=== PATIENT | male | born 1940 | race Caucasian/White ===

== ENCOUNTER 2018-09-28 11:08 | Inpatient (IN) | payer MEDICARE ==
[2018-09-28 11:17] VITALS: BMI 15.3
[2018-09-28] MEDS ORDERED: Sodium Chloride 0.9% 1,000 ML IV ONE (11:22)
[2018-09-28] MEDS ORDERED: Sodium Chloride 0.9% 1,000 ML ONE (11:47)
[2018-09-28 11:55] LABS: INR 1.2; PROTHROMBIN TIME 12.9 SECONDS (9.7-12.2)
[2018-09-28] MEDS ORDERED: cefTRIAXone IV 1 gm in Dextros 50 ML IV ONE (12:06)
[2018-09-28] MEDS ORDERED: Azithromycin 500 MG in Sodium Chloride 0.9% 250 ML IVPB STA (12:06)
[2018-09-28 12:13] LABS: MEAN CELL VOLUME 86.2 fL (80.0-94.0); MEAN CORPUSCULAR HGB CONC 31.3 g/dL (33.0-37.0); MEAN PLATELET VOLUME 11.1 fL (7.2-11.7); RBC 1.69 Mil/uL (4.40-5.90); RED CELL DISTRIBUTION WIDTH 18.2 % (11.5-14.5); WHITE BLOOD COUNT 2.8 K/uL (4.8-10.8)
[2018-09-28 12:17] LABS: B-TYPE NATRIURETIC PEPTIDE 2530 pg/mL (0-900)
[2018-09-28 12:22] LABS: HEMOGLOBIN 4.6 g/dL (12.0-18.0); PLATELET COUNT 13 K/uL (130-400)
[2018-09-28 12:23] LABS: ALB/GLOB RATIO 0.9 (1.0-2.1); ALBUMIN 2.7 g/dL (3.5-5.0); ALT/SGPT 30 U/L (21-72); AST/SGOT 40 U/L (17-59); BLOOD UREA NITROGEN 26 mg/dL (9-20); GFR NON-AFRICAN AMERICAN 59
[2018-09-28] MEDS ORDERED: Azithromycin 500mg/250ML NS 500 MG/250 ML BAG IVPB ONE (12:38)
[2018-09-28] MEDS ORDERED: cefTRIAXone 1 gm 1 GM/100 ML BAG IVPB ONE (12:39)
[2018-09-28] MEDS ORDERED: Iodixanol 320 MG/ML 100 ML BOTTLE IV ONE (12:48)
[2018-09-28 12:49] LABS: NEUT # 0.6 K/uL (1.8-7.0)
[2018-09-28 12:50] LABS: LYMPH # 0.5 K/uL (1.0-4.3); MONO # 1.7 K/uL (0.0-0.8)
[2018-09-28 13:01] LABS: BANDS 2 % (0-2); NEUTROPHIL 22 % (50-75); NUCLEATED RED BLOOD CELL 19 % (0-0); REACTIVE LYMPHOCYTES 4 % (0-0); TOTAL CELLS COUNTED 50
[2018-09-28 13:02] LABS: ANISOCYTOSIS MODERATE; HYPOCHROMIC MODERATE; MICROCYTOSIS SLIGHT; PLATELET ESTIMATE MARKEDLY DECREASED (NORMAL); POIKILOCYTOSIS MODERATE
[2018-09-28 13:03] LABS: ACANTHOCYTES SLIGHT; OVALOCYTES SLIGHT; TARGET CELLS SLIGHT; TEARDROP CELLS SLIGHT
[2018-09-28 13:04] LABS: LARGE PLATELETS PRESENT; LYMPHOCYTE 30 % (20-40); MONOCYTE 42 % (0-10); POLYCHROMIC SLIGHT
--- NOTE | 2018-09-28 13:12 | C.PDOC ---
History Of Present Illness 77 y/o male presents to the ER for evaluation after he was found to have hemoglobin levels 5.5 by his PMD. His PMD, Dr. Krissy Zuniga referred him to the ER. Patient states that Denies having fever, chills, CP, SOB, and other com plaints at this time. Of note, patient has history of cigarette smoking, he quit 10 years ago. Time Seen by Provider: 09/28/18 11:19 Chief Complaint (Nursing): Syncope History Per: Patient History/Exam Limitations: no limitations Onset/Duration Of Symptoms: Days Current Symptoms Are (Timing): Still Present Past Medical History Reviewed: Historical Data, Nursing Documentation, Vital Signs Vital Signs: Last Vital Signs Temp 97.5 F L 09/28/18 11:17 Pulse 115 H 09/28/18 11:17 Resp 18 09/28/18 11:25 BP 116/45 L 09/28/18 11:17 Pulse Ox 100 09/28/18 11:25 - Medical History PMH: No Chronic Diseases Surgical History: No Surg Hx Family History: States: No Known Family Hx - Social History Hx Alcohol Use: No Hx Substance Use: No - Immunization History Hx Tetanus Toxoid Vaccination: No Hx Influenza Vaccination: No Hx Pneumococcal Vaccination: No Review Of Systems Except As Marked, All Systems Reviewed And Found Negative. Constitutional: Positive for: Weakness. Negative for: Fever, Chills Cardiovascular: Negative for: Chest Pain Respiratory: Negative for: Shortness of Breath Physical Exam - Physical Exam Appears: Chronically Ill, Other (emaciated) Skin: Normal Color, Warm, Dry Head: Other (bilateral temporal wasting) Eye(s): bilateral: Normal Inspection Nose: Normal Oral Mucosa: Moist Neck: Supple Chest: Symmetrical Cardiovascular: Rhythm Regular Respiratory: Normal Breath Sounds, No Rales, No Rhonchi, No Wheezing Gastrointestinal/Abdominal: Soft, No Tenderness, No Guarding, No Rebound, Other (thin abdomen) Extremity: Normal ROM, Other (no edema to bilateral lower extremities) Neurological/Psych: Oriented x3, Normal Speech ED Course And Treatment - Laboratory Results Result Diagrams: 09/28/18 12:10 09/28/18 11:39 Lab Interpretation: Abnormal (occult stool blood +) ECG: Interpreted By Pr ECG Rhythm: Sinus Tachycardia ECG Interpretation: Abnormal Rate From EC O2 Sat by Pulse Oximetry: 100 (RA) Pulse Ox Interpretation: Normal - Radiology CXR: Interpreted by Me CXR Interpretation: Yes: Infiltrates (? RUL PNA vs mass) Progress Note: Labs, CXR, and UA ordered. Patient treated with IV Fluids and Rocephin IV. Reevaluation Time: 14:54 Reassessment Condition: Improved - Physician Consult Information Outcome Of Conversation: 1445: d/w Dr. Montoya- Medicine Vending Machine Attendant, covering pt's for Dr. Yanez. ok to tele Obs Medical Decision Making Medical Decision Making: RUL PNA empiric abx RUL Mass noted on CT no PE heme/onc consult consider bronchoscopy Symptomatic anemia hgb 4.5 Blood tx's started in ED GIB Guaiac + Consider gastritis vs lower GIB, ie colon CA as primary Protonix IV empirically Code Status: d/w pt and roderick @ bedside FULL CODE for now Disposition Doctor Will See Patient In The: Hospital Counseled Patient/Family Regarding: Studies Performed, Diagnosis - Disposition Disposition: HOSPITALIZED Disposition Time: 14:58 Condition: FAIR Forms: [facility] ([place]) - Clinical Impression Clinical Impression: Lung mass, Pneumonia, Symptomatic anemia - Scribe Statement The provider has reviewed the documentation as recorded by the Kalee Valle Provider Attestation: All medical record entries made by the Scribe were at my direction and personally dictated by me. I have reviewed the chart and agree that the record accurately reflects my personal performance of the history, physical exam, medical decision making, and the department course for this patient. I have also personally directed, reviewed, and agree with the discharge instructions and disposition.
--- NOTE | 2018-09-28 13:25 | RAD ---
Date of service: 09/28/2018 PROCEDURE: CHEST RADIOGRAPH, 1 VIEW HISTORY: SOB COMPARISON: None available. FINDINGS: LUNGS: Right upper lobe traction bronchiectasis with coalescing patchy pleural parenchymal opacity-; infiltrate, mass, scar or combination of the above are considerations. Granulomatous changes right mid and lower lung zone. Perihilar bullous emphysematous like changes. PLEURA: No pneumothorax or pleural fluid seen. CARDIOVASCULAR: There is presence of aortic atherosclerotic calcification on x-ray. Mild cardiomegaly. No suspect pulmonary venous congestion OSSEOUS STRUCTURES: No significant abnormalities. VISUALIZED UPPER ABDOMEN: Normal. OTHER FINDINGS: None. IMPRESSION: Right upper lobe traction bronchiectasis with the probable granulomatous disease. Concomitant right pleural parenchymal pathology here suggested-infiltrate, mass, scar or combination of the above are considerations. Consider CT for further evaluation Other findings as above.
--- NOTE | 2018-09-28 14:17 | CT ---
Date of service: 09/28/2018 CTA chest PE protocol Indication: RUL PNA, ? pericardial effusion, ? CA/mets Technique: Contiguous axial images were obtained through the chest with intravenous contrast enhancement. Sagittal and coronal reconstructions were generated and reviewed. This CT exam was performed using 1 or more of the following dose reduction techniques: Automated exposure control, adjustment of the MAA and/or kV according to patient size, and/or use of iterative reconstruction technique. IV contrast: 100 mL Visipaque 320 Radiation dose (DLP): 205.13 MGy-cm. Comparison: Chest x-ray performed 09/28/18 Findings: Cardiomegaly. Small pericardial effusion. Atherosclerotic calcifications of the aorta. No large central or segmental pulmonary embolus evident. Emphysematous changes. Biapical pleural thickening. Bilateral upper lobe bulla. Abnormal right upper lobe spiculated/irregular opacities possibly malignant neoplasm or consolidation such as pneumonia. Calcifications are evident in this region, as are ground-glass opacities and bronchiectasis. Evidence of chronic interstitial fibrosis. Small bilateral pleural effusions and dependent atelectasis. No pneumothorax. Nodular opacities measuring approximately 6 mm in the left upper lobe (series 4, image 34) and 3 mm in the lingula (64). More localized ground-glass opacities noted in the left lower lobe (image 75). Limited visualized portions of the upper abdomen: Bilateral adrenal gland hypertrophy. Small hiatal hernia/distal esophageal wall thickening. 4 mm T11 vertebral body sclerotic focus, possibly bone island. Osseous demineralization. Degenerative changes. Impression: No large central or segmental pulmonary embolus identified. Abnormal appearance of the right upper lobe as described above. Recommend comparison to prior outside imaging. Malignant neoplasm or pneumonia remain considerations. Correlate with clinical status. Nodular opacities measuring approximately 6 mm in the left upper lobe and 3 mm in the lingula. More localized ground-glass rounded opacity noted in the left lower lobe. Recommend further evaluation with biopsy, PET- CT, or follow-up CT at 3 months, and 9 months, and 24 months. Evidence of prior granulomatous infection. Evidence of chronic interstitial fibrosis. Bilateral adrenal gland hypertrophy. 4 mm T11 vertebral body sclerotic focus, possibly bone island. Additional findings as above.
--- NOTE | 2018-09-28 15:58 | CP.PCM.HP ---
History of Present Illness - History of Present Illness History of Present Illness: H&P for Dr. Montoya 77y M w/ no PMHx presented to ED following referral by PMD for low Hgb. Pt states he has been feeling weak and fatigue for the past couple of weeks. It has slowly increased in intensity that prompted a visit to his PMD. Patient had blood work performed yesterday and was notified today that he should come to the ED for low Hgb. Patient states he has had normal 1 to 2 normal bowel movements per day, with no dark tarry or bloody stools present. Patient admits to a approximately 5 lb weight loss over the past week with a decreased sense of appetite. Additionally patient denies any nausea or vomiting. Patient states he has had a dry, non productive cough for the past couple of weeks associated with subjective fevers and chills. After taking OTC cold medication, patient admits to resolution of the symptoms. Patient denies chest pain, abdominal pain, nausea, vomiting, SOB, headaches, vision changes, diarrhea, constipation. PMD: Rosa Zuniga PMHx: Denies Meds: Denies PSHx: Denies Allergies: NKDA Social: smoked cigarets for 30+ years, denies ETOH, drug use FHx: Mother naturally Father: complications 2/2 to smoking Full Code Family Contact Information: : [place] [phone] Daughter: Noemy [phone] Daughter Maggi [phone] Present on Admission - Present on Admission Any Indicators Present on Admission: No Review of Systems - Constitutional Constitutional: Chills, Fever, Weight Loss, Weakness. absent: Headache - EENT Eyes: absent: Blurred Vision Ears: absent: Decreased Hearing, Ear Discharge Nose/Mouth/Throat: absent: Bleeding Gums, Mouth Pain - Cardiovascular Cardiovascular: absent: Chest Pain, Leg Edema, Lightheadedness, Pedal Edema - Respiratory Respiratory: absent: Dyspnea, Hemoptysis, Wheezing - Gastrointestinal Gastrointestinal: absent: Abdominal Pain, Constipation, Diarrhea, Loose Stools, Melena, Vomiting - Genitourinary Genitourinary: absent: Change in Urinary Stream, Hematuria, Urinary Frequency - Musculoskeletal Musculoskeletal: absent: Abnormal Gait, Arthralgias - Integumentary Integumentary: absent: Bleeding Lesions - Neurological Neurological: Weakness. absent: Burning Sensations, Numbness, Headaches, Loss of Vision - Psychiatric Psychiatric: absent: Behavioral Changes, Confusion, Depression - Endocrine Endocrine: absent: Heat Intolorance, Polydipsia, Polyuria Past Patient History - Infectious Disease Hx of Infectious Diseases: None - Past Social History Smoking Status: Former Smoker - PSYCHIATRIC Hx Substance Use: No - SURGICAL HISTORY Hx Surgeries: No - ANESTHESIA Hx Anesthesia: No Meds Allergies/Adverse Reactions: Allergies Allergy/AdvReac Type Severity Reaction Status Date / Time No Known Allergies Allergy Verified 09/28/18 11:16 Physical Exam - Constitutional Appears: Non-toxic - Head Exam Head Exam: ATRAUMATIC, NORMAL INSPECTION, NORMOCEPHALIC - Eye Exam Eye Exam: EOMI, Normal appearance Pupil Exam: NORMAL ACCOMODATION, PERRL Additional comments: pale sclera - ENT Exam ENT Exam: Mucous Membranes Moist - Neck Exam Neck exam: Negative for: Lymphadenopathy - Respiratory Exam Respiratory Exam: Clear to Auscultation Bilateral, NORMAL BREATHING PATTERN. absent: Chest Wall Tenderness, Rales, Rhonchi, Wheezes - Cardiovascular Exam Cardiovascular Exam: +S1, +S2. absent: Systolic Murmur - GI/Abdominal Exam GI & Abdominal Exam: Normal Bowel Sounds, Soft. absent: Tenderness - Rectal Exam Rectal Exam: absent: Bloody Stool, Hemorrhoids Additional comments: Skin tag/flap para anal region No mass protrubrance No palpable masses - Extremities Exam Extremities exam: Positive for: full ROM, normal inspection. Negative for: calf tenderness, pedal edema - Back Exam Back exam: absent: CVA tenderness (L), CVA tenderness (R) - Neurological Exam Neurological exam: Alert, Normal Gait, Oriented x3 - Psychiatric Exam Psychiatric exam: Normal Affect, Normal Mood - Skin Skin Exam: Dry, Normal Color, Warm Results - Vital Signs Recent Vital Signs: Last Vital Signs Temp 99.1 F 09/28/18 15:20 Pulse 91 H 09/28/18 15:20 Resp 18 09/28/18 11:25 BP 112/43 L 09/28/18 15:20 Pulse Ox 100 09/28/18 15:20 - Labs Result Diagrams: 09/28/18 12:10 09/28/18 11:39 Labs: Laboratory Results - last 24 hr 09/28/18 09/28/18 09/28/18 11:39 11:39 11:39 WBC RBC Hgb Hct MCV MCH MCHC RDW Plt Count MPV Neut % (Auto) Lymph % (Auto) [place] % (Auto) Eos % (Auto) Baso % (Auto) Neut # (Auto) Lymph # (Auto) [place] # (Auto) Eos # (Auto) Baso # (Auto) Neutrophils % (Manual) Band Neutrophils % Lymphocytes % (Manual) Reactive Lymphs % Monocytes % (Manual) Nucleated RBC % Platelet Estimate Large Platelets Polychromasia Hypochromasia (manual) Poikilocytosis (manual Anisocytosis (manual) Microcytosis (manual) Target Cells Tear Drop Cells Ovalocytes Acanthocytes (Spur) PT 12.9 H INR 1.2 APTT 25 D-Dimer, Quantitative 1375 H Sodium 133 Potassium 4.3 Chloride 101 Carbon Dioxide 22 Anion Gap 14 BUN 26 H Creatinine 1.2 Est GFR ( Amer) > 60 Est GFR (Non-Af Amer) 59 Random Glucose 134 H Calcium 8.0 L Total Bilirubin 0.7 AST 40 ALT 30 Alkaline Phosphatase 80 Troponin I 0.0150 NT-Pro-B Natriuret Pep 2530 H Total Protein 5.7 L Albumin 2.7 L Globulin 3.0 Albumin/Globulin Ratio 0.9 L Stool Occult Blood Blood Type B POSITIVE Blood Type Confirm B POSITIVE Antibody Screen Negative 09/28/18 09/28/18 12:10 14:32 WBC 2.8 L RBC 1.69 L Hgb 4.6 L* Hct 14.6 L MCV 86.2 MCH 27.0 MCHC 31.3 L RDW 18.2 H Plt Count 13 L* MPV 11.1 Neut % (Auto) 23.0 L Lymph % (Auto) 17.0 L [place] % (Auto) 60.0 H Eos % (Auto) 0.0 Baso % (Auto) 0.0 Neut # (Auto) 0.6 L Lymph # (Auto) 0.5 L [place] # (Auto) 1.7 H Eos # (Auto) 0.0 Baso # (Auto) 0.0 Neutrophils % (Manual) 22 L Band Neutrophils % 2 Lymphocytes % (Manual) 30 Reactive Lymphs % 4 H Monocytes % (Manual) 42 H Nucleated RBC % 19 H Platelet Estimate Markedly decreased L Large Platelets Present Polychromasia Slight Hypochromasia (manual) Moderate Poikilocytosis (manual Moderate Anisocytosis (manual) Moderate Microcytosis (manual) Slight Target Cells Slight Tear Drop Cells Slight Ovalocytes Slight Acanthocytes (Spur) Slight PT INR APTT D-Dimer, Quantitative Sodium Potassium Chloride Carbon Dioxide Anion Gap BUN Creatinine Est GFR ( Amer) Est GFR (Non-Af Amer) Random Glucose Calcium Total Bilirubin AST ALT Alkaline Phosphatase Troponin I NT-Pro-B Natriuret Pep Total Protein Albumin Globulin Albumin/Globulin Ratio Stool Occult Blood Positive H Blood Type Blood Type Confirm Antibody Screen Assessment & Plan - Assessment and Plan (Free Text) Assessment: 77 y M w/ no PMHx: presents to ED for weakness, in ED found to be pancytopenic: Pancytopenia - WBC 2.8, Hgb 4.6, Plt 13 - 1 X PRBC in ED - 2 X PRBC ordered & 1 plt - CT: Emphysematous changes. Biapical pleural thickening. Bilateral upper lobe bulla. Abnormal right upper lobe spiculated/irregular opacities possibly maligna nt neoplasm or consolidation such as pneumonia. Calcifications are evident in this region, as are ground-glass opacities and bronchiectasis. Evidence of chronic interstitial fibrosis. Small bilateral pleural effusions and dependent atelectasis. No pneumothorax. Nodular opacities measuring approximately 6 mm in the left upper lobe (series 4, image 34) and 3 mm in the lingula (64). More localized ground-glass opacities noted in the left lower lobe (image 75). Limited visualized portions of the upper abdomen: Bilateral adrenal gland hypertrophy. Small hiatal hernia/distal esophageal wall thickening. No large central or segmental pulmonary embolus identified. Correlate with clinical status. Nodular opacities measuring approximately 6 mm in the left upper lobe and 3 mm in the lingula. More localized ground-glass rounded opacity noted in the left lower lobe. Recommend further evaluation with biopsy, PET- CT, or follow-up CT at 3 months, and 9 months, and 24 months. - CXR: Right upper lobe traction bronchiectasis with the probable granulomatous disease. Concomitant right pleural parenchymal pathology here suggested- infiltrate, mass, scar or combination of the above are considerations. Consider CT for further evaluation - F/u Heme/Onc Dr. Bobby recs - F/u GI Dr. Cox recs - F/u critical care, Dr. Thurtson recs - F/u HIV - F/u sputum sample - F/u legionella - F/u strep pneumo - F/u mycoplasma - F/u quantiferon gold - F/u procal - F/u ESR GI Bleed - Stool occult positive - Hgb 4.6 - protonox 40mg IVP daily - NPO - F/u GI Dr. Cox recs LBBB - EKG reveals LBBB, unsure if new onset - currently asymptomatic - trops X 1 negative - will consider cardiology consult Prophylaxis - DVT contraindicated due to GI bleed - GI: protonix 40 mg IVP will d/w Dr. Lindsay Costello, PGY1
[2018-09-28 16:10] LABS: SQUAMOUS EPITHIAL < 1 /hpf (0-5); URINE BILIRUBIN NEGATIVE (NEGATIVE); URINE BLOOD NEGATIVE (NEGATIVE); URINE CLARITY Clear (Clear); URINE COLOR Yellow (YELLOW); URINE GLUCOSE (UA) NORMAL (Normal); URINE LEUKOCYTE ESTERASE NEG Leu/uL (Negative); URINE PROTEIN NEGATIVE (NEGATIVE); URINE UROBILINOGEN NORMAL mg/dL (0.2-1.0)
[2018-09-28 16:16] LABS: GRANULAR CAST 2 /lpf (0-1)
--- NOTE | 2018-09-28 18:14 | CP.PCM.CON ---
History of Present Illness - History of Present Illness History of Present Illness: reason for consultation: lung mass 77-year-old male with no significant past medical history presented to emergency room complaining of fatigue and generalized weakness for the past few weeks. In the emergency room patient found to be pancytopenic. CAT scan of the chest consistent with right upper lung spiculated mass, infiltrateand bronchiectasis. Patient denies fever or chills, denies night sweats. Complaining of dry cough that is both during the day and at night PMHx: Denies Meds: Denies PSHx: Denies Allergies: NKDA Social: smoked cigarets for 30+ years, denies ETOH, drug use FHx: Mother naturally Father: complications 2/2 to smoking Review of Systems - Review of Systems All systems: reviewed and no additional remarkable complaints except - Constitutional Constitutional: Fatigue (complaining of dry cough) Past Patient History - Infectious Disease Hx of Infectious Diseases: None - Past Medical History & Family History Past Medical History?: Yes - Past Social History Smoking Status: Former Smoker - CARDIAC Hx Cardiac Disorders: No - PULMONARY Hx Respiratory Disorders: No - NEUROLOGICAL Hx Neurological Disorder: No - HEENT Hx HEENT Problems: No - ENDOCRINE/METABOLIC Hx Endocrine Disorders: No - HEMATOLOGICAL/ONCOLOGICAL Hx Blood Disorders: Yes Other/Comment: Hgb 4.6 - INTEGUMENTARY Hx Dermatological Problems: No - MUSCULOSKELETAL/RHEUMATOLOGICAL Hx Musculoskeletal Disorders: No - GASTROINTESTINAL Hx Gastrointestinal Disorders: Yes Other/Comment: (+) stool occult blood - GENITOURINARY/GYNECOLOGICAL Hx Genitourinary Disorders: No - PSYCHIATRIC Hx Substance Use: No - SURGICAL HISTORY Hx Surgeries: No - ANESTHESIA Hx Anesthesia: No Meds Allergies/Adverse Reactions: Allergies Allergy/AdvReac Type Severity Reaction Status Date / Time No Known Allergies Allergy Verified 09/28/18 11:16 - Medications Medications: Current Medications Azithromycin 500 mg/ Sodium (Chloride) 250 mls @ 250 mls/hr IVPB DAILY ELDA; Protocol Ceftriaxone Sodium (Rocephin Iv 1 Gm Duplex) 50 mls @ 100 mls/hr IVPB Q12H ELDA; Protocol Physical Exam - Head Exam Head Exam: ATRAUMATIC, NORMOCEPHALIC - ENT Exam ENT Exam: Mucous Membranes Moist - Neck Exam Neck exam: Positive for: Normal Inspection - Respiratory Exam Respiratory Exam: Decreased Breath Sounds - Cardiovascular Exam Cardiovascular Exam: REGULAR RHYTHM - GI/Abdominal Exam GI & Abdominal Exam: Normal Bowel Sounds, Soft Results - Vital Signs Recent Vital Signs: Last Vital Signs Temp 98.6 F 09/28/18 16:45 Pulse 87 09/28/18 16:45 Resp 18 09/28/18 16:45 BP 105/57 L 09/28/18 16:45 Pulse Ox 100 09/28/18 17:04 - Labs Result Diagrams: 09/29/18 02:30 09/29/18 07:11 Labs: Laboratory Results - last 24 hr 09/28/18 09/28/18 09/28/18 11:39 11:39 11:39 WBC RBC Hgb Hct MCV MCH MCHC RDW Plt Count MPV Neut % (Auto) Lymph % (Auto) [place] % (Auto) Eos % (Auto) Baso % (Auto) Neut # (Auto) Lymph # (Auto) [place] # (Auto) Eos # (Auto) Baso # (Auto) Neutrophils % (Manual) Band Neutrophils % Lymphocytes % (Manual) Reactive Lymphs % Monocytes % (Manual) Nucleated RBC % Platelet Estimate Large Platelets Polychromasia Hypochromasia (manual) Poikilocytosis (manual Anisocytosis (manual) Microcytosis (manual) Target Cells Tear Drop Cells Ovalocytes Acanthocytes (Spur) PT 12.9 H INR 1.2 APTT 25 D-Dimer, Quantitative 1375 H Sodium 133 Potassium 4.3 Chloride 101 Carbon Dioxide 22 Anion Gap 14 BUN 26 H Creatinine 1.2 Est GFR ( Amer) > 60 Est GFR (Non-Af Amer) 59 Random Glucose 134 H Calcium 8.0 L Total Bilirubin 0.7 AST 40 ALT 30 Alkaline Phosphatase 80 Troponin I 0.0150 NT-Pro-B Natriuret Pep 2530 H Total Protein 5.7 L Albumin 2.7 L Globulin 3.0 Albumin/Globulin Ratio 0.9 L Urine Color Urine Clarity Urine pH Ur Specific [place] Urine Protein Urine Glucose (UA) Urine Ketones Urine Blood Urine Nitrate Urine Bilirubin Urine Urobilinogen Ur Leukocyte Esterase Urine WBC (Auto) Urine RBC (Auto) Ur Squamous Epith Cells Granular Casts (Auto) Stool Occult Blood Blood Type B POSITIVE Blood Type Confirm B POSITIVE Antibody Screen Negative 09/28/18 09/28/18 09/28/18 12:10 14:32 15:54 WBC 2.8 L RBC 1.69 L Hgb 4.6 L* Hct 14.6 L MCV 86.2 MCH 27.0 MCHC 31.3 L RDW 18.2 H Plt Count 13 L* MPV 11.1 Neut % (Auto) 23.0 L Lymph % (Auto) 17.0 L [place] % (Auto) 60.0 H Eos % (Auto) 0.0 Baso % (Auto) 0.0 Neut # (Auto) 0.6 L Lymph # (Auto) 0.5 L [place] # (Auto) 1.7 H Eos # (Auto) 0.0 Baso # (Auto) 0.0 Neutrophils % (Manual) 22 L Band Neutrophils % 2 Lymphocytes % (Manual) 30 Reactive Lymphs % 4 H Monocytes % (Manual) 42 H Nucleated RBC % 19 H Platelet Estimate Markedly decreased L Large Platelets Present Polychromasia Slight Hypochromasia (manual) Moderate Poikilocytosis (manual Moderate Anisocytosis (manual) Moderate Microcytosis (manual) Slight Target Cells Slight Tear Drop Cells Slight Ovalocytes Slight Acanthocytes (Spur) Slight PT INR APTT D-Dimer, Quantitative Sodium Potassium Chloride Carbon Dioxide Anion Gap BUN Creatinine Est GFR ( Amer) Est GFR (Non-Af Amer) Random Glucose Calcium Total Bilirubin AST ALT Alkaline Phosphatase Troponin I NT-Pro-B Natriuret Pep Total Protein Albumin Globulin Albumin/Globulin Ratio Urine Color Yellow Urine Clarity Clear Urine pH 5.0 Ur Specific [place] 1.033 H Urine Protein Negative Urine Glucose (UA) Normal Urine Ketones Trace Urine Blood Negative Urine Nitrate Negative Urine Bilirubin Negative Urine Urobilinogen Normal Ur Leukocyte Esterase Neg Urine WBC (Auto) 1 Urine RBC (Auto) 1 Ur Squamous Epith Cells < 1 Granular Casts (Auto) 2 Stool Occult Blood Positive H Blood Type Blood Type Confirm Antibody Screen Assessment & Plan (1) Lung mass Status: Acute Comment: biopsy once thrombocytopenia corrected. Sputum for culture and sensitivity. Transfuse packed RBCs and platelets. Sputum AFB. Bone marrow biopsy (2) Pancytopenia Status: Acute (3) Pneumonia Status: Acute
[2018-09-28] MEDS ORDERED: Albuterol-Ipratrop 3 mg / 0.5 (3 ml) UD INH PRN (19:21)
[2018-09-29] MEDS: cefTRIAXone IV 1 gm in Dextros 50 ML IVPB SCH ×2 (01:28→14:00)
[2018-09-29 02:35] LABS: HEMOGLOBIN 8.3 g/dL (12.0-18.0); LYMPH # 0.4 K/uL (1.0-4.3); LYMPH % 12.7 % (20.0-40.0); MEAN CELL VOLUME 85.7 fL (80.0-94.0); MEAN CORPUSCULAR HEMOGLOBIN 27.7 pg (27.0-31.0); MEAN CORPUSCULAR HGB CONC 32.3 g/dL (33.0-37.0); MONO # 2.4 K/uL (0.0-0.8); NEUT # 0.5 K/uL (1.8-7.0); NEUT % 16.3 % (50.0-75.0); NRBC % 17.4 % (0.0-2.0); RBC 3.01 Mil/uL (4.40-5.90); RED CELL DISTRIBUTION WIDTH 15.7 % (11.5-14.5); WHITE BLOOD COUNT 3.3 K/uL (4.8-10.8)
[2018-09-29 02:50] LABS: IRON 111 ug/dL (49-181)
[2018-09-29 02:59] LABS: % IRON SATURATION 63 (20-55); TOTAL IRON BINDING CAPACITY 177 ug/dL (250-450)
[2018-09-29 03:35] LABS: PLATELET COUNT 11 K/uL (130-400)
[2018-09-29 03:48] LABS: ANISOCYTOSIS MARKED; LYMPHOCYTE 19 % (20-40); MONOCYTE 48 % (0-10); NEUTROPHIL 18 % (50-75); NUCLEATED RED BLOOD CELL 25 % (0-0); PLATELET ESTIMATE MARKEDLY DECREASED (NORMAL); POIKILOCYTOSIS MARKED; POLYCHROMIC MODERATE; REACTIVE LYMPHOCYTES 15 % (0-0); TOTAL CELLS COUNTED 100
[2018-09-29 03:49] LABS: TEARDROP CELLS MODERATE
[2018-09-29 03:57] LABS: FOLATE 7.7 ng/mL
[2018-09-29 07:50] LABS: ALB/GLOB RATIO 0.7 (1.0-2.1); ALBUMIN 2.2 g/dL (3.5-5.0); ALT/SGPT 27 U/L (21-72); AST/SGOT 23 U/L (17-59); BLOOD UREA NITROGEN 21 mg/dL (9-20); CALCIUM 7.6 mg/dl (8.6-10.4); GFR NON-AFRICAN AMERICAN 59
--- NOTE | 2018-09-29 09:12 | CP.PCM.PN ---
<Harpreet Masterson - Last Filed: 09/29/18 13:41> Subjective - Date & Time of Evaluation Date of Evaluation: 09/29/18 Time of Evaluation: 09:12 - Subjective Subjective: Medicine Note Dr Montoya Pt seen and examined at bedside. Pt denies any acute events overnight. Pt unerstands current status and agrees with plan going forward for workup. denies cp sob fc nv signs of bleeding or bruising overnight, LOC or dizziness Objective - Vital Signs/Intake and Output Vital Signs (last 24 hours): Temp Pulse Resp BP Pulse Ox 97.5 F L 84 18 114/66 100 09/29/18 07:00 09/29/18 08:00 09/29/18 07:00 09/29/18 07:00 09/28/18 23:15 Intake and Output: 09/29/18 09/29/18 06:59 18:59 Intake Total 950 Output Total 50 Balance 900 - Medications Medications: Current Medications Albuterol/Ipratropium (Duoneb 3 Mg/0.5 Mg (3 Ml) Ud) 3 ml INH RQ6 PRN PRN Reason: Shortness of Breath Azithromycin 500 mg/ Sodium (Chloride) 250 mls @ 250 mls/hr IVPB DAILY ELDA; Protocol Ceftriaxone Sodium (Rocephin Iv 1 Gm Duplex) 50 mls @ 100 mls/hr IVPB Q12H ELDA; Protocol Last Admin: 09/29/18 01:28 Dose: 100 mls/hr Pantoprazole Sodium (Protonix Inj) 40 mg IVP DAILY ELDA - Labs Labs: 09/29/18 02:30 09/29/18 07:11 PT 12.9 SECONDS (9.7-12.2) H 09/28/18 11:39 INR 1.2 09/28/18 11:39 APTT 25 SECONDS (21-34) 09/28/18 11:39 - Additional Findings Additional findings: - Constitutional Appears: Non-toxic - Head Exam Head Exam: ATRAUMATIC, NORMAL INSPECTION, NORMOCEPHALIC - Eye Exam Eye Exam: EOMI, Normal appearance Pupil Exam: NORMAL ACCOMODATION, PERRL Additional comments: pale sclera - ENT Exam ENT Exam: Mucous Membranes Moist - Neck Exam Neck exam: Negative for: Lymphadenopathy - Respiratory Exam Respiratory Exam: Clear to Auscultation Bilateral, NORMAL BREATHING PATTERN. absent: Chest Wall Tenderness, Rales, Rhonchi, Wheezes - Cardiovascular Exam Cardiovascular Exam: +S1, +S2. absent: Systolic Murmur - GI/Abdominal Exam GI & Abdominal Exam: Normal Bowel Sounds, Soft. absent: Tenderness - Rectal Exam Rectal Exam: absent: Bloody Stool, Hemorrhoids Additional comments: Skin tag/flap para anal region No mass protrubrance No palpable masses - Extremities Exam Extremities exam: Positive for: full ROM, normal inspection. Negative for: calf tenderness, pedal edema - Back Exam Back exam: absent: CVA tenderness (L), CVA tenderness (R) - Neurological Exam Neurological exam: Alert, Normal Gait, Oriented x3 - Psychiatric Exam Psychiatric exam: Normal Affect, Normal Mood - Skin Skin Exam: Dry, Normal Color, Warm Assessment and Plan - Assessment and Plan (Free Text) Assessment: 77 y M w/ no PMHx: presents to ED for weakness, in ED found to be pancytopenic: Pancytopenia - WBC 2.8, Hgb 4.6, Plt 13 - transfused: 2 X PRBCs & 1 plt - peripheral smear shows moderate teardrop cells possible myelofibrosis - CT: Emphysematous changes. Biapical pleural thickening. Bilateral upper lobe bulla. Abnormal right upper lobe spiculated/irregular opacities possibly malig nant neoplasm or consolidation such as pneumonia. Calcifications are evident in this region, as are ground-glass opacities and bronchiectasis. Evidence of chronic interstitial fibrosis. Small bilateral pleural effusions and dependent atelectasis. No pneumothorax. Nodular opacities measuring approximately 6 mm in the left upper lobe (series 4, image 34) and 3 mm in the lingula (64). More localized ground-glass opacities noted in the left lower lobe (image 75). Limited visualized portions of the upper abdomen: Bilateral adrenal gland hypertrophy. Small hiatal hernia/distal esophageal wall thickening. No large central or segmental pulmonary embolus identified. Correlate with clinical status. Nodular opacities measuring approximately 6 mm in the left upper lobe and 3 mm in the lingula. More localized ground-glass rounded opacity noted in the left lower lobe. Recommend further evaluation with biopsy, PET- CT, or follow-up CT at 3 months, and 9 months, and 24 months. - CXR: Right upper lobe traction bronchiectasis with the probable granulomatous disease. Concomitant right pleural parenchymal pathology here suggested- infiltrate, mass, scar or combination of the above are considerations. Consider CT for further evaluation - F/u Heme/Onc Dr. Diamante castellons - GI Dr. Cox recs: likely aplastic, resolve thrombocytopenia then scope in future - F/u critical care, Dr. Bertrand jo - Neg HIV - F/u sputum sample - F/u legionella - F/u strep pneumo - F/u mycoplasma - F/u quantiferon gold - F/u procal - F/u ESR GI Bleed - Stool occult positive - Hgb 4.6->8.4-> - protonox 40mg IVP daily - NPO - GI Dr. Cox recs: likely aplastic, no scope at this time, correct th rombocytopenia LBBB - EKG reveals LBBB, unsure if new onset - currently asymptomatic - trops X 1 negative - will consider cardiology consult Prophylaxis - DVT contraindicated due to GI bleed - GI: protonix 40 mg IVP <Andrzej Montoya Jr. - Last Filed: 10/10/18 15:22> Objective - Vital Signs/Intake and Output Vital Signs (last 24 hours): Temp Pulse Resp BP Pulse Ox 99.4 F 100 H 20 117/62 99 10/10/18 08:24 10/10/18 08:24 10/10/18 08:24 10/10/18 08:24 10/10/18 08:24 Intake and Output: 10/10/18 10/10/18 06:59 18:59 Intake Total 630 Output Total 2000 Balance -1370 - Medications Medications: Current Medications Acetaminophen (Tylenol 325mg Tab) 650 mg PO ONCE ONE Stop: 10/11/18 12:01 Diphenhydramine HCl (Benadryl) 25 mg IVP ONCE ONE Stop: 10/11/18 12:01 Diphenhydramine HCl (Benadryl) 25 mg IVP ONCE ONE Stop: 10/10/18 13:16 Docusate Sodium (Colace) 100 mg PO BID [facility] Last Admin: 10/10/18 10:37 Dose: Not Given Famotidine (Pepcid) 20 mg IVP ONCE ONE Stop: 10/11/18 14:01 Hydrocortisone (Anusol-Hc) [address] BID [facility] Last Admin: 10/10/18 10:38 Dose: 2.5 % Decitabine 30 mg/ Sodium (Chloride) 256 mls @ 256 mls/hr IV .Q1H ONE Stop: 10/11/18 13:29 Ondansetron HCl (Zofran Inj) 4 mg IVP DAILY@ONCE PRN PRN Reason: Nausea/Vomiting Pantoprazole Sodium (Protonix Inj) 40 mg IVP DAILY [facility] Last Admin: 10/10/18 10:36 Dose: 40 mg Saccharomyces Boulardii (Florastor) 250 mg PO BID [facility] Last Admin: 10/10/18 10:37 Dose: 250 mg Tamsulosin HCl (Flomax) 0.4 mg PO BID [facility] - Labs Labs: 10/10/18 08:04 10/10/18 08:04 PT 12.9 SECONDS (9.7-12.2) H 09/28/18 11:39 INR 1.2 09/28/18 11:39 APTT 25 SECONDS (21-34) 09/28/18 11:39 Attending/Attestation - Attestation I have personally seen and examined this patient.: Yes I have fully participated in the care of the patient.: Yes I have reviewed all pertinent clinical information, including history, physical exam and plan: Yes Notes (Text): 10/10/18 15:22 Reviewed resident note. Agree with findings and plan of care.
[2018-09-29] MEDS: Azithromycin 500 MG in Sodium Chloride 0.9% 250 ML IVPB SCH (10:22)
[2018-09-29] MEDS: Sodium Chloride 0.9% 1,000 ML IV SCH ×2 (10:25→20:38)
[2018-09-29 10:41] LABS: HEPATITIS B SURFACE AG Negative (NEGATIVE)
[2018-09-29 10:47] LABS: HEPATITIS A IGM NEGATIVE (NEGATIVE); HEPATITIS B CORE AB NEGATIVE (NEGATIVE)
[2018-09-29 10:59] LABS: HEPATITIS C ANTIBODY NEGATIVE (NEGATIVE)
[2018-09-29] MEDS ORDERED: Iodixanol 320 MG/ML 100 ML BOTTLE IV ONE (12:14)
--- NOTE | 2018-09-29 12:57 | CP.PCM.CON ---
History of Present Illness - History of Present Illness History of Present Illness: GI Service Consult CC: anemia with OB positive stool HPI: 77 year old man, previously healthy though pt is poor historian and never h ad reliable medical care, admitted yesterday for weakness, SINGH, and abnormal labs from his PCP. Found to be markedly pancytopenic. Denies overt bleeding, though stool tested positive for occult blood. Denies viral symptoms or recent medication use. Discussed with patient's daughter, and medical house staff. Review of Systems - Constitutional Constitutional: absent: Anorexia, Fever, Night Sweats - EENT Eyes: absent: Change in Vision - Cardiovascular Cardiovascular: Dyspnea on Exertion. absent: Chest Pain - Respiratory Respiratory: Dyspnea. absent: Cough - Gastrointestinal Gastrointestinal: absent: Abdominal Pain, Change in Bowel Habits, Constipation, Hematochezia, Melena - Genitourinary Genitourinary: absent: Change in Urinary Stream - Musculoskeletal Musculoskeletal: absent: Abnormal Gait - Integumentary Integumentary: absent: Bleeding Lesions - Neurological Neurological: absent: Abnormal Gait, Syncope - Psychiatric Psychiatric: absent: Anxiety, Depression - Hematologic/Lymphatic Hematologic: Easy Bruising Past Patient History - Infectious Disease Hx of Infectious Diseases: None - Past Medical History & Family History Past Medical History?: Yes - Past Social History Smoking Status: Former Smoker - CARDIAC Hx Cardiac Disorders: No - PULMONARY Hx Respiratory Disorders: No - NEUROLOGICAL Hx Neurological Disorder: No - HEENT Hx HEENT Problems: No - ENDOCRINE/METABOLIC Hx Endocrine Disorders: No - HEMATOLOGICAL/ONCOLOGICAL Hx Blood Disorders: Yes Other/Comment: Hgb 4.6 - INTEGUMENTARY Hx Dermatological Problems: No - MUSCULOSKELETAL/RHEUMATOLOGICAL Hx Musculoskeletal Disorders: No - GASTROINTESTINAL Hx Gastrointestinal Disorders: Yes Other/Comment: (+) stool occult blood - GENITOURINARY/GYNECOLOGICAL Hx Genitourinary Disorders: No - PSYCHIATRIC Hx Substance Use: No - SURGICAL HISTORY Hx Surgeries: No - ANESTHESIA Hx Anesthesia: No Meds Allergies/Adverse Reactions: Allergies Allergy/AdvReac Type Severity Reaction Status Date / Time No Known Allergies Allergy Verified 09/28/18 11:16 - Medications Medications: Current Medications Albuterol/Ipratropium (Duoneb 3 Mg/0.5 Mg (3 Ml) Ud) 3 ml INH RQ6 PRN PRN Reason: Shortness of Breath Azithromycin 500 mg/ Sodium (Chloride) 250 mls @ 250 mls/hr IVPB DAILY ELDA; Protocol Last Admin: 09/29/18 10:22 Dose: 250 mls/hr Ceftriaxone Sodium (Rocephin Iv 1 Gm Duplex) 50 mls @ 100 mls/hr IVPB Q12H ELDA; Protocol Last Admin: 09/29/18 01:28 Dose: 100 mls/hr Sodium Chloride (Sodium Chloride 0.9%) 1,000 mls @ 100 mls/hr IV .Q10H ELDA Last Admin: 09/29/18 10:25 Dose: 100 mls/hr Pantoprazole Sodium (Protonix Inj) 40 mg IVP DAILY ELDA Last Admin: 09/29/18 10:21 Dose: 40 mg Physical Exam - Constitutional Appears: Chronically Ill - Head Exam Head Exam: NORMOCEPHALIC - Eye Exam Eye Exam: absent: Scleral icterus - Neck Exam Neck exam: Negative for: Thyromegaly - Respiratory Exam Respiratory Exam: NORMAL BREATHING PATTERN - Cardiovascular Exam Cardiovascular Exam: REGULAR RHYTHM - GI/Abdominal Exam GI & Abdominal Exam: Normal Bowel Sounds, Soft. absent: Organomegaly, Tenderness Additional comments: + ecchymoses on abdominal wall - Extremities Exam Extremities exam: Positive for: normal inspection - Neurological Exam Neurological exam: Alert, Oriented x3 - Psychiatric Exam Psychiatric exam: Normal Affect Results - Vital Signs Recent Vital Signs: Last Vital Signs Temp 97.5 F L 09/29/18 07:00 Pulse 88 09/29/18 12:00 Resp 18 09/29/18 07:00 BP 114/66 09/29/18 07:00 Pulse Ox 100 09/28/18 23:15 - Labs Result Diagrams: 09/29/18 02:30 09/29/18 07:11 Labs: Laboratory Results - last 24 hr 09/28/18 09/28/18 09/28/18 11:39 12:10 14:32 WBC RBC Hgb Hct MCV MCH MCHC RDW Plt Count Manual Plt Count MPV Neut % (Auto) Lymph % (Auto) Bent % (Auto) Eos % (Auto) Baso % (Auto) Neut # (Auto) Lymph # (Auto) Bent # (Auto) Eos # (Auto) Baso # (Auto) Neutrophils % (Manual) 22 L Band Neutrophils % 2 Lymphocytes % (Manual) 30 Reactive Lymphs % 4 H Monocytes % (Manual) 42 H Nucleated RBC % 19 H Platelet Estimate Markedly decreased L Large Platelets Present Polychromasia Slight Hypochromasia (manual) Moderate Poikilocytosis (manual Moderate Anisocytosis (manual) Moderate Microcytosis (manual) Slight Target Cells Slight Tear Drop Cells Slight Ovalocytes Slight Acanthocytes (Spur) Slight Smear Path Review ESR Retic Count Fibrinogen Sodium Potassium Chloride Carbon Dioxide Anion Gap BUN Creatinine Est GFR ( Amer) Est GFR (Non-Af Amer) Random Glucose Calcium Phosphorus Magnesium Iron TIBC % Saturation Ferritin Total Bilirubin AST ALT Alkaline Phosphatase Lactate Dehydrogenase Total Protein Albumin Globulin Albumin/Globulin Ratio Vitamin B12 Folate Urine Color Urine Clarity Urine pH Ur Specific Cropsey Urine Protein Urine Glucose (UA) Urine Ketones Urine Blood Urine Nitrate Urine Bilirubin Urine Urobilinogen Ur Leukocyte Esterase Urine WBC (Auto) Urine RBC (Auto) Ur Squamous Epith Cells Granular Casts (Auto) Stool Occult Blood Positive H Hepatitis A IgM Ab Hep Bs Antigen Hep B Core IgM Ab Hepatitis C Antibody HIV 1&2 Antibody Screen Blood Type B POSITIVE Blood Type Confirm B POSITIVE Antibody Screen Negative 09/28/18 09/29/18 09/29/18 15:54 02:30 02:30 WBC RBC Hgb Hct MCV MCH MCHC RDW Plt Count Manual Plt Count MPV Neut % (Auto) Lymph % (Auto) Bent % (Auto) Eos % (Auto) Baso % (Auto) Neut # (Auto) Lymph # (Auto) Bent # (Auto) Eos # (Auto) Baso # (Auto) Neutrophils % (Manual) Band Neutrophils % Lymphocytes % (Manual) Reactive Lymphs % Monocytes % (Manual) Nucleated RBC % Platelet Estimate Large Platelets Polychromasia Hypochromasia (manual) Poikilocytosis (manual Anisocytosis (manual) Microcytosis (manual) Target Cells Tear Drop Cells Ovalocytes Acanthocytes (Spur) Smear Path Review ESR 58 H Retic Count 2.1 H Fibrinogen 380 Sodium Potassium Chloride Carbon Dioxide Anion Gap BUN Creatinine Est GFR ( Amer) Est GFR (Non-Af Amer) Random Glucose Calcium Phosphorus Magnesium Iron TIBC % Saturation Ferritin Total Bilirubin AST ALT Alkaline Phosphatase Lactate Dehydrogenase Total Protein Albumin Globulin Albumin/Globulin Ratio Vitamin B12 Folate Urine Color Yellow Urine Clarity Clear Urine pH 5.0 Ur Specific Cropsey 1.033 H Urine Protein Negative Urine Glucose (UA) Normal Urine Ketones Trace Urine Blood Negative Urine Nitrate Negative Urine Bilirubin Negative Urine Urobilinogen Normal Ur Leukocyte Esterase Neg Urine WBC (Auto) 1 Urine RBC (Auto) 1 Ur Squamous Epith Cells < 1 Granular Casts (Auto) 2 Stool Occult Blood Hepatitis A IgM Ab Hep Bs Antigen Hep B Core IgM Ab Hepatitis C Antibody HIV 1&2 Antibody Screen Blood Type Blood Type Confirm Antibody Screen 09/29/18 09/29/18 09/29/18 02:30 02:30 02:30 WBC RBC Hgb Hct MCV MCH MCHC RDW Plt Count Manual Plt Count MPV Neut % (Auto) Lymph % (Auto) Bent % (Auto) Eos % (Auto) Baso % (Auto) Neut # (Auto) Lymph # (Auto) Bent # (Auto) Eos # (Auto) Baso # (Auto) Neutrophils % (Manual) Band Neutrophils % Lymphocytes % (Manual) Reactive Lymphs % Monocytes % (Manual) Nucleated RBC % Platelet Estimate Large Platelets Polychromasia Hypochromasia (manual) Poikilocytosis (manual Anisocytosis (manual) Microcytosis (manual) Target Cells Tear Drop Cells Ovalocytes Acanthocytes (Spur) Smear Path Review ESR Retic Count Fibrinogen Sodium Potassium Chloride Carbon Dioxide Anion Gap BUN Creatinine Est GFR ( Amer) Est GFR (Non-Af Amer) Random Glucose Calcium Phosphorus Magnesium Iron 111 TIBC 177 L % Saturation 63 H Ferritin Total Bilirubin AST ALT Alkaline Phosphatase Lactate Dehydrogenase 635 H Total Protein Albumin Globulin Albumin/Globulin Ratio Vitamin B12 Folate Urine Color Urine Clarity Urine pH Ur Specific [place]sey Urine Protein Urine Glucose (UA) Urine Ketones Urine Blood Urine Nitrate Urine Bilirubin Urine Urobilinogen Ur Leukocyte Esterase Urine WBC (Auto) Urine RBC (Auto) Ur Squamous Epith Cells Granular Casts (Auto) Stool Occult Blood Hepatitis A IgM Ab Hep Bs Antigen Hep B Core IgM Ab Hepatitis C Antibody HIV 1&2 Antibody Screen Negative Blood Type Blood Type Confirm Antibody Screen 09/29/18 09/29/18 09/29/18 02:30 02:30 07:11 WBC 3.3 L RBC 3.01 L Hgb 8.3 L D Hct 25.8 L MCV 85.7 MCH 27.7 MCHC 32.3 L RDW 15.7 H Plt Count 11 L* Manual Plt Count MPV 12.0 H Neut % (Auto) 16.3 L Lymph % (Auto) 12.7 L Bent % (Auto) 71.0 H Eos % (Auto) 0.0 Baso % (Auto) 0.0 Neut # (Auto) 0.5 L Lymph # (Auto) 0.4 L Bent # (Auto) 2.4 H Eos # (Auto) 0.0 Baso # (Auto) 0.0 Neutrophils % (Manual) 18 L Band Neutrophils % Lymphocytes % (Manual) 19 L Reactive Lymphs % 15 H Monocytes % (Manual) 48 H Nucleated RBC % 25 H Platelet Estimate Markedly decreased L Large Platelets Polychromasia Moderate Hypochromasia (manual) Poikilocytosis (manual Marked Anisocytosis (manual) Marked Microcytosis (manual) Target Cells Tear Drop Cells Moderate Ovalocytes Acanthocytes (Spur) Smear Path Review ESR Retic Count Fibrinogen Sodium 136 Potassium 4.1 Chloride 105 Carbon Dioxide 21 L Anion Gap 14 BUN 21 H Creatinine 1.2 Est GFR ( Amer) > 60 Est GFR (Non-Af Amer) 59 Random Glucose 96 Calcium 7.6 L Phosphorus 4.8 H Magnesium 2.2 Iron TIBC % Saturation Ferritin 274.0 Total Bilirubin 0.6 AST 23 ALT 27 Alkaline Phosphatase 54 Lactate Dehydrogenase Total Protein 5.0 L Albumin 2.2 L Globulin 2.9 Albumin/Globulin Ratio 0.7 L Vitamin B12 990 H Folate 7.7 Urine Color Urine Clarity Urine pH Ur Specific [place]sey Urine Protein Urine Glucose (UA) Urine Ketones Urine Blood Urine Nitrate Urine Bilirubin Urine Urobilinogen Ur Leukocyte Esterase Urine WBC (Auto) Urine RBC (Auto) Ur Squamous Epith Cells Granular Casts (Auto) Stool Occult Blood Hepatitis A IgM Ab Hep Bs Antigen Hep B Core IgM Ab Hepatitis C Antibody HIV 1&2 Antibody Screen Blood Type Blood Type Confirm Antibody Screen 09/29/18 09/29/18 07:11 10:00 WBC RBC Hgb Hct MCV MCH MCHC RDW Plt Count Manual Plt Count 9 L* MPV Neut % (Auto) Lymph % (Auto) Bent % (Auto) Eos % (Auto) Baso % (Auto) Neut # (Auto) Lymph # (Auto) Bent # (Auto) Eos # (Auto) Baso # (Auto) Neutrophils % (Manual) Band Neutrophils % Lymphocytes % (Manual) Reactive Lymphs % Monocytes % (Manual) Nucleated RBC % Platelet Estimate Large Platelets Polychromasia Hypochromasia (manual) Poikilocytosis (manual Anisocytosis (manual) Microcytosis (manual) Target Cells Tear Drop Cells Ovalocytes Acanthocytes (Spur) Smear Path Review ESR Retic Count Fibrinogen Sodium Potassium Chloride Carbon Dioxide Anion Gap BUN Creatinine Est GFR ( Amer) Est GFR (Non-Af Amer) Random Glucose Calcium Phosphorus Magnesium Iron TIBC % Saturation Ferritin Total Bilirubin AST ALT Alkaline Phosphatase Lactate Dehydrogenase Total Protein Albumin Globulin Albumin/Globulin Ratio Vitamin B12 Folate Urine Color Urine Clarity Urine pH Ur Specific [place]sey Urine Protein Urine Glucose (UA) Urine Ketones Urine Blood Urine Nitrate Urine Bilirubin Urine Urobilinogen Ur Leukocyte Esterase Urine WBC (Auto) Urine RBC (Auto) Ur Squamous Epith Cells Granular Casts (Auto) Stool Occult Blood Hepatitis A IgM Ab Negative Hep Bs Antigen Negative Hep B Core IgM Ab Negative Hepatitis C Antibody Negative HIV 1&2 Antibody Screen Blood Type Blood Type Confirm Antibody Screen Assessment & Plan (1) Pancytopenia Assessment and Plan: Undetermined cause Await Hematology consultation Status: Acute (2) Occult blood positive stool Assessment and Plan: Undetermined cause. With severe thrombocytopenia there may be mucosal spontaneou s bleeding. 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
--- NOTE | 2018-09-29 13:36 | CP.PCM.CON ---
History of Present Illness - History of Present Illness History of Present Illness: 77 year old male with no past medical history, presented to the ER with progressive fatigue and weakness for several weeks, found to be pancytopenic with neutropenia. The patient notes to progressive weightloss and fatigue. His appetite is diminished and has not been eating much. A CT of the chest revealed a RUL lung mass. He denies fevers and chills. He has no night sweats. Past medical history: None Past surgical history: Denies Family history: Denies hematolgic and oncologic problems Social history: Former tobacco abuse. Allergies: NKA Review of systems: All remaining review of systems including HEENT, card iovascular, respiratory, gastrointestinal, genitourinary, musculoskeletal, dermatologic, neurologic,and psychiatric are negative unless mentioned in the HPI. Past Patient History - Infectious Disease Hx of Infectious Diseases: None - Past Medical History & Family History Past Medical History?: Yes - Past Social History Smoking Status: Former Smoker - CARDIAC Hx Cardiac Disorders: No - PULMONARY Hx Respiratory Disorders: No - NEUROLOGICAL Hx Neurological Disorder: No - HEENT Hx HEENT Problems: No - ENDOCRINE/METABOLIC Hx Endocrine Disorders: No - HEMATOLOGICAL/ONCOLOGICAL Hx Blood Disorders: Yes Other/Comment: Hgb 4.6 - INTEGUMENTARY Hx Dermatological Problems: No - MUSCULOSKELETAL/RHEUMATOLOGICAL Hx Musculoskeletal Disorders: No - GASTROINTESTINAL Hx Gastrointestinal Disorders: Yes Other/Comment: (+) stool occult blood - GENITOURINARY/GYNECOLOGICAL Hx Genitourinary Disorders: No - PSYCHIATRIC Hx Substance Use: No - SURGICAL HISTORY Hx Surgeries: No - ANESTHESIA Hx Anesthesia: No Meds Allergies/Adverse Reactions: Allergies Allergy/AdvReac Type Severity Reaction Status Date / Time No Known Allergies Allergy Verified 09/28/18 11:16 - Medications Medications: Current Medications Albuterol/Ipratropium (Duoneb 3 Mg/0.5 Mg (3 Ml) Ud) 3 ml INH RQ6 PRN PRN Reason: Shortness of Breath Azithromycin 500 mg/ Sodium (Chloride) 250 mls @ 250 mls/hr IVPB DAILY ELDA; Protocol Last Admin: 09/29/18 10:22 Dose: 250 mls/hr Ceftriaxone Sodium (Rocephin Iv 1 Gm Duplex) 50 mls @ 100 mls/hr IVPB Q12H ELDA; Protocol Last Admin: 09/29/18 01:28 Dose: 100 mls/hr Sodium Chloride (Sodium Chloride 0.9%) 1,000 mls @ 100 mls/hr IV .Q10H ELDA Last Admin: 09/29/18 10:25 Dose: 100 mls/hr Pantoprazole Sodium (Protonix Inj) 40 mg IVP DAILY ELDA Last Admin: 09/29/18 10:21 Dose: 40 mg Physical Exam - Head Exam Head Exam: ATRAUMATIC - Eye Exam Eye Exam: Normal appearance - ENT Exam ENT Exam: Mucous Membranes Dry - Respiratory Exam Respiratory Exam: NORMAL BREATHING PATTERN - Cardiovascular Exam Cardiovascular Exam: +S1, +S2 - GI/Abdominal Exam GI & Abdominal Exam: Normal Bowel Sounds - Extremities Exam Extremities exam: Positive for: normal inspection - Neurological Exam Neurological exam: Oriented x3 - Psychiatric Exam Psychiatric exam: Normal Affect, Normal Mood - Skin Skin Exam: Warm Results - Vital Signs Recent Vital Signs: Last Vital Signs Temp 97.5 F L 09/29/18 07:00 Pulse 88 09/29/18 12:00 Resp 18 09/29/18 07:00 BP 114/66 09/29/18 07:00 Pulse Ox 100 09/28/18 23:15 - Labs Result Diagrams: 10/03/18 06:19 10/03/18 06:19 Labs: Laboratory Results - last 24 hr 09/28/18 09/28/18 09/28/18 11:39 12:10 14:32 WBC RBC Hgb Hct MCV MCH MCHC RDW Plt Count Manual Plt Count MPV Neut % (Auto) Lymph % (Auto) [place] % (Auto) Eos % (Auto) Baso % (Auto) Neut # (Auto) Lymph # (Auto) [place] # (Auto) Eos # (Auto) Baso # (Auto) Neutrophils % (Manual) Lymphocytes % (Manual) Reactive Lymphs % Monocytes % (Manual) Nucleated RBC % Platelet Estimate Polychromasia Poikilocytosis (manual Anisocytosis (manual) Tear Drop Cells Smear Path Review ESR Retic Count Fibrinogen Sodium Potassium Chloride Carbon Dioxide Anion Gap BUN Creatinine Est GFR ( Amer) Est GFR (Non-Af Amer) Random Glucose Calcium Phosphorus Magnesium Iron TIBC % Saturation Ferritin Total Bilirubin AST ALT Alkaline Phosphatase Lactate Dehydrogenase Total Protein Albumin Globulin Albumin/Globulin Ratio Vitamin B12 Folate Urine Color Urine Clarity Urine pH Ur Specific [place] Urine Protein Urine Glucose (UA) Urine Ketones Urine Blood Urine Nitrate Urine Bilirubin Urine Urobilinogen Ur Leukocyte Esterase Urine WBC (Auto) Urine RBC (Auto) Ur Squamous Epith Cells Granular Casts (Auto) Stool Occult Blood Positive H Hepatitis A IgM Ab Hep Bs Antigen Hep B Core IgM Ab Hepatitis C Antibody HIV 1&2 Antibody Screen Blood Type B POSITIVE Blood Type Confirm B POSITIVE Antibody Screen Negative 09/28/18 09/29/18 09/29/18 15:54 02:30 02:30 WBC RBC Hgb Hct MCV MCH MCHC RDW Plt Count Manual Plt Count MPV Neut % (Auto) Lymph % (Auto) [place] % (Auto) Eos % (Auto) Baso % (Auto) Neut # (Auto) Lymph # (Auto) [place] # (Auto) Eos # (Auto) Baso # (Auto) Neutrophils % (Manual) Lymphocytes % (Manual) Reactive Lymphs % Monocytes % (Manual) Nucleated RBC % Platelet Estimate Polychromasia Poikilocytosis (manual Anisocytosis (manual) Tear Drop Cells Smear Path Review ESR 58 H Retic Count 2.1 H Fibrinogen 380 Sodium Potassium Chloride Carbon Dioxide Anion Gap BUN Creatinine Est GFR ( Amer) Est GFR (Non-Af Amer) Random Glucose Calcium Phosphorus Magnesium Iron TIBC % Saturation Ferritin Total Bilirubin AST ALT Alkaline Phosphatase Lactate Dehydrogenase Total Protein Albumin Globulin Albumin/Globulin Ratio Vitamin B12 Folate Urine Color Yellow Urine Clarity Clear Urine pH 5.0 Ur Specific [place] 1.033 H Urine Protein Negative Urine Glucose (UA) Normal Urine Ketones Trace Urine Blood Negative Urine Nitrate Negative Urine Bilirubin Negative Urine Urobilinogen Normal Ur Leukocyte Esterase Neg Urine WBC (Auto) 1 Urine RBC (Auto) 1 Ur Squamous Epith Cells < 1 Granular Casts (Auto) 2 Stool Occult Blood Hepatitis A IgM Ab Hep Bs Antigen Hep B Core IgM Ab Hepatitis C Antibody HIV 1&2 Antibody Screen Blood Type Blood Type Confirm Antibody Screen 09/29/18 09/29/18 09/29/18 02:30 02:30 02:30 WBC RBC Hgb Hct MCV MCH MCHC RDW Plt Count Manual Plt Count MPV Neut % (Auto) Lymph % (Auto) [place] % (Auto) Eos % (Auto) Baso % (Auto) Neut # (Auto) Lymph # (Auto) [place] # (Auto) Eos # (Auto) Baso # (Auto) Neutrophils % (Manual) Lymphocytes % (Manual) Reactive Lymphs % Monocytes % (Manual) Nucleated RBC % Platelet Estimate Polychromasia Poikilocytosis (manual Anisocytosis (manual) Tear Drop Cells Smear Path Review ESR Retic Count Fibrinogen Sodium Potassium Chloride Carbon Dioxide Anion Gap BUN Creatinine Est GFR ( Amer) Est GFR (Non-Af Amer) Random Glucose Calcium Phosphorus Magnesium Iron 111 TIBC 177 L % Saturation 63 H Ferritin Total Bilirubin AST ALT Alkaline Phosphatase Lactate Dehydrogenase 635 H Total Protein Albumin Globulin Albumin/Globulin Ratio Vitamin B12 Folate Urine Color Urine Clarity Urine pH Ur Specific [place] Urine Protein Urine Glucose (UA) Urine Ketones Urine Blood Urine Nitrate Urine Bilirubin Urine Urobilinogen Ur Leukocyte Esterase Urine WBC (Auto) Urine RBC (Auto) Ur Squamous Epith Cells Granular Casts (Auto) Stool Occult Blood Hepatitis A IgM Ab Hep Bs Antigen Hep B Core IgM Ab Hepatitis C Antibody HIV 1&2 Antibody Screen Negative Blood Type Blood Type Confirm Antibody Screen 09/29/18 09/29/18 09/29/18 02:30 02:30 07:11 WBC 3.3 L RBC 3.01 L Hgb 8.3 L D Hct 25.8 L MCV 85.7 MCH 27.7 MCHC 32.3 L RDW 15.7 H Plt Count 11 L* Manual Plt Count MPV 12.0 H Neut % (Auto) 16.3 L Lymph % (Auto) 12.7 L [place] % (Auto) 71.0 H Eos % (Auto) 0.0 Baso % (Auto) 0.0 Neut # (Auto) 0.5 L Lymph # (Auto) 0.4 L [place] # (Auto) 2.4 H Eos # (Auto) 0.0 Baso # (Auto) 0.0 Neutrophils % (Manual) 18 L Lymphocytes % (Manual) 19 L Reactive Lymphs % 15 H Monocytes % (Manual) 48 H Nucleated RBC % 25 H Platelet Estimate Markedly decreased L Polychromasia Moderate Poikilocytosis (manual Marked Anisocytosis (manual) Marked Tear Drop Cells Moderate Smear Path Review ESR Retic Count Fibrinogen Sodium 136 Potassium 4.1 Chloride 105 Carbon Dioxide 21 L Anion Gap 14 BUN 21 H Creatinine 1.2 Est GFR ( Amer) > 60 Est GFR (Non-Af Amer) 59 Random Glucose 96 Calcium 7.6 L Phosphorus 4.8 H Magnesium 2.2 Iron TIBC % Saturation Ferritin 274.0 Total Bilirubin 0.6 AST 23 ALT 27 Alkaline Phosphatase 54 Lactate Dehydrogenase Total Protein 5.0 L Albumin 2.2 L Globulin 2.9 Albumin/Globulin Ratio 0.7 L Vitamin B12 990 H Folate 7.7 Urine Color Urine Clarity Urine pH Ur Specific [place] Urine Protein Urine Glucose (UA) Urine Ketones Urine Blood Urine Nitrate Urine Bilirubin Urine Urobilinogen Ur Leukocyte Esterase Urine WBC (Auto) Urine RBC (Auto) Ur Squamous Epith Cells Granular Casts (Auto) Stool Occult Blood Hepatitis A IgM Ab Hep Bs Antigen Hep B Core IgM Ab Hepatitis C Antibody HIV 1&2 Antibody Screen Blood Type Blood Type Confirm Antibody Screen 09/29/18 09/29/18 07:11 10:00 WBC RBC Hgb Hct MCV MCH MCHC RDW Plt Count Manual Plt Count 9 L* MPV Neut % (Auto) Lymph % (Auto) [place] % (Auto) Eos % (Auto) Baso % (Auto) Neut # (Auto) Lymph # (Auto) [place] # (Auto) Eos # (Auto) Baso # (Auto) Neutrophils % (Manual) Lymphocytes % (Manual) Reactive Lymphs % Monocytes % (Manual) Nucleated RBC % Platelet Estimate Polychromasia Poikilocytosis (manual Anisocytosis (manual) Tear Drop Cells Smear Path Review ESR Retic Count Fibrinogen Sodium Potassium Chloride Carbon Dioxide Anion Gap BUN Creatinine Est GFR ( Amer) Est GFR (Non-Af Amer) Random Glucose Calcium Phosphorus Magnesium Iron TIBC % Saturation Ferritin Total Bilirubin AST ALT Alkaline Phosphatase Lactate Dehydrogenase Total Protein Albumin Globulin Albumin/Globulin Ratio Vitamin B12 Folate Urine Color Urine Clarity Urine pH Ur Specific [place] Urine Protein Urine Glucose (UA) Urine Ketones Urine Blood Urine Nitrate Urine Bilirubin Urine Urobilinogen Ur Leukocyte Esterase Urine WBC (Auto) Urine RBC (Auto) Ur Squamous Epith Cells Granular Casts (Auto) Stool Occult Blood Hepatitis A IgM Ab Negative Hep Bs Antigen Negative Hep B Core IgM Ab Negative Hepatitis C Antibody Negative HIV 1&2 Antibody Screen Blood Type Blood Type Confirm Antibody Screen Assessment & Plan (1) Pancytopenia Assessment and Plan: with neutropenia; neutropenic precautions will need bone marrow biopsy; will plan for 10/01 transfusion support to maintain hgb > 7 and plt > 10,000 Status: Acute (2) Lung mass Assessment and Plan: pulmonary evaluation Thank you for this interesting consult. Status: Acute
--- NOTE | 2018-09-29 13:53 | CT ---
Date of service: 09/29/2018 PROCEDURE: CT Abdomen and Pelvis with contrast HISTORY: mass in lungs, pancytopenia possible sequestration COMPARISON: None. TECHNIQUE: Contrast dose: 100 mL Visipaque 320 Radiation dose: Total exam DLP = 210.37 mGy-cm. This CT exam was performed using one or more of the following dose reduction techniques: Automated exposure control, adjustment of the mA and/or kV according to patient size, and/or use of iterative reconstruction technique. FINDINGS: LOWER THORAX: Small bilateral pleural effusion. Minimal compressive/subsegmental atelectasis in both lower lobes. LIVER: Normal size, contour and attenuation. In the lateral segment of the left hepatic lobe, is an ovoid mass measuring 1.4 x 3.3 cm. Nodular peripheral enhancement is noted in a portion of this mass suggesting that this may represent a hemangioma. However, the diagnosis is not definitive on the basis of this examination and evaluation with multiphasic contrast enhanced CT or gadolinium enhanced magnetic resonance imaging, with delayed images is required. A 2nd smaller mass is seen in the more inferior right hepatic lobe with 1 area of nodular enhancement. This mass measures 12 mm in diameter. A 3rd diffusely enhancing mass is seen in the inferior right hepatic lobe, measuring 1.4 cm in diameter. There is no other mass identified. There is no biliary ductal dilatation. GALLBLADDER AND BILE DUCTS: Unremarkable. PANCREAS: No mass. No ductal dilatation. Three punctate calcifications are noted. This is nonspecific. SPLEEN: Unremarkable. ADRENALS: Unremarkable. No mass. KIDNEYS AND URETERS: Upper pole right kidney rounded low-density mass, 9 mm. Possible cysts but too small to characterize accurately by attenuation. No other mass. No renal calculus or hydronephrosis. VASCULATURE: Unremarkable. No aortic aneurysm. There is atherosclerotic calcification of the abdominal aorta and iliac arteries. BOWEL: Unremarkable. No obstruction. No gross mural thickening. APPENDIX: Normal appendix. PERITONEUM: Mild ascites. LYMPH NODES: Unremarkable. No enlarged lymph nodes. BLADDER: Unremarkable. REPRODUCTIVE: Enlarged prostate. BONES: Scattered sclerotic foci, largest 10 mm in the right iliac bone adjacent to the sacroiliac joint. Possible bone islands. Rule out blastic metastasis. Correlate with radionuclide bone scan. No acute fracture. OTHER FINDINGS: None IMPRESSION: Small bilateral pleural effusion. Bilateral lower lobe minimal compressive atelectasis. Multiple hepatic masses, possible hemangiomas. Evaluation with multiphasic contrast-enhanced CT or gadolinium enhanced magnetic resonance imaging is advised. Mild ascites common nonspecific. Small nonspecific low-density right upper pole renal mass, likely cyst. Scattered sclerotic osseous foci common nonspecific. Recommend further evaluation with radionuclide bone scan.
--- NOTE | 2018-09-29 15:55 | CP.PCM.PN ---
Subjective - Date & Time of Evaluation Date of Evaluation: 09/29/18 Time of Evaluation: 15:00 - Subjective Subjective: Patient seen and examined Status post transfusion of packed RBCs and platelets Patient had CAT scan of the abdomen done And respiratory isolation Positive cough Afebrile Objective - Vital Signs/Intake and Output Vital Signs (last 24 hours): Temp Pulse Resp BP Pulse Ox 97.5 F L 88 18 114/66 100 09/29/18 07:00 09/29/18 12:00 09/29/18 07:00 09/29/18 07:00 09/28/18 23:15 Intake and Output: 09/29/18 09/29/18 06:59 18:59 Intake Total 950 500 Output Total 50 Balance 900 500 - Medications Medications: Current Medications Albuterol/Ipratropium (Duoneb 3 Mg/0.5 Mg (3 Ml) Ud) 3 ml INH RQ6 PRN PRN Reason: Shortness of Breath Azithromycin 500 mg/ Sodium (Chloride) 250 mls @ 250 mls/hr IVPB DAILY ELDA; Protocol Last Admin: 09/29/18 10:22 Dose: 250 mls/hr Ceftriaxone Sodium (Rocephin Iv 1 Gm Duplex) 50 mls @ 100 mls/hr IVPB Q12H ELDA; Protocol Last Admin: 09/29/18 14:00 Dose: 100 mls/hr Sodium Chloride (Sodium Chloride 0.9%) 1,000 mls @ 100 mls/hr IV .Q10H ELDA Last Admin: 09/29/18 10:25 Dose: 100 mls/hr Pantoprazole Sodium (Protonix Inj) 40 mg IVP DAILY ELDA Last Admin: 09/29/18 10:21 Dose: 40 mg - Labs Labs: 09/29/18 02:30 09/29/18 07:11 PT 12.9 SECONDS (9.7-12.2) H 09/28/18 11:39 INR 1.2 09/28/18 11:39 APTT 25 SECONDS (21-34) 09/28/18 11:39 - Head Exam Head Exam: ATRAUMATIC, NORMOCEPHALIC - ENT Exam ENT Exam: Mucous Membranes Moist - Neck Exam Neck Exam: Normal Inspection - Respiratory Exam Respiratory Exam: Decreased Breath Sounds - Cardiovascular Exam Cardiovascular Exam: REGULAR RHYTHM - GI/Abdominal Exam GI & Abdominal Exam: Soft, Normal Bowel Sounds Assessment and Plan (1) Lung mass Status: Acute (2) Pancytopenia Assessment & Plan: patient seen by hematology Consider bone marrow biopsy Transfuse platelets lung Biopsy once stable and thrombocytopenia corrected Status: Acute (3) Pneumonia Status: Acute
[2018-09-30] MEDS: cefTRIAXone IV 1 gm in Dextros 50 ML IVPB SCH ×2 (01:03→14:44)
--- NOTE | 2018-09-30 07:19 | CARD ---
APPROVED REPORT Date of service: 09/29/2018 EXAM: Two-dimensional and M-mode echocardiogram with Doppler and color Doppler. Other Information Quality : GoodRhythm : INDICATION Dizziness and Vertigo Syncope Pneumonia 2D DIMENSIONS IVSd1.0 (0.7-1.1cm)LVDd4.6 (3.9-5.9cm) PWd1.0 (0.7-1.1cm)LA Yaezid80 (18-58mL) LVDs3.8 (2.5-4.0cm)FS (%) 17.7 % LVEF (%)36.9 (>50%)LVEF (Hernandes's)42.24 % M-Mode DIMENSIONS Left Atrium (MM)3.25 (2.5-4.0cm)IVSd0.97 (0.7-1.1cm) Aortic Root3.39 (2.2-3.7cm)LVDd4.99 (4.0-5.6cm) Aortic Cusp Exc.2.18 (1.5-2.0cm)PWd1.10 (0.7-1.1cm) FS (%) 15 %LVDs4.24 (2.0-3.8cm) LVEF (%)31 (>50%) Mitral Valve MV E Ajmwwsxp44.8cm/sMV A Frniuhjf00.2cm/sE/A ratio0.6 TDI Lateral E' Peak V6.16cm/sMedial E' Peak V3.32cm/sE/Lateral E'9.4 E/Medial E'17.4 Tricuspid Valve TR Peak [id number]/sTR Peak Gr.[id number] LEFT VENTRICLE The left ventricle is normal size. There is normal left ventricular wall thickness. The systolic function is mildly to moderately impaired. Transmitral Doppler flow pattern is abnormal. RIGHT VENTRICLE The right ventricle is normal size. ATRIA The left atrium size is normal. The right atrium size is normal. AORTIC VALVE The aortic valve is normal in structure. MITRAL VALVE Mitral regurgitation is trace. TRICUSPID VALVE There is mild tricuspid regurgitation. PERICARDIAL EFFUSION There is a small circumferential pericardial effusion. <Conclusion> Mild to moderate LV systolic dysfunction. Diastolic dysfunction. Normal chamber size. Trace MR. Mild TR. There is a small pericardial effusion. No tamponade physiology seen.
--- NOTE | 2018-09-30 07:37 | CARD ---
APPROVED REPORT Date of service: 09/28/2018 EKG Measurement Heart [id number] CO [id number] <Conclusion> Sinus tachycardia Left axis deviation Left bundle branch block Abnormal ECG
[2018-09-30] MEDS: Sodium Chloride 0.9% 1,000 ML IV SCH ×3 (08:11→16:18)
[2018-09-30 08:51] LABS: HEMOGLOBIN 8.5 g/dL (12.0-18.0); MEAN CELL VOLUME 87.4 fL (80.0-94.0); MEAN CORPUSCULAR HEMOGLOBIN 27.8 pg (27.0-31.0); MEAN CORPUSCULAR HGB CONC 31.8 g/dL (33.0-37.0); RBC 3.07 Mil/uL (4.40-5.90); WHITE BLOOD COUNT 3.1 K/uL (4.8-10.8)
[2018-09-30 09:09] LABS: PLATELET COUNT 23 K/uL (130-400)
[2018-09-30 09:28] LABS: ALB/GLOB RATIO 0.7 (1.0-2.1); ALBUMIN 2.3 g/dL (3.5-5.0); ALT/SGPT 27 U/L (21-72); AST/SGOT 24 U/L (17-59); BLOOD UREA NITROGEN 20 mg/dL (9-20); CALCIUM 7.9 mg/dl (8.6-10.4); GFR NON-AFRICAN AMERICAN > 60
[2018-09-30] MEDS: Azithromycin 500 MG in Sodium Chloride 0.9% 250 ML IVPB SCH (09:45)
[2018-09-30 09:50] LABS: PLATELET COUNT MANUAL 20 K/uL (130-400)
--- NOTE | 2018-09-30 09:57 | CP.PCM.PN ---
Subjective - Date & Time of Evaluation Date of Evaluation: 09/30/18 - Subjective Subjective: patient seen and examined Awake and responsive Denies cough or shortness of breath Thrombocytopenic Denies any active bleeding Isolation to rule out TB Continue present treatment Hematology workup Objective - Vital Signs/Intake and Output Vital Signs (last 24 hours): Temp Pulse Resp BP Pulse Ox 97.8 F 92 H 20 129/65 96 09/30/18 04:15 09/30/18 07:00 09/29/18 23:20 09/29/18 23:20 09/29/18 23:20 Intake and Output: 09/30/18 09/30/18 06:59 18:59 Intake Total 306 Balance 306 - Medications Medications: Current Medications Albuterol/Ipratropium (Duoneb 3 Mg/0.5 Mg (3 Ml) Ud) 3 ml INH RQ6 PRN PRN Reason: Shortness of Breath Azithromycin 500 mg/ Sodium (Chloride) 250 mls @ 250 mls/hr IVPB DAILY ELDA; Protocol Last Admin: 09/30/18 09:45 Dose: 250 mls/hr Ceftriaxone Sodium (Rocephin Iv 1 Gm Duplex) 50 mls @ 100 mls/hr IVPB Q12H ELDA; Protocol Last Admin: 09/30/18 01:03 Dose: 100 mls/hr Sodium Chloride (Sodium Chloride 0.9%) 1,000 mls @ 100 mls/hr IV .Q10H ELDA Last Admin: 09/30/18 09:44 Dose: 100 mls/hr Pantoprazole Sodium (Protonix Inj) 40 mg IVP DAILY ELDA Last Admin: 09/30/18 09:45 Dose: 40 mg - Labs Labs: 09/30/18 08:43 09/30/18 08:43 PT 12.9 SECONDS (9.7-12.2) H 09/28/18 11:39 INR 1.2 09/28/18 11:39 APTT 25 SECONDS (21-34) 09/28/18 11:39 Assessment and Plan (1) Lung mass Status: Acute (2) Pancytopenia Status: Acute (3) Pneumonia Status: Acute
[2018-09-30 12:21] LABS: LYMPH # 0.4 K/uL (1.0-4.3); MONO # 2.3 K/uL (0.0-0.8); NEUT # 0.4 K/uL (1.8-7.0)
[2018-09-30 12:25] LABS: LYMPHOCYTE 17 % (20-40); MONOCYTE 69 % (0-10); NEUTROPHIL 14 % (50-75); NUCLEATED RED BLOOD CELL 46 % (0-0); PLATELET ESTIMATE MARKEDLY DECREASED (NORMAL); TOTAL CELLS COUNTED 100
[2018-09-30 12:26] LABS: ANISOCYTOSIS MODERATE; HYPOCHROMIC SLIGHT; OVALOCYTES SLIGHT; POIKILOCYTOSIS SLIGHT; POLYCHROMIC SLIGHT; SCHISTOCYTES SLIGHT
[2018-09-30 12:27] LABS: BURR CELLS SLIGHT; TEARDROP CELLS SLIGHT
[2018-10-01] MEDS: cefTRIAXone IV 1 gm in Dextros 50 ML IVPB SCH ×2 (01:33→14:42)
[2018-10-01] MEDS: Sodium Chloride 0.9% 1,000 ML IV SCH ×2 (05:24→13:47)
[2018-10-01 06:56] LABS: WHITE BLOOD COUNT 2.8 K/uL (4.8-10.8)
[2018-10-01 07:17] LABS: MEAN CELL VOLUME 87.3 fL (80.0-94.0); MEAN CORPUSCULAR HEMOGLOBIN 27.9 pg (27.0-31.0); MEAN CORPUSCULAR HGB CONC 31.9 g/dL (33.0-37.0); MEAN PLATELET VOLUME 10.7 fL (7.2-11.7); RBC 2.87 Mil/uL (4.40-5.90); RED CELL DISTRIBUTION WIDTH 15.9 % (11.5-14.5)
[2018-10-01 07:22] LABS: PLATELET COUNT 16 K/uL (130-400)
[2018-10-01 07:42] LABS: ALB/GLOB RATIO 0.7 (1.0-2.1); ALT/SGPT 27 U/L (21-72); AST/SGOT 21 U/L (17-59); BLOOD UREA NITROGEN 13 mg/dL (9-20); CALCIUM 7.4 mg/dl (8.6-10.4); GFR NON-AFRICAN AMERICAN > 60
[2018-10-01 09:06] LABS: PLATELET COUNT MANUAL 10 K/uL (130-400)
--- NOTE | 2018-10-01 09:14 | CP.PCM.PN ---
<Néstor Soares - Last Filed: 10/01/18 19:27> Subjective - Date & Time of Evaluation Date of Evaluation: 10/01/18 Time of Evaluation: 07:40 - Subjective Subjective: PGY1 Medicine progress note for Dr. Montoya Pt seen and examined at bedside. Pt is resting comfortably, and no acute events overnight. Pt endorses a dry cough, and night sweats for multiple days. Pt is on airborne precaution for possible TB. Denies fever, chills, hematochezia, chest pain, sob, abdominal pain, n/v/d, dizziness, lightheadedness, hematuria, hemoptysis. Objective - Vital Signs/Intake and Output Vital Signs (last 24 hours): Temp Pulse Resp BP Pulse Ox 98.0 F 82 20 139/65 95 10/01/18 07:30 10/01/18 07:30 10/01/18 07:30 10/01/18 07:30 10/01/18 07:30 - Medications Medications: Current Medications Albuterol/Ipratropium (Duoneb 3 Mg/0.5 Mg (3 Ml) Ud) 3 ml INH RQ6 PRN PRN Reason: Shortness of Breath Azithromycin 500 mg/ Sodium (Chloride) 250 mls @ 250 mls/hr IVPB DAILY [facility]; Protocol Last Admin: 09/30/18 09:45 Dose: 250 mls/hr Ceftriaxone Sodium (Rocephin Iv 1 Gm Duplex) 50 mls @ 100 mls/hr IVPB Q12H [facility]; Protocol Last Admin: 10/01/18 01:33 Dose: 100 mls/hr Sodium Chloride (Sodium Chloride 0.9%) 1,000 mls @ 100 mls/hr IV .Q10H [facility] Last Admin: 10/01/18 05:24 Dose: Not Given Pantoprazole Sodium (Protonix Inj) 40 mg IVP DAILY [facility] Last Admin: 09/30/18 09:45 Dose: 40 mg - Labs Labs: 10/01/18 06:43 10/01/18 06:43 PT 12.9 SECONDS (9.7-12.2) H 09/28/18 11:39 INR 1.2 09/28/18 11:39 APTT 25 SECONDS (21-34) 09/28/18 11:39 - Additional Findings Additional findings: - Constitutional Appears: Non-toxic - Head Exam Head Exam: ATRAUMATIC, NORMAL INSPECTION, NORMOCEPHALIC - Eye Exam Eye Exam: EOMI, Normal appearance Pupil Exam: NORMAL ACCOMODATION, PERRL Additional comments: pale sclera - ENT Exam ENT Exam: Mucous Membranes Moist - Neck Exam Neck exam: Negative for: Lymphadenopathy - Respiratory Exam Respiratory Exam: Clear to Auscultation Bilateral, NORMAL BREATHING PATTERN. absent: Chest Wall Tenderness, Rales, Rhonchi, Wheezes - Cardiovascular Exam Cardiovascular Exam: +S1, +S2. absent: Systolic Murmur - GI/Abdominal Exam GI & Abdominal Exam: Normal Bowel Sounds, Soft. absent: Tenderness, Distension - Extremities Exam Extremities exam: Positive for: full ROM, normal inspection. Negative for: calf tenderness, pedal edema - Back Exam Back exam: normal inspection - Neurological Exam Neurological exam: Alert, Normal Gait, Oriented x3 - Psychiatric Exam Psychiatric exam: Normal Affect, Normal Mood - Skin Skin Exam: Dry, Normal Color, Warm Assessment and Plan - Assessment and Plan (Free Text) Assessment: 77 y M w/ no PMHx: presents to ED for weakness, in ED found to be pancytopenic: Pancytopenia - WBC 2.8, Hgb 4.6, Plt 13 on admission - peripheral smear shows moderate teardrop cells possible myelofibrosis - transfused: 2 X PRBCs & 2 PLTs on admission - H/H is stable; Thrombocytopenia is noted at a manual count of 10 - Heme/Onc, Dr. bobby, consulted Case discussed with Dr. Bobby, who requests that no platelet transfusion be done unless pt's manual count is less than 10, or patient has signs of bleeding. -10/01: pt noted to have blood streaks in sputum sample, will transfuse 1 unit of PLTs. Bone marrow biopsy will be done today as per Dr. Bobby - CT: Emphysematous changes. Biapical pleural thickening. Bilateral upper lobe bulla. Abnormal right upper lobe spiculated/irregular opacities possibly malignant neoplasm or consolidation such as pneumonia. Calcifications are evident in this region, as are ground-glass opacities and bronchiectasis. Evidence of chronic interstitial fibrosis. Small bilateral pleural effusions and dependent atelectasis. No pneumothorax. Nodular opacities measuring approximately 6 mm in the left upper lobe (series 4, image 34) and 3 mm in the lingula (64). More localized ground-glass opacities noted in the left lower lobe (image 75). Limited visualized portions of the upper abdomen: Bilateral adrenal gland hypertrophy. Small hiatal hernia/distal esophageal wall thickening. No large central or segmental pulmonary embolus identified. Correlate with clinical status. Nodular opacities measuring approximately 6 mm in the left upper lobe and 3 mm in the lingula. More localized ground-glass rounded opacity noted in the left lower lobe. Recommend further evaluation with biopsy, PET- CT, or follow-up CT at 3 months, and 9 months, and 24 months. - CXR: Right upper lobe traction bronchiectasis with the probable granulomatous disease. Concomitant right pleural parenchymal pathology here suggested- infiltrate, mass, scar or combination of the above are considerations. - HIV is negative - Hep panel is normal Lung mass, dry cough and night sweats - airborne precautions for suspected TB - CXR as above - Chest CT as above - continue Azithromycin 500 mg IVPB daily and Ceftriaxone 1gm IVPB daily for suspected community acquired pneumonia (started on 09/29) - Pulmonology, Dr. Thurston, consulted - will biopsy once thrombocytopenia corrected. Sputum for culture and sensitivity. Transfuse packed RBCs and platelets. Sputum AFB. Bone marrow biopsy - sputum culture shows no growth or stain - blood culture prelim shows no growth after 3 days - ESR is elevated 58 (09/29) - f/u sputum AFB stain/culture - F/u legionella - F/u strep pneumo - F/u mycoplasma - F/u quantiferon gold - F/u procalcitonin Emphysematous changes on Chest CT; likely COPD due to history of smoking - see CT results above - duonebs Q6H prn - Pulmonology, Dr. Thurston, on board GI Bleed - Stool occult positive - Hgb 4.6->8.3->8.5->8.0 today - protonox 40mg IVP daily - FLD, will advance as tolerated - GI Dr. Cox recs: likely aplastic, no endoscopy at this time, correct thrombocytopenia LBBB - EKG reveals LBBB, unsure if new onset - currently asymptomatic - will monitor Prophylaxis - DVT contraindicated due to GI bleed - GI: protonix 40 mg IVP Case discussed with Dr. Montoya. All medical management as per Dr. Lindsay Soares PGY-1 <Andrzej Montoya Jr. - Last Filed: 10/10/18 15:18> Objective - Vital Signs/Intake and Output Vital Signs (last 24 hours): Temp Pulse Resp BP Pulse Ox 99.4 F 100 H 20 117/62 99 10/10/18 08:24 10/10/18 08:24 10/10/18 08:24 10/10/18 08:24 10/10/18 08:24 Intake and Output: 10/10/18 10/10/18 06:59 18:59 Intake Total 630 Output Total 1999 Balance -1370 - Medications Medications: Current Medications Acetaminophen (Tylenol 325mg Tab) 650 mg PO ONCE ONE Stop: 10/11/18 12:01 Diphenhydramine HCl (Benadryl) 25 mg IVP ONCE ONE Stop: 10/11/18 12:01 Diphenhydramine HCl (Benadryl) 25 mg IVP ONCE ONE Stop: 10/10/18 13:16 Docusate Sodium (Colace) 100 mg PO BID [facility] Last Admin: 10/10/18 10:37 Dose: Not Given Famotidine (Pepcid) 20 mg IVP ONCE ONE Stop: 10/11/18 14:01 Hydrocortisone (Anusol-Hc) 0 gm [place] BID [facility] Last Admin: 10/10/18 10:38 Dose: 2.5 % Decitabine 30 mg/ Sodium (Chloride) 256 mls @ 256 mls/hr IV .Q1H ONE Stop: 10/11/18 13:29 Ondansetron HCl (Zofran Inj) 4 mg IVP DAILY@ONCE PRN PRN Reason: Nausea/Vomiting Pantoprazole Sodium (Protonix Inj) 40 mg IVP DAILY [facility] Last Admin: 10/10/18 10:36 Dose: 40 mg Saccharomyces Boulardii (Florastor) 250 mg PO BID [facility] Last Admin: 10/10/18 10:37 Dose: 250 mg Tamsulosin HCl (Flomax) 0.4 mg PO BID [facility] - Labs Labs: 10/10/18 08:04 10/10/18 08:04 PT 12.9 SECONDS (9.7-12.2) H 09/28/18 11:39 INR 1.2 09/28/18 11:39 APTT 25 SECONDS (21-34) 09/28/18 11:39 Attending/Attestation - Attestation I have personally seen and examined this patient.: Yes I have fully participated in the care of the patient.: Yes I have reviewed all pertinent clinical information, including history, physical exam and plan: Yes Notes (Text): 10/10/18 15:18 Reviewed resident note. Agree with findings and plan of care.
[2018-10-01 09:23] LABS: LYMPH # 1.1 K/uL (1.0-4.3); MONO # 1.4 K/uL (0.0-0.8); NEUT # 0.3 K/uL (1.8-7.0)
[2018-10-01 09:30] LABS: LYMPHOCYTE 38 % (20-40); MONOCYTE 50 % (0-10); NEUTROPHIL 12 % (50-75); NUCLEATED RED BLOOD CELL 10 % (0-0); TOTAL CELLS COUNTED 100
[2018-10-01 09:39] LABS: PLATELET ESTIMATE MARKEDLY DECREASED (NORMAL)
[2018-10-01 09:40] LABS: ANISOCYTOSIS SLIGHT; HYPOCHROMIC SLIGHT; POLYCHROMIC SLIGHT
[2018-10-01 09:41] LABS: TEARDROP CELLS SLIGHT
[2018-10-01 09:42] LABS: OVALOCYTES SLIGHT
[2018-10-01] MEDS: Azithromycin 500 MG in Sodium Chloride 0.9% 250 ML IVPB SCH (09:48)
[2018-10-01] MEDS ORDERED: Lidocaine 2% Inj (20ml) IV ONE (16:10)
[2018-10-01] MEDS ORDERED: Lidocaine 2% MPF (5 ml) Inj INJ ONE ×3 (16:30→17:00)
--- NOTE | 2018-10-01 19:28 | CP.PCM.PN ---
Subjective - Date & Time of Evaluation Date of Evaluation: 10/01/18 Time of Evaluation: 17:40 - Subjective Subjective: patient seen and examined Status post bone marrow biopsy Denies cough Denies fever chills No chest pain Followup bone marrow biopsy continue nebulizer treatment Advance diet Objective - Vital Signs/Intake and Output Vital Signs (last 24 hours): Temp Pulse Resp BP Pulse Ox 97.9 F 16 L 17 112/69 95 10/01/18 14:15 10/01/18 14:15 10/01/18 14:15 10/01/18 14:15 10/01/18 07:30 - Medications Medications: Current Medications Albuterol/Ipratropium (Duoneb 3 Mg/0.5 Mg (3 Ml) Ud) 3 ml INH RQ6 PRN PRN Reason: Shortness of Breath Azithromycin 500 mg/ Sodium (Chloride) 250 mls @ 250 mls/hr IVPB DAILY [facility]; P rotocol Last Admin: 10/01/18 09:48 Dose: 250 mls/hr Ceftriaxone Sodium (Rocephin Iv 1 Gm Duplex) 50 mls @ 100 mls/hr IVPB Q12H [facility]; Protocol Last Admin: 10/01/18 14:42 Dose: 100 mls/hr Sodium Chloride (Sodium Chloride 0.9%) 1,000 mls @ 100 mls/hr IV .Q10H [facility] Last Admin: 10/01/18 13:47 Dose: Not Given Pantoprazole Sodium (Protonix Inj) 40 mg IVP DAILY [facility] Last Admin: 10/01/18 09:51 Dose: 40 mg - Labs Labs: 10/01/18 06:43 10/01/18 06:43 PT 12.9 SECONDS (9.7-12.2) H 09/28/18 11:39 INR 1.2 09/28/18 11:39 APTT 25 SECONDS (21-34) 09/28/18 11:39 Assessment and Plan (1) Lung mass Status: Acute (2) Pancytopenia Status: Acute (3) Pneumonia Status: Acute
[2018-10-02] MEDS: cefTRIAXone IV 1 gm in Dextros 50 ML IVPB SCH (01:30)
[2018-10-02 07:23] LABS: EOS % 0.1 % (0.0-4.0); HEMOGLOBIN 7.6 g/dL (12.0-18.0); LYMPH # 0.5 K/uL (1.0-4.3); LYMPH % 24.8 % (20.0-40.0); MEAN CELL VOLUME 86.7 fL (80.0-94.0); MEAN CORPUSCULAR HEMOGLOBIN 28.1 pg (27.0-31.0); MEAN CORPUSCULAR HGB CONC 32.4 g/dL (33.0-37.0); MONO # 1.4 K/uL (0.0-0.8); MONO % 65.1 % (0.0-10.0); NEUT # 0.2 K/uL (1.8-7.0); NRBC % 7.8 % (0.0-2.0); WHITE BLOOD COUNT 2.1 K/uL (4.8-10.8)
[2018-10-02 07:28] LABS: PLATELET COUNT 20 K/uL (130-400)
[2018-10-02 08:28] LABS: ALB/GLOB RATIO 0.7 (1.0-2.1); ALT/SGPT 29 U/L (21-72); AST/SGOT 23 U/L (17-59); BLOOD UREA NITROGEN 12 mg/dL (9-20); CALCIUM 7.3 mg/dl (8.6-10.4); GFR NON-AFRICAN AMERICAN > 60
[2018-10-02] MEDS: Azithromycin 500 MG in Sodium Chloride 0.9% 250 ML IVPB SCH (09:00)
[2018-10-02 09:22] LABS: PLATELET COUNT MANUAL 69 K/uL (130-400)
[2018-10-02 10:41] LABS: LYMPHOCYTE 41 % (20-40); MONOCYTE 43 % (0-10); NEUTROPHIL 16 % (50-75); NUCLEATED RED BLOOD CELL 2 % (0-0); TOTAL CELLS COUNTED 100
[2018-10-02 10:43] LABS: ANISOCYTOSIS SLIGHT; HYPOCHROMIC SLIGHT; OVALOCYTES SLIGHT; PLATELET ESTIMATE DECREASED (NORMAL); POLYCHROMIC SLIGHT; TEARDROP CELLS SLIGHT
[2018-10-02 10:45] LABS: SCHISTOCYTES SLIGHT
--- NOTE | 2018-10-02 13:30 | RAD ---
Date of service: 10/02/2018 HISTORY: follow up COMPARISON: 09/28/2018 FINDINGS: LUNGS: Abnormal opacity in right apex associated with some right apical pleural thickening. Unchanged from prior. Rule out pneumonia. Calcified granuloma mid right lung laterally. Rule out old granulomatous infection. PLEURA: Possible small left pleural effusion. No right pleural effusion. CARDIOVASCULAR: No aortic atherosclerotic calcification present. Normal cardiac size. No pulmonary vascular congestion. OSSEOUS STRUCTURES: No significant abnormalities. VISUALIZED UPPER ABDOMEN: Normal. OTHER FINDINGS: None. IMPRESSION: Right apical opacity with associated pleural thickening. Nonspecific. Rule out old granulomatous infection. Possible small left pleural effusion.
--- NOTE | 2018-10-02 14:40 | CP.PCM.PN ---
<Néstor Soares - Last Filed: 10/02/18 21:51> Subjective - Date & Time of Evaluation Date of Evaluation: 10/02/18 Time of Evaluation: 21:51 - Subjective Subjective: PGY1 Medicine progress note for Dr. Montoya Pt seen and examined at bedside. Pt is resting comfortably, and no acute events overnight. Pt continues to be on airborne precaution for possible TB. Denies fever, chills, hematochezia, chest pain, sob, abdominal pain, n/v/d, dizziness, lightheadedness, hematuria, hemoptysis. Objective - Vital Signs/Intake and Output Vital Signs (last 24 hours): Temp Pulse Resp BP Pulse Ox 97.7 F 71 20 131/66 97 10/02/18 07:00 10/02/18 07:00 10/02/18 07:00 10/02/18 07:00 10/02/18 07:00 Intake and Output: 10/02/18 10/02/18 06:59 18:59 Intake Total 850 Balance 850 - Medications Medications: Current Medications Albuterol/Ipratropium (Duoneb 3 Mg/0.5 Mg (3 Ml) Ud) 3 ml INH RQ6 PRN PRN Reason: Shortness of Breath Pantoprazole Sodium (Protonix Inj) 40 mg IVP DAILY [facility] Last Admin: 10/02/18 09:00 Dose: 40 mg - Labs Labs: 10/02/18 07:09 10/02/18 07:09 PT 12.9 SECONDS (9.7-12.2) H 09/28/18 11:39 INR 1.2 09/28/18 11:39 APTT 25 SECONDS (21-34) 09/28/18 11:39 - Additional Findings Additional findings: - Constitutional Appears: Non-toxic - Head Exam Head Exam: ATRAUMATIC, NORMAL INSPECTION, NORMOCEPHALIC - Eye Exam Eye Exam: EOMI, Normal appearance Pupil Exam: NORMAL ACCOMODATION, PERRL - ENT Exam ENT Exam: Mucous Membranes Moist - Neck Exam Neck exam: Negative for: Lymphadenopathy - Respiratory Exam Respiratory Exam: NORMAL BREATHING PATTERN. Scant rales at bases. absent: Chest Wall Tenderness, Rhonchi, Wheezes - Cardiovascular Exam Cardiovascular Exam: +S1, +S2. absent: Systolic Murmur - GI/Abdominal Exam GI & Abdominal Exam: Normal Bowel Sounds, Soft. absent: Tenderness, Distension - Extremities Exam Extremities exam: Positive for: full ROM, normal inspection. Negative for: calf tenderness, pedal edema - Back Exam Back exam: normal inspection - Neurological Exam Neurological exam: Alert, Normal Gait, Oriented x3 - Psychiatric Exam Psychiatric exam: Normal Affect, Normal Mood - Skin Skin Exam: Dry, Normal Color, Warm Assessment and Plan - Assessment and Plan (Free Text) Assessment: 77 y M w/ no PMHx: presents to ED for weakness, in ED found to be pancytopenic. prelim bone biopsy shows AML (pending final report) Pancytopenia - WBC 2.8, Hgb 4.6, Plt 13 on admission - peripheral smear shows moderate teardrop cells possible myelofibrosis - transfused: 2 X PRBCs & 2 PLTs on admission - 10/01 transfused one unit of PLTs - H/H is stable; Thrombocytopenia is noted at a manual count of 69 s/p yesterdays transfusion - Heme/Onc, Dr. bobby, consulted Case discussed with Dr. Bobby, who requests that no platelet transfusion be done unless pt's manual count is less than 10, or patient has signs of bleeding. -10/01: pt noted to have blood streaks in sputum sample, will transfuse 1 unit of PLTs. Bone marrow biopsy will be done today as per Dr. Bobby -10/02: Case discussed with Dr. Bobby, who states that prelim pathology report shows AML. Pt is too frail for induction chemotherapy. Possibly hypomethylating agent in the future. - CT: Emphysematous changes. Biapical pleural thickening. Bilateral upper lobe bulla. Abnormal right upper lobe spiculated/irregular opacities possibly malignant neoplasm or consolidation such as pneumonia. Calcifications are evident in this region, as are ground-glass opacities and bronchiectasis. Evidence of chronic interstitial fibrosis. Small bilateral pleural effusions and dependent atelectasis. No pneumothorax. Nodular opacities measuring approximately 6 mm in the left upper lobe (series 4, image 34) and 3 mm in the lingula (64). More localized ground-glass opacities noted in the left lower lobe (image 75). Limited visualized portions of the upper abdomen: Bilateral adrenal gland hypertrophy. Small hiatal hernia/distal esophageal wall thickening. No large central or segmental pulmonary embolus identified. Correlate with clinical status. Nodular opacities measuring approximately 6 mm in the left upper lobe a nd 3 mm in the lingula. More localized ground-glass rounded opacity noted in the left lower lobe. Recommend further evaluation with biopsy, PET- CT, or follow-up CT at 3 months, and 9 months, and 24 months. - CXR: Right upper lobe traction bronchiectasis with the probable granulomatous disease. Concomitant right pleural parenchymal pathology here suggested- infiltrate, mass, scar or combination of the above are considerations. - HIV is negative - Hep panel is normal Lung mass, dry cough and night sweats - airborne precautions for suspected TB - CXR as above - Chest CT as above - continue Azithromycin 500 mg IVPB daily and Ceftriaxone 1gm IVPB daily for suspected community acquired pneumonia (started on 09/29) - Pulmonology, Dr. Thurston, consulted - will biopsy once thrombocytopenia corrected. Sputum for culture and sensitivity. Transfuse packed RBCs and platelets. Sputum AFB. Bone marrow biopsy - 09/29 sputum culture shows no growth or stain - blood culture prelim shows no growth after 3 days - ESR is elevated 58 (09/29) - 10/01 sputum AFB stain/culture is prelim negative - F/u legionella - strep pneumo negative - F/u quantiferon gold - procalcitonin is wnl - CXR (10/02) shows apical opacity with associated pleural thickening. Nonspecific. Possible small left pleural effusion. Rule out old granulomatous infection. Emphysematous changes on Chest CT; likely COPD due to history of smoking - see CT results above - duonebs Q6H prn - Pulmonology, Dr. Thurston, on board Positive FOBT - Hgb 4.6->8.3->8.5->8.0-> 7.6 today - protonox 40mg IVP daily - FLD, will advance as tolerated - GI Dr. Cox recs: likely aplastic, no endoscopy at this time, correct thrombocytopenia LBBB - EKG reveals LBBB, unsure if new onset - currently asymptomatic - will monitor Prophylaxis - DVT contraindicated due to thrombocytopenia and anemia - GI: protonix 40 mg IVP Case discussed with Dr. Montoya. All medical management as per Dr. Lindsay Soares PGY-1 <Andrzej Montoya Jr. - Last Filed: 10/10/18 15:12> Objective - Vital Signs/Intake and Output Vital Signs (last 24 hours): Temp Pulse Resp BP Pulse Ox 99.4 F 100 H 20 117/62 99 10/10/18 08:24 10/10/18 08:24 10/10/18 08:24 10/10/18 08:24 10/10/18 08:24 Intake and Output: 10/10/18 10/10/18 06:59 18:59 Intake Total 630 Output Total 2000 Balance -1370 - Medications Medications: Current Medications Acetaminophen (Tylenol 325mg Tab) 650 mg PO ONCE ONE Stop: 10/11/18 12:01 Diphenhydramine HCl (Benadryl) 25 mg IVP ONCE ONE Stop: 10/11/18 12:01 Diphenhydramine HCl (Benadryl) 25 mg IVP ONCE ONE Stop: 10/10/18 13:16 Docusate Sodium (Colace) 100 mg PO BID [facility] Last Admin: 10/10/18 10:37 Dose: Not Given Famotidine (Pepcid) 20 mg IVP ONCE ONE Stop: 10/11/18 14:01 Hydrocortisone (Anusol-Hc) 0 gm [place] BID [facility] Last Admin: 10/10/18 10:38 Dose: 2.5 % Decitabine 30 mg/ Sodium (Chloride) 256 mls @ 256 mls/hr IV .Q1H ONE Stop: 10/11/18 13:29 Ondansetron HCl (Zofran Inj) 4 mg IVP DAILY@ONCE PRN PRN Reason: Nausea/Vomiting Pantoprazole Sodium (Protonix Inj) 40 mg IVP DAILY [facility] Last Admin: 10/10/18 10:36 Dose: 40 mg Saccharomyces Boulardii (Florastor) 250 mg PO BID [facility] Last Admin: 10/10/18 10:37 Dose: 250 mg Tamsulosin HCl (Flomax) 0.4 mg PO BID [facility] - Labs Labs: 10/10/18 08:04 10/10/18 08:04 PT 12.9 SECONDS (9.7-12.2) H 09/28/18 11:39 INR 1.2 09/28/18 11:39 APTT 25 SECONDS (21-34) 09/28/18 11:39 Attending/Attestation - Attestation I have personally seen and examined this patient.: Yes I have fully participated in the care of the patient.: Yes I have reviewed all pertinent clinical information, including history, physical exam and plan: Yes Notes (Text): 10/10/18 15:12 Reviewed resident note. Agree with findings and plan of care.
--- NOTE | 2018-10-02 19:40 | CP.PCM.PN ---
Subjective - Date & Time of Evaluation Date of Evaluation: 10/02/18 - Subjective Subjective: ppatient seen and examined Status post bone marrow biopsy Pending results Denies any cough Afebrile No chest pain sputum AFB x 1 Negative Objective - Vital Signs/Intake and Output Vital Signs (last 24 hours): Temp Pulse Resp BP Pulse Ox 97.3 F L 95 H 20 130/69 95 10/02/18 17:00 10/02/18 17:00 10/02/18 17:00 10/02/18 17:00 10/02/18 17:00 Intake and Output: 10/02/18 10/03/18 18:59 06:59 Intake Total 480 Balance 480 - Medications Medications: Current Medications Albuterol/Ipratropium (Duoneb 3 Mg/0.5 Mg (3 Ml) Ud) 3 ml INH RQ6 PRN PRN Reason: Shortness of Breath Pantoprazole Sodium (Protonix Inj) 40 mg IVP DAILY [facility] Last Admin: 10/02/18 09:00 Dose: 40 mg - Labs Labs: 10/02/18 07:09 10/02/18 07:09 PT 12.9 SECONDS (9.7-12.2) H 09/28/18 11:39 INR 1.2 09/28/18 11:39 APTT 25 SECONDS (21-34) 09/28/18 11:39 Assessment and Plan (1) Lung mass Status: Acute (2) Pancytopenia Status: Acute (3) Pneumonia Status: Acute
[2018-10-03 06:52] LABS: ALB/GLOB RATIO 0.7 (1.0-2.1); ALBUMIN 2.3 g/dL (3.5-5.0); ALT/SGPT 26 U/L (21-72); AST/SGOT 25 U/L (17-59); BLOOD UREA NITROGEN 12 mg/dL (9-20); CALCIUM 7.8 mg/dl (8.6-10.4); GFR NON-AFRICAN AMERICAN > 60
[2018-10-03 06:55] LABS: HEMOGLOBIN 7.8 g/dL (12.0-18.0); MEAN CELL VOLUME 85.7 fL (80.0-94.0); MEAN CORPUSCULAR HEMOGLOBIN 27.4 pg (27.0-31.0); MEAN PLATELET VOLUME 10.5 fL (7.2-11.7); RBC 2.84 Mil/uL (4.40-5.90); RED CELL DISTRIBUTION WIDTH 15.8 % (11.5-14.5); WHITE BLOOD COUNT 2.1 K/uL (4.8-10.8)
[2018-10-03 06:58] LABS: PLATELET COUNT 17 K/uL (130-400)
[2018-10-03 08:05] LABS: PLATELET COUNT MANUAL 45 K/uL (130-400)
--- NOTE | 2018-10-03 09:25 | CP.PCM.PN ---
<Benjamin Soaresy - Last Filed: 10/03/18 21:40> Subjective - Date & Time of Evaluation Date of Evaluation: 10/03/18 Time of Evaluation: 10:00 - Subjective Subjective: PGY1 Medicine progress note for Dr. Montoya Pt seen and examined at bedside. Pt is resting comfortably, and no acute events overnight. Pt continues to be on airborne precaution for possible TB. Denies fever, chills, hematochezia, chest pain, sob, abdominal pain, n/v/d, dizziness, lightheadedness, hematuria, hemoptysis. 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 and pt want everything done, ad have discussed this with Dr. Bobby. Objective - Vital Signs/Intake and Output Vital Signs (last 24 hours): Temp Pulse Resp BP Pulse Ox 97.8 F 88 18 127/73 97 10/03/18 07:00 10/03/18 07:00 10/03/18 07:00 10/03/18 07:00 10/03/18 07:00 - Medications Medications: Current Medications Albuterol/Ipratropium (Duoneb 3 Mg/0.5 Mg (3 Ml) Ud) 3 ml INH RQ6 PRN PRN Reason: Shortness of Breath Pantoprazole Sodium (Protonix Inj) 40 mg IVP DAILY [facility] Last Admin: 10/03/18 09:13 Dose: 40 mg - Labs Labs: 10/03/18 06:19 10/03/18 06:19 PT 12.9 SECONDS (9.7-12.2) H 09/28/18 11:39 INR 1.2 09/28/18 11:39 APTT 25 SECONDS (21-34) 09/28/18 11:39 - Additional Findings Additional findings: - Constitutional Appears: Non-toxic - Head Exam Head Exam: ATRAUMATIC, NORMAL INSPECTION, NORMOCEPHALIC - Eye Exam Eye Exam: EOMI, Normal appearance Pupil Exam: NORMAL ACCOMODATION, PERRL - ENT Exam ENT Exam: Mucous Membranes Moist - Neck Exam Neck exam: Negative for: Lymphadenopathy - Respiratory Exam Respiratory Exam: NORMAL BREATHING PATTERN. absent: Chest Wall Tenderness, Rhonchi, Wheezes, Rales - Cardiovascular Exam Cardiovascular Exam: +S1, +S2. absent: Systolic Murmur - GI/Abdominal Exam GI & Abdominal Exam: Normal Bowel Sounds, Soft. absent: Tenderness, Distension - Extremities Exam Extremities exam: Positive for: full ROM, normal inspection. (+) trace pitting edema bilateral lower extremities to the rondon. Negative for: calf tenderness, pedal edema - Back Exam Back exam: normal inspection - Neurological Exam Neurological exam: Alert, Normal Gait, Oriented x3 - Psychiatric Exam Psychiatric exam: Normal Affect, Normal Mood - Skin Skin Exam: Dry, Normal Color, Warm Assessment and Plan - Assessment and Plan (Free Text) Assessment: 77 y M w/ no PMHx: presents to ED for weakness, in ED found to be pancytopenic. prelim bone biopsy shows AML (pending final report) Pancytopenia - WBC 2.8, Hgb 4.6, Plt 13 on admission - peripheral smear shows moderate teardrop cells possible myelofibrosis - transfused: 2 X PRBCs & 2 PLTs on admission - 10/01 transfused one unit of PLTs - H/H is stable; Thrombocytopenia is noted with a manual count of 45 s/p yesterdays transfusion - Heme/Onc, Dr. bobby, consulted Case discussed with Dr. Bobby, who requests that no platelet transfusion be done unless pt's manual count is less than 10, or patient has signs of bleeding. -10/01: pt noted to have blood streaks in sputum sample, will transfuse 1 unit of PLTs. Bone marrow biopsy will be done today as per Dr. Bobby -10/02: Case discussed with Dr. Bobby, who states that prelim pathology report shows AML. Pt is too frail for induction chemotherapy. Possibly hypomethylating agent in the future. - CT: Emphysematous changes. Biapical pleural thickening. Bilateral upper lobe bulla. Abnormal right upper lobe spiculated/irregular opacities possibly malignant neoplasm or consolidation such as pneumonia. Calcifications are evident in this region, as are ground-glass opacities and bronchiectasis. Evidence of chronic interstitial fibrosis. Small bilateral pleural effusions and dependent atelectasis. No pneumothorax. Nodular opacities measuring approximat karine 6 mm in the left upper lobe (series 4, image 34) and 3 mm in the lingula (64). More localized ground-glass opacities noted in the left lower lobe (image 75). Limited visualized portions of the upper abdomen: Bilateral adrenal gland hypertrophy. Small hiatal hernia/distal esophageal wall thickening. No large central or segmental pulmonary embolus identified. Correlate with clinical status. Nodular opacities measuring approximately 6 mm in the left upper lobe and 3 mm in the lingula. More localized ground-glass rounded opacity noted in the left lower lobe. Recommend further evaluation with biopsy, PET- CT, or follow-up CT at 3 months, and 9 months, and 24 months. - CXR: Right upper lobe traction bronchiectasis with the probable granulomatous disease. Concomitant right pleural parenchymal pathology here suggested- infiltrate, mass, scar or combination of the above are considerations. - HIV is negative - Hep panel is normal Lung mass, dry cough and night sweats - airborne precautions for suspected TB - CXR as above - Chest CT as above - continue Azithromycin 500 mg IVPB daily and Ceftriaxone 1gm IVPB daily for suspected community acquired pneumonia (started on 09/29) - Pulmonology, Dr. Thurston, consulted - will biopsy once thrombocytopenia corrected. Sputum for culture and sensitivity. Transfuse packed RBCs and platelets. Sputum AFB. Bone marrow biopsy - 09/29 sputum culture shows no growth or stain - 10/01 AFB sputum prelim is negative - blood culture prelim shows no growth after 3 days - ESR is elevated 58 (09/29) - 10/01 sputum AFB stain/culture is prelim negative - F/u legionella - strep pneumo negative - procalcitonin is wnl - CXR (10/02) shows apical opacity with associated pleural thickening. Nonspecific. Possible small left pleural effusion. Rule out old granulomatous infection. - Quantiferon gold test is negative - plan to discontinue airborne precautions in the am Emphysematous changes on Chest CT; likely COPD due to history of smoking - see CT results above - duonebs Q6H prn - Pulmonology, Dr. Thurston, on board Systolic and diastolic heart failure - Echo 09/28 shows LVEF of 36%, diastolic dysfunction. Trace MR. Mild TR. Small pericardial effusion. - CXR as above - f/u proBNP - consider lasix if edema worsens Positive FOBT - Hgb 4.6->8.3->8.5->8.0-> 7.6 today - protonox 40mg IVP daily - FLD, will advance as tolerated - GI Dr. Cox recs: likely aplastic, no endoscopy at this time, correct thrombocytopenia LBBB - EKG reveals LBBB, unsure if new onset - currently asymptomatic - will monitor Prophylaxis - DVT contraindicated due to thrombocytopenia and anemia - GI: protonix 40 mg IVP Case discussed with Dr. Montoya. All medical management as per Dr. Lindsay Soares PGY-1 <Andrzej Mnotoya Jr. - Last Filed: 10/10/18 15:11> Objective - Vital Signs/Intake and Output Vital Signs (last 24 hours): Temp Pulse Resp BP Pulse Ox 99.4 F 100 H 20 117/62 99 10/10/18 08:24 10/10/18 08:24 10/10/18 08:24 10/10/18 08:24 10/10/18 08:24 Intake and Output: 10/10/18 10/10/18 06:59 18:59 Intake Total 630 Output Total 2000 Balance -1370 - Medications Medications: Current Medications Acetaminophen (Tylenol 325mg Tab) 650 mg PO ONCE ONE Stop: 10/11/18 12:01 Diphenhydramine HCl (Benadryl) 25 mg IVP ONCE ONE Stop: 10/11/18 12:01 Diphenhydramine HCl (Benadryl) 25 mg IVP ONCE ONE Stop: 10/10/18 13:16 Docusate Sodium (Colace) 100 mg PO BID [facility] Last Admin: 10/10/18 10:37 Dose: Not Given Famotidine (Pepcid) 20 mg IVP ONCE ONE Stop: 10/11/18 14:01 Hydrocortisone (Anusol-Hc) 0 gm OK BID [facility] Last Admin: 10/10/18 10:38 Dose: 2.5 % Decitabine 30 mg/ Sodium (Chloride) 256 mls @ 256 mls/hr IV .Q1H ONE Stop: 10/11/18 13:29 Ondansetron HCl (Zofran Inj) 4 mg IVP DAILY@ONCE PRN PRN Reason: Nausea/Vomiting Pantoprazole Sodium (Protonix Inj) 40 mg IVP DAILY [facility] Last Admin: 10/10/18 10:36 Dose: 40 mg Saccharomyces Boulardii (Florastor) 250 mg PO BID [facility] Last Admin: 10/10/18 10:37 Dose: 250 mg Tamsulosin HCl (Flomax) 0.4 mg PO BID [facility] - Labs Labs: 10/10/18 08:04 10/10/18 08:04 PT 12.9 SECONDS (9.7-12.2) H 09/28/18 11:39 INR 1.2 09/28/18 11:39 APTT 25 SECONDS (21-34) 09/28/18 11:39 Attending/Attestation - Attestation I have personally seen and examined this patient.: Yes I have fully participated in the care of the patient.: Yes I have reviewed all pertinent clinical information, including history, physical exam and plan: Yes Notes (Text): 10/10/18 15:11 Reviewed resident note. Agree with findings and plan of care.
[2018-10-03 11:51] LABS: LYMPH # 0.6 K/uL (1.0-4.3); LYMPH % 27.4 % (20.0-40.0); MONO % 57.1 % (0.0-10.0); NEUT # 0.3 K/uL (1.8-7.0); NEUT % 15.5 % (50.0-75.0); NRBC % 10.2 % (0.0-2.0)
[2018-10-03 11:52] LABS: MONO # 1.2 K/uL (0.0-0.8)
[2018-10-03 11:53] LABS: LYMPHOCYTE 39 % (20-40); MONOCYTE 45 % (0-10); NEUTROPHIL 16 % (50-75); NUCLEATED RED BLOOD CELL 9 % (0-0); TOTAL CELLS COUNTED 100
[2018-10-03 11:54] LABS: ANISOCYTOSIS SLIGHT; HYPOCHROMIC SLIGHT; MICROCYTOSIS SLIGHT; OVALOCYTES SLIGHT; PLATELET ESTIMATE MARKEDLY DECREASED (NORMAL); POIKILOCYTOSIS SLIGHT; POLYCHROMIC SLIGHT; SCHISTOCYTES SLIGHT; TEARDROP CELLS SLIGHT
[2018-10-03 11:55] LABS: ACANTHOCYTES SLIGHT; BURR CELLS SLIGHT; SPHEROCYTES SLIGHT
--- NOTE | 2018-10-03 12:29 | CP.PCM.PN ---
Subjective - Date & Time of Evaluation Date of Evaluation: 10/03/18 Time of Evaluation: 12:28 - Subjective Subjective: Pulmonary Follow up, Covering Dr Thurston The patient was Seen/interviewed and examined by me at the bedside, Medical records reviewed and Management issues were discussed and formulated with the house staff. Events reviewed 77-year-old male with no significant past medical history presented to emergency room complaining of fatigue and generalized weakness for the past few weeks. In ED found to be pancytopenic and has lung mass on CXR and CT scan. Currently on airborne isolation 10/01 Underwent Bone marrow aspiration and biopsy Patient comfortable, NAD Pt AAO x3, follows commands Afebrile, NSR Saturation 96% on room air Sputum AFB x 1 negative Objective - Vital Signs/Intake and Output Vital Signs (last 24 hours): Temp Pulse Resp BP Pulse Ox 97.8 F 88 18 127/73 97 10/03/18 07:00 10/03/18 07:00 10/03/18 07:00 10/03/18 07:00 10/03/18 07:00 - Medications Medications: Current Medications Albuterol/Ipratropium (Duoneb 3 Mg/0.5 Mg (3 Ml) Ud) 3 ml INH RQ6 PRN PRN Reason: Shortness of Breath Azithromycin 500 mg/ Sodium (Chloride) 250 mls @ 250 mls/hr IVPB DAILY [facility]; Protocol Ceftriaxone Sodium 1 gm/ (Sodium Chloride) 100 mls @ 100 mls/hr IVPB Q12H [facility]; Protocol Last Admin: 10/03/18 12:10 Dose: 100 mls/hr Pantoprazole Sodium (Protonix Inj) 40 mg IVP DAILY [facility] Last Admin: 10/03/18 09:13 Dose: 40 mg - Labs Labs: 10/03/18 06:19 10/03/18 06:19 PT 12.9 SECONDS (9.7-12.2) H 09/28/18 11:39 INR 1.2 09/28/18 11:39 APTT 25 SECONDS (21-34) 09/28/18 11:39 - Constitutional Appears: Well, Non-toxic - Head Exam Head Exam: ATRAUMATIC, NORMAL INSPECTION - Eye Exam Eye Exam: EOMI, Normal appearance, PERRL - ENT Exam ENT Exam: Mucous Membranes Moist, Normal Exam - Neck Exam Neck Exam: Full ROM, Normal Inspection. absent: Lymphadenopathy - Respiratory Exam Respiratory Exam: Clear to Ausculation Bilateral, NORMAL BREATHING PATTERN - Cardiovascular Exam Cardiovascular Exam: REGULAR RHYTHM, +S1, +S2. absent: Murmur - GI/Abdominal Exam GI & Abdominal Exam: Soft, Normal Bowel Sounds. absent: Tenderness - Back Exam Back Exam: NORMAL INSPECTION. absent: CVA tenderness (L), CVA tenderness (R) - Neurological Exam Neurological Exam: Altered, Awake Assessment and Plan (1) Lung mass Status: Acute (2) Pancytopenia Status: Acute (3) Pneumonia Status: Acute (4) Symptomatic anemia Status: Acute - Assessment and Plan (Free Text) Assessment: Patient will need biopsy once thrombocytopenia corrected Respiratory isolation Sputum AFB smear and C/S x3 Albuterol/Ipratropium INH Q6H PRN Azithromycin 500 mg IVPB DAILY [facility]DA Ceftriaxone 1 Gmr IVPB Q12H [facility]DA Blood C/S negative Followup bone marrow biopsy Pt's current status is discussed with pt / pt's at bedside
[2018-10-03] MEDS: Azithromycin 500 MG in Sodium Chloride 0.9% 250 ML IVPB SCH (13:34)
--- NOTE | 2018-10-04 01:17 | CP.PCM.PN ---
Subjective - Date & Time of Evaluation Date of Evaluation: 10/01/18 Time of Evaluation: 16:00 - Subjective Subjective: Bone marrow aspiration and biopsy procedure - Time-out was called to confirm: patients name and date of , procedure, side and site of biopsy, safety procedures followed. - Performed by: self. - Informed consent: signed by patient. - Aspiration and biopsy site: [left]superior posterior iliac crest. - Patient position: [right lateral decubitus] - Preparation and technique: sterile preparation of site with [place], Chloraprep, draped to expose aspirate/biopsy area, local anesthesia with 1% lidocaine (approximately 10ml), frequent pressure application on incision to maintain hemostasis. - Tissue obtained: bone marrow aspirate and biopsy were successfully obtained in sterile manner.- Toleration of procedure and any complications: slight localized bleeding (<1ml). Patient tolerated procedure well with minimal pain. Objective - Vital Signs/Intake and Output Vital Signs (last 24 hours): Temp Pulse Resp BP Pulse Ox 97.9 F 85 20 122/71 99 10/03/18 15:00 10/03/18 22:17 10/03/18 15:00 10/03/18 15:00 10/03/18 15:00 Intake and Output: 10/03/18 10/04/18 18:59 06:59 Intake Total 480 Balance 480 - Medications Medications: Current Medications Albuterol/Ipratropium (Duoneb 3 Mg/0.5 Mg (3 Ml) Ud) 3 ml INH RQ6 PRN PRN Reason: Shortness of Breath Azithromycin 500 mg/ Sodium (Chloride) 250 mls @ 250 mls/hr IVPB DAILY [facility]; Protocol Last Admin: 10/03/18 13:34 Dose: 250 mls/hr Ceftriaxone Sodium 1 gm/ (Sodium Chloride) 100 mls @ 100 mls/hr IVPB Q12H [facility]; Protocol Last Admin: 10/04/18 00:02 Dose: 100 mls/hr Pantoprazole Sodium (Protonix Inj) 40 mg IVP DAILY [facility] Last Admin: 10/03/18 09:13 Dose: 40 mg - Labs Labs: 10/03/18 06:19 10/03/18 06:19 PT 12.9 SECONDS (9.7-12.2) H 09/28/18 11:39 INR 1.2 09/28/18 11:39 APTT 25 SECONDS (21-34) 09/28/18 11:39 - Head Exam Head Exam: ATRAUMATIC - Eye Exam Eye Exam: Normal appearance - ENT Exam ENT Exam: Mucous Membranes Dry - Respiratory Exam Respiratory Exam: NORMAL BREATHING PATTERN - Cardiovascular Exam Cardiovascular Exam: +S1, +S2 - GI/Abdominal Exam GI & Abdominal Exam: Normal Bowel Sounds - Extremities Exam Extremities Exam: Normal Inspection Assessment and Plan (1) Pancytopenia Assessment & Plan: f/u bone marrow biopsy results transfusion support PRN Status: Acute (2) Lung mass Status: Acute
--- NOTE | 2018-10-04 01:18 | CP.PCM.PN ---
Subjective - Date & Time of Evaluation Date of Evaluation: 10/02/18 Time of Evaluation: 17:00 - Subjective Subjective: No complaints. Flow cytometery shows AML Objective - Vital Signs/Intake and Output Vital Signs (last 24 hours): Temp Pulse Resp BP Pulse Ox 97.9 F 85 20 122/71 99 10/03/18 15:00 10/03/18 22:17 10/03/18 15:00 10/03/18 15:00 10/03/18 15:00 Intake and Output: 10/03/18 10/04/18 18:59 06:59 Intake Total 480 Balance 480 - Medications Medications: Current Medications Albuterol/Ipratropium (Duoneb 3 Mg/0.5 Mg (3 Ml) Ud) 3 ml INH RQ6 PRN PRN Reason: Shortness of Breath Azithromycin 500 mg/ Sodium (Chloride) 250 mls @ 250 mls/hr IVPB DAILY [facility]; Protocol Last Admin: 10/03/18 13:34 Dose: 250 mls/hr Ceftriaxone Sodium 1 gm/ (Sodium Chloride) 100 mls @ 100 mls/hr IVPB Q12H [facility]; Protocol Last Admin: 10/04/18 00:02 Dose: 100 mls/hr Pantoprazole Sodium (Protonix Inj) 40 mg IVP DAILY [facility] Last Admin: 10/03/18 09:13 Dose: 40 mg - Labs Labs: 10/03/18 06:19 10/03/18 06:19 PT 12.9 SECONDS (9.7-12.2) H 09/28/18 11:39 INR 1.2 09/28/18 11:39 APTT 25 SECONDS (21-34) 09/28/18 11:39 - Head Exam Head Exam: ATRAUMATIC - Eye Exam Eye Exam: Normal appearance - ENT Exam ENT Exam: Mucous Membranes Dry - Respiratory Exam Respiratory Exam: NORMAL BREATHING PATTERN - Cardiovascular Exam Cardiovascular Exam: +S1, +S2 - GI/Abdominal Exam GI & Abdominal Exam: Normal Bowel Sounds Assessment and Plan (1) AML (acute myeloblastic leukemia) Assessment & Plan: per flow cytometery on bone marrow; appears non M3 awaiting further testing not a candidate for induction chemotherapy given age and poor performance status will attempt treatment with decitabine as inpatient if administration consents transfusion support, neutropenic precaution discussed results with the patient and his family Status: Acute (2) Pancytopenia Status: Acute (3) Lung mass Status: Acute
[2018-10-04 06:41] LABS: HEMOGLOBIN 8.4 g/dL (12.0-18.0); MEAN CELL VOLUME 86.1 fL (80.0-94.0); MEAN CORPUSCULAR HEMOGLOBIN 27.6 pg (27.0-31.0); MEAN PLATELET VOLUME 10.9 fL (7.2-11.7); RBC 3.05 Mil/uL (4.40-5.90); RED CELL DISTRIBUTION WIDTH 16.2 % (11.5-14.5); WHITE BLOOD COUNT 2.2 K/uL (4.8-10.8)
[2018-10-04 06:53] LABS: PLATELET COUNT 15 K/uL (130-400)
[2018-10-04 07:00] LABS: ALB/GLOB RATIO 0.8 (1.0-2.1); ALBUMIN 2.6 g/dL (3.5-5.0); ALT/SGPT 22 U/L (21-72); AST/SGOT 21 U/L (17-59); BLOOD UREA NITROGEN 15 mg/dL (9-20); CALCIUM 7.9 mg/dl (8.6-10.4); GFR NON-AFRICAN AMERICAN 59
[2018-10-04 08:53] LABS: PLATELET COUNT MANUAL 11 K/uL (130-400)
[2018-10-04 09:06] LABS: LYMPH # 0.9 K/uL (1.0-4.3); MONO # 0.8 K/uL (0.0-0.8); NEUT # 0.5 K/uL (1.8-7.0)
[2018-10-04 09:08] LABS: ANISOCYTOSIS MODERATE; LYMPHOCYTE 40 % (20-40); MICROCYTOSIS SLIGHT; MONOCYTE 37 % (0-10); NEUTROPHIL 23 % (50-75); NUCLEATED RED BLOOD CELL 15 % (0-0); PLATELET ESTIMATE MARKEDLY DECREASED (NORMAL); POIKILOCYTOSIS MODERATE; TOTAL CELLS COUNTED 100
[2018-10-04 09:09] LABS: ACANTHOCYTES SLIGHT; HYPOCHROMIC MODERATE; POLYCHROMIC SLIGHT; TARGET CELLS SLIGHT; TEARDROP CELLS SLIGHT
--- NOTE | 2018-10-04 10:22 | CP.PCM.PN ---
<Néstor Soares - Last Filed: 10/04/18 16:43> Subjective - Date & Time of Evaluation Date of Evaluation: 10/04/18 Time of Evaluation: 10:14 - Subjective Subjective: PGY1 Medicine progress note for Dr. Montoya Pt seen and examined at bedside. Pt is resting comfortably, and no acute events overnight. Pt is complaining of some swelling to the bilateral lower extremities, pt has hx of CHF and hypoalbuminemia. Airborne precautions have been discontinued. Denies fever, chills, hematochezia, chest pain, sob, abdominal pain, n/v/d, dizziness, lightheadedness, hematuria, hemoptysis, leg pain. 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 Objective - Vital Signs/Intake and Output Vital Signs (last 24 hours): Temp Pulse Resp BP Pulse Ox 98.6 F 99 H 20 128/76 97 10/04/18 08:27 10/04/18 08:27 10/04/18 08:27 10/04/18 08:27 10/04/18 08:27 - Medications Medications: Current Medications Albuterol/Ipratropium (Duoneb 3 Mg/0.5 Mg (3 Ml) Ud) 3 ml INH RQ6 PRN PRN Reason: Shortness of Breath Azithromycin 500 mg/ Sodium (Chloride) 250 mls @ 250 mls/hr IVPB DAILY [facility]; Protocol Last Admin: 10/03/18 13:34 Dose: 250 mls/hr Ceftriaxone Sodium 1 gm/ (Sodium Chloride) 100 mls @ 100 mls/hr IVPB Q12H [facility]; Protocol Last Admin: 10/04/18 00:02 Dose: 100 mls/hr Pantoprazole Sodium (Protonix Inj) 40 mg IVP DAILY [facility] Last Admin: 10/03/18 09:13 Dose: 40 mg - Labs Labs: 10/04/18 06:36 10/04/18 06:36 PT 12.9 SECONDS (9.7-12.2) H 09/28/18 11:39 INR 1.2 09/28/18 11:39 APTT 25 SECONDS (21-34) 09/28/18 11:39 - Additional Findings Additional findings: - Constitutional Appears: Non-toxic - Head Exam Head Exam: ATRAUMATIC, NORMAL INSPECTION, NORMOCEPHALIC - Eye Exam Eye Exam: EOMI, Normal appearance Pupil Exam: NORMAL ACCOMODATION, PERRL - ENT Exam ENT Exam: Mucous Membranes Moist - Neck Exam Neck exam: Negative for: Lymphadenopathy - Respiratory Exam Respiratory Exam: NORMAL BREATHING PATTERN. (+) scant rales absent: Chest Wall Tenderness, Rhonchi, Wheezes. - Cardiovascular Exam Cardiovascular Exam: +S1, +S2. absent: Systolic Murmur - GI/Abdominal Exam GI & Abdominal Exam: Normal Bowel Sounds, Soft. absent: Tenderness, Distension - Extremities Exam Extremities exam: Positive for: full ROM, normal inspection. (+) 1+ pitting edema bilateral lower extremities to the rondon. Negative for: erythema, calf tenderness, pedal edema - Back Exam Back exam: normal inspection - Neurological Exam Neurological exam: Alert, Normal Gait, Oriented x3 - Psychiatric Exam Psychiatric exam: Normal Affect, Normal Mood - Skin Skin Exam: Dry, Normal Color, Warm Assessment and Plan - Assessment and Plan (Free Text) Assessment: 77 y M w/ no PMHx: presents to ED for weakness, in ED found to be pancytopenic. prelim bone biopsy shows AML (pending final report) Pancytopenia - WBC 2.8, Hgb 4.6, Plt 13 on admission - peripheral smear shows moderate teardrop cells possible myelofibrosis - transfused: 2 X PRBCs & 2 PLTs on admission - 10/01 transfused one unit of PLTs - H/H is stable; Thrombocytopenia is noted with a manual count of 11 today - Heme/Onc, Dr. bobby, consulted Case discussed with Dr. Bobby, who requests that no platelet transfusion be done unless pt's manual count is less than 10, or patient has signs of bleeding. -10/01: pt noted to have blood streaks in sputum sample, will transfuse 1 unit of PLTs. Bone marrow biopsy will be done today as per Dr. Bobby -10/02: Case discussed with Dr. Bobby, who states that prelim pathology report shows AML. Pt is too frail for induction chemotherapy. Possibly hypomethylating agent in the future. - CT: Emphysematous changes. Biapical pleural thickening. Bilateral upper lobe bulla. Abnormal right upper lobe spiculated/irregular opacities possibly malignant neoplasm or consolidation such as pneumonia. Calcifications are evident in this region, as are ground-glass opacities and bronchiectasis. Evidence of chronic interstitial fibrosis. Small bilateral pleural effusions and dependent atelectasis. No pneumothorax. Nodular opacities measuring approximatel y 6 mm in the left upper lobe (series 4, image 34) and 3 mm in the lingula (64). More localized ground-glass opacities noted in the left lower lobe (image 75). Limited visualized portions of the upper abdomen: Bilateral adrenal gland hypertrophy. Small hiatal hernia/distal esophageal wall thickening. No large central or segmental pulmonary embolus identified. Correlate with clinical status. Nodular opacities measuring approximately 6 mm in the left upper lobe and 3 mm in the lingula. More localized ground-glass rounded opacity noted in the left lower lobe. Recommend further evaluation with biopsy, PET- CT, or follow-up CT at 3 months, and 9 months, and 24 months. - CXR: Right upper lobe traction bronchiectasis with the probable granulomatous disease. Concomitant right pleural parenchymal pathology here suggested- infiltrate, mass, scar or combination of the above are considerations. - HIV is negative - Hep panel is normal Lung mass, dry cough and night sweats - airborne precautions for suspected TB - CXR as above - Chest CT as above - continue Azithromycin 500 mg IVPB daily and Ceftriaxone 1gm IVPB daily for suspected community acquired pneumonia (started on 09/29) - Pulmonology, Dr. Thurston, consulted - will biopsy once thrombocytopenia corrected. Sputum for culture and sensitivity. Transfuse packed RBCs and platelets. Sputum AFB. Bone marrow biopsy - 09/29 sputum culture shows no growth or stain - blood culture prelim shows no growth after 3 days - ESR is elevated 58 (09/29) - 10/01 sputum AFB stain/culture is prelim negative - F/u legionella - strep pneumo negative - procalcitonin is wnl - CXR (10/02) shows apical opacity with associated pleural thickening. Nonspecific. Possible small left pleural effusion. Rule out old granulomatous infection. - Quantiferon gold test is negative - As per Dr. Thurston, can discontinue airborne isolation after AFB negative x 2 - f/u repeat AFB Emphysematous changes on Chest CT; likely COPD due to history of smoking - see CT results above - duonebs Q6H prn - Pulmonology, Dr. Thurston, on board Systolic and diastolic heart failure - Echo 09/28 shows LVEF of 36%, diastolic dysfunction. Trace MR. Mild TR. Small pericardial effusion. - CXR as above - proBNP is elevated from admission, 7130 - Lasix 40 mg PO x1 - continue to monitor Positive FOBT - Hgb 4.6->8.3->8.5->8.0-> 7.6-> 8.4 today - protonox 40mg PO daily - FLD, will advance as tolerated - GI Dr. Cox recs: likely aplastic, no endoscopy at this time, correct thrombocytopenia Diarrhea, nonbloody Likely secondary to antibiotics r/o c-diff with 2 samples Start florastor BID LBBB - EKG reveals LBBB, unsure if new onset - currently asymptomatic - will monitor Prophylaxis - DVT contraindicated due to thrombocytopenia and anemia - GI: protonix 40 mg IVP Case discussed with Dr. Montoya. All medical management as per Dr. Lindsay Soares PGY-1 <Andrzej Montoya Jr. - Last Filed: 10/10/18 15:10> Objective - Vital Signs/Intake and Output Vital Signs (last 24 hours): Temp Pulse Resp BP Pulse Ox 99.4 F 100 H 20 117/62 99 10/10/18 08:24 10/10/18 08:24 10/10/18 08:24 10/10/18 08:24 10/10/18 08:24 Intake and Output: 10/10/18 10/10/18 06:59 18:59 Intake Total 630 Output Total 2000 Balance -1370 - Medications Medications: Current Medications Acetaminophen (Tylenol 325mg Tab) 650 mg PO ONCE ONE Stop: 10/11/18 12:01 Diphenhydramine HCl (Benadryl) 25 mg IVP ONCE ONE Stop: 10/11/18 12:01 Diphenhydramine HCl (Benadryl) 25 mg IVP ONCE ONE Stop: 10/10/18 13:16 Docusate Sodium (Colace) 100 mg PO BID [facility] Last Admin: 10/10/18 10:37 Dose: Not Given Famotidine (Pepcid) 20 mg IVP ONCE ONE Stop: 10/11/18 14:01 Hydrocortisone (Anusol-Hc) 0 gm OR BID [facility] Last Admin: 10/10/18 10:38 Dose: 2.5 % Decitabine 30 mg/ Sodium (Chloride) 256 mls @ 256 mls/hr IV .Q1H ONE Stop: 10/11/18 13:29 Ondansetron HCl (Zofran Inj) 4 mg IVP DAILY@ONCE PRN PRN Reason: Nausea/Vomiting Pantoprazole Sodium (Protonix Inj) 40 mg IVP DAILY [facility] Last Admin: 10/10/18 10:36 Dose: 40 mg Saccharomyces Boulardii (Florastor) 250 mg PO BID [facility] Last Admin: 10/10/18 10:37 Dose: 250 mg Tamsulosin HCl (Flomax) 0.4 mg PO BID [facility] - Labs Labs: 10/10/18 08:04 10/10/18 08:04 PT 12.9 SECONDS (9.7-12.2) H 09/28/18 11:39 INR 1.2 09/28/18 11:39 APTT 25 SECONDS (21-34) 09/28/18 11:39 Attending/Attestation - Attestation I have personally seen and examined this patient.: Yes I have fully participated in the care of the patient.: Yes I have reviewed all pertinent clinical information, including history, physical exam and plan: Yes Notes (Text): 10/10/18 15:10 Reviewed resident note. Agree with findings and plan of care.
[2018-10-04] MEDS: Azithromycin 500 MG in Sodium Chloride 0.9% 250 ML IVPB SCH (10:40)
--- NOTE | 2018-10-04 15:08 | CP.PCM.CON ---
History of Present Illness - History of Present Illness History of Present Illness: Surgery progress note for Dr. Porter consulted for: ventral hernia Pt is a 77M who was referred to the ED for anemia and diagnosed with CHF and probable AML on this admission. Patient has been having diarrhea multiple times a day yesterday but today was unable to urinate and unable to have a bowel movement. After straining to have a BM for a while patient began to experience severe lower abdominal pain and was noted to have midline low abdominal swelling by the medicine resident. Surgical team was consulted for possible hernia. Just prior to exam a wolff catheter was inserted with 800cc's immediate urine output, after which abdominal swelling and pain resolved. Patient denies any nausea, vomiting, or melena/hematochezia. Last BM was last night. Patient has had a hemoccult positive blood test upon admission. PMH: denies PSH: Denies ALL: nkda Social: smoked 1PPD for almost 40 years, quit 20 years ago. Denies ETOH. Denies drug use Review of Systems - Review of Systems All systems: reviewed and no additional remarkable complaints except (as per HPI) Past Patient History - Infectious Disease Hx of Infectious Diseases: None - Past Medical History & Family History Past Medical History?: Yes - Past Social History Smoking Status: Former Smoker Alcohol: None Drugs: Denies - CARDIAC Hx Cardiac Disorders: No - PULMONARY Hx Respiratory Disorders: No - NEUROLOGICAL Hx Neurological Disorder: No - HEENT Hx HEENT Problems: No - ENDOCRINE/METABOLIC Hx Endocrine Disorders: No - HEMATOLOGICAL/ONCOLOGICAL Hx Blood Disorders: Yes Other/Comment: Hgb 4.6 - INTEGUMENTARY Hx Dermatological Problems: No - MUSCULOSKELETAL/RHEUMATOLOGICAL Hx Musculoskeletal Disorders: No - GASTROINTESTINAL Hx Gastrointestinal Disorders: Yes Other/Comment: (+) stool occult blood - GENITOURINARY/GYNECOLOGICAL Hx Genitourinary Disorders: No - PSYCHIATRIC Hx Substance Use: No - SURGICAL HISTORY Hx Surgeries: No - ANESTHESIA Hx Anesthesia: No Meds Allergies/Adverse Reactions: Allergies Allergy/AdvReac Type Severity Reaction Status Date / Time No Known Allergies Allergy Verified 09/28/18 11:16 - Medications Medications: Current Medications Albuterol/Ipratropium (Duoneb 3 Mg/0.5 Mg (3 Ml) Ud) 3 ml INH RQ6 PRN PRN Reason: Shortness of Breath Hydrocortisone (Anusol-Hc) 0 gm [place] BID [facility] Azithromycin 500 mg/ Sodium (Chloride) 250 mls @ 250 mls/hr IVPB DAILY [facility]; Protocol Last Admin: 10/04/18 10:40 Dose: 250 mls/hr Ceftriaxone Sodium 1 gm/ (Sodium Chloride) 100 mls @ 100 mls/hr IVPB Q12H [facility]; Protocol Last Admin: 10/04/18 00:02 Dose: 100 mls/hr Ondansetron HCl (Zofran Inj) 4 mg IVP DAILY@ONCE PRN PRN Reason: Nausea/Vomiting Pantoprazole Sodium (Protonix Inj) 40 mg IVP DAILY [facility] Last Admin: 10/04/18 10:42 Dose: 40 mg Saccharomyces Boulardii (Florastor) 250 mg PO BID [facility] Physical Exam - Constitutional Appears: Non-toxic, No Acute Distress, Cachectic - Head Exam Head Exam: ATRAUMATIC, NORMOCEPHALIC - Eye Exam Eye Exam: Normal appearance. absent: Conjunctival injection, Scleral icterus - ENT Exam ENT Exam: Mucous Membranes Moist, Normal Oropharynx - Respiratory Exam Respiratory Exam: NORMAL BREATHING PATTERN. absent: Accessory Muscle Use, Respiratory Distress - Cardiovascular Exam Cardiovascular Exam: RRR - GI/Abdominal Exam GI & Abdominal Exam: Soft, Tenderness (mild tenderness in the suprapubis). abs ent: Distended, Hernia - Rectal Exam Rectal Exam: Hemorrhoids. absent: Fecal Impaction Additional comments: enlarged, boggy prostate - Exam Exam: Circumcision - Extremities Exam Extremities exam: Positive for: pedal edema. Negative for: calf tenderness - Neurological Exam Neurological exam: Alert, Oriented x3 - Psychiatric Exam Psychiatric exam: Flat Affect, Normal Mood - Skin Skin Exam: Dry, Normal Color, Warm Results - Vital Signs Recent Vital Signs: Last Vital Signs Temp 98.6 F 10/04/18 08:27 Pulse 99 H 10/04/18 08:27 Resp 20 10/04/18 08:27 BP 119/73 10/04/18 10:51 Pulse Ox 97 10/04/18 08:27 - Labs Result Diagrams: 10/04/18 06:36 10/04/18 06:36 Labs: Laboratory Results - last 24 hr 10/04/18 10/04/18 10/04/18 06:36 06:36 11:33 WBC 2.2 L RBC 3.05 L Hgb 8.4 L Hct 26.3 L MCV 86.1 MCH 27.6 MCHC 32.0 L RDW 16.2 H Plt Count 15 L* Manual Plt Count 11 L* D MPV 10.9 Neut % (Auto) 23.0 L Lymph % (Auto) 41.0 H [place] % (Auto) 36.0 H Eos % (Auto) 0.0 Baso % (Auto) 0.0 Neut # (Auto) 0.5 L Lymph # (Auto) 0.9 L [place] # (Auto) 0.8 Eos # (Auto) 0.0 Baso # (Auto) 0.0 Neutrophils % (Manual) 23 L Lymphocytes % (Manual) 40 Monocytes % (Manual) 37 H Nucleated RBC % 15 H Platelet Estimate Markedly decreased L Polychromasia Slight Hypochromasia (manual) Moderate Poikilocytosis (manual Moderate Anisocytosis (manual) Moderate Microcytosis (manual) Slight Macrocytosis (manual) Slight Target Cells Slight Tear Drop Cells Slight Acanthocytes (Spur) Slight Sodium 137 Potassium 4.0 Chloride 106 Carbon Dioxide 24 Anion Gap 11 BUN 15 Creatinine 1.2 Est GFR ( Amer) > 60 Est GFR (Non-Af Amer) 59 POC Glucose (mg/dL) 164 H Random Glucose 103 Calcium 7.9 L Phosphorus 3.5 Magnesium 2.0 Total Bilirubin 0.4 AST 21 ALT 22 Alkaline Phosphatase 68 Total Protein 5.8 L Albumin 2.6 L Globulin 3.1 Albumin/Globulin Ratio 0.8 L Assessment & Plan - Assessment and Plan (Free Text) Assessment: 77M with abdominal pain and swelling, urinary retention, likely no hernia Plan: F/U CT with PO contrast If negative, no indication for surgical intervention Recommend urology consult Stool softerners PRN pain medication Discussed with Dr. Porter, who agrees with above Noelle Chowdhury, PGY2
[2018-10-04] MEDS ORDERED: Iohexol 240 (50 ml) PO ONE (15:45)
--- NOTE | 2018-10-04 16:41 | CP.PCM.PN ---
Subjective - Date & Time of Evaluation Date of Evaluation: 10/04/18 Time of Evaluation: 11:20 - Subjective Subjective: Patient seen and examined at bedside, lying down comfortably. Denies chest pain, palpitations, SOB, cough, fevers/chills Pt complains of mild b/l lower extremity swelling 10/01 AFB is negative Repeat AFB ordered, results pending Bone marrow biopsy revealed AML Ur L.pneumophila Ag is pending Follow up on 2nd AFB results Lung biopsy follow up at outpatient Objective - Vital Signs/Intake and Output Vital Signs (last 24 hours): Temp Pulse Resp BP Pulse Ox 97.4 F L 88 20 114/67 96 10/04/18 15:00 10/04/18 15:00 10/04/18 15:00 10/04/18 15:00 10/04/18 15:00 - Medications Medications: Current Medications Albuterol/Ipratropium (Duoneb 3 Mg/0.5 Mg (3 Ml) Ud) 3 ml INH RQ6 PRN PRN Reason: Shortness of Breath Hydrocortisone (Anusol-Hc) 0 gm [place] BID [facility] Azithromycin 500 mg/ Sodium (Chloride) 250 mls @ 250 mls/hr IVPB DAILY [facility]; Protocol Last Admin: 10/04/18 10:40 Dose: 250 mls/hr Ceftriaxone Sodium 1 gm/ (Sodium Chloride) 100 mls @ 100 mls/hr IVPB Q12H [facility]; Protocol Last Admin: 10/04/18 14:00 Dose: 100 mls/hr Ondansetron HCl (Zofran Inj) 4 mg IVP DAILY@ONCE PRN PRN Reason: Nausea/Vomiting Pantoprazole Sodium (Protonix Inj) 40 mg IVP DAILY [facility] Last Admin: 10/04/18 10:42 Dose: 40 mg Saccharomyces Boulardii (Florastor) 250 mg PO BID [facility] Tamsulosin HCl (Flomax) 0.4 mg PO DAILY [facility] - Labs Labs: 10/04/18 06:36 10/04/18 06:36 PT 12.9 SECONDS (9.7-12.2) H 09/28/18 11:39 INR 1.2 09/28/18 11:39 APTT 25 SECONDS (21-34) 09/28/18 11:39 Assessment and Plan (1) Lung mass Status: Acute (2) Pancytopenia Status: Acute (3) Pneumonia Status: Acute
--- NOTE | 2018-10-04 18:52 | CT ---
Date of service: 10/04/2018 PROCEDURE: CT Abdomen and Pelvis with contrast HISTORY: possible ventral hernia s/p straining for bm COMPARISON: 09/29/2018 CT abdomen and pelvis 09/28/2018 CT thorax TECHNIQUE: Oral contrast only. Radiation dose: Total exam DLP = <inf_radiation_dlp> mGy-cm. This CT exam was performed using one or more of the following dose reduction techniques: Automated exposure control, adjustment of the mA and/or kV according to patient size, and/or use of iterative reconstruction technique. FINDINGS: LOWER THORAX: New pneumothorax, left-sided incompletely visualized. Bilateral pleural effusions identified as is compressive atelectasis, these are stable findings. Small pericardial effusion. Similar finding identified previously. LIVER: Incompletely visualized masses in the liver, findings better visualized on the contrast-enhanced CT of the abdomen and pelvis performed 09/29/2018. GALLBLADDER AND BILE DUCTS: High density sludge identified in the gallbladder. PANCREAS: Unremarkable. No gross lesion or ductal dilatation. SPLEEN: Unremarkable. ADRENALS: Unremarkable. No mass. KIDNEYS AND URETERS: Unremarkable. No hydronephrosis. No solid mass. VASCULATURE: Unremarkable. No aortic aneurysm. Atherosclerotic calcification and mural plaque present. Findings are seen throughout the aorta BOWEL: No evidence of mechanical bowel obstruction. APPENDIX: Normal appendix. PERITONEUM: Unremarkable. No free fluid. No free air. LYMPH NODES: Unremarkable. No enlarged lymph nodes. BLADDER: Traylor catheter identified in a decompressed urinary bladder. REPRODUCTIVE: Markedly enlarged prostate. BONES: No acute fracture. Stable sclerotic foci identified right iliac bone. Sclerotic focus L4 vertebral body. No additional sclerotic or lytic abnormalities. OTHER FINDINGS: Worsening edema and anasarca. IMPRESSION: New left pneumothorax which is incompletely visualized. Follow-up CT scan of the entire thorax recommended. Additional benign and/or incidental findings described above. These are unchanged. Critical results protocol: Study completed at 18:19. Verbal results and read back provided at 18:45. I discussed the findings with the nurse involved in the care and management this patient (Beck
[2018-10-04] MEDS: Saccharomyces Boulardi 250 mg Cap PO SCH (19:10)
[2018-10-04] MEDS: Hydrocortisone 2.5% Rectal Cream(30 gm) PR SCH (19:11)
--- NOTE | 2018-10-04 20:20 | CP.PCM.CON ---
<Sydni Yan - Last Filed: 10/04/18 20:26> History of Present Illness - History of Present Illness History of Present Illness: CT Surgery Consult: Dr. Nunes Pt is a 77M who presented to with complaints of generalized weakness and fatigue. 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 Bone marrow biopsy was done conforming the diagnosis. Pt was also found to have mass/nodule in the RUL as well as masses in the liver concerning for malignancy. Pt is currently being worked up to r/o TB. Earlier today, pt was found to be straining in order to urinate and "a bulge" was noticed on physical exam for which surgery was consulted to r/o hernia. A CT of the abdomen/pelvis was ordered to evaluate & did not show any hernia, however pt was found to have an incidental finding of left pneumothorax as seen on one cut of the CT abdomen. Cardiothoracic surgery has now been consulted to evaluate. Currently, pt is resting comfortably in bed and denies any respiratory problems. He states he is able to breathe without difficulty and speak in full sentences. Pt denies chest pain, SOB, fevers/chills or other complaints. PMHx: denies PSHx: denies SocialHx: smoked 1PPD x 40yrs, denies EtOH/drugs NKDA Review of Systems - Review of Systems All systems: reviewed and no additional remarkable complaints except (as per HPI) Past Patient History - Infectious Disease Hx of Infectious Diseases: None - Past Medical History & Family History Past Medical History?: Yes - Past Social History Smoking Status: Former Smoker Alcohol: None Drugs: Denies - CARDIAC Hx Cardiac Disorders: No - PULMONARY Hx Respiratory Disorders: No - NEUROLOGICAL Hx Neurological Disorder: No - HEENT Hx HEENT Problems: No - ENDOCRINE/METABOLIC Hx Endocrine Disorders: No - HEMATOLOGICAL/ONCOLOGICAL Hx Blood Disorders: Yes Other/Comment: Hgb 4.6 - INTEGUMENTARY Hx Dermatological Problems: No - MUSCULOSKELETAL/RHEUMATOLOGICAL Hx Musculoskeletal Disorders: No - GASTROINTESTINAL Hx Gastrointestinal Disorders: Yes Other/Comment: (+) stool occult blood - GENITOURINARY/GYNECOLOGICAL Hx Genitourinary Disorders: No - PSYCHIATRIC Hx Substance Use: No - SURGICAL HISTORY Hx Surgeries: No - ANESTHESIA Hx Anesthesia: No Meds Allergies/Adverse Reactions: Allergies Allergy/AdvReac Type Severity Reaction Status Date / Time No Known Allergies Allergy Verified 09/28/18 11:16 - Medications Medications: Current Medications Albuterol/Ipratropium (Duoneb 3 Mg/0.5 Mg (3 Ml) Ud) 3 ml INH RQ6 PRN PRN Reason: Shortness of Breath Docusate Sodium (Colace) 100 mg PO BID [facility] Last Admin: 10/04/18 19:11 Dose: 100 mg Hydrocortisone (Anusol-Hc) 0 gm DC BID [facility] Last Admin: 10/04/18 19:11 Dose: 2.5 % Azithromycin 500 mg/ Sodium (Chloride) 250 mls @ 250 mls/hr IVPB DAILY [facility]; Protocol Last Admin: 10/04/18 10:40 Dose: 250 mls/hr Ceftriaxone Sodium 1 gm/ (Sodium Chloride) 100 mls @ 100 mls/hr IVPB Q12H [facility]; Protocol Last Admin: 10/04/18 14:00 Dose: 100 mls/hr Ondansetron HCl (Zofran Inj) 4 mg IVP DAILY@ONCE PRN PRN Reason: Nausea/Vomiting Pantoprazole Sodium (Protonix Inj) 40 mg IVP DAILY [facility] Last Admin: 10/04/18 10:42 Dose: 40 mg Saccharomyces Boulardii (Florastor) 250 mg PO BID [facility] Last Admin: 10/04/18 19:10 Dose: 250 mg Tamsulosin HCl (Flomax) 0.4 mg PO DAILY [facility] Physical Exam - Constitutional Appears: Well, No Acute Distress - Head Exam Head Exam: ATRAUMATIC, NORMOCEPHALIC - Eye Exam Eye Exam: Normal appearance - ENT Exam ENT Exam: Mucous Membranes Moist - Respiratory Exam Respiratory Exam: Decreased Breath Sounds (on the left ), NORMAL BREATHING PATTERN - Cardiovascular Exam Cardiovascular Exam: RRR - GI/Abdominal Exam GI & Abdominal Exam: Soft. absent: Tenderness - Neurological Exam Neurological exam: Alert, Oriented x3 - Skin Skin Exam: Dry, Warm Results - Vital Signs Recent Vital Signs: Last Vital Signs Temp 97.4 F L 10/04/18 15:00 Pulse 91 H 10/04/18 16:00 Resp 20 10/04/18 15:00 BP 114/67 10/04/18 15:00 Pulse Ox 96 10/04/18 15:00 - Labs Result Diagrams: 10/04/18 06:36 10/04/18 06:36 Labs: Laboratory Results - last 24 hr 09/28/18 10/04/18 10/04/18 10:41 06:36 06:36 WBC 2.2 L RBC 3.05 L Hgb 8.4 L Hct 26.3 L MCV 86.1 MCH 27.6 MCHC 32.0 L RDW 16.2 H Plt Count 15 L* Manual Plt Count 11 L* D MPV 10.9 Neut % (Auto) 23.0 L Lymph % (Auto) 41.0 H [place] % (Auto) 36.0 H Eos % (Auto) 0.0 Baso % (Auto) 0.0 Neut # (Auto) 0.5 L Lymph # (Auto) 0.9 L [place] # (Auto) 0.8 Eos # (Auto) 0.0 Baso # (Auto) 0.0 Neutrophils % (Manual) 23 L Lymphocytes % (Manual) 40 Monocytes % (Manual) 37 H Nucleated RBC % 15 H Platelet Estimate Markedly decreased L Polychromasia Slight Hypochromasia (manual) Moderate Poikilocytosis (manual Moderate Anisocytosis (manual) Moderate Microcytosis (manual) Slight Macrocytosis (manual) Slight Target Cells Slight Tear Drop Cells Slight Acanthocytes (Spur) Slight Sodium 137 Potassium 4.0 Chloride 106 Carbon Dioxide 24 Anion Gap 11 BUN 15 Creatinine 1.2 Est GFR ( Amer) > 60 Est GFR (Non-Af Amer) 59 POC Glucose (mg/dL) Random Glucose 103 Calcium 7.9 L Phosphorus 3.5 Magnesium 2.0 Total Bilirubin 0.4 AST 21 ALT 22 Alkaline Phosphatase 68 Total Protein 5.8 L Albumin 2.6 L Globulin 3.1 Albumin/Globulin Ratio 0.8 L C. difficile Ag & Toxin Mycobacterial Culture See note 10/04/18 10/04/18 11:33 15:08 WBC RBC Hgb Hct MCV MCH MCHC RDW Plt Count Manual Plt Count MPV Neut % (Auto) Lymph % (Auto) [place] % (Auto) Eos % (Auto) Baso % (Auto) Neut # (Auto) Lymph # (Auto) [place] # (Auto) Eos # (Auto) Baso # (Auto) Neutrophils % (Manual) Lymphocytes % (Manual) Monocytes % (Manual) Nucleated RBC % Platelet Estimate Polychromasia Hypochromasia (manual) Poikilocytosis (manual Anisocytosis (manual) Microcytosis (manual) Macrocytosis (manual) Target Cells Tear Drop Cells Acanthocytes (Spur) Sodium Potassium Chloride Carbon Dioxide Anion Gap BUN Creatinine Est GFR ( Amer) Est GFR (Non-Af Amer) POC Glucose (mg/dL) 164 H Random Glucose Calcium Phosphorus Magnesium Total Bilirubin AST ALT Alkaline Phosphatase Total Protein Albumin Globulin Albumin/Globulin Ratio C. difficile Ag & Toxin Negative Mycobacterial Culture - Imaging and Cardiology CT scan - abdomen Status: Image reviewed by me, Report reviewed by me Assessment & Plan - Assessment and Plan (Free Text) Assessment: 77M with incidental pneumothorax as seen on CT abdomen/pelvis Plan: - pt completely asymptomatic, saturating 96-97% on RA and given pancytopenia with functional PLTs of 11, chest tube insertion is not appropriate at this time - pt should be monitored in the ICU overnight with supplemental oxygen as needed - recommend IR pigtail catheter in AM for pneumo as insertion of bigger chest tube will cause more damage - f/u CT chest to better evaluate pneumo - d/w Dr. Nunes who agrees with above Farrah <Michael Nunes - Last Filed: 10/08/18 13:50> Meds - Medications Medications: Current Medications Acetaminophen (Tylenol 325mg Tab) 650 mg PO ONCE ONE Stop: 10/09/18 12:01 Acetaminophen (Tylenol 325mg Tab) 650 mg PO ONCE ONE Stop: 10/10/18 12:01 Acetaminophen (Tylenol 325mg Tab) 650 mg PO ONCE ONE Stop: 10/11/18 12:01 Diphenhydramine HCl (Benadryl) 25 mg IVP ONCE ONE Stop: 10/09/18 12:01 Diphenhydramine HCl (Benadryl) 25 mg IVP ONCE ONE Stop: 10/10/18 12:01 Diphenhydramine HCl (Benadryl) 25 mg IVP ONCE ONE Stop: 10/11/18 12:01 Docusate Sodium (Colace) 100 mg PO BID [facility] Last Admin: 10/08/18 09:42 Dose: 100 mg Famotidine (Pepcid) 20 mg IVP ONCE ONE Stop: 10/09/18 12:01 Famotidine (Pepcid) 20 mg IVP ONCE ONE Stop: 10/10/18 12:01 Famotidine (Pepcid) 20 mg IVP ONCE ONE Stop: 10/11/18 14:01 Hydrocortisone (Anusol-Hc) 0 gm DC BID [facility] Last Admin: 10/08/18 09:44 Dose: 2.5 % Decitabine 30 mg/ Sodium (Chloride) 256 mls @ 256 mls/hr IV .Q1H ONE Stop: 10/09/18 13:29 Decitabine 30 mg/ Sodium (Chloride) 256 mls @ 256 mls/hr IV .Q1H ONE Stop: 10/10/18 13:29 Decitabine 30 mg/ Sodium (Chloride) 256 mls @ 256 mls/hr IV .Q1H ONE Stop: 10/11/18 13:29 Ondansetron HCl (Zofran Inj) 4 mg IVP DAILY@ONCE PRN PRN Reason: Nausea/Vomiting Pantoprazole Sodium (Protonix Inj) 40 mg IVP DAILY [facility] Last Admin: 10/08/18 09:42 Dose: 40 mg Saccharomyces Boulardii (Florastor) 250 mg PO BID [facility] Last Admin: 10/08/18 09:42 Dose: 250 mg Tamsulosin HCl (Flomax) 0.4 mg PO DAILY [facility] Last Admin: 10/08/18 09:42 Dose: 0.4 mg Results - Vital Signs Recent Vital Signs: Last Vital Signs Temp 99.1 F 10/08/18 08:34 Pulse 105 H 10/08/18 08:34 Resp 20 10/08/18 08:34 BP 153/78 H 10/08/18 08:34 Pulse Ox 98 10/08/18 08:34 - Labs Result Diagrams: 10/08/18 08:29 10/08/18 08:29 Labs: Laboratory Results - last 24 hr 10/08/18 10/08/18 08:29 08:29 WBC 2.6 L RBC 3.49 L Hgb 9.8 L Hct 30.0 L MCV 86.0 MCH 28.2 MCHC 32.8 L RDW 14.8 H Plt Count 10 L* MPV 12.0 H Neut % (Auto) 10.3 L Lymph % (Auto) 23.1 [place] % (Auto) 66.2 H Eos % (Auto) 0.4 Baso % (Auto) 0.0 Neut # (Auto) 0.3 L Lymph # (Auto) 0.6 L [place] # (Auto) 1.7 H Eos # (Auto) 0.0 Baso # (Auto) 0.0 Neutrophils % (Manual) 11 L Band Neutrophils % 1 Lymphocytes % (Manual) 31 Monocytes % (Manual) 57 H Nucleated RBC % 4 H Platelet Estimate Markedly decreased L [place] Platelets Present Hypochromasia (manual) Slight Poikilocytosis (manual Slight Anisocytosis (manual) Slight Tear Drop Cells Slight Ovalocytes Slight Sodium 136 Potassium 3.8 Chloride 102 Carbon Dioxide 29 Anion Gap 9 L BUN 16 Creatinine 1.0 Est GFR ( Amer) > 60 Est GFR (Non-Af Amer) > 60 Random Glucose 91 Calcium 8.3 L Phosphorus 3.7 Magnesium 1.9 Total Bilirubin 0.6 AST 20 ALT 19 L Alkaline Phosphatase 71 Total Protein 5.6 L Albumin 2.5 L Globulin 3.1 Albumin/Globulin Ratio 0.8 L Attending/Attestation - Attestation I have personally seen and examined this patient.: Yes I have fully participated in the care of the patient.: Yes I have reviewed all pertinent clinical information: Yes
--- NOTE | 2018-10-04 22:32 | CP.PCM.CON ---
History of Present Illness - History of Present Illness History of Present Illness: ICU evaluation requested for Pneumothorax 77M who admitted 09/28/18 complaints of generalized weakness and fatigueand severe anemia. 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 Pt was also found to have mass/nodule in the RUL as well as masses in the liver concerning for malignancy. Patient is currently in Respiratory isolation ,awaiting sputum samples to r/o TB. Earlier today, pt was found to be straining in order to urinate and "a bulge" was noticed on physical exam for which surgery was consulted to r/o hernia. A CT of the abdomen/pelvis was done. did not show any hernia, however pt was found to have an incidental finding of left pneumothorax as seen on one cut of the CT abdomen. A CtT chest done Currently, pt is resting comfortably in bed and denies any respiratory problems. He states he is able to breathe without difficulty and speak in full sentences. Pt denies chest pain, SOB, fevers/chills,abdominal pain or other complaints. Seen by Ct surgery.patient with severe thrombocytopenia and asymptomatic Review of Systems - Constitutional Constitutional: Anorexia, Weight Loss - EENT Eyes: absent: Blurred Vision Nose/Mouth/Throat: absent: Sore Throat, Neck Mass - Cardiovascular Cardiovascular: Leg Edema. absent: Chest Pain, Dyspnea - Respiratory Respiratory: absent: Cough, Dyspnea - Gastrointestinal Gastrointestinal: absent: Abdominal Pain, Nausea, Vomiting - Genitourinary Genitourinary: absent: Dysuria - Integumentary Integumentary: Dry Skin. absent: Rash Past Patient History - Infectious Disease Hx of Infectious Diseases: None - Past Medical History & Family History Past Medical History?: Yes - Past Social History Smoking Status: Former Smoker Alcohol: None Drugs: Denies - CARDIAC Hx Cardiac Disorders: No - PULMONARY Hx Respiratory Disorders: No - NEUROLOGICAL Hx Neurological Disorder: No - HEENT Hx HEENT Problems: No - ENDOCRINE/METABOLIC Hx Endocrine Disorders: No - HEMATOLOGICAL/ONCOLOGICAL Hx Blood Disorders: Yes Other/Comment: Hgb 4.6 - INTEGUMENTARY Hx Dermatological Problems: No - MUSCULOSKELETAL/RHEUMATOLOGICAL Hx Musculoskeletal Disorders: No - GASTROINTESTINAL Hx Gastrointestinal Disorders: Yes Other/Comment: (+) stool occult blood - GENITOURINARY/GYNECOLOGICAL Hx Genitourinary Disorders: No - PSYCHIATRIC Hx Substance Use: No - SURGICAL HISTORY Hx Surgeries: No - ANESTHESIA Hx Anesthesia: No Meds Allergies/Adverse Reactions: Allergies Allergy/AdvReac Type Severity Reaction Status Date / Time No Known Allergies Allergy Verified 09/28/18 11:16 - Medications Medications: Current Medications Albuterol/Ipratropium (Duoneb 3 Mg/0.5 Mg (3 Ml) Ud) 3 ml INH RQ6 PRN PRN Reason: Shortness of Breath Docusate Sodium (Colace) 100 mg PO BID [facility] Last Admin: 10/04/18 19:11 Dose: 100 mg Hydrocortisone (Anusol-Hc) 0 gm MD BID [facility] Last Admin: 10/04/18 19:11 Dose: 2.5 % Azithromycin 500 mg/ Sodium (Chloride) 250 mls @ 250 mls/hr IVPB DAILY [facility]; Protocol Last Admin: 10/04/18 10:40 Dose: 250 mls/hr Ceftriaxone Sodium 1 gm/ (Sodium Chloride) 100 mls @ 100 mls/hr IVPB Q12H [facility]; Protocol Last Admin: 10/04/18 14:00 Dose: 100 mls/hr Ondansetron HCl (Zofran Inj) 4 mg IVP DAILY@ONCE PRN PRN Reason: Nausea/Vomiting Pantoprazole Sodium (Protonix Inj) 40 mg IVP DAILY [facility] Last Admin: 10/04/18 10:42 Dose: 40 mg Saccharomyces Boulardii (Florastor) 250 mg PO BID [facility] Last Admin: 10/04/18 19:10 Dose: 250 mg Tamsulosin HCl (Flomax) 0.4 mg PO DAILY [facility] Physical Exam - Constitutional Appears: No Acute Distress - Head Exam Head Exam: ATRAUMATIC, NORMAL INSPECTION, NORMOCEPHALIC - Eye Exam Eye Exam: EOMI, PERRL - ENT Exam ENT Exam: Mucous Membranes Moist - Respiratory Exam Respiratory Exam: NORMAL BREATHING PATTERN Additional comments: decreased air entry left base - Cardiovascular Exam Cardiovascular Exam: REGULAR RHYTHM - GI/Abdominal Exam GI & Abdominal Exam: Normal Bowel Sounds, Soft. absent: Tenderness - Extremities Exam Extremities exam: Positive for: pedal edema. Negative for: calf tenderness - Back Exam Back exam: NORMAL INSPECTION - Neurological Exam Neurological exam: Alert, Oriented x3 Results - Vital Signs Recent Vital Signs: Last Vital Signs Temp 97.4 F L 10/04/18 15:00 Pulse 91 H 10/04/18 16:00 Resp 20 11/26/18 15:00 BP 114/67 10/04/18 15:00 Pulse Ox 96 10/04/18 15:00 - Labs Result Diagrams: 10/04/18 06:36 10/04/18 06:36 Labs: Laboratory Results - last 24 hr 09/28/18 10/01/18 10/04/18 10:41 17:16 06:36 WBC 2.2 L RBC 3.05 L Hgb 8.4 L Hct 26.3 L MCV 86.1 MCH 27.6 MCHC 32.0 L RDW 16.2 H Plt Count 15 L* Manual Plt Count 11 L* D MPV 10.9 Neut % (Auto) 23.0 L Lymph % (Auto) 41.0 H [place] % (Auto) 36.0 H Eos % (Auto) 0.0 Baso % (Auto) 0.0 Neut # (Auto) 0.5 L Lymph # (Auto) 0.9 L [place] # (Auto) 0.8 Eos # (Auto) 0.0 Baso # (Auto) 0.0 Neutrophils % (Manual) 23 L Lymphocytes % (Manual) 40 Monocytes % (Manual) 37 H Nucleated RBC % 15 H Platelet Estimate Markedly decreased L Polychromasia Slight Hypochromasia (manual) Moderate Poikilocytosis (manual Moderate Anisocytosis (manual) Moderate Microcytosis (manual) Slight Macrocytosis (manual) Slight Target Cells Slight Tear Drop Cells Slight Acanthocytes (Spur) Slight Sodium Potassium Chloride Carbon Dioxide Anion Gap BUN Creatinine Est GFR ( Amer) Est GFR (Non-Af Amer) POC Glucose (mg/dL) Random Glucose Calcium Phosphorus Magnesium Total Bilirubin AST ALT Alkaline Phosphatase Total Protein Albumin Globulin Albumin/Globulin Ratio Procalcitonin 0.11 L C. difficile Ag & Toxin Mycobacterial Culture See note 10/04/18 10/04/18 10/04/18 06:36 11:33 15:08 WBC RBC Hgb Hct MCV MCH MCHC RDW Plt Count Manual Plt Count MPV Neut % (Auto) Lymph % (Auto) [place] % (Auto) Eos % (Auto) Baso % (Auto) Neut # (Auto) Lymph # (Auto) [place] # (Auto) Eos # (Auto) Baso # (Auto) Neutrophils % (Manual) Lymphocytes % (Manual) Monocytes % (Manual) Nucleated RBC % Platelet Estimate Polychromasia Hypochromasia (manual) Poikilocytosis (manual Anisocytosis (manual) Microcytosis (manual) Macrocytosis (manual) Target Cells Tear Drop Cells Acanthocytes (Spur) Sodium 137 Potassium 4.0 Chloride 106 Carbon Dioxide 24 Anion Gap 11 BUN 15 Creatinine 1.2 Est GFR ( Amer) > 60 Est GFR (Non-Af Amer) 59 POC Glucose (mg/dL) 164 H Random Glucose 103 Calcium 7.9 L Phosphorus 3.5 Magnesium 2.0 Total Bilirubin 0.4 AST 21 ALT 22 Alkaline Phosphatase 68 Total Protein 5.8 L Albumin 2.6 L Globulin 3.1 Albumin/Globulin Ratio 0.8 L Procalcitonin C. difficile Ag & Toxin Negative Mycobacterial Culture - Imaging and Cardiology CT scan - abdomen Status: Image reviewed by me, Report reviewed by me CT scan - chest Status: Image reviewed by me Assessment & Plan - Assessment and Plan (Free Text) Assessment: 1.AML/pancytopenia 2.Pneumothorax-asymptomatic patient pancytopenic. O2,follow up in am and IR pigtail catheter in am 3.Lung mass-continue Isolation/sputum AFB
--- NOTE | 2018-10-04 22:42 | CP.PCM.PN ---
Subjective - Date & Time of Evaluation Date of Evaluation: 10/04/18 Time of Evaluation: 18:00 - Subjective Subjective: No complaints, events noted. Objective - Vital Signs/Intake and Output Vital Signs (last 24 hours): Temp Pulse Resp BP Pulse Ox 97.4 F L 91 H 20 114/67 96 10/04/18 15:00 10/04/18 16:00 10/04/18 15:00 10/04/18 15:00 10/04/18 15:00 - Medications Medications: Current Medications Albuterol/Ipratropium (Duoneb 3 Mg/0.5 Mg (3 Ml) Ud) 3 ml INH RQ6 PRN PRN Reason: Shortness of Breath Docusate Sodium (Colace) 100 mg PO BID [facility] Last Admin: 10/04/18 19:11 Dose: 100 mg Hydrocortisone (Anusol-Hc) 0 gm [place] BID [facility] Last Admin: 10/04/18 19:11 Dose: 2.5 % Azithromycin 500 mg/ Sodium (Chloride) 250 mls @ 250 mls/hr IVPB DAILY [facility]; Protocol Last Admin: 10/04/18 10:40 Dose: 250 mls/hr Ceftriaxone Sodium 1 gm/ (Sodium Chloride) 100 mls @ 100 mls/hr IVPB Q12H [facility]; Protocol Last Admin: 10/04/18 14:00 Dose: 100 mls/hr Ondansetron HCl (Zofran Inj) 4 mg IVP DAILY@ONCE PRN PRN Reason: Nausea/Vomiting Pantoprazole Sodium (Protonix Inj) 40 mg IVP DAILY [facility] Last Admin: 10/04/18 10:42 Dose: 40 mg Saccharomyces Boulardii (Florastor) 250 mg PO BID [facility] Last Admin: 10/04/18 19:10 Dose: 250 mg Tamsulosin HCl (Flomax) 0.4 mg PO DAILY [facility] - Labs Labs: 10/04/18 06:36 10/04/18 06:36 PT 12.9 SECONDS (9.7-12.2) H 09/28/18 11:39 INR 1.2 09/28/18 11:39 APTT 25 SECONDS (21-34) 09/28/18 11:39 - Head Exam Head Exam: ATRAUMATIC - Eye Exam Eye Exam: Normal appearance - ENT Exam ENT Exam: Mucous Membranes Dry - Respiratory Exam Respiratory Exam: NORMAL BREATHING PATTERN - Cardiovascular Exam Cardiovascular Exam: +S1, +S2 - GI/Abdominal Exam GI & Abdominal Exam: Normal Bowel Sounds Assessment and Plan (1) AML (acute myeloblastic leukemia) Assessment & Plan: pharmacy to try to obtain decitabine if approved by administration transfusion support Status: Acute (2) Pancytopenia Assessment & Plan: secondary to AML goal hgb > 7 and plt > 10,000 Status: Acute (3) Lung mass Assessment & Plan: supportive care Status: Acute
[2018-10-05 06:25] LABS: HEMOGLOBIN 7.7 g/dL (12.0-18.0); MEAN CELL VOLUME 86.5 fL (80.0-94.0); MEAN CORPUSCULAR HEMOGLOBIN 28.2 pg (27.0-31.0); MEAN CORPUSCULAR HGB CONC 32.6 g/dL (33.0-37.0); RBC 2.72 Mil/uL (4.40-5.90); RED CELL DISTRIBUTION WIDTH 15.9 % (11.5-14.5); WHITE BLOOD COUNT 2.4 K/uL (4.8-10.8)
[2018-10-05 06:31] LABS: PLATELET COUNT 10 K/uL (130-400)
[2018-10-05 07:04] LABS: ALB/GLOB RATIO 0.8 (1.0-2.1); ALBUMIN 2.3 g/dL (3.5-5.0); ALT/SGPT 25 U/L (21-72); AST/SGOT 27 U/L (17-59); BLOOD UREA NITROGEN 16 mg/dL (9-20); CALCIUM 7.9 mg/dl (8.6-10.4); GFR NON-AFRICAN AMERICAN > 60
--- NOTE | 2018-10-05 08:07 | CP.CCUPN ---
<Logan Mancilla - Last Filed: 10/05/18 12:10> CCU Subjective - Physician Review Subjective (Free Text): 10/05/18 08:27 Patient sen and examined at bedside. No acute events overnight. Patient to be transfused with 2 units of platelets today. Plan for IR to insert pigtail/chest tube in the afternoon. Patient denies chest pain or shortness of breath. Critical Care Time Spent (in minutes): 35 CCU Objective - Vital Signs / Intake & Output Vital Signs (Last 4 hours): Vital Signs Pulse Resp BP Pulse Ox 10/05/18 06:02 82 21 122/58 L 100 10/05/18 05:00 83 15 100 10/05/18 04:55 141/62 Intake and Output (Last 8hrs): Intake & Output 10/04/18 10/05/18 10/05/18 22:59 06:59 14:59 Intake Total 100 Output Total 900 Balance -800 Intake: Intake, IV Amount 100 Right Forearm 100 Output: Urine 900 Urine, Voided 900 - Physical Exam Head: Positive for: Atraumatic, Normocephalic Pupils: Positive for: PERRL Extroacular Muscles: Positive for: EOMI Conjunctiva: Positive for: Normal Mouth: Positive for: Moist Mucous Membranes Respiratory/Chest: Positive for: Clear to Auscultation. Negative for: Respiratory Distress, Accessory Muscle Use, Wheezes, Rales, Rhonchi, Tachypneic Cardiovascular: Positive for: Regular Rate and Rhythm, Normal S1, S2. Negative for: Murmurs, Rub, Gallop Abdomen: Positive for: Normal Bowel Sounds. Negative for: Tenderness, Distention, Peritoneal Signs Upper Extremity: Positive for: Normal Inspection. Negative for: Edema Lower Extremity: Positive for: Edema. Negative for: Normal Inspection, CALF TENDERNESS Neurological: Positive for: GCS=15, CN II-XII Intact, Speech Normal Skin: Positive for: Warm, Dry, Pale. Negative for: Rashes Psychiatric: Positive for: Alert, Oriented x 3, Normal Insight, Normal Concentration, Lethargic - Medications Active Medications: Active Medications Generic Name Dose Route Start Last Admin Trade Name Freq PRN Reason Stop Dose Admin Albuterol/Ipratropium 3 ml 09/28/18 19:21 Duoneb 3 Mg/0.5 Mg (3 Ml) Ud INH RQ6 PRN Shortness of Breath Docusate Sodium 100 mg 10/04/18 18:00 10/04/18 19:11 Colace PO 100 mg BID ELDA Administration Hydrocortisone 0 gm 10/04/18 18:00 10/04/18 19:11 Anusol-Hc WV 2.5 % BID ELDA Administration Azithromycin 500 mg/ Sodium 250 mls @ 250 mls/hr 10/03/18 13:00 10/04/18 10:40 Chloride IVPB 250 mls/hr DAILY ELDA Administration Protocol Ceftriaxone Sodium 1 gm/ 100 mls @ 100 mls/hr 10/03/18 12:00 10/05/18 01:15 Sodium Chloride IVPB 100 mls/hr Q12H ELDA Administration Protocol Ondansetron HCl 4 mg 10/04/18 14:15 Zofran Inj IVP DAILY@ONCE PRN Nausea/Vomiting Pantoprazole Sodium 40 mg 09/29/18 10:00 10/04/18 10:42 Protonix Inj IVP 40 mg DAILY ELDA Administration Saccharomyces Boulardii 250 mg 10/04/18 18:00 10/04/18 19:10 Florastor PO 250 mg BID ELDA Administration Tamsulosin HCl 0.4 mg 10/05/18 10:00 Flomax PO DAILY ELDA - Patient Studies Lab Studies: Lab Studies 10/05/18 10/05/18 10/04/18 Range/Units 06:05 06:03 15:08 WBC 2.4 L (4.8-10.8) K/uL RBC 2.72 L (4.40-5.90) Mil/uL Hgb 7.7 L (12.0-18.0) g/dL Hct 23.5 L (35.0-51.0) % MCV 86.5 (80.0-94.0) fL MCH 28.2 (27.0-31.0) pg MCHC 32.6 L (33.0-37.0) g/dL RDW 15.9 H (11.5-14.5) % Plt Count 10 L* D (130-400) K/uL Manual Plt Count (130-400) K/uL Neut % (Auto) (50.0-75.0) % Lymph % (Auto) (20.0-40.0) % [place] % (Auto) (0.0-10.0) % Eos % (Auto) (0.0-4.0) % Baso % (Auto) (0.0-2.0) % Neut # (Auto) (1.8-7.0) K/uL Lymph # (Auto) (1.0-4.3) K/uL [place] # (Auto) (0.0-0.8) K/uL Eos # (Auto) (0.0-0.7) K/uL Baso # (Auto) (0.0-0.2) K/uL Neutrophils % (Manual) (50-75) % Lymphocytes % (Manual) (20-40) % Monocytes % (Manual) (0-10) % Nucleated RBC % (0-0) % Platelet Estimate (NORMAL) Polychromasia Hypochromasia (manual) Poikilocytosis (manual Anisocytosis (manual) Microcytosis (manual) Macrocytosis (manual) Target Cells Tear Drop Cells Acanthocytes (Spur) Sodium 136 (132-148) mmol/L Potassium 3.6 (3.6-5.2) mmol/L Chloride 104 (98-107) mmol/L Carbon Dioxide 25 (22-30) mmol/L Anion Gap 10 (10-20) BUN 16 (9-20) mg/dL Creatinine 1.1 (0.8-1.5) mg/dL Est GFR ( Amer) > 60 Est GFR (Non-Af Amer) > 60 POC Glucose (mg/dL) (65-110) mg/dL Random Glucose 93 (75-110) mg/dL Calcium 7.9 L (8.6-10.4) mg/dl Phosphorus 4.7 H (2.5-4.5) mg/dL Magnesium 2.0 (1.6-2.3) mg/dL Total Bilirubin 0.3 (0.2-1.3) mg/dL AST 27 (17-59) U/L ALT 25 (21-72) U/L Alkaline Phosphatase 45 (38-126) U/L Total Protein 5.3 L (6.3-8.3) g/dL Albumin 2.3 L (3.5-5.0) g/dL Globulin 3.0 (2.2-3.9) gm/dL Albumin/Globulin Ratio 0.8 L (1.0-2.1) Prostate Specific Ag 3.69 (0.00-4.0) ng/mL Procalcitonin (0.19-0.49) NG/ML C. difficile Ag & Toxin Negative (NEGATIVE) Mycobacterial Culture 10/04/18 10/04/18 10/01/18 Range/Units 11:33 06:36 17:16 WBC (4.8-10.8) K/uL RBC (4.40-5.90) Mil/uL Hgb (12.0-18.0) g/dL Hct (35.0-51.0) % MCV (80.0-94.0) fL MCH (27.0-31.0) pg MCHC (33.0-37.0) g/dL RDW (11.5-14.5) % Plt Count (130-400) K/uL Manual Plt Count 11 L* D (130-400) K/uL Neut % (Auto) 23.0 L (50.0-75.0) % Lymph % (Auto) 41.0 H (20.0-40.0) % [place] % (Auto) 36.0 H (0.0-10.0) % Eos % (Auto) 0.0 (0.0-4.0) % Baso % (Auto) 0.0 (0.0-2.0) % Neut # (Auto) 0.5 L (1.8-7.0) K/uL Lymph # (Auto) 0.9 L (1.0-4.3) K/uL [place] # (Auto) 0.8 (0.0-0.8) K/uL Eos # (Auto) 0.0 (0.0-0.7) K/uL Baso # (Auto) 0.0 (0.0-0.2) K/uL Neutrophils % (Manual) 23 L (50-75) % Lymphocytes % (Manual) 40 (20-40) % Monocytes % (Manual) 37 H (0-10) % Nucleated RBC % 15 H (0-0) % Platelet Estimate Markedly decreased L (NORMAL) Polychromasia Slight Hypochromasia (manual) Moderate Poikilocytosis (manual Moderate Anisocytosis (manual) Moderate Microcytosis (manual) Slight Macrocytosis (manual) Slight Target Cells Slight Tear Drop Cells Slight Acanthocytes (Spur) Slight Sodium (132-148) mmol/L Potassium (3.6-5.2) mmol/L Chloride (98-107) mmol/L Carbon Dioxide (22-30) mmol/L Anion Gap (10-20) BUN (9-20) mg/dL Creatinine (0.8-1.5) mg/dL Est GFR ( Amer) Est GFR (Non-Af Amer) POC Glucose (mg/dL) 164 H (65-110) mg/dL Random Glucose (75-110) mg/dL Calcium (8.6-10.4) mg/dl Phosphorus (2.5-4.5) mg/dL Magnesium (1.6-2.3) mg/dL Total Bilirubin (0.2-1.3) mg/dL AST (17-59) U/L ALT (21-72) U/L Alkaline Phosphatase (38-126) U/L Total Protein (6.3-8.3) g/dL Albumin (3.5-5.0) g/dL Globulin (2.2-3.9) gm/dL Albumin/Globulin Ratio (1.0-2.1) Prostate Specific Ag (0.00-4.0) ng/mL Procalcitonin 0.11 L (0.19-0.49) NG/ML C. difficile Ag & Toxin (NEGATIVE) Mycobacterial Culture 09/28/18 Range/Units 10:41 WBC (4.8-10.8) K/uL RBC (4.40-5.90) Mil/uL Hgb (12.0-18.0) g/dL Hct (35.0-51.0) % MCV (80.0-94.0) fL MCH (27.0-31.0) pg MCHC (33.0-37.0) g/dL RDW (11.5-14.5) % Plt Count (130-400) K/uL Manual Plt Count (130-400) K/uL Neut % (Auto) (50.0-75.0) % Lymph % (Auto) (20.0-40.0) % [place] % (Auto) (0.0-10.0) % Eos % (Auto) (0.0-4.0) % Baso % (Auto) (0.0-2.0) % Neut # (Auto) (1.8-7.0) K/uL Lymph # (Auto) (1.0-4.3) K/uL [place] # (Auto) (0.0-0.8) K/uL Eos # (Auto) (0.0-0.7) K/uL Baso # (Auto) (0.0-0.2) K/uL Neutrophils % (Manual) (50-75) % Lymphocytes % (Manual) (20-40) % Monocytes % (Manual) (0-10) % Nucleated RBC % (0-0) % Platelet Estimate (NORMAL) Polychromasia Hypochromasia (manual) Poikilocytosis (manual Anisocytosis (manual) Microcytosis (manual) Macrocytosis (manual) Target Cells Tear Drop Cells Acanthocytes (Spur) Sodium (132-148) mmol/L Potassium (3.6-5.2) mmol/L Chloride (98-107) mmol/L Carbon Dioxide (22-30) mmol/L Anion Gap (10-20) BUN (9-20) mg/dL Creatinine (0.8-1.5) mg/dL Est GFR ( Amer) Est GFR (Non-Af Amer) POC Glucose (mg/dL) (65-110) mg/dL Random Glucose (75-110) mg/dL Calcium (8.6-10.4) mg/dl Phosphorus (2.5-4.5) mg/dL Magnesium (1.6-2.3) mg/dL Total Bilirubin (0.2-1.3) mg/dL AST (17-59) U/L ALT (21-72) U/L Alkaline Phosphatase (38-126) U/L Total Protein (6.3-8.3) g/dL Albumin (3.5-5.0) g/dL Globulin (2.2-3.9) gm/dL Albumin/Globulin Ratio (1.0-2.1) Prostate Specific Ag (0.00-4.0) ng/mL Procalcitonin (0.19-0.49) NG/ML C. difficile Ag & Toxin (NEGATIVE) Mycobacterial Culture See note Laboratory Results - last 24 hr 09/28/18 10/01/18 10/04/18 10:41 17:16 06:36 WBC RBC Hgb Hct MCV MCH MCHC RDW Plt Count Manual Plt Count 11 L* D Neut % (Auto) 23.0 L Lymph % (Auto) 41.0 H [place] % (Auto) 36.0 H Eos % (Auto) 0.0 Baso % (Auto) 0.0 Neut # (Auto) 0.5 L Lymph # (Auto) 0.9 L [place] # (Auto) 0.8 Eos # (Auto) 0.0 Baso # (Auto) 0.0 Neutrophils % (Manual) 23 L Lymphocytes % (Manual) 40 Monocytes % (Manual) 37 H Nucleated RBC % 15 H Platelet Estimate Markedly decreased L Polychromasia Slight Hypochromasia (manual) Moderate Poikilocytosis (manual Moderate Anisocytosis (manual) Moderate Microcytosis (manual) Slight Macrocytosis (manual) Slight Target Cells Slight Tear Drop Cells Slight Acanthocytes (Spur) Slight Sodium Potassium Chloride Carbon Dioxide Anion Gap BUN Creatinine Est GFR ( Amer) Est GFR (Non-Af Amer) POC Glucose (mg/dL) Random Glucose Calcium Phosphorus Magnesium Total Bilirubin AST ALT Alkaline Phosphatase Total Protein Albumin Globulin Albumin/Globulin Ratio Prostate Specific Ag Procalcitonin 0.11 L C. difficile Ag & Toxin Mycobacterial Culture See note 10/04/18 10/04/18 10/05/18 11:33 15:08 06:03 WBC RBC Hgb Hct MCV MCH MCHC RDW Plt Count Manual Plt Count Neut % (Auto) Lymph % (Auto) [place] % (Auto) Eos % (Auto) Baso % (Auto) Neut # (Auto) Lymph # (Auto) [place] # (Auto) Eos # (Auto) Baso # (Auto) Neutrophils % (Manual) Lymphocytes % (Manual) Monocytes % (Manual) Nucleated RBC % Platelet Estimate Polychromasia Hypochromasia (manual) Poikilocytosis (manual Anisocytosis (manual) Microcytosis (manual) Macrocytosis (manual) Target Cells Tear Drop Cells Acanthocytes (Spur) Sodium 136 Potassium 3.6 Chloride 104 Carbon Dioxide 25 Anion Gap 10 BUN 16 Creatinine 1.1 Est GFR ( Amer) > 60 Est GFR (Non-Af Amer) > 60 POC Glucose (mg/dL) 164 H Random Glucose 93 Calcium 7.9 L Phosphorus 4.7 H Magnesium 2.0 Total Bilirubin 0.3 AST 27 ALT 25 Alkaline Phosphatase 45 Total Protein 5.3 L Albumin 2.3 L Globulin 3.0 Albumin/Globulin Ratio 0.8 L Prostate Specific Ag 3.69 Procalcitonin C. difficile Ag & Toxin Negative Mycobacterial Culture 10/05/18 06:05 WBC 2.4 L RBC 2.72 L Hgb 7.7 L Hct 23.5 L MCV 86.5 MCH 28.2 MCHC 32.6 L RDW 15.9 H Plt Count 10 L* D Manual Plt Count Neut % (Auto) Lymph % (Auto) [place] % (Auto) Eos % (Auto) Baso % (Auto) Neut # (Auto) Lymph # (Auto) [place] # (Auto) Eos # (Auto) Baso # (Auto) Neutrophils % (Manual) Lymphocytes % (Manual) Monocytes % (Manual) Nucleated RBC % Platelet Estimate Polychromasia Hypochromasia (manual) Poikilocytosis (manual Anisocytosis (manual) Microcytosis (manual) Macrocytosis (manual) Target Cells Tear Drop Cells Acanthocytes (Spur) Sodium Potassium Chloride Carbon Dioxide Anion Gap BUN Creatinine Est GFR ( Amer) Est GFR (Non-Af Amer) POC Glucose (mg/dL) Random Glucose Calcium Phosphorus Magnesium Total Bilirubin AST ALT Alkaline Phosphatase Total Protein Albumin Globulin Albumin/Globulin Ratio Prostate Specific Ag Procalcitonin C. difficile Ag & Toxin Mycobacterial Culture Critical Care Progress Note - Nutrition Nutrition: Nutrition Category Date Time Status NPO Diet [DIET] Diets 10/05/18 Breakfast Active Assessment/Plan - Assessment and Plan (Free Text) Assessment: Patient is a 77 year old male with history of tobacco abuse presenting with generalized weakness. Patient found to be pancytopenic. 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 Patient admitted to the ICU for left pneumothorax. Plan: Neuro: - Patient is AAO X 3 Pulm: Left pneumothorax - CT chest (10/04): Interval appearance of approximately 35 percent left-sided pneumothorax since the previous exam. - IR consulted, Dr. Garrison - Plan for pigtail/chest tube placement today - Transfuse 2 units of platelets today - Patient is currently asymptomatic Lung Masses - CT chest (09/28): Emphysematous changes. Biapical pleural thickening. Bilateral upper lobe bulla. Abnormal right upper lobe spiculated/irregular opacities possibly malignant neoplasm or consolidation such as pneumonia. Calcifications are evident in this region, as are ground-glass opacities and bronchiectasis. Evidence of chronic interstitial fibrosis. Small bilateral pleural effusions and dependent atelectasis. No pneumothorax. Nodular opacities measuring approximately 6 mm in the left upper lobe (series 4, image 34) and 3 mm in the lingula (64). More localized ground-glass opacities noted in the left lower lobe (image 75). No large central or segmental pulmonary embolus identified. Nodular opacities measuring approximately 6 mm in the left upper lobe and 3 mm in the lingula. More localized ground-glass rounded opacity noted in the left lower lobe. Recommend further evaluation with biopsy, PET- CT, or follow-up CT at 3 months, and 9 months, and 24 months. - Pulmonology consulted, Dr. Thurston - Will biopsy once thrombocytopenia is corrected Possible pneumonia - CXR: Right upper lobe traction bronchiectasis with the probable granulomatous disease. Concomitant right pleural parenchymal pathology here suggested- infiltrate, mass, scar or combination of the above are considerations. - Azithromycin 500 mg IV daily (started on 09/29) - Ceftriaxone 1gm IVPB daily (started on 09/29) - Legionella: Negative - Strep pneumo: Negative - Procalcitonin: wnl Possible tuberculosis infection - CXR (10/02): apical opacity with associated pleural thickening. Nonspecific. Possible small left pleural effusion. Rule out old granulomatous infection. - Airborne precautions - Sputum culture: Negative X 1 - Quantiferon test: nega - Can discontinue airborne isolation after AFB negative x 2 Emphysematous changes on Chest CT; likely COPD due to history of smoking - See CT results above - Duonebs Q6H PRN - Pulmonology consulted, Dr. Thurston Cardiovascular: Systolic and diastolic heart failure - Echo (09/28): LVEF of 36%, diastolic dysfunction. Trace MR. Mild TR. Small pericardial effusion. - proBNP: 7130 LBBB - EKG reveals LBBB, unsure if new onset - Currently asymptomatic - Will continue to monitor GI: Possible GI bleed - H.4--> 7.7 - FOBT: positive - Protonox 40mg PO daily - GI consulted, Dr. 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 diff: negative - Florastor BID Ventral hernia - Surgery consulted, Dr. Porter Renal: - No acute issues : Urinary retention - Urology consulted Dr. Farshad Mallory - Flomax 0.4mg PO QD Heme: Pancytopenia - WBC 2.8, Hgb 4.6, Plt 13 on admission - Peripheral smear shows moderate teardrop cells possible myelofibrosis - Transfused: 2 units PRBC's and 2 units platelets on admission - 10/01 transfused 1 unit of platelets - 10/05 transufused 2 units of platelets - Hb/Hct: 7.7/23.5 - Platelets: 15-->10 - Heme/Onc consulted, Dr. Bobby - No platelet transfusion be done unless manual count is less than 10 or patient has signs of bleeding AML - Prelim pathology report shows AML - Patient is too frail for induction chemotherapy- possible hypomethylating agent in the future - Bone marrow FSH analysis, chromosome karyotyping: f/u ID: - HIV is negative - Hepatitis panel is normal - Blood culture: no growth to date Prophylaxis: - Anticoagulation contraindicated due to thrombocytopenia and anemia - GI: protonix 40 mg QD Case discussed with Dr. Bertrand Mancilla, PGY-1 <Narendra Thurston S - Last Filed: 10/06/18 15:57> CCU Objective - Vital Signs / Intake & Output Vital Signs (Last 4 hours): Vital Signs Temp Pulse Resp BP Pulse Ox 10/06/18 13:01 82 16 132/60 100 10/06/18 13:00 84 17 100 10/06/18 12:01 79 17 141/65 100 10/06/18 12:00 98.3 F 81 19 100 Intake and Output (Last 8hrs): Intake & Output 10/06/18 10/06/18 10/06/18 06:59 14:59 22:59 Intake Total 750 690 Output Total 460 276 Balance 290 414 Intake: Intake, IV Amount 100 300 Right Forearm 100 300 Oral 390 Blood Product 650 Red Blood Cells Cpd As1 325 Lr Unit [id number] Red Blood Cells Cpd As1 325 Lr Unit [id number] Output: Urine 460 275 Urethral (Traylor) 460 275 Stool 1 - Medications Active Medications: Active Medications Generic Name Dose Route Start Last Admin Trade Name Freq PRN Reason Stop Dose Admin Albuterol/Ipratropium 3 ml 09/28/18 19:21 Duoneb 3 Mg/0.5 Mg (3 Ml) Ud INH RQ6 PRN Shortness of Breath Docusate Sodium 100 mg 10/04/18 18:00 10/06/18 11:37 Colace PO 100 mg BID ELDA Administration Hydrocortisone 0 gm 10/04/18 18:00 10/06/18 11:37 Anusol-Hc WV 2.5 % BID ELDA Administration Azithromycin 500 mg/ Sodium 250 mls @ 250 mls/hr 10/03/18 13:00 10/06/18 11:38 Chloride IVPB 250 mls/hr DAILY ELDA Administration Protocol Ceftriaxone Sodium 1 gm/ 100 mls @ 100 mls/hr 10/03/18 12:00 10/06/18 11:35 Sodium Chloride IVPB 100 mls/hr Q12H ELDA Administration Protocol Ondansetron HCl 4 mg 10/04/18 14:15 Zofran Inj IVP DAILY@ONCE PRN Nausea/Vomiting Pantoprazole Sodium 40 mg 09/29/18 10:00 10/06/18 11:36 Protonix Inj IVP 40 mg DAILY ELDA Administration Saccharomyces Boulardii 250 mg 10/04/18 18:00 10/06/18 11:37 Florastor PO 250 mg BID ELDA Administration Tamsulosin HCl 0.4 mg 10/05/18 10:00 10/06/18 11:36 Flomax PO 0.4 mg DAILY ELDA Administration - Patient Studies Lab Studies: Microbiology Studies 10/04/18 22:43 Urine Culture - Final Urine,Catheterized No Growth (<1,000 CFU/ML) 10/03/18 14:03 Mycobacterial Culture - Preliminary Other: Please Indicate Lab Studies 10/06/18 10/06/18 10/05/18 Range/Units 05:46 05:46 18:43 WBC 2.7 L (4.8-10.8) K/uL RBC 3.41 L (4.40-5.90) Mil/uL Hgb 9.7 L D (12.0-18.0) g/dL Hct 29.5 L (35.0-51.0) % MCV 86.5 (80.0-94.0) fL MCH 28.5 (27.0-31.0) pg MCHC 32.9 L (33.0-37.0) g/dL RDW 15.4 H (11.5-14.5) % Plt Count 28 L* D (130-400) K/uL MPV 9.8 (7.2-11.7) fL Neut % (Auto) 17.0 L (50.0-75.0) % Lymph % (Auto) 16.6 L (20.0-40.0) % [place] % (Auto) 66.3 H (0.0-10.0) % Eos % (Auto) 0.1 (0.0-4.0) % Baso % (Auto) 0.0 (0.0-2.0) % Neut # (Auto) 0.5 L (1.8-7.0) K/uL Lymph # (Auto) 0.4 L (1.0-4.3) K/uL [place] # (Auto) 1.8 H (0.0-0.8) K/uL Eos # (Auto) 0.0 (0.0-0.7) K/uL Baso # (Auto) 0.0 (0.0-0.2) K/uL Neutrophils % (Manual) 23 L (50-75) % Lymphocytes % (Manual) 28 (20-40) % Monocytes % (Manual) 49 H (0-10) % Nucleated RBC % 14 H (0-0) % Platelet Estimate Markedly decreased L (NORMAL) Polychromasia Slight Hypochromasia (manual) Slight Poikilocytosis (manual Slight Anisocytosis (manual) Slight Tear Drop Cells Slight Ovalocytes Slight Helmet Cells Slight Acanthocytes (Spur) Slight Sodium 137 (132-148) mmol/L Potassium 3.7 (3.6-5.2) mmol/L Chloride 105 (98-107) mmol/L Carbon Dioxide 28 (22-30) mmol/L Anion Gap 8 L (10-20) BUN 15 (9-20) mg/dL Creatinine 0.9 (0.8-1.5) mg/dL Est GFR ( Amer) > 60 Est GFR (Non-Af Amer) > 60 Random Glucose 91 (75-110) mg/dL Calcium 8.1 L (8.6-10.4) mg/dl Phosphorus 4.7 H (2.5-4.5) mg/dL Magnesium 2.0 (1.6-2.3) mg/dL Total Bilirubin 0.6 (0.2-1.3) mg/dL AST 23 (17-59) U/L ALT 26 (21-72) U/L Alkaline Phosphatase 61 (38-126) U/L Total Protein 5.5 L (6.3-8.3) g/dL Albumin 2.4 L (3.5-5.0) g/dL Globulin 3.1 (2.2-3.9) gm/dL Albumin/Globulin Ratio 0.8 L (1.0-2.1) Blood Type B POSITIVE Antibody Screen Negative 10/05/18 Range/Units 17:41 WBC 2.5 L (4.8-10.8) K/uL RBC 2.21 L (4.40-5.90) Mil/uL Hgb 6.1 L* (12.0-18.0) g/dL Hct 19.0 L (35.0-51.0) % MCV 86.0 (80.0-94.0) fL MCH 27.5 (27.0-31.0) pg MCHC 32.0 L (33.0-37.0) g/dL RDW 15.6 H (11.5-14.5) % Plt Count 51 L D (130-400) K/uL MPV 8.4 (7.2-11.7) fL Neut % (Auto) (50.0-75.0) % Lymph % (Auto) (20.0-40.0) % [place] % (Auto) (0.0-10.0) % Eos % (Auto) (0.0-4.0) % Baso % (Auto) (0.0-2.0) % Neut # (Auto) (1.8-7.0) K/uL Lymph # (Auto) (1.0-4.3) K/uL [place] # (Auto) (0.0-0.8) K/uL Eos # (Auto) (0.0-0.7) K/uL Baso # (Auto) (0.0-0.2) K/uL Neutrophils % (Manual) (50-75) % Lymphocytes % (Manual) (20-40) % Monocytes % (Manual) (0-10) % Nucleated RBC % (0-0) % Platelet Estimate (NORMAL) Polychromasia Hypochromasia (manual) Poikilocytosis (manual Anisocytosis (manual) Tear Drop Cells Ovalocytes Helmet Cells Acanthocytes (Spur) Sodium (132-148) mmol/L Potassium (3.6-5.2) mmol/L Chloride (98-107) mmol/L Carbon Dioxide (22-30) mmol/L Anion Gap (10-20) BUN (9-20) mg/dL Creatinine (0.8-1.5) mg/dL Est GFR ( Amer) Est GFR (Non-Af Amer) Random Glucose (75-110) mg/dL Calcium (8.6-10.4) mg/dl Phosphorus (2.5-4.5) mg/dL Magnesium (1.6-2.3) mg/dL Total Bilirubin (0.2-1.3) mg/dL AST (17-59) U/L ALT (21-72) U/L Alkaline Phosphatase (38-126) U/L Total Protein (6.3-8.3) g/dL Albumin (3.5-5.0) g/dL Globulin (2.2-3.9) gm/dL Albumin/Globulin Ratio (1.0-2.1) Blood Type Antibody Screen Laboratory Results - last 24 hr 10/05/18 10/05/18 10/06/18 17:41 18:43 05:46 WBC 2.5 L 2.7 L RBC 2.21 L 3.41 L Hgb 6.1 L* 9.7 L D Hct 19.0 L 29.5 L MCV 86.0 86.5 MCH 27.5 28.5 MCHC 32.0 L 32.9 L RDW 15.6 H 15.4 H Plt Count 51 L D 28 L* D MPV 8.4 9.8 Neut % (Auto) 17.0 L Lymph % (Auto) 16.6 L [place] % (Auto) 66.3 H Eos % (Auto) 0.1 Baso % (Auto) 0.0 Neut # (Auto) 0.5 L Lymph # (Auto) 0.4 L [place] # (Auto) 1.8 H Eos # (Auto) 0.0 Baso # (Auto) 0.0 Neutrophils % (Manual) 23 L Lymphocytes % (Manual) 28 Monocytes % (Manual) 49 H Nucleated RBC % 14 H Platelet Estimate Markedly decreased L Polychromasia Slight Hypochromasia (manual) Slight Poikilocytosis (manual Slight Anisocytosis (manual) Slight Tear Drop Cells Slight Ovalocytes Slight Helmet Cells Slight Acanthocytes (Spur) Slight Sodium Potassium Chloride Carbon Dioxide Anion Gap BUN Creatinine Est GFR ( Amer) Est GFR (Non-Af Amer) Random Glucose Calcium Phosphorus Magnesium Total Bilirubin AST ALT Alkaline Phosphatase Total Protein Albumin Globulin Albumin/Globulin Ratio Blood Type B POSITIVE Antibody Screen Negative 10/06/18 05:46 WBC RBC Hgb Hct MCV MCH MCHC RDW Plt Count MPV Neut % (Auto) Lymph % (Auto) [place] % (Auto) Eos % (Auto) Baso % (Auto) Neut # (Auto) Lymph # (Auto) [place] # (Auto) Eos # (Auto) Baso # (Auto) Neutrophils % (Manual) Lymphocytes % (Manual) Monocytes % (Manual) Nucleated RBC % Platelet Estimate Polychromasia Hypochromasia (manual) Poikilocytosis (manual Anisocytosis (manual) Tear Drop Cells Ovalocytes Helmet Cells Acanthocytes (Spur) Sodium 137 Potassium 3.7 Chloride 105 Carbon Dioxide 28 Anion Gap 8 L BUN 15 Creatinine 0.9 Est GFR ( Amer) > 60 Est GFR (Non-Af Amer) > 60 Random Glucose 91 Calcium 8.1 L Phosphorus 4.7 H Magnesium 2.0 Total Bilirubin 0.6 AST 23 ALT 26 Alkaline Phosphatase 61 Total Protein 5.5 L Albumin 2.4 L Globulin 3.1 Albumin/Globulin Ratio 0.8 L Blood Type Antibody Screen Critical Care Progress Note - Nutrition Nutrition: Nutrition Category Date Time Status Regular Diet [DIET] Diets 10/05/18 Lunch Active Assessment/Plan (1) Lung mass Current Visit: Yes Status: Acute (2) Pancytopenia Current Visit: Yes Status: Acute (3) Pneumonia Current Visit: Yes Status: Acute Attending/Attestation - Attestation I have personally seen and examined this patient.: Yes I have fully participated in the care of the patient.: Yes I have reviewed all pertinent clinical information: Yes Notes (Text): patient seen and examined in the intensive care unit transfusions the patient platelets Chest tube if pneumothorax worsens continue ICU observation for now Transfuse packed RBCs Hematology workup
--- NOTE | 2018-10-05 09:35 | RAD ---
Date of service: 10/05/2018 PROCEDURE: CHEST RADIOGRAPH, 1 VIEW HISTORY: pneumothorax COMPARISON: 10/02/2018 chest x-ray and more recent 10/04/2018 CT chest FINDINGS: LUNGS: A small left apical pneumothorax-pleural reflection from parietal rib surface equals 9 mm. Known history of pneumothorax Bullous blebs emphysematous changes suggested. Hyperaeration re-noted. Abnormal interstitial lung markings left perihilar and both upper lobes right greater than left right upper lobe traction bronchiectasis inferred. Vague right apical low-density opacity here may be the coalescence of traction bronchiectasis with contiguous pleural parenchymal pathology. Mid lung zone nodular opacity similar significance unknown PLEURA: Left apical pneumothorax present; no tension pneumothorax seen. Interval increased small left pleural effusion. Right apical pleural thickening. Medial superior left pleural thickening-findings similar CARDIOVASCULAR: There is presence of aortic atherosclerotic calcification on x-ray. Mild cardiomegaly. No suspect significant appear pulmonary venous congestion OSSEOUS STRUCTURES: Bilateral shoulder arthrosis VISUALIZED UPPER ABDOMEN: Normal. OTHER FINDINGS: None. IMPRESSION: The current chest x-ray demonstrates a small left apical pneumothorax shown reported on the 10/04/2018 chest without contrast study. Known pneumothorax. Bilateral phleboliths emphysematous changes. Multifocal abnormal interstitial lung densities-mostly traction bronchiectasis and interstitial lung disease related especially right upper lung zone. Interval increased left pleural effusion. Other findings as above.
[2018-10-05 09:44] LABS: LEGIONELLA AG URINE NEGATIVE (NEGATIVE)
[2018-10-05 09:48] LABS: MEAN PLATELET VOLUME 11.8 fL (7.2-11.7)
[2018-10-05 09:49] LABS: LYMPH # 0.7 K/uL (1.0-4.3); MONO # 1.3 K/uL (0.0-0.8); NEUT # 0.4 K/uL (1.8-7.0)
[2018-10-05 09:50] LABS: LYMPHOCYTE 28 % (20-40); MONOCYTE 54 % (0-10); NEUTROPHIL 18 % (50-75); NUCLEATED RED BLOOD CELL 12 % (0-0); PLATELET ESTIMATE MARKEDLY DECREASED (NORMAL); TOTAL CELLS COUNTED 100
[2018-10-05 09:51] LABS: ANISOCYTOSIS SLIGHT; HYPOCHROMIC MODERATE; MICROCYTOSIS SLIGHT; OVALOCYTES SLIGHT; POIKILOCYTOSIS SLIGHT; TARGET CELLS SLIGHT; TEARDROP CELLS MODERATE
[2018-10-05 09:52] LABS: BURR CELLS SLIGHT
--- NOTE | 2018-10-05 09:58 | CT ---
Date of service: 10/04/2018 PROCEDURE: CT Chest without contrast HISTORY: pneumothorax COMPARISON: Comparison is made with the previous CT angiogram of the chest dated 09/28/2018 TECHNIQUE: Contiguous axial images were obtained through the chest without intravenous contrast enhancement. Sagittal and coronal reconstructions were performed. Radiation dose: Total exam DLP = 194.2 mGy-cm. This CT exam was performed using one or more of the following dose reduction techniques: Automated exposure control, adjustment of the mA and/or kV according to patient size, and/or use of iterative reconstruction technique. FINDINGS: LUNGS: Moderate emphysematous changes predominant in the upper lobes are again noted. Heterogeneous opacities noted again in the right upper lobe. Partial atelectasis of the lower lobes due to bilateral pleural effusion. Partial atelectasis of the left upper lobe due to left pneumothorax. MEDIASTINUM: The thoracic aorta is ectatic and tortuous the heart is mildly to moderately enlarged. There is mild to moderate pericardial effusion. The main pulmonary artery is upper normal limit in size. There are mildly enlarged mediastinal lymph nodes. Multiple foci of atherosclerotic calcification noted in the thoracic aorta. PLEURA: There is left-sided pneumothorax measures approximately 35 percent. There are moderate to large bilateral pleural effusions have increased in size since the previous exam. BONES: No fracture. No destructive lesion. There are questionable small sclerotic bony lesion noted at T11 and T5 vertebral bodies. UPPER ABDOMEN: There is slightly low-attenuation heterogeneous mass lesion at the anterior aspect of left liver lobe again noted may represent hemangioma. OTHER FINDINGS: None. IMPRESSION: Interval appearance of approximately 35 percent left-sided pneumothorax since the previous exam. Interval increase in the size of the bilateral pleural effusions since the previous study. Redemonstration of heterogeneous opacities at the right upper lobe associated with focal bronchiectasis. Continuous follow-up reassessment is recommended. Preliminary report was submitted by [facility] contains concordant findings on 10/04/2018 at 9:34 p.m..
--- NOTE | 2018-10-05 10:43 | CP.PCM.CON ---
Past Patient History - Infectious Disease Hx of Infectious Diseases: None - Past Medical History & Family History Past Medical History?: Yes - Past Social History Smoking Status: Former Smoker Alcohol: None Drugs: Denies - CARDIAC Hx Cardiac Disorders: No - PULMONARY Hx Respiratory Disorders: No - NEUROLOGICAL Hx Neurological Disorder: No - HEENT Hx HEENT Problems: No - ENDOCRINE/METABOLIC Hx Endocrine Disorders: No - HEMATOLOGICAL/ONCOLOGICAL Hx Blood Disorders: Yes Other/Comment: Hgb 4.6 - INTEGUMENTARY Hx Dermatological Problems: No - MUSCULOSKELETAL/RHEUMATOLOGICAL Hx Musculoskeletal Disorders: No - GASTROINTESTINAL Hx Gastrointestinal Disorders: Yes Other/Comment: (+) stool occult blood - GENITOURINARY/GYNECOLOGICAL Hx Genitourinary Disorders: No - PSYCHIATRIC Hx Substance Use: No - SURGICAL HISTORY Hx Surgeries: No - ANESTHESIA Hx Anesthesia: No Meds Allergies/Adverse Reactions: Allergies Allergy/AdvReac Type Severity Reaction Status Date / Time No Known Allergies Allergy Verified 09/28/18 11:16 - Medications Medications: Current Medications Albuterol/Ipratropium (Duoneb 3 Mg/0.5 Mg (3 Ml) Ud) 3 ml INH RQ6 PRN PRN Reason: Shortness of Breath Docusate Sodium (Colace) 100 mg PO BID [facility] Last Admin: 10/04/18 19:11 Dose: 100 mg Hydrocortisone (Anusol-Hc) 0 gm NE BID [facility] Last Admin: 10/04/18 19:11 Dose: 2.5 % Azithromycin 500 mg/ Sodium (Chloride) 250 mls @ 250 mls/hr IVPB DAILY [facility]; Protocol Last Admin: 10/04/18 10:40 Dose: 250 mls/hr Ceftriaxone Sodium 1 gm/ (Sodium Chloride) 100 mls @ 100 mls/hr IVPB Q12H [facility]; Protocol Last Admin: 10/05/18 01:15 Dose: 100 mls/hr Ondansetron HCl (Zofran Inj) 4 mg IVP DAILY@ONCE PRN PRN Reason: Nausea/Vomiting Pantoprazole Sodium (Protonix Inj) 40 mg IVP DAILY [facility] Last Admin: 10/04/18 10:42 Dose: 40 mg Saccharomyces Boulardii (Florastor) 250 mg PO BID [facility] Last Admin: 10/04/18 19:10 Dose: 250 mg Tamsulosin HCl (Flomax) 0.4 mg PO DAILY [facility] Results - Vital Signs Recent Vital Signs: Last Vital Signs Temp 98 F 10/05/18 04:00 Pulse 82 10/05/18 06:02 Resp 21 10/05/18 06:02 BP 122/58 L 10/05/18 06:02 Pulse Ox 100 10/05/18 06:02 - Labs Result Diagrams: 10/05/18 06:05 10/05/18 06:03 Labs: Laboratory Results - last 24 hr 09/28/18 10/01/18 10/04/18 10:41 17:16 11:33 WBC RBC Hgb Hct MCV MCH MCHC RDW Plt Count MPV Neut % (Auto) Lymph % (Auto) [place] % (Auto) Eos % (Auto) Baso % (Auto) Neut # (Auto) Lymph # (Auto) [place] # (Auto) Eos # (Auto) Baso # (Auto) Neutrophils % (Manual) Lymphocytes % (Manual) Monocytes % (Manual) Nucleated RBC % Platelet Estimate Hypochromasia (manual) Poikilocytosis (manual Anisocytosis (manual) Microcytosis (manual) Target Cells Tear Drop Cells Ovalocytes [place] Cells Sodium Potassium Chloride Carbon Dioxide Anion Gap BUN Creatinine Est GFR ( Amer) Est GFR (Non-Af Amer) POC Glucose (mg/dL) 164 H Random Glucose Calcium Phosphorus Magnesium Total Bilirubin AST ALT Alkaline Phosphatase Total Protein Albumin Globulin Albumin/Globulin Ratio Prostate Specific Ag Procalcitonin 0.11 L C. difficile Ag & Toxin Ur L.pneumophila Ag Negative Mycobacterial Culture See note 10/04/18 10/05/18 10/05/18 15:08 06:03 06:05 WBC 2.4 L RBC 2.72 L Hgb 7.7 L Hct 23.5 L MCV 86.5 MCH 28.2 MCHC 32.6 L RDW 15.9 H Plt Count 10 L* D MPV 11.8 H Neut % (Auto) 18.0 L Lymph % (Auto) 28.0 Bradford % (Auto) 54.0 H Eos % (Auto) 0.0 Baso % (Auto) 0.0 Neut # (Auto) 0.4 L Lymph # (Auto) 0.7 L Bradford # (Auto) 1.3 H Eos # (Auto) 0.0 Baso # (Auto) 0.0 Neutrophils % (Manual) 18 L Lymphocytes % (Manual) 28 Monocytes % (Manual) 54 H Nucleated RBC % 12 H Platelet Estimate Markedly decreased L Hypochromasia (manual) Moderate Poikilocytosis (manual Slight Anisocytosis (manual) Slight Microcytosis (manual) Slight Target Cells Slight Tear Drop Cells Moderate Ovalocytes Slight [place] Cells Slight Sodium 136 Potassium 3.6 Chloride 104 Carbon Dioxide 25 Anion Gap 10 BUN 16 Creatinine 1.1 Est GFR ( Amer) > 60 Est GFR (Non-Af Amer) > 60 POC Glucose (mg/dL) Random Glucose 93 Calcium 7.9 L Phosphorus 4.7 H Magnesium 2.0 Total Bilirubin 0.3 AST 27 ALT 25 Alkaline Phosphatase 45 Total Protein 5.3 L Albumin 2.3 L Globulin 3.0 Albumin/Globulin Ratio 0.8 L Prostate Specific Ag 3.69 Procalcitonin C. difficile Ag & Toxin Negative Ur L.pneumophila Ag Mycobacterial Culture Assessment & Plan - Assessment and Plan (Free Text) Assessment: IMP: Retention Enlarged prostate Pancytopenia Leukemia full note tbd Rec: [place] cath PSA U/A, C&S Tamsulosin 0.4 mg bid Trial of voiding t/f YS - Date & Time Date: 10/05/18 Time: 10:42
[2018-10-05] MEDS: Saccharomyces Boulardi 250 mg Cap PO SCH ×2 (10:57→18:55)
[2018-10-05] MEDS: Azithromycin 500 MG in Sodium Chloride 0.9% 250 ML IVPB SCH (10:58)
[2018-10-05] MEDS: Hydrocortisone 2.5% Rectal Cream(30 gm) PR SCH ×2 (11:24→18:57)
--- NOTE | 2018-10-05 13:12 | CP.PCM.PN ---
Subjective - Date & Time of Evaluation Date of Evaluation: 10/05/18 Time of Evaluation: 13:06 - Subjective Subjective: Reason for consultation: Left pneumothorax-incidentally discovered on abd ct. Requested by 77 yo male, with pmh of multiple comorbidies and low platelests cts([id number]) who on ct of abdomen and pelvis was found to have left pneumothorax. Subsequent dedicated chest ct showed: left upper lobe emphyesma with bullous changes and 30% pneumothorx and bilat pleural effusions. The pt is clinically assymtomatic. I am inclined to recommend IR pigtail cath to reexpand the lung due to low platelets ct. We will follow the pt with you. Objective - Vital Signs/Intake and Output Vital Signs (last 24 hours): Temp Pulse Resp BP Pulse Ox 98 F 82 21 122/58 L 100 10/05/18 04:00 10/05/18 06:02 10/05/18 06:02 10/05/18 06:02 10/05/18 06:02 Intake and Output: 10/05/18 10/05/18 06:59 18:59 Intake Total 100 Output Total 900 Balance -800 - Medications Medications: Current Medications Albuterol/Ipratropium (Duoneb 3 Mg/0.5 Mg (3 Ml) Ud) 3 ml INH RQ6 PRN PRN Reason: Shortness of Breath Docusate Sodium (Colace) 100 mg PO BID [facility] Last Admin: 10/05/18 10:56 Dose: 100 mg Hydrocortisone (Anusol-Hc) 0 gm [place] BID [facility] Last Admin: 10/05/18 11:24 Dose: 2.5 % Azithromycin 500 mg/ Sodium (Chloride) 250 mls @ 250 mls/hr IVPB DAILY [facility]; Protocol Last Admin: 10/05/18 10:58 Dose: 250 mls/hr Ceftriaxone Sodium 1 gm/ (Sodium Chloride) 100 mls @ 100 mls/hr IVPB Q12H [facility]; Protocol Last Admin: 10/05/18 11:11 Dose: 100 mls/hr Ondansetron HCl (Zofran Inj) 4 mg IVP DAILY@ONCE PRN PRN Reason: Nausea/Vomiting Pantoprazole Sodium (Protonix Inj) 40 mg IVP DAILY [facility] Last Admin: 10/05/18 10:56 Dose: 40 mg Saccharomyces Boulardii (Florastor) 250 mg PO BID [facility] Last Admin: 10/05/18 10:57 Dose: 250 mg Tamsulosin HCl (Flomax) 0.4 mg PO DAILY [facility] Last Admin: 10/05/18 11:01 Dose: 0.4 mg - Labs Labs: 10/05/18 06:05 10/05/18 06:03 PT 12.9 SECONDS (9.7-12.2) H 09/28/18 11:39 INR 1.2 09/28/18 11:39 APTT 25 SECONDS (21-34) 09/28/18 11:39 Assessment and Plan - Assessment and Plan (Free Text) Assessment: 1. Left pneumothorax-assymtomatic. 2. Bilateral pleural effusions. 3. Pancytopenia and thrombocytopenia. Plan: Pigtail cath placement by IR. Will follow with you.
[2018-10-05 17:44] LABS: MEAN CORPUSCULAR HEMOGLOBIN 27.5 pg (27.0-31.0); MEAN PLATELET VOLUME 8.4 fL (7.2-11.7); RBC 2.21 Mil/uL (4.40-5.90); RED CELL DISTRIBUTION WIDTH 15.6 % (11.5-14.5); WHITE BLOOD COUNT 2.5 K/uL (4.8-10.8)
[2018-10-05 17:56] LABS: HEMOGLOBIN 6.1 g/dL (12.0-18.0)
--- NOTE | 2018-10-05 21:27 | CP.PCM.PN ---
Subjective - Date & Time of Evaluation Date of Evaluation: 10/05/18 Time of Evaluation: 19:00 - Subjective Subjective: No complaints, transferred to ICU for monitoring of spontaneous pneumothorax Objective - Vital Signs/Intake and Output Vital Signs (last 24 hours): Temp Pulse Resp BP Pulse Ox 98.5 F 79 19 128/53 L 100 10/05/18 17:20 10/05/18 20:00 10/05/18 20:00 10/05/18 19:52 10/05/18 20:00 Intake and Output: 10/05/18 10/06/18 18:59 06:59 Intake Total 670 50 Output Total 520 40 Balance 150 10 - Medications Medications: Current Medications Albuterol/Ipratropium (Duoneb 3 Mg/0.5 Mg (3 Ml) Ud) 3 ml INH RQ6 PRN PRN Reason: Shortness of Breath Docusate Sodium (Colace) 100 mg PO BID [facility] Last Admin: 10/05/18 18:52 Dose: 100 mg Hydrocortisone (Anusol-Hc) 0 gm [place] BID [facility] Last Admin: 10/05/18 18:57 Dose: 2.5 % Azithromycin 500 mg/ Sodium (Chloride) 250 mls @ 250 mls/hr IVPB DAILY [facility]; Protocol Last Admin: 10/05/18 10:58 Dose: 250 mls/hr Ceftriaxone Sodium 1 gm/ (Sodium Chloride) 100 mls @ 100 mls/hr IVPB Q12H [facility]; Protocol Last Admin: 10/05/18 11:11 Dose: 100 mls/hr Ondansetron HCl (Zofran Inj) 4 mg IVP DAILY@ONCE PRN PRN Reason: Nausea/Vomiting Pantoprazole Sodium (Protonix Inj) 40 mg IVP DAILY [facility] Last Admin: 10/05/18 10:56 Dose: 40 mg Saccharomyces Boulardii (Florastor) 250 mg PO BID [facility] Last Admin: 10/05/18 18:55 Dose: 250 mg Tamsulosin HCl (Flomax) 0.4 mg PO DAILY [facility] Last Admin: 10/05/18 11:01 Dose: 0.4 mg - Labs Labs: 10/05/18 17:41 10/05/18 06:03 PT 12.9 SECONDS (9.7-12.2) H 09/28/18 11:39 INR 1.2 09/28/18 11:39 APTT 25 SECONDS (21-34) 09/28/18 11:39 - Head Exam Head Exam: ATRAUMATIC - Eye Exam Eye Exam: Normal appearance - ENT Exam ENT Exam: Mucous Membranes Dry - Respiratory Exam Respiratory Exam: NORMAL BREATHING PATTERN - Cardiovascular Exam Cardiovascular Exam: +S1, +S2 - GI/Abdominal Exam GI & Abdominal Exam: Normal Bowel Sounds Assessment and Plan (1) AML (acute myeloblastic leukemia) Assessment & Plan: decitabine 20mg/m2 IV daily x 5 days not a candidate for 7+3 awaiting insurance/hospital administration approval for treatment Status: Acute (2) Pancytopenia Assessment & Plan: secondary to AML transfusion support goal plt > 10,000 and hgb > 7 Status: Acute (3) Lung mass Assessment & Plan: no current intervention Status: Acute
[2018-10-06 06:01] LABS: EOS % 0.1 % (0.0-4.0); HEMOGLOBIN 9.7 g/dL (12.0-18.0); LYMPH # 0.4 K/uL (1.0-4.3); LYMPH % 16.6 % (20.0-40.0); MEAN CELL VOLUME 86.5 fL (80.0-94.0); MEAN CORPUSCULAR HEMOGLOBIN 28.5 pg (27.0-31.0); MEAN CORPUSCULAR HGB CONC 32.9 g/dL (33.0-37.0); MEAN PLATELET VOLUME 9.8 fL (7.2-11.7); MONO # 1.8 K/uL (0.0-0.8); MONO % 66.3 % (0.0-10.0); NEUT # 0.5 K/uL (1.8-7.0); NRBC % 12.6 % (0.0-2.0); RBC 3.41 Mil/uL (4.40-5.90); RED CELL DISTRIBUTION WIDTH 15.4 % (11.5-14.5); WHITE BLOOD COUNT 2.7 K/uL (4.8-10.8)
[2018-10-06 06:05] LABS: PLATELET COUNT 28 K/uL (130-400)
[2018-10-06 06:22] LABS: ALB/GLOB RATIO 0.8 (1.0-2.1); ALBUMIN 2.4 g/dL (3.5-5.0); ALT/SGPT 26 U/L (21-72); AST/SGOT 23 U/L (17-59); BLOOD UREA NITROGEN 15 mg/dL (9-20); CALCIUM 8.1 mg/dl (8.6-10.4); GFR NON-AFRICAN AMERICAN > 60
--- NOTE | 2018-10-06 07:55 | CP.CCUPN ---
<Logan Mancilla - Last Filed: 10/06/18 10:33> CCU Subjective - Physician Review Subjective (Free Text): 10/06/18 08:27 Patient seen and examined at bedside. No acute events overnight. Patient received 2 units of PRBC and 2 units of platelets yesterday. Plan to insert pigtail/chest tube in the afternoon. Patient denies chest pain or shortness of breath. Critical Care Time Spent (in minutes): 35 CCU Objective - Vital Signs / Intake & Output Vital Signs (Last 4 hours): Vital Signs Temp Pulse Resp BP Pulse Ox 10/06/18 06:01 138/62 10/06/18 06:00 66 14 100 10/06/18 05:06 126/57 L 10/06/18 05:00 78 16 100 10/06/18 04:01 130/63 10/06/18 04:00 97.8 F 77 13 100 Intake and Output (Last 8hrs): Intake & Output 10/05/18 10/06/18 10/06/18 22:59 06:59 14:59 Intake Total 420 750 Output Total 360 460 Balance 60 290 Intake: Intake, IV Amount 100 Right Forearm 100 Oral 370 Blood Product 0 650 Apheresis Plts Acda Lr 0 Irr 2nd Unit [id number] Red Blood Cells Cpd As1 0 325 Lr Unit [id number] Red Blood Cells Cpd As1 325 Lr Unit [id number] Other 50 Apheresis Plts Acda Lr 50 Irr 3rd Unit [id number] Output: Urine 360 460 Urethral (Traylor) 360 460 - Physical Exam Head: Positive for: Atraumatic, Normocephalic Pupils: Positive for: PERRL Extroacular Muscles: Positive for: EOMI Conjunctiva: Positive for: Normal Mouth: Positive for: Moist Mucous Membranes Respiratory/Chest: Positive for: Clear to Auscultation. Negative for: Respiratory Distress, Accessory Muscle Use, Wheezes, Rales, Rhonchi, Tachypneic Cardiovascular: Positive for: Regular Rate and Rhythm, Normal S1, S2. Negative for: Murmurs, Rub, Gallop Abdomen: Positive for: Normal Bowel Sounds. Negative for: Tenderness, Distention, Peritoneal Signs Upper Extremity: Positive for: Normal Inspection. Negative for: Edema Lower Extremity: Positive for: Edema. Negative for: Normal Inspection, CALF TENDERNESS Neurological: Positive for: GCS=15, CN II-XII Intact, Speech Normal Skin: Positive for: Warm, Dry, Pale. Negative for: Rashes Psychiatric: Positive for: Alert, Oriented x 3, Normal Insight, Normal Concentration, Lethargic - Medications Active Medications: Active Medications Generic Name Dose Route Start Last Admin Trade Name Freq PRN Reason Stop Dose Admin Albuterol/Ipratropium 3 ml 09/28/18 19:21 Duoneb 3 Mg/0.5 Mg (3 Ml) Ud INH RQ6 PRN Shortness of Breath Docusate Sodium 100 mg 10/04/18 18:00 10/05/18 18:52 Colace PO 100 mg BID ELDA Administration Hydrocortisone 0 gm 10/04/18 18:00 10/05/18 18:57 Anusol-Hc TN 2.5 % BID ELDA Administration Azithromycin 500 mg/ Sodium 250 mls @ 250 mls/hr 10/03/18 13:00 10/05/18 10:58 Chloride IVPB 250 mls/hr DAILY ELDA Administration Protocol Ceftriaxone Sodium 1 gm/ 100 mls @ 100 mls/hr 10/03/18 12:00 10/06/18 00:06 Sodium Chloride IVPB 100 mls/hr Q12H ELDA Administration Protocol Ondansetron HCl 4 mg 10/04/18 14:15 Zofran Inj IVP DAILY@ONCE PRN Nausea/Vomiting Pantoprazole Sodium 40 mg 09/29/18 10:00 10/05/18 10:56 Protonix Inj IVP 40 mg DAILY ELDA Administration Saccharomyces Boulardii 250 mg 10/04/18 18:00 10/05/18 18:55 Florastor PO 250 mg BID ELDA Administration Tamsulosin HCl 0.4 mg 10/05/18 10:00 10/05/18 11:01 Flomax PO 0.4 mg DAILY ELDA Administration - Patient Studies Lab Studies: Microbiology Studies 10/03/18 14:03 Mycobacterial Culture - Preliminary Other: Please Indicate Lab Studies 10/06/18 10/06/18 10/05/18 Range/Units 05:46 05:46 18:43 WBC 2.7 L (4.8-10.8) K/uL RBC 3.41 L (4.40-5.90) Mil/uL Hgb 9.7 L D (12.0-18.0) g/dL Hct 29.5 L (35.0-51.0) % MCV 86.5 (80.0-94.0) fL MCH 28.5 (27.0-31.0) pg MCHC 32.9 L (33.0-37.0) g/dL RDW 15.4 H (11.5-14.5) % Plt Count 28 L* D (130-400) K/uL MPV 9.8 (7.2-11.7) fL Neut % (Auto) 17.0 L (50.0-75.0) % Lymph % (Auto) 16.6 L (20.0-40.0) % Slope % (Auto) 66.3 H (0.0-10.0) % Eos % (Auto) 0.1 (0.0-4.0) % Baso % (Auto) 0.0 (0.0-2.0) % Neut # (Auto) 0.5 L (1.8-7.0) K/uL Lymph # (Auto) 0.4 L (1.0-4.3) K/uL Slope # (Auto) 1.8 H (0.0-0.8) K/uL Eos # (Auto) 0.0 (0.0-0.7) K/uL Baso # (Auto) 0.0 (0.0-0.2) K/uL Neutrophils % (Manual) (50-75) % Lymphocytes % (Manual) (20-40) % Monocytes % (Manual) (0-10) % Nucleated RBC % (0-0) % Platelet Estimate (NORMAL) Hypochromasia (manual) Poikilocytosis (manual Anisocytosis (manual) Microcytosis (manual) Target Cells Tear Drop Cells Ovalocytes [place] Cells Sodium 137 (132-148) mmol/L Potassium 3.7 (3.6-5.2) mmol/L Chloride 105 (98-107) mmol/L Carbon Dioxide 28 (22-30) mmol/L Anion Gap 8 L (10-20) BUN 15 (9-20) mg/dL Creatinine 0.9 (0.8-1.5) mg/dL Est GFR ( Amer) > 60 Est GFR (Non-Af Amer) > 60 Random Glucose 91 (75-110) mg/dL Calcium 8.1 L (8.6-10.4) mg/dl Phosphorus 4.7 H (2.5-4.5) mg/dL Magnesium 2.0 (1.6-2.3) mg/dL Total Bilirubin 0.6 (0.2-1.3) mg/dL AST 23 (17-59) U/L ALT 26 (21-72) U/L Alkaline Phosphatase 61 (38-126) U/L Total Protein 5.5 L (6.3-8.3) g/dL Albumin 2.4 L (3.5-5.0) g/dL Globulin 3.1 (2.2-3.9) gm/dL Albumin/Globulin Ratio 0.8 L (1.0-2.1) Ur L.pneumophila Ag (NEGATIVE) Blood Type B POSITIVE Antibody Screen Negative 10/05/18 10/05/18 10/01/18 Range/Units 17:41 06:05 17:16 WBC 2.5 L (4.8-10.8) K/uL RBC 2.21 L (4.40-5.90) Mil/uL Hgb 6.1 L* (12.0-18.0) g/dL Hct 19.0 L (35.0-51.0) % MCV 86.0 (80.0-94.0) fL MCH 27.5 (27.0-31.0) pg MCHC 32.0 L (33.0-37.0) g/dL RDW 15.6 H (11.5-14.5) % Plt Count 51 L D (130-400) K/uL MPV 8.4 11.8 H (7.2-11.7) fL Neut % (Auto) 18.0 L (50.0-75.0) % Lymph % (Auto) 28.0 (20.0-40.0) % Slope % (Auto) 54.0 H (0.0-10.0) % Eos % (Auto) 0.0 (0.0-4.0) % Baso % (Auto) 0.0 (0.0-2.0) % Neut # (Auto) 0.4 L (1.8-7.0) K/uL Lymph # (Auto) 0.7 L (1.0-4.3) K/uL [place] # (Auto) 1.3 H (0.0-0.8) K/uL Eos # (Auto) 0.0 (0.0-0.7) K/uL Baso # (Auto) 0.0 (0.0-0.2) K/uL Neutrophils % (Manual) 18 L (50-75) % Lymphocytes % (Manual) 28 (20-40) % Monocytes % (Manual) 54 H (0-10) % Nucleated RBC % 12 H (0-0) % Platelet Estimate Markedly decreased L (NORMAL) Hypochromasia (manual) Moderate Poikilocytosis (manual Slight Anisocytosis (manual) Slight Microcytosis (manual) Slight Target Cells Slight Tear Drop Cells Moderate Ovalocytes Slight [place] Cells Slight Sodium (132-148) mmol/L Potassium (3.6-5.2) mmol/L Chloride (98-107) mmol/L Carbon Dioxide (22-30) mmol/L Anion Gap (10-20) BUN (9-20) mg/dL Creatinine (0.8-1.5) mg/dL Est GFR ( Amer) Est GFR (Non-Af Amer) Random Glucose (75-110) mg/dL Calcium (8.6-10.4) mg/dl Phosphorus (2.5-4.5) mg/dL Magnesium (1.6-2.3) mg/dL Total Bilirubin (0.2-1.3) mg/dL AST (17-59) U/L ALT (21-72) U/L Alkaline Phosphatase (38-126) U/L Total Protein (6.3-8.3) g/dL Albumin (3.5-5.0) g/dL Globulin (2.2-3.9) gm/dL Albumin/Globulin Ratio (1.0-2.1) Ur L.pneumophila Ag Negative (NEGATIVE) Blood Type Antibody Screen Laboratory Results - last 24 hr 10/01/18 10/05/18 10/05/18 17:16 06:05 17:41 WBC 2.5 L RBC 2.21 L Hgb 6.1 L* Hct 19.0 L MCV 86.0 MCH 27.5 MCHC 32.0 L RDW 15.6 H Plt Count 51 L D MPV 11.8 H 8.4 Neut % (Auto) 18.0 L Lymph % (Auto) 28.0 Slope % (Auto) 54.0 H Eos % (Auto) 0.0 Baso % (Auto) 0.0 Neut # (Auto) 0.4 L Lymph # (Auto) 0.7 L [place] # (Auto) 1.3 H Eos # (Auto) 0.0 Baso # (Auto) 0.0 Neutrophils % (Manual) 18 L Lymphocytes % (Manual) 28 Monocytes % (Manual) 54 H Nucleated RBC % 12 H Platelet Estimate Markedly decreased L Hypochromasia (manual) Moderate Poikilocytosis (manual Slight Anisocytosis (manual) Slight Microcytosis (manual) Slight Target Cells Slight Tear Drop Cells Moderate Ovalocytes Slight [place] Cells Slight Sodium Potassium Chloride Carbon Dioxide Anion Gap BUN Creatinine Est GFR ( Amer) Est GFR (Non-Af Amer) Random Glucose Calcium Phosphorus Magnesium Total Bilirubin AST ALT Alkaline Phosphatase Total Protein Albumin Globulin Albumin/Globulin Ratio Ur L.pneumophila Ag Negative Blood Type Antibody Screen 10/05/18 10/06/18 10/06/18 18:43 05:46 05:46 WBC 2.7 L RBC 3.41 L Hgb 9.7 L D Hct 29.5 L MCV 86.5 MCH 28.5 MCHC 32.9 L RDW 15.4 H Plt Count 28 L* D MPV 9.8 Neut % (Auto) 17.0 L Lymph % (Auto) 16.6 L [place] % (Auto) 66.3 H Eos % (Auto) 0.1 Baso % (Auto) 0.0 Neut # (Auto) 0.5 L Lymph # (Auto) 0.4 L [place] # (Auto) 1.8 H Eos # (Auto) 0.0 Baso # (Auto) 0.0 Neutrophils % (Manual) Lymphocytes % (Manual) Monocytes % (Manual) Nucleated RBC % Platelet Estimate Hypochromasia (manual) Poikilocytosis (manual Anisocytosis (manual) Microcytosis (manual) Target Cells Tear Drop Cells Ovalocytes [place] Cells Sodium 137 Potassium 3.7 Chloride 105 Carbon Dioxide 28 Anion Gap 8 L BUN 15 Creatinine 0.9 Est GFR ( Amer) > 60 Est GFR (Non-Af Amer) > 60 Random Glucose 91 Calcium 8.1 L Phosphorus 4.7 H Magnesium 2.0 Total Bilirubin 0.6 AST 23 ALT 26 Alkaline Phosphatase 61 Total Protein 5.5 L Albumin 2.4 L Globulin 3.1 Albumin/Globulin Ratio 0.8 L Ur L.pneumophila Ag Blood Type B POSITIVE Antibody Screen Negative Critical Care Progress Note - Nutrition Nutrition: Nutrition Category Date Time Status Regular Diet [DIET] Diets 10/05/18 Lunch Active Assessment/Plan - Assessment and Plan (Free Text) Assessment: Patient is a 77 year old male with history of tobacco abuse presenting with generalized weakness. Patient found to be pancytopenic. 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 Patient admitted to the ICU for left pneumothorax. Plan: Neuro: - Patient is AAO X 3 Pulm: Left pneumothorax - Repeat chest CT (10/06): f/u - CT chest (10/04): Interval appearance of approximately 35 percent left-sided pneumothorax since the previous exam. - IR consulted, Dr. Garrison - Plan for pigtail/chest tube placement today - Transfused 2 units of platelets yesterday - Patient is currently asymptomatic Lung Masses - CT chest (09/28): Emphysematous changes. Biapical pleural thickening. Bilatera l upper lobe bulla. Abnormal right upper lobe spiculated/irregular opacities possibly malignant neoplasm or consolidation such as pneumonia. Calcifications are evident in this region, as are ground-glass opacities and bronchiectasis. Evidence of chronic interstitial fibrosis. Small bilateral pleural effusions and dependent atelectasis. No pneumothorax. Nodular opacities measuring approximately 6 mm in the left upper lobe (series 4, image 34) and 3 mm in the lingula (64). More localized ground-glass opacities noted in the left lower lobe (image 75). No large central or segmental pulmonary embolus identified. Nodular opacities measuring approximately 6 mm in the left upper lobe and 3 mm in the lingula. More localized ground-glass rounded opacity noted in the left lower lobe. Recommend further evaluation with biopsy, PET- CT, or follow-up CT at 3 months, and 9 months, and 24 months. - Pulmonology consulted, Dr. Thurston - Will biopsy once thrombocytopenia is corrected Possible pneumonia - CXR: Right upper lobe traction bronchiectasis with the probable granulomatous disease. Concomitant right pleural parenchymal pathology here suggested- infiltrate, mass, scar or combination of the above are considerations. - Azithromycin 500 mg IV daily (started on 09/29) - Ceftriaxone 1gm IVPB daily (started on 09/29) - Legionella: Negative - Strep pneumo: Negative - Procalcitonin: wnl Possible tuberculosis infection - CXR (10/02): apical opacity with associated pleural thickening. Nonspecific. Possible small left pleural effusion. Rule out old granulomatous infection. - Sputum culture: Negative X 2 - Quantiferon test: negative - [place] precautions discontinued Emphysematous changes on Chest CT; likely COPD due to history of smoking - See CT results above - Duonebs Q6H PRN - Pulmonology consulted, Dr. Thurston Cardiovascular: Systolic and diastolic heart failure - Echo (09/28): LVEF of 36%, diastolic dysfunction. Trace MR. Mild TR. Small pericardial effusion. - proBNP: 7130 LBBB - EKG reveals LBBB, unsure if new onset - Currently asymptomatic - Will continue to monitor GI: Possible GI bleed - H.4--> 7.7 - FOBT: positive - Protonox 40mg PO daily - GI consulted, Dr. 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 diff: negative - Florastor BID Ventral hernia - Surgery consulted, Dr. Porter Renal: - No acute issues : Urinary retention - Urology consulted Dr. Farshad Mallory - Flomax 0.4mg PO QD Heme: Pancytopenia - Peripheral smear shows moderate teardrop cells possible myelofibrosis - Transfused: 2 units PRBC's and 2 units platelets on admission - 10/01- transfused 1 unit of platelets - 10/05- transufused 2 units of platelets - 10/06- transufused 2 units of platelets and 2 units of PRBC - Hb/Hct: 9.7/29.5 - WBC: 2.7 - Neutropenic precautions - Platelets: 51-->28 - Heme/Onc consulted, Dr. Bobby - No platelet transfusion be done unless manual count is less than 10 or patient has signs of bleeding AML - Prelim pathology report shows AML - Patient is too frail for induction chemotherapy- possible hypomethylating agent in the future - Bone marrow FSH analysis, chromosome karyotyping: f/u ID: - HIV is negative - Hepatitis panel is normal - Blood culture: no growth to date Prophylaxis: - Anticoagulation contraindicated due to thrombocytopenia and anemia - GI: protonix 40 mg QD Case discussed with Dr. Bertrand Mancilla, PGY-1 <Narendra Thurston S - Last Filed: 10/06/18 15:59> CCU Objective - Vital Signs / Intake & Output Vital Signs (Last 4 hours): Vital Signs Temp Pulse Resp BP Pulse Ox 10/06/18 13:01 82 16 132/60 100 10/06/18 13:00 84 17 100 10/06/18 12:01 79 17 141/65 100 10/06/18 12:00 98.3 F 81 19 100 Intake and Output (Last 8hrs): Intake & Output 10/06/18 10/06/18 10/06/18 06:59 14:59 22:59 Intake Total 750 690 Output Total 460 276 Balance 290 414 Intake: Intake, IV Amount 100 300 Right Forearm 100 300 Oral 390 Blood Product 650 Red Blood Cells Cpd As1 325 Lr Unit [id number] Red Blood Cells Cpd As1 325 Lr Unit [id number] Output: Urine 460 275 Urethral (Traylor) 460 275 Stool 1 - Medications Active Medications: Active Medications Generic Name Dose Route Start Last Admin Trade Name Freq PRN Reason Stop Dose Admin Albuterol/Ipratropium 3 ml 09/28/18 19:21 Duoneb 3 Mg/0.5 Mg (3 Ml) Ud INH RQ6 PRN Shortness of Breath Docusate Sodium 100 mg 10/04/18 18:00 10/06/18 11:37 Colace PO 100 mg BID ELDA Administration Hydrocortisone 0 gm 10/04/18 18:00 10/06/18 11:37 Anusol-Hc TN 2.5 % BID ELDA Administration Azithromycin 500 mg/ Sodium 250 mls @ 250 mls/hr 10/03/18 13:00 10/06/18 11:38 Chloride IVPB 250 mls/hr DAILY ELDA Administration Protocol Ceftriaxone Sodium 1 gm/ 100 mls @ 100 mls/hr 10/03/18 12:00 10/06/18 11:35 Sodium Chloride IVPB 100 mls/hr Q12H ELDA Administration Protocol Ondansetron HCl 4 mg 10/04/18 14:15 Zofran Inj IVP DAILY@ONCE PRN Nausea/Vomiting Pantoprazole Sodium 40 mg 09/29/18 10:00 10/06/18 11:36 Protonix Inj IVP 40 mg DAILY ELDA Administration Saccharomyces Boulardii 250 mg 10/04/18 18:00 10/06/18 11:37 Florastor PO 250 mg BID ELDA Administration Tamsulosin HCl 0.4 mg 10/05/18 10:00 10/06/18 11:36 Flomax PO 0.4 mg DAILY ELDA Administration - Patient Studies Lab Studies: Microbiology Studies 10/04/18 22:43 Urine Culture - Final Urine,Catheterized No Growth (<1,000 CFU/ML) 10/03/18 14:03 Mycobacterial Culture - Preliminary Other: Please Indicate Lab Studies 10/06/18 10/06/18 10/05/18 Range/Units 05:46 05:46 18:43 WBC 2.7 L (4.8-10.8) K/uL RBC 3.41 L (4.40-5.90) Mil/uL Hgb 9.7 L D (12.0-18.0) g/dL Hct 29.5 L (35.0-51.0) % MCV 86.5 (80.0-94.0) fL MCH 28.5 (27.0-31.0) pg MCHC 32.9 L (33.0-37.0) g/dL RDW 15.4 H (11.5-14.5) % Plt Count 28 L* D (130-400) K/uL MPV 9.8 (7.2-11.7) fL Neut % (Auto) 17.0 L (50.0-75.0) % Lymph % (Auto) 16.6 L (20.0-40.0) % [place] % (Auto) 66.3 H (0.0-10.0) % Eos % (Auto) 0.1 (0.0-4.0) % Baso % (Auto) 0.0 (0.0-2.0) % Neut # (Auto) 0.5 L (1.8-7.0) K/uL Lymph # (Auto) 0.4 L (1.0-4.3) K/uL [place] # (Auto) 1.8 H (0.0-0.8) K/uL Eos # (Auto) 0.0 (0.0-0.7) K/uL Baso # (Auto) 0.0 (0.0-0.2) K/uL Neutrophils % (Manual) 23 L (50-75) % Lymphocytes % (Manual) 28 (20-40) % Monocytes % (Manual) 49 H (0-10) % Nucleated RBC % 14 H (0-0) % Platelet Estimate Markedly decreased L (NORMAL) Polychromasia Slight Hypochromasia (manual) Slight Poikilocytosis (manual Slight Anisocytosis (manual) Slight Tear Drop Cells Slight Ovalocytes Slight [place] Cells Slight Acanthocytes ([place]) Slight Sodium 137 (132-148) mmol/L Potassium 3.7 (3.6-5.2) mmol/L Chloride 105 (98-107) mmol/L Carbon Dioxide 28 (22-30) mmol/L Anion Gap 8 L (10-20) BUN 15 (9-20) mg/dL Creatinine 0.9 (0.8-1.5) mg/dL Est GFR ( Amer) > 60 Est GFR (Non-Af Amer) > 60 Random Glucose 91 (75-110) mg/dL Calcium 8.1 L (8.6-10.4) mg/dl Phosphorus 4.7 H (2.5-4.5) mg/dL Magnesium 2.0 (1.6-2.3) mg/dL Total Bilirubin 0.6 (0.2-1.3) mg/dL AST 23 (17-59) U/L ALT 26 (21-72) U/L Alkaline Phosphatase 61 (38-126) U/L Total Protein 5.5 L (6.3-8.3) g/dL Albumin 2.4 L (3.5-5.0) g/dL Globulin 3.1 (2.2-3.9) gm/dL Albumin/Globulin Ratio 0.8 L (1.0-2.1) Blood Type B POSITIVE Antibody Screen Negative 10/05/18 Range/Units 17:41 WBC 2.5 L (4.8-10.8) K/uL RBC 2.21 L (4.40-5.90) Mil/uL Hgb 6.1 L* (12.0-18.0) g/dL Hct 19.0 L (35.0-51.0) % MCV 86.0 (80.0-94.0) fL MCH 27.5 (27.0-31.0) pg MCHC 32.0 L (33.0-37.0) g/dL RDW 15.6 H (11.5-14.5) % Plt Count 51 L D (130-400) K/uL MPV 8.4 (7.2-11.7) fL Neut % (Auto) (50.0-75.0) % Lymph % (Auto) (20.0-40.0) % [place] % (Auto) (0.0-10.0) % Eos % (Auto) (0.0-4.0) % Baso % (Auto) (0.0-2.0) % Neut # (Auto) (1.8-7.0) K/uL Lymph # (Auto) (1.0-4.3) K/uL [place] # (Auto) (0.0-0.8) K/uL Eos # (Auto) (0.0-0.7) K/uL Baso # (Auto) (0.0-0.2) K/uL Neutrophils % (Manual) (50-75) % Lymphocytes % (Manual) (20-40) % Monocytes % (Manual) (0-10) % Nucleated RBC % (0-0) % Platelet Estimate (NORMAL) Polychromasia Hypochromasia (manual) Poikilocytosis (manual Anisocytosis (manual) Tear Drop Cells Ovalocytes Helmet Cells Acanthocytes ([place]) Sodium (132-148) mmol/L Potassium (3.6-5.2) mmol/L Chloride (98-107) mmol/L Carbon Dioxide (22-30) mmol/L Anion Gap (10-20) BUN (9-20) mg/dL Creatinine (0.8-1.5) mg/dL Est GFR ( Amer) Est GFR (Non-Af Amer) Random Glucose (75-110) mg/dL Calcium (8.6-10.4) mg/dl Phosphorus (2.5-4.5) mg/dL Magnesium (1.6-2.3) mg/dL Total Bilirubin (0.2-1.3) mg/dL AST (17-59) U/L ALT (21-72) U/L Alkaline Phosphatase (38-126) U/L Total Protein (6.3-8.3) g/dL Albumin (3.5-5.0) g/dL Globulin (2.2-3.9) gm/dL Albumin/Globulin Ratio (1.0-2.1) Blood Type Antibody Screen Laboratory Results - last 24 hr 10/05/18 10/05/18 10/06/18 17:41 18:43 05:46 WBC 2.5 L 2.7 L RBC 2.21 L 3.41 L Hgb 6.1 L* 9.7 L D Hct 19.0 L 29.5 L MCV 86.0 86.5 MCH 27.5 28.5 MCHC 32.0 L 32.9 L RDW 15.6 H 15.4 H Plt Count 51 L D 28 L* D MPV 8.4 9.8 Neut % (Auto) 17.0 L Lymph % (Auto) 16.6 L [place] % (Auto) 66.3 H Eos % (Auto) 0.1 Baso % (Auto) 0.0 Neut # (Auto) 0.5 L Lymph # (Auto) 0.4 L [place] # (Auto) 1.8 H Eos # (Auto) 0.0 Baso # (Auto) 0.0 Neutrophils % (Manual) 23 L Lymphocytes % (Manual) 28 Monocytes % (Manual) 49 H Nucleated RBC % 14 H Platelet Estimate Markedly decreased L Polychromasia Slight Hypochromasia (manual) Slight Poikilocytosis (manual Slight Anisocytosis (manual) Slight Tear Drop Cells Slight Ovalocytes Slight Helmet Cells Slight Acanthocytes ([place]) Slight Sodium Potassium Chloride Carbon Dioxide Anion Gap BUN Creatinine Est GFR ( Amer) Est GFR (Non-Af Amer) Random Glucose Calcium Phosphorus Magnesium Total Bilirubin AST ALT Alkaline Phosphatase Total Protein Albumin Globulin Albumin/Globulin Ratio Blood Type B POSITIVE Antibody Screen Negative 10/06/18 05:46 WBC RBC Hgb Hct MCV MCH MCHC RDW Plt Count MPV Neut % (Auto) Lymph % (Auto) [place] % (Auto) Eos % (Auto) Baso % (Auto) Neut # (Auto) Lymph # (Auto) [place] # (Auto) Eos # (Auto) Baso # (Auto) Neutrophils % (Manual) Lymphocytes % (Manual) Monocytes % (Manual) Nucleated RBC % Platelet Estimate Polychromasia Hypochromasia (manual) Poikilocytosis (manual Anisocytosis (manual) Tear Drop Cells Ovalocytes Helmet Cells Acanthocytes ([place]) Sodium 137 Potassium 3.7 Chloride 105 Carbon Dioxide 28 Anion Gap 8 L BUN 15 Creatinine 0.9 Est GFR ( Amer) > 60 Est GFR (Non-Af Amer) > 60 Random Glucose 91 Calcium 8.1 L Phosphorus 4.7 H Magnesium 2.0 Total Bilirubin 0.6 AST 23 ALT 26 Alkaline Phosphatase 61 Total Protein 5.5 L Albumin 2.4 L Globulin 3.1 Albumin/Globulin Ratio 0.8 L Blood Type Antibody Screen Critical Care Progress Note - Nutrition Nutrition: Nutrition Category Date Time Status Regular Diet [DIET] Diets 10/05/18 Lunch Active Assessment/Plan (1) Lung mass Current Visit: Yes Status: Acute (2) Pancytopenia Current Visit: Yes Status: Acute (3) Pneumonia Current Visit: Yes Status: Acute Attending/Attestation - Attestation I have personally seen and examined this patient.: Yes I have fully participated in the care of the patient.: Yes I have reviewed all pertinent clinical information: Yes Notes (Text): 10/06/18 15:57 patient seen and examined in the intensive Unit. CAT scan of the chest showed decreasing pneumothorax and moderate pleural effusion Patient in no respiratory distress Transfer patient to floor Continue nebulizer treatment Discontinue respiratory isolation
[2018-10-06 08:58] LABS: ANISOCYTOSIS SLIGHT; HYPOCHROMIC SLIGHT; LYMPHOCYTE 28 % (20-40); MONOCYTE 49 % (0-10); NEUTROPHIL 23 % (50-75); NUCLEATED RED BLOOD CELL 14 % (0-0); PLATELET ESTIMATE MARKEDLY DECREASED (NORMAL); POIKILOCYTOSIS SLIGHT; TOTAL CELLS COUNTED 100
[2018-10-06 09:00] LABS: TEARDROP CELLS SLIGHT
[2018-10-06 09:01] LABS: ACANTHOCYTES SLIGHT; HELMET CELLS SLIGHT
[2018-10-06 09:02] LABS: OVALOCYTES SLIGHT; POLYCHROMIC SLIGHT
[2018-10-06] MEDS: Saccharomyces Boulardi 250 mg Cap PO SCH ×2 (11:37→17:52)
[2018-10-06] MEDS: Hydrocortisone 2.5% Rectal Cream(30 gm) PR SCH ×2 (11:37→17:53)
[2018-10-06] MEDS: Azithromycin 500 MG in Sodium Chloride 0.9% 250 ML IVPB SCH (11:38)
--- NOTE | 2018-10-06 11:43 | CP.PCM.PN ---
<Noelle Chowdhury - Last Filed: 10/06/18 22:43> Subjective - Date & Time of Evaluation Date of Evaluation: 10/06/18 Time of Evaluation: 10:00 - Subjective Subjective: Cardiothoracic progress note for Dr. Shantal Hameed seen and examined in the ICU today. Patient denies any chest pain, SOB, fevers or chills. Patient received 2 units of platelets overnight. Objective - Vital Signs/Intake and Output Vital Signs (last 24 hours): Temp Pulse Resp BP Pulse Ox 97.8 F 81 15 129/61 100 10/06/18 04:00 10/06/18 11:01 10/06/18 11:01 10/06/18 11:01 10/06/18 11:01 Intake and Output: 10/06/18 10/06/18 06:59 18:59 Intake Total 800 210 Output Total 650 1 Balance 150 209 - Medications Medications: Current Medications Albuterol/Ipratropium (Duoneb 3 Mg/0.5 Mg (3 Ml) Ud) 3 ml INH RQ6 PRN PRN Reason: Shortness of Breath Docusate Sodium (Colace) 100 mg PO BID [facility] Last Admin: 10/06/18 11:37 Dose: 100 mg Hydrocortisone (Anusol-Hc) 0 gm DE BID [facility] Last Admin: 10/06/18 11:37 Dose: 2.5 % Azithromycin 500 mg/ Sodium (Chloride) 250 mls @ 250 mls/hr IVPB DAILY [facility]; Protocol Last Admin: 10/05/18 10:58 Dose: 250 mls/hr Ceftriaxone Sodium 1 gm/ (Sodium Chloride) 100 mls @ 100 mls/hr IVPB Q12H [facility]; Protocol Last Admin: 10/06/18 11:35 Dose: 100 mls/hr Ondansetron HCl (Zofran Inj) 4 mg IVP DAILY@ONCE PRN PRN Reason: Nausea/Vomiting Pantoprazole Sodium (Protonix Inj) 40 mg IVP DAILY [facility] Last Admin: 10/06/18 11:36 Dose: 40 mg Saccharomyces Boulardii (Florastor) 250 mg PO BID [facility] Last Admin: 10/06/18 11:37 Dose: 250 mg Tamsulosin HCl (Flomax) 0.4 mg PO DAILY [facility] Last Admin: 10/06/18 11:36 Dose: 0.4 mg - Labs Labs: 10/06/18 05:46 10/06/18 05:46 PT 12.9 SECONDS (9.7-12.2) H 09/28/18 11:39 INR 1.2 09/28/18 11:39 APTT 25 SECONDS (21-34) 09/28/18 11:39 - Constitutional Appears: Non-toxic, No Acute Distress, Chronically Ill - Head Exam Head Exam: ATRAUMATIC, NORMOCEPHALIC - Eye Exam Eye Exam: Normal appearance. absent: Conjunctival injection, Scleral icterus - ENT Exam ENT Exam: Mucous Membranes Moist, Normal Oropharynx - Respiratory Exam Respiratory Exam: NORMAL BREATHING PATTERN. absent: Accessory Muscle Use, Respiratory Distress Additional comments: on non-rebreather mask - Cardiovascular Exam Cardiovascular Exam: RRR - GI/Abdominal Exam GI & Abdominal Exam: Soft. absent: Distended, Tenderness - Extremities Exam Extremities Exam: absent: Calf Tenderness, Pedal Edema, Tenderness - Neurological Exam Neurological Exam: Alert, Awake, Oriented x3 - Psychiatric Exam Psychiatric exam: Normal Affect, Normal Mood - Skin Skin Exam: Dry, Intact, Normal Color, Warm Assessment and Plan - Assessment and Plan (Free Text) Assessment: 77M with spontaneous left pneumothorax Plan: Repeat CT chest this AM showed significant improvement of the pneumothorax compared to prior CT Patient is stable and has severe thrombocytopenia--No indication for car diothoracic surgery intervention at this time F/U IR recs--no intervention planned at this time D/T improvement and patient stability Medical management per primary Repeat CXR tomorrow AM Discussed with Dr. Shantal Chowdhury, PGY2 <Michael Nunes - Last Filed: 10/08/18 13:40> Objective - Vital Signs/Intake and Output Vital Signs (last 24 hours): Temp Pulse Resp BP Pulse Ox 99.1 F 105 H 20 153/78 H 98 10/08/18 08:34 10/08/18 08:34 10/08/18 08:34 10/08/18 08:34 10/08/18 08:34 Intake and Output: 10/08/18 10/08/18 06:59 18:59 Intake Total 1256 Output Total 2200 Balance -944 - Medications Medications: Current Medications Acetaminophen (Tylenol 325mg Tab) 650 mg PO ONCE ONE Stop: 10/09/18 12:01 Acetaminophen (Tylenol 325mg Tab) 650 mg PO ONCE ONE Stop: 10/10/18 12:01 Acetaminophen (Tylenol 325mg Tab) 650 mg PO ONCE ONE Stop: 10/11/18 12:01 Diphenhydramine HCl (Benadryl) 25 mg IVP ONCE ONE Stop: 10/09/18 12:01 Diphenhydramine HCl (Benadryl) 25 mg IVP ONCE ONE Stop: 10/10/18 12:01 Diphenhydramine HCl (Benadryl) 25 mg IVP ONCE ONE Stop: 10/11/18 12:01 Docusate Sodium (Colace) 100 mg PO BID [facility] Last Admin: 10/08/18 09:42 Dose: 100 mg Famotidine (Pepcid) 20 mg IVP ONCE ONE Stop: 10/09/18 12:01 Famotidine (Pepcid) 20 mg IVP ONCE ONE Stop: 10/10/18 12:01 Famotidine (Pepcid) 20 mg IVP ONCE ONE Stop: 10/11/18 14:01 Hydrocortisone (Anusol-Hc) 0 gm DE BID [facility] Last Admin: 10/08/18 09:44 Dose: 2.5 % Decitabine 30 mg/ Sodium (Chloride) 256 mls @ 256 mls/hr IV .Q1H ONE Stop: 10/09/18 13:29 Decitabine 30 mg/ Sodium (Chloride) 256 mls @ 256 mls/hr IV .Q1H ONE Stop: 10/10/18 13:29 Decitabine 30 mg/ Sodium (Chloride) 256 mls @ 256 mls/hr IV .Q1H ONE Stop: 10/11/18 13:29 Ondansetron HCl (Zofran Inj) 4 mg IVP DAILY@ONCE PRN PRN Reason: Nausea/Vomiting Pantoprazole Sodium (Protonix Inj) 40 mg IVP DAILY [facility] Last Admin: 10/08/18 09:42 Dose: 40 mg Saccharomyces Boulardii (Florastor) 250 mg PO BID [facility] Last Admin: 10/08/18 09:42 Dose: 250 mg Tamsulosin HCl (Flomax) 0.4 mg PO DAILY [facility] Last Admin: 10/08/18 09:42 Dose: 0.4 mg - Labs Labs: 10/08/18 08:29 10/08/18 08:29 PT 12.9 SECONDS (9.7-12.2) H 09/28/18 11:39 INR 1.2 09/28/18 11:39 APTT 25 SECONDS (21-34) 09/28/18 11:39 Attending/Attestation - Attestation I have personally seen and examined this patient.: Yes I have fully participated in the care of the patient.: Yes I have reviewed all pertinent clinical information, including history, physical exam and plan: Yes
--- NOTE | 2018-10-06 15:48 | CT ---
Date of service: 10/06/2018 PROCEDURE: CT Chest without contrast HISTORY: L pneumothorax COMPARISON: Noncontrast chest CT 10/04/2018. TECHNIQUE: Contiguous axial images were obtained through the chest without intravenous contrast enhancement. Sagittal and coronal reconstructions were performed. Radiation dose: Total exam DLP = 206.85 mGy-cm. This CT exam was performed using one or more of the following dose reduction techniques: Automated exposure control, adjustment of the mA and/or kV according to patient size, and/or use of iterative reconstruction technique. FINDINGS: LUNGS: Mild COPD changes reiterated, apical predominant. A calcified fibrotic changes are reiterated at the right apex. Limited bilateral compression atelectasis of the lower lobes, right greater than left. MEDIASTINUM: Normal sized heart. Main pulmonary artery unremarkable. No vascular congestion. No lymphadenopathy. Calcific atherosclerotic changes are seen related to the thoracic aorta. PLEURA: Diminishing left pneumothorax with mid very mild residual. Right pneumothorax. Moderate left mild right pleural effusion effusions identified indicating increased volume at the left and stable volume at the right. BONES: Sub cm sclerotic foci again seen related to C5 and T11 vertebral bodies. No interval fracture appreciable. UPPER ABDOMEN: Retained oral contrast identified within large-bowel with retained food identified distending the stomach. Small lucency left lobe liver again evident. Anasarca type changes are seen affecting intra peritoneal and abdominal wall fat. OTHER FINDINGS: None. IMPRESSION: 1. Diminished left pneumothorax with very mild residual noted. None identified at the right. Stable mild right pleural effusion. Slightly increased moderate left pleural effusion evident. Compression atelectasis affects the bilateral lower lobes. 2. Mild COPD pattern reiterated with stable right apical partially calcified fibrotic changes evident once again. 3. Additional lesser findings reiterated as discussed above.
[2018-10-07 05:53] LABS: LYMPH # 0.6 K/uL (1.0-4.3); LYMPH % 22.9 % (20.0-40.0); MEAN CELL VOLUME 86.2 fL (80.0-94.0); MEAN CORPUSCULAR HEMOGLOBIN 28.2 pg (27.0-31.0); MEAN CORPUSCULAR HGB CONC 32.7 g/dL (33.0-37.0); MEAN PLATELET VOLUME 11.2 fL (7.2-11.7); MONO # 1.9 K/uL (0.0-0.8); MONO % 67.6 % (0.0-10.0); NEUT # 0.3 K/uL (1.8-7.0); NEUT % 9.5 % (50.0-75.0); NRBC % 6.4 % (0.0-2.0); RBC 3.55 Mil/uL (4.40-5.90); RED CELL DISTRIBUTION WIDTH 15.1 % (11.5-14.5); WHITE BLOOD COUNT 2.8 K/uL (4.8-10.8)
[2018-10-07 05:57] LABS: PLATELET COUNT 12 K/uL (130-400)
[2018-10-07 06:16] LABS: ALB/GLOB RATIO 0.8 (1.0-2.1); ALBUMIN 2.4 g/dL (3.5-5.0); ALT/SGPT 21 U/L (21-72); AST/SGOT 23 U/L (17-59); BLOOD UREA NITROGEN 16 mg/dL (9-20); CALCIUM 8.2 mg/dl (8.6-10.4); GFR NON-AFRICAN AMERICAN > 60
[2018-10-07 08:55] LABS: LYMPHOCYTE 29 % (20-40); MONOCYTE 54 % (0-10); NEUTROPHIL 16 % (50-75); NUCLEATED RED BLOOD CELL 7 % (0-0); PLATELET ESTIMATE MARKEDLY DECREASED (NORMAL); REACTIVE LYMPHOCYTES 1 % (0-0); TOTAL CELLS COUNTED 100
[2018-10-07 08:56] LABS: ANISOCYTOSIS SLIGHT; HYPOCHROMIC SLIGHT; POIKILOCYTOSIS SLIGHT
--- NOTE | 2018-10-07 09:09 | CP.PCM.PN ---
<Jasen Ramirez - Last Filed: 10/07/18 09:06> Subjective - Date & Time of Evaluation Date of Evaluation: 10/07/18 Time of Evaluation: 09:06 - Subjective Subjective: Cardiothoracic progress note for Dr. Nunes Patient seen and examined in the ICU today. Patient denies any chest pain, SOB, fevers or chills. Objective - Vital Signs/Intake and Output Vital Signs (last 24 hours): Temp Pulse Resp BP Pulse Ox 98.7 F 82 16 134/61 100 10/07/18 07:58 10/07/18 08:01 10/07/18 08:01 10/07/18 08:01 10/07/18 08:01 Intake and Output: 10/07/18 10/07/18 06:59 18:59 Intake Total 240 Balance 240 - Medications Medications: Current Medications Albuterol/Ipratropium (Duoneb 3 Mg/0.5 Mg (3 Ml) Ud) 3 ml INH RQ6 PRN PRN Reason: Shortness of Breath Docusate Sodium (Colace) 100 mg PO BID [facility] Last Admin: 10/06/18 17:52 Dose: 100 mg Hydrocortisone (Anusol-Hc) 0 gm SC BID [facility] Last Admin: 10/06/18 17:53 Dose: 2.5 % Azithromycin 500 mg/ Sodium (Chloride) 250 mls @ 250 mls/hr IVPB DAILY [facility]; Protocol Last Admin: 10/06/18 11:38 Dose: 250 mls/hr Ceftriaxone Sodium 1 gm/ (Sodium Chloride) 100 mls @ 100 mls/hr IVPB Q12H [facility]; Protocol Last Admin: 10/07/18 00:11 Dose: 100 mls/hr Ondansetron HCl (Zofran Inj) 4 mg IVP DAILY@ONCE PRN PRN Reason: Nausea/Vomiting Pantoprazole Sodium (Protonix Inj) 40 mg IVP DAILY [facility] Last Admin: 10/06/18 11:36 Dose: 40 mg Saccharomyces Boulardii (Florastor) 250 mg PO BID [facility] Last Admin: 10/06/18 17:52 Dose: 250 mg Tamsulosin HCl (Flomax) 0.4 mg PO DAILY [facility] Last Admin: 10/06/18 11:36 Dose: 0.4 mg - Labs Labs: 10/07/18 05:45 10/07/18 05:45 PT 12.9 SECONDS (9.7-12.2) H 09/28/18 11:39 INR 1.2 09/28/18 11:39 APTT 25 SECONDS (21-34) 09/28/18 11:39 - Constitutional Appears: Non-toxic, No Acute Distress, Chronically Ill - Head Exam Head Exam: ATRAUMATIC, NORMOCEPHALIC - Eye Exam Eye Exam: Normal appearance. absent: Conjunctival injection, Scleral icterus - ENT Exam ENT Exam: Mucous Membranes Moist, Normal Oropharynx - Respiratory Exam Respiratory Exam: NORMAL BREATHING PATTERN. absent: Accessory Muscle Use, Respiratory Distress - Cardiovascular Exam Cardiovascular Exam: RRR - GI/Abdominal Exam GI & Abdominal Exam: Soft. absent: Distended, Tenderness - Extremities Exam Extremities Exam: absent: Calf Tenderness, Pedal Edema, Tenderness - Neurological Exam Neurological Exam: Alert, Awake, Oriented x3 - Psychiatric Exam Psychiatric exam: Normal Affect, Normal Mood - Skin Skin Exam: Dry, Intact, Normal Color, Warm Assessment and Plan - Assessment and Plan (Free Text) Assessment: 77M with spontaneous left pneumothorax Plan: Pneumothorax appears to be resolving, patient is thrombocytopenic with platelet count of 12 this AM. Currently rsisks exceed benefits of chest tube placement. No surgical intervention at this time. Please call surgical pathologist or attending if patient requires additional surgical evaluation. Thank you for the interesting consult. Discussed with Dr. Manju Ramirez PGY3 <Michael Nunes - Last Filed: 10/08/18 13:38> Objective - Vital Signs/Intake and Output Vital Signs (last 24 hours): Temp Pulse Resp BP Pulse Ox 99.1 F 105 H 20 153/78 H 98 10/08/18 08:34 10/08/18 08:34 10/08/18 08:34 10/08/18 08:34 10/08/18 08:34 Intake and Output: 10/08/18 10/08/18 06:59 18:59 Intake Total 1256 Output Total 2200 Balance -944 - Medications Medications: Current Medications Acetaminophen (Tylenol 325mg Tab) 650 mg PO ONCE ONE Stop: 10/09/18 12:01 Acetaminophen (Tylenol 325mg Tab) 650 mg PO ONCE ONE Stop: 10/10/18 12:01 Acetaminophen (Tylenol 325mg Tab) 650 mg PO ONCE ONE Stop: 10/11/18 12:01 Albuterol/Ipratropium (Duoneb 3 Mg/0.5 Mg (3 Ml) Ud) 3 ml INH RQ6 PRN PRN Reason: Shortness of Breath Diphenhydramine HCl (Benadryl) 25 mg IVP ONCE ONE Stop: 10/09/18 12:01 Diphenhydramine HCl (Benadryl) 25 mg IVP ONCE ONE Stop: 10/10/18 12:01 Diphenhydramine HCl (Benadryl) 25 mg IVP ONCE ONE Stop: 10/11/18 12:01 Docusate Sodium (Colace) 100 mg PO BID [facility] Last Admin: 10/08/18 09:42 Dose: 100 mg Famotidine (Pepcid) 20 mg IVP ONCE ONE Stop: 10/09/18 12:01 Famotidine (Pepcid) 20 mg IVP ONCE ONE Stop: 10/10/18 12:01 Famotidine (Pepcid) 20 mg IVP ONCE ONE Stop: 10/11/18 14:01 Hydrocortisone (Anusol-Hc) 0 gm SC BID [facility] Last Admin: 10/08/18 09:44 Dose: 2.5 % Decitabine 30 mg/ Sodium (Chloride) 256 mls @ 256 mls/hr IV .Q1H ONE Stop: 10/09/18 13:29 Decitabine 30 mg/ Sodium (Chloride) 256 mls @ 256 mls/hr IV .Q1H ONE Stop: 10/10/18 13:29 Decitabine 30 mg/ Sodium (Chloride) 256 mls @ 256 mls/hr IV .Q1H ONE Stop: 10/11/18 13:29 Ondansetron HCl (Zofran Inj) 4 mg IVP DAILY@ONCE PRN PRN Reason: Nausea/Vomiting Pantoprazole Sodium (Protonix Inj) 40 mg IVP DAILY [facility] Last Admin: 10/08/18 09:42 Dose: 40 mg Saccharomyces Boulardii (Florastor) 250 mg PO BID [facility] Last Admin: 10/08/18 09:42 Dose: 250 mg Tamsulosin HCl (Flomax) 0.4 mg PO DAILY [facility] Last Admin: 10/08/18 09:42 Dose: 0.4 mg - Labs Labs: 10/08/18 08:29 10/08/18 08:29 PT 12.9 SECONDS (9.7-12.2) H 09/28/18 11:39 INR 1.2 09/28/18 11:39 APTT 25 SECONDS (21-34) 09/28/18 11:39 Attending/Attestation - Attestation I have personally seen and examined this patient.: Yes I have fully participated in the care of the patient.: Yes I have reviewed all pertinent clinical information, including history, physical exam and plan: Yes
[2018-10-07] MEDS: Saccharomyces Boulardi 250 mg Cap PO SCH ×2 (09:31→17:27)
[2018-10-07] MEDS: Hydrocortisone 2.5% Rectal Cream(30 gm) PR SCH ×2 (09:33→21:49)
[2018-10-07] MEDS: Azithromycin 500 MG in Sodium Chloride 0.9% 250 ML IVPB SCH (10:35)
--- NOTE | 2018-10-07 12:37 | US ---
Limited left coral thorax ultrasound History: Pleural effusion. Comparison: None available. Technique: Real-time sonography was performed through the left hemithorax. Findings: Left pleural effusion was marked. Impression: Left pleural effusion was marked.
--- NOTE | 2018-10-07 13:01 | CP.PCM.CON ---
History of Present Illness - History of Present Illness History of Present Illness: Palliative consult requested by Doctor Soares for goals of care discussion Patient is a 77 yo male sent in from his PCP office with Hb of 5.5. Patient also admitted feeling weak and tired for few weeks. This was fallowed by weight loss of 5 lb over one week. Patient denied bloody stools or any other abnormal bleeding. he admitted to dry cough with chills. After talkig OTC meds chilss and fever disappeared. CT chest significant for bulla to B/L upper lungs , nodular opacities and interstitial fibrosis. Chest tube was considered for pneumothorax, but fallow up CT showed resolution. 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 Doctor Diamante on case. IV chemotherapy ordered. HB post transfusions 10.0 today. Thrombocytopenia and neutropenia remain significant. PMH: Denies Fam. Hx: father from complications from smoking cigarets Soc. Hx: , lives with , children grown and out of house, was going to Gym daily Review of Systems - Constitutional Constitutional: Weight Loss, Weakness - EENT Eyes: absent: As Per HPI, Blind Spots, Blurred Vision, Change in Vision, Decreased Night Vision, Diplopia, Discharge, Dry Eye, Exophthalmos, Floaters, Irritation, Itchy Eyes, Loss of Peripheral Vision, Pain, Photophobia, Requires Corrective Lenses, Sees Flashes, Spots in Vision, Tunnel Vision, Other Visual Disturbances, Loss of Vision, Other Ears: absent: As Per HPI, Decreased Hearing, Ear Discharge, Ear Pain, Tinnitus, Abnormal Hearing, Disequilibrium, Dizziness, Other Nose/Mouth/Throat: absent: As Per HPI, Epistaxis, Nasal Congestion, Nasal Discharge, Nasal Obstruction, Nasal Trauma, Nose Pain, Post Nasal Drip, Sinus Pain, Sinus Pressure, Bleeding Gums, Change in Voice, Dental Pain, Dry Mouth, Dysphagia, Halitosis, Hoarsness, Lip Swelling, Mouth Lesions, Mouth Pain, Odynophagia, Sore Throat, Throat Swelling, Tongue Swelling, Facial Pain, Neck Pain, Neck Mass, Other - Cardiovascular Cardiovascular: absent: As Per HPI, Acrocyanosis, Chest Pain, Chest Pain at Rest, Chest Pain with Activity, Claudication, Diaphoresis, Dyspnea, Dyspnea on Exertion, Edema, Irregular Heart Rhythm, Pain Radiating to Arm/Neck/Jaw, Leg Edema, Leg Ulcers, Lightheadedness, Orthopnea, Palpitations, Paroxysmal Noc turnal Dyspnea, Pedal Edema, Radiating Pain, Rapid Heart Rate, Slow Heart Rate, Syncope, Other - Respiratory Respiratory: Dyspnea on Exertion - Gastrointestinal Gastrointestinal: absent: As Per HPI, Abdominal Pain, Belching, Bloating, Change in Bowel Habits, Change in Stool Character, Coffee Ground Emesis, Constipation, Cramping, Diarrhea, Dyspepsia, Dysphagia, Early Satiety, Excessive Flatus, Fecal Incontinence, Heartburn, Hematemesis, Hematochezia, Loose Stools, Melena, Nausea, Odynophagia, Temesmus, Vomiting, Other - Genitourinary Genitourinary: absent: As Per HPI, Change in Urinary Stream, Difficulty Urinating, Dysuria, Flank Pain, Hematuria, Pyuria, Nocturia, Urinary In continence, Urinary Frequency, Urinary Hesitance, Urinary Urgency, Voiding Freq/Small Amts, Freq UTI, Hx Renal/Bladder Calculi, Hx /Renal Surgery, Bladder Distension, Other - Musculoskeletal Musculoskeletal: Muscle Weakness - Integumentary Integumentary: Dry Skin - Neurological Neurological: Abnormal Gait, Weakness - Psychiatric Psychiatric: absent: As Per HPI, Abnormal Sleep Pattern, Anhedonia, Anxiety, Auditory Hallucinations, Behavioral Changes, Change in Appetite, Change in Libido, Confusion, Depression, Difficulty Concentrating, Hallucinations, Homicidal Ideation, Hopelessness, Irritability, Memory Loss, Mood Swings, Panic Attacks, Paranoia, Suicidal Ideation, Visual Hallucinations, Tactile Hallucinations, Other - Endocrine Endocrine: absent: As Per HPI, Change in Body Appearance, Change in Libido, Cold Intolorance, Deepening of Voice, Excessive Sweating, Fatigue, Flushing, Heat Intolorance, Increase in Ring/Shoe/Hat Size, Palpitations, Polydipsia, Polyphagia, Polyuria, Other - Hematologic/Lymphatic Hematologic: Easy Bleeding, Easy Bruising Past Patient History - Infectious Disease Hx of Infectious Diseases: None - Past Medical History & Family History Past Medical History?: Yes - Past Social History Smoking Status: Former Smoker Alcohol: None Drugs: Denies - CARDIAC Hx Cardiac Disorders: No - PULMONARY Hx Respiratory Disorders: No - NEUROLOGICAL Hx Neurological Disorder: No - HEENT Hx HEENT Problems: No - ENDOCRINE/METABOLIC Hx Endocrine Disorders: No - HEMATOLOGICAL/ONCOLOGICAL Hx Blood Disorders: Yes Other/Comment: Hgb 4.6 - INTEGUMENTARY Hx Dermatological Problems: No - MUSCULOSKELETAL/RHEUMATOLOGICAL Hx Musculoskeletal Disorders: No - GASTROINTESTINAL Hx Gastrointestinal Disorders: Yes Other/Comment: (+) stool occult blood - GENITOURINARY/GYNECOLOGICAL Hx Genitourinary Disorders: No - PSYCHIATRIC Hx Substance Use: No - SURGICAL HISTORY Hx Surgeries: No - ANESTHESIA Hx Anesthesia: No Meds Allergies/Adverse Reactions: Allergies Allergy/AdvReac Type Severity Reaction Status Date / Time No Known Allergies Allergy Verified 09/28/18 11:16 - Medications Medications: Current Medications Albuterol/Ipratropium (Duoneb 3 Mg/0.5 Mg (3 Ml) Ud) 3 ml INH RQ6 PRN PRN Reason: Shortness of Breath Docusate Sodium (Colace) 100 mg PO BID [facility] Last Admin: 10/07/18 09:31 Dose: 100 mg Hydrocortisone (Anusol-Hc) 0 gm NC BID [facility] Last Admin: 10/07/18 09:33 Dose: 2.5 % Azithromycin 500 mg/ Sodium (Chloride) 250 mls @ 250 mls/hr IVPB DAILY [facility]; Protocol Last Admin: 10/07/18 10:35 Dose: 250 mls/hr Ceftriaxone Sodium 1 gm/ (Sodium Chloride) 100 mls @ 100 mls/hr IVPB Q12H [facility]; Protocol Last Admin: 10/07/18 00:11 Dose: 100 mls/hr Ondansetron HCl (Zofran Inj) 4 mg IVP DAILY@ONCE PRN PRN Reason: Nausea/Vomiting Pantoprazole Sodium (Protonix Inj) 40 mg IVP DAILY [facility] Last Admin: 10/07/18 09:31 Dose: 40 mg Saccharomyces Boulardii (Florastor) 250 mg PO BID [facility] Last Admin: 10/07/18 09:31 Dose: 250 mg Tamsulosin HCl (Flomax) 0.4 mg PO DAILY [facility] Last Admin: 10/07/18 09:31 Dose: 0.4 mg Physical Exam - Constitutional Appears: In Acute Distress, Chronically Ill - Head Exam Head Exam: ATRAUMATIC, NORMAL INSPECTION, NORMOCEPHALIC - Eye Exam Eye Exam: EOMI, Normal appearance, PERRL Pupil Exam: NORMAL ACCOMODATION, PERRL - ENT Exam ENT Exam: Mucous Membranes Moist, Normal Exam - Neck Exam Neck exam: Positive for: Normal Inspection - Respiratory Exam Respiratory Exam: Decreased Breath Sounds, Prolonged Expiratory Phase, Respiratory Distress - Cardiovascular Exam Cardiovascular Exam: Tachycardia, +S1, +S2 - GI/Abdominal Exam GI & Abdominal Exam: Hypoactive Bowel Sounds, Soft - Rectal Exam Rectal Exam: Deferred - Exam Additional comments: Traylor cath - Extremities Exam Extremities exam: Positive for: normal inspection - Back Exam Back exam: NORMAL INSPECTION - Neurological Exam Neurological exam: Alert, Oriented x3 - Psychiatric Exam Psychiatric exam: Normal Affect, Normal Mood - Skin Skin Exam: Dry, Intact, Pallor Results - Vital Signs Recent Vital Signs: Last Vital Signs Temp 98.7 F 10/07/18 12:50 Pulse 94 H 10/07/18 12:50 Resp 20 10/07/18 12:50 BP 142/70 10/07/18 12:50 Pulse Ox 98 10/07/18 12:50 - Labs Result Diagrams: 10/07/18 05:45 10/07/18 05:45 Labs: Laboratory Results - last 24 hr 10/07/18 10/07/18 05:45 05:45 WBC 2.8 L RBC 3.55 L Hgb 10.0 L Hct 30.6 L MCV 86.2 MCH 28.2 MCHC 32.7 L RDW 15.1 H Plt Count 12 L* D MPV 11.2 Neut % (Auto) 9.5 L Lymph % (Auto) 22.9 [place] % (Auto) 67.6 H Eos % (Auto) 0.0 Baso % (Auto) 0.0 Neut # (Auto) 0.3 L Lymph # (Auto) 0.6 L [place] # (Auto) 1.9 H Eos # (Auto) 0.0 Baso # (Auto) 0.0 Neutrophils % (Manual) 16 L Lymphocytes % (Manual) 29 Reactive Lymphs % 1 H Monocytes % (Manual) 54 H Nucleated RBC % 7 H Platelet Estimate Markedly decreased L Hypochromasia (manual) Slight Poikilocytosis (manual Slight Anisocytosis (manual) Slight Sodium 135 Potassium 3.9 Chloride 102 Carbon Dioxide 29 Anion Gap 7 L BUN 16 Creatinine 0.9 Est GFR ( Amer) > 60 Est GFR (Non-Af Amer) > 60 Random Glucose 97 Calcium 8.2 L Phosphorus 3.7 Magnesium 2.0 Total Bilirubin 0.5 AST 23 ALT 21 Alkaline Phosphatase 64 Total Protein 5.5 L Albumin 2.4 L Globulin 3.1 Albumin/Globulin Ratio 0.8 L Assessment & Plan - Assessment and Plan (Free Text) Assessment: Palliative consult Full Code, there is no Advance directive on chart, PPS 30% I reviewed Medical records, all diagnostic studies, examined and interviewed patient in the bed Patient is alert, oriented X3, with affect that is appropriate and speech clear. Patient was working with PT. Weak, unsteady gait, needed assistance with ambulation. Very skinny looking. The said he was always skinny but very strong, attending gym daily. Since few weeks ago she noticed him losing weight and looking weak. Breathing is diminished, uses Bipap at night. Abdomen flat, active bowel sounds. Ambulates with assistance. Post blood transfusion. Hb 10.0. Platelets 12.0 and WBC 2.8. Patient is about to starthis first dose of IV Chemo Tx. With patient and his at bed side I reviewed his clinical presentation and elicited his understanding. Patient is aware that he had some " blood and lungs" issues. I used word Cancer, describing his diagnosis and patient confirmed his understanding. He admits being in shock as everything happened so fast .Patent is happy he avoided chest tube and believes his regular gym work before, now helps him fight of disease. ROSA M discussed. Patient agreed. We discussed his expectations of care. Patient is willing to undergo any suggested Medical or surgical interventions to support his life. Patient understands he was about to start IV chemo. I offered more possible side effect of chemo Tx, such as nausea and advised him to report it to a nurse if occurs. Impression * Newly diagnosed AML * Weakness and weight loss * Patient adapts well to this serious diagnosis * Wishes Full Code and all necessary measures to support life Suggestion * AML management per Doctor Stout * Monitor for side effects of Chemo Tx * Assist OOB * ROSA M planing * FULL Code Palliative care will ontinue to fallow this patient and offer support Advance care planing 35 min
[2018-10-07] MEDS ORDERED: DiphenhydrAMINE 50 mg/ml Inj IVP ONE (14:30)
[2018-10-07] MEDS ORDERED: SODIUM CHLORIDE 0.9% IV ONE (15:00)
[2018-10-07] MEDS ORDERED: DECITABINE IV ONE (15:00)
--- NOTE | 2018-10-07 16:56 | RAD ---
Date of service: 10/07/2018 HISTORY: left pneumothorax COMPARISON: 10/05/2018 FINDINGS: LUNGS: Interval increased opacity low-density left mid to lower lung zone an interval layering left pleural effusion with or without concomitant minimal ectatic changes here can simulate this. A concomitant low-density coalescent patchy infiltrate is not excluded. Layering fluid is favored although this study is labeled semi-erect. Follow-up recommended. The right upper lobe traction bronchiectatic changes and fewer similar changes in the left are unchanged. The mid right lung zone sub cm nodular opacity is less pronounced. PLEURA: Left pleural effusion believes increased. The small prior left apical pneumothorax appears smaller in size currently. CARDIOVASCULAR: There is presence of aortic atherosclerotic calcification on x-ray. Normal cardiac size. Probable mild interval increased interstitial pulmonary edema OSSEOUS STRUCTURES: No interval change. VISUALIZED UPPER ABDOMEN: Normal. OTHER FINDINGS: None. IMPRESSION: Interval increasing left pleural effusion with inferred coalescent the areas of low-density atelectasis. Concomitant underlying low-density coalescent patchy infiltrates not excluded. Coalescent areas of low-density pulmonary edema also a consideration. Follow-up recommended. Left apical pneumothorax currently smaller. Other findings similar.
--- NOTE | 2018-10-07 17:54 | CP.PCM.PN ---
Subjective - Date & Time of Evaluation Date of Evaluation: 10/07/18 Time of Evaluation: 11:40 - Subjective Subjective: Patient seen and examined at bedside, lying down comfortably. Afebrile and in no acute distress. Denies SOB, chest pain, fever/chills, headaches Repeat CT Chest Pneumothorax improving Patient will have chemotherapy started per Heme-Onc Objective - Vital Signs/Intake and Output Vital Signs (last 24 hours): Temp Pulse Resp BP Pulse Ox 99.5 F 95 H 20 136/74 98 10/07/18 16:00 10/07/18 16:00 10/07/18 16:00 10/07/18 16:00 10/07/18 16:00 Intake and Output: 10/07/18 10/07/18 06:59 18:59 Intake Total 240 400 Output Total 1600 Balance 240 -1200 - Medications Medications: Current Medications Acetaminophen (Tylenol 325mg Tab) 650 mg PO ONCE ONE Stop: 10/08/18 12:01 Acetaminophen (Tylenol 325mg Tab) 650 mg PO ONCE ONE Stop: 10/09/18 12:01 Acetaminophen (Tylenol 325mg Tab) 650 mg PO ONCE ONE Stop: 10/10/18 12:01 Acetaminophen (Tylenol 325mg Tab) 650 mg PO ONCE ONE Stop: 10/11/18 12:01 Albuterol/Ipratropium (Duoneb 3 Mg/0.5 Mg (3 Ml) Ud) 3 ml INH RQ6 PRN PRN Reason: Shortness of Breath Diphenhydramine HCl (Benadryl) 25 mg IVP ONCE ONE Stop: 10/08/18 12:01 Diphenhydramine HCl (Benadryl) 25 mg IVP ONCE ONE Stop: 10/09/18 12:01 Diphenhydramine HCl (Benadryl) 25 mg IVP ONCE ONE Stop: 10/10/18 12:01 Diphenhydramine HCl (Benadryl) 25 mg IVP ONCE ONE Stop: 10/11/18 12:01 Docusate Sodium (Colace) 100 mg PO BID [facility] Last Admin: 10/07/18 17:27 Dose: 100 mg Famotidine (Pepcid) 20 mg IVP ONCE ONE Stop: 10/08/18 12:01 Famotidine (Pepcid) 20 mg IVP ONCE ONE Stop: 10/09/18 12:01 Famotidine (Pepcid) 20 mg IVP ONCE ONE Stop: 10/10/18 12:01 Famotidine (Pepcid) 20 mg IVP ONCE ONE Stop: 10/11/18 14:01 Hydrocortisone (Anusol-Hc) 0 gm [place] BID [facility] Last Admin: 10/07/18 09:33 Dose: 2.5 % Azithromycin 500 mg/ Sodium (Chloride) 250 mls @ 250 mls/hr IVPB DAILY [facility]; Protocol Last Admin: 10/07/18 10:35 Dose: 250 mls/hr Ceftriaxone Sodium 1 gm/ (Sodium Chloride) 100 mls @ 100 mls/hr IVPB Q12H [facility]; Protocol Last Admin: 10/07/18 13:00 Dose: 100 mls/hr Decitabine 30 mg/ Sodium (Chloride) 256 mls @ 256 mls/hr IV .Q1H ONE Stop: 10/08/18 13:29 Decitabine 30 mg/ Sodium (Chloride) 256 mls @ 256 mls/hr IV .Q1H ONE Stop: 10/09/18 13:29 Decitabine 30 mg/ Sodium (Chloride) 256 mls @ 256 mls/hr IV .Q1H ONE Stop: 10/10/18 13:29 Decitabine 30 mg/ Sodium (Chloride) 256 mls @ 256 mls/hr IV .Q1H ONE Stop: 10/11/18 13:29 Ondansetron HCl (Zofran Inj) 4 mg IVP DAILY@ONCE PRN PRN Reason: Nausea/Vomiting Pantoprazole Sodium (Protonix Inj) 40 mg IVP DAILY [facility] Last Admin: 10/07/18 09:31 Dose: 40 mg Saccharomyces Boulardii (Florastor) 250 mg PO BID [facility] Last Admin: 10/07/18 17:27 Dose: 250 mg Tamsulosin HCl (Flomax) 0.4 mg PO DAILY [facility] Last Admin: 10/07/18 09:31 Dose: 0.4 mg - Labs Labs: 10/07/18 05:45 10/07/18 05:45 PT 12.9 SECONDS (9.7-12.2) H 09/28/18 11:39 INR 1.2 09/28/18 11:39 APTT 25 SECONDS (21-34) 09/28/18 11:39 Assessment and Plan (1) Lung mass Status: Acute (2) Pancytopenia Status: Acute (3) Pneumonia Status: Acute
--- NOTE | 2018-10-07 21:18 | CP.PCM.PN ---
Subjective - Date & Time of Evaluation Date of Evaluation: 10/06/18 Time of Evaluation: 13:00 - Subjective Subjective: No complaints. Objective - Vital Signs/Intake and Output Vital Signs (last 24 hours): Temp Pulse Resp BP Pulse Ox 99.5 F 95 H 20 136/74 98 10/07/18 16:00 10/07/18 16:00 10/07/18 16:00 10/07/18 16:00 10/07/18 16:00 Intake and Output: 10/07/18 10/08/18 18:59 06:59 Intake Total 400 Output Total 1600 Balance -1200 - Medications Medications: Current Medications Acetaminophen (Tylenol 325mg Tab) 650 mg PO ONCE ONE Stop: 10/08/18 12:01 Acetaminophen (Tylenol 325mg Tab) 650 mg PO ONCE ONE Stop: 10/09/18 12:01 Acetaminophen (Tylenol 325mg Tab) 650 mg PO ONCE ONE Stop: 10/10/18 12:01 Acetaminophen (Tylenol 325mg Tab) 650 mg PO ONCE ONE Stop: 10/11/18 12:01 Albuterol/Ipratropium (Duoneb 3 Mg/0.5 Mg (3 Ml) Ud) 3 ml INH RQ6 PRN PRN Reason: Shortness of Breath Diphenhydramine HCl (Benadryl) 25 mg IVP ONCE ONE Stop: 10/08/18 12:01 Diphenhydramine HCl (Benadryl) 25 mg IVP ONCE ONE Stop: 10/09/18 12:01 Diphenhydramine HCl (Benadryl) 25 mg IVP ONCE ONE Stop: 10/10/18 12:01 Diphenhydramine HCl (Benadryl) 25 mg IVP ONCE ONE Stop: 10/11/18 12:01 Docusate Sodium (Colace) 100 mg PO BID [facility] Last Admin: 10/07/18 17:27 Dose: 100 mg Famotidine (Pepcid) 20 mg IVP ONCE ONE Stop: 10/08/18 12:01 Famotidine (Pepcid) 20 mg IVP ONCE ONE Stop: 10/09/18 12:01 Famotidine (Pepcid) 20 mg IVP ONCE ONE Stop: 10/10/18 12:01 Famotidine (Pepcid) 20 mg IVP ONCE ONE Stop: 10/11/18 14:01 Hydrocortisone (Anusol-Hc) 0 gm [place] BID [facility] Last Admin: 10/07/18 09:33 Dose: 2.5 % Azithromycin 500 mg/ Sodium (Chloride) 250 mls @ 250 mls/hr IVPB DAILY [facility]; P rotocol Last Admin: 10/07/18 10:35 Dose: 250 mls/hr Ceftriaxone Sodium 1 gm/ (Sodium Chloride) 100 mls @ 100 mls/hr IVPB Q12H [facility]; Protocol Last Admin: 10/07/18 13:00 Dose: 100 mls/hr Decitabine 30 mg/ Sodium (Chloride) 256 mls @ 256 mls/hr IV .Q1H ONE Stop: 10/08/18 13:29 Decitabine 30 mg/ Sodium (Chloride) 256 mls @ 256 mls/hr IV .Q1H ONE Stop: 10/09/18 13:29 Decitabine 30 mg/ Sodium (Chloride) 256 mls @ 256 mls/hr IV .Q1H ONE Stop: 10/10/18 13:29 Decitabine 30 mg/ Sodium (Chloride) 256 mls @ 256 mls/hr IV .Q1H ONE Stop: 10/11/18 13:29 Ondansetron HCl (Zofran Inj) 4 mg IVP DAILY@ONCE PRN PRN Reason: Nausea/Vomiting Pantoprazole Sodium (Protonix Inj) 40 mg IVP DAILY [facility] Last Admin: 10/07/18 09:31 Dose: 40 mg Saccharomyces Boulardii (Florastor) 250 mg PO BID [facility] Last Admin: 10/07/18 17:27 Dose: 250 mg Tamsulosin HCl (Flomax) 0.4 mg PO DAILY [facility] Last Admin: 10/07/18 09:31 Dose: 0.4 mg - Labs Labs: 10/07/18 05:45 10/07/18 05:45 PT 12.9 SECONDS (9.7-12.2) H 09/28/18 11:39 INR 1.2 09/28/18 11:39 APTT 25 SECONDS (21-34) 09/28/18 11:39 - Head Exam Head Exam: ATRAUMATIC - Eye Exam Eye Exam: Normal appearance - ENT Exam ENT Exam: Mucous Membranes Dry - Respiratory Exam Respiratory Exam: NORMAL BREATHING PATTERN - Cardiovascular Exam Cardiovascular Exam: +S1, +S2 - GI/Abdominal Exam GI & Abdominal Exam: Normal Bowel Sounds Assessment and Plan (1) AML (acute myeloblastic leukemia) Assessment & Plan: decitabine 20mg/m2 IV daily x 5 days not a candidate for 7+3 awaiting insurance/hospital administration approval for treatment Status: Acute (2) Pancytopenia Assessment & Plan: secondary to AML transfusion support goal plt > 10,000 and hgb > 7 Status: Acute (3) Lung mass Assessment & Plan: no current intervention Status: Acute
--- NOTE | 2018-10-07 21:20 | CP.PCM.PN ---
Subjective - Date & Time of Evaluation Date of Evaluation: 10/07/18 Time of Evaluation: 17:00 - Subjective Subjective: Tolerated hypomethylating agent infusion well. Objective - Vital Signs/Intake and Output Vital Signs (last 24 hours): Temp Pulse Resp BP Pulse Ox 99.5 F 95 H 20 136/74 98 10/07/18 16:00 10/07/18 16:00 10/07/18 16:00 10/07/18 16:00 10/07/18 16:00 Intake and Output: 10/07/18 10/08/18 18:59 06:59 Intake Total 400 Output Total 1600 Balance -1200 - Medications Medications: Current Medications Acetaminophen (Tylenol 325mg Tab) 650 mg PO ONCE ONE Stop: 10/08/18 12:01 Acetaminophen (Tylenol 325mg Tab) 650 mg PO ONCE ONE Stop: 10/09/18 12:01 Acetaminophen (Tylenol 325mg Tab) 650 mg PO ONCE ONE Stop: 10/10/18 12:01 Acetaminophen (Tylenol 325mg Tab) 650 mg PO ONCE ONE Stop: 10/11/18 12:01 Albuterol/Ipratropium (Duoneb 3 Mg/0.5 Mg (3 Ml) Ud) 3 ml INH RQ6 PRN PRN Reason: Shortness of Breath Diphenhydramine HCl (Benadryl) 25 mg IVP ONCE ONE Stop: 10/08/18 12:01 Diphenhydramine HCl (Benadryl) 25 mg IVP ONCE ONE Stop: 10/09/18 12:01 Diphenhydramine HCl (Benadryl) 25 mg IVP ONCE ONE Stop: 10/10/18 12:01 Diphenhydramine HCl (Benadryl) 25 mg IVP ONCE ONE Stop: 10/11/18 12:01 Docusate Sodium (Colace) 100 mg PO BID [facility] Last Admin: 10/07/18 17:27 Dose: 100 mg Famotidine (Pepcid) 20 mg IVP ONCE ONE Stop: 10/08/18 12:01 Famotidine (Pepcid) 20 mg IVP ONCE ONE Stop: 10/09/18 12:01 Famotidine (Pepcid) 20 mg IVP ONCE ONE Stop: 10/10/18 12:01 Famotidine (Pepcid) 20 mg IVP ONCE ONE Stop: 10/11/18 14:01 Hydrocortisone (Anusol-Hc) 0 gm [place] BID [facility] Last Admin: 10/07/18 09:33 Dose: 2.5 % Azithromycin 500 mg/ Sodium (Chloride) 250 mls @ 250 mls/hr IVPB DAILY [facility]; Protocol Last Admin: 10/07/18 10:35 Dose: 250 mls/hr Ceftriaxone Sodium 1 gm/ (Sodium Chloride) 100 mls @ 100 mls/hr IVPB Q12H [facility]; Protocol Last Admin: 10/07/18 13:00 Dose: 100 mls/hr Decitabine 30 mg/ Sodium (Chloride) 256 mls @ 256 mls/hr IV .Q1H ONE Stop: 10/08/18 13:29 Decitabine 30 mg/ Sodium (Chloride) 256 mls @ 256 mls/hr IV .Q1H ONE Stop: 10/09/18 13:29 Decitabine 30 mg/ Sodium (Chloride) 256 mls @ 256 mls/hr IV .Q1H ONE Stop: 10/10/18 13:29 Decitabine 30 mg/ Sodium (Chloride) 256 mls @ 256 mls/hr IV .Q1H ONE Stop: 10/11/18 13:29 Ondansetron HCl (Zofran Inj) 4 mg IVP DAILY@ONCE PRN PRN Reason: Nausea/Vomiting Pantoprazole Sodium (Protonix Inj) 40 mg IVP DAILY [facility] Last Admin: 10/07/18 09:31 Dose: 40 mg Saccharomyces Boulardii (Florastor) 250 mg PO BID [facility] Last Admin: 10/07/18 17:27 Dose: 250 mg Tamsulosin HCl (Flomax) 0.4 mg PO DAILY [facility] Last Admin: 10/07/18 09:31 Dose: 0.4 mg - Labs Labs: 10/07/18 05:45 10/07/18 05:45 PT 12.9 SECONDS (9.7-12.2) H 09/28/18 11:39 INR 1.2 09/28/18 11:39 APTT 25 SECONDS (21-34) 09/28/18 11:39 - Head Exam Head Exam: ATRAUMATIC - Eye Exam Eye Exam: Normal appearance - ENT Exam ENT Exam: Mucous Membranes Dry - Respiratory Exam Respiratory Exam: NORMAL BREATHING PATTERN - Cardiovascular Exam Cardiovascular Exam: +S1, +S2 - GI/Abdominal Exam GI & Abdominal Exam: Normal Bowel Sounds Assessment and Plan (1) AML (acute myeloblastic leukemia) Assessment & Plan: cycle 1 day 1 decitabine daily CBC transfusion support PRN Status: Acute (2) Pancytopenia Assessment & Plan: secondary to AML transfusion support PRN Status: Acute (3) Lung mass Assessment & Plan: no current intervention Status: Acute
[2018-10-08 08:51] LABS: EOS % 0.4 % (0.0-4.0); HEMOGLOBIN 9.8 g/dL (12.0-18.0); LYMPH # 0.6 K/uL (1.0-4.3); LYMPH % 23.1 % (20.0-40.0); MEAN CORPUSCULAR HEMOGLOBIN 28.2 pg (27.0-31.0); MEAN CORPUSCULAR HGB CONC 32.8 g/dL (33.0-37.0); MONO # 1.7 K/uL (0.0-0.8); MONO % 66.2 % (0.0-10.0); NEUT # 0.3 K/uL (1.8-7.0); NEUT % 10.3 % (50.0-75.0); NRBC % 3.7 % (0.0-2.0); RBC 3.49 Mil/uL (4.40-5.90); RED CELL DISTRIBUTION WIDTH 14.8 % (11.5-14.5); WHITE BLOOD COUNT 2.6 K/uL (4.8-10.8)
[2018-10-08 08:52] LABS: ALB/GLOB RATIO 0.8 (1.0-2.1); ALBUMIN 2.5 g/dL (3.5-5.0); ALT/SGPT 19 U/L (21-72); AST/SGOT 20 U/L (17-59); BLOOD UREA NITROGEN 16 mg/dL (9-20); CALCIUM 8.3 mg/dl (8.6-10.4); GFR NON-AFRICAN AMERICAN > 60
[2018-10-08 09:02] LABS: PLATELET COUNT 10 K/uL (130-400)
[2018-10-08 09:36] LABS: BANDS 1 % (0-2); NEUTROPHIL 11 % (50-75); NUCLEATED RED BLOOD CELL 4 % (0-0); TOTAL CELLS COUNTED 100
[2018-10-08 09:38] LABS: LYMPHOCYTE 31 % (20-40); MONOCYTE 57 % (0-10); PLATELET ESTIMATE MARKEDLY DECREASED (NORMAL)
[2018-10-08 09:39] LABS: ANISOCYTOSIS SLIGHT; HYPOCHROMIC SLIGHT; OVALOCYTES SLIGHT; POIKILOCYTOSIS SLIGHT; TEARDROP CELLS SLIGHT
[2018-10-08 09:40] LABS: GIANT PLATELETS PRESENT
[2018-10-08] MEDS: Saccharomyces Boulardi 250 mg Cap PO SCH ×2 (09:42→18:24)
[2018-10-08] MEDS: Azithromycin 500 MG in Sodium Chloride 0.9% 250 ML IVPB SCH (09:43)
[2018-10-08] MEDS: Hydrocortisone 2.5% Rectal Cream(30 gm) PR SCH ×2 (09:44→21:58)
--- NOTE | 2018-10-08 12:24 | CP.PCM.PN ---
Subjective - Date & Time of Evaluation Date of Evaluation: 10/08/18 Time of Evaluation: 08:00 - Subjective Subjective: Patient seen and examined at bedside, lying down comfortably. Afebrile and in no acute distress. Denies SOB, chest pain, fever/chills, headaches Repeat CT Chest Patient had chemotherapy started yesterday 10/07/18 and tolerated well as per Heme-Onc Dr. Bobby CXR (10/07/18): Left apical pneumothorax currently smaller Palliative care saw patient yesterday (10/07/18) and will help with ROSA M planning and continue to follow the patient and offer support Objective - Vital Signs/Intake and Output Vital Signs (last 24 hours): Temp Pulse Resp BP Pulse Ox 99.1 F 105 H 20 153/78 H 98 10/08/18 08:34 10/08/18 08:34 10/08/18 08:34 10/08/18 08:34 10/08/18 08:34 Intake and Output: 10/08/18 10/08/18 06:59 18:59 Intake Total 1256 Output Total 2200 Balance -944 - Medications Medications: Current Medications Acetaminophen (Tylenol 325mg Tab) 650 mg PO ONCE ONE Stop: 10/09/18 12:01 Acetaminophen (Tylenol 325mg Tab) 650 mg PO ONCE ONE Stop: 10/10/18 12:01 Acetaminophen (Tylenol 325mg Tab) 650 mg PO ONCE ONE Stop: 10/11/18 12:01 Albuterol/Ipratropium (Duoneb 3 Mg/0.5 Mg (3 Ml) Ud) 3 ml INH RQ6 PRN PRN Reason: Shortness of Breath Diphenhydramine HCl (Benadryl) 25 mg IVP ONCE ONE Stop: 10/08/18 12:31 Diphenhydramine HCl (Benadryl) 25 mg IVP ONCE ONE Stop: 10/09/18 12:01 Diphenhydramine HCl (Benadryl) 25 mg IVP ONCE ONE Stop: 10/10/18 12:01 Diphenhydramine HCl (Benadryl) 25 mg IVP ONCE ONE Stop: 10/11/18 12:01 Docusate Sodium (Colace) 100 mg PO BID [facility] Last Admin: 10/08/18 09:42 Dose: 100 mg Famotidine (Pepcid) 20 mg IVP ONCE ONE Stop: 10/08/18 12:01 Famotidine (Pepcid) 20 mg IVP ONCE ONE Stop: 10/09/18 12:01 Famotidine (Pepcid) 20 mg IVP ONCE ONE Stop: 10/10/18 12:01 Famotidine (Pepcid) 20 mg IVP ONCE ONE Stop: 10/11/18 14:01 Hydrocortisone (Anusol-Hc) 0 gm [place] BID [facility] Last Admin: 10/08/18 09:44 Dose: 2.5 % Azithromycin 500 mg/ Sodium (Chloride) 250 mls @ 250 mls/hr IVPB DAILY [facility]; Protocol Last Admin: 10/08/18 09:43 Dose: 250 mls/hr Ceftriaxone Sodium 1 gm/ (Sodium Chloride) 100 mls @ 100 mls/hr IVPB Q12H [facility]; Protocol Last Admin: 10/08/18 11:39 Dose: 100 mls/hr Decitabine 30 mg/ Sodium (Chloride) 256 mls @ 256 mls/hr IV .Q1H ONE Stop: 10/08/18 13:29 Decitabine 30 mg/ Sodium (Chloride) 256 mls @ 256 mls/hr IV .Q1H ONE Stop: 10/09/18 13:29 Decitabine 30 mg/ Sodium (Chloride) 256 mls @ 256 mls/hr IV .Q1H ONE Stop: 10/10/18 13:29 Decitabine 30 mg/ Sodium (Chloride) 256 mls @ 256 mls/hr IV .Q1H ONE Stop: 10/11/18 13:29 Ondansetron HCl (Zofran Inj) 4 mg IVP DAILY@ONCE PRN PRN Reason: Nausea/Vomiting Pantoprazole Sodium (Protonix Inj) 40 mg IVP DAILY [facility] Last Admin: 10/08/18 09:42 Dose: 40 mg Saccharomyces Boulardii (Florastor) 250 mg PO BID [facility] Last Admin: 10/08/18 09:42 Dose: 250 mg Tamsulosin HCl (Flomax) 0.4 mg PO DAILY [facility] Last Admin: 10/08/18 09:42 Dose: 0.4 mg - Labs Labs: 10/08/18 08:29 10/08/18 08:29 PT 12.9 SECONDS (9.7-12.2) H 09/28/18 11:39 INR 1.2 09/28/18 11:39 APTT 25 SECONDS (21-34) 09/28/18 11:39 Assessment and Plan (1) Lung mass Status: Acute (2) Pancytopenia Status: Acute (3) Pneumonia Status: Acute
[2018-10-08] MEDS ORDERED: SODIUM CHLORIDE 0.9% IV ONE (12:30)
[2018-10-08] MEDS ORDERED: DECITABINE IV ONE (12:30)
[2018-10-08] MEDS ORDERED: DiphenhydrAMINE 50 mg/ml Inj IVP ONE (12:30)
--- NOTE | 2018-10-08 21:15 | CP.PCM.PN ---
<Néstor Soares - Last Filed: 10/08/18 22:01> Subjective - Date & Time of Evaluation Date of Evaluation: 10/08/18 Time of Evaluation: 11:50 - Subjective Subjective: PGY1 Medicine progress note for Dr. Montoya Pt seen and examined at bedside. Pt is resting comfortably, he is in good spirit. Pt has no complaints at this time. and two daughters are at bedside. Denies fever, chills, hematochezia, chest pain, sob, abdominal pain, n/v/d, dizziness, lightheadedness, hematuria, hemoptysis, leg pain or swelling, or any complaints of bleeding. 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 Objective - Vital Signs/Intake and Output Vital Signs (last 24 hours): Temp Pulse Resp BP Pulse Ox 98.5 F 87 20 135/70 99 10/08/18 19:06 10/08/18 19:06 10/08/18 19:06 10/08/18 19:06 10/08/18 15:00 Intake and Output: 10/08/18 10/09/18 18:59 06:59 Intake Total 1086 350 Output Total 700 Balance 386 350 - Medications Medications: Current Medications Acetaminophen (Tylenol 325mg Tab) 650 mg PO ONCE ONE Stop: 10/09/18 12:01 Acetaminophen (Tylenol 325mg Tab) 650 mg PO ONCE ONE Stop: 10/10/18 12:01 Acetaminophen (Tylenol 325mg Tab) 650 mg PO ONCE ONE Stop: 10/11/18 12:01 Diphenhydramine HCl (Benadryl) 25 mg IVP ONCE ONE Stop: 10/09/18 12:01 Diphenhydramine HCl (Benadryl) 25 mg IVP ONCE ONE Stop: 10/10/18 12:01 Diphenhydramine HCl (Benadryl) 25 mg IVP ONCE ONE Stop: 10/11/18 12:01 Docusate Sodium (Colace) 100 mg PO BID [facility] Last Admin: 10/08/18 18:24 Dose: Not Given Famotidine (Pepcid) 20 mg IVP ONCE ONE Stop: 10/09/18 12:01 Famotidine (Pepcid) 20 mg IVP ONCE ONE Stop: 10/10/18 12:01 Famotidine (Pepcid) 20 mg IVP ONCE ONE Stop: 10/11/18 14:01 Hydrocortisone (Anusol-Hc) 0 gm [place] BID [facility] Last Admin: 10/08/18 09:44 Dose: 2.5 % Decitabine 30 mg/ Sodium (Chloride) 256 mls @ 256 mls/hr IV .Q1H ONE Stop: 10/09/18 13:29 Decitabine 30 mg/ Sodium (Chloride) 256 mls @ 256 mls/hr IV .Q1H ONE Stop: 10/10/18 13:29 Decitabine 30 mg/ Sodium (Chloride) 256 mls @ 256 mls/hr IV .Q1H ONE Stop: 10/11/18 13:29 Ondansetron HCl (Zofran Inj) 4 mg IVP DAILY@ONCE PRN PRN Reason: Nausea/Vomiting Pantoprazole Sodium (Protonix Inj) 40 mg IVP DAILY [facility] Last Admin: 10/08/18 09:42 Dose: 40 mg Saccharomyces Boulardii (Florastor) 250 mg PO BID [facility] Last Admin: 10/08/18 18:24 Dose: 250 mg Tamsulosin HCl (Flomax) 0.4 mg PO DAILY [facility] Last Admin: 10/08/18 09:42 Dose: 0.4 mg - Labs Labs: 10/08/18 08:29 10/08/18 08:29 PT 12.9 SECONDS (9.7-12.2) H 09/28/18 11:39 INR 1.2 09/28/18 11:39 APTT 25 SECONDS (21-34) 09/28/18 11:39 - Constitutional Appears: Non-toxic, No Acute Distress, Cachectic, Chronically Ill - Head Exam Head Exam: ATRAUMATIC, NORMAL INSPECTION - Eye Exam Eye Exam: EOMI - ENT Exam ENT Exam: Mucous Membranes Moist - Respiratory Exam Respiratory Exam: NORMAL BREATHING PATTERN. absent: Accessory Muscle Use, Rales, Rhonchi, Wheezes, Respiratory Distress, Stridor - Cardiovascular Exam Cardiovascular Exam: REGULAR RHYTHM, +S1, +S2 - GI/Abdominal Exam GI & Abdominal Exam: Soft, Normal Bowel Sounds. absent: Distended, Firm, Guarding, Rigid, Tenderness - Extremities Exam Extremities Exam: Normal Capillary Refill. absent: Calf Tenderness, Pedal Edema - Back Exam Back Exam: NORMAL INSPECTION - Neurological Exam Neurological Exam: Alert, Awake - Psychiatric Exam Psychiatric exam: Normal Affect, Normal Mood - Skin Skin Exam: Dry, Intact, Normal Color, Warm Additional comments: (+) increased scattered ecchymosis on upper extremities, nontender Assessment and Plan - Assessment and Plan (Free Text) Assessment: 77 y M w/ no PMHx: presents to ED for weakness, in ED found to be pancytopenic. 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 Bobby - Heme/Onc, Dr. bobby, consulted Per flow cytometery on bone marrow biopsy specimen (10/04); appears non M3 Awaiting further testing Not a candidate for induction chemotherapy given age and poor performance status Will attempt treatment with decitabine as inpatient if administration consents Transfusion support, neutropenic precaution Discussed results with the patient and his family - WBC 2.8, Hgb 4.6, Plt 13 on admission Peripheral smear shows moderate teardrop cells possible myelofibrosis - 10/01 transfused one unit of PLTs - 10/05 transfused two units of PLTs - 10/08 transfused one unit of PLTs - H/H is stable, but with pancytopenia Goal plt > 10,000 and hgb > [address] Bobby (10/06) - HIV is negative - Hep panel is normal - Palliative care nurseCailin, consulted for discussions of goals of care Left pneumothorax, resolving - Repeat chest CT (10/06): Diminished left pneumothorax with very mild residual noted. No right PTX. Stable mild right pleural effusion. Slightly increased mod. left pleural effusion evident. Compression atelactasis bilateral lobes. Mild COPD, with stable right apical partially calcified fibrotic changes evident once again. (see full report) - CT chest (10/04): Interval appearance of approximately 35 percent left-sided pneumothorax since the previous exam. - IR consulted, Dr. Garrison No intervention planned at this time D/T improvement and patient stability Medical management per primary - CT surgery, Dr. Murguia, has been consulted Pneumothorax resolving. Currently, risks exceed benefits of chest tube placement. No surgical intervention at this time. - currently hemodynamically stable, keep SpO2>92%. Lung mass, dry cough and night sweats, r/o active TB - airborne precautions discontinued - Sputum culture: Negative X 2 - Quantiferon test: negative - CXR as above - Chest CT as below - discontinue Rocephin and Azithromycin - Pulmonology, Dr. Thurston, consulted, recs appreciated - Blood cultures x2 negative for 5 days COPD, secondary to long history of smoking - CT: Emphysematous changes. Biapical pleural thickening. Bilateral upper lobe bulla. Abnormal right upper lobe spiculated/irregular opacities possibly malignant neoplasm or consolidation such as pneumonia. Calcifications are evident in this region, as are ground-glass opacities and bronchiectasis. Evidence of chronic interstitial fibrosis. Small bilateral pleural effusions and dependent atelectasis. No pneumothorax. Nodular opacities measuring approximately 6 mm in the left upper lobe (series 4, image 34) and 3 mm in the lingula (64). More localized ground-glass opacities noted in the left lower lobe (image 75). Limited visualized portions of the upper abdomen: Bilateral adrenal gland hypertrophy. Small hiatal hernia/distal esophageal wall thickening. No large central or segmental pulmonary embolus identified. Correlate with clinical status. Nodular opacities measuring approximately 6 mm in the left upper lobe and 3 mm in the lingula. More localized ground-glass rounded opacity noted in the left lower lobe. Recommend further evaluation with biopsy, PET- CT, or follow-up CT at 3 months, and 9 months, and 24 months. - CXR: Right upper lobe traction bronchiectasis with the probable granulomatous disease. Concomitant right pleural parenchymal pathology here suggested- infiltrate, mass, scar or combination of the above are considerations. - duonebs Q6H prn - Pulmonology, Dr. Thurston, on board Systolic and diastolic heart failure - Echo (09/28) shows LVEF of 36%, diastolic dysfunction. Trace MR. Mild TR. Small pericardial effusion. - continue to monitor Positive FOBT - Hgb is stable - protonox 40mg PO daily - GI Dr. Cox recs: likely aplastic, no endoscopy at this time, correct thrombocytopenia Ventral hernia - Surgery consulted, Dr. Porter Diarrhea, nonbloody - Likely secondary to antibiotics - C. diff: negative - Florastor BID BPH - hx of urinary retention during hospital stay, requiring wolff catheter inserti on - Tamsulosin 0.4 mg PO daily - Urology, Dr. Norma Mallory is following - PSA is wnl, urine cx is negative for growth LBBB - AEKG reveals LBBB, unsure if new onset - remains asymptomatic - will monitor Prophylaxis - VTE ppx CI due to thrombocytopenia and anemia - GI: protonix 40 mg IVP - Regular diet Dispo: Newly diagnosed AML. Pt wishes Full Code and all necessary measures to support life. AML management per Doctor Bobby. Monitor for side effects of AML treatment, manage chronic medical conditions. Encourage OOB. ROSA M planning as per SW/CM. Patient is full code. Case discussed with Dr. Montoya. All medical management as per Dr. Lindsay Soares PGY-1 <Andrzej Montoya Jr. - Last Filed: 10/10/18 15:07> Objective - Vital Signs/Intake and Output Vital Signs (last 24 hours): Temp Pulse Resp BP Pulse Ox 99.4 F 100 H 20 117/62 99 10/10/18 08:24 10/10/18 08:24 10/10/18 08:24 10/10/18 08:24 10/10/18 08:24 Intake and Output: 10/10/18 10/10/18 06:59 18:59 Intake Total 630 Output Total 2000 Balance -1370 - Medications Medications: Current Medications Acetaminophen (Tylenol 325mg Tab) 650 mg PO ONCE ONE Stop: 10/11/18 12:01 Diphenhydramine HCl (Benadryl) 25 mg IVP ONCE ONE Stop: 10/11/18 12:01 Diphenhydramine HCl (Benadryl) 25 mg IVP ONCE ONE Stop: 10/10/18 13:16 Docusate Sodium (Colace) 100 mg PO BID [facility] Last Admin: 10/10/18 10:37 Dose: Not Given Famotidine (Pepcid) 20 mg IVP ONCE ONE Stop: 10/11/18 14:01 Hydrocortisone (Anusol-Hc) 0 gm [place] BID [facility] Last Admin: 10/10/18 10:38 Dose: 2.5 % Decitabine 30 mg/ Sodium (Chloride) 256 mls @ 256 mls/hr IV .Q1H ONE Stop: 10/11/18 13:29 Ondansetron HCl (Zofran Inj) 4 mg IVP DAILY@ONCE PRN PRN Reason: Nausea/Vomiting Pantoprazole Sodium (Protonix Inj) 40 mg IVP DAILY [facility] Last Admin: 10/10/18 10:36 Dose: 40 mg Saccharomyces Boulardii (Florastor) 250 mg PO BID [facility] Last Admin: 10/10/18 10:37 Dose: 250 mg Tamsulosin HCl (Flomax) 0.4 mg PO BID [facility] - Labs Labs: 10/10/18 08:04 10/10/18 08:04 PT 12.9 SECONDS (9.7-12.2) H 09/28/18 11:39 INR 1.2 09/28/18 11:39 APTT 25 SECONDS (21-34) 09/28/18 11:39 Attending/Attestation - Attestation I have personally seen and examined this patient.: Yes I have fully participated in the care of the patient.: Yes I have reviewed all pertinent clinical information, including history, physical exam and plan: Yes Notes (Text): 10/10/18 15:07 Reviewed resident note. Agree with findings and plan of care.
--- NOTE | 2018-10-09 00:58 | CON ---
DATE: 10/08/2018 UROLOGY CONSULTATION REQUESTED BY: Andrzej Montoya MD UROLOGY CONSULTATION IS FILLED BY: Kristin Mallory MD REASON FOR CONSULTATION: Urinary retention. HISTORY OF PRESENT ILLNESS: Mr. Zhang is a 77-year-old male, admitted with weakness. The patient was found to have severe anemia. He was admitted for evaluation and therapy. The patient reports no previous history of difficulty voiding. No hematuria, no dysuria. The patient had nocturia x2. He previously had [id number] urinary stream. During this admission, the patient was found to have pancytopenia. He was found to have leukemia. The patient also has history of cigarette smoking, which he stopped 10 years ago. The patient lives with his . The patient was found to have white blood count of 2,800, hematocrit of 14, and a platelet count of 13,000. On admission, BUN 26 and creatinine 1.2. The patient was also found to have a lung mass on CT scan. The patient received blood transfusion. The patient reports that he received the diuretic. Presumably this was for fluid overload. He reports, thereafter, he was unable to urinate. Traylor catheter was inserted. There was no history of previous urolithiasis. The patient previously had urinary frequency, although not retention. Traylor catheter was inserted earlier, and the patient had residual 500 mL. Mr. Zhang is now comfortable. He is in the ICU . PHYSICAL EXAMINATION: ABDOMEN: Soft, nontender, and nondistended. No mass or organomegaly. BACK: No CVA tenderness. GENITOURINARY: Genitalia without inflammation. The urine is clear via the Traylor catheter. RECTAL: Normal sphincter tone. Prostate is enlarged. Prostate is approximately 40 g in size, without fixation, induration, or nodularity. MEDICATIONS: The patient's medications have included albuterol/ipratropium inhaler. The patient has been treated with azithromycin and ceftriaxone. The patient also has been treated with tamsulosin. IMPRESSION: Urinary retention. Benign prostatic hypertrophy. The etiology of urinary retention maybe due to bladder outlet obstruction and/or detrusor muscle hypofunction. Contributing factors include hospitalization and patient's bedrest. Certainly, other significant medical problems include the diagnoses on this admission including lung mass and leukemia. RECOMMENDATIONS AND PLAN: Traylor catheter in place. I recommend tamsulosin 0.4 mg, was increased to twice a day. Serum PSA, urine culture, urinalysis. When the patient is further improved, and when he is out of the ICU and when he is out of bed, I would also recommend trial of voiding. If patient is able to void, we will simply continue with his medication. If the patient is unable to void, he would require further workup including possible cystogram, cystometrogram, and cystoscopy. Further therapy to follow according to the patient's clinical course as well as results of above. Chemotherapy to follow as per histologic technician/oncologist. Thank you for recommending the patient for urology consultation. Ashton MD [place] cc: Andrzej Montoya MD
[2018-10-09 07:38] LABS: EOS % 0.1 % (0.0-4.0); HEMOGLOBIN 10.7 g/dL (12.0-18.0); LYMPH # 0.7 K/uL (1.0-4.3); LYMPH % 28.4 % (20.0-40.0); MEAN CELL VOLUME 87.2 fL (80.0-94.0); MEAN CORPUSCULAR HEMOGLOBIN 28.1 pg (27.0-31.0); MEAN CORPUSCULAR HGB CONC 32.2 g/dL (33.0-37.0); MEAN PLATELET VOLUME 10.1 fL (7.2-11.7); MONO # 1.5 K/uL (0.0-0.8); MONO % 60.9 % (0.0-10.0); NEUT # 0.3 K/uL (1.8-7.0); NEUT % 10.6 % (50.0-75.0); NRBC % 4.5 % (0.0-2.0); RBC 3.83 Mil/uL (4.40-5.90); WHITE BLOOD COUNT 2.4 K/uL (4.8-10.8)
[2018-10-09 07:42] LABS: PLATELET COUNT 25 K/uL (130-400)
[2018-10-09 08:10] LABS: ALB/GLOB RATIO 0.8 (1.0-2.1); ALBUMIN 2.9 g/dL (3.5-5.0); ALT/SGPT 24 U/L (21-72); AST/SGOT 25 U/L (17-59); BLOOD UREA NITROGEN 19 mg/dL (9-20); CALCIUM 8.6 mg/dl (8.6-10.4); GFR NON-AFRICAN AMERICAN > 60
--- NOTE | 2018-10-09 08:40 | CP.PCM.PN ---
<Bebe Lubin - Last Filed: 10/09/18 15:06> Subjective - Date & Time of Evaluation Date of Evaluation: 10/09/18 Time of Evaluation: 08:00 - Subjective Subjective: Medicine Progress Note: Patient was seen and examined at bedside in the AM. Patient is resting comfortably in bed with at bedside. Patient to have chemotherapy in the afternoon. Patient denies fever, chills, chest pain, shortness of breath, abdominal pain, n/v/d, dizziness, lightheadedness, dysuria or hematuria. Objective - Vital Signs/Intake and Output Vital Signs (last 24 hours): Temp Pulse Resp BP Pulse Ox 98.1 F 86 20 131/74 98 10/09/18 00:00 10/09/18 00:00 10/09/18 00:00 10/09/18 00:00 10/09/18 00:00 Intake and Output: 10/09/18 10/09/18 06:59 18:59 Intake Total 1050 Output Total 1200 Balance -150 - Medications Medications: Current Medications Acetaminophen (Tylenol 325mg Tab) 650 mg PO ONCE ONE Stop: 10/09/18 12:01 Acetaminophen (Tylenol 325mg Tab) 650 mg PO ONCE ONE Stop: 10/10/18 12:01 Acetaminophen (Tylenol 325mg Tab) 650 mg PO ONCE ONE Stop: 10/11/18 12:01 Diphenhydramine HCl (Benadryl) 25 mg IVP ONCE ONE Stop: 10/09/18 12:01 Diphenhydramine HCl (Benadryl) 25 mg IVP ONCE ONE Stop: 10/10/18 12:01 Diphenhydramine HCl (Benadryl) 25 mg IVP ONCE ONE Stop: 10/11/18 12:01 Docusate Sodium (Colace) 100 mg PO BID [facility] Last Admin: 10/08/18 18:24 Dose: Not Given Famotidine (Pepcid) 20 mg IVP ONCE ONE Stop: 10/09/18 12:01 Famotidine (Pepcid) 20 mg IVP ONCE ONE Stop: 10/10/18 12:01 Famotidine (Pepcid) 20 mg IVP ONCE ONE Stop: 10/11/18 14:01 Hydrocortisone (Anusol-Hc) 0 gm [place] BID [facility] Last Admin: 10/08/18 21:58 Dose: 1 % Decitabine 30 mg/ Sodium (Chloride) 256 mls @ 256 mls/hr IV .Q1H ONE Stop: 10/09/18 13:29 Decitabine 30 mg/ Sodium (Chloride) 256 mls @ 256 mls/hr IV .Q1H ONE Stop: 10/10/18 13:29 Decitabine 30 mg/ Sodium (Chloride) 256 mls @ 256 mls/hr IV .Q1H ONE Stop: 10/11/18 13:29 Ondansetron HCl (Zofran Inj) 4 mg IVP DAILY@ONCE PRN PRN Reason: Nausea/Vomiting Pantoprazole Sodium (Protonix Inj) 40 mg IVP DAILY [facility] Last Admin: 10/08/18 09:42 Dose: 40 mg Saccharomyces Boulardii (Florastor) 250 mg PO BID [facility] Last Admin: 10/08/18 18:24 Dose: 250 mg Tamsulosin HCl (Flomax) 0.4 mg PO DAILY [facility] Last Admin: 10/08/18 09:42 Dose: 0.4 mg - Labs Labs: 10/09/18 07:20 10/09/18 07:24 PT 12.9 SECONDS (9.7-12.2) H 09/28/18 11:39 INR 1.2 09/28/18 11:39 APTT 25 SECONDS (21-34) 09/28/18 11:39 - Constitutional Appears: No Acute Distress, Cachectic, Chronically Ill - Head Exam Head Exam: ATRAUMATIC, NORMAL INSPECTION - Eye Exam Eye Exam: EOMI, Normal appearance - ENT Exam ENT Exam: Mucous Membranes Moist - Respiratory Exam Respiratory Exam: NORMAL BREATHING PATTERN - Cardiovascular Exam Cardiovascular Exam: REGULAR RHYTHM, +S1, +S2 - GI/Abdominal Exam GI & Abdominal Exam: Soft, Normal Bowel Sounds. absent: Tenderness - Extremities Exam Extremities Exam: Normal Inspection - Neurological Exam Neurological Exam: Alert, Awake, Oriented x3 - Psychiatric Exam Psychiatric exam: Normal Affect - Skin Skin Exam: Normal Color Assessment and Plan - Assessment and Plan (Free Text) Assessment: 77 y M w/ no PMHx: presents to ED for weakness, in ED found to be pancytopenic. 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 Bobby - Heme/Onc, Dr. bobby, consulted Per flow cytometery on bone marrow biopsy specimen (10/04); appears non M3 Awaiting further testing Not a candidate for induction chemotherapy given age and poor performance status Will attempt treatment with decitabine as inpatient if administration consents Transfusion support, neutropenic precaution Discussed results with the patient and his family - WBC 2.8, Hgb 4.6, Plt 13 on admission Peripheral smear shows moderate teardrop cells possible myelofibrosis - 10/01 transfused one unit of PLTs - 10/05 transfused two units of PLTs - 10/08 transfused one unit of PLTs - H/H is stable, but with pancytopenia Goal plt > 10,000 and hgb > [address] Bobby (10/06) - HIV is negative - Hep panel is normal - Palliative care nurseCailni, consulted for discussions of goals of care Left pneumothorax, resolving - Repeat chest CT (10/06): Diminished left pneumothorax with very mild residual noted. No right PTX. Stable mild right pleural effusion. Slightly increased mod. left pleural effusion evident. Compression atelactasis bilateral lobes. Mild COPD, with stable right apical partially calcified fibrotic changes evident once again. (see full report) - CT chest (10/04): Interval appearance of approximately 35 percent left-sided pneumothorax since the previous exam. - IR consulted, Dr. Garrison No intervention planned at this time D/T improvement and patient stability Medical management per primary - CT surgery, Dr. Murguia, has been consulted Pneumothorax resolving. Currently, risks exceed benefits of chest tube placement. No surgical intervention at this time. - currently hemodynamically stable, keep SpO2>92%. Lung mass, dry cough and night sweats, r/o active TB - airborne precautions discontinued - Sputum culture: Negative X 2 - Quantiferon test: negative - CXR as above - Chest CT as below - discontinue Rocephin and Azithromycin - Pulmonology, Dr. Thurston, consulted, recs appreciated - Blood cultures x2 negative for 5 days COPD, secondary to long history of smoking - CT: Emphysematous changes. Biapical pleural thickening. Bilateral upper lobe bulla. Abnormal right upper lobe spiculated/irregular opacities possibly malignant neoplasm or consolidation such as pneumonia. Calcifications are evident in this region, as are ground-glass opacities and bronchiectasis. Evidence of chronic interstitial fibrosis. Small bilateral pleural effusions and dependent atelectasis. No pneumothorax. Nodular opacities measuring approximately 6 mm in the left upper lobe (series 4, image 34) and 3 mm in the lingula (64). More localized ground-glass opacities noted in the left lower lobe (image 75). Limited visualized portions of the upper abdomen: Bilateral adrenal gland hypertrophy. Small hiatal hernia/distal esophageal wall thickening. No large central or segmental pulmonary embolus identified. Correlate with clinical status. Nodular opacities measuring approximately 6 mm in the left upper lobe and 3 mm in the lingula. More localized ground-glass rounded opacity noted in the left lower lobe. Recommend further evaluation with biopsy, PET- CT, or follow-up CT at 3 months, and 9 months, and 24 months. - CXR: Right upper lobe traction bronchiectasis with the probable granulomatous disease. Concomitant right pleural parenchymal pathology here suggested- infiltrate, mass, scar or combination of the above are considerations. - duonebs Q6H prn - Pulmonology, Dr. Thurston, on board Systolic and diastolic heart failure - Echo (09/28) shows LVEF of 36%, diastolic dysfunction. Trace MR. Mild TR. Small pericardial effusion. - continue to monitor Positive FOBT - Hgb is stable - protonox 40mg PO daily - GI Dr. Cox recs: likely aplastic, no endoscopy at this time, correct thrombocytopenia Ventral hernia - Surgery consulted, Dr. Porter Diarrhea, nonbloody - Likely secondary to antibiotics - C. diff: negative - Florastor BID BPH - hx of urinary retention during hospital stay, requiring wolff catheter inse rtion - Tamsulosin 0.4 mg PO daily - Urology, Dr. Norma Mallory is following - PSA is wnl, urine cx is negative for growth LBBB - AEKG reveals LBBB, unsure if new onset - remains asymptomatic - will monitor Prophylaxis - VTE ppx CI due to thrombocytopenia and anemia - GI: protonix 40 mg IVP - Regular diet Dispo: Newly diagnosed AML. Pt wishes Full Code and all necessary measures to support life. AML management per Doctor Diamante. Monitor for side effects of AML treatment, manage chronic medical conditions. Encourage OOB. ROSA M planning as per SW/CM. Patient is full code. <Andrzej Montoya Jr. - Last Filed: 10/10/18 15:06> Objective - Vital Signs/Intake and Output Vital Signs (last 24 hours): Temp Pulse Resp BP Pulse Ox 99.4 F 100 H 20 117/62 99 10/10/18 08:24 10/10/18 08:24 10/10/18 08:24 10/10/18 08:24 10/10/18 08:24 Intake and Output: 10/10/18 10/10/18 06:59 18:59 Intake Total 630 Output Total 2000 Balance -1370 - Medications Medications: Current Medications Acetaminophen (Tylenol 325mg Tab) 650 mg PO ONCE ONE Stop: 10/11/18 12:01 Diphenhydramine HCl (Benadryl) 25 mg IVP ONCE ONE Stop: 10/11/18 12:01 Diphenhydramine HCl (Benadryl) 25 mg IVP ONCE ONE Stop: 10/10/18 13:16 Docusate Sodium (Colace) 100 mg PO BID [facility] Last Admin: 10/10/18 10:37 Dose: Not Given Famotidine (Pepcid) 20 mg IVP ONCE ONE Stop: 10/11/18 14:01 Hydrocortisone (Anusol-Hc) 0 gm [place] BID [facility] Last Admin: 10/10/18 10:38 Dose: 2.5 % Decitabine 30 mg/ Sodium (Chloride) 256 mls @ 256 mls/hr IV .Q1H ONE Stop: 10/11/18 13:29 Ondansetron HCl (Zofran Inj) 4 mg IVP DAILY@ONCE PRN PRN Reason: Nausea/Vomiting Pantoprazole Sodium (Protonix Inj) 40 mg IVP DAILY [facility] Last Admin: 10/10/18 10:36 Dose: 40 mg Saccharomyces Boulardii (Florastor) 250 mg PO BID [facility] Last Admin: 10/10/18 10:37 Dose: 250 mg Tamsulosin HCl (Flomax) 0.4 mg PO BID [facility] - Labs Labs: 10/10/18 08:04 10/10/18 08:04 PT 12.9 SECONDS (9.7-12.2) H 09/28/18 11:39 INR 1.2 09/28/18 11:39 APTT 25 SECONDS (21-34) 09/28/18 11:39 Attending/Attestation - Attestation I have personally seen and examined this patient.: Yes I have fully participated in the care of the patient.: Yes I have reviewed all pertinent clinical information, including history, physical exam and plan: Yes Notes (Text): 10/10/18 15:06 Reviewed resident note. Agree with findings and plan of care.
[2018-10-09 09:38] LABS: LYMPHOCYTE 25 % (20-40); MONOCYTE 58 % (0-10); NEUTROPHIL 17 % (50-75); NUCLEATED RED BLOOD CELL 3 % (0-0); TOTAL CELLS COUNTED 100
[2018-10-09 09:39] LABS: ANISOCYTOSIS SLIGHT; HYPOCHROMIC SLIGHT; PLATELET ESTIMATE MARKEDLY DECREASED (NORMAL); POIKILOCYTOSIS SLIGHT
[2018-10-09 09:40] LABS: LARGE PLATELETS PRESENT; OVALOCYTES SLIGHT; POLYCHROMIC SLIGHT; TEARDROP CELLS SLIGHT
[2018-10-09 09:41] LABS: SCHISTOCYTES SLIGHT
[2018-10-09] MEDS: Saccharomyces Boulardi 250 mg Cap PO SCH ×2 (10:17→17:54)
[2018-10-09] MEDS: Hydrocortisone 2.5% Rectal Cream(30 gm) PR SCH ×2 (10:19→21:47)
[2018-10-09] MEDS ORDERED: DECITABINE IV ONE (12:30)
[2018-10-09] MEDS ORDERED: DiphenhydrAMINE 50 mg/ml Inj IVP ONE (12:30)
[2018-10-09] MEDS ORDERED: SODIUM CHLORIDE 0.9% IV ONE (12:30)
--- NOTE | 2018-10-09 15:30 | CP.PCM.PN ---
Subjective - Date & Time of Evaluation Date of Evaluation: 10/09/18 Time of Evaluation: 15:45 - Subjective Subjective: patient seen and examined Denies shortness of breath No cough No chest pain On chemotherapy Good appetite Followup chest x-ray Continue present treatment Objective - Vital Signs/Intake and Output Vital Signs (last 24 hours): Temp Pulse Resp BP Pulse Ox 99.2 F 94 H 20 139/71 99 10/09/18 08:00 10/09/18 08:00 10/09/18 08:00 10/09/18 08:00 10/09/18 08:00 Intake and Output: 10/09/18 10/09/18 06:59 18:59 Intake Total 1050 Output Total 1200 Balance -150 - Medications Medications: Current Medications Acetaminophen (Tylenol 325mg Tab) 650 mg PO ONCE ONE Stop: 10/10/18 12:01 Acetaminophen (Tylenol 325mg Tab) 650 mg PO ONCE ONE Stop: 10/11/18 12:01 Diphenhydramine HCl (Benadryl) 25 mg IVP ONCE ONE Stop: 10/10/18 12:01 Diphenhydramine HCl (Benadryl) 25 mg IVP ONCE ONE Stop: 10/11/18 12:01 Docusate Sodium (Colace) 100 mg PO BID [facility] Last Admin: 10/09/18 10:17 Dose: 100 mg Famotidine (Pepcid) 20 mg IVP ONCE ONE Stop: 10/10/18 12:01 Famotidine (Pepcid) 20 mg IVP ONCE ONE Stop: 10/11/18 14:01 Hydrocortisone (Anusol-Hc) 0 gm [place] BID [facility] Last Admin: 10/09/18 10:19 Dose: 2.5 % Decitabine 30 mg/ Sodium (Chloride) 256 mls @ 256 mls/hr IV .Q1H ONE Stop: 10/10/18 13:29 Decitabine 30 mg/ Sodium (Chloride) 256 mls @ 256 mls/hr IV .Q1H ONE Stop: 10/11/18 13:29 Ondansetron HCl (Zofran Inj) 4 mg IVP DAILY@ONCE PRN PRN Reason: Nausea/Vomiting Pantoprazole Sodium (Protonix Inj) 40 mg IVP DAILY [facility] Last Admin: 10/09/18 10:17 Dose: 40 mg Saccharomyces Boulardii (Florastor) 250 mg PO BID [facility] Last Admin: 10/09/18 10:17 Dose: 250 mg Tamsulosin HCl (Flomax) 0.4 mg PO DAILY [facility] Last Admin: 10/09/18 10:17 Dose: 0.4 mg - Labs Labs: 10/09/18 07:20 10/09/18 07:24 PT 12.9 SECONDS (9.7-12.2) H 09/28/18 11:39 INR 1.2 09/28/18 11:39 APTT 25 SECONDS (21-34) 09/28/18 11:39 Assessment and Plan (1) Lung mass Status: Acute (2) Pancytopenia Status: Acute (3) Pneumonia Status: Acute
--- NOTE | 2018-10-09 19:41 | CP.PCM.PN ---
Subjective - Date & Time of Evaluation Date of Evaluation: 10/08/18 Time of Evaluation: 12:00 - Subjective Subjective: Doing well Objective - Vital Signs/Intake and Output Vital Signs (last 24 hours): Temp Pulse Resp BP Pulse Ox 98.2 F 90 20 131/65 100 10/09/18 16:00 10/09/18 16:00 10/09/18 16:00 10/09/18 16:00 10/09/18 16:00 Intake and Output: 10/09/18 10/10/18 18:59 06:59 Intake Total 900 Output Total 1125 Balance -225 - Medications Medications: Current Medications Acetaminophen (Tylenol 325mg Tab) 650 mg PO ONCE ONE Stop: 10/10/18 12:01 Acetaminophen (Tylenol 325mg Tab) 650 mg PO ONCE ONE Stop: 10/11/18 12:01 Diphenhydramine HCl (Benadryl) 25 mg IVP ONCE ONE Stop: 10/10/18 12:01 Diphenhydramine HCl (Benadryl) 25 mg IVP ONCE ONE Stop: 10/11/18 12:01 Docusate Sodium (Colace) 100 mg PO BID [facility] Last Admin: 10/09/18 17:54 Dose: 100 mg Famotidine (Pepcid) 20 mg IVP ONCE ONE Stop: 10/10/18 12:01 Famotidine (Pepcid) 20 mg IVP ONCE ONE Stop: 10/11/18 14:01 Hydrocortisone (Anusol-Hc) 0 gm [place] BID [facility] Last Admin: 10/09/18 10:19 Dose: 2.5 % Decitabine 30 mg/ Sodium (Chloride) 256 mls @ 256 mls/hr IV .Q1H ONE Stop: 10/10/18 13:29 Decitabine 30 mg/ Sodium (Chloride) 256 mls @ 256 mls/hr IV .Q1H ONE Stop: 10/11/18 13:29 Ondansetron HCl (Zofran Inj) 4 mg IVP DAILY@ONCE PRN PRN Reason: Nausea/Vomiting Pantoprazole Sodium (Protonix Inj) 40 mg IVP DAILY [facility] Last Admin: 10/09/18 10:17 Dose: 40 mg Saccharomyces Boulardii (Florastor) 250 mg PO BID [facility] Last Admin: 10/09/18 17:54 Dose: 250 mg Tamsulosin HCl (Flomax) 0.4 mg PO DAILY [facility] Last Admin: 10/09/18 10:17 Dose: 0.4 mg - Labs Labs: 10/09/18 07:20 10/09/18 07:24 PT 12.9 SECONDS (9.7-12.2) H 09/28/18 11:39 INR 1.2 09/28/18 11:39 APTT 25 SECONDS (21-34) 09/28/18 11:39 - Head Exam Head Exam: ATRAUMATIC - Eye Exam Eye Exam: Normal appearance - ENT Exam ENT Exam: Mucous Membranes Dry - Respiratory Exam Respiratory Exam: NORMAL BREATHING PATTERN - Cardiovascular Exam Cardiovascular Exam: +S1, +S2 - GI/Abdominal Exam GI & Abdominal Exam: Normal Bowel Sounds Assessment and Plan (1) AML (acute myeloblastic leukemia) Assessment & Plan: on decitabine; day 2 transfusion support PRN goal plt > 10,000 hgb > 7 Status: Acute (2) Pancytopenia Assessment & Plan: secondary to AML Status: Acute (3) Lung mass Assessment & Plan: no current intervention Status: Acute
--- NOTE | 2018-10-09 19:42 | CP.PCM.PN ---
Subjective - Date & Time of Evaluation Date of Evaluation: 10/09/18 Time of Evaluation: 17:00 - Subjective Subjective: Appetite improved, family at bedside. Objective - Vital Signs/Intake and Output Vital Signs (last 24 hours): Temp Pulse Resp BP Pulse Ox 98.2 F 90 20 131/65 100 10/09/18 16:00 10/09/18 16:00 10/09/18 16:00 10/09/18 16:00 10/09/18 16:00 Intake and Output: 10/09/18 10/10/18 18:59 06:59 Intake Total 900 Output Total 1125 Balance -225 - Medications Medications: Current Medications Acetaminophen (Tylenol 325mg Tab) 650 mg PO ONCE ONE Stop: 10/10/18 12:01 Acetaminophen (Tylenol 325mg Tab) 650 mg PO ONCE ONE Stop: 10/11/18 12:01 Diphenhydramine HCl (Benadryl) 25 mg IVP ONCE ONE Stop: 10/10/18 12:01 Diphenhydramine HCl (Benadryl) 25 mg IVP ONCE ONE Stop: 10/11/18 12:01 Docusate Sodium (Colace) 100 mg PO BID [facility] Last Admin: 10/09/18 17:54 Dose: 100 mg Famotidine (Pepcid) 20 mg IVP ONCE ONE Stop: 10/10/18 12:01 Famotidine (Pepcid) 20 mg IVP ONCE ONE Stop: 10/11/18 14:01 Hydrocortisone (Anusol-Hc) 0 gm [place] BID [facility] Last Admin: 10/09/18 10:19 Dose: 2.5 % Decitabine 30 mg/ Sodium (Chloride) 256 mls @ 256 mls/hr IV .Q1H ONE Stop: 10/10/18 13:29 Decitabine 30 mg/ Sodium (Chloride) 256 mls @ 256 mls/hr IV .Q1H ONE Stop: 10/11/18 13:29 Ondansetron HCl (Zofran Inj) 4 mg IVP DAILY@ONCE PRN PRN Reason: Nausea/Vomiting Pantoprazole Sodium (Protonix Inj) 40 mg IVP DAILY [facility] Last Admin: 10/09/18 10:17 Dose: 40 mg Saccharomyces Boulardii (Florastor) 250 mg PO BID [facility] Last Admin: 10/09/18 17:54 Dose: 250 mg Tamsulosin HCl (Flomax) 0.4 mg PO DAILY [facility] Last Admin: 10/09/18 10:17 Dose: 0.4 mg - Labs Labs: 10/09/18 07:20 10/09/18 07:24 PT 12.9 SECONDS (9.7-12.2) H 09/28/18 11:39 INR 1.2 09/28/18 11:39 APTT 25 SECONDS (21-34) 09/28/18 11:39 - Head Exam Head Exam: ATRAUMATIC - Eye Exam Eye Exam: Normal appearance - ENT Exam ENT Exam: Mucous Membranes Dry - Respiratory Exam Respiratory Exam: NORMAL BREATHING PATTERN - Cardiovascular Exam Cardiovascular Exam: +S1, +S2 - GI/Abdominal Exam GI & Abdominal Exam: Normal Bowel Sounds Assessment and Plan (1) AML (acute myeloblastic leukemia) Assessment & Plan: on decitabine; day 3 tolerating well Status: Acute (2) Pancytopenia Assessment & Plan: secondary to AML Status: Acute (3) Lung mass Assessment & Plan: no current intervention Status: Acute
[2018-10-10 08:10] LABS: HEMOGLOBIN 9.3 g/dL (12.0-18.0); MEAN CELL VOLUME 86.6 fL (80.0-94.0); MEAN CORPUSCULAR HEMOGLOBIN 28.4 pg (27.0-31.0); MEAN CORPUSCULAR HGB CONC 32.8 g/dL (33.0-37.0); MEAN PLATELET VOLUME 11.1 fL (7.2-11.7); RBC 3.27 Mil/uL (4.40-5.90); RED CELL DISTRIBUTION WIDTH 15.2 % (11.5-14.5)
--- NOTE | 2018-10-10 08:14 | CP.PCM.PN ---
<Bebe Lubin - Last Filed: 10/10/18 13:57> Subjective - Date & Time of Evaluation Date of Evaluation: 10/10/18 Time of Evaluation: 08:00 - Subjective Subjective: Medicine Progress Note: Patient was seen and examined at bedside in the AM. Patient is resting comfortably in bed with and daughter at bedside. Patient to have chemotherapy in the afternoon. Patient was evaluated again the later morning and patient had increased hematuria noted in wolff and some pelvic discomfort. Patient denies fever, chills, chest pain, shortness of breath, n/v/d, dizziness, lightheadedness. Objective - Vital Signs/Intake and Output Vital Signs (last 24 hours): Temp Pulse Resp BP Pulse Ox 98.1 F 99 H 20 129/73 98 10/10/18 00:00 10/10/18 00:00 10/10/18 00:00 10/10/18 00:00 10/10/18 00:00 Intake and Output: 10/10/18 10/10/18 06:59 18:59 Intake Total 630 Output Total 2000 Balance -1370 - Medications Medications: Current Medications Acetaminophen (Tylenol 325mg Tab) 650 mg PO ONCE ONE Stop: 10/10/18 12:01 Acetaminophen (Tylenol 325mg Tab) 650 mg PO ONCE ONE Stop: 10/11/18 12:01 Diphenhydramine HCl (Benadryl) 25 mg IVP ONCE ONE Stop: 10/10/18 12:01 Diphenhydramine HCl (Benadryl) 25 mg IVP ONCE ONE Stop: 10/11/18 12:01 Docusate Sodium (Colace) 100 mg PO BID [facility] Last Admin: 10/09/18 17:54 Dose: 100 mg Famotidine (Pepcid) 20 mg IVP ONCE ONE Stop: 10/10/18 12:01 Famotidine (Pepcid) 20 mg IVP ONCE ONE Stop: 10/11/18 14:01 Hydrocortisone (Anusol-Hc) 0 gm [place] BID [facility] Last Admin: 10/09/18 21:47 Dose: 1 % Decitabine 30 mg/ Sodium (Chloride) 256 mls @ 256 mls/hr IV .Q1H ONE Stop: 10/10/18 13:29 Decitabine 30 mg/ Sodium (Chloride) 256 mls @ 256 mls/hr IV .Q1H ONE Stop: 10/11/18 13:29 Ondansetron HCl (Zofran Inj) 4 mg IVP DAILY@ONCE PRN PRN Reason: Nausea/Vomiting Pantoprazole Sodium (Protonix Inj) 40 mg IVP DAILY [facility] Last Admin: 10/09/18 10:17 Dose: 40 mg Saccharomyces Boulardii (Florastor) 250 mg PO BID [facility] Last Admin: 10/09/18 17:54 Dose: 250 mg Tamsulosin HCl (Flomax) 0.4 mg PO DAILY [facility] Last Admin: 10/09/18 10:17 Dose: 0.4 mg - Labs Labs: 10/09/18 07:20 10/09/18 07:24 PT 12.9 SECONDS (9.7-12.2) H 09/28/18 11:39 INR 1.2 09/28/18 11:39 APTT 25 SECONDS (21-34) 09/28/18 11:39 - Constitutional Appears: No Acute Distress, Cachectic, Chronically Ill - Head Exam Head Exam: ATRAUMATIC, NORMAL INSPECTION - Eye Exam Eye Exam: EOMI, Normal appearance - ENT Exam ENT Exam: Mucous Membranes Moist - Respiratory Exam Respiratory Exam: Clear to Ausculation Bilateral, NORMAL BREATHING PATTERN - Cardiovascular Exam Cardiovascular Exam: REGULAR RHYTHM, +S1, +S2 - GI/Abdominal Exam GI & Abdominal Exam: Soft, Normal Bowel Sounds. absent: Tenderness - Extremities Exam Extremities Exam: Normal Inspection - Neurological Exam Neurological Exam: Alert, Awake, Oriented x3 - Psychiatric Exam Psychiatric exam: Normal Affect - Skin Skin Exam: Normal Color Assessment and Plan - Assessment and Plan (Free Text) Assessment: 77 y M w/ no PMHx: presents to ED for weakness, in ED found to be pancytopenic. prelim bone biopsy shows AML (pending final report) Plan: Hematuria/Retained Urine - Wolff was clogged due to blood clots - Discussed with covering urologist, Dr. Alyson Mallory. - Wolff was changed 10/10/18 - Patient also being transfused 1 unit of platelets 10/10/18 (Platelets 11) - f/u CBC Newly diagnosed AML, with pancytopenia on presentation - s/p second hypomethylating infusion; well tolerated Management as per Dr. Bobby - Heme/Onc, Dr. bobby, consulted Per flow cytometery on bone marrow biopsy specimen (10/04); appears non M3 Awaiting further testing Not a candidate for induction chemotherapy given age and poor performance status Will attempt treatment with decitabine as inpatient if administration consents Transfusion support, neutropenic precaution Discussed results with the patient and his family - WBC 2.8, Hgb 4.6, Plt 13 on admission Peripheral smear shows moderate teardrop cells possible myelofibrosis - 10/01 transfused one unit of PLTs - 10/05 transfused two units of PLTs - 10/08 transfused one unit of PLTs - H/H is stable, but with pancytopenia Goal plt > 10,000 and hgb > [address] Bobby (10/06) - HIV is negative - Hep panel is normal - Palliative care nurse, Cailin, consulted for discussions of goals of care Left pneumothorax, resolving - Repeat chest CT (10/06): Diminished left pneumothorax with very mild residual noted. No right PTX. Stable mild right pleural effusion. Slightly increased mod. left pleural effusion evident. Compression atelactasis bilateral lobes. Mild COPD, with stable right apical partially calcified fibrotic changes evident once again. (see full report) - CT chest (10/04): Interval appearance of approximately 35 percent left-sided pneumothorax since the previous exam. - IR consulted, Dr. Garrison No intervention planned at this time D/T improvement and patient stability Medical management per primary - CT surgery, Dr. Murguia, has been consulted Pneumothorax resolving. Currently, risks exceed benefits of chest tube placement. No surgical intervention at this time. - currently hemodynamically stable, keep SpO2>92%. Lung mass, dry cough and night sweats, r/o active TB - airborne precautions discontinued - Sputum culture: Negative X 2 - Quantiferon test: negative - CXR as above - Chest CT as below - discontinue Rocephin and Azithromycin - Pulmonology, Dr. Thurston, consulted, recs appreciated - Blood cultures x2 negative for 5 days COPD, secondary to long history of smoking - CT: Emphysematous changes. Biapical pleural thickening. Bilateral upper lobe bulla. Abnormal right upper lobe spiculated/irregular opacities possibly malignant neoplasm or consolidation such as pneumonia. Calcifications are evident in this region, as are ground-glass opacities and bronchiectasis. Evidence of chronic interstitial fibrosis. Small bilateral pleural effusions and dependent atelectasis. No pneumothorax. Nodular opacities measuring approximately 6 mm in the left upper lobe (series 4, image 34) and 3 mm in the lingula (64). More localized ground-glass opacities noted in the left lower lobe (image 75). Limited visualized portions of the upper abdomen: Bilateral adrenal gland hypertrophy. Small hiatal hernia/distal esophageal wall thickening. No large central or segmental pulmonary embolus identified. Correlate with clinical status. Nodular opacities measuring approximately 6 mm in the left upper lobe and 3 mm in the lingula. More localized ground-glass rounded opacity noted in the left lower lobe. Recommend further evaluation with biopsy, PET- CT, or follow-up CT at 3 months, and 9 months, and 24 months. - CXR: Right upper lobe traction bronchiectasis with the probable granulomatous disease. Concomitant right pleural parenchymal pathology here suggested- infiltrate, mass, scar or combination of the above are considerations. - duonebs Q6H prn - Pulmonology, Dr. Thurston, on board Systolic and diastolic heart failure - Echo (09/28) shows LVEF of 36%, diastolic dysfunction. Trace MR. Mild TR. Small pericardial effusion. - continue to monitor Positive FOBT - Hgb is stable - protonox 40mg PO daily - GI Dr. Cox recs: likely aplastic, no endoscopy at this time, correct thrombocytopenia Ventral hernia - Surgery consulted, Dr. Porter Diarrhea, nonbloody - Likely secondary to antibiotics - C. diff: negative - Florastor BID BPH - hx of urinary retention during hospital stay, requiring wolff catheter insertion - Tamsulosin 0.4 mg PO daily - Urology, Dr. Noram Mallory is following - PSA is wnl, urine cx is negative for growth LBBB - AEKG reveals LBBB, unsure if new onset - remains asymptomatic - will monitor Prophylaxis - VTE ppx CI due to thrombocytopenia and anemia - GI: protonix 40 mg IVP - Regular diet Dispo: Newly diagnosed AML. Pt wishes Full Code and all necessary measures to support life. AML management per Doctor Diamante. Monitor for side effects of AML treatment, manage chronic medical conditions. Encourage OOB. ROSA M planning as per SW/CM. Patient is full code. <Andrzej Montoya Jr. - Last Filed: 10/10/18 15:05> Objective - Vital Signs/Intake and Output Vital Signs (last 24 hours): Temp Pulse Resp BP Pulse Ox 99.4 F 100 H 20 117/62 99 10/10/18 08:24 10/10/18 08:24 10/10/18 08:24 10/10/18 08:24 10/10/18 08:24 Intake and Output: 10/10/18 10/10/18 06:59 18:59 Intake Total 630 Output Total 1999 Balance -1370 - Medications Medications: Current Medications Acetaminophen (Tylenol 325mg Tab) 650 mg PO ONCE ONE Stop: 10/11/18 12:01 Diphenhydramine HCl (Benadryl) 25 mg IVP ONCE ONE Stop: 10/11/18 12:01 Diphenhydramine HCl (Benadryl) 25 mg IVP ONCE ONE Stop: 10/10/18 13:16 Docusate Sodium (Colace) 100 mg PO BID [facility] Last Admin: 10/10/18 10:37 Dose: Not Given Famotidine (Pepcid) 20 mg IVP ONCE ONE Stop: 10/11/18 14:01 Hydrocortisone (Anusol-Hc) 0 gm [place] BID [facility] Last Admin: 10/10/18 10:38 Dose: 2.5 % Decitabine 30 mg/ Sodium (Chloride) 256 mls @ 256 mls/hr IV .Q1H ONE Stop: 10/11/18 13:29 Ondansetron HCl (Zofran Inj) 4 mg IVP DAILY@ONCE PRN PRN Reason: Nausea/Vomiting Pantoprazole Sodium (Protonix Inj) 40 mg IVP DAILY [facility] Last Admin: 10/10/18 10:36 Dose: 40 mg Saccharomyces Boulardii (Florastor) 250 mg PO BID [facility] Last Admin: 10/10/18 10:37 Dose: 250 mg Tamsulosin HCl (Flomax) 0.4 mg PO BID [facility] - Labs Labs: 10/10/18 08:04 10/10/18 08:04 PT 12.9 SECONDS (9.7-12.2) H 09/28/18 11:39 INR 1.2 09/28/18 11:39 APTT 25 SECONDS (21-34) 09/28/18 11:39 Attending/Attestation - Attestation I have personally seen and examined this patient.: Yes I have fully participated in the care of the patient.: Yes I have reviewed all pertinent clinical information, including history, physical exam and plan: Yes Notes (Text): 10/10/18 15:04 Reviewed resident note. Agree with findings and plan of care.
[2018-10-10 08:22] LABS: PLATELET COUNT 11 K/uL (130-400)
[2018-10-10 08:32] LABS: ALB/GLOB RATIO 0.8 (1.0-2.1); ALBUMIN 2.5 g/dL (3.5-5.0); ALT/SGPT 21 U/L (21-72); AST/SGOT 23 U/L (17-59); BLOOD UREA NITROGEN 18 mg/dL (9-20); CALCIUM 8.3 mg/dl (8.6-10.4); GFR NON-AFRICAN AMERICAN > 60
[2018-10-10 08:59] LABS: EOS % 0.3 % (0.0-4.0); LYMPH % 33.7 % (20.0-40.0); MONO % 56.9 % (0.0-10.0); NEUT % 9.1 % (50.0-75.0); NRBC % 2.7 % (0.0-2.0)
[2018-10-10 09:00] LABS: LYMPH # 0.7 K/uL (1.0-4.3); MONO # 1.1 K/uL (0.0-0.8); NEUT # 0.2 K/uL (1.8-7.0)
[2018-10-10 09:01] LABS: LYMPHOCYTE 30 % (20-40); MONOCYTE 59 % (0-10); NEUTROPHIL 11 % (50-75); PLATELET ESTIMATE MARKEDLY DECREASED (NORMAL); TOTAL CELLS COUNTED 100
[2018-10-10 09:02] LABS: ANISOCYTOSIS SLIGHT; HYPOCHROMIC SLIGHT; POIKILOCYTOSIS SLIGHT; POLYCHROMIC SLIGHT; TEARDROP CELLS SLIGHT
[2018-10-10] MEDS: Saccharomyces Boulardi 250 mg Cap PO SCH ×2 (10:37→18:29)
[2018-10-10] MEDS: Hydrocortisone 2.5% Rectal Cream(30 gm) PR SCH ×2 (10:38→18:30)
[2018-10-10] MEDS ORDERED: DiphenhydrAMINE 50 mg/ml Inj IVP ONE ×3 (12:00→13:15)
[2018-10-10] MEDS ORDERED: SODIUM CHLORIDE 0.9% IV ONE (12:30)
[2018-10-10] MEDS ORDERED: DECITABINE IV ONE (12:30)
--- NOTE | 2018-10-10 19:13 | CP.PCM.PN ---
Subjective - Date & Time of Evaluation Date of Evaluation: 10/10/18 Time of Evaluation: 18:00 - Subjective Subjective: Has hematuria with clots in wolff For wolff exchange 1 bag platelets transfusion today. Objective - Vital Signs/Intake and Output Vital Signs (last 24 hours): Temp Pulse Resp BP Pulse Ox 98.6 F 89 20 120/67 97 10/10/18 18:27 10/10/18 18:27 10/10/18 18:27 10/10/18 18:27 10/10/18 16:00 Intake and Output: 10/10/18 10/11/18 18:59 06:59 Intake Total 1000 Output Total 700 Balance 300 - Medications Medications: Current Medications Acetaminophen (Tylenol 325mg Tab) 650 mg PO ONCE ONE Stop: 10/11/18 12:01 Diphenhydramine HCl (Benadryl) 25 mg IVP ONCE ONE Stop: 10/11/18 12:01 Diphenhydramine HCl (Benadryl) 25 mg IVP ONCE ONE Stop: 10/10/18 13:16 Docusate Sodium (Colace) 100 mg PO BID [facility] Last Admin: 10/10/18 18:29 Dose: 100 mg Famotidine (Pepcid) 20 mg IVP ONCE ONE Stop: 10/11/18 14:01 Hydrocortisone (Anusol-Hc) 0 gm [place] BID [facility] Last Admin: 10/10/18 18:30 Dose: 1 % Decitabine 30 mg/ Sodium (Chloride) 256 mls @ 256 mls/hr IV .Q1H ONE Stop: 10/11/18 13:29 Ondansetron HCl (Zofran Inj) 4 mg IVP DAILY@ONCE PRN PRN Reason: Nausea/Vomiting Pantoprazole Sodium (Protonix Inj) 40 mg IVP DAILY [facility] Last Admin: 10/10/18 10:36 Dose: 40 mg Saccharomyces Boulardii (Florastor) 250 mg PO BID [facility] Last Admin: 10/10/18 18:29 Dose: 250 mg Tamsulosin HCl (Flomax) 0.4 mg PO BID [facility] Last Admin: 10/10/18 18:29 Dose: 0.4 mg - Labs Labs: 10/10/18 08:04 10/10/18 08:04 PT 12.9 SECONDS (9.7-12.2) H 09/28/18 11:39 INR 1.2 09/28/18 11:39 APTT 25 SECONDS (21-34) 09/28/18 11:39 - Head Exam Head Exam: ATRAUMATIC - Eye Exam Eye Exam: Normal appearance - ENT Exam ENT Exam: Mucous Membranes Dry - Respiratory Exam Respiratory Exam: NORMAL BREATHING PATTERN - Cardiovascular Exam Cardiovascular Exam: +S1, +S2 - GI/Abdominal Exam GI & Abdominal Exam: Normal Bowel Sounds Assessment and Plan (1) AML (acute myeloblastic leukemia) Assessment & Plan: on decitabine 1 bag platelets today given hematuria Status: Acute (2) Pancytopenia Assessment & Plan: secondary to AML Status: Acute (3) Lung mass Assessment & Plan: no current intervention Status: Acute
[2018-10-10 22:05] LABS: EOS % 0.1 % (0.0-4.0); HEMOGLOBIN 7.9 g/dL (12.0-18.0); LYMPH # 0.6 K/uL (1.0-4.3); LYMPH % 31.8 % (20.0-40.0); MEAN CELL VOLUME 86.8 fL (80.0-94.0); MEAN CORPUSCULAR HEMOGLOBIN 28.4 pg (27.0-31.0); MEAN CORPUSCULAR HGB CONC 32.7 g/dL (33.0-37.0); MONO # 1.2 K/uL (0.0-0.8); MONO % 60.5 % (0.0-10.0); NEUT # 0.2 K/uL (1.8-7.0); NEUT % 7.6 % (50.0-75.0); NRBC % 3.6 % (0.0-2.0); RBC 2.78 Mil/uL (4.40-5.90); RED CELL DISTRIBUTION WIDTH 15.3 % (11.5-14.5)
[2018-10-10 22:12] LABS: PLATELET COUNT 26 K/uL (130-400)
[2018-10-10 22:52] LABS: LYMPHOCYTE 34 % (20-40); MONOCYTE 59 % (0-10); NEUTROPHIL 7 % (50-75); NUCLEATED RED BLOOD CELL 1 % (0-0); PLATELET ESTIMATE MARKEDLY DECREASED (NORMAL); TOTAL CELLS COUNTED 100
[2018-10-10 22:53] LABS: ANISOCYTOSIS SLIGHT; HYPOCHROMIC SLIGHT; OVALOCYTES SLIGHT; POIKILOCYTOSIS SLIGHT; POLYCHROMIC SLIGHT; TEARDROP CELLS SLIGHT
[2018-10-10 22:54] LABS: BURR CELLS SLIGHT
--- NOTE | 2018-10-11 08:14 | CP.PCM.PN ---
Subjective - Date & Time of Evaluation Date of Evaluation: 10/11/18 Time of Evaluation: 07:45 - Subjective Subjective: PGY-1 Medicine progress note for Dr. Montoya's service Patient was seen and examined at bedside. Patient is resting comfortably in bed, eating breakfast. Patient to have chemotherapy in the afternoon. 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 Wolff catheter was removed yesterday (10/10). Patient denies fever, chills, chest pain, shortness of breath, abdominal pain, n/v/d, dizziness, lightheadedness, penile discharge, dysuria, hemoptysis, or any other acute bleeding. Objective - Vital Signs/Intake and Output Vital Signs (last 24 hours): Temp Pulse Resp BP Pulse Ox 99.1 F 88 20 127/70 100 10/11/18 00:00 10/11/18 00:00 10/11/18 00:00 10/11/18 00:00 10/11/18 00:00 Intake and Output: 10/11/18 10/11/18 06:59 18:59 Intake Total 1300 Output Total 700 Balance 600 - Medications Medications: Current Medications Acetaminophen (Tylenol 325mg Tab) 650 mg PO ONCE ONE Stop: 10/11/18 12:01 Diphenhydramine HCl (Benadryl) 25 mg IVP ONCE ONE Stop: 10/11/18 12:01 Diphenhydramine HCl (Benadryl) 25 mg IVP ONCE ONE Stop: 10/10/18 13:16 Docusate Sodium (Colace) 100 mg PO BID [facility] Last Admin: 10/10/18 18:29 Dose: 100 mg Famotidine (Pepcid) 20 mg IVP ONCE ONE Stop: 10/11/18 14:01 Hydrocortisone (Anusol-Hc) 0 gm [place] BID [facility] Last Admin: 10/10/18 18:30 Dose: 1 % Decitabine 30 mg/ Sodium (Chloride) 256 mls @ 256 mls/hr IV .Q1H ONE Stop: 10/11/18 13:29 Ondansetron HCl (Zofran Inj) 4 mg IVP DAILY@ONCE PRN PRN Reason: Nausea/Vomiting Pantoprazole Sodium (Protonix Inj) 40 mg IVP DAILY [facility] Last Admin: 10/10/18 10:36 Dose: 40 mg Saccharomyces Boulardii (Florastor) 250 mg PO BID [facility] Last Admin: 10/10/18 18:29 Dose: 250 mg Tamsulosin HCl (Flomax) 0.4 mg PO BID [facility] Last Admin: 10/10/18 18:29 Dose: 0.4 mg - Labs Labs: 10/10/18 22:02 10/10/18 08:04 PT 12.9 SECONDS (9.7-12.2) H 09/28/18 11:39 INR 1.2 09/28/18 11:39 APTT 25 SECONDS (21-34) 09/28/18 11:39 - Additional Findings Additional findings: - Constitutional Appears: No Acute Distress, Cachectic, Chronically Ill - Head Exam Head Exam: ATRAUMATIC, NORMAL INSPECTION - Eye Exam Eye Exam: EOMI, Normal appearance - ENT Exam ENT Exam: Mucous Membranes Moist - Respiratory Exam Respiratory Exam: Clear to Ausculation Bilateral, NORMAL BREATHING PATTERN - Cardiovascular Exam Cardiovascular Exam: REGULAR RHYTHM, +S1, +S2 - GI/Abdominal Exam GI & Abdominal Exam: Soft, Normal Bowel Sounds. absent: Tenderness, distension, rigidity, guarding - Extremities Exam Extremities Exam: Normal Inspection - Neurological Exam Neurological Exam: Alert, Awake, Oriented x3 - Psychiatric Exam Psychiatric exam: Normal Affect - Skin Skin Exam: Normal Color, multiple old healing scattered ecchymoses Assessment and Plan - Assessment and Plan (Free Text) Assessment: Assessment: 77 y M w/ no PMHx: presents to ED for weakness, in ED found to be pancytopenic. 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 Plan: Hematuria/Retained Urine; likely secondary to wolff placement - Wolff was clogged due to blood clots - Discussed with covering urologist, Dr. Alyson Mallory. 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 - s/p fourth hypomethylating infusion; well tolerated Management as per Dr. Bobby - Heme/Onc, Dr. bobby, consulted Per flow cytometery on bone marrow biopsy specimen (10/04); appears non M3 Awaiting further testing Not a candidate for induction chemotherapy given age and poor performance status Will attempt treatment with decitabine as inpatient if administration consents Transfusion support, neutropenic precaution Discussed results with the patient and his family - WBC 2.8, Hgb 4.6, Plt 13 on admission Peripheral smear shows moderate teardrop cells possible myelofibrosis - 10/01 transfused one unit of PLTs - 10/05 transfused two units of PLTs - 10/08 transfused one unit of PLTs - 10/10 transfused one unit of PLTs - H/H is stable, but with pancytopenia Goal plt > 10,000 and hgb > [address] Bobby (10/06) - HIV is negative - Hep panel is normal - Palliative care nurse, Cailin, consulted for discussions of goals of care - pt to undergo last round of Decitabine today. - Case discussed with Dr. Bobby who would like 2 units of pRBCs to be transfused today Left pneumothorax, resolving - Repeat chest CT (10/06): Diminished left pneumothorax with very mild residual noted. No right PTX. Stable mild right pleural effusion. Slightly increased mod. left pleural effusion evident. Compression atelactasis bilateral lobes. Mild COPD, with stable right apical partially calcified fibrotic changes evident once again. (see full report) - CT chest (10/04): Interval appearance of approximately 35 percent left-sided pneumothorax since the previous exam. - IR consulted, Dr. Garrison No intervention planned at this time D/T improvement and patient stability Medical management per primary - CT surgery, Dr. Murguia, has been consulted Pneumothorax resolving. Currently, risks exceed benefits of chest tube placement. No surgical intervention at this time. - currently hemodynamically stable, keep SpO2>92%. Lung mass, dry cough and night sweats, active TB has been ruled out - airborne precautions discontinued - Sputum culture: Negative X 2 - Quantiferon test: negative - CXR as above - Chest CT as below - discontinue Rocephin and Azithromycin - Pulmonology, Dr. Thurston, consulted, recs appreciated - Blood cultures x2 negative for 5 days COPD, secondary to long history of smoking - CT: Emphysematous changes. Biapical pleural thickening. Bilateral upper lobe bulla. Abnormal right upper lobe spiculated/irregular opacities possibly malignant neoplasm or consolidation such as pneumonia. Calcifications are evident in this region, as are ground-glass opacities and bronchiectasis. Eviden ce of chronic interstitial fibrosis. Small bilateral pleural effusions and dependent atelectasis. No pneumothorax. Nodular opacities measuring approximately 6 mm in the left upper lobe (series 4, image 34) and 3 mm in the lingula (64). More localized ground-glass opacities noted in the left lower lobe (image 75). Limited visualized portions of the upper abdomen: Bilateral adrenal gland hypertrophy. Small hiatal hernia/distal esophageal wall thickening. No large central or segmental pulmonary embolus identified. Correlate with clinical status. Nodular opacities measuring approximately 6 mm in the left upper lobe and 3 mm in the lingula. More localized ground-glass rounded opacity noted in t he left lower lobe. Recommend further evaluation with biopsy, PET- CT, or follow-up CT at 3 months, and 9 months, and 24 months. - CXR: Right upper lobe traction bronchiectasis with the probable granulomatous disease. Concomitant right pleural parenchymal pathology here suggested- infiltrate, mass, scar or combination of the above are considerations. - duonebs Q6H prn - Pulmonology, Dr. Thurston, on board Systolic and diastolic heart failure - Echo (09/28) shows LVEF of 36%, diastolic dysfunction. Trace MR. Mild TR. Small pericardial effusion. - continue to monitor Positive FOBT - Hgb is stable - protonox 40mg PO daily - GI Dr. Cox recs: likely aplastic, no endoscopy at this time, correct thrombocytopenia Ventral hernia - Surgery consulted, Dr. Porter Diarrhea, nonbloody - Likely secondary to antibiotics - C. diff: negative - Florastor BID BPH - hx of urinary retention during hospital stay, requiring wolff catheter insertion Wolff DC'd 10/10 - Tamsulosin 0.4 mg PO daily - Urology, Dr. Norma Mallory - PSA is wnl, urine cx is negative for growth - F/u urine culture with cytology LBBB - AEKG reveals LBBB, unsure if new onset - remains asymptomatic - will monitor Prophylaxis - VTE ppx CI due to thrombocytopenia and anemia - GI: protonix 40 mg IVP - Regular diet Dispo: Newly diagnosed AML. Pt wishes Full Code and all necessary measures to support life. AML management per Doctor Diamante. Monitor for side effects of AML treatment, manage chronic medical conditions. Encourage OOB. ROSA M planning as per SW/CM. To receive last round of chemotherapy today. Will transfuse 2 units of pRBCs today. F/u CBC in am. Potential discharge to [facility] tomorrow. Patient is full code. Case discussed with Dr. Montoya, all medical management as per Dr. Lindsay Soares PGY1
[2018-10-11 09:30] LABS: EOS % 0.1 % (0.0-4.0); HEMOGLOBIN 8.2 g/dL (12.0-18.0); LYMPH # 0.5 K/uL (1.0-4.3); LYMPH % 33.5 % (20.0-40.0); MEAN CELL VOLUME 86.9 fL (80.0-94.0); MEAN CORPUSCULAR HEMOGLOBIN 28.2 pg (27.0-31.0); MEAN CORPUSCULAR HGB CONC 32.5 g/dL (33.0-37.0); MEAN PLATELET VOLUME 9.6 fL (7.2-11.7); MONO % 60.6 % (0.0-10.0); NEUT # 0.1 K/uL (1.8-7.0); NEUT % 5.8 % (50.0-75.0); NRBC % 2.6 % (0.0-2.0); RBC 2.93 Mil/uL (4.40-5.90); RED CELL DISTRIBUTION WIDTH 15.1 % (11.5-14.5)
[2018-10-11 09:36] LABS: PLATELET COUNT 16 K/uL (130-400); WHITE BLOOD COUNT 1.6 K/uL (4.8-10.8)
[2018-10-11 09:56] LABS: ALB/GLOB RATIO 0.8 (1.0-2.1); ALBUMIN 2.6 g/dL (3.5-5.0); ALT/SGPT 19 U/L (21-72); AST/SGOT 28 U/L (17-59); BLOOD UREA NITROGEN 21 mg/dL (9-20); CALCIUM 8.4 mg/dl (8.6-10.4); GFR NON-AFRICAN AMERICAN > 60
[2018-10-11 10:55] LABS: ANISOCYTOSIS SLIGHT; LYMPHOCYTE 26 % (20-40); MONOCYTE 61 % (0-10); NEUTROPHIL 13 % (50-75); PLATELET ESTIMATE MARKEDLY DECREASED (NORMAL); TOTAL CELLS COUNTED 100
[2018-10-11 10:56] LABS: HYPOCHROMIC SLIGHT; OVALOCYTES SLIGHT; POLYCHROMIC SLIGHT
[2018-10-11 10:57] LABS: MICROCYTOSIS SLIGHT
[2018-10-11] MEDS: Saccharomyces Boulardi 250 mg Cap PO SCH ×2 (11:01→17:59)
[2018-10-11] MEDS: Hydrocortisone 2.5% Rectal Cream(30 gm) PR SCH ×2 (11:03→21:28)
[2018-10-11] MEDS ORDERED: DiphenhydrAMINE 50 mg/ml Inj IVP ONE (12:00)
[2018-10-11] MEDS ORDERED: DECITABINE IV ONE (12:30)
[2018-10-11] MEDS ORDERED: SODIUM CHLORIDE 0.9% IV ONE (12:30)
--- NOTE | 2018-10-11 16:06 | PCM.URO ---
Urology Progress Note - Objective Lab Studies: Reviewed (no wolff for now no cystoscopy for now will follow along) Lab Results Last 24 Hours: Laboratory Results - last 24 hr 10/10/18 10/11/18 10/11/18 22:02 09:26 09:26 WBC 2.0 L* 1.6 L* RBC 2.78 L 2.93 L Hgb 7.9 L 8.2 L Hct 24.2 L 25.4 L MCV 86.8 86.9 MCH 28.4 28.2 MCHC 32.7 L 32.5 L RDW 15.3 H 15.1 H Plt Count 26 L* D 16 L* D MPV 8.0 9.6 Neut % (Auto) 7.6 L 5.8 L Lymph % (Auto) 31.8 33.5 [place] % (Auto) 60.5 H 60.6 H Eos % (Auto) 0.1 0.1 Baso % (Auto) 0.0 0.0 Neut # (Auto) 0.2 L 0.1 L Lymph # (Auto) 0.6 L 0.5 L [place] # (Auto) 1.2 H 1.0 H Eos # (Auto) 0.0 0.0 Baso # (Auto) 0.0 0.0 Neutrophils % (Manual) 7 L 13 L Lymphocytes % (Manual) 34 26 Monocytes % (Manual) 59 H 61 H Nucleated RBC % 1 H Platelet Estimate Markedly decreased L Markedly decreased L Polychromasia Slight Slight Hypochromasia (manual) Slight Slight Poikilocytosis (manual Slight Anisocytosis (manual) Slight Slight Microcytosis (manual) Slight Tear Drop Cells Slight Ovalocytes Slight Slight Britton Cells Slight Sodium 136 Potassium 3.6 Chloride 100 Carbon Dioxide 28 Anion Gap 12 BUN 21 H Creatinine 1.0 Est GFR ( Amer) > 60 Est GFR (Non-Af Amer) > 60 Random Glucose 194 H Calcium 8.4 L Phosphorus 3.5 Magnesium 1.8 Total Bilirubin 0.4 AST 28 ALT 19 L Alkaline Phosphatase 79 Total Protein 5.9 L Albumin 2.6 L Globulin 3.3 Albumin/Globulin Ratio 0.8 L Blood Type Antibody Screen 10/11/18 15:04 WBC RBC Hgb Hct MCV MCH MCHC RDW Plt Count MPV Neut % (Auto) Lymph % (Auto) [place] % (Auto) Eos % (Auto) Baso % (Auto) Neut # (Auto) Lymph # (Auto) [place] # (Auto) Eos # (Auto) Baso # (Auto) Neutrophils % (Manual) Lymphocytes % (Manual) Monocytes % (Manual) Nucleated RBC % Platelet Estimate Polychromasia Hypochromasia (manual) Poikilocytosis (manual Anisocytosis (manual) Microcytosis (manual) Tear Drop Cells Ovalocytes Britton Cells Sodium Potassium Chloride Carbon Dioxide Anion Gap BUN Creatinine Est GFR ( Amer) Est GFR (Non-Af Amer) Random Glucose Calcium Phosphorus Magnesium Total Bilirubin AST ALT Alkaline Phosphatase Total Protein Albumin Globulin Albumin/Globulin Ratio Blood Type B POSITIVE Antibody Screen Negative Intake & Output: Intake & Output 10/10/18 10/11/18 10/11/18 18:59 06:59 18:59 Intake Total 1000 1300 Output Total 700 700 Balance 300 600 Intake: Intake, IV Amount 500 50 Right Forearm 500 50 Oral 500 600 Blood Product 0 600 Apheresis Plts Acda Lr 0 300 Irr 2nd Unit [id number] Other 50 Apheresis Plts Acda Lr 50 Irr 2nd Unit [id number] Output: Urine 700 700 Urethral (Wolff) 700 300 Urine, Voided 400 Other: # Voids Urine, Voided 2 # Bowel Movements 3 0 Vital Signs: Vital Signs - 24 hr 10/10/18 10/10/18 10/10/18 18:27 18:42 18:57 Temperature 98.6 F 98.5 F 98.6 F Pulse Rate 89 88 87 Respiratory 20 20 20 Rate Blood Pressure 120/67 111/62 121/71 O2 Sat by Pulse Oximetry 10/10/18 10/10/18 10/11/18 19:27 20:22 00:00 Temperature 98.7 F 98.6 F 99.1 F Pulse Rate 89 88 88 Respiratory 20 20 20 Rate Blood Pressure 119/67 116/65 127/70 O2 Sat by Pulse 100 Oximetry 10/11/18 08:00 Temperature 99.3 F Pulse Rate 98 H Respiratory 20 Rate Blood Pressure 132/74 O2 Sat by Pulse 100 Oximetry
--- NOTE | 2018-10-11 17:43 | CP.PCM.PN ---
Subjective - Date & Time of Evaluation Date of Evaluation: 10/11/18 Time of Evaluation: 09:20 - Subjective Subjective: Patient seen and examined at bedside, lying down comfortably. Afebrile and in no acute distress. Denies SOB, chest pain, fever/chills, headaches Patient had chemotherapy started 10/07/18 and tolerated well as per Heme-Onc Dr. Bobby. Today is last round of chemotherapy. 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 Traylor catheter was removed yesterday (10/10/18). Objective - Vital Signs/Intake and Output Vital Signs (last 24 hours): Temp Pulse Resp BP Pulse Ox 98 F 88 20 115/70 100 10/11/18 16:00 10/11/18 16:00 10/11/18 16:00 10/11/18 16:00 10/11/18 16:00 Intake and Output: 10/11/18 10/11/18 06:59 18:59 Intake Total 1300 Output Total 700 Balance 600 - Medications Medications: Current Medications Docusate Sodium (Colace) 100 mg PO BID [facility] Last Admin: 10/11/18 11:00 Dose: 100 mg Hydrocortisone (Anusol-Hc) 0 gm [place] BID [facility] Last Admin: 10/11/18 11:03 Dose: 1 % Ondansetron HCl (Zofran Inj) 4 mg IVP DAILY@ONCE PRN PRN Reason: Nausea/Vomiting Pantoprazole Sodium (Protonix Inj) 40 mg IVP DAILY [facility] Last Admin: 10/11/18 11:02 Dose: 40 mg Saccharomyces Boulardii (Florastor) 250 mg PO BID [facility] Last Admin: 10/11/18 11:01 Dose: 250 mg Tamsulosin HCl (Flomax) 0.4 mg PO BID [facility] Last Admin: 10/11/18 11:00 Dose: 0.4 mg - Labs Labs: 10/11/18 09:26 10/11/18 09:26 PT 12.9 SECONDS (9.7-12.2) H 09/28/18 11:39 INR 1.2 09/28/18 11:39 APTT 25 SECONDS (21-34) 09/28/18 11:39 Assessment and Plan (1) Lung mass Status: Acute (2) Pancytopenia Status: Acute (3) Pneumonia Status: Acute
--- NOTE | 2018-10-11 20:45 | PN ---
DATE: 10/11/2018 SUBJECTIVE: This is a 77-year-old gentleman, who has significant voiding dysfunction of only recent onset and gross hematuria. The issue is the patient has new onset malignancy, being followed by Dr. Bobby. His platelet count is less than 10,000. He is currently receiving bright red blood cells for transfusion and from Urology standpoint, he has no baseline urologic issues known. Urology has been consulted and following the patient. Over the weekend, the patient had some trouble with the catheter. Actually, at this point, they removed the catheter. They had spoken to me over the weekend and I recommended to try to change the catheter, but they were unable to ____ a trial void. The patient is currently voiding. We saw some blood-tinged urine, but he is doing much better. Currently, the past medical and surgical history are listed on the chart. MEDICATIONS: Everything is as listed on the chart. The patient is followed by Dr. Bobby from Oncology. PHYSICAL EXAMINATION: GENERAL: A well-developed, well-nourished male, who is currently resting comfortably, actually at his bedside are his two daughters. VITAL SIGNS: Are noted. ABDOMEN: Obviously, no gross obvious distention. The remainder of physical exam is otherwise unremarkable. UROLOGY DIAGNOSIS: Gross hematuria. In this setting, we were trying not to instrument the patient. We are going to try to follow him along, and then make recommendations and plans depending on how he does clinically. From Urology point of view, now just observation, no cystoscopy, no reinsertion of Traylor catheter, and then further plans will follow. Thank you for the Urology consultation and followup. Blayne Mallory MD
--- NOTE | 2018-10-11 22:47 | CP.PCM.PN ---
Subjective - Date & Time of Evaluation Date of Evaluation: 10/11/18 Time of Evaluation: 20:00 - Subjective Subjective: No complaints. Objective - Vital Signs/Intake and Output Vital Signs (last 24 hours): Temp Pulse Resp BP Pulse Ox 98.6 F 88 20 121/61 100 10/11/18 22:05 10/11/18 22:05 10/11/18 22:05 10/11/18 22:05 10/11/18 16:00 Intake and Output: 10/11/18 10/12/18 18:59 06:59 Intake Total 0 Balance 0 - Medications Medications: Current Medications Docusate Sodium (Colace) 100 mg PO BID [facility] Last Admin: 10/11/18 18:00 Dose: 100 mg Hydrocortisone (Anusol-Hc) 0 gm [place] BID [facility] Last Admin: 10/11/18 21:28 Dose: 1 % Ondansetron HCl (Zofran Inj) 4 mg IVP DAILY@ONCE PRN PRN Reason: Nausea/Vomiting Pantoprazole Sodium (Protonix Inj) 40 mg IVP DAILY [facility] Last Admin: 10/11/18 11:02 Dose: 40 mg Saccharomyces Boulardii (Florastor) 250 mg PO BID [facility] Last Admin: 10/11/18 17:59 Dose: 250 mg Tamsulosin HCl (Flomax) 0.4 mg PO BID [facility] Last Admin: 10/11/18 18:00 Dose: 0.4 mg - Labs Labs: 10/11/18 09:26 10/11/18 09:26 PT 12.9 SECONDS (9.7-12.2) H 09/28/18 11:39 INR 1.2 09/28/18 11:39 APTT 25 SECONDS (21-34) 09/28/18 11:39 - Head Exam Head Exam: ATRAUMATIC - Eye Exam Eye Exam: Normal appearance - ENT Exam ENT Exam: Mucous Membranes Dry - Respiratory Exam Respiratory Exam: NORMAL BREATHING PATTERN - Cardiovascular Exam Cardiovascular Exam: +S1, +S2 - GI/Abdominal Exam GI & Abdominal Exam: Normal Bowel Sounds Assessment and Plan (1) AML (acute myeloblastic leukemia) Assessment & Plan: s/p hypomethylating agent treatment for 2U PRBC today in anticipation for D/C repeat decitabine in about 3 weeks Status: Acute (2) Pancytopenia Assessment & Plan: secondary to AML Status: Acute (3) Lung mass Assessment & Plan: no acute intervention Status: Acute
--- NOTE | 2018-10-12 09:39 | CP.PCM.DIS ---
Provider - Provider Date of Admission: 09/28/18 14:59 Attending physician: Andrzej Montoya Jr, MD Consults: 09/28/18 16:45 Critical Care Consult Routine Comment: Consulting Provider: Narendra Thurston Consulting Physician: Narendra Thurston Reason for Consult: low platlet, positve GI bleed 09/28/18 17:03 Hematology Oncology Consult Routine Comment: Consulting Provider: Kartik Bobby Consulting Physician: Kartik Bobby Reason for Consult: pancytopenia 09/28/18 17:53 Gastroenterology Consult Routine Comment: Consulting Provider: Jm Cox Consulting Physician: Jm Cox Reason for Consult: acute anema, hgb 4, fobt positive 10/04/18 13:57 General Surgery Consult Routine Comment: Consulting Provider: Gigi Porter Jr. Consulting Physician: Gigi Porter Jr. Reason for Consult: new onset ventral abd hernia s/p straining 10/04/18 14:50 Urology Consult Routine Comment: Consulting Provider: Kristin Mallory Consulting Physician: Kristin Mallory Reason for Consult: acute urinary retention, pt endorses hx consistent with BPH 10/04/18 19:28 Critical Care Consult Routine Comment: Consulting Provider: Dayton Paulino Consulting Physician: Dayton Paulino Reason for Consult: pneumothorax 10/04/18 19:30 Physician Consult Routine Comment: Consulting Provider: Michael Nunes Consulting Physician: Michael Nunes Reason for Consult: pneumothorax 10/04/18 20:39 Radiology Consult Routine Comment: Consulting Provider: Mark Garrison Consulting Physician: Mark Garrison Reason for Consult: pneumothorax, thrombopenic 10/07/18 07:40 Palliative Care Consult Routine Comment: pancytopenia, 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, decompensating Consulting Provider: Cailin Rockwell Physician Instructions: Reason For Exam: goals of care, code status Time Spent in preparation of Discharge (in minutes): 35 Hospital Course - Lab Results Lab Results: Micro Results 10/01/18 09:00 Other: Please Indicate Mycobacterial Culture - Preliminary 10/05/18 22:29 Other: Please Indicate Mycobacterial Culture - Preliminary 10/05/18 06:06 Nose MRSA Culture (Admit) - Final MRSA NOT DETECTED 10/04/18 22:43 Urine,Catheterized Urine Culture - Final No Growth (<1,000 CFU/ML) 10/03/18 14:03 Other: Please Indicate Mycobacterial Culture - Preliminary 09/28/18 12:54 Blood-Venous Blood Culture - Final NO GROWTH AFTER 5 DAYS 09/28/18 12:54 Blood-Venous Gram Stain - Final TEST NOT PERFORMED 09/28/18 12:33 Blood-Venous Blood Culture - Final NO GROWTH AFTER 5 DAYS 09/28/18 12:33 Blood-Venous Gram Stain - Final TEST NOT PERFORMED 09/29/18 02:35 Sputum Gram Stain - Final 09/29/18 02:35 Sputum Sputum Culture - Final NORMAL ORAL BENIGNO Most Recent Lab Values WBC 1.6 K/uL (4.8-10.8) L* 10/11/18 09:26 RBC 2.93 Mil/uL (4.40-5.90) L 10/11/18 09:26 Hgb 8.2 g/dL (12.0-18.0) L 10/11/18 09:26 Hct 25.4 % (35.0-51.0) L 10/11/18 09:26 MCV 86.9 fL (80.0-94.0) 10/11/18 09:26 MCH 28.2 pg (27.0-31.0) 10/11/18 09:26 MCHC 32.5 g/dL (33.0-37.0) L 10/11/18 09:26 RDW 15.1 % (11.5-14.5) H 10/11/18 09:26 Plt Count 16 K/uL (130-400) L* D 10/11/18 09:26 Manual Plt Count 11 K/uL (130-400) L* D 10/04/18 06:36 MPV 9.6 fL (7.2-11.7) 10/11/18 09:26 Neut % (Auto) 5.8 % (50.0-75.0) L 10/11/18 09:26 Lymph % (Auto) 33.5 % (20.0-40.0) 10/11/18 09:26 [place] % (Auto) 60.6 % (0.0-10.0) H 10/11/18 09:26 Eos % (Auto) 0.1 % (0.0-4.0) 10/11/18 09:26 Baso % (Auto) 0.0 % (0.0-2.0) 10/11/18 09:26 Neut # (Auto) 0.1 K/uL (1.8-7.0) L 10/11/18 09:26 Lymph # (Auto) 0.5 K/uL (1.0-4.3) L 10/11/18 09:26 [place] # (Auto) 1.0 K/uL (0.0-0.8) H 10/11/18 09:26 Eos # (Auto) 0.0 K/uL (0.0-0.7) 10/11/18 09:26 Baso # (Auto) 0.0 K/uL (0.0-0.2) 10/11/18 09:26 Neutrophils % (Manual) 13 % (50-75) L 10/11/18 09:26 Band Neutrophils % 1 % (0-2) 10/08/18 08:29 Lymphocytes % (Manual) 26 % (20-40) 10/11/18 09:26 Reactive Lymphs % 1 % (0-0) H 10/07/18 05:45 Monocytes % (Manual) 61 % (0-10) H 10/11/18 09:26 Nucleated RBC % 1 % (0-0) H 10/10/18 22:02 Platelet Estimate Markedly decreased (NORMAL) L 10/11/18 09:26 Large Platelets Present 10/09/18 07:20 Giant Platelets Present 10/08/18 08:29 Polychromasia Slight 10/11/18 09:26 Hypochromasia (manual) Slight 10/11/18 09:26 Poikilocytosis (manual Slight 10/10/18 22:02 Anisocytosis (manual) Slight 10/11/18 09:26 Microcytosis (manual) Slight 10/11/18 09:26 Macrocytosis (manual) Slight 10/04/18 06:36 Spherocytes Slight 10/03/18 06:19 Target Cells Slight 10/05/18 06:05 Tear Drop Cells Slight 10/10/18 22:02 Ovalocytes Slight 10/11/18 09:26 Helmet Cells Slight 10/06/18 05:46 Terry Cells Slight 10/10/18 22:02 Acanthocytes (Spur) Slight 10/06/18 05:46 Schistocytes Slight 10/09/18 07:20 Smear Path Review 09/28/18 12:10 ESR 58 mm/hr (0-15) H 09/29/18 02:30 Retic Count 2.1 % (0.5-1.5) H 09/29/18 02:30 PT 12.9 SECONDS (9.7-12.2) H 09/28/18 11:39 INR 1.2 09/28/18 11:39 APTT 25 SECONDS (21-34) 09/28/18 11:39 Fibrinogen 380 mg/dL (200-400) 09/29/18 02:30 D-Dimer, Quantitative 1375 ng/mlDDU (0-243) H 09/28/18 11:39 Sodium 136 mmol/L (132-148) 10/11/18 09:26 Potassium 3.6 mmol/L (3.6-5.2) 10/11/18 09:26 Chloride 100 mmol/L (98-107) 10/11/18 09:26 Carbon Dioxide 28 mmol/L (22-30) 10/11/18 09:26 Anion Gap 12 (10-20) 10/11/18 09:26 BUN 21 mg/dL (9-20) H 10/11/18 09:26 Creatinine 1.0 mg/dL (0.8-1.5) 10/11/18 09:26 Est GFR ( Amer) > 60 10/11/18 09:26 Est GFR (Non-Af Amer) > 60 10/11/18 09:26 POC Glucose (mg/dL) 164 mg/dL (65-110) H 10/04/18 11:33 Random Glucose 194 mg/dL (75-110) H 10/11/18 09:26 Calcium 8.4 mg/dl (8.6-10.4) L 10/11/18 09:26 Phosphorus 3.5 mg/dL (2.5-4.5) 10/11/18 09:26 Magnesium 1.8 mg/dL (1.6-2.3) 10/11/18 09:26 Iron 111 ug/dL (49-181) 09/29/18 02:30 TIBC 177 ug/dL (250-450) L 09/29/18 02:30 % Saturation 63 (20-55) H 09/29/18 02:30 Ferritin 274.0 ng/mL 09/29/18 02:30 Total Bilirubin 0.4 mg/dL (0.2-1.3) 10/11/18 09:26 AST 28 U/L (17-59) 10/11/18 09:26 ALT 19 U/L (21-72) L 10/11/18 09:26 Alkaline Phosphatase 79 U/L (38-126) 10/11/18 09:26 Lactate Dehydrogenase 635 U/L (313-618) H 09/29/18 02:30 Troponin I 0.0150 ng/mL (0.00-0.120) 09/28/18 11:39 NT-Pro-B Natriuret Pep 7130 pg/mL (0-900) H 10/03/18 13:37 Total Protein 5.9 g/dL (6.3-8.3) L 10/11/18 09:26 Albumin 2.6 g/dL (3.5-5.0) L 10/11/18 09:26 Globulin 3.3 gm/dL (2.2-3.9) 10/11/18 09:26 Albumin/Globulin Ratio 0.8 (1.0-2.1) L 10/11/18 09:26 Prostate Specific Ag 3.69 ng/mL (0.00-4.0) 10/05/18 06:03 Vitamin B12 > 1000 pg/mL (239-931) H 09/30/18 08:43 Folate 7.7 ng/mL 09/29/18 02:30 Procalcitonin 0.11 NG/ML (0.19-0.49) L 10/01/18 17:16 TSH 3rd Generation 0.76 mIU/L (0.46-4.68) 09/30/18 08:43 Urine Color Yellow (YELLOW) 09/28/18 15:54 Urine Clarity Clear (Clear) 09/28/18 15:54 Urine pH 5.0 (5.0-8.0) 09/28/18 15:54 Ur Specific [place] 1.033 (1.003-1.030) H 09/28/18 15:54 Urine Protein Negative mg/dL (NEGATIVE) 09/28/18 15:54 Urine Glucose (UA) Normal mg/dL (Normal) 09/28/18 15:54 Urine Ketones Trace mg/dL (NEGATIVE) 09/28/18 15:54 Urine Blood Negative (NEGATIVE) 09/28/18 15:54 Urine Nitrate Negative (NEGATIVE) 09/28/18 15:54 Urine Bilirubin Negative (NEGATIVE) 09/28/18 15:54 Urine Urobilinogen Normal mg/dL (0.2-1.0) 09/28/18 15:54 Ur Leukocyte Esterase Neg Michael/uL (Negative) 09/28/18 15:54 Urine WBC (Auto) 1 /hpf (0-5) 09/28/18 15:54 Urine RBC (Auto) 1 /hpf (0-3) 09/28/18 15:54 Ur Squamous Epith Cells < 1 /hpf (0-5) 09/28/18 15:54 Granular Casts (Auto) 2 /lpf (0-1) 09/28/18 15:54 Stool Occult Blood Positive (NEGATIVE) H 09/28/18 14:32 C. difficile Ag & Toxin Negative (NEGATIVE) 10/04/18 15:08 Hepatitis A IgM Ab Negative (NEGATIVE) 09/29/18 10:00 Hep Bs Antigen Negative (NEGATIVE) 09/29/18 10:00 Hep B Core IgM Ab Negative (NEGATIVE) 09/29/18 10:00 Hepatitis C Antibody Negative (NEGATIVE) 09/29/18 10:00 HIV 1&2 Antibody Screen Negative (NEGATIVE) 09/29/18 02:30 Ur L.pneumophila Ag Negative (NEGATIVE) 10/01/18 17:16 Mycobacterial Culture See note 09/28/18 10:41 Ur Strep pneumoniae Ag Not detected (Not Detected) 09/28/18 08:22 TB Test (QFT) Nil 0.06 IU/mL 09/29/18 08:03 TB Test Mitogen - Nil 8.82 IU/mL 09/29/18 08:03 TB Test TB - Nil 0.12 IU/mL 09/29/18 08:03 TB Test (QFT) Negative (Negative) 09/29/18 08:03 Blood Type B POSITIVE 10/11/18 15:04 Blood Type Confirm B POSITIVE 09/28/18 11:39 Antibody Screen Negative 10/11/18 15:04 - Hospital Course Hospital Course: On admission: 77y M w/ no PMHx presented to ED following referral by PMD for low Hgb. Pt states he has been feeling weak and fatigue for the past couple of weeks. It has slowly increased in intensity that prompted a visit to his PMD. Patient had blood work performed yesterday and was notified today that he should come to the ED for low Hgb. Patient states he has had normal 1 to 2 normal bowel movements per day, with no dark tarry or bloody stools present. Patient admits to a approximately 5 lb weight loss over the past week with a decreased sense of appetite. Additionally patient denies any nausea or vomiting. Patient states he has had a dry, non productive cough for the past couple of weeks associated with subjective fevers and chills. After taking OTC cold medication, patient admits to resolution of the symptoms. Patient denies chest pain, abdominal pain, nausea, vomiting, SOB, headaches, vision changes, diarrhea, constipation. Hospital course: Pt was admitted to the ICU. He was noted to be severely pancytopenic with anemia requiring PLT and pRBC transfusions. Dr. Thurston, Pulmonology, was consulted due to findings on Chest CT concerning for malignancy, and possible TB. Airborne precautions were taken, but discontinued when quantiferon was negative and AFB stains x2 were negative. Dr. Bobby, hematology/oncology, was consulted for pancytopenia and possibility of malignancy. Dr. Cox, gastroenterology, was consulted due to positive FOBT and anemia but determined that pt did not need an endoscopy due to pancytopenia being cause of positive FOBT and anemia. 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 10/04, pt noted to be in acute abdominal pain caused by prolonged straining. Dr. Porter, general surgery, was consulted due to possible hernia. Pt found to be in urinary retention and pain was relieved by wolff catheter insertion. Dr. Norma Mallory, urology, was consulted for urinary retention and pt was started on flomax. However, on abd/pelv ct, and further redemonstrated on chest CT, pt was noted to have 35% pneumothorax and was transferred back to ICU. Dr. Murguia, cardiothoracic surgery, was consulted for possible chest tube but it was decided that no intervention was needed as pt's pneumothorax spontaneously resolved. He was transferred back to the regular floor. Pt underwent 5 rounds of Decitabine, which was well tolerated. During his hospitalization, pt was transfused a total of 7 units of PLTs and 4 units of pRBCs. Pt will be transferred to [facility]. On discharge, pt has no complaints. He was started on low dose lisinopril, lasix, and flomax during his hospitalization which will be continued upon discharge. Pt will require future treatment with Decitabine as per Dr. Bobby. Images: Chest CT: Emphysematous changes. Biapical pleural thickening. Bilateral upper lobe bulla. Abnormal right upper lobe spiculated/irregular opacities possibly malignant neoplasm or consolidation such as pneumonia. Calcifications are evident in this region, as are ground-glass opacities and bronchiectasis. Yvonne dence of chronic interstitial fibrosis. Small bilateral pleural effusions and dependent atelectasis. No pneumothorax. Nodular opacities measuring approximately 6 mm in the left upper lobe (series 4, image 34) and 3 mm in the lingula (64). More localized ground-glass opacities noted in the left lower lobe (image 75). Limited visualized portions of the upper abdomen: Bilateral adrenal gland hypertrophy. Small hiatal hernia/distal esophageal wall thickening. No large central or segmental pulmonary embolus identified. Correlate with clinical status. Nodular opacities measuring approximately 6 mm in the left upper lobe and 3 mm in the lingula. More localized ground-glass rounded opacity noted in the left lower lobe. Recommend further evaluation with biopsy, PET- CT, or follow-up CT at 3 months, and 9 months, and [address] (10/06): Diminished left pneumothorax with very mild residual noted. None identified at the right. Stable mild right pleural effusion. Slightly increased moderate left pleural effusion evident. Compression atelectasis affects the bilateral lower lobes. Mild COPD pattern reiterated with stable right apical partially calcified fibrotic changes evident once again. Chest CT (10/04): Interval appearance of approximately 35 percent left-sided pneumothorax since the previous exam. Repeat chest CT (10/06): Diminished left pneumothorax with very mild residual noted. No right PTX. Stable mild right pleural effusion. Slightly increased mod. left pleural effusion evident. Compression atelactasis bilateral lobes. Mild COPD, with stable right apical partially calcified fibrotic changes evident once again. (see full report) Abd/Pelv CT (10/04): New left pneumothorax which is incompletely visualized. Abd/Pelv CT (09/29): Small bilateral pleural effusion. Bilateral lower lobe minimal compressive atelectasis. Multiple hepatic masses, possible hemangiomas. Evaluation with multiphasic contrast-enhanced CT or gadolinium enhanced magnetic resonance imaging is advised. Mild ascites common nonspecific. Small nonspecific low-density right upper pole renal mass, likely cyst. Scattered sclerotic osseous foci common nonspecific. Echo (09/28) shows LVEF of 36%, diastolic dysfunction. Trace MR. Mild TR. Small pericardial effusion. Chest CT (09/28): No large central or segmental pulmonary embolus identified. Abnormal appearance of the right upper lobe as described above. Recommend comparison to prior outside imaging. Malignant neoplasm or pneumonia remain considerations. Correlate with clinical status. Nodular opacities measuring approximately 6 mm in the left upper lobe and 3 mm in the lingula. More localized ground-glass rounded opacity noted in the left lower lobe. Recommend further evaluation with biopsy, PET- CT, or follow-up CT at 3 months, and 9 months, and 24 months. Evidence of prior granulomatous infection. Evidence of chronic interstitial fibrosis. Bilateral adrenal gland hypertrophy. 4 mm T11 vertebral body sclerotic focus, possibly bone island. CXR (09/28): Right upper lobe traction bronchiectasis with the probable granulomatous disease. Concomitant right pleural parenchymal pathology here suggested-infiltrate, mass, scar or combination of the above are considerations. Consider CT for further evaluation This is a summary of the hospital course, please see EMR for full details. Discharge Exam - Additional Findings Additional findings: - Constitutional Appears: No Acute Distress, Cachectic, Chronically Ill - Head Exam Head Exam: ATRAUMATIC, NORMAL INSPECTION - Eye Exam Eye Exam: EOMI, Normal appearance - ENT Exam ENT Exam: Mucous Membranes Moist. (+) dried blood in left nostril; no active bleeding - Respiratory Exam Respiratory Exam: Clear to Ausculation Bilateral, NORMAL BREATHING PATTERN, no respiratory distress - Cardiovascular Exam Cardiovascular Exam: REGULAR RHYTHM, +S1, +S2 - GI/Abdominal Exam GI & Abdominal Exam: Soft, Normal Bowel Sounds. absent: Tenderness, distension, rigidity, guarding - Extremities Exam Extremities Exam: Normal Inspection - Neurological Exam Neurological Exam: Alert, Awake, Oriented x3 - Psychiatric Exam Psychiatric exam: Normal Affect - Skin Skin Exam: (+) multiple old healing scattered ecchymoses Discharge Plan - Follow Up Plan Condition: FAIR Disposition: TRANSF TO SNF Instructions: Acute Myeloid Leukemia (AML), Decitabine, Pneumonia, Adult (DC), Lung Abscess, Anemia of Chronic Disease (DC), Bleeding Precautions Additional Instructions: Follow up with Dr Bobby in one week Follow up with primary Physician in 1 week
[2018-10-12] MEDS: Hydrocortisone 2.5% Rectal Cream(30 gm) PR SCH ×2 (10:50→18:20)
[2018-10-12] MEDS: Saccharomyces Boulardi 250 mg Cap PO SCH ×2 (10:52→18:20)
[2018-10-12] MEDS: Pantoprazole 40 mg EC Tab PO SCH (10:53)
[2018-10-12 11:25] LABS: LYMPH # 0.6 K/uL (1.0-4.3); LYMPH % 36.4 % (20.0-40.0); MEAN CORPUSCULAR HEMOGLOBIN 27.8 pg (27.0-31.0); MEAN CORPUSCULAR HGB CONC 32.3 g/dL (33.0-37.0); MEAN PLATELET VOLUME 11.1 fL (7.2-11.7); MONO % 61.5 % (0.0-10.0); NEUT % 2.1 % (50.0-75.0); NRBC % 1.8 % (0.0-2.0); RBC 3.76 Mil/uL (4.40-5.90); RED CELL DISTRIBUTION WIDTH 15.4 % (11.5-14.5)
[2018-10-12 11:31] LABS: PLATELET COUNT 9 K/uL (130-400); WHITE BLOOD COUNT 1.6 K/uL (4.8-10.8)
[2018-10-12 11:32] LABS: HEMOGLOBIN 10.4 g/dL (12.0-18.0)
[2018-10-12 11:35] LABS: ALB/GLOB RATIO 0.8 (1.0-2.1); ALBUMIN 2.7 g/dL (3.5-5.0); ALT/SGPT 28 U/L (21-72); AST/SGOT 31 U/L (17-59); BLOOD UREA NITROGEN 21 mg/dL (9-20); CALCIUM 8.3 mg/dl (8.6-10.4); GFR NON-AFRICAN AMERICAN > 60
[2018-10-12 12:19] LABS: LYMPHOCYTE 35 % (20-40); MONOCYTE 56 % (0-10); NEUTROPHIL 9 % (50-75); TOTAL CELLS COUNTED 100
[2018-10-12 12:20] LABS: PLATELET ESTIMATE MARKEDLY DECREASED (NORMAL)
[2018-10-12 12:23] LABS: ANISOCYTOSIS SLIGHT
[2018-10-12 12:24] LABS: HYPOCHROMIC SLIGHT; OVALOCYTES SLIGHT; POLYCHROMIC SLIGHT
--- NOTE | 2018-10-12 15:30 | CP.PCM.PN ---
Subjective - Date & Time of Evaluation Date of Evaluation: 10/12/18 Time of Evaluation: 15:29 - Subjective Subjective: PGY-1 Medicine progress note for Dr. Montoya's service Patient was seen and examined at bedside. Patient is resting comfortably in bed. Pt reports continuing improvement of hematuria. Patient denies fever, chills, chest pain, shortness of breath, abdominal pain, n/v/d, hematochezia, melena, dizziness, lightheadedness, penile discharge, dysuria, hemoptysis, or any other acute bleeding. Objective - Vital Signs/Intake and Output Vital Signs (last 24 hours): Temp Pulse Resp BP Pulse Ox 98.4 F 86 20 131/70 98 10/12/18 04:42 10/12/18 04:42 10/12/18 04:42 10/12/18 10:52 10/12/18 00:00 Intake and Output: 10/12/18 10/12/18 06:59 18:59 Intake Total 1850 Output Total 650 Balance 1200 - Medications Medications: Current Medications Docusate Sodium (Colace) 100 mg PO BID [facility] Last Admin: 10/12/18 10:52 Dose: 100 mg Furosemide (Lasix) 20 mg PO DAILY [facility] Last Admin: 10/12/18 10:52 Dose: 20 mg Hydrocortisone (Anusol-Hc) 0 gm NM BID [facility] Last Admin: 10/12/18 10:50 Dose: 1 % Lisinopril (Zestril) 5 mg PO DAILY [facility] Last Admin: 10/12/18 10:52 Dose: 5 mg Ondansetron HCl (Zofran Inj) 4 mg IVP DAILY@ONCE PRN PRN Reason: Nausea/Vomiting Pantoprazole Sodium (Protonix Ec Tab) 40 mg PO DAILY [facility] Last Admin: 10/12/18 10:53 Dose: 40 mg Saccharomyces Boulardii (Florastor) 250 mg PO BID [facility] Last Admin: 10/12/18 10:52 Dose: 250 mg Tamsulosin HCl (Flomax) 0.4 mg PO BID [facility] Last Admin: 10/12/18 10:52 Dose: 0.4 mg - Labs Labs: 10/12/18 11:05 10/12/18 11:05 PT 12.9 SECONDS (9.7-12.2) H 09/28/18 11:39 INR 1.2 09/28/18 11:39 APTT 25 SECONDS (21-34) 09/28/18 11:39 - Additional Findings Additional findings: - Constitutional Appears: No Acute Distress, Cachectic, Chronically Ill - Head Exam Head Exam: ATRAUMATIC, NORMAL INSPECTION - Eye Exam Eye Exam: EOMI, Normal appearance - ENT Exam ENT Exam: Mucous Membranes Moist - Respiratory Exam Respiratory Exam: Clear to Ausculation Bilateral, NORMAL BREATHING PATTERN - Cardiovascular Exam Cardiovascular Exam: REGULAR RHYTHM, +S1, +S2 - GI/Abdominal Exam GI & Abdominal Exam: Soft, Normal Bowel Sounds. absent: Tenderness, distension, rigidity, guarding - Extremities Exam Extremities Exam: Normal Inspection - Neurological Exam Neurological Exam: Alert, Awake, Oriented x3 - Psychiatric Exam Psychiatric exam: Normal Affect - Skin Skin Exam: Normal Color, multiple old healing scattered ecchymoses Assessment and Plan - Assessment and Plan (Free Text) Assessment: 77 y M w/ no PMHx: presents to ED for weakness, in ED found to be pancytopenic. 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 Plan: Hematuria/Retained Urine; likely secondary to wolff placement - Wolff was clogged due to blood clots - Discussed with covering urologist, Dr. Alyson Mallory. 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 - s/p fourth hypomethylating infusion; well tolerated Management as per Dr. Bobby - Heme/Onc, Dr. bobby, consulted Per flow cytometery on bone marrow biopsy specimen (10/04); appears non M3 Awaiting further testing Not a candidate for induction chemotherapy given age and poor performance status Will attempt treatment with decitabine as inpatient if administration consents Transfusion support, neutropenic precaution Discussed results with the patient and his family - WBC 2.8, Hgb 4.6, Plt 13 on admission Peripheral smear shows moderate teardrop cells possible myelofibrosis - 10/01 transfused one unit of PLTs - 10/05 transfused two units of PLTs - 10/08 transfused one unit of PLTs - 10/10 transfused one unit of PLTs - 10/11 transfused 2 units of pRBCs - H/H is stable, but with pancytopenia Goal plt > 10,000 and hgb > [address] Bobby (10/06) - HIV is negative - Hep panel is normal - Palliative care nurse, Cailin, consulted for discussions of goals of care - PLT count is 9 today, will transfuse 2 units of PLTs Left pneumothorax, resolving - Repeat chest CT (10/06): Diminished left pneumothorax with very mild residual noted. No right PTX. Stable mild right pleural effusion. Slightly increased mod. left pleural effusion evident. Compression atelactasis bilateral lobes. Mild COPD, with stable right apical partially calcified fibrotic changes evident once again. (see full report) - CT chest (10/04): Interval appearance of approximately 35 percent left-sided pneumothorax since the previous exam. - IR consulted, Dr. Garrison No intervention planned at this time D/T improvement and patient stability Medical management per primary - CT surgery, Dr. Murguia, has been consulted Pneumothorax resolving. Currently, risks exceed benefits of chest tube placement. No surgical intervention at this time. - currently hemodynamically stable, keep SpO2>92%. Lung mass, dry cough and night sweats, active TB has been ruled out - airborne precautions discontinued - Sputum culture: Negative X 2 - Quantiferon test: negative - CXR as above - Chest CT as below - discontinue Rocephin and Azithromycin - Pulmonology, Dr. Thurston, consulted, recs appreciated - Blood cultures x2 negative for 5 days COPD, secondary to long history of smoking - CT: Emphysematous changes. Biapical pleural thickening. Bilateral upper lobe bulla. Abnormal right upper lobe spiculated/irregular opacities possibly malignant neoplasm or consolidation such as pneumonia. Calcifications are evident in this region, as are ground-glass opacities and bronchiectasis. Evidence of chronic interstitial fibrosis. Small bilateral pleural effusions and dependent atelectasis. No pneumothorax. Nodular opacities measuring approximately 6 mm in the left upper lobe (series 4, image 34) and 3 mm in the lingula (64). More localized ground-glass opacities noted in the left lower lobe (image 75). Limited visualized portions of the upper abdomen: Bilateral adrenal gland hypertrophy. Small hiatal hernia/distal esophageal wall thickening. No large central or segmental pulmonary embolus identified. Correlate with clinical status. Nodular opacities measuring approximately 6 mm in the left upper lobe and 3 mm in the lingula. More localized ground-glass rounded opacity noted in the left lower lobe. Recommend further evaluation with biopsy, PET- CT, or follow-up CT at 3 months, and 9 months, and 24 months. - CXR: Right upper lobe traction bronchiectasis with the probable granulomatous disease. Concomitant right pleural parenchymal pathology here suggested- infiltrate, mass, scar or combination of the above are considerations. - duonebs Q6H prn - Pulmonology, Dr. Thurston, on board Systolic and diastolic heart failure - Echo (09/28) shows LVEF of 36%, diastolic dysfunction. Trace MR. Mild TR. Small pericardial effusion. - continue to monitor Positive FOBT - Hgb is stable - protonox 40mg PO daily - GI Dr. Cox recs: likely aplastic, no endoscopy at this time, correct thrombocytopenia BPH - hx of urinary retention during hospital stay, requiring wolff catheter insertion Wolff DC'd 10/10 - Tamsulosin 0.4 mg PO daily - Urology, Dr. Norma Mallory - PSA is wnl, urine cx is negative for growth LBBB - AEKG reveals LBBB, unsure if new onset - remains asymptomatic - will monitor Prophylaxis - VTE ppx CI due to thrombocytopenia and anemia - GI: protonix 40 mg IVP - Regular diet Dispo: Newly diagnosed AML. Pt wishes Full Code and all necessary measures to support life. AML management per Doctor Diamante. Monitor for side effects of AML treatment, manage chronic medical conditions. Encourage OOB. Pt accepted to [facility], potential discharge to [facility] tomorrow. Will receive 2 units of PLTs today. Patient is full code. Case discussed with Dr. Montoya, all medical management as per Dr. Lindsay Soares PGY1
[2018-10-12 16:11] LABS: TOTAL PSA 2.2 ng/mL (< or = 4.0)
[2018-10-12] MEDS ORDERED: Sodium Chloride Nasal 0.65% Soln (30ml) NAS PRN (18:58)
--- NOTE | 2018-10-12 21:39 | CP.PCM.PN ---
Subjective - Date & Time of Evaluation Date of Evaluation: 10/12/18 Time of Evaluation: 19:00 - Subjective Subjective: Feeling better Objective - Vital Signs/Intake and Output Vital Signs (last 24 hours): Temp Pulse Resp BP Pulse Ox 97.9 F 89 18 115/64 98 10/12/18 18:51 10/12/18 18:51 10/12/18 18:51 10/12/18 18:51 10/12/18 15:00 Intake and Output: 10/12/18 10/13/18 18:59 06:59 Intake Total 400 Balance 400 - Medications Medications: Current Medications Docusate Sodium (Colace) 100 mg PO BID [facility] Last Admin: 10/12/18 18:19 Dose: 100 mg Furosemide (Lasix) 20 mg PO DAILY [facility] Last Admin: 10/12/18 10:52 Dose: 20 mg Hydrocortisone (Anusol-Hc) 0 gm PA BID [facility] Last Admin: 10/12/18 18:20 Dose: 1 applic Lisinopril (Zestril) 5 mg PO DAILY [facility] Last Admin: 10/12/18 10:52 Dose: 5 mg Ondansetron HCl (Zofran Inj) 4 mg IVP DAILY@ONCE PRN PRN Reason: Nausea/Vomiting Pantoprazole Sodium (Protonix Ec Tab) 40 mg PO DAILY [facility] Last Admin: 10/12/18 10:53 Dose: 40 mg Saccharomyces Boulardii (Florastor) 250 mg PO BID [facility] Last Admin: 10/12/18 18:20 Dose: 250 mg Sodium Chloride (Alba Baby Saline 30 Ml) 1 ml YEFRI Q4H PRN PRN Reason: Nasal congestion Last Admin: 10/12/18 19:48 Dose: 1 spr Tamsulosin HCl (Flomax) 0.4 mg PO BID [facility] Last Admin: 10/12/18 18:20 Dose: 0.4 mg - Labs Labs: 10/12/18 11:05 10/12/18 11:05 PT 12.9 SECONDS (9.7-12.2) H 09/28/18 11:39 INR 1.2 09/28/18 11:39 APTT 25 SECONDS (21-34) 09/28/18 11:39 - Head Exam Head Exam: ATRAUMATIC - Eye Exam Eye Exam: Normal appearance - ENT Exam ENT Exam: Mucous Membranes Dry - Respiratory Exam Respiratory Exam: NORMAL BREATHING PATTERN - Cardiovascular Exam Cardiovascular Exam: +S1, +S2 - GI/Abdominal Exam GI & Abdominal Exam: Normal Bowel Sounds Assessment and Plan (1) AML (acute myeloblastic leukemia) Assessment & Plan: s/p decitabine x 5 days tolerated well s/p 2U PRBC and 2 bag platelets outpatient f/u 1-2 weeks Status: Acute (2) Pancytopenia Assessment & Plan: secondary to AML Status: Acute (3) Lung mass Assessment & Plan: supportive care Status: Acute
[2018-10-13 01:44] VITALS: RESP 20
[2018-10-13 04:16] VITALS: PULSE 88
[2018-10-13 08:11] VITALS: BP 135/80; TEMP 98.1; O2SAT 97
[2018-10-13 08:20] LABS: HEMOGLOBIN 10.8 g/dL (12.0-18.0); LYMPH # 0.6 K/uL (1.0-4.3); LYMPH % 44.2 % (20.0-40.0); MEAN CELL VOLUME 85.6 fL (80.0-94.0); MEAN CORPUSCULAR HEMOGLOBIN 28.5 pg (27.0-31.0); MEAN CORPUSCULAR HGB CONC 33.3 g/dL (33.0-37.0); MEAN PLATELET VOLUME 8.7 fL (7.2-11.7); MONO # 0.6 K/uL (0.0-0.8); MONO % 43.5 % (0.0-10.0); NEUT # 0.2 K/uL (1.8-7.0); NEUT % 12.3 % (50.0-75.0); PLATELET COUNT 38 K/uL (130-400); RBC 3.78 Mil/uL (4.40-5.90)
[2018-10-13 08:28] LABS: WHITE BLOOD COUNT 1.4 K/uL (4.8-10.8)
[2018-10-13 08:45] LABS: ALB/GLOB RATIO 0.9 (1.0-2.1); ALBUMIN 3.1 g/dL (3.5-5.0); ALT/SGPT 26 U/L (21-72); AST/SGOT 29 U/L (17-59); BLOOD UREA NITROGEN 22 mg/dL (9-20); CALCIUM 8.9 mg/dl (8.6-10.4); GFR NON-AFRICAN AMERICAN > 60
[2018-10-13 08:54] LABS: LYMPHOCYTE 31 % (20-40); MONOCYTE 43 % (0-10); NEUTROPHIL 26 % (50-75); TOTAL CELLS COUNTED 100
[2018-10-13 08:55] LABS: ANISOCYTOSIS SLIGHT; HYPOCHROMIC SLIGHT; PLATELET ESTIMATE DECREASED (NORMAL); POLYCHROMIC SLIGHT
[2018-10-13] MEDS: Pantoprazole 40 mg EC Tab PO SCH (10:10)
[2018-10-13] MEDS: Saccharomyces Boulardi 250 mg Cap PO SCH (10:11)
[2018-10-13] MEDS: Hydrocortisone 2.5% Rectal Cream(30 gm) PR SCH (10:12)
== END 2018-10-13 14:57 | DRG 834 ==
LOC: C.ER 11:08 → C.9E 14:59 → C.6T 15:38 → C.9I 10-04 22:57 → C.3T 10-07 12:15
PROVIDERS: ADMIT Internal Medicine; ATTEND Internal Medicine
PROC: 30233N1 Transfusion of Nonautologous Red Blood Cells into Peripheral Vein, Percutaneous Approach (ICD-10-PCS; 2018-09-28)
PROC: 6A551Z2 Pheresis of Platelets, Multiple (ICD-10-PCS; 2018-09-29)
PROC: 07DR3ZX Extraction of Iliac Bone Marrow, Percutaneous Approach, Diagnostic (ICD-10-PCS; principal; 2018-10-01)
DX: C92.00 Acute myeloblastic leukemia, not having achieved remission (principal); D61.818 Other pancytopenia; J18.9 Pneumonia, unspecified organism; J93.83 Other pneumothorax; J98.11 Atelectasis; J44.0 Chronic obstructive pulmonary disease with (acute) lower respiratory infection; J47.0 Bronchiectasis with acute lower respiratory infection; D68.9 Coagulation defect, unspecified; R18.8 Other ascites; I50.40 Unspecified combined systolic (congestive) and diastolic (congestive) heart failure; J84.10 Pulmonary fibrosis, unspecified; I44.7 Left bundle-branch block, unspecified; R31.0 Gross hematuria; N40.1 Benign prostatic hyperplasia with lower urinary tract symptoms; N28.89 Other specified disorders of kidney and ureter; K22.9 Disease of esophagus, unspecified; K44.9 Diaphragmatic hernia without obstruction or gangrene; D71 Functional disorders of polymorphonuclear neutrophils; R33.8 Other retention of urine; Z51.5 Encounter for palliative care; Z78.9 Other specified health status; Z87.891 Personal history of nicotine dependence

== ENCOUNTER 2018-10-22 06:35 | Inpatient (IN) | payer MEDICARE ==
[2018-10-22 06:35] VITALS: BMI 15.3
[2018-10-22] MEDS ORDERED: Sodium Chloride 0.9% 1,000 ML IV ONE (06:46)
--- NOTE | 2018-10-22 06:46 | C.PDOC ---
History Of Present Illness 77 year old male presents to the ED for evaluation. Patient was going for outpatient blood transfusion. Patient was recently admitted to the Hospital for lung mass ad low blood count. While having near syncopal episodes and feeling weak. While waiting for transfusion patient had near syncopal episode while in the hair and was brought to the ED for evaluation. Patient denies fever, chills, nausea, vomit, CP, SOB. Time Seen by Provider: 10/22/18 06:46 Chief Complaint (Nursing): Syncope History Per: Patient History/Exam Limitations: no limitations Onset/Duration Of Symptoms: Hrs Current Symptoms Are (Timing): Still Present Number Of Syncopal Episodes: 1 Associated Symptoms Preceding Syncopal Episode: No Predromal Symptoms (Sudden Onset) Seizure Or Post-ictal Symptoms: None Possible Causative Factor(s): Vertigo Fall Associated With With Symptoms: No Recent travel outside of the [place]: No Additional History Per: Patient, Family - Symptoms Of CVA Recent Aspirin Use: No Current Coumadin Use?: No Recent Head Trauma: No Past Medical History Reviewed: Historical Data, Nursing Documentation, Vital Signs Vital Signs: Last Vital Signs Temp 97.7 F 10/22/18 06:37 Pulse 88 10/22/18 06:37 Resp 18 10/22/18 06:37 BP 106/21 L 10/22/18 06:37 Pulse Ox 99 10/22/18 06:37 - Medical History PMH: No Chronic Diseases Surgical History: No Surg Hx - [facility] Procedures EXTRACTION OF ILIAC BONE MARROW, PERC APPROACH, DIAGN (09/28/18) PHERESIS OF PLATELETS, MULTIPLE (09/28/18) TRANSFUSE NONAUT RED BLOOD CELLS IN PERIPH VEIN, PERC (09/28/18) Family History: States: Unknown Family Hx - Social History Hx Alcohol Use: No Hx Substance Use: No - Immunization History Hx Tetanus Toxoid Vaccination: No Hx Influenza Vaccination: No Hx Pneumococcal Vaccination: No Review Of Systems Constitutional: Negative for: Fever, Chills Cardiovascular: Negative for: Chest Pain Respiratory: Negative for: Shortness of Breath Gastrointestinal: Negative for: Nausea, Vomiting, Abdominal Pain Skin: Negative for: Rash Neurological: Positive for: Weakness. Negative for: Headache Physical Exam - Physical Exam Appears: Non-toxic, In Acute Distress Skin: Warm, Dry, Pale Head: Normacephalic Eye(s): bilateral: Normal Inspection, Conjunctiva Pale Oral Mucosa: Moist Neck: Supple Chest: Symmetrical Cardiovascular: Rhythm Regular Respiratory: No Rales, No Rhonchi, No Wheezing Gastrointestinal/Abdominal: Soft, No Tenderness, No Guarding, No Rebound Rectal: Other (near empty vault, questionable bright red blood) Back: Normal Inspection Extremity: Normal ROM Extremity: Bilateral: Atraumatic, Normal ROM, Other (ecchymosis in arms) Neurological/Psych: Oriented x3, Normal Speech, Normal Cognition Gait: Unable To Assess ED Course And Treatment ECG: Interpreted By Me, Viewed By Me ECG Rhythm: Sinus Rhythm (86), Nonspecific Changes (ivcd) O2 Sat by Pulse Oximetry: 99 (ON RA) Pulse Ox Interpretation: Normal Progress Note: Plan: - Labs. - EKG. - CXR. - Protonix 40 mg IVP. - IV fluids Disposition Counseled Patient/Family Regarding: Studies Performed, Diagnosis - Disposition Disposition Time: 06:46 Condition: FAIR Forms: [employer] (Icelandic) - Clinical Impression Clinical Impression: Syncope, GI bleed - Scribe Statement The provider has reviewed the documentation as recorded by the Scribe Chuy Hester All medical record entries made by the Scribe were at my direction and personally dictated by me. I have reviewed the chart and agree that the record accurately reflects my personal performance of the history, physical exam, medical decision making, and the department course for this patient. I have also personally directed, reviewed, and agree with the discharge instructions and disposition. Physician Patient Turnover Patient Signed Over To: Leah Ulloa Handoff Comments: pending labs, re-eval and dispo Decision To Admit - . Patient Diagnosis: GI bleed, Syncope
--- NOTE | 2018-10-22 07:13 | PCM.RRT ---
<Luisana Espinoza - Last Filed: 10/22/18 07:33> SHOE REPAIR SUPERVISOR Nurses Assessment - Situation Date: 10/22/18 Time SHOE REPAIR SUPERVISOR was called: 06:17 SHOE REPAIR SUPERVISOR Responder Arrival Time:: 06:20 SHOE REPAIR SUPERVISOR Location:: [address] [place] [address] SHOE REPAIR SUPERVISOR Called By: BRETT Chapman.Reason for SHOE REPAIR SUPERVISOR - A) Acute Change in Patient: (Select all that apply): Staff member or family is worried about patient Subjective: Rapid response was called to [address] [employer] hallway for a 77 year old male for pre- syncopal episode. Patient was going for outpatient blood transfusion. While en route to transfusion center, he start experiencing a near syncopal episodes. Patient did not lose consciousness and did not injury his head or any other part of his body. The whole event was witnessed by his family member. Patient BP was 80/47, 79bpm, and pulse ox 98% on room air. Patient's symptoms improved immediately during my assessment. Patient denies fever, chills, shortness of breath, chest pain, nausea, vomit, urinary or fecal incontinence. Patient was then transferred to the ED. Case endorsed to ED staff. - Neurological Status (Select all that apply): Alert, Responsive, Oriented, Verbal, Follows Commands - Constitutional Appears: No Acute Distress, Older Than Stated Age, Cachectic, Chronically Ill Additional Comments: pale skin - Head Head Exam: ATRAUMATIC, NORMAL INSPECTION, NORMOCEPHALIC - Eyes Eye Exam: EOMI, Normal appearance - Respiratory Exam Respiratory Exam: Clear to Ausculation Bilateral, NORMAL BREATHING PATTERN. absent: Respiratory Distress - Cardiovascular Exam Cardiovascular Exam: REGULAR RHYTHM, +S1, +S2. absent: Diastolic murmur - Neurological Exam Neurological Exam: Alert, Awake, Oriented x3 - Extremities Exam Extremities Exam: absent: Tenderness Additional comments: multiple bruising from venipuncture/blood draws in the upper extremity <Cristiano Mckee - Last Filed: 10/23/18 07:07> Attending/Attestation - Attestation I have personally seen and examined this patient.: Yes I have fully participated in the care of the patient.: Yes I have reviewed all pertinent clinical information, including history, physical exam and plan: Yes Notes (Text): 10/23/18 07:07 Assessed patient along with resident, agree with above.
[2018-10-22 07:14] LABS: INR 1.2; PROTHROMBIN TIME 13.3 SECONDS (9.7-12.2)
[2018-10-22 07:15] LABS: EOS % 0.1 % (0.0-4.0); LYMPH # 1.3 K/uL (1.0-4.3); LYMPH % 55.4 % (20.0-40.0); MEAN CELL VOLUME 87.3 fL (80.0-94.0); MEAN CORPUSCULAR HGB CONC 33.2 g/dL (33.0-37.0); MEAN PLATELET VOLUME 10.6 fL (7.2-11.7); MONO % 41.5 % (0.0-10.0); NEUT # 0.1 K/uL (1.8-7.0); RBC 2.58 Mil/uL (4.40-5.90); RED CELL DISTRIBUTION WIDTH 14.5 % (11.5-14.5)
[2018-10-22 07:16] LABS: HEMOGLOBIN 7.5 g/dL (12.0-18.0); PLATELET COUNT 5 K/uL (130-400); WHITE BLOOD COUNT 2.4 K/uL (4.8-10.8)
--- NOTE | 2018-10-22 07:20 | C.PDOC ---
Time Seen by Provider: 10/22/18 06:46 Chief Complaint (Nursing): Syncope Past Medical History Vital Signs: Last Vital Signs Temp 97.7 F 10/22/18 06:37 Pulse 88 10/22/18 06:37 Resp 18 10/22/18 06:37 BP 106/21 L 10/22/18 06:37 Pulse Ox 99 10/22/18 07:06 - Medical History PMH: No Chronic Diseases Surgical History: No Surg Hx - [facility] Procedures EXTRACTION OF ILIAC BONE MARROW, PERC APPROACH, DIAGN (09/28/18) PHERESIS OF PLATELETS, MULTIPLE (09/28/18) TRANSFUSE NONAUT RED BLOOD CELLS IN PERIPH VEIN, PERC (09/28/18) Family History: States: Unknown Family Hx - Social History Hx Alcohol Use: No Hx Substance Use: No - Immunization History Hx Tetanus Toxoid Vaccination: No Hx Influenza Vaccination: No Hx Pneumococcal Vaccination: No ED Course And Treatment - Laboratory Results Result Diagrams: 10/22/18 06:59 O2 Sat by Pulse Oximetry: 99 (ON RA) Progress - Data Reviewed Data Reviewed: Lab, Diagnostic imaging, EKG, Old records Disposition - Disposition Condition: FAIR Forms: [employer] [facility] (Israeli) - Clinical Impression Clinical Impression: Syncope, GI bleed
[2018-10-22 07:59] LABS: ALBUMIN 3.7 g/dL (3.5-5.0); CALCIUM 9.2 mg/dl (8.6-10.4)
[2018-10-22 08:18] LABS: LYMPHOCYTE 65 % (20-40); MONOCYTE 31 % (0-10); NEUTROPHIL 4 % (50-75); TOTAL CELLS COUNTED 100
[2018-10-22 08:19] LABS: HYPOCHROMIC SLIGHT; PLATELET ESTIMATE MARKEDLY DECREASED (NORMAL); POLYCHROMIC SLIGHT
--- NOTE | 2018-10-22 08:47 | CP.PCM.HP ---
History of Present Illness - History of Present Illness History of Present Illness: 77 M w/ PMHx: of recently diagnosed AML, CHF, BPD, ? COPD/ emphysema presented to ED following 1 episode of dizziness at [facility]. Patient states he was sitting in a chair when he got dizzy. He felt like he was about to pass out and a FINANCIAL OPERATIONS ANALYST was called. Patient vitals were stable at time of FINANCIAL OPERATIONS ANALYST w/ no LOC/ head trauma reported. Patient was transferred to ED. In ED, patient states he is currently asymptomatic. patient states he was just discharge from rehab today. Patient denies chest pain, SOB, N/V, F/C, dysuria. Patient states he still has hematuria that he has been having for the past week or so. Patient has no other complaints. Patient was recently D/C'ed from [facility] on 10/13/18 to rehab. Patient during stay was found to be pancytopenic and found to have AML. Additonally patient had self-resolved pneuomothorax during stay. PMD: None PMHx: AML, CHF, BPD, ? COPD/ emphysema Meds: Flomax 0.4 PO BID, Protonic 40 PO daily, Lisinopril 5 mg PO daily, Lasix 20 mg PO daily, Colace 100 PO BID. Allergies: NKDA Surgeries: None Social: smoked cigarets for 30+ years, denies ETOH, drug use FHx: Mother naturally Father: complications 2/2 to smoking Full Code Family Contact Information: : Irais [phone] Daughter: Noemy [phone] Daughter Maggi [phone] Present on Admission - Present on Admission Any Indicators Present on Admission: No Review of Systems - Constitutional Constitutional: absent: Frequent Falls, Headache, Night Sweats - EENT Eyes: absent: Diplopia, Discharge Nose/Mouth/Throat: absent: Nasal Congestion, Nose Pain, Bleeding Gums - Cardiovascular Cardiovascular: absent: Chest Pain, Chest Pain at Rest, Claudication, Diaphor esis - Respiratory Respiratory: absent: Dyspnea, Hemoptysis, Stridor - Gastrointestinal Gastrointestinal: absent: Belching, Bloating, Cramping, Diarrhea - Genitourinary Genitourinary: Hematuria. absent: Difficulty Urinating, Pyuria, Nocturia - Musculoskeletal Musculoskeletal: absent: Muscle Weakness, Myalgias, Stiffness - Neurological Neurological: absent: Headaches, Paresthesias, Syncope, Tingling - Psychiatric Psychiatric: absent: Behavioral Changes, Confusion, Homicidal Ideation Past Patient History - Infectious Disease Hx of Infectious Diseases: None - Past Medical History & Family History Past Medical History?: Yes - Past Social History Smoking Status: Former Smoker - CARDIAC Hx Cardiac Disorders: No - PULMONARY Hx Respiratory Disorders: No - NEUROLOGICAL Hx Neurological Disorder: No - HEENT Hx HEENT Problems: No - ENDOCRINE/METABOLIC Hx Endocrine Disorders: No - HEMATOLOGICAL/ONCOLOGICAL Hx Blood Disorders: Yes Hx Leukemia: Yes Other/Comment: Hgb 4.6 - INTEGUMENTARY Hx Dermatological Problems: No - MUSCULOSKELETAL/RHEUMATOLOGICAL Hx Musculoskeletal Disorders: No - GASTROINTESTINAL Hx Gastrointestinal Disorders: Yes Other/Comment: (+) stool occult blood - GENITOURINARY/GYNECOLOGICAL Hx Genitourinary Disorders: No - PSYCHIATRIC Hx Substance Use: No - SURGICAL HISTORY Hx Surgeries: No - ANESTHESIA Hx Anesthesia: No Meds Allergies/Adverse Reactions: Allergies Allergy/AdvReac Type Severity Reaction Status Date / Time No Known Allergies Allergy Verified 10/22/18 06:45 Physical Exam - Constitutional Appears: Non-toxic, No Acute Distress, Cachectic, Chronically Ill - Head Exam Head Exam: ATRAUMATIC, NORMAL INSPECTION, NORMOCEPHALIC - Eye Exam Eye Exam: EOMI, Normal appearance, PERRL Pupil Exam: NORMAL ACCOMODATION - ENT Exam ENT Exam: Mucous Membranes Moist Additional comments: poor dentition, missing several teeth - Respiratory Exam Respiratory Exam: Clear to Auscultation Bilateral, NORMAL BREATHING PATTERN. absent: Rales, Rhonchi, Wheezes Additional comments: Absent breath sound LLL - Cardiovascular Exam Cardiovascular Exam: +S1, +S2 - GI/Abdominal Exam GI & Abdominal Exam: Normal Bowel Sounds, Soft. absent: Firm, Guarding, Hernia - Extremities Exam Extremities exam: Positive for: full ROM. Negative for: calf tenderness, pedal edema Additional comments: echymosis through out body - Back Exam Back exam: absent: CVA tenderness (L), CVA tenderness (R) - Neurological Exam Neurological exam: Alert, CN II-XII Intact, Oriented x3 - Psychiatric Exam Psychiatric exam: Normal Affect, Normal Mood - Skin Skin Exam: Dry, Intact, Normal Color, Warm Results - Vital Signs Recent Vital Signs: Last Vital Signs Temp 98.3 F 10/22/18 08:25 Pulse 94 H 10/22/18 08:25 Resp 18 10/22/18 08:25 BP 109/39 L 10/22/18 08:25 Pulse Ox 100 10/22/18 08:25 - Labs Result Diagrams: 10/22/18 06:59 10/22/18 06:59 Labs: Laboratory Results - last 24 hr 10/22/18 10/22/18 10/22/18 06:53 06:59 06:59 WBC 2.4 L D RBC 2.58 L Hgb 7.5 L D Hct 22.5 L MCV 87.3 MCH 29.0 MCHC 33.2 RDW 14.5 Plt Count 5 L* D MPV 10.6 Neut % (Auto) 3.0 L Lymph % (Auto) 55.4 H Lewis % (Auto) 41.5 H Eos % (Auto) 0.1 Baso % (Auto) 0.0 Neut # (Auto) 0.1 L Lymph # (Auto) 1.3 Lewis # (Auto) 1.0 H Eos # (Auto) 0.0 Baso # (Auto) 0.0 Neutrophils % (Manual) 4 L Lymphocytes % (Manual) 65 H Monocytes % (Manual) 31 H Platelet Estimate Markedly decreased L Polychromasia Slight Hypochromasia (manual) Slight PT 13.3 H INR 1.2 APTT 30 Sodium Potassium Chloride Carbon Dioxide Anion Gap BUN Creatinine Est GFR ( Amer) Est GFR (Non-Af Amer) Random Glucose Calcium Total Bilirubin AST ALT Alkaline Phosphatase Total Protein Albumin Globulin Albumin/Globulin Ratio Stool Occult Blood Negative Blood Type Antibody Screen 10/22/18 10/22/18 06:59 06:59 WBC RBC Hgb Hct MCV MCH MCHC RDW Plt Count MPV Neut % (Auto) Lymph % (Auto) Lewis % (Auto) Eos % (Auto) Baso % (Auto) Neut # (Auto) Lymph # (Auto) Lewis # (Auto) Eos # (Auto) Baso # (Auto) Neutrophils % (Manual) Lymphocytes % (Manual) Monocytes % (Manual) Platelet Estimate Polychromasia Hypochromasia (manual) PT INR APTT Sodium 136 Potassium 3.9 Chloride 101 Carbon Dioxide 23 Anion Gap 15 BUN 42 H Creatinine 1.6 H Est GFR ( Amer) 51 Est GFR (Non-Af Amer) 42 Random Glucose 129 H Calcium 9.2 Total Bilirubin 0.9 AST 23 ALT 25 Alkaline Phosphatase 83 Total Protein 7.2 Albumin 3.7 Globulin 3.5 Albumin/Globulin Ratio 1.0 Stool Occult Blood Blood Type B POSITIVE Antibody Screen Negative Assessment & Plan - Assessment and Plan (Free Text) Assessment: 77 M w/ PMHx: of recently diagnosed AML, CHF, BPD, ? COPD/ emphysema presented to ED following 1 episode of dizziness at transfusion center; in ED found to have Hgb 7.5 & platelets 5: Dizziness Pancytopenia AML - WBC 2.4, Hgb 7.5, platlets 5 - CT head: No bleed - Transfuse 2 units platlets - Transfuse 1 unit PRBcs - Lasix 20 mg IVP once to prevent fluid overload - F/u w/ Dr. Diamante jo - F/u stool occult Pneumothorax - Cxary: Left-sided pneumothorax measuring approximately 1.6 cm from pleural edge. Small left pleural effusion. Cardiomegaly. Ectatic aorta. Atheroscleroti c calcifications. - ICU consult: no ICU warranted at this time - Continue to monitor - F/u AM cxray Hematuria - thrombocytopenia vs UTI vs bladder Ca vs ? - likely 2/2 to low platlets - F/u UA/ UC - consider renal ultrasound JARRED - BUN/Cr 42/1.6 - previously 22/1.0 - likely 2/2 to anemia - transfuse 1 PRBC - f/u AM labs BPH - continue w/ home medications flomax 0.4 PO BID Systolic and diastolic heart failure Chronic - Echo (09/28): LVEF of 36%, diastolic dysfunction. Trace MR. Mild TR. Small pericardial effusion - lasix 20 IVP daily COPD/Emphysema Chronic - asytomnatic - continue to monitor - if Oxygen needed, please use humidified O2 Left bundle branch block - unchanged from previous visit - consider cardiology follow up Prophylaxis - DVT: SCDs, avoid chemical w/ platlets of 5 - GI: continue w/ home medication protonix 40 PO daily
--- NOTE | 2018-10-22 09:58 | CT ---
Date of service: 10/22/2018 PROCEDURE: CT HEAD WITHOUT CONTRAST. HISTORY: near syncope, thrombopenic of 5 COMPARISON: None available. TECHNIQUE: Axial computed tomography images were obtained through the head/brain without intravenous contrast. Radiation dose: Total exam DLP = 850.61 mGy-cm. This CT exam was performed using one or more of the following dose reduction techniques: Automated exposure control, adjustment of the mA and/or kV according to patient size, and/or use of iterative reconstruction technique. FINDINGS: HEMORRHAGE: No intracranial hemorrhage. BRAIN: No mass effect or edema. No atrophy or chronic microvascular ischemic changes. VENTRICLES: Unremarkable. No hydrocephalus. CALVARIUM: Unremarkable. PARANASAL SINUSES: Unremarkable as visualized. No significant inflammatory changes. MASTOID AIR CELLS: Unremarkable as visualized. No inflammatory changes. OTHER FINDINGS: None. IMPRESSION: Normal CT of the Head.
[2018-10-22] MEDS ORDERED: Pantoprazole 40 mg EC Tab PO SCH (10:00)
--- NOTE | 2018-10-22 10:57 | RAD ---
HISTORY: SOB COMPARISON: Chest x-ray performed 10/07/18 TECHNIQUE: Chest, one view. FINDINGS: LUNGS: Biapical pleural thickening/scarring/granulomatous changes. PLEURA: Left-sided pneumothorax measuring approximately 1.6 cm from pleural edge. Small left pleural effusion. CARDIOVASCULAR: Cardiomegaly. Ectatic aorta. Atherosclerotic calcifications. OSSEOUS STRUCTURES: Degenerative changes. VISUALIZED UPPER ABDOMEN: Unremarkable. OTHER FINDINGS: None. IMPRESSION: Left-sided pneumothorax measuring approximately 1.6 cm from pleural edge. Small left pleural effusion. Cardiomegaly. Ectatic aorta. Atherosclerotic calcifications. Findings discussed with Charge Nurse Lucero on 10/22/18 at 10:52 a.m.
--- NOTE | 2018-10-22 15:10 | CP.PCM.CON ---
<Logan Mancilla - Last Filed: 10/22/18 15:37> History of Present Illness - History of Present Illness History of Present Illness: PGY-1 ICU Consult note for Dr. Smith CC: Pneumothorax and thrombocytopenia Patient is a 77-year-old male with past medical history of recently diagnosed AML, CHF, and COPD presenting with a pre-syncopal episode. Patient was going for outpatient blood transfusion. While en route to the transfusion center, he experienced near syncopal episodes. Patient did not lose consciousness and denies hitting his head or any other parts of his body. ICU was consulted for patient's pneumothorax and thrombocytopenia. Patient was recently admitted to [facility] for a lung mass, left pneumothorax, and thrombocytopenia. Patient was discharged on 10/13/2018. Patient is asymptomatic and denies chest pain, SOB, fevers, chills, abdominal pain, or any other complaints. ROS reviewed and are negative unless stated in the HPI. PMHx: AML, CHF, and COPD PSHx: Denies Allergies: NKDA Social: smoked cigarets for 30+ years, denies ETOH, drug use FHx: Mother naturally, Father: complications 2/2 to smoking Review of Systems - Review of Systems All systems: reviewed and no additional remarkable complaints except Past Patient History - Infectious Disease Hx of Infectious Diseases: None - Past Medical History & Family History Past Medical History?: Yes - Past Social History Smoking Status: Former Smoker - CARDIAC Hx Cardiac Disorders: No - PULMONARY Hx Respiratory Disorders: No - NEUROLOGICAL Hx Neurological Disorder: No - HEENT Hx HEENT Problems: No - ENDOCRINE/METABOLIC Hx Endocrine Disorders: No - HEMATOLOGICAL/ONCOLOGICAL Hx Blood Disorders: Yes Hx Leukemia: Yes Other/Comment: Hgb 4.6 - INTEGUMENTARY Hx Dermatological Problems: No - MUSCULOSKELETAL/RHEUMATOLOGICAL Hx Musculoskeletal Disorders: No - GASTROINTESTINAL Hx Gastrointestinal Disorders: Yes Other/Comment: (+) stool occult blood - GENITOURINARY/GYNECOLOGICAL Hx Genitourinary Disorders: No - PSYCHIATRIC Hx Substance Use: No - SURGICAL HISTORY Hx Surgeries: No - ANESTHESIA Hx Anesthesia: No Meds Allergies/Adverse Reactions: Allergies Allergy/AdvReac Type Severity Reaction Status Date / Time No Known Allergies Allergy Verified 10/22/18 06:45 - Medications Medications: Current Medications Docusate Sodium (Colace) 100 mg PO BID ELDA Last Admin: 10/22/18 10:52 Dose: 100 mg Furosemide (Lasix) 20 mg PO DAILY [facility] Furosemide (Lasix) 20 mg IVP DAILY [facility] Last Admin: 10/22/18 10:53 Dose: Not Given Lisinopril (Zestril) 5 mg PO DAILY [facility] Ondansetron HCl (Zofran Inj) 4 mg IVP DAILY@ONCE PRN PRN Reason: Nausea/Vomiting Pantoprazole Sodium (Protonix Ec Tab) 40 mg PO DAILY [facility] Pantoprazole Sodium (Protonix Inj) 40 mg IVP Q12H [facility] Last Admin: 10/22/18 10:52 Dose: 40 mg Tamsulosin HCl (Flomax) 0.4 mg PO BID [facility] Last Admin: 10/22/18 10:54 Dose: 0.4 mg Physical Exam - Constitutional Appears: No Acute Distress, Cachectic, Chronically Ill - Head Exam Head Exam: ATRAUMATIC, NORMAL INSPECTION - Eye Exam Eye Exam: EOMI, Normal appearance - ENT Exam ENT Exam: Mucous Membranes Dry - Respiratory Exam Respiratory Exam: Clear to Auscultation Bilateral, NORMAL BREATHING PATTERN. absent: Chest Wall Tenderness, Decreased Breath Sounds, Rales, Rhonchi, Wheezes, Respiratory Distress - Cardiovascular Exam Cardiovascular Exam: REGULAR RHYTHM, +S1, +S2. absent: Bradycardia, Tachycardia, Gallop, Rubs, Systolic Murmur - GI/Abdominal Exam GI & Abdominal Exam: Normal Bowel Sounds, Soft. absent: Tenderness - Extremities Exam Extremities exam: Positive for: normal inspection. Negative for: calf tenderness - Neurological Exam Neurological exam: Alert, CN II-XII Intact, Oriented x3 - Psychiatric Exam Psychiatric exam: Normal Affect, Normal Mood - Skin Skin Exam: Dry, Intact, Pallor, Warm Results - Vital Signs Recent Vital Signs: Last Vital Signs Temp 98.7 F 10/22/18 14:44 Pulse 98 H 10/22/18 14:44 Resp 20 10/22/18 14:44 BP 117/58 L 10/22/18 14:44 Pulse Ox 95 10/22/18 12:40 - Labs Result Diagrams: 10/22/18 06:59 10/22/18 06:59 Labs: Laboratory Results - last 24 hr 10/22/18 10/22/18 10/22/18 06:53 06:59 06:59 WBC 2.4 L D RBC 2.58 L Hgb 7.5 L D Hct 22.5 L MCV 87.3 MCH 29.0 MCHC 33.2 RDW 14.5 Plt Count 5 L* D Manual Plt Count MPV 10.6 Neut % (Auto) 3.0 L Lymph % (Auto) 55.4 H Dup[place] % (Auto) 41.5 H Eos % (Auto) 0.1 Baso % (Auto) 0.0 Neut # (Auto) 0.1 L Lymph # (Auto) 1.3 [place] # (Auto) 1.0 H Eos # (Auto) 0.0 Baso # (Auto) 0.0 Neutrophils % (Manual) 4 L Lymphocytes % (Manual) 65 H Monocytes % (Manual) 31 H Platelet Estimate Markedly decreased L Polychromasia Slight Hypochromasia (manual) Slight Retic Count Haptoglobin PT 13.3 H INR 1.2 APTT 30 Sodium Potassium Chloride Carbon Dioxide Anion Gap BUN Creatinine Est GFR ( Amer) Est GFR (Non-Af Amer) Random Glucose Calcium Total Bilirubin AST ALT Alkaline Phosphatase Lactate Dehydrogenase Total Protein Albumin Globulin Albumin/Globulin Ratio Stool Occult Blood Negative Blood Type Antibody Screen 10/22/18 10/22/18 10/22/18 06:59 06:59 09:41 WBC RBC Hgb Hct MCV MCH MCHC RDW Plt Count Manual Plt Count 4 L* D MPV Neut % (Auto) Lymph % (Auto) [place] % (Auto) Eos % (Auto) Baso % (Auto) Neut # (Auto) Lymph # (Auto) [place] # (Auto) Eos # (Auto) Baso # (Auto) Neutrophils % (Manual) Lymphocytes % (Manual) Monocytes % (Manual) Platelet Estimate Polychromasia Hypochromasia (manual) Retic Count 1.0 D Haptoglobin PT INR APTT Sodium 136 Potassium 3.9 Chloride 101 Carbon Dioxide 23 Anion Gap 15 BUN 42 H Creatinine 1.6 H Est GFR ( Amer) 51 Est GFR (Non-Af Amer) 42 Random Glucose 129 H Calcium 9.2 Total Bilirubin 0.9 AST 23 ALT 25 Alkaline Phosphatase 83 Lactate Dehydrogenase 523 Total Protein 7.2 Albumin 3.7 Globulin 3.5 Albumin/Globulin Ratio 1.0 Stool Occult Blood Blood Type B POSITIVE Antibody Screen Negative 10/22/18 10/22/18 09:44 11:59 WBC RBC Hgb Hct MCV MCH MCHC RDW Plt Count Manual Plt Count MPV Neut % (Auto) Lymph % (Auto) [place] % (Auto) Eos % (Auto) Baso % (Auto) Neut # (Auto) Lymph # (Auto) [place] # (Auto) Eos # (Auto) Baso # (Auto) Neutrophils % (Manual) Lymphocytes % (Manual) Monocytes % (Manual) Platelet Estimate Polychromasia Hypochromasia (manual) Retic Count Haptoglobin 145.7 PT INR APTT Sodium Potassium Chloride Carbon Dioxide Anion Gap BUN Creatinine Est GFR ( Amer) Est GFR (Non-Af Amer) Random Glucose Calcium Total Bilirubin AST ALT Alkaline Phosphatase Lactate Dehydrogenase Total Protein Albumin Globulin Albumin/Globulin Ratio Stool Occult Blood Blood Type B POSITIVE Antibody Screen Negative Assessment & Plan - Assessment and Plan (Free Text) Assessment: Patient is a 77-year-old male with past medical history of recently diagnosed AML, CHF, and COPD presenting with a pre-syncopal episode. ICU was consulted for left pneumothorax and thrombocytopenia. Plan: Neuro: Pre-syncopal episode - Patient is AAO X 3 - Head CT (10/22): Normal head CT Pulm: Left pneumothorax - CXR (10/22): Left-sided pneumothorax measuring approximately 1.6 cm from pleural edge. Small left pleural effusion. Cardiomegaly. Ectatic aorta. Atherosclerotic calcifications. - Patient is asymptomatic - Continue to monitor for respiratory distress Cardiovascular: Systolic and diastolic heart failure - Echo (09/28): LVEF of 36%, diastolic dysfunction. Trace MR. Mild TR. Small pericardial effusion. GI: - Colace 100mg PO BID - Zofran 4mg IV Q24 PRN - Stool occult blood: negative - Protonix 40 mg IV Renal: JARRED - BUN/Cr: 42/16 - Avoid nephrotoxic agents - Continue to monitor : BPH - Flomax 0.4mg PO BID Heme: Pancytopenia - Hb/Hct: 7.5/22.5 - Platelets: 5 - WBC: 2.4 - Type and screen - 2 units of platelets ordered - 1 unit of PRBC ordered AML - Heme-onc consulted, Dr. Bobby ID: - No acute issues Prophylaxis: - Anticoagulation contraindicated due to thrombocytopenia and anemia - GI: protonix 40 mg IV Case discussed with Dr. Sarah Mancilla, PGY-1 <Billy Smith - Last Filed: 10/22/18 15:51> Meds - Medications Medications: Current Medications Docusate Sodium (Colace) 100 mg PO BID [facility] Last Admin: 10/22/18 10:52 Dose: 100 mg Furosemide (Lasix) 20 mg PO DAILY [facility] Furosemide (Lasix) 20 mg IVP DAILY [facility] Last Admin: 10/22/18 10:53 Dose: Not Given Lisinopril (Zestril) 5 mg PO DAILY [facility] Ondansetron HCl (Zofran Inj) 4 mg IVP DAILY@ONCE PRN PRN Reason: Nausea/Vomiting Pantoprazole Sodium (Protonix Ec Tab) 40 mg PO DAILY [facility] Pantoprazole Sodium (Protonix Inj) 40 mg IVP Q12H [facility] Last Admin: 10/22/18 10:52 Dose: 40 mg Tamsulosin HCl (Flomax) 0.4 mg PO BID [facility] Last Admin: 10/22/18 10:54 Dose: 0.4 mg Results - Vital Signs Recent Vital Signs: Last Vital Signs Temp 99.8 F H 10/22/18 15:44 Pulse 91 H 10/22/18 15:44 Resp 20 10/22/18 15:44 BP 104/63 10/22/18 15:44 Pulse Ox 95 10/22/18 12:40 - Labs Result Diagrams: 10/22/18 06:59 10/22/18 06:59 Labs: Laboratory Results - last 24 hr 10/22/18 10/22/18 10/22/18 06:53 06:59 06:59 WBC 2.4 L D RBC 2.58 L Hgb 7.5 L D Hct 22.5 L MCV 87.3 MCH 29.0 MCHC 33.2 RDW 14.5 Plt Count 5 L* D Manual Plt Count MPV 10.6 Neut % (Auto) 3.0 L Lymph % (Auto) 55.4 H Dup[place] % (Auto) 41.5 H Eos % (Auto) 0.1 Baso % (Auto) 0.0 Neut # (Auto) 0.1 L Lymph # (Auto) 1.3 [place] # (Auto) 1.0 H Eos # (Auto) 0.0 Baso # (Auto) 0.0 Neutrophils % (Manual) 4 L Lymphocytes % (Manual) 65 H Monocytes % (Manual) 31 H Platelet Estimate Markedly decreased L Polychromasia Slight Hypochromasia (manual) Slight Retic Count Haptoglobin PT 13.3 H INR 1.2 APTT 30 Sodium Potassium Chloride Carbon Dioxide Anion Gap BUN Creatinine Est GFR ( Amer) Est GFR (Non-Af Amer) Random Glucose Calcium Total Bilirubin AST ALT Alkaline Phosphatase Lactate Dehydrogenase Total Protein Albumin Globulin Albumin/Globulin Ratio Stool Occult Blood Negative Blood Type Antibody Screen 10/22/18 10/22/18 10/22/18 06:59 06:59 09:41 WBC RBC Hgb Hct MCV MCH MCHC RDW Plt Count Manual Plt Count 4 L* D MPV Neut % (Auto) Lymph % (Auto) [place] % (Auto) Eos % (Auto) Baso % (Auto) Neut # (Auto) Lymph # (Auto) [place] # (Auto) Eos # (Auto) Baso # (Auto) Neutrophils % (Manual) Lymphocytes % (Manual) Monocytes % (Manual) Platelet Estimate Polychromasia Hypochromasia (manual) Retic Count 1.0 D Haptoglobin PT INR APTT Sodium 136 Potassium 3.9 Chloride 101 Carbon Dioxide 23 Anion Gap 15 BUN 42 H Creatinine 1.6 H Est GFR ( Amer) 51 Est GFR (Non-Af Amer) 42 Random Glucose 129 H Calcium 9.2 Total Bilirubin 0.9 AST 23 ALT 25 Alkaline Phosphatase 83 Lactate Dehydrogenase 523 Total Protein 7.2 Albumin 3.7 Globulin 3.5 Albumin/Globulin Ratio 1.0 Stool Occult Blood Blood Type B POSITIVE Antibody Screen Negative 10/22/18 10/22/18 09:44 11:59 WBC RBC Hgb Hct MCV MCH MCHC RDW Plt Count Manual Plt Count MPV Neut % (Auto) Lymph % (Auto) [place] % (Auto) Eos % (Auto) Baso % (Auto) Neut # (Auto) Lymph # (Auto) [place] # (Auto) Eos # (Auto) Baso # (Auto) Neutrophils % (Manual) Lymphocytes % (Manual) Monocytes % (Manual) Platelet Estimate Polychromasia Hypochromasia (manual) Retic Count Haptoglobin 145.7 PT INR APTT Sodium Potassium Chloride Carbon Dioxide Anion Gap BUN Creatinine Est GFR ( Amer) Est GFR (Non-Af Amer) Random Glucose Calcium Total Bilirubin AST ALT Alkaline Phosphatase Lactate Dehydrogenase Total Protein Albumin Globulin Albumin/Globulin Ratio Stool Occult Blood Blood Type B POSITIVE Antibody Screen Negative Attending/Attestation - Attestation I have personally seen and examined this patient.: Yes I have fully participated in the care of the patient.: Yes I have reviewed all pertinent clinical information: Yes Notes (Text): 10/22/18 15:46 I have seen and examined the patient. Medical records, lab studies, and imaging were reviewed by me and a management plan was formulated on multidisciplinary rounds with resident Dr. Mancilla. I agree with their documented assessment and plan. Patient is clinically stable. He has a spontaneous pneumothorax from a ruptured bulla, secondary to underlying emphysema. He has had this before with spontaneous resolution. He is breathing at a normal rate and has good oxygen saturation on room air, therefore there is no need for oxygen therapy, the benefit of nitrogen washout is debatable. Placement of a chest tube is relatively risky given patient's low platelet count, and he is getting transfused now with platelets to reduce his risk of spontaneous bleeding. There is no current need for chest tube placement anyway. Continue to monitor the patient on telemetry, with intermittent pulse ox checks. Will repeat a chest x- ray later today. Please reconsult ICU if the patient's clinical status changes. Critical Care Time 35 minutes. Multi-disciplinary rounds were performed with house staff, nursing, speech therapy, respiratory therapy, pharmacy and nutrition with integrated input from the primary team/attending and other consulting services. The documented time is cumulative and includes review of patient data/exams/labs/chart review and examination of the patient on rounds and throughout the day; time is exclusive of any procedures or teaching time.
--- NOTE | 2018-10-22 17:09 | CARD ---
APPROVED REPORT Date of service: 10/22/2018 EKG Measurement Heart [id number] <Conclusion> Normal sinus rhythm Nonspecific intraventricular block T wave abnormality, consider lateral ischemia Abnormal ECG
[2018-10-22 18:25] LABS: URINE BACTERIA OCC (<OCC); URINE BILIRUBIN NEGATIVE (NEGATIVE); URINE BLOOD 2+ (NEGATIVE); URINE CLARITY Hazy (Clear); URINE COLOR Red (YELLOW); URINE GLUCOSE (UA) NORMAL (Normal); URINE LEUKOCYTE ESTERASE NEG Leu/uL (Negative); URINE PROTEIN 2+ mg/dL (NEGATIVE); URINE UROBILINOGEN NORMAL mg/dL (0.2-1.0)
[2018-10-23 08:11] LABS: HEMOGLOBIN 7.3 g/dL (12.0-18.0); MEAN CELL VOLUME 86.2 fL (80.0-94.0); MEAN CORPUSCULAR HEMOGLOBIN 28.7 pg (27.0-31.0); MEAN CORPUSCULAR HGB CONC 33.2 g/dL (33.0-37.0); MEAN PLATELET VOLUME 8.7 fL (7.2-11.7); RBC 2.54 Mil/uL (4.40-5.90); RED CELL DISTRIBUTION WIDTH 14.4 % (11.5-14.5)
[2018-10-23 08:22] LABS: ALB/GLOB RATIO 0.9 (1.0-2.1); ALT/SGPT 19 U/L (21-72); AST/SGOT 18 U/L (17-59); BLOOD UREA NITROGEN 35 mg/dL (9-20); CALCIUM 8.8 mg/dl (8.6-10.4); GFR NON-AFRICAN AMERICAN 54
[2018-10-23 08:28] LABS: WHITE BLOOD COUNT 1.5 K/uL (4.8-10.8)
[2018-10-23 09:17] LABS: EOS % 0.4 % (0.0-4.0); LYMPH # 0.7 K/uL (1.0-4.3); LYMPH % 50.5 % (20.0-40.0); MONO # 0.7 K/uL (0.0-0.8); MONO % 48.7 % (0.0-10.0); NEUT % 0.4 % (50.0-75.0); NRBC % 3.1 % (0.0-2.0)
--- NOTE | 2018-10-23 11:17 | CP.PCM.PN ---
Subjective - Date & Time of Evaluation Date of Evaluation: 10/23/18 Time of Evaluation: 11:14 - Subjective Subjective: Medicine Note for Dr. Montoya's Service Patient was seen and examined at bedside. Patient reports his urine faintly has a pink hue to it, no more blood in the stool. He reports his breathing is at baseline and that he ambulates with a walker. Denied any fever, chills, chest pain, shortness of breath, abdominal pain, n/v/d/c, or urinary symptoms. Objective - Vital Signs/Intake and Output Vital Signs (last 24 hours): Temp Pulse Resp BP Pulse Ox 98.5 F 106 H 20 97/54 L 96 10/23/18 07:00 10/23/18 09:20 10/23/18 07:00 10/23/18 09:22 10/23/18 07:10 Intake and Output: 10/23/18 10/23/18 06:59 18:59 Intake Total 325 Balance 325 - Medications Medications: Current Medications Docusate Sodium (Colace) 100 mg PO BID [facility] Last Admin: 10/23/18 09:22 Dose: 100 mg Furosemide (Lasix) 20 mg PO DAILY [facility] Furosemide (Lasix) 20 mg IVP DAILY [facility] Last Admin: 10/23/18 09:22 Dose: Not Given Lisinopril (Zestril) 5 mg PO DAILY [facility] Ondansetron HCl (Zofran Inj) 4 mg IVP DAILY@ONCE PRN PRN Reason: Nausea/Vomiting Pantoprazole Sodium (Protonix Ec Tab) 40 mg PO DAILY [facility] Pantoprazole Sodium (Protonix Inj) 40 mg IVP Q12H [facility] Last Admin: 10/23/18 09:22 Dose: 40 mg Potassium Chloride (K-Dur 20 Meq Er Tab) 40 meq PO ONCE ONE Stop: 10/23/18 12:01 Tamsulosin HCl (Flomax) 0.4 mg PO BID [facility] Last Admin: 10/23/18 09:22 Dose: 0.4 mg - Labs Labs: 10/23/18 07:57 10/23/18 07:57 PT 13.3 SECONDS (9.7-12.2) H 10/22/18 06:59 INR 1.2 10/22/18 06:59 APTT 30 SECONDS (21-34) 10/22/18 06:59 - Additional Findings Additional findings: - Constitutional Appears: Non-toxic, No Acute Distress, Cachectic, Chronically Ill - Head Exam Head Exam: ATRAUMATIC, NORMAL INSPECTION, NORMOCEPHALIC - Eye Exam Eye Exam: EOMI, Normal appearance, PERRL Pupil Exam: NORMAL ACCOMODATION - ENT Exam ENT Exam: Mucous Membranes Moist Additional comments: poor dentition, missing several teeth - Respiratory Exam Respiratory Exam: Clear to Auscultation Bilateral, NORMAL BREATHING PATTERN. absent: Rales, Rhonchi, Wheezes Additional comments: Absent breath sound ORALIA - Cardiovascular Exam Cardiovascular Exam: +S1, +S2 - GI/Abdominal Exam GI & Abdominal Exam: Normal Bowel Sounds, Soft. absent: Firm, Guarding, Hernia - Extremities Exam Extremities exam: Positive for: full ROM. Negative for: calf tenderness, pedal edema Additional comments: echymosis through out body - Back Exam Back exam: absent: CVA tenderness (L), CVA tenderness (R) - Neurological Exam Neurological exam: Alert, CN II-XII Intact, Oriented x3 - Psychiatric Exam Psychiatric exam: Normal Affect, Normal Mood - Skin Skin Exam: Dry, Intact, Normal Color, Warm Assessment and Plan - Assessment and Plan (Free Text) Plan: 77 M w/ PMHx: of recently diagnosed AML, CHF, BPD, ? COPD/ emphysema presented to ED following 1 episode of dizziness at transfusion center; in ED found to have Hgb 7.5 & platelets 5: AML Pancytopenia Dizziness - F/u w/ Dr. Diamante jo - as per nurse, 1 more unit PRBC and 1 more units of platelets to be administered today 10/23/18, follow up am labs - CT head: No bleed - Stool occult - negative x2 - Transfused 2 units platlets, Transfuse 1 unit PRBcs, Lasix 20 mg IVP once to prevent fluid overload Hematuria - resolving - thrombocytopenia vs UTI vs bladder Ca vs ? - likely 2/2 to low platelets - consider renal ultrasound - UC - negative to date - Transfused 2 units platelets, Transfuse 1 unit PRBCs - Platelets improving, f/u repeat UA Pneumothorax - ICU consult: no ICU warranted at this time - Patient had this on prior admission, which was self-limiting - Cxray: Left-sided pneumothorax measuring approximately 1.6 cm from pleural edge. Small left pleural effusion. Cardiomegaly. Ectatic aorta. Atherosclerotic calcifications. - Patient's vitals are stable, saturating well with NC - Serial CXRs - appears unchanged, pending official reads JARRED _ RESOLVED - BUN/Cr 42/1.6 - previously 22/1.0 - likely 2/2 to anemia - transfuse 1 PRBC - f/u AM labs BPH - continue w/ home medications flomax 0.4 PO BID Systolic and diastolic heart failure Chronic - Echo (09/28): LVEF of 36%, diastolic dysfunction. Trace MR. Mild TR. Small pericardial effusion - lasix 20 IVP daily - held due to hypotension COPD/Emphysema Chronic - asytomnatic - continue to monitor - if Oxygen needed, please use humidified O2 Left bundle branch block - unchanged from previous visit - consider cardiology follow up Prophylaxis - DVT: SCDs, avoid chemical w/ platlets of 5 - GI: continue w/ home medication protonix 40 PO daily Case discussed with Dr. Montoya, Vonda Thomas DO, PGY2
[2018-10-23] MEDS ORDERED: Albuterol-Ipratrop 3 mg / 0.5 (3 ml) UD INH PRN (11:51)
[2018-10-23] MEDS ORDERED: Potassium Chloride 20 mEq ER Tab PO ONE (12:00)
[2018-10-23 12:36] LABS: SQUAMOUS EPITHIAL < 1 /hpf (0-5); URINE BACTERIA RARE (<OCC); URINE BILIRUBIN NEGATIVE (NEGATIVE); URINE BLOOD 3+ (NEGATIVE); URINE CLARITY Hazy (Clear); URINE COLOR Yellow (YELLOW); URINE GLUCOSE (UA) NORMAL (Normal); URINE LEUKOCYTE ESTERASE NEG Leu/uL (Negative); URINE PROTEIN NEGATIVE (NEGATIVE); URINE UROBILINOGEN NORMAL mg/dL (0.2-1.0)
--- NOTE | 2018-10-23 17:25 | RAD ---
Date of service: 10/23/2018 HISTORY: left pnx monitor progression COMPARISON: Portable chest 10/22/2018. FINDINGS: LUNGS: Left basilar airspace disease not excluded. None is seen at the right acutely. Right apical pulmonary fibrosis reiterated. PLEURA: Left pleural effusion diminished. Left pneumothorax not significantly changed. CARDIOVASCULAR: Calcific atherosclerotic changes are seen related to the thoracic aorta. Normal cardiac size. No pulmonary vascular congestion. OSSEOUS STRUCTURES: No significant abnormalities. VISUALIZED UPPER ABDOMEN: Normal. OTHER FINDINGS: None. IMPRESSION: Stable left pneumothorax at least 50 percent of left thoracic cavity. Underlying left pleural effusion possibly diminished with left basilar airspace disease not excluded. No acute right yes trace disease. Right apical fibrosis reiterated. Findings discussed with Nurse Romero with written down and read back verification 10/23/2018 5:15 p.m..
--- NOTE | 2018-10-23 17:27 | RAD ---
Date of service: 10/22/2018 HISTORY: pneumothorax, progression COMPARISON: Portable chest 10/22/2018 7:21 a.m.. FINDINGS: LUNGS: Left basilar airspace disease noted with none on the right. Right apical fibrosis reiterated. PLEURA: Left pneumothorax is likely increased somewhat though slightly less than 50 percent of the left thoracic cavity. No right pneumothorax. Left pleural effusion is increasing. Overall volume remains mild. No right pleural effusion. CARDIOVASCULAR: Calcific atherosclerotic changes are seen related to the thoracic aorta. Normal cardiac size. No pulmonary vascular congestion. OSSEOUS STRUCTURES: No significant abnormalities. VISUALIZED UPPER ABDOMEN: Normal. OTHER FINDINGS: None. IMPRESSION: Mild increase in left pneumothorax identified. Left pleural effusion increasing. Left basilar airspace disease unchanged. Findings discussed with Nurse Romero with written down and read back verification 10/23/2018 5:15 p.m..
--- NOTE | 2018-10-23 20:54 | CP.PCM.CON ---
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 The patient was to receive PRBC transfusion in outpatient infusion but on route became dizzy and almost passed out. He notes to blood tinged urine but denies dysuria. He denies fevers and chills. Past medical history: COPD, AML, lung mass, pneumothorax Past surgical history: Denies Family history: Denies hematologic and oncologic problems Social history: Former tobacco abuse Allergies: NKA Review of systems: All remaining review of systems including HEENT, cardiovascular, respiratory, gastrointestinal, genitourinary, musculoskeletal, dermatologic, neurologic, and psychiatric are negative unless mentioned in the HPI. Past Patient History - Infectious Disease Hx of Infectious Diseases: None - Past Medical History & Family History Past Medical History?: Yes - Past Social History Smoking Status: Former Smoker - CARDIAC Hx Cardiac Disorders: No - PULMONARY Hx Respiratory Disorders: No - NEUROLOGICAL Hx Neurological Disorder: No - HEENT Hx HEENT Problems: No - ENDOCRINE/METABOLIC Hx Endocrine Disorders: No - HEMATOLOGICAL/ONCOLOGICAL Hx Blood Disorders: Yes Hx Leukemia: Yes Other/Comment: Hgb 4.6 - INTEGUMENTARY Hx Dermatological Problems: No - MUSCULOSKELETAL/RHEUMATOLOGICAL Hx Musculoskeletal Disorders: No - GASTROINTESTINAL Hx Gastrointestinal Disorders: Yes Other/Comment: (+) stool occult blood - GENITOURINARY/GYNECOLOGICAL Hx Genitourinary Disorders: No - PSYCHIATRIC Hx Substance Use: No - SURGICAL HISTORY Hx Surgeries: No - ANESTHESIA Hx Anesthesia: No Meds Allergies/Adverse Reactions: Allergies Allergy/AdvReac Type Severity Reaction Status Date / Time No Known Allergies Allergy Verified 10/22/18 06:45 - Medications Medications: Current Medications Albuterol/Ipratropium (Duoneb 3 Mg/0.5 Mg (3 Ml) Ud) 3 ml INH RQ6 PRN PRN Reason: Shortness of Breath Docusate Sodium (Colace) 100 mg PO BID [facility] Last Admin: 10/23/18 17:17 Dose: 100 mg Furosemide (Lasix) 20 mg PO DAILY [facility] Furosemide (Lasix) 20 mg IVP DAILY [facility] Last Admin: 10/23/18 09:22 Dose: Not Given Lisinopril (Zestril) 5 mg PO DAILY [facility] Ondansetron HCl (Zofran Inj) 4 mg IVP DAILY@ONCE PRN PRN Reason: Nausea/Vomiting Pantoprazole Sodium (Protonix Ec Tab) 40 mg PO DAILY [facility] Pantoprazole Sodium (Protonix Inj) 40 mg IVP Q12H [facility] Last Admin: 10/23/18 09:22 Dose: 40 mg Tamsulosin HCl (Flomax) 0.4 mg PO BID [facility] Last Admin: 10/23/18 17:16 Dose: 0.4 mg Physical Exam - Constitutional Appears: Cachectic - Head Exam Head Exam: ATRAUMATIC - Eye Exam Eye Exam: Normal appearance - ENT Exam ENT Exam: Mucous Membranes Dry - Respiratory Exam Respiratory Exam: NORMAL BREATHING PATTERN - Cardiovascular Exam Cardiovascular Exam: +S1, +S2 - GI/Abdominal Exam GI & Abdominal Exam: Normal Bowel Sounds - Extremities Exam Extremities exam: Positive for: normal inspection - Neurological Exam Neurological exam: Oriented x3 - Psychiatric Exam Psychiatric exam: Normal Affect, Normal Mood - Skin Skin Exam: Warm Results - Vital Signs Recent Vital Signs: Last Vital Signs Temp 98.0 F 10/23/18 15:00 Pulse 81 10/23/18 18:00 Resp 20 10/23/18 15:00 BP 111/65 10/23/18 15:00 Pulse Ox 95 10/23/18 15:00 - Labs Result Diagrams: 10/23/18 07:57 10/23/18 07:57 Labs: Laboratory Results - last 24 hr 10/22/18 10/23/18 10/23/18 11:59 00:39 00:39 WBC RBC Hgb Hct MCV MCH MCHC RDW Plt Count MPV Neut % (Auto) Lymph % (Auto) [place] % (Auto) Eos % (Auto) Baso % (Auto) Neut # (Auto) Lymph # (Auto) [place] # (Auto) Eos # (Auto) Baso # (Auto) Total Counted Neutrophils % (Manual) Band Neutrophils % Lymphocytes % (Manual) Reactive Lymphs % Monocytes % (Manual) Eosinophils % (Manual) Basophils % (Manual) Metamyelocytes % Myelocytes % Promyelocytes % Blast Cells % Plasma Cell % (Manual) Nucleated RBC % Hypersegmented Polys Smudge Cells Toxic Granulation Dohle Bodies Nazanin Rods Platelet Estimate Plt Clumps, EDTA Large Platelets Giant Platelets RBC Morphology Polychromasia Hypochromasia (manual) Poikilocytosis (manual Basophilic Stippling Anisocytosis (manual) Microcytosis (manual) Macrocytosis (manual) Spherocytes Sickle Cells Target Cells Tear Drop Cells Ovalocytes Stomatocytes Helmet Cells Gunderson-Anton Bodies [place] Cells Acanthocytes (Spur) Rouleaux Schistocytes Sodium Potassium Chloride Carbon Dioxide Anion Gap BUN Creatinine Est GFR ( Amer) Est GFR (Non-Af Amer) Random Glucose Calcium Total Bilirubin AST ALT Alkaline Phosphatase Total Protein Albumin Globulin Albumin/Globulin Ratio Urine Color Urine Clarity Urine pH Ur Specific [place] Urine Protein Urine Glucose (UA) Urine Ketones Urine Blood Urine Nitrate Urine Bilirubin Urine Urobilinogen Ur Leukocyte Esterase Urine WBC (Auto) Urine RBC (Auto) Ur Squamous Epith Cells Urine Bacteria Stool Occult Blood Cancelled Negative Stool Occult Blood #2 Cancelled Blood Type B POSITIVE Antibody Screen Negative 10/23/18 10/23/18 10/23/18 07:57 07:57 12:23 WBC 1.5 L* RBC 2.54 L Hgb 7.3 L Hct 21.9 L MCV 86.2 MCH 28.7 MCHC 33.2 RDW 14.4 Plt Count 38 L D MPV 8.7 Neut % (Auto) 0.4 L Lymph % (Auto) 50.5 H [place] % (Auto) 48.7 H Eos % (Auto) 0.4 Baso % (Auto) 0.0 Neut # (Auto) 0.0 L Lymph # (Auto) 0.7 L [place] # (Auto) 0.7 Eos # (Auto) 0.0 Baso # (Auto) 0.0 Total Counted Cancelled Neutrophils % (Manual) Cancelled Band Neutrophils % Cancelled Lymphocytes % (Manual) Cancelled Reactive Lymphs % Cancelled Monocytes % (Manual) Cancelled Eosinophils % (Manual) Cancelled Basophils % (Manual) Cancelled Metamyelocytes % Cancelled Myelocytes % Cancelled Promyelocytes % Cancelled Blast Cells % Cancelled Plasma Cell % (Manual) Cancelled Nucleated RBC % Cancelled Hypersegmented Polys Cancelled Smudge Cells Cancelled Toxic Granulation Cancelled Dohle Bodies Cancelled Nazanin Rods Cancelled Platelet Estimate Cancelled Plt Clumps, EDTA Cancelled Large Platelets Cancelled Giant Platelets Cancelled RBC Morphology Cancelled Polychromasia Cancelled Hypochromasia (manual) Cancelled Poikilocytosis (manual Cancelled Basophilic Stippling Cancelled Anisocytosis (manual) Cancelled Microcytosis (manual) Cancelled Macrocytosis (manual) Cancelled Spherocytes Cancelled Sickle Cells Cancelled Target Cells Cancelled Tear Drop Cells Cancelled Ovalocytes Cancelled Stomatocytes Cancelled Helmet Cells Cancelled Gunderson-Anton Bodies Cancelled [place] Cells Cancelled Acanthocytes (Spur) Cancelled Rouleaux Cancelled Schistocytes Cancelled Sodium 139 Potassium 3.5 L Chloride 104 Carbon Dioxide 25 Anion Gap 13 BUN 35 H Creatinine 1.3 Est GFR ( Amer) > 60 Est GFR (Non-Af Amer) 54 Random Glucose 96 Calcium 8.8 Total Bilirubin 0.9 AST 18 ALT 19 L D Alkaline Phosphatase 73 Total Protein 6.3 Albumin 3.0 L Globulin 3.3 Albumin/Globulin Ratio 0.9 L Urine Color Yellow Urine Clarity Hazy Urine pH 5.0 Ur Specific [place] 1.011 Urine Protein Negative Urine Glucose (UA) Normal Urine Ketones Negative Urine Blood 3+ H Urine Nitrate Negative Urine Bilirubin Negative Urine Urobilinogen Normal Ur Leukocyte Esterase Neg Urine WBC (Auto) 2 Urine RBC (Auto) 33 H Ur Squamous Epith Cells < 1 Urine Bacteria Rare Stool Occult Blood Stool Occult Blood #2 Blood Type Antibody Screen Assessment & Plan (1) Pancytopenia Assessment and Plan: secondary to AML neutropenic precautions transfusion support goal hgb > 8, plt > 20,000 given hematuria outpatient decitabine on 11/15/18 Status: Acute (2) AML (acute myeloblastic leukemia) Assessment and Plan: not an induction chemotherapy candidate on hypomethylating agent treatment as outpatient Thank you for this interesting consult. Status: Acute
--- NOTE | 2018-10-23 21:00 | CP.PCM.PN ---
Subjective - Date & Time of Evaluation Date of Evaluation: 10/23/18 Time of Evaluation: 18:00 - Subjective Subjective: Feeling better, hematuria resolved. Objective - Vital Signs/Intake and Output Vital Signs (last 24 hours): Temp Pulse Resp BP Pulse Ox 98.0 F 81 20 111/65 95 10/23/18 15:00 10/23/18 18:00 10/23/18 15:00 10/23/18 15:00 10/23/18 15:00 Intake and Output: 10/23/18 10/24/18 18:59 06:59 Intake Total 325 Balance 325 - Medications Medications: Current Medications Albuterol/Ipratropium (Duoneb 3 Mg/0.5 Mg (3 Ml) Ud) 3 ml INH RQ6 PRN PRN Reason: Shortness of Breath Docusate Sodium (Colace) 100 mg PO BID [facility] Last Admin: 10/23/18 17:17 Dose: 100 mg Furosemide (Lasix) 20 mg PO DAILY [facility] Furosemide (Lasix) 20 mg IVP DAILY [facility] Last Admin: 10/23/18 09:22 Dose: Not Given Lisinopril (Zestril) 5 mg PO DAILY [facility] Ondansetron HCl (Zofran Inj) 4 mg IVP DAILY@ONCE PRN PRN Reason: Nausea/Vomiting Pantoprazole Sodium (Protonix Ec Tab) 40 mg PO DAILY [facility] Pantoprazole Sodium (Protonix Inj) 40 mg IVP Q12H [facility] Last Admin: 10/23/18 20:51 Dose: 40 mg Tamsulosin HCl (Flomax) 0.4 mg PO BID [facility] Last Admin: 10/23/18 17:16 Dose: 0.4 mg - Labs Labs: 10/23/18 07:57 10/23/18 07:57 PT 13.3 SECONDS (9.7-12.2) H 10/22/18 06:59 INR 1.2 10/22/18 06:59 APTT 30 SECONDS (21-34) 10/22/18 06:59 - Head Exam Head Exam: ATRAUMATIC - Eye Exam Eye Exam: Normal appearance - ENT Exam ENT Exam: Mucous Membranes Dry - Respiratory Exam Respiratory Exam: NORMAL BREATHING PATTERN - Cardiovascular Exam Cardiovascular Exam: +S1, +S2 - GI/Abdominal Exam GI & Abdominal Exam: Normal Bowel Sounds Assessment and Plan (1) Pancytopenia Assessment & Plan: secondary to AML transfusion support goal hgb > 8 and plt > 20,000 Status: Acute (2) AML (acute myeloblastic leukemia) Assessment & Plan: outpatient decitabine cycle 2 on 11/15/18 Status: Acute
[2018-10-24 08:53] LABS: LYMPH # 1.2 K/uL (1.0-4.3); LYMPH % 68.4 % (20.0-40.0); MEAN CELL VOLUME 86.8 fL (80.0-94.0); MEAN CORPUSCULAR HEMOGLOBIN 29.1 pg (27.0-31.0); MEAN CORPUSCULAR HGB CONC 33.5 g/dL (33.0-37.0); MEAN PLATELET VOLUME 9.7 fL (7.2-11.7); MONO # 0.5 K/uL (0.0-0.8); MONO % 30.4 % (0.0-10.0); NEUT % 1.2 % (50.0-75.0); NRBC % 1.9 % (0.0-2.0); RBC 3.41 Mil/uL (4.40-5.90); RED CELL DISTRIBUTION WIDTH 14.4 % (11.5-14.5)
[2018-10-24 09:01] LABS: ALB/GLOB RATIO 0.9 (1.0-2.1); ALBUMIN 3.3 g/dL (3.5-5.0); ALT/SGPT 24 U/L (21-72); AST/SGOT 17 U/L (17-59); BLOOD UREA NITROGEN 35 mg/dL (9-20); CALCIUM 9.2 mg/dl (8.6-10.4); GFR NON-AFRICAN AMERICAN 54
[2018-10-24 09:18] LABS: HEMOGLOBIN 9.9 g/dL (12.0-18.0); WHITE BLOOD COUNT 1.8 K/uL (4.8-10.8)
--- NOTE | 2018-10-24 10:37 | CP.PCM.PN ---
Subjective - Date & Time of Evaluation Date of Evaluation: 10/24/18 Time of Evaluation: 10:34 - Subjective Subjective: Medicine Note for Dr. Montoya's Service Patient was seen and examined at bedside. Patient denies any more hematuria or bloody stool. Denied any fever, chills, chest pain, shortness of breath, abdominal pain, n/v/d/c, or urinary symptoms. Objective - Vital Signs/Intake and Output Vital Signs (last 24 hours): Temp Pulse Resp BP Pulse Ox 97.9 F 87 20 121/59 L 96 10/24/18 07:00 10/24/18 07:15 10/24/18 07:00 10/24/18 07:00 10/24/18 07:05 - Medications Medications: Current Medications Albuterol/Ipratropium (Duoneb 3 Mg/0.5 Mg (3 Ml) Ud) 3 ml INH RQ6 PRN PRN Reason: Shortness of Breath Docusate Sodium (Colace) 100 mg PO BID [facility] Last Admin: 10/24/18 09:30 Dose: 100 mg Furosemide (Lasix) 20 mg PO DAILY [facility] Furosemide (Lasix) 20 mg IVP DAILY [facility] Last Admin: 10/23/18 09:22 Dose: Not Given Lisinopril (Zestril) 5 mg PO DAILY [facility] Ondansetron HCl (Zofran Inj) 4 mg IVP DAILY@ONCE PRN PRN Reason: Nausea/Vomiting Pantoprazole Sodium (Protonix Ec Tab) 40 mg PO DAILY [facility] Pantoprazole Sodium (Protonix Inj) 40 mg IVP Q12H [facility] Last Admin: 10/24/18 09:30 Dose: 40 mg Tamsulosin HCl (Flomax) 0.4 mg PO BID [facility] Last Admin: 10/24/18 09:30 Dose: 0.4 mg - Labs Labs: 10/24/18 08:33 10/24/18 08:33 PT 13.3 SECONDS (9.7-12.2) H 10/22/18 06:59 INR 1.2 10/22/18 06:59 APTT 30 SECONDS (21-34) 10/22/18 06:59 - Additional Findings Additional findings: - Constitutional Appears: Non-toxic, No Acute Distress, Cachectic, Chronically Ill - Head Exam Head Exam: ATRAUMATIC, NORMAL INSPECTION, NORMOCEPHALIC - Eye Exam Eye Exam: EOMI, Normal appearance, PERRL Pupil Exam: NORMAL ACCOMODATION - ENT Exam ENT Exam: Mucous Membranes Moist Additional comments: poor dentition, missing several teeth - Respiratory Exam Respiratory Exam: Clear to Auscultation Bilateral, NORMAL BREATHING PATTERN. absent: Rales, Rhonchi, Wheezes Additional comments: Absent breath sound ORALIA - Cardiovascular Exam Cardiovascular Exam: +S1, +S2 - GI/Abdominal Exam GI & Abdominal Exam: Normal Bowel Sounds, Soft. absent: Firm, Guarding, Hernia - Extremities Exam Extremities exam: Positive for: full ROM. Negative for: calf tenderness, pedal edema Additional comments: echymosis through out body - Back Exam Back exam: absent: CVA tenderness (L), CVA tenderness (R) - Neurological Exam Neurological exam: Alert, CN II-XII Intact, Oriented x3 - Psychiatric Exam Psychiatric exam: Normal Affect, Normal Mood - Skin Skin Exam: Dry, Intact, Normal Color, Warm Assessment and Plan - Assessment and Plan (Free Text) Assessment: 77 M w/ PMHx: of recently diagnosed AML, CHF, BPD, ? COPD/ emphysema presented to ED following 1 episode of dizziness at transfusion center; in ED found to have Hgb 7.5 & platelets 5: Plan: AML Pancytopenia Dizziness - F/u w/ Dr. Bobby recs - CT head: No bleed - Stool occult - negative x2 - Transfused 2 units platlets, Transfuse 2 unit PRBcs - to maintain goal hgb > 8 and plt > 20,000 - Patient is to continue with outpatient tx with Dr. Bobby Pneumothorax - ICU consult: no ICU warranted at this time - Patient had this on prior admission, which was self-limiting - Cxray: Left-sided pneumothorax measuring approximately 1.6 cm from pleural edge. Small left pleural effusion. Cardiomegaly. Ectatic aorta. Atherosclerotic calcifications. - Patient's vitals are stable, saturating well with NC - Serial CXRs - appears unchanged, pending official reads JARRED _ RESOLVED Hematuria - resolving - thrombocytopenia vs UTI vs bladder Ca vs ? - likely 2/2 to low platelets - consider renal ultrasound - UC - negative to date - Transfused 2 units platelets, Transfuse 1 unit PRBCs - Platelets improving BPH - continue w/ home medications flomax 0.4 PO BID Systolic and diastolic heart failure Chronic - Echo (09/28): LVEF of 36%, diastolic dysfunction. Trace MR. Mild TR. Small pericardial effusion - lasix 20 IVP daily - held due to hypotension COPD/Emphysema Chronic - asytomnatic - continue to monitor - if Oxygen needed, please use humidified O2 Left bundle branch block - unchanged from previous visit - consider cardiology follow up Prophylaxis - DVT: SCDs, avoid chemical w/ platlets of 5 - GI: continue w/ home medication protonix 40 PO daily Disposition: Will continue to monitor to maintain goal hgb > 8 and plt > 20,000. Possible discharge tomorrow 10/25/18. Case discussed with Dr. Montoya, Vonda Thomas DO, PGY2
[2018-10-25 08:43] LABS: EOS % 0.2 % (0.0-4.0); HEMOGLOBIN 9.2 g/dL (12.0-18.0); LYMPH % 64.1 % (20.0-40.0); MEAN CELL VOLUME 86.5 fL (80.0-94.0); MEAN CORPUSCULAR HEMOGLOBIN 29.1 pg (27.0-31.0); MEAN CORPUSCULAR HGB CONC 33.6 g/dL (33.0-37.0); MEAN PLATELET VOLUME 9.2 fL (7.2-11.7); MONO # 0.5 K/uL (0.0-0.8); MONO % 34.6 % (0.0-10.0); NEUT % 1.1 % (50.0-75.0); RBC 3.18 Mil/uL (4.40-5.90); RED CELL DISTRIBUTION WIDTH 14.3 % (11.5-14.5)
[2018-10-25 08:49] LABS: ALBUMIN 3.3 g/dL (3.5-5.0); ALT/SGPT 22 U/L (21-72); AST/SGOT 14 U/L (17-59); BLOOD UREA NITROGEN 31 mg/dL (9-20); GFR NON-AFRICAN AMERICAN 59
[2018-10-25 08:51] LABS: WHITE BLOOD COUNT 1.5 K/uL (4.8-10.8)
--- NOTE | 2018-10-25 16:10 | CP.PCM.PN ---
Subjective - Date & Time of Evaluation Date of Evaluation: 10/25/18 Time of Evaluation: 09:00 - Subjective Subjective: Radha Masterson PGY1 Progress Note for Dr. Montoya Pt was examined at bedside this morning. He has no complaints today. He denies any dizziness, shortness of breath, chest pain, abdominal pain, diarrhea, dysuria, nausea, vomiting. Objective - Vital Signs/Intake and Output Vital Signs (last 24 hours): Temp Pulse Resp BP Pulse Ox 98.0 F 85 20 116/71 96 10/25/18 15:00 10/25/18 15:00 10/25/18 15:00 10/25/18 15:00 10/25/18 15:00 Intake and Output: 10/25/18 10/25/18 06:59 18:59 Output Total 200 Balance -200 - Medications Medications: Current Medications Albuterol/Ipratropium (Duoneb 3 Mg/0.5 Mg (3 Ml) Ud) 3 ml INH RQ6 PRN PRN Reason: Shortness of Breath Docusate Sodium (Colace) 100 mg PO BID [facility] Last Admin: 10/25/18 09:12 Dose: 100 mg Furosemide (Lasix) 20 mg PO DAILY [facility] Furosemide (Lasix) 20 mg IVP DAILY [facility] Last Admin: 10/23/18 09:22 Dose: Not Given Lisinopril (Zestril) 5 mg PO DAILY [facility] Ondansetron HCl (Zofran Inj) 4 mg IVP DAILY@ONCE PRN PRN Reason: Nausea/Vomiting Pantoprazole Sodium (Protonix Ec Tab) 40 mg PO DAILY [facility] Pantoprazole Sodium (Protonix Inj) 40 mg IVP Q12H [facility] Last Admin: 10/25/18 09:12 Dose: 40 mg Tamsulosin HCl (Flomax) 0.4 mg PO BID [facility] Last Admin: 10/25/18 09:12 Dose: 0.4 mg - Labs Labs: 10/25/18 08:28 10/25/18 08:28 PT 13.3 SECONDS (9.7-12.2) H 10/22/18 06:59 INR 1.2 10/22/18 06:59 APTT 30 SECONDS (21-34) 10/22/18 06:59 - Constitutional Appears: Well, No Acute Distress - Head Exam Head Exam: ATRAUMATIC, NORMOCEPHALIC - Eye Exam Eye Exam: EOMI, Normal appearance, PERRL Pupil Exam: NORMAL ACCOMODATION - ENT Exam ENT Exam: Mucous Membranes Moist - Respiratory Exam Respiratory Exam: Clear to Ausculation Bilateral, NORMAL BREATHING PATTERN. absent: Rales, Rhonchi, Wheezes - Cardiovascular Exam Cardiovascular Exam: REGULAR RHYTHM, +S1, +S2. absent: Gallop, Rubs, Murmur - GI/Abdominal Exam GI & Abdominal Exam: Soft, Normal Bowel Sounds. absent: Distended, Firm, Tenderness - Extremities Exam Extremities Exam: Normal Inspection. absent: Pedal Edema - Back Exam Back Exam: NORMAL INSPECTION - Neurological Exam Neurological Exam: Alert, Awake, Oriented x3 - Psychiatric Exam Psychiatric exam: Normal Affect, Normal Mood - Skin Skin Exam: Normal Color Assessment and Plan - Assessment and Plan (Free Text) Assessment: 77 M w/ PMHx: of recently diagnosed AML, CHF, BPD, ? COPD/ emphysema presented to ED following 1 episode of dizziness at transfusion center; in ED found to have Hgb 7.5 & platelets 5. S/p 4u platelets and 2u PRBCs Plan: AML Pancytopenia - Dizziness improved - CT head: No bleed - Stool occult - negative x2 - S/p 4 units platelets, 2 unit PRBcs - to maintain goal hgb > 8 and plt > 20,000 - Patient is to continue with outpatient tx with Dr. Bobby - Heme/Onc consulted, Dr. Bobby - recjuancarlos appreciated Pneumothorax - ICU consult: no ICU warranted at this time - Patient had this on prior admission, which was self-limiting - CXR: Left-sided pneumothorax measuring approximately 1.6 cm from pleural edge. Small left pleural effusion. Cardiomegaly. Ectatic aorta. therosclerotic calcifications. - saturating well with NC - Serial CXRs - appears unchanged Hematuria - resolved - thrombocytopenia vs UTI vs bladder Ca vs ? - likely 2/2 to low platelets - UCx - negative to date - Transfused 4 units platelets, Transfuse 2 units PRBCs BPH - continue w/ home medications flomax 0.4 PO BID Systolic and diastolic heart failure Chronic - Echo (09/28): LVEF of 36%, diastolic dysfunction. Trace MR. Mild TR. Small pericardial effusion - lasix 20 IVP daily - held due to hypotension COPD/Emphysema Chronic - asytomnatic - continue to monitor - if Oxygen needed, please use humidified O2 Left bundle branch block - unchanged from previous visit - consider cardiology follow up Prophylaxis - DVT: SCDs, avoid chemical w/ platlets of 5 - GI: continue w/ home medication protonix 40 PO daily Disposition: Will continue to monitor to maintain goal hgb > 8 and plt > 20,000. Possible discharge tomorrow Case discussed with Dr. Montoya
--- NOTE | 2018-10-25 21:37 | CP.PCM.PN ---
Subjective - Date & Time of Evaluation Date of Evaluation: 10/25/18 Time of Evaluation: 20:00 - Subjective Subjective: No complaints, more comfortable Objective - Vital Signs/Intake and Output Vital Signs (last 24 hours): Temp Pulse Resp BP Pulse Ox 98.3 F 85 18 117/62 96 10/25/18 19:48 10/25/18 19:48 10/25/18 19:48 10/25/18 19:48 10/25/18 15:00 Intake and Output: 10/25/18 10/26/18 18:59 06:59 Intake Total 206 297 Balance 206 297 - Medications Medications: Current Medications Albuterol/Ipratropium (Duoneb 3 Mg/0.5 Mg (3 Ml) Ud) 3 ml INH RQ6 PRN PRN Reason: Shortness of Breath Docusate Sodium (Colace) 100 mg PO BID [facility] Last Admin: 10/25/18 18:50 Dose: 100 mg Furosemide (Lasix) 20 mg PO DAILY [facility] Furosemide (Lasix) 20 mg IVP DAILY [facility] Last Admin: 10/23/18 09:22 Dose: Not Given Lisinopril (Zestril) 5 mg PO DAILY [facility] Ondansetron HCl (Zofran Inj) 4 mg IVP DAILY@ONCE PRN PRN Reason: Nausea/Vomiting Pantoprazole Sodium (Protonix Ec Tab) 40 mg PO DAILY [facility] Pantoprazole Sodium (Protonix Inj) 40 mg IVP Q12H [facility] Last Admin: 10/25/18 21:30 Dose: 40 mg Tamsulosin HCl (Flomax) 0.4 mg PO BID [facility] Last Admin: 10/25/18 18:50 Dose: 0.4 mg - Labs Labs: 10/25/18 08:28 10/25/18 08:28 PT 13.3 SECONDS (9.7-12.2) H 10/22/18 06:59 INR 1.2 10/22/18 06:59 APTT 30 SECONDS (21-34) 10/22/18 06:59 - Head Exam Head Exam: ATRAUMATIC - Eye Exam Eye Exam: Normal appearance - ENT Exam ENT Exam: Mucous Membranes Dry - Respiratory Exam Respiratory Exam: NORMAL BREATHING PATTERN - Cardiovascular Exam Cardiovascular Exam: +S1, +S2 - GI/Abdominal Exam GI & Abdominal Exam: Normal Bowel Sounds Assessment and Plan (1) Pancytopenia Assessment & Plan: secondary to AML s/p decitabine goal hgb > 8 and plt > 20,000 Status: Acute (2) AML (acute myeloblastic leukemia) Assessment & Plan: outpatient decitabine Status: Acute
--- NOTE | 2018-10-25 21:39 | CP.PCM.PN ---
Subjective - Date & Time of Evaluation Date of Evaluation: 10/24/18 Time of Evaluation: 17:00 - Subjective Subjective: Feeling better Objective - Vital Signs/Intake and Output Vital Signs (last 24 hours): Temp Pulse Resp BP Pulse Ox 98.3 F 85 18 117/62 96 10/25/18 19:48 10/25/18 19:48 10/25/18 19:48 10/25/18 19:48 10/25/18 15:00 Intake and Output: 10/25/18 10/26/18 18:59 06:59 Intake Total 206 297 Balance 206 297 - Medications Medications: Current Medications Albuterol/Ipratropium (Duoneb 3 Mg/0.5 Mg (3 Ml) Ud) 3 ml INH RQ6 PRN PRN Reason: Shortness of Breath Docusate Sodium (Colace) 100 mg PO BID [facility] Last Admin: 10/25/18 18:50 Dose: 100 mg Furosemide (Lasix) 20 mg PO DAILY [facility] Furosemide (Lasix) 20 mg IVP DAILY [facility] Last Admin: 10/23/18 09:22 Dose: Not Given Lisinopril (Zestril) 5 mg PO DAILY [facility] Ondansetron HCl (Zofran Inj) 4 mg IVP DAILY@ONCE PRN PRN Reason: Nausea/Vomiting Pantoprazole Sodium (Protonix Ec Tab) 40 mg PO DAILY [facility] Pantoprazole Sodium (Protonix Inj) 40 mg IVP Q12H [facility] Last Admin: 10/25/18 21:30 Dose: 40 mg Tamsulosin HCl (Flomax) 0.4 mg PO BID [facility] Last Admin: 10/25/18 18:50 Dose: 0.4 mg - Labs Labs: 10/25/18 08:28 10/25/18 08:28 PT 13.3 SECONDS (9.7-12.2) H 10/22/18 06:59 INR 1.2 10/22/18 06:59 APTT 30 SECONDS (21-34) 10/22/18 06:59 - Head Exam Head Exam: ATRAUMATIC - Eye Exam Eye Exam: Normal appearance - ENT Exam ENT Exam: Mucous Membranes Dry - Respiratory Exam Respiratory Exam: NORMAL BREATHING PATTERN - Cardiovascular Exam Cardiovascular Exam: +S1, +S2 - GI/Abdominal Exam GI & Abdominal Exam: Normal Bowel Sounds Assessment and Plan (1) Pancytopenia Assessment & Plan: secondary to AML transfusion support goal hgb > 8 and plt > 20,000 Status: Acute (2) AML (acute myeloblastic leukemia) Assessment & Plan: outpatient decitabine cycle 2 on 11/15/18 Status: Acute
[2018-10-26 00:11] VITALS: RESP 20; TEMP 97.9; O2SAT 95
[2018-10-26 06:58] LABS: EOS % 0.1 % (0.0-4.0); HEMOGLOBIN 8.4 g/dL (12.0-18.0); LYMPH % 62.7 % (20.0-40.0); MEAN CELL VOLUME 85.4 fL (80.0-94.0); MEAN CORPUSCULAR HEMOGLOBIN 28.7 pg (27.0-31.0); MEAN CORPUSCULAR HGB CONC 33.6 g/dL (33.0-37.0); MEAN PLATELET VOLUME 9.2 fL (7.2-11.7); MONO # 0.6 K/uL (0.0-0.8); MONO % 36.2 % (0.0-10.0); NRBC % 1.6 % (0.0-2.0); PLATELET COUNT 42 K/uL (130-400); RBC 2.94 Mil/uL (4.40-5.90); RED CELL DISTRIBUTION WIDTH 14.2 % (11.5-14.5)
[2018-10-26 07:16] LABS: WHITE BLOOD COUNT 1.6 K/uL (4.8-10.8)
[2018-10-26 07:27] LABS: ALBUMIN 3.1 g/dL (3.5-5.0); ALT/SGPT 21 U/L (21-72); AST/SGOT 18 U/L (17-59); BLOOD UREA NITROGEN 30 mg/dL (9-20); CALCIUM 8.8 mg/dl (8.6-10.4); GFR NON-AFRICAN AMERICAN 59
[2018-10-26 08:22] VITALS: BP 122/66; PULSE 89
[2018-10-26 08:35] LABS: LYMPHOCYTE 60 % (20-40); MONOCYTE 36 % (0-10); NEUTROPHIL 4 % (50-75); NUCLEATED RED BLOOD CELL 1 % (0-0); TOTAL CELLS COUNTED 100
[2018-10-26 08:36] LABS: ANISOCYTOSIS SLIGHT; HYPOCHROMIC SLIGHT; OVALOCYTES SLIGHT; POIKILOCYTOSIS SLIGHT
[2018-10-26 08:37] LABS: BURR CELLS SLIGHT; PLATELET ESTIMATE DECREASED (NORMAL); TEARDROP CELLS SLIGHT
--- NOTE | 2018-10-26 11:02 | CP.PCM.DIS ---
Provider - Provider Date of Admission: 10/24/18 10:42 Attending physician: Andrzej Montoya Jr, MD Consults: 10/22/18 08:40 Hematology Oncology Consult Routine Comment: Consulting Provider: Kartik Bobby Consulting Physician: Kartik Bobby Reason for Consult: pancytopenia, AML 10/22/18 13:12 Critical Care Consult Routine Comment: Consulting Provider: Billy Smith Consulting Physician: Billy Smith Reason for Consult: pneumothorax, platlets 5, hx of AML Time Spent in preparation of Discharge (in minutes): 70 Hospital Course - Lab Results Lab Results: Micro Results 10/22/18 17:59 Urine,Clean Catch Urine Culture - Final No Growth (<1,000 CFU/ML) Most Recent Lab Values WBC 1.6 K/uL (4.8-10.8) L* 10/26/18 06:43 RBC 2.94 Mil/uL (4.40-5.90) L 10/26/18 06:43 Hgb 8.4 g/dL (12.0-18.0) L 10/26/18 06:43 Hct 25.1 % (35.0-51.0) L 10/26/18 06:43 MCV 85.4 fL (80.0-94.0) 10/26/18 06:43 MCH 28.7 pg (27.0-31.0) 10/26/18 06:43 MCHC 33.6 g/dL (33.0-37.0) 10/26/18 06:43 RDW 14.2 % (11.5-14.5) 10/26/18 06:43 Plt Count 42 K/uL (130-400) L D 10/26/18 06:43 Manual Plt Count 10 K/uL (130-400) L* D 10/25/18 08:28 MPV 9.2 fL (7.2-11.7) 10/26/18 06:43 Neut % (Auto) 1.0 % (50.0-75.0) L 10/26/18 06:43 Lymph % (Auto) 62.7 % (20.0-40.0) H 10/26/18 06:43 [place] % (Auto) 36.2 % (0.0-10.0) H 10/26/18 06:43 Eos % (Auto) 0.1 % (0.0-4.0) 10/26/18 06:43 Baso % (Auto) 0.0 % (0.0-2.0) 10/26/18 06:43 Neut # (Auto) 0.0 K/uL (1.8-7.0) L 10/26/18 06:43 Lymph # (Auto) 1.0 K/uL (1.0-4.3) 10/26/18 06:43 [place] # (Auto) 0.6 K/uL (0.0-0.8) 10/26/18 06:43 Eos # (Auto) 0.0 K/uL (0.0-0.7) 10/26/18 06:43 Baso # (Auto) 0.0 K/uL (0.0-0.2) 10/26/18 06:43 Total Counted Cancelled 10/23/18 07:57 Neutrophils % (Manual) 4 % (50-75) L 10/26/18 06:43 Band Neutrophils % Cancelled 10/23/18 07:57 Lymphocytes % (Manual) 60 % (20-40) H 10/26/18 06:43 Reactive Lymphs % Cancelled 10/23/18 07:57 Monocytes % (Manual) 36 % (0-10) H 10/26/18 06:43 Eosinophils % (Manual) Cancelled 10/23/18 07:57 Basophils % (Manual) Cancelled 10/23/18 07:57 Metamyelocytes % Cancelled 10/23/18 07:57 Myelocytes % Cancelled 10/23/18 07:57 Promyelocytes % Cancelled 10/23/18 07:57 Blast Cells % Cancelled 10/23/18 07:57 Plasma Cell % (Manual) Cancelled 10/23/18 07:57 Nucleated RBC % 1 % (0-0) H 10/26/18 06:43 Hypersegmented Polys Cancelled 10/23/18 07:57 Smudge Cells Cancelled 10/23/18 07:57 Toxic Granulation Cancelled 10/23/18 07:57 Dohle Bodies Cancelled 10/23/18 07:57 Nazanin Rods Cancelled 10/23/18 07:57 Platelet Estimate Decreased (NORMAL) L 10/26/18 06:43 Plt Clumps, EDTA Cancelled 10/23/18 07:57 Large Platelets Cancelled 10/23/18 07:57 Giant Platelets Cancelled 10/23/18 07:57 RBC Morphology Cancelled 10/23/18 07:57 Polychromasia Slight 10/22/18 06:59 Hypochromasia (manual) Slight 10/26/18 06:43 Poikilocytosis (manual Slight 10/26/18 06:43 Basophilic Stippling Cancelled 10/23/18 07:57 Anisocytosis (manual) Slight 10/26/18 06:43 Microcytosis (manual) Cancelled 10/23/18 07:57 Macrocytosis (manual) Cancelled 10/23/18 07:57 Spherocytes Cancelled 10/23/18 07:57 Sickle Cells Cancelled 10/23/18 07:57 Target Cells Cancelled 10/23/18 07:57 Tear Drop Cells Slight 10/26/18 06:43 Ovalocytes Slight 10/26/18 06:43 Stomatocytes Cancelled 10/23/18 07:57 Helmet Cells Cancelled 10/23/18 07:57 Gunderson-Kellogg Bodies Cancelled 10/23/18 07:57 [place] Cells Slight 10/26/18 06:43 Acanthocytes (Spur) Cancelled 10/23/18 07:57 Rouleaux Cancelled 10/23/18 07:57 Schistocytes Cancelled 10/23/18 07:57 Retic Count 1.0 % (0.5-1.5) D 10/22/18 09:41 Haptoglobin 145.7 mg/dL (30.0-200.0) 10/22/18 09:44 PT 13.3 SECONDS (9.7-12.2) H 10/22/18 06:59 INR 1.2 10/22/18 06:59 APTT 30 SECONDS (21-34) 10/22/18 06:59 Sodium 139 mmol/L (132-148) 10/26/18 06:43 Potassium 3.9 mmol/L (3.6-5.2) 10/26/18 06:43 Chloride 105 mmol/L (98-107) 10/26/18 06:43 Carbon Dioxide 26 mmol/L (22-30) 10/26/18 06:43 Anion Gap 12 (10-20) 10/26/18 06:43 BUN 30 mg/dL (9-20) H 10/26/18 06:43 Creatinine 1.2 mg/dL (0.8-1.5) 10/26/18 06:43 Est GFR ( Amer) > 60 12 06:43 Est GFR (Non-Af Amer) 59 10/26/18 06:43 Random Glucose 96 mg/dL (75-110) 10/26/18 06:43 Calcium 8.8 mg/dl (8.6-10.4) 10/26/18 06:43 Total Bilirubin 0.6 mg/dL (0.2-1.3) 10/26/18 06:43 AST 18 U/L (17-59) 10/26/18 06:43 ALT 21 U/L (21-72) 10/26/18 06:43 Alkaline Phosphatase 63 U/L (38-126) 10/26/18 06:43 Lactate Dehydrogenase 523 U/L (313-618) 10/22/18 06:59 Total Protein 6.3 g/dL (6.3-8.3) 10/26/18 06:43 Albumin 3.1 g/dL (3.5-5.0) L 10/26/18 06:43 Globulin 3.2 gm/dL (2.2-3.9) 10/26/18 06:43 Albumin/Globulin Ratio 1.0 (1.0-2.1) 10/26/18 06:43 Urine Color Yellow (YELLOW) 10/23/18 12:23 Urine Clarity Hazy (Clear) 10/23/18 12:23 Urine pH 5.0 (5.0-8.0) 10/23/18 12:23 Ur Specific [place] 1.011 (1.003-1.030) 10/23/18 12:23 Urine Protein Negative mg/dL (NEGATIVE) 10/23/18 12:23 Urine Glucose (UA) Normal mg/dL (Normal) 10/23/18 12:23 Urine Ketones Negative mg/dL (NEGATIVE) 10/23/18 12:23 Urine Blood 3+ (NEGATIVE) H 10/23/18 12:23 Urine Nitrate Negative (NEGATIVE) 10/23/18 12:23 Urine Bilirubin Negative (NEGATIVE) 10/23/18 12:23 Urine Urobilinogen Normal mg/dL (0.2-1.0) 10/23/18 12:23 Ur Leukocyte Esterase Neg Michael/uL (Negative) 10/23/18 12:23 Urine WBC (Auto) 2 /hpf (0-5) 10/23/18 12:23 Urine RBC (Auto) 33 /hpf (0-3) H 10/23/18 12:23 Ur Squamous Epith Cells < 1 /hpf (0-5) 10/23/18 12:23 Urine Bacteria Rare (<OCC) 10/23/18 12:23 Stool Occult Blood Negative (NEGATIVE) 10/23/18 00:39 Stool Occult Blood #2 Cancelled 10/23/18 00:39 Blood Type B POSITIVE 10/22/18 11:59 Antibody Screen Negative 10/22/18 11:59 - Hospital Course Hospital Course: Upon Admission: 77 M w/ PMHx of recently diagnosed AML, CHF, BPD, ? COPD/ emphysema presented to ED following 1 episode of dizziness at transfusion center. Patient states he was sitting in a chair when he got dizzy. He felt like he was about to pass out and a INTEGRITY ENGINEER was called. Patient vitals were stable at time of INTEGRITY ENGINEER w/ no LOC/ head trauma reported. Patient was transferred to ED. In ED, patient states he is currently asymptomatic. patient states he was just discharge from rehab today. Patient denies chest pain, SOB, N/V, F/C, dysuria. Patient states he still has hematuria that he has been having for the past week or so. Patient has no other complaints. Patient was recently D/C'ed from [facility] [place] on 10/13/18 to rehab. Patient during stay was found to be pancytopenic and found to have AML. Additonally patient had self -resolved pneuomothorax during stay. Pt was found to have a pneumothorax on CXR, stable from prior. CBC showed platelet count of 4. ICU was consulted and pt was deemed stable for admission to [facility]. Pt was admitted for thrombocytopenia. Hospital Course: Heme/Onc was consulted and recommended transufsion with a goal of platelets >20,000 and Hb>8. Pt was transfused 4u platelets and 2u PRBCs. Serial CXRs showed stable pneumothorax. CT head was negative for any acute pathology. Pt platelet count increased to 42, Hb 8.4, and was deemed stable for discharge. Upon Discharge: Pt was deemed stable for discharge to home. He was instructed to take his home medications as prescribed and to follow up with Dr. Bobby within 5 days. Pt and pt's understood instructions and agreed. Discharge Exam - Head Exam Head Exam: ATRAUMATIC, NORMAL INSPECTION - Eye Exam Eye Exam: EOMI, Normal appearance Pupil Exam: NORMAL ACCOMODATION - Respiratory Exam Respiratory Exam: Decreased Breath Sounds, Clear to PA & Lateral, NORMAL B REATHING PATTERN. absent: Rales, Rhonchi, Wheezes, Respiratory Distress - Cardiovascular Exam Cardiovascular Exam: REGULAR RHYTHM, +S1, +S2. absent: Gallop, Rubs, Systolic Murmur - GI/Abdominal Exam GI & Abdominal Exam: Normal Bowel Sounds, Soft. absent: Distended, Firm, Tenderness - Extremities Exam Extremities exam: normal inspection - Neurological Exam Neurological exam: Alert, CN II-XII Intact, Oriented x3 - Psychiatric Exam Psychiatric exam: Normal Affect, Normal Mood - Skin Skin Exam: Normal Color Discharge Plan - Discharge Medications Prescriptions: Docusate [Colace] 100 mg PO BID #60 cap Furosemide [Lasix] 20 mg PO DAILY #30 tab Lisinopril [Zestril] 5 mg PO DAILY #30 tab Pantoprazole [Protonix EC Tab] 40 mg PO DAILY #30 ect Tamsulosin [Flomax] 0.4 mg PO BID #60 cap - Follow Up Plan Condition: STABLE Disposition: HOME/ ROUTINE Instructions: Gastrointestinal Bleeding (DC), Acute Myeloid Leukemia (AML), Adult (DC) Additional Instructions: Please follow up with your [employer] Anchor/Oncologist, Dr. Bobby within 5 days. Please call to make an appointment. Please continue to take your medications as prescribed. Please return to the emergency department if symptoms return. Take care and be well. Referrals: Kartik Bobby MD [Staff Provider] - Andrzej Montoya Jr., MD [Medical Doctor] -
--- NOTE | 2018-10-26 20:02 | CP.PCM.PN ---
Subjective - Date & Time of Evaluation Date of Evaluation: 10/26/18 Time of Evaluation: 10:00 - Subjective Subjective: No complaints. Objective - Vital Signs/Intake and Output Vital Signs (last 24 hours): Temp Pulse Resp BP Pulse Ox 97.9 F 89 20 122/66 95 10/26/18 08:21 10/26/18 08:21 10/26/18 08:21 10/26/18 08:21 10/26/18 08:21 - Labs Labs: 10/26/18 06:43 10/26/18 06:43 PT 13.3 SECONDS (9.7-12.2) H 10/22/18 06:59 INR 1.2 10/22/18 06:59 APTT 30 SECONDS (21-34) 10/22/18 06:59 - Head Exam Head Exam: ATRAUMATIC - Eye Exam Eye Exam: Normal appearance - ENT Exam ENT Exam: Mucous Membranes Dry - Respiratory Exam Respiratory Exam: NORMAL BREATHING PATTERN - Cardiovascular Exam Cardiovascular Exam: +S1, +S2 - GI/Abdominal Exam GI & Abdominal Exam: Normal Bowel Sounds Assessment and Plan (1) Pancytopenia Assessment & Plan: secondary to AML s/p decitabine goal hgb > 8 and plt > 20,000 Status: Acute (2) AML (acute myeloblastic leukemia) Assessment & Plan: outpatient decitabine Status: Acute
== END 2018-10-26 13:06 | disposition home or self-care (01) | DRG 835 ==
LOC: C.ER 06:35 → C.5S 08:02 → OBSVTOIN 10-24 10:42
PROVIDERS: ADMIT Internal Medicine; ATTEND Internal Medicine
DX: C92.00 Acute myeloblastic leukemia, not having achieved remission (principal); D61.818 Other pancytopenia; I50.42 Chronic combined systolic (congestive) and diastolic (congestive) heart failure; J93.83 Other pneumothorax; N17.9 Acute kidney failure, unspecified; K92.2 Gastrointestinal hemorrhage, unspecified; I44.7 Left bundle-branch block, unspecified; J44.9 Chronic obstructive pulmonary disease, unspecified; N40.0 Benign prostatic hyperplasia without lower urinary tract symptoms; R31.0 Gross hematuria; Z87.891 Personal history of nicotine dependence; I77.819 Aortic ectasia, unspecified site

== ENCOUNTER 2018-11-13 18:17 | Inpatient (IN) | payer MEDICARE ==
[2018-11-13 18:17] VITALS: BMI 15.3
--- NOTE | 2018-11-13 19:42 | C.PDOC ---
History Of Present Illness 78 y/o male presents to the ED complaining of dizziness, worsening since this morning. Denies any fevers, chills, nausea, vomiting, visual changes, SOB, or chest pain. Of note, patient was recent diagnosed with acute myeloid leukemia and was transfused a few times. He denies any black tarry stools. Patient is speaking in full sentences. Time Seen by Provider: 11/13/18 19:35 Chief Complaint (Nursing): Dizziness/Lightheaded History Per: Patient History/Exam Limitations: no limitations Onset/Duration Of Symptoms: Hrs Current Symptoms Are (Timing): Still Present Activity At Onset Of Symptoms: Standing Seizure Or Post-ictal Symptoms: None Fall Associated With With Symptoms: No Severity: None Pain Scale Rating Of: 0 Additional History Per: Family - Symptoms Of CVA Recent Aspirin Use: No Current Coumadin Use?: No Recent Head Trauma: No Past Medical History Reviewed: Historical Data, Nursing Documentation, Vital Signs Vital Signs: Last Vital Signs Temp Pulse 93 H 11/13/18 18:50 Resp 21 11/13/18 18:50 BP 168/107 H 11/13/18 19:11 Pulse Ox 99 11/13/18 18:50 - Medical History PMH: HTN, Peripheral Edema Other PMH: acute myeloid leukemia (AML) - [facility] Procedures EXTRACTION OF ILIAC BONE MARROW, PERC APPROACH, DIAGN (09/28/18) PHERESIS OF PLATELETS, MULTIPLE (09/28/18) TRANSFUSE NONAUT RED BLOOD CELLS IN PERIPH VEIN, PERC (09/28/18) Family History: States: Unknown Family Hx - Social History Hx Alcohol Use: No Hx Substance Use: No - Immunization History Hx Tetanus Toxoid Vaccination: No Hx Influenza Vaccination: No Hx Pneumococcal Vaccination: No Review Of Systems Constitutional: Negative for: Fever, Chills Eyes: Negative for: Vision Change, Redness Cardiovascular: Negative for: Chest Pain Respiratory: Negative for: Shortness of Breath Gastrointestinal: Negative for: Nausea, Vomiting Genitourinary: Negative for: Dysuria Musculoskeletal: Negative for: Back Pain Skin: Negative for: Rash Neurological: Positive for: Dizziness. Negative for: Weakness, Numbness, Incoordination Psych: Negative for: Anxiety Physical Exam - Physical Exam Appears: Non-toxic, No Acute Distress, Other (Cachectic appearing) Skin: Warm, Dry, Pale, Other (Poor skin turgor) Head: Normacephalic Eye(s): bilateral: Normal Inspection Oral Mucosa: Dry Teeth: Other (Poor dentition) Neck: Trachea Midline, Supple Chest: Symmetrical Cardiovascular: Rhythm Regular Respiratory: No Rales, No Rhonchi, No Wheezing Gastrointestinal/Abdominal: Soft, No Tenderness, No Distention Back: Normal Inspection Extremity: Normal ROM Extremity: Bilateral: Atraumatic, Normal Color And Temperature, Normal ROM Pulses: Left Dorsalis Pedis: Normal, Right Dorsalis Pedis: Normal Neurological/Psych: Oriented x3, Normal Speech Gait: With Assistance ED Course And Treatment - Laboratory Results Result Diagrams: 11/13/18 20:12 11/13/18 20:12 ECG: Interpreted By Me, Viewed By Me ECG Rhythm: Sinus Rhythm (86), L BBB, Nonspecific Changes (unchanged from 10/23/18) O2 Sat by Pulse Oximetry: 99 (RA) Pulse Ox Interpretation: Normal - Radiology CXR: Interpreted by Me, Viewed By Me CXR Interpretation: Yes: Other (small left effusion). No: Infiltrates, Fracture, Cardiomegaly, Pnemothorax Progress Note: Blood work and urine sent to the lab. EKG and CXR obtained. Disposition Discussed With DrJack: Andrzej Montoya Jr. Comment: accepted the pt on his service and took over the care at 8:56 PM Doctor Will See Patient In The: ED Counseled Patient/Family Regarding: Studies Performed, Diagnosis - Disposition Disposition: HOSPITALIZED Disposition Time: 19:42 Condition: FAIR Forms: [facility] (Jordanian) - POA Present On Arrival: None - Clinical Impression Clinical Impression: Dizziness, Near syncope, Pancytopenia, AML (acute myeloblastic leukemia) - Scribe Statement The provider has reviewed the documentation as recorded by the Kalee Braun Provider Attestation: All medical record entries made by the Kalee were at my direction and personally dictated by me. I have reviewed the chart and agree that the record accurately reflects my personal performance of the history, physical exam, medical decision making, and the department course for this patient. I have also personally directed, reviewed, and agree with the discharge instructions and disposition. Decision To Admit - Pt Status Changed To: Hospital Disposition Of: Inpatient - Admit Certification Admit to Inpatient:: After my assessment, the patient will require hospitalization for at least two midnights. This is because of the severity of symptoms shown, intensity of services needed, and/or the medical risk in this patient being treated as an outpatient. - InPatient: Physician Admission Certification: I certify that this patient requires 2 or more midnights of care for the following reason:: After my assessment, the patient will require hospitalization for at least two midnights. This is becaus e of the severity of symptoms shown, intensity of services needed, and/or the medical risk in this patient being treated as an outpatient. - . Bed Request Type: Telemetry Admitting Physician: Andrzej Montoya Jr. Patient Diagnosis: Dizziness, Near syncope, Pancytopenia, AML (acute myeloblastic leukemia)
[2018-11-13 20:24] LABS: LYMPH # 0.4 K/uL (1.0-4.3); LYMPH % 55.4 % (20.0-40.0); MEAN CELL VOLUME 86.5 fL (80.0-94.0); MEAN CORPUSCULAR HEMOGLOBIN 28.5 pg (27.0-31.0); MEAN PLATELET VOLUME 10.6 fL (7.2-11.7); MONO # 0.3 K/uL (0.0-0.8); MONO % 41.2 % (0.0-10.0); NEUT % 3.4 % (50.0-75.0); NRBC % 9.9 % (0.0-2.0); RBC 2.45 Mil/uL (4.40-5.90); RED CELL DISTRIBUTION WIDTH 16.1 % (11.5-14.5)
[2018-11-13 20:27] LABS: WHITE BLOOD COUNT 0.8 K/uL (4.8-10.8)
[2018-11-13 20:28] LABS: ALB/GLOB RATIO 1.2 (1.0-2.1); ALBUMIN 3.3 g/dL (3.5-5.0); ALT/SGPT 13 U/L (21-72); AST/SGOT 14 U/L (17-59); BLOOD UREA NITROGEN 22 mg/dL (9-20); CALCIUM 8.2 mg/dl (8.6-10.4); GFR NON-AFRICAN AMERICAN > 60; INR 1.2; PLATELET COUNT 11 K/uL (130-400); PROTHROMBIN TIME 12.8 SECONDS (9.7-12.2)
--- NOTE | 2018-11-13 20:41 | RAD ---
HISTORY: SOB COMPARISON: Chest x-ray performed 10/23/18 TECHNIQUE: Chest, one view. FINDINGS: LUNGS: Biapical pleural parenchymal scarring/fibrosis. Hyperinflation may be seen in setting of COPD. Increased lucencies especially within the bilateral upper lung martines compatible with underlying emphysema. PLEURA: Blunting of the left costophrenic angle consistent with small pleural effusion. No definite pneumothorax . CARDIOVASCULAR: Cardiomegaly. Atherosclerotic calcification present. OSSEOUS STRUCTURES: Osseous demineralization. Degenerative changes. VISUALIZED UPPER ABDOMEN: Unremarkable. OTHER FINDINGS: None. IMPRESSION: Biapical pleural parenchymal scarring/fibrosis. COPD/emphysema. Small left pleural effusion.
[2018-11-13 20:58] LABS: ANISOCYTOSIS MODERATE; BLASTS 1 % (0-0); LYMPHOCYTE 59 % (20-40); MICROCYTOSIS MODERATE; MONOCYTE 27 % (0-10); NEUTROPHIL 13 % (50-75); NUCLEATED RED BLOOD CELL 20 % (0-0); PLATELET ESTIMATE MARKEDLY DECREASED (NORMAL); TOTAL CELLS COUNTED 100
[2018-11-13 20:59] LABS: OVALOCYTES MODERATE; SCHISTOCYTES SLIGHT; TEARDROP CELLS SLIGHT
--- NOTE | 2018-11-13 22:38 | CP.PCM.HP ---
History of Present Illness - History of Present Illness History of Present Illness: PGY-[address] Montoya Patient is a 78 year old male with recently diagnosed AML, patient of Dr. Montoya and Dr. Bobby who presents with chief complaint of dizziness. Patient reports that he felt earlier this morning like the room was spinning. He is aware that due to his diagnosis he needs to pay careful attention to symptoms so when he felt like the room was spinning, patient notified and daughter who brought patient to the ED. Patient did not fall or lose conciousness and complained of no other symptoms. On exam in the ED, patient was already receiving fluids and one unit PRBCs and stated dizziness had resolved. He denies fever, chills, or fatigue. Denies nausea, vomiting, diarrhea, chest pain. PMHx: AML, HTN, BPH Surgeries: Denies Allergis: NKA Social: Denies tobacco, alcohol, or drug use. Lives with . Famil hx: Denies pertinent family hx incluiding any cancer or blood disorder Meds: Colace 100 mg po bid, lasiz 20 mg po daily, lisinopril 5 mg po daily, protonix 40 mg po daily, flomax 0.4 mg po bid PMD: Dr. Montoya Heme Onc: Dr. Bobby Present on Admission - Present on Admission Any Indicators Present on Admission: No Review of Systems - Constitutional Constitutional: absent: Chills, Fatigue, Fever - EENT Eyes: absent: Diplopia, Pain Nose/Mouth/Throat: absent: Nasal Congestion, Nasal Discharge - Cardiovascular Cardiovascular: Leg Edema (Leg edema which has been worse in past - unsure diagnosis. Denies CHF or CKD). absent: Chest Pain, Dyspnea, Lightheadedness, Palpitations, Rapid Heart Rate, Syncope - Respiratory Respiratory: absent: Cough, Dyspnea - Gastrointestinal Gastrointestinal: absent: Abdominal Pain, Belching, Bloating - Genitourinary Genitourinary: absent: Difficulty Urinating, Hematuria - Musculoskeletal Musculoskeletal: absent: Neck Pain, Stiffness - Neurological Neurological: Dizziness (Dizzines - "spinning" - resolved once blood products and fluids started in ED). absent: Confusion - Psychiatric Psychiatric: absent: Anxiety, Depression - Endocrine Endocrine: absent: Fatigue, Flushing - Hematologic/Lymphatic Hematologic: absent: Easy Bleeding, Easy Bruising Past Patient History - Infectious Disease Hx of Infectious Diseases: None - Past Medical History & Family History Past Medical History?: Yes - Past Social History Smoking Status: Former Smoker - CARDIAC Hx Hypertension: Yes Hx Peripheral Edema: Yes - PULMONARY Hx Respiratory Disorders: No - NEUROLOGICAL Hx Neurological Disorder: No - HEENT Hx HEENT Problems: No - ENDOCRINE/METABOLIC Hx Endocrine Disorders: No - HEMATOLOGICAL/ONCOLOGICAL Hx Blood Disorders: Yes Hx Leukemia: Yes (Recieves Chemo last chemo tx was Thursday) - INTEGUMENTARY Hx Dermatological Problems: No - MUSCULOSKELETAL/RHEUMATOLOGICAL Hx Musculoskeletal Disorders: No Hx Falls: No - GASTROINTESTINAL Hx Gastrointestinal Disorders: Yes - GENITOURINARY/GYNECOLOGICAL Hx Genitourinary Disorders: No - PSYCHIATRIC Hx Substance Use: No - SURGICAL HISTORY Hx Surgeries: No - ANESTHESIA Hx Anesthesia: No Meds Allergies/Adverse Reactions: Allergies Allergy/AdvReac Type Severity Reaction Status Date / Time No Known Allergies Allergy Verified 11/13/18 18:58 Physical Exam - Head Exam Head Exam: ATRAUMATIC, NORMOCEPHALIC - Eye Exam Eye Exam: EOMI, Normal appearance - ENT Exam ENT Exam: Mucous Membranes Moist - Respiratory Exam Respiratory Exam: Clear to Auscultation Bilateral, NORMAL BREATHING PATTERN. absent: Rales, Rhonchi, Wheezes - Cardiovascular Exam Cardiovascular Exam: REGULAR RHYTHM, +S1, +S2 - GI/Abdominal Exam GI & Abdominal Exam: Normal Bowel Sounds, Soft. absent: Tenderness - Extremities Exam Extremities exam: Positive for: pedal edema (1+ pitting edema b/l), pedal pulses present. Negative for: joint swelling, tenderness - Neurological Exam Neurological exam: Alert, CN II-XII Intact, Oriented x3 - Psychiatric Exam Psychiatric exam: Normal Affect, Normal Mood - Skin Skin Exam: Dry, Intact, Normal Color, Warm Results - Vital Signs Recent Vital Signs: Last Vital Signs Temp 98.1 F 11/13/18 22:05 Pulse 85 11/13/18 22:05 Resp 16 11/13/18 22:05 BP 116/49 L 11/13/18 22:05 Pulse Ox 99 11/13/18 22:05 - Labs Result Diagrams: 11/13/18 20:12 11/13/18 20:12 Labs: Laboratory Results - last 24 hr 11/13/18 11/13/18 11/13/18 19:22 20:12 20:12 WBC 0.8 L* RBC 2.45 L Hgb 7.0 L Hct 21.2 L MCV 86.5 MCH 28.5 MCHC 33.0 RDW 16.1 H Plt Count 11 L* D MPV 10.6 Neut % (Auto) 3.4 L Lymph % (Auto) 55.4 H Price % (Auto) 41.2 H Eos % (Auto) 0.0 Baso % (Auto) 0.0 Neut # (Auto) 0.0 L Lymph # (Auto) 0.4 L Price # (Auto) 0.3 Eos # (Auto) 0.0 Baso # (Auto) 0.0 Neutrophils % (Manual) 13 L Lymphocytes % (Manual) 59 H Monocytes % (Manual) 27 H Blast Cells % 1 H Nucleated RBC % 20 H Platelet Estimate Markedly decreased L Anisocytosis (manual) Moderate Microcytosis (manual) Moderate Tear Drop Cells Slight Ovalocytes Moderate Schistocytes Slight PT 12.8 H INR 1.2 APTT 32 Sodium Potassium Chloride Carbon Dioxide Anion Gap BUN Creatinine Est GFR ( Amer) Est GFR (Non-Af Amer) POC Glucose (mg/dL) 111 H Random Glucose Calcium Total Bilirubin AST ALT Alkaline Phosphatase Total Protein Albumin Globulin Albumin/Globulin Ratio Blood Type Antibody Screen 11/13/18 11/13/18 20:12 20:12 WBC RBC Hgb Hct MCV MCH MCHC RDW Plt Count MPV Neut % (Auto) Lymph % (Auto) Price % (Auto) Eos % (Auto) Baso % (Auto) Neut # (Auto) Lymph # (Auto) Price # (Auto) Eos # (Auto) Baso # (Auto) Neutrophils % (Manual) Lymphocytes % (Manual) Monocytes % (Manual) Blast Cells % Nucleated RBC % Platelet Estimate Anisocytosis (manual) Microcytosis (manual) Tear Drop Cells Ovalocytes Schistocytes PT INR APTT Sodium 138 Potassium 3.9 Chloride 104 Carbon Dioxide 27 Anion Gap 10 BUN 22 H Creatinine 0.9 Est GFR ( Amer) > 60 Est GFR (Non-Af Amer) > 60 POC Glucose (mg/dL) Random Glucose 100 Calcium 8.2 L Total Bilirubin 0.8 AST 14 L D ALT 13 L D Alkaline Phosphatase 60 Total Protein 6.2 L Albumin 3.3 L Globulin 2.8 Albumin/Globulin Ratio 1.2 Blood Type B POSITIVE Antibody Screen Negative Assessment & Plan - Assessment and Plan (Free Text) Assessment: Symptomatic Anemia with Leukopenia and Thrombocytopenia 2/2 AML - Patient d/w Dr. Montoya and Dr. Bobby - Receiving one unit PRBCs and fluid bolus in ED - reports asymptomatic following fluids and blood products - Heme onc consult, Dr. Bobby - f/u additional recs - --1 additonal unit PRBCs + 1 Unit platelets - --F/u CBC am - --Goal Hgb 9.0 - Per nurse casework manager - neutropenic precautions no longer exists as an order. Pt placed on special contact precautions overnight. Day team please evaluate isolation precautions. HTN - Home meds restarted --Lisinopril 5 mg PO daily BPH - Home meds restarted --Flomax 0.4 mg po BID PPx - VTE ppx contraindicated 2/2 thrombocytopenia d/w Dr. Lindsay Beck, PGY-1
[2018-11-13 23:10] LABS: URINE BILIRUBIN NEGATIVE (NEGATIVE); URINE BLOOD 1+ (NEGATIVE); URINE CLARITY Clear (Clear); URINE COLOR Straw (YELLOW); URINE GLUCOSE (UA) NORMAL (Normal); URINE LEUKOCYTE ESTERASE NEG Leu/uL (Negative); URINE PROTEIN NEGATIVE (NEGATIVE); URINE UROBILINOGEN NORMAL mg/dL (0.2-1.0)
--- NOTE | 2018-11-14 08:29 | CP.PCM.PN ---
Subjective - Date & Time of Evaluation Date of Evaluation: 11/14/18 Time of Evaluation: 04:00 - Subjective Subjective: Patient seen and exmanied at bedside. Denies any fever, chills, Chest pain, palpitations, SOB, headache, abdominal pain, changes in bowel habits or urinary symptoms. He does complain of mild dizziness but still improved from yesterday. Objective - Vital Signs/Intake and Output Vital Signs (last 24 hours): Temp Pulse Resp BP Pulse Ox 97.5 F L 80 18 122/62 97 11/14/18 08:12 11/14/18 08:12 11/14/18 08:12 11/14/18 08:12 11/14/18 08:12 Intake and Output: 11/14/18 11/14/18 06:59 18:59 Intake Total 561 Output Total 0 Balance 561 - Labs Labs: 11/13/18 20:12 11/13/18 20:12 PT 12.8 SECONDS (9.7-12.2) H 11/13/18 20:12 INR 1.2 11/13/18 20:12 APTT 32 SECONDS (21-34) 11/13/18 20:12 - Constitutional Appears: Non-toxic, No Acute Distress, Cachectic, Chronically Ill - Head Exam Head Exam: ATRAUMATIC, NORMAL INSPECTION, NORMOCEPHALIC - Eye Exam Eye Exam: EOMI, Normal appearance - ENT Exam ENT Exam: Mucous Membranes Moist - Neck Exam Neck Exam: Normal Inspection - Respiratory Exam Respiratory Exam: Clear to Ausculation Bilateral, NORMAL BREATHING PATTERN. absent: Rhonchi, Wheezes - Cardiovascular Exam Cardiovascular Exam: RRR, +S1, +S2 - GI/Abdominal Exam GI & Abdominal Exam: Soft. absent: Tenderness - Extremities Exam Extremities Exam: Normal Capillary Refill - Neurological Exam Neurological Exam: Alert, Awake, Oriented x3 - Psychiatric Exam Psychiatric exam: Normal Affect, Normal Mood - Skin Additional comments: Numerous areas of petechia and echhymosis. Assessment and Plan - Assessment and Plan (Free Text) Assessment: 78 year old male with PMHx of recently diagnosed AML presented with dizziness and admitted for evaluation and treatment of pancytopenia. Plan: Pancytopenia 2/2 AML - Patient d/w Dr. Montoya and Dr. Bobby - Receiving one unit PRBCs and fluid bolus in ED - reports asymptomatic following fluids and blood products - Heme onc consult, Dr. Bobby - f/u additional recs - --1 additonal unit PRBCs + 1 Unit platelets - --F/u CBC am - --Goal Hgb 9.0 - Per nurse manager internal - neutropenic precautions no longer exists as an order. Pt placed on special contact precautions overnight. Day team please evaluate isolation precautions. HTN - Home meds restarted --Lisinopril 5 mg PO daily BPH - Home meds restarted --Flomax 0.4 mg po BID PPx - VTE ppx contraindicated 2/2 thrombocytopenia Patient seen and discussed with Attending (Dr. Montoya) Deniz Greenberg, PGY-2
[2018-11-14 10:04] LABS: MEAN CORPUSCULAR HEMOGLOBIN 30.2 pg (27.0-31.0); MEAN CORPUSCULAR HGB CONC 33.7 g/dL (33.0-37.0); MEAN PLATELET VOLUME 7.7 fL (7.2-11.7); RBC 3.31 Mil/uL (4.40-5.90); RED CELL DISTRIBUTION WIDTH 15.7 % (11.5-14.5)
[2018-11-14 10:15] LABS: MEAN CELL VOLUME 89.7 fL (80.0-94.0); PLATELET COUNT 32 K/uL (130-400); WHITE BLOOD COUNT 1.1 K/uL (4.8-10.8)
[2018-11-14 10:39] LABS: ALB/GLOB RATIO 1.1 (1.0-2.1); ALBUMIN 3.2 g/dL (3.5-5.0); ALT/SGPT 13 U/L (21-72); AST/SGOT 17 U/L (17-59); BLOOD UREA NITROGEN 21 mg/dL (9-20); CALCIUM 8.5 mg/dl (8.6-10.4); GFR NON-AFRICAN AMERICAN > 60
[2018-11-14 11:19] LABS: LYMPH # 0.5 K/uL (1.0-4.3); MONO # 0.2 K/uL (0.0-0.8); NEUT # 0.4 K/uL (1.8-7.0)
[2018-11-14 11:21] LABS: ANISOCYTOSIS SLIGHT; BANDS 3 % (0-2); LYMPHOCYTE 48 % (20-40); MONOCYTE 22 % (0-10); NEUTROPHIL 27 % (50-75); NUCLEATED RED BLOOD CELL 8 % (0-0); PLATELET ESTIMATE MARKEDLY DECREASED (NORMAL); POLYCHROMIC SLIGHT; TOTAL CELLS COUNTED 100
[2018-11-14 11:22] LABS: BURR CELLS SLIGHT; POIKILOCYTOSIS SLIGHT; SCHISTOCYTES SLIGHT
[2018-11-14 11:23] LABS: HYPOCHROMIC SLIGHT
[2018-11-14 11:24] LABS: OVALOCYTES SLIGHT; TEARDROP CELLS SLIGHT
--- NOTE | 2018-11-15 01:49 | CP.PCM.CON ---
History of Present Illness - History of Present Illness History of Present Illness: 78 year old male with a history of AML diagnosed 09/2018 on decitabine (given 10/07/18), lung mass, pneumothorax, admitted with vertigo and pancytopenia. The patient notes to feeling dizzy today and was brought to the hospital by his family. He was found to be pancytopenic and is currently s/p 2U PRBC and 1 bag platelets. He notes to feeling better but still has some dizziness. He was scheduled to receive chemotherapy this upcoming week. He denies fevers and chills. Past medical history: COPD, AML, lung mass, pneumothorax Past surgical history: Denies Family history: Denies hematologic and oncologic problems Social history: Former tobacco abuse Allergies: NKA Review of systems: All remaining review of systems including HEENT, cardiovascular, respiratory, gastrointestinal, genitourinary, musculoskeletal, dermatologic, neurologic, and psychiatric are negative unless mentioned in the HPI. Past Patient History - Infectious Disease Hx of Infectious Diseases: None - Past Medical History & Family History Past Medical History?: Yes - Past Social History Smoking Status: Former Smoker - CARDIAC Hx Hypertension: Yes Hx Peripheral Edema: Yes - PULMONARY Hx Respiratory Disorders: No Hx Chronic Obstructive Pulmonary Disease (COPD): Yes - NEUROLOGICAL Hx Neurological Disorder: No - HEENT Hx HEENT Problems: No - RENAL Hx Chronic Kidney Disease: No - ENDOCRINE/METABOLIC Hx Endocrine Disorders: No - HEMATOLOGICAL/ONCOLOGICAL Hx Blood Disorders: Yes Hx Leukemia: Yes (Recieves Chemo last chemo tx was Thursday) - INTEGUMENTARY Hx Dermatological Problems: No - MUSCULOSKELETAL/RHEUMATOLOGICAL Hx Falls: No - GASTROINTESTINAL Hx Gastrointestinal Disorders: Yes Hx Constipation: Yes - GENITOURINARY/GYNECOLOGICAL Hx Genitourinary Disorders: No - PSYCHIATRIC Hx Substance Use: Yes - SURGICAL HISTORY Hx Surgeries: No - ANESTHESIA Hx Anesthesia: No Has any member of the family had a problem w/ anesthesia?: No Meds Allergies/Adverse Reactions: Allergies Allergy/AdvReac Type Severity Reaction Status Date / Time No Known Allergies Allergy Verified 11/13/18 18:58 Physical Exam - Head Exam Head Exam: ATRAUMATIC - Eye Exam Eye Exam: Normal appearance - ENT Exam ENT Exam: Mucous Membranes Dry - Respiratory Exam Respiratory Exam: NORMAL BREATHING PATTERN - Cardiovascular Exam Cardiovascular Exam: +S1, +S2 - GI/Abdominal Exam GI & Abdominal Exam: Normal Bowel Sounds - Extremities Exam Extremities exam: Positive for: pedal edema - Neurological Exam Neurological exam: Oriented x3 - Psychiatric Exam Psychiatric exam: Normal Affect, Normal Mood - Skin Skin Exam: Warm Results - Vital Signs Recent Vital Signs: Last Vital Signs Temp 98.3 F 11/15/18 00:00 Pulse 71 11/15/18 00:00 Resp 19 11/15/18 00:00 BP 112/42 L 11/15/18 00:00 Pulse Ox 96 11/15/18 00:00 - Labs Result Diagrams: 11/14/18 10:00 11/14/18 10:00 Labs: Laboratory Results - last 24 hr 11/13/18 11/14/18 11/14/18 20:12 10:00 10:00 WBC 1.1 L* RBC 3.31 L Hgb 10.0 L D Hct 29.7 L MCV 89.7 D MCH 30.2 MCHC 33.7 RDW 15.7 H Plt Count 32 L D MPV 7.7 Neut % (Auto) 30.0 L Lymph % (Auto) 48.0 H [place] % (Auto) 22.0 H Eos % (Auto) 0.0 Baso % (Auto) 0.0 Neut # (Auto) 0.4 L Lymph # (Auto) 0.5 L [place] # (Auto) 0.2 Eos # (Auto) 0.0 Baso # (Auto) 0.0 Neutrophils % (Manual) 27 L Band Neutrophils % 3 H Lymphocytes % (Manual) 48 H Monocytes % (Manual) 22 H Nucleated RBC % 8 H Platelet Estimate Markedly decreased L Polychromasia Slight Hypochromasia (manual) Slight Poikilocytosis (manual Slight Anisocytosis (manual) Slight Tear Drop Cells Slight Ovalocytes Slight [place] Cells Slight Schistocytes Slight Sodium 139 Potassium 4.1 Chloride 106 Carbon Dioxide 27 Anion Gap 9 L BUN 21 H Creatinine 0.9 Est GFR ( Amer) > 60 Est GFR (Non-Af Amer) > 60 Random Glucose 138 H D Calcium 8.5 L Phosphorus 3.3 Magnesium 1.9 Total Bilirubin 1.6 H AST 17 D ALT 13 L Alkaline Phosphatase 60 Total Protein 6.1 L Albumin 3.2 L Globulin 2.8 Albumin/Globulin Ratio 1.1 Blood Type B POSITIVE Antibody Screen Negative Assessment & Plan (1) Pancytopenia Assessment and Plan: secondary to AML s/p 2U PRBC and 1 bag platelets neutropenic precautions Status: Acute (2) AML (acute myeloblastic leukemia) Assessment and Plan: on hypomethylating agent therapy was due this upcoming week for treatment outpatient treatment Thank you for this interesting consult. Status: Acute
[2018-11-15 04:21] VITALS: BP 105/56; RESP 18; TEMP 97.8; O2SAT 97
[2018-11-15 05:59] LABS: HEMOGLOBIN 9.2 g/dL (12.0-18.0); MEAN CELL VOLUME 89.1 fL (80.0-94.0); MEAN CORPUSCULAR HGB CONC 33.6 g/dL (33.0-37.0); MEAN PLATELET VOLUME 10.1 fL (7.2-11.7); RBC 3.07 Mil/uL (4.40-5.90); RED CELL DISTRIBUTION WIDTH 15.9 % (11.5-14.5)
[2018-11-15 06:19] LABS: PLATELET COUNT 28 K/uL (130-400)
[2018-11-15 08:33] VITALS: PULSE 72
[2018-11-15 09:33] LABS: LYMPH # 0.7 K/uL (1.0-4.3); MONO # 0.2 K/uL (0.0-0.8); NEUT # 0.1 K/uL (1.8-7.0)
[2018-11-15 09:35] LABS: LYMPHOCYTE 72 % (20-40); MONOCYTE 20 % (0-10); NEUTROPHIL 8 % (50-75); NUCLEATED RED BLOOD CELL 4 % (0-0); PLATELET ESTIMATE MARKEDLY DECREASED (NORMAL); TOTAL CELLS COUNTED 100
[2018-11-15 09:36] LABS: ANISOCYTOSIS SLIGHT; HYPOCHROMIC SLIGHT; POIKILOCYTOSIS SLIGHT
[2018-11-15 09:37] LABS: ACANTHOCYTES SLIGHT; BURR CELLS SLIGHT; MICROCYTOSIS SLIGHT; OVALOCYTES SLIGHT
[2018-11-15 09:41] LABS: TEARDROP CELLS SLIGHT
[2018-11-15 09:42] LABS: GIANT PLATELETS PRESENT
[2018-11-15] MEDS ORDERED: Pantoprazole 40 mg EC Tab PO SCH (11:15)
--- NOTE | 2018-11-15 12:43 | CP.PCM.DIS ---
Provider - Provider Date of Admission: 11/13/18 20:55 Attending physician: Andrzej Montoya Jr, MD Consults: 11/13/18 22:59 Hematology Oncology Consult Routine Comment: Consulting Provider: Kartik Bobby Consulting Physician: Kartik Bobby Reason for Consult: AML Time Spent in preparation of Discharge (in minutes): 70 Hospital Course - Lab Results Lab Results: Micro Results 11/13/18 20:10 Blood Blood Culture - Preliminary NO GROWTH AFTER 24 HOURS 11/13/18 19:50 Blood Blood Culture - Preliminary NO GROWTH AFTER 24 HOURS Most Recent Lab Values WBC 1.0 K/uL (4.8-10.8) L* 11/15/18 05:52 RBC 3.07 Mil/uL (4.40-5.90) L 11/15/18 05:52 Hgb 9.2 g/dL (12.0-18.0) L 11/15/18 05:52 Hct 27.3 % (35.0-51.0) L 11/15/18 05:52 MCV 89.1 fL (80.0-94.0) 11/15/18 05:52 MCH 30.0 pg (27.0-31.0) 11/15/18 05:52 MCHC 33.6 g/dL (33.0-37.0) 11/15/18 05:52 RDW 15.9 % (11.5-14.5) H 11/15/18 05:52 Plt Count 28 K/uL (130-400) L* 11/15/18 05:52 MPV 10.1 fL (7.2-11.7) 11/15/18 05:52 Neut % (Auto) 8.0 % (50.0-75.0) L 11/15/18 05:52 Lymph % (Auto) 72.0 % (20.0-40.0) H 11/15/18 05:52 [place] % (Auto) 20.0 % (0.0-10.0) H 11/15/18 05:52 Eos % (Auto) 0.0 % (0.0-4.0) 11/15/18 05:52 Baso % (Auto) 0.0 % (0.0-2.0) 11/15/18 05:52 Neut # (Auto) 0.1 K/uL (1.8-7.0) L 11/15/18 05:52 Lymph # (Auto) 0.7 K/uL (1.0-4.3) L 11/15/18 05:52 [place] # (Auto) 0.2 K/uL (0.0-0.8) 11/15/18 05:52 Eos # (Auto) 0.0 K/uL (0.0-0.7) 11/15/18 05:52 Baso # (Auto) 0.0 K/uL (0.0-0.2) 11/15/18 05:52 Neutrophils % (Manual) 8 % (50-75) L 11/15/18 05:52 Band Neutrophils % 3 % (0-2) H 11/14/18 10:00 Lymphocytes % (Manual) 72 % (20-40) H 11/15/18 05:52 Monocytes % (Manual) 20 % (0-10) H 11/15/18 05:52 Blast Cells % 1 % (0-0) H 11/13/18 20:12 Nucleated RBC % 4 % (0-0) H 11/15/18 05:52 Platelet Estimate Markedly decreased (NORMAL) L 11/15/18 05:52 Giant Platelets Present 11/15/18 05:52 Polychromasia Slight 11/14/18 10:00 Hypochromasia (manual) Slight 11/15/18 05:52 Poikilocytosis (manual Slight 11/15/18 05:52 Anisocytosis (manual) Slight 11/15/18 05:52 Microcytosis (manual) Slight 11/15/18 05:52 Macrocytosis (manual) Slight 11/15/18 05:52 Tear Drop Cells Slight 11/15/18 05:52 Ovalocytes Slight 11/15/18 05:52 [place] Cells Slight 11/15/18 05:52 Acanthocytes (Spur) Slight 11/15/18 05:52 Schistocytes Slight 11/14/18 10:00 PT 12.8 SECONDS (9.7-12.2) H 11/13/18 20:12 INR 1.2 11/13/18 20:12 APTT 32 SECONDS (21-34) 11/13/18 20:12 Sodium 139 mmol/L (132-148) 11/14/18 10:00 Potassium 4.1 mmol/L (3.6-5.2) 11/14/18 10:00 Chloride 106 mmol/L (98-107) 11/14/18 10:00 Carbon Dioxide 27 mmol/L (22-30) 11/14/18 10:00 Anion Gap 9 (10-20) L 11/14/18 10:00 BUN 21 mg/dL (9-20) H 11/14/18 10:00 Creatinine 0.9 mg/dL (0.8-1.5) 11/14/18 10:00 Est GFR ( Amer) > 60 11/14/18 10:00 Est GFR (Non-Af Amer) > 60 11/14/18 10:00 POC Glucose (mg/dL) 111 mg/dL (65-110) H 11/13/18 19:22 Random Glucose 138 mg/dL (75-110) H D 11/14/18 10:00 Calcium 8.5 mg/dl (8.6-10.4) L 11/14/18 10:00 Phosphorus 3.3 mg/dL (2.5-4.5) 11/14/18 10:00 Magnesium 1.9 mg/dL (1.6-2.3) 11/14/18 10:00 Total Bilirubin 1.6 mg/dL (0.2-1.3) H 11/14/18 10:00 AST 17 U/L (17-59) D 11/14/18 10:00 ALT 13 U/L (21-72) L 11/14/18 10:00 Alkaline Phosphatase 60 U/L (38-126) 11/14/18 10:00 Total Protein 6.1 g/dL (6.3-8.3) L 11/14/18 10:00 Albumin 3.2 g/dL (3.5-5.0) L 11/14/18 10:00 Globulin 2.8 gm/dL (2.2-3.9) 11/14/18 10:00 Albumin/Globulin Ratio 1.1 (1.0-2.1) 11/14/18 10:00 Urine Color Straw (YELLOW) 11/13/18 22:50 Urine Clarity Clear (Clear) 11/13/18 22:50 Urine pH 5.0 (5.0-8.0) 11/13/18 22:50 Ur Specific [place] 1.005 (1.003-1.030) 11/13/18 22:50 Urine Protein Negative mg/dL (NEGATIVE) 11/13/18 22:50 Urine Glucose (UA) Normal mg/dL (Normal) 11/13/18 22:50 Urine Ketones Negative mg/dL (NEGATIVE) 11/13/18 22:50 Urine Blood 1+ (NEGATIVE) H 11/13/18 22:50 Urine Nitrate Negative (NEGATIVE) 11/13/18 22:50 Urine Bilirubin Negative (NEGATIVE) 11/13/18 22:50 Urine Urobilinogen Normal mg/dL (0.2-1.0) 11/13/18 22:50 Ur Leukocyte Esterase Neg Michael/uL (Negative) 11/13/18 22:50 Blood Type B POSITIVE 11/13/18 20:12 Antibody Screen Negative 11/13/18 20:12 - Hospital Course Hospital Course: Upon Admission: Patient is a 78 year old male with recently diagnosed AML, patient of Dr. Montoya and Dr. Bobby who presents with chief complaint of dizziness. Patient reports that he felt earlier this morning like the room was spinning. He is aware that due to his diagnosis he needs to pay careful attention to symptoms so when he felt like the room was spinning, patient notified and daughter who brought patient to the ED. Patient did not fall or lose conciousness and complained of no other symptoms. On exam in the ED, patient was already receiving fluids and one unit PRBCs and stated dizziness had resolved. He denies fever, chills, or fatigue. Denies nausea, vomiting, diarrhea, chest pain. CBC showed anemia and thrombocytopenia. CXR showed biapical pleural parenchymal fibrosis and a small L pleural effusion. Pt was admitted for pancytopenia secondary to AML. Hospital Course: Pt received 2u PRBC and 1 bag platelets. Heme Onc was consulted and recommended monitoring of CBC, with a goal Hb of 9 The following day, Pt Hb increased to 9.2 Pt was deemed stable for discharge. Upon Discharge: Pt was deemed stable for discharge to home. He was instructed to follow up with Dr. Bobby that day and to take medications as prescribed. Pt understood instructions and agreed. Discharge Exam - Head Exam Head Exam: ATRAUMATIC, NORMOCEPHALIC - Eye Exam Eye Exam: EOMI, PERRL Pupil Exam: NORMAL ACCOMODATION - Respiratory Exam Respiratory Exam: Clear to PA & Lateral, NORMAL BREATHING PATTERN. absent: Rhonchi, Wheezes, Respiratory Distress - Cardiovascular Exam Cardiovascular Exam: REGULAR RHYTHM, +S1, +S2. absent: Gallop, Rubs - GI/Abdominal Exam GI & Abdominal Exam: Normal Bowel Sounds, Soft. absent: Distended, Tenderness - Extremities Exam Extremities exam: normal inspection - Neurological Exam Neurological exam: Alert, Oriented x3 - Psychiatric Exam Psychiatric exam: Normal Affect, Normal Mood - Skin Skin Exam: Normal Color Discharge Plan - Discharge Medications Prescriptions: Docusate [Colace] 100 mg PO BID #60 cap Furosemide [Lasix] 20 mg PO DAILY #30 tab Lisinopril [Zestril] 5 mg PO DAILY #30 tab Pantoprazole [Protonix EC Tab] 40 mg PO DAILY #30 ect Tamsulosin [Flomax] 0.4 mg PO BID #60 cap - Follow Up Plan Condition: FAIR Disposition: HOME/ ROUTINE Instructions: Leukemia, Adult (DC), Aplastic Anemia (DC) Additional Instructions: Please follow up with Dr. Bobby in the office TODAY. Please take your medications as prescribed. Please return to the ED if symptoms return. Take care and be well.
--- NOTE | 2018-11-15 21:35 | CARD ---
APPROVED REPORT Date of service: 11/13/2018 EKG Measurement Heart [id number] <Conclusion> Normal sinus rhythm Possible Left atrial enlargement Left axis deviation Left bundle branch block Abnormal ECG
== END 2018-11-15 12:45 | disposition home or self-care (01) | DRG 835 ==
LOC: C.ER 18:17 → C.9E 20:55 → C.9I 11-14 03:28
PROVIDERS: ADMIT Internal Medicine; ATTEND Internal Medicine
DX: C92.00 Acute myeloblastic leukemia, not having achieved remission (principal); D61.818 Other pancytopenia; J90 Pleural effusion, not elsewhere classified; Z68.1 Body mass index [BMI] 19.9 or less, adult; I10 Essential (primary) hypertension; J44.9 Chronic obstructive pulmonary disease, unspecified; N40.0 Benign prostatic hyperplasia without lower urinary tract symptoms; Z87.891 Personal history of nicotine dependence; D69.59 Other secondary thrombocytopenia

== ENCOUNTER 2018-11-29 16:59 | Inpatient (IN) | payer MEDICARE ==
[2018-11-29 16:59] VITALS: BMI 15.3
[2018-11-29] MEDS ORDERED: Piperacillin/Tazobact 3.375 gm 100 ML IVPB STA (17:25)
[2018-11-29] MEDS ORDERED: Sodium Chloride 0.9% 1,000 ML IV ONE ×2 (17:28→19:00)
--- NOTE | 2018-11-29 17:40 | RAD ---
Date of service: 11/29/2018 PROCEDURE: CHEST RADIOGRAPH, 1 VIEW HISTORY: chest pain COMPARISON: Chest radiograph dated 11/13/2018. FINDINGS: LUNGS: Hyperinflated lungs. Left midlung infiltrate. Patchy left lower lung infiltrate. PLEURA: Diaphragms. Biapical bullous change with pleural-parenchymal scarring. No pneumothorax or pleural fluid seen. CARDIOVASCULAR: Aortic atherosclerotic calcifications. Cardiomediastinal silhouette stably enlarged. OSSEOUS STRUCTURES: Unchanged. VISUALIZED UPPER ABDOMEN: Normal. OTHER FINDINGS: None. IMPRESSION: Left mid and lower lung infiltrates.
--- NOTE | 2018-11-29 17:52 | C.PDOC ---
History Of Present Illness Patient is a 78 year old male, with a PMHx of leukemia, who presents to the ED for evaluation of fever and generalized weakness. Patient was febrile upon arrival in ED. Patient states that he is on an immunotherapy regimen and came in last week for this. He also notes left sided rib pain. Patient denies any trauma, sore throat, abdominal pain, SOB, CP, or other medical complaints at the moment. Time Seen by Provider: 11/29/18 17:08 Chief Complaint (Nursing): Weakness/Neurological Deficit History Per: Patient History/Exam Limitations: no limitations Onset/Duration Of Symptoms: Days Current Symptoms Are (Timing): Still Present Fall Associated With With Symptoms: No Recent travel outside of the [place]: No Additional History Per: Patient Past Medical History Reviewed: Historical Data, Nursing Documentation, Vital Signs Vital Signs: Last Vital Signs Temp 103.5 F H 11/29/18 17:26 Pulse 125 H 11/29/18 17:15 Resp 24 11/29/18 17:15 BP 124/39 L 11/29/18 17:15 Pulse Ox 99 11/29/18 17:15 - Medical History PMH: COPD, HTN, Peripheral Edema Denies: Chronic Kidney Disease Surgical History: No Surg Hx - [facility] Procedures EXTRACTION OF ILIAC BONE MARROW, PERC APPROACH, DIAGN (09/28/18) PHERESIS OF PLATELETS, MULTIPLE (09/28/18) TRANSFUSE NONAUT RED BLOOD CELLS IN PERIPH VEIN, PERC (09/28/18) Family History: States: Unknown Family Hx - Social History Hx Alcohol Use: No Hx Substance Use: No (pt denies) - Immunization History Hx Tetanus Toxoid Vaccination: No Hx Influenza Vaccination: No Hx Pneumococcal Vaccination: No Review Of Systems Constitutional: Positive for: Fever, Weakness ENT: Negative for: Throat Pain Cardiovascular: Negative for: Chest Pain Respiratory: Negative for: Shortness of Breath Gastrointestinal: Negative for: Abdominal Pain Physical Exam - Physical Exam Appears: Chronically Ill Skin: Warm, Dry Head: Atraumatic, Normacephalic Oral Mucosa: Moist Neck: Normal ROM, Supple Chest: Symmetrical, No Deformity Cardiovascular: No Murmur Respiratory: Normal Breath Sounds, No Rales, No Rhonchi, No Wheezing Gastrointestinal/Abdominal: Soft, No Tenderness, No Guarding, No Rebound Extremity: Normal ROM Neurological/Psych: Oriented x3 ED Course And Treatment - Laboratory Results Result Diagrams: 11/30/18 03:50 11/29/18 18:00 ECG Rhythm: Sinus Tachycardia, L BBB (old ) Rate From EC O2 Sat by Pulse Oximetry: 99 (on RA) Pulse Ox Interpretation: Normal - Other Rad CXR X-Ray: Viewed By Me, Read By Radiologist Interpretation: IMPRESSION: Left mid and lower lung infiltrates. Medical Decision Making Medical Decision Making: Plan: Bloodwork, VBG, CXR, EKG, Blood culture, Urine Culture, Serology, Urinalysis ordered. Tylenol 975 mg PO, Piperacillin IVPB, IV Fluids, Vancocin IVPB administered. Code sepsis Does not require 30ml per kilo fluid bolus as patient is hemodynamically stable. b/p 120 systolci, hr <100. noted h/h and plts, and leukopenia. blood and plts given. accepted by dr saleh. Disposition - Disposition Disposition: HOSPITALIZED Disposition Time: 07:00 Condition: FAIR - Clinical Impression Clinical Impression: Pneumonia, Pancytopenia - Scribe Statement The provider has reviewed the documentation as recorded by the Kalee Doe All medical record entries made by the Sanjayibmerrill were at my direction and personally dictated by me. I have reviewed the chart and agree that the record accurately reflects my personal performance of the history, physical exam, medical decision making, and the department course for this patient. I have also personally directed, reviewed, and agree with the discharge instructions and disposition. Decision To Admit - Pt Status Changed To: Hospital Disposition Of: Inpatient - Admit Certification Admit to Inpatient:: After my assessment, the patient will require hospitalization for at least two midnights. This is because of the severity of symptoms shown, intensity of services needed, and/or the medical risk in this patient being treated as an outpatient. - InPatient: Physician Admission Certification: I certify that this patient requires 2 or more midnights of care for the following reason:: sesis - . Bed Request Type: Telemetry Admitting Physician: Andrzej Saleh Jr. Patient Diagnosis: Pneumonia, Pancytopenia
[2018-11-29 18:11] LABS: INR 1.3; PROTHROMBIN TIME 14.3 SECONDS (9.7-12.2)
[2018-11-29 18:12] LABS: VENOUS BLOOD GAS BASE EXCESS 0.6 mmol/L (0.0-2.0); VENOUS BLOOD GAS PCO2 36 mmHg (40-60); VENOUS BLOOD GAS PO2 39 mm/Hg (30-55); VENOUS BLOOD PH 7.44 (7.32-7.43)
[2018-11-29] MEDS ORDERED: Piperacillin/Tazobact 3.375 gm 100 ML IVPB ONE (18:12)
[2018-11-29 18:29] LABS: URINE BILIRUBIN NEGATIVE (NEGATIVE); URINE BLOOD 2+ (NEGATIVE); URINE CLARITY Clear (Clear); URINE COLOR Yellow (YELLOW); URINE GLUCOSE (UA) NORMAL (Normal); URINE LEUKOCYTE ESTERASE NEG Leu/uL (Negative); URINE PROTEIN NEGATIVE (NEGATIVE); URINE UROBILINOGEN NORMAL mg/dL (0.2-1.0)
[2018-11-29] MEDS ORDERED: Vancomycin 1 GM 1 GM/250 ML BAG IVPB ONE (18:33)
[2018-11-29 18:35] LABS: ALB/GLOB RATIO 1.4 (1.0-2.1); ALBUMIN 3.6 g/dL (3.5-5.0); ALT/SGPT 12 U/L (21-72); AST/SGOT 16 U/L (17-59); BLOOD UREA NITROGEN 33 mg/dL (9-20); CALCIUM 8.4 mg/dl (8.6-10.4); GFR NON-AFRICAN AMERICAN > 60
[2018-11-29 18:52] LABS: LYMPH # 0.2 K/uL (1.0-4.3); LYMPH % 40.4 % (20.0-40.0); MEAN CELL VOLUME 88.8 fL (80.0-94.0); MEAN CORPUSCULAR HEMOGLOBIN 29.5 pg (27.0-31.0); MEAN CORPUSCULAR HGB CONC 33.3 g/dL (33.0-37.0); MEAN PLATELET VOLUME 9.6 fL (7.2-11.7); MONO # 0.2 K/uL (0.0-0.8); MONO % 57.4 % (0.0-10.0); NEUT % 2.2 % (50.0-75.0); NRBC % 1.6 % (0.0-2.0); RBC 1.76 Mil/uL (4.40-5.90); RED CELL DISTRIBUTION WIDTH 15.4 % (11.5-14.5)
[2018-11-29 18:59] LABS: HEMOGLOBIN 5.2 g/dL (12.0-18.0); WHITE BLOOD COUNT 0.4 K/uL (4.8-10.8)
--- NOTE | 2018-11-29 19:14 | CP.PCM.HP ---
History of Present Illness - History of Present Illness History of Present Illness: PGY-1 History and Physical [address] Dr. Montoya Patient is a 78 year old male with past medical history of recently diagnosed AML, HTN, BPH presenting to ED for subjective fever and generalized weakness since yesterday. Per family, patient had decreased appetite, generally did not feel. He also complains of associated L sided rib pain that began this morning, tried putting an ice pack over area. Patient was noted to be febrile upon arriva l in ED, T max 103.5. Of note, patient states he began immunotherapy last week. His last chemo session was Thursday and he was seen in the hospital for this. No chills, headaches, dizziness, chest pain palpitations, sob, cough, abdominal pain, n/v/d/c, dysuria, or changes in stool. PMHx: AML, HTN, BPH PSHx: denies Allergies: NKDA Home Medications: Colace 100 mg po bid, lasiz 20 mg po daily, lisinopril 5 mg po daily, protonix 40 mg po daily, flomax 0.4 mg po bid Social Hx: Former smoker, 1 ppd 20 years ago. No alcohol or illicit drug use. Lives with . Family Hx: noncontributory PMD: Dr. Montoya Heme/Onc: Dr. Bobby Present on Admission - Present on Admission Any Indicators Present on Admission: No Review of Systems - Review of Systems All systems: reviewed and no additional remarkable complaints except Review of Systems: as per HPI Past Patient History - Infectious Disease Hx of Infectious Diseases: None - Past Medical History & Family History Past Medical History?: Yes - Past Social History Smoking Status: Former Smoker - CARDIAC Hx Hypertension: Yes Hx Peripheral Edema: Yes - PULMONARY Hx Chronic Obstructive Pulmonary Disease (COPD): Yes - NEUROLOGICAL Hx Neurological Disorder: No - HEENT Hx HEENT Problems: No - RENAL Hx Chronic Kidney Disease: No - ENDOCRINE/METABOLIC Hx Endocrine Disorders: No - HEMATOLOGICAL/ONCOLOGICAL Hx Blood Disorders: Yes Hx Leukemia: Yes (Recieves Chemo last chemo tx was Thursday) - INTEGUMENTARY Hx Dermatological Problems: No - MUSCULOSKELETAL/RHEUMATOLOGICAL Hx Falls: No - GASTROINTESTINAL Hx Gastrointestinal Disorders: Yes Hx Constipation: Yes - GENITOURINARY/GYNECOLOGICAL Hx Genitourinary Disorders: No - PSYCHIATRIC Hx Substance Use: No (pt denies) - SURGICAL HISTORY Hx Surgeries: No - ANESTHESIA Hx Anesthesia: No Meds Allergies/Adverse Reactions: Allergies Allergy/AdvReac Type Severity Reaction Status Date / Time No Known Allergies Allergy Verified 11/29/18 17:20 Physical Exam - Constitutional Appears: Non-toxic, Cachectic, Chronically Ill - Head Exam Head Exam: ATRAUMATIC, NORMAL INSPECTION, NORMOCEPHALIC - Eye Exam Eye Exam: EOMI, Normal appearance, PERRL Pupil Exam: NORMAL ACCOMODATION - ENT Exam ENT Exam: Mucous Membranes Moist, Normal Exam - Neck Exam Neck exam: Positive for: Full Rom, Normal Inspection. Negative for: Tenderness - Respiratory Exam Respiratory Exam: Chest Wall Tenderness, Clear to Auscultation Bilateral, NORMAL BREATHING PATTERN. absent: Accessory Muscle Use, Rales, Rhonchi, Wheezes, Respiratory Distress, Stridor - Cardiovascular Exam Cardiovascular Exam: Tachycardia, +S1, +S2 - GI/Abdominal Exam GI & Abdominal Exam: Normal Bowel Sounds, Soft. absent: Distended, Firm, Guarding, Rebound, Rigid, Tenderness - Extremities Exam Extremities exam: Positive for: normal capillary refill, normal inspection, pedal pulses present. Negative for: calf tenderness, pedal edema - Back Exam Back exam: NORMAL INSPECTION. absent: CVA tenderness (L), CVA tenderness (R) - Neurological Exam Neurological exam: Alert, CN II-XII Intact, Oriented x3 - Psychiatric Exam Psychiatric exam: Normal Affect, Normal Mood - Skin Skin Exam: Dry, Intact, Normal Color, Warm Results - Vital Signs Recent Vital Signs: Last Vital Signs Temp 99.7 F H 11/29/18 19:01 Pulse 96 H 11/29/18 19:01 Resp 20 11/29/18 19:01 BP 89/33 L 11/29/18 19:01 Pulse Ox 100 11/29/18 19:01 - Labs Result Diagrams: 11/29/18 18:00 11/29/18 18:00 Labs: Laboratory Results - last 24 hr 11/29/18 11/29/18 11/29/18 17:32 18:00 18:00 WBC 0.4 L* D RBC 1.76 L Hgb 5.2 L* D Hct 15.7 L MCV 88.8 MCH 29.5 MCHC 33.3 RDW 15.4 H Plt Count 7 L* D MPV 9.6 Neut % (Auto) 2.2 L Lymph % (Auto) 40.4 H [place] % (Auto) 57.4 H Eos % (Auto) 0.0 Baso % (Auto) 0.0 Neut # (Auto) 0.0 L Lymph # (Auto) 0.2 L [place] # (Auto) 0.2 Eos # (Auto) 0.0 Baso # (Auto) 0.0 Total Counted Cancelled Neutrophils % (Manual) Cancelled Band Neutrophils % Cancelled Lymphocytes % (Manual) Cancelled Reactive Lymphs % Cancelled Monocytes % (Manual) Cancelled Eosinophils % (Manual) Cancelled Basophils % (Manual) Cancelled Metamyelocytes % Cancelled Myelocytes % Cancelled Promyelocytes % Cancelled Blast Cells % Cancelled Plasma Cell % (Manual) Cancelled Nucleated RBC % Cancelled Hypersegmented Polys Cancelled Smudge Cells Cancelled Toxic Granulation Cancelled Dohle Bodies Cancelled Nazanin Rods Cancelled Platelet Estimate Cancelled Plt Clumps, EDTA Cancelled Large Platelets Cancelled Giant Platelets Cancelled RBC Morphology Cancelled Polychromasia Cancelled Hypochromasia (manual) Cancelled Poikilocytosis (manual Cancelled Basophilic Stippling Cancelled Anisocytosis (manual) Cancelled Microcytosis (manual) Cancelled Macrocytosis (manual) Cancelled Spherocytes Cancelled Sickle Cells Cancelled Target Cells Cancelled Tear Drop Cells Cancelled Ovalocytes Cancelled Stomatocytes Cancelled Helmet Cells Cancelled [place] Bodies Cancelled [place] Cells Cancelled Acanthocytes (Spur) Cancelled Rouleaux Cancelled Schistocytes Cancelled PT 14.3 H INR 1.3 APTT 34 pO2 VBG pH VBG pCO2 VBG HCO3 VBG Total CO2 VBG O2 Sat (Calc) VBG Base Excess VBG Potassium Glucose Lactate Sodium Potassium Chloride Carbon Dioxide Anion Gap BUN Creatinine Est GFR ( Amer) Est GFR (Non-Af Amer) Random Glucose Calcium Total Bilirubin AST ALT Alkaline Phosphatase Troponin I Total Protein Albumin Globulin Albumin/Globulin Ratio Venous Blood Potassium Urine Color Urine Clarity Urine pH Ur Specific [place] Urine Protein Urine Glucose (UA) Urine Ketones Urine Blood Urine Nitrate Urine Bilirubin Urine Urobilinogen Ur Leukocyte Esterase Urine WBC (Auto) Urine RBC (Auto) Influenza Typ A,B (EIA) Negative for flu a/b 11/29/18 11/29/18 11/29/18 18:00 18:06 18:20 WBC RBC Hgb Hct MCV MCH MCHC RDW Plt Count MPV Neut % (Auto) Lymph % (Auto) [place] % (Auto) Eos % (Auto) Baso % (Auto) Neut # (Auto) Lymph # (Auto) [place] # (Auto) Eos # (Auto) Baso # (Auto) Total Counted Neutrophils % (Manual) Band Neutrophils % Lymphocytes % (Manual) Reactive Lymphs % Monocytes % (Manual) Eosinophils % (Manual) Basophils % (Manual) Metamyelocytes % Myelocytes % Promyelocytes % Blast Cells % Plasma Cell % (Manual) Nucleated RBC % Hypersegmented Polys Smudge Cells Toxic Granulation Dohle Bodies Naz[place] Rods Platelet Estimate Plt Clumps, EDTA Large Platelets Giant Platelets RBC Morphology Polychromasia Hypochromasia (manual) Poikilocytosis (manual Basophilic Stippling Anisocytosis (manual) Microcytosis (manual) Macrocytosis (manual) Spherocytes Sickle Cells Target Cells Tear Drop Cells Ovalocytes Stomatocytes Helmet Cells [place] Bodies [place] Cells Acanthocytes (Spur) Rouleaux Schistocytes PT INR APTT pO2 39 VBG pH 7.44 H VBG pCO2 36 L VBG HCO3 24.8 VBG Total CO2 25.6 VBG O2 Sat (Calc) 84.4 H VBG Base Excess 0.6 VBG Potassium 3.7 Glucose 107 Lactate 2.6 H Sodium 134 142.0 Potassium 4.2 Chloride 103 113.0 H Carbon Dioxide 23 Anion Gap 12 BUN 33 H Creatinine 1.1 Est GFR ( Amer) > 60 Est GFR (Non-Af Amer) > 60 Random Glucose 121 H Calcium 8.4 L Total Bilirubin 1.0 AST 16 L ALT 12 L Alkaline Phosphatase 58 Troponin I 0.0530 Total Protein 6.2 L Albumin 3.6 Globulin 2.6 Albumin/Globulin Ratio 1.4 Venous Blood Potassium 3.7 Urine Color Yellow Urine Clarity Clear Urine pH 5.0 Ur Specific [place] 1.013 Urine Protein Negative Urine Glucose (UA) Normal Urine Ketones Negative Urine Blood 2+ H Urine Nitrate Negative Urine Bilirubin Negative Urine Urobilinogen Normal Ur Leukocyte Esterase Neg Urine WBC (Auto) < 1 Urine RBC (Auto) 1 Influenza Typ A,B (EIA) Assessment & Plan - Assessment and Plan (Free Text) Assessment: 78 year old male with pmhx of AML, HTN, BPH presenting to ED with generalized weakness, fever x 1 day. Code Sepsis called in ED: Temp 103, HR 125, bands, Lactate 2.6. H/H 5.2/15.7, PLT 7, WBC 0.4. Pt to receive 2 units pRBC, 1 unit PLT, evaluate CBC in AM. Dr. Bobby (Heme/Onc) aware of case. Plan: Sepsis -Fever 103, HR 125, Bandemia -VBG lactate 2.6 -CXR: L mid and lower infiltrates -EKG: sinus tachy @124 bpm, LBBB (old) -serology: flu negative -s/p tylenol 975, NS bolus x 2, vanc/zosyn x 1 in ED -f/u ABG in AM, repeat labs -UCx, BCx -NS @100cc/hr -vanc/zosyn Symptomatic Anemia with Leukopenia and Thrombocytopenia 2/2 AML -WBC 0.4, PLT 7 -H/H: 5.2/15.7 -Heme/Onc (Dr. Bobby) consulted -pt to receive 2 units pRBCs, 1 unit PLTs tonight -f/u CBC, manual PLT AM -Goal Hb as close to 10 as possible, manual PLT count above 20 -isolation precautions HTN -patient currently hypotensive -home Lisinopril 5 mg PO daily held, evaluate in AM BPH -restart home Flomax 0.4 mg PO BID PPx, Diet, Disposition -DVT ppx: scds, chemical anticoagulation CI due to thrombocytopenia -GI ppx: protonix 40 mg PO daily -Diet: HHD Case discussed with Dr. Lindsay Venegas DO, PGY-1
[2018-11-29] MEDS: Sodium Chloride 0.9% 1,000 ML IV SCH (19:37)
[2018-11-29] MEDS ORDERED: Sodium Chloride 0.9% 1,000 ML IV SCH (19:45)
[2018-11-30] MEDS: Piperacill/Tazo 3.375gm in Dex 3.375 GM/50 ML BAG IVPB SCH ×5 (00:42→23:39)
--- NOTE | 2018-11-30 00:44 | PCM.SEPTIC ---
Sepsis Progress Note - Reassessment Type Date of Evaluation: 11/30/18 Time of Evaluation: 00:43 Reassessment Type: Non-invasive reassessment - Non Invasive Reassessment Were the most recent vital sign reviewed: Yes Vital Sign (Latest): Temp Pulse Resp BP Pulse Ox 102.4 F H 99 H 20 105/61 100 11/30/18 00:31 11/29/18 22:09 11/29/18 22:09 11/29/18 22:09 11/29/18 20:00 Cardiovascular: Yes: Tachycardia Respiratory: Yes: Normal Breath Sounds. No: Accessory Muscle Use, Rhonchi, Stridor, Wheezing, Respiratory Distress Capillary Refill: Normal (Less than 2 sec) Pulses: Normal Radial, Normal Dorsalis Pedis, Normal Posterior Tibialis Skin: Normal Color, Warm, Dry
[2018-11-30 03:53] LABS: EOS % 0.8 % (0.0-4.0); LYMPH # 0.2 K/uL (1.0-4.3); LYMPH % 51.5 % (20.0-40.0); MEAN CELL VOLUME 87.7 fL (80.0-94.0); MEAN CORPUSCULAR HEMOGLOBIN 29.4 pg (27.0-31.0); MEAN CORPUSCULAR HGB CONC 33.5 g/dL (33.0-37.0); MEAN PLATELET VOLUME 5.7 fL (7.2-11.7); MONO # 0.1 K/uL (0.0-0.8); MONO % 45.8 % (0.0-10.0); NEUT % 1.9 % (50.0-75.0); RBC 1.88 Mil/uL (4.40-5.90); RED CELL DISTRIBUTION WIDTH 14.8 % (11.5-14.5)
[2018-11-30 04:02] LABS: WHITE BLOOD COUNT 0.3 K/uL (4.8-10.8)
[2018-11-30 04:03] LABS: HEMOGLOBIN 5.5 g/dL (12.0-18.0); PLATELET COUNT 24 K/uL (130-400)
[2018-11-30] MEDS: Sodium Chloride 0.9% 1,000 ML IV SCH ×3 (05:48→22:00)
[2018-11-30 06:23] LABS: LYMPHOCYTE 55 % (20-40); MONOCYTE 44 % (0-10); NEUTROPHIL 1 % (50-75); TOTAL CELLS COUNTED 100
[2018-11-30 06:24] LABS: ANISOCYTOSIS SLIGHT; OVALOCYTES SLIGHT; PLATELET ESTIMATE MARKEDLY DECREASED (NORMAL); TEARDROP CELLS SLIGHT
[2018-11-30 06:25] LABS: MICROCYTOSIS SLIGHT; POLYCHROMIC SLIGHT; SCHISTOCYTES SLIGHT
[2018-11-30 07:05] LABS: ARTERIAL BLOOD GAS HEMOGLOBIN 10.4 g/dL (11.7-17.4); ARTERIAL BLOOD GAS O2 SAT 100.6 % (95-98); ARTERIAL BLOOD GAS PCO2 31 mm/Hg (35-45); ARTERIAL BLOOD GAS PH 7.44 (7.35-7.45); ARTERIAL BLOOD GAS PO2 286 mm/Hg (80-100); ARTERIAL BLOOD GAS TCO2 22.1 mmol/L (22-28)
--- NOTE | 2018-11-30 08:20 | RAD ---
Date of service: 11/30/2018 HISTORY: shortness of breath COMPARISON: 11/29/2018 FINDINGS: LUNGS: Interval left pneumothorax as below The prior mid lung zone irregular vague airspace opacity is obscured likely due to surrounding atelectasis. Areas of interstitial lung disease suspect in the mid to upper lung zones as well PLEURA: There is an interval left pneumothorax-the pleural reflection retracted approximately 1.6 cm inward along its entire left lateral margin from the left rib cage. Pneumo mediastinum also noted. A minimal left pleural effusion is probable The right apical pleural parenchymal opacity likely in part is bronchiectasis and scarring contiguous pleural thickening. CARDIOVASCULAR: No aortic atherosclerotic calcification present. Mild cardiomegaly suspect possible minimal pulmonary venous congestion. OSSEOUS STRUCTURES: Bilateral shoulder arthrosis. VISUALIZED UPPER ABDOMEN: Normal. OTHER FINDINGS: Leads and electro devices project over the thorax-correlate clinically IMPRESSION: Interval demonstration of a left pneumothorax and left pneumomediastinum. No tension pneumothorax believed present allowing for the differences in rotation and technique. Prior mid lung zone airspace opacity now obscured by blooming atelectasis. Follow-up recommended. Other findings as above. Comments: Prior to this dictation, the left pneumothorax finding was called up to the ICU nurse Sirisha at 8:13 a.m. on 11/30/2018 (who informed me that the physician is already aware of it)
[2018-11-30] MEDS ORDERED: Vancomycin 1 gm/NS 200 ml 1 GM/200 ML BAG IVPB SCH (10:00)
[2018-11-30 10:06] LABS: URINE BACTERIA RARE (<OCC); URINE BILIRUBIN NEGATIVE (NEGATIVE); URINE BLOOD 1+ (NEGATIVE); URINE CLARITY Clear (Clear); URINE COLOR Yellow (YELLOW); URINE GLUCOSE (UA) NORMAL (Normal); URINE LEUKOCYTE ESTERASE NEG Leu/uL (Negative); URINE PROTEIN NEGATIVE (NEGATIVE); URINE UROBILINOGEN NORMAL mg/dL (0.2-1.0)
[2018-11-30 10:07] LABS: BILIRUBIN,DIRECT 0.9 mg/dL (0.0-0.4)
--- NOTE | 2018-11-30 11:40 | CARD ---
APPROVED REPORT Date of service: 11/30/2018 EKG Measurement Heart [id number] <Conclusion> Sinus tachycardia Left atrial enlargement Left bundle branch block Abnormal ECG
--- NOTE | 2018-11-30 11:41 | CARD ---
APPROVED REPORT Date of service: 11/29/2018 EKG Measurement Heart [id number] <Conclusion> Sinus tachycardia Left bundle branch block Abnormal ECG
--- NOTE | 2018-11-30 12:02 | CP.PCM.CON ---
<Darell Lauren - Last Filed: 11/30/18 11:31> History of Present Illness - History of Present Illness History of Present Illness: PGY-1 ICU consult note for Dr Thurston service cc: SOB Patient is a 78 year old make with pmhx of newly diagnosed AML, HTN, BPH that came to ED yesterday for fever, weakness and decreased apetite and malaise that began yesterday. Patient has started immunotherapy last week, last chemo session on thursday. Pt also complain of left side chest pain since this morning. Upon arrival to ED, patient had fever of 103.5 F, blood work showing Hb 5.5/Hct 16.5, and platelets to be 24. Called code sepsis on patient, patient received 2 units of PRBC and one unit of platelets, patient continued having fever, and later developed shortness of breath and coughing, nonrebreather ordered and Rapid response was activated, and patient transferred to ICU for evaluation of respiratory distress in need of chest tube insertion due to left side pneumothorax. Patient seen in ICU, placed on bipap, complaining of chills and sob. no other complaints reported by patient. PMD: Dr. Montoya, Heme/Onc: Dr. Bobby PMHx: as stated in HPI PSHx: denies Allergies: NKDA Social Hx: Former smoker, 1 ppd 20 years ago. No alcohol or illicit drug use. Lives with . Family Hx: noncontributory Meds: please see record Review of Systems - Review of Systems All systems: reviewed and no additional remarkable complaints except Review of Systems: as per HPI Past Patient History - Infectious Disease Hx of Infectious Diseases: None - Past Medical History & Family History Past Medical History?: Yes - Past Social History Smoking Status: Former Smoker - CARDIAC Hx Hypertension: Yes Hx Peripheral Edema: Yes - PULMONARY Hx Chronic Obstructive Pulmonary Disease (COPD): Yes - NEUROLOGICAL Hx Neurological Disorder: No - HEENT Hx HEENT Problems: No - RENAL Hx Chronic Kidney Disease: No - ENDOCRINE/METABOLIC Hx Endocrine Disorders: No - HEMATOLOGICAL/ONCOLOGICAL Hx Blood Disorders: Yes Hx Leukemia: Yes (Recieves Chemo last chemo tx was Thursday) - INTEGUMENTARY Hx Dermatological Problems: No - MUSCULOSKELETAL/RHEUMATOLOGICAL Hx Falls: No - GASTROINTESTINAL Hx Gastrointestinal Disorders: Yes Hx Constipation: Yes - GENITOURINARY/GYNECOLOGICAL Hx Genitourinary Disorders: No - PSYCHIATRIC Hx Substance Use: No (pt denies) - SURGICAL HISTORY Hx Surgeries: No - ANESTHESIA Hx Anesthesia: No Meds Allergies/Adverse Reactions: Allergies Allergy/AdvReac Type Severity Reaction Status Date / Time No Known Allergies Allergy Verified 11/29/18 17:20 - Medications Medications: Current Medications Acetaminophen (Tylenol 325mg Tab) 650 mg PO Q6 PRN PRN Reason: Fever >100.4 F Last Admin: 11/30/18 00:31 Dose: 650 mg Sodium Chloride (Sodium Chloride 0.9%) 1,000 mls @ 100 mls/hr IV .Q10H ELDA Last Admin: 11/30/18 05:48 Dose: Not Given Piperacillin Sod/Tazobactam Sod (Zosyn 3.375 Gm Iv Premix) 3.375 gm in 50 mls @ 100 mls/hr IVPB Q6 ELDA; Protocol Last Admin: 11/30/18 09:06 Dose: Not Given Vancomycin/Sodium Chloride (Vancomycin 1 Gm/Ns 200 Ml) 1 gm in 200 mls @ 133 mls/hr IVPB DAILY ELDA; Protocol Stop: 12/05/18 10:01 Pantoprazole Sodium (Protonix Ec Tab) 40 mg PO DAILY ELDA Tamsulosin HCl (Flomax) 0.4 mg PO BID ELDA Physical Exam - Constitutional Appears: In Acute Distress, Chronically Ill - Head Exam Head Exam: ATRAUMATIC, NORMOCEPHALIC - Eye Exam Eye Exam: EOMI - ENT Exam ENT Exam: Mucous Membranes Moist - Neck Exam Neck exam: Positive for: Full Rom - Respiratory Exam Respiratory Exam: Chest Wall Tenderness, Decreased Breath Sounds (left upper ant erior lobe ), NORMAL BREATHING PATTERN - Cardiovascular Exam Cardiovascular Exam: Tachycardia, +S1, +S2 - GI/Abdominal Exam GI & Abdominal Exam: Normal Bowel Sounds, Soft - Back Exam Back exam: NORMAL INSPECTION - Neurological Exam Neurological exam: Alert, Oriented x3 - Psychiatric Exam Psychiatric exam: Normal Affect, Normal Mood - Skin Skin Exam: Dry, Intact, Normal Color, Warm Results - Vital Signs Recent Vital Signs: Last Vital Signs Temp 99.7 F H 11/30/18 10:45 Pulse 100 H 11/30/18 10:45 Resp 26 H 11/30/18 10:45 BP 123/50 L 11/30/18 10:45 Pulse Ox 100 01/22/19 10:02 - Labs Result Diagrams: 11/30/18 03:50 11/29/18 18:00 Labs: Laboratory Results - last 24 hr 11/29/18 11/29/18 11/29/18 17:32 18:00 18:00 WBC 0.4 L* D RBC 1.76 L Hgb 5.2 L* D Hct 15.7 L MCV 88.8 MCH 29.5 MCHC 33.3 RDW 15.4 H Plt Count 7 L* D MPV 9.6 Neut % (Auto) 2.2 L Lymph % (Auto) 40.4 H [place] % (Auto) 57.4 H Eos % (Auto) 0.0 Baso % (Auto) 0.0 Neut # (Auto) 0.0 L Lymph # (Auto) 0.2 L [place] # (Auto) 0.2 Eos # (Auto) 0.0 Baso # (Auto) 0.0 Total Counted Cancelled Neutrophils % (Manual) Cancelled Band Neutrophils % Cancelled Lymphocytes % (Manual) Cancelled Reactive Lymphs % Cancelled Monocytes % (Manual) Cancelled Eosinophils % (Manual) Cancelled Basophils % (Manual) Cancelled Metamyelocytes % Cancelled Myelocytes % Cancelled Promyelocytes % Cancelled Blast Cells % Cancelled Plasma Cell % (Manual) Cancelled Nucleated RBC % Cancelled Hypersegmented Polys Cancelled Smudge Cells Cancelled Toxic Granulation Cancelled Dohle Bodies Cancelled Nazanin Rods Cancelled Platelet Estimate Cancelled Plt Clumps, EDTA Cancelled Large Platelets Cancelled Giant Platelets Cancelled RBC Morphology Cancelled Polychromasia Cancelled Hypochromasia (manual) Cancelled Poikilocytosis (manual Cancelled Basophilic Stippling Cancelled Anisocytosis (manual) Cancelled Microcytosis (manual) Cancelled Macrocytosis (manual) Cancelled Spherocytes Cancelled Sickle Cells Cancelled Target Cells Cancelled Tear Drop Cells Cancelled Ovalocytes Cancelled Stomatocytes Cancelled Helmet Cells Cancelled Gunderson-Adelanto Bodies Cancelled [place] Cells Cancelled Acanthocytes (Spur) Cancelled Rouleaux Cancelled Schistocytes Cancelled PT 14.3 H INR 1.3 APTT 34 Puncture Site pCO2 pO2 HCO3 ABG pH ABG Total CO2 ABG O2 Saturation ABG Base Excess ABG Hemoglobin ABG Carboxyhemoglobin POC ABG HHb (Measured) ABG Methemoglobin Eyal Test VBG pH VBG pCO2 VBG HCO3 VBG Total CO2 VBG O2 Sat (Calc) VBG Base Excess VBG Potassium A-a O2 Difference Respiratory Index Hgb O2 Saturation Glucose Lactate Vent Mode FiO2 Inspiratory BiPAP Expiratory BiPAP Sodium Potassium Chloride Carbon Dioxide Anion Gap BUN Creatinine Est GFR ( Amer) Est GFR (Non-Af Amer) POC Glucose (mg/dL) Random Glucose Calcium Total Bilirubin Direct Bilirubin AST ALT Alkaline Phosphatase Troponin I Total Protein Albumin Globulin Albumin/Globulin Ratio Venous Blood Potassium Urine Color Urine Clarity Urine pH Ur Specific [place] Urine Protein Urine Glucose (UA) Urine Ketones Urine Blood Urine Nitrate Urine Bilirubin Urine Urobilinogen Ur Leukocyte Esterase Urine WBC (Auto) Urine RBC (Auto) Urine Bacteria Influenza Typ A,B (EIA) Negative for flu a/b Blood Type Antibody Screen Tx React Basic Work-up Clerical Work Check Pre-Trans Blood Type Pre-Trans Vis Hemolysis Pre-Tx Ab Screen (Gel) Post-Trans Blood Type Post-Tx Visible Hemolys Post-Tx Ab Screen (Gel) Post-Trans GARRY Poly Pathologist Comment BBK 11/29/18 11/29/18 11/29/18 18:00 18:06 18:20 WBC RBC Hgb Hct MCV MCH MCHC RDW Plt Count MPV Neut % (Auto) Lymph % (Auto) [place] % (Auto) Eos % (Auto) Baso % (Auto) Neut # (Auto) Lymph # (Auto) [place] # (Auto) Eos # (Auto) Baso # (Auto) Total Counted Neutrophils % (Manual) Band Neutrophils % Lymphocytes % (Manual) Reactive Lymphs % Monocytes % (Manual) Eosinophils % (Manual) Basophils % (Manual) Metamyelocytes % Myelocytes % Promyelocytes % Blast Cells % Plasma Cell % (Manual) Nucleated RBC % Hypersegmented Polys Smudge Cells Toxic Granulation Dohle Bodies Nazanin Rods Platelet Estimate Plt Clumps, EDTA Large Platelets Giant Platelets RBC Morphology Polychromasia Hypochromasia (manual) Poikilocytosis (manual Basophilic Stippling Anisocytosis (manual) Microcytosis (manual) Macrocytosis (manual) Spherocytes Sickle Cells Target Cells Tear Drop Cells Ovalocytes Stomatocytes Helmet Cells Gunderson-Adelanto Bodies [place] Cells Acanthocytes (Spur) Rouleaux Schistocytes PT INR APTT Puncture Site pCO2 pO2 39 HCO3 ABG pH ABG Total CO2 ABG O2 Saturation ABG Base Excess ABG Hemoglobin ABG Carboxyhemoglobin POC ABG HHb (Measured) ABG Methemoglobin Eyal Test VBG pH 7.44 H VBG pCO2 36 L VBG HCO3 24.8 VBG Total CO2 25.6 VBG O2 Sat (Calc) 84.4 H VBG Base Excess 0.6 VBG Potassium 3.7 A-a O2 Difference Respiratory Index Hgb O2 Saturation Glucose 107 Lactate 2.6 H Vent Mode FiO2 Inspiratory BiPAP Expiratory BiPAP Sodium 134 142.0 Potassium 4.2 Chloride 103 113.0 H Carbon Dioxide 23 Anion Gap 12 BUN 33 H Creatinine 1.1 Est GFR ( Amer) > 60 Est GFR (Non-Af Amer) > 60 POC Glucose (mg/dL) Random Glucose 121 H Calcium 8.4 L Total Bilirubin 1.0 Direct Bilirubin AST 16 L ALT 12 L Alkaline Phosphatase 58 Troponin I 0.0530 Total Protein 6.2 L Albumin 3.6 Globulin 2.6 Albumin/Globulin Ratio 1.4 Venous Blood Potassium 3.7 Urine Color Yellow Urine Clarity Clear Urine pH 5.0 Ur Specific [place] 1.013 Urine Protein Negative Urine Glucose (UA) Normal Urine Ketones Negative Urine Blood 2+ H Urine Nitrate Negative Urine Bilirubin Negative Urine Urobilinogen Normal Ur Leukocyte Esterase Neg Urine WBC (Auto) < 1 Urine RBC (Auto) 1 Urine Bacteria Influenza Typ A,B (EIA) Blood Type Antibody Screen Tx React Basic Work-up Clerical Work Check Pre-Trans Blood Type Pre-Trans Vis Hemolysis Pre-Tx Ab Screen (Gel) Post-Trans Blood Type Post-Tx Visible Hemolys Post-Tx Ab Screen (Gel) Post-Trans GARRY Poly Pathologist Comment BBK 11/29/18 11/30/18 11/30/18 19:18 03:50 06:39 WBC 0.3 L* RBC 1.88 L Hgb 5.5 L* Hct 16.5 L MCV 87.7 MCH 29.4 MCHC 33.5 RDW 14.8 H Plt Count 24 L* D MPV 5.7 L Neut % (Auto) 1.9 L Lymph % (Auto) 51.5 H [place] % (Auto) 45.8 H Eos % (Auto) 0.8 Baso % (Auto) 0.0 Neut # (Auto) 0.0 L Lymph # (Auto) 0.2 L [place] # (Auto) 0.1 Eos # (Auto) 0.0 Baso # (Auto) 0.0 Total Counted Neutrophils % (Manual) 1 L Band Neutrophils % Lymphocytes % (Manual) 55 H Reactive Lymphs % Monocytes % (Manual) 44 H Eosinophils % (Manual) Basophils % (Manual) Metamyelocytes % Myelocytes % Promyelocytes % Blast Cells % Plasma Cell % (Manual) Nucleated RBC % Hypersegmented Polys Smudge Cells Toxic Granulation Dohle Bodies Nazanin Rods Platelet Estimate Markedly decreased L Plt Clumps, EDTA Large Platelets Giant Platelets RBC Morphology Polychromasia Slight Hypochromasia (manual) Poikilocytosis (manual Basophilic Stippling Anisocytosis (manual) Slight Microcytosis (manual) Slight Macrocytosis (manual) Spherocytes Sickle Cells Target Cells Tear Drop Cells Slight Ovalocytes Slight Stomatocytes Helmet Cells Gunderson-Adelanto Bodies [place] Cells Acanthocytes (Spur) Rouleaux Schistocytes Slight PT INR APTT Puncture Site pCO2 pO2 HCO3 ABG pH ABG Total CO2 ABG O2 Saturation ABG Base Excess ABG Hemoglobin ABG Carboxyhemoglobin POC ABG HHb (Measured) ABG Methemoglobin Eyal Test VBG pH VBG pCO2 VBG HCO3 VBG Total CO2 VBG O2 Sat (Calc) VBG Base Excess VBG Potassium A-a O2 Difference Respiratory Index Hgb O2 Saturation Glucose Lactate Vent Mode FiO2 Inspiratory BiPAP Expiratory BiPAP Sodium Potassium Chloride Carbon Dioxide Anion Gap BUN Creatinine Est GFR ( Amer) Est GFR (Non-Af Amer) POC Glucose (mg/dL) 121 H Random Glucose Calcium Total Bilirubin Direct Bilirubin AST ALT Alkaline Phosphatase Troponin I Total Protein Albumin Globulin Albumin/Globulin Ratio Venous Blood Potassium Urine Color Urine Clarity Urine pH Ur Specific [place] Urine Protein Urine Glucose (UA) Urine Ketones Urine Blood Urine Nitrate Urine Bilirubin Urine Urobilinogen Ur Leukocyte Esterase Urine WBC (Auto) Urine RBC (Auto) Urine Bacteria Influenza Typ A,B (EIA) Blood Type B POSITIVE Antibody Screen Negative Tx React Basic Work-up Clerical Work Check Pre-Trans Blood Type Pre-Trans Vis Hemolysis Pre-Tx Ab Screen (Gel) Post-Trans Blood Type Post-Tx Visible Hemolys Post-Tx Ab Screen (Gel) Post-Trans GARRY Poly Pathologist Comment BBK 11/30/18 11/30/18 11/30/18 07:00 07:50 09:43 WBC RBC Hgb Hct MCV MCH MCHC RDW Plt Count MPV Neut % (Auto) Lymph % (Auto) [place] % (Auto) Eos % (Auto) Baso % (Auto) Neut # (Auto) Lymph # (Auto) [place] # (Auto) Eos # (Auto) Baso # (Auto) Total Counted Neutrophils % (Manual) Band Neutrophils % Lymphocytes % (Manual) Reactive Lymphs % Monocytes % (Manual) Eosinophils % (Manual) Basophils % (Manual) Metamyelocytes % Myelocytes % Promyelocytes % Blast Cells % Plasma Cell % (Manual) Nucleated RBC % Hypersegmented Polys Smudge Cells Toxic Granulation Dohle Bodies Nazanin Rods Platelet Estimate Plt Clumps, EDTA Large Platelets Giant Platelets RBC Morphology Polychromasia Hypochromasia (manual) Poikilocytosis (manual Basophilic Stippling Anisocytosis (manual) Microcytosis (manual) Macrocytosis (manual) Spherocytes Sickle Cells Target Cells Tear Drop Cells Ovalocytes Stomatocytes Helmet Cells Gunderson-Adelanto Bodies Terry Cells Acanthocytes (Spur) Rouleaux Schistocytes PT INR APTT Puncture Site Rb pCO2 31 L pO2 286 H HCO3 23.0 ABG pH 7.44 ABG Total CO2 22.1 ABG O2 Saturation 100.6 H ABG Base Excess -2.4 L ABG Hemoglobin 10.4 L ABG Carboxyhemoglobin 3.3 H POC ABG HHb (Measured) -0.6 L ABG Methemoglobin 1.3 Eyal Test Na VBG pH VBG pCO2 VBG HCO3 VBG Total CO2 VBG O2 Sat (Calc) VBG Base Excess VBG Potassium A-a O2 Difference 388.0 Respiratory Index 1.4 Hgb O2 Saturation 96.0 Glucose Lactate Vent Mode Bipap FiO2 100.0 Inspiratory BiPAP 12 Expiratory BiPAP 6 Sodium Potassium Chloride Carbon Dioxide Anion Gap BUN Creatinine Est GFR ( Amer) Est GFR (Non-Af Amer) POC Glucose (mg/dL) Random Glucose Calcium Total Bilirubin 2.6 H Direct Bilirubin 0.9 H AST ALT Alkaline Phosphatase Troponin I Total Protein Albumin Globulin Albumin/Globulin Ratio Venous Blood Potassium Urine Color Urine Clarity Urine pH Ur Specific [place] Urine Protein Urine Glucose (UA) Urine Ketones Urine Blood Urine Nitrate Urine Bilirubin Urine Urobilinogen Ur Leukocyte Esterase Urine WBC (Auto) Urine RBC (Auto) Urine Bacteria Influenza Typ A,B (EIA) Blood Type Antibody Screen Tx React Basic Work-up Compatible Clerical Work Check No discrepancy Pre-Trans Blood Type B POSITIVE Pre-Trans Vis Hemolysis No hemolysis Pre-Tx Ab Screen (Gel) Negative Post-Trans Blood Type B POSITIVE Post-Tx Visible Hemolys No hemolysis Post-Tx Ab Screen (Gel) Negative Post-Trans GARRY Poly Negative Pathologist Comment BBK See note 11/30/18 09:43 WBC RBC Hgb Hct MCV MCH MCHC RDW Plt Count MPV Neut % (Auto) Lymph % (Auto) [place] % (Auto) Eos % (Auto) Baso % (Auto) Neut # (Auto) Lymph # (Auto) [place] # (Auto) Eos # (Auto) Baso # (Auto) Total Counted Neutrophils % (Manual) Band Neutrophils % Lymphocytes % (Manual) Reactive Lymphs % Monocytes % (Manual) Eosinophils % (Manual) Basophils % (Manual) Metamyelocytes % Myelocytes % Promyelocytes % Blast Cells % Plasma Cell % (Manual) Nucleated RBC % Hypersegmented Polys Smudge Cells Toxic Granulation Dohle Bodies Nazanin Rods Platelet Estimate Plt Clumps, EDTA Large Platelets Giant Platelets RBC Morphology Polychromasia Hypochromasia (manual) Poikilocytosis (manual Basophilic Stippling Anisocytosis (manual) Microcytosis (manual) Macrocytosis (manual) Spherocytes Sickle Cells Target Cells Tear Drop Cells Ovalocytes Stomatocytes Helmet Cells Gunderson-Adelanto Bodies [place] Cells Acanthocytes (Spur) Rouleaux Schistocytes PT INR APTT Puncture Site pCO2 pO2 HCO3 ABG pH ABG Total CO2 ABG O2 Saturation ABG Base Excess ABG Hemoglobin ABG Carboxyhemoglobin POC ABG HHb (Measured) ABG Methemoglobin Eyal Test VBG pH VBG pCO2 VBG HCO3 VBG Total CO2 VBG O2 Sat (Calc) VBG Base Excess VBG Potassium A-a O2 Difference Respiratory Index Hgb O2 Saturation Glucose Lactate Vent Mode FiO2 Inspiratory BiPAP Expiratory BiPAP Sodium Potassium Chloride Carbon Dioxide Anion Gap BUN Creatinine Est GFR ( Amer) Est GFR (Non-Af Amer) POC Glucose (mg/dL) Random Glucose Calcium Total Bilirubin Direct Bilirubin AST ALT Alkaline Phosphatase Troponin I Total Protein Albumin Globulin Albumin/Globulin Ratio Venous Blood Potassium Urine Color Yellow Urine Clarity Clear Urine pH 5.0 Ur Specific [place] 1.012 Urine Protein Negative Urine Glucose (UA) Normal Urine Ketones Negative Urine Blood 1+ H Urine Nitrate Negative Urine Bilirubin Negative Urine Urobilinogen Normal Ur Leukocyte Esterase Neg Urine WBC (Auto) < 1 Urine RBC (Auto) 3 Urine Bacteria Rare Influenza Typ A,B (EIA) Blood Type Antibody Screen Tx React Basic Work-up Clerical Work Check Pre-Trans Blood Type Pre-Trans Vis Hemolysis Pre-Tx Ab Screen (Gel) Post-Trans Blood Type Post-Tx Visible Hemolys Post-Tx Ab Screen (Gel) Post-Trans GARRY Poly Pathologist Comment BBK Assessment & Plan - Assessment and Plan (Free Text) Assessment: Patient is a 78 year old male with pmhx of newly diagnosed AML on immunotherapy, HTN, BPH, came to ED today for general weakness, left side chest pain and fevers, Tmax at ED 103F, tachycardia, leukopenia, thrombocytopenia at 7, with hb 5.5, lac 2.6, CXR showing Left pneumothorax, [employer] called for SOB, transferred to ICU for Pig tail tube insertion Plan: Neuro AAOx3 Cardio EKG: sinus tachy @124 bpm, LBBB (old) Hypotensive - blood pressure came up after chest tube placement HTN meds held for now continue to monitor BP Pulm SOB, desaturating in floor - [employer]ER called CXray on admission - Left mid and lower lung infiltrates repeat Cxray - left Pneumothorax and left pneumomediastinum on left upper lobe. no tension Pneumothorax On bipap placed when transferred to ICU Pig tail insertion, placed left side of chest - 300 cc of air/fluid removed f/u Chest Xray GI HHD Protonix Renal BUN/Cr 33/1.1 continue to monitor hx of BPH - cont home flomax Heme/Onc On admission H/H 5.2, 15.7, PLT 7 2 PRBCs, 1 Plt post transfusion repeat H/H 5.5, 16.5, PLT [address] Bobby - Heme/Onc - Goal of Hb of 10, Plts of 20 - f/u recs Recheck CBC after transfusion ID Tmax 103F, bands, HR elevated, lactate 2.6 - CODE SEPSIS called Tylenol 975 x 1, tylenol 650 x1 in ED/floors WBC 0.4 2/2 hx of AML Blood, Urine cx - pending Vanc and Zosyn tylenol PRN continue monitoring Vitals repeat lactate levels cont NS @100 cc f/u am labs PPX DVT: SCDS, no chemical anticoagulation indicated due to thrombocytopeia GI - Protonix Plan discussed with Dr Bertrand Lauren, PGY-1 - Date & Time Date: 11/30/18 Time: 07:45 <Narendra Thurston - Last Filed: 11/30/18 18:32> Meds - Medications Medications: Current Medications Acetaminophen (Tylenol 325mg Tab) 650 mg PO Q6 PRN PRN Reason: Fever >100.4 F Last Admin: 11/30/18 15:34 Dose: 650 mg Sodium Chloride (Sodium Chloride 0.9%) 1,000 mls @ 100 mls/hr IV .Q10H ELDA Last Admin: 11/30/18 17:54 Dose: Not Given Piperacillin Sod/Tazobactam Sod (Zosyn 3.375 Gm Iv Premix) 3.375 gm in 50 mls @ 100 mls/hr IVPB Q6 ELDA; Protocol Last Admin: 11/30/18 17:50 Dose: 100 mls/hr Vancomycin/Sodium Chloride (Vancomycin 1 Gm/Ns 200 Ml) 1 gm in 200 mls @ 133 mls/hr IVPB DAILY@1700 ELDA; Protocol Stop: 12/05/18 17:01 Last Admin: 11/30/18 17:50 Dose: 133 mls/hr Pantoprazole Sodium (Protonix Ec Tab) 40 mg PO DAILY ELDA Last Admin: 11/30/18 13:57 Dose: Not Given Tamsulosin HCl (Flomax) 0.4 mg PO BID [facility] Last Admin: 11/30/18 17:50 Dose: 0.4 mg Results - Vital Signs Recent Vital Signs: Last Vital Signs Temp 98.9 F 11/30/18 16:59 Pulse 108 H 11/30/18 16:59 Resp 29 H 11/30/18 16:59 BP 98/40 L 11/30/18 16:59 Pulse Ox 100 11/30/18 16:42 - Labs Result Diagrams: 11/30/18 03:50 11/29/18 18:00 Labs: Laboratory Results - last 24 hr 11/29/18 11/29/18 11/29/18 18:00 18:00 18:20 WBC 0.4 L* D RBC 1.76 L Hgb 5.2 L* D Hct 15.7 L MCV 88.8 MCH 29.5 MCHC 33.3 RDW 15.4 H Plt Count 7 L* D MPV 9.6 Neut % (Auto) 2.2 L Lymph % (Auto) 40.4 H [place] % (Auto) 57.4 H Eos % (Auto) 0.0 Baso % (Auto) 0.0 Neut # (Auto) 0.0 L Lymph # (Auto) 0.2 L [place] # (Auto) 0.2 Eos # (Auto) 0.0 Baso # (Auto) 0.0 Total Counted Cancelled Neutrophils % (Manual) Cancelled Band Neutrophils % Cancelled Lymphocytes % (Manual) Cancelled Reactive Lymphs % Cancelled Monocytes % (Manual) Cancelled Eosinophils % (Manual) Cancelled Basophils % (Manual) Cancelled Metamyelocytes % Cancelled Myelocytes % Cancelled Promyelocytes % Cancelled Blast Cells % Cancelled Plasma Cell % (Manual) Cancelled Nucleated RBC % Cancelled Hypersegmented Polys Cancelled Smudge Cells Cancelled Toxic Granulation Cancelled Dohle Bodies Cancelled Nazanin Rods Cancelled Platelet Estimate Cancelled Plt Clumps, EDTA Cancelled Large Platelets Cancelled Giant Platelets Cancelled RBC Morphology Cancelled Polychromasia Cancelled Hypochromasia (manual) Cancelled Poikilocytosis (manual Cancelled Basophilic Stippling Cancelled Anisocytosis (manual) Cancelled Microcytosis (manual) Cancelled Macrocytosis (manual) Cancelled Spherocytes Cancelled Sickle Cells Cancelled Target Cells Cancelled Tear Drop Cells Cancelled Ovalocytes Cancelled Stomatocytes Cancelled Helmet Cells Cancelled Gunderson-Adelanto Bodies Cancelled [place] Cells Cancelled Acanthocytes (Spur) Cancelled Rouleaux Cancelled Schistocytes Cancelled Puncture Site pCO2 pO2 HCO3 ABG pH ABG Total CO2 ABG O2 Saturation ABG Base Excess ABG Hemoglobin ABG Carboxyhemoglobin POC ABG HHb (Measured) ABG Methemoglobin Eyal Test A-a O2 Difference Respiratory Index Hgb O2 Saturation Vent Mode FiO2 Inspiratory BiPAP Expiratory BiPAP Sodium 134 Potassium 4.2 Chloride 103 Carbon Dioxide 23 Anion Gap 12 BUN 33 H Creatinine 1.1 Est GFR ( Amer) > 60 Est GFR (Non-Af Amer) > 60 POC Glucose (mg/dL) Random Glucose 121 H Lactic Acid Calcium 8.4 L Total Bilirubin 1.0 Direct Bilirubin AST 16 L ALT 12 L Alkaline Phosphatase 58 Total Protein 6.2 L Albumin 3.6 Globulin 2.6 Albumin/Globulin Ratio 1.4 Urine Color Yellow Urine Clarity Clear Urine pH 5.0 Ur Specific [place] 1.013 Urine Protein Negative Urine Glucose (UA) Normal Urine Ketones Negative Urine Blood 2+ H Urine Nitrate Negative Urine Bilirubin Negative Urine Urobilinogen Normal Ur Leukocyte Esterase Neg Urine WBC (Auto) < 1 Urine RBC (Auto) 1 Urine Bacteria Blood Type Antibody Screen Tx React Basic Work-up Clerical Work Check Pre-Trans Blood Type Pre-Trans Vis Hemolysis Pre-Tx Ab Screen (Gel) Post-Trans Blood Type Post-Tx Visible Hemolys Post-Tx Ab Screen (Gel) Post-Trans GARRY Poly Pathologist Comment BBK 11/29/18 11/30/18 11/30/18 19:18 03:50 06:39 WBC 0.3 L* RBC 1.88 L Hgb 5.5 L* Hct 16.5 L MCV 87.7 MCH 29.4 MCHC 33.5 RDW 14.8 H Plt Count 24 L* D MPV 5.7 L Neut % (Auto) 1.9 L Lymph % (Auto) 51.5 H [place] % (Auto) 45.8 H Eos % (Auto) 0.8 Baso % (Auto) 0.0 Neut # (Auto) 0.0 L Lymph # (Auto) 0.2 L [place] # (Auto) 0.1 Eos # (Auto) 0.0 Baso # (Auto) 0.0 Total Counted Neutrophils % (Manual) 1 L Band Neutrophils % Lymphocytes % (Manual) 55 H Reactive Lymphs % Monocytes % (Manual) 44 H Eosinophils % (Manual) Basophils % (Manual) Metamyelocytes % Myelocytes % Promyelocytes % Blast Cells % Plasma Cell % (Manual) Nucleated RBC % Hypersegmented Polys Smudge Cells Toxic Granulation Dohle Bodies Nazanin Rods Platelet Estimate Markedly decreased L Plt Clumps, EDTA Large Platelets Giant Platelets RBC Morphology Polychromasia Slight Hypochromasia (manual) Poikilocytosis (manual Basophilic Stippling Anisocytosis (manual) Slight Microcytosis (manual) Slight Macrocytosis (manual) Spherocytes Sickle Cells Target Cells Tear Drop Cells Slight Ovalocytes Slight Stomatocytes Helmet Cells Gunderson-[place] Bodies [place] Cells Acanthocytes (Spur) Rouleaux Schistocytes Slight Puncture Site pCO2 pO2 HCO3 ABG pH ABG Total CO2 ABG O2 Saturation ABG Base Excess ABG Hemoglobin ABG Carboxyhemoglobin POC ABG HHb (Measured) ABG Methemoglobin Eyal Test A-a O2 Difference Respiratory Index Hgb O2 Saturation Vent Mode FiO2 Inspiratory BiPAP Expiratory BiPAP Sodium Potassium Chloride Carbon Dioxide Anion Gap BUN Creatinine Est GFR ( Amer) Est GFR (Non-Af Amer) POC Glucose (mg/dL) 121 H Random Glucose Lactic Acid Calcium Total Bilirubin Direct Bilirubin AST ALT Alkaline Phosphatase Total Protein Albumin Globulin Albumin/Globulin Ratio Urine Color Urine Clarity Urine pH Ur Specific [place] Urine Protein Urine Glucose (UA) Urine Ketones Urine Blood Urine Nitrate Urine Bilirubin Urine Urobilinogen Ur Leukocyte Esterase Urine WBC (Auto) Urine RBC (Auto) Urine Bacteria Blood Type B POSITIVE Antibody Screen Negative Tx React Basic Work-up Clerical Work Check Pre-Trans Blood Type Pre-Trans Vis Hemolysis Pre-Tx Ab Screen (Gel) Post-Trans Blood Type Post-Tx Visible Hemolys Post-Tx Ab Screen (Gel) Post-Trans GARRY Poly Pathologist Comment BBK 11/30/18 11/30/18 11/30/18 07:00 07:50 09:43 WBC RBC Hgb Hct MCV MCH MCHC RDW Plt Count MPV Neut % (Auto) Lymph % (Auto) [place] % (Auto) Eos % (Auto) Baso % (Auto) Neut # (Auto) Lymph # (Auto) [place] # (Auto) Eos # (Auto) Baso # (Auto) Total Counted Neutrophils % (Manual) Band Neutrophils % Lymphocytes % (Manual) Reactive Lymphs % Monocytes % (Manual) Eosinophils % (Manual) Basophils % (Manual) Metamyelocytes % Myelocytes % Promyelocytes % Blast Cells % Plasma Cell % (Manual) Nucleated RBC % Hypersegmented Polys Smudge Cells Toxic Granulation Dohle Bodies Nazanin Rods Platelet Estimate Plt Clumps, EDTA Large Platelets Giant Platelets RBC Morphology Polychromasia Hypochromasia (manual) Poikilocytosis (manual Basophilic Stippling Anisocytosis (manual) Microcytosis (manual) Macrocytosis (manual) Spherocytes Sickle Cells Target Cells Tear Drop Cells Ovalocytes Stomatocytes Helmet Cells Gunderson-Adelanto Bodies Terry Cells Acanthocytes (Spur) Rouleaux Schistocytes Puncture Site Rb pCO2 31 L pO2 286 H HCO3 23.0 ABG pH 7.44 ABG Total CO2 22.1 ABG O2 Saturation 100.6 H ABG Base Excess -2.4 L ABG Hemoglobin 10.4 L ABG Carboxyhemoglobin 3.3 H POC ABG HHb (Measured) -0.6 L ABG Methemoglobin 1.3 Eyal Test Na A-a O2 Difference 388.0 Respiratory Index 1.4 Hgb O2 Saturation 96.0 Vent Mode Bipap FiO2 100.0 Inspiratory BiPAP 12 Expiratory BiPAP 6 Sodium Potassium Chloride Carbon Dioxide Anion Gap BUN Creatinine Est GFR ( Amer) Est GFR (Non-Af Amer) POC Glucose (mg/dL) Random Glucose Lactic Acid Calcium Total Bilirubin 2.6 H Direct Bilirubin 0.9 H AST ALT Alkaline Phosphatase Total Protein Albumin Globulin Albumin/Globulin Ratio Urine Color Urine Clarity Urine pH Ur Specific [place] Urine Protein Urine Glucose (UA) Urine Ketones Urine Blood Urine Nitrate Urine Bilirubin Urine Urobilinogen Ur Leukocyte Esterase Urine WBC (Auto) Urine RBC (Auto) Urine Bacteria Blood Type Antibody Screen Tx React Basic Work-up Compatible Clerical Work Check No discrepancy Pre-Trans Blood Type B POSITIVE Pre-Trans Vis Hemolysis No hemolysis Pre-Tx Ab Screen (Gel) Negative Post-Trans Blood Type B POSITIVE Post-Tx Visible Hemolys No hemolysis Post-Tx Ab Screen (Gel) Negative Post-Trans GARRY Poly Negative Pathologist Comment BBK See note 11/30/18 11/30/18 09:43 11:27 WBC RBC Hgb Hct MCV MCH MCHC RDW Plt Count MPV Neut % (Auto) Lymph % (Auto) [place] % (Auto) Eos % (Auto) Baso % (Auto) Neut # (Auto) Lymph # (Auto) [place] # (Auto) Eos # (Auto) Baso # (Auto) Total Counted Neutrophils % (Manual) Band Neutrophils % Lymphocytes % (Manual) Reactive Lymphs % Monocytes % (Manual) Eosinophils % (Manual) Basophils % (Manual) Metamyelocytes % Myelocytes % Promyelocytes % Blast Cells % Plasma Cell % (Manual) Nucleated RBC % Hypersegmented Polys Smudge Cells Toxic Granulation Dohle Bodies Nazanin Rods Platelet Estimate Plt Clumps, EDTA Large Platelets Giant Platelets RBC Morphology Polychromasia Hypochromasia (manual) Poikilocytosis (manual Basophilic Stippling Anisocytosis (manual) Microcytosis (manual) Macrocytosis (manual) Spherocytes Sickle Cells Target Cells Tear Drop Cells Ovalocytes Stomatocytes Helmet Cells Gunderson-Adelanto Bodies Terry Cells Acanthocytes (Spur) Rouleaux Schistocytes Puncture Site pCO2 pO2 HCO3 ABG pH ABG Total CO2 ABG O2 Saturation ABG Base Excess ABG Hemoglobin ABG Carboxyhemoglobin POC ABG HHb (Measured) ABG Methemoglobin Eyal Test A-a O2 Difference Respiratory Index Hgb O2 Saturation Vent Mode FiO2 Inspiratory BiPAP Expiratory BiPAP Sodium Potassium Chloride Carbon Dioxide Anion Gap BUN Creatinine Est GFR ( Amer) Est GFR (Non-Af Amer) POC Glucose (mg/dL) Random Glucose Lactic Acid 2.0 Calcium Total Bilirubin Direct Bilirubin AST ALT Alkaline Phosphatase Total Protein Albumin Globulin Albumin/Globulin Ratio Urine Color Yellow Urine Clarity Clear Urine pH 5.0 Ur Specific [place] 1.012 Urine Protein Negative Urine Glucose (UA) Normal Urine Ketones Negative Urine Blood 1+ H Urine Nitrate Negative Urine Bilirubin Negative Urine Urobilinogen Normal Ur Leukocyte Esterase Neg Urine WBC (Auto) < 1 Urine RBC (Auto) 3 Urine Bacteria Rare Blood Type Antibody Screen Tx React Basic Work-up Clerical Work Check Pre-Trans Blood Type Pre-Trans Vis Hemolysis Pre-Tx Ab Screen (Gel) Post-Trans Blood Type Post-Tx Visible Hemolys Post-Tx Ab Screen (Gel) Post-Trans GARRY Poly Pathologist Comment BBK Attending/Attestation - Attestation I have personally seen and examined this patient.: Yes I have fully participated in the care of the patient.: Yes I have reviewed all pertinent clinical information: Yes Notes (Text): 11/30/18 18:30 Patient seen and examined. 78-year-old male was admitted on the floor with fever, pancytopenia and possible pneumonia. Patient was transferred to intensive care unit for respiratory distress and left pneumothorax status post Heimlich valve placement. Patient was also placed on BiPAP for respiratory distress IV antibiotics Follow-up culture and sensitivity Transfuse packed RBCs and platelets if needed Oncology follow-up
--- NOTE | 2018-11-30 12:43 | RAD ---
Date of service: 11/30/2018 HISTORY: sob, concern for pneumothorax, pleural effusion COMPARISON: 11/30/2018 at 0645 hr FINDINGS: LUNGS: The ill-defined left mid and lower lung zone coalescent airspace opacity with coalescing atelectasis/infiltrate shows some patchy partial improved aeration. The size of the left pleural effusion appears slightly less. The size of the left pneumothorax appears increased. The carinal level airways appears maintained in position no significant appearing tension pneumothorax appreciated. Background interstitial lung disease and biapical pleural parenchymal scarring and traction bronchiectasis changes are noted those on the left side are more conspicuous now than before. PLEURA: Left pleural effusion slightly smaller. Size of left pneumothorax increased as referenced above. CARDIOVASCULAR: No aortic atherosclerotic calcification present. Heart size within normal limits. Mild pulmonary venous congestion not excluded. OSSEOUS STRUCTURES: Bilateral shoulder arthrosis. VISUALIZED UPPER ABDOMEN: Normal. OTHER FINDINGS: Extensive overlying leads monitoring electrodes noted. IMPRESSION: Interval increasing left pneumothorax as detailed above. No gross tension pneumothorax appreciated. Please note the subsequent chest x-ray report. The prior chest x-ray demonstration of pneumothorax had been called in to the ICU nurse taking care of the patient
--- NOTE | 2018-11-30 12:47 | RAD ---
Date of service: 11/30/2018 PROCEDURE: CHEST RADIOGRAPH, 1 VIEW HISTORY: Pig tail insertion COMPARISON: 11/30/2018 at 0729 hr FINDINGS: LUNGS: The size of the left pneumothorax is smaller now than before measurements of approximately 5 mm the left apical pleural reflection with the left rib cage are now present contrast to a prior 1.8 cm spacing here. Interval insertion of a left inferolateral small caliber chest tube tip estimated to be left inferolateral pleural space per this single frontal view The coalescent airspace opacity pathology in the left mid and lower lung zone shows interval improved aeration-in large part improved aeration from prior atelectatic changes is inferred. An element of concomitant coalescent patchy infiltrate with or bronchiectasis changes and residual atelectasis here are compatible with this appearance. A small left pneumo mediastinum is re-noted. Study is rotated towards the right no true tension pneumothorax is believed present. The scarring at each lung apex right greater than left is similar in appearance apical and right apical blebs are also noted. PLEURA: Size of left pleural effusion is much less. Size of the left pneumothorax much less. CARDIOVASCULAR: No aortic atherosclerotic calcification present. Heart size probably top-normal. OSSEOUS STRUCTURES: Lateral shoulder arthrosis. VISUALIZED UPPER ABDOMEN: Normal. OTHER FINDINGS: None. IMPRESSION: Interval expansion of left lung interval diminution of prior left pneumothorax small residual pneumothorax persists. Interval insertion of left chest tube. Minimal left pneumomediastinum-appearance hree noted. Interval improvement improved aeration in the blending coalescent airspace process in the left mid to lower lung zone. Other findings as above.
[2018-11-30] MEDS: Pantoprazole 40 mg EC Tab PO SCH (13:57)
--- NOTE | 2018-11-30 14:33 | CP.PCM.PN ---
Subjective - Date & Time of Evaluation Date of Evaluation: 11/30/18 Time of Evaluation: 14:30 - Subjective Subjective: PGY-1 Medicine Progress Note for Dr. Montoya's service Patient s/e at bedside during TRANSITIONS RN CARE COORDINATOR. Patient was acutely sob and placed on bipap. Limited ROS 2/2 bipap. Refer to rapid note. Objective - Vital Signs/Intake and Output Vital Signs (last 24 hours): Temp Pulse Resp BP Pulse Ox 98.2 F 111 H 23 118/52 L 100 11/30/18 13:45 11/30/18 14:25 11/30/18 13:45 11/30/18 13:45 11/30/18 11:33 Intake and Output: 11/30/18 11/30/18 06:59 18:59 Intake Total 1803 650 Output Total 500 800 Balance 1303 -150 - Medications Medications: Current Medications Acetaminophen (Tylenol 325mg Tab) 650 mg PO Q6 PRN PRN Reason: Fever >100.4 F Last Admin: 11/30/18 00:31 Dose: 650 mg Sodium Chloride (Sodium Chloride 0.9%) 1,000 mls @ 100 mls/hr IV .Q10H ELDA Last Admin: 11/30/18 05:48 Dose: Not Given Piperacillin Sod/Tazobactam Sod (Zosyn 3.375 Gm Iv Premix) 3.375 gm in 50 mls @ 100 mls/hr IVPB Q6 ELDA; Protocol Last Admin: 11/30/18 13:58 Dose: 100 mls/hr Vancomycin/Sodium Chloride (Vancomycin 1 Gm/Ns 200 Ml) 1 gm in 200 mls @ 133 mls/hr IVPB DAILY ELDA; Protocol Stop: 12/05/18 10:01 Pantoprazole Sodium (Protonix Ec Tab) 40 mg PO DAILY ELDA Last Admin: 11/30/18 13:57 Dose: Not Given Tamsulosin HCl (Flomax) 0.4 mg PO BID ELDA Last Admin: 11/30/18 13:57 Dose: Not Given - Labs Labs: 11/30/18 03:50 11/29/18 18:00 PT 14.3 SECONDS (9.7-12.2) H 11/29/18 18:00 INR 1.3 11/29/18 18:00 APTT 34 SECONDS (21-34) 01/21/19 18:00 - Constitutional Appears: In Acute Distress - Head Exam Head Exam: NORMAL INSPECTION, NORMOCEPHALIC - Eye Exam Eye Exam: EOMI, Normal appearance. absent: Nystagmus, Scleral icterus - ENT Exam ENT Exam: Mucous Membranes Dry - Respiratory Exam Respiratory Exam: Rhonchi, Respiratory Distress. absent: Rales, Wheezes Additional comments: on bipap chest tube placed in left upper posterior axillary line - Cardiovascular Exam Cardiovascular Exam: REGULAR RHYTHM, +S1, +S2 - GI/Abdominal Exam GI & Abdominal Exam: Soft, Normal Bowel Sounds. absent: Distended, Firm, Guarding, Rigid, Tenderness - Extremities Exam Extremities Exam: Normal Inspection. absent: Calf Tenderness, Pedal Edema - Back Exam Additional comments: chest tube in place - Neurological Exam Neurological Exam: Alert, Awake, Oriented x3 - Psychiatric Exam Psychiatric exam: Normal Affect, Normal Mood - Skin Skin Exam: Dry, Intact, Pallor Assessment and Plan - Assessment and Plan (Free Text) Assessment: Patient is a 78 yo male w/ PMH of AML, HTN, BPH admitted to hospital for fevers and weakness. Found on CXR to have pnuemonia. TRANSITIONS RN CARE COORDINATOR was called on 11/30. Patient was found to have developing pneumothroax. Admitted to ICU and chest tube placed. Sepsis On admission: tachycardic, elevated lactate, fever CXR 11-29: left lower and middle infiltrate noted EKG: sinus tachy @124 bpm, LBBB (old) Tylenol PRN for fevers serology: flu negative Vanc 1gm IVPB daily Zosyn 3.375gm IVPB q6 ABG not concernign U cx and bcx pending NS @100cc/hr Pneumothorax ICU consulted: Dr. 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 Bobby pt to receive 2 units pRBCs, 1 unit PLTs tonight (further management as per ICU) Goal Hb as close to 10 as possible, manual PLT count above 20 neutropenic precautions HTN held in setting of hypotension BPH Flomax 0.4 mg PO BID PPx, Diet, Disposition DVT ppx: scds, chemical anticoagulation CI due to thrombocytopenia GI ppx: protonix 40 mg PO daily Diet: HHD Case discussed with Dr. Lindsay Garcia, PGY-1
[2018-11-30] MEDS: Vancomycin 1 gm/NS 200 ml 1 GM/200 ML BAG IVPB SCH (17:50)
--- NOTE | 2018-11-30 20:12 | PCM.RRT ---
<Rachid Venegas - Last Filed: 12/01/18 06:41> KNOT TIER Nurses Assessment - Situation Date: 11/30/18 Time KNOT TIER was called: 06:33 KNOT TIER Responder Arrival Time:: 06:36 KNOT TIER Location:: Med/Surg Room Number: 663A KNOT TIER Reason for Call: Respiratory Distress KNOT TIER Called By: RN - IV IV Inserted during KNOT TIER?: Yes - Respiratory KNOT TIER Delivery Method: BiPAP @%, Non Rebreather @% Received Nebulizer Treatments: No Was the Patient Ventilated with Bag/Mask 100% O2?: Yes Secretions Suctioned?: No Was the Patient Intubated?: No Was the Patient Placed on a Ventilator?: No - Ventilator Settings FIO2 (% Oxygen): 50 - Medication Medications Administered During KNOT TIER: Lasix 40mg - Diagnostic Test Ordered EKG: Yes Chest X-Ray: Yes CT Scan: No - Stat Labs Ordered KNOT TIER Stat Labs Ordered: ABG CPR started during KNOT TIER?: No - Vital Signs Vital Signs: Rapid Response Vital Sign Blood Pressure 152/78 Pulse Rate 143 Respiratory Rate 24 Temperature 102.8 F Oxygen Saturation 88 - Sepsis Screen Part 1 Sepsis Screen Part 1: Temperature over 100.6F - Time KNOT TIER Ended Time KNOT TIER Ended: 07:10 - Vital Signs at end of KNOT TIER Vital Signs at end of KNOT TIER: Rapid Response End Vital Sign Blood Pressure 106/64 Pulse Rate 134 Respiratory Rate 22 Temperature 99.8 F O2 Sat by Pulse Oximetry 100 - Recommendations Notifications: Family or Designated Caregiver - Respiratory Oxygen Delivery Method: BiPAP @%, Non Rebreather @% - Constitutional Appears: In Acute Distress - Head Head Exam: ATRAUMATIC, NORMAL INSPECTION, NORMOCEPHALIC - Eyes Eye Exam: EOMI, Normal appearance, PERRL - Respiratory Exam Respiratory Exam: Respiratory Distress - Cardiovascular Exam Cardiovascular Exam: Tachycardia, +S1, +S2 - GI/Abdominal Exam GI & Abdominal Exam: Soft, Normal Bowel Sounds. absent: Distended, Firm, Gua rding, Rigid, Tenderness, Rebound - Neurological Exam Neurological Exam: Alert, Awake, Oriented x3 - Extremities Exam Extremities Exam: Full ROM, Normal Capillary Refill, Normal Inspection Plan - Assessment of Findings&Treatment Plan House Doctor Note KNOT TIER called for respiratory distress, desaturation while receiving 2nd pRBC transfusion -Patient was placed on Bipap. Lasix 40 IVP administered -EKG -CXR -ABG x2 -CXR revealed pneumothorax, increased in size on repeat imaging -Pt transferred to ICU for chest tube <RafiCristiano P - Last Filed: 12/01/18 08:10> KNOT TIER Nurses Assessment - Vital Signs Vital Signs: Rapid Response Vital Sign Blood Pressure 152/78 Pulse Rate 143 Respiratory Rate 24 Temperature 102.8 F Oxygen Saturation 88 - Vital Signs at end of KNOT TIER Vital Signs at end of KNOT TIER: Rapid Response End Vital Sign Blood Pressure 106/64 Pulse Rate 134 Respiratory Rate 22 Temperature 99.8 F O2 Sat by Pulse Oximetry 100 Attending/Attestation - Attestation I have personally seen and examined this patient.: Yes I have fully participated in the care of the patient.: Yes I have reviewed all pertinent clinical information, including history, physical exam and plan: Yes Notes (Text): 12/01/18 08:08 SOB with fever, tachycardia, new developed pneumothorax, pna, pancytopenia, clinically not tension pneumothorax transferred to ICU clinically needing 100% fio2 for possible chest tube/vent support, continue abx. D/w Dr. Thurston ICU attending at bedside.
[2018-11-30 20:27] LABS: HEMOGLOBIN 8.9 g/dL (12.0-18.0); MEAN CELL VOLUME 89.2 fL (80.0-94.0); MEAN CORPUSCULAR HEMOGLOBIN 29.2 pg (27.0-31.0); MEAN CORPUSCULAR HGB CONC 32.7 g/dL (33.0-37.0); MEAN PLATELET VOLUME 8.3 fL (7.2-11.7); RBC 3.05 Mil/uL (4.40-5.90); RED CELL DISTRIBUTION WIDTH 15.4 % (11.5-14.5)
[2018-11-30 20:30] LABS: PLATELET COUNT 14 K/uL (130-400); WHITE BLOOD COUNT 0.6 K/uL (4.8-10.8)
[2018-11-30 21:44] LABS: LYMPH # 0.2 K/uL (1.0-4.3); LYMPH % 47.9 % (20.0-40.0); MONO # 0.2 K/uL (0.0-0.8); MONO % 49.9 % (0.0-10.0); NEUT % 2.2 % (50.0-75.0)
[2018-11-30 21:45] LABS: LYMPHOCYTE 54 % (20-40); MONOCYTE 44 % (0-10); NEUTROPHIL 2 % (50-75); PLATELET ESTIMATE MARKEDLY DECREASED (NORMAL); TOTAL CELLS COUNTED 100
[2018-11-30 21:46] LABS: HYPOCHROMIC SLIGHT; MICROCYTOSIS SLIGHT; OVALOCYTES SLIGHT; TEARDROP CELLS SLIGHT
[2018-12-01] MEDS: Sodium Chloride 0.9% 1,000 ML IV SCH ×3 (02:30→12:38)
[2018-12-01] MEDS: Piperacill/Tazo 3.375gm in Dex 3.375 GM/50 ML BAG IVPB SCH ×4 (05:40→23:55)
[2018-12-01 05:58] LABS: HEMOGLOBIN 8.2 g/dL (12.0-18.0); LYMPH # 0.2 K/uL (1.0-4.3); MEAN CELL VOLUME 89.3 fL (80.0-94.0); MEAN CORPUSCULAR HEMOGLOBIN 30.1 pg (27.0-31.0); MEAN CORPUSCULAR HGB CONC 33.7 g/dL (33.0-37.0); MEAN PLATELET VOLUME 9.5 fL (7.2-11.7); MONO # 0.2 K/uL (0.0-0.8); NRBC % 1.5 % (0.0-2.0); RBC 2.72 Mil/uL (4.40-5.90); RED CELL DISTRIBUTION WIDTH 14.7 % (11.5-14.5)
[2018-12-01 06:18] LABS: ALB/GLOB RATIO 1.1 (1.0-2.1); ALBUMIN 2.7 g/dL (3.5-5.0); ALT/SGPT 16 U/L (21-72); AST/SGOT 12 U/L (17-59); BLOOD UREA NITROGEN 31 mg/dL (9-20); CALCIUM 7.5 mg/dl (8.6-10.4); GFR NON-AFRICAN AMERICAN 59
[2018-12-01 06:22] LABS: PLATELET COUNT 10 K/uL (130-400); WHITE BLOOD COUNT 0.5 K/uL (4.8-10.8)
[2018-12-01 08:15] LABS: PLATELET COUNT MANUAL 8 K/uL (130-400)
[2018-12-01 08:40] LABS: NEUTROPHIL 1 % (50-75); NUCLEATED RED BLOOD CELL 1 % (0-0); TOTAL CELLS COUNTED 100
[2018-12-01 08:41] LABS: LYMPHOCYTE 59 % (20-40); MONOCYTE 40 % (0-10); PLATELET ESTIMATE MARKEDLY DECREASED (NORMAL)
[2018-12-01 08:42] LABS: OVALOCYTES SLIGHT
--- NOTE | 2018-12-01 09:49 | RAD ---
Date of service: 12/01/2018 HISTORY: Left chest tube, pneumothorax COMPARISON: Portable chest 11/30/2018. FINDINGS: LUNGS: Left pleural catheter is reiterated with approximate 2.9 cm a catheter within the left pleural space. The pneumothorax has increased mildly at both the left apex and base as well as medially suggesting, suggesting moderate pneumothorax. At the left apex, the diameter pneumothorax measures 1.9 cm, as an example. Trace left pleural effusion evident. No right pneumothorax or effusion with stable atelectasis at the mid to inferior left lung zone with biapical fibrosis reiterated. PLEURA: As above. CARDIOVASCULAR: Calcific atherosclerotic changes are seen related to the thoracic aorta. Stable cardiac appearance. No pulmonary vascular congestion appreciated. No pulmonary vascular congestion. OSSEOUS STRUCTURES: No significant abnormalities. VISUALIZED UPPER ABDOMEN: Normal. OTHER FINDINGS: None. IMPRESSION: Right pneumothorax now [id number] overall volume, increased in the interval with left pleural catheter again noted in position, 2.9 cm within the left pleural space.. Trace left pleural effusion evident. Further clinical correlation recommended. A potential obstruction at the catheter or catheter adjustment/replacement. Atelectasis favored over infiltrate unchanged at the mid to inferior left lung zone.
[2018-12-01] MEDS ORDERED: Vancomycin 1 gm/NS 200 ml 1 GM/200 ML BAG IVPB SCH (10:00)
[2018-12-01] MEDS: Pantoprazole 40 mg EC Tab PO SCH (10:17)
--- NOTE | 2018-12-01 10:43 | CP.CCUPN ---
<Darell Lauren - Last Filed: 12/01/18 13:34> CCU Subjective - Physician Review Subjective (Free Text): PGY-[address] Thurston Service Patient is seen and examined at bedside. Patient states feeling better, at bedside with him. Patient denies chest pain, shortness of breath, fever, chills, or abdominal pain. Patient has not been able to move out of bed yet. Patient had breakfast in am, but as per nurse, continues to have poor appetite. Chest tube let side in place, draining about 450 cc of serosanguinous fluids. No other complaints at this time Critical Care Time Spent (in minutes): 35 CCU Objective - Vital Signs / Intake & Output Intake and Output (Last 8hrs): Intake & Output 11/30/18 12/01/18 12/01/18 22:59 06:59 14:59 Intake Total 1000 900 Output Total 730 490 Balance 270 410 Weight 102 lb 3 oz Intake: Intake, IV Amount 150 750 Left Upper arm 150 750 Oral 200 150 Blood Product 650 Red Blood Cells Cpd As1 325 Lr Unit [id number] Output: Chest Tube Drainage 80 40 Left Lateral Chest 80 40 Urine 650 450 Urine, Voided 650 450 Other: # Bowel Movements 1 0 - Physical Exam Head: Positive for: Atraumatic, Normocephalic Pupils: Positive for: PERRL Extroacular Muscles: Positive for: EOMI Conjunctiva: Positive for: Normal Mouth: Positive for: Dry, Other (on Bipap ) Respiratory/Chest: Positive for: Clear to Auscultation, Other (left chest tube, clean, collecting about 450 cc fluid ). Negative for: Respiratory Distress, Accessory Muscle Use Cardiovascular: Positive for: Regular Rate and Rhythm, Normal S1, S2 Abdomen: Positive for: Normal Bowel Sounds. Negative for: Tenderness, Distention Upper Extremity: Positive for: Normal Inspection. Negative for: Edema Lower Extremity: Positive for: Normal Inspection. Negative for: Edema Neurological: Positive for: CN II-XII Intact, Speech Normal Skin: Positive for: Warm, Dry, Normal Color Psychiatric: Positive for: Alert, Oriented x 3, Normal Insight, Normal C oncentration, Normal Affect, Normal Mood - Medications Active Medications: Active Medications Generic Name Dose Route Start Last Admin Trade Name Freq PRN Reason Stop Dose Admin Acetaminophen 650 mg 11/29/18 19:43 11/30/18 15:34 Tylenol 325mg Tab PO 650 mg Q6 PRN Administration Fever >100.4 F Sodium Chloride 1,000 mls @ 100 mls/hr 11/29/18 19:45 12/01/18 10:18 Sodium Chloride 0.9% IV 100 mls/hr .Q10H ELDA Administration Piperacillin Sod/Tazobactam Sod 3.375 gm in 50 mls @ 100 mls/hr 11/30/18 00:00 12/01/18 05:40 Zosyn 3.375 Gm Iv Premix IVPB 100 mls/hr Q6 ELDA Administration Protocol Vancomycin/Sodium Chloride 1 gm in 200 mls @ 133 mls/hr 11/30/18 17:00 11/30/18 17:50 Vancomycin 1 Gm/Ns 200 Ml IVPB 12/05/18 17:01 133 mls/hr DAILY@1700 ELDA Administration Protocol Pantoprazole Sodium 40 mg 11/30/18 10:00 12/01/18 10:17 Protonix Ec Tab PO 40 mg DAILY ELDA Administration Tamsulosin HCl 0.4 mg 11/30/18 10:00 12/01/18 10:17 Flomax PO 0.4 mg BID ELDA Administration - Patient Studies Lab Studies: Microbiology Studies 11/30/18 10:00 Blood Culture - Preliminary Blood NO GROWTH AFTER 24 HOURS Gram Stain - Final 11/29/18 18:00 Blood Culture - Preliminary Blood NO GROWTH AFTER 24 HOURS 11/29/18 17:30 Blood Culture - Preliminary Blood NO GROWTH AFTER 24 HOURS Lab Studies 12/01/18 12/01/18 11/30/18 Range/Units 05:49 05:49 20:09 WBC 0.5 L* 0.6 L* D (4.8-10.8) K/uL RBC 2.72 L 3.05 L (4.40-5.90) Mil/uL Hgb 8.2 L 8.9 L D (12.0-18.0) g/dL Hct 24.3 L 27.2 L (35.0-51.0) % MCV 89.3 89.2 (80.0-94.0) fL MCH 30.1 29.2 (27.0-31.0) pg MCHC 33.7 32.7 L (33.0-37.0) g/dL RDW 14.7 H 15.4 H (11.5-14.5) % Plt Count 10 L* 14 L* D (130-400) K/uL Manual Plt Count 8 L* (130-400) K/uL MPV 9.5 8.3 (7.2-11.7) fL Neut % (Auto) 2.0 L 2.2 L (50.0-75.0) % Lymph % (Auto) 51.0 H 47.9 H (20.0-40.0) % [place] % (Auto) 47.0 H 49.9 H (0.0-10.0) % Eos % (Auto) 0.0 0.0 (0.0-4.0) % Baso % (Auto) 0.0 0.0 (0.0-2.0) % Neut # (Auto) 0.0 L 0.0 L (1.8-7.0) K/uL Lymph # (Auto) 0.2 L 0.2 L (1.0-4.3) K/uL [place] # (Auto) 0.2 0.2 (0.0-0.8) K/uL Eos # (Auto) 0.0 0.0 (0.0-0.7) K/uL Baso # (Auto) 0.0 0.0 (0.0-0.2) K/uL Neutrophils % (Manual) 1 L 2 L (50-75) % Lymphocytes % (Manual) 59 H 54 H (20-40) % Monocytes % (Manual) 40 H 44 H (0-10) % Nucleated RBC % 1 H (0-0) % Platelet Estimate Markedly decreased L Markedly decreased L (NORMAL) Hypochromasia (manual) Slight Microcytosis (manual) Slight Tear Drop Cells Slight Ovalocytes Slight Slight Smear Path Review Sodium 138 (132-148) mmol/L Potassium 3.7 (3.6-5.2) mmol/L Chloride 109 H (98-107) mmol/L Carbon Dioxide 22 (22-30) mmol/L Anion Gap 10 (10-20) BUN 31 H (9-20) mg/dL Creatinine 1.2 (0.8-1.5) mg/dL Est GFR ( Amer) > 60 Est GFR (Non-Af Amer) 59 Random Glucose 103 (75-110) mg/dL Lactic Acid (0.7-2.1) mmol/L Calcium 7.5 L (8.6-10.4) mg/dl Phosphorus 2.6 (2.5-4.5) mg/dL Magnesium 1.7 (1.6-2.3) mg/dL Total Bilirubin 2.7 H (0.2-1.3) mg/dL Direct Bilirubin (0.0-0.4) mg/dL AST 12 L D (17-59) U/L ALT 16 L D (21-72) U/L Alkaline Phosphatase 55 (38-126) U/L Total Protein 5.2 L (6.3-8.3) g/dL Albumin 2.7 L D (3.5-5.0) g/dL Globulin 2.5 (2.2-3.9) gm/dL Albumin/Globulin Ratio 1.1 (1.0-2.1) Blood Type Antibody Screen Pathologist Comment K 11/30/18 11/30/18 11/30/18 Range/Units 11:27 09:43 07:50 WBC (4.8-10.8) K/uL RBC (4.40-5.90) Mil/uL Hgb (12.0-18.0) g/dL Hct (35.0-51.0) % MCV (80.0-94.0) fL MCH (27.0-31.0) pg MCHC (33.0-37.0) g/dL RDW (11.5-14.5) % Plt Count (130-400) K/uL Manual Plt Count (130-400) K/uL MPV (7.2-11.7) fL Neut % (Auto) (50.0-75.0) % Lymph % (Auto) (20.0-40.0) % [place] % (Auto) (0.0-10.0) % Eos % (Auto) (0.0-4.0) % Baso % (Auto) (0.0-2.0) % Neut # (Auto) (1.8-7.0) K/uL Lymph # (Auto) (1.0-4.3) K/uL [place] # (Auto) (0.0-0.8) K/uL Eos # (Auto) (0.0-0.7) K/uL Baso # (Auto) (0.0-0.2) K/uL Neutrophils % (Manual) (50-75) % Lymphocytes % (Manual) (20-40) % Monocytes % (Manual) (0-10) % Nucleated RBC % (0-0) % Platelet Estimate (NORMAL) Hypochromasia (manual) Microcytosis (manual) Tear Drop Cells Ovalocytes Smear Path Review Sodium (132-148) mmol/L Potassium (3.6-5.2) mmol/L Chloride (98-107) mmol/L Carbon Dioxide (22-30) mmol/L Anion Gap (10-20) BUN (9-20) mg/dL Creatinine (0.8-1.5) mg/dL Est GFR ( Amer) Est GFR (Non-Af Amer) Random Glucose (75-110) mg/dL Lactic Acid 2.0 (0.7-2.1) mmol/L Calcium (8.6-10.4) mg/dl Phosphorus (2.5-4.5) mg/dL Magnesium (1.6-2.3) mg/dL Total Bilirubin 2.6 H (0.2-1.3) mg/dL Direct Bilirubin 0.9 H (0.0-0.4) mg/dL AST (17-59) U/L ALT (21-72) U/L Alkaline Phosphatase (38-126) U/L Total Protein (6.3-8.3) g/dL Albumin (3.5-5.0) g/dL Globulin (2.2-3.9) gm/dL Albumin/Globulin Ratio (1.0-2.1) Blood Type Antibody Screen Pathologist Comment [facility] See note 11/29/18 Range/Units 19:18 WBC (4.8-10.8) K/uL RBC (4.40-5.90) Mil/uL Hgb (12.0-18.0) g/dL Hct (35.0-51.0) % MCV (80.0-94.0) fL MCH (27.0-31.0) pg MCHC (33.0-37.0) g/dL RDW (11.5-14.5) % Plt Count (130-400) K/uL Manual Plt Count (130-400) K/uL MPV (7.2-11.7) fL Neut % (Auto) (50.0-75.0) % Lymph % (Auto) (20.0-40.0) % [place] % (Auto) (0.0-10.0) % Eos % (Auto) (0.0-4.0) % Baso % (Auto) (0.0-2.0) % Neut # (Auto) (1.8-7.0) K/uL Lymph # (Auto) (1.0-4.3) K/uL [place] # (Auto) (0.0-0.8) K/uL Eos # (Auto) (0.0-0.7) K/uL Baso # (Auto) (0.0-0.2) K/uL Neutrophils % (Manual) (50-75) % Lymphocytes % (Manual) (20-40) % Monocytes % (Manual) (0-10) % Nucleated RBC % (0-0) % Platelet Estimate (NORMAL) Hypochromasia (manual) Microcytosis (manual) Tear Drop Cells Ovalocytes Smear Path Review Sodium (132-148) mmol/L Potassium (3.6-5.2) mmol/L Chloride (98-107) mmol/L Carbon Dioxide (22-30) mmol/L Anion Gap (10-20) BUN (9-20) mg/dL Creatinine (0.8-1.5) mg/dL Est GFR ( Amer) Est GFR (Non-Af Amer) Random Glucose (75-110) mg/dL Lactic Acid (0.7-2.1) mmol/L Calcium (8.6-10.4) mg/dl Phosphorus (2.5-4.5) mg/dL Magnesium (1.6-2.3) mg/dL Total Bilirubin (0.2-1.3) mg/dL Direct Bilirubin (0.0-0.4) mg/dL AST (17-59) U/L ALT (21-72) U/L Alkaline Phosphatase (38-126) U/L Total Protein (6.3-8.3) g/dL Albumin (3.5-5.0) g/dL Globulin (2.2-3.9) gm/dL Albumin/Globulin Ratio (1.0-2.1) Blood Type B POSITIVE Antibody Screen Negative Pathologist Comment [facility] Laboratory Results - last 24 hr 11/29/18 11/30/18 11/30/18 19:18 07:50 09:43 WBC RBC Hgb Hct MCV MCH MCHC RDW Plt Count Manual Plt Count MPV Neut % (Auto) Lymph % (Auto) [place] % (Auto) Eos % (Auto) Baso % (Auto) Neut # (Auto) Lymph # (Auto) [place] # (Auto) Eos # (Auto) Baso # (Auto) Neutrophils % (Manual) Lymphocytes % (Manual) Monocytes % (Manual) Nucleated RBC % Platelet Estimate Hypochromasia (manual) Microcytosis (manual) Tear Drop Cells Ovalocytes Smear Path Review Sodium Potassium Chloride Carbon Dioxide Anion Gap BUN Creatinine Est GFR ( Amer) Est GFR (Non-Af Amer) Random Glucose Lactic Acid Calcium Phosphorus Magnesium Total Bilirubin 2.6 H Direct Bilirubin 0.9 H AST ALT Alkaline Phosphatase Total Protein Albumin Globulin Albumin/Globulin Ratio Blood Type B POSITIVE Antibody Screen Negative Pathologist Comment [facility] See note 11/30/18 11/30/18 12/01/18 11:27 20:09 05:49 WBC 0.6 L* D 0.5 L* RBC 3.05 L 2.72 L Hgb 8.9 L D 8.2 L Hct 27.2 L 24.3 L MCV 89.2 89.3 MCH 29.2 30.1 MCHC 32.7 L 33.7 RDW 15.4 H 14.7 H Plt Count 14 L* D 10 L* Manual Plt Count 8 L* MPV 8.3 9.5 Neut % (Auto) 2.2 L 2.0 L Lymph % (Auto) 47.9 H 51.0 H [place] % (Auto) 49.9 H 47.0 H Eos % (Auto) 0.0 0.0 Baso % (Auto) 0.0 0.0 Neut # (Auto) 0.0 L 0.0 L Lymph # (Auto) 0.2 L 0.2 L [place] # (Auto) 0.2 0.2 Eos # (Auto) 0.0 0.0 Baso # (Auto) 0.0 0.0 Neutrophils % (Manual) 2 L 1 L Lymphocytes % (Manual) 54 H 59 H Monocytes % (Manual) 44 H 40 H Nucleated RBC % 1 H Platelet Estimate Markedly decreased L Markedly decreased L Hypochromasia (manual) Slight Microcytosis (manual) Slight Tear Drop Cells Slight Ovalocytes Slight Slight Smear Path Review Sodium Potassium Chloride Carbon Dioxide Anion Gap BUN Creatinine Est GFR ( Amer) Est GFR (Non-Af Amer) Random Glucose Lactic Acid 2.0 Calcium Phosphorus Magnesium Total Bilirubin Direct Bilirubin AST ALT Alkaline Phosphatase Total Protein Albumin Globulin Albumin/Globulin Ratio Blood Type Antibody Screen Pathologist Comment K 12/01/18 05:49 WBC RBC Hgb Hct MCV MCH MCHC RDW Plt Count Manual Plt Count MPV Neut % (Auto) Lymph % (Auto) [place] % (Auto) Eos % (Auto) Baso % (Auto) Neut # (Auto) Lymph # (Auto) [place] # (Auto) Eos # (Auto) Baso # (Auto) Neutrophils % (Manual) Lymphocytes % (Manual) Monocytes % (Manual) Nucleated RBC % Platelet Estimate Hypochromasia (manual) Microcytosis (manual) Tear Drop Cells Ovalocytes Smear Path Review Sodium 138 Potassium 3.7 Chloride 109 H Carbon Dioxide 22 Anion Gap 10 BUN 31 H Creatinine 1.2 Est GFR ( Amer) > 60 Est GFR (Non-Af Amer) 59 Random Glucose 103 Lactic Acid Calcium 7.5 L Phosphorus 2.6 Magnesium 1.7 Total Bilirubin 2.7 H Direct Bilirubin AST 12 L D ALT 16 L D Alkaline Phosphatase 55 Total Protein 5.2 L Albumin 2.7 L D Globulin 2.5 Albumin/Globulin Ratio 1.1 Blood Type Antibody Screen Pathologist Comment [facility] Radiology Impressions: Radiology Impressions Chest X-Ray 11/30/18 06:51 IMPRESSION: Interval increasing left pneumothorax as detailed above. No gross tension pneumothorax appreciated. Please note the subsequent chest x-ray report. The prior chest x-ray demonstration of pneumothorax had been called in to the ICU nurse taking care of the patient Chest X-Ray 11/30/18 09:22 IMPRESSION: Interval expansion of left lung interval diminution of prior left pneumothorax small residual pneumothorax persists. Interval insertion of left chest tube. Minimal left pneumomediastinum-appearance hree noted. Interval improvement improved aeration in the blending coalescent airspace process in the left mid to lower lung zone. Other findings as above. Chest X-Ray 12/01/18 09:07 IMPRESSION: Right pneumothorax now [id number] overall volume, increased in the interval with left pleural catheter again noted in position, 2.9 cm within the left pleural space.. Trace left pleural effusion evident. Further clinical correlation recommended. A potential obstruction at the catheter or catheter adjustment/replacement. Atelectasis favored over infiltrate unchanged at the mid to inferior left lung zone. 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 Neuro AAOx3 Cardio EKG: sinus tachy @124 bpm, LBBB (old) Hypotensive - continue to monitor continue to hold HTN meds for now Pulm SOB, desaturating in floor - LACTATION NURSE called CXray on admission - Left mid and lower lung infiltrates repeat Cxray - left Pneumothorax and left pneumomediastinum on left upper lobe. no tension Pneumothorax 12/01 am chest Xray - Rt Pneumothorax mild to mod overall volume, Trace left pleural effusion evident Pig tail insertion, placed left side of chest d/c bipap - will place 100% O2 nonrebreather mask continue to monitor vitals GI HHD supplement - ensure dietitian consult Protonix Renal BUN/Cr stable hx of BPH - cont home flomax Heme/Onc Platelets today dropped to 10 (manual count 8) from 24 - 2 units of platelets ordered Hb/Hct8.2/24.3 - transfuse as needed Dr Bobby - Heme/Onc - Goal of Hb of 10, Plts of 20 - f/u recs Recheck CBC after platelets ID Afebrile, HR low 100s WBC 0.4 2/2 hx of AML Blood, Urine cx - no growth 24 hours Vanc and Zosyn tylenol PRN continue monitoring Vitals repeat lactate levels cont NS @100 cc f/u am labs PPX DVT: SCDS, no chemical anticoagulation indicated due to thrombocytopeia GI - Protonix palliative care consult - goals of care Plan discussed with Dr Bertrand Lauren, PGY-1 - Date & Time Date: 12/01/18 Time: 09:00 <Narendra Thurston - Last Filed: 12/01/18 16:57> CCU Subjective - Physician Review Critical Care Time Spent (in minutes): 50 CCU Objective - Vital Signs / Intake & Output Vital Signs (Last 4 hours): Vital Signs Temp Pulse Resp BP Pulse Ox 12/01/18 16:00 98.6 F 110 H 30 H 91 L 12/01/18 15:49 105 H 20 94/38 L 99 12/01/18 15:15 102 F H 12/01/18 15:00 107 H 28 H 100 12/01/18 14:49 108 H 30 H 111/49 L 100 12/01/18 14:15 101.4 F H 12/01/18 14:00 98.7 F 109 H 25 H 100 12/01/18 13:49 107 H 26 H 104/47 L 100 12/01/18 13:00 111 H 31 H 100 Intake and Output (Last 8hrs): Intake & Output 12/01/18 12/01/18 12/01/18 06:59 14:59 22:59 Intake Total 900 1050 250 Output Total 490 200 100 Balance 410 850 150 Weight 102 lb 3 oz Intake: Intake, IV Amount 750 800 200 Left Upper arm 750 800 200 Oral 150 250 50 Output: Chest Tube Drainage 40 Left Lateral Chest 40 Urine 450 200 100 Urine, Voided 450 200 100 Other: # Bowel Movements 0 - Medications Active Medications: Active Medications Generic Name Dose Route Start Last Admin Trade Name Freq PRN Reason Stop Dose Admin Acetaminophen 650 mg 11/29/18 19:43 12/01/18 14:30 Tylenol 325mg Tab PO 650 mg Q6 PRN Administration Fever >100.4 F Sodium Chloride 1,000 mls @ 100 mls/hr 11/29/18 19:45 12/01/18 12:38 Sodium Chloride 0.9% IV Not Given .Q10H ELDA Piperacillin Sod/Tazobactam Sod 3.375 gm in 50 mls @ 100 mls/hr 11/30/18 00:00 12/01/18 12:38 Zosyn 3.375 Gm Iv Premix IVPB 100 mls/hr Q6 ELDA Administration Protocol Vancomycin/Sodium Chloride 1 gm in 200 mls @ 133 mls/hr 11/30/18 17:00 11/30/18 17:50 Vancomycin 1 Gm/Ns 200 Ml IVPB 12/05/18 17:01 133 mls/hr DAILY@1700 ELDA Administration Protocol Pantoprazole Sodium 40 mg 11/30/18 10:00 12/01/18 10:17 Protonix Ec Tab PO 40 mg DAILY ELDA Administration Tamsulosin HCl 0.4 mg 11/30/18 10:00 12/01/18 10:17 Flomax PO 0.4 mg BID ELDA Administration - Patient Studies Lab Studies: Microbiology Studies 11/30/18 09:31 MRSA Culture (Admit) - Final Naris MRSA NOT DETECTED 11/30/18 10:00 Blood Culture - Preliminary Blood NO GROWTH AFTER 24 HOURS Gram Stain - Final 11/29/18 18:00 Blood Culture - Preliminary Blood NO GROWTH AFTER 24 HOURS 11/29/18 17:30 Blood Culture - Preliminary Blood NO GROWTH AFTER 24 HOURS Lab Studies 12/01/18 12/01/18 11/30/18 Range/Units 05:49 05:49 20:09 WBC 0.5 L* 0.6 L* D (4.8-10.8) K/uL RBC 2.72 L 3.05 L (4.40-5.90) Mil/uL Hgb 8.2 L 8.9 L D (12.0-18.0) g/dL Hct 24.3 L 27.2 L (35.0-51.0) % MCV 89.3 89.2 (80.0-94.0) fL MCH 30.1 29.2 (27.0-31.0) pg MCHC 33.7 32.7 L (33.0-37.0) g/dL RDW 14.7 H 15.4 H (11.5-14.5) % Plt Count 10 L* 14 L* D (130-400) K/uL Manual Plt Count 8 L* (130-400) K/uL MPV 9.5 8.3 (7.2-11.7) fL Neut % (Auto) 2.0 L 2.2 L (50.0-75.0) % Lymph % (Auto) 51.0 H 47.9 H (20.0-40.0) % [place] % (Auto) 47.0 H 49.9 H (0.0-10.0) % Eos % (Auto) 0.0 0.0 (0.0-4.0) % Baso % (Auto) 0.0 0.0 (0.0-2.0) % Neut # (Auto) 0.0 L 0.0 L (1.8-7.0) K/uL Lymph # (Auto) 0.2 L 0.2 L (1.0-4.3) K/uL [place] # (Auto) 0.2 0.2 (0.0-0.8) K/uL Eos # (Auto) 0.0 0.0 (0.0-0.7) K/uL Baso # (Auto) 0.0 0.0 (0.0-0.2) K/uL Neutrophils % (Manual) 1 L 2 L (50-75) % Lymphocytes % (Manual) 59 H 54 H (20-40) % Monocytes % (Manual) 40 H 44 H (0-10) % Nucleated RBC % 1 H (0-0) % Platelet Estimate Markedly decreased L Markedly decreased L (NORMAL) Hypochromasia (manual) Slight Microcytosis (manual) Slight Tear Drop Cells Slight Ovalocytes Slight Slight Smear Path Review Sodium 138 (132-148) mmol/L Potassium 3.7 (3.6-5.2) mmol/L Chloride 109 H (98-107) mmol/L Carbon Dioxide 22 (22-30) mmol/L Anion Gap 10 (10-20) BUN 31 H (9-20) mg/dL Creatinine 1.2 (0.8-1.5) mg/dL Est GFR ( Amer) > 60 Est GFR (Non-Af Amer) 59 Random Glucose 103 (75-110) mg/dL Calcium 7.5 L (8.6-10.4) mg/dl Phosphorus 2.6 (2.5-4.5) mg/dL Magnesium 1.7 (1.6-2.3) mg/dL Total Bilirubin 2.7 H (0.2-1.3) mg/dL AST 12 L D (17-59) U/L ALT 16 L D (21-72) U/L Alkaline Phosphatase 55 (38-126) U/L Total Protein 5.2 L (6.3-8.3) g/dL Albumin 2.7 L D (3.5-5.0) g/dL Globulin 2.5 (2.2-3.9) gm/dL Albumin/Globulin Ratio 1.1 (1.0-2.1) Laboratory Results - last 24 hr 11/30/18 12/01/18 12/01/18 20:09 05:49 05:49 WBC 0.6 L* D 0.5 L* RBC 3.05 L 2.72 L Hgb 8.9 L D 8.2 L Hct 27.2 L 24.3 L MCV 89.2 89.3 MCH 29.2 30.1 MCHC 32.7 L 33.7 RDW 15.4 H 14.7 H Plt Count 14 L* D 10 L* Manual Plt Count 8 L* MPV 8.3 9.5 Neut % (Auto) 2.2 L 2.0 L Lymph % (Auto) 47.9 H 51.0 H [place] % (Auto) 49.9 H 47.0 H Eos % (Auto) 0.0 0.0 Baso % (Auto) 0.0 0.0 Neut # (Auto) 0.0 L 0.0 L Lymph # (Auto) 0.2 L 0.2 L [place] # (Auto) 0.2 0.2 Eos # (Auto) 0.0 0.0 Baso # (Auto) 0.0 0.0 Neutrophils % (Manual) 2 L 1 L Lymphocytes % (Manual) 54 H 59 H Monocytes % (Manual) 44 H 40 H Nucleated RBC % 1 H Platelet Estimate Markedly decreased L Markedly decreased L Hypochromasia (manual) Slight Microcytosis (manual) Slight Tear Drop Cells Slight Ovalocytes Slight Slight Smear Path Review Sodium 138 Potassium 3.7 Chloride 109 H Carbon Dioxide 22 Anion Gap 10 BUN 31 H Creatinine 1.2 Est GFR ( Amer) > 60 Est GFR (Non-Af Amer) 59 Random Glucose 103 Calcium 7.5 L Phosphorus 2.6 Magnesium 1.7 Total Bilirubin 2.7 H AST 12 L D ALT 16 L D Alkaline Phosphatase 55 Total Protein 5.2 L Albumin 2.7 L D Globulin 2.5 Albumin/Globulin Ratio 1.1 Radiology Impressions: Radiology Impressions Chest X-Ray 12/01/18 09:07 IMPRESSION: Right pneumothorax now [id number] overall volume, increased in the interval with left pleural catheter again noted in position, 2.9 cm within the left pleural space.. Trace left pleural effusion evident. Further clinical correlation recommended. A potential obstruction at the catheter or catheter adjustment/replacement. Atelectasis favored over infiltrate unchanged at the mid to inferior left lung zone. Critical Care Progress Note - Nutrition Nutrition: Nutrition Category Date Time Status Regular Diet [DIET] Diets 12/01/18 Dinner Active Attending/Attestation - Attestation I have personally seen and examined this patient.: Yes I have fully participated in the care of the patient.: Yes I have reviewed all pertinent clinical information: Yes Notes (Text): 12/01/18 16:56 Patient seen and examined in the intensive care unit. Case discussed with housestaff in the morning rounds. And case discussed with family at length Left catheter in place and draining fluid Persistent small pneumothorax in the left side Patient comfortable in no distress During platelet transfusion developed fever and transfusion reaction workup in progress continue antibiotics Follow-up culture and sensitivity Follow-up CBC and platelet count
[2018-12-01] MEDS: Vancomycin 1 gm/NS 200 ml 1 GM/200 ML BAG IVPB SCH (17:15)
[2018-12-01 18:42] LABS: URINE BILIRUBIN NEGATIVE (NEGATIVE); URINE BLOOD 2+ (NEGATIVE); URINE CLARITY Clear (Clear); URINE COLOR Yellow (YELLOW); URINE GLUCOSE (UA) NORMAL (Normal); URINE LEUKOCYTE ESTERASE NEG Leu/uL (Negative); URINE PROTEIN 1+ mg/dL (NEGATIVE); URINE UROBILINOGEN NORMAL mg/dL (0.2-1.0)
[2018-12-01 20:18] LABS: BILIRUBIN,DIRECT 0.9 mg/dL (0.0-0.4)
[2018-12-01] MEDS ORDERED: DiphenhydrAMINE 50 mg/ml Inj IVP STA (20:52)
[2018-12-02] MEDS: Sodium Chloride 0.9% 1,000 ML IV SCH ×3 (03:07→19:33)
[2018-12-02] MEDS: Piperacill/Tazo 3.375gm in Dex 3.375 GM/50 ML BAG IVPB SCH ×3 (05:08→19:33)
[2018-12-02 06:06] LABS: MONO # 0.1 K/uL (0.0-0.8)
[2018-12-02 06:24] LABS: ALBUMIN 2.6 g/dL (3.5-5.0); ALT/SGPT 18 U/L (21-72); AST/SGOT 10 U/L (17-59); BLOOD UREA NITROGEN 27 mg/dL (9-20); CALCIUM 7.7 mg/dl (8.6-10.4); GFR NON-AFRICAN AMERICAN > 60; HEMOGLOBIN 7.7 g/dL (12.0-18.0); LYMPH % 30.3 % (20.0-40.0); MEAN CELL VOLUME 90.6 fL (80.0-94.0); MEAN CORPUSCULAR HEMOGLOBIN 29.3 pg (27.0-31.0); MEAN CORPUSCULAR HGB CONC 32.3 g/dL (33.0-37.0); MEAN PLATELET VOLUME 8.9 fL (7.2-11.7); MONO % 63.7 % (0.0-10.0); NRBC % 3.9 % (0.0-2.0); RBC 2.63 Mil/uL (4.40-5.90); RED CELL DISTRIBUTION WIDTH 15.7 % (11.5-14.5)
[2018-12-02 06:28] LABS: WHITE BLOOD COUNT 0.1 K/uL (4.8-10.8)
--- NOTE | 2018-12-02 09:58 | CP.PCM.CON ---
History of Present Illness - History of Present Illness History of Present Illness: Palliative consult requested by Doctor Sulaiman for goals of care discussion Oswald is a 78 yo male known to me from previous admissions, admitted from home with generalized weakness, poor appetite and left ribs pain. Denied trauma. Upon arrival to ED patient had a fever of 102.4. CXR was significant for Left sided infiltrate. patient received Left chest tube, drains in average of 450 cc. Hb 5.5 on admission, Hct 16.5 and Platelets 24. Patient is post PRBCs and Platelets transfusion.Doctor Diamante is fallowing. Last immunotherapy was last week. Patient supposed to have a chemo Tx. next Thursday. Patient diagnosed with sepsis and Zosyn and Vanco IV initiated. 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 Hx: , lives at home with , ex. smoker, smoked 1 ppd X 20 years Fam. Hx; Noncontributory Review of Systems - Constitutional Constitutional: Fatigue, Weight Loss, Weakness - EENT Eyes: absent: As Per HPI, Blind Spots, Blurred Vision, Change in Vision, Decreased Night Vision, Diplopia, Discharge, Dry Eye, Exophthalmos, Floaters, Irritation, Itchy Eyes, Loss of Peripheral Vision, Pain, Photophobia, Requires Corrective Lenses, Sees Flashes, Spots in Vision, Tunnel Vision, Other Visual Disturbances, Loss of Vision, Other Nose/Mouth/Throat: absent: As Per HPI, Epistaxis, Nasal Congestion, Nasal Discharge, Nasal Obstruction, Nasal Trauma, Nose Pain, Post Nasal Drip, Sinus Pain, Sinus Pressure, Bleeding Gums, Change in Voice, Dental Pain, Dry Mouth, Dysphagia, Halitosis, Hoarsness, Lip Swelling, Mouth Lesions, Mouth Pain, Odynophagia, Sore Throat, Throat Swelling, Tongue Swelling, Facial Pain, Neck Pain, Neck Mass, Other - Cardiovascular Cardiovascular: Pedal Edema - Respiratory Respiratory: Dyspnea on Exertion - Gastrointestinal Gastrointestinal: absent: As Per HPI, Abdominal Pain, Belching, Bloating, Change in Bowel Habits, Change in Stool Character, Coffee Ground Emesis, Constipation, Cramping, Diarrhea, Dyspepsia, Dysphagia, Early Satiety, Excessive Flatus, Fecal Incontinence, Heartburn, Hematemesis, Hematochezia, Loose Stools, Melena, Nausea, Odynophagia, Temesmus, Vomiting, Other - Genitourinary Genitourinary: absent: As Per HPI, Change in Urinary Stream, Difficulty Urinating, Dysuria, Flank Pain, Hematuria, Pyuria, Nocturia, Urinary Incontinence, Urinary Frequency, Urinary Hesitance, Urinary Urgency, Voiding Freq/Small Amts, Freq UTI, Hx Renal/Bladder Calculi, Hx /Renal Surgery, B ladder Distension, Other - Musculoskeletal Musculoskeletal: Abnormal Gait, Arthralgias, Muscle Weakness - Integumentary Integumentary: Dry Skin - Neurological Neurological: absent: As Per HPI, Abnormal Gait, Abnormal Hearing, Abnormal Movements, Abnormal Speech, Behavioral Changes, Burning Sensations, Confusion, Convulsions, Disequilibrium, Dizziness, Numbness, Focal Weakness, Frequent Falls, Headaches, Lack of Coordination, Loss of Vision, Memory Loss, Paresthesias, Radicular Pain, Restless Legs, Sensory Deficit, Syncope, Tingling, Tremor, Vertigo, Weakness, Other Visual Disturbances, Other - Psychiatric Psychiatric: absent: As Per HPI, Abnormal Sleep Pattern, Anhedonia, Anxiety, Auditory Hallucinations, Behavioral Changes, Change in Appetite, Change in Libido, Confusion, Depression, Difficulty Concentrating, Hallucinations, Homici mandy Ideation, Hopelessness, Irritability, Memory Loss, Mood Swings, Panic Attacks, Paranoia, Suicidal Ideation, Visual Hallucinations, Tactile Hallucinations, Other - Endocrine Endocrine: absent: As Per HPI, Change in Body Appearance, Change in Libido, Cold Intolorance, Deepening of Voice, Excessive Sweating, Fatigue, Flushing, Heat Intolorance, Increase in Ring/Shoe/Hat Size, Palpitations, Polydipsia, Polyphagia, Polyuria, Other - Hematologic/Lymphatic Hematologic: Easy Bleeding Past Patient History - Infectious Disease Hx of Infectious Diseases: None - Past Medical History & Family History Past Medical History?: Yes - Past Social History Smoking Status: Former Smoker - CARDIAC Hx Hypertension: Yes Hx Peripheral Edema: Yes - PULMONARY Hx Chronic Obstructive Pulmonary Disease (COPD): Yes - NEUROLOGICAL Hx Neurological Disorder: No - HEENT Hx HEENT Problems: No - RENAL Hx Chronic Kidney Disease: No - ENDOCRINE/METABOLIC Hx Endocrine Disorders: No - HEMATOLOGICAL/ONCOLOGICAL Hx Blood Disorders: Yes Hx Leukemia: Yes (Recieves Chemo last chemo tx was Thursday) - INTEGUMENTARY Hx Dermatological Problems: No - MUSCULOSKELETAL/RHEUMATOLOGICAL Hx Falls: No - GASTROINTESTINAL Hx Gastrointestinal Disorders: Yes Hx Constipation: Yes - GENITOURINARY/GYNECOLOGICAL Hx Genitourinary Disorders: No - PSYCHIATRIC Hx Substance Use: No (pt denies) - SURGICAL HISTORY Hx Surgeries: No - ANESTHESIA Hx Anesthesia: No Meds Allergies/Adverse Reactions: Allergies Allergy/AdvReac Type Severity Reaction Status Date / Time No Known Allergies Allergy Verified 11/29/18 17:20 - Medications Medications: Current Medications Acetaminophen (Tylenol 325mg Tab) 650 mg PO Q6 PRN PRN Reason: Fever >100.4 F Last Admin: 12/01/18 14:30 Dose: 650 mg Sodium Chloride (Sodium Chloride 0.9%) 1,000 mls @ 100 mls/hr IV .Q10H [facility] Last Admin: 12/02/18 03:07 Dose: 100 mls/hr Piperacillin Sod/Tazobactam Sod (Zosyn 3.375 Gm Iv Premix) 3.375 gm in 50 mls @ 100 mls/hr IVPB Q6 ELDA; Protocol Last Admin: 12/02/18 05:08 Dose: 100 mls/hr Vancomycin/Sodium Chloride (Vancomycin 1 Gm/Ns 200 Ml) 1 gm in 200 mls @ 133 mls/hr IVPB DAILY@1700 ELDA; Protocol Stop: 12/05/18 17:01 Last Admin: 12/01/18 17:15 Dose: 133 mls/hr Pantoprazole Sodium (Protonix Ec Tab) 40 mg PO DAILY [facility] Last Admin: 12/01/18 10:17 Dose: 40 mg Tamsulosin HCl (Flomax) 0.4 mg PO BID [facility] Last Admin: 12/01/18 19:56 Dose: 0.4 mg Physical Exam - Constitutional Appears: Chronically Ill - Head Exam Head Exam: ATRAUMATIC, NORMAL INSPECTION, NORMOCEPHALIC - Eye Exam Eye Exam: EOMI, Normal appearance, PERRL Pupil Exam: NORMAL ACCOMODATION, PERRL - ENT Exam ENT Exam: Mucous Membranes Moist, Normal Exam - Neck Exam Neck exam: Positive for: Normal Inspection - Respiratory Exam Respiratory Exam: Decreased Breath Sounds Additional comments: left chest tube - Cardiovascular Exam Cardiovascular Exam: Tachycardia - GI/Abdominal Exam GI & Abdominal Exam: Normal Bowel Sounds, Soft - Rectal Exam Rectal Exam: Deferred - Exam Exam: NORMAL INSPECTION - Extremities Exam Extremities exam: Positive for: pedal edema - Back Exam Back exam: NORMAL INSPECTION - Neurological Exam Neurological exam: Alert, Oriented x3 - Psychiatric Exam Psychiatric exam: Flat Affect - Skin Skin Exam: Abrasion, Dry, Pallor Results - Vital Signs Recent Vital Signs: Last Vital Signs Temp 98.9 F 12/02/18 04:00 Pulse 76 12/02/18 06:00 Resp 16 12/02/18 06:00 BP 94/45 L 12/02/18 05:49 Pulse Ox 100 12/02/18 06:00 - Labs Result Diagrams: 12/02/18 05:42 12/02/18 05:42 Labs: Laboratory Results - last 24 hr 12/01/18 12/01/18 12/01/18 15:10 17:21 20:02 WBC RBC Hgb Hct MCV MCH MCHC RDW Plt Count Manual Plt Count MPV Neut % (Auto) Lymph % (Auto) [place] % (Auto) Eos % (Auto) Baso % (Auto) Neut # (Auto) Lymph # (Auto) [place] # (Auto) Eos # (Auto) Baso # (Auto) Total Counted Neutrophils % (Manual) Band Neutrophils % Lymphocytes % (Manual) Reactive Lymphs % Monocytes % (Manual) Eosinophils % (Manual) Basophils % (Manual) Metamyelocytes % Myelocytes % Promyelocytes % Blast Cells % Plasma Cell % (Manual) Nucleated RBC % Hypersegmented Polys Smudge Cells Toxic Granulation Dohle Bodies Naz[place]in Rods Platelet Estimate Plt Clumps, EDTA Large Platelets Giant Platelets RBC Morphology Polychromasia Hypochromasia (manual) Poikilocytosis (manual Basophilic Stippling Anisocytosis (manual) Microcytosis (manual) Macrocytosis (manual) Spherocytes Sickle Cells Target Cells Tear Drop Cells Ovalocytes Stomatocytes Helmet Cells [place] Bodies [place] Cells Acanthocytes (Spur) Rouleaux Schistocytes Sodium Potassium Chloride Carbon Dioxide Anion Gap BUN Creatinine Est GFR ( Amer) Est GFR (Non-Af Amer) Random Glucose Calcium Phosphorus Magnesium Total Bilirubin 2.1 H Direct Bilirubin 0.9 H AST ALT Alkaline Phosphatase Total Protein Albumin Globulin Albumin/Globulin Ratio Urine Color Yellow Urine Clarity Clear Urine pH 5.0 Ur Specific [place] 1.019 Urine Protein 1+ H Urine Glucose (UA) Normal Urine Ketones Negative Urine Blood 2+ H Urine Nitrate Negative Urine Bilirubin Negative Urine Urobilinogen Normal Ur Leukocyte Esterase Neg Urine WBC (Auto) 1 Urine RBC (Auto) 17 H Clerical Work Check No discrepancy Pre-Trans Blood Type B POSITIVE Pre-Trans Vis Hemolysis No hemolysis Post-Trans Blood Type B POSITIVE Post-Tx Visible Hemolys No hemolysis Post-Tx Ab Screen (Gel) Negative Post-Trans GARRY Poly Negative 12/02/18 12/02/18 05:42 05:42 WBC 0.1 L* D RBC 2.63 L Hgb 7.7 L Hct 23.8 L MCV 90.6 MCH 29.3 MCHC 32.3 L RDW 15.7 H Plt Count 26 L* D Manual Plt Count 21 L* D MPV 8.9 Neut % (Auto) 3.0 L Lymph % (Auto) 30.3 [place] % (Auto) 63.7 H Eos % (Auto) 3.0 Baso % (Auto) 0.0 Neut # (Auto) 0.0 L Lymph # (Auto) 0.0 L [place] # (Auto) 0.1 Eos # (Auto) 0.0 Baso # (Auto) 0.0 Total Counted Cancelled Neutrophils % (Manual) Cancelled Band Neutrophils % Cancelled Lymphocytes % (Manual) Cancelled Reactive Lymphs % Cancelled Monocytes % (Manual) Cancelled Eosinophils % (Manual) Cancelled Basophils % (Manual) Cancelled Metamyelocytes % Cancelled Myelocytes % Cancelled Promyelocytes % Cancelled Blast Cells % Cancelled Plasma Cell % (Manual) Cancelled Nucleated RBC % Cancelled Hypersegmented Polys Cancelled Smudge Cells Cancelled Toxic Granulation Cancelled Dohle Bodies Cancelled [place] Rods Cancelled Platelet Estimate Cancelled Plt Clumps, EDTA Cancelled Large Platelets Cancelled Giant Platelets Cancelled RBC Morphology Cancelled Polychromasia Cancelled Hypochromasia (manual) Cancelled Poikilocytosis (manual Cancelled Basophilic Stippling Cancelled Anisocytosis (manual) Cancelled Microcytosis (manual) Cancelled Macrocytosis (manual) Cancelled Spherocytes Cancelled Sickle Cells Cancelled Target Cells Cancelled Tear Drop Cells Cancelled Ovalocytes Cancelled Stomatocytes Cancelled Helmet Cells Cancelled [place] Bodies Cancelled Terry Cells Cancelled Acanthocytes (Spur) Cancelled Rouleaux Cancelled Schistocytes Cancelled Sodium 135 Potassium 3.7 Chloride 108 H Carbon Dioxide 21 L Anion Gap 9 L BUN 27 H Creatinine 0.9 Est GFR ( Amer) > 60 Est GFR (Non-Af Amer) > 60 Random Glucose 145 H D Calcium 7.7 L Phosphorus 3.1 Magnesium 1.9 Total Bilirubin 1.5 H Direct Bilirubin AST 10 L ALT 18 L Alkaline Phosphatase 59 Total Protein 5.1 L Albumin 2.6 L Globulin 2.5 Albumin/Globulin Ratio 1.0 Urine Color Urine Clarity Urine pH Ur Specific [place] Urine Protein Urine Glucose (UA) Urine Ketones Urine Blood Urine Nitrate Urine Bilirubin Urine Urobilinogen Ur Leukocyte Esterase Urine WBC (Auto) Urine RBC (Auto) Clerical Work Check Pre-Trans Blood Type Pre-Trans Vis Hemolysis Post-Trans Blood Type Post-Tx Visible Hemolys Post-Tx Ab Screen (Gel) Post-Trans GARRY Poly Assessment & Plan - Assessment and Plan (Free Text) Assessment: Palliative consult Full Code, there is no Advance directive on chart, PPS 20% I reviewed medical records and diagnostic studies, examined and interviewed patient in the bed Patient is alert, oriented X 3 with speech that is clear. Patient looks cachectic, dry skin and pale. Hb this am 7.7. WBC dropped to 0.1. Patient is kept on contact isolation. Breathing is regular with diminished breath sounds. Left sided Chest Tube in place, drainage yellowish. There is no cough, no SOB at rest. HR 88, ST. Abdomen soft. at bed side states that patient takes a lot of fluids PO and is forcing him self to eat despite poor appetite. There is mild pedal edema, skin to both legs is shiny with scattered discoloration. BP 111/47, HR 88, afebrile, on Non rebrither mask I firs discussed patient's condition with patient's , away from the bedside. is fully aware of patient's condition as Doctor Lindsay had discussed it with her in the past. The calls the time since diagnosing " an agony". She reports that between [facility] and hospital patient barely makes it at home. She stays with him most of the days and nights as she is worried about him. The is also very sick herself; S/P open heart surgery and thyroidectomy. I elicited her feelings about end of life care for her . She said, that if it was up to her, she would never go for further aggressive measures such as CPR and intubation, if comes to it. However, she said that the final decision will be up to their children. Goals of care discussed with patient as well. Patient is aware of his diagnosis and is thankful for care given. When it came to end of life care discussion patient avoided eye contacts and thierry that the final decision would be up to his children. Plan was made with to bring in her oldest daughter tomorrow around 1 pm for family meeting. Impression * Severely ill male, aware of his AML diagnosis but in denial , passes end of life decisions making to his children * is supportive of Natural * Thrombocytopenia * Severe neutropenia, WBC 0.1 * Generalized weakness * Anemia due to diagnosis * Unwanted weight loss * Pneumothorax with chest tube Suggestions * Patient may need PRBCs and FFPs transfusion, Doctor Swanton on board * Continue reverse isolation * Food as tolerated * Full Code Pending family meeting tomorrow 1pm, if daughter able to come in Advance care planing 55 min
[2018-12-02] MEDS: Pantoprazole 40 mg EC Tab PO SCH (10:32)
--- NOTE | 2018-12-02 14:03 | CP.CCUPN ---
<Darell Lauren - Last Filed: 12/02/18 20:36> CCU Subjective - Physician Review Subjective (Free Text): PGY-[address] Hinojosa service Patient is seen and examined at bedside. Patient has no complaints at this time. Patient's at bedside, states patient was sweating yesterday and had a fever. no fever, chills, chest pain or shortness of breath reported. Patient is eating well and sitting in bed comfortably. Critical Care Time Spent (in minutes): 35 CCU Objective - Vital Signs / Intake & Output Vital Signs (Last 4 hours): Vital Signs Temp Pulse Resp BP Pulse Ox 12/02/18 13:00 93 H 21 100 12/02/18 12:49 98 H 19 106/53 L 93 L 12/02/18 12:00 98.1 F 86 22 100 12/02/18 11:49 87 25 H 101/56 L 100 12/02/18 11:00 78 21 12/02/18 10:49 86 24 102/53 L 100 Intake and Output (Last 8hrs): Intake & Output 12/01/18 12/02/18 12/02/18 22:59 06:59 14:59 Intake Total 1253 1390 700 Output Total 490 950 401 Balance 763 440 299 Weight 100 lb 5 oz Intake: Intake, IV Amount 850 750 700 Left Upper arm 850 750 700 Oral 200 640 Blood Product 203 Apheresis Plts Acda Lr 203 Irr Unit [id number] Output: Chest Tube Drainage 150 Left Lateral Chest 150 Drainage 140 Left Lateral Chest 140 Urine 350 800 400 Urine, Voided 350 800 400 Stool 1 Other: # Bowel Movements 1 0 - Physical Exam Head: Positive for: Atraumatic, Normocephalic Pupils: Positive for: PERRL Extroacular Muscles: Positive for: EOMI Conjunctiva: Positive for: Normal Mouth: Positive for: Dry, Other (On nonrebreather mask ) Respiratory/Chest: Positive for: Clear to Auscultation, Other (left chest tube, clean, collecting about 450 cc fluid ). Negative for: Respiratory Distress, Accessory Muscle Use Cardiovascular: Positive for: Regular Rate and Rhythm, Normal S1, S2 Abdomen: Positive for: Normal Bowel Sounds. Negative for: Tenderness, Distention Upper Extremity: Positive for: Normal Inspection. Negative for: Edema Lower Extremity: Positive for: Normal Inspection. Negative for: Edema Neurological: Positive for: CN II-XII Intact, Speech Normal Skin: Positive for: Warm, Dry, Normal Color Psychiatric: Positive for: Alert, Oriented x 3, Normal Insight, Normal Concentration, Normal Affect, Normal Mood - Medications Active Medications: Active Medications Generic Name Dose Route Start Last Admin Trade Name Freq PRN Reason Stop Dose Admin Acetaminophen 650 mg 11/29/18 19:43 12/01/18 14:30 Tylenol 325mg Tab PO 650 mg Q6 PRN Administration Fever >100.4 F Sodium Chloride 1,000 mls @ 100 mls/hr 11/29/18 19:45 12/02/18 10:32 Sodium Chloride 0.9% IV Not Given .Q10H ELDA Piperacillin Sod/Tazobactam Sod 3.375 gm in 50 mls @ 100 mls/hr 11/30/18 00:00 12/02/18 05:08 Zosyn 3.375 Gm Iv Premix IVPB 100 mls/hr Q6 ELDA Administration Protocol Vancomycin/Sodium Chloride 1 gm in 200 mls @ 133 mls/hr 11/30/18 17:00 12/01/18 17:15 Vancomycin 1 Gm/Ns 200 Ml IVPB 12/05/18 17:01 133 mls/hr DAILY@1700 ELDA Administration Protocol Pantoprazole Sodium 40 mg 11/30/18 10:00 12/02/18 10:32 Protonix Ec Tab PO 40 mg DAILY ELDA Administration Tamsulosin HCl 0.4 mg 11/30/18 10:00 12/02/18 10:32 Flomax PO 0.4 mg BID ELDA Administration - Patient Studies Lab Studies: Microbiology Studies 12/01/18 18:46 Gram Stain - Final Blood 11/30/18 10:00 Blood Culture - Preliminary Blood NO GROWTH AFTER 48 HOURS Gram Stain - Final 11/29/18 18:00 Blood Culture - Preliminary Blood NO GROWTH AFTER 48 HOURS 11/29/18 17:30 Blood Culture - Preliminary Blood NO GROWTH AFTER 48 HOURS 11/30/18 09:31 MRSA Culture (Admit) - Final Naris MRSA NOT DETECTED Lab Studies 12/02/18 12/02/18 12/02/18 Range/Units 11:48 05:42 05:42 WBC 0.1 L* D (4.8-10.8) K/uL RBC 2.63 L (4.40-5.90) Mil/uL Hgb 7.7 L (12.0-18.0) g/dL Hct 23.8 L (35.0-51.0) % MCV 90.6 (80.0-94.0) fL MCH 29.3 (27.0-31.0) pg MCHC 32.3 L (33.0-37.0) g/dL RDW 15.7 H (11.5-14.5) % Plt Count 26 L* D (130-400) K/uL Manual Plt Count 21 L* D (130-400) K/uL MPV 8.9 (7.2-11.7) fL Neut % (Auto) 3.0 L (50.0-75.0) % Lymph % (Auto) 30.3 (20.0-40.0) % [place] % (Auto) 63.7 H (0.0-10.0) % Eos % (Auto) 3.0 (0.0-4.0) % Baso % (Auto) 0.0 (0.0-2.0) % Neut # (Auto) 0.0 L (1.8-7.0) K/uL Lymph # (Auto) 0.0 L (1.0-4.3) K/uL [place] # (Auto) 0.1 (0.0-0.8) K/uL Eos # (Auto) 0.0 (0.0-0.7) K/uL Baso # (Auto) 0.0 (0.0-0.2) K/uL Total Counted Cancelled Neutrophils % (Manual) Cancelled Band Neutrophils % Cancelled Lymphocytes % (Manual) Cancelled Reactive Lymphs % Cancelled Monocytes % (Manual) Cancelled Eosinophils % (Manual) Cancelled Basophils % (Manual) Cancelled Metamyelocytes % Cancelled Myelocytes % Cancelled Promyelocytes % Cancelled Blast Cells % Cancelled Plasma Cell % (Manual) Cancelled Nucleated RBC % Cancelled Hypersegmented Polys Cancelled Smudge Cells Cancelled Toxic Granulation Cancelled Dohle Bodies Cancelled Nazanin Rods Cancelled Platelet Estimate Cancelled Plt Clumps, EDTA Cancelled Large Platelets Cancelled Giant Platelets Cancelled RBC Morphology Cancelled Polychromasia Cancelled Hypochromasia (manual) Cancelled Poikilocytosis (manual Cancelled Basophilic Stippling Cancelled Anisocytosis (manual) Cancelled Microcytosis (manual) Cancelled Macrocytosis (manual) Cancelled Spherocytes Cancelled Sickle Cells Cancelled Target Cells Cancelled Tear Drop Cells Cancelled Ovalocytes Cancelled Stomatocytes Cancelled Helmet Cells Cancelled Gunderson-Fabens Bodies Cancelled Terry Cells Cancelled Acanthocytes (Spur) Cancelled Rouleaux Cancelled Schistocytes Cancelled Sodium 135 (132-148) mmol/L Potassium 3.7 (3.6-5.2) mmol/L Chloride 108 H (98-107) mmol/L Carbon Dioxide 21 L (22-30) mmol/L Anion Gap 9 L (10-20) BUN 27 H (9-20) mg/dL Creatinine 0.9 (0.8-1.5) mg/dL Est GFR ( Amer) > 60 Est GFR (Non-Af Amer) > 60 POC Glucose (mg/dL) 130 H (65-110) mg/dL Random Glucose 145 H D (75-110) mg/dL Calcium 7.7 L (8.6-10.4) mg/dl Phosphorus 3.1 (2.5-4.5) mg/dL Magnesium 1.9 (1.6-2.3) mg/dL Total Bilirubin 1.5 H (0.2-1.3) mg/dL Direct Bilirubin (0.0-0.4) mg/dL AST 10 L (17-59) U/L ALT 18 L (21-72) U/L Alkaline Phosphatase 59 (38-126) U/L Total Protein 5.1 L (6.3-8.3) g/dL Albumin 2.6 L (3.5-5.0) g/dL Globulin 2.5 (2.2-3.9) gm/dL Albumin/Globulin Ratio 1.0 (1.0-2.1) Urine Color (YELLOW) Urine Clarity (Clear) Urine pH (5.0-8.0) Ur Specific [place] (1.003-1.030) Urine Protein (NEGATIVE) mg/dL Urine Glucose (UA) (Normal) mg/dL Urine Ketones (NEGATIVE) mg/dL Urine Blood (NEGATIVE) Urine Nitrate (NEGATIVE) Urine Bilirubin (NEGATIVE) Urine Urobilinogen (0.2-1.0) mg/dL Ur Leukocyte Esterase (Negative) Michael/uL Urine WBC (Auto) (0-5) /hpf Urine RBC (Auto) (0-3) /hpf Clerical Work Check Pre-Trans Blood Type Pre-Trans Vis Hemolysis Post-Trans Blood Type Post-Tx Visible Hemolys Post-Tx Ab Screen (Gel) Post-Trans GARRY Poly (NEGATIVE) 12/01/18 12/01/18 12/01/18 Range/Units 20:02 17:21 15:10 WBC (4.8-10.8) K/uL RBC (4.40-5.90) Mil/uL Hgb (12.0-18.0) g/dL Hct (35.0-51.0) % MCV (80.0-94.0) fL MCH (27.0-31.0) pg MCHC (33.0-37.0) g/dL RDW (11.5-14.5) % Plt Count (130-400) K/uL Manual Plt Count (130-400) K/uL MPV (7.2-11.7) fL Neut % (Auto) (50.0-75.0) % Lymph % (Auto) (20.0-40.0) % [place] % (Auto) (0.0-10.0) % Eos % (Auto) (0.0-4.0) % Baso % (Auto) (0.0-2.0) % Neut # (Auto) (1.8-7.0) K/uL Lymph # (Auto) (1.0-4.3) K/uL [place] # (Auto) (0.0-0.8) K/uL Eos # (Auto) (0.0-0.7) K/uL Baso # (Auto) (0.0-0.2) K/uL Total Counted Neutrophils % (Manual) Band Neutrophils % Lymphocytes % (Manual) Reactive Lymphs % Monocytes % (Manual) Eosinophils % (Manual) Basophils % (Manual) Metamyelocytes % Myelocytes % Promyelocytes % Blast Cells % Plasma Cell % (Manual) Nucleated RBC % Hypersegmented Polys Smudge Cells Toxic Granulation Dohle Bodies Nazanin Rods Platelet Estimate Plt Clumps, EDTA Large Platelets Giant Platelets RBC Morphology Polychromasia Hypochromasia (manual) Poikilocytosis (manual Basophilic Stippling Anisocytosis (manual) Microcytosis (manual) Macrocytosis (manual) Spherocytes Sickle Cells Target Cells Tear Drop Cells Ovalocytes Stomatocytes Helmet Cells Gunderson-Fabens Bodies [place] Cells Acanthocytes (Spur) Rouleaux Schistocytes Sodium (132-148) mmol/L Potassium (3.6-5.2) mmol/L Chloride (98-107) mmol/L Carbon Dioxide (22-30) mmol/L Anion Gap (10-20) BUN (9-20) mg/dL Creatinine (0.8-1.5) mg/dL Est GFR ( Amer) Est GFR (Non-Af Amer) POC Glucose (mg/dL) (65-110) mg/dL Random Glucose (75-110) mg/dL Calcium (8.6-10.4) mg/dl Phosphorus (2.5-4.5) mg/dL Magnesium (1.6-2.3) mg/dL Total Bilirubin 2.1 H (0.2-1.3) mg/dL Direct Bilirubin 0.9 H (0.0-0.4) mg/dL AST (17-59) U/L ALT (21-72) U/L Alkaline Phosphatase (38-126) U/L Total Protein (6.3-8.3) g/dL Albumin (3.5-5.0) g/dL Globulin (2.2-3.9) gm/dL Albumin/Globulin Ratio (1.0-2.1) Urine Color Yellow (YELLOW) Urine Clarity Clear (Clear) Urine pH 5.0 (5.0-8.0) Ur Specific [place] 1.019 (1.003-1.030) Urine Protein 1+ H (NEGATIVE) mg/dL Urine Glucose (UA) Normal (Normal) mg/dL Urine Ketones Negative (NEGATIVE) mg/dL Urine Blood 2+ H (NEGATIVE) Urine Nitrate Negative (NEGATIVE) Urine Bilirubin Negative (NEGATIVE) Urine Urobilinogen Normal (0.2-1.0) mg/dL Ur Leukocyte Esterase Neg (Negative) Michael/uL Urine WBC (Auto) 1 (0-5) /hpf Urine RBC (Auto) 17 H (0-3) /hpf Clerical Work Check No discrepancy Pre-Trans Blood Type B POSITIVE Pre-Trans Vis Hemolysis No hemolysis Post-Trans Blood Type B POSITIVE Post-Tx Visible Hemolys No hemolysis Post-Tx Ab Screen (Gel) Negative Post-Trans GARRY Poly Negative (NEGATIVE) Laboratory Results - last 24 hr 12/01/18 12/01/18 12/01/18 15:10 17:21 20:02 WBC RBC Hgb Hct MCV MCH MCHC RDW Plt Count Manual Plt Count MPV Neut % (Auto) Lymph % (Auto) [place] % (Auto) Eos % (Auto) Baso % (Auto) Neut # (Auto) Lymph # (Auto) [place] # (Auto) Eos # (Auto) Baso # (Auto) Total Counted Neutrophils % (Manual) Band Neutrophils % Lymphocytes % (Manual) Reactive Lymphs % Monocytes % (Manual) Eosinophils % (Manual) Basophils % (Manual) Metamyelocytes % Myelocytes % Promyelocytes % Blast Cells % Plasma Cell % (Manual) Nucleated RBC % Hypersegmented Polys Smudge Cells Toxic Granulation Dohle Bodies Nazanin Rods Platelet Estimate Plt Clumps, EDTA Large Platelets Giant Platelets RBC Morphology Polychromasia Hypochromasia (manual) Poikilocytosis (manual Basophilic Stippling Anisocytosis (manual) Microcytosis (manual) Macrocytosis (manual) Spherocytes Sickle Cells Target Cells Tear Drop Cells Ovalocytes Stomatocytes Helmet Cells Gunderson-Fabens Bodies [place] Cells Acanthocytes (Spur) Rouleaux Schistocytes Sodium Potassium Chloride Carbon Dioxide Anion Gap BUN Creatinine Est GFR ( Amer) Est GFR (Non-Af Amer) POC Glucose (mg/dL) Random Glucose Calcium Phosphorus Magnesium Total Bilirubin 2.1 H Direct Bilirubin 0.9 H AST ALT Alkaline Phosphatase Total Protein Albumin Globulin Albumin/Globulin Ratio Urine Color Yellow Urine Clarity Clear Urine pH 5.0 Ur Specific [place] 1.019 Urine Protein 1+ H Urine Glucose (UA) Normal Urine Ketones Negative Urine Blood 2+ H Urine Nitrate Negative Urine Bilirubin Negative Urine Urobilinogen Normal Ur Leukocyte Esterase Neg Urine WBC (Auto) 1 Urine RBC (Auto) 17 H Clerical Work Check No discrepancy Pre-Trans Blood Type B POSITIVE Pre-Trans Vis Hemolysis No hemolysis Post-Trans Blood Type B POSITIVE Post-Tx Visible Hemolys No hemolysis Post-Tx Ab Screen (Gel) Negative Post-Trans GARRY Poly Negative 12/02/18 12/02/18 12/02/18 05:42 05:42 11:48 WBC 0.1 L* D RBC 2.63 L Hgb 7.7 L Hct 23.8 L MCV 90.6 MCH 29.3 MCHC 32.3 L RDW 15.7 H Plt Count 26 L* D Manual Plt Count 21 L* D MPV 8.9 Neut % (Auto) 3.0 L Lymph % (Auto) 30.3 [place] % (Auto) 63.7 H Eos % (Auto) 3.0 Baso % (Auto) 0.0 Neut # (Auto) 0.0 L Lymph # (Auto) 0.0 L [place] # (Auto) 0.1 Eos # (Auto) 0.0 Baso # (Auto) 0.0 Total Counted Cancelled Neutrophils % (Manual) Cancelled Band Neutrophils % Cancelled Lymphocytes % (Manual) Cancelled Reactive Lymphs % Cancelled Monocytes % (Manual) Cancelled Eosinophils % (Manual) Cancelled Basophils % (Manual) Cancelled Metamyelocytes % Cancelled Myelocytes % Cancelled Promyelocytes % Cancelled Blast Cells % Cancelled Plasma Cell % (Manual) Cancelled Nucleated RBC % Cancelled Hypersegmented Polys Cancelled Smudge Cells Cancelled Toxic Granulation Cancelled Dohle Bodies Cancelled Nazanin Rods Cancelled Platelet Estimate Cancelled Plt Clumps, EDTA Cancelled Large Platelets Cancelled Giant Platelets Cancelled RBC Morphology Cancelled Polychromasia Cancelled Hypochromasia (manual) Cancelled Poikilocytosis (manual Cancelled Basophilic Stippling Cancelled Anisocytosis (manual) Cancelled Microcytosis (manual) Cancelled Macrocytosis (manual) Cancelled Spherocytes Cancelled Sickle Cells Cancelled Target Cells Cancelled Tear Drop Cells Cancelled Ovalocytes Cancelled Stomatocytes Cancelled Helmet Cells Cancelled Gunderson-Fabens Bodies Cancelled [place] Cells Cancelled Acanthocytes (Spur) Cancelled Rouleaux Cancelled Schistocytes Cancelled Sodium 135 Potassium 3.7 Chloride 108 H Carbon Dioxide 21 L Anion Gap 9 L BUN 27 H Creatinine 0.9 Est GFR ( Amer) > 60 Est GFR (Non-Af Amer) > 60 POC Glucose (mg/dL) 130 H Random Glucose 145 H D Calcium 7.7 L Phosphorus 3.1 Magnesium 1.9 Total Bilirubin 1.5 H Direct Bilirubin AST 10 L ALT 18 L Alkaline Phosphatase 59 Total Protein 5.1 L Albumin 2.6 L Globulin 2.5 Albumin/Globulin Ratio 1.0 Urine Color Urine Clarity Urine pH Ur Specific [place] Urine Protein Urine Glucose (UA) Urine Ketones Urine Blood Urine Nitrate Urine Bilirubin Urine Urobilinogen Ur Leukocyte Esterase Urine WBC (Auto) Urine RBC (Auto) Clerical Work Check Pre-Trans Blood Type Pre-Trans Vis Hemolysis Post-Trans Blood Type Post-Tx Visible Hemolys Post-Tx Ab Screen (Gel) Post-Trans GARRY Poly Radiology Impressions: Radiology Impressions Chest X-Ray 12/01/18 09:07 IMPRESSION: Right pneumothorax now [id number] overall volume, increased in the interval with left pleural catheter again noted in position, 2.9 cm within the left pleural space.. Trace left pleural effusion evident. Further clinical correlation recommended. A potential obstruction at the catheter or catheter adjustment/replacement. Atelectasis favored over infiltrate unchanged at the mid to inferior left lung zone. 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 Neuro AAOx3 no acute issues Cardio Hypotensive, asymptomatic- continue to monitor continue to hold HTN meds for now Pulm left Pneumothorax and left pneumomediastinum on left upper lobe Pigtail tube place on left side of thorax 12/01 am chest Xray - Rt Pneumothorax mild to mod overall volume, Trace left pleural effusion evident 12/02 chest xray - left pleural catherer is uncoiked and slightly retracted, interval decrease in size of persistent moderate hydropneumothorax Consult - Cardiothoracic surgery to evmanuel - Dr Nunes CT chest w/o contrast ordered - f/u result 100% O2 nonrebreather mask continue to monitor vitals GI HHD supplement - ensure dietitian consult Protonix Renal BUN/Cr stable hx of BPH - cont home flomax Heme/Onc WBC 0.1 - reverse isolation precautions Platelets 26, manual count 21 - continue to monitor Hemoglobin drop to 7.7 from 8 - will monitor Dr Bobby - Heme/Onc - Goal of Hb of 10, Plts of 20 - f/u recs am labs ID Afebrile, HR low 100s WBC 0.4 2/2 hx of AML Blood, Urine cx - no growth 24 hours Vanc and Zosyn cont NS @100 cc f/u am labs PPX DVT: SCDS, no chemical anticoagulation indicated due to thrombocytopeia GI - Protonix palliative care consult - goals of care - meeting with family tomorrow 1pm reverse islation for neutropenia Plan discussed with Dr Ashish Lauren, PGY-1 - Date & Time Date: 12/02/18 Time: 10:00 <Temo Hinojosa M - Last Filed: 12/07/18 07:44> CCU Objective - Vital Signs / Intake & Output Vital Signs (Last 4 hours): Vital Signs Temp Pulse Resp BP Pulse Ox 12/07/18 07:00 97 H 20 98 12/07/18 06:53 103 H 18 141/61 93 L 12/07/18 06:00 101 H 19 95 12/07/18 05:54 104 H 21 118/51 L 93 L 12/07/18 05:00 112 H 22 98 12/07/18 04:53 101 H 22 146/61 98 12/07/18 04:00 98.3 F 102 H 24 95 12/07/18 03:53 108 H 27 H 141/60 96 Intake and Output (Last 8hrs): Intake & Output 12/06/18 12/07/18 12/07/18 22:59 06:59 14:59 Intake Total 30 100 0 Output Total 560 450 Balance -530 -350 0 Intake: Intake, IV Amount 50 Left Hand 50 Oral 30 50 0 Output: Chest Tube Drainage 60 50 Left Lateral Chest 60 50 Urine 500 400 Urine, Voided 500 400 Other: # Voids Urine, Voided 1 1 # Bowel Movements 1 - Medications Active Medications: Active Medications Generic Name Dose Route Start Last Admin Trade Name Freq PRN Reason Stop Dose Admin Acetaminophen 650 mg 11/29/18 19:43 12/04/18 11:44 Tylenol 325mg Tab PO 650 mg Q6 PRN Administration Fever >100.4 F Albuterol/Ipratropium 3 ml 12/04/18 13:54 12/05/18 13:06 Duoneb 3 Mg/0.5 Mg (3 Ml) Ud INH 3 ml RQ6 PRN Administration Shortness of Breath Benzocaine/Menthol 1 miguel 12/05/18 10:14 12/05/18 18:24 Cepacol Sore Throat MT 1 miguel Q4H PRN Administration Sore Throat Diphenhydramine HCl 25 mg 12/04/18 09:09 12/04/18 11:44 Benadryl PO 25 mg DAILY PRN Administration pre-transfusion Guaifenesin 100 mg 12/05/18 10:14 12/06/18 15:17 Robitussin PO 100 mg Q4H PRN Administration Cough Hydrocortisone Sodium Succinate 50 mg 12/04/18 10:00 12/04/18 11:43 Solu-Cortef IV 50 mg DAILY PRN Administration pre-transfusion Piperacillin Sod/Tazobactam Sod 3.375 gm in 50 mls @ 100 mls/hr 11/30/18 00:00 12/07/18 05:15 Zosyn 3.375 Gm Iv Premix IVPB 100 mls/hr Q6 ELDA Administration Protocol Pantoprazole Sodium 20 mg 12/05/18 10:00 12/06/18 10:05 Protonix Ec Tab PO 20 mg DAILY ELDA Administration Tamsulosin HCl 0.4 mg 11/30/18 10:00 12/06/18 19:16 Flomax PO 0.4 mg BID ELDA Administration - Patient Studies Lab Studies: Microbiology Studies 12/01/18 17:21 Blood Culture - Final Blood NO GROWTH AFTER 5 DAYS Gram Stain - Final TEST NOT PERFORMED 12/01/18 18:46 Blood Culture - Final Blood No growth. Gram Stain - Final Lab Studies 12/07/18 12/07/18 12/06/18 Range/Units 05:53 05:51 06:07 WBC 0.4 L* (4.8-10.8) K/uL RBC 2.62 L (4.40-5.90) Mil/uL Hgb 7.9 L (12.0-18.0) g/dL Hct 23.2 L (35.0-51.0) % MCV 88.7 (80.0-94.0) fL MCH 30.1 (27.0-31.0) pg MCHC 33.9 (33.0-37.0) g/dL RDW 14.1 (11.5-14.5) % Plt Count 21 L* D (130-400) K/uL Manual Plt Count 44 L (130-400) K/uL MPV 9.4 (7.2-11.7) fL Neut % (Auto) 3.9 L 1.9 L (50.0-75.0) % Lymph % (Auto) 61.2 H 59.8 H (20.0-40.0) % [place] % (Auto) 33.6 H 37.2 H (0.0-10.0) % Eos % (Auto) 1.3 1.1 (0.0-4.0) % Baso % (Auto) 0.0 0.0 (0.0-2.0) % Neut # (Auto) 0.0 L 0.0 L (1.8-7.0) K/uL Lymph # (Auto) 0.2 L 0.2 L (1.0-4.3) K/uL [place] # (Auto) 0.1 0.1 (0.0-0.8) K/uL Eos # (Auto) 0.0 0.0 (0.0-0.7) K/uL Baso # (Auto) 0.0 0.0 (0.0-0.2) K/uL Total Counted Cancelled Neutrophils % (Manual) Cancelled Band Neutrophils % Cancelled Lymphocytes % (Manual) Cancelled Reactive Lymphs % Cancelled Monocytes % (Manual) Cancelled Eosinophils % (Manual) Cancelled Basophils % (Manual) Cancelled Metamyelocytes % Cancelled Myelocytes % Cancelled Promyelocytes % Cancelled Blast Cells % Cancelled Plasma Cell % (Manual) Cancelled Nucleated RBC % Cancelled Hypersegmented Polys Cancelled Smudge Cells Cancelled Toxic Granulation Cancelled Dohle Bodies Cancelled Nazanin Rods Cancelled Platelet Estimate Cancelled Plt Clumps, EDTA Cancelled Large Platelets Cancelled Giant Platelets Cancelled RBC Morphology Cancelled Polychromasia Cancelled Hypochromasia (manual) Cancelled Poikilocytosis (manual Cancelled Basophilic Stippling Cancelled Anisocytosis (manual) Cancelled Microcytosis (manual) Cancelled Macrocytosis (manual) Cancelled Spherocytes Cancelled Sickle Cells Cancelled Target Cells Cancelled Tear Drop Cells Cancelled Ovalocytes Cancelled Stomatocytes Cancelled Helmet Cells Cancelled Gunderson-Fabens Bodies Cancelled Terry Cells Cancelled Acanthocytes (Spur) Cancelled Rouleaux Cancelled Schistocytes Cancelled Sodium 135 (132-148) mmol/L Potassium 3.5 L (3.6-5.2) mmol/L Chloride 104 (98-107) mmol/L Carbon Dioxide 28 (22-30) mmol/L Anion Gap 6 L (10-20) BUN 19 (9-20) mg/dL Creatinine 0.6 L (0.8-1.5) mg/dL Est GFR ( Amer) > 60 Est GFR (Non-Af Amer) > 60 Random Glucose 100 (75-110) mg/dL Calcium 7.6 L (8.6-10.4) mg/dl Total Bilirubin 1.8 H (0.2-1.3) mg/dL AST 31 (17-59) U/L ALT 48 (21-72) U/L Alkaline Phosphatase 137 H D (38-126) U/L Total Protein 4.4 L (6.3-8.3) g/dL Albumin 2.1 L (3.5-5.0) g/dL Globulin 2.3 (2.2-3.9) gm/dL Albumin/Globulin Ratio 0.9 L (1.0-2.1) Laboratory Results - last 24 hr 12/06/18 12/07/18 12/07/18 06:07 05:51 05:53 WBC 0.4 L* RBC 2.62 L Hgb 7.9 L Hct 23.2 L MCV 88.7 MCH 30.1 MCHC 33.9 RDW 14.1 Plt Count 21 L* D Manual Plt Count 44 L MPV 9.4 Neut % (Auto) 1.9 L 3.9 L Lymph % (Auto) 59.8 H 61.2 H [place] % (Auto) 37.2 H 33.6 H Eos % (Auto) 1.1 1.3 Baso % (Auto) 0.0 0.0 Neut # (Auto) 0.0 L 0.0 L Lymph # (Auto) 0.2 L 0.2 L [place] # (Auto) 0.1 0.1 Eos # (Auto) 0.0 0.0 Baso # (Auto) 0.0 0.0 Total Counted Cancelled Neutrophils % (Manual) Cancelled Band Neutrophils % Cancelled Lymphocytes % (Manual) Cancelled Reactive Lymphs % Cancelled Monocytes % (Manual) Cancelled Eosinophils % (Manual) Cancelled Basophils % (Manual) Cancelled Metamyelocytes % Cancelled Myelocytes % Cancelled Promyelocytes % Cancelled Blast Cells % Cancelled Plasma Cell % (Manual) Cancelled Nucleated RBC % Cancelled Hypersegmented Polys Cancelled Smudge Cells Cancelled Toxic Granulation Cancelled Dohle Bodies Cancelled Nazanin Rods Cancelled Platelet Estimate Cancelled Plt Clumps, EDTA Cancelled Large Platelets Cancelled Giant Platelets Cancelled RBC Morphology Cancelled Polychromasia Cancelled Hypochromasia (manual) Cancelled Poikilocytosis (manual Cancelled Basophilic Stippling Cancelled Anisocytosis (manual) Cancelled Microcytosis (manual) Cancelled Macrocytosis (manual) Cancelled Spherocytes Cancelled Sickle Cells Cancelled Target Cells Cancelled Tear Drop Cells Cancelled Ovalocytes Cancelled Stomatocytes Cancelled Helmet Cells Cancelled Gunderson-Fabens Bodies Cancelled [place] Cells Cancelled Acanthocytes (Spur) Cancelled Rouleaux Cancelled Schistocytes Cancelled Sodium 135 Potassium 3.5 L Chloride 104 Carbon Dioxide 28 Anion Gap 6 L BUN 19 Creatinine 0.6 L Est GFR ( Amer) > 60 Est GFR (Non-Af Amer) > 60 Random Glucose 100 Calcium 7.6 L Total Bilirubin 1.8 H AST 31 ALT 48 Alkaline Phosphatase 137 H D Total Protein 4.4 L Albumin 2.1 L Globulin 2.3 Albumin/Globulin Ratio 0.9 L Radiology Impressions: Radiology Impressions Chest X-Ray 12/06/18 11:07 IMPRESSION: Stable multifocal and bilateral infiltrates. Stable pleural effusions. Stable position of chest tube in the left pleural space No visible pneumothorax. Critical Care Progress Note - Nutrition Nutrition: Nutrition Category Date Time Status Regular Diet [DIET] Diets 12/06/18 Dinner Active Attending/Attestation - Attestation I have personally seen and examined this patient.: Yes I have fully participated in the care of the patient.: Yes I have reviewed all pertinent clinical information: Yes Notes (Text): Today: , December 02, 2018 The patient was Seen/interviewed and examined by me at the bedside during ICU round, Medical records reviewed and Management issues were discussed and formulated with the house staff. Events reviewed I have reviewed all the relevant clinical, laboratory, hemodynamic, radiographic data and medications Pain issues, skin care, head of the bed elevation, glycemic control were addressed. I concur with resident's assessment and plan of care as transcribed in Dr. Lauren note.
--- NOTE | 2018-12-02 15:08 | CT ---
Date of service: 12/02/2018 CT chest without IV contrast Indication: Pneumothorax Technique: Contiguous axial images were obtained through the chest without intravenous contrast enhancement. Sagittal and coronal reconstructions were generated and reviewed. This CT exam was performed using 1 or more of the following dose reduction techniques: Automated exposure control, adjustment of the MAA and/or kV according to patient size, and/or use of iterative reconstruction technique. Radiation dose (DLP): 167.16 MGy-cm. Comparison: CT chest without IV contrast performed 10/06/18, chest x-ray performed 12/02/18 Findings: Visualized portions of the inferior thyroid gland appear unremarkable. The unenhanced mediastinal and hilar vascular structures appear grossly unremarkable. Cardiomegaly. Small pericardial effusion. Atherosclerotic calcifications of the aorta. Mediastinal adenopathy measuring up to 1 cm (precarinal). Please note lack of IV contrast limits evaluation for adenopathy, in particular hilar adenopathy. Hyperinflation consistent with COPD. Right apical calcified scarring/fibrotic changes re-identified. Small bilateral pleural effusions (right greater than left) and associated compressive consolidations. Consolidation evident within the lingula. Moderate-sized left-sided pneumothorax. Right upper lobe bulla. Limited visualization of the noncontrast upper abdomen appears grossly unremarkable. Degenerative changes. Osseous demineralization. Impression: Cardiomegaly. Small pericardial effusion. Mediastinal adenopathy measuring up to 1 cm. COPD. Right apical calcified scarring/fibrotic changes re-identified. Small bilateral pleural effusions (right greater than left) and associated compressive consolidations. Consolidation evident within the lingula. Right upper lobe bulla. Moderate-sized left-sided pneumothorax.
--- NOTE | 2018-12-02 16:49 | CP.PCM.CON ---
History of Present Illness - History of Present Illness History of Present Illness: Surgery Consult Note for Dr. Nunes 78 y M w/ PMHx of AML, HTN, BPH presented to ED for 11/29 for subjective fevers and generalized weakness X 1 days. On admission patient was found to be septic with bandemia, elevated lactic, tachycardia, pancytopenia & fever. Patient additionally had pleural effusion on L > R. Patient had chest tube placed for pleural effusion. Patient also has pneuomothorax that is increasing in size. Following pig tail chest tube, patient showed signs of improvement; however, pneumothorax began increasing in size. Surgery consulted for pneumothorax. Presently patient is lying in bed comfortably on NRB with no complaints. PAtient states he is able to walk around and have no SOB. Patient denies headaches, vi belgica changes, chest pain, SOB, abdominal pain, fevers, chills, dysuria, hematuria. PMHx: AML, HTN, BPH PSHx: denies Allergies: NKDA Social Hx: Former smoker, 1 ppd 20 years ago. No alcohol or illicit drug use. Lives with . Review of Systems - Review of Systems All systems: reviewed and no additional remarkable complaints except - Constitutional Constitutional: As Per HPI Past Patient History - Infectious Disease Hx of Infectious Diseases: None - Past Medical History & Family History Past Medical History?: Yes - Past Social History Smoking Status: Former Smoker - CARDIAC Hx Hypertension: Yes Hx Peripheral Edema: Yes - PULMONARY Hx Chronic Obstructive Pulmonary Disease (COPD): Yes - NEUROLOGICAL Hx Neurological Disorder: No - HEENT Hx HEENT Problems: No - RENAL Hx Chronic Kidney Disease: No - ENDOCRINE/METABOLIC Hx Endocrine Disorders: No - HEMATOLOGICAL/ONCOLOGICAL Hx Blood Disorders: Yes Hx Leukemia: Yes (Recieves Chemo last chemo tx was Thursday) - INTEGUMENTARY Hx Dermatological Problems: No - MUSCULOSKELETAL/RHEUMATOLOGICAL Hx Falls: No - GASTROINTESTINAL Hx Gastrointestinal Disorders: Yes Hx Constipation: Yes - GENITOURINARY/GYNECOLOGICAL Hx Genitourinary Disorders: No - PSYCHIATRIC Hx Substance Use: No (pt denies) - SURGICAL HISTORY Hx Surgeries: No - ANESTHESIA Hx Anesthesia: No Meds Allergies/Adverse Reactions: Allergies Allergy/AdvReac Type Severity Reaction Status Date / Time No Known Allergies Allergy Verified 11/29/18 17:20 - Medications Medications: Current Medications Acetaminophen (Tylenol 325mg Tab) 650 mg PO Q6 PRN PRN Reason: Fever >100.4 F Last Admin: 12/01/18 14:30 Dose: 650 mg Sodium Chloride (Sodium Chloride 0.9%) 1,000 mls @ 100 mls/hr IV .Q10H PENDING SALE TO [facility] Last Admin: 12/02/18 10:32 Dose: Not Given Piperacillin Sod/Tazobactam Sod (Zosyn 3.375 Gm Iv Premix) 3.375 gm in 50 mls @ 100 mls/hr IVPB Q6 ELDA; Protocol Last Admin: 12/02/18 12:25 Dose: 100 mls/hr Vancomycin/Sodium Chloride (Vancomycin 1 Gm/Ns 200 Ml) 1 gm in 200 mls @ 133 mls/hr IVPB DAILY@1700 ELDA; Protocol Stop: 12/05/18 17:01 Last Admin: 12/01/18 17:15 Dose: 133 mls/hr Pantoprazole Sodium (Protonix Ec Tab) 40 mg PO DAILY [facility] Last Admin: 12/02/18 10:32 Dose: 40 mg Tamsulosin HCl (Flomax) 0.4 mg PO BID [facility] Last Admin: 12/02/18 10:32 Dose: 0.4 mg Physical Exam - Head Exam Head Exam: NORMAL INSPECTION - Respiratory Exam Respiratory Exam: Decreased Breath Sounds, Rales Additional comments: Rales B/L lungs Pig tale Chest tube on Left side dressing clean, dry, intact - Cardiovascular Exam Cardiovascular Exam: +S1, +S2 - GI/Abdominal Exam GI & Abdominal Exam: Normal Bowel Sounds, Soft - Extremities Exam Extremities exam: Positive for: normal inspection. Negative for: calf tenderness, pedal edema - Back Exam Back exam: NORMAL INSPECTION. absent: CVA tenderness (L), CVA tenderness (R) - Neurological Exam Neurological exam: Alert, Oriented x3 - Psychiatric Exam Psychiatric exam: Normal Affect, Normal Mood - Skin Skin Exam: Dry, Intact, Normal Color, Warm Additional comments: Ecchymosis throughout body Results - Vital Signs Recent Vital Signs: Last Vital Signs Temp 98.1 F 12/02/18 12:00 Pulse 93 H 12/02/18 13:00 Resp 21 12/02/18 13:00 BP 106/53 L 12/02/18 12:49 Pulse Ox 100 12/02/18 13:00 - Labs Result Diagrams: 12/03/18 05:55 12/03/18 05:55 Labs: Laboratory Results - last 24 hr 12/01/18 12/01/18 12/01/18 15:10 17:21 20:02 WBC RBC Hgb Hct MCV MCH MCHC RDW Plt Count Manual Plt Count MPV Neut % (Auto) Lymph % (Auto) [place] % (Auto) Eos % (Auto) Baso % (Auto) Neut # (Auto) Lymph # (Auto) [place] # (Auto) Eos # (Auto) Baso # (Auto) Total Counted Neutrophils % (Manual) Band Neutrophils % Lymphocytes % (Manual) Reactive Lymphs % Monocytes % (Manual) Eosinophils % (Manual) Basophils % (Manual) Metamyelocytes % Myelocytes % Promyelocytes % Blast Cells % Plasma Cell % (Manual) Nucleated RBC % Hypersegmented Polys Smudge Cells Toxic Granulation Dohle Bodies Nazanin Rods Platelet Estimate Plt Clumps, EDTA Large Platelets Giant Platelets RBC Morphology Polychromasia Hypochromasia (manual) Poikilocytosis (manual Basophilic Stippling Anisocytosis (manual) Microcytosis (manual) Macrocytosis (manual) Spherocytes Sickle Cells Target Cells Tear Drop Cells Ovalocytes Stomatocytes Helmet Cells [place] Bodies [place] Cells Acanthocytes (Spur) Rouleaux Schistocytes Sodium Potassium Chloride Carbon Dioxide Anion Gap BUN Creatinine Est GFR ( Amer) Est GFR (Non-Af Amer) POC Glucose (mg/dL) Random Glucose Calcium Phosphorus Magnesium Total Bilirubin 2.1 H Direct Bilirubin 0.9 H AST ALT Alkaline Phosphatase Total Protein Albumin Globulin Albumin/Globulin Ratio Urine Color Yellow Urine Clarity Clear Urine pH 5.0 Ur Specific [place] 1.019 Urine Protein 1+ H Urine Glucose (UA) Normal Urine Ketones Negative Urine Blood 2+ H Urine Nitrate Negative Urine Bilirubin Negative Urine Urobilinogen Normal Ur Leukocyte Esterase Neg Urine WBC (Auto) 1 Urine RBC (Auto) 17 H Clerical Work Check No discrepancy Pre-Trans Blood Type B POSITIVE Pre-Trans Vis Hemolysis No hemolysis Post-Trans Blood Type B POSITIVE Post-Tx Visible Hemolys No hemolysis Post-Tx Ab Screen (Gel) Negative Post-Trans GARRY Poly Negative 12/02/18 12/02/18 12/02/18 05:42 05:42 11:48 WBC 0.1 L* D RBC 2.63 L Hgb 7.7 L Hct 23.8 L MCV 90.6 MCH 29.3 MCHC 32.3 L RDW 15.7 H Plt Count 26 L* D Manual Plt Count 21 L* D MPV 8.9 Neut % (Auto) 3.0 L Lymph % (Auto) 30.3 [place] % (Auto) 63.7 H Eos % (Auto) 3.0 Baso % (Auto) 0.0 Neut # (Auto) 0.0 L Lymph # (Auto) 0.0 L [place] # (Auto) 0.1 Eos # (Auto) 0.0 Baso # (Auto) 0.0 Total Counted Cancelled Neutrophils % (Manual) Cancelled Band Neutrophils % Cancelled Lymphocytes % (Manual) Cancelled Reactive Lymphs % Cancelled Monocytes % (Manual) Cancelled Eosinophils % (Manual) Cancelled Basophils % (Manual) Cancelled Metamyelocytes % Cancelled Myelocytes % Cancelled Promyelocytes % Cancelled Blast Cells % Cancelled Plasma Cell % (Manual) Cancelled Nucleated RBC % Cancelled Hypersegmented Polys Cancelled Smudge Cells Cancelled Toxic Granulation Cancelled Dohle Bodies Cancelled Nazanin Rods Cancelled Platelet Estimate Cancelled Plt Clumps, EDTA Cancelled Large Platelets Cancelled Giant Platelets Cancelled RBC Morphology Cancelled Polychromasia Cancelled Hypochromasia (manual) Cancelled Poikilocytosis (manual Cancelled Basophilic Stippling Cancelled Anisocytosis (manual) Cancelled Microcytosis (manual) Cancelled Macrocytosis (manual) Cancelled Spherocytes Cancelled Sickle Cells Cancelled Target Cells Cancelled Tear Drop Cells Cancelled Ovalocytes Cancelled Stomatocytes Cancelled Helmet Cells Cancelled [place] Bodies Cancelled [place] Cells Cancelled Acanthocytes (Spur) Cancelled Rouleaux Cancelled Schistocytes Cancelled Sodium 135 Potassium 3.7 Chloride 108 H Carbon Dioxide 21 L Anion Gap 9 L BUN 27 H Creatinine 0.9 Est GFR ( Amer) > 60 Est GFR (Non-Af Amer) > 60 POC Glucose (mg/dL) 130 H Random Glucose 145 H D Calcium 7.7 L Phosphorus 3.1 Magnesium 1.9 Total Bilirubin 1.5 H Direct Bilirubin AST 10 L ALT 18 L Alkaline Phosphatase 59 Total Protein 5.1 L Albumin 2.6 L Globulin 2.5 Albumin/Globulin Ratio 1.0 Urine Color Urine Clarity Urine pH Ur Specific [place] Urine Protein Urine Glucose (UA) Urine Ketones Urine Blood Urine Nitrate Urine Bilirubin Urine Urobilinogen Ur Leukocyte Esterase Urine WBC (Auto) Urine RBC (Auto) Clerical Work Check Pre-Trans Blood Type Pre-Trans Vis Hemolysis Post-Trans Blood Type Post-Tx Visible Hemolys Post-Tx Ab Screen (Gel) Post-Trans GARRY Poly Assessment & Plan - Assessment and Plan (Free Text) Assessment: 78 M w/ hx of pneumothorax & AML, consulted for pneuomothorax Plan: - Consider chest tube - Will discuss w/ Dr. Manju Costello, PGY1
--- NOTE | 2018-12-02 17:18 | RAD ---
Date of service: 12/02/2018 HISTORY: Pneumothorax COMPARISON: Chest radiograph dated 12/01/2018. FINDINGS: LUNGS: Lingular consolidation unchanged. PLEURA: Decreased size of persistent left pneumothorax with decreased amount of left pleural fluid. Right apical bulla unchanged. CARDIOVASCULAR: Aortic atherosclerotic calcifications. Cardiomediastinal silhouette stably enlarged. OSSEOUS STRUCTURES: Unchanged. VISUALIZED UPPER ABDOMEN: Normal. OTHER FINDINGS: Left pleural catheter has uncoiled and has slightly retracted. IMPRESSION: Left pleural catheter is uncoiled and has slightly retracted. Interval decrease in size of persistent moderate hydropneumothorax.
[2018-12-02] MEDS: Vancomycin 1 gm/NS 200 ml 1 GM/200 ML BAG IVPB SCH (17:55)
--- NOTE | 2018-12-02 23:04 | CP.PCM.CON ---
History of Present Illness - History of Present Illness History of Present Illness: 78 year old male with a history of AML diagnosed 09/2018 on decitabine (last dosed 2 weeks ago), lung mass, pneumothorax, admitted with fever and pneumonia. The patient notes to having fevers and chills after taking a shower. He came to the ER and was found to have left sided lung infiltrates on CXR and severe pancytopenia. Past medical history: COPD, AML, lung mass, pneumothorax Past surgical history: Denies Family history: Denies hematologic and oncologic problems Social history: Former tobacco abuse Allergies: NKA Review of systems: All remaining review of systems including HEENT, cardiovascular, respiratory, gastrointestinal, genitourinary, musculoskeletal, dermatologic, neurologic, and psychiatric are negative unless mentioned in the HPI. Past Patient History - Infectious Disease Hx of Infectious Diseases: None - Past Medical History & Family History Past Medical History?: Yes - Past Social History Smoking Status: Former Smoker - CARDIAC Hx Hypertension: Yes Hx Peripheral Edema: Yes - PULMONARY Hx Chronic Obstructive Pulmonary Disease (COPD): Yes - NEUROLOGICAL Hx Neurological Disorder: No - HEENT Hx HEENT Problems: No - RENAL Hx Chronic Kidney Disease: No - ENDOCRINE/METABOLIC Hx Endocrine Disorders: No - HEMATOLOGICAL/ONCOLOGICAL Hx Blood Disorders: Yes Hx Leukemia: Yes (Recieves Chemo last chemo tx was Thursday) - INTEGUMENTARY Hx Dermatological Problems: No - MUSCULOSKELETAL/RHEUMATOLOGICAL Hx Falls: No - GASTROINTESTINAL Hx Gastrointestinal Disorders: Yes Hx Constipation: Yes - GENITOURINARY/GYNECOLOGICAL Hx Genitourinary Disorders: No - PSYCHIATRIC Hx Substance Use: No (pt denies) - SURGICAL HISTORY Hx Surgeries: No - ANESTHESIA Hx Anesthesia: No Meds Allergies/Adverse Reactions: Allergies Allergy/AdvReac Type Severity Reaction Status Date / Time No Known Allergies Allergy Verified 11/29/18 17:20 - Medications Medications: Current Medications Acetaminophen (Tylenol 325mg Tab) 650 mg PO Q6 PRN PRN Reason: Fever >100.4 F Last Admin: 12/01/18 14:30 Dose: 650 mg Sodium Chloride (Sodium Chloride 0.9%) 1,000 mls @ 100 mls/hr IV .Q10H [facility]DA Last Admin: 12/02/18 19:33 Dose: Not Given Piperacillin Sod/Tazobactam Sod (Zosyn 3.375 Gm Iv Premix) 3.375 gm in 50 mls @ 100 mls/hr IVPB Q6 ELDA; Protocol Last Admin: 12/02/18 19:33 Dose: 100 mls/hr Vancomycin/Sodium Chloride (Vancomycin 1 Gm/Ns 200 Ml) 1 gm in 200 mls @ 133 mls/hr IVPB DAILY@1700 ELDA; Protocol Stop: 12/05/18 17:01 Last Admin: 12/02/18 17:55 Dose: 133 mls/hr Pantoprazole Sodium (Protonix Ec Tab) 40 mg PO DAILY [facility] Last Admin: 12/02/18 10:32 Dose: 40 mg Tamsulosin HCl (Flomax) 0.4 mg PO BID [facility] Last Admin: 12/02/18 19:33 Dose: 0.4 mg Physical Exam - Head Exam Head Exam: ATRAUMATIC - Eye Exam Eye Exam: Normal appearance - ENT Exam ENT Exam: Mucous Membranes Dry - Respiratory Exam Respiratory Exam: NORMAL BREATHING PATTERN - Cardiovascular Exam Cardiovascular Exam: +S1, +S2 - GI/Abdominal Exam GI & Abdominal Exam: Normal Bowel Sounds - Extremities Exam Extremities exam: Positive for: normal inspection - Neurological Exam Neurological exam: Oriented x3 - Psychiatric Exam Psychiatric exam: Normal Affect, Normal Mood - Skin Skin Exam: Warm Results - Vital Signs Recent Vital Signs: Last Vital Signs Temp 97.9 F 12/02/18 20:00 Pulse 100 H 12/02/18 20:00 Resp 17 12/02/18 20:00 BP 113/52 L 12/02/18 20:00 Pulse Ox 100 12/02/18 20:00 - Labs Result Diagrams: 12/02/18 05:42 12/02/18 05:42 Labs: Laboratory Results - last 24 hr 12/02/18 12/02/18 12/02/18 05:42 05:42 11:48 WBC 0.1 L* D RBC 2.63 L Hgb 7.7 L Hct 23.8 L MCV 90.6 MCH 29.3 MCHC 32.3 L RDW 15.7 H Plt Count 26 L* D Manual Plt Count 21 L* D MPV 8.9 Neut % (Auto) 3.0 L Lymph % (Auto) 30.3 [place] % (Auto) 63.7 H Eos % (Auto) 3.0 Baso % (Auto) 0.0 Neut # (Auto) 0.0 L Lymph # (Auto) 0.0 L [place] # (Auto) 0.1 Eos # (Auto) 0.0 Baso # (Auto) 0.0 Total Counted Cancelled Neutrophils % (Manual) Cancelled Band Neutrophils % Cancelled Lymphocytes % (Manual) Cancelled Reactive Lymphs % Cancelled Monocytes % (Manual) Cancelled Eosinophils % (Manual) Cancelled Basophils % (Manual) Cancelled Metamyelocytes % Cancelled Myelocytes % Cancelled Promyelocytes % Cancelled Blast Cells % Cancelled Plasma Cell % (Manual) Cancelled Nucleated RBC % Cancelled Hypersegmented Polys Cancelled Smudge Cells Cancelled Toxic Granulation Cancelled Dohle Bodies Cancelled Nazanin Rods Cancelled Platelet Estimate Cancelled Plt Clumps, EDTA Cancelled Large Platelets Cancelled Giant Platelets Cancelled RBC Morphology Cancelled Polychromasia Cancelled Hypochromasia (manual) Cancelled Poikilocytosis (manual Cancelled Basophilic Stippling Cancelled Anisocytosis (manual) Cancelled Microcytosis (manual) Cancelled Macrocytosis (manual) Cancelled Spherocytes Cancelled Sickle Cells Cancelled Target Cells Cancelled Tear Drop Cells Cancelled Ovalocytes Cancelled Stomatocytes Cancelled Helmet Cells Cancelled Gunderson-[place] Bodies Cancelled [place] Cells Cancelled Acanthocytes (Spur) Cancelled Rouleaux Cancelled Schistocytes Cancelled Sodium 135 Potassium 3.7 Chloride 108 H Carbon Dioxide 21 L Anion Gap 9 L BUN 27 H Creatinine 0.9 Est GFR ( Amer) > 60 Est GFR (Non-Af Amer) > 60 POC Glucose (mg/dL) 130 H Random Glucose 145 H D Calcium 7.7 L Phosphorus 3.1 Magnesium 1.9 Total Bilirubin 1.5 H AST 10 L ALT 18 L Alkaline Phosphatase 59 Total Protein 5.1 L Albumin 2.6 L Globulin 2.5 Albumin/Globulin Ratio 1.0 Assessment & Plan (1) Pancytopenia Assessment and Plan: secondary to AML transfusion support; goal hgb > 9 and plt > 20,000 no growth factor support neutropenic precautions Status: Acute (2) AML (acute myeloblastic leukemia) Assessment and Plan: on hypomethylating agent decitabine as an outpatient Thank you for this interesting consult. Status: Acute
--- NOTE | 2018-12-02 23:06 | CP.PCM.PN ---
Subjective - Date & Time of Evaluation Date of Evaluation: 12/01/18 Time of Evaluation: 17:00 - Subjective Subjective: Breathing better Objective - Vital Signs/Intake and Output Vital Signs (last 24 hours): Temp Pulse Resp BP Pulse Ox 97.9 F 100 H 17 113/52 L 100 12/02/18 20:00 12/02/18 20:00 12/02/18 20:00 12/02/18 20:00 12/02/18 20:00 Intake and Output: 12/02/18 12/03/18 18:59 06:59 Intake Total 1540 200 Output Total 671 300 Balance 869 -100 - Medications Medications: Current Medications Acetaminophen (Tylenol 325mg Tab) 650 mg PO Q6 PRN PRN Reason: Fever >100.4 F Last Admin: 12/01/18 14:30 Dose: 650 mg Sodium Chloride (Sodium Chloride 0.9%) 1,000 mls @ 100 mls/hr IV .Q10H ELDA Last Admin: 12/02/18 19:33 Dose: Not Given Piperacillin Sod/Tazobactam Sod (Zosyn 3.375 Gm Iv Premix) 3.375 gm in 50 mls @ 100 mls/hr IVPB Q6 ELDA; Protocol Last Admin: 12/02/18 19:33 Dose: 100 mls/hr Vancomycin/Sodium Chloride (Vancomycin 1 Gm/Ns 200 Ml) 1 gm in 200 mls @ 133 mls/hr IVPB DAILY@1700 ELDA; Protocol Stop: 12/05/18 17:01 Last Admin: 12/02/18 17:55 Dose: 133 mls/hr Pantoprazole Sodium (Protonix Ec Tab) 40 mg PO DAILY ELDA Last Admin: 12/02/18 10:32 Dose: 40 mg Tamsulosin HCl (Flomax) 0.4 mg PO BID ELDA Last Admin: 12/02/18 19:33 Dose: 0.4 mg - Labs Labs: 12/02/18 05:42 12/02/18 05:42 PT 14.3 SECONDS (9.7-12.2) H 11/29/18 18:00 INR 1.3 11/29/18 18:00 APTT 34 SECONDS (21-34) 11/29/18 18:00 - Head Exam Head Exam: ATRAUMATIC - Eye Exam Eye Exam: Normal appearance - ENT Exam ENT Exam: Mucous Membranes Dry - Respiratory Exam Respiratory Exam: Decreased Breath Sounds - Cardiovascular Exam Cardiovascular Exam: +S1, +S2 - GI/Abdominal Exam GI & Abdominal Exam: Normal Bowel Sounds Assessment and Plan (1) Pancytopenia Assessment & Plan: secondary to AML transfusion support goal hgb > 9 and plt > 20,000 neutropenic precautions Status: Acute (2) AML (acute myeloblastic leukemia) Assessment & Plan: outpatient treatment Status: Acute
[2018-12-03] MEDS: Sodium Chloride 0.9% 1,000 ML IV SCH ×2 (04:14→14:09)
[2018-12-03] MEDS: Piperacill/Tazo 3.375gm in Dex 3.375 GM/50 ML BAG IVPB SCH ×5 (05:13→23:43)
[2018-12-03 06:09] LABS: EOS % 1.5 % (0.0-4.0); LYMPH # 0.1 K/uL (1.0-4.3); LYMPH % 66.6 % (20.0-40.0); MEAN CELL VOLUME 88.7 fL (80.0-94.0); MEAN CORPUSCULAR HEMOGLOBIN 29.9 pg (27.0-31.0); MEAN CORPUSCULAR HGB CONC 33.7 g/dL (33.0-37.0); MONO # 0.1 K/uL (0.0-0.8); MONO % 30.4 % (0.0-10.0); NEUT % 1.5 % (50.0-75.0); NRBC % 0.3 % (0.0-2.0); RBC 2.33 Mil/uL (4.40-5.90); RED CELL DISTRIBUTION WIDTH 14.9 % (11.5-14.5)
[2018-12-03 06:14] LABS: WHITE BLOOD COUNT 0.2 K/uL (4.8-10.8)
[2018-12-03 06:20] LABS: ALB/GLOB RATIO 0.9 (1.0-2.1); ALBUMIN 2.1 g/dL (3.5-5.0); ALT/SGPT 24 U/L (21-72); AST/SGOT 15 U/L (17-59); BLOOD UREA NITROGEN 30 mg/dL (9-20); CALCIUM 7.5 mg/dl (8.6-10.4); GFR NON-AFRICAN AMERICAN > 60
--- NOTE | 2018-12-03 08:03 | CP.PCM.PN ---
Subjective - Date & Time of Evaluation Date of Evaluation: 12/03/18 Time of Evaluation: 07:00 - Subjective Subjective: Surgery Progress Note for Dr. Nunes. Patient seen and examined at bedside. No acute events reported overnight. Patient stated he is breathing ok, denies SOB breath. patient denies chest pain, n/v, f/c, abdominal pain, dysuria, hematuria. Objective - Vital Signs/Intake and Output Vital Signs (last 24 hours): Temp Pulse Resp BP Pulse Ox 97.8 F 91 H 19 112/48 L 96 12/03/18 04:00 12/03/18 06:00 12/03/18 06:00 12/03/18 05:49 12/03/18 06:00 Intake and Output: 12/03/18 12/03/18 06:59 18:59 Intake Total 1550 Output Total 750 Balance 800 - Medications Medications: Current Medications Acetaminophen (Tylenol 325mg Tab) 650 mg PO Q6 PRN PRN Reason: Fever >100.4 F Last Admin: 12/01/18 14:30 Dose: 650 mg Sodium Chloride (Sodium Chloride 0.9%) 1,000 mls @ 100 mls/hr IV .Q10H ELDA Last Admin: 12/03/18 04:14 Dose: 100 mls/hr Piperacillin Sod/Tazobactam Sod (Zosyn 3.375 Gm Iv Premix) 3.375 gm in 50 mls @ 100 mls/hr IVPB Q6 ELDA; Protocol Last Admin: 12/03/18 05:13 Dose: 100 mls/hr Vancomycin/Sodium Chloride (Vancomycin 1 Gm/Ns 200 Ml) 1 gm in 200 mls @ 133 mls/hr IVPB DAILY@1700 [facility]; Protocol Stop: 12/05/18 17:01 Last Admin: 12/02/18 17:55 Dose: 133 mls/hr Pantoprazole Sodium (Protonix Ec Tab) 40 mg PO DAILY [facility] Last Admin: 12/02/18 10:32 Dose: 40 mg Tamsulosin HCl (Flomax) 0.4 mg PO BID ELDA Last Admin: 12/02/18 19:33 Dose: 0.4 mg - Labs Labs: 12/03/18 05:55 12/03/18 05:55 PT 14.3 SECONDS (9.7-12.2) H 11/29/18 18:00 INR 1.3 11/29/18 18:00 APTT 34 SECONDS (21-34) 11/29/18 18:00 - Constitutional Appears: Non-toxic, No Acute Distress - Head Exam Head Exam: NORMAL INSPECTION - Eye Exam Eye Exam: Normal appearance - Cardiovascular Exam Additional comments: RR - GI/Abdominal Exam GI & Abdominal Exam: Soft - Extremities Exam Extremities Exam: absent: Calf Tenderness - Neurological Exam Neurological Exam: Alert, Awake, Oriented x3 - Psychiatric Exam Psychiatric exam: Normal Mood - Skin Skin Exam: Dry, Intact, Normal Color, Warm Assessment and Plan - Assessment and Plan (Free Text) Assessment: 78M currently w/ pig tail tube on L side, consulted for chest tube Plan: - Consider OR on Thursday if platelets > 50 for chest tube - Further recs per Dr. Manju Costello, PGY 1
[2018-12-03] MEDS: Pantoprazole 40 mg EC Tab PO SCH (09:56)
[2018-12-03] MEDS ORDERED: guaiFENesin 600 mg ER Tab PO ONE ×2 (12:59→14:15)
--- NOTE | 2018-12-03 13:01 | CP.CCUPN ---
<Darell Lauren - Last Filed: 12/03/18 15:06> CCU Subjective - Physician Review Subjective (Free Text): PGY-[address] Eugenia Smith service Patient is seen and examined at bedside. Patient complaining of feeling weak, and not able to get up from bed. Patient admits to abdominal pain on left side. Patient is on NC at this time. Denies fever, chills, chest pain, sob, n/v/d/c or other complaints.Patient's is at bedside. Patient continues to eat well. Critical Care Time Spent (in minutes): 35 CCU Objective - Vital Signs / Intake & Output Vital Signs (Last 4 hours): Vital Signs Pulse Resp BP Pulse Ox 12/03/18 11:00 96 H 26 H 100 12/03/18 10:49 92 H 24 113/40 L 100 12/03/18 10:00 101 H 25 H 100 12/03/18 09:49 97 H 26 H 114/46 L 100 Intake and Output (Last 8hrs): Intake & Output 12/02/18 12/03/18 12/03/18 22:59 06:59 14:59 Intake Total 1250 1000 950 Output Total 570 450 200 Balance 680 550 750 Intake: Intake, IV Amount 900 850 610 Left Forearm 100 10 Left Upper arm 900 750 600 Oral 350 150 340 Output: Chest Tube Drainage 70 0 Left Lateral Chest 70 0 Urine 500 450 200 Urine, Voided 500 450 200 Other: # Bowel Movements 0 0 1 - Physical Exam Head: Positive for: Atraumatic, Normocephalic Pupils: Positive for: PERRL Extroacular Muscles: Positive for: EOMI Conjunctiva: Positive for: Normal Mouth: Positive for: Dry, Other (O2 via NC ) Respiratory/Chest: Positive for: Clear to Auscultation, Other (left chest tube, clean, collecting about 450 cc fluid ). Negative for: Respiratory Distress, Accessory Muscle Use Cardiovascular: Positive for: Regular Rate and Rhythm, Normal S1, S2 Abdomen: Positive for: Normal Bowel Sounds. Negative for: Tenderness, Distention Upper Extremity: Positive for: Normal Inspection. Negative for: Edema Lower Extremity: Positive for: Normal Inspection. Negative for: Edema Neurological: Positive for: CN II-XII Intact, Speech Normal Skin: Positive for: Warm, Dry, Normal Color Psychiatric: Positive for: Alert, Oriented x 3, Normal Insight, Normal Concentration, Normal Affect, Normal Mood - Medications Active Medications: Active Medications Generic Name Dose Route Start Last Admin Trade Name Carly PRN Reason Stop Dose Admin Acetaminophen 650 mg 11/29/18 19:43 12/01/18 14:30 Tylenol 325mg Tab PO 650 mg Q6 PRN Administration Fever >100.4 F Guaifenesin 600 mg 12/03/18 12:59 Mucinex La PO 12/03/18 13:00 ONCE ONE Sodium Chloride 1,000 mls @ 100 mls/hr 11/29/18 19:45 12/03/18 04:14 Sodium Chloride 0.9% IV 100 mls/hr .Q10H ELDA Administration Piperacillin Sod/Tazobactam Sod 3.375 gm in 50 mls @ 100 mls/hr 11/30/18 00:00 12/03/18 12:13 Zosyn 3.375 Gm Iv Premix IVPB 100 mls/hr Q6 ELDA Administration Protocol Vancomycin/Sodium Chloride 1 gm in 200 mls @ 133 mls/hr 11/30/18 17:00 12/02/18 17:55 Vancomycin 1 Gm/Ns 200 Ml IVPB 12/05/18 17:01 133 mls/hr DAILY@1700 ELDA Administration Protocol Pantoprazole Sodium 40 mg 11/30/18 10:00 12/03/18 09:56 Protonix Ec Tab PO 40 mg DAILY ELDA Administration Tamsulosin HCl 0.4 mg 11/30/18 10:00 12/03/18 09:56 Flomax PO 0.4 mg BID ELDA Administration - Patient Studies Lab Studies: Microbiology Studies 11/30/18 10:00 Blood Culture - Preliminary Blood NO GROWTH AFTER 3 DAYS Gram Stain - Final 11/29/18 18:00 Blood Culture - Preliminary Blood NO GROWTH AFTER 3 DAYS 11/29/18 17:30 Blood Culture - Preliminary Blood NO GROWTH AFTER 3 DAYS 12/01/18 18:46 Blood Culture - Preliminary Blood NO GROWTH AFTER 24 HOURS Gram Stain - Final 12/01/18 17:21 Blood Culture - Preliminary Blood NO GROWTH AFTER 24 HOURS Lab Studies 12/03/18 12/03/18 12/01/18 Range/Units 05:55 05:55 15:10 WBC 0.2 L* D (4.8-10.8) K/uL RBC 2.33 L (4.40-5.90) Mil/uL Hgb 7.0 L (12.0-18.0) g/dL Hct 20.7 L (35.0-51.0) % MCV 88.7 (80.0-94.0) fL MCH 29.9 (27.0-31.0) pg MCHC 33.7 (33.0-37.0) g/dL RDW 14.9 H (11.5-14.5) % Plt Count 15 L* D (130-400) K/uL Manual Plt Count 16 L* D (130-400) K/uL MPV 9.0 (7.2-11.7) fL Neut % (Auto) 1.5 L (50.0-75.0) % Lymph % (Auto) 66.6 H (20.0-40.0) % Dawson % (Auto) 30.4 H (0.0-10.0) % Eos % (Auto) 1.5 (0.0-4.0) % Baso % (Auto) 0.0 (0.0-2.0) % Neut # (Auto) 0.0 L (1.8-7.0) K/uL Lymph # (Auto) 0.1 L (1.0-4.3) K/uL Dawson # (Auto) 0.1 (0.0-0.8) K/uL Eos # (Auto) 0.0 (0.0-0.7) K/uL Baso # (Auto) 0.0 (0.0-0.2) K/uL Total Counted Cancelled Neutrophils % (Manual) Cancelled Band Neutrophils % Cancelled Lymphocytes % (Manual) Cancelled Reactive Lymphs % Cancelled Monocytes % (Manual) Cancelled Eosinophils % (Manual) Cancelled Basophils % (Manual) Cancelled Metamyelocytes % Cancelled Myelocytes % Cancelled Promyelocytes % Cancelled Blast Cells % Cancelled Plasma Cell % (Manual) Cancelled Nucleated RBC % Cancelled Hypersegmented Polys Cancelled Smudge Cells Cancelled Toxic Granulation Cancelled Dohle Bodies Cancelled Nazanin Rods Cancelled Platelet Estimate Cancelled Plt Clumps, EDTA Cancelled Large Platelets Cancelled Giant Platelets Cancelled RBC Morphology Cancelled Polychromasia Cancelled Hypochromasia (manual) Cancelled Poikilocytosis (manual Cancelled Basophilic Stippling Cancelled Anisocytosis (manual) Cancelled Microcytosis (manual) Cancelled Macrocytosis (manual) Cancelled Spherocytes Cancelled Sickle Cells Cancelled Target Cells Cancelled Tear Drop Cells Cancelled Ovalocytes Cancelled Stomatocytes Cancelled Helmet Cells Cancelled [place] Bodies Cancelled [place] Cells Cancelled Acanthocytes (Spur) Cancelled Rouleaux Cancelled Schistocytes Cancelled Sodium 136 (132-148) mmol/L Potassium 3.8 (3.6-5.2) mmol/L Chloride 112 H (98-107) mmol/L Carbon Dioxide 20 L (22-30) mmol/L Anion Gap 8 L (10-20) BUN 30 H (9-20) mg/dL Creatinine 0.9 (0.8-1.5) mg/dL Est GFR ( Amer) > 60 Est GFR (Non-Af Amer) > 60 Random Glucose 98 D (75-110) mg/dL Calcium 7.5 L (8.6-10.4) mg/dl Phosphorus 2.0 L (2.5-4.5) mg/dL Magnesium 1.9 (1.6-2.3) mg/dL Total Bilirubin 0.8 (0.2-1.3) mg/dL AST 15 L D (17-59) U/L ALT 24 (21-72) U/L Alkaline Phosphatase 57 (38-126) U/L Total Protein 4.4 L (6.3-8.3) g/dL Albumin 2.1 L (3.5-5.0) g/dL Globulin 2.3 (2.2-3.9) gm/dL Albumin/Globulin Ratio 0.9 L (1.0-2.1) Pathologist Comment [facility] Laboratory Results - last 24 hr 12/01/18 12/03/18 12/03/18 15:10 05:55 05:55 WBC 0.2 L* D RBC 2.33 L Hgb 7.0 L Hct 20.7 L MCV 88.7 MCH 29.9 MCHC 33.7 RDW 14.9 H Plt Count 15 L* D Manual Plt Count 16 L* D MPV 9.0 Neut % (Auto) 1.5 L Lymph % (Auto) 66.6 H Dawson % (Auto) 30.4 H Eos % (Auto) 1.5 Baso % (Auto) 0.0 Neut # (Auto) 0.0 L Lymph # (Auto) 0.1 L Dawson # (Auto) 0.1 Eos # (Auto) 0.0 Baso # (Auto) 0.0 Total Counted Cancelled Neutrophils % (Manual) Cancelled Band Neutrophils % Cancelled Lymphocytes % (Manual) Cancelled Reactive Lymphs % Cancelled Monocytes % (Manual) Cancelled Eosinophils % (Manual) Cancelled Basophils % (Manual) Cancelled Metamyelocytes % Cancelled Myelocytes % Cancelled Promyelocytes % Cancelled Blast Cells % Cancelled Plasma Cell % (Manual) Cancelled Nucleated RBC % Cancelled Hypersegmented Polys Cancelled Smudge Cells Cancelled Toxic Granulation Cancelled Dohle Bodies Cancelled Nazanin Rods Cancelled Platelet Estimate Cancelled Plt Clumps, EDTA Cancelled Large Platelets Cancelled Giant Platelets Cancelled RBC Morphology Cancelled Polychromasia Cancelled Hypochromasia (manual) Cancelled Poikilocytosis (manual Cancelled Basophilic Stippling Cancelled Anisocytosis (manual) Cancelled Microcytosis (manual) Cancelled Macrocytosis (manual) Cancelled Spherocytes Cancelled Sickle Cells Cancelled Target Cells Cancelled Tear Drop Cells Cancelled Ovalocytes Cancelled Stomatocytes Cancelled Helmet Cells Cancelled [place] Bodies Cancelled Terry Cells Cancelled Acanthocytes (Spur) Cancelled Rouleaux Cancelled Schistocytes Cancelled Sodium 136 Potassium 3.8 Chloride 112 H Carbon Dioxide 20 L Anion Gap 8 L BUN 30 H Creatinine 0.9 Est GFR ( Amer) > 60 Est GFR (Non-Af Amer) > 60 Random Glucose 98 D Calcium 7.5 L Phosphorus 2.0 L Magnesium 1.9 Total Bilirubin 0.8 AST 15 L D ALT 24 Alkaline Phosphatase 57 Total Protein 4.4 L Albumin 2.1 L Globulin 2.3 Albumin/Globulin Ratio 0.9 L Pathologist Comment [facility] Radiology Impressions: Radiology Impressions Chest X-Ray 12/02/18 12:54 IMPRESSION: Left pleural catheter is uncoiled and has slightly retracted. Interval decrease in size of persistent moderate hydropneumothorax. Chest CT 12/02/18 13:41 Impression: Cardiomegaly. Small pericardial effusion. Mediastinal adenopathy measuring up to 1 cm. COPD. Right apical calcified scarring/fibrotic changes re-identified. Small bilateral pleural effusions (right greater than left) and associated compressive consolidations. Consolidation evident within the lingula. Right upper lobe bulla. Moderate-sized left-sided pneumothorax. 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 Pneumothorax still observed on chest xray and CT scan on 12/03, Dr Nunes Cardiothorac sx consulted for possible chest tube placement, decreasing platelet count and hemoglobin 12/03, to transfuse 2 platelets units today. Family meeting planned for today with family and Palliative care to discuss plans of care. Neuro AAOx3 no acute issues Cardio Hypotensive, asymptomatic- continue to monitor hold HTN meds for now Pulm left Pneumothorax and left pneumomediastinum on left upper lobe Pigtail tube place on left side of thorax 12/01 am chest Xray - Rt Pneumothorax mild to mod overall volume, Trace left pleural effusion evident 12/02 chest xray - left pleural catherer is uncoiked and slightly retracted, interval decrease in size of persistent moderate hydropneumothorax chest CT 12/02 - small bilateral pleural effusions and associated compressive consolidation, consolidation evident within the lingula and right upper lobe bulla. Moderate sized left sided pneumothorax. Consult - Cardiothoracic surgery to [place] - Dr Nunes - will await for his recs in terms of chest tube placement 100% O2 nonrebreather mask continue to monitor vitals GI HHD supplement - ensure Protonix Renal BUN/Cr stable hx of BPH - cont home flomax Heme/Onc Pancytopenia, hx of newly diagnosed leukemia Hemoglobin downtrending to 7.0 to 7.7 - continue to monitor Platelets down from 24 to 15 this am - will transfuse 2 platelet units today will recheck blood work after transfusion ID Afebrile, HR low 100s WBC 0.2 2/2 hx of AML repeat Blood cx - no growth 24 hours Vanc and Zosyn cont NS @100 cc PPX DVT: SCDS, no chemical anticoagulation indicated due to thrombocytopeia GI - Protonix palliative care consult - goals of care - meeting with family tomorrow 1pm reverse isolation for neutropenia Dispo: Discussion with Palliatiave Care Allyssa and Dr Smith with [facility], explained patient's status and hospital events as well as patient's options considering his prognosis , opportunity to ask questions, [facility] to discuss with brother who is coming from [place], and to let us know about the family decision in terms of goals of care. will follow up with family, palliative care and patient regarding decision. Plan discussed with Dr Sarah aLuren, PGY-1 - Date & Time Date: 12/03/18 Time: 09:00 <Billy Smith - Last Filed: 12/03/18 15:53> CCU Objective - Vital Signs / Intake & Output Vital Signs (Last 4 hours): Vital Signs Temp Pulse Resp BP Pulse Ox 12/03/18 14:00 104 H 27 H 100 12/03/18 13:49 100 H 22 96/45 L 100 12/03/18 13:00 96 H 25 H 100 12/03/18 12:49 95 H 26 H 102/38 L 12/03/18 12:00 99.3 F 98 H 27 H 100 12/03/18 11:49 99 H 27 H 109/40 L 100 Intake and Output (Last 8hrs): Intake & Output 12/03/18 12/03/18 12/03/18 06:59 14:59 22:59 Intake Total 1000 1390 Output Total 450 300 Balance 550 1090 Intake: Intake, IV Amount 850 810 Left Forearm 100 10 Left Upper arm 750 800 Oral 150 580 Output: Chest Tube Drainage 0 Left Lateral Chest 0 Urine 450 300 Urine, Voided 450 300 Other: # Voids Urine, Voided 1 # Bowel Movements 0 1 - Medications Active Medications: Active Medications Generic Name Dose Route Start Last Admin Trade Name Freq PRN Reason Stop Dose Admin Acetaminophen 650 mg 11/29/18 19:43 12/01/18 14:30 Tylenol 325mg Tab PO 650 mg Q6 PRN Administration Fever >100.4 F Sodium Chloride 1,000 mls @ 100 mls/hr 11/29/18 19:45 12/03/18 14:09 Sodium Chloride 0.9% IV 100 mls/hr .Q10H ELDA Administration Piperacillin Sod/Tazobactam Sod 3.375 gm in 50 mls @ 100 mls/hr 11/30/18 00:00 12/03/18 12:13 Zosyn 3.375 Gm Iv Premix IVPB 100 mls/hr Q6 ELDA Administration Protocol Vancomycin/Sodium Chloride 1 gm in 200 mls @ 133 mls/hr 11/30/18 17:00 12/02/18 17:55 Vancomycin 1 Gm/Ns 200 Ml IVPB 12/05/18 17:01 133 mls/hr DAILY@1700 ELDA Administration Protocol Pantoprazole Sodium 40 mg 11/30/18 10:00 12/03/18 09:56 Protonix Ec Tab PO 40 mg DAILY ELDA Administration Tamsulosin HCl 0.4 mg 11/30/18 10:00 12/03/18 09:56 Flomax PO 0.4 mg BID ELDA Administration - Patient Studies Lab Studies: Microbiology Studies 11/30/18 10:00 Blood Culture - Preliminary Blood NO GROWTH AFTER 3 DAYS Gram Stain - Final 11/29/18 18:00 Blood Culture - Preliminary Blood NO GROWTH AFTER 3 DAYS 11/29/18 17:30 Blood Culture - Preliminary Blood NO GROWTH AFTER 3 DAYS 12/01/18 18:46 Blood Culture - Preliminary Blood NO GROWTH AFTER 24 HOURS Gram Stain - Final 12/01/18 17:21 Blood Culture - Preliminary Blood NO GROWTH AFTER 24 HOURS Lab Studies 12/03/18 12/03/18 12/01/18 Range/Units 05:55 05:55 15:10 WBC 0.2 L* D (4.8-10.8) K/uL RBC 2.33 L (4.40-5.90) Mil/uL Hgb 7.0 L (12.0-18.0) g/dL Hct 20.7 L (35.0-51.0) % MCV 88.7 (80.0-94.0) fL MCH 29.9 (27.0-31.0) pg MCHC 33.7 (33.0-37.0) g/dL RDW 14.9 H (11.5-14.5) % Plt Count 15 L* D (130-400) K/uL Manual Plt Count 16 L* D (130-400) K/uL MPV 9.0 (7.2-11.7) fL Neut % (Auto) 1.5 L (50.0-75.0) % Lymph % (Auto) 66.6 H (20.0-40.0) % Dawson % (Auto) 30.4 H (0.0-10.0) % Eos % (Auto) 1.5 (0.0-4.0) % Baso % (Auto) 0.0 (0.0-2.0) % Neut # (Auto) 0.0 L (1.8-7.0) K/uL Lymph # (Auto) 0.1 L (1.0-4.3) K/uL Dawson # (Auto) 0.1 (0.0-0.8) K/uL Eos # (Auto) 0.0 (0.0-0.7) K/uL Baso # (Auto) 0.0 (0.0-0.2) K/uL Total Counted Cancelled Neutrophils % (Manual) Cancelled Band Neutrophils % Cancelled Lymphocytes % (Manual) Cancelled Reactive Lymphs % Cancelled Monocytes % (Manual) Cancelled Eosinophils % (Manual) Cancelled Basophils % (Manual) Cancelled Metamyelocytes % Cancelled Myelocytes % Cancelled Promyelocytes % Cancelled Blast Cells % Cancelled Plasma Cell % (Manual) Cancelled Nucleated RBC % Cancelled Hypersegmented Polys Cancelled Smudge Cells Cancelled Toxic Granulation Cancelled Dohle Bodies Cancelled Nazanin Rods Cancelled Platelet Estimate Cancelled Plt Clumps, EDTA Cancelled Large Platelets Cancelled Giant Platelets Cancelled RBC Morphology Cancelled Polychromasia Cancelled Hypochromasia (manual) Cancelled Poikilocytosis (manual Cancelled Basophilic Stippling Cancelled Anisocytosis (manual) Cancelled Microcytosis (manual) Cancelled Macrocytosis (manual) Cancelled Spherocytes Cancelled Sickle Cells Cancelled Target Cells Cancelled Tear Drop Cells Cancelled Ovalocytes Cancelled Stomatocytes Cancelled Helmet Cells Cancelled [place] Bodies Cancelled Terry Cells Cancelled Acanthocytes (Spur) Cancelled Rouleaux Cancelled Schistocytes Cancelled Sodium 136 (132-148) mmol/L Potassium 3.8 (3.6-5.2) mmol/L Chloride 112 H (98-107) mmol/L Carbon Dioxide 20 L (22-30) mmol/L Anion Gap 8 L (10-20) BUN 30 H (9-20) mg/dL Creatinine 0.9 (0.8-1.5) mg/dL Est GFR ( Amer) > 60 Est GFR (Non-Af Amer) > 60 Random Glucose 98 D (75-110) mg/dL Calcium 7.5 L (8.6-10.4) mg/dl Phosphorus 2.0 L (2.5-4.5) mg/dL Magnesium 1.9 (1.6-2.3) mg/dL Total Bilirubin 0.8 (0.2-1.3) mg/dL AST 15 L D (17-59) U/L ALT 24 (21-72) U/L Alkaline Phosphatase 57 (38-126) U/L Total Protein 4.4 L (6.3-8.3) g/dL Albumin 2.1 L (3.5-5.0) g/dL Globulin 2.3 (2.2-3.9) gm/dL Albumin/Globulin Ratio 0.9 L (1.0-2.1) Pathologist Comment [facility] Laboratory Results - last 24 hr 12/01/18 12/03/18 12/03/18 15:10 05:55 05:55 WBC 0.2 L* D RBC 2.33 L Hgb 7.0 L Hct 20.7 L MCV 88.7 MCH 29.9 MCHC 33.7 RDW 14.9 H Plt Count 15 L* D Manual Plt Count 16 L* D MPV 9.0 Neut % (Auto) 1.5 L Lymph % (Auto) 66.6 H Dawson % (Auto) 30.4 H Eos % (Auto) 1.5 Baso % (Auto) 0.0 Neut # (Auto) 0.0 L Lymph # (Auto) 0.1 L Dawson # (Auto) 0.1 Eos # (Auto) 0.0 Baso # (Auto) 0.0 Total Counted Cancelled Neutrophils % (Manual) Cancelled Band Neutrophils % Cancelled Lymphocytes % (Manual) Cancelled Reactive Lymphs % Cancelled Monocytes % (Manual) Cancelled Eosinophils % (Manual) Cancelled Basophils % (Manual) Cancelled Metamyelocytes % Cancelled Myelocytes % Cancelled Promyelocytes % Cancelled Blast Cells % Cancelled Plasma Cell % (Manual) Cancelled Nucleated RBC % Cancelled Hypersegmented Polys Cancelled Smudge Cells Cancelled Toxic Granulation Cancelled Dohle Bodies Cancelled Nazanin Rods Cancelled Platelet Estimate Cancelled Plt Clumps, EDTA Cancelled Large Platelets Cancelled Giant Platelets Cancelled RBC Morphology Cancelled Polychromasia Cancelled Hypochromasia (manual) Cancelled Poikilocytosis (manual Cancelled Basophilic Stippling Cancelled Anisocytosis (manual) Cancelled Microcytosis (manual) Cancelled Macrocytosis (manual) Cancelled Spherocytes Cancelled Sickle Cells Cancelled Target Cells Cancelled Tear Drop Cells Cancelled Ovalocytes Cancelled Stomatocytes Cancelled Helmet Cells Cancelled [place] Bodies Cancelled [place] Cells Cancelled Acanthocytes (Spur) Cancelled Rouleaux Cancelled Schistocytes Cancelled Sodium 136 Potassium 3.8 Chloride 112 H Carbon Dioxide 20 L Anion Gap 8 L BUN 30 H Creatinine 0.9 Est GFR ( Amer) > 60 Est GFR (Non-Af Amer) > 60 Random Glucose 98 D Calcium 7.5 L Phosphorus 2.0 L Magnesium 1.9 Total Bilirubin 0.8 AST 15 L D ALT 24 Alkaline Phosphatase 57 Total Protein 4.4 L Albumin 2.1 L Globulin 2.3 Albumin/Globulin Ratio 0.9 L Pathologist Comment [facility] Radiology Impressions: Radiology Impressions Chest X-Ray 12/02/18 12:54 IMPRESSION: Left pleural catheter is uncoiled and has slightly retracted. Interval decrease in size of persistent moderate hydropneumothorax. Chest CT 12/02/18 13:41 Impression: Cardiomegaly. Small pericardial effusion. Mediastinal adenopathy measuring up to 1 cm. COPD. Right apical calcified scarring/fibrotic changes re-identified. Small bilateral pleural effusions (right greater than left) and associated compressive consolidations. Consolidation evident within the lingula. Right upper lobe bulla. Moderate-sized left-sided pneumothorax. Critical Care Progress Note - Nutrition Nutrition: Nutrition Category Date Time Status Regular Diet [DIET] Diets 12/01/18 Dinner Active Attending/Attestation - Attestation I have personally seen and examined this patient.: Yes I have fully participated in the care of the patient.: Yes I have reviewed all pertinent clinical information: Yes Notes (Text): 12/03/18 15:46 I have seen and examined the patient. Medical records, lab studies, and imaging were reviewed by me and a management plan was formulated on multidisciplinary rounds with resident Dr. Lauren. I agree with their documented assessment and plan. Patient is in respiratory distress. His lung is not re-expanding with the current pigtail catheter. He will need a large bore chest tube, but platelets are too low, so we are transfusing platelets to get them above 50. Thoracic has scheduled for placement and pleurodesis on Thursday. This will be a palliative measure. The patient is slowly deteriorating, we had a conversation with the daughter today, who wants to further discuss with her brother. Considering DNR/DNI and hospice care. Critical Care Time 35 minutes. Multi-disciplinary rounds were performed with house staff, nursing, speech therapy, respiratory therapy, pharmacy and nutrition with integrated input from the primary team/attending and other consulting services. The documented time is cumulative and includes review of patient data/exams/labs/chart review and examination of the patient on rounds and throughout the day; time is exclusive of any procedures or teaching time.
--- NOTE | 2018-12-03 13:38 | CP.PCM.PN ---
Subjective - Date & Time of Evaluation Date of Evaluation: 12/03/18 Time of Evaluation: 13:33 - Subjective Subjective: Patient seen in bed, admits to be feeling tired and wanted to sleep. Patient is receiving Plasma transfusion for Platelets of 15 this morning. WBC 0.2 and Hb dropped to 7.0 today. BP 113/40, HR 96, RR 26, afebrile. Patient seen by Doctor Diamante last night. Chemo Tx still on hold due to low WBC. Left chest tube in place. Left lung still not re expended well and placement of 2 ndary larger tube is being considered. Patient was not willing for this interventions and wanted to discuss ikt with hs family as well as a Code status. Family meting held today attended by daughter Sameera . Objective - Vital Signs/Intake and Output Vital Signs (last 24 hours): Temp Pulse Resp BP Pulse Ox 99.3 F 96 H 25 H 102/38 L 100 12/03/18 12:00 12/03/18 13:00 12/03/18 13:00 12/03/18 12:49 12/03/18 13:00 Intake and Output: 12/03/18 12/03/18 06:59 18:59 Intake Total 1550 1390 Output Total 750 300 Balance 800 1090 - Medications Medications: Current Medications Acetaminophen (Tylenol 325mg Tab) 650 mg PO Q6 PRN PRN Reason: Fever >100.4 F Last Admin: 12/01/18 14:30 Dose: 650 mg Sodium Chloride (Sodium Chloride 0.9%) 1,000 mls @ 100 mls/hr IV .Q10H ELDA Last Admin: 12/03/18 04:14 Dose: 100 mls/hr Piperacillin Sod/Tazobactam Sod (Zosyn 3.375 Gm Iv Premix) 3.375 gm in 50 mls @ 100 mls/hr IVPB Q6 ELDA; Protocol Last Admin: 12/03/18 12:13 Dose: 100 mls/hr Vancomycin/Sodium Chloride (Vancomycin 1 Gm/Ns 200 Ml) 1 gm in 200 mls @ 133 mls/hr IVPB DAILY@1700 ELDA; Protocol Stop: 12/05/18 17:01 Last Admin: 12/02/18 17:55 Dose: 133 mls/hr Pantoprazole Sodium (Protonix Ec Tab) 40 mg PO DAILY ELDA Last Admin: 12/03/18 09:56 Dose: 40 mg Tamsulosin HCl (Flomax) 0.4 mg PO BID ELDA Last Admin: 12/03/18 09:56 Dose: 0.4 mg - Labs Labs: 12/03/18 05:55 12/03/18 05:55 PT 14.3 SECONDS (9.7-12.2) H 11/29/18 18:00 INR 1.3 11/29/18 18:00 APTT 34 SECONDS (21-34) 11/29/18 18:00 - Constitutional Appears: In Acute Distress, Chronically Ill - Head Exam Head Exam: ATRAUMATIC, NORMAL INSPECTION, NORMOCEPHALIC - Eye Exam Eye Exam: EOMI, Normal appearance, PERRL Pupil Exam: NORMAL ACCOMODATION, PERRL - ENT Exam ENT Exam: Mucous Membranes Dry - Neck Exam Neck Exam: Normal Inspection - Respiratory Exam Respiratory Exam: Decreased Breath Sounds Additional comments: tachypnea - Cardiovascular Exam Cardiovascular Exam: Tachycardia - GI/Abdominal Exam GI & Abdominal Exam: Soft, Diminished Bowel Sounds - Rectal Exam Rectal Exam: Deferred - Exam Exam: NORMAL INSPECTION - Extremities Exam Extremities Exam: Normal Inspection - Back Exam Back Exam: NORMAL INSPECTION - Neurological Exam Neurological Exam: Alert, Oriented x3 Neuro motor strength exam: Left Upper Extremity: 2/1, Right Upper Extremity: 2/1, Left Lower Extremity: 2/1, Right Lower Extremity: 2/1 - Psychiatric Exam Psychiatric exam: Flat Affect - Skin Skin Exam: Dry, Intact, Pallor Assessment and Plan - Assessment and Plan (Free Text) Assessment: Patient's daughter Sameera present for family meeting. Meeting joined by Do beth Juan and Doctor Lauren. Before the Doctors arrived I reviewed patient's condition and elicited daughter's understanding. The daughter asked to move away from the bed and continue discussion there. She felt that her father is overwhelmed by Physical symptoms and not ready to discuss goals of care. I updated daughter on most recent blood result and Platelets transfusion. I reviewed my discussion with her father and mother yesterday ,involving a Code status discussion. I explained that due to very serious diagnosis patient's wishes for end of life care should be known ahead of time. Sameera stated understanding and admitted that her father as well as a family were still in shock since diagnosis in September and they all felt more time was needed before the decision was made. The daughter stated being well aware of patient's main diagnosis, his pnumothorax and the need for chest tube.Doctor Cervantes discussed patient's intention no to have a further aggressive procedure which involves larger chest tube placement. The daughter Sameera is awaiting for her brother who was coming from [place] to be present when goals of care were discussed. Doctor Cervantes stressed out that prognosis was guarded and it was important to understand how patient felt about more aggressive interventions or he was simply tired and wanted comfort care only. The decision about secondary , larger chest tube was to be made by Thursday for surgery on Thursday. Impression * Newly diagnosed AML * Anemia due to primary diagnosis * Severe neutropenia * Thrombocytopenia * Generalized weakness * Patient is with significant anxiety and is requesting family assistance in deciding on goals of care Suggestion * Symptoms control * Reverse isolation * Reassure patient of care provided * Family to assist patient in deciding on goals of care * I feel that comfort care would be best level of care for this very sick patent, family is still to decide on this * DNR/DNI would be appropriate Code status for this patient. I could not imagine this patient being intubated and on MV support in this poor condition. Advance care planing 35 min. Palliative care will remain in stand by to assist as needed.
[2018-12-03 16:03] LABS: ABG ALLEN TEST POS; ARTERIAL BLOOD GAS HCO3 21.9 mmol/L (21-28); ARTERIAL BLOOD GAS HEMOGLOBIN 7.5 g/dL (11.7-17.4); ARTERIAL BLOOD GAS O2 SAT 100.2 % (95-98); ARTERIAL BLOOD GAS PCO2 31 mm/Hg (35-45); ARTERIAL BLOOD GAS PH 7.42 (7.35-7.45); ARTERIAL BLOOD GAS PO2 179 mm/Hg (80-100); ARTERIAL BLOOD GAS TCO2 21.1 mmol/L (22-28)
[2018-12-03] MEDS: Vancomycin 1 gm/NS 200 ml 1 GM/200 ML BAG IVPB SCH (16:58)
[2018-12-03] MEDS ORDERED: DiphenhydrAMINE 50 mg/ml Inj IVP STA (20:24)
[2018-12-04] MEDS: Sodium Chloride 0.9% 1,000 ML IV SCH ×2 (03:31→09:00)
[2018-12-04] MEDS: Piperacill/Tazo 3.375gm in Dex 3.375 GM/50 ML BAG IVPB SCH ×3 (05:12→17:11)
[2018-12-04 06:21] LABS: MEAN CELL VOLUME 89.4 fL (80.0-94.0); MEAN CORPUSCULAR HEMOGLOBIN 29.4 pg (27.0-31.0); MEAN CORPUSCULAR HGB CONC 32.9 g/dL (33.0-37.0); RBC 2.08 Mil/uL (4.40-5.90); RED CELL DISTRIBUTION WIDTH 14.6 % (11.5-14.5)
[2018-12-04 06:34] LABS: WHITE BLOOD COUNT 0.2 K/uL (4.8-10.8)
[2018-12-04 06:35] LABS: HEMOGLOBIN 6.1 g/dL (12.0-18.0)
[2018-12-04 06:36] LABS: ALB/GLOB RATIO 0.9 (1.0-2.1); ALBUMIN 2.1 g/dL (3.5-5.0); ALT/SGPT 27 U/L (21-72); AST/SGOT 19 U/L (17-59); BLOOD UREA NITROGEN 24 mg/dL (9-20); CALCIUM 7.6 mg/dl (8.6-10.4); GFR NON-AFRICAN AMERICAN > 60
[2018-12-04] MEDS ORDERED: DiphenhydrAMINE 50 mg/ml Inj IVP PRN (08:16)
[2018-12-04] MEDS: Pantoprazole 40 mg EC Tab PO SCH (10:09)
[2018-12-04 10:11] LABS: EOS % 7.4 % (0.0-4.0); LYMPH # 0.1 K/uL (1.0-4.3); LYMPH % 39.8 % (20.0-40.0); MONO # 0.1 K/uL (0.0-0.8); MONO % 47.2 % (0.0-10.0); NEUT % 5.6 % (50.0-75.0); NRBC % 1.3 % (0.0-2.0)
--- NOTE | 2018-12-04 12:16 | RAD ---
Chest x-ray single frontal view HISTORY: Pneumothorax. Comparison: 12/02/2018 Findings: Left-sided pigtail catheter at the left costophrenic angle. Persistent small left sided pneumothorax. Rounded lucency again noted at the right lung apex. Diffuse increased interstitial lung markings. Confluent masslike consolidation in the lateral aspect of the left mid to lower lung zone. Increased consolidative changes within the right mid to lower lung zone. Cardiomegaly. Degenerative changes in the spine and shoulders. Impression: Left-sided pigtail catheter at the left costophrenic angle. Persistent small left sided pneumothorax. Rounded lucency again noted at the right lung apex. Diffuse increased interstitial lung markings. Confluent masslike consolidation in the lateral aspect of the left mid to lower lung zone. Increased consolidative changes within the right mid to lower lung zone. Cardiomegaly.
[2018-12-04] MEDS: Vancomycin 1 gm/NS 200 ml 1 GM/200 ML BAG IVPB SCH (16:00)
--- NOTE | 2018-12-04 17:48 | CP.CCUPN ---
CCU Subjective - Physician Review Events Since Last Encounter (Free Text): 12/04/18 17:47 breathing better today. CCU Objective - Vital Signs / Intake & Output Vital Signs (Last 4 hours): Vital Signs Temp Pulse Resp BP Pulse Ox 12/04/18 17:15 97.5 F L 79 23 123/52 L 12/04/18 16:45 97.6 F 80 26 H 119/51 L 12/04/18 16:30 97.6 F 84 24 119/49 L 12/04/18 16:15 97.6 F 84 24 119/49 L 12/04/18 16:13 84 22 128/55 L 100 12/04/18 16:00 97.4 F L 86 27 H 100 12/04/18 15:58 76 25 H 114/50 L 100 12/04/18 15:28 78 26 H 117/50 L 99 12/04/18 15:15 97.2 F L 82 17 118/49 L 12/04/18 15:13 83 17 118/49 L 100 12/04/18 15:00 81 21 107/45 L 98 12/04/18 14:44 81 17 114/50 L 99 12/04/18 14:28 87 25 H 115/50 L 100 12/04/18 14:15 97.4 F L 87 22 102/54 L 12/04/18 14:13 87 24 102/54 L 99 12/04/18 14:00 85 25 H 99 12/04/18 13:58 88 24 110/46 L 100 Intake and Output (Last 8hrs): Intake & Output 12/04/18 12/04/18 12/04/18 06:59 14:59 22:59 Intake Total 1247 1100 625 Output Total 750 Balance 497 1100 625 Intake: Intake, IV Amount 800 850 200 Left Upper arm 800 850 200 Oral 240 Blood Product 207 250 425 Apheresis Plts Acda Lr 207 2nd Con Unit [id number] Red Blood Cells Cpd As1 0 325 Lr Unit [id number] Red Blood Cells Cpd As1 0 Lr Unit [id number] Output: Chest Tube Drainage 100 Left Lateral Chest 100 Urine 650 Urine, Voided 650 Other: # Bowel Movements 0 - Physical Exam Head: Positive for: Atraumatic, Normocephalic Pupils: Positive for: PERRL Extroacular Muscles: Positive for: EOMI Conjunctiva: Positive for: Normal Mouth: Positive for: Dry, Other (O2 via NC ) Respiratory/Chest: Positive for: Clear to Auscultation, Other (left chest tube, clean, collecting about 450 cc fluid ). Negative for: Respiratory Distress, Accessory Muscle Use Cardiovascular: Positive for: Regular Rate and Rhythm, Normal S1, S2 Abdomen: Positive for: Normal Bowel Sounds. Negative for: Tenderness, Distention Upper Extremity: Positive for: Normal Inspection. Negative for: Edema Lower Extremity: Positive for: Normal Inspection. Negative for: Edema Neurological: Positive for: CN II-XII Intact, Speech Normal Skin: Positive for: Warm, Dry, Normal Color Psychiatric: Positive for: Alert, Oriented x 3, Normal Insight, Normal Concentration, Normal Affect, Normal Mood - Medications Active Medications: Active Medications Generic Name Dose Route Start Last Admin Trade Name Freq PRN Reason Stop Dose Admin Acetaminophen 650 mg 11/29/18 19:43 12/04/18 11:44 Tylenol 325mg Tab PO 650 mg Q6 PRN Administration Fever >100.4 F Albuterol/Ipratropium 3 ml 12/04/18 13:54 Duoneb 3 Mg/0.5 Mg (3 Ml) Ud INH RQ6 PRN Shortness of Breath Diphenhydramine HCl 25 mg 12/04/18 09:09 12/04/18 11:44 Benadryl PO 25 mg DAILY PRN Administration pre-transfusion Hydrocortisone Sodium Succinate 50 mg 12/04/18 10:00 12/04/18 11:43 Solu-Cortef IV 50 mg DAILY PRN Administration pre-transfusion Sodium Chloride 1,000 mls @ 100 mls/hr 11/29/18 19:45 12/04/18 09:00 Sodium Chloride 0.9% IV Not Given .Q10H ELDA Piperacillin Sod/Tazobactam Sod 3.375 gm in 50 mls @ 100 mls/hr 11/30/18 00:00 12/04/18 17:11 Zosyn 3.375 Gm Iv Premix IVPB 100 mls/hr Q6 ELDA Administration Protocol Vancomycin/Sodium Chloride 1 gm in 200 mls @ 133 mls/hr 11/30/18 17:00 12/04/18 16:00 Vancomycin 1 Gm/Ns 200 Ml IVPB 12/05/18 17:01 133 mls/hr DAILY@1700 ELDA Administration Protocol Pantoprazole Sodium 40 mg 11/30/18 10:00 12/04/18 10:09 Protonix Ec Tab PO 40 mg DAILY ELDA Administration Tamsulosin HCl 0.4 mg 11/30/18 10:00 12/04/18 17:10 Flomax PO 0.4 mg BID ELDA Administration - Patient Studies Lab Studies: Microbiology Studies 12/01/18 17:21 Blood Culture - Preliminary Blood NO GROWTH AFTER 3 DAYS 11/30/18 10:00 Blood Culture - Preliminary Blood NO GROWTH AFTER 4 DAYS Gram Stain - Final 11/29/18 18:00 Blood Culture - Preliminary Blood NO GROWTH AFTER 4 DAYS 11/29/18 17:30 Blood Culture - Preliminary Blood NO GROWTH AFTER 4 DAYS 12/01/18 18:46 Blood Culture - Preliminary Blood NO GROWTH AFTER 48 HOURS Gram Stain - Final Lab Studies 12/04/18 12/04/18 12/04/18 Range/Units 09:21 06:07 06:07 WBC 0.2 L* (4.8-10.8) K/uL RBC 2.08 L (4.40-5.90) Mil/uL Hgb 6.1 L* (12.0-18.0) g/dL Hct 18.6 L (35.0-51.0) % MCV 89.4 (80.0-94.0) fL MCH 29.4 (27.0-31.0) pg MCHC 32.9 L (33.0-37.0) g/dL RDW 14.6 H (11.5-14.5) % Plt Count 29 L* D (130-400) K/uL Manual Plt Count 20 L* (130-400) K/uL MPV 9.0 (7.2-11.7) fL Neut % (Auto) 5.6 L (50.0-75.0) % Lymph % (Auto) 39.8 (20.0-40.0) % Park % (Auto) 47.2 H (0.0-10.0) % Eos % (Auto) 7.4 H (0.0-4.0) % Baso % (Auto) 0.0 (0.0-2.0) % Neut # (Auto) 0.0 L (1.8-7.0) K/uL Lymph # (Auto) 0.1 L (1.0-4.3) K/uL Park # (Auto) 0.1 (0.0-0.8) K/uL Eos # (Auto) 0.0 (0.0-0.7) K/uL Baso # (Auto) 0.0 (0.0-0.2) K/uL Total Counted Cancelled Neutrophils % (Manual) Cancelled Band Neutrophils % Cancelled Lymphocytes % (Manual) Cancelled Reactive Lymphs % Cancelled Monocytes % (Manual) Cancelled Eosinophils % (Manual) Cancelled Basophils % (Manual) Cancelled Metamyelocytes % Cancelled Myelocytes % Cancelled Promyelocytes % Cancelled Blast Cells % Cancelled Plasma Cell % (Manual) Cancelled Nucleated RBC % Cancelled Hypersegmented Polys Cancelled Smudge Cells Cancelled Toxic Granulation Cancelled Dohle Bodies Cancelled Nazanin Rods Cancelled Platelet Estimate Cancelled Plt Clumps, EDTA Cancelled Large Platelets Cancelled Giant Platelets Cancelled RBC Morphology Cancelled Polychromasia Cancelled Hypochromasia (manual) Cancelled Poikilocytosis (manual Cancelled Basophilic Stippling Cancelled Anisocytosis (manual) Cancelled Microcytosis (manual) Cancelled Macrocytosis (manual) Cancelled Spherocytes Cancelled Sickle Cells Cancelled Target Cells Cancelled Tear Drop Cells Cancelled Ovalocytes Cancelled Stomatocytes Cancelled Helmet Cells Cancelled Gunderson-[place] Seminary Bodies Cancelled Terry Cells Cancelled Acanthocytes (Spur) Cancelled Rouleaux Cancelled Schistocytes Cancelled Sodium 137 (132-148) mmol/L Potassium 3.8 (3.6-5.2) mmol/L Chloride 111 H (98-107) mmol/L Carbon Dioxide 23 (22-30) mmol/L Anion Gap 7 L (10-20) BUN 24 H (9-20) mg/dL Creatinine 0.7 L (0.8-1.5) mg/dL Est GFR ( Amer) > 60 Est GFR (Non-Af Amer) > 60 Random Glucose 127 H D (75-110) mg/dL Calcium 7.6 L (8.6-10.4) mg/dl Total Bilirubin 2.0 H (0.2-1.3) mg/dL AST 19 (17-59) U/L ALT 27 (21-72) U/L Alkaline Phosphatase 125 (38-126) U/L Total Protein 4.4 L (6.3-8.3) g/dL Albumin 2.1 L (3.5-5.0) g/dL Globulin 2.3 (2.2-3.9) gm/dL Albumin/Globulin Ratio 0.9 L (1.0-2.1) Blood Type B POSITIVE Antibody Screen Negative Laboratory Results - last 24 hr 12/04/18 12/04/18 12/04/18 06:07 06:07 09:21 WBC 0.2 L* RBC 2.08 L Hgb 6.1 L* Hct 18.6 L MCV 89.4 MCH 29.4 MCHC 32.9 L RDW 14.6 H Plt Count 29 L* D Manual Plt Count 20 L* MPV 9.0 Neut % (Auto) 5.6 L Lymph % (Auto) 39.8 Park % (Auto) 47.2 H Eos % (Auto) 7.4 H Baso % (Auto) 0.0 Neut # (Auto) 0.0 L Lymph # (Auto) 0.1 L Park # (Auto) 0.1 Eos # (Auto) 0.0 Baso # (Auto) 0.0 Total Counted Cancelled Neutrophils % (Manual) Cancelled Band Neutrophils % Cancelled Lymphocytes % (Manual) Cancelled Reactive Lymphs % Cancelled Monocytes % (Manual) Cancelled Eosinophils % (Manual) Cancelled Basophils % (Manual) Cancelled Metamyelocytes % Cancelled Myelocytes % Cancelled Promyelocytes % Cancelled Blast Cells % Cancelled Plasma Cell % (Manual) Cancelled Nucleated RBC % Cancelled Hypersegmented Polys Cancelled Smudge Cells Cancelled Toxic Granulation Cancelled Dohle Bodies Cancelled Nazanin Rods Cancelled Platelet Estimate Cancelled Plt Clumps, EDTA Cancelled Large Platelets Cancelled Giant Platelets Cancelled RBC Morphology Cancelled Polychromasia Cancelled Hypochromasia (manual) Cancelled Poikilocytosis (manual Cancelled Basophilic Stippling Cancelled Anisocytosis (manual) Cancelled Microcytosis (manual) Cancelled Macrocytosis (manual) Cancelled Spherocytes Cancelled Sickle Cells Cancelled Target Cells Cancelled Tear Drop Cells Cancelled Ovalocytes Cancelled Stomatocytes Cancelled Helmet Cells Cancelled Gunderson-[place] Seminary Bodies Cancelled [place] Cells Cancelled Acanthocytes (Spur) Cancelled Rouleaux Cancelled Schistocytes Cancelled Sodium 137 Potassium 3.8 Chloride 111 H Carbon Dioxide 23 Anion Gap 7 L BUN 24 H Creatinine 0.7 L Est GFR ( Amer) > 60 Est GFR (Non-Af Amer) > 60 Random Glucose 127 H D Calcium 7.6 L Total Bilirubin 2.0 H AST 19 ALT 27 Alkaline Phosphatase 125 Total Protein 4.4 L Albumin 2.1 L Globulin 2.3 Albumin/Globulin Ratio 0.9 L Blood Type B POSITIVE Antibody Screen Negative Radiology Impressions: Radiology Impressions Chest X-Ray 12/04/18 10:55 Impression: Left-sided pigtail catheter at the left costophrenic angle. Persistent small left sided pneumothorax. Rounded lucency again noted at the right lung apex. Diffuse increased interstitial lung markings. Confluent masslike consolidation in the lateral aspect of the left mid to lower lung zone. Increased consolidative changes within the right mid to lower lung zone. Cardiomegaly. Review of Systems - Review of Systems All systems: reviewed and no additional remarkable complaints except - Respiratory Respiratory: Dyspnea Critical Care Progress Note - Nutrition Nutrition: Nutrition Category Date Time Status NPO Diet [DIET] Diets 12/06/18 Breakfast Active Regular Diet [DIET] Diets 12/01/18 Dinner Active Assessment/Plan (1) Pneumothorax Assessment and plan: 78 year old make with pmhx of newly diagnosed AML, HTN, BPH that came to ED yesterday for fever, weakness and decreased apetite and malaise. Hospital course c/b recurrent spontaneous pneumothorax. Neuro: alert and oriented x 3 Pulm: pigtail catheter in place, lung is slowly re-expanding. Oxygen requirements decreasing. Patient planned to receive chest tube with pleurodesis on Thursday, for palliative intervention. CV: hemodynamically stable Hem: severe anemia and thrombocytopenia secondary to AML, received 2 units PRBC and 2 Platelets today. Patient has to be pre-medicated before transfusion, has transfusion reaction. Renal: no acute issues Endo: no acute issues GI: regular diet ID: pneumonia with neutropenia, continue zosyn and vanco. DVT proph - SCD's, a/c held with increased risk of bleeding with severe thromboc ytopenia GI proph - protonix Code status - Full code Critical Care Time spent 35 minutes Multi-disciplinary rounds were performed with house staff, nursing, speech therapy, respiratory therapy, pharmacy and nutrition with integrated input from the primary team/attending and other consulting services. The documented time is cumulative and includes review of patient data/exams/labs/chart review and examination of the patient on rounds and throughout the day; time is exclusive of any procedures or teaching time. Current Visit: Yes Status: Acute
--- NOTE | 2018-12-04 19:30 | CP.PCM.PN ---
Subjective - Date & Time of Evaluation Date of Evaluation: 12/04/18 Time of Evaluation: 08:45 - Subjective Subjective: Medicine progress note ( Dr. Montoya's service) Patient was seen and examined at bedside. Patient was in good spirit and states that he is doing well. Patient denies any acute issues or complaints. Objective - Vital Signs/Intake and Output Vital Signs (last 24 hours): Temp Pulse Resp BP Pulse Ox 97.3 F L 88 25 H 135/56 L 99 12/04/18 18:45 12/04/18 18:45 12/04/18 18:45 12/04/18 18:45 12/04/18 18:00 Intake and Output: 12/04/18 12/05/18 18:59 06:59 Intake Total 2575 Balance 2575 - Medications Medications: Current Medications Acetaminophen (Tylenol 325mg Tab) 650 mg PO Q6 PRN PRN Reason: Fever >100.4 F Last Admin: 12/04/18 11:44 Dose: 650 mg Albuterol/Ipratropium (Duoneb 3 Mg/0.5 Mg (3 Ml) Ud) 3 ml INH RQ6 PRN PRN Reason: Shortness of Breath Diphenhydramine HCl (Benadryl) 25 mg PO DAILY PRN PRN Reason: pre-transfusion Last Admin: 12/04/18 11:44 Dose: 25 mg Hydrocortisone Sodium Succinate (Solu-Cortef) 50 mg IV DAILY PRN PRN Reason: pre-transfusion Last Admin: 12/04/18 11:43 Dose: 50 mg Piperacillin Sod/Tazobactam Sod (Zosyn 3.375 Gm Iv Premix) 3.375 gm in 50 mls @ 100 mls/hr IVPB Q6 ELDA; Protocol Last Admin: 12/04/18 17:11 Dose: 100 mls/hr Vancomycin/Sodium Chloride (Vancomycin 1 Gm/Ns 200 Ml) 1 gm in 200 mls @ 133 mls/hr IVPB DAILY@1700 ELDA; Protocol Stop: 12/05/18 17:01 Last Admin: 12/04/18 16:00 Dose: 133 mls/hr Pantoprazole Sodium (Protonix Ec Tab) 20 mg PO DAILY ELDA Tamsulosin HCl (Flomax) 0.4 mg PO BID ELDA Last Admin: 12/04/18 17:10 Dose: 0.4 mg - Labs Labs: 12/04/18 06:07 12/04/18 06:07 PT 14.3 SECONDS (9.7-12.2) H 11/29/18 18:00 INR 1.3 11/29/18 18:00 APTT 34 SECONDS (21-34) 11/29/18 18:00 - Constitutional Appears: No Acute Distress - Head Exam Head Exam: ATRAUMATIC - Eye Exam Eye Exam: EOMI - Respiratory Exam Respiratory Exam: NORMAL BREATHING PATTERN Additional comments: Left chest tube in place with drainage - Cardiovascular Exam Cardiovascular Exam: REGULAR RHYTHM, +S1, +S2 - GI/Abdominal Exam GI & Abdominal Exam: Soft, Normal Bowel Sounds. absent: Distended, Firm, Guarding, Rigid, Tenderness - Extremities Exam Extremities Exam: absent: Pedal Edema - Neurological Exam Neurological Exam: Alert, Awake, Oriented x3 - Psychiatric Exam Psychiatric exam: Normal Affect - Skin Skin Exam: Normal Color Assessment and Plan (1) Pneumothorax Assessment & Plan: Consultation: * Dr Nunes Cardiothoracic--> Help appreciated Left chest tube in place 12/01 am chest Xray - Rt Pneumothorax mild to mod overall volume, Trace left pleural effusion evident 12/02 chest xray - left pleural catherer is uncoiked and slightly retracted, interval decrease in size of persistent moderate hydropneumothorax chest CT 12/02 - small bilateral pleural effusions and associated compressive consolidation, consolidation evident within the lingula and right upper lobe bulla. Moderate sized left sided pneumothorax. Consult - Cardiothoracic surgery to jose - Dr Nunes - will await for his recs in terms of chest tube placement 100% O2 nonrebreather mask continue to monitor vitals Status: Acute (2) Pancytopenia Assessment & Plan: Secondary to AML Hematology/Oncology, Dr. Bobby---> On board * F/u recommendation * Transfusion as needed * goal hgb > 9 and plt > 20,000 * neutropenic precautions * Continue to monitor with labs Status: Acute (3) BPH (benign prostatic hyperplasia) Assessment & Plan: Flomax 0.4mg PO daily Status: Acute (4) Fever Assessment & Plan: BC negative Vancomycin 1gm iv daily Zosyn 3.375gm Q8H Status: Acute (5) Prophylactic measure Assessment & Plan: GI: Protonix 20mg PO daily DVT: Chemical agent contraindicated in light of pancytopenia All plans and management discussed with Dr. Montoya Status: Acute
--- NOTE | 2018-12-04 19:40 | CP.PCM.PN ---
Subjective - Date & Time of Evaluation Date of Evaluation: 12/03/18 Time of Evaluation: 12:00 - Subjective Subjective: Breathing better. Objective - Vital Signs/Intake and Output Vital Signs (last 24 hours): Temp Pulse Resp BP Pulse Ox 97.3 F L 88 25 H 135/56 L 99 12/04/18 18:45 12/04/18 18:45 12/04/18 18:45 12/04/18 18:45 12/04/18 18:00 Intake and Output: 12/04/18 12/05/18 18:59 06:59 Intake Total 2575 Output Total 750 Balance 1825 - Medications Medications: Current Medications Acetaminophen (Tylenol 325mg Tab) 650 mg PO Q6 PRN PRN Reason: Fever >100.4 F Last Admin: 12/04/18 11:44 Dose: 650 mg Albuterol/Ipratropium (Duoneb 3 Mg/0.5 Mg (3 Ml) Ud) 3 ml INH RQ6 PRN PRN Reason: Shortness of Breath Diphenhydramine HCl (Benadryl) 25 mg PO DAILY PRN PRN Reason: pre-transfusion Last Admin: 12/04/18 11:44 Dose: 25 mg Hydrocortisone Sodium Succinate (Solu-Cortef) 50 mg IV DAILY PRN PRN Reason: pre-transfusion Last Admin: 12/04/18 11:43 Dose: 50 mg Piperacillin Sod/Tazobactam Sod (Zosyn 3.375 Gm Iv Premix) 3.375 gm in 50 mls @ 100 mls/hr IVPB Q6 ELDA; Protocol Last Admin: 12/04/18 17:11 Dose: 100 mls/hr Vancomycin/Sodium Chloride (Vancomycin 1 Gm/Ns 200 Ml) 1 gm in 200 mls @ 133 mls/hr IVPB DAILY@1700 ELDA; Protocol Stop: 12/05/18 17:01 Last Admin: 12/04/18 16:00 Dose: 133 mls/hr Pantoprazole Sodium (Protonix Ec Tab) 20 mg PO DAILY ELDA Tamsulosin HCl (Flomax) 0.4 mg PO BID ELDA Last Admin: 12/04/18 17:10 Dose: 0.4 mg - Labs Labs: 12/04/18 06:07 12/04/18 06:07 PT 14.3 SECONDS (9.7-12.2) H 11/29/18 18:00 INR 1.3 11/29/18 18:00 APTT 34 SECONDS (21-34) 11/29/18 18:00 - Head Exam Head Exam: ATRAUMATIC - Eye Exam Eye Exam: Normal appearance - ENT Exam ENT Exam: Mucous Membranes Dry - Respiratory Exam Respiratory Exam: Decreased Breath Sounds - Cardiovascular Exam Cardiovascular Exam: +S1, +S2 - GI/Abdominal Exam GI & Abdominal Exam: Normal Bowel Sounds Assessment and Plan (1) Pancytopenia Assessment & Plan: secondary to AML transfusion support goal hgb > 9 and plt > 20,000 neutropenic precautions Status: Acute (2) AML (acute myeloblastic leukemia) Assessment & Plan: outpatient treatment Status: Acute
--- NOTE | 2018-12-04 19:41 | CP.PCM.PN ---
Subjective - Date & Time of Evaluation Date of Evaluation: 12/04/18 Time of Evaluation: 18:00 - Subjective Subjective: Breathing better Objective - Vital Signs/Intake and Output Vital Signs (last 24 hours): Temp Pulse Resp BP Pulse Ox 97.3 F L 88 25 H 135/56 L 99 12/04/18 18:45 12/04/18 18:45 12/04/18 18:45 12/04/18 18:45 12/04/18 18:00 Intake and Output: 12/04/18 12/05/18 18:59 06:59 Intake Total 2575 Output Total 750 Balance 1825 - Medications Medications: Current Medications Acetaminophen (Tylenol 325mg Tab) 650 mg PO Q6 PRN PRN Reason: Fever >100.4 F Last Admin: 12/04/18 11:44 Dose: 650 mg Albuterol/Ipratropium (Duoneb 3 Mg/0.5 Mg (3 Ml) Ud) 3 ml INH RQ6 PRN PRN Reason: Shortness of Breath Diphenhydramine HCl (Benadryl) 25 mg PO DAILY PRN PRN Reason: pre-transfusion Last Admin: 12/04/18 11:44 Dose: 25 mg Hydrocortisone Sodium Succinate (Solu-Cortef) 50 mg IV DAILY PRN PRN Reason: pre-transfusion Last Admin: 12/04/18 11:43 Dose: 50 mg Piperacillin Sod/Tazobactam Sod (Zosyn 3.375 Gm Iv Premix) 3.375 gm in 50 mls @ 100 mls/hr IVPB Q6 [facility]; Protocol Last Admin: 12/04/18 17:11 Dose: 100 mls/hr Vancomycin/Sodium Chloride (Vancomycin 1 Gm/Ns 200 Ml) 1 gm in 200 mls @ 133 mls/hr IVPB DAILY@1700 [facility]; Protocol Stop: 12/05/18 17:01 Last Admin: 12/04/18 16:00 Dose: 133 mls/hr Pantoprazole Sodium (Protonix Ec Tab) 20 mg PO DAILY [facility] Tamsulosin HCl (Flomax) 0.4 mg PO BID [facility] Last Admin: 12/04/18 17:10 Dose: 0.4 mg - Labs Labs: 12/04/18 06:07 12/04/18 06:07 PT 14.3 SECONDS (9.7-12.2) H 11/29/18 18:00 INR 1.3 11/29/18 18:00 APTT 34 SECONDS (21-34) 11/29/18 18:00 - Head Exam Head Exam: ATRAUMATIC - Eye Exam Eye Exam: Normal appearance - ENT Exam ENT Exam: Mucous Membranes Dry - Respiratory Exam Respiratory Exam: NORMAL BREATHING PATTERN - Cardiovascular Exam Cardiovascular Exam: +S1, +S2 - GI/Abdominal Exam GI & Abdominal Exam: Normal Bowel Sounds Assessment and Plan (1) Pancytopenia Assessment & Plan: secondary to AML transfusion support goal hgb > 9 and plt > 20,000 neutropenic precautions Status: Acute (2) AML (acute myeloblastic leukemia) Assessment & Plan: outpatient treatment Status: Acute
[2018-12-05] MEDS: Piperacill/Tazo 3.375gm in Dex 3.375 GM/50 ML BAG IVPB SCH ×4 (00:15→18:23)
[2018-12-05 05:47] LABS: HEMOGLOBIN 7.9 g/dL (12.0-18.0); MEAN CORPUSCULAR HEMOGLOBIN 29.4 pg (27.0-31.0); MEAN PLATELET VOLUME 8.6 fL (7.2-11.7); RBC 2.7 Mil/uL (4.40-5.90); RED CELL DISTRIBUTION WIDTH 14.8 % (11.5-14.5)
[2018-12-05 05:57] LABS: WHITE BLOOD COUNT 0.2 K/uL (4.8-10.8)
[2018-12-05 06:20] LABS: ALB/GLOB RATIO 0.9 (1.0-2.1); ALBUMIN 2.1 g/dL (3.5-5.0); ALT/SGPT 30 U/L (21-72); AST/SGOT 17 U/L (17-59); BLOOD UREA NITROGEN 27 mg/dL (9-20); CALCIUM 7.8 mg/dl (8.6-10.4); GFR NON-AFRICAN AMERICAN > 60
[2018-12-05 07:21] LABS: EOS % 0.6 % (0.0-4.0); LYMPH # 0.1 K/uL (1.0-4.3); LYMPH % 69.3 % (20.0-40.0); MONO # 0.1 K/uL (0.0-0.8); MONO % 27.6 % (0.0-10.0); NEUT % 2.5 % (50.0-75.0); NRBC % 1.6 % (0.0-2.0)
[2018-12-05] MEDS: Albuterol-Ipratrop 3 mg / 0.5 (3 ml) UD INH PRN ×2 (07:30→13:06)
[2018-12-05] MEDS: Pantoprazole 20 mg EC Tab PO SCH (09:26)
[2018-12-05] MEDS: Benzocaine/Menthol (Cepacol) Lozenge MT PRN ×2 (11:17→18:24)
[2018-12-05] MEDS: guaiFENesin 100 mg/5 ml Syrup UD PO PRN ×2 (11:17→18:24)
--- NOTE | 2018-12-05 14:52 | CP.CCUPN ---
CCU Subjective - Physician Review Events Since Last Encounter (Free Text): 12/05/18 14:53 alert and oriented, had a long discussion about goals of care. Patient wants to be DNR/DNI. He is not sure what he wants to do about treatment of his pneumothorax. CCU Objective - Vital Signs / Intake & Output Vital Signs (Last 4 hours): Vital Signs Pulse Resp BP Pulse Ox 12/05/18 12:00 81 19 100 12/05/18 11:53 97 H 28 H 123/38 L 12/05/18 11:00 108 H 23 62 L 12/05/18 10:53 89 27 H 122/43 L 97 Intake and Output (Last 8hrs): Intake & Output 12/04/18 12/05/18 12/05/18 22:59 06:59 14:59 Intake Total 2025 100 480 Output Total 750 420 250 Balance 1275 -320 230 Intake: Intake, IV Amount 450 100 50 Left Hand 50 Left Upper arm 450 100 Oral 330 Tube Feeding 100 Blood Product 1575 Red Blood Cells Cpd As1 325 Lr Unit [id number] Red Blood Cells Cpd As1 325 Lr Unit [id number] Output: Chest Tube Drainage 50 20 Left Lateral Chest 50 20 Urine 700 400 250 Urine, Voided 700 400 250 Other: # Voids Urine, Voided 1 1 # Bowel Movements 0 - Physical Exam Head: Positive for: Atraumatic, Normocephalic Pupils: Positive for: PERRL Extroacular Muscles: Positive for: EOMI Conjunctiva: Positive for: Normal Mouth: Positive for: Dry, Other (O2 via NC ) Respiratory/Chest: Positive for: Clear to Auscultation, Other (left chest tube, clean, collecting about 450 cc fluid ). Negative for: Respiratory Distress, Accessory Muscle Use Cardiovascular: Positive for: Regular Rate and Rhythm, Normal S1, S2 Abdomen: Positive for: Normal Bowel Sounds. Negative for: Tenderness, Distention Upper Extremity: Positive for: Normal Inspection. Negative for: Edema Lower Extremity: Positive for: Normal Inspection. Negative for: Edema Neurological: Positive for: CN II-XII Intact, Speech Normal Skin: Positive for: Warm, Dry, Normal Color Psychiatric: Positive for: Alert, Oriented x 3, Normal Insight, Normal Concentration, Normal Affect, Normal Mood - Medications Active Medications: Active Medications Generic Name Dose Route Start Last Admin Trade Name Freq PRN Reason Stop Dose Admin Acetaminophen 650 mg 11/29/18 19:43 12/04/18 11:44 Tylenol 325mg Tab PO 650 mg Q6 PRN Administration Fever >100.4 F Albuterol/Ipratropium 3 ml 12/04/18 13:54 12/05/18 13:06 Duoneb 3 Mg/0.5 Mg (3 Ml) Ud INH 3 ml RQ6 PRN Administration Shortness of Breath Benzocaine/Menthol 1 miguel 12/05/18 10:14 12/05/18 11:17 Cepacol Sore Throat MT 1 miguel Q4H PRN Administration Sore Throat Diphenhydramine HCl 25 mg 12/04/18 09:09 12/04/18 11:44 Benadryl PO 25 mg DAILY PRN Administration pre-transfusion Guaifenesin 100 mg 12/05/18 10:14 12/05/18 11:17 Robitussin PO 100 mg Q4H PRN Administration Cough Hydrocortisone Sodium Succinate 50 mg 12/04/18 10:00 12/04/18 11:43 Solu-Cortef IV 50 mg DAILY PRN Administration pre-transfusion Piperacillin Sod/Tazobactam Sod 3.375 gm in 50 mls @ 100 mls/hr 11/30/18 00:00 12/05/18 11:17 Zosyn 3.375 Gm Iv Premix IVPB 100 mls/hr Q6 [facility] Administration Protocol Vancomycin/Sodium Chloride 1 gm in 200 mls @ 133 mls/hr 11/30/18 17:00 12/04/18 16:00 Vancomycin 1 Gm/Ns 200 Ml IVPB 12/05/18 17:01 133 mls/hr DAILY@1700 [facility] Administration Protocol Pantoprazole Sodium 20 mg 12/05/18 10:00 12/05/18 09:26 Protonix Ec Tab PO 20 mg DAILY [facility] Administration Tamsulosin HCl 0.4 mg 11/30/18 10:00 12/05/18 09:26 Flomax PO 0.4 mg BID [facility]DA Administration - Patient Studies Lab Studies: Microbiology Studies 11/30/18 10:00 Blood Culture - Final Blood NO GROWTH AFTER 5 DAYS Gram Stain - Final 11/29/18 18:00 Blood Culture - Final Blood NO GROWTH AFTER 5 DAYS Gram Stain - Final TEST NOT PERFORMED 11/29/18 17:30 Blood Culture - Final Blood NO GROWTH AFTER 5 DAYS Gram Stain - Final TEST NOT PERFORMED 12/01/18 18:46 Blood Culture - Preliminary Blood NO GROWTH AFTER 3 DAYS Gram Stain - Final 12/01/18 17:21 Blood Culture - Preliminary Blood NO GROWTH AFTER 3 DAYS Lab Studies 12/05/18 12/05/18 12/05/18 Range/Units 08:00 05:42 05:42 WBC 0.2 L* (4.8-10.8) K/uL RBC 2.70 L (4.40-5.90) Mil/uL Hgb 7.9 L (12.0-18.0) g/dL Hct 24.0 L (35.0-51.0) % MCV 89.0 (80.0-94.0) fL MCH 29.4 (27.0-31.0) pg MCHC 33.0 (33.0-37.0) g/dL RDW 14.8 H (11.5-14.5) % Plt Count 42 L (130-400) K/uL Manual Plt Count 30 L* D (130-400) K/uL MPV 8.6 (7.2-11.7) fL Neut % (Auto) 2.5 L (50.0-75.0) % Lymph % (Auto) 69.3 H (20.0-40.0) % Power % (Auto) 27.6 H (0.0-10.0) % Eos % (Auto) 0.6 (0.0-4.0) % Baso % (Auto) 0.0 (0.0-2.0) % Neut # (Auto) 0.0 L (1.8-7.0) K/uL Lymph # (Auto) 0.1 L (1.0-4.3) K/uL Power # (Auto) 0.1 (0.0-0.8) K/uL Eos # (Auto) 0.0 (0.0-0.7) K/uL Baso # (Auto) 0.0 (0.0-0.2) K/uL Total Counted Cancelled Neutrophils % (Manual) Cancelled Band Neutrophils % Cancelled Lymphocytes % (Manual) Cancelled Reactive Lymphs % Cancelled Monocytes % (Manual) Cancelled Eosinophils % (Manual) Cancelled Basophils % (Manual) Cancelled Metamyelocytes % Cancelled Myelocytes % Cancelled Promyelocytes % Cancelled Blast Cells % Cancelled Plasma Cell % (Manual) Cancelled Nucleated RBC % Cancelled Hypersegmented Polys Cancelled Smudge Cells Cancelled Toxic Granulation Cancelled Dohle Bodies Cancelled Nazanin Rods Cancelled Platelet Estimate Cancelled Plt Clumps, EDTA Cancelled Large Platelets Cancelled Giant Platelets Cancelled RBC Morphology Cancelled Polychromasia Cancelled Hypochromasia (manual) Cancelled Poikilocytosis (manual Cancelled Basophilic Stippling Cancelled Anisocytosis (manual) Cancelled Microcytosis (manual) Cancelled Macrocytosis (manual) Cancelled Spherocytes Cancelled Sickle Cells Cancelled Target Cells Cancelled Tear Drop Cells Cancelled Ovalocytes Cancelled Stomatocytes Cancelled Helmet Cells Cancelled [place] Bodies Cancelled [place] Cells Cancelled Acanthocytes (Spur) Cancelled Rouleaux Cancelled Schistocytes Cancelled Sodium 138 (132-148) mmol/L Potassium 3.7 (3.6-5.2) mmol/L Chloride 110 H (98-107) mmol/L Carbon Dioxide 24 (22-30) mmol/L Anion Gap 7 L (10-20) BUN 27 H (9-20) mg/dL Creatinine 0.8 (0.8-1.5) mg/dL Est GFR ( Amer) > 60 Est GFR (Non-Af Amer) > 60 Random Glucose 105 (75-110) mg/dL Calcium 7.8 L (8.6-10.4) mg/dl Phosphorus 2.2 L (2.5-4.5) mg/dL Magnesium 2.0 (1.6-2.3) mg/dL Total Bilirubin 1.6 H (0.2-1.3) mg/dL AST 17 (17-59) U/L ALT 30 (21-72) U/L Alkaline Phosphatase 83 (38-126) U/L Total Protein 4.2 L (6.3-8.3) g/dL Albumin 2.1 L (3.5-5.0) g/dL Globulin 2.2 (2.2-3.9) gm/dL Albumin/Globulin Ratio 0.9 L (1.0-2.1) Blood Type Antibody Screen 12/04/18 Range/Units 09:21 WBC (4.8-10.8) K/uL RBC (4.40-5.90) Mil/uL Hgb (12.0-18.0) g/dL Hct (35.0-51.0) % MCV (80.0-94.0) fL MCH (27.0-31.0) pg MCHC (33.0-37.0) g/dL RDW (11.5-14.5) % Plt Count (130-400) K/uL Manual Plt Count (130-400) K/uL MPV (7.2-11.7) fL Neut % (Auto) (50.0-75.0) % Lymph % (Auto) (20.0-40.0) % Power % (Auto) (0.0-10.0) % Eos % (Auto) (0.0-4.0) % Baso % (Auto) (0.0-2.0) % Neut # (Auto) (1.8-7.0) K/uL Lymph # (Auto) (1.0-4.3) K/uL Power # (Auto) (0.0-0.8) K/uL Eos # (Auto) (0.0-0.7) K/uL Baso # (Auto) (0.0-0.2) K/uL Total Counted Neutrophils % (Manual) Band Neutrophils % Lymphocytes % (Manual) Reactive Lymphs % Monocytes % (Manual) Eosinophils % (Manual) Basophils % (Manual) Metamyelocytes % Myelocytes % Promyelocytes % Blast Cells % Plasma Cell % (Manual) Nucleated RBC % Hypersegmented Polys Smudge Cells Toxic Granulation Dohle Bodies Nazanin Rods Platelet Estimate Plt Clumps, EDTA Large Platelets Giant Platelets RBC Morphology Polychromasia Hypochromasia (manual) Poikilocytosis (manual Basophilic Stippling Anisocytosis (manual) Microcytosis (manual) Macrocytosis (manual) Spherocytes Sickle Cells Target Cells Tear Drop Cells Ovalocytes Stomatocytes Helmet Cells [place] Bodies Terry Cells Acanthocytes (Spur) Rouleaux Schistocytes Sodium (132-148) mmol/L Potassium (3.6-5.2) mmol/L Chloride (98-107) mmol/L Carbon Dioxide (22-30) mmol/L Anion Gap (10-20) BUN (9-20) mg/dL Creatinine (0.8-1.5) mg/dL Est GFR ( Amer) Est GFR (Non-Af Amer) Random Glucose (75-110) mg/dL Calcium (8.6-10.4) mg/dl Phosphorus (2.5-4.5) mg/dL Magnesium (1.6-2.3) mg/dL Total Bilirubin (0.2-1.3) mg/dL AST (17-59) U/L ALT (21-72) U/L Alkaline Phosphatase (38-126) U/L Total Protein (6.3-8.3) g/dL Albumin (3.5-5.0) g/dL Globulin (2.2-3.9) gm/dL Albumin/Globulin Ratio (1.0-2.1) Blood Type B POSITIVE Antibody Screen Negative Laboratory Results - last 24 hr 12/04/18 12/05/18 12/05/18 09:21 05:42 05:42 WBC 0.2 L* RBC 2.70 L Hgb 7.9 L Hct 24.0 L MCV 89.0 MCH 29.4 MCHC 33.0 RDW 14.8 H Plt Count 42 L Manual Plt Count 30 L* D MPV 8.6 Neut % (Auto) 2.5 L Lymph % (Auto) 69.3 H Power % (Auto) 27.6 H Eos % (Auto) 0.6 Baso % (Auto) 0.0 Neut # (Auto) 0.0 L Lymph # (Auto) 0.1 L Power # (Auto) 0.1 Eos # (Auto) 0.0 Baso # (Auto) 0.0 Total Counted Cancelled Neutrophils % (Manual) Cancelled Band Neutrophils % Cancelled Lymphocytes % (Manual) Cancelled Reactive Lymphs % Cancelled Monocytes % (Manual) Cancelled Eosinophils % (Manual) Cancelled Basophils % (Manual) Cancelled Metamyelocytes % Cancelled Myelocytes % Cancelled Promyelocytes % Cancelled Blast Cells % Cancelled Plasma Cell % (Manual) Cancelled Nucleated RBC % Cancelled Hypersegmented Polys Cancelled Smudge Cells Cancelled Toxic Granulation Cancelled Dohle Bodies Cancelled Nazanin Rods Cancelled Platelet Estimate Cancelled Plt Clumps, EDTA Cancelled Large Platelets Cancelled Giant Platelets Cancelled RBC Morphology Cancelled Polychromasia Cancelled Hypochromasia (manual) Cancelled Poikilocytosis (manual Cancelled Basophilic Stippling Cancelled Anisocytosis (manual) Cancelled Microcytosis (manual) Cancelled Macrocytosis (manual) Cancelled Spherocytes Cancelled Sickle Cells Cancelled Target Cells Cancelled Tear Drop Cells Cancelled Ovalocytes Cancelled Stomatocytes Cancelled Helmet Cells Cancelled [place] Bodies Cancelled Terry Cells Cancelled Acanthocytes (Spur) Cancelled Rouleaux Cancelled Schistocytes Cancelled Sodium 138 Potassium 3.7 Chloride 110 H Carbon Dioxide 24 Anion Gap 7 L BUN 27 H Creatinine 0.8 Est GFR ( Amer) > 60 Est GFR (Non-Af Amer) > 60 Random Glucose 105 Calcium 7.8 L Phosphorus Magnesium Total Bilirubin 1.6 H AST 17 ALT 30 Alkaline Phosphatase 83 Total Protein 4.2 L Albumin 2.1 L Globulin 2.2 Albumin/Globulin Ratio 0.9 L Blood Type B POSITIVE Antibody Screen Negative 12/05/18 08:00 WBC RBC Hgb Hct MCV MCH MCHC RDW Plt Count Manual Plt Count MPV Neut % (Auto) Lymph % (Auto) Power % (Auto) Eos % (Auto) Baso % (Auto) Neut # (Auto) Lymph # (Auto) Power # (Auto) Eos # (Auto) Baso # (Auto) Total Counted Neutrophils % (Manual) Band Neutrophils % Lymphocytes % (Manual) Reactive Lymphs % Monocytes % (Manual) Eosinophils % (Manual) Basophils % (Manual) Metamyelocytes % Myelocytes % Promyelocytes % Blast Cells % Plasma Cell % (Manual) Nucleated RBC % Hypersegmented Polys Smudge Cells Toxic Granulation Dohle Bodies Nazanin Rods Platelet Estimate Plt Clumps, EDTA Large Platelets Giant Platelets RBC Morphology Polychromasia Hypochromasia (manual) Poikilocytosis (manual Basophilic Stippling Anisocytosis (manual) Microcytosis (manual) Macrocytosis (manual) Spherocytes Sickle Cells Target Cells Tear Drop Cells Ovalocytes Stomatocytes Helmet Cells [place] Bodies Terry Cells Acanthocytes (Spur) Rouleaux Schistocytes Sodium Potassium Chloride Carbon Dioxide Anion Gap BUN Creatinine Est GFR ( Amer) Est GFR (Non-Af Amer) Random Glucose Calcium Phosphorus 2.2 L Magnesium 2.0 Total Bilirubin AST ALT Alkaline Phosphatase Total Protein Albumin Globulin Albumin/Globulin Ratio Blood Type Antibody Screen Review of Systems - Review of Systems All systems: reviewed and no additional remarkable complaints except - Respiratory Respiratory: absent: Dyspnea Critical Care Progress Note - Nutrition Nutrition: Nutrition Category Date Time Status NPO Diet [DIET] Diets 12/06/18 Breakfast Active Regular Diet [DIET] Diets 12/01/18 Dinner Active Assessment/Plan (1) Pneumothorax Assessment and plan: 78 year old make with pmhx of newly diagnosed AML, HTN, BPH that came to ED ye sterday for fever, weakness and decreased apetite and malaise. Hospital course c/b recurrent spontaneous pneumothorax. Neuro: alert and oriented x 3 Pulm: pigtail catheter in place, lung is slowly re-expanding. Oxygen requirements decreasing. Patient planned to receive chest tube with pleurodesis on Thursday, for palliative intervention. CV: hemodynamically stable Hem: severe anemia and thrombocytopenia secondary to AML, received 2 units PRBC and 2 Platelets (12/04), 2 more Platelets (12/05) to get platelets above 50 to have larger chest tube placed. Patient has to be pre-medicated before transfusion, has transfusion reaction. Renal: no acute issues Endo: no acute issues GI: regular diet ID: pneumonia with neutropenia, continue zosyn and vanco. DVT proph - SCD's, a/c held with increased risk of bleeding with severe thrombocytopenia GI proph - protonix Code status - DNR/DNI Patient still doesn't know what he wants to do with having a pleurodesis performed. Critical Care Time spent 35 minutes Multi-disciplinary rounds were performed with house staff, nursing, speech therapy, respiratory therapy, pharmacy and nutrition with integrated input from the primary team/attending and other consulting services. The documented time is cumulative and includes review of patient data/exams/labs/chart review and examination of the patient on rounds and throughout the day; time is exclusive of any procedures or teaching time. Current Visit: Yes Status: Acute
[2018-12-05] MEDS: Vancomycin 1 gm/NS 200 ml 1 GM/200 ML BAG IVPB SCH (18:24)
--- NOTE | 2018-12-05 21:14 | CP.PCM.PN ---
Subjective - Date & Time of Evaluation Date of Evaluation: 12/05/18 Time of Evaluation: 09:45 - Subjective Subjective: Medicine progress note ( Dr. Montoya's service) Patient was seen and examined at bedside. Patient remains in good spirit and states that he is doing well. Patient denies any acute issues or complaints. Objective - Vital Signs/Intake and Output Vital Signs (last 24 hours): Temp Pulse Resp BP Pulse Ox 98.1 F 90 25 H 134/63 99 12/05/18 20:00 12/05/18 20:18 12/05/18 20:18 12/05/18 20:18 12/05/18 20:18 Intake and Output: 12/05/18 12/06/18 18:59 06:59 Intake Total 805 100 Output Total 530 0 Balance 275 100 - Medications Medications: Current Medications Acetaminophen (Tylenol 325mg Tab) 650 mg PO Q6 PRN PRN Reason: Fever >100.4 F Last Admin: 12/04/18 11:44 Dose: 650 mg Albuterol/Ipratropium (Duoneb 3 Mg/0.5 Mg (3 Ml) Ud) 3 ml INH RQ6 PRN PRN Reason: Shortness of Breath Last Admin: 12/05/18 13:06 Dose: 3 ml Benzocaine/Menthol (Cepacol Sore Throat) 1 miguel MT Q4H PRN PRN Reason: Sore Throat Last Admin: 12/05/18 18:24 Dose: 1 miguel Diphenhydramine HCl (Benadryl) 25 mg PO DAILY PRN PRN Reason: pre-transfusion Last Admin: 12/04/18 11:44 Dose: 25 mg Guaifenesin (Robitussin) 100 mg PO Q4H PRN PRN Reason: Cough Last Admin: 12/05/18 18:24 Dose: 100 mg Hydrocortisone Sodium Succinate (Solu-Cortef) 50 mg IV DAILY PRN PRN Reason: pre-transfusion Last Admin: 12/04/18 11:43 Dose: 50 mg Piperacillin Sod/Tazobactam Sod (Zosyn 3.375 Gm Iv Premix) 3.375 gm in 50 mls @ 100 mls/hr IVPB Q6 [facility]; Protocol Last Admin: 12/05/18 18:23 Dose: 100 mls/hr Pantoprazole Sodium (Protonix Ec Tab) 20 mg PO DAILY [facility] Last Admin: 12/05/18 09:26 Dose: 20 mg Tamsulosin HCl (Flomax) 0.4 mg PO BID [facility] Last Admin: 12/05/18 18:24 Dose: 0.4 mg - Labs Labs: 12/05/18 05:42 12/05/18 05:42 PT 14.3 SECONDS (9.7-12.2) H 11/29/18 18:00 INR 1.3 11/29/18 18:00 APTT 34 SECONDS (21-34) 11/29/18 18:00 - Constitutional Appears: No Acute Distress - Head Exam Head Exam: ATRAUMATIC - Eye Exam Eye Exam: EOMI - ENT Exam ENT Exam: Mucous Membranes Moist - Respiratory Exam Additional comments: Non-rebreather Left chest tube in place with drainage - Cardiovascular Exam Cardiovascular Exam: REGULAR RHYTHM, +S1, +S2 - GI/Abdominal Exam GI & Abdominal Exam: Soft, Normal Bowel Sounds. absent: Distended, Firm, Guarding, Rigid, Tenderness - Extremities Exam Extremities Exam: Normal Inspection. absent: Calf Tenderness, Pedal Edema - Neurological Exam Neurological Exam: Alert, Awake, Oriented x3 - Psychiatric Exam Psychiatric exam: Normal Affect - Skin Skin Exam: Normal Color Assessment and Plan (1) Pneumothorax Assessment & Plan: Consultation: * Dr Nunes Cardiothoracic--> Help appreciated Left chest tube in place 12/01 am chest Xray - Rt Pneumothorax mild to mod overall volume, Trace left pleural effusion evident 12/02 chest xray - left pleural catherer is uncoiked and slightly retracted, interval decrease in size of persistent moderate hydropneumothorax chest CT 12/02 - small bilateral pleural effusions and associated compressive consolidation, consolidation evident within the lingula and right upper lobe bulla. Moderate sized left sided pneumothorax. Consult - Cardiothoracic surgery to jose - Dr Nunes - will await for his recs in terms of chest tube placement 100% O2 nonrebreather mask continue to monitor vitals Status: Acute (2) Pancytopenia Assessment & Plan: Secondary to AML Hematology/Oncology, Dr. Bobby---> On board * F/u recommendation * Transfusion as needed * goal hgb > 9 and plt > 20,000 * neutropenic precautions * Continue to monitor with labs Status: Acute (3) BPH (benign prostatic hyperplasia) Assessment & Plan: Flomax 0.4mg PO daily Status: Acute (4) Fever Assessment & Plan: BC negative Vancomycin 1gm iv daily (D/C) Zosyn 3.375gm Q8H Status: Acute (5) Prophylactic measure Assessment & Plan: GI: Protonix 20mg PO daily DVT: Chemical agent contraindicated in light of pancytopenia All plans and management discussed with Dr. Montoya Status: Acute
[2018-12-06] MEDS: Piperacill/Tazo 3.375gm in Dex 3.375 GM/50 ML BAG IVPB SCH ×4 (00:25→19:06)
[2018-12-06 06:11] LABS: HEMOGLOBIN 8.6 g/dL (12.0-18.0); MEAN CELL VOLUME 88.8 fL (80.0-94.0); MEAN CORPUSCULAR HEMOGLOBIN 29.6 pg (27.0-31.0); MEAN CORPUSCULAR HGB CONC 33.3 g/dL (33.0-37.0); MEAN PLATELET VOLUME 8.9 fL (7.2-11.7); RBC 2.92 Mil/uL (4.40-5.90); RED CELL DISTRIBUTION WIDTH 14.4 % (11.5-14.5)
[2018-12-06 06:18] LABS: INR 1.2; PROTHROMBIN TIME 13.5 SECONDS (9.7-12.2)
[2018-12-06 06:32] LABS: ALBUMIN 2.4 g/dL (3.5-5.0); ALT/SGPT 32 U/L (21-72); AST/SGOT 21 U/L (17-59); BLOOD UREA NITROGEN 23 mg/dL (9-20); CALCIUM 7.8 mg/dl (8.6-10.4); GFR NON-AFRICAN AMERICAN > 60
[2018-12-06 06:41] LABS: WHITE BLOOD COUNT 0.3 K/uL (4.8-10.8)
--- NOTE | 2018-12-06 07:25 | CP.PCM.PN ---
Subjective - Date & Time of Evaluation Date of Evaluation: 12/05/18 Time of Evaluation: 22:00 - Subjective Subjective: CT Surgery: Dr. Nunes Was called to speak to family regarding possible chest tube procedure. Had an extensive conversation with pt and his two daughters along with other family members at bedside. They expressed concern that, pt does not want a bigger chest tube at this time and they feel that their regards have been disregarded because multiple doctors have spoken to them about the procedure and why it should be done. I answered all their questions and explained in detail the benefits of the procedure vs the risks of not going through with it. They fully understand and at this time do not want any other invasive procedures.They would like to revisit the possibility if his condition worsens. At this time, no further surgical intervention is planned. Please re-consult if needed. Thank You Plan discussed with Dr. Nunes Objective - Vital Signs/Intake and Output Vital Signs (last 24 hours): Temp Pulse Resp BP Pulse Ox 98.1 F 105 H 24 133/57 L 97 12/06/18 04:00 12/06/18 06:00 12/06/18 06:00 12/06/18 05:53 12/06/18 06:00 Intake and Output: 12/06/18 12/06/18 06:59 18:59 Intake Total 1150 Output Total 700 Balance 450 - Medications Medications: Current Medications Acetaminophen (Tylenol 325mg Tab) 650 mg PO Q6 PRN PRN Reason: Fever >100.4 F Last Admin: 12/04/18 11:44 Dose: 650 mg Albuterol/Ipratropium (Duoneb 3 Mg/0.5 Mg (3 Ml) Ud) 3 ml INH RQ6 PRN PRN Reason: Shortness of Breath Last Admin: 12/05/18 13:06 Dose: 3 ml Benzocaine/Menthol (Cepacol Sore Throat) 1 miguel MT Q4H PRN PRN Reason: Sore Throat Last Admin: 12/05/18 18:24 Dose: 1 miguel Diphenhydramine HCl (Benadryl) 25 mg PO DAILY PRN PRN Reason: pre-transfusion Last Admin: 12/04/18 11:44 Dose: 25 mg Guaifenesin (Robitussin) 100 mg PO Q4H PRN PRN Reason: Cough Last Admin: 12/05/18 18:24 Dose: 100 mg Hydrocortisone Sodium Succinate (Solu-Cortef) 50 mg IV DAILY PRN PRN Reason: pre-transfusion Last Admin: 12/04/18 11:43 Dose: 50 mg Piperacillin Sod/Tazobactam Sod (Zosyn 3.375 Gm Iv Premix) 3.375 gm in 50 mls @ 100 mls/hr IVPB Q6 [facility]; Protocol Last Admin: 12/06/18 05:35 Dose: 100 mls/hr Pantoprazole Sodium (Protonix Ec Tab) 20 mg PO DAILY [facility] Last Admin: 12/05/18 09:26 Dose: 20 mg Tamsulosin HCl (Flomax) 0.4 mg PO BID [facility] Last Admin: 12/05/18 18:24 Dose: 0.4 mg - Labs Labs: 12/06/18 06:07 12/06/18 06:05 PT 13.5 SECONDS (9.7-12.2) H 12/06/18 06:07 INR 1.2 12/06/18 06:07 APTT 31 SECONDS (21-34) 12/06/18 06:07
--- NOTE | 2018-12-06 07:46 | CP.PCM.PCO ---
Physician Communication Note - Physician Communication Note Physician Communication Note: At this time, patient and family are refusing any surgical intervention
[2018-12-06 08:51] LABS: EOS % 1.1 % (0.0-4.0); LYMPH # 0.2 K/uL (1.0-4.3); LYMPH % 59.8 % (20.0-40.0); MONO # 0.1 K/uL (0.0-0.8); MONO % 37.2 % (0.0-10.0); NEUT % 1.9 % (50.0-75.0); NRBC % 0.2 % (0.0-2.0)
[2018-12-06] MEDS: Pantoprazole 20 mg EC Tab PO SCH (10:05)
[2018-12-06] MEDS: guaiFENesin 100 mg/5 ml Syrup UD PO PRN ×2 (10:10→15:17)
--- NOTE | 2018-12-06 11:52 | RAD ---
Date of service: 12/06/2018 HISTORY: pneumothorax COMPARISON: 12/04/2018. single-view chest. 12/02/2018 CT thorax. FINDINGS: LUNGS: Stable pulmonary infiltrates PLEURA: Stable pleural effusions. Chest tube identified in the left pleural space, position unchanged compared to the prior study. CARDIOVASCULAR: No atherosclerotic calcification present Normal. OSSEOUS STRUCTURES: No significant abnormalities. VISUALIZED UPPER ABDOMEN: Normal. OTHER FINDINGS: None. IMPRESSION: Stable multifocal and bilateral infiltrates. Stable pleural effusions. Stable position of chest tube in the left pleural space No visible pneumothorax.
--- NOTE | 2018-12-06 12:54 | CP.CCUPN ---
CCU Subjective - Physician Review Subjective (Free Text): PGY-[address] Camacho Armstrong service Patient is seen and examined at bedside. Patient complains of slight shortness of breath. Patient states he has a cough but not producing any sputum. Patient stated he did not sleep last night and is tired. Patient was able to tolerate breakfast this am. Patient denies chest pain, fever, chills, abdominal pain, or headache. Critical Care Time Spent (in minutes): 35 CCU Objective - Vital Signs / Intake & Output Vital Signs (Last 4 hours): Vital Signs Pulse Resp BP Pulse Ox 12/06/18 12:00 88 23 98 12/06/18 11:54 91 H 25 H 134/52 L 94 L 12/06/18 11:00 90 22 97 12/06/18 10:53 95 H 22 131/52 L 96 12/06/18 10:00 99 H 22 97 12/06/18 09:53 97 H 19 144/61 99 12/06/18 09:00 109 H 23 96 Intake and Output (Last 8hrs): Intake & Output 12/05/18 12/06/18 12/06/18 22:59 06:59 14:59 Intake Total 935 540 370 Output Total 480 400 600 Balance 455 140 -230 Intake: Intake, IV Amount 210 300 50 Left Hand 100 50 Left Upper arm 210 200 Oral 725 240 320 Output: Chest Tube Drainage 30 0 Left Lateral Chest 30 0 Urine 450 400 600 Urine, Voided 450 400 600 Other: # Voids Urine, Voided 1 1 - Physical Exam Head: Positive for: Atraumatic, Normocephalic Pupils: Positive for: PERRL Extroacular Muscles: Positive for: EOMI Conjunctiva: Positive for: Normal Mouth: Positive for: Dry, Other (O2 via NC ) Respiratory/Chest: Positive for: Clear to Auscultation, Other (left chest tube, clean, collecting about 450 cc fluid ). Negative for: Respiratory Distress, Accessory Muscle Use Cardiovascular: Positive for: Regular Rate and Rhythm, Normal S1, S2 Abdomen: Positive for: Normal Bowel Sounds. Negative for: Tenderness, Distention Upper Extremity: Positive for: Normal Inspection. Negative for: Edema Lower Extremity: Positive for: Normal Inspection. Negative for: Edema Neurological: Positive for: CN II-XII Intact, Speech Normal Skin: Positive for: Warm, Dry, Normal Color Psychiatric: Positive for: Alert, Oriented x 3, Normal Insight, Normal Concentration, Normal Affect, Normal Mood - Medications Active Medications: Active Medications Generic Name Dose Route Start Last Admin Trade Name Freq PRN Reason Stop Dose Admin Acetaminophen 650 mg 11/29/18 19:43 12/04/18 11:44 Tylenol 325mg Tab PO 650 mg Q6 PRN Administration Fever >100.4 F Albuterol/Ipratropium 3 ml 12/04/18 13:54 12/05/18 13:06 Duoneb 3 Mg/0.5 Mg (3 Ml) Ud INH 3 ml RQ6 PRN Administration Shortness of Breath Benzocaine/Menthol 1 miguel 12/05/18 10:14 12/05/18 18:24 Cepacol Sore Throat MT 1 miguel Q4H PRN Administration Sore Throat Diphenhydramine HCl 25 mg 12/04/18 09:09 12/04/18 11:44 Benadryl PO 25 mg DAILY PRN Administration pre-transfusion Guaifenesin 100 mg 12/05/18 10:14 12/06/18 10:10 Robitussin PO 100 mg Q4H PRN Administration Cough Hydrocortisone Sodium Succinate 50 mg 12/04/18 10:00 12/04/18 11:43 Solu-Cortef IV 50 mg DAILY PRN Administration pre-transfusion Piperacillin Sod/Tazobactam Sod 3.375 gm in 50 mls @ 100 mls/hr 11/30/18 00:00 12/06/18 11:37 Zosyn 3.375 Gm Iv Premix IVPB 100 mls/hr Q6 ELDA Administration Protocol Pantoprazole Sodium 20 mg 12/05/18 10:00 12/06/18 10:05 Protonix Ec Tab PO 20 mg DAILY ELDA Administration Tamsulosin HCl 0.4 mg 11/30/18 10:00 12/06/18 10:05 Flomax PO 0.4 mg BID ELDA Administration - Patient Studies Lab Studies: Microbiology Studies 12/01/18 18:46 Blood Culture - Final Blood No growth. Gram Stain - Final 12/01/18 17:21 Blood Culture - Preliminary Blood NO GROWTH AFTER 4 DAYS 11/30/18 10:00 Blood Culture - Final Blood NO GROWTH AFTER 5 DAYS Gram Stain - Final Lab Studies 12/06/18 12/06/1819 Range/Units 06:07 06:07 06:05 WBC 0.3 L* (4.8-10.8) K/uL RBC 2.92 L (4.40-5.90) Mil/uL Hgb 8.6 L (12.0-18.0) g/dL Hct 25.9 L (35.0-51.0) % MCV 88.8 (80.0-94.0) fL MCH 29.6 (27.0-31.0) pg MCHC 33.3 (33.0-37.0) g/dL RDW 14.4 (11.5-14.5) % Plt Count 46 L (130-400) K/uL Manual Plt Count 44 L (130-400) K/uL MPV 8.9 (7.2-11.7) fL Neut % (Auto) 1.9 L (50.0-75.0) % Lymph % (Auto) 59.8 H (20.0-40.0) % [place] % (Auto) 37.2 H (0.0-10.0) % Eos % (Auto) 1.1 (0.0-4.0) % Baso % (Auto) 0.0 (0.0-2.0) % Neut # (Auto) 0.0 L (1.8-7.0) K/uL Lymph # (Auto) 0.2 L (1.0-4.3) K/uL [place] # (Auto) 0.1 (0.0-0.8) K/uL Eos # (Auto) 0.0 (0.0-0.7) K/uL Baso # (Auto) 0.0 (0.0-0.2) K/uL Total Counted Cancelled Neutrophils % (Manual) Cancelled Band Neutrophils % Cancelled Lymphocytes % (Manual) Cancelled Reactive Lymphs % Cancelled Monocytes % (Manual) Cancelled Eosinophils % (Manual) Cancelled Basophils % (Manual) Cancelled Metamyelocytes % Cancelled Myelocytes % Cancelled Promyelocytes % Cancelled Blast Cells % Cancelled Plasma Cell % (Manual) Cancelled Nucleated RBC % Cancelled Hypersegmented Polys Cancelled Smudge Cells Cancelled Toxic Granulation Cancelled Dohle Bodies Cancelled Nazanin Rods Cancelled Platelet Estimate Cancelled Plt Clumps, EDTA Cancelled Large Platelets Cancelled Giant Platelets Cancelled RBC Morphology Cancelled Polychromasia Cancelled Hypochromasia (manual) Cancelled Poikilocytosis (manual Cancelled Basophilic Stippling Cancelled Anisocytosis (manual) Cancelled Microcytosis (manual) Cancelled Macrocytosis (manual) Cancelled Spherocytes Cancelled Sickle Cells Cancelled Target Cells Cancelled Tear Drop Cells Cancelled Ovalocytes Cancelled Stomatocytes Cancelled Helmet Cells Cancelled [place] Bodies Cancelled Vermillion Cells Cancelled Acanthocytes (Spur) Cancelled Rouleaux Cancelled Schistocytes Cancelled PT 13.5 H (9.7-12.2) SECONDS INR 1.2 APTT 31 (21-34) SECONDS Sodium 138 (132-148) mmol/L Potassium 3.6 (3.6-5.2) mmol/L Chloride 107 (98-107) mmol/L Carbon Dioxide 26 (22-30) mmol/L Anion Gap 8 L (10-20) BUN 23 H (9-20) mg/dL Creatinine 0.7 L (0.8-1.5) mg/dL Est GFR ( Amer) > 60 Est GFR (Non-Af Amer) > 60 Random Glucose 94 (75-110) mg/dL Calcium 7.8 L (8.6-10.4) mg/dl Total Bilirubin 2.3 H (0.2-1.3) mg/dL AST 21 (17-59) U/L ALT 32 (21-72) U/L Alkaline Phosphatase 100 (38-126) U/L Total Protein 4.8 L (6.3-8.3) g/dL Albumin 2.4 L (3.5-5.0) g/dL Globulin 2.4 (2.2-3.9) gm/dL Albumin/Globulin Ratio 1.0 (1.0-2.1) Laboratory Results - last 24 hr 12/06/18 12/06/18 12/06/18 06:05 06:07 06:07 WBC 0.3 L* RBC 2.92 L Hgb 8.6 L Hct 25.9 L MCV 88.8 MCH 29.6 MCHC 33.3 RDW 14.4 Plt Count 46 L Manual Plt Count 44 L MPV 8.9 Neut % (Auto) 1.9 L Lymph % (Auto) 59.8 H [place] % (Auto) 37.2 H Eos % (Auto) 1.1 Baso % (Auto) 0.0 Neut # (Auto) 0.0 L Lymph # (Auto) 0.2 L [place] # (Auto) 0.1 Eos # (Auto) 0.0 Baso # (Auto) 0.0 Total Counted Cancelled Neutrophils % (Manual) Cancelled Band Neutrophils % Cancelled Lymphocytes % (Manual) Cancelled Reactive Lymphs % Cancelled Monocytes % (Manual) Cancelled Eosinophils % (Manual) Cancelled Basophils % (Manual) Cancelled Metamyelocytes % Cancelled Myelocytes % Cancelled Promyelocytes % Cancelled Blast Cells % Cancelled Plasma Cell % (Manual) Cancelled Nucleated RBC % Cancelled Hypersegmented Polys Cancelled Smudge Cells Cancelled Toxic Granulation Cancelled Dohle Bodies Cancelled Nazanin Rods Cancelled Platelet Estimate Cancelled Plt Clumps, EDTA Cancelled Large Platelets Cancelled Giant Platelets Cancelled RBC Morphology Cancelled Polychromasia Cancelled Hypochromasia (manual) Cancelled Poikilocytosis (manual Cancelled Basophilic Stippling Cancelled Anisocytosis (manual) Cancelled Microcytosis (manual) Cancelled Macrocytosis (manual) Cancelled Spherocytes Cancelled Sickle Cells Cancelled Target Cells Cancelled Tear Drop Cells Cancelled Ovalocytes Cancelled Stomatocytes Cancelled Helmet Cells Cancelled [place] Bodies Cancelled Vermillion Cells Cancelled Acanthocytes (Spur) Cancelled Rouleaux Cancelled Schistocytes Cancelled PT 13.5 H INR 1.2 APTT 31 Sodium 138 Potassium 3.6 Chloride 107 Carbon Dioxide 26 Anion Gap 8 L BUN 23 H Creatinine 0.7 L Est GFR ( Amer) > 60 Est GFR (Non-Af Amer) > 60 Random Glucose 94 Calcium 7.8 L Total Bilirubin 2.3 H AST 21 ALT 32 Alkaline Phosphatase 100 Total Protein 4.8 L Albumin 2.4 L Globulin 2.4 Albumin/Globulin Ratio 1.0 Radiology Impressions: Radiology Impressions Chest X-Ray 12/06/18 11:07 IMPRESSION: Stable multifocal and bilateral infiltrates. Stable pleural effusions. Stable position of chest tube in the left pleural space No visible pneumothorax. 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 Neuro - AAOx3 - No acute issues Cardio - Vitals stable, continue to hold HTN medications Pulm - chest xray 12/06: Stable pleural effusions; no pneumothorax, stable multifocal and bilateral infiltrates - Left pigtail in place, output 30mL/24 hours - SpO2 98% on nasal cannula - Duoneb PRN - Robitussin PRN for cough - Patient refusing surgery recommended by Dr. Nunes GI - Regular diet - Dietary Supplements- ensure - Protonix daily for GI ppx Renal - continue monitor BUN/Cr - Flomax for BPH Hem/Onc - WBC 0.2-- Reverse isolation precautions in place - Platelets 46, 2 units plt given 12/04; continue to monitor - Hb 8.6, 2 units PRBC given 12/04; continue to monitor - f/u Dr. Diamante jo ID - Remains Afebrile, Tmax 99.1F - Reverse Isolation Precautions - 12/01 Blood cx-- no growth after 5 days - Continue Zosyn - Tylenol PRN for fever PPX - DVT ppx: Scds, VTE contraindicated for low platelet count - Protonix for GI ppx - Benadryl PRN for pre-transfusion ppx - Patient is now DNR/DNI - follow up palliative care Plan discussed with Dr. Patti Lauren, PGY-1 - Date & Time Date: 12/06/18 Time: 10:00
--- NOTE | 2018-12-06 20:52 | CP.PCM.PN ---
Subjective - Date & Time of Evaluation Date of Evaluation: 12/06/18 Time of Evaluation: 19:00 - Subjective Subjective: No complaints. Objective - Vital Signs/Intake and Output Vital Signs (last 24 hours): Temp Pulse Resp BP Pulse Ox 98.6 F 111 H 22 133/62 91 L 12/06/18 16:00 12/06/18 19:00 12/06/18 19:00 12/06/18 18:54 12/06/18 19:00 Intake and Output: 12/06/18 12/07/18 18:59 06:59 Intake Total 370 Output Total 860 Balance -490 - Medications Medications: Current Medications Acetaminophen (Tylenol 325mg Tab) 650 mg PO Q6 PRN PRN Reason: Fever >100.4 F Last Admin: 12/04/18 11:44 Dose: 650 mg Albuterol/Ipratropium (Duoneb 3 Mg/0.5 Mg (3 Ml) Ud) 3 ml INH RQ6 PRN PRN Reason: Shortness of Breath Last Admin: 12/05/18 13:06 Dose: 3 ml Benzocaine/Menthol (Cepacol Sore Throat) 1 miguel MT Q4H PRN PRN Reason: Sore Throat Last Admin: 12/05/18 18:24 Dose: 1 miguel Diphenhydramine HCl (Benadryl) 25 mg PO DAILY PRN PRN Reason: pre-transfusion Last Admin: 12/04/18 11:44 Dose: 25 mg Guaifenesin (Robitussin) 100 mg PO Q4H PRN PRN Reason: Cough Last Admin: 12/06/18 15:17 Dose: 100 mg Hydrocortisone Sodium Succinate (Solu-Cortef) 50 mg IV DAILY PRN PRN Reason: pre-transfusion Last Admin: 12/04/18 11:43 Dose: 50 mg Piperacillin Sod/Tazobactam Sod (Zosyn 3.375 Gm Iv Premix) 3.375 gm in 50 mls @ 100 mls/hr IVPB Q6 ELDA; Protocol Last Admin: 12/06/18 19:06 Dose: 100 mls/hr Pantoprazole Sodium (Protonix Ec Tab) 20 mg PO DAILY ELDA Last Admin: 12/06/18 10:05 Dose: 20 mg Tamsulosin HCl (Flomax) 0.4 mg PO BID ELDA Last Admin: 12/06/18 19:16 Dose: 0.4 mg - Labs Labs: 12/06/18 06:07 12/06/18 06:05 PT 13.5 SECONDS (9.7-12.2) H 12/06/18 06:07 INR 1.2 12/06/18 06:07 APTT 31 SECONDS (21-34) 12/06/18 06:07 - Head Exam Head Exam: ATRAUMATIC - Eye Exam Eye Exam: Normal appearance - ENT Exam ENT Exam: Mucous Membranes Dry - Respiratory Exam Respiratory Exam: NORMAL BREATHING PATTERN - Cardiovascular Exam Cardiovascular Exam: +S1, +S2 - GI/Abdominal Exam GI & Abdominal Exam: Normal Bowel Sounds Assessment and Plan (1) Pancytopenia Assessment & Plan: secondary to AML transfusion support goal hgb > 9 and plt > 20,000 neutropenic precautions Status: Acute (2) AML (acute myeloblastic leukemia) Assessment & Plan: outpatient treatment Status: Acute
[2018-12-07] MEDS: Piperacill/Tazo 3.375gm in Dex 3.375 GM/50 ML BAG IVPB SCH ×4 (00:15→19:04)
[2018-12-07 06:05] LABS: EOS % 1.3 % (0.0-4.0); HEMOGLOBIN 7.9 g/dL (12.0-18.0); LYMPH # 0.2 K/uL (1.0-4.3); LYMPH % 61.2 % (20.0-40.0); MEAN CELL VOLUME 88.7 fL (80.0-94.0); MEAN CORPUSCULAR HEMOGLOBIN 30.1 pg (27.0-31.0); MEAN CORPUSCULAR HGB CONC 33.9 g/dL (33.0-37.0); MEAN PLATELET VOLUME 9.4 fL (7.2-11.7); MONO # 0.1 K/uL (0.0-0.8); MONO % 33.6 % (0.0-10.0); NEUT % 3.9 % (50.0-75.0); NRBC % 0.2 % (0.0-2.0); RBC 2.62 Mil/uL (4.40-5.90); RED CELL DISTRIBUTION WIDTH 14.1 % (11.5-14.5)
[2018-12-07 06:13] LABS: WHITE BLOOD COUNT 0.4 K/uL (4.8-10.8)
[2018-12-07 06:20] LABS: ALB/GLOB RATIO 0.9 (1.0-2.1); ALBUMIN 2.1 g/dL (3.5-5.0); ALT/SGPT 48 U/L (21-72); AST/SGOT 31 U/L (17-59); BLOOD UREA NITROGEN 19 mg/dL (9-20); CALCIUM 7.6 mg/dl (8.6-10.4); GFR NON-AFRICAN AMERICAN > 60
[2018-12-07] MEDS: Pantoprazole 20 mg EC Tab PO SCH (09:41)
[2018-12-07] MEDS: guaiFENesin 100 mg/5 ml Syrup UD PO PRN ×2 (09:41→21:20)
[2018-12-07] MEDS: Benzocaine/Menthol (Cepacol) Lozenge MT PRN (09:42)
[2018-12-07] MEDS ORDERED: Potassium Chloride 20 mEq ER Tab PO ONE (12:30)
--- NOTE | 2018-12-07 13:59 | CP.CCUPN ---
<Narendra Thurston S - Last Filed: 12/07/18 18:30> CCU Subjective - Physician Review Critical Care Time Spent (in minutes): 40 CCU Objective - Vital Signs / Intake & Output Vital Signs (Last 4 hours): Vital Signs Pulse Resp BP Pulse Ox 12/07/18 16:53 107 H 29 H 126/59 L 96 12/07/18 16:00 109 H 29 H 98 12/07/18 15:53 107 H 28 H 136/52 L 99 12/07/18 15:00 109 H 33 H 98 12/07/18 14:53 106 H 34 H 142/53 L 91 L Intake and Output (Last 8hrs): Intake & Output 12/07/18 12/07/18 12/07/18 06:59 14:59 22:59 Intake Total 100 550 0 Output Total 450 350 Balance -350 200 0 Intake: Intake, IV Amount 50 50 Left Hand 50 Left Upper arm 50 Oral 50 500 0 Output: Chest Tube Drainage 50 Left Lateral Chest 50 Urine 400 350 Urine, Voided 400 350 Other: # Voids Urine, Voided 1 1 - Medications Active Medications: Active Medications Generic Name Dose Route Start Last Admin Trade Name Freq PRN Reason Stop Dose Admin Acetaminophen 650 mg 11/29/18 19:43 12/04/18 11:44 Tylenol 325mg Tab PO 650 mg Q6 PRN Administration Fever >100.4 F Albuterol/Ipratropium 3 ml 12/04/18 13:54 12/05/18 13:06 Duoneb 3 Mg/0.5 Mg (3 Ml) Ud INH 3 ml RQ6 PRN Administration Shortness of Breath Benzocaine/Menthol 1 miguel 12/05/18 10:14 12/07/18 09:42 Cepacol Sore Throat MT 1 miguel Q4H PRN Administration Sore Throat Diphenhydramine HCl 25 mg 12/04/18 09:09 12/04/18 11:44 Benadryl PO 25 mg DAILY PRN Administration pre-transfusion Guaifenesin 100 mg 12/05/18 10:14 12/07/18 09:41 Robitussin PO 100 mg Q4H PRN Administration Cough Hydrocortisone Sodium Succinate 50 mg 12/04/18 10:00 12/04/18 11:43 Solu-Cortef IV 50 mg DAILY PRN Administration pre-transfusion Piperacillin Sod/Tazobactam Sod 3.375 gm in 50 mls @ 100 mls/hr 11/30/18 00:00 12/07/18 12:27 Zosyn 3.375 Gm Iv Premix IVPB 100 mls/hr Q6 ELDA Administration Protocol Pantoprazole Sodium 20 mg 12/05/18 10:00 12/07/18 09:41 Protonix Ec Tab PO 20 mg DAILY ELDA Administration Tamsulosin HCl 0.4 mg 11/30/18 10:00 12/07/18 09:41 Flomax PO 0.4 mg BID ELDA Administration - Patient Studies Lab Studies: Microbiology Studies 12/01/18 17:21 Blood Culture - Final Blood NO GROWTH AFTER 5 DAYS Gram Stain - Final TEST NOT PERFORMED Lab Studies 12/07/18 12/07/18 Range/Units 05:53 05:51 WBC 0.4 L* (4.8-10.8) K/uL RBC 2.62 L (4.40-5.90) Mil/uL Hgb 7.9 L (12.0-18.0) g/dL Hct 23.2 L (35.0-51.0) % MCV 88.7 (80.0-94.0) fL MCH 30.1 (27.0-31.0) pg MCHC 33.9 (33.0-37.0) g/dL RDW 14.1 (11.5-14.5) % Plt Count 21 L* D (130-400) K/uL Manual Plt Count 25 L* D (130-400) K/uL MPV 9.4 (7.2-11.7) fL Neut % (Auto) 3.9 L (50.0-75.0) % Lymph % (Auto) 61.2 H (20.0-40.0) % [place] % (Auto) 33.6 H (0.0-10.0) % Eos % (Auto) 1.3 (0.0-4.0) % Baso % (Auto) 0.0 (0.0-2.0) % Neut # (Auto) 0.0 L (1.8-7.0) K/uL Lymph # (Auto) 0.2 L (1.0-4.3) K/uL [place] # (Auto) 0.1 (0.0-0.8) K/uL Eos # (Auto) 0.0 (0.0-0.7) K/uL Baso # (Auto) 0.0 (0.0-0.2) K/uL Total Counted Cancelled Neutrophils % (Manual) Cancelled Band Neutrophils % Cancelled Lymphocytes % (Manual) Cancelled Reactive Lymphs % Cancelled Monocytes % (Manual) Cancelled Eosinophils % (Manual) Cancelled Basophils % (Manual) Cancelled Metamyelocytes % Cancelled Myelocytes % Cancelled Promyelocytes % Cancelled Blast Cells % Cancelled Plasma Cell % (Manual) Cancelled Nucleated RBC % Cancelled Hypersegmented Polys Cancelled Smudge Cells Cancelled Toxic Granulation Cancelled Dohle Bodies Cancelled Nazanin Rods Cancelled Platelet Estimate Cancelled Plt Clumps, EDTA Cancelled Large Platelets Cancelled Giant Platelets Cancelled RBC Morphology Cancelled Polychromasia Cancelled Hypochromasia (manual) Cancelled Poikilocytosis (manual Cancelled Basophilic Stippling Cancelled Anisocytosis (manual) Cancelled Microcytosis (manual) Cancelled Macrocytosis (manual) Cancelled Spherocytes Cancelled Sickle Cells Cancelled Target Cells Cancelled Tear Drop Cells Cancelled Ovalocytes Cancelled Stomatocytes Cancelled Helmet Cells Cancelled [place] Bodies Cancelled Terry Cells Cancelled Acanthocytes (Spur) Cancelled Rouleaux Cancelled Schistocytes Cancelled Sodium 135 (132-148) mmol/L Potassium 3.5 L (3.6-5.2) mmol/L Chloride 104 (98-107) mmol/L Carbon Dioxide 28 (22-30) mmol/L Anion Gap 6 L (10-20) BUN 19 (9-20) mg/dL Creatinine 0.6 L (0.8-1.5) mg/dL Est GFR ( Amer) > 60 Est GFR (Non-Af Amer) > 60 Random Glucose 100 (75-110) mg/dL Calcium 7.6 L (8.6-10.4) mg/dl Total Bilirubin 1.8 H (0.2-1.3) mg/dL AST 31 (17-59) U/L ALT 48 (21-72) U/L Alkaline Phosphatase 137 H D (38-126) U/L Total Protein 4.4 L (6.3-8.3) g/dL Albumin 2.1 L (3.5-5.0) g/dL Globulin 2.3 (2.2-3.9) gm/dL Albumin/Globulin Ratio 0.9 L (1.0-2.1) Laboratory Results - last 24 hr 12/07/18 12/07/18 05:51 05:53 WBC 0.4 L* RBC 2.62 L Hgb 7.9 L Hct 23.2 L MCV 88.7 MCH 30.1 MCHC 33.9 RDW 14.1 Plt Count 21 L* D Manual Plt Count 25 L* D MPV 9.4 Neut % (Auto) 3.9 L Lymph % (Auto) 61.2 H [place] % (Auto) 33.6 H Eos % (Auto) 1.3 Baso % (Auto) 0.0 Neut # (Auto) 0.0 L Lymph # (Auto) 0.2 L [place] # (Auto) 0.1 Eos # (Auto) 0.0 Baso # (Auto) 0.0 Total Counted Cancelled Neutrophils % (Manual) Cancelled Band Neutrophils % Cancelled Lymphocytes % (Manual) Cancelled Reactive Lymphs % Cancelled Monocytes % (Manual) Cancelled Eosinophils % (Manual) Cancelled Basophils % (Manual) Cancelled Metamyelocytes % Cancelled Myelocytes % Cancelled Promyelocytes % Cancelled Blast Cells % Cancelled Plasma Cell % (Manual) Cancelled Nucleated RBC % Cancelled Hypersegmented Polys Cancelled Smudge Cells Cancelled Toxic Granulation Cancelled Dohle Bodies Cancelled Nazanin Rods Cancelled Platelet Estimate Cancelled Plt Clumps, EDTA Cancelled Large Platelets Cancelled Giant Platelets Cancelled RBC Morphology Cancelled Polychromasia Cancelled Hypochromasia (manual) Cancelled Poikilocytosis (manual Cancelled Basophilic Stippling Cancelled Anisocytosis (manual) Cancelled Microcytosis (manual) Cancelled Macrocytosis (manual) Cancelled Spherocytes Cancelled Sickle Cells Cancelled Target Cells Cancelled Tear Drop Cells Cancelled Ovalocytes Cancelled Stomatocytes Cancelled Helmet Cells Cancelled [place] Bodies Cancelled [place] Cells Cancelled Acanthocytes (Spur) Cancelled Rouleaux Cancelled Schistocytes Cancelled Sodium 135 Potassium 3.5 L Chloride 104 Carbon Dioxide 28 Anion Gap 6 L BUN 19 Creatinine 0.6 L Est GFR ( Amer) > 60 Est GFR (Non-Af Amer) > 60 Random Glucose 100 Calcium 7.6 L Total Bilirubin 1.8 H AST 31 ALT 48 Alkaline Phosphatase 137 H D Total Protein 4.4 L Albumin 2.1 L Globulin 2.3 Albumin/Globulin Ratio 0.9 L Critical Care Progress Note - Nutrition Nutrition: Nutrition Category Date Time Status Regular Diet [DIET] Diets 12/06/18 Dinner Active Attending/Attestation - Attestation I have personally seen and examined this patient.: Yes I have fully participated in the care of the patient.: Yes I have reviewed all pertinent clinical information: Yes Notes (Text): 12/07/18 18:30 Patient seen and examined in the intensive care unit. Hemodynamically stable and for transfer to floor Left pigtail catheter in place <Darell Lauren - Last Filed: 12/07/18 19:20> CCU Subjective - Physician Review Subjective (Free Text): PGY-[address] Thurston Patient is seen and examined at bedside. Patient is able to tolerate his diet. Patient denies chest pain, fever, chills, abdominal pain, or headache. CCU Objective - Vital Signs / Intake & Output Vital Signs (Last 4 hours): Vital Signs Pulse Resp BP Pulse Ox 12/07/18 13:00 100 H 25 H 98 12/07/18 12:53 104 H 25 H 126/39 L 98 12/07/18 12:01 108 H 97 12/07/18 11:54 107 H 29 H 129/40 L 99 12/07/18 11:00 109 H 35 H 97 12/07/18 10:54 106 H 29 H 141/50 L 100 12/07/18 10:09 110 H 34 H 138/47 L 96 12/07/18 10:05 117 H 17 Intake and Output (Last 8hrs): Intake & Output 12/06/18 12/07/18 12/07/18 22:59 06:59 14:59 Intake Total 30 100 450 Output Total 560 450 350 Balance -530 -350 100 Intake: Intake, IV Amount 50 50 Left Hand 50 Left Upper arm 50 Oral 30 50 400 Output: Chest Tube Drainage 60 50 Left Lateral Chest 60 50 Urine 500 400 350 Urine, Voided 500 400 350 Other: # Voids Urine, Voided 1 1 1 # Bowel Movements 1 - Physical Exam Head: Positive for: Atraumatic, Normocephalic Pupils: Positive for: PERRL Extroacular Muscles: Positive for: EOMI Conjunctiva: Positive for: Normal Mouth: Positive for: Dry, Other (O2 via NC ) Respiratory/Chest: Positive for: Clear to Auscultation, Other (left chest tube, clean, collecting about 450 cc fluid ). Negative for: Respiratory Distress, Accessory Muscle Use Cardiovascular: Positive for: Regular Rate and Rhythm, Normal S1, S2 Abdomen: Positive for: Normal Bowel Sounds. Negative for: Tenderness, Distention Upper Extremity: Positive for: Normal Inspection. Negative for: Edema Lower Extremity: Positive for: Normal Inspection. Negative for: Edema Neurological: Positive for: CN II-XII Intact, Speech Normal Skin: Positive for: Warm, Dry, Normal Color Psychiatric: Positive for: Alert, Oriented x 3, Normal Insight, Normal Concentration, Normal Affect, Normal Mood - Medications Active Medications: Active Medications Generic Name Dose Route Start Last Admin Trade Name Freq PRN Reason Stop Dose Admin Acetaminophen 650 mg 11/29/18 19:43 12/04/18 11:44 Tylenol 325mg Tab PO 650 mg Q6 PRN Administration Fever >100.4 F Albuterol/Ipratropium 3 ml 12/04/18 13:54 12/05/18 13:06 Duoneb 3 Mg/0.5 Mg (3 Ml) Ud INH 3 ml RQ6 PRN Administration Shortness of Breath Benzocaine/Menthol 1 miguel 12/05/18 10:14 12/07/18 09:42 Cepacol Sore Throat MT 1 miguel Q4H PRN Administration Sore Throat Diphenhydramine HCl 25 mg 12/04/18 09:09 12/04/18 11:44 Benadryl PO 25 mg DAILY PRN Administration pre-transfusion Guaifenesin 100 mg 12/05/18 10:14 12/07/18 09:41 Robitussin PO 100 mg Q4H PRN Administration Cough Hydrocortisone Sodium Succinate 50 mg 12/04/18 10:00 12/04/18 11:43 Solu-Cortef IV 50 mg DAILY PRN Administration pre-transfusion Piperacillin Sod/Tazobactam Sod 3.375 gm in 50 mls @ 100 mls/hr 11/30/18 00:00 12/07/18 12:27 Zosyn 3.375 Gm Iv Premix IVPB 100 mls/hr Q6 ELDA Administration Protocol Pantoprazole Sodium 20 mg 12/05/18 10:00 12/07/18 09:41 Protonix Ec Tab PO 20 mg DAILY ELDA Administration Tamsulosin HCl 0.4 mg 11/30/18 10:00 12/07/18 09:41 Flomax PO 0.4 mg BID ELDA Administration - Patient Studies Lab Studies: Microbiology Studies 12/01/18 17:21 Blood Culture - Final Blood NO GROWTH AFTER 5 DAYS Gram Stain - Final TEST NOT PERFORMED 12/01/18 18:46 Blood Culture - Final Blood No growth. Gram Stain - Final Lab Studies 12/07/18 12/07/18 Range/Units 05:53 05:51 WBC 0.4 L* (4.8-10.8) K/uL RBC 2.62 L (4.40-5.90) Mil/uL Hgb 7.9 L (12.0-18.0) g/dL Hct 23.2 L (35.0-51.0) % MCV 88.7 (80.0-94.0) fL MCH 30.1 (27.0-31.0) pg MCHC 33.9 (33.0-37.0) g/dL RDW 14.1 (11.5-14.5) % Plt Count 21 L* D (130-400) K/uL Manual Plt Count 25 L* D (130-400) K/uL MPV 9.4 (7.2-11.7) fL Neut % (Auto) 3.9 L (50.0-75.0) % Lymph % (Auto) 61.2 H (20.0-40.0) % [place] % (Auto) 33.6 H (0.0-10.0) % Eos % (Auto) 1.3 (0.0-4.0) % Baso % (Auto) 0.0 (0.0-2.0) % Neut # (Auto) 0.0 L (1.8-7.0) K/uL Lymph # (Auto) 0.2 L (1.0-4.3) K/uL [place] # (Auto) 0.1 (0.0-0.8) K/uL Eos # (Auto) 0.0 (0.0-0.7) K/uL Baso # (Auto) 0.0 (0.0-0.2) K/uL Total Counted Cancelled Neutrophils % (Manual) Cancelled Band Neutrophils % Cancelled Lymphocytes % (Manual) Cancelled Reactive Lymphs % Cancelled Monocytes % (Manual) Cancelled Eosinophils % (Manual) Cancelled Basophils % (Manual) Cancelled Metamyelocytes % Cancelled Myelocytes % Cancelled Promyelocytes % Cancelled Blast Cells % Cancelled Plasma Cell % (Manual) Cancelled Nucleated RBC % Cancelled Hypersegmented Polys Cancelled Smudge Cells Cancelled Toxic Granulation Cancelled Dohle Bodies Cancelled Nazanin Rods Cancelled Platelet Estimate Cancelled Plt Clumps, EDTA Cancelled Large Platelets Cancelled Giant Platelets Cancelled RBC Morphology Cancelled Polychromasia Cancelled Hypochromasia (manual) Cancelled Poikilocytosis (manual Cancelled Basophilic Stippling Cancelled Anisocytosis (manual) Cancelled Microcytosis (manual) Cancelled Macrocytosis (manual) Cancelled Spherocytes Cancelled Sickle Cells Cancelled Target Cells Cancelled Tear Drop Cells Cancelled Ovalocytes Cancelled Stomatocytes Cancelled Helmet Cells Cancelled [place] Bodies Cancelled Terry Cells Cancelled Acanthocytes (Spur) Cancelled Rouleaux Cancelled Schistocytes Cancelled Sodium 135 (132-148) mmol/L Potassium 3.5 L (3.6-5.2) mmol/L Chloride 104 (98-107) mmol/L Carbon Dioxide 28 (22-30) mmol/L Anion Gap 6 L (10-20) BUN 19 (9-20) mg/dL Creatinine 0.6 L (0.8-1.5) mg/dL Est GFR ( Amer) > 60 Est GFR (Non-Af Amer) > 60 Random Glucose 100 (75-110) mg/dL Calcium 7.6 L (8.6-10.4) mg/dl Total Bilirubin 1.8 H (0.2-1.3) mg/dL AST 31 (17-59) U/L ALT 48 (21-72) U/L Alkaline Phosphatase 137 H D (38-126) U/L Total Protein 4.4 L (6.3-8.3) g/dL Albumin 2.1 L (3.5-5.0) g/dL Globulin 2.3 (2.2-3.9) gm/dL Albumin/Globulin Ratio 0.9 L (1.0-2.1) Laboratory Results - last 24 hr 12/07/18 12/07/18 05:51 05:53 WBC 0.4 L* RBC 2.62 L Hgb 7.9 L Hct 23.2 L MCV 88.7 MCH 30.1 MCHC 33.9 RDW 14.1 Plt Count 21 L* D Manual Plt Count 25 L* D MPV 9.4 Neut % (Auto) 3.9 L Lymph % (Auto) 61.2 H [place] % (Auto) 33.6 H Eos % (Auto) 1.3 Baso % (Auto) 0.0 Neut # (Auto) 0.0 L Lymph # (Auto) 0.2 L [place] # (Auto) 0.1 Eos # (Auto) 0.0 Baso # (Auto) 0.0 Total Counted Cancelled Neutrophils % (Manual) Cancelled Band Neutrophils % Cancelled Lymphocytes % (Manual) Cancelled Reactive Lymphs % Cancelled Monocytes % (Manual) Cancelled Eosinophils % (Manual) Cancelled Basophils % (Manual) Cancelled Metamyelocytes % Cancelled Myelocytes % Cancelled Promyelocytes % Cancelled Blast Cells % Cancelled Plasma Cell % (Manual) Cancelled Nucleated RBC % Cancelled Hypersegmented Polys Cancelled Smudge Cells Cancelled Toxic Granulation Cancelled Dohle Bodies Cancelled Nazanin Rods Cancelled Platelet Estimate Cancelled Plt Clumps, EDTA Cancelled Large Platelets Cancelled Giant Platelets Cancelled RBC Morphology Cancelled Polychromasia Cancelled Hypochromasia (manual) Cancelled Poikilocytosis (manual Cancelled Basophilic Stippling Cancelled Anisocytosis (manual) Cancelled Microcytosis (manual) Cancelled Macrocytosis (manual) Cancelled Spherocytes Cancelled Sickle Cells Cancelled Target Cells Cancelled Tear Drop Cells Cancelled Ovalocytes Cancelled Stomatocytes Cancelled Helmet Cells Cancelled [place] Bodies Cancelled [place] Cells Cancelled Acanthocytes (Spur) Cancelled Rouleaux Cancelled Schistocytes Cancelled Sodium 135 Potassium 3.5 L Chloride 104 Carbon Dioxide 28 Anion Gap 6 L BUN 19 Creatinine 0.6 L Est GFR ( Amer) > 60 Est GFR (Non-Af Amer) > 60 Random Glucose 100 Calcium 7.6 L Total Bilirubin 1.8 H AST 31 ALT 48 Alkaline Phosphatase 137 H D Total Protein 4.4 L Albumin 2.1 L Globulin 2.3 Albumin/Globulin Ratio 0.9 L Critical Care Progress Note - Nutrition Nutrition: Nutrition Category Date Time Status Regular Diet [DIET] Diets 12/06/18 Dinner Active Assessment/Plan - Assessment and Plan (Free Text) Plan: Patient is a 78 year old male with 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 Left sided pigtail insertion for left pneumothorax remains in place. No sign of current infection, patient safe to transfer to telemetry. Neuro - AAOx3 - No acute issues Cardio - Vitals stable, continue to hold HTN medications Pulm - 12/06: Stable pleural effusions; no pneumothorax - Left pigtail in place, output 110mL/24 hours - SpO2 98% on nasal cannula - Duoneb PRN - Robitussin PRN for cough - Patient refusing surgery recommended by Dr. Nunes GI - HHD - Dietary Supplements- ensure - Protonix for GI ppx Renal - continue monitor BUN/Cr - Flomax for BPH Hem/Onc - WBC 0.4-- Reverse isolation precautions in place - Platelets 21 today - continue to monitor platelets - Hb 7.9 today, down from 8.6 yesterday; continue to monitor - f/u Dr. Diamante jo ID - Remains Afebrile, Tmax 99.1F - No signs of active infection - Reverse Isolation Precautions - 12/01 Blood cx-- no growth after 5 days - Continue Zosyn - Tylenol PRN for fever PPX - SCDs for DVT ppx - Protonix for GI ppx - Benadryl PRN for pre-transfusion ppx Plan discussed with Dr. Bertrand Landis: patient hemodynamically stable and for transfer to medical surgical floor Darell Lauren, PGY-1 - Date & Time Date: 12/07/18 Time: 09:00
[2018-12-07] MEDS: Albuterol-Ipratrop 3 mg / 0.5 (3 ml) UD INH PRN (21:18)
--- NOTE | 2018-12-07 21:36 | CP.PCM.PN ---
Subjective - Date & Time of Evaluation Date of Evaluation: 12/07/18 Time of Evaluation: 14:00 - Subjective Subjective: No complaints, family at bedside. Objective - Vital Signs/Intake and Output Vital Signs (last 24 hours): Temp Pulse Resp BP Pulse Ox 97.2 F L 103 H 32 H 124/54 L 98 12/07/18 16:00 12/07/18 19:00 12/07/18 19:00 12/07/18 18:53 12/07/18 19:00 Intake and Output: 12/07/18 12/08/18 18:59 06:59 Intake Total 650 Output Total 750 Balance -100 - Medications Medications: Current Medications Acetaminophen (Tylenol 325mg Tab) 650 mg PO Q6 PRN PRN Reason: Fever >100.4 F Last Admin: 12/04/18 11:44 Dose: 650 mg Albuterol/Ipratropium (Duoneb 3 Mg/0.5 Mg (3 Ml) Ud) 3 ml INH RQ6 PRN PRN Reason: Shortness of Breath Last Admin: 12/07/18 21:18 Dose: 3 ml Benzocaine/Menthol (Cepacol Sore Throat) 1 miguel MT Q4H PRN PRN Reason: Sore Throat Last Admin: 12/07/18 09:42 Dose: 1 miguel Diphenhydramine HCl (Benadryl) 25 mg PO DAILY PRN PRN Reason: pre-transfusion Last Admin: 12/04/18 11:44 Dose: 25 mg Guaifenesin (Robitussin) 100 mg PO Q4H PRN PRN Reason: Cough Last Admin: 12/07/18 09:41 Dose: 100 mg Hydrocortisone Sodium Succinate (Solu-Cortef) 50 mg IV DAILY PRN PRN Reason: pre-transfusion Last Admin: 12/04/18 11:43 Dose: 50 mg Piperacillin Sod/Tazobactam Sod (Zosyn 3.375 Gm Iv Premix) 3.375 gm in 50 mls @ 100 mls/hr IVPB Q6 ELDA; Protocol Last Admin: 12/07/18 19:04 Dose: 100 mls/hr Pantoprazole Sodium (Protonix Ec Tab) 20 mg PO DAILY ELDA Last Admin: 12/07/18 09:41 Dose: 20 mg Tamsulosin HCl (Flomax) 0.4 mg PO BID ELDA Last Admin: 12/07/18 19:04 Dose: 0.4 mg - Labs Labs: 12/07/18 05:53 12/07/18 05:51 PT 13.5 SECONDS (9.7-12.2) H 12/06/18 06:07 INR 1.2 12/06/18 06:07 APTT 31 SECONDS (21-34) 12/06/18 06:07 - Head Exam Head Exam: ATRAUMATIC - Eye Exam Eye Exam: Normal appearance - ENT Exam ENT Exam: Mucous Membranes Dry - Respiratory Exam Respiratory Exam: NORMAL BREATHING PATTERN Assessment and Plan (1) Pancytopenia Assessment & Plan: secondary to AML transfusion support goal hgb > 9 and plt > 20,000 neutropenic precautions Status: Acute (2) AML (acute myeloblastic leukemia) Assessment & Plan: outpatient treatment Status: Acute
[2018-12-08] MEDS: Piperacill/Tazo 3.375gm in Dex 3.375 GM/50 ML BAG IVPB SCH ×4 (00:17→18:46)
[2018-12-08 06:42] LABS: HEMOGLOBIN 6.9 g/dL (12.0-18.0); LYMPH # 0.2 K/uL (1.0-4.3); LYMPH % 70.2 % (20.0-40.0); MEAN CELL VOLUME 89.9 fL (80.0-94.0); MEAN CORPUSCULAR HEMOGLOBIN 29.6 pg (27.0-31.0); MEAN CORPUSCULAR HGB CONC 32.9 g/dL (33.0-37.0); MEAN PLATELET VOLUME 10.9 fL (7.2-11.7); MONO # 0.1 K/uL (0.0-0.8); MONO % 27.8 % (0.0-10.0); NRBC % 0.7 % (0.0-2.0); RBC 2.32 Mil/uL (4.40-5.90)
[2018-12-08 06:44] LABS: WHITE BLOOD COUNT 0.3 K/uL (4.8-10.8)
--- NOTE | 2018-12-08 07:14 | CP.PCM.PN ---
Subjective - Date & Time of Evaluation Date of Evaluation: 12/08/18 Time of Evaluation: 07:10 - Subjective Subjective: Patient examined at bedside with family in room. No acute events overnight. Patient transferred out of ICU status and awaiting bed on med-surg. Patient comfortable on BiPAP, he reports he was too SOB on NC and requires BiPAP to feel less SOB. Discussion held with patient and family regarding current lab results today and pancytopenia. Patient agrees to be transfused platelets and PRBC. Planning for family meeting later today with Allyssa, Palliative, to discuss poor prognosis and goals of care. Patient reports some diffuse abdominal pain; denies chest pain, nausea, diarrhea, urinary retention. Objective - Vital Signs/Intake and Output Vital Signs (last 24 hours): Temp Pulse Resp BP Pulse Ox 98.2 F 97 H 20 130/46 L 100 12/08/18 04:00 12/08/18 05:51 12/08/18 04:00 12/08/18 04:00 12/08/18 00:00 - Medications Medications: Current Medications Acetaminophen (Tylenol 325mg Tab) 650 mg PO Q6 PRN PRN Reason: Fever >100.4 F Last Admin: 12/04/18 11:44 Dose: 650 mg Albuterol/Ipratropium (Duoneb 3 Mg/0.5 Mg (3 Ml) Ud) 3 ml INH RQ6 PRN PRN Reason: Shortness of Breath Last Admin: 12/07/18 21:18 Dose: 3 ml Benzocaine/Menthol (Cepacol Sore Throat) 1 miguel MT Q4H PRN PRN Reason: Sore Throat Last Admin: 12/07/18 09:42 Dose: 1 miguel Diphenhydramine HCl (Benadryl) 25 mg PO DAILY PRN PRN Reason: pre-transfusion Last Admin: 12/04/18 11:44 Dose: 25 mg Guaifenesin (Robitussin) 100 mg PO Q4H PRN PRN Reason: Cough Last Admin: 12/07/18 21:20 Dose: 100 mg Hydrocortisone Sodium Succinate (Solu-Cortef) 50 mg IV DAILY PRN PRN Reason: pre-transfusion Last Admin: 12/04/18 11:43 Dose: 50 mg Piperacillin Sod/Tazobactam Sod (Zosyn 3.375 Gm Iv Premix) 3.375 gm in 50 mls @ 100 mls/hr IVPB Q6 [facility]; Protocol Last Admin: 12/08/18 05:05 Dose: 100 mls/hr Pantoprazole Sodium (Protonix Ec Tab) 20 mg PO DAILY [facility] Last Admin: 12/07/18 09:41 Dose: 20 mg Tamsulosin HCl (Flomax) 0.4 mg PO BID [facility] Last Admin: 12/07/18 19:04 Dose: 0.4 mg - Labs Labs: 12/08/18 06:35 12/07/18 05:51 PT 13.5 SECONDS (9.7-12.2) H 12/06/18 06:07 INR 1.2 12/06/18 06:07 APTT 31 SECONDS (21-34) 12/06/18 06:07 - Constitutional Appears: Non-toxic, No Acute Distress, Chronically Ill - Head Exam Head Exam: ATRAUMATIC, NORMAL INSPECTION, NORMOCEPHALIC - Eye Exam Eye Exam: EOMI, Normal appearance - ENT Exam ENT Exam: Mucous Membranes Moist, Normal Exam Additional comments: on BiPAP - Neck Exam Neck Exam: Normal Inspection. absent: Lymphadenopathy - Respiratory Exam Respiratory Exam: Decreased Breath Sounds (diffusely), Rales (left). absent: NORMAL BREATHING PATTERN Additional comments: on BiPAP left pigtail placed, serosanguineous output~10cc - Cardiovascular Exam Cardiovascular Exam: Tachycardia, REGULAR RHYTHM Additional comments: decreased heart sounds - GI/Abdominal Exam GI & Abdominal Exam: Guarding, Tenderness, Normal Bowel Sounds. absent: Distended - Extremities Exam Extremities Exam: Normal Inspection (muscle wasting). absent: Calf Tenderness, Pedal Edema - Neurological Exam Neurological Exam: Alert, Awake - Psychiatric Exam Psychiatric exam: Normal Affect, Normal Mood - Skin Skin Exam: Dry, Intact, Pallor, Warm Assessment and Plan - Assessment and Plan (Free Text) Assessment: 78 year old male w/ pmhx of AML, HTN, COPD, BPH admitted for evaluation of fevers, and treatment of pancytopenia Plan: Pancytopenia, 2/2 AML(dx 09/2018) -hgb 6.9, platelts 8 -transfuse PRBCs and platelets today -goal hgb>9, plts>20K -neutropenic precautions -monitor labs and transfuse PRN -Dr. Bobby, Heme/Onc Left Pneumothorax -f/u repeat chest xray to evaluate -left pigtail in place -pt refusing larger chest tube, note in chart with explicit wishes regarding refusal -oxygenating via BiPAP, not tolerating NC -f/u d-dimer to r/o PE -CT sx, Dr. Nunes Fevers -99.8 today -continue IV Abx: zosyn; vanco completed 12/06 BPH -flomax -I/O Ppx VTE ppx: AC contraindicated in pancytopenia, SCDs GI ppx: protonix 20mg po qd consider PICC s/p thrombocytopenia correction w/ platelets. Pt has inadequate vascular access Dispo: Family meeting planned for today; will discuss goals of care Discussed w/ / Lindsay Amato, PGY-1
[2018-12-08 07:41] LABS: ALBUMIN 2.1 g/dL (3.5-5.0); ALT/SGPT 30 U/L (21-72); AST/SGOT 10 U/L (17-59); BLOOD UREA NITROGEN 18 mg/dL (9-20); CALCIUM 7.3 mg/dl (8.6-10.4); GFR NON-AFRICAN AMERICAN > 60
[2018-12-08] MEDS: Pantoprazole 20 mg EC Tab PO SCH (09:34)
--- NOTE | 2018-12-08 12:29 | RAD ---
Chest x-ray single frontal view HISTORY: Evaluate pneumothorax. Comparison: 12/06/2018 Findings: Left chest tube in stable position. Stable small lucency at the left lung apex which may represent a tiny pneumothorax. Biapical pleural thickening with upper lobe granulomatous changes. Diffuse increased interstitial lung markings. Scattered patchy consolidative opacities throughout the left lung as well as within the right mid to lower lung zone with associated nodularity. Atherosclerotic calcification at the aortic knob. Heart size within normal limits. Degenerative changes in the spine and shoulders. Impression: Left chest tube in stable position. Stable small lucency at the left lung apex which may represent a tiny pneumothorax. Biapical pleural thickening with upper lobe granulomatous changes. Diffuse increased interstitial lung markings. Scattered patchy consolidative opacities throughout the left lung as well as within the right mid to lower lung zone with associated nodularity. Atherosclerotic calcification at the aortic knob. Heart size within normal limits. Degenerative changes in the spine and shoulders.
--- NOTE | 2018-12-08 15:48 | CP.PCM.PCO ---
Physician Communication Note - Physician Communication Note Physician Communication Note: Family meting tomorrow at 2 pm.
[2018-12-08] MEDS: Albuterol-Ipratrop 3 mg / 0.5 (3 ml) UD INH PRN (19:34)
[2018-12-09] MEDS: Piperacill/Tazo 3.375gm in Dex 3.375 GM/50 ML BAG IVPB SCH ×5 (00:22→23:40)
--- NOTE | 2018-12-09 07:05 | CP.PCM.PN ---
Subjective - Date & Time of Evaluation Date of Evaluation: 12/09/18 Time of Evaluation: 08:00 - Subjective Subjective: Patient examined at bedside with family in room. No acute events overnight. Per notes, pt only received 1U PRBC and 1 of platelets, rather than the 2 that were ordered. Pt informed of the error, and notified he would receive the jim tional unit of platelets today. Confirmed with pt the plan for family meeting at 2pm. Patient denies complaints including chest pain, SOB, abdominal pain, nausea, dysuria. Objective - Vital Signs/Intake and Output Vital Signs (last 24 hours): Temp Pulse Resp BP Pulse Ox 97.5 F L 76 18 123/47 L 100 12/09/18 04:00 12/09/18 05:52 12/09/18 04:00 12/09/18 04:00 12/09/18 04:00 - Medications Medications: Current Medications Acetaminophen (Tylenol 325mg Tab) 650 mg PO Q6 PRN PRN Reason: Fever >100.4 F Last Admin: 12/04/18 11:44 Dose: 650 mg Acetaminophen (Tylenol 325mg Tab) 650 mg PO ONCE PRN PRN Reason: Other Last Admin: 12/08/18 10:54 Dose: 650 mg Albuterol/Ipratropium (Duoneb 3 Mg/0.5 Mg (3 Ml) Ud) 3 ml INH RQ6 PRN PRN Reason: Shortness of Breath Last Admin: 12/08/18 19:34 Dose: 3 ml Benzocaine/Menthol (Cepacol Sore Throat) 1 miguel MT Q4H PRN PRN Reason: Sore Throat Last Admin: 12/07/18 09:42 Dose: 1 miguel Diphenhydramine HCl (Benadryl) 25 mg PO DAILY PRN PRN Reason: pre-transfusion Last Admin: 12/08/18 10:53 Dose: 25 mg Guaifenesin (Robitussin) 100 mg PO Q4H PRN PRN Reason: Cough Last Admin: 12/07/18 21:20 Dose: 100 mg Hydrocortisone Sodium Succinate (Solu-Cortef) 50 mg IV DAILY PRN PRN Reason: pre-transfusion Last Admin: 12/08/18 10:53 Dose: 50 mg Piperacillin Sod/Tazobactam Sod (Zosyn 3.375 Gm Iv Premix) 3.375 gm in 50 mls @ 100 mls/hr IVPB Q6 [facility]; Protocol Last Admin: 12/09/18 05:10 Dose: 100 mls/hr Pantoprazole Sodium (Protonix Ec Tab) 20 mg PO DAILY [facility] Last Admin: 12/08/18 09:34 Dose: 20 mg Tamsulosin HCl (Flomax) 0.4 mg PO BID [facility] Last Admin: 12/08/18 18:46 Dose: 0.4 mg - Labs Labs: 12/08/18 06:35 12/08/18 06:35 PT 13.5 SECONDS (9.7-12.2) H 12/06/18 06:07 INR 1.2 12/06/18 06:07 APTT 31 SECONDS (21-34) 12/06/18 06:07 - Additional Findings Additional findings: - Constitutional Appears: Non-toxic, No Acute Distress, Chronically Ill - Head Exam Head Exam: ATRAUMATIC, NORMAL INSPECTION, NORMOCEPHALIC - Eye Exam Eye Exam: EOMI, Normal appearance - ENT Exam ENT Exam: Mucous Membranes Moist, Normal Exam Additional comments: on BiPAP - Neck Exam Neck Exam: Normal Inspection. absent: Lymphadenopathy - Respiratory Exam Respiratory Exam: Decreased Breath Sounds (diffusely), Rales (left). absent: NORMAL BREATHING PATTERN Additional comments: on BiPAP left pigtail placed, serosanguineous output - Cardiovascular Exam Cardiovascular Exam: Tachycardia, REGULAR RHYTHM Additional comments: decreased heart sounds - GI/Abdominal Exam GI & Abdominal Exam: Guarding, Tenderness, Normal Bowel Sounds. absent: Distended - Extremities Exam Extremities Exam: Normal Inspection (muscle wasting). absent: Calf Tenderness, Pedal Edema - Neurological Exam Neurological Exam: Alert, Awake - Psychiatric Exam Psychiatric exam: Normal Affect, Normal Mood - Skin Skin Exam: Dry, Intact, Pallor, Warm Assessment and Plan - Assessment and Plan (Free Text) Assessment: 78 year old male w/ pmhx of AML, HTN, COPD, BPH admitted for evaluation of fevers, and treatment of pancytopenia Plan: Pancytopenia, 2/2 AML(dx 09/2018) -hgb 7.3, platelets 16; s/p 1U PRBC and 1U platelets -transfuse PRBCs and platelets today -goal hgb>9, plts>20K -neutropenic precautions -monitor labs and transfuse PRN -Dr. Bobby, Heme/Onc Left Pneumothorax/r/o PE -f/u repeat chest xray to evaluate -left pigtail in place -pt refusing larger chest tube, note in chart with explicit wishes regarding refusal -transitioned to NC from BiPAP -d-dimer elevated 929, CTA oredered -CTA(12/09): Pneumonthorax decreasing. No finding of PE. Consolidation and pleural effusions. -CT sx, Dr. Nunes Fevers -afebrile, no leukocytosis -continue IV Abx: zosyn BPH -flomax -I/O Ppx VTE ppx: AC contraindicated in pancytopenia, SCDs GI ppx: protonix 20mg po qd consider PICC s/p thrombocytopenia correction w/ platelets. Pt has inadequate vascular access Dispo: Family meeting held. Plan to optimize pt enough for discharge to be set up with follow up with Dr. Bobby who has agreed to manage labwork and blood transfusions with hopes of resuming chemo once pt can tolerate it. Discussed w/ / Lindsay Amato, PGY-1
[2018-12-09] MEDS: Albuterol-Ipratrop 3 mg / 0.5 (3 ml) UD INH PRN ×3 (07:20→19:44)
[2018-12-09 07:50] LABS: HEMOGLOBIN 7.3 g/dL (12.0-18.0); LYMPH # 0.2 K/uL (1.0-4.3); LYMPH % 69.8 % (20.0-40.0); MEAN CELL VOLUME 89.6 fL (80.0-94.0); MEAN CORPUSCULAR HGB CONC 33.5 g/dL (33.0-37.0); MEAN PLATELET VOLUME 8.7 fL (7.2-11.7); MONO # 0.1 K/uL (0.0-0.8); MONO % 27.9 % (0.0-10.0); NEUT % 1.3 % (50.0-75.0); RBC 2.44 Mil/uL (4.40-5.90); RED CELL DISTRIBUTION WIDTH 14.1 % (11.5-14.5)
[2018-12-09 07:57] LABS: WHITE BLOOD COUNT 0.4 K/uL (4.8-10.8)
[2018-12-09 08:04] LABS: ALB/GLOB RATIO 0.9 (1.0-2.1); ALBUMIN 2.3 g/dL (3.5-5.0); ALT/SGPT 29 U/L (21-72); AST/SGOT 11 U/L (17-59); BLOOD UREA NITROGEN 21 mg/dL (9-20); CALCIUM 7.9 mg/dl (8.6-10.4); GFR NON-AFRICAN AMERICAN > 60
[2018-12-09] MEDS ORDERED: Iohexol 350mg/ml 100 ML ONE (09:45)
[2018-12-09] MEDS: Pantoprazole 20 mg EC Tab PO SCH (10:55)
--- NOTE | 2018-12-09 11:39 | CT ---
Date of service: 12/09/2018 CTA chest PE protocol Indication: elevated d-dimer Technique: Contiguous axial images were obtained through the chest with intravenous contrast enhancement. Sagittal and coronal reconstructions were generated and reviewed. This CT exam was performed using 1 or more of the following dose reduction techniques: Automated exposure control, adjustment of the MAA and/or kV according to patient size, and/or use of iterative reconstruction technique. IV contrast: 100 mL Omnipaque 350 IV Radiation dose (DLP): 336.17 MGy-cm. Comparison: Chest x-ray performed 12/08/18 Findings: Visualized portions of the inferior thyroid gland appear heterogeneous. 6 mm hypodense right thyroid nodule. The mediastinal and hilar vascular structures appear within normal limits. Cardiomegaly. Small pericardial effusion. Atherosclerotic calcifications of the aorta. Coronary artery calcifications. Cm mediastinal lymph nodes, nonspecific. No large central or segmental pulmonary embolus evident. Interval addition of left-sided chest tube noted at the left pleural base. Interval re-expansion of the left lung without pneumothorax evident. Hyperinflation consistent with COPD. Right apical calcified scarring/fibrotic changes re-identified. Small bilateral pleural effusions (right greater than left) and associated compressive consolidations. Scattered consolidations throughout all lobes Limited visualized portions of the upper abdomen: Partially imaged focal hypoattenuation of the left hepatic lobe, indeterminate. Degenerative changes. Osseous demineralization. Impression: Interval addition of left-sided chest tube noted at the left pleural base. Interval re-expansion of the left lung without pneumothorax evident. Hyperinflation consistent with COPD. Right apical calcified scarring/fibrotic changes re-identified. Small bilateral pleural effusions (right greater than left) and associated compressive consolidations. Consolidation noted throughout all lobes may reflect combination of atelectasis and pneumonia; recommend follow-up to resolution. Right upper lobe bulla. Cardiomegaly. Small pericardial effusion. Visualized portions of the inferior thyroid gland appear heterogeneous. 6 mm hypodense right thyroid nodule. Limited visualized portions of the upper abdomen: Partially imaged focal hypoattenuation of the left hepatic lobe, indeterminate. Additional findings as above.
--- NOTE | 2018-12-09 14:58 | CP.PCM.PN ---
Subjective - Date & Time of Evaluation Date of Evaluation: 12/09/18 Time of Evaluation: 14:56 - Subjective Subjective: Patient examined in bed with daughter and at bed side. Patient is alert, talkative, seems in good mood, breaths well with NC only. CT scan showed re expansion of the lungs and chest tube is planned to be pulled out. Family meeting held to discuss further care. Objective - Vital Signs/Intake and Output Vital Signs (last 24 hours): Temp Pulse Resp BP Pulse Ox 97.4 F L 77 18 127/50 L 100 12/09/18 11:33 12/09/18 13:00 12/09/18 11:33 12/09/18 11:33 12/09/18 11:33 Intake and Output: 12/09/18 12/09/18 06:59 18:59 Intake Total 220 290 Output Total 550 Balance -330 290 - Medications Medications: Current Medications Acetaminophen (Tylenol 325mg Tab) 650 mg PO Q6 PRN PRN Reason: Fever >100.4 F Last Admin: 12/04/18 11:44 Dose: 650 mg Acetaminophen (Tylenol 325mg Tab) 650 mg PO ONCE PRN PRN Reason: Other Last Admin: 12/08/18 10:54 Dose: 650 mg Albuterol/Ipratropium (Duoneb 3 Mg/0.5 Mg (3 Ml) Ud) 3 ml INH RQ6 PRN PRN Reason: Shortness of Breath Last Admin: 12/09/18 12:59 Dose: 3 ml Benzocaine/Menthol (Cepacol Sore Throat) 1 miguel MT Q4H PRN PRN Reason: Sore Throat Last Admin: 12/07/18 09:42 Dose: 1 miguel Diphenhydramine HCl (Benadryl) 25 mg PO DAILY PRN PRN Reason: pre-transfusion Last Admin: 12/08/18 10:53 Dose: 25 mg Guaifenesin (Robitussin) 100 mg PO Q4H PRN PRN Reason: Cough Last Admin: 12/07/18 21:20 Dose: 100 mg Hydrocortisone Sodium Succinate (Solu-Cortef) 50 mg IV DAILY PRN PRN Reason: pre-transfusion Last Admin: 12/08/18 10:53 Dose: 50 mg Piperacillin Sod/Tazobactam Sod (Zosyn 3.375 Gm Iv Premix) 3.375 gm in 50 mls @ 100 mls/hr IVPB Q6 [facility]; Protocol Last Admin: 12/09/18 11:52 Dose: 100 mls/hr Pantoprazole Sodium (Protonix Ec Tab) 20 mg PO DAILY [facility] Last Admin: 12/09/18 10:55 Dose: 20 mg Tamsulosin HCl (Flomax) 0.4 mg PO BID [facility] Last Admin: 12/09/18 10:56 Dose: 0.4 mg - Labs Labs: 12/09/18 07:44 12/09/18 07:44 PT 13.5 SECONDS (9.7-12.2) H 12/06/18 06:07 INR 1.2 12/06/18 06:07 APTT 31 SECONDS (21-34) 12/06/18 06:07 - Constitutional Appears: No Acute Distress, Chronically Ill - Head Exam Head Exam: ATRAUMATIC, NORMAL INSPECTION, NORMOCEPHALIC - Eye Exam Eye Exam: EOMI, Normal appearance, PERRL Pupil Exam: NORMAL ACCOMODATION, PERRL - ENT Exam ENT Exam: Mucous Membranes Moist, Normal Exam - Neck Exam Neck Exam: Full ROM, Normal Inspection - Respiratory Exam Respiratory Exam: Clear to Ausculation Bilateral, NORMAL BREATHING PATTERN - Cardiovascular Exam Cardiovascular Exam: REGULAR RHYTHM - GI/Abdominal Exam GI & Abdominal Exam: Soft, Normal Bowel Sounds - Rectal Exam Rectal Exam: Deferred - Exam Exam: NORMAL INSPECTION - Extremities Exam Extremities Exam: Full ROM, Normal Capillary Refill, Normal Inspection - Back Exam Back Exam: NORMAL INSPECTION - Neurological Exam Neurological Exam: Alert, Awake, Oriented x3 Neuro motor strength exam: Left Upper Extremity: 2/1, Right Upper Extremity: 2/1, Left Lower Extremity: 2/1, Right Lower Extremity: 2/1 - Psychiatric Exam Psychiatric exam: Normal Affect, Normal Mood - Skin Skin Exam: Dry, Intact, Normal Color, Pallor Assessment and Plan - Assessment and Plan (Free Text) Assessment: With family at bed side, residential nurse Doctor Lm and Doctor Randle, patient's clinical presentation reviewed. Patient reports feeling much better, his appetite has improved and patient is aware of need for good nutrition. Patient is frequently repositioning himself in the bed. Patient has not been OOB due to Chest Tube presence, but would like to. Chest tube is not draining any more and is planed to be removed. WBC 0.4, Plat 16.0. Patient is to receive a Unit of Platelets today. Family and patient stated concerns about further transfusions and chemo Tx. once patient is stable enough to be discharged. Patient shows strong desire to continue with Chemo Tx when stable for it. Doctor Bobby joined the meeting and suggested that patient should fallow up with him right after discharge, but if symptoms of weakness/dizziness occur to come straight to ED. Family was concerned about services at home and would they be covered by the Insurance. The SW was present and instructed family on steps to speed up the Medicaid application. Patient stated desire to return home as opposed to [facility] when discharged. SW was to arrange for VNS and PT at home. 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 * Neutropenia * Weakness * Chest tube has almost zero output * Family has concerns about care at home * Patient prefers discharge home vs [facility] * Patient has a good network of help at home * Family and patient have concerns about care post discharge Suggestion * Continue transfusions as needed to bring the levels up * Continue reverse contact isolation * Remove chest tube * PT for out of bed to chair * Assist with ADLs * Discharge planing home with VNS and PT when stable * SS to continue to fallow up and support patient and family ; help today appreciated * Continue to fallow up with Doctor Bobby's office post discharge Advance care planing 46 min palliative care will remain on board to offer support as needed.
--- NOTE | 2018-12-09 21:49 | CP.PCM.PN ---
Subjective - Date & Time of Evaluation Date of Evaluation: 12/08/18 Time of Evaluation: 12:00 - Subjective Subjective: No complaints. Objective - Vital Signs/Intake and Output Vital Signs (last 24 hours): Temp Pulse Resp BP Pulse Ox 98.2 F 85 19 134/50 L 97 12/09/18 17:23 12/09/18 19:45 12/09/18 17:23 12/09/18 17:23 12/09/18 16:00 Intake and Output: 12/09/18 12/10/18 18:59 06:59 Intake Total 1010 Output Total 400 Balance 610 - Medications Medications: Current Medications Acetaminophen (Tylenol 325mg Tab) 650 mg PO Q6 PRN PRN Reason: Fever >100.4 F Last Admin: 12/04/18 11:44 Dose: 650 mg Acetaminophen (Tylenol 325mg Tab) 650 mg PO ONCE PRN PRN Reason: Other Last Admin: 12/08/18 10:54 Dose: 650 mg Albuterol/Ipratropium (Duoneb 3 Mg/0.5 Mg (3 Ml) Ud) 3 ml INH RQ6 PRN PRN Reason: Shortness of Breath Last Admin: 12/09/18 19:44 Dose: 3 ml Benzocaine/Menthol (Cepacol Sore Throat) 1 miguel MT Q4H PRN PRN Reason: Sore Throat Last Admin: 12/07/18 09:42 Dose: 1 miguel Diphenhydramine HCl (Benadryl) 25 mg PO DAILY PRN PRN Reason: pre-transfusion Last Admin: 12/08/18 10:53 Dose: 25 mg Guaifenesin (Robitussin) 100 mg PO Q4H PRN PRN Reason: Cough Last Admin: 12/07/18 21:20 Dose: 100 mg Hydrocortisone Sodium Succinate (Solu-Cortef) 50 mg IV DAILY PRN PRN Reason: pre-transfusion Last Admin: 12/08/18 10:53 Dose: 50 mg Piperacillin Sod/Tazobactam Sod (Zosyn 3.375 Gm Iv Premix) 3.375 gm in 50 mls @ 100 mls/hr IVPB Q6 [facility]; Protocol Last Admin: 12/09/18 17:46 Dose: 100 mls/hr Pantoprazole Sodium (Protonix Ec Tab) 20 mg PO DAILY [facility] Last Admin: 12/09/18 10:55 Dose: 20 mg Tamsulosin HCl (Flomax) 0.4 mg PO BID [facility] Last Admin: 12/09/18 17:46 Dose: 0.4 mg - Labs Labs: 12/09/18 07:44 12/09/18 07:44 PT 13.5 SECONDS (9.7-12.2) H 12/06/18 06:07 INR 1.2 12/06/18 06:07 APTT 31 SECONDS (21-34) 12/06/18 06:07 - Head Exam Head Exam: ATRAUMATIC - Eye Exam Eye Exam: Normal appearance - ENT Exam ENT Exam: Mucous Membranes Dry - Respiratory Exam Respiratory Exam: NORMAL BREATHING PATTERN - Cardiovascular Exam Cardiovascular Exam: +S1, +S2 - GI/Abdominal Exam GI & Abdominal Exam: Normal Bowel Sounds Assessment and Plan (1) Pancytopenia Assessment & Plan: secondary to AML transfusion support goal hgb > 9 and plt > 20,000 neutropenic precautions Status: Acute (2) AML (acute myeloblastic leukemia) Assessment & Plan: outpatient treatment Status: Acute
--- NOTE | 2018-12-09 21:50 | CP.PCM.PN ---
Subjective - Date & Time of Evaluation Date of Evaluation: 12/09/18 Time of Evaluation: 13:00 - Subjective Subjective: No complaints, family at bedside. Objective - Vital Signs/Intake and Output Vital Signs (last 24 hours): Temp Pulse Resp BP Pulse Ox 98.2 F 85 19 134/50 L 97 12/09/18 17:23 12/09/18 19:45 12/09/18 17:23 12/09/18 17:23 12/09/18 16:00 Intake and Output: 12/09/18 12/10/18 18:59 06:59 Intake Total 1010 Output Total 400 Balance 610 - Medications Medications: Current Medications Acetaminophen (Tylenol 325mg Tab) 650 mg PO Q6 PRN PRN Reason: Fever >100.4 F Last Admin: 12/04/18 11:44 Dose: 650 mg Acetaminophen (Tylenol 325mg Tab) 650 mg PO ONCE PRN PRN Reason: Other Last Admin: 12/08/18 10:54 Dose: 650 mg Albuterol/Ipratropium (Duoneb 3 Mg/0.5 Mg (3 Ml) Ud) 3 ml INH RQ6 PRN PRN Reason: Shortness of Breath Last Admin: 12/09/18 19:44 Dose: 3 ml Benzocaine/Menthol (Cepacol Sore Throat) 1 miguel MT Q4H PRN PRN Reason: Sore Throat Last Admin: 12/07/18 09:42 Dose: 1 miguel Diphenhydramine HCl (Benadryl) 25 mg PO DAILY PRN PRN Reason: pre-transfusion Last Admin: 12/08/18 10:53 Dose: 25 mg Guaifenesin (Robitussin) 100 mg PO Q4H PRN PRN Reason: Cough Last Admin: 12/07/18 21:20 Dose: 100 mg Hydrocortisone Sodium Succinate (Solu-Cortef) 50 mg IV DAILY PRN PRN Reason: pre-transfusion Last Admin: 12/08/18 10:53 Dose: 50 mg Piperacillin Sod/Tazobactam Sod (Zosyn 3.375 Gm Iv Premix) 3.375 gm in 50 mls @ 100 mls/hr IVPB Q6 [facility]; Protocol Last Admin: 12/09/18 17:46 Dose: 100 mls/hr Pantoprazole Sodium (Protonix Ec Tab) 20 mg PO DAILY [facility] Last Admin: 12/09/18 10:55 Dose: 20 mg Tamsulosin HCl (Flomax) 0.4 mg PO BID [facility] Last Admin: 12/09/18 17:46 Dose: 0.4 mg - Labs Labs: 12/09/18 07:44 12/09/18 07:44 PT 13.5 SECONDS (9.7-12.2) H 12/06/18 06:07 INR 1.2 12/06/18 06:07 APTT 31 SECONDS (21-34) 12/06/18 06:07 - Head Exam Head Exam: ATRAUMATIC - Eye Exam Eye Exam: Normal appearance - ENT Exam ENT Exam: Mucous Membranes Dry - Respiratory Exam Respiratory Exam: NORMAL BREATHING PATTERN - Cardiovascular Exam Cardiovascular Exam: +S1, +S2 - GI/Abdominal Exam GI & Abdominal Exam: Normal Bowel Sounds Assessment and Plan (1) Pancytopenia Assessment & Plan: secondary to AML transfusion support goal hgb > 9 and plt > 20,000 neutropenic precautions Status: Acute (2) AML (acute myeloblastic leukemia) Assessment & Plan: outpatient treatment Status: Acute
[2018-12-10] MEDS: Piperacill/Tazo 3.375gm in Dex 3.375 GM/50 ML BAG IVPB SCH ×3 (05:00→18:05)
[2018-12-10 06:31] LABS: EOS % 0.1 % (0.0-4.0); HEMOGLOBIN 7.8 g/dL (12.0-18.0); LYMPH # 0.3 K/uL (1.0-4.3); LYMPH % 84.3 % (20.0-40.0); MEAN CELL VOLUME 89.7 fL (80.0-94.0); MEAN CORPUSCULAR HEMOGLOBIN 29.7 pg (27.0-31.0); MEAN CORPUSCULAR HGB CONC 33.1 g/dL (33.0-37.0); MEAN PLATELET VOLUME 9.5 fL (7.2-11.7); MONO # 0.1 K/uL (0.0-0.8); MONO % 14.2 % (0.0-10.0); NEUT % 1.4 % (50.0-75.0); NRBC % 0.4 % (0.0-2.0); RBC 2.62 Mil/uL (4.40-5.90); RED CELL DISTRIBUTION WIDTH 13.8 % (11.5-14.5)
[2018-12-10 06:39] LABS: WHITE BLOOD COUNT 0.4 K/uL (4.8-10.8)
--- NOTE | 2018-12-10 06:46 | CP.PCM.PN ---
Subjective - Date & Time of Evaluation Date of Evaluation: 12/10/18 Time of Evaluation: 08:00 - Subjective Subjective: Patient examined at bedside with family in room. Transferred out of ICU this morning to 3rd floor. Patient on neutropenic precautions. Discussion held with patient and family regarding discharge plan. Pt understands he will be transf used this weekend to be optimally discharged. Patient reports he is happy to go home and follow up with Dr. Bobby and Dr. Montoya outpatient for continued care. Denies chest pain, SOB, nausea, diarrhea. Objective - Vital Signs/Intake and Output Vital Signs (last 24 hours): Temp Pulse Resp BP Pulse Ox 98.8 F 85 20 151/64 H 98 12/10/18 06:00 12/10/18 06:00 12/10/18 06:00 12/10/18 06:00 12/10/18 06:00 Intake and Output: 12/09/18 12/10/18 18:59 06:59 Intake Total 1010 150 Output Total 400 710 Balance 610 -560 - Medications Medications: Current Medications Acetaminophen (Tylenol 325mg Tab) 650 mg PO Q6 PRN PRN Reason: Fever >100.4 F Last Admin: 12/04/18 11:44 Dose: 650 mg Acetaminophen (Tylenol 325mg Tab) 650 mg PO ONCE PRN PRN Reason: Other Last Admin: 12/08/18 10:54 Dose: 650 mg Albuterol/Ipratropium (Duoneb 3 Mg/0.5 Mg (3 Ml) Ud) 3 ml INH RQ6 PRN PRN Reason: Shortness of Breath Last Admin: 12/09/18 19:44 Dose: 3 ml Benzocaine/Menthol (Cepacol Sore Throat) 1 miguel MT Q4H PRN PRN Reason: Sore Throat Last Admin: 12/07/18 09:42 Dose: 1 miguel Diphenhydramine HCl (Benadryl) 25 mg PO DAILY PRN PRN Reason: pre-transfusion Last Admin: 12/08/18 10:53 Dose: 25 mg Guaifenesin (Robitussin) 100 mg PO Q4H PRN PRN Reason: Cough Last Admin: 12/07/18 21:20 Dose: 100 mg Hydrocortisone Sodium Succinate (Solu-Cortef) 50 mg IV DAILY PRN PRN Reason: pre-transfusion Last Admin: 12/08/18 10:53 Dose: 50 mg Piperacillin Sod/Tazobactam Sod (Zosyn 3.375 Gm Iv Premix) 3.375 gm in 50 mls @ 100 mls/hr IVPB Q6 [facility]; Protocol Last Admin: 12/10/18 05:00 Dose: 100 mls/hr Pantoprazole Sodium (Protonix Ec Tab) 20 mg PO DAILY [facility] Last Admin: 12/09/18 10:55 Dose: 20 mg Tamsulosin HCl (Flomax) 0.4 mg PO BID [facility] Last Admin: 12/09/18 17:46 Dose: 0.4 mg - Labs Labs: 12/10/18 06:26 12/09/18 07:44 PT 13.5 SECONDS (9.7-12.2) H 12/06/18 06:07 INR 1.2 12/06/18 06:07 APTT 31 SECONDS (21-34) 12/06/18 06:07 - Additional Findings Additional findings: - Constitutional Appears: Non-toxic, No Acute Distress, Chronically Ill - Head Exam Head Exam: ATRAUMATIC, NORMAL INSPECTION, NORMOCEPHALIC - Eye Exam Eye Exam: EOMI, Normal appearance - ENT Exam ENT Exam: Mucous Membranes Moist, Normal Exam Additional comments: on BiPAP - Neck Exam Neck Exam: Normal Inspection. absent: Lymphadenopathy - Respiratory Exam Respiratory Exam: Decreased Breath Sounds (diffusely), Rales (left). absent: NORMAL BREATHING PATTERN Additional comments: on NC left pigtail pulled, serous fluid draining. - Cardiovascular Exam Cardiovascular Exam: Tachycardia, REGULAR RHYTHM Additional comments: decreased heart sounds - GI/Abdominal Exam GI & Abdominal Exam: Guarding, Tenderness, Normal Bowel Sounds. absent: Distended - Extremities Exam Extremities Exam: Normal Inspection (muscle wasting). absent: Calf Tenderness, Pedal Edema - Neurological Exam Neurological Exam: Alert, Awake - Psychiatric Exam Psychiatric exam: Normal Affect, Normal Mood - Skin Skin Exam: Dry, Intact, Pallor, Warm Assessment and Plan - Assessment and Plan (Free Text) Assessment: 78 year old male w/ pmhx of AML, HTN, COPD, BPH admitted for evaluation of fevers, and treatment of pancytopenia and pneumothorax Plan: Pancytopenia, 2/2 AML(dx 09/2018) -hgb 7.8, platelets 19; s/p 1U PRBC and 2U platelets -transfuse platelets -goal hgb>9, plts>20K -neutropenic precautions -monitor labs and transfuse PRN -Dr. Bobby, Heme/Onc Left Pneumothorax/r/o PE -left pigtail pulled(12/10) -f/u repeat chest xray to evaluate s/p pigtail removal -pt refusing larger chest tube, note in chart with explicit wishes regarding refusal -tolerating NC -f/u with discharging with home oxygen -CTA(12/09): Pneumothorax decreasing. No finding of PE. Consolidation and pleural effusions. -CT sx, Dr. Nunes Fevers -afebrile, no leukocytosis -continue IV Abx: zosyn BPH -flomax -I/O Ppx VTE ppx: AC contraindicated in pancytopenia, SCDs GI ppx: protonix 20mg po qd Dispo: Patient to be transfused 2U platelets over tonight/tomorrow. Monitor hgb and plt levels and plan for d/c Thursday. Pt has an appt to f/u w/ Dr. Bobby on Thursday. Discussed w/ / Lindsay -Rhonda Amato, PGY-1
[2018-12-10 06:50] LABS: ALB/GLOB RATIO 0.9 (1.0-2.1); ALBUMIN 2.4 g/dL (3.5-5.0); ALT/SGPT 26 U/L (21-72); AST/SGOT 16 U/L (17-59); BLOOD UREA NITROGEN 18 mg/dL (9-20); GFR NON-AFRICAN AMERICAN > 60
[2018-12-10] MEDS: Pantoprazole 20 mg EC Tab PO SCH (09:15)
[2018-12-10] MEDS: Benzocaine/Menthol (Cepacol) Lozenge MT PRN (09:21)
[2018-12-10] MEDS: Albuterol-Ipratrop 3 mg / 0.5 (3 ml) UD INH PRN (10:48)
--- NOTE | 2018-12-10 18:15 | RAD ---
Date of service: 12/10/2018 HISTORY: s/p pigtail removal from left thorax COMPARISON: 12/08/2018. Single-view chest FINDINGS: LUNGS: Dense consolidative changes left upper and left lower lobe. Stable right lower lobe infiltrate. PLEURA: Persistent left pleural effusion. The pigtail catheter identified on the prior study in the left pleural space no longer seen. CARDIOVASCULAR: No atherosclerotic calcification present Normal. OSSEOUS STRUCTURES: No significant abnormalities. VISUALIZED UPPER ABDOMEN: Normal. OTHER FINDINGS: None. IMPRESSION: Status post pigtail catheter removal left pleural space. No pneumothorax. Stable infiltrates.
--- NOTE | 2018-12-10 20:59 | CP.PCM.PN ---
Subjective - Date & Time of Evaluation Date of Evaluation: 12/10/18 Time of Evaluation: 12:00 - Subjective Subjective: No complaints. Objective - Vital Signs/Intake and Output Vital Signs (last 24 hours): Temp Pulse Resp BP Pulse Ox 98.5 F 114 H 20 135/63 98 12/10/18 16:00 12/10/18 16:00 12/10/18 16:00 12/10/18 16:00 12/10/18 16:00 Intake and Output: 12/10/18 12/11/18 18:59 06:59 Intake Total 450 Output Total 730 Balance -280 - Medications Medications: Current Medications Acetaminophen (Tylenol 325mg Tab) 650 mg PO Q6 PRN PRN Reason: Fever >100.4 F Last Admin: 12/04/18 11:44 Dose: 650 mg Acetaminophen (Tylenol 325mg Tab) 650 mg PO ONCE PRN PRN Reason: Other Last Admin: 12/08/18 10:54 Dose: 650 mg Albuterol/Ipratropium (Duoneb 3 Mg/0.5 Mg (3 Ml) Ud) 3 ml INH RQ6 PRN PRN Reason: Shortness of Breath Last Admin: 12/10/18 10:48 Dose: 3 ml Benzocaine/Menthol (Cepacol Sore Throat) 1 miguel MT Q4H PRN PRN Reason: Sore Throat Last Admin: 12/10/18 09:21 Dose: 1 miguel Diphenhydramine HCl (Benadryl) 25 mg PO DAILY PRN PRN Reason: pre-transfusion Last Admin: 12/08/18 10:53 Dose: 25 mg Guaifenesin (Robitussin) 100 mg PO Q4H PRN PRN Reason: Cough Last Admin: 12/07/18 21:20 Dose: 100 mg Hydrocortisone Sodium Succinate (Solu-Cortef) 50 mg IV DAILY PRN PRN Reason: pre-transfusion Last Admin: 12/08/18 10:53 Dose: 50 mg Piperacillin Sod/Tazobactam Sod (Zosyn 3.375 Gm Iv Premix) 3.375 gm in 50 mls @ 100 mls/hr IVPB Q6 [facility]; Protocol Last Admin: 12/10/18 18:05 Dose: 100 mls/hr Pantoprazole Sodium (Protonix Ec Tab) 20 mg PO DAILY [facility] Last Admin: 12/10/18 09:15 Dose: 20 mg Tamsulosin HCl (Flomax) 0.[address] [facility] Last Admin: 12/10/18 18:04 Dose: 0.4 mg - Labs Labs: 12/10/18 06:26 12/10/18 06:24 PT 13.5 SECONDS (9.7-12.2) H 12/06/18 06:07 INR 1.2 12/06/18 06:07 APTT 31 SECONDS (21-34) 12/06/18 06:07 - Head Exam Head Exam: ATRAUMATIC - Eye Exam Eye Exam: Normal appearance - ENT Exam ENT Exam: Mucous Membranes Dry - Respiratory Exam Respiratory Exam: NORMAL BREATHING PATTERN - Cardiovascular Exam Cardiovascular Exam: +S1, +S2 - GI/Abdominal Exam GI & Abdominal Exam: Normal Bowel Sounds Assessment and Plan (1) Pancytopenia Assessment & Plan: secondary to AML transfusion support goal hgb > 9 and plt > 20,000 neutropenic precautions Status: Acute (2) AML (acute myeloblastic leukemia) Assessment & Plan: outpatient treatment Status: Acute
[2018-12-11] MEDS: guaiFENesin 100 mg/5 ml Syrup UD PO PRN (00:53)
[2018-12-11] MEDS: Piperacill/Tazo 3.375gm in Dex 3.375 GM/50 ML BAG IVPB SCH ×4 (00:53→18:12)
[2018-12-11 07:36] LABS: BASO % 0.1 % (0.0-2.0); EOS % 0.2 % (0.0-4.0); HEMOGLOBIN 7.2 g/dL (12.0-18.0); LYMPH # 0.1 K/uL (1.0-4.3); LYMPH % 34.6 % (20.0-40.0); MEAN CELL VOLUME 88.6 fL (80.0-94.0); MEAN CORPUSCULAR HEMOGLOBIN 29.8 pg (27.0-31.0); MEAN CORPUSCULAR HGB CONC 33.6 g/dL (33.0-37.0); MEAN PLATELET VOLUME 9.5 fL (7.2-11.7); MONO # 0.2 K/uL (0.0-0.8); MONO % 62.5 % (0.0-10.0); NEUT % 2.6 % (50.0-75.0); NRBC % 0.4 % (0.0-2.0); RBC 2.42 Mil/uL (4.40-5.90); RED CELL DISTRIBUTION WIDTH 13.7 % (11.5-14.5)
[2018-12-11 07:38] LABS: ALB/GLOB RATIO 0.9 (1.0-2.1); ALBUMIN 2.4 g/dL (3.5-5.0); ALT/SGPT 26 U/L (21-72); AST/SGOT 15 U/L (17-59); BLOOD UREA NITROGEN 18 mg/dL (9-20); CALCIUM 8.2 mg/dl (8.6-10.4); GFR NON-AFRICAN AMERICAN > 60
[2018-12-11 07:42] LABS: WHITE BLOOD COUNT 0.4 K/uL (4.8-10.8)
--- NOTE | 2018-12-11 08:52 | CP.PCM.PN ---
Subjective - Date & Time of Evaluation Date of Evaluation: 12/11/18 Time of Evaluation: 08:51 - Subjective Subjective: PGY2 Medicine Note for Dr. Montoya Patient seen and examined at bedside. Patient was transfused one unit of platelets last night and is currently pending a second unit. He is currently feeling well and has no complaints. Objective - Vital Signs/Intake and Output Vital Signs (last 24 hours): Temp Pulse Resp BP Pulse Ox 97.7 F 74 20 125/68 100 12/11/18 08:02 12/11/18 08:02 12/11/18 08:02 12/11/18 08:02 12/11/18 08:02 Intake and Output: 12/11/18 12/11/18 06:59 18:59 Intake Total 658 558 Output Total 300 500 Balance 358 58 - Medications Medications: Current Medications Acetaminophen (Tylenol 325mg Tab) 650 mg PO Q6 PRN PRN Reason: Fever >100.4 F Last Admin: 12/04/18 11:44 Dose: 650 mg Acetaminophen (Tylenol 325mg Tab) 650 mg PO ONCE PRN PRN Reason: Other Last Admin: 12/11/18 01:45 Dose: 650 mg Albuterol/Ipratropium (Duoneb 3 Mg/0.5 Mg (3 Ml) Ud) 3 ml INH RQ6 PRN PRN Reason: Shortness of Breath Last Admin: 12/10/18 10:48 Dose: 3 ml Benzocaine/Menthol (Cepacol Sore Throat) 1 miguel MT Q4H PRN PRN Reason: Sore Throat Last Admin: 12/10/18 09:21 Dose: 1 miguel Diphenhydramine HCl (Benadryl) 25 mg PO DAILY PRN PRN Reason: pre-transfusion Last Admin: 12/11/18 01:45 Dose: 25 mg Guaifenesin (Robitussin) 100 mg PO Q4H PRN PRN Reason: Cough Last Admin: 12/11/18 00:53 Dose: 100 mg Hydrocortisone Sodium Succinate (Solu-Cortef) 50 mg IV DAILY PRN PRN Reason: pre-transfusion Last Admin: 12/11/18 01:50 Dose: 50 mg Piperacillin Sod/Tazobactam Sod (Zosyn 3.375 Gm Iv Premix) 3.375 gm in 50 mls @ 100 mls/hr IVPB Q6 [facility]; Protocol Last Admin: 12/11/18 05:29 Dose: 100 mls/hr Pantoprazole Sodium (Protonix Ec Tab) 20 mg PO DAILY [facility] Last Admin: 12/10/18 09:15 Dose: 20 mg Tamsulosin HCl (Flomax) 0.4 mg PO BID [facility] Last Admin: 12/10/18 18:04 Dose: 0.4 mg - Labs Labs: 12/11/18 07:16 12/11/18 07:16 PT 13.5 SECONDS (9.7-12.2) H 12/06/18 06:07 INR 1.2 12/06/18 06:07 APTT 31 SECONDS (21-34) 12/06/18 06:07 - Additional Findings Additional findings: - Constitutional Appears: Non-toxic, No Acute Distress, Cachectic, Chronically Ill - Head Exam Head Exam: ATRAUMATIC, NORMAL INSPECTION, NORMOCEPHALIC - Eye Exam Eye Exam: EOMI, Normal appearance - ENT Exam ENT Exam: Mucous Membranes Moist, Normal Exam Additional comments: on BiPAP - Neck Exam Neck Exam: Normal Inspection. absent: Lymphadenopathy - Respiratory Exam Respiratory Exam: Decreased Breath Sounds (diffusely), Rales (left). absent: NORMAL BREATHING PATTERN Additional comments: on NC dressing from previous pig tail c/d/i on left side - Cardiovascular Exam Cardiovascular Exam: Tachycardia, REGULAR RHYTHM - GI/Abdominal Exam GI & Abdominal Exam: Guarding, Tenderness, Normal Bowel Sounds. absent: Distended - Extremities Exam Extremities Exam: Normal Inspection (muscle wasting). absent: Calf Tenderness, Pedal Edema - Neurological Exam Neurological Exam: Alert, Awake - Psychiatric Exam Psychiatric exam: Normal Affect, Normal Mood - Skin Skin Exam: Dry, Intact, Pallor, Warm Assessment and Plan - Assessment and Plan (Free Text) Plan: 78 year old male w/ pmhx of AML, HTN, COPD, BPH admitted for evaluation of fevers, and treatment of pancytopenia and pneumothorax Pancytopenia, 2/ AML(dx 09/2018) -hgb 7.2, platelets 24; * transfused 1U PRBC and 2U platelets on 12/10/18 * goal hgb>9, plts>20K -neutropenic precautions -monitor labs and transfuse PRN -Dr. Bobby, Heme/Onc Left Pneumothorax/r/o PE -left pigtail pulled(12/10) -f/u repeat chest xray to evaluate s/p pigtail removal -pt refusing larger chest tube, note in chart with explicit wishes regarding refusal -tolerating NC -f/u with discharging with home oxygen -CTA(12/09): Pneumothorax decreasing. No finding of PE. Consolidation and pleural effusions. -CT sx, Dr. Nunes Fevers -afebrile, no leukocytosis -continue IV Abx: zosyn BPH -flomax -I/O Prophylactic Care VTE ppx: AC contraindicated in pancytopenia, SCDs GI ppx: protonix 20mg po qd Dispo: Monitor hgb and plt levels and plan for d/c Thursday. Pt has an appt to f/u w/ Dr. Bobby on Thursday. Will discuss with Dr. Lindsay Pastor Lise PGY2
[2018-12-11] MEDS ORDERED: DiphenhydrAMINE 50 mg/ml Inj IVP PRN (09:00)
[2018-12-11] MEDS: Pantoprazole 20 mg EC Tab PO SCH (10:01)
[2018-12-12] MEDS: Piperacill/Tazo 3.375gm in Dex 3.375 GM/50 ML BAG IVPB SCH ×2 (05:23)
[2018-12-12 07:42] LABS: HEMOGLOBIN 6.9 g/dL (12.0-18.0); LYMPH # 0.3 K/uL (1.0-4.3); LYMPH % 84.1 % (20.0-40.0); MEAN CELL VOLUME 89.2 fL (80.0-94.0); MEAN CORPUSCULAR HEMOGLOBIN 30.2 pg (27.0-31.0); MEAN CORPUSCULAR HGB CONC 33.8 g/dL (33.0-37.0); MEAN PLATELET VOLUME 9.2 fL (7.2-11.7); MONO # 0.1 K/uL (0.0-0.8); MONO % 14.9 % (0.0-10.0); NRBC % 0.9 % (0.0-2.0); RBC 2.29 Mil/uL (4.40-5.90); RED CELL DISTRIBUTION WIDTH 13.7 % (11.5-14.5)
[2018-12-12 07:51] LABS: WHITE BLOOD COUNT 0.4 K/uL (4.8-10.8)
[2018-12-12 08:04] LABS: ALB/GLOB RATIO 0.9 (1.0-2.1); ALBUMIN 2.5 g/dL (3.5-5.0); ALT/SGPT 22 U/L (21-72); AST/SGOT 13 U/L (17-59); BLOOD UREA NITROGEN 24 mg/dL (9-20); CALCIUM 8.3 mg/dl (8.6-10.4); GFR NON-AFRICAN AMERICAN > 60
[2018-12-12] MEDS: Pantoprazole 20 mg EC Tab PO SCH (09:08)
[2018-12-12] MEDS ORDERED: Potassium Chloride 20 mEq ER Tab PO STA (13:07)
--- NOTE | 2018-12-12 14:09 | CP.PCM.PN ---
Subjective - Date & Time of Evaluation Date of Evaluation: 12/12/18 Time of Evaluation: 14:09 - Subjective Subjective: PGY2 Medicine Note for Dr. Montoya Patient seen and examined this morning at bedside. No acute events overnight. Patient feels comfortable with BiPAP in place. He is feeling well and has no complaints at this time. Denies any pain. Objective - Vital Signs/Intake and Output Vital Signs (last 24 hours): Temp Pulse Resp BP Pulse Ox 97.7 F 74 20 111/55 L 100 12/12/18 00:00 12/12/18 04:30 12/12/18 00:00 12/12/18 00:00 12/12/18 00:00 Intake and Output: 12/12/18 12/12/18 06:59 18:59 Intake Total 500 Balance 500 - Medications Medications: Current Medications Acetaminophen (Tylenol 325mg Tab) 650 mg PO Q6 PRN PRN Reason: Fever >100.4 F Last Admin: 12/04/18 11:44 Dose: 650 mg Acetaminophen (Tylenol 325mg Tab) 650 mg PO ONCE PRN PRN Reason: Other Last Admin: 12/11/18 01:45 Dose: 650 mg Acetaminophen (Tylenol 325mg Tab) 650 mg PO ONCE PRN PRN Reason: pretransfusion Last Admin: 12/11/18 10:46 Dose: 650 mg Albuterol/Ipratropium (Duoneb 3 Mg/0.5 Mg (3 Ml) Ud) 3 ml INH RQ6 PRN PRN Reason: Shortness of Breath Last Admin: 12/10/18 10:48 Dose: 3 ml Benzocaine/Menthol (Cepacol Sore Throat) 1 miguel MT Q4H PRN PRN Reason: Sore Throat Last Admin: 12/10/18 09:21 Dose: 1 miguel Diphenhydramine HCl (Benadryl) 25 mg PO DAILY PRN PRN Reason: pre-transfusion Last Admin: 12/11/18 10:46 Dose: 25 mg Guaifenesin (Robitussin) 100 mg PO Q4H PRN PRN Reason: Cough Last Admin: 12/11/18 00:53 Dose: 100 mg Hydrocortisone Sodium Succinate (Solu-Cortef) 50 mg IV DAILY PRN PRN Reason: pre-transfusion Last Admin: 12/11/18 10:47 Dose: 50 mg Pantoprazole Sodium (Protonix Ec Tab) 20 mg PO DAILY [facility] Last Admin: 12/12/18 09:08 Dose: 20 mg Tamsulosin HCl (Flomax) 0.4 mg PO BID [facility] Last Admin: 12/12/18 09:08 Dose: 0.4 mg - Labs Labs: 12/12/18 07:32 12/12/18 07:32 PT 13.5 SECONDS (9.7-12.2) H 12/06/18 06:07 INR 1.2 12/06/18 06:07 APTT 31 SECONDS (21-34) 12/06/18 06:07 - Additional Findings Additional findings: - Constitutional Appears: Non-toxic, No Acute Distress, Cachectic, Chronically Ill - Head Exam Head Exam: ATRAUMATIC, NORMAL INSPECTION, NORMOCEPHALIC - Eye Exam Eye Exam: EOMI, Normal appearance - ENT Exam ENT Exam: Mucous Membranes Moist, Normal Exam Additional comments: on BiPAP - Neck Exam Neck Exam: Normal Inspection. absent: Lymphadenopathy - Respiratory Exam Respiratory Exam: Decreased Breath Sounds (diffusely), Rales (left). absent: NORMAL BREATHING PATTERN Additional comments: on NC dressing from previous pig tail c/d/i on left side - Cardiovascular Exam Cardiovascular Exam: Tachycardia, REGULAR RHYTHM - GI/Abdominal Exam GI & Abdominal Exam: Guarding, Tenderness, Normal Bowel Sounds. absent: Distended - Extremities Exam Extremities Exam: Normal Inspection (muscle wasting). absent: Calf Tenderness, Pedal Edema - Neurological Exam Neurological Exam: Alert, Awake - Psychiatric Exam Psychiatric exam: Normal Affect, Normal Mood - Skin Skin Exam: Dry, Intact, Pallor, Warm Assessment and Plan - Assessment and Plan (Free Text) Plan: 78 year old male w/ pmhx of AML, HTN, COPD, BPH admitted for evaluation of fevers, and treatment of pancytopenia and pneumothorax Pancytopenia, / AML(dx 09/2018) -hgb 6.9, platelets 24; * transfused 1U pRBCs on 12/12/18 * transfused 1U PRBC and 2U platelets on 12/10/18 * goal hgb>9, plts>20K -neutropenic precautions -monitor labs and transfuse PRN -Dr. Bobby, Heme/Onc Left Pneumothorax/r/o PE -left pigtail pulled(12/10) -f/u repeat chest xray to evaluate s/p pigtail removal -pt refusing larger chest tube, note in chart with explicit wishes regarding refusal -tolerating NC -f/u with discharging with home oxygen -CTA(12/09): Pneumothorax decreasing. No finding of PE. Consolidation and pleural effusions. -CT sx, Dr. Nunes Fevers -afebrile, no leukocytosis -continue IV Abx: zosyn BPH -flomax -I/O Prophylactic Care VTE ppx: AC contraindicated in pancytopenia, SCDs GI ppx: protonix 20mg po qd Dispo: Patient was not discharged home on Thursday due to being uncomfortable on oxygen alone. Patient will hopefully be discharged home on Thursday but will need to help set up BiPAP at home for patient. Family is also concerned about taking patient home prior to having hospital bed in place. They are requesting patient remain in the hospital until all supplies have arrived at their house. Case discussed with Dr. Lindsay Pastor Lise PGY2
[2018-12-13 06:24] LABS: ALB/GLOB RATIO 0.8 (1.0-2.1); ALBUMIN 2.2 g/dL (3.5-5.0); ALT/SGPT 19 U/L (21-72); AST/SGOT 10 U/L (17-59); BLOOD UREA NITROGEN 25 mg/dL (9-20); CALCIUM 8.1 mg/dl (8.6-10.4); GFR NON-AFRICAN AMERICAN > 60
[2018-12-13 06:25] LABS: EOS % 0.2 % (0.0-4.0); HEMOGLOBIN 7.4 g/dL (12.0-18.0); LYMPH # 0.2 K/uL (1.0-4.3); LYMPH % 72.4 % (20.0-40.0); MEAN CELL VOLUME 89.1 fL (80.0-94.0); MEAN CORPUSCULAR HEMOGLOBIN 29.8 pg (27.0-31.0); MEAN CORPUSCULAR HGB CONC 33.4 g/dL (33.0-37.0); MEAN PLATELET VOLUME 9.3 fL (7.2-11.7); MONO # 0.1 K/uL (0.0-0.8); NEUT % 5.4 % (50.0-75.0); NRBC % 2.4 % (0.0-2.0); RBC 2.49 Mil/uL (4.40-5.90); RED CELL DISTRIBUTION WIDTH 13.3 % (11.5-14.5)
[2018-12-13 06:34] LABS: WHITE BLOOD COUNT 0.3 K/uL (4.8-10.8)
--- NOTE | 2018-12-13 08:05 | CP.PCM.PN ---
Subjective - Date & Time of Evaluation Date of Evaluation: 12/13/18 Time of Evaluation: 09:00 - Subjective Subjective: Patient examined at bedside. No acute overnight events. Patient is upset assistance has not come after pushing the button for help, and he needs to use the restroom. Patient reports he feels otherwise unchanged. He has been requiring more frequent use of O2 via BiPAP, and breathing treatments. He wants to ensure his home supplies are appropriately set up and in place for his discharge home. Patient's daughter arrived and discussion was held regarding home needs. Social work was included in the discussion to facilitate and coordinate process. Family understands they will have to follow up with Dr. Bobby immediately upon d ischarge to monitor lab values, and transfuse accordingly Objective - Vital Signs/Intake and Output Vital Signs (last 24 hours): Temp Pulse Resp BP Pulse Ox 98 F 74 20 136/75 99 12/13/18 00:00 12/13/18 01:00 12/13/18 00:00 12/13/18 00:00 12/13/18 00:00 Intake and Output: 12/13/18 12/13/18 06:59 18:59 Intake Total 899 Balance 899 - Medications Medications: Current Medications Acetaminophen (Tylenol 325mg Tab) 650 mg PO Q6 PRN PRN Reason: Fever >100.4 F Last Admin: 12/04/18 11:44 Dose: 650 mg Acetaminophen (Tylenol 325mg Tab) 650 mg PO ONCE PRN PRN Reason: Other Last Admin: 12/11/18 01:45 Dose: 650 mg Acetaminophen (Tylenol 325mg Tab) 650 mg PO ONCE PRN PRN Reason: pretransfusion Last Admin: 12/11/18 10:46 Dose: 650 mg Acetaminophen (Tylenol 325mg Tab) 650 mg PO DAILY PRN PRN Reason: pre-transfusion Last Admin: 12/12/18 19:52 Dose: 650 mg Albuterol/Ipratropium (Duoneb 3 Mg/0.5 Mg (3 Ml) Ud) 3 ml INH RQ6 PRN PRN Reason: Shortness of Breath Last Admin: 12/10/18 10:48 Dose: 3 ml Benzocaine/Menthol (Cepacol Sore Throat) 1 miguel MT Q4H PRN PRN Reason: Sore Throat Last Admin: 12/10/18 09:21 Dose: 1 miguel Diphenhydramine HCl (Benadryl) 25 mg PO DAILY PRN PRN Reason: pre-transfusion Last Admin: 12/12/18 19:52 Dose: 25 mg Guaifenesin (Robitussin) 100 mg PO Q4H PRN PRN Reason: Cough Last Admin: 12/11/18 00:53 Dose: 100 mg Hydrocortisone Sodium Succinate (Solu-Cortef) 50 mg IV DAILY PRN PRN Reason: pre-transfusion Last Admin: 12/12/18 19:55 Dose: 50 mg Pantoprazole Sodium (Protonix Ec Tab) 20 mg PO DAILY [facility] Last Admin: 12/12/18 09:08 Dose: 20 mg Tamsulosin HCl (Flomax) 0.4 mg PO BID [facility] Last Admin: 12/12/18 17:20 Dose: 0.4 mg - Labs Labs: 12/13/18 06:05 12/13/18 06:05 PT 13.5 SECONDS (9.7-12.2) H 12/06/18 06:07 INR 1.2 12/06/18 06:07 APTT 31 SECONDS (21-34) 12/06/18 06:07 - Additional Findings Additional findings: - Constitutional Appears: Non-toxic, No Acute Distress, Cachectic, Chronically Ill - Head Exam Head Exam: ATRAUMATIC, NORMAL INSPECTION, NORMOCEPHALIC - Eye Exam Eye Exam: EOMI, Normal appearance - ENT Exam ENT Exam: Mucous Membranes Moist, Normal Exam Additional comments: on BiPAP - Neck Exam Neck Exam: Normal Inspection. absent: Lymphadenopathy - Respiratory Exam Respiratory Exam: Decreased Breath Sounds (diffusely), Rales (left). absent: NORMAL BREATHING PATTERN Additional comments: on NC dressing from previous pig tail c/d/i on left side, no drainage visualized - Cardiovascular Exam Cardiovascular Exam: Tachycardia, REGULAR RHYTHM - GI/Abdominal Exam GI & Abdominal Exam: Guarding, Tenderness, Normal Bowel Sounds. absent: Distended - Extremities Exam Extremities Exam: Normal Inspection (muscle wasting). absent: Calf Tenderness, Pedal Edema - Neurological Exam Neurological Exam: Alert, Awake - Psychiatric Exam Psychiatric exam: Normal Affect, Normal Mood - Skin Skin Exam: Dry, Intact, Pallor, Warm Assessment and Plan - Assessment and Plan (Free Text) Assessment: 78 year old male w/ pmhx of AML, HTN, COPD, BPH admitted for evaluation of fevers, and treatment of pancytopenia and pneumothorax Plan: Pancytopenia, 2/ AML(dx 09/2018) to be transfused 2U platelets today * transfused 1U pRBCs on 12/12/18 * transfused 1U PRBC and 2U platelets on 12/10/18 * goal hgb>9, plts>20K -neutropenic precautions -monitor labs and transfuse PRN -Dr. Bobby, Heme/Onc Left Pneumothorax/r/o PE -left pigtail pulled(12/10) -pt refusing larger chest tube, note in chart with explicit wishes regarding ref usal -tolerating NC and BiPAP, will require home O2 -CTA(12/09): Pneumothorax decreasing. No finding of PE. Consolidation and pleural effusions. -CT sx, Dr. Nunes Fevers -afebrile, no leukocytosis BPH -flomax -I/O Prophylactic Care VTE ppx: AC contraindicated in pancytopenia, SCDs GI ppx: protonix 20mg po qd DISPO: Respiratory Distress Patient requires Trilogy non-invasive ventilation, indicated for patient's chronic respiratory failure due to patient's condition of symptomatic anemia secondary to AML and chronic COPD. Patient requires Trilogy non-invasive ventilation in AVAPS mode at home, and battery back ups as there can be no interruption to therapy. Pt requires both day/night time use to maintain CO2 levels within normal limits. Discussed w/ pt. BiPAP not advised. Patient also requires oxygen therapy at home, both full tank and portable. Patient cannot maintain saturation without O2 therapy, and desaturates <88% on room air. Patient also requires the use of home hospital bed, wheelchair, commode, and shower chair as pt prolonged immobility, needs assistance with ADL, and must travel to and from appointments on a frequent basis. Discussed with Dr. Lindsay Amato, PGY-1
[2018-12-13] MEDS: Pantoprazole 20 mg EC Tab PO SCH (09:51)
[2018-12-13] MEDS: Albuterol-Ipratrop 3 mg / 0.5 (3 ml) UD INH PRN (10:10)
--- NOTE | 2018-12-13 22:50 | CP.PCM.PN ---
Subjective - Date & Time of Evaluation Date of Evaluation: 12/13/18 Time of Evaluation: 16:00 - Subjective Subjective: Has some shortness of breath. Objective - Vital Signs/Intake and Output Vital Signs (last 24 hours): Temp Pulse Resp BP Pulse Ox 97.7 F 70 20 122/58 L 98 12/13/18 22:21 12/13/18 22:21 12/13/18 22:21 12/13/18 22:21 12/13/18 16:00 Intake and Output: 12/13/18 12/14/18 18:59 06:59 Intake Total 1088 900 Balance 1088 900 - Medications Medications: Current Medications Acetaminophen (Tylenol 325mg Tab) 650 mg PO Q6 PRN PRN Reason: Fever >100.4 F Last Admin: 12/04/18 11:44 Dose: 650 mg Acetaminophen (Tylenol 325mg Tab) 650 mg PO ONCE PRN PRN Reason: Other Last Admin: 12/13/18 14:17 Dose: 650 mg Acetaminophen (Tylenol 325mg Tab) 650 mg PO ONCE PRN PRN Reason: pretransfusion Last Admin: 12/11/18 10:46 Dose: 650 mg Acetaminophen (Tylenol 325mg Tab) 650 mg PO DAILY PRN PRN Reason: pre-transfusion Last Admin: 12/13/18 20:46 Dose: 650 mg Albuterol/Ipratropium (Duoneb 3 Mg/0.5 Mg (3 Ml) Ud) 3 ml INH RQ6 PRN PRN Reason: Shortness of Breath Last Admin: 12/13/18 10:10 Dose: 3 ml Benzocaine/Menthol (Cepacol Sore Throat) 1 miguel MT Q4H PRN PRN Reason: Sore Throat Last Admin: 12/10/18 09:21 Dose: 1 miguel Diphenhydramine HCl (Benadryl) 25 mg PO DAILY PRN PRN Reason: pre-transfusion Last Admin: 12/13/18 20:45 Dose: 25 mg Guaifenesin (Robitussin) 100 mg PO Q4H PRN PRN Reason: Cough Last Admin: 12/11/18 00:53 Dose: 100 mg Hydrocortisone Sodium Succinate (Solu-Cortef) 50 mg IV DAILY PRN PRN Reason: pre-transfusion Last Admin: 12/12/18 19:55 Dose: 50 mg Pantoprazole Sodium (Protonix Ec Tab) 20 mg PO DAILY [facility] Last Admin: 12/13/18 09:51 Dose: 20 mg Tamsulosin HCl (Flomax) 0.4 mg PO BID [facility] Last Admin: 12/13/18 18:31 Dose: 0.4 mg - Labs Labs: 12/13/18 06:05 12/13/18 06:05 PT 13.5 SECONDS (9.7-12.2) H 12/06/18 06:07 INR 1.2 12/06/18 06:07 APTT 31 SECONDS (21-34) 12/06/18 06:07 - Head Exam Head Exam: ATRAUMATIC - Eye Exam Eye Exam: Normal appearance - ENT Exam ENT Exam: Mucous Membranes Dry - Respiratory Exam Respiratory Exam: NORMAL BREATHING PATTERN - Cardiovascular Exam Cardiovascular Exam: +S1, +S2 - GI/Abdominal Exam GI & Abdominal Exam: Normal Bowel Sounds Assessment and Plan (1) Pancytopenia Assessment & Plan: secondary to AML transfusion support goal hgb > 9 and plt > 20,000 neutropenic precautions Status: Acute (2) AML (acute myeloblastic leukemia) Assessment & Plan: outpatient treatment Status: Acute
[2018-12-14 07:24] LABS: HEMOGLOBIN 7.8 g/dL (12.0-18.0); LYMPH # 0.3 K/uL (1.0-4.3); LYMPH % 69.2 % (20.0-40.0); MEAN CELL VOLUME 88.8 fL (80.0-94.0); MEAN CORPUSCULAR HEMOGLOBIN 30.2 pg (27.0-31.0); MEAN PLATELET VOLUME 8.7 fL (7.2-11.7); MONO # 0.1 K/uL (0.0-0.8); NEUT % 1.8 % (50.0-75.0); NRBC % 1.1 % (0.0-2.0); RBC 2.57 Mil/uL (4.40-5.90); RED CELL DISTRIBUTION WIDTH 13.4 % (11.5-14.5)
[2018-12-14 07:26] LABS: WHITE BLOOD COUNT 0.4 K/uL (4.8-10.8)
--- NOTE | 2018-12-14 07:51 | CP.PCM.DIS ---
Provider - Provider Date of Admission: 11/29/18 18:55 Attending physician: Andrzej Montoya Jr, MD Primary care physician: Dr. Montoya Consults: 11/29/18 19:31 Hematology Oncology Consult Routine Comment: Consulting Provider: Kartik Bobby Consulting Physician: Kartik Bobby Reason for Consult: AML, code sepsis 12/01/18 09:53 Palliative Care Consult Routine Comment: Consulting Provider: Cailin Rockwell Physician Instructions: Reason For Exam: Hx of new dx AML, discuss goals of care 12/02/18 13:38 General Surgery Consult Routine Comment: Consulting Provider: Michael Nunes Consulting Physician: Michael Nunes Reason for Consult: Pneumothorax, chest tube placement Time Spent in preparation of Discharge (in minutes): 60 Diagnosis - Discharge Diagnosis (1) AML (acute myeloblastic leukemia) Status: Chronic Priority: High (2) Pancytopenia Status: Chronic Priority: High (3) Pneumothorax Status: Acute Priority: High (4) Fever Status: Acute Priority: Medium (5) BPH (benign prostatic hyperplasia) Status: Chronic Priority: Low Hospital Course - Lab Results Lab Results: Micro Results 12/01/18 17:21 Blood Blood Culture - Final NO GROWTH AFTER 5 DAYS 12/01/18 17:21 Blood Gram Stain - Final TEST NOT PERFORMED 12/01/18 18:46 Blood Blood Culture - Final No growth. 12/01/18 18:46 Blood Gram Stain - Final 11/30/18 10:00 Blood Blood Culture - Final NO GROWTH AFTER 5 DAYS 11/30/18 10:00 Blood Gram Stain - Final 11/29/18 18:00 Blood Blood Culture - Final NO GROWTH AFTER 5 DAYS 11/29/18 18:00 Blood Gram Stain - Final TEST NOT PERFORMED 11/29/18 17:30 Blood Blood Culture - Final NO GROWTH AFTER 5 DAYS 11/29/18 17:30 Blood Gram Stain - Final TEST NOT PERFORMED 11/30/18 09:31 Naris MRSA Culture (Admit) - Final MRSA NOT DETECTED Most Recent Lab Values WBC 0.4 K/uL (4.8-10.8) L* 12/14/18 07:03 RBC 2.57 Mil/uL (4.40-5.90) L 12/14/18 07:03 Hgb 7.8 g/dL (12.0-18.0) L 12/14/18 07:03 Hct 22.8 % (35.0-51.0) L 12/14/18 07:03 MCV 88.8 fL (80.0-94.0) 12/14/18 07:03 MCH 30.2 pg (27.0-31.0) 12/14/18 07:03 MCHC 34.0 g/dL (33.0-37.0) 12/14/18 07:03 RDW 13.4 % (11.5-14.5) 12/14/18 07:03 Plt Count 44 K/uL (130-400) L D 12/14/18 07:03 Manual Plt Count 7 K/uL (130-400) L* D 12/08/18 06:35 MPV 8.7 fL (7.2-11.7) 12/14/18 07:03 Neut % (Auto) 1.8 % (50.0-75.0) L 12/14/18 07:03 Lymph % (Auto) 69.2 % (20.0-40.0) H 12/14/18 07:03 Burnett % (Auto) 29.0 % (0.0-10.0) H 12/14/18 07:03 Eos % (Auto) 0.0 % (0.0-4.0) 12/14/18 07:03 Baso % (Auto) 0.0 % (0.0-2.0) 12/14/18 07:03 Neut # (Auto) 0.0 K/uL (1.8-7.0) L 12/14/18 07:03 Lymph # (Auto) 0.3 K/uL (1.0-4.3) L 12/14/18 07:03 [place]ett # (Auto) 0.1 K/uL (0.0-0.8) 12/14/18 07:03 Eos # (Auto) 0.0 K/uL (0.0-0.7) 12/14/18 07:03 Baso # (Auto) 0.0 K/uL (0.0-0.2) 12/14/18 07:03 Total Counted Cancelled 11/29/18 18:00 Neutrophils % (Manual) 1 % (50-75) L 12/01/18 05:49 Band Neutrophils % Cancelled 11/29/18 18:00 Lymphocytes % (Manual) 59 % (20-40) H 12/01/18 05:49 Reactive Lymphs % Cancelled 11/29/18 18:00 Monocytes % (Manual) 40 % (0-10) H 12/01/18 05:49 Eosinophils % (Manual) Cancelled 11/29/18 18:00 Basophils % (Manual) Cancelled 11/29/18 18:00 Metamyelocytes % Cancelled 11/29/18 18:00 Myelocytes % Cancelled 11/29/18 18:00 Promyelocytes % Cancelled 11/29/18 18:00 Blast Cells % Cancelled 11/29/18 18:00 Plasma Cell % (Manual) Cancelled 11/29/18 18:00 Nucleated RBC % 1 % (0-0) H 12/01/18 05:49 Differential Comment 12/11/18 07:16 Hypersegmented Polys Cancelled 11/29/18 18:00 Smudge Cells Cancelled 11/29/18 18:00 Toxic Granulation Cancelled 11/29/18 18:00 Dohle Bodies Cancelled 11/29/18 18:00 Nazanin Rods Cancelled 11/29/18 18:00 Platelet Estimate Markedly decreased (NORMAL) L 12/01/18 05:49 Plt Clumps, EDTA Cancelled 11/29/18 18:00 Large Platelets Cancelled 11/29/18 18:00 Giant Platelets Cancelled 11/29/18 18:00 RBC Morphology Cancelled 11/29/18 18:00 Polychromasia Slight 11/30/18 03:50 Hypochromasia (manual) Slight 11/30/18 20:09 Poikilocytosis (manual Cancelled 11/29/18 18:00 Basophilic Stippling Cancelled 11/29/18 18:00 Anisocytosis (manual) Slight 11/30/18 03:50 Microcytosis (manual) Slight 11/30/18 20:09 Macrocytosis (manual) Cancelled 11/29/18 18:00 Spherocytes Cancelled 11/29/18 18:00 Sickle Cells Cancelled 11/29/18 18:00 Target Cells Cancelled 11/29/18 18:00 Tear Drop Cells Slight 11/30/18 20:09 Ovalocytes Slight 12/01/18 05:49 Stomatocytes Cancelled 11/29/18 18:00 Helmet Cells Cancelled 11/29/18 18:00 [place] Bodies Cancelled 11/29/18 18:00 [place] Cells Cancelled 11/29/18 18:00 Acanthocytes (Spur) Cancelled 11/29/18 18:00 Rouleaux Cancelled 11/29/18 18:00 Schistocytes Slight 11/30/18 03:50 Smear Path Review 11/30/18 20:09 PT 13.5 SECONDS (9.7-12.2) H 12/06/18 06:07 INR 1.2 12/06/18 06:07 APTT 31 SECONDS (21-34) 12/06/18 06:07 D-Dimer, Quantitative 929 ng/mlDDU (0-243) H 12/08/18 16:53 Puncture Site Rra 12/03/18 15:57 pCO2 31 mm/Hg (35-45) L 12/03/18 15:57 pO2 179 mm/Hg (80-100) H 12/03/18 15:57 HCO3 21.9 mmol/L (21-28) 12/03/18 15:57 ABG pH 7.42 (7.35-7.45) 12/03/18 15:57 ABG Total CO2 21.1 mmol/L (22-28) L 12/03/18 15:57 ABG O2 Saturation 100.2 % (95-98) H 12/03/18 15:57 ABG Base Excess -3.9 mmol/L (-2.0-3.0) L 12/03/18 15:57 ABG Hemoglobin 7.5 g/dL (11.7-17.4) L 12/03/18 15:57 ABG Carboxyhemoglobin 2.0 % (0.5-1.5) H 12/03/18 15:57 POC ABG HHb (Measured) -0.2 % (0.0-5.0) L 12/03/18 15:57 ABG Methemoglobin 1.3 % (0.0-3.0) 12/03/18 15:57 Eyal Test Pos 12/03/18 15:57 VBG pH 7.44 (7.32-7.43) H 11/29/18 18:06 VBG pCO2 36 mmHg (40-60) L 11/29/18 18:06 VBG HCO3 24.8 mmol/L 11/29/18 18:06 VBG Total CO2 25.6 mmol/L (22-28) 11/29/18 18:06 VBG O2 Sat (Calc) 84.4 % (40-65) H 11/29/18 18:06 VBG Base Excess 0.6 mmol/L (0.0-2.0) 11/29/18 18:06 VBG Potassium 3.7 mmol/L (3.6-5.2) 11/29/18 18:06 A-a O2 Difference 495.0 mm/Hg 12/03/18 15:57 Respiratory Index 2.8 12/03/18 15:57 Hgb O2 Saturation 96.9 % (95.0-98.0) 12/03/18 15:57 Sodium 142.0 mmol/l (132-148) 11/29/18 18:06 Chloride 113.0 mmol/L (98-107) H 11/29/18 18:06 Glucose 107 mg/dl (75-110) 11/29/18 18:06 Lactate 2.6 mmol/L (0.7-2.1) H 11/29/18 18:06 Vent Mode Bipap 11/30/18 07:00 FiO2 100.0 % 12/03/18 15:57 Inspiratory BiPAP 12 11/30/18 07:00 Expiratory BiPAP 6 11/30/18 07:00 Sodium 136 mmol/L (132-148) 12/13/18 06:05 Potassium 4.2 mmol/L (3.6-5.2) 12/13/18 06:05 Chloride 103 mmol/L (98-107) 12/13/18 06:05 Carbon Dioxide 32 mmol/L (22-30) H 12/13/18 06:05 Anion Gap 5 (10-20) L 12/13/18 06:05 BUN 25 mg/dL (9-20) H 12/13/18 06:05 Creatinine 0.6 mg/dL (0.8-1.5) L 12/13/18 06:05 Est GFR ( Amer) > 60 12/13/18 06:05 Est GFR (Non-Af Amer) > 60 12/13/18 06:05 POC Glucose (mg/dL) 130 mg/dL (65-110) H 12/02/18 11:48 Random Glucose 114 mg/dL (75-110) H 12/13/18 06:05 Lactic Acid 2.0 mmol/L (0.7-2.1) 11/30/18 11:27 Calcium 8.1 mg/dl (8.6-10.4) L 12/13/18 06:05 Phosphorus 2.2 mg/dL (2.5-4.5) L 12/05/18 08:00 Magnesium 2.0 mg/dL (1.6-2.3) 12/05/18 08:00 Total Bilirubin 1.1 mg/dL (0.2-1.3) 12/13/18 06:05 Direct Bilirubin 0.9 mg/dL (0.0-0.4) H 12/01/18 20:02 AST 10 U/L (17-59) L D 12/13/18 06:05 ALT 19 U/L (21-72) L 12/13/18 06:05 Alkaline Phosphatase 83 U/L (38-126) 12/13/18 06:05 Troponin I 0.0530 ng/mL (0.00-0.120) 11/29/18 18:00 Total Protein 4.9 g/dL (6.3-8.3) L 12/13/18 06:05 Albumin 2.2 g/dL (3.5-5.0) L 12/13/18 06:05 Globulin 2.7 gm/dL (2.2-3.9) 12/13/18 06:05 Albumin/Globulin Ratio 0.8 (1.0-2.1) L 12/13/18 06:05 Venous Blood Potassium 3.7 mmol/L (3.6-5.2) 11/29/18 18:06 Urine Color Yellow (YELLOW) 12/01/18 17:21 Urine Clarity Clear (Clear) 12/01/18 17:21 Urine pH 5.0 (5.0-8.0) 12/01/18 17:21 Ur Specific [place] 1.019 (1.003-1.030) 12/01/18 17:21 Urine Protein 1+ mg/dL (NEGATIVE) H 12/01/18 17:21 Urine Glucose (UA) Normal mg/dL (Normal) 12/01/18 17:21 Urine Ketones Negative mg/dL (NEGATIVE) 12/01/18 17:21 Urine Blood 2+ (NEGATIVE) H 12/01/18 17:21 Urine Nitrate Negative (NEGATIVE) 12/01/18 17:21 Urine Bilirubin Negative (NEGATIVE) 12/01/18 17:21 Urine Urobilinogen Normal mg/dL (0.2-1.0) 12/01/18 17:21 Ur Leukocyte Esterase Neg Michael/uL (Negative) 12/01/18 17:21 Urine WBC (Auto) 1 /hpf (0-5) 12/01/18 17:21 Urine RBC (Auto) 17 /hpf (0-3) H 12/01/18 17:21 Urine Bacteria Rare (<OCC) 11/30/18 09:43 Influenza Typ A,B (EIA) Negative for flu a/b (NEGATIVE) 11/29/18 17:32 Blood Type B POSITIVE 12/12/18 14:38 Antibody Screen Negative 12/12/18 14:38 Crossmatch See Detail 12/08/18 08:33 Tx React Basic Work-up Compatible (COMPATIBLE) 11/30/18 07:50 Clerical Work Check No discrepancy 12/01/18 15:10 Pre-Trans Blood Type B POSITIVE 12/01/18 15:10 Pre-Trans Vis Hemolysis No hemolysis 12/01/18 15:10 Pre-Tx Ab Screen (Gel) Negative 11/30/18 07:50 Post-Trans Blood Type B POSITIVE 12/01/18 15:10 Post-Tx Visible Hemolys No hemolysis 12/01/18 15:10 Post-Tx Ab Screen (Gel) Negative 12/01/18 15:10 Post-Trans GARRY Poly Negative (NEGATIVE) 12/01/18 15:10 Pathologist Comment BBK 12/01/18 15:10 - Hospital Course Hospital Course: Patient is a 78 year old male with past medical history of recently diagnosed AML, HTN, and BPH presenting to ED for subjective fever and generalized weakness since yesterday. Per family, patient had decreased appetite, generally did not feel. He also complains of associated L sided rib pain that began this morning, tried putting an ice pack over area. Patient was noted to be febrile upon arrival in ED, T max 103.5. Of note, patient states he began immunotherapy last week. His last chemo session was Thursday and he was seen in the hospital for this. No chills, headaches, dizziness, chest pain palpitations, sob, cough, abdominal pain, n/v/d/c, dysuria, or changes in stool. Code sepsis was called on admission, as patient had fever, tachycardia, and bandemia. CXR shower infiltrates. Patient was started on broad spectrum antibiotics. Patient has known AML (dx Sep 2018) and was pancytopenic on admission. His oncologist, Dr. Bobby, was consulted. Patient received pRBC (2u) and Platelet (4u) transfusions throughout his hospitalization. Additionally, neutropenic precautions were put in place. RELAY TELEGRAPHER called on 11/30 for respiratory distress. Patient found to have L-sided pneumothorax. CT surgery was consulted and L pigtail was inserted. Patient refused larger chest tube or furtehr surgical intervention. He was monitored in the ICU for approximately 1 week. Eventually, patient was transferred back to [place] d/surg floor and pigtail was pulled out on 12/10. CT chest demonstrated re- expansion of lung. Palliative care was consulted following ICU transfer. Patient deferred all end of life care decisions to his children. Ultimately remained full code. Patient and family wish to continue with potential chemotherapy and further transfusions. Upon discharge, patient's Hgb and Plt were above goals, >7 and >20 respectively. WBC were stable. Vitals were improved- patient was afebrile > 1 week. Blood cultures remained negative. Home services, including O2, were set-up. Patient and family were instructed to continue outpatient follow-up as further transfusions will be needed. Discharge Exam - Head Exam Head Exam: ATRAUMATIC, NORMAL INSPECTION - Eye Exam Eye Exam: EOMI, Normal appearance - ENT Exam ENT Exam: Mucous Membranes Moist - Neck Exam Neck exam: Normal Inspection - Respiratory Exam Respiratory Exam: Decreased Breath Sounds, NORMAL BREATHING PATTERN. absent: Respiratory Distress Additional comments: NC - Cardiovascular Exam Cardiovascular Exam: RRR, +S1, +S2 - GI/Abdominal Exam GI & Abdominal Exam: Soft. absent: Distended, Tenderness - Extremities Exam Extremities exam: normal inspection Additional comments: cachetic - Neurological Exam Neurological exam: Alert - Skin Skin Exam: Dry, Normal Color Discharge Plan - Follow Up Plan Condition: STABLE Disposition: HOME/ ROUTINE Patient education suggested?: Yes Instructions: Pneumonia, Adult (DC), Aplastic Anemia (DC) Additional Instructions: Patient is stable for discharge home. Patient is instructed to follow up with PMD, Dr. Montoya and Heme/Onc, Dr. Bobby immediately upon discharge. Patient and family have been instructed they need to follow up for labs and transfusions every few days, please call Dr. Bobby to arrange. Patient will resume home meds as directed by PMD. Patient will be discharged home with [facility], standard O2, and portable O2. Patient and family have been instructed hot to use O2, and has discussed continuing management with [facility] bank representative. Patient has requested a hospital bed for home, a wheelchair, a commode, and a shower chair. Patient is advised to call PMD or return to ED with any worsening of symptoms, including difficulty breathing. Referrals: Kartik Bobby MD [Staff Provider] - Andrzej Montoya Jr., MD [Medical Doctor] -
[2018-12-14 07:57] LABS: ALBUMIN 2.6 g/dL (3.5-5.0); ALT/SGPT 25 U/L (21-72); AST/SGOT 21 U/L (17-59); BLOOD UREA NITROGEN 25 mg/dL (9-20); CALCIUM 8.3 mg/dl (8.6-10.4); GFR NON-AFRICAN AMERICAN > 60
[2018-12-14 08:39] VITALS: BP 152/64; PULSE 88; RESP 20; TEMP 98.4; O2SAT 97
[2018-12-14] MEDS: Pantoprazole 20 mg EC Tab PO SCH (10:14)
== END 2018-12-14 15:51 | disposition home or self-care (01) | DRG 871 ==
LOC: C.ER 16:59 → C.6T 18:55 → C.9I 11-30 07:26 → C.3T 12-10 00:42
PROVIDERS: ADMIT Internal Medicine; ATTEND Internal Medicine
PROC: 30233R1 Transfusion of Nonautologous Platelets into Peripheral Vein, Percutaneous Approach (ICD-10-PCS; principal; 2018-11-30)
PROC: 30233N1 Transfusion of Nonautologous Red Blood Cells into Peripheral Vein, Percutaneous Approach (ICD-10-PCS; 2018-11-30)
PROC: 5A09557 Assistance with Respiratory Ventilation, Greater than 96 Consecutive Hours, Continuous Positive Airway Pressure (ICD-10-PCS; 2018-11-30)
PROC: 0W9B30Z Drainage of Left Pleural Cavity with Drainage Device, Percutaneous Approach (ICD-10-PCS; 2018-11-30)
PROC: 6A551Z2 Pheresis of Platelets, Multiple (ICD-10-PCS; 2018-11-30)
DX: A41.9 Sepsis, unspecified organism (principal); J18.9 Pneumonia, unspecified organism; D61.818 Other pancytopenia; C92.00 Acute myeloblastic leukemia, not having achieved remission; J93.83 Other pneumothorax; J44.0 Chronic obstructive pulmonary disease with (acute) lower respiratory infection; I31.3 Pericardial effusion (noninflammatory); J94.8 Other specified pleural conditions; J98.11 Atelectasis; R64 Cachexia; I11.9 Hypertensive heart disease without heart failure; J90 Pleural effusion, not elsewhere classified; R50.84 Febrile nonhemolytic transfusion reaction; T80.89XA Other complications following infusion, transfusion and therapeutic injection, initial encounter; E89.0 Postprocedural hypothyroidism; N40.0 Benign prostatic hyperplasia without lower urinary tract symptoms; I44.7 Left bundle-branch block, unspecified; I51.7 Cardiomegaly; J43.0 Unilateral pulmonary emphysema [MacLeod's syndrome]; Z51.5 Encounter for palliative care; Z66 Do not resuscitate; Z87.891 Personal history of nicotine dependence; Z79.899 Other long term (current) drug therapy

== ENCOUNTER 2018-12-17 11:51 | Inpatient (IN) | payer MEDICARE ==
[2018-12-17 12:11] VITALS: BMI 15.4
--- NOTE | 2018-12-17 12:48 | C.PDOC ---
History Of Present Illness 78 y/o male pt with hx of leukemia, COPD, HTN and pneumonia presents to the ER with his two daughters for a blood transfusion. As per daughters, Pt was sent by Dr. Bobby for workup. Pt was seen by ER x2 dys ago for collapse lung and pneumonia and was discharged. Pt does not have any complaints at this time. Time Seen by Provider: 12/17/18 12:35 Chief Complaint (Nursing): Abnormal Labs History Per: Family History/Exam Limitations: no limitations Onset/Duration Of Symptoms: Days Past Medical History Reviewed: Historical Data, Nursing Documentation, Vital Signs Vital Signs: Last Vital Signs Temp 98.6 F 12/17/18 12:11 Pulse 105 H 12/17/18 12:11 Resp 26 H 12/17/18 12:11 BP 105/43 L 12/17/18 12:11 Pulse Ox 99 12/17/18 12:11 - Medical History PMH: COPD, HTN, Peripheral Edema, Pneumonia, Pneumothorax - [facility] Procedures ASSISTANCE WITH RESPIRATORY VENTILATION, >96 HRS, CPAP (11/29/18) DRAINAGE OF L PLEURAL CAV WITH DRAIN DEV, PERC APPROACH (11/29/18) EXTRACTION OF ILIAC BONE MARROW, PERC APPROACH, DIAGN (09/28/18) PHERESIS OF PLATELETS, MULTIPLE (11/29/18) TRANSFUSE NONAUT PLATELETS IN PERIPH VEIN, PERC (11/29/18) TRANSFUSE NONAUT RED BLOOD CELLS IN PERIPH VEIN, PERC (11/29/18) Family History: States: Unknown Family Hx - Social History Hx Alcohol Use: No Hx Substance Use: No (pt denies) - Immunization History Hx Tetanus Toxoid Vaccination: No Hx Influenza Vaccination: No Hx Pneumococcal Vaccination: No Review Of Systems Except As Marked, All Systems Reviewed And Found Negative. Constitutional: Positive for: Other (blood transfusion request ) Cardiovascular: Negative for: Chest Pain Gastrointestinal: Negative for: Nausea, Vomiting, Abdominal Pain Musculoskeletal: Negative for: Neck Pain, Shoulder Pain, Leg Pain Physical Exam - Physical Exam Appears: Non-toxic, No Acute Distress Skin: Warm, Dry Head: Normacephalic Eye(s): bilateral: Normal Inspection Chest: Symmetrical Cardiovascular: Rhythm Regular Respiratory: Decreased Breath Sounds (left side), No Rales, No Rhonchi, No Wheezing Gastrointestinal/Abdominal: Soft, No Tenderness Extremity: Normal ROM (x4), No Tenderness, No Pedal Edema, No Calf Tenderness, No Deformity, No Swelling Pulses: Left Dorsalis Pedis: Normal, Right Dorsalis Pedis: Normal Neurological/Psych: Oriented x3, Normal Speech ED Course And Treatment - Laboratory Results Result Diagrams: 12/18/18 14:13 12/18/18 14:13 O2 Sat by Pulse Oximetry: 99 (RA) Pulse Ox Interpretation: Normal Medical Decision Making Medical Decision Making: Impression: acute anemia Plans: -- chem labs -- blood work 1:[address] Bobby to discuss case. Dr. Bobby wants a PRBC, two plateletes and also wants patient to be admitted. Disposition - Disposition Disposition: HOSPITALIZED Disposition Time: 15:07 Condition: FAIR - Clinical Impression Clinical Impression: Acute anemia - Scribe Statement The provider has reviewed the documentation as recorded by the Scribmerrill Carreon Do Provider Attestation: All medical record entries made by the Scribe were at my direction and personally dictated by me. I have reviewed the chart and agree that the record accurately reflects my personal performance of the history, physical exam, medical decision making, and the department course for this patient. I have also personally directed, reviewed, and agree with the discharge instructions and disposition.
[2018-12-17 13:28] LABS: LYMPH # 0.2 K/uL (1.0-4.3); MEAN PLATELET VOLUME 9.1 fL (7.2-11.7); MONO # 0.2 K/uL (0.0-0.8); RBC 1.96 Mil/uL (4.40-5.90)
[2018-12-17 13:34] LABS: INR 1.4; PROTHROMBIN TIME 15.7 SECONDS (9.7-12.2)
[2018-12-17 13:36] LABS: BASO % 0.6 % (0.0-2.0); EOS % 0.2 % (0.0-4.0); MEAN CORPUSCULAR HEMOGLOBIN 29.9 pg (27.0-31.0); MEAN CORPUSCULAR HGB CONC 33.7 g/dL (33.0-37.0); NEUT % 5.2 % (50.0-75.0); NRBC % 4.8 % (0.0-2.0); RED CELL DISTRIBUTION WIDTH 13.3 % (11.5-14.5)
[2018-12-17 13:43] LABS: HEMOGLOBIN 5.9 g/dL (12.0-18.0); WHITE BLOOD COUNT 0.4 K/uL (4.8-10.8)
[2018-12-17 13:46] LABS: ALB/GLOB RATIO 0.9 (1.0-2.1); ALBUMIN 2.4 g/dL (3.5-5.0); ALT/SGPT 29 U/L (21-72); AST/SGOT 24 U/L (17-59); BLOOD UREA NITROGEN 27 mg/dL (9-20); GFR NON-AFRICAN AMERICAN > 60
--- NOTE | 2018-12-17 15:14 | CP.PCM.HP ---
History of Present Illness - History of Present Illness History of Present Illness: PGY-1 Armida Ram D.O. H&P for Dr. Montoya's service: Patient is a 78 year old male with history of AML, HTN, BPH who presents to the ED as instructed by his oncologist for blood transfusions. Patient was discharged 3 days after after being hospitalized for pancytopenia 2/2 AML and the development of a pneumothorax requiring a short stay in the ICU. Patient followed up with Dr. Bobby yesterday and had blood work. Patient was called by Dr. Bobby today who advised him to come to the ED to get transfused. Patient states that since he has left the hospital, he has felt about the same. He continues to have cough and gets intermittently SOB. He always uses supplemental O2. He is mostly in bed, but his family helps him get to the bathroom and OOB to chair at home. He has received a total of 2 rounds of chemotherapy. He was pl anned for a third before being hospitalized last time. Patient denies fevers/chills, dizziness/lightheadness, N/V, abdominal pain, D/C. Discussion with patient and daughter regarding code status in ED: Palliative care was involved last admission. Patient expressed that he wants to be DNR/DNI. Daughter reports this was discussed as a family as well, and they respect his decision at this time. PMH: AML, HTN, BPH PSH: chest tube 11/2017 for pneumothorax Meds: Colace 100 mg po bid, Lasix 20 mg po daily, Lisinopril 5 mg po daily, Protonix 40 mg po daily, Flomax 0.4 mg po bid All: NKDA SH: Former smoker- 1 ppd 20 years ago. No alcohol or illicit drug use. Lives with and daughters are here helping take care of patient. FH: denies PMD: Dr. Montoya Heme/Onc: Dr. Bobby Pulm: Dr. Thurston Present on Admission - Present on Admission Any Indicators Present on Admission: No History of DVT/PE: No History of Uncontrolled Diabetes: No Urinary Catheter: No Decubitus Ulcer Present: No History Surgical Site Infection Following: None Review of Systems - Constitutional Constitutional: Fatigue, Weakness. absent: Chills, Fever - EENT Eyes: absent: Blurred Vision Ears: absent: Decreased Hearing Nose/Mouth/Throat: absent: Nasal Congestion - Cardiovascular Cardiovascular: Dyspnea. absent: Chest Pain, Lightheadedness, Palpitations, Syncope - Respiratory Respiratory: Cough, Dyspnea. absent: Hemoptysis - Gastrointestinal Gastrointestinal: absent: Abdominal Pain, Constipation, Diarrhea, Nausea, Vomiting - Genitourinary Genitourinary: absent: Dysuria, Hematuria - Musculoskeletal Musculoskeletal: absent: Numbness, Tingling - Integumentary Integumentary: absent: Lesions, Rash - Neurological Neurological: Weakness. absent: Dizziness, Focal Weakness, Headaches, Paresthesias, Syncope, Tremor - Psychiatric Psychiatric: absent: Anxiety - Endocrine Endocrine: Fatigue. absent: Palpitations - Hematologic/Lymphatic Hematologic: Easy Bruising. absent: Lymphadenopathy Past Patient History - Infectious Disease Hx of Infectious Diseases: None - Tetanus Immunizations Tetanus Immunization: Unknown - Past Medical History & Family History Past Medical History?: Yes Past Family History: Reviewed and not pertinent - Past Social History Smoking Status: Former Smoker Chewing Tobacco Use: No Cigar Use: No Alcohol: None Drugs: Denies Home Situation {Lives}: With Family - CARDIAC Hx Hypertension: Yes Hx Peripheral Edema: Yes - PULMONARY Hx Chronic Obstructive Pulmonary Disease (COPD): Yes Hx Pneumonia: Yes - NEUROLOGICAL Hx Neurological Disorder: No - HEENT Hx HEENT Problems: No - RENAL Hx Chronic Kidney Disease: No - ENDOCRINE/METABOLIC Hx Endocrine Disorders: No - HEMATOLOGICAL/ONCOLOGICAL Hx Blood Disorders: Yes Hx Leukemia: Yes (Recieves Chemo last chemo tx was Thursday) - INTEGUMENTARY Hx Dermatological Problems: No - MUSCULOSKELETAL/RHEUMATOLOGICAL Hx Falls: No - GASTROINTESTINAL Hx Gastrointestinal Disorders: Yes Hx Constipation: Yes - GENITOURINARY/GYNECOLOGICAL Hx Genitourinary Disorders: No - PSYCHIATRIC Hx Substance Use: No (pt denies) - SURGICAL HISTORY Hx Surgeries: Yes Other/Comment: chest tube. - ANESTHESIA Hx Anesthesia: No Meds Allergies/Adverse Reactions: Allergies Allergy/AdvReac Type Severity Reaction Status Date / Time No Known Allergies Allergy Verified 12/17/18 12:10 Physical Exam - Constitutional Appears: No Acute Distress, Cachectic - Head Exam Head Exam: ATRAUMATIC, NORMAL INSPECTION - Eye Exam Eye Exam: EOMI, Normal appearance, PERRL - ENT Exam ENT Exam: Mucous Membranes Moist - Neck Exam Neck exam: Positive for: Normal Inspection - Respiratory Exam Respiratory Exam: Decreased Breath Sounds (L lung), Rales (L lung), NORMAL BREATHING PATTERN. absent: Respiratory Distress Additional comments: 3L NC - Cardiovascular Exam Cardiovascular Exam: Tachycardia, REGULAR RHYTHM, +S1, +S2 - GI/Abdominal Exam GI & Abdominal Exam: Soft. absent: Distended, Tenderness - Extremities Exam Extremities exam: Positive for: normal inspection, pedal pulses present. Negative for: pedal edema, tenderness - Back Exam Back exam: NORMAL INSPECTION - Neurological Exam Neurological exam: Alert, CN II-XII Intact, Oriented x3 - Psychiatric Exam Psychiatric exam: Flat Affect, Normal Mood - Skin Skin Exam: Dry, Normal Color, Warm Results - Vital Signs Recent Vital Signs: Last Vital Signs Temp 98.6 F 12/17/18 12:11 Pulse 105 H 12/17/18 12:11 Resp 26 H 12/17/18 12:11 BP 105/43 L 12/17/18 12:11 Pulse Ox 99 12/17/18 13:36 - Labs Result Diagrams: 12/17/18 13:14 12/17/18 13:14 Labs: Laboratory Results - last 24 hr 12/17/18 12/17/18 12/17/18 13:14 13:14 13:14 WBC 0.4 L* RBC 1.96 L Hgb 5.9 L* Hct 17.4 L MCV 89.0 MCH 29.9 MCHC 33.7 RDW 13.3 Plt Count 14 L* D MPV 9.1 Neut % (Auto) 5.2 L Lymph % (Auto) 46.0 H [place] % (Auto) 48.0 H Eos % (Auto) 0.2 Baso % (Auto) 0.6 Neut # (Auto) 0.0 L Lymph # (Auto) 0.2 L [place] # (Auto) 0.2 Eos # (Auto) 0.0 Baso # (Auto) 0.0 Total Counted Cancelled Neutrophils % (Manual) Cancelled Band Neutrophils % Cancelled Lymphocytes % (Manual) Cancelled Reactive Lymphs % Cancelled Monocytes % (Manual) Cancelled Eosinophils % (Manual) Cancelled Basophils % (Manual) Cancelled Metamyelocytes % Cancelled Myelocytes % Cancelled Promyelocytes % Cancelled Blast Cells % Cancelled Plasma Cell % (Manual) Cancelled Nucleated RBC % Cancelled Hypersegmented Polys Cancelled Smudge Cells Cancelled Toxic Granulation Cancelled Dohle Bodies Cancelled Nazanin Rods Cancelled Platelet Estimate Cancelled Plt Clumps, EDTA Cancelled Large Platelets Cancelled Giant Platelets Cancelled RBC Morphology Cancelled Polychromasia Cancelled Hypochromasia (manual) Cancelled Poikilocytosis (manual Cancelled Basophilic Stippling Cancelled Anisocytosis (manual) Cancelled Microcytosis (manual) Cancelled Macrocytosis (manual) Cancelled Spherocytes Cancelled Sickle Cells Cancelled Target Cells Cancelled Tear Drop Cells Cancelled Ovalocytes Cancelled Stomatocytes Cancelled Helmet Cells Cancelled Gunderson-[place] Bodies Cancelled Terry Cells Cancelled Acanthocytes (Spur) Cancelled Rouleaux Cancelled Schistocytes Cancelled PT 15.7 H INR 1.4 APTT 28 Sodium 136 Potassium 3.8 Chloride 101 Carbon Dioxide 29 Anion Gap 10 BUN 27 H Creatinine 0.8 Est GFR ( Amer) > 60 Est GFR (Non-Af Amer) > 60 Random Glucose 110 D Calcium 8.0 L Total Bilirubin 0.8 AST 24 ALT 29 Alkaline Phosphatase 114 Total Protein 5.2 L Albumin 2.4 L Globulin 2.8 Albumin/Globulin Ratio 0.9 L Blood Type Antibody Screen 12/17/18 13:14 WBC RBC Hgb Hct MCV MCH MCHC RDW Plt Count MPV Neut % (Auto) Lymph % (Auto) [place] % (Auto) Eos % (Auto) Baso % (Auto) Neut # (Auto) Lymph # (Auto) [place] # (Auto) Eos # (Auto) Baso # (Auto) Total Counted Neutrophils % (Manual) Band Neutrophils % Lymphocytes % (Manual) Reactive Lymphs % Monocytes % (Manual) Eosinophils % (Manual) Basophils % (Manual) Metamyelocytes % Myelocytes % Promyelocytes % Blast Cells % Plasma Cell % (Manual) Nucleated RBC % Hypersegmented Polys Smudge Cells Toxic Granulation Dohle Bodies Nazanin Rods Platelet Estimate Plt Clumps, EDTA Large Platelets Giant Platelets RBC Morphology Polychromasia Hypochromasia (manual) Poikilocytosis (manual Basophilic Stippling Anisocytosis (manual) Microcytosis (manual) Macrocytosis (manual) Spherocytes Sickle Cells Target Cells Tear Drop Cells Ovalocytes Stomatocytes Helmet Cells Gunderson-[place] Bodies [place]ridge Cells Acanthocytes (Spur) Rouleaux Schistocytes PT INR APTT Sodium Potassium Chloride Carbon Dioxide Anion Gap BUN Creatinine Est GFR ( Amer) Est GFR (Non-Af Amer) Random Glucose Calcium Total Bilirubin AST ALT Alkaline Phosphatase Total Protein Albumin Globulin Albumin/Globulin Ratio Blood Type B POSITIVE Antibody Screen Negative Assessment & Plan - Assessment and Plan (Free Text) Assessment: Patient is a 78 year old male with history of AML, HTN, BPH who presents to the ED as instructed by his oncologist for blood transfusions. Patient will receive 2 u pRBC and 2 u of Plts. Plan: Pancytopenia 2/2 AML- dx Sep 2018 - Hgb goal >9, Plt goal >20 - Pre-treat transfusions with Tylenol and Benadryl - 2u pRBC - 2u Plt - Monitor CBC - Tylenol 650 mg PO Q6H PRN - Hem/onc consulted (Diamante) Left pleural effusion - CXR: Worsening near complete opacification of the left lung which may be related to worsening effusions/multifocal pneumonia. - f/u repeat CXR - Lasix 20 mg PO daily - Lasix PRN after transfusions - Pulmonology consulted (Bertrand) Hypertension - Vitals Q6H - Lisinopril 5 mg PO daily - Lasix 20 mg PO daily Benign prostatic hyperplasia - Flomax 0.4 mg PO daily Ppx: VTE: AC contraindicated due to pancytopenia, SCDs GI: Protonix 40 mg PO daily, Colace 100 mg PO BID Code status: DNR/DNI Case discussed with attending, Dr. Montoya.
--- NOTE | 2018-12-17 15:51 | RAD ---
Date of service: 12/17/2018 HISTORY: recent pneumothorax COMPARISON: 12/10/2018 FINDINGS: LUNGS: The right lung is well inflated. There is severe venous congestion in the right lung. There is worsening near complete opacification of the left lung. PLEURA: No pleural effusions or pneumothorax. CARDIOVASCULAR: The heart is normal in size. There are aortic atherosclerotic calcifications present. OSSEOUS STRUCTURES: Within normal limits for the patient's age. VISUALIZED UPPER ABDOMEN: Normal. OTHER FINDINGS: None. IMPRESSION: Worsening near complete opacification of the left lung which may be related to worsening effusions/multifocal pneumonia. Follow-up is recommended.
[2018-12-18] MEDS: Pantoprazole 40 mg EC Tab PO SCH (09:26)
--- NOTE | 2018-12-18 09:47 | RAD ---
Date of service: 12/18/2018 HISTORY: pleural effusion COMPARISON: Frontal chest radiograph 12/17/2018 3:34 p.m.. FINDINGS: LUNGS: Worsening opacification left hemithorax is appreciated at the mid and superior left lung zones suggestive of worsening pleural effusion and infiltrate. Limited aeration is seen the left apex and mid lung zone. Linear atelectasis or fibrosis seen at the mid to superior right lung zone. No right pleural effusion. No pneumothorax bilaterally. PLEURA: As above. CARDIOVASCULAR: Calcific atherosclerotic changes are seen related to the thoracic aorta. Obscured by extensive left hemithorax opacity. No pulmonary vascular congestion. OSSEOUS STRUCTURES: No significant abnormalities. VISUALIZED UPPER ABDOMEN: Normal. OTHER FINDINGS: None. IMPRESSION: Interval increase in left pleural effusion infiltrate/atelectasis with no right-sided pleural effusion evident or alveolitis.
--- NOTE | 2018-12-18 10:09 | CP.PCM.PN ---
Subjective - Date & Time of Evaluation Date of Evaluation: 12/18/18 Time of Evaluation: 09:40 - Subjective Subjective: Patient examined at bedside. Pt transfused 2U PRBC and 2U platelets overnight. Family in room. Discussion had regarding current status of pancytopenia and left lung as visualized on imaging. Pt reports NC is insufficient, and pt gets short of breath with any movement. Discussed adding vapotherm and provided pt incentive spirometer with instructions of use. Objective - Vital Signs/Intake and Output Vital Signs (last 24 hours): Temp Pulse Resp BP Pulse Ox 97.9 F 94 H 18 126/63 93 L 12/18/18 06:50 12/18/18 06:50 12/18/18 06:50 12/18/18 09:26 12/18/18 00:16 Intake and Output: 12/18/18 12/18/18 06:59 18:59 Intake Total 532 Balance 532 - Medications Medications: Current Medications Acetaminophen (Tylenol 325mg Tab) 650 mg PO Q6 PRN PRN Reason: Fever >100.4 F Docusate Sodium (Colace) 100 mg PO BID [facility] Last Admin: 12/18/18 09:26 Dose: Not Given Furosemide (Lasix) 20 mg PO DAILY [facility] Last Admin: 12/18/18 09:26 Dose: 20 mg Lisinopril (Zestril) 5 mg PO DAILY [facility] Last Admin: 12/18/18 09:26 Dose: 5 mg Pantoprazole Sodium (Protonix Ec Tab) 40 mg PO DAILY [facility] Last Admin: 12/18/18 09:26 Dose: 40 mg Tamsulosin HCl (Flomax) 0.4 mg PO BID [facility] Last Admin: 12/18/18 09:26 Dose: 0.4 mg - Labs Labs: 12/17/18 13:14 12/17/18 13:14 PT 15.7 SECONDS (9.7-12.2) H 12/17/18 13:14 INR 1.4 12/17/18 13:14 APTT 28 SECONDS (21-34) 12/17/18 13:14 - Constitutional Appears: Non-toxic, No Acute Distress - Head Exam Head Exam: ATRAUMATIC, NORMAL INSPECTION, NORMOCEPHALIC - Eye Exam Eye Exam: EOMI, Normal appearance Pupil Exam: NORMAL ACCOMODATION - ENT Exam ENT Exam: Mucous Membranes Moist, Normal Exam - Neck Exam Neck Exam: Normal Inspection - Respiratory Exam Respiratory Exam: Accessory Muscle Use, Decreased Breath Sounds, Rales (left diffuse). absent: Clear to Ausculation Bilateral, Respiratory Distress - Cardiovascular Exam Cardiovascular Exam: Tachycardia, REGULAR RHYTHM - GI/Abdominal Exam GI & Abdominal Exam: Soft, Normal Bowel Sounds. absent: Tenderness - Extremities Exam Extremities Exam: Normal Inspection. absent: Calf Tenderness, Pedal Edema - Neurological Exam Neurological Exam: Alert, Awake, Oriented x3 - Psychiatric Exam Psychiatric exam: Normal Affect, Normal Mood - Skin Skin Exam: Dry, Intact, Normal Color, Warm Assessment and Plan - Assessment and Plan (Free Text) Assessment: Patient is a 78 year old male with history of AML w/ associated pancytopenia, HTN, BPH admitted for treatment of pancytopenia and worsening left sided pleural effusion Plan: Pancytopenia 12/11 AML- dx Sep 2018 - Hgb 7.7, Plt 29 - Hgb goal >9, Plt goal >20 - Pre-treat transfusions with Tylenol and Benadryl - 2u pRBC(12/17) - 2u Plt(12/17) - Monitor CBC - Tylenol 650 mg PO Q6H PRN - Hem/onc consulted (Diamante) Left pleural effusion - CXR: increase interval in left pleural effusion - continue home Lasix 20 mg PO daily - Lasix PRN after transfusions - started vapotherm - s/p thoracentesis with Dr. Thurston, 1L removed(12/18) - f/u pleural fluid studies - Pulmonology consulted (Bertrand) Hypertension - Vitals Q6H - continue home Lisinopril 5 mg PO daily - continue home Lasix 20 mg PO daily Benign prostatic hyperplasia - continue home Flomax 0.4 mg PO daily Ppx: VTE: AC contraindicated due to pancytopenia, SCDs GI: Protonix 40 mg PO daily, Colace 100 mg PO BID Neutropenic Precautions Code status: DNR/DNI Discussed with Dr. Lindsay Amato, PGY-1
--- NOTE | 2018-12-18 10:57 | CP.PCM.CON ---
History of Present Illness - History of Present Illness History of Present Illness: Reason for consultation: Large pleural effusion and shortness of breath 78-year-old male with history of AML, left pneumothorax and pleural effusion status post pigtail catheter insertion during last admission, hypertension, pancytopenia who was seen by his oncologist yesterday and advised him to come to the emergency room for blood transfusion. Patient also complaining of shortness of breath and chest x-ray consistent with left pleural effusion and infiltrate. PMH: AML, HTN, BPH PSH: chest tube 11/2017 for pneumothorax Meds: Colace 100 mg po bid, Lasix 20 mg po daily, Lisinopril 5 mg po daily, Protonix 40 mg po daily, Flomax 0.4 mg po bid All: NKDA SH: Former smoker- 1 ppd 20 years ago. No alcohol or illicit drug use. Lives with and daughters are here helping take care of patient. FH: denies Review of Systems - Review of Systems All systems: reviewed and no additional remarkable complaints except (Shortness of breath) Past Patient History - Infectious Disease Hx of Infectious Diseases: None - Tetanus Immunizations Tetanus Immunization: Unknown - Past Medical History & Family History Past Medical History?: Yes - Past Social History Smoking Status: Former Smoker - CARDIAC Hx Hypertension: Yes Hx Peripheral Edema: Yes - PULMONARY Hx Chronic Obstructive Pulmonary Disease (COPD): Yes Hx Pneumonia: Yes - NEUROLOGICAL Hx Neurological Disorder: No - HEENT Hx HEENT Problems: No - RENAL Hx Chronic Kidney Disease: No - ENDOCRINE/METABOLIC Hx Endocrine Disorders: No - HEMATOLOGICAL/ONCOLOGICAL Hx Blood Disorders: Yes Hx Leukemia: Yes (Recieves Chemo last chemo tx was Thursday) - INTEGUMENTARY Hx Dermatological Problems: No - MUSCULOSKELETAL/RHEUMATOLOGICAL Hx Falls: No - GASTROINTESTINAL Hx Gastrointestinal Disorders: Yes Hx Constipation: Yes - GENITOURINARY/GYNECOLOGICAL Hx Genitourinary Disorders: No - PSYCHIATRIC Hx Substance Use: No (pt denies) - SURGICAL HISTORY Hx Surgeries: Yes Other/Comment: chest tube. - ANESTHESIA Hx Anesthesia: No Meds Allergies/Adverse Reactions: Allergies Allergy/AdvReac Type Severity Reaction Status Date / Time No Known Allergies Allergy Verified 12/17/18 12:10 - Medications Medications: Current Medications Acetaminophen (Tylenol 325mg Tab) 650 mg PO Q6 PRN PRN Reason: Fever >100.4 F Benzonatate (Tessalon Perles) 100 mg PO TID ELDA Docusate Sodium (Colace) 100 mg PO BID [facility] Last Admin: 12/18/18 09:26 Dose: Not Given Furosemide (Lasix) 20 mg PO DAILY [facility] Last Admin: 12/18/18 09:26 Dose: 20 mg Lisinopril (Zestril) 5 mg PO DAILY [facility] Last Admin: 12/18/18 09:26 Dose: 5 mg Pantoprazole Sodium (Protonix Ec Tab) 40 mg PO DAILY [facility] Last Admin: 12/18/18 09:26 Dose: 40 mg Tamsulosin HCl (Flomax) 0.4 mg PO BID [facility] Last Admin: 12/18/18 09:26 Dose: 0.4 mg Physical Exam - Head Exam Head Exam: ATRAUMATIC, NORMOCEPHALIC - ENT Exam ENT Exam: Mucous Membranes Moist - Neck Exam Neck exam: Positive for: Normal Inspection Results - Vital Signs Recent Vital Signs: Last Vital Signs Temp 97.9 F 12/18/18 06:50 Pulse 94 H 12/18/18 06:50 Resp 18 12/18/18 06:50 BP 126/63 12/18/18 09:26 Pulse Ox 93 L 12/18/18 00:16 - Labs Result Diagrams: 12/18/18 11:12 12/17/18 13:14 Labs: Laboratory Results - last 24 hr 12/17/18 12/17/18 12/17/18 13:14 13:14 13:14 WBC 0.4 L* RBC 1.96 L Hgb 5.9 L* Hct 17.4 L MCV 89.0 MCH 29.9 MCHC 33.7 RDW 13.3 Plt Count 14 L* D MPV 9.1 Neut % (Auto) 5.2 L Lymph % (Auto) 46.0 H [place] % (Auto) 48.0 H Eos % (Auto) 0.2 Baso % (Auto) 0.6 Neut # (Auto) 0.0 L Lymph # (Auto) 0.2 L [place] # (Auto) 0.2 Eos # (Auto) 0.0 Baso # (Auto) 0.0 Total Counted Cancelled Neutrophils % (Manual) Cancelled Band Neutrophils % Cancelled Lymphocytes % (Manual) Cancelled Reactive Lymphs % Cancelled Monocytes % (Manual) Cancelled Eosinophils % (Manual) Cancelled Basophils % (Manual) Cancelled Metamyelocytes % Cancelled Myelocytes % Cancelled Promyelocytes % Cancelled Blast Cells % Cancelled Plasma Cell % (Manual) Cancelled Nucleated RBC % Cancelled Hypersegmented Polys Cancelled Smudge Cells Cancelled Toxic Granulation Cancelled Dohle Bodies Cancelled Nazanin Rods Cancelled Platelet Estimate Cancelled Plt Clumps, EDTA Cancelled Large Platelets Cancelled Giant Platelets Cancelled RBC Morphology Cancelled Polychromasia Cancelled Hypochromasia (manual) Cancelled Poikilocytosis (manual Cancelled Basophilic Stippling Cancelled Anisocytosis (manual) Cancelled Microcytosis (manual) Cancelled Macrocytosis (manual) Cancelled Spherocytes Cancelled Sickle Cells Cancelled Target Cells Cancelled Tear Drop Cells Cancelled Ovalocytes Cancelled Stomatocytes Cancelled Helmet Cells Cancelled Gunderson-[place] Bodies Cancelled Terry Cells Cancelled Acanthocytes (Spur) Cancelled Rouleaux Cancelled Schistocytes Cancelled PT 15.7 H INR 1.4 APTT 28 Sodium 136 Potassium 3.8 Chloride 101 Carbon Dioxide 29 Anion Gap 10 BUN 27 H Creatinine 0.8 Est GFR ( Amer) > 60 Est GFR (Non-Af Amer) > 60 Random Glucose 110 D Calcium 8.0 L Total Bilirubin 0.8 AST 24 ALT 29 Alkaline Phosphatase 114 Total Protein 5.2 L Albumin 2.4 L Globulin 2.8 Albumin/Globulin Ratio 0.9 L Blood Type Antibody Screen 12/17/18 13:14 WBC RBC Hgb Hct MCV MCH MCHC RDW Plt Count MPV Neut % (Auto) Lymph % (Auto) [place] % (Auto) Eos % (Auto) Baso % (Auto) Neut # (Auto) Lymph # (Auto) [place] # (Auto) Eos # (Auto) Baso # (Auto) Total Counted Neutrophils % (Manual) Band Neutrophils % Lymphocytes % (Manual) Reactive Lymphs % Monocytes % (Manual) Eosinophils % (Manual) Basophils % (Manual) Metamyelocytes % Myelocytes % Promyelocytes % Blast Cells % Plasma Cell % (Manual) Nucleated RBC % Hypersegmented Polys Smudge Cells Toxic Granulation Dohle Bodies Nazanin Rods Platelet Estimate Plt Clumps, EDTA Large Platelets Giant Platelets RBC Morphology Polychromasia Hypochromasia (manual) Poikilocytosis (manual Basophilic Stippling Anisocytosis (manual) Microcytosis (manual) Macrocytosis (manual) Spherocytes Sickle Cells Target Cells Tear Drop Cells Ovalocytes Stomatocytes Helmet Cells Gunderson-[place] Bodies Mobile Cells Acanthocytes (Spur) Rouleaux Schistocytes PT INR APTT Sodium Potassium Chloride Carbon Dioxide Anion Gap BUN Creatinine Est GFR ( Amer) Est GFR (Non-Af Amer) Random Glucose Calcium Total Bilirubin AST ALT Alkaline Phosphatase Total Protein Albumin Globulin Albumin/Globulin Ratio Blood Type B POSITIVE Antibody Screen Negative Assessment & Plan - Assessment and Plan (Free Text) Assessment: 78-year-old male admitted with pancytopenia, status post transfusion of packed RBCs and platelets overnight. Chest x-ray consistent with left pleural effusion and infiltrate Thoracentesis procedure done under aseptic conditions and local anesthesia 1 L of straw-colored fluid removed Patient tolerated the procedure well Antibiotics Follow-up hemoglobin and platelets Follow-up culture and sensitivity
[2018-12-18 11:22] LABS: HEMOGLOBIN 7.7 g/dL (12.0-18.0); MEAN CELL VOLUME 89.1 fL (80.0-94.0); MEAN CORPUSCULAR HEMOGLOBIN 30.6 pg (27.0-31.0); MEAN CORPUSCULAR HGB CONC 34.3 g/dL (33.0-37.0); MEAN PLATELET VOLUME 7.8 fL (7.2-11.7); RBC 2.51 Mil/uL (4.40-5.90); RED CELL DISTRIBUTION WIDTH 13.5 % (11.5-14.5)
[2018-12-18 11:35] LABS: WHITE BLOOD COUNT 0.4 K/uL (4.8-10.8)
[2018-12-18 12:39] LABS: BODY FLUID TYPE PLEURAL/THORACENTESI
[2018-12-18 13:14] LABS: BF GROSS APPEARANCE SL CLOUDY (CLEAR)
[2018-12-18 13:16] LABS: BODY FLUID MONO/MACROPHAGE 6 % (0-0); BODY FLUID TOTAL COUNT 100 (0-0)
[2018-12-18 14:23] LABS: BASO % 0.6 % (0.0-2.0); HEMOGLOBIN 7.5 g/dL (12.0-18.0); LYMPH % 59.9 % (20.0-40.0); MEAN CELL VOLUME 89.3 fL (80.0-94.0); MEAN CORPUSCULAR HEMOGLOBIN 30.4 pg (27.0-31.0); MEAN CORPUSCULAR HGB CONC 34.1 g/dL (33.0-37.0); MEAN PLATELET VOLUME 8.7 fL (7.2-11.7); MONO % 34.9 % (0.0-10.0); NEUT % 4.6 % (50.0-75.0); NRBC % 1.2 % (0.0-2.0); RBC 2.47 Mil/uL (4.40-5.90); RED CELL DISTRIBUTION WIDTH 13.4 % (11.5-14.5)
[2018-12-18 14:24] LABS: LYMPH # 0.2 K/uL (1.0-4.3); MONO # 0.1 K/uL (0.0-0.8)
[2018-12-18 14:26] LABS: WHITE BLOOD COUNT 0.3 K/uL (4.8-10.8)
[2018-12-18 14:46] LABS: ALB/GLOB RATIO 0.8 (1.0-2.1); ALBUMIN 2.4 g/dL (3.5-5.0); ALT/SGPT 19 U/L (21-72); AST/SGOT 19 U/L (17-59); BLOOD UREA NITROGEN 24 mg/dL (9-20); CALCIUM 7.8 mg/dl (8.6-10.4); GFR NON-AFRICAN AMERICAN > 60
--- NOTE | 2018-12-18 18:14 | RAD ---
Date of service: 12/18/2018 HISTORY: Post Thorecentesis COMPARISON: Portable chest 219 7:43 a.m.. FINDINGS: LUNGS: Marked improvement in aeration of the left hemithorax is appreciated status post thoracentesis. Left upper lobe infiltrate is reiterated with likely underlying skin diffuse chronic interstitial pulmonary changes noted bilaterally. No right-sided infiltrate. PLEURA: Trace residual pleural effusion left base and possibly left apex with none on the right. No pneumothorax bilaterally. CARDIOVASCULAR: Calcific atherosclerotic changes are seen related to the thoracic aorta. Normal cardiac size. No pulmonary vascular congestion. OSSEOUS STRUCTURES: No significant abnormalities. VISUALIZED UPPER ABDOMEN: Normal. OTHER FINDINGS: None. IMPRESSION: Markedly improved aeration left hemithorax status post thoracentesis. No pneumothorax. With upper lobe infiltrate suggested with underlying interstitial pulmonary changes noted bilaterally.
[2018-12-19 08:12] LABS: BASO % 0.9 % (0.0-2.0); EOS % 0.8 % (0.0-4.0); HEMOGLOBIN 7.3 g/dL (12.0-18.0); LYMPH # 0.2 K/uL (1.0-4.3); LYMPH % 65.1 % (20.0-40.0); MEAN CORPUSCULAR HEMOGLOBIN 30.5 pg (27.0-31.0); MEAN CORPUSCULAR HGB CONC 34.3 g/dL (33.0-37.0); MEAN PLATELET VOLUME 9.5 fL (7.2-11.7); MONO # 0.1 K/uL (0.0-0.8); MONO % 30.4 % (0.0-10.0); NEUT % 2.8 % (50.0-75.0); NRBC % 0.7 % (0.0-2.0); RBC 2.41 Mil/uL (4.40-5.90); RED CELL DISTRIBUTION WIDTH 13.5 % (11.5-14.5)
[2018-12-19 08:22] LABS: WHITE BLOOD COUNT 0.4 K/uL (4.8-10.8)
[2018-12-19 08:28] LABS: ALB/GLOB RATIO 0.8 (1.0-2.1); ALBUMIN 2.2 g/dL (3.5-5.0); ALT/SGPT 26 U/L (21-72); AST/SGOT 13 U/L (17-59); BLOOD UREA NITROGEN 20 mg/dL (9-20); CALCIUM 7.9 mg/dl (8.6-10.4); GFR NON-AFRICAN AMERICAN > 60
--- NOTE | 2018-12-19 08:34 | CP.PCM.PN ---
Subjective - Date & Time of Evaluation Date of Evaluation: 12/19/18 Time of Evaluation: 10:40 - Subjective Subjective: Patient examined at bedside with family in room. Patient reports he wants to leave this evening in order to be home for an upcoming home nursing appointment scheduled tomorrow morning at their home. I spoke to Dr. Bobby who wants the patient optimized before leaving AMA. Pt reports persistent cough despite tessalon perles. Pt subsequently decided against leaving AMA, and wants to stay to undergo treatment. Objective - Vital Signs/Intake and Output Vital Signs (last 24 hours): Temp Pulse Resp BP Pulse Ox 98.5 F 100 H 18 124/58 L 96 12/19/18 07:00 12/19/18 07:00 12/19/18 07:00 12/19/18 07:00 12/19/18 07:00 Intake and Output: 12/19/18 12/19/18 06:59 18:59 Intake Total 300 150 Balance 300 150 - Medications Medications: Current Medications Acetaminophen (Tylenol 325mg Tab) 650 mg PO Q6 PRN PRN Reason: Fever >100.4 F Benzonatate (Tessalon Perles) 100 mg PO TID [facility] Last Admin: 12/18/18 17:04 Dose: 100 mg Docusate Sodium (Colace) 100 mg PO BID [facility] Last Admin: 12/18/18 17:04 Dose: Not Given Furosemide (Lasix) 20 mg PO DAILY [facility] Last Admin: 12/18/18 09:26 Dose: 20 mg Lisinopril (Zestril) 5 mg PO DAILY [facility] Last Admin: 12/18/18 09:26 Dose: 5 mg Pantoprazole Sodium (Protonix Ec Tab) 40 mg PO DAILY [facility] Last Admin: 12/18/18 09:26 Dose: 40 mg Tamsulosin HCl (Flomax) 0.4 mg PO BID [facility] Last Admin: 12/18/18 17:03 Dose: 0.4 mg - Labs Labs: 12/19/18 08:03 12/19/18 08:03 PT 15.7 SECONDS (9.7-12.2) H 12/17/18 13:14 INR 1.4 12/17/18 13:14 APTT 28 SECONDS (21-34) 12/17/18 13:14 - Additional Findings Additional findings: - Constitutional Appears: Non-toxic, No Acute Distress - Head Exam Head Exam: ATRAUMATIC, NORMAL INSPECTION, NORMOCEPHALIC - Eye Exam Eye Exam: EOMI, Normal appearance Pupil Exam: NORMAL ACCOMODATION - ENT Exam ENT Exam: Mucous Membranes Moist, Normal Exam - Neck Exam Neck Exam: Normal Inspection - Respiratory Exam Respiratory Exam: Accessory Muscle Use, Decreased Breath Sounds, Rales (left diffuse). absent: Clear to Ausculation Bilateral, Respiratory Distress - Cardiovascular Exam Cardiovascular Exam: Tachycardia, REGULAR RHYTHM - GI/Abdominal Exam GI & Abdominal Exam: Soft, Normal Bowel Sounds. absent: Tenderness - Extremities Exam Extremities Exam: Normal Inspection. absent: Calf Tenderness, Pedal Edema - Neurological Exam Neurological Exam: Alert, Awake, Oriented x3 - Psychiatric Exam Psychiatric exam: Normal Affect, Normal Mood - Skin Skin Exam: Dry, Intact, Normal Color, Warm Assessment and Plan - Assessment and Plan (Free Text) Assessment: Patient is a 78 year old male with history of AML w/ associated pancytopenia, HTN, BPH admitted for treatment of pancytopenia and worsening left sided pleural effusion Plan: Pancytopenia / AML- dx Sep 2018 - Hgb 7.3, Plt 22 - Hgb goal >9, Plt goal >20 - Pre-treat transfusions with Tylenol and Benadryl - 2u pRBC, 2u Plt(12/17) - 2U PRBC, 1U plt(12/19) - Tylenol 650 mg PO Q6H PRN fevers - Hem/onc consulted (Diamante) Left pleural effusion - CXR(12/18) s/p thoracentesis: marked improvement in aeration left hemithorax. No pneumothorax. Upper lobe infiltrate suggested w/ underlying interstitial pulmonary changes B/L - continue home Lasix 20 mg PO daily - Lasix PRN after transfusions - started vapotherm - Tessalon Perles and Robitussin for cough PRN - s/p thoracentesis with Dr. Thurston, 1L removed(12/18) - pleural studies +++RBC, f/u cx - Pulmonology consulted (Bertrand) Hypertension - Vitals Q6H - continue home Lisinopril 5 mg PO daily - continue home Lasix 20 mg PO daily Interstitial Pulmonary Disease, chronic -Duonebs Q4h prn Benign prostatic hyperplasia - continue home Flomax 0.4 mg PO daily Ppx: VTE: AC contraindicated due to pancytopenia, SCDs GI: Protonix 40 mg PO daily, Colace 100 mg PO BID Neutropenic Precautions Dispo: Initially patient wanted to leave [facility] to make it home for a morning appointment, but pt has decided to stay and undergo further tyreatment. Code status: DNR/DNI Discussed with Dr. Lindsay Amato, PGY-1
[2018-12-19] MEDS: Pantoprazole 40 mg EC Tab PO SCH (09:08)
--- NOTE | 2018-12-19 09:51 | CP.PCM.PN ---
Subjective - Date & Time of Evaluation Date of Evaluation: 12/19/18 Time of Evaluation: 09:51 - Subjective Subjective: Reason for consultation: Large pleural effusion and shortness of breath Pulmonary follow up, Covering Dr Thurston The Patient was seen and examined at the bedside, Medical records reviewed, and management issues were discussed and formulated with the house staff. Events reviewed Mr Zhang is a 78-year-old male with PMHx of Hypertension, pancytopenia, AML, left pneumothorax S/P chest tube 11/2017 and pleural effusion status post pigtail catheter insertion during last admission who was seen by his oncologist and advised him to come to the emergency room for blood transfusion. Patient also complaining of shortness of breath and chest x-ray consistent with left pleural effusion and infiltrate. He received 2 units packed RBCs and 2 units platelets Also underwent Thoracentesis procedure with 1 L of straw-colored fluid removed Patient comfortable, NAD Pt AAO x3, follows commands Afebrile, NSR Saturation 96% on Nasal cannula SH: Former smoker- 1 ppd 20 years ago. No alcohol or illicit drug use. Lives with and daughters are here helping take care of patient. Objective - Vital Signs/Intake and Output Vital Signs (last 24 hours): Temp Pulse Resp BP Pulse Ox 98.5 F 100 H 18 119/61 96 12/19/18 07:00 12/19/18 09:07 12/19/18 07:00 12/19/18 09:09 12/19/18 07:00 Intake and Output: 12/19/18 12/19/18 06:59 18:59 Intake Total 300 150 Balance 300 150 - Medications Medications: Current Medications Acetaminophen (Tylenol 325mg Tab) 650 mg PO Q6 PRN PRN Reason: Fever >100.4 F Benzonatate (Tessalon Perles) 100 mg PO TID [facility] Last Admin: 12/19/18 09:09 Dose: 100 mg Docusate Sodium (Colace) 100 mg PO BID [facility] Last Admin: 12/19/18 09:09 Dose: 100 mg Furosemide (Lasix) 20 mg PO DAILY [facility] Last Admin: 12/19/18 09:09 Dose: 20 mg Lisinopril (Zestril) 5 mg PO DAILY [facility] Last Admin: 12/19/18 09:09 Dose: 5 mg Pantoprazole Sodium (Protonix Ec Tab) 40 mg PO DAILY [facility] Last Admin: 12/19/18 09:08 Dose: 40 mg Tamsulosin HCl (Flomax) 0.4 mg PO BID [facility] Last Admin: 12/19/18 09:08 Dose: 0.4 mg - Labs Labs: 12/19/18 08:03 12/19/18 08:03 PT 15.7 SECONDS (9.7-12.2) H 12/17/18 13:14 INR 1.4 12/17/18 13:14 APTT 28 SECONDS (21-34) 12/17/18 13:14 Assessment and Plan (1) Pleural effusion Status: Acute (2) Pneumonia Status: Acute (3) Acute anemia Status: Acute (4) Lung mass Status: Acute - Assessment and Plan (Free Text) Assessment: CXR revealed interval increase in left pleural effusion S/P Thoracentesis procedure 12/18 with 1 L of straw-colored fluid removed Continue current managements No Antibiotics for now Albuterol/Ipratropium INH Q6H PRN Gentle Diuresis, Lasix 20 mg PO daily Follow-up hemoglobin and platelets Follow-up culture and sensitivity Suplemental Oxygen to keep saturation >94% Pt's current status is discussed with pt at bedside
[2018-12-19] MEDS: guaiFENesin 100 mg/5 ml Syrup UD PO PRN (17:27)
[2018-12-19] MEDS ORDERED: Albuterol-Ipratrop 3 mg / 0.5 (3 ml) UD INH PRN (18:58)
--- NOTE | 2018-12-19 20:24 | CP.PCM.PCO ---
Addendum Addendum: 12/19/18 20:21 Discussion with patient and 2 daughters at bedside: Patient states he is feeling better over the past 2 days. He is awake, alert, and oriented. Approached patient and family with POLST. Patient now expresses that he would like to be full code. Explained to patient that is important to discuss his wishes with his family, and he has been hesitant to discuss the topic each encounter and has previously stated he wanted to be DNR/DNI (this admission and prior admission in ICU). Conveyed change of code status to nurseGladis. Order changed in EMR to Full code and DNR/DNI bracelet removed.
--- NOTE | 2018-12-19 22:00 | CP.PCM.CON ---
History of Present Illness - History of Present Illness History of Present Illness: 78 year old male with a history of AML diagnosed 09/2018 on decitabine (last dosed 4 weeks ago), lung mass, pneumothorax, admitted with pancytopenia. The patient had blood work done in my office and was noted to be severely pancytopen ic and instructed to come to the hospital for PRBC and platelet transfusions. He is s/p 2U PRBC and 2bags of platelets and notes to feeling better. He is hopeful to start decitabine treatment on Thursday. Past medical history: COPD, AML, lung mass, pneumothorax Past surgical history: Denies Family history: Denies hematologic and oncologic problems Social history: Former tobacco abuse Allergies: NKA Review of systems: All remaining review of systems including HEENT, cardiovascular, respiratory, gastrointestinal, genitourinary, musculoskeletal, dermatologic, neurologic, and psychiatric are negative unless mentioned in the HPI. Past Patient History - Infectious Disease Hx of Infectious Diseases: None - Tetanus Immunizations Tetanus Immunization: Unknown - Past Medical History & Family History Past Medical History?: Yes - Past Social History Smoking Status: Former Smoker - CARDIAC Hx Hypertension: Yes Hx Peripheral Edema: Yes - PULMONARY Hx Chronic Obstructive Pulmonary Disease (COPD): Yes Hx Pneumonia: Yes - NEUROLOGICAL Hx Neurological Disorder: No - HEENT Hx HEENT Problems: No - RENAL Hx Chronic Kidney Disease: No - ENDOCRINE/METABOLIC Hx Endocrine Disorders: No - HEMATOLOGICAL/ONCOLOGICAL Hx Blood Disorders: Yes Hx Leukemia: Yes (Recieves Chemo last chemo tx was Thursday) - INTEGUMENTARY Hx Dermatological Problems: No - MUSCULOSKELETAL/RHEUMATOLOGICAL Hx Falls: No - GASTROINTESTINAL Hx Gastrointestinal Disorders: Yes Hx Constipation: Yes - GENITOURINARY/GYNECOLOGICAL Hx Genitourinary Disorders: No - PSYCHIATRIC Hx Substance Use: No (pt denies) - SURGICAL HISTORY Hx Surgeries: Yes Other/Comment: chest tube. - ANESTHESIA Hx Anesthesia: No Meds Allergies/Adverse Reactions: Allergies Allergy/AdvReac Type Severity Reaction Status Date / Time No Known Allergies Allergy Verified 12/17/18 12:10 - Medications Medications: Current Medications Acetaminophen (Tylenol 325mg Tab) 650 mg PO Q6 PRN PRN Reason: Fever >100.4 F Albuterol/Ipratropium (Duoneb 3 Mg/0.5 Mg (3 Ml) Ud) 3 ml INH RQ6 PRN PRN Reason: Shortness of Breath Last Admin: 12/19/18 19:14 Dose: 3 ml Benzonatate (Tessalon Perles) 100 mg PO TID [facility] Last Admin: 12/19/18 17:27 Dose: 100 mg Docusate Sodium (Colace) 100 mg PO BID [facility] Last Admin: 12/19/18 18:11 Dose: Not Given Furosemide (Lasix) 20 mg PO DAILY [facility] Last Admin: 12/19/18 09:09 Dose: 20 mg Guaifenesin (Robitussin) 100 mg PO Q4H PRN PRN Reason: Cough Last Admin: 12/19/18 17:27 Dose: 100 mg Lisinopril (Zestril) 5 mg PO DAILY [facility] Last Admin: 12/19/18 09:09 Dose: 5 mg Pantoprazole Sodium (Protonix Ec Tab) 40 mg PO DAILY [facility] Last Admin: 12/19/18 09:08 Dose: 40 mg Tamsulosin HCl (Flomax) 0.4 mg PO BID [facility] Last Admin: 12/19/18 17:27 Dose: 0.4 mg Physical Exam - Constitutional Appears: Cachectic - Head Exam Head Exam: ATRAUMATIC - Eye Exam Eye Exam: Normal appearance - ENT Exam ENT Exam: Mucous Membranes Dry - Respiratory Exam Respiratory Exam: Decreased Breath Sounds - Cardiovascular Exam Cardiovascular Exam: +S1, +S2 - GI/Abdominal Exam GI & Abdominal Exam: Normal Bowel Sounds - Extremities Exam Extremities exam: Positive for: normal inspection - Neurological Exam Neurological exam: Oriented x3 - Psychiatric Exam Psychiatric exam: Normal Affect, Normal Mood - Skin Skin Exam: Warm Results - Vital Signs Recent Vital Signs: Last Vital Signs Temp 100 F H 12/19/18 21:23 Pulse 94 H 12/19/18 21:23 Resp 22 12/19/18 21:23 BP 114/60 12/19/18 21:23 Pulse Ox 100 12/19/18 15:10 - Labs Result Diagrams: 12/19/18 08:03 12/19/18 08:03 Labs: Laboratory Results - last 24 hr 12/17/18 12/19/18 12/19/18 13:14 08:03 08:03 WBC 0.4 L* RBC 2.41 L Hgb 7.3 L Hct 21.4 L MCV 89.0 MCH 30.5 MCHC 34.3 RDW 13.5 Plt Count 22 L* MPV 9.5 Neut % (Auto) 2.8 L Lymph % (Auto) 65.1 H [place] % (Auto) 30.4 H Eos % (Auto) 0.8 Baso % (Auto) 0.9 Neut # (Auto) 0.0 L Lymph # (Auto) 0.2 L [place] # (Auto) 0.1 Eos # (Auto) 0.0 Baso # (Auto) 0.0 Total Counted Cancelled Neutrophils % (Manual) Cancelled Band Neutrophils % Cancelled Lymphocytes % (Manual) Cancelled Reactive Lymphs % Cancelled Monocytes % (Manual) Cancelled Eosinophils % (Manual) Cancelled Basophils % (Manual) Cancelled Metamyelocytes % Cancelled Myelocytes % Cancelled Promyelocytes % Cancelled Blast Cells % Cancelled Plasma Cell % (Manual) Cancelled Nucleated RBC % Cancelled Hypersegmented Polys Cancelled Smudge Cells Cancelled Toxic Granulation Cancelled Dohle Bodies Cancelled Nazanin Rods Cancelled Platelet Estimate Cancelled Plt Clumps, EDTA Cancelled Large Platelets Cancelled Giant Platelets Cancelled RBC Morphology Cancelled Polychromasia Cancelled Hypochromasia (manual) Cancelled Poikilocytosis (manual Cancelled Basophilic Stippling Cancelled Anisocytosis (manual) Cancelled Microcytosis (manual) Cancelled Macrocytosis (manual) Cancelled Spherocytes Cancelled Sickle Cells Cancelled Target Cells Cancelled Tear Drop Cells Cancelled Ovalocytes Cancelled Stomatocytes Cancelled Helmet Cells Cancelled Gunderson-Marbury Bodies Cancelled Terry Cells Cancelled Acanthocytes (Spur) Cancelled Rouleaux Cancelled Schistocytes Cancelled Sodium 133 Potassium 3.9 Chloride 100 Carbon Dioxide 29 Anion Gap 8 L BUN 20 Creatinine 0.7 L Est GFR ( Amer) > 60 Est GFR (Non-Af Amer) > 60 Random Glucose 99 Calcium 7.9 L Phosphorus 2.8 Magnesium 1.8 Total Bilirubin 1.5 H AST 13 L D ALT 26 Alkaline Phosphatase 97 Total Protein 5.1 L Albumin 2.2 L Globulin 2.9 Albumin/Globulin Ratio 0.8 L Blood Type B POSITIVE Antibody Screen Negative Assessment & Plan (1) Pancytopenia Assessment and Plan: secondary to AML transfusion support goal Hgb >9 goal plt > 20,000 Status: Chronic Priority: High (2) AML (acute myeloblastic leukemia) Assessment and Plan: transfusion support PRN outpatient decitabine Thank you for this interesting consult. Status: Chronic Priority: High
[2018-12-20 00:31] VITALS: RESP 20; TEMP 98.4; O2SAT 97
[2018-12-20 07:47] VITALS: PULSE 91
[2018-12-20 08:37] LABS: ALB/GLOB RATIO 0.8 (1.0-2.1); ALBUMIN 2.3 g/dL (3.5-5.0); ALT/SGPT 14 U/L (21-72); AST/SGOT 33 U/L (17-59); BLOOD UREA NITROGEN 21 mg/dL (9-20); CALCIUM 7.9 mg/dl (8.6-10.4); GFR NON-AFRICAN AMERICAN > 60
[2018-12-20 09:00] LABS: BASO % 1.4 % (0.0-2.0); EOS % 0.1 % (0.0-4.0); LYMPH # 0.2 K/uL (1.0-4.3); LYMPH % 65.8 % (20.0-40.0); MEAN CELL VOLUME 89.4 fL (80.0-94.0); MEAN CORPUSCULAR HEMOGLOBIN 30.7 pg (27.0-31.0); MEAN CORPUSCULAR HGB CONC 34.3 g/dL (33.0-37.0); MEAN PLATELET VOLUME 7.6 fL (7.2-11.7); MONO # 0.1 K/uL (0.0-0.8); MONO % 29.4 % (0.0-10.0); NEUT % 3.3 % (50.0-75.0); NRBC % 1.2 % (0.0-2.0); RBC 3.08 Mil/uL (4.40-5.90); RED CELL DISTRIBUTION WIDTH 13.5 % (11.5-14.5)
[2018-12-20 09:08] LABS: HEMOGLOBIN 9.4 g/dL (12.0-18.0); WHITE BLOOD COUNT 0.3 K/uL (4.8-10.8)
--- NOTE | 2018-12-20 10:07 | US ---
Limited left coral thorax ultrasound HISTORY: Pleural effusion. COMPARISON: X-ray dated 12/18/2018 TECHNIQUE: Real-time sonography was performed through the left hemithorax. Findings: Left pleural effusion. Impression: Left pleural effusion.
[2018-12-20] MEDS: Pantoprazole 40 mg EC Tab PO SCH (10:32)
[2018-12-20 10:33] VITALS: BP 131/91
--- NOTE | 2018-12-20 11:12 | CP.PCM.CON ---
History of Present Illness - History of Present Illness History of Present Illness: Palliative consult requested by Doctor Mojica for fallow up on goals of care discussion Patient is a 78 yo male who was admitted for blood transfusion as per Doctor Bobby suggestions 2nd to Hb 5.9. Patient was discharged just 3 days ago after being treated here for the symptoms of acute anemia, pneumonia and is post Left chest tube removal for pleural effusion. Patient fsallowd up as an outpatient with Doctor Diamante, when his low Hb was detected. On this readmission, patient reported feeling equaly week at home after discharg e, same as he was feeling while at the hospital. After receiving 2 units of PRBCs on this admission Hb agnes to 9.4. However, patient continues to be feeling weak and needs assistance with ambulation. He easily gets SOB with little exertion. Patient is planned for discharge home today with idea to continue Chemo Tx with Doctor Bobby if he is seen stable enough. In ED on this admission patiet suggested he would not want to be intubated if his condition gets worse and Palliative Care was asked to discuss it with patient. PMH: AML, diagnosed 2017, Chemo Tx X 2. Soc. 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 Hx: non significant Review of Systems - Constitutional Constitutional: Weight Loss, Weakness - EENT Eyes: absent: As Per HPI, Blind Spots, Blurred Vision, Change in Vision, Decreased Night Vision, Diplopia, Discharge, Dry Eye, Exophthalmos, Floaters, Irritation, Itchy Eyes, Loss of Peripheral Vision, Pain, Photophobia, Requires Corrective Lenses, Sees Flashes, Spots in Vision, Tunnel Vision, Other Visual Disturbances, Loss of Vision, Other Ears: absent: As Per HPI, Decreased Hearing, Ear Discharge, Ear Pain, Tinnitus, Abnormal Hearing, Disequilibrium, Dizziness, Other Nose/Mouth/Throat: absent: As Per HPI, Epistaxis, Nasal Congestion, Nasal Discharge, Nasal Obstruction, Nasal Trauma, Nose Pain, Post Nasal Drip, Sinus Pain, Sinus Pressure, Bleeding Gums, Change in Voice, Dental Pain, Dry Mouth, Dysphagia, Halitosis, Hoarsness, Lip Swelling, Mouth Lesions, Mouth Pain, Odynophagia, Sore Throat, Throat Swelling, Tongue Swelling, Facial Pain, Neck Pain, Neck Mass, Other - Cardiovascular Cardiovascular: Dyspnea, Dyspnea on Exertion - Respiratory Respiratory: Dyspnea, Dyspnea on Exertion - Gastrointestinal Gastrointestinal: Nausea - Genitourinary Genitourinary: absent: As Per HPI, Change in Urinary Stream, Difficulty Urinating, Dysuria, Flank Pain, Hematuria, Pyuria, Nocturia, Urinary Incontine nce, Urinary Frequency, Urinary Hesitance, Urinary Urgency, Voiding Freq/Small Amts, Freq UTI, Hx Renal/Bladder Calculi, Hx /Renal Surgery, Bladder Distension, Other - Musculoskeletal Musculoskeletal: Muscle Weakness - Integumentary Integumentary: Dry Skin - Neurological Neurological: Weakness - Psychiatric Psychiatric: absent: As Per HPI, Abnormal Sleep Pattern, Anhedonia, Anxiety, Auditory Hallucinations, Behavioral Changes, Change in Appetite, Change in Libido, Confusion, Depression, Difficulty Concentrating, Hallucinations, Homicidal Ideation, Hopelessness, Irritability, Memory Loss, Mood Swings, Panic Attacks, Paranoia, Suicidal Ideation, Visual Hallucinations, Tactile Hallucinations, Other - Endocrine Endocrine: absent: As Per HPI, Change in Body Appearance, Change in Libido, Cold Intolorance, Deepening of Voice, Excessive Sweating, Fatigue, Flushing, Heat Intolorance, Increase in Ring/Shoe/Hat Size, Palpitations, Polydipsia, Polyphagia, Polyuria, Other - Hematologic/Lymphatic Hematologic: Easy Bleeding Past Patient History - Infectious Disease Hx of Infectious Diseases: None - Tetanus Immunizations Tetanus Immunization: Unknown - Past Medical History & Family History Past Medical History?: Yes - Past Social History Smoking Status: Former Smoker - CARDIAC Hx Hypertension: Yes Hx Peripheral Edema: Yes - PULMONARY Hx Chronic Obstructive Pulmonary Disease (COPD): Yes Hx Pneumonia: Yes - NEUROLOGICAL Hx Neurological Disorder: No - HEENT Hx HEENT Problems: No - RENAL Hx Chronic Kidney Disease: No - ENDOCRINE/METABOLIC Hx Endocrine Disorders: No - HEMATOLOGICAL/ONCOLOGICAL Hx Blood Disorders: Yes Hx Leukemia: Yes (Recieves Chemo last chemo tx was Thursday) - INTEGUMENTARY Hx Dermatological Problems: No - MUSCULOSKELETAL/RHEUMATOLOGICAL Hx Falls: No - GASTROINTESTINAL Hx Gastrointestinal Disorders: Yes Hx Constipation: Yes - GENITOURINARY/GYNECOLOGICAL Hx Genitourinary Disorders: No - PSYCHIATRIC Hx Substance Use: No (pt denies) - SURGICAL HISTORY Hx Surgeries: Yes Other/Comment: chest tube. - ANESTHESIA Hx Anesthesia: No Meds Allergies/Adverse Reactions: Allergies Allergy/AdvReac Type Severity Reaction Status Date / Time No Known Allergies Allergy Verified 12/17/18 12:10 - Medications Medications: Current Medications Acetaminophen (Tylenol 325mg Tab) 650 mg PO Q6 PRN PRN Reason: Fever >100.4 F Albuterol/Ipratropium (Duoneb 3 Mg/0.5 Mg (3 Ml) Ud) 3 ml INH RQ6 PRN PRN Reason: Shortness of Breath Last Admin: 12/19/18 19:14 Dose: 3 ml Benzonatate (Tessalon Perles) 100 mg PO TID [facility] Last Admin: 12/20/18 10:31 Dose: 100 mg Docusate Sodium (Colace) 100 mg PO BID [facility] Last Admin: 12/20/18 10:35 Dose: Not Given Furosemide (Lasix) 20 mg PO DAILY [facility] Last Admin: 12/20/18 10:31 Dose: 20 mg Guaifenesin (Robitussin) 100 mg PO Q4H PRN PRN Reason: Cough Last Admin: 12/19/18 17:27 Dose: 100 mg Lisinopril (Zestril) 5 mg PO DAILY [facility] Last Admin: 12/20/18 10:32 Dose: 5 mg Pantoprazole Sodium (Protonix Ec Tab) 40 mg PO DAILY [facility] Last Admin: 12/20/18 10:32 Dose: 40 mg Tamsulosin HCl (Flomax) 0.4 mg PO BID [facility] Last Admin: 12/20/18 10:31 Dose: 0.4 mg Physical Exam - Constitutional Appears: Chronically Ill - Head Exam Head Exam: ATRAUMATIC, NORMAL INSPECTION, NORMOCEPHALIC - Eye Exam Eye Exam: EOMI, Normal appearance, PERRL Pupil Exam: NORMAL ACCOMODATION ( ) - ENT Exam ENT Exam: Mucous Membranes Dry, Normal Exam - Neck Exam Neck exam: Positive for: Normal Inspection - Respiratory Exam Respiratory Exam: Decreased Breath Sounds, NORMAL BREATHING PATTERN - Cardiovascular Exam Cardiovascular Exam: Tachycardia, Irregular Rhythm - GI/Abdominal Exam GI & Abdominal Exam: Normal Bowel Sounds, Soft - Rectal Exam Rectal Exam: Deferred - Exam Exam: NORMAL INSPECTION - Extremities Exam Extremities exam: Positive for: normal inspection - Back Exam Back exam: NORMAL INSPECTION - Neurological Exam Neurological exam: Abnormal Gait, Alert, Oriented x3 - Psychiatric Exam Psychiatric exam: Normal Affect, Normal Mood - Skin Skin Exam: Dry, Pallor Results - Vital Signs Recent Vital Signs: Last Vital Signs Temp 98.4 F 12/20/18 07:10 Pulse 91 H 12/20/18 07:10 Resp 20 12/20/18 07:10 BP 131/91 H 12/20/18 10:31 Pulse Ox 97 12/20/18 07:10 - Labs Result Diagrams: 12/20/18 08:53 12/20/18 08:08 Labs: Laboratory Results - last 24 hr 12/17/18 12/20/18 12/20/18 13:14 08:08 08:53 WBC 0.3 L* RBC 3.08 L Hgb 9.4 L D Hct 27.5 L MCV 89.4 MCH 30.7 MCHC 34.3 RDW 13.5 Plt Count 30 L* MPV 7.6 Neut % (Auto) 3.3 L Lymph % (Auto) 65.8 H Sanders % (Auto) 29.4 H Eos % (Auto) 0.1 Baso % (Auto) 1.4 Neut # (Auto) 0.0 L Lymph # (Auto) 0.2 L Sanders # (Auto) 0.1 Eos # (Auto) 0.0 Baso # (Auto) 0.0 Total Counted Cancelled Neutrophils % (Manual) Cancelled Band Neutrophils % Cancelled Lymphocytes % (Manual) Cancelled Reactive Lymphs % Cancelled Monocytes % (Manual) Cancelled Eosinophils % (Manual) Cancelled Basophils % (Manual) Cancelled Metamyelocytes % Cancelled Myelocytes % Cancelled Promyelocytes % Cancelled Blast Cells % Cancelled Plasma Cell % (Manual) Cancelled Nucleated RBC % Cancelled Hypersegmented Polys Cancelled Smudge Cells Cancelled Toxic Granulation Cancelled Dohle Bodies Cancelled Nazanin Rods Cancelled Platelet Estimate Cancelled Plt Clumps, EDTA Cancelled Large Platelets Cancelled Giant Platelets Cancelled RBC Morphology Cancelled Polychromasia Cancelled Hypochromasia (manual) Cancelled Poikilocytosis (manual Cancelled Basophilic Stippling Cancelled Anisocytosis (manual) Cancelled Microcytosis (manual) Cancelled Macrocytosis (manual) Cancelled Spherocytes Cancelled Sickle Cells Cancelled Target Cells Cancelled Tear Drop Cells Cancelled Ovalocytes Cancelled Stomatocytes Cancelled Helmet Cells Cancelled [place] Bodies Cancelled [place] Cells Cancelled Acanthocytes (Spur) Cancelled Rouleaux Cancelled Schistocytes Cancelled Sodium 131 L Potassium 5.1 Chloride 100 Carbon Dioxide 28 Anion Gap 8 L BUN 21 H Creatinine 0.5 L Est GFR ( Amer) > 60 Est GFR (Non-Af Amer) > 60 Random Glucose 102 Calcium 7.9 L Phosphorus 2.9 Magnesium 1.9 Total Bilirubin 1.8 H AST 33 ALT 14 L D Alkaline Phosphatase 73 Total Protein 5.3 L Albumin 2.3 L Globulin 3.0 Albumin/Globulin Ratio 0.8 L Blood Type B POSITIVE Antibody Screen Negative Assessment & Plan - Assessment and Plan (Free Text) Assessment: Palliative consult Full Code, there is no advance directive on chart, PPS 30% I reviewed all Medical records, diagnostic studies, examined and interviewed patient in the bed Patient is alert, oriented X 3 with [id number] that is clear. Patient looks more sick to me than the last time I saw him, about 7 days ago. Skin and sclera are pale despite Hb 9.4. Platelets agnes up to 30 from 12. Breathing is shallow , O2 via NC, O2Sat 99%.Patient is S/P thoracentesis on this admission with Doctor Bertrand. Abdomen soft, states poor appetite, forces himself to eat. Patient is able to use bathroom with extensive assistance due to SOB. Daughter at bed side assisting. WBC 0.3. Patient is on reverse isolation. Medications are mostly for symptoms management.BP 131/91, HR 91, O2Sat 97 % on NC I reviewed patient's clinical condition and elicited his expectations. The daughter spoke for the patient and he confirmed all her statements. They are planing on continuing with Chemo Tx if suggested by Doctor Bobby. Even though diagnosis is severe , patient is determined to fight it as long as possible.. It was documented that in ED patient and family stated wish for DNR/DNI. I asked them to elaborate on this . The daughter said that at that time patient was feeling very weak and had a fear of ET and that is why he asked to be DNI. But now, when he feels better he is uncertain about it and wants to further talk to the family about it. I reassured the patient that he was given all possible and reasonable care needed for his condition and the Code status discussion is offered as an opportunity for patient to express his wishes. Patient and daughter stated understanding and asked for FULL CODE at this time until the further decisions were made. Impression * Chronically ill male with acute anemia 2nd to AML * SOB, pleural effusion, S/P thoracentesis * Pancitopenia * Weakness * Prognosis is poor, but patient and the family are fostering the hope that with Chemo Tx condition could be reversed * Patient and Family wish for FULL CODE Suggestion * Would continue fallow up as an outpatient with Doctor Diamante and transfuse as needed * Agree with DC home today * Full Code Advance care planing 55 min Palliative care will sign off at this time.
[2018-12-20] MEDS: guaiFENesin 100 mg/5 ml Syrup UD PO PRN (11:48)
--- NOTE | 2018-12-20 12:58 | CP.PCM.DIS ---
Provider - Provider Date of Admission: 12/17/18 15:07 Attending physician: Andrzej Montoya Jr, MD Consults: 12/17/18 15:13 Hematology Oncology Consult Stat Comment: Consulting Provider: Kartik Bobby Consulting Physician: Kartik Bobby Reason for Consult: pancytopenia, known patient 12/17/18 15:56 Pulmonology Consult Stat Comment: Consulting Provider: Narendra Thruston Consulting Physician: Narendra Thurston Reason for Consult: worsening cxr, recent pneumothorax, known pt 12/17/18 21:22 Nursing Referral for Palliative Care Routine Comment: Physician Instructions: Reason For Exam: screening score Nursing Referral for Wound Care Routine Comment: Physician Instructions: Reason For Exam: left buttocks 2 dry circular wounds dry and i 12/18/18 05:01 Palliative Care [Nursing Referral for Palliative Care] Routine Comment: Physician Instructions: Reason For Exam: code status;patient wishes to be DNR/DNI, no polst Time Spent in preparation of Discharge (in minutes): 70 Hospital Course - Lab Results Lab Results: Most Recent Lab Values WBC 0.3 K/uL (4.8-10.8) L* 12/20/18 08:53 RBC 3.08 Mil/uL (4.40-5.90) L 12/20/18 08:53 Hgb 9.4 g/dL (12.0-18.0) L D 12/20/18 08:53 Hct 27.5 % (35.0-51.0) L 12/20/18 08:53 MCV 89.4 fL (80.0-94.0) 12/20/18 08:53 MCH 30.7 pg (27.0-31.0) 12/20/18 08:53 MCHC 34.3 g/dL (33.0-37.0) 12/20/18 08:53 RDW 13.5 % (11.5-14.5) 12/20/18 08:53 Plt Count 30 K/uL (130-400) L* 12/20/18 08:53 MPV 7.6 fL (7.2-11.7) 12/20/18 08:53 Neut % (Auto) 3.3 % (50.0-75.0) L 12/20/18 08:53 Lymph % (Auto) 65.8 % (20.0-40.0) H 12/20/18 08:53 Hand % (Auto) 29.4 % (0.0-10.0) H 12/20/18 08:53 Eos % (Auto) 0.1 % (0.0-4.0) 12/20/18 08:53 Baso % (Auto) 1.4 % (0.0-2.0) 12/20/18 08:53 Neut # (Auto) 0.0 K/uL (1.8-7.0) L 12/20/18 08:53 Lymph # (Auto) 0.2 K/uL (1.0-4.3) L 12/20/18 08:53 Hand # (Auto) 0.1 K/uL (0.0-0.8) 12/20/18 08:53 Eos # (Auto) 0.0 K/uL (0.0-0.7) 12/20/18 08:53 Baso # (Auto) 0.0 K/uL (0.0-0.2) 12/20/18 08:53 Total Counted Cancelled 12/17/18 13:14 Neutrophils % (Manual) Cancelled 12/17/18 13:14 Band Neutrophils % Cancelled 12/17/18 13:14 Lymphocytes % (Manual) Cancelled 12/17/18 13:14 Reactive Lymphs % Cancelled 12/17/18 13:14 Monocytes % (Manual) Cancelled 12/17/18 13:14 Eosinophils % (Manual) Cancelled 12/17/18 13:14 Basophils % (Manual) Cancelled 12/17/18 13:14 Metamyelocytes % Cancelled 12/17/18 13:14 Myelocytes % Cancelled 12/17/18 13:14 Promyelocytes % Cancelled 12/17/18 13:14 Blast Cells % Cancelled 12/17/18 13:14 Plasma Cell % (Manual) Cancelled 12/17/18 13:14 Nucleated RBC % Cancelled 12/17/18 13:14 Hypersegmented Polys Cancelled 12/17/18 13:14 Smudge Cells Cancelled 12/17/18 13:14 Toxic Granulation Cancelled 12/17/18 13:14 Dohle Bodies Cancelled 12/17/18 13:14 Nazanin Rods Cancelled 12/17/18 13:14 Platelet Estimate Cancelled 12/17/18 13:14 Plt Clumps, EDTA Cancelled 12/17/18 13:14 Large Platelets Cancelled 12/17/18 13:14 Giant Platelets Cancelled 12/17/18 13:14 RBC Morphology Cancelled 12/17/18 13:14 Polychromasia Cancelled 12/17/18 13:14 Hypochromasia (manual) Cancelled 12/17/18 13:14 Poikilocytosis (manual Cancelled 12/17/18 13:14 Basophilic Stippling Cancelled 12/17/18 13:14 Anisocytosis (manual) Cancelled 12/17/18 13:14 Microcytosis (manual) Cancelled 12/17/18 13:14 Macrocytosis (manual) Cancelled 12/17/18 13:14 Spherocytes Cancelled 12/17/18 13:14 Sickle Cells Cancelled 12/17/18 13:14 Target Cells Cancelled 12/17/18 13:14 Tear Drop Cells Cancelled 12/17/18 13:14 Ovalocytes Cancelled 12/17/18 13:14 Stomatocytes Cancelled 12/17/18 13:14 Helmet Cells Cancelled 12/17/18 13:14 [place]und[place] Bodies Cancelled 12/17/18 13:14 [place] Cells Cancelled 12/17/18 13:14 Acanthocytes (Spur) Cancelled 12/17/18 13:14 Rouleaux Cancelled 12/17/18 13:14 Schistocytes Cancelled 12/17/18 13:14 PT 15.7 SECONDS (9.7-12.2) H 12/17/18 13:14 INR 1.4 12/17/18 13:14 APTT 28 SECONDS (21-34) 12/17/18 13:14 Sodium 131 mmol/L (132-148) L 12/20/18 08:08 Potassium 5.1 mmol/L (3.6-5.2) 12/20/18 08:08 Chloride 100 mmol/L (98-107) 12/20/18 08:08 Carbon Dioxide 28 mmol/L (22-30) 12/20/18 08:08 Anion Gap 8 (10-20) L 12/20/18 08:08 BUN 21 mg/dL (9-20) H 12/20/18 08:08 Creatinine 0.5 mg/dL (0.8-1.5) L 12/20/18 08:08 Est GFR ( Amer) > 60 12/20/18 08:08 Est GFR (Non-Af Amer) > 60 12/20/18 08:08 Random Glucose 102 mg/dL (75-110) 12/20/18 08:08 Calcium 7.9 mg/dl (8.6-10.4) L 12/20/18 08:08 Phosphorus 2.9 mg/dL (2.5-4.5) 12/20/18 08:08 Magnesium 1.9 mg/dL (1.6-2.3) 12/20/18 08:08 Total Bilirubin 1.8 mg/dL (0.2-1.3) H 12/20/18 08:08 AST 33 U/L (17-59) 12/20/18 08:08 ALT 14 U/L (21-72) L D 12/20/18 08:08 Alkaline Phosphatase 73 U/L (38-126) 12/20/18 08:08 Total Protein 5.3 g/dL (6.3-8.3) L 12/20/18 08:08 Albumin 2.3 g/dL (3.5-5.0) L 12/20/18 08:08 Globulin 3.0 gm/dL (2.2-3.9) 12/20/18 08:08 Albumin/Globulin Ratio 0.8 (1.0-2.1) L 12/20/18 08:08 Fluid Source Pleural/thoracentesi 12/18/18 12:37 Fluid Appearance Sl cloudy (CLEAR) 12/18/18 12:37 Fluid WBC 257.0 /mm3 (0.0-300.0) 12/18/18 12:37 Fluid RBC 18284.0 /mm3 (0.0-0.0) H 12/18/18 12:37 Fluid Tot Cell Count 100 (0-0) H 12/18/18 12:37 Fluid Lymphocytes 94.0 % (0-0) H 12/18/18 12:37 Fld Monocyte/Macrophag 6 % (0-0) H 12/18/18 12:37 Fluid Comment 12/18/18 12:37 Blood Type B POSITIVE 12/17/18 13:14 Antibody Screen Negative 12/17/18 13:14 - Hospital Course Hospital Course: Upon Admission: Patient is a 78 year old male with history of AML, HTN, BPH who presents to the ED as instructed by his oncologist for blood transfusions. Patient was discharged 3 days after being hospitalized for pancytopenia 2/2 AML and the development of a pneumothorax requiring a short stay in the ICU. Patient followed up with Dr. Bobby yesterday and had blood work. Patient was called by Dr. Bobby today who advised him to come to the ED to get transfused. Patient states that since he has left the hospital, he has felt about the same. He continues to have cough and gets intermittently SOB. He always uses supplemental O2. He is mostly in bed, but his family helps him get to the bathroom and OOB to chair at home. He has received a total of 2 rounds of chemotherapy. He was planned for a third before being hospitalized last time. Patient denies fevers/chills, dizziness/lightheadness, N/V, abdominal pain, D/C. Patient was found to have Hb 5.9 of and Platelet of 14. CXR showed L sided pleural effusion. Patient was admitted for Pancytopenia and pleural effusion. Hospital Course: Patient was transfused 2u PRBCs and 2u Platelets on 12/17. Heme/Onc was consulted and recommended further transfusions, with goal Hb of 9 and goal platelet count of 20. Pulmonology was consulted and recommended thoracentesis. Patient underwent thoracentesis on 12/18. 1L of straw colored fluid was removed and fluid studies showed high lymphocyte, monocyte, and RBC counts in the fluid. Subsequent CXR showed improvement of L sided pleural effusion. Patient was transfused 2u PRBCs and 1u Platelets on 12/19. Pancytopenia improved to Hb of 9.4 and Platelet of 30. Patient was deemed stable for discharge. Upon Discharge: Patient was deemed stable for discharge with instructions to follow up the same day at the office of Dr. Bobby, Danica/Onc for AML treatment. Patient and daughter were explained worrisome signs and symptoms that should prompt ED visit. Patient understood instructions and agreed. Discharge Exam - Head Exam Head Exam: ATRAUMATIC, NORMAL INSPECTION, NORMOCEPHALIC - Eye Exam Eye Exam: EOMI, Normal appearance, PERRL Pupil Exam: NORMAL ACCOMODATION - ENT Exam ENT Exam: Mucous Membranes Dry - Respiratory Exam Respiratory Exam: Clear to PA & Lateral, NORMAL BREATHING PATTERN. absent: Rales, Rhonchi, Wheezes - Cardiovascular Exam Cardiovascular Exam: REGULAR RHYTHM, +S1. absent: Gallop, Rubs, Systolic Murmur - GI/Abdominal Exam GI & Abdominal Exam: Normal Bowel Sounds, Soft. absent: Distended, Tenderness - Extremities Exam Extremities exam: normal inspection - Neurological Exam Neurological exam: Alert, Oriented x3 - Psychiatric Exam Psychiatric exam: Normal Affect, Normal Mood - Skin Skin Exam: Dry Discharge Plan - Follow Up Plan Condition: FAIR Disposition: HOME/ ROUTINE Instructions: Anemia Caused by Low Iron, Adult (DC), Pleural Effusion (DC), Bone Marrow Failure in Children (DC), Bone Marrow Failure in Children (GEN) Additional Instructions: Please visit Dr. Bobby's office today. Please take your medications as prescribed. If symptoms return please visit the emergency department. Take care and be well. Referrals: Kartik Bobby MD [Staff Provider] -
--- NOTE | 2018-12-21 16:25 | CP.PCM.PCO ---
Physician Communication Note - Physician Communication Note Physician Communication Note: please evaluate for home care
== END 2018-12-20 12:40 | disposition home or self-care (01) | DRG 834 ==
LOC: C.ER 11:51 → C.9E 15:07 → C.5S 17:15
PROVIDERS: ADMIT Internal Medicine; ATTEND Internal Medicine
PROC: 30233R1 Transfusion of Nonautologous Platelets into Peripheral Vein, Percutaneous Approach (ICD-10-PCS; principal; 2018-12-17)
PROC: 30233N1 Transfusion of Nonautologous Red Blood Cells into Peripheral Vein, Percutaneous Approach (ICD-10-PCS; 2018-12-17)
PROC: 0W9B3ZZ Drainage of Left Pleural Cavity, Percutaneous Approach (ICD-10-PCS; 2018-12-18)
PROC: 6A550Z2 Pheresis of Platelets, Single (ICD-10-PCS; 2018-12-19)
DX: C92.00 Acute myeloblastic leukemia, not having achieved remission (principal); D61.818 Other pancytopenia; J90 Pleural effusion, not elsewhere classified; J18.9 Pneumonia, unspecified organism; J44.0 Chronic obstructive pulmonary disease with (acute) lower respiratory infection; R91.8 Other nonspecific abnormal finding of lung field; I10 Essential (primary) hypertension; N40.0 Benign prostatic hyperplasia without lower urinary tract symptoms; Z87.01 Personal history of pneumonia (recurrent); Z79.899 Other long term (current) drug therapy; Z87.891 Personal history of nicotine dependence; Z99.81 Dependence on supplemental oxygen

== ENCOUNTER 2018-12-29 05:48 | Inpatient (IN) | payer MEDICARE, MEDICAID ==
[2018-12-29 05:49] VITALS: BMI 15.4
--- NOTE | 2018-12-29 06:03 | C.PDOC ---
History Of Present Illness 78 year old male with PMHx of COPD, leukemia on chemotherapy with transfusions presents to the ED c/o SOB. Patient denies fever, chills, headache, CP, palpitations, dizziness, weakness, numbness. Chief Complaint (Nursing): Shortness Of Breath History Per: Patient History/Exam Limitations: no limitations Onset/Duration Of Symptoms: Hrs Current Symptoms Are (Timing): Still Present Initiating Event: Upper Respiratory Illness Quality: Tightness Current Respiratory Medications: See Home Med List Recent travel outside of the [place]: No Additional History Per: Patient Past Medical History Reviewed: Historical Data, Nursing Documentation, Vital Signs - Medical History PMH: Anemia, COPD, HTN, Peripheral Edema, Pneumonia, Pneumothorax Denies: Chronic Kidney Disease Surgical History: No Surg Hx - [facility] Procedures ASSISTANCE WITH RESPIRATORY VENTILATION, >96 HRS, CPAP (11/29/18) DRAINAGE OF L PLEURAL CAV WITH DRAIN DEV, PERC APPROACH (11/29/18) DRAINAGE OF LEFT PLEURAL CAVITY, PERCUTANEOUS APPROACH (12/17/18) EXTRACTION OF ILIAC BONE MARROW, PERC APPROACH, DIAGN (09/28/18) PHERESIS OF PLATELETS, MULTIPLE (11/29/18) PHERESIS OF PLATELETS, SINGLE (12/17/18) TRANSFUSE NONAUT PLATELETS IN PERIPH VEIN, PERC (12/17/18) TRANSFUSE NONAUT RED BLOOD CELLS IN PERIPH VEIN, PERC (12/17/18) Family History: States: Unknown Family Hx - Social History Hx Alcohol Use: No Hx Substance Use: No - Immunization History Hx Tetanus Toxoid Vaccination: No Hx Influenza Vaccination: No Hx Pneumococcal Vaccination: No Review Of Systems Constitutional: Negative for: Fever, Chills Cardiovascular: Negative for: Chest Pain, Palpitations Respiratory: Positive for: Cough, Shortness of Breath. Negative for: Sputum, Wheezing Gastrointestinal: Negative for: Nausea, Vomiting, Abdominal Pain Skin: Negative for: Rash Neurological: Negative for: Weakness, Numbness, Headache, Dizziness Physical Exam - Physical Exam Appears: Non-toxic, In Acute Distress, Other (dyspnic) Skin: Normal Color, Warm, Dry Head: Atraumatic, Normacephalic Eye(s): bilateral: Normal Inspection Neck: Normal ROM, Supple, Other (enlarged neck veins) Chest: Symmetrical Cardiovascular: Rhythm Regular (tachycardic) Respiratory: Rales (mostly left side), No Rhonchi, No Wheezing Gastrointestinal/Abdominal: Soft, No Tenderness, No Guarding, No Rebound Extremity: Normal ROM Neurological/Psych: Oriented x3, Normal Speech, Normal Cognition Gait: Steady ED Course And Treatment - Laboratory Results Result Diagrams: 12/29/18 06:30 ECG: Interpreted By Me, Viewed By Me ECG Rhythm: Sinus Tachycardia, L BBB ECG Interpretation: No Acute Changes, Abnormal Interpretation Of ECG: Sinus tachycardia with CLBBB. abnormal tracings Rate From EC O2 Sat by Pulse Oximetry: 93 Pulse Ox Interpretation: Abnormal (low Pulse ox.) - Radiology CXR: Interpreted by Me, Viewed By Me CXR Interpretation: Yes: Other (left lung density, infiltratra-Right lower lung field) Medical Decision Making Medical Decision Making: Plan: * Labs * EKG * CXR * Lasix 20 mg IVP * Blood culture * BIPAP Disposition - Disposition Disposition Time: 07:00 Condition: STABLE Forms: [facility] ([place]) - Clinical Impression Clinical Impression: Pleural effusion, left, Pneumonia - Scribe Statement The provider has reviewed the documentation as recorded by the Scribe Chuy Hester All medical record entries made by the Scribe were at my direction and personally dictated by me. I have reviewed the chart and agree that the record accurately reflects my personal performance of the history, physical exam, medical decision making, and the department course for this patient. I have also personally directed, reviewed, and agree with the discharge instructions and disposition. Physician Patient Turnover Patient Signed Over To: Darius Gray DO Handoff Comments: pending blood work for admission.
--- NOTE | 2018-12-29 06:06 | C.PDOC ---
Chief Complaint (Nursing): Shortness Of Breath Past Medical History - Medical History PMH: Anemia, COPD, HTN, Peripheral Edema, Pneumonia, Pneumothorax Denies: Chronic Kidney Disease - [facility] Procedures ASSISTANCE WITH RESPIRATORY VENTILATION, >96 HRS, CPAP (11/29/18) DRAINAGE OF L PLEURAL CAV WITH DRAIN DEV, PERC APPROACH (11/29/18) DRAINAGE OF LEFT PLEURAL CAVITY, PERCUTANEOUS APPROACH (12/17/18) EXTRACTION OF ILIAC BONE MARROW, PERC APPROACH, DIAGN (09/28/18) PHERESIS OF PLATELETS, MULTIPLE (11/29/18) PHERESIS OF PLATELETS, SINGLE (12/17/18) TRANSFUSE NONAUT PLATELETS IN PERIPH VEIN, PERC (12/17/18) TRANSFUSE NONAUT RED BLOOD CELLS IN PERIPH VEIN, PERC (12/17/18) Family History: States: Unknown Family Hx - Social History Hx Alcohol Use: No Hx Substance Use: No - Immunization History Hx Tetanus Toxoid Vaccination: No Hx Influenza Vaccination: No Hx Pneumococcal Vaccination: No Disposition - Disposition
[2018-12-29] MEDS ORDERED: Azithromycin 500 MG in Sodium Chloride 0.9% 250 ML IVPB STA (06:21)
[2018-12-29] MEDS ORDERED: cefTRIAXone IV 1 gm in Dextros 50 ML IVPB ONE (06:23)
[2018-12-29] MEDS ORDERED: Azithromycin 500mg/250ML NS 500 MG/250 ML BAG IVPB ONE (06:31)
[2018-12-29 06:34] LABS: HEMOGLOBIN 8.8 g/dL (12.0-18.0); LYMPH # 0.1 K/uL (1.0-4.3)
[2018-12-29 06:50] LABS: ALB/GLOB RATIO 0.8 (1.0-2.1); ALBUMIN 2.5 g/dL (3.5-5.0); ALT/SGPT 15 U/L (21-72); AST/SGOT 26 U/L (17-59); BLOOD UREA NITROGEN 22 mg/dL (9-20); CALCIUM 8.3 mg/dl (8.6-10.4); GFR NON-AFRICAN AMERICAN > 60
[2018-12-29 06:57] LABS: EOS % 2.9 % (0.0-4.0); LYMPH % 53.3 % (20.0-40.0); MEAN CORPUSCULAR HEMOGLOBIN 30.4 pg (27.0-31.0); MEAN CORPUSCULAR HGB CONC 33.7 g/dL (33.0-37.0); MEAN PLATELET VOLUME 8.6 fL (7.2-11.7); MONO # 0.1 K/uL (0.0-0.8); MONO % 40.9 % (0.0-10.0); NRBC % 0.8 % (0.0-2.0); RBC 2.9 Mil/uL (4.40-5.90); RED CELL DISTRIBUTION WIDTH 13.5 % (11.5-14.5)
[2018-12-29 07:02] LABS: B-TYPE NATRIURETIC PEPTIDE 8170 pg/mL (0-900)
[2018-12-29 07:05] LABS: WHITE BLOOD COUNT 0.2 K/uL (4.8-10.8)
[2018-12-29 07:07] LABS: NEUT % 2.9 % (50.0-75.0)
[2018-12-29 07:52] LABS: INR 1.4; PROTHROMBIN TIME 15.8 SECONDS (9.7-12.2)
--- NOTE | 2018-12-29 08:40 | RAD ---
Chest x-ray single frontal view HISTORY: Shortness of breath. COMPARISON: 12/17/2018 Findings: Persistent near complete opacification of the left hemithorax with dense masslike consolidative change within left upper to mid lung zone. Moderate loculated left pleural effusion. Focal consolidative opacifications seen within the right lung apex. Scattered nodular densities in the lung martines bilaterally. Heart size within normal limits. Degenerative changes in the spine and shoulders. Impression: Persistent near complete opacification of the left hemithorax with dense masslike consolidative change within left upper to mid lung zone. Moderate loculated left pleural effusion. Focal consolidative opacifications seen within the right lung apex. Scattered nodular densities in the lung martines bilaterally.
--- NOTE | 2018-12-29 10:15 | CT ---
Date of service: 12/29/2018 PROCEDURE: CT Chest with contrast (Pulmonary Angiogram) HISTORY: SOB r/o PE - h/o AML with pleural effusion COMPARISON: 12/09/2018. TECHNIQUE: Axial computed tomography images were obtained of the chest in the pulmonary arterial phase of enhancement. Coronal and sagittal reformatted images were created and reviewed. Intravenous contrast dose: Radiation dose: Total exam DLP = 276.1 mGy-cm. This CT exam was performed using one or more of the following dose reduction techniques: Automated exposure control, adjustment of the mA and/or kV according to patient size, and/or use of iterative reconstruction technique. FINDINGS: PULMONARY ARTERIES: There are no filling defects in the pulmonary arteries to suggest acute pulmonary embolism. AORTA: No acute findings. No thoracic aortic aneurysm. There are aortic atherosclerotic calcifications those are pretracheal lymph nodes present. LUNGS: There are large emphysematous bulla in both lung apices. There is severe centrilobular emphysema in the right upper lobe. There is dense consolidation with air bronchogram in the left upper and lower lobes. There are multiple scattered variable sized parenchymal and subpleural nodular lesions, the largest in the right middle lobe measures 1.7 x 1.3 cm. PLEURAL SPACES: Moderate right and small left pleural effusion. No pneumothorax. HEART: Mild cardiomegaly and small pericardial effusion. LYMPH NODES: There are stable mildly enlarged pretracheal lymph nodes measuring 1.3 cm in transverse diameter. BONES, CHEST WALL: There is diffuse bone demineralization and multilevel degenerative changes in the spine. No fracture or destructive lesion. A subcentimeter sclerotic lesion in the right inferior T11 vertebral body is statistically most compatible with a bone island. OTHER FINDINGS: None. IMPRESSION: No CTA evidence for acute pulmonary embolism. Dense consolidation with air bronchogram in the left upper and lower lobes. Moderate right and small left pleural effusions. Multiple variable-sized parenchymal and subpleural nodules in the right lung, the largest in the right middle lobe measures 1.7 x 1.3 cm. These are nonspecific and could be infectious, inflammatory or neoplastic in etiology. Short-term interval follow-up is advised. Enlarged precarinal mediastinal lymph nodes, the largest measures 1.3 cm in transverse diameter. Mild cardiomegaly and small pericardial effusion.
--- NOTE | 2018-12-29 11:56 | CP.PCM.HP ---
History of Present Illness - History of Present Illness History of Present Illness: History and physical for Dr. 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 Patient's daughter reportedly states she checked his O2 sat and found that it was in the low 80s. Patient received chemo last Thursday, and received 2 units PRBCs and 2 units platelets earlier this week prior to admission here. Daughter states patient has had decreased appetite since starting chemo. He is able to get to the bathroom with assistance. Patient denies headache, dizzines, chest pain, palpitations, shortnes of breath, nausea, vomiting, diarrhea, constipation, urinary symptoms, leg pain. PMD: Dr. Montoya Onc: Dr. Bobby Pulm: Dr. 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 absent: Chills, Fever - EENT Eyes: absent: Change in Vision, Loss of Vision Nose/Mouth/Throat: absent: Sore Throat - Cardiovascular Cardiovascular: Dyspnea. absent: Chest Pain, Leg Edema, Palpitations - Respiratory Respiratory: Cough - Gastrointestinal Gastrointestinal: absent: Abdominal Pain, Diarrhea, Nausea, Vomiting - Genitourinary Genitourinary: absent: Change in Urinary Stream, Dysuria - Musculoskeletal Musculoskeletal: absent: Back Pain, Stiffness, Tingling - Neurological Neurological: absent: Confusion, Dizziness, Numbness, Headaches, Paresthesias - Psychiatric Psychiatric: absent: Anxiety, Depression Past Patient History - Infectious Disease Hx of Infectious Diseases: None - Tetanus Immunizations Tetanus Immunization: Unknown - Past Medical History & Family History Past Medical History?: Yes - Past Social History Smoking Status: Former Smoker - CARDIAC Hx Hypertension: Yes Hx Peripheral Edema: Yes - PULMONARY Hx Chronic Obstructive Pulmonary Disease (COPD): Yes Hx Pneumonia: Yes - NEUROLOGICAL Hx Neurological Disorder: No - HEENT Hx HEENT Problems: Yes Hx Cataracts: Yes - RENAL Hx Chronic Kidney Disease: No - ENDOCRINE/METABOLIC Hx Endocrine Disorders: No - HEMATOLOGICAL/ONCOLOGICAL Hx Anemia: Yes - INTEGUMENTARY Hx Dermatological Problems: No - MUSCULOSKELETAL/RHEUMATOLOGICAL Hx Musculoskeletal Disorders: No Hx Falls: No - GASTROINTESTINAL Hx Gastrointestinal Disorders: Yes Hx Constipation: Yes - GENITOURINARY/GYNECOLOGICAL Hx Genitourinary Disorders: Yes Hx Prostate Problems: Yes (enlarge prostate) - PSYCHIATRIC Hx Substance Use: No - SURGICAL HISTORY Hx Surgeries: Yes Other/Comment: chest tube. - ANESTHESIA Hx Anesthesia: No Meds Allergies/Adverse Reactions: Allergies Allergy/AdvReac Type Severity Reaction Status Date / Time No Known Allergies Allergy Verified 12/29/18 06:08 Physical Exam - Constitutional Appears: Older Than Stated Age, Cachectic - Head Exam Head Exam: ATRAUMATIC, NORMOCEPHALIC - Eye Exam Eye Exam: EOMI, PERRL - ENT Exam ENT Exam: Mucous Membranes Dry Additional comments: Dried brown material on tongue - Neck Exam Neck exam: Positive for: Full Rom. Negative for: Tenderness - Respiratory Exam Respiratory Exam: Rales (at bases ), Rhonchi - Cardiovascular Exam Cardiovascular Exam: REGULAR RHYTHM, +S1, +S2 - GI/Abdominal Exam GI & Abdominal Exam: Normal Bowel Sounds, Soft. absent: Tenderness - Extremities Exam Extremities exam: Positive for: pedal pulses present. Negative for: calf tenderness - Back Exam Back exam: absent: CVA tenderness (L), CVA tenderness (R) - Neurological Exam Neurological exam: Alert, CN II-XII Intact, Oriented x3 - Psychiatric Exam Psychiatric exam: Normal Affect, Normal Mood - Skin Skin Exam: Dry, Intact, Warm Results - Vital Signs Recent Vital Signs: Last Vital Signs Temp 100.1 F H 12/29/18 06:01 Pulse 100 H 12/29/18 10:44 Resp 18 12/29/18 10:44 BP 115/43 L 12/29/18 10:44 Pulse Ox 96 12/29/18 10:44 - Labs Result Diagrams: 12/29/18 06:30 12/29/18 06:30 Labs: Laboratory Results - last 24 hr 12/29/18 12/29/18 12/29/18 06:30 06:30 06:30 WBC 0.2 L* RBC 2.90 L Hgb 8.8 L Hct 26.1 L MCV 90.0 MCH 30.4 MCHC 33.7 RDW 13.5 Plt Count 26 L* MPV 8.6 Neut % (Auto) 2.9 L Lymph % (Auto) 53.3 H [place] % (Auto) 40.9 H Eos % (Auto) 2.9 Baso % (Auto) 0.0 Neut # (Auto) 0.0 L Lymph # (Auto) 0.1 L [place] # (Auto) 0.1 Eos # (Auto) 0.0 Baso # (Auto) 0.0 Total Counted Cancelled Neutrophils % (Manual) Cancelled Band Neutrophils % Cancelled Lymphocytes % (Manual) Cancelled Reactive Lymphs % Cancelled Monocytes % (Manual) Cancelled Eosinophils % (Manual) Cancelled Basophils % (Manual) Cancelled Metamyelocytes % Cancelled Myelocytes % Cancelled Promyelocytes % Cancelled Blast Cells % Cancelled Plasma Cell % (Manual) Cancelled Nucleated RBC % Cancelled Differential Comment Hypersegmented Polys Cancelled Smudge Cells Cancelled Toxic Granulation Cancelled Dohle Bodies Cancelled [place] Rods Cancelled Platelet Estimate Cancelled Plt Clumps, EDTA Cancelled Large Platelets Cancelled Giant Platelets Cancelled RBC Morphology Cancelled Polychromasia Cancelled Hypochromasia (manual) Cancelled Poikilocytosis (manual Cancelled Basophilic Stippling Cancelled Anisocytosis (manual) Cancelled Microcytosis (manual) Cancelled Macrocytosis (manual) Cancelled Spherocytes Cancelled Sickle Cells Cancelled Target Cells Cancelled Tear Drop Cells Cancelled Ovalocytes Cancelled Stomatocytes Cancelled Helmet Cells Cancelled [place] Bodies Cancelled Terry Cells Cancelled Acanthocytes (Spur) Cancelled Rouleaux Cancelled Schistocytes Cancelled PT 15.8 H INR 1.4 APTT 23 D-Dimer, Quantitative 2156 H Sodium 132 Potassium 4.5 Chloride 99 Carbon Dioxide 31 H Anion Gap 8 L BUN 22 H Creatinine 0.6 L Est GFR ( Amer) > 60 Est GFR (Non-Af Amer) > 60 Random Glucose 98 Calcium 8.3 L Total Bilirubin 3.9 H AST 26 ALT 15 L Alkaline Phosphatase 72 Troponin I 0.0550 NT-Pro-B Natriuret Pep 8170 H Total Protein 5.6 L Albumin 2.5 L Globulin 3.1 Albumin/Globulin Ratio 0.8 L Influenza Typ A,B (EIA) Blood Type Antibody Screen 12/29/18 12/29/18 06:30 07:35 WBC RBC Hgb Hct MCV MCH MCHC RDW Plt Count MPV Neut % (Auto) Lymph % (Auto) [place] % (Auto) Eos % (Auto) Baso % (Auto) Neut # (Auto) Lymph # (Auto) [place] # (Auto) Eos # (Auto) Baso # (Auto) Total Counted Neutrophils % (Manual) Band Neutrophils % Lymphocytes % (Manual) Reactive Lymphs % Monocytes % (Manual) Eosinophils % (Manual) Basophils % (Manual) Metamyelocytes % Myelocytes % Promyelocytes % Blast Cells % Plasma Cell % (Manual) Nucleated RBC % Differential Comment Hypersegmented Polys Smudge Cells Toxic Granulation Dohle Bodies Naz[place]in Rods Platelet Estimate Plt Clumps, EDTA Large Platelets Giant Platelets RBC Morphology Polychromasia Hypochromasia (manual) Poikilocytosis (manual Basophilic Stippling Anisocytosis (manual) Microcytosis (manual) Macrocytosis (manual) Spherocytes Sickle Cells Target Cells Tear Drop Cells Ovalocytes Stomatocytes Helmet Cells [place] Bodies Terry Cells Acanthocytes (Spur) Rouleaux Schistocytes PT INR APTT D-Dimer, Quantitative Sodium Potassium Chloride Carbon Dioxide Anion Gap BUN Creatinine Est GFR ( Amer) Est GFR (Non-Af Amer) Random Glucose Calcium Total Bilirubin AST ALT Alkaline Phosphatase Troponin I NT-Pro-B Natriuret Pep Total Protein Albumin Globulin Albumin/Globulin Ratio Influenza Typ A,B (EIA) Negative for flu a/b Blood Type B POSITIVE Antibody Screen Negative Assessment & Plan - Assessment and Plan (Free Text) Assessment: 78 year old male with history of COPD, AML on chemo, BPH, HTN who presents for shortness of breath. Plan: AML, currently on chemo Oncologist Dr. Bobby consulted, help appreciated Received 3rd dose of chemo 12/24/18 White count 0.2 Hb/Hct 8.8/26.[address] Bobby, not necessary to transfuse at this time Neutropenic precautions. Left sided Infiltrates Right sided Pleural effusion Assistant [employer] Dr. Thurston consulted, help appreciated CXR: Persistent near complete opacification of the left hemithorax with dense masslike consolidative change within left upper to mid lung zone. Moderate loculated left pleural effusion. Focal consolidative opacifications seen within the right lung apex. Scattered nodular densities in the lung martines bilaterally. CT chest: No CTA evidence for acute pulmonary embolism.Dense consolidation with air bronchogram in the left upper and lower lobes. Moderate right and small left pleural effusions. Multiple variable-sized parenchymal and subpleural nodules in the right lung, the largest in the right middle lobe measures 1.7 x 1.3 cm. These are nonspecific and could be infectious, inflammatory or neoplastic in etiology. Short-term interval follow-up is advised. Enlarged precarinal mediastinal lymph nodes, the largest measures 1.3 cm in transverse diameter. Mild cardiomegaly and small pericardial effusion. Saturating at 96% on 3L NC. Follow up blood cultures and sputum culture. Received Ceftriaxone, Azithromycin in ED. Vancomycin 1g IV Q12 started 12/29/18 Merrem 1g IV started 12/29/18 Follow up legionella, mycoplasma, strep pneumonia D-dimer 2156 Negative for flu Lasix 20mg PO daily History of BPH Flomax 0.4mg PO BID History of HTN Lisinopril 5mg PO daily Hold for low blood pressure Prophylaxis: Protonix SCDs PT/OT Case discussed with Dr. Lindsay Rodriguez, PGY1
[2018-12-29] MEDS ORDERED: Meropenem 1 GM in Sodium Chloride 0.9% 100 ML IVPB ONE (14:30)
[2018-12-29] MEDS: Vancomycin 1 gm/NS 200 ml 1 GM/200 ML BAG IVPB SCH (14:31)
--- NOTE | 2018-12-29 16:17 | CP.PCM.CON ---
History of Present Illness - History of Present Illness History of Present Illness: Reason for consultation: Shortness of breath 78-year-old male with history of recurrent pleural effusion and pneumothorax, AML on chemotherapy, hypertension who presented with shortness of breath, cough and hypoxemia. CAT scan of the chest consistent with diffuse left lung infiltrate and small pleural effusion. Patient received chemo last Thursday and received 2 unit packed RBCs and 2 units platelets. 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 Family hx: no history of cancer Review of Systems - Review of Systems All systems: reviewed and no additional remarkable complaints except (Shortness of breath) Past Patient History - Infectious Disease Hx of Infectious Diseases: None - Tetanus Immunizations Tetanus Immunization: Unknown - Past Medical History & Family History Past Medical History?: Yes - Past Social History Smoking Status: Former Smoker - CARDIAC Hx Hypertension: Yes Hx Peripheral Edema: Yes - PULMONARY Hx Chronic Obstructive Pulmonary Disease (COPD): Yes Hx Pneumonia: Yes - NEUROLOGICAL Hx Neurological Disorder: No - HEENT Hx HEENT Problems: Yes Hx Cataracts: Yes - RENAL Hx Chronic Kidney Disease: No - ENDOCRINE/METABOLIC Hx Endocrine Disorders: No - HEMATOLOGICAL/ONCOLOGICAL Hx Anemia: Yes - INTEGUMENTARY Hx Dermatological Problems: No - MUSCULOSKELETAL/RHEUMATOLOGICAL Hx Musculoskeletal Disorders: No Hx Falls: No - GASTROINTESTINAL Hx Gastrointestinal Disorders: Yes Hx Constipation: Yes - GENITOURINARY/GYNECOLOGICAL Hx Genitourinary Disorders: Yes Hx Prostate Problems: Yes (enlarge prostate) - PSYCHIATRIC Hx Substance Use: No - SURGICAL HISTORY Hx Surgeries: Yes Other/Comment: chest tube. - ANESTHESIA Hx Anesthesia: No Meds Allergies/Adverse Reactions: Allergies Allergy/AdvReac Type Severity Reaction Status Date / Time No Known Allergies Allergy Verified 12/29/18 06:08 - Medications Medications: Current Medications Docusate Sodium (Colace) 100 mg PO BID ELDA Furosemide (Lasix) 20 mg PO DAILY ELDA Vancomycin/Sodium Chloride (Vancomycin 1 Gm/Ns 200 Ml) 1 gm in 200 mls @ 133 mls/hr IVPB Q12H ELDA; Protocol Stop: 01/03/19 15:31 Last Admin: 12/29/18 14:31 Dose: 133 mls/hr Influenza Virus Vaccine (Flucelvax Quad [id number] Syr) 60 mcg IM .ONCE ONE Stop: 01/01/19 10:01 Lisinopril (Zestril) 5 mg PO DAILY [facility] Pantoprazole Sodium (Protonix Ec Tab) 40 mg PO DAILY [facility] Pneumococcal Polyvalent Vaccine (Pneumovax 23 Vaccine) 0.5 ml IM .ONCE ONE Stop: 01/01/19 10:01 Tamsulosin HCl (Flomax) 0.4 mg PO BID [facility] Physical Exam - Head Exam Head Exam: ATRAUMATIC, NORMOCEPHALIC - ENT Exam ENT Exam: Mucous Membranes Moist - Respiratory Exam Respiratory Exam: Decreased Breath Sounds - Cardiovascular Exam Cardiovascular Exam: REGULAR RHYTHM - GI/Abdominal Exam GI & Abdominal Exam: Normal Bowel Sounds - Extremities Exam Extremities exam: Positive for: normal inspection - Neurological Exam Neurological exam: Alert Results - Vital Signs Recent Vital Signs: Last Vital Signs Temp 100.1 F H 12/29/18 06:01 Pulse 100 H 12/29/18 10:44 Resp 18 12/29/18 10:44 BP 115/43 L 12/29/18 10:44 Pulse Ox 96 12/29/18 10:44 - Labs Result Diagrams: 12/29/18 06:30 12/29/18 06:30 Labs: Laboratory Results - last 24 hr 12/29/18 12/29/18 12/29/18 06:30 06:30 06:30 WBC 0.2 L* RBC 2.90 L Hgb 8.8 L Hct 26.1 L MCV 90.0 MCH 30.4 MCHC 33.7 RDW 13.5 Plt Count 26 L* MPV 8.6 Neut % (Auto) 2.9 L Lymph % (Auto) 53.3 H [place] % (Auto) 40.9 H Eos % (Auto) 2.9 Baso % (Auto) 0.0 Neut # (Auto) 0.0 L Lymph # (Auto) 0.1 L [place] # (Auto) 0.1 Eos # (Auto) 0.0 Baso # (Auto) 0.0 Total Counted Cancelled Neutrophils % (Manual) Cancelled Band Neutrophils % Cancelled Lymphocytes % (Manual) Cancelled Reactive Lymphs % Cancelled Monocytes % (Manual) Cancelled Eosinophils % (Manual) Cancelled Basophils % (Manual) Cancelled Metamyelocytes % Cancelled Myelocytes % Cancelled Promyelocytes % Cancelled Blast Cells % Cancelled Plasma Cell % (Manual) Cancelled Nucleated RBC % Cancelled Differential Comment Hypersegmented Polys Cancelled Smudge Cells Cancelled Toxic Granulation Cancelled Dohle Bodies Cancelled Nazanin Rods Cancelled Platelet Estimate Cancelled Plt Clumps, EDTA Cancelled Large Platelets Cancelled Giant Platelets Cancelled RBC Morphology Cancelled Polychromasia Cancelled Hypochromasia (manual) Cancelled Poikilocytosis (manual Cancelled Basophilic Stippling Cancelled Anisocytosis (manual) Cancelled Microcytosis (manual) Cancelled Macrocytosis (manual) Cancelled Spherocytes Cancelled Sickle Cells Cancelled Target Cells Cancelled Tear Drop Cells Cancelled Ovalocytes Cancelled Stomatocytes Cancelled Helmet Cells Cancelled [place] Bodies Cancelled [place] Cells Cancelled Acanthocytes (Spur) Cancelled Rouleaux Cancelled Schistocytes Cancelled PT 15.8 H INR 1.4 APTT 23 D-Dimer, Quantitative 2156 H Sodium 132 Potassium 4.5 Chloride 99 Carbon Dioxide 31 H Anion Gap 8 L BUN 22 H Creatinine 0.6 L Est GFR ( Amer) > 60 Est GFR (Non-Af Amer) > 60 Random Glucose 98 Calcium 8.3 L Total Bilirubin 3.9 H AST 26 ALT 15 L Alkaline Phosphatase 72 Troponin I 0.0550 NT-Pro-B Natriuret Pep 8170 H Total Protein 5.6 L Albumin 2.5 L Globulin 3.1 Albumin/Globulin Ratio 0.8 L Influenza Typ A,B (EIA) Blood Type Antibody Screen 12/29/18 12/29/18 06:30 07:35 WBC RBC Hgb Hct MCV MCH MCHC RDW Plt Count MPV Neut % (Auto) Lymph % (Auto) [place] % (Auto) Eos % (Auto) Baso % (Auto) Neut # (Auto) Lymph # (Auto) [place] # (Auto) Eos # (Auto) Baso # (Auto) Total Counted Neutrophils % (Manual) Band Neutrophils % Lymphocytes % (Manual) Reactive Lymphs % Monocytes % (Manual) Eosinophils % (Manual) Basophils % (Manual) Metamyelocytes % Myelocytes % Promyelocytes % Blast Cells % Plasma Cell % (Manual) Nucleated RBC % Differential Comment Hypersegmented Polys Smudge Cells Toxic Granulation Dohle Bodies Nazanin Rods Platelet Estimate Plt Clumps, EDTA Large Platelets Giant Platelets RBC Morphology Polychromasia Hypochromasia (manual) Poikilocytosis (manual Basophilic Stippling Anisocytosis (manual) Microcytosis (manual) Macrocytosis (manual) Spherocytes Sickle Cells Target Cells Tear Drop Cells Ovalocytes Stomatocytes Helmet Cells [place] Bodies Terry Cells Acanthocytes (Spur) Rouleaux Schistocytes PT INR APTT D-Dimer, Quantitative Sodium Potassium Chloride Carbon Dioxide Anion Gap BUN Creatinine Est GFR ( Amer) Est GFR (Non-Af Amer) Random Glucose Calcium Total Bilirubin AST ALT Alkaline Phosphatase Troponin I NT-Pro-B Natriuret Pep Total Protein Albumin Globulin Albumin/Globulin Ratio Influenza Typ A,B (EIA) Negative for flu a/b Blood Type B POSITIVE Antibody Screen Negative
[2018-12-30] MEDS: Vancomycin 1 gm/NS 200 ml 1 GM/200 ML BAG IVPB SCH ×2 (03:28→15:35)
[2018-12-30 06:34] LABS: EOS % 1.5 % (0.0-4.0); LYMPH # 0.1 K/uL (1.0-4.3); LYMPH % 66.8 % (20.0-40.0); MEAN CELL VOLUME 90.1 fL (80.0-94.0); MEAN CORPUSCULAR HEMOGLOBIN 29.9 pg (27.0-31.0); MEAN CORPUSCULAR HGB CONC 33.2 g/dL (33.0-37.0); MEAN PLATELET VOLUME 8.2 fL (7.2-11.7); MONO % 29.1 % (0.0-10.0); NEUT % 2.6 % (50.0-75.0); NRBC % 0.9 % (0.0-2.0); RBC 2.27 Mil/uL (4.40-5.90); RED CELL DISTRIBUTION WIDTH 13.3 % (11.5-14.5)
[2018-12-30 06:43] LABS: WHITE BLOOD COUNT 0.1 K/uL (4.8-10.8)
[2018-12-30 06:44] LABS: HEMOGLOBIN 6.8 g/dL (12.0-18.0)
[2018-12-30 06:51] LABS: ALB/GLOB RATIO 0.8 (1.0-2.1); ALBUMIN 1.9 g/dL (3.5-5.0); ALT/SGPT 20 U/L (21-72); AST/SGOT 13 U/L (17-59); BLOOD UREA NITROGEN 25 mg/dL (9-20); GFR NON-AFRICAN AMERICAN > 60
--- NOTE | 2018-12-30 06:58 | CP.PCM.PN ---
<Keysha Rodriguez - Last Filed: 12/30/18 15:59> Subjective - Date & Time of Evaluation Date of Evaluation: 12/30/18 Time of Evaluation: 06:58 - Subjective Subjective: Progress note for Dr. Montoya's service Patient seen and examined at bedside. He states that he is feeling less short of breath, and is comfortable on O2 via nasal cannula. Daughter present at bedside. He denies any pain currently, including headache, chest pain, abdominal pain, leg pain. He denies any bleeding in urine or stool. Objective - Vital Signs/Intake and Output Vital Signs (last 24 hours): Temp Pulse Resp BP Pulse Ox 100.2 F H 103 H 20 110/55 L 95 12/30/18 03:20 12/30/18 00:12 12/30/18 00:12 12/30/18 00:12 12/30/18 00:12 Intake and Output: 12/29/18 12/30/18 18:59 06:59 Intake Total 500 Balance 500 - Medications Medications: Current Medications Acetaminophen (Tylenol 325mg Tab) 650 mg PO Q6 PRN PRN Reason: Pain, moderate (4-7) Docusate Sodium (Colace) 100 mg PO BID [facility] Last Admin: 12/29/18 17:26 Dose: 100 mg Furosemide (Lasix) 20 mg PO DAILY [facility] Vancomycin/Sodium Chloride (Vancomycin 1 Gm/Ns 200 Ml) 1 gm in 200 mls @ 133 mls/hr IVPB Q12H [facility]; Protocol Stop: 01/03/19 15:31 Last Admin: 12/30/18 03:28 Dose: 133 mls/hr Influenza Virus Vaccine (Flucelvax Quad 9404-6422 Syr) 60 mcg IM .ONCE ONE Stop: 01/01/19 10:01 Lisinopril (Zestril) 5 mg PO DAILY [facility] Pantoprazole Sodium (Protonix Ec Tab) 40 mg PO DAILY [facility] Pneumococcal Polyvalent Vaccine (Pneumovax 23 Vaccine) 0.5 ml IM .ONCE ONE Stop: 01/01/19 10:01 Tamsulosin HCl (Flomax) 0.4 mg PO BID [facility] Last Admin: 12/29/18 17:25 Dose: 0.4 mg - Labs Labs: 12/30/18 06:22 12/30/18 06:22 PT 15.8 SECONDS (9.7-12.2) H 12/29/18 06:30 INR 1.4 12/29/18 06:30 APTT 23 SECONDS (21-34) 12/29/18 06:30 - Constitutional Appears: Cachectic, Chronically Ill - Head Exam Head Exam: ATRAUMATIC, NORMOCEPHALIC - Eye Exam Eye Exam: EOMI, PERRL - ENT Exam ENT Exam: Mucous Membranes Dry Additional comments: Dried brown food residue on tongue - Neck Exam Neck Exam: Full ROM. absent: Tenderness - Respiratory Exam Respiratory Exam: Rales (at bases ). absent: Respiratory Distress - Cardiovascular Exam Cardiovascular Exam: REGULAR RHYTHM, +S1, +S2 - GI/Abdominal Exam GI & Abdominal Exam: Soft, Normal Bowel Sounds. absent: Distended, Firm, Guarding, Rigid, Tenderness - Extremities Exam Extremities Exam: Normal Capillary Refill. 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 Plan: AML, currently on chemo Oncologist Dr. Bobby consulted, help appreciated Received 3rd dose of chemo 12/24/18 White count 0.1 Hb/Hct 6.8/20.5 Platelets 9, down from 26 2 units PRBCs and 2 units platelets transfusion ordered - 12/30/18 Neutropenic precautions. Zofran 4mg Q6 PRN Left sided Infiltrates Right sided Pleural effusion Cough Back Closer Dr. Thurston consulted, help appreciated CXR: Persistent near complete opacification of the left hemithorax with dense masslike consolidative change within left upper to mid lung zone. Moderate loculated left pleural effusion. Focal consolidative opacifications seen within the right lung apex. Scattered nodular densities in the lung martines bilaterally. CT chest: No CTA evidence for acute pulmonary embolism.Dense consolidation with air bronchogram in the left upper and lower lobes. Moderate right and small left pleural effusions. Multiple variable-sized parenchymal and subpleural nodules in the right lung, the largest in the right middle lobe measures 1.7 x 1.3 cm. These are nonspecific and could be infectious, inflammatory or neoplastic in etiology. Short-term interval follow-up is advised. Enlarged precarinal mediastinal lymph nodes, the largest measures 1.3 cm in transverse diameter. Mild cardiomegaly and small pericardial effusion. Saturating at 96% on 3L NC. Follow up blood cultures and sputum culture. Received Ceftriaxone, Azithromycin in ED. ID Dr. Ferrari consulted, help appreciated Vancomycin 1g IV Q12 started 12/29/18 Merrem 1g IV started 12/29/18, continue with Merrem 500mg Q8 Follow up legionella, mycoplasma, strep pneumonia D-dimer 2156 Negative for flu Lasix 20mg PO daily Robitussin Scopolamine patch History of BPH Flomax 0.4mg PO BID History of HTN Lisinopril 5mg PO daily Hold for low blood pressure Prophylaxis: Protonix SCDs PT/OT Case discussed with Dr. Lindsay Rodriguez, PGY1 <Andrzej Montoya Jr. - Last Filed: 01/08/19 13:58> Objective - Vital Signs/Intake and Output Vital Signs (last 24 hours): Temp Pulse Resp BP Pulse Ox 98.6 F 99 H 20 107/68 95 01/08/19 08:28 01/08/19 08:28 01/08/19 08:28 01/08/19 09:24 01/08/19 08:28 Intake and Output: 01/08/19 01/08/19 06:59 18:59 Intake Total 1970 Output Total 241 Balance 1729 - Medications Medications: Current Medications Acetaminophen (Tylenol 325mg Tab) 650 mg PO Q6 PRN PRN Reason: Pain, moderate (4-7) Last Admin: 01/04/19 21:04 Dose: 650 mg Acetaminophen (Tylenol 325mg Tab) 650 mg PO ONCE PRN PRN Reason: pre med Last Admin: 01/03/19 14:39 Dose: 650 mg Diphenhydramine HCl (Benadryl) 25 mg IVP ONCE PRN PRN Reason: PRIOR TO TRANSFUSION Last Admin: 01/02/19 13:02 Dose: 25 mg Diphenhydramine HCl (Benadryl) 25 mg PO ONCE PRN PRN Reason: pre med Last Admin: 01/03/19 14:39 Dose: 25 mg Docusate Sodium (Colace) 100 mg PO BID [facility] Last Admin: 01/08/19 09:30 Dose: Not Given Furosemide (Lasix) 20 mg PO DAILY [facility] Last Admin: 01/08/19 09:24 Dose: 20 mg Furosemide (Lasix) 20 mg IVP ONCE PRN PRN Reason: post transfusion Last Admin: 01/03/19 19:15 Dose: 20 mg Guaifenesin (Mucinex La) 600 mg PO BID [facility] Last Admin: 01/08/19 09:24 Dose: 600 mg Guaifenesin (Robitussin) 200 mg PO Q4H PRN PRN Reason: Cough and congestion Meropenem 1 gm/ Sodium (Chloride) 100 mls @ 100 mls/hr IVPB Q8H [facility]; Protocol Last Admin: 01/08/19 08:24 Dose: 100 mls/hr Micafungin Sodium 100 mg/ (Sodium Chloride) 100 mls @ 100 mls/hr IV Q24H [facility]; Protocol Last Admin: 01/08/19 00:05 Dose: 100 mls/hr Vancomycin HCl 1 gm/ Sodium (Chloride) 250 mls @ 166.7 mls/hr IVPB Q24H [facility]; Protocol Last Admin: 01/08/19 09:23 Dose: 166.7 mls/hr Dextrose/Sodium Chloride (Dextrose 5%/0.45% Ns 1000 Ml) 1,000 mls @ 100 mls/hr IV .Q10H [facility] Last Admin: 01/08/19 13:08 Dose: Not Given Lisinopril (Zestril) 5 mg PO DAILY [facility] Last Admin: 01/08/19 09:25 Dose: 5 mg Morphine Sulfate (Morphine) 1 mg IV Q4H PRN PRN Reason: Pain, severe (8-10) Ondansetron HCl (Zofran Inj) 4 mg IVP Q6H PRN PRN Reason: Nausea/Vomiting Pantoprazole Sodium (Protonix Ec Tab) 40 mg PO DAILY [facility] Last Admin: 01/08/19 09:25 Dose: 40 mg Saliva Substitute (First Magic Mouthwash) 5 ml PO Q6 [facility] Last Admin: 01/08/19 12:30 Dose: 5 ml Scopolamine (Transderm-Scop) 1 patch TD Q3D [facility] Last Admin: 01/08/19 10:23 Dose: 1 patch Tamsulosin HCl (Flomax) 0.4 mg PO BID [facility] Last Admin: 01/08/19 09:24 Dose: 0.4 mg - Labs Labs: 01/08/19 07:20 01/08/19 07:20 PT 15.8 SECONDS (9.7-12.2) H 12/29/18 06:30 INR 1.4 12/29/18 06:30 APTT 23 SECONDS (21-34) 12/29/18 06:30 Attending/Attestation - Attestation I have personally seen and examined this patient.: Yes I have fully participated in the care of the patient.: Yes I have reviewed all pertinent clinical information, including history, physical exam and plan: Yes Notes (Text): 01/08/19 13:58 Reviewed resident note findings and plan of care. Agree with plan of care and findings.
[2018-12-30] MEDS ORDERED: DiphenhydrAMINE 50 mg/ml Inj IVP ONE (08:30)
[2018-12-30] MEDS: Pantoprazole 40 mg EC Tab PO SCH (09:27)
[2018-12-30] MEDS ORDERED: Azithromycin 500 MG in Sodium Chloride 0.9% 250 ML IVPB SCH (10:00)
[2018-12-30] MEDS: Meropenem 500 MG in Sodium Chloride 0.9% 100 ML IVPB SCH ×2 (11:27→17:42)
[2018-12-30] MEDS ORDERED: guaiFENesin 100 mg/5 ml Syrup UD PO PRN (12:01)
[2018-12-30] MEDS: Mag&Al/Simet/Diphen/Lido 237 ML KIT PO SCH ×2 (12:20→17:43)
--- NOTE | 2018-12-30 17:29 | CP.PCM.PN ---
Subjective - Date & Time of Evaluation Date of Evaluation: 12/30/18 Time of Evaluation: 12:00 - Subjective Subjective: Patient seen and examined Still complaining of cough and shortness of breath Very weak and frail Afebrile Awake and responsive Objective - Vital Signs/Intake and Output Vital Signs (last 24 hours): Temp Pulse Resp BP Pulse Ox 97.8 F 90 20 108/59 L 100 12/30/18 17:04 12/30/18 16:59 12/30/18 16:59 12/30/18 16:59 12/30/18 16:02 Intake and Output: 12/30/18 12/30/18 06:59 18:59 Intake Total 900 937 Output Total 400 Balance 500 937 - Medications Medications: Current Medications Acetaminophen (Tylenol 325mg Tab) 650 mg PO Q6 PRN PRN Reason: Pain, moderate (4-7) Last Admin: 12/30/18 17:04 Dose: 650 mg Diphenhydramine HCl (Benadryl) 25 mg IVP ONCE PRN PRN Reason: PRIOR TO TRANSFUSION Docusate Sodium (Colace) 100 mg PO BID [facility] Last Admin: 12/30/18 09:27 Dose: 100 mg Furosemide (Lasix) 20 mg PO DAILY [facility] Last Admin: 12/30/18 09:25 Dose: 20 mg Guaifenesin (Robitussin) 100 mg PO Q4H PRN PRN Reason: Cough Vancomycin/Sodium Chloride (Vancomycin 1 Gm/Ns 200 Ml) 1 gm in 200 mls @ 133 mls/hr IVPB Q12H [facility]; Protocol Stop: 01/03/19 15:31 Last Admin: 12/30/18 03:28 Dose: 133 mls/hr Meropenem 500 mg/ Sodium (Chloride) 100 mls @ 100 mls/hr IVPB Q8H [facility]; Protocol Last Admin: 12/30/18 11:27 Dose: Not Given Influenza Virus Vaccine (Flucelvax Quad [id number] Syr) 60 mcg IM .ONCE ONE Stop: 01/01/19 10:01 Lisinopril (Zestril) 5 mg PO DAILY [facility] Last Admin: 12/30/18 09:26 Dose: Not Given Ondansetron HCl (Zofran Inj) 4 mg IVP Q6H PRN PRN Reason: Nausea/Vomiting Pantoprazole Sodium (Protonix Ec Tab) 40 mg PO DAILY [facility] Last Admin: 12/30/18 09:27 Dose: 40 mg Pneumococcal Polyvalent Vaccine (Pneumovax 23 Vaccine) 0.5 ml IM .ONCE ONE Stop: 01/01/19 10:01 Saliva Substitute (First Magic Mouthwash) 5 ml PO Q6 [facility] Last Admin: 12/30/18 12:20 Dose: Not Given Scopolamine (Transderm-Scop) 1 patch TD Q3D [facility] Last Admin: 12/30/18 15:09 Dose: 1 patch Tamsulosin HCl (Flomax) 0.4 mg PO BID [facility] Last Admin: 12/30/18 09:28 Dose: 0.4 mg - Labs Labs: 12/30/18 06:22 12/30/18 06:22 PT 15.8 SECONDS (9.7-12.2) H 12/29/18 06:30 INR 1.4 12/29/18 06:30 APTT 23 SECONDS (21-34) 12/29/18 06:30 - Head Exam Head Exam: ATRAUMATIC, NORMOCEPHALIC - ENT Exam ENT Exam: Mucous Membranes Moist - Neck Exam Neck Exam: Normal Inspection - Respiratory Exam Respiratory Exam: Decreased Breath Sounds - Cardiovascular Exam Cardiovascular Exam: REGULAR RHYTHM Assessment and Plan (1) Pneumonia Assessment & Plan: Left lung pneumonia being treated as hospital-acquired IV antibiotics including Merrem and vancomycin Legionella and mycoplasma titers Transfuse packed RBCs Status: Acute (2) Pleural effusion, left Status: Acute
--- NOTE | 2018-12-30 18:11 | CARD ---
APPROVED REPORT Date of service: 12/29/2018 EKG Measurement Heart [id number] VT [id number] [id number] <Conclusion> Sinus tachycardia with premature supraventricular complexes Left axis deviation Left bundle branch block Abnormal ECG
--- NOTE | 2018-12-30 19:21 | CP.PCM.CON ---
History of Present Illness - History of Present Illness History of Present Illness: 78 year old male presents for shortness of breath and cough productive of yellow nonbloody sputum. Patient received chemo last Thursday, and received 2 units PRBCs and 2 units platelets earlier this week prior to admission here. 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 Family hx: no history of cancer Present on Admission - Present on Admission Any Indicators Present on Admission: No Review of Systems - Constitutional Constitutional: Fatigue. absent: Chills, Fever - EENT Eyes: absent: Change in Vision, Loss of Vision Nose/Mouth/Throat: absent: Sore Throat - Cardiovascular Cardiovascular: Dyspnea. absent: Chest Pain, Leg Edema, Palpitations - Respiratory Respiratory: Cough - Gastrointestinal Gastrointestinal: absent: Abdominal Pain, Diarrhea, Nausea, Vomiting - Genitourinary Genitourinary: absent: Change in Urinary Stream, Dysuria - Musculoskeletal Musculoskeletal: absent: Back Pain, Stiffness, Tingling - Neurological Neurological: absent: Confusion, Dizziness, Numbness, Headaches, Paresthesias - Psychiatric Psychiatric: absent: Anxiety, Depression Past Patient History - Infectious Disease Hx of Infectious Diseases: None - Tetanus Immunizations Tetanus Immunization: Unknown - Past Medical History & Family History Past Medical History?: Yes - Past Social History Smoking Status: Former Smoker - CARDIAC Hx Hypertension: Yes Hx Peripheral Edema: Yes - PULMONARY Hx Chronic Obstructive Pulmonary Disease (COPD): Yes Hx Pneumonia: Yes - NEUROLOGICAL Hx Neurological Disorder: No - HEENT Hx HEENT Problems: Yes Hx Cataracts: Yes - RENAL Hx Chronic Kidney Disease: No - ENDOCRINE/METABOLIC Hx Endocrine Disorders: No - HEMATOLOGICAL/ONCOLOGICAL Hx Anemia: Yes - INTEGUMENTARY Hx Dermatological Problems: No - MUSCULOSKELETAL/RHEUMATOLOGICAL Hx Musculoskeletal Disorders: No Hx Falls: No - GASTROINTESTINAL Hx Gastrointestinal Disorders: Yes Hx Constipation: Yes - GENITOURINARY/GYNECOLOGICAL Hx Genitourinary Disorders: Yes Hx Prostate Problems: Yes (enlarge prostate) - PSYCHIATRIC Hx Substance Use: No - SURGICAL HISTORY Hx Surgeries: Yes Other/Comment: chest tube. - ANESTHESIA Hx Anesthesia: No Meds Allergies/Adverse Reactions: Allergies Allergy/AdvReac Type Severity Reaction Status Date / Time No Known Allergies Allergy Verified 02/20/19 06:08 - Medications Medications: Current Medications Acetaminophen (Tylenol 325mg Tab) 650 mg PO Q6 PRN PRN Reason: Pain, moderate (4-7) Last Admin: 12/30/18 17:04 Dose: 650 mg Diphenhydramine HCl (Benadryl) 25 mg IVP ONCE PRN PRN Reason: PRIOR TO TRANSFUSION Docusate Sodium (Colace) 100 mg PO BID [facility] Last Admin: 12/30/18 17:40 Dose: 100 mg Furosemide (Lasix) 20 mg PO DAILY [facility] Last Admin: 12/30/18 09:25 Dose: 20 mg Guaifenesin (Robitussin) 100 mg PO Q4H PRN PRN Reason: Cough Vancomycin/Sodium Chloride (Vancomycin 1 Gm/Ns 200 Ml) 1 gm in 200 mls @ 133 mls/hr IVPB Q12H [facility]; Protocol Stop: 01/03/19 15:31 Last Admin: 12/30/18 03:28 Dose: 133 mls/hr Meropenem 500 mg/ Sodium (Chloride) 100 mls @ 100 mls/hr IVPB Q8H [facility]; Protocol Last Admin: 12/30/18 17:42 Dose: 100 mls/hr Influenza Virus Vaccine (Flucelvax Quad [id number] Syr) 60 mcg IM .ONCE ONE Stop: 01/01/19 10:01 Lisinopril (Zestril) 5 mg PO DAILY [facility] Last Admin: 12/30/18 09:26 Dose: Not Given Ondansetron HCl (Zofran Inj) 4 mg IVP Q6H PRN PRN Reason: Nausea/Vomiting Pantoprazole Sodium (Protonix Ec Tab) 40 mg PO DAILY [facility] Last Admin: 12/30/18 09:27 Dose: 40 mg Pneumococcal Polyvalent Vaccine (Pneumovax 23 Vaccine) 0.5 ml IM .ONCE ONE Stop: 01/01/19 10:01 Saliva Substitute (First Magic Mouthwash) 5 ml PO Q6 [facility] Last Admin: 12/30/18 17:43 Dose: 5 ml Scopolamine (Transderm-Scop) 1 patch TD Q3D [facility] Last Admin: 12/30/18 15:09 Dose: 1 patch Tamsulosin HCl (Flomax) 0.4 mg PO BID [facility] Last Admin: 12/30/18 17:40 Dose: 0.4 mg Physical Exam - Constitutional Appears: No Acute Distress, Cachectic, Chronically Ill - Head Exam Head Exam: ATRAUMATIC, NORMOCEPHALIC - Eye Exam Eye Exam: PERRL. absent: Scleral icterus - ENT Exam ENT Exam: Mucous Membranes Dry, Normal External Ear Exam - Neck Exam Neck exam: Negative for: Lymphadenopathy - Respiratory Exam Respiratory Exam: Decreased Breath Sounds, Prolonged Expiratory Phase, Rhonchi - Cardiovascular Exam Cardiovascular Exam: Tachycardia, REGULAR RHYTHM, +S1, +S2 - GI/Abdominal Exam GI & Abdominal Exam: Diminished Bowel Sounds, Soft. absent: Tenderness - Rectal Exam Rectal Exam: Deferred - Exam Exam: NORMAL INSPECTION - Extremities Exam Extremities exam: Negative for: pedal edema - Back Exam Back exam: absent: CVA tenderness (L), CVA tenderness (R) - Neurological Exam Neurological exam: Alert, CN II-XII Intact, Oriented x3, Reflexes Normal - Psychiatric Exam Psychiatric exam: Depressed - Skin Skin Exam: Dry, Intact Results - Vital Signs Recent Vital Signs: Last Vital Signs Temp 98.6 F 12/30/18 18:28 Pulse 92 H 12/30/18 18:28 Resp 18 12/30/18 18:28 BP 109/61 12/30/18 18:28 Pulse Ox 100 12/30/18 16:02 - Labs Result Diagrams: 12/30/18 06:22 12/30/18 06:22 Labs: Laboratory Results - last 24 hr 12/29/18 12/30/18 12/30/18 06:30 06:22 06:22 WBC 0.1 L* RBC 2.27 L Hgb 6.8 L D Hct 20.5 L MCV 90.1 MCH 29.9 MCHC 33.2 RDW 13.3 Plt Count 9 L* D MPV 8.2 Neut % (Auto) 2.6 L Lymph % (Auto) 66.8 H Dawson % (Auto) 29.1 H Eos % (Auto) 1.5 Baso % (Auto) 0.0 Neut # (Auto) 0.0 L Lymph # (Auto) 0.1 L Dawson # (Auto) 0.0 Eos # (Auto) 0.0 Baso # (Auto) 0.0 Total Counted Cancelled Neutrophils % (Manual) Cancelled Band Neutrophils % Cancelled Lymphocytes % (Manual) Cancelled Reactive Lymphs % Cancelled Monocytes % (Manual) Cancelled Eosinophils % (Manual) Cancelled Basophils % (Manual) Cancelled Metamyelocytes % Cancelled Myelocytes % Cancelled Promyelocytes % Cancelled Blast Cells % Cancelled Plasma Cell % (Manual) Cancelled Nucleated RBC % Cancelled Hypersegmented Polys Cancelled Smudge Cells Cancelled Toxic Granulation Cancelled Dohle Bodies Cancelled Nazanin Rods Cancelled Platelet Estimate Cancelled Plt Clumps, EDTA Cancelled Large Platelets Cancelled Giant Platelets Cancelled RBC Morphology Cancelled Polychromasia Cancelled Hypochromasia (manual) Cancelled Poikilocytosis (manual Cancelled Basophilic Stippling Cancelled Anisocytosis (manual) Cancelled Microcytosis (manual) Cancelled Macrocytosis (manual) Cancelled Spherocytes Cancelled Sickle Cells Cancelled Target Cells Cancelled Tear Drop Cells Cancelled Ovalocytes Cancelled Stomatocytes Cancelled Helmet Cells Cancelled [place]und[place] Bodies Cancelled [place] Cells Cancelled Acanthocytes (Spur) Cancelled Rouleaux Cancelled Schistocytes Cancelled Sodium 133 Potassium 3.7 Chloride 101 Carbon Dioxide 29 Anion Gap 8 L BUN 25 H Creatinine 0.6 L Est GFR ( Amer) > 60 Est GFR (Non-Af Amer) > 60 Random Glucose 94 Calcium 8.0 L Phosphorus 2.9 Magnesium 1.7 Total Bilirubin 2.2 H AST 13 L D ALT 20 L D Alkaline Phosphatase 66 Total Protein 4.4 L Albumin 1.9 L D Globulin 2.5 Albumin/Globulin Ratio 0.8 L Blood Type B POSITIVE Antibody Screen Negative Assessment & Plan (1) Pleural effusion, left Status: Acute (2) Pneumonia Status: Acute (3) Pleural effusion Status: Acute (4) AML (acute myeloblastic leukemia) Status: Chronic Priority: High (5) Pancytopenia Status: Chronic Priority: High - Assessment and Plan (Free Text) Assessment: neutropenic fever s/p chemo for AML empoiric rx for pneumonia in progress if fever persists would add antifungal rx empirically prognosis poor from outset
--- NOTE | 2018-12-30 21:13 | CP.PCM.CON ---
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 The patient had outpatient PRBC and platelet transfusions in outpatient chemotherapy in an attempt to decrease his inpatient admissions. He notes to progressive weakness and productive cough which prompted him to the hospital. He does admit to sore throat and burning with swallowing. Past medical history: COPD, AML, lung mass, pneumothorax Past surgical history: Denies Family history: Denies hematologic and oncologic problems Social history: Former tobacco abuse Allergies: NKA Review of systems: All remaining review of systems including HEENT, cardio vascular, respiratory, gastrointestinal, genitourinary, musculoskeletal, dermatologic, neurologic, and psychiatric are negative unless mentioned in the HPI. Past Patient History - Infectious Disease Hx of Infectious Diseases: None - Tetanus Immunizations Tetanus Immunization: Unknown - Past Medical History & Family History Past Medical History?: Yes - Past Social History Smoking Status: Former Smoker - CARDIAC Hx Hypertension: Yes Hx Peripheral Edema: Yes - PULMONARY Hx Chronic Obstructive Pulmonary Disease (COPD): Yes Hx Pneumonia: Yes - NEUROLOGICAL Hx Neurological Disorder: No - HEENT Hx HEENT Problems: Yes Hx Cataracts: Yes - RENAL Hx Chronic Kidney Disease: No - ENDOCRINE/METABOLIC Hx Endocrine Disorders: No - HEMATOLOGICAL/ONCOLOGICAL Hx Anemia: Yes - INTEGUMENTARY Hx Dermatological Problems: No - MUSCULOSKELETAL/RHEUMATOLOGICAL Hx Musculoskeletal Disorders: No Hx Falls: No - GASTROINTESTINAL Hx Gastrointestinal Disorders: Yes Hx Constipation: Yes - GENITOURINARY/GYNECOLOGICAL Hx Genitourinary Disorders: Yes Hx Prostate Problems: Yes (enlarge prostate) - PSYCHIATRIC Hx Substance Use: No - SURGICAL HISTORY Hx Surgeries: Yes Other/Comment: chest tube. - ANESTHESIA Hx Anesthesia: No Meds Allergies/Adverse Reactions: Allergies Allergy/AdvReac Type Severity Reaction Status Date / Time No Known Allergies Allergy Verified 12/29/18 06:08 - Medications Medications: Current Medications Acetaminophen (Tylenol 325mg Tab) 650 mg PO Q6 PRN PRN Reason: Pain, moderate (4-7) Last Admin: 12/30/18 17:04 Dose: 650 mg Diphenhydramine HCl (Benadryl) 25 mg IVP ONCE PRN PRN Reason: PRIOR TO TRANSFUSION Docusate Sodium (Colace) 100 mg PO BID [facility] Last Admin: 12/30/18 17:40 Dose: 100 mg Furosemide (Lasix) 20 mg PO DAILY [facility] Last Admin: 12/30/18 09:25 Dose: 20 mg Guaifenesin (Robitussin) 100 mg PO Q4H PRN PRN Reason: Cough Vancomycin/Sodium Chloride (Vancomycin 1 Gm/Ns 200 Ml) 1 gm in 200 mls @ 133 mls/hr IVPB Q12H [facility]; Protocol Stop: 01/03/19 15:31 Last Admin: 12/30/18 03:28 Dose: 133 mls/hr Meropenem 500 mg/ Sodium (Chloride) 100 mls @ 100 mls/hr IVPB Q8H [facility]; Protocol Last Admin: 12/30/18 17:42 Dose: 100 mls/hr Influenza Virus Vaccine (Flucelvax Quad 5102-2919 Syr) 60 mcg IM .ONCE ONE Stop: 01/01/19 10:01 Lisinopril (Zestril) 5 mg PO DAILY [facility] Last Admin: 12/30/18 09:26 Dose: Not Given Ondansetron HCl (Zofran Inj) 4 mg IVP Q6H PRN PRN Reason: Nausea/Vomiting Pantoprazole Sodium (Protonix Ec Tab) 40 mg PO DAILY [facility] Last Admin: 12/30/18 09:27 Dose: 40 mg Pneumococcal Polyvalent Vaccine (Pneumovax 23 Vaccine) 0.5 ml IM .ONCE ONE Stop: 01/01/19 10:01 Saliva Substitute (First Magic Mouthwash) 5 ml PO Q6 [facility] Last Admin: 12/30/18 17:43 Dose: 5 ml Scopolamine (Transderm-Scop) 1 patch TD Q3D [facility] Last Admin: 12/30/18 15:09 Dose: 1 patch Tamsulosin HCl (Flomax) 0.4 mg PO BID [facility] Last Admin: 12/30/18 17:40 Dose: 0.4 mg Physical Exam - Constitutional Appears: Cachectic - Eye Exam Eye Exam: Normal appearance - Respiratory Exam Respiratory Exam: Decreased Breath Sounds - Cardiovascular Exam Cardiovascular Exam: +S1, +S2 - GI/Abdominal Exam GI & Abdominal Exam: Normal Bowel Sounds - Extremities Exam Extremities exam: Positive for: pedal edema - Neurological Exam Neurological exam: Oriented x3 - Psychiatric Exam Psychiatric exam: Normal Affect, Normal Mood - Skin Skin Exam: Warm Results - Vital Signs Recent Vital Signs: Last Vital Signs Temp 97.8 F 12/30/18 20:55 Pulse 91 H 12/30/18 20:55 Resp 18 12/30/18 20:55 BP 105/60 12/30/18 20:55 Pulse Ox 100 12/30/18 16:02 - Labs Result Diagrams: 12/30/18 06:22 12/30/18 06:22 Labs: Laboratory Results - last 24 hr 12/29/18 12/30/18 12/30/18 06:30 06:22 06:22 WBC 0.1 L* RBC 2.27 L Hgb 6.8 L D Hct 20.5 L MCV 90.1 MCH 29.9 MCHC 33.2 RDW 13.3 Plt Count 9 L* D MPV 8.2 Neut % (Auto) 2.6 L Lymph % (Auto) 66.8 H Vernon % (Auto) 29.1 H Eos % (Auto) 1.5 Baso % (Auto) 0.0 Neut # (Auto) 0.0 L Lymph # (Auto) 0.1 L Vernon # (Auto) 0.0 Eos # (Auto) 0.0 Baso # (Auto) 0.0 Total Counted Cancelled Neutrophils % (Manual) Cancelled Band Neutrophils % Cancelled Lymphocytes % (Manual) Cancelled Reactive Lymphs % Cancelled Monocytes % (Manual) Cancelled Eosinophils % (Manual) Cancelled Basophils % (Manual) Cancelled Metamyelocytes % Cancelled Myelocytes % Cancelled Promyelocytes % Cancelled Blast Cells % Cancelled Plasma Cell % (Manual) Cancelled Nucleated RBC % Cancelled Hypersegmented Polys Cancelled Smudge Cells Cancelled Toxic Granulation Cancelled Dohle Bodies Cancelled Nazanin Rods Cancelled Platelet Estimate Cancelled Plt Clumps, EDTA Cancelled Large Platelets Cancelled Giant Platelets Cancelled RBC Morphology Cancelled Polychromasia Cancelled Hypochromasia (manual) Cancelled Poikilocytosis (manual Cancelled Basophilic Stippling Cancelled Anisocytosis (manual) Cancelled Microcytosis (manual) Cancelled Macrocytosis (manual) Cancelled Spherocytes Cancelled Sickle Cells Cancelled Target Cells Cancelled Tear Drop Cells Cancelled Ovalocytes Cancelled Stomatocytes Cancelled Helmet Cells Cancelled [place] Green Bodies Cancelled Terry Cells Cancelled Acanthocytes (Spur) Cancelled Rouleaux Cancelled Schistocytes Cancelled Sodium 133 Potassium 3.7 Chloride 101 Carbon Dioxide 29 Anion Gap 8 L BUN 25 H Creatinine 0.6 L Est GFR ( Amer) > 60 Est GFR (Non-Af Amer) > 60 Random Glucose 94 Calcium 8.0 L Phosphorus 2.9 Magnesium 1.7 Total Bilirubin 2.2 H AST 13 L D ALT 20 L D Alkaline Phosphatase 66 Total Protein 4.4 L Albumin 1.9 L D Globulin 2.5 Albumin/Globulin Ratio 0.8 L Blood Type B POSITIVE Antibody Screen Negative Assessment & Plan (1) Pancytopenia Assessment and Plan: secondary to AML and recent chemotherapy not a growth factor candidate due to AML (will worsen AML if given) transfusion support PRN Status: Chronic Priority: High (2) AML (acute myeloblastic leukemia) Assessment and Plan: on decitabine therapy; treated last week outpatient treatment Thank you for this interesting consult. Status: Chronic Priority: High
[2018-12-31] MEDS: Mag&Al/Simet/Diphen/Lido 237 ML KIT PO SCH ×4 (00:03→17:15)
[2018-12-31] MEDS: Meropenem 500 MG in Sodium Chloride 0.9% 100 ML IVPB SCH ×2 (02:04→09:33)
[2018-12-31] MEDS: Vancomycin 1 gm/NS 200 ml 1 GM/200 ML BAG IVPB SCH ×2 (03:29→15:30)
--- NOTE | 2018-12-31 07:00 | CP.PCM.PN ---
Subjective - Date & Time of Evaluation Date of Evaluation: 12/31/18 Time of Evaluation: 07:00 - Subjective Subjective: Progress Note for Dr. Montoya's service Patient seen and examined at bedside. Daughter present at bedside. Patient complains of cough productive of yellow sputum. Remains on nasal cannula. He denies any pain, including headache, fevers, chills, dizziness, chest pain, abdominal pain, nausea, vomiting, leg pain. He denies any bleeding in blood or stool. Objective - Vital Signs/Intake and Output Vital Signs (last 24 hours): Temp Pulse Resp BP Pulse Ox 98.3 F 95 H 20 119/64 98 12/31/18 00:00 12/31/18 00:00 12/31/18 00:00 12/31/18 00:00 12/31/18 00:00 Intake and Output: 12/31/18 12/31/18 06:59 18:59 Intake Total 1982 Output Total 250 Balance 1732 - Medications Medications: Current Medications Acetaminophen (Tylenol 325mg Tab) 650 mg PO Q6 PRN PRN Reason: Pain, moderate (4-7) Last Admin: 12/30/18 17:04 Dose: 650 mg Diphenhydramine HCl (Benadryl) 25 mg IVP ONCE PRN PRN Reason: PRIOR TO TRANSFUSION Docusate Sodium (Colace) 100 mg PO BID [facility] Last Admin: 12/30/18 17:40 Dose: 100 mg Furosemide (Lasix) 20 mg PO DAILY [facility] Last Admin: 12/30/18 09:25 Dose: 20 mg Guaifenesin (Robitussin) 100 mg PO Q4H PRN PRN Reason: Cough Vancomycin/Sodium Chloride (Vancomycin 1 Gm/Ns 200 Ml) 1 gm in 200 mls @ 133 mls/hr IVPB Q12H [facility]; Protocol Stop: 01/03/19 15:31 Last Admin: 12/31/18 03:29 Dose: 133 mls/hr Meropenem 500 mg/ Sodium (Chloride) 100 mls @ 100 mls/hr IVPB Q8H [facility]; Protocol Last Admin: 12/31/18 02:04 Dose: 100 mls/hr Influenza Virus Vaccine (Flucelvax Quad 7760-9117 Syr) 60 mcg IM .ONCE ONE Stop: 01/01/19 10:01 Lisinopril (Zestril) 5 mg PO DAILY [facility] Last Admin: 12/30/18 09:26 Dose: Not Given Ondansetron HCl (Zofran Inj) 4 mg IVP Q6H PRN PRN Reason: Nausea/Vomiting Pantoprazole Sodium (Protonix Ec Tab) 40 mg PO DAILY [facility] Last Admin: 12/30/18 09:27 Dose: 40 mg Pneumococcal Polyvalent Vaccine (Pneumovax 23 Vaccine) 0.5 ml IM .ONCE ONE Stop: 01/01/19 10:01 Saliva Substitute (First Magic Mouthwash) 5 ml PO Q6 [facility] Last Admin: 12/31/18 06:02 Dose: 5 ml Scopolamine (Transderm-Scop) 1 patch TD Q3D [facility] Last Admin: 12/30/18 15:09 Dose: 1 patch Tamsulosin HCl (Flomax) 0.4 mg PO BID [facility] Last Admin: 12/30/18 17:40 Dose: 0.4 mg - Labs Labs: 12/30/18 06:22 12/30/18 06:22 PT 15.8 SECONDS (9.7-12.2) H 12/29/18 06:30 INR 1.4 12/29/18 06:30 APTT 23 SECONDS (21-34) 12/29/18 06:30 - Constitutional Appears: Cachectic, Chronically Ill - Head Exam Head Exam: ATRAUMATIC, NORMOCEPHALIC - Eye Exam Eye Exam: EOMI, PERRL - ENT Exam ENT Exam: Mucous Membranes Dry Additional comments: Tongue has small amount of brown material, improved from admission - Neck Exam Neck Exam: Full ROM - Respiratory Exam Respiratory Exam: Decreased Breath Sounds, Rales - Cardiovascular Exam Cardiovascular Exam: REGULAR RHYTHM, +S1, +S2. absent: Gallop, Rubs, Murmur - GI/Abdominal Exam GI & Abdominal Exam: Soft, Normal Bowel Sounds. absent: Distended, Firm, Guarding, Rigid, Tenderness, Organomegaly - Extremities Exam Extremities Exam: Normal Capillary Refill. absent: Calf Tenderness, Pedal Edema - Back Exam Back Exam: absent: CVA tenderness (L), CVA tenderness (R) - Neurological Exam Neurological Exam: Alert, Awake, Oriented x3 - Psychiatric Exam Psychiatric exam: Normal Affect, Normal Mood - Skin Skin Exam: Dry, Intact, Warm Assessment and Plan - Assessment and Plan (Free Text) Assessment: 78 year old male with history of COPD, AML on chemo, BPH, HTN who presents for shortness of breath. Plan: AML, currently on chemo Oncologist Dr. Bobby consulted, help appreciated Received 3rd dose of Decitabine 12/24/18 White count 0.1 Hb/Hct 8.9/25.9 Platelets 26, increased from 9 2 units PRBCs and 2 units platelets transfusion received- 12/30/18 Neutropenic precautions. Zofran 4mg Q6 PRN [facility] Associated Pneumonia, with left sided Infiltrates Right sided Pleural effusion Cough Pediatric Anesthesiologist Dr. Thurston consulted, help appreciated CXR: Persistent near complete opacification of the left hemithorax with dense masslike consolidative change within left upper to mid lung zone. Moderate loc ulated left pleural effusion. Focal consolidative opacifications seen within the right lung apex. Scattered nodular densities in the lung martines bilaterally. CT chest: No CTA evidence for acute pulmonary embolism.Dense consolidation with air bronchogram in the left upper and lower lobes. Moderate right and small left pleural effusions. Multiple variable-sized parenchymal and subpleural nodules in the right lung, the largest in the right middle lobe measures 1.7 x 1.3 cm. These are nonspecific and could be infectious, inflammatory or neoplastic in etiology. Short-term interval follow-up is advised. Enlarged precarinal mediastinal lymph nodes, the largest measures 1.3 cm in transverse diameter. Mild cardiomegaly and small pericardial effusion. Saturating at 94% on 5L NC. Blood cultures and sputum culture negative for 48 hours Received Ceftriaxone, Azithromycin in ED. ID Dr. Ferrari consulted, help appreciated Vancomycin 1g IV Q12 started 12/29/18 Merrem 1g IV started 12/29/18, continue with Merrem 500mg Q8 Negative legionella, strep pneumonia follow up mycoplasma D-dimer 2155 Negative for flu Lasix 20mg PO daily Robitussin Scopolamine patch LDH 242 Follow up on repeat CXR tomorrow morning follow up fungal beta glucan studies History of BPH Flomax 0.4mg PO BID History of HTN Lisinopril 5mg PO daily Hold for low blood pressure Prophylaxis: Protonix SCDs PT/OT Full code Keysha Rodriguez, PGY1
[2018-12-31 08:25] LABS: ALB/GLOB RATIO 0.8 (1.0-2.1); ALT/SGPT 20 U/L (21-72); AST/SGOT 9 U/L (17-59); BLOOD UREA NITROGEN 29 mg/dL (9-20); CALCIUM 8.1 mg/dl (8.6-10.4); GFR NON-AFRICAN AMERICAN > 60
[2018-12-31 08:26] LABS: EOS % 1.5 % (0.0-4.0); LYMPH # 0.1 K/uL (1.0-4.3); LYMPH % 69.4 % (20.0-40.0); MEAN CELL VOLUME 89.6 fL (80.0-94.0); MEAN CORPUSCULAR HEMOGLOBIN 30.9 pg (27.0-31.0); MEAN CORPUSCULAR HGB CONC 34.5 g/dL (33.0-37.0); MEAN PLATELET VOLUME 8.4 fL (7.2-11.7); MONO % 26.2 % (0.0-10.0); NEUT % 2.9 % (50.0-75.0); NRBC % 4.6 % (0.0-2.0); RBC 2.89 Mil/uL (4.40-5.90); RED CELL DISTRIBUTION WIDTH 13.5 % (11.5-14.5)
[2018-12-31 08:35] LABS: HEMOGLOBIN 8.9 g/dL (12.0-18.0); WHITE BLOOD COUNT 0.1 K/uL (4.8-10.8)
[2018-12-31] MEDS: Pantoprazole 40 mg EC Tab PO SCH (09:29)
[2018-12-31 11:08] LABS: STREP PNEUMONIAE NEGATIVE (NEGATIVE)
--- NOTE | 2018-12-31 12:25 | CP.PCM.PN ---
Subjective - Date & Time of Evaluation Date of Evaluation: 12/31/18 Time of Evaluation: 10:20 - Subjective Subjective: Patient seen and examined Patient feels slightly better with less cough Afebrile Awake and responsive Objective - Vital Signs/Intake and Output Vital Signs (last 24 hours): Temp Pulse Resp BP Pulse Ox 98.8 F 108 H 18 126/70 94 L 12/31/18 08:22 12/31/18 08:22 12/31/18 08:22 12/31/18 09:29 12/31/18 08:22 Intake and Output: 12/31/18 12/31/18 06:59 18:59 Intake Total 1982 Output Total 250 Balance 1732 - Medications Medications: Current Medications Acetaminophen (Tylenol 325mg Tab) 650 mg PO Q6 PRN PRN Reason: Pain, moderate (4-7) Last Admin: 12/30/18 17:04 Dose: 650 mg Diphenhydramine HCl (Benadryl) 25 mg IVP ONCE PRN PRN Reason: PRIOR TO TRANSFUSION Docusate Sodium (Colace) 100 mg PO BID [facility] Last Admin: 12/31/18 09:28 Dose: 100 mg Furosemide (Lasix) 20 mg PO DAILY [facility] Last Admin: 12/31/18 09:29 Dose: 20 mg Guaifenesin (Robitussin) 100 mg PO Q4H PRN PRN Reason: Cough Vancomycin/Sodium Chloride (Vancomycin 1 Gm/Ns 200 Ml) 1 gm in 200 mls @ 133 mls/hr IVPB Q12H [facility]; Protocol Stop: 01/03/19 15:31 Last Admin: 12/31/18 03:29 Dose: 133 mls/hr Meropenem 500 mg/ Sodium (Chloride) 100 mls @ 100 mls/hr IVPB Q8H [facility]; Protocol Last Admin: 12/31/18 09:33 Dose: 100 mls/hr Influenza Virus Vaccine (Flucelvax Quad [id number] Syr) 60 mcg IM .ONCE ONE Stop: 01/01/19 10:01 Lisinopril (Zestril) 5 mg PO DAILY [facility] Last Admin: 12/31/18 09:29 Dose: 5 mg Ondansetron HCl (Zofran Inj) 4 mg IVP Q6H PRN PRN Reason: Nausea/Vomiting Pantoprazole Sodium (Protonix Ec Tab) 40 mg PO DAILY [facility] Last Admin: 12/31/18 09:29 Dose: 40 mg Pneumococcal Polyvalent Vaccine (Pneumovax 23 Vaccine) 0.5 ml IM .ONCE ONE Stop: 01/01/19 10:01 Saliva Substitute (First Magic Mouthwash) 5 ml PO Q6 [facility] Last Admin: 12/31/18 11:29 Dose: 5 ml Scopolamine (Transderm-Scop) 1 patch TD Q3D [facility] Last Admin: 12/30/18 15:09 Dose: 1 patch Tamsulosin HCl (Flomax) 0.4 mg PO BID [facility] Last Admin: 12/31/18 09:28 Dose: 0.4 mg - Labs Labs: 12/31/18 08:02 12/31/18 08:02 PT 15.8 SECONDS (9.7-12.2) H 12/29/18 06:30 INR 1.4 12/29/18 06:30 APTT 23 SECONDS (21-34) 12/29/18 06:30 - Head Exam Head Exam: ATRAUMATIC, NORMOCEPHALIC - ENT Exam ENT Exam: Mucous Membranes Moist - Respiratory Exam Respiratory Exam: Decreased Breath Sounds - Cardiovascular Exam Cardiovascular Exam: REGULAR RHYTHM - GI/Abdominal Exam GI & Abdominal Exam: Soft, Normal Bowel Sounds Assessment and Plan (1) Pneumonia Assessment & Plan: Continue antibiotics as per infectious disease Follow-up culture and sensitivity Follow-up chest x-ray Status: Acute (2) Pleural effusion, left Status: Acute
--- NOTE | 2018-12-31 16:55 | CP.PCM.PN ---
Subjective - Date & Time of Evaluation Date of Evaluation: 12/31/18 Time of Evaluation: 09:00 - Subjective Subjective: less cough less fever less SOB Objective - Vital Signs/Intake and Output Vital Signs (last 24 hours): Temp Pulse Resp BP Pulse Ox 99.2 F 108 H 20 100/57 L 95 12/31/18 16:46 12/31/18 16:46 12/31/18 16:46 12/31/18 16:46 12/31/18 16:46 Intake and Output: 12/31/18 12/31/18 06:59 18:59 Intake Total 1982 400 Output Total 250 300 Balance 1732 100 - Medications Medications: Current Medications Acetaminophen (Tylenol 325mg Tab) 650 mg PO Q6 PRN PRN Reason: Pain, moderate (4-7) Last Admin: 12/30/18 17:04 Dose: 650 mg Diphenhydramine HCl (Benadryl) 25 mg IVP ONCE PRN PRN Reason: PRIOR TO TRANSFUSION Docusate Sodium (Colace) 100 mg PO BID [facility] Last Admin: 12/31/18 09:28 Dose: 100 mg Furosemide (Lasix) 20 mg PO DAILY [facility] Last Admin: 12/31/18 09:29 Dose: 20 mg Guaifenesin (Robitussin) 100 mg PO Q4H PRN PRN Reason: Cough Vancomycin/Sodium Chloride (Vancomycin 1 Gm/Ns 200 Ml) 1 gm in 200 mls @ 133 mls/hr IVPB Q12H [facility]; Protocol Stop: 01/03/19 15:31 Last Admin: 12/31/18 03:29 Dose: 133 mls/hr Meropenem 500 mg/ Sodium (Chloride) 100 mls @ 100 mls/hr IVPB Q8H [facility]; Protocol Last Admin: 12/31/18 09:33 Dose: 100 mls/hr Influenza Virus Vaccine (Flucelvax Quad 1139-4612 Syr) 60 mcg IM .ONCE ONE Stop: 01/01/19 10:01 Lisinopril (Zestril) 5 mg PO DAILY [facility] Last Admin: 12/31/18 09:29 Dose: 5 mg Ondansetron HCl (Zofran Inj) 4 mg IVP Q6H PRN PRN Reason: Nausea/Vomiting Pantoprazole Sodium (Protonix Ec Tab) 40 mg PO DAILY [facility] Last Admin: 12/31/18 09:29 Dose: 40 mg Pneumococcal Polyvalent Vaccine (Pneumovax 23 Vaccine) 0.5 ml IM .ONCE ONE Stop: 01/01/19 10:01 Saliva Substitute (First Magic Mouthwash) 5 ml PO Q6 [facility] Last Admin: 12/31/18 11:29 Dose: 5 ml Scopolamine (Transderm-Scop) 1 patch TD Q3D [facility] Last Admin: 12/30/18 15:09 Dose: 1 patch Tamsulosin HCl (Flomax) 0.4 mg PO BID [facility] Last Admin: 12/31/18 09:28 Dose: 0.4 mg - Labs Labs: 12/31/18 08:02 12/31/18 08:02 PT 15.8 SECONDS (9.7-12.2) H 12/29/18 06:30 INR 1.4 12/29/18 06:30 APTT 23 SECONDS (21-34) 12/29/18 06:30 - Constitutional Appears: Non-toxic, Cachectic, Chronically Ill - Head Exam Head Exam: NORMOCEPHALIC - Eye Exam Eye Exam: absent: Scleral icterus - ENT Exam ENT Exam: Mucous Membranes Dry - Neck Exam Neck Exam: absent: Lymphadenopathy - Respiratory Exam Respiratory Exam: Decreased Breath Sounds, Rhonchi - Cardiovascular Exam Cardiovascular Exam: REGULAR RHYTHM, +S1, +S2 - GI/Abdominal Exam GI & Abdominal Exam: Distended, Soft. absent: Tenderness - Rectal Exam Rectal Exam: Deferred - Exam Exam: NORMAL INSPECTION - Extremities Exam Extremities Exam: absent: Pedal Edema - Back Exam Back Exam: absent: CVA tenderness (L), CVA tenderness (R) - Neurological Exam Neurological Exam: Alert, Awake, Oriented x3 - Psychiatric Exam Psychiatric exam: Depressed Assessment and Plan (1) Pleural effusion, left Status: Acute (2) Pneumonia Status: Acute (3) Pleural effusion Status: Acute (4) AML (acute myeloblastic leukemia) Status: Chronic (5) Pancytopenia Status: Chronic - Assessment and Plan (Free Text) Assessment: 78 year old male presents for shortness of breath and cough productive of yellow nonbloody sputum. Patient received chemo last Thursday, and received 2 units PRBCs and 2 units platelets earlier this week prior to admission here. ID antibiotics in progress Plan: no new cultures
[2018-12-31] MEDS: Meropenem 1 GM in Sodium Chloride 0.9% 100 ML IVPB SCH (20:16)
[2019-01-01] MEDS: Mag&Al/Simet/Diphen/Lido 237 ML KIT PO SCH ×4 (00:14→17:42)
[2019-01-01] MEDS: Meropenem 1 GM in Sodium Chloride 0.9% 100 ML IVPB SCH ×3 (00:15→17:38)
[2019-01-01 04:11] LABS: EOS % 1.9 % (0.0-4.0); HEMOGLOBIN 8.3 g/dL (12.0-18.0); LYMPH # 0.1 K/uL (1.0-4.3); MEAN CELL VOLUME 91.1 fL (80.0-94.0); MEAN CORPUSCULAR HEMOGLOBIN 30.3 pg (27.0-31.0); MEAN CORPUSCULAR HGB CONC 33.3 g/dL (33.0-37.0); MEAN PLATELET VOLUME 8.8 fL (7.2-11.7); MONO % 18.8 % (0.0-10.0); NEUT % 3.3 % (50.0-75.0); NRBC % 2.2 % (0.0-2.0); RBC 2.72 Mil/uL (4.40-5.90); RED CELL DISTRIBUTION WIDTH 13.8 % (11.5-14.5)
[2019-01-01 04:14] LABS: WHITE BLOOD COUNT 0.2 K/uL (4.8-10.8)
[2019-01-01 04:15] LABS: PLATELET COUNT 11 K/uL (130-400)
[2019-01-01 04:29] LABS: ALB/GLOB RATIO 0.8 (1.0-2.1); ALBUMIN 1.8 g/dL (3.5-5.0); ALT/SGPT 27 U/L (21-72); AST/SGOT 13 U/L (17-59); BLOOD UREA NITROGEN 31 mg/dL (9-20); GFR NON-AFRICAN AMERICAN > 60
[2019-01-01 05:04] LABS: PLATELET ESTIMATE MARKEDLY DECREASED (NORMAL)
[2019-01-01] MEDS: Vancomycin 1 gm/NS 200 ml 1 GM/200 ML BAG IVPB SCH ×2 (05:53→14:33)
--- NOTE | 2019-01-01 07:48 | CP.PCM.PN ---
Subjective - Date & Time of Evaluation Date of Evaluation: 01/01/19 Time of Evaluation: 07:48 - Subjective Subjective: Progress Note for Dr. Montoya's service Patient seen and examined at bedside. He states his breathing is improved, his productive cough is persistent but improved. Denies fevers, chills, headache, dizziness, palpitations, abdominal pain, nausea, vomiting, diarrhea, leg pain. Objective - Vital Signs/Intake and Output Vital Signs (last 24 hours): Temp Pulse Resp BP Pulse Ox 98.2 F 90 20 111/58 L 97 01/01/19 00:00 01/01/19 00:00 01/01/19 00:00 01/01/19 00:00 01/01/19 00:00 Intake and Output: 01/01/19 01/01/19 06:59 18:59 Intake Total 400 Output Total 300 Balance 100 - Medications Medications: Current Medications Acetaminophen (Tylenol 325mg Tab) 650 mg PO Q6 PRN PRN Reason: Pain, moderate (4-7) Last Admin: 12/30/18 17:04 Dose: 650 mg Diphenhydramine HCl (Benadryl) 25 mg IVP ONCE PRN PRN Reason: PRIOR TO TRANSFUSION Docusate Sodium (Colace) 100 mg PO BID [facility] Last Admin: 12/31/18 17:14 Dose: 100 mg Furosemide (Lasix) 20 mg PO DAILY [facility] Last Admin: 12/31/18 09:29 Dose: 20 mg Guaifenesin (Robitussin) 100 mg PO Q4H PRN PRN Reason: Cough Vancomycin/Sodium Chloride (Vancomycin 1 Gm/Ns 200 Ml) 1 gm in 200 mls @ 133 mls/hr IVPB Q12H [facility]; Protocol Stop: 01/03/19 15:31 Last Admin: 01/01/19 05:53 Dose: 133 mls/hr Meropenem 1 gm/ Sodium (Chloride) 100 mls @ 100 mls/hr IVPB Q8H [facility]; Protocol Last Admin: 01/01/19 00:15 Dose: 100 mls/hr Influenza Virus Vaccine (Flucelvax Quad 9759-9798 Syr) 60 mcg IM .ONCE ONE Stop: 01/01/19 10:01 Lisinopril (Zestril) 5 mg PO DAILY [facility] Last Admin: 12/31/18 09:29 Dose: 5 mg Ondansetron HCl (Zofran Inj) 4 mg IVP Q6H PRN PRN Reason: Nausea/Vomiting Pantoprazole Sodium (Protonix Ec Tab) 40 mg PO DAILY [facility] Last Admin: 12/31/18 09:29 Dose: 40 mg Pneumococcal Polyvalent Vaccine (Pneumovax 23 Vaccine) 0.5 ml IM .ONCE ONE Stop: 01/01/19 10:01 Saliva Substitute (First Magic Mouthwash) 5 ml PO Q6 [facility] Last Admin: 01/01/19 05:26 Dose: 5 ml Scopolamine (Transderm-Scop) 1 patch TD Q3D [facility] Last Admin: 12/30/18 15:09 Dose: 1 patch Tamsulosin HCl (Flomax) 0.4 mg PO BID [facility] Last Admin: 12/31/18 17:15 Dose: 0.4 mg - Labs Labs: 01/01/19 04:08 01/01/19 04:08 PT 15.8 SECONDS (9.7-12.2) H 12/29/18 06:30 INR 1.4 12/29/18 06:30 APTT 23 SECONDS (21-34) 12/29/18 06:30 - Constitutional Appears: Cachectic, Chronically Ill - Head Exam Head Exam: ATRAUMATIC, NORMOCEPHALIC - Eye Exam Eye Exam: EOMI, PERRL - ENT Exam ENT Exam: Mucous Membranes Moist - Neck Exam Neck Exam: Full ROM - Respiratory Exam Respiratory Exam: Decreased Breath Sounds, Rales - Cardiovascular Exam Cardiovascular Exam: REGULAR RHYTHM, +S1, +S2 - GI/Abdominal Exam GI & Abdominal Exam: Soft, Normal Bowel Sounds. 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 Plan: AML, currently on chemo Oncologist Dr. Bobby consulted, help appreciated Received 3rd dose of Decitabine 12/24/18 White count 0.1 Hb/Hct 8.9/25.9 Platelets 11 today, not necessary to transfuse at this time. 2 units PRBCs and 2 units platelets transfusion received- 12/30/18 Neutropenic precautions. Zofran 4mg Q6 PRN Chest pain, r/o ACS Patient developed chest pain, reproducible to palpation, deep inspiration EKG: LBBB unchanged from prior Trop stat negative Healthcare Associated Pneumonia, with left sided Infiltrates Right sided Pleural effusion Cough Duct Cleaner Dr. Thurston consulted, help appreciated CXR: Persistent near complete opacification of the left hemithorax with dense masslike consolidative change within left upper to mid lung zone. Moderate loculated left pleural effusion. Focal consolidative opacifications seen within the right lung apex. Scattered nodular densities in the lung martines bilaterally. CT chest: No CTA evidence for acute pulmonary embolism.Dense consolidation with air bronchogram in the left upper and lower lobes. Moderate right and small left pleural effusions. Multiple variable-sized parenchymal and subpleural nodules in the right lung, the largest in the right middle lobe measures 1.7 x 1.3 cm. These are nonspecific and could be infectious, inflammatory or neoplastic in etiology. Short-term interval follow-up is advised. Enlarged precarinal mediastinal lymph nodes, the largest measures 1.3 cm in transverse diameter. Mild cardiomegaly and small pericardial effusion. Saturating at 97% on 5L NC. Blood cultures negative for 3 days Sputum culture: GP cocci Received Ceftriaxone, Azithromycin in ED. ID Dr. Ferrari consulted, help appreciated Vancomycin 1g IV Q12 started 12/29/18 Merrem 1g IV started 12/29/18, continue with Merrem 500mg Q8 Negative legionella, strep pneumonia, mycoplasa D-dimer 2156 Negative for flu Lasix 20mg PO daily Robitussin Scopolamine patch LDH 242 Phenergan with codeine Repeat CXR Dense left upper lobe consolidation and left lower/lingular infiltrate unchanged. Increasing opacity right apex with questionable cavita iton. Multifocal vague small opacities elsewhere in right lung. follow up fungal beta glucan studies follow up quantiferon gold History of BPH Flomax 0.4mg PO BID History of HTN Lisinopril 5mg PO daily Hold for low blood pressure Prophylaxis: Protonix SCDs PT/OT Full code Case discussed with Dr. Lindsay Rodriguez, PGY1
[2019-01-01] MEDS: Pantoprazole 40 mg EC Tab PO SCH (09:50)
[2019-01-01] MEDS ORDERED: Influenza Vaccine 60 mcg/0.5 mL SYR (4YR UP) IM ONE (10:00)
[2019-01-01] MEDS ORDERED: Pneumococcal 23-Valent Vaccine IM ONE (10:00)
--- NOTE | 2019-01-01 10:09 | RAD ---
Date of service: 01/01/2019 HISTORY: infiltrates, pleural effusions COMPARISON: 12/29/2018 FINDINGS: LUNGS: Dense left upper lobe consolidation centrally unchanged from prior examination. Infiltrate also noted in lower left coral thorax. Again, grossly unchanged. Patchy opacities in lower and upper right lung with increasing opacity in right apex compared to prior. Questionable cavitation within this right apical opacity. Questionable cavitation within left upper lobe opacity. Left apical bulla as on CT of 12/29/2018. PLEURA: Small left pleural effusion. No right pleural effusion. CARDIOVASCULAR: There is atherosclerotic calcification of the thoracic aortic arch. Normal cardiac size. No pulmonary vascular congestion. OSSEOUS STRUCTURES: No significant abnormalities. VISUALIZED UPPER ABDOMEN: Normal. OTHER FINDINGS: None. IMPRESSION: Dense left upper lobe consolidation and left lower/lingular infiltrate unchanged. Increasing opacity right apex with questionable cavitation. Multifocal vague small opacities elsewhere in right lung.
[2019-01-01] MEDS: Promethazine/Cod 6.25mg-10mg/5ml Syr UD PO PRN (13:44)
--- NOTE | 2019-01-01 19:17 | CP.PCM.PN ---
Subjective - Date & Time of Evaluation Date of Evaluation: 01/01/19 Time of Evaluation: 18:00 - Subjective Subjective: Patient seen and examined Productive cough with blood-tinged sputum Dyspnea on exertion Afebrile Denies any chest pain Objective - Vital Signs/Intake and Output Vital Signs (last 24 hours): Temp Pulse Resp BP Pulse Ox 98.1 F 82 18 103/52 L 98 01/01/19 16:00 01/01/19 16:00 01/01/19 16:00 01/01/19 16:00 01/01/19 16:00 - Medications Medications: Current Medications Acetaminophen (Tylenol 325mg Tab) 650 mg PO Q6 PRN PRN Reason: Pain, moderate (4-7) Last Admin: 12/30/18 17:04 Dose: 650 mg Diphenhydramine HCl (Benadryl) 25 mg IVP ONCE PRN PRN Reason: PRIOR TO TRANSFUSION Docusate Sodium (Colace) 100 mg PO BID [facility] Last Admin: 01/01/19 17:41 Dose: 100 mg Furosemide (Lasix) 20 mg PO DAILY [facility] Last Admin: 01/01/19 09:50 Dose: 20 mg Guaifenesin (Robitussin) 100 mg PO Q4H PRN PRN Reason: Cough Vancomycin/Sodium Chloride (Vancomycin 1 Gm/Ns 200 Ml) 1 gm in 200 mls @ 133 mls/hr IVPB Q12H [facility]; Protocol Stop: 01/03/19 15:31 Last Admin: 01/01/19 14:33 Dose: 133 mls/hr Meropenem 1 gm/ Sodium (Chloride) 100 mls @ 100 mls/hr IVPB Q8H [facility]; Protocol Last Admin: 01/01/19 17:38 Dose: 100 mls/hr Influenza Virus Vaccine (Flucelvax Quad [id number] Syr) 60 mcg IM .ONCE ONE Stop: 01/03/19 10:01 Lisinopril (Zestril) 5 mg PO DAILY [facility] Last Admin: 01/01/19 09:51 Dose: 5 mg Ondansetron HCl (Zofran Inj) 4 mg IVP Q6H PRN PRN Reason: Nausea/Vomiting Pantoprazole Sodium (Protonix Ec Tab) 40 mg PO DAILY [facility] Last Admin: 01/01/19 09:50 Dose: 40 mg Pneumococcal Polyvalent Vaccine (Pneumovax 23 Vaccine) 0.5 ml IM .ONCE ONE Stop: 01/03/19 10:01 Promethazine HCl/Codeine (Phenergan/Codeine Oral Syrup) 5 ml PO Q6 PRN PRN Reason: Cough Last Admin: 01/01/19 13:44 Dose: 5 ml Saliva Substitute (First Magic Mouthwash) 5 ml PO Q6 [facility] Last Admin: 01/01/19 17:42 Dose: 5 ml Scopolamine (Transderm-Scop) 1 patch TD Q3D [facility] Last Admin: 12/30/18 15:09 Dose: 1 patch Tamsulosin HCl (Flomax) 0.4 mg PO BID [facility] Last Admin: 01/01/19 17:42 Dose: 0.4 mg - Labs Labs: 01/01/19 04:08 01/01/19 04:08 PT 15.8 SECONDS (9.7-12.2) H 12/29/18 06:30 INR 1.4 12/29/18 06:30 APTT 23 SECONDS (21-34) 12/29/18 06:30 - Head Exam Head Exam: ATRAUMATIC, NORMOCEPHALIC - ENT Exam ENT Exam: Mucous Membranes Moist - Neck Exam Neck Exam: Normal Inspection - Respiratory Exam Respiratory Exam: Decreased Breath Sounds - Cardiovascular Exam Cardiovascular Exam: REGULAR RHYTHM - GI/Abdominal Exam GI & Abdominal Exam: Soft, Normal Bowel Sounds Assessment and Plan (1) Pneumonia Assessment & Plan: Cough with copious amount of blood-tinged sputum Continue meropenem Patient high risk for fungal infection and consider antifungal Follow-up culture and sensitivity Status: Acute (2) Pleural effusion, left Status: Acute
[2019-01-02] MEDS: Mag&Al/Simet/Diphen/Lido 237 ML KIT PO SCH ×4 (00:01→17:37)
[2019-01-02] MEDS: Meropenem 1 GM in Sodium Chloride 0.9% 100 ML IVPB SCH ×3 (00:51→17:30)
[2019-01-02] MEDS: Vancomycin 1 gm/NS 200 ml 1 GM/200 ML BAG IVPB SCH ×2 (03:29→15:42)
--- NOTE | 2019-01-02 08:06 | CP.PCM.PN ---
<Derek Allen - Last Filed: 01/02/19 13:46> Subjective - Date & Time of Evaluation Date of Evaluation: 01/02/19 Time of Evaluation: 08:04 - Subjective Subjective: Dr. Montoya Progress Note: Patient seen and examined at bedside. Per nursing no acute events occurred overnight. Patient denies any chest pain, shortness of breath, fevers, chills, abdominal pain, dizziness, or any other complaints. Objective - Vital Signs/Intake and Output Vital Signs (last 24 hours): Temp Pulse Resp BP Pulse Ox 98.6 F 90 20 105/54 L 99 01/02/19 00:00 01/02/19 00:00 01/02/19 00:00 01/02/19 00:00 01/02/19 00:00 Intake and Output: 01/02/19 01/02/19 06:59 18:59 Intake Total 680 Output Total 250 Balance 430 - Medications Medications: Current Medications Acetaminophen (Tylenol 325mg Tab) 650 mg PO Q6 PRN PRN Reason: Pain, moderate (4-7) Last Admin: 12/30/18 17:04 Dose: 650 mg Diphenhydramine HCl (Benadryl) 25 mg IVP ONCE PRN PRN Reason: PRIOR TO TRANSFUSION Docusate Sodium (Colace) 100 mg PO BID [facility] Last Admin: 01/01/19 17:41 Dose: 100 mg Furosemide (Lasix) 20 mg PO DAILY [facility] Last Admin: 01/01/19 09:50 Dose: 20 mg Guaifenesin (Robitussin) 100 mg PO Q4H PRN PRN Reason: Cough Vancomycin/Sodium Chloride (Vancomycin 1 Gm/Ns 200 Ml) 1 gm in 200 mls @ 133 mls/hr IVPB Q12H [facility]; Protocol Stop: 01/03/19 15:31 Last Admin: 01/02/19 03:29 Dose: 133 mls/hr Meropenem 1 gm/ Sodium (Chloride) 100 mls @ 100 mls/hr IVPB Q8H [facility]; Protocol Last Admin: 01/02/19 00:51 Dose: 100 mls/hr Influenza Virus Vaccine (Flucelvax Quad [id number] Syr) 60 mcg IM .ONCE ONE Stop: 01/03/19 10:01 Lisinopril (Zestril) 5 mg PO DAILY [facility] Last Admin: 01/01/19 09:51 Dose: 5 mg Ondansetron HCl (Zofran Inj) 4 mg IVP Q6H PRN PRN Reason: Nausea/Vomiting Pantoprazole Sodium (Protonix Ec Tab) 40 mg PO DAILY [facility] Last Admin: 01/01/19 09:50 Dose: 40 mg Pneumococcal Polyvalent Vaccine (Pneumovax 23 Vaccine) 0.5 ml IM .ONCE ONE Stop: 01/03/19 10:01 Promethazine HCl/Codeine (Phenergan/Codeine Oral Syrup) 5 ml PO Q6 PRN PRN Reason: Cough Last Admin: 01/01/19 13:44 Dose: 5 ml Saliva Substitute (First Magic Mouthwash) 5 ml PO Q6 [facility] Last Admin: 01/02/19 06:03 Dose: 5 ml Scopolamine (Transderm-Scop) 1 patch TD Q3D [facility] Last Admin: 12/30/18 15:09 Dose: 1 patch Tamsulosin HCl (Flomax) 0.4 mg PO BID [facility] Last Admin: 01/01/19 17:42 Dose: 0.4 mg - Labs Labs: 01/01/19 04:08 01/01/19 04:08 PT 15.8 SECONDS (9.7-12.2) H 12/29/18 06:30 INR 1.4 12/29/18 06:30 APTT 23 SECONDS (21-34) 12/29/18 06:30 - Head Exam Head Exam: ATRAUMATIC, NORMAL INSPECTION - Eye Exam Eye Exam: EOMI, Normal appearance, PERRL Pupil Exam: NORMAL ACCOMODATION - ENT Exam ENT Exam: Mucous Membranes Moist, Normal Oropharynx - Respiratory Exam Respiratory Exam: Clear to Ausculation Bilateral, NORMAL BREATHING PATTERN. absent: Prolonged Expiratory Phase, Respiratory Distress - Cardiovascular Exam Cardiovascular Exam: REGULAR RHYTHM, +S1, +S2 - GI/Abdominal Exam GI & Abdominal Exam: Soft, Normal Bowel Sounds. absent: Hyperactive Bowel Sounds - Neurological Exam Neurological Exam: Alert, Awake, Oriented x3 - Psychiatric Exam Psychiatric exam: Normal Affect, Normal Mood. 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 Plan: AML, currently on chemo Oncologist Dr. Bobby consulted, help appreciated Received 3rd dose of Decitabine 12/24/18 White count 0.1 Hb/Hct 8.9/25.9 Platelets 9 today 2 UNITS platelets transfusion -01/02/19 2 units PRBCs and 2 units platelets transfusion received- 12/30/18 Neutropenic precautions. Zofran 4mg Q6 PRN Chest pain, r/o ACS Patient developed chest pain, reproducible to palpation, deep inspiration EKG: LBBB unchanged from prior Trop stat negative Healthcare Associated Pneumonia, with left sided Infiltrates Right sided Pleural effusion Cough Client Integration Manager Dr. Thurston consulted, help appreciated CXR: Persistent near complete opacification of the left hemithorax with dense masslike consolidative change within left upper to mid lung zone. Moderate loculated left pleural effusion. Focal consolidative opacifications seen within the right lung apex. Scattered nodular densities in the lung martines bilaterally. CT chest: No CTA evidence for acute pulmonary embolism.Dense consolidation with air bronchogram in the left upper and lower lobes. Moderate right and small left pleural effusions. Multiple variable-sized parenchymal and subpleural nodules in the right lung, the largest in the right middle lobe measures 1.7 x 1.3 cm. These are nonspecific and could be infectious, inflammatory or neoplastic in etiology. Short-term interval follow-up is advised. Enlarged precarinal mediastinal lymph nodes, the largest measures 1.3 cm in transverse diameter. Mild cardiomegaly and small pericardial effusion. Saturating at 97% on 5L NC. Blood cultures negative for 3 days Sputum culture: GP cocci Received Ceftriaxone, Azithromycin in ED. ID Dr. Ferrari consulted, help appreciated Vancomycin 1g IV Q12 started 12/29/18 Merrem 1g IV started 12/29/18, continue with Merrem 500mg Q8 Negative legionella, strep pneumonia, mycoplasa D-dimer 2156 Negative for flu Lasix 20mg PO daily Robitussin Scopolamine patch LDH 242 Phenergan with codeine Repeat CXR Dense left upper lobe consolidation and left lower/lingular infiltrate unchanged. Increasing opacity right apex with questionable cavitaiton. Multifocal vague small opacities elsewhere in right lung. follow up fungal beta glucan studies follow up quantiferon gold History of BPH Flomax 0.4mg PO BID History of HTN Lisinopril 5mg PO daily Hold for low blood pressure Prophylaxis: Protonix SCDs PT/OT Full code Case discussed with Dr. Lindsay Allen, PGY-2 <Andrzej Montoya Jr. - Last Filed: 01/08/19 13:56> Objective - Vital Signs/Intake and Output Vital Signs (last 24 hours): Temp Pulse Resp BP Pulse Ox 98.6 F 99 H 20 107/68 95 01/08/19 08:28 01/08/19 08:28 01/08/19 08:28 01/08/19 09:24 01/08/19 08:28 Intake and Output: 01/08/19 01/08/19 06:59 18:59 Intake Total 1970 Output Total 241 Balance 1729 - Medications Medications: Current Medications Acetaminophen (Tylenol 325mg Tab) 650 mg PO Q6 PRN PRN Reason: Pain, moderate (4-7) Last Admin: 01/04/19 21:04 Dose: 650 mg Acetaminophen (Tylenol 325mg Tab) 650 mg PO ONCE PRN PRN Reason: pre med Last Admin: 01/03/19 14:39 Dose: 650 mg Diphenhydramine HCl (Benadryl) 25 mg IVP ONCE PRN PRN Reason: PRIOR TO TRANSFUSION Last Admin: 01/02/19 13:02 Dose: 25 mg Diphenhydramine HCl (Benadryl) 25 mg PO ONCE PRN PRN Reason: pre med Last Admin: 01/03/19 14:39 Dose: 25 mg Docusate Sodium (Colace) 100 mg PO BID [facility] Last Admin: 01/08/19 09:30 Dose: Not Given Furosemide (Lasix) 20 mg PO DAILY [facility] Last Admin: 01/08/19 09:24 Dose: 20 mg Furosemide (Lasix) 20 mg IVP ONCE PRN PRN Reason: post transfusion Last Admin: 01/03/19 19:15 Dose: 20 mg Guaifenesin (Mucinex La) 600 mg PO BID [facility] Last Admin: 01/08/19 09:24 Dose: 600 mg Guaifenesin (Robitussin) 200 mg PO Q4H PRN PRN Reason: Cough and congestion Meropenem 1 gm/ Sodium (Chloride) 100 mls @ 100 mls/hr IVPB Q8H [facility]; Protocol Last Admin: 01/08/19 08:24 Dose: 100 mls/hr Micafungin Sodium 100 mg/ (Sodium Chloride) 100 mls @ 100 mls/hr IV Q24H [facility]; Protocol Last Admin: 01/08/19 00:05 Dose: 100 mls/hr Vancomycin HCl 1 gm/ Sodium (Chloride) 250 mls @ 166.7 mls/hr IVPB Q24H [facility]; Protocol Last Admin: 01/08/19 09:23 Dose: 166.7 mls/hr Dextrose/Sodium Chloride (Dextrose 5%/0.45% Ns 1000 Ml) 1,000 mls @ 100 mls/hr IV .Q10H [facility] Last Admin: 01/08/19 13:08 Dose: Not Given Lisinopril (Zestril) 5 mg PO DAILY [facility] Last Admin: 01/08/19 09:25 Dose: 5 mg Morphine Sulfate (Morphine) 1 mg IV Q4H PRN PRN Reason: Pain, severe (8-10) Ondansetron HCl (Zofran Inj) 4 mg IVP Q6H PRN PRN Reason: Nausea/Vomiting Pantoprazole Sodium (Protonix Ec Tab) 40 mg PO DAILY [facility] Last Admin: 01/08/19 09:25 Dose: 40 mg Saliva Substitute (First Magic Mouthwash) 5 ml PO Q6 [facility] Last Admin: 01/08/19 12:30 Dose: 5 ml Scopolamine (Transderm-Scop) 1 patch TD Q3D [facility] Last Admin: 01/08/19 10:23 Dose: 1 patch Tamsulosin HCl (Flomax) 0.4 mg PO BID [facility] Last Admin: 01/08/19 09:24 Dose: 0.4 mg - Labs Labs: 01/08/19 07:20 01/08/19 07:20 PT 15.8 SECONDS (9.7-12.2) H 12/29/18 06:30 INR 1.4 12/29/18 06:30 APTT 23 SECONDS (21-34) 12/29/18 06:30 Attending/Attestation - Attestation I have personally seen and examined this patient.: Yes I have fully participated in the care of the patient.: Yes I have reviewed all pertinent clinical information, including history, physical exam and plan: Yes Notes (Text): 01/08/19 13:55 Reviewed resident note findings and plan of care. Agree with plan of care and findings.
[2019-01-02 08:19] LABS: HEMOGLOBIN 8.5 g/dL (12.0-18.0); LYMPH # 0.2 K/uL (1.0-4.3); LYMPH % 82.1 % (20.0-40.0); MEAN CELL VOLUME 91.7 fL (80.0-94.0); MEAN CORPUSCULAR HEMOGLOBIN 30.5 pg (27.0-31.0); MEAN CORPUSCULAR HGB CONC 33.2 g/dL (33.0-37.0); MONO % 14.1 % (0.0-10.0); NEUT % 3.8 % (50.0-75.0); NRBC % 1.4 % (0.0-2.0); RBC 2.79 Mil/uL (4.40-5.90); RED CELL DISTRIBUTION WIDTH 13.5 % (11.5-14.5)
[2019-01-02 08:27] LABS: BLOOD UREA NITROGEN 26 mg/dL (9-20); CALCIUM 7.8 mg/dl (8.6-10.4); GFR NON-AFRICAN AMERICAN > 60
[2019-01-02 08:28] LABS: ALB/GLOB RATIO 0.7 (1.0-2.1); ALBUMIN 1.6 g/dL (3.5-5.0); ALT/SGPT 23 U/L (21-72); AST/SGOT 13 U/L (17-59)
[2019-01-02 08:30] LABS: WHITE BLOOD COUNT 0.2 K/uL (4.8-10.8)
[2019-01-02] MEDS: Pantoprazole 40 mg EC Tab PO SCH (09:56)
[2019-01-02] MEDS: Promethazine/Cod 6.25mg-10mg/5ml Syr UD PO PRN ×2 (10:45→17:37)
[2019-01-02] MEDS: DiphenhydrAMINE 50 mg/ml Inj IVP PRN (13:02)
--- NOTE | 2019-01-02 17:20 | CP.PCM.PN ---
Subjective - Date & Time of Evaluation Date of Evaluation: 01/02/19 Time of Evaluation: 10:00 - Subjective Subjective: Productive cough with blood-tinged sputum Dyspnea on exertion Afebrile Objective - Vital Signs/Intake and Output Vital Signs (last 24 hours): Temp Pulse Resp BP Pulse Ox 97.6 F 84 20 109/61 98 01/02/19 16:00 01/02/19 16:00 01/02/19 16:00 01/02/19 16:00 01/02/19 16:00 Intake and Output: 01/02/19 01/02/19 06:59 18:59 Intake Total 680 385 Output Total 250 Balance 430 385 - Medications Medications: Current Medications Acetaminophen (Tylenol 325mg Tab) 650 mg PO Q6 PRN PRN Reason: Pain, moderate (4-7) Last Admin: 01/02/19 13:01 Dose: 650 mg Diphenhydramine HCl (Benadryl) 25 mg IVP ONCE PRN PRN Reason: PRIOR TO TRANSFUSION Last Admin: 01/02/19 13:02 Dose: 25 mg Docusate Sodium (Colace) 100 mg PO BID [facility] Last Admin: 01/02/19 09:57 Dose: 100 mg Furosemide (Lasix) 20 mg PO DAILY [facility] Last Admin: 01/02/19 09:57 Dose: 20 mg Guaifenesin (Robitussin) 100 mg PO Q4H PRN PRN Reason: Cough Vancomycin/Sodium Chloride (Vancomycin 1 Gm/Ns 200 Ml) 1 gm in 200 mls @ 133 mls/hr IVPB Q12H [facility]; Protocol Stop: 01/03/19 15:31 Last Admin: 01/02/19 15:42 Dose: 133 mls/hr Meropenem 1 gm/ Sodium (Chloride) 100 mls @ 100 mls/hr IVPB Q8H [facility]; Protocol Last Admin: 01/02/19 10:47 Dose: 100 mls/hr Influenza Virus Vaccine (Flucelvax Quad 2308-7814 Syr) 60 mcg IM .ONCE ONE Stop: 01/03/19 10:01 Lisinopril (Zestril) 5 mg PO DAILY [facility] Last Admin: 01/02/19 09:56 Dose: 5 mg Ondansetron HCl (Zofran Inj) 4 mg IVP Q6H PRN PRN Reason: Nausea/Vomiting Pantoprazole Sodium (Protonix Ec Tab) 40 mg PO DAILY [facility] Last Admin: 01/02/19 09:56 Dose: 40 mg Pneumococcal Polyvalent Vaccine (Pneumovax 23 Vaccine) 0.5 ml IM .ONCE ONE Stop: 01/03/19 10:01 Promethazine HCl/Codeine (Phenergan/Codeine Oral Syrup) 5 ml PO Q6 PRN PRN Reason: Cough Last Admin: 01/02/19 10:45 Dose: 5 ml Saliva Substitute (First Magic Mouthwash) 5 ml PO Q6 [facility] Last Admin: 01/02/19 11:23 Dose: Not Given Scopolamine (Transderm-Scop) 1 patch TD Q3D [facility] Last Admin: 01/02/19 11:23 Dose: Not Given Tamsulosin HCl (Flomax) 0.4 mg PO BID [facility] Last Admin: 01/02/19 09:56 Dose: 0.4 mg - Labs Labs: 01/02/19 08:05 01/02/19 08:05 PT 15.8 SECONDS (9.7-12.2) H 12/29/18 06:30 INR 1.4 12/29/18 06:30 APTT 23 SECONDS (21-34) 12/29/18 06:30 - Constitutional Appears: Non-toxic, Cachectic, Chronically Ill - Head Exam Head Exam: NORMOCEPHALIC - Eye Exam Eye Exam: absent: Scleral icterus - ENT Exam ENT Exam: Mucous Membranes Dry - Neck Exam Neck Exam: absent: Lymphadenopathy - Respiratory Exam Respiratory Exam: Decreased Breath Sounds - Cardiovascular Exam Cardiovascular Exam: REGULAR RHYTHM - GI/Abdominal Exam GI & Abdominal Exam: Distended, Soft. absent: Tenderness - Rectal Exam Rectal Exam: Deferred - Exam Exam: NORMAL INSPECTION - Extremities Exam Extremities Exam: absent: Pedal Edema - Back Exam Back Exam: absent: CVA tenderness (L), CVA tenderness (R) - Neurological Exam Neurological Exam: Alert, Awake Assessment and Plan (1) Pleural effusion, left Status: Acute (2) Pneumonia Status: Acute (3) Pleural effusion Status: Acute (4) AML (acute myeloblastic leukemia) Status: Chronic (5) Pancytopenia Status: Chronic - Assessment and Plan (Free Text) Assessment: cont iv rx for min 7 days culturees so far neg
--- NOTE | 2019-01-02 18:29 | RAD ---
Date of service: 01/02/2019 PROCEDURE: Chest x-ray AP and left lateral decubitus HISTORY: sob COMPARISON: 01/01/2019 TECHNIQUE: AP and left lateral decubitus chest radiographs FINDINGS: There is probable left pleural effusion. It is not clearly demonstrated to be a mobile effusions with. Consider the addition of a right lateral decubitus chest radiograph. No right pleural effusion. No pneumothorax. Cannot rule out left-sided infiltrate. Questionable air bronchograms seen in left upper lobe.. Linear opacity in right apex likely atelectasis or scar. Normal heart size. There is atherosclerotic calcification of the aortic arch. No osseous abnormality. IMPRESSION: Probable left pleural effusion. Possible left upper lobe infiltrate.
--- NOTE | 2019-01-02 22:17 | CP.PCM.PN ---
Subjective - Date & Time of Evaluation Date of Evaluation: 12/31/18 Time of Evaluation: 19:00 - Subjective Subjective: Feels weak. Objective - Vital Signs/Intake and Output Vital Signs (last 24 hours): Temp Pulse Resp BP Pulse Ox 98.6 F 94 H 20 128/65 98 01/02/19 21:38 01/02/19 21:38 01/02/19 21:38 01/02/19 21:38 01/02/19 16:00 Intake and Output: 01/02/19 01/03/19 18:59 06:59 Intake Total 385 350 Balance 385 350 - Medications Medications: Current Medications Acetaminophen (Tylenol 325mg Tab) 650 mg PO Q6 PRN PRN Reason: Pain, moderate (4-7) Last Admin: 01/02/19 13:01 Dose: 650 mg Diphenhydramine HCl (Benadryl) 25 mg IVP ONCE PRN PRN Reason: PRIOR TO TRANSFUSION Last Admin: 01/02/19 13:02 Dose: 25 mg Docusate Sodium (Colace) 100 mg PO BID [facility] Last Admin: 01/02/19 17:29 Dose: 100 mg Furosemide (Lasix) 20 mg PO DAILY [facility] Last Admin: 01/02/19 09:57 Dose: 20 mg Guaifenesin (Robitussin) 100 mg PO Q4H PRN PRN Reason: Cough Vancomycin/Sodium Chloride (Vancomycin 1 Gm/Ns 200 Ml) 1 gm in 200 mls @ 133 mls/hr IVPB Q12H [facility]; Protocol Stop: 01/03/19 15:31 Last Admin: 01/02/19 15:42 Dose: 133 mls/hr Meropenem 1 gm/ Sodium (Chloride) 100 mls @ 100 mls/hr IVPB Q8H [facility]; Protocol Last Admin: 01/02/19 17:30 Dose: 100 mls/hr Influenza Virus Vaccine (Flucelvax Quad [id number] Syr) 60 mcg IM .ONCE ONE Stop: 01/03/19 10:01 Lisinopril (Zestril) 5 mg PO DAILY [facility] Last Admin: 01/02/19 09:56 Dose: 5 mg Ondansetron HCl (Zofran Inj) 4 mg IVP Q6H PRN PRN Reason: Nausea/Vomiting Pantoprazole Sodium (Protonix Ec Tab) 40 mg PO DAILY [facility] Last Admin: 01/02/19 09:56 Dose: 40 mg Pneumococcal Polyvalent Vaccine (Pneumovax 23 Vaccine) 0.5 ml IM .ONCE ONE Stop: 01/03/19 10:01 Promethazine HCl/Codeine (Phenergan/Codeine Oral Syrup) 5 ml PO Q6 PRN PRN Reason: Cough Last Admin: 01/02/19 17:37 Dose: 5 ml Saliva Substitute (First Magic Mouthwash) 5 ml PO Q6 [facility] Last Admin: 01/02/19 17:37 Dose: 5 ml Scopolamine (Transderm-Scop) 1 patch TD Q3D [facility] Last Admin: 01/02/19 11:23 Dose: Not Given Tamsulosin HCl (Flomax) 0.4 mg PO BID [facility] Last Admin: 01/02/19 17:30 Dose: 0.4 mg - Labs Labs: 01/02/19 08:05 01/02/19 08:05 PT 15.8 SECONDS (9.7-12.2) H 12/29/18 06:30 INR 1.4 12/29/18 06:30 APTT 23 SECONDS (21-34) 12/29/18 06:30 - Head Exam Head Exam: ATRAUMATIC - Eye Exam Eye Exam: Normal appearance - ENT Exam ENT Exam: Mucous Membranes Dry - Respiratory Exam Respiratory Exam: NORMAL BREATHING PATTERN - Cardiovascular Exam Cardiovascular Exam: +S1, +S2 - GI/Abdominal Exam GI & Abdominal Exam: Normal Bowel Sounds Assessment and Plan (1) 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
--- NOTE | 2019-01-02 22:18 | CP.PCM.PN ---
Subjective - Date & Time of Evaluation Date of Evaluation: 01/01/19 Time of Evaluation: 20:00 - Subjective Subjective: Breathing better. Objective - Vital Signs/Intake and Output Vital Signs (last 24 hours): Temp Pulse Resp BP Pulse Ox 98.6 F 94 H 20 128/65 98 01/02/19 21:38 01/02/19 21:38 01/02/19 21:38 01/02/19 21:38 01/02/19 16:00 Intake and Output: 01/02/19 01/03/19 18:59 06:59 Intake Total 385 350 Balance 385 350 - Medications Medications: Current Medications Acetaminophen (Tylenol 325mg Tab) 650 mg PO Q6 PRN PRN Reason: Pain, moderate (4-7) Last Admin: 01/02/19 13:01 Dose: 650 mg Diphenhydramine HCl (Benadryl) 25 mg IVP ONCE PRN PRN Reason: PRIOR TO TRANSFUSION Last Admin: 01/02/19 13:02 Dose: 25 mg Docusate Sodium (Colace) 100 mg PO BID [facility] Last Admin: 01/02/19 17:29 Dose: 100 mg Furosemide (Lasix) 20 mg PO DAILY [facility] Last Admin: 01/02/19 09:57 Dose: 20 mg Guaifenesin (Robitussin) 100 mg PO Q4H PRN PRN Reason: Cough Vancomycin/Sodium Chloride (Vancomycin 1 Gm/Ns 200 Ml) 1 gm in 200 mls @ 133 mls/hr IVPB Q12H [facility]; Protocol Stop: 01/03/19 15:31 Last Admin: 01/02/19 15:42 Dose: 133 mls/hr Meropenem 1 gm/ Sodium (Chloride) 100 mls @ 100 mls/hr IVPB Q8H [facility]; Protocol Last Admin: 01/02/19 17:30 Dose: 100 mls/hr Influenza Virus Vaccine (Flucelvax Quad [id number] Syr) 60 mcg IM .ONCE ONE Stop: 01/03/19 10:01 Lisinopril (Zestril) 5 mg PO DAILY [facility] Last Admin: 01/02/19 09:56 Dose: 5 mg Ondansetron HCl (Zofran Inj) 4 mg IVP Q6H PRN PRN Reason: Nausea/Vomiting Pantoprazole Sodium (Protonix Ec Tab) 40 mg PO DAILY [facility] Last Admin: 01/02/19 09:56 Dose: 40 mg Pneumococcal Polyvalent Vaccine (Pneumovax 23 Vaccine) 0.5 ml IM .ONCE ONE Stop: 01/03/19 10:01 Promethazine HCl/Codeine (Phenergan/Codeine Oral Syrup) 5 ml PO Q6 PRN PRN Reason: Cough Last Admin: 01/02/19 17:37 Dose: 5 ml Saliva Substitute (First Magic Mouthwash) 5 ml PO Q6 [facility] Last Admin: 01/02/19 17:37 Dose: 5 ml Scopolamine (Transderm-Scop) 1 patch TD Q3D [facility] Last Admin: 01/02/19 11:23 Dose: Not Given Tamsulosin HCl (Flomax) 0.4 mg PO BID [facility] Last Admin: 01/02/19 17:30 Dose: 0.4 mg - Labs Labs: 01/02/19 08:05 01/02/19 08:05 PT 15.8 SECONDS (9.7-12.2) H 12/29/18 06:30 INR 1.4 12/29/18 06:30 APTT 23 SECONDS (21-34) 12/29/18 06:30 - Head Exam Head Exam: ATRAUMATIC - Eye Exam Eye Exam: Normal appearance - ENT Exam ENT Exam: Mucous Membranes Dry - Respiratory Exam Respiratory Exam: NORMAL BREATHING PATTERN - Cardiovascular Exam Cardiovascular Exam: +S1, +S2 - GI/Abdominal Exam GI & Abdominal Exam: Normal Bowel Sounds Assessment and Plan (1) Pancytopenia Assessment & Plan: secondary to AML goal hgb > 9 and plt > 10,000 Status: Chronic (2) AML (acute myeloblastic leukemia) Assessment & Plan: on hypomethylating agent treatment Status: Chronic
[2019-01-03] MEDS: Mag&Al/Simet/Diphen/Lido 237 ML KIT PO SCH ×4 (00:03→17:47)
[2019-01-03] MEDS: Meropenem 1 GM in Sodium Chloride 0.9% 100 ML IVPB SCH ×3 (00:58→17:44)
[2019-01-03] MEDS: Vancomycin 1 gm/NS 200 ml 1 GM/200 ML BAG IVPB SCH ×2 (03:40→15:30)
[2019-01-03 07:47] LABS: EOS % 1.6 % (0.0-4.0); HEMOGLOBIN 7.3 g/dL (12.0-18.0); LYMPH # 0.1 K/uL (1.0-4.3); LYMPH % 81.1 % (20.0-40.0); MEAN CELL VOLUME 90.9 fL (80.0-94.0); MEAN CORPUSCULAR HEMOGLOBIN 30.6 pg (27.0-31.0); MEAN CORPUSCULAR HGB CONC 33.6 g/dL (33.0-37.0); MEAN PLATELET VOLUME 8.1 fL (7.2-11.7); MONO % 15.1 % (0.0-10.0); NEUT % 2.2 % (50.0-75.0); NRBC % 1.7 % (0.0-2.0); RBC 2.39 Mil/uL (4.40-5.90); RED CELL DISTRIBUTION WIDTH 12.9 % (11.5-14.5)
[2019-01-03 07:52] LABS: WHITE BLOOD COUNT 0.2 K/uL (4.8-10.8)
[2019-01-03 08:09] LABS: ALB/GLOB RATIO 0.8 (1.0-2.1); ALBUMIN 1.7 g/dL (3.5-5.0); ALT/SGPT 28 U/L (21-72); AST/SGOT 12 U/L (17-59); BLOOD UREA NITROGEN 23 mg/dL (9-20); CALCIUM 7.7 mg/dl (8.6-10.4); GFR NON-AFRICAN AMERICAN > 60
--- NOTE | 2019-01-03 09:02 | CP.PCM.PN ---
Subjective - Date & Time of Evaluation Date of Evaluation: 01/03/19 Time of Evaluation: 08:59 - Subjective Subjective: Radha Masterson PGY1 Progress Note for Dr. Montoya Pt was examined at bedside this morning. He reports productive cough that is worse at night. He reports resolved abdominal pain. He denies chest pain, shortness of breath, nausea, vomiting, diarrhea, constipation, dysuria. Objective - Vital Signs/Intake and Output Vital Signs (last 24 hours): Temp Pulse Resp BP Pulse Ox 98.2 F 96 H 20 138/70 96 01/03/19 07:45 01/03/19 07:45 01/03/19 07:45 01/03/19 07:45 01/03/19 07:45 Intake and Output: 01/03/19 01/03/19 06:59 18:59 Intake Total 1490 Output Total 250 Balance 1240 - Medications Medications: Current Medications Acetaminophen (Tylenol 325mg Tab) 650 mg PO Q6 PRN PRN Reason: Pain, moderate (4-7) Last Admin: 01/02/19 13:01 Dose: 650 mg Diphenhydramine HCl (Benadryl) 25 mg IVP ONCE PRN PRN Reason: PRIOR TO TRANSFUSION Last Admin: 01/02/19 13:02 Dose: 25 mg Docusate Sodium (Colace) 100 mg PO BID [facility] Last Admin: 01/02/19 17:29 Dose: 100 mg Furosemide (Lasix) 20 mg PO DAILY [facility] Last Admin: 01/02/19 09:57 Dose: 20 mg Guaifenesin (Robitussin) 100 mg PO Q4H PRN PRN Reason: Cough Guaifenesin (Mucinex La) 600 mg PO BID [facility] Vancomycin/Sodium Chloride (Vancomycin 1 Gm/Ns 200 Ml) 1 gm in 200 mls @ 133 mls/hr IVPB Q12H [facility]; Protocol Stop: 01/03/19 15:31 Last Admin: 01/03/19 03:40 Dose: 133 mls/hr Meropenem 1 gm/ Sodium (Chloride) 100 mls @ 100 mls/hr IVPB Q8H [facility]; Protocol Last Admin: 01/03/19 08:41 Dose: 100 mls/hr Influenza Virus Vaccine (Flucelvax Quad [id number] Syr) 60 mcg IM .ONCE ONE Stop: 01/03/19 10:01 Lisinopril (Zestril) 5 mg PO DAILY [facility] Last Admin: 01/02/19 09:56 Dose: 5 mg Ondansetron HCl (Zofran Inj) 4 mg IVP Q6H PRN PRN Reason: Nausea/Vomiting Pantoprazole Sodium (Protonix Ec Tab) 40 mg PO DAILY [facility] Last Admin: 01/02/19 09:56 Dose: 40 mg Pneumococcal Polyvalent Vaccine (Pneumovax 23 Vaccine) 0.5 ml IM .ONCE ONE Stop: 01/03/19 10:01 Promethazine HCl/Codeine (Phenergan/Codeine Oral Syrup) 5 ml PO Q6 PRN PRN Reason: Cough Last Admin: 01/02/19 17:37 Dose: 5 ml Saliva Substitute (First Magic Mouthwash) 5 ml PO Q6 [facility] Last Admin: 01/03/19 06:06 Dose: 5 ml Scopolamine (Transderm-Scop) 1 patch TD Q3D [facility] Last Admin: 01/02/19 11:23 Dose: Not Given Tamsulosin HCl (Flomax) 0.4 mg PO BID [facility] Last Admin: 01/02/19 17:30 Dose: 0.4 mg - Labs Labs: 01/03/19 07:19 01/03/19 07:19 PT 15.8 SECONDS (9.7-12.2) H 12/29/18 06:30 INR 1.4 12/29/18 06:30 APTT 23 SECONDS (21-34) 12/29/18 06:30 - Additional Findings Additional findings: - Head Exam Head Exam: ATRAUMATIC, NORMAL INSPECTION - Eye Exam Eye Exam: EOMI, Normal appearance, PERRL Pupil Exam: NORMAL ACCOMODATION - ENT Exam ENT Exam: Mucous Membranes Moist, Normal Oropharynx - Respiratory Exam Respiratory Exam: Clear to Ausculation Bilateral, NORMAL BREATHING PATTERN. absent: Prolonged Expiratory Phase, Respiratory Distress - Cardiovascular Exam Cardiovascular Exam: REGULAR RHYTHM, +S1, +S2 - GI/Abdominal Exam GI & Abdominal Exam: Soft, Normal Bowel Sounds. absent: Hyperactive Bowel Sounds - Neurological Exam Neurological Exam: Alert, Awake, Oriented x3 - Psychiatric Exam Psychiatric exam: Normal Affect, Normal Mood. 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 Admitted for pleural effusions. Plan: AML, currently on chemo Oncologist Dr. Bobby consulted, help appreciated Received 3rd dose of Decitabine 12/24/18 Hb/Hct 7.3/21.7 Platelets 14 today 2 UNITS platelets transfusion -01/02/19 2 units PRBCs and 2 units platelets transfusion received- 12/30/18 Neutropenic precautions. Zofran 4mg Q6 PRN Healthcare Associated Pneumonia, with left sided Infiltrates Right sided Pleural effusion Cough Hosp[facility] [employer]er Dr. Thurston consulted, help appreciated CXR 01/03: no significant change. multifocal opacities and probable small b/l pleural effusion. CT chest: No CTA evidence for acute pulmonary embolism.Dense consolidation with air bronchogram in the left upper and lower lobes. Moderate right and small left pleural effusions. Multiple variable-sized parenchymal and subpleural nodules in the right lung, the largest in the right middle lobe measures 1.7 x 1.3 cm. These are nonspecific and could be infectious, inflammatory or neoplastic in etiology. Short-term interval follow-up is advised. Enlarged precarinal mediastinal lymph nodes, the largest measures 1.3 cm in transverse diameter. Mild cardiomegaly and small pericardial effusion. Saturating well on NC Blood cultures negative to date Sputum culture: Staph. aureus only resistant to PCN ID Dr. Ferrari consulted, help appreciated Vancomycin 1g IV Q12 started 12/29/18 Merrem 500mg Q8 started 12/29/18 Negative legionella, strep pneumonia, mycoplasma D-dimer 2156 Negative for flu Lasix 20mg PO daily Robitussin Scopolamine patch Mucinex 600mg PO BID follow up fungal beta glucan studies follow up quantiferon gold History of BPH Flomax 0.4mg PO BID History of HTN Lisinopril 5mg PO daily Hold for low blood pressure Prophylaxis: Protonix SCDs PT/OT Full code Case discussed with Dr. Montoya
[2019-01-03] MEDS: guaiFENesin 600 mg ER Tab PO SCH ×2 (09:29→17:43)
[2019-01-03] MEDS: Pantoprazole 40 mg EC Tab PO SCH (09:29)
[2019-01-03] MEDS ORDERED: Pneumococcal 23-Valent Vaccine IM ONE (10:00)
[2019-01-03] MEDS ORDERED: Influenza Vaccine 60 mcg/0.5 mL SYR (4YR UP) IM ONE (10:00)
--- NOTE | 2019-01-03 10:54 | RAD ---
Date of service: 01/02/2019 HISTORY: Shortness of breath COMPARISON: 01/02/2019 FINDINGS: LUNGS: Extensive consolidation superior half left hemithorax. Probable bulla left apex. Left pleural effusion unchanged. Possible consolidation at left base. Possible very small right pleural effusion. Hazy opacity at right base may reflect dependent pleural fluid or infiltrate. No pneumothorax. PLEURA: As above CARDIOVASCULAR: There is atherosclerotic calcification of the thoracic aorta. Normal cardiac size. No pulmonary vascular congestion. OSSEOUS STRUCTURES: No significant abnormalities. VISUALIZED UPPER ABDOMEN: Normal. OTHER FINDINGS: None. IMPRESSION: No significant change from 01/02/2019. Multifocal opacities and probable small bilateral pleural effusion.
--- NOTE | 2019-01-03 17:57 | CP.PCM.PN ---
Subjective - Date & Time of Evaluation Date of Evaluation: 01/03/19 Time of Evaluation: 11:00 - Subjective Subjective: Patient seen and examined at bedside. Still complains of cough with blood-tinged sputum; feels the same. Afebrile. Physical Exam Gen: AAOx3 Cardio: RRR, no murmur Pulm: Decreased breath sounds Abd: Soft, non-distended A/P Pneumonia - Cough with copious amounts of blood-tinged sputum - Continue meropenem - Consider starting antifungal medication - Repeat CXR - CXR 01/02 shows left pleural effusion, left upper lobe infiltrate Pleural Effusion, left Objective - Vital Signs/Intake and Output Vital Signs (last 24 hours): Temp Pulse Resp BP Pulse Ox 99.9 F H 98 H 18 108/59 L 98 01/03/19 16:11 01/03/19 16:11 01/03/19 16:11 01/03/19 16:11 01/03/19 16:11 Intake and Output: 01/03/19 01/03/19 06:59 18:59 Intake Total 1490 330 Output Total 250 Balance 1240 330 - Medications Medications: Current Medications Acetaminophen (Tylenol 325mg Tab) 650 mg PO Q6 PRN PRN Reason: Pain, moderate (4-7) Last Admin: 01/02/19 13:01 Dose: 650 mg Acetaminophen (Tylenol 325mg Tab) 650 mg PO ONCE PRN PRN Reason: pre med Last Admin: 01/03/19 14:39 Dose: 650 mg Diphenhydramine HCl (Benadryl) 25 mg IVP ONCE PRN PRN Reason: PRIOR TO TRANSFUSION Last Admin: 01/02/19 13:02 Dose: 25 mg Diphenhydramine HCl (Benadryl) 25 mg PO ONCE PRN PRN Reason: pre med Last Admin: 01/03/19 14:39 Dose: 25 mg Docusate Sodium (Colace) 100 mg PO BID [facility] Last Admin: 01/03/19 17:43 Dose: 100 mg Furosemide (Lasix) 20 mg PO DAILY [facility] Last Admin: 01/03/19 09:28 Dose: 20 mg Furosemide (Lasix) 20 mg IVP ONCE PRN PRN Reason: post transfusion Guaifenesin (Robitussin) 100 mg PO Q4H PRN PRN Reason: Cough Guaifenesin (Mucinex La) 600 mg PO BID [facility] Last Admin: 01/03/19 17:43 Dose: 600 mg Meropenem 1 gm/ Sodium (Chloride) 100 mls @ 100 mls/hr IVPB Q8H [facility]; Protocol Last Admin: 01/03/19 17:44 Dose: Not Given Lisinopril (Zestril) 5 mg PO DAILY [facility] Last Admin: 01/03/19 09:29 Dose: 5 mg Ondansetron HCl (Zofran Inj) 4 mg IVP Q6H PRN PRN Reason: Nausea/Vomiting Pantoprazole Sodium (Protonix Ec Tab) 40 mg PO DAILY [facility] Last Admin: 01/03/19 09:29 Dose: 40 mg Saliva Substitute (First Magic Mouthwash) 5 ml PO Q6 [facility] Last Admin: 01/03/19 17:47 Dose: 5 ml Scopolamine (Transderm-Scop) 1 patch TD Q3D [facility] Last Admin: 01/02/19 11:23 Dose: Not Given Tamsulosin HCl (Flomax) 0.4 mg PO BID [facility] Last Admin: 01/03/19 17:43 Dose: 0.4 mg - Labs Labs: 01/03/19 07:19 01/03/19 07:19 PT 15.8 SECONDS (9.7-12.2) H 12/29/18 06:30 INR 1.4 12/29/18 06:30 APTT 23 SECONDS (21-34) 12/29/18 06:30 Assessment and Plan (1) Pneumonia Status: Acute (2) Pleural effusion, left Status: Acute
[2019-01-03] MEDS ORDERED: Vancomycin 1 gm/NS 200 ml 1 GM/200 ML BAG IVPB STA (21:41)
[2019-01-04] MEDS: Mag&Al/Simet/Diphen/Lido 237 ML KIT PO SCH ×4 (00:06→17:16)
[2019-01-04] MEDS: Meropenem 1 GM in Sodium Chloride 0.9% 100 ML IVPB SCH ×3 (01:03→17:34)
[2019-01-04 08:24] LABS: EOS % 0.6 % (0.0-4.0); LYMPH # 0.2 K/uL (1.0-4.3); LYMPH % 68.3 % (20.0-40.0); MEAN CELL VOLUME 91.7 fL (80.0-94.0); MEAN CORPUSCULAR HEMOGLOBIN 30.8 pg (27.0-31.0); MEAN CORPUSCULAR HGB CONC 33.6 g/dL (33.0-37.0); MEAN PLATELET VOLUME 8.1 fL (7.2-11.7); MONO # 0.1 K/uL (0.0-0.8); MONO % 27.4 % (0.0-10.0); NEUT % 3.7 % (50.0-75.0); NRBC % 0.6 % (0.0-2.0); RBC 3.06 Mil/uL (4.40-5.90)
[2019-01-04 08:27] LABS: HEMOGLOBIN 9.4 g/dL (12.0-18.0); WHITE BLOOD COUNT 0.3 K/uL (4.8-10.8)
[2019-01-04] MEDS ORDERED: Sodium Chloride 0.9% 1,000 ML IV SCH (09:30)
[2019-01-04] MEDS: guaiFENesin 600 mg ER Tab PO SCH ×2 (10:59→17:17)
[2019-01-04] MEDS: Pantoprazole 40 mg EC Tab PO SCH (10:59)
[2019-01-04] MEDS: Vancomycin 1 gm/NS 200 ml 1 GM/200 ML BAG IVPB SCH ×2 (11:00→21:04)
--- NOTE | 2019-01-04 11:12 | CP.PCM.PN ---
Subjective - Date & Time of Evaluation Date of Evaluation: 01/04/19 Time of Evaluation: 11:08 - Subjective Subjective: Radha Masterson PGY1 Progress Note for Dr. Montoya Pt was examined at bedside this morning. He reports poor appetite and only moderate PO water intake. He continues to cough. Objective - Vital Signs/Intake and Output Vital Signs (last 24 hours): Temp Pulse Resp BP Pulse Ox 100.4 F H 95 H 20 115/62 95 01/04/19 07:00 01/04/19 07:00 01/04/19 07:00 01/04/19 11:00 01/04/19 07:00 Intake and Output: 01/04/19 01/04/19 06:59 18:59 Intake Total 860 Output Total 300 Balance 560 - Medications Medications: Current Medications Acetaminophen (Tylenol 325mg Tab) 650 mg PO Q6 PRN PRN Reason: Pain, moderate (4-7) Last Admin: 01/04/19 08:09 Dose: 650 mg Acetaminophen (Tylenol 325mg Tab) 650 mg PO ONCE PRN PRN Reason: pre med Last Admin: 01/03/19 14:39 Dose: 650 mg Diphenhydramine HCl (Benadryl) 25 mg IVP ONCE PRN PRN Reason: PRIOR TO TRANSFUSION Last Admin: 01/02/19 13:02 Dose: 25 mg Diphenhydramine HCl (Benadryl) 25 mg PO ONCE PRN PRN Reason: pre med Last Admin: 01/03/19 14:39 Dose: 25 mg Docusate Sodium (Colace) 100 mg PO BID [facility] Last Admin: 01/04/19 10:59 Dose: 100 mg Furosemide (Lasix) 20 mg PO DAILY [facility] Last Admin: 01/04/19 11:00 Dose: 20 mg Furosemide (Lasix) 20 mg IVP ONCE PRN PRN Reason: post transfusion Last Admin: 01/03/19 19:15 Dose: 20 mg Guaifenesin (Mucinex La) 600 mg PO BID [facility] Last Admin: 01/04/19 10:59 Dose: 600 mg Meropenem 1 gm/ Sodium (Chloride) 100 mls @ 100 mls/hr IVPB Q8H [facility]; Protocol Last Admin: 01/04/19 08:08 Dose: 100 mls/hr Vancomycin/Sodium Chloride (Vancomycin 1 Gm/Ns 200 Ml) 1 gm in 200 mls @ 133 mls/hr IVPB Q12H [facility]; Protocol Stop: 01/09/19 10:01 Last Admin: 01/04/19 11:00 Dose: 133 mls/hr Lisinopril (Zestril) 5 mg PO DAILY [facility] Last Admin: 01/04/19 10:59 Dose: 5 mg Ondansetron HCl (Zofran Inj) 4 mg IVP Q6H PRN PRN Reason: Nausea/Vomiting Pantoprazole Sodium (Protonix Ec Tab) 40 mg PO DAILY [facility] Last Admin: 01/04/19 10:59 Dose: 40 mg Saliva Substitute (First Magic Mouthwash) 5 ml PO Q6 [facility] Last Admin: 01/04/19 06:08 Dose: 5 ml Scopolamine (Transderm-Scop) 1 patch TD Q3D [facility] Last Admin: 01/02/19 11:23 Dose: Not Given Tamsulosin HCl (Flomax) 0.4 mg PO BID [facility] Last Admin: 01/04/19 11:00 Dose: 0.4 mg - Labs Labs: 01/04/19 08:07 01/03/19 07:19 PT 15.8 SECONDS (9.7-12.2) H 12/29/18 06:30 INR 1.4 12/29/18 06:30 APTT 23 SECONDS (21-34) 12/29/18 06:30 - Additional Findings Additional findings: - Head Exam Head Exam: ATRAUMATIC, NORMAL INSPECTION - Eye Exam Eye Exam: EOMI, Normal appearance, PERRL Pupil Exam: NORMAL ACCOMODATION - ENT Exam ENT Exam: Mucous Membranes Moist, Normal Oropharynx - Respiratory Exam Respiratory Exam: Clear to Ausculation Bilateral, NORMAL BREATHING PATTERN. absent: Prolonged Expiratory Phase, Respiratory Distress - Cardiovascular Exam Cardiovascular Exam: REGULAR RHYTHM, +S1, +S2 - GI/Abdominal Exam GI & Abdominal Exam: Soft, Normal Bowel Sounds. absent: Hyperactive Bowel Sounds - Neurological Exam Neurological Exam: Alert, Awake, Oriented x3 - Psychiatric Exam Psychiatric exam: Normal Affect, Normal Mood. 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 Admitted for pleural effusions. Plan: AML, currently on chemo Oncologist Dr. Bobby consulted, help appreciated Received 3rd dose of Decitabine 12/24/18 Hb/Hct 9.4/28.1 Platelets 12 today 1u PRBC transfusion- 01/03/19 2 UNITS platelets transfusion -01/02/19 2 units PRBCs and 2 units platelets transfusion received- 12/30/18 Neutropenic precautions. Zofran 4mg Q6 PRN Healthcare Associated Pneumonia, with left sided Infiltrates Right sided Pleural effusion Cough Low grade fever today 100.[address] Thurston consulted, help appreciated CXR 01/03: no significant change. multifocal opacities and probable small b/l pleural effusion. CT chest: No CTA evidence for acute pulmonary embolism.Dense consolidation with air bronchogram in the left upper and lower lobes. Moderate right and small left pleural effusions. Multiple variable-sized parenchymal and subpleural nodules in the right lung, the largest in the right middle lobe measures 1.7 x 1.3 cm. These are nonspecific and could be infectious, inflammatory or neoplastic in etiology. Short-term interval follow-up is advised. Enlarged precarinal mediastinal lymph nodes, the largest measures 1.3 cm in transverse diameter. Mild cardiomegaly and small pericardial effusion. Saturating well on NC Blood cultures negative to date Sputum culture: Staph. aureus only resistant to PCN ID Dr. Ferrari consulted, help appreciated Vancomycin 1g IV Q12 started 12/29/18 Merem 500mg Q8 started 12/29/18 Negative legionella, strep pneumonia, mycoplasma D-dimer 2156 Negative for flu beta glucan studies negative Lasix 20mg PO daily Robitussin Scopolamine patch Mucinex 600mg PO BID follow up quantiferon gold rpt BCx, UCx, UA History of BPH Flomax 0.4mg PO BID History of HTN Lisinopril 5mg PO daily Hold for low blood pressure Poor Nutrition encourage PO intake Fiberglass Technician consulted, recs apprecitated Low Microbial Diet Ensure Enlive TID Prophylaxis: Protonix SCDs PT/OT Full code Case discussed with Dr. Montoya
[2019-01-04 11:47] LABS: ALB/GLOB RATIO 0.7 (1.0-2.1); ALBUMIN 1.7 g/dL (3.5-5.0); ALT/SGPT 27 U/L (21-72); AST/SGOT 13 U/L (17-59); BLOOD UREA NITROGEN 26 mg/dL (9-20); CALCIUM 7.8 mg/dl (8.6-10.4); GFR NON-AFRICAN AMERICAN > 60
[2019-01-04 13:42] LABS: URINE BACTERIA RARE (<OCC); URINE BILIRUBIN NEGATIVE (NEGATIVE); URINE BLOOD 1+ (NEGATIVE); URINE CLARITY Hazy (Clear); URINE COLOR Amber (YELLOW); URINE GLUCOSE (UA) NORMAL (Normal); URINE LEUKOCYTE ESTERASE NEG Leu/uL (Negative); URINE PROTEIN 1+ mg/dL (NEGATIVE); URINE UROBILINOGEN NORMAL mg/dL (0.2-1.0)
[2019-01-04] MEDS ORDERED: Potassium Chloride 20 mEq/15 ml LIQ UD PO ONE (16:00)
--- NOTE | 2019-01-04 17:39 | CP.PCM.PN ---
Subjective - Date & Time of Evaluation Date of Evaluation: 01/04/19 Time of Evaluation: 11:20 - Subjective Subjective: Patient seen and examined at bedside. Continues to complain of cough with sputum but it is white and no longer bloody. Denies chest pain, nausea, vomiting. Patient is febrile with temp of 100.4 as of 01/04 at 7:00. Physical Exam Gen: AAOx3 Cardio: RRR, no murmur Pulm: Decreased breath sounds Abd: Soft, non-distended A/P Pneumonia - Cough with copious amounts of blood-tinged sputum - CXR 01/03 shows no significant changes. Multifocal opacities and probable small b/l pleural effusion - Continue meropenem - Consider starting antifungal medication - Repeat CXR Pleural Effusion Objective - Vital Signs/Intake and Output Vital Signs (last 24 hours): Temp Pulse Resp BP Pulse Ox 98.7 F 121 H 20 113/65 95 01/04/19 16:11 01/04/19 16:11 01/04/19 16:11 01/04/19 16:11 01/04/19 16:11 Intake and Output: 01/04/19 01/04/19 06:59 18:59 Intake Total 860 Output Total 300 Balance 560 - Medications Medications: Current Medications Acetaminophen (Tylenol 325mg Tab) 650 mg PO Q6 PRN PRN Reason: Pain, moderate (4-7) Last Admin: 01/04/19 08:09 Dose: 650 mg Acetaminophen (Tylenol 325mg Tab) 650 mg PO ONCE PRN PRN Reason: pre med Last Admin: 01/03/19 14:39 Dose: 650 mg Diphenhydramine HCl (Benadryl) 25 mg IVP ONCE PRN PRN Reason: PRIOR TO TRANSFUSION Last Admin: 01/02/19 13:02 Dose: 25 mg Diphenhydramine HCl (Benadryl) 25 mg PO ONCE PRN PRN Reason: pre med Last Admin: 01/03/19 14:39 Dose: 25 mg Docusate Sodium (Colace) 100 mg PO BID [facility] Last Admin: 01/04/19 10:59 Dose: 100 mg Furosemide (Lasix) 20 mg PO DAILY [facility] Last Admin: 01/04/19 11:00 Dose: 20 mg Furosemide (Lasix) 20 mg IVP ONCE PRN PRN Reason: post transfusion Last Admin: 01/03/19 19:15 Dose: 20 mg Guaifenesin (Mucinex La) 600 mg PO BID [facility] Last Admin: 01/04/19 17:17 Dose: 600 mg Meropenem 1 gm/ Sodium (Chloride) 100 mls @ 100 mls/hr IVPB Q8H [facility]; Protocol Last Admin: 01/04/19 17:34 Dose: 100 mls/hr Vancomycin/Sodium Chloride (Vancomycin 1 Gm/Ns 200 Ml) 1 gm in 200 mls @ 133 mls/hr IVPB Q12H [facility]; Protocol Stop: 01/09/19 10:01 Last Admin: 01/04/19 11:00 Dose: 133 mls/hr Lisinopril (Zestril) 5 mg PO DAILY [facility] Last Admin: 01/04/19 10:59 Dose: 5 mg Ondansetron HCl (Zofran Inj) 4 mg IVP Q6H PRN PRN Reason: Nausea/Vomiting Pantoprazole Sodium (Protonix Ec Tab) 40 mg PO DAILY [facility] Last Admin: 01/04/19 10:59 Dose: 40 mg Saliva Substitute (First Magic Mouthwash) 5 ml PO Q6 [facility] Last Admin: 01/04/19 17:16 Dose: 5 ml Scopolamine (Transderm-Scop) 1 patch TD Q3D [facility] Last Admin: 01/02/19 11:23 Dose: Not Given Tamsulosin HCl (Flomax) 0.4 mg PO BID [facility] Last Admin: 01/04/19 17:17 Dose: 0.4 mg - Labs Labs: 01/04/19 08:07 01/04/19 11:26 PT 15.8 SECONDS (9.7-12.2) H 12/29/18 06:30 INR 1.4 12/29/18 06:30 APTT 23 SECONDS (21-34) 12/29/18 06:30 Assessment and Plan (1) Pneumonia Status: Acute (2) Pleural effusion, left Status: Acute
--- NOTE | 2019-01-04 23:18 | CP.PCM.PN ---
Subjective - Date & Time of Evaluation Date of Evaluation: 01/03/19 Time of Evaluation: 16:00 - Subjective Subjective: Has wheezing Objective - Vital Signs/Intake and Output Vital Signs (last 24 hours): Temp Pulse Resp BP Pulse Ox 101.7 F H 121 H 20 113/65 95 01/04/19 21:04 01/04/19 16:11 01/04/19 16:11 01/04/19 16:11 01/04/19 16:11 - Medications Medications: Current Medications Acetaminophen (Tylenol 325mg Tab) 650 mg PO Q6 PRN PRN Reason: Pain, moderate (4-7) Last Admin: 01/04/19 21:04 Dose: 650 mg Acetaminophen (Tylenol 325mg Tab) 650 mg PO ONCE PRN PRN Reason: pre med Last Admin: 01/03/19 14:39 Dose: 650 mg Diphenhydramine HCl (Benadryl) 25 mg IVP ONCE PRN PRN Reason: PRIOR TO TRANSFUSION Last Admin: 01/02/19 13:02 Dose: 25 mg Diphenhydramine HCl (Benadryl) 25 mg PO ONCE PRN PRN Reason: pre med Last Admin: 01/03/19 14:39 Dose: 25 mg Docusate Sodium (Colace) 100 mg PO BID [facility] Last Admin: 01/04/19 18:00 Dose: Not Given Furosemide (Lasix) 20 mg PO DAILY [facility] Last Admin: 01/04/19 11:00 Dose: 20 mg Furosemide (Lasix) 20 mg IVP ONCE PRN PRN Reason: post transfusion Last Admin: 01/03/19 19:15 Dose: 20 mg Guaifenesin (Mucinex La) 600 mg PO BID [facility] Last Admin: 01/04/19 17:17 Dose: 600 mg Meropenem 1 gm/ Sodium (Chloride) 100 mls @ 100 mls/hr IVPB Q8H [facility]; Protocol Last Admin: 01/04/19 17:34 Dose: 100 mls/hr Vancomycin/Sodium Chloride (Vancomycin 1 Gm/Ns 200 Ml) 1 gm in 200 mls @ 133 mls/hr IVPB Q12H [facility]; Protocol Stop: 01/09/19 10:01 Last Admin: 01/04/19 21:04 Dose: 133 mls/hr Micafungin Sodium 100 mg/ (Sodium Chloride) 100 mls @ 100 mls/hr IV Q24H [facility]; Protocol Lisinopril (Zestril) 5 mg PO DAILY [facility] Last Admin: 01/04/19 10:59 Dose: 5 mg Ondansetron HCl (Zofran Inj) 4 mg IVP Q6H PRN PRN Reason: Nausea/Vomiting Pantoprazole Sodium (Protonix Ec Tab) 40 mg PO DAILY [facility] Last Admin: 01/04/19 10:59 Dose: 40 mg Saliva Substitute (First Magic Mouthwash) 5 ml PO Q6 [facility] Last Admin: 01/04/19 17:16 Dose: 5 ml Scopolamine (Transderm-Scop) 1 patch TD Q3D [facility] Last Admin: 01/02/19 11:23 Dose: Not Given Tamsulosin HCl (Flomax) 0.4 mg PO BID [facility] Last Admin: 01/04/19 17:17 Dose: 0.4 mg - Labs Labs: 01/04/19 08:07 01/04/19 11:26 PT 15.8 SECONDS (9.7-12.2) H 12/29/18 06:30 INR 1.4 12/29/18 06:30 APTT 23 SECONDS (21-34) 12/29/18 06:30 - Constitutional Appears: Cachectic - ENT Exam ENT Exam: Mucous Membranes Dry - Respiratory Exam Respiratory Exam: Decreased Breath Sounds - Cardiovascular Exam Cardiovascular Exam: +S1, +S2 - GI/Abdominal Exam GI & Abdominal Exam: Normal Bowel Sounds Assessment and Plan (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
--- NOTE | 2019-01-04 23:19 | CP.PCM.PN ---
Subjective - Date & Time of Evaluation Date of Evaluation: 01/04/19 Time of Evaluation: 18:00 - Subjective Subjective: Has cough, more fatigued today. Objective - Vital Signs/Intake and Output Vital Signs (last 24 hours): Temp Pulse Resp BP Pulse Ox 101.7 F H 121 H 20 113/65 95 01/04/19 21:04 01/04/19 16:11 01/04/19 16:11 01/04/19 16:11 01/04/19 16:11 - Medications Medications: Current Medications Acetaminophen (Tylenol 325mg Tab) 650 mg PO Q6 PRN PRN Reason: Pain, moderate (4-7) Last Admin: 01/04/19 21:04 Dose: 650 mg Acetaminophen (Tylenol 325mg Tab) 650 mg PO ONCE PRN PRN Reason: pre med Last Admin: 01/03/19 14:39 Dose: 650 mg Diphenhydramine HCl (Benadryl) 25 mg IVP ONCE PRN PRN Reason: PRIOR TO TRANSFUSION Last Admin: 01/02/19 13:02 Dose: 25 mg Diphenhydramine HCl (Benadryl) 25 mg PO ONCE PRN PRN Reason: pre med Last Admin: 01/03/19 14:39 Dose: 25 mg Docusate Sodium (Colace) 100 mg PO BID [facility] Last Admin: 01/04/19 18:00 Dose: Not Given Furosemide (Lasix) 20 mg PO DAILY [facility] Last Admin: 01/04/19 11:00 Dose: 20 mg Furosemide (Lasix) 20 mg IVP ONCE PRN PRN Reason: post transfusion Last Admin: 01/03/19 19:15 Dose: 20 mg Guaifenesin (Mucinex La) 600 mg PO BID [facility] Last Admin: 01/04/19 17:17 Dose: 600 mg Meropenem 1 gm/ Sodium (Chloride) 100 mls @ 100 mls/hr IVPB Q8H [facility]; Protocol Last Admin: 01/04/19 17:34 Dose: 100 mls/hr Vancomycin/Sodium Chloride (Vancomycin 1 Gm/Ns 200 Ml) 1 gm in 200 mls @ 133 mls/hr IVPB Q12H [facility]; Protocol Stop: 01/09/19 10:01 Last Admin: 01/04/19 21:04 Dose: 133 mls/hr Micafungin Sodium 100 mg/ (Sodium Chloride) 100 mls @ 100 mls/hr IV Q24H [facility]; Protocol Lisinopril (Zestril) 5 mg PO DAILY [facility] Last Admin: 01/04/19 10:59 Dose: 5 mg Ondansetron HCl (Zofran Inj) 4 mg IVP Q6H PRN PRN Reason: Nausea/Vomiting Pantoprazole Sodium (Protonix Ec Tab) 40 mg PO DAILY [facility] Last Admin: 01/04/19 10:59 Dose: 40 mg Saliva Substitute (First Magic Mouthwash) 5 ml PO Q6 [facility] Last Admin: 01/04/19 17:16 Dose: 5 ml Scopolamine (Transderm-Scop) 1 patch TD Q3D [facility] Last Admin: 01/02/19 11:23 Dose: Not Given Tamsulosin HCl (Flomax) 0.4 mg PO BID [facility] Last Admin: 01/04/19 17:17 Dose: 0.4 mg - Labs Labs: 01/04/19 08:07 01/04/19 11:26 PT 15.8 SECONDS (9.7-12.2) H 12/29/18 06:30 INR 1.4 12/29/18 06:30 APTT 23 SECONDS (21-34) 12/29/18 06:30 - Head Exam Head Exam: ATRAUMATIC - Eye Exam Eye Exam: Normal appearance - ENT Exam ENT Exam: Mucous Membranes Dry - Respiratory Exam Respiratory Exam: Decreased Breath Sounds - Cardiovascular Exam Cardiovascular Exam: +S1, +S2 - GI/Abdominal Exam GI & Abdominal Exam: Normal Bowel Sounds Assessment and Plan (1) Pancytopenia Assessment & Plan: secondary to AML transfusion support Status: Chronic (2) AML (acute myeloblastic leukemia) Assessment & Plan: outpatient decitabine Status: Chronic
[2019-01-05] MEDS: Micafungin 100 MG in Sodium Chloride 0.9% 100 ML IV SCH ×2 (00:44→23:56)
[2019-01-05] MEDS: Mag&Al/Simet/Diphen/Lido 237 ML KIT PO SCH ×2 (00:44→11:41)
[2019-01-05] MEDS: Meropenem 1 GM in Sodium Chloride 0.9% 100 ML IVPB SCH ×3 (01:41→18:22)
[2019-01-05 07:54] LABS: EOS % 0.5 % (0.0-4.0); HEMOGLOBIN 8.7 g/dL (12.0-18.0); LYMPH # 0.1 K/uL (1.0-4.3); MEAN CELL VOLUME 91.2 fL (80.0-94.0); MEAN CORPUSCULAR HEMOGLOBIN 30.2 pg (27.0-31.0); MEAN CORPUSCULAR HGB CONC 33.1 g/dL (33.0-37.0); MEAN PLATELET VOLUME 8.5 fL (7.2-11.7); MONO % 25.8 % (0.0-10.0); NEUT % 2.7 % (50.0-75.0); NRBC % 1.4 % (0.0-2.0); RBC 2.88 Mil/uL (4.40-5.90)
[2019-01-05 07:56] LABS: ALB/GLOB RATIO 0.7 (1.0-2.1); ALBUMIN 1.7 g/dL (3.5-5.0); ALT/SGPT 23 U/L (21-72); AST/SGOT 14 U/L (17-59); BLOOD UREA NITROGEN 28 mg/dL (9-20); CALCIUM 7.7 mg/dl (8.6-10.4); GFR NON-AFRICAN AMERICAN > 60
[2019-01-05 07:58] LABS: WHITE BLOOD COUNT 0.2 K/uL (4.8-10.8)
[2019-01-05] MEDS: guaiFENesin 600 mg ER Tab PO SCH ×2 (09:32→18:23)
[2019-01-05] MEDS: Pantoprazole 40 mg EC Tab PO SCH (09:33)
--- NOTE | 2019-01-05 09:41 | CP.PCM.PN ---
<Radha Masterson - Last Filed: 01/05/19 12:53> Subjective - Date & Time of Evaluation Date of Evaluation: 01/05/19 Time of Evaluation: 09:39 - Subjective Subjective: Radha Masterson PGY1 Progress Note for Dr. Montoya Pt was examined at beside this morning. He reports improved cough. As per daughter at bedside, pt is not able to eat solid food adequately however has been drinking the Ensure and small amounts of water and juice. Objective - Vital Signs/Intake and Output Vital Signs (last 24 hours): Temp Pulse Resp BP Pulse Ox 98.8 F 87 20 105/70 98 01/05/19 08:03 01/05/19 08:03 01/05/19 08:03 01/05/19 09:32 01/05/19 08:03 Intake and Output: 01/05/19 01/05/19 06:59 18:59 Intake Total 600 330 Output Total 200 200 Balance 400 130 - Medications Medications: Current Medications Acetaminophen (Tylenol 325mg Tab) 650 mg PO Q6 PRN PRN Reason: Pain, moderate (4-7) Last Admin: 01/04/19 21:04 Dose: 650 mg Acetaminophen (Tylenol 325mg Tab) 650 mg PO ONCE PRN PRN Reason: pre med Last Admin: 01/03/19 14:39 Dose: 650 mg Diphenhydramine HCl (Benadryl) 25 mg IVP ONCE PRN PRN Reason: PRIOR TO TRANSFUSION Last Admin: 01/02/19 13:02 Dose: 25 mg Diphenhydramine HCl (Benadryl) 25 mg PO ONCE PRN PRN Reason: pre med Last Admin: 01/03/19 14:39 Dose: 25 mg Docusate Sodium (Colace) 100 mg PO BID [facility] Last Admin: 01/05/19 09:32 Dose: 100 mg Furosemide (Lasix) 20 mg PO DAILY [facility] Last Admin: 01/05/19 09:32 Dose: 20 mg Furosemide (Lasix) 20 mg IVP ONCE PRN PRN Reason: post transfusion Last Admin: 01/03/19 19:15 Dose: 20 mg Guaifenesin (Mucinex La) 600 mg PO BID [facility] Last Admin: 01/05/19 09:32 Dose: 600 mg Meropenem 1 gm/ Sodium (Chloride) 100 mls @ 100 mls/hr IVPB Q8H [facility]; Protocol Last Admin: 01/05/19 08:33 Dose: 100 mls/hr Vancomycin/Sodium Chloride (Vancomycin 1 Gm/Ns 200 Ml) 1 gm in 200 mls @ 133 mls/hr IVPB Q12H [facility]; Protocol Stop: 01/09/19 10:01 Last Admin: 01/04/19 21:04 Dose: 133 mls/hr Micafungin Sodium 100 mg/ (Sodium Chloride) 100 mls @ 100 mls/hr IV Q24H [facility]; Protocol Last Admin: 01/05/19 00:44 Dose: 100 mls/hr Lisinopril (Zestril) 5 mg PO DAILY [facility] Last Admin: 01/05/19 09:34 Dose: Not Given Ondansetron HCl (Zofran Inj) 4 mg IVP Q6H PRN PRN Reason: Nausea/Vomiting Pantoprazole Sodium (Protonix Ec Tab) 40 mg PO DAILY [facility] Last Admin: 01/05/19 09:33 Dose: 40 mg Saliva Substitute (First Magic Mouthwash) 5 ml PO Q6 [facility] Last Admin: 01/05/19 00:44 Dose: 5 ml Scopolamine (Transderm-Scop) 1 patch TD Q3D [facility] Last Admin: 01/02/19 11:23 Dose: Not Given Tamsulosin HCl (Flomax) 0.4 mg PO BID [facility] Last Admin: 01/05/19 09:32 Dose: 0.4 mg - Labs Labs: 01/05/19 07:29 01/05/19 07:29 PT 15.8 SECONDS (9.7-12.2) H 12/29/18 06:30 INR 1.4 12/29/18 06:30 APTT 23 SECONDS (21-34) 12/29/18 06:30 - Additional Findings Additional findings: - Head Exam Head Exam: ATRAUMATIC, NORMAL INSPECTION - Eye Exam Eye Exam: EOMI, Normal appearance, PERRL Pupil Exam: NORMAL ACCOMODATION - ENT Exam ENT Exam: Mucous Membranes Moist, Normal Oropharynx - Respiratory Exam Respiratory Exam: Clear to Ausculation Bilateral, NORMAL BREATHING PATTERN. absent: Prolonged Expiratory Phase, Respiratory Distress - Cardiovascular Exam Cardiovascular Exam: REGULAR RHYTHM, +S1, +S2 - GI/Abdominal Exam GI & Abdominal Exam: Soft, Normal Bowel Sounds. absent: Hyperactive Bowel Sounds - Neurological Exam Neurological Exam: Alert, Awake, Oriented x3 - Psychiatric Exam Psychiatric exam: Normal Affect, Normal Mood. 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 Admitted for pleural effusions. Plan: AML, currently on chemo Oncologist Dr. Bobby consulted, help appreciated Received 3rd dose of Decitabine 12/24/18 Hb/Hct 9.4/28.1 Platelets 12 today 1u PRBC transfusion- 01/03/19 2 UNITS platelets transfusion -01/02/19 2 units PRBCs and 2 units platelets transfusion received- 12/30/18 Neutropenic precautions. Zofran 4mg Q6 PRN Healthcare Associated Pneumonia, with left sided Infiltrates Right sided Pleural effusion Cough Tmax 101.[address] Thurston consulted, help appreciated CXR 01/05: significantly emphysematous changes with large L apical bulla. significant consolidation with air bronchograms in L lower to a slightly lesser degree. R-sided pleural effusion may have diminished CT chest: No CTA evidence for acute pulmonary embolism.Dense consolidation with air bronchogram in the left upper and lower lobes. Moderate right and small left pleural effusions. Multiple variable-sized parenchymal and subpleural nodules in the right lung, the largest in the right middle lobe measures 1.7 x 1.3 cm. These are nonspecific and could be infectious, inflammatory or neoplastic in etiology. Short-term interval follow-up is advised. Enlarged precarinal mediastinal lymph nodes, the largest measures 1.3 cm in transverse diameter. Mild cardiomegaly and small pericardial effusion. Saturating well on NC Blood cultures negative to date UA +RBCs, no leuk est or nitrates UCx negative Sputum culture: Staph. aureus only resistant to PCN ID Dr. Ferrari consulted, help appreciated Vancomycin 1g IV Q12 started 12/29/18 Merem 500mg IV Q8 started 12/29/18 Start Micofungin 100mg IV q24h (12/26/18) Negative legionella, strep pneumonia, mycoplasma D-dimer 2156 Negative for flu beta glucan studies negative Lasix 20mg PO daily Robitussin Scopolamine patch Mucinex 600mg PO BID follow up quantiferon gold History of BPH Flomax 0.4mg PO BID History of HTN Lisinopril 5mg PO daily Hold for low blood pressure Poor Nutrition encourage PO intake Internal Revenue [employer] consulted, recs appreciated Low Microbial Diet Ensure Enlive TID Prophylaxis: Protonix SCDs PT/OT Full code Case discussed with Dr. Montoya <Andrzej Montoya Jr. - Last Filed: 01/08/19 13:52> Objective - Vital Signs/Intake and Output Vital Signs (last 24 hours): Temp Pulse Resp BP Pulse Ox 98.6 F 99 H 20 107/68 95 01/08/19 08:28 01/08/19 08:28 01/08/19 08:28 01/08/19 09:24 01/08/19 08:28 Intake and Output: 01/08/19 01/08/19 06:59 18:59 Intake Total 1970 Output Total 241 Balance 1729 - Medications Medications: Current Medications Acetaminophen (Tylenol 325mg Tab) 650 mg PO Q6 PRN PRN Reason: Pain, moderate (4-7) Last Admin: 01/04/19 21:04 Dose: 650 mg Acetaminophen (Tylenol 325mg Tab) 650 mg PO ONCE PRN PRN Reason: pre med Last Admin: 01/03/19 14:39 Dose: 650 mg Diphenhydramine HCl (Benadryl) 25 mg IVP ONCE PRN PRN Reason: PRIOR TO TRANSFUSION Last Admin: 01/02/19 13:02 Dose: 25 mg Diphenhydramine HCl (Benadryl) 25 mg PO ONCE PRN PRN Reason: pre med Last Admin: 01/03/19 14:39 Dose: 25 mg Docusate Sodium (Colace) 100 mg PO BID [facility] Last Admin: 01/08/19 09:30 Dose: Not Given Furosemide (Lasix) 20 mg PO DAILY [facility] Last Admin: 01/08/19 09:24 Dose: 20 mg Furosemide (Lasix) 20 mg IVP ONCE PRN PRN Reason: post transfusion Last Admin: 01/03/19 19:15 Dose: 20 mg Guaifenesin (Mucinex La) 600 mg PO BID [facility] Last Admin: 01/08/19 09:24 Dose: 600 mg Guaifenesin (Robitussin) 200 mg PO Q4H PRN PRN Reason: Cough and congestion Meropenem 1 gm/ Sodium (Chloride) 100 mls @ 100 mls/hr IVPB Q8H [facility]; Protocol Last Admin: 01/08/19 08:24 Dose: 100 mls/hr Micafungin Sodium 100 mg/ (Sodium Chloride) 100 mls @ 100 mls/hr IV Q24H [facility]; Protocol Last Admin: 01/08/19 00:05 Dose: 100 mls/hr Vancomycin HCl 1 gm/ Sodium (Chloride) 250 mls @ 166.7 mls/hr IVPB Q24H [facility]; Protocol Last Admin: 01/08/19 09:23 Dose: 166.7 mls/hr Dextrose/Sodium Chloride (Dextrose 5%/0.45% Ns 1000 Ml) 1,000 mls @ 100 mls/hr IV .Q10H [facility] Last Admin: 01/08/19 13:08 Dose: Not Given Lisinopril (Zestril) 5 mg PO DAILY [facility] Last Admin: 01/08/19 09:25 Dose: 5 mg Morphine Sulfate (Morphine) 1 mg IV Q4H PRN PRN Reason: Pain, severe (8-10) Ondansetron HCl (Zofran Inj) 4 mg IVP Q6H PRN PRN Reason: Nausea/Vomiting Pantoprazole Sodium (Protonix Ec Tab) 40 mg PO DAILY [facility] Last Admin: 01/08/19 09:25 Dose: 40 mg Saliva Substitute (First Magic Mouthwash) 5 ml PO Q6 [facility] Last Admin: 01/08/19 12:30 Dose: 5 ml Scopolamine (Transderm-Scop) 1 patch TD Q3D [facility] Last Admin: 01/08/19 10:23 Dose: 1 patch Tamsulosin HCl (Flomax) 0.4 mg PO BID [facility] Last Admin: 01/08/19 09:24 Dose: 0.4 mg - Labs Labs: 01/08/19 07:20 01/08/19 07:20 PT 15.8 SECONDS (9.7-12.2) H 12/29/18 06:30 INR 1.4 12/29/18 06:30 APTT 23 SECONDS (21-34) 12/29/18 06:30 Attending/Attestation - Attestation I have personally seen and examined this patient.: Yes I have fully participated in the care of the patient.: Yes I have reviewed all pertinent clinical information, including history, physical exam and plan: Yes Notes (Text): 01/08/19 13:52 Reviewed resident note findings and plan of care. Agree with plan of care and findings.
[2019-01-05] MEDS: Vancomycin 1 gm/NS 200 ml 1 GM/200 ML BAG IVPB SCH (09:53)
--- NOTE | 2019-01-05 11:43 | RAD ---
Date of service: 01/05/2019 HISTORY: Pleural effusions COMPARISON: Comparison made with prior study 01/05/2019 and CTA chest 12/29/2018. FINDINGS: LUNGS: Significant emphysematous changes with large left apical bulla again noted. Also again noted is significant consolidation changes with air bronchograms throughout most of the left lower and to a slightly lesser degree left upper lobe. Small left-sided effusion cannot be excluded. Previous noted right-sided effusion may have diminished PLEURA: As above. Pneumothorax apparent. CARDIOVASCULAR: Mild aortic atherosclerotic calcification present. Heart remains enlarged. Previously noted pericardial effusion not appreciated on this exam. OSSEOUS STRUCTURES: No significant abnormalities. VISUALIZED UPPER ABDOMEN: Normal. OTHER FINDINGS: None. IMPRESSION: Significant emphysematous changes with large left apical bulla again noted. Also again noted is significant consolidation with air bronchograms throughout most of the left lower and to a slightly lesser degree left upper lobe. Small left-sided effusion cannot be excluded. Previous noted right-sided effusion may have diminished
--- NOTE | 2019-01-05 13:28 | CP.PCM.PN ---
Subjective - Date & Time of Evaluation Date of Evaluation: 01/05/19 Time of Evaluation: 10:00 - Subjective Subjective: Patient seen and examined at bedside. He states he continues to experience cough with white sputum production though it has improved somewhat. Denies chest pain, nausea, vomiting. Currently afebrile. Objective - Vital Signs/Intake and Output Vital Signs (last 24 hours): Temp Pulse Resp BP Pulse Ox 98.8 F 87 20 105/70 98 01/05/19 08:03 01/05/19 08:03 01/05/19 08:03 01/05/19 09:32 01/05/19 08:03 Intake and Output: 01/05/19 01/05/19 06:59 18:59 Intake Total 600 330 Output Total 200 200 Balance 400 130 - Medications Medications: Current Medications Acetaminophen (Tylenol 325mg Tab) 650 mg PO Q6 PRN PRN Reason: Pain, moderate (4-7) Last Admin: 01/04/19 21:04 Dose: 650 mg Acetaminophen (Tylenol 325mg Tab) 650 mg PO ONCE PRN PRN Reason: pre med Last Admin: 01/03/19 14:39 Dose: 650 mg Diphenhydramine HCl (Benadryl) 25 mg IVP ONCE PRN PRN Reason: PRIOR TO TRANSFUSION Last Admin: 01/02/19 13:02 Dose: 25 mg Diphenhydramine HCl (Benadryl) 25 mg PO ONCE PRN PRN Reason: pre med Last Admin: 01/03/19 14:39 Dose: 25 mg Docusate Sodium (Colace) 100 mg PO BID [facility] Last Admin: 01/05/19 09:32 Dose: 100 mg Furosemide (Lasix) 20 mg PO DAILY [facility] Last Admin: 01/05/19 09:32 Dose: 20 mg Furosemide (Lasix) 20 mg IVP ONCE PRN PRN Reason: post transfusion Last Admin: 01/03/19 19:15 Dose: 20 mg Guaifenesin (Mucinex La) 600 mg PO BID [facility] Last Admin: 01/05/19 09:32 Dose: 600 mg Meropenem 1 gm/ Sodium (Chloride) 100 mls @ 100 mls/hr IVPB Q8H [facility]; Protocol Last Admin: 01/05/19 08:33 Dose: 100 mls/hr Vancomycin/Sodium Chloride (Vancomycin 1 Gm/Ns 200 Ml) 1 gm in 200 mls @ 133 mls/hr IVPB Q12H [facility]; Protocol Stop: 01/09/19 10:01 Last Admin: 01/05/19 09:53 Dose: 133 mls/hr Micafungin Sodium 100 mg/ (Sodium Chloride) 100 mls @ 100 mls/hr IV Q24H [facility]; Protocol Last Admin: 01/05/19 00:44 Dose: 100 mls/hr Lisinopril (Zestril) 5 mg PO DAILY [facility] Last Admin: 01/05/19 09:34 Dose: Not Given Ondansetron HCl (Zofran Inj) 4 mg IVP Q6H PRN PRN Reason: Nausea/Vomiting Pantoprazole Sodium (Protonix Ec Tab) 40 mg PO DAILY [facility] Last Admin: 01/05/19 09:33 Dose: 40 mg Saliva Substitute (First Magic Mouthwash) 5 ml PO Q6 [facility] Last Admin: 01/05/19 11:41 Dose: Not Given Scopolamine (Transderm-Scop) 1 patch TD Q3D [facility] Last Admin: 01/05/19 10:22 Dose: 1 patch Tamsulosin HCl (Flomax) 0.4 mg PO BID [facility] Last Admin: 01/05/19 09:32 Dose: 0.4 mg - Labs Labs: 01/05/19 07:29 01/05/19 07:29 PT 15.8 SECONDS (9.7-12.2) H 12/29/18 06:30 INR 1.4 12/29/18 06:30 APTT 23 SECONDS (21-34) 12/29/18 06:30 - Head Exam Head Exam: ATRAUMATIC, NORMOCEPHALIC - ENT Exam ENT Exam: Mucous Membranes Moist - Neck Exam Neck Exam: Normal Inspection - Respiratory Exam Respiratory Exam: Rales, Rhonchi - Cardiovascular Exam Cardiovascular Exam: REGULAR RHYTHM - GI/Abdominal Exam GI & Abdominal Exam: Soft, Normal Bowel Sounds Assessment and Plan (1) Pneumonia Assessment & Plan: Continue antibiotics and follow-up chest x-ray Antifungal Podiatry evaluation Physical therapy Status: Acute (2) Pleural effusion, left Status: Acute
--- NOTE | 2019-01-05 16:08 | CP.PCM.PN ---
Subjective - Date & Time of Evaluation Date of Evaluation: 01/05/19 Time of Evaluation: 07:00 - Subjective Subjective: seen on rounds- fever on and off cultures and labs reviewed patient examined has swelling left arm consider imaging / drainage mycamine added Objective - Vital Signs/Intake and Output Vital Signs (last 24 hours): Temp Pulse Resp BP Pulse Ox 98.8 F 87 20 105/70 98 01/05/19 08:03 01/05/19 08:03 01/05/19 08:03 01/05/19 09:32 01/05/19 08:03 Intake and Output: 01/05/19 01/05/19 06:59 18:59 Intake Total 600 330 Output Total 200 200 Balance 400 130 - Medications Medications: Current Medications Acetaminophen (Tylenol 325mg Tab) 650 mg PO Q6 PRN PRN Reason: Pain, moderate (4-7) Last Admin: 01/04/19 21:04 Dose: 650 mg Acetaminophen (Tylenol 325mg Tab) 650 mg PO ONCE PRN PRN Reason: pre med Last Admin: 01/03/19 14:39 Dose: 650 mg Diphenhydramine HCl (Benadryl) 25 mg IVP ONCE PRN PRN Reason: PRIOR TO TRANSFUSION Last Admin: 01/02/19 13:02 Dose: 25 mg Diphenhydramine HCl (Benadryl) 25 mg PO ONCE PRN PRN Reason: pre med Last Admin: 01/03/19 14:39 Dose: 25 mg Docusate Sodium (Colace) 100 mg PO BID [facility] Last Admin: 01/05/19 09:32 Dose: 100 mg Furosemide (Lasix) 20 mg PO DAILY [facility] Last Admin: 01/05/19 09:32 Dose: 20 mg Furosemide (Lasix) 20 mg IVP ONCE PRN PRN Reason: post transfusion Last Admin: 01/03/19 19:15 Dose: 20 mg Guaifenesin (Mucinex La) 600 mg PO BID [facility] Last Admin: 01/05/19 09:32 Dose: 600 mg Meropenem 1 gm/ Sodium (Chloride) 100 mls @ 100 mls/hr IVPB Q8H [facility]; Protocol Last Admin: 01/05/19 08:33 Dose: 100 mls/hr Vancomycin/Sodium Chloride (Vancomycin 1 Gm/Ns 200 Ml) 1 gm in 200 mls @ 133 mls/hr IVPB Q12H [facility]; Protocol Stop: 01/09/19 10:01 Last Admin: 01/05/19 09:53 Dose: 133 mls/hr Micafungin Sodium 100 mg/ (Sodium Chloride) 100 mls @ 100 mls/hr IV Q24H [facility]; Protocol Last Admin: 01/05/19 00:44 Dose: 100 mls/hr Lisinopril (Zestril) 5 mg PO DAILY [facility] Last Admin: 01/05/19 09:34 Dose: Not Given Ondansetron HCl (Zofran Inj) 4 mg IVP Q6H PRN PRN Reason: Nausea/Vomiting Pantoprazole Sodium (Protonix Ec Tab) 40 mg PO DAILY [facility] Last Admin: 01/05/19 09:33 Dose: 40 mg Saliva Substitute (First Magic Mouthwash) 5 ml PO Q6 [facility] Last Admin: 01/05/19 11:41 Dose: Not Given Scopolamine (Transderm-Scop) 1 patch TD Q3D [facility] Last Admin: 01/05/19 10:22 Dose: 1 patch Tamsulosin HCl (Flomax) 0.4 mg PO BID [facility] Last Admin: 01/05/19 09:32 Dose: 0.4 mg - Labs Labs: 01/05/19 07:29 01/05/19 07:29 PT 15.8 SECONDS (9.7-12.2) H 12/29/18 06:30 INR 1.4 12/29/18 06:30 APTT 23 SECONDS (21-34) 12/29/18 06:30 - Constitutional Appears: No Acute Distress, Cachectic, Chronically Ill - Head Exam Head Exam: NORMOCEPHALIC - Eye Exam Eye Exam: EOMI. absent: Scleral icterus - ENT Exam ENT Exam: Mucous Membranes Dry - Neck Exam Neck Exam: absent: Thyromegaly - Respiratory Exam Respiratory Exam: Decreased Breath Sounds - Cardiovascular Exam Cardiovascular Exam: REGULAR RHYTHM - GI/Abdominal Exam GI & Abdominal Exam: Distended, Soft - Rectal Exam Rectal Exam: Deferred - Exam Exam: NORMAL INSPECTION - Extremities Exam Extremities Exam: absent: Pedal Edema Additional comments: swelling left arm - Back Exam Back Exam: absent: CVA tenderness (L), CVA tenderness (R) - Neurological Exam Neurological Exam: Alert, Awake, CN II-XII Intact - Psychiatric Exam Psychiatric exam: Depressed - Skin Skin Exam: Dry Assessment and Plan (1) Pleural effusion, left Status: Acute (2) Pneumonia Status: Acute (3) Pleural effusion Status: Acute (4) AML (acute myeloblastic leukemia) Status: Chronic (5) Pancytopenia Status: Chronic - Assessment and Plan (Free Text) Assessment: has swelling left arm consider imaging / drainage mycamine added
[2019-01-06] MEDS: Mag&Al/Simet/Diphen/Lido 237 ML KIT PO SCH ×4 (00:01→20:05)
[2019-01-06] MEDS: Meropenem 1 GM in Sodium Chloride 0.9% 100 ML IVPB SCH ×3 (01:01→17:38)
--- NOTE | 2019-01-06 07:31 | CP.PCM.PN ---
<Radha Masterson - Last Filed: 01/06/19 10:58> Subjective - Date & Time of Evaluation Date of Evaluation: 01/06/19 Time of Evaluation: 07:29 - Subjective Subjective: Radha Masterson PGY1 Progress Note for Dr. Montoya Pt was examined at bedside this morning. He reports continuation of his cough. As per daughter at bedside, pt barely ate dinner or drank Ensure last night. She reported that the pt only made a small amount of urine. Objective - Vital Signs/Intake and Output Vital Signs (last 24 hours): Temp Pulse Resp BP Pulse Ox 98.3 F 108 H 20 105/62 95 01/06/19 00:00 01/06/19 00:00 01/06/19 00:00 01/06/19 00:00 01/06/19 00:00 Intake and Output: 01/06/19 01/06/19 06:59 18:59 Intake Total 600 Output Total 250 Balance 350 - Medications Medications: Current Medications Acetaminophen (Tylenol 325mg Tab) 650 mg PO Q6 PRN PRN Reason: Pain, moderate (4-7) Last Admin: 01/04/19 21:04 Dose: 650 mg Acetaminophen (Tylenol 325mg Tab) 650 mg PO ONCE PRN PRN Reason: pre med Last Admin: 01/03/19 14:39 Dose: 650 mg Diphenhydramine HCl (Benadryl) 25 mg IVP ONCE PRN PRN Reason: PRIOR TO TRANSFUSION Last Admin: 01/02/19 13:02 Dose: 25 mg Diphenhydramine HCl (Benadryl) 25 mg PO ONCE PRN PRN Reason: pre med Last Admin: 01/03/19 14:39 Dose: 25 mg Docusate Sodium (Colace) 100 mg PO BID [facility] Last Admin: 01/05/19 18:23 Dose: Not Given Furosemide (Lasix) 20 mg PO DAILY [facility] Last Admin: 01/05/19 09:32 Dose: 20 mg Furosemide (Lasix) 20 mg IVP ONCE PRN PRN Reason: post transfusion Last Admin: 01/03/19 19:15 Dose: 20 mg Guaifenesin (Mucinex La) 600 mg PO BID [facility] Last Admin: 01/05/19 18:23 Dose: 600 mg Guaifenesin (Robitussin) 200 mg PO Q4H PRN PRN Reason: Cough and congestion Meropenem 1 gm/ Sodium (Chloride) 100 mls @ 100 mls/hr IVPB Q8H [facility]; Protocol Last Admin: 01/06/19 01:01 Dose: 100 mls/hr Micafungin Sodium 100 mg/ (Sodium Chloride) 100 mls @ 100 mls/hr IV Q24H [facility]; Protocol Last Admin: 01/05/19 23:56 Dose: 100 mls/hr Vancomycin HCl 1 gm/ Sodium (Chloride) 250 mls @ 166.7 mls/hr IVPB Q24H [facility]; Protocol Lisinopril (Zestril) 5 mg PO DAILY [facility] Last Admin: 01/05/19 09:34 Dose: Not Given Ondansetron HCl (Zofran Inj) 4 mg IVP Q6H PRN PRN Reason: Nausea/Vomiting Pantoprazole Sodium (Protonix Ec Tab) 40 mg PO DAILY [facility] Last Admin: 01/05/19 09:33 Dose: 40 mg Saliva Substitute (First Magic Mouthwash) 5 ml PO Q6 [facility] Last Admin: 01/06/19 06:07 Dose: 5 ml Scopolamine (Transderm-Scop) 1 patch TD Q3D [facility] Last Admin: 01/05/19 10:22 Dose: 1 patch Tamsulosin HCl (Flomax) 0.4 mg PO BID [facility] Last Admin: 01/05/19 18:23 Dose: 0.4 mg - Labs Labs: 01/05/19 07:29 01/05/19 07:29 PT 15.8 SECONDS (9.7-12.2) H 12/29/18 06:30 INR 1.4 12/29/18 06:30 APTT 23 SECONDS (21-34) 12/29/18 06:30 - Constitutional Appears: Cachectic, Chronically Ill - Head Exam Head Exam: ATRAUMATIC, NORMOCEPHALIC - Eye Exam Eye Exam: Normal appearance Pupil Exam: NORMAL ACCOMODATION - ENT Exam ENT Exam: Mucous Membranes Dry - Respiratory Exam Respiratory Exam: Decreased Breath Sounds, NORMAL BREATHING PATTERN. absent: Rales, Rhonchi, Respiratory Distress - Cardiovascular Exam Cardiovascular Exam: REGULAR RHYTHM, +S1, +S2. absent: Gallop, Rubs, Murmur - GI/Abdominal Exam GI & Abdominal Exam: Soft, Normal Bowel Sounds. absent: Distended, Tenderness - Extremities Exam Extremities Exam: Pedal Edema Additional comments: b/l UE edema in hands - Neurological Exam Neurological Exam: Alert, Awake, Oriented x3 - Psychiatric Exam Psychiatric exam: Normal Affect, Normal Mood - Skin Skin Exam: Normal Color Assessment and Plan - Assessment and Plan (Free Text) Assessment: - Head Exam Head Exam: ATRAUMATIC, NORMAL INSPECTION - Eye Exam Eye Exam: EOMI, Normal appearance, PERRL Pupil Exam: NORMAL ACCOMODATION - ENT Exam ENT Exam: Mucous Membranes Moist, Normal Oropharynx - Respiratory Exam Respiratory Exam: Clear to Ausculation Bilateral, NORMAL BREATHING PATTERN. absent: Prolonged Expiratory Phase, Respiratory Distress - Cardiovascular Exam Cardiovascular Exam: REGULAR RHYTHM, +S1, +S2 - GI/Abdominal Exam GI & Abdominal Exam: Soft, Normal Bowel Sounds. absent: Hyperactive Bowel Sounds - Neurological Exam Neurological Exam: Alert, Awake, Oriented x3 - Psychiatric Exam Psychiatric exam: Normal Affect, Normal Mood. 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 Admitted for pleural effusions. Plan: AML, currently on chemo Oncologist Dr. Bobby consulted, help appreciated Received 3rd dose of Decitabine 12/24/18 Hb/Hct 7.8/23.7 Platelets 11 today 1u PRBC transfusion- 01/03/19 2u platelets transfusion- 01/02/19 2u PRBCs and 2u platelets transfusion received- 12/30/18 Neutropenic precautions Zofran 4mg Q6 PRN Healthcare Associated Pneumonia, with left sided Infiltrates Right sided Pleural effusion Cough Tmax 101.[address] Thurston consulted, help appreciated CXR 01/05: significantly emphysematous changes with large L apical bulla. significant consolidation with air bronchograms in L lower to a slightly lesser degree. R-sided pleural effusion may have diminished CT chest: No CTA evidence for acute pulmonary embolism.Dense consolidation with air bronchogram in the left upper and lower lobes. Moderate right and small left pleural effusions. Multiple variable-sized parenchymal and subpleural nodules in the right lung, the largest in the right middle lobe measures 1.7 x 1.3 cm. These are nonspecific and could be infectious, inflammatory or neoplastic in etiology. Short-term interval follow-up is advised. Enlarged precarinal mediastinal lymph nodes, the largest measures 1.3 cm in transverse diameter. Mild cardiomegaly and small pericardial effusion. Saturating well on NC BCx negative to date UA +RBCs, no leuk est or nitrates UCx negative Sputum Cx: Staph. aureus only resistant to PCN ID Dr. Ferrari consulted, help appreciated Vancomycin 1g IV Q12 started 12/29/18 Merem 500mg IV Q8 started 12/29/18 Micofungin 100mg IV q24h (12/26/18) Negative legionella, strep pneumonia, mycoplasma D-dimer 2156 Negative for flu beta glucan studies negative D51/2NS @100cc/hr Lasix 20mg PO daily Robitussin Scopolamine patch Mucinex 600mg PO BID follow up quantiferon gold hep lock changed 01/06 History of BPH Flomax 0.4mg PO BID History of HTN Lisinopril 5mg PO daily Hold for low blood pressure Poor Nutrition encourage PO intake Assistant Designer consulted, recs appreciated Low Microbial Diet Ensure Enlive TID f/u B21 level Prophylaxis: Protonix SCDs PT/OT Full code Case discussed with Dr. Montoya <Andrzej Montoya Jr. - Last Filed: 01/08/19 13:51> Objective - Vital Signs/Intake and Output Vital Signs (last 24 hours): Temp Pulse Resp BP Pulse Ox 98.6 F 99 H 20 107/68 95 01/08/19 08:28 01/08/19 08:28 01/08/19 08:28 01/08/19 09:24 01/08/19 08:28 Intake and Output: 01/08/19 01/08/19 06:59 18:59 Intake Total 1970 Output Total 241 Balance 1729 - Medications Medications: Current Medications Acetaminophen (Tylenol 325mg Tab) 650 mg PO Q6 PRN PRN Reason: Pain, moderate (4-7) Last Admin: 01/04/19 21:04 Dose: 650 mg Acetaminophen (Tylenol 325mg Tab) 650 mg PO ONCE PRN PRN Reason: pre med Last Admin: 01/03/19 14:39 Dose: 650 mg Diphenhydramine HCl (Benadryl) 25 mg IVP ONCE PRN PRN Reason: PRIOR TO TRANSFUSION Last Admin: 01/02/19 13:02 Dose: 25 mg Diphenhydramine HCl (Benadryl) 25 mg PO ONCE PRN PRN Reason: pre med Last Admin: 01/03/19 14:39 Dose: 25 mg Docusate Sodium (Colace) 100 mg PO BID [facility] Last Admin: 01/08/19 09:30 Dose: Not Given Furosemide (Lasix) 20 mg PO DAILY [facility] Last Admin: 01/08/19 09:24 Dose: 20 mg Furosemide (Lasix) 20 mg IVP ONCE PRN PRN Reason: post transfusion Last Admin: 01/03/19 19:15 Dose: 20 mg Guaifenesin (Mucinex La) 600 mg PO BID [facility] Last Admin: 01/08/19 09:24 Dose: 600 mg Guaifenesin (Robitussin) 200 mg PO Q4H PRN PRN Reason: Cough and congestion Meropenem 1 gm/ Sodium (Chloride) 100 mls @ 100 mls/hr IVPB Q8H [facility]; Protocol Last Admin: 01/08/19 08:24 Dose: 100 mls/hr Micafungin Sodium 100 mg/ (Sodium Chloride) 100 mls @ 100 mls/hr IV Q24H [facility]; Protocol Last Admin: 01/08/19 00:05 Dose: 100 mls/hr Vancomycin HCl 1 gm/ Sodium (Chloride) 250 mls @ 166.7 mls/hr IVPB Q24H [facility]; Protocol Last Admin: 01/08/19 09:23 Dose: 166.7 mls/hr Dextrose/Sodium Chloride (Dextrose 5%/0.45% Ns 1000 Ml) 1,000 mls @ 100 mls/hr IV .Q10H [facility] Last Admin: 01/08/19 13:08 Dose: Not Given Lisinopril (Zestril) 5 mg PO DAILY [facility] Last Admin: 01/08/19 09:25 Dose: 5 mg Morphine Sulfate (Morphine) 1 mg IV Q4H PRN PRN Reason: Pain, severe (8-10) Ondansetron HCl (Zofran Inj) 4 mg IVP Q6H PRN PRN Reason: Nausea/Vomiting Pantoprazole Sodium (Protonix Ec Tab) 40 mg PO DAILY [facility] Last Admin: 01/08/19 09:25 Dose: 40 mg Saliva Substitute (First Magic Mouthwash) 5 ml PO Q6 [facility] Last Admin: 01/08/19 12:30 Dose: 5 ml Scopolamine (Transderm-Scop) 1 patch TD Q3D [facility] Last Admin: 01/08/19 10:23 Dose: 1 patch Tamsulosin HCl (Flomax) 0.4 mg PO BID [facility] Last Admin: 01/08/19 09:24 Dose: 0.4 mg - Labs Labs: 01/08/19 07:20 01/08/19 07:20 PT 15.8 SECONDS (9.7-12.2) H 12/29/18 06:30 INR 1.4 12/29/18 06:30 APTT 23 SECONDS (21-34) 12/29/18 06:30 Attending/Attestation - Attestation I have personally seen and examined this patient.: Yes I have fully participated in the care of the patient.: Yes I have reviewed all pertinent clinical information, including history, physical exam and plan: Yes Notes (Text): 01/08/19 13:51 Reviewed resident note findings and plan of care. Agree with plan of care and findings.
[2019-01-06 08:10] LABS: EOS % 0.2 % (0.0-4.0); HEMOGLOBIN 7.8 g/dL (12.0-18.0); LYMPH # 0.2 K/uL (1.0-4.3); LYMPH % 76.6 % (20.0-40.0); MEAN CELL VOLUME 91.8 fL (80.0-94.0); MEAN CORPUSCULAR HEMOGLOBIN 30.3 pg (27.0-31.0); MEAN PLATELET VOLUME 8.4 fL (7.2-11.7); MONO % 20.8 % (0.0-10.0); NEUT % 2.4 % (50.0-75.0); NRBC % 0.4 % (0.0-2.0); RBC 2.58 Mil/uL (4.40-5.90); RED CELL DISTRIBUTION WIDTH 13.3 % (11.5-14.5)
[2019-01-06 08:15] LABS: ALB/GLOB RATIO 0.7 (1.0-2.1); ALBUMIN 1.6 g/dL (3.5-5.0); ALT/SGPT 23 U/L (21-72); AST/SGOT 16 U/L (17-59); BLOOD UREA NITROGEN 29 mg/dL (9-20); CALCIUM 7.7 mg/dl (8.6-10.4); GFR NON-AFRICAN AMERICAN > 60
[2019-01-06 08:27] LABS: WHITE BLOOD COUNT 0.2 K/uL (4.8-10.8)
[2019-01-06] MEDS: guaiFENesin 600 mg ER Tab PO SCH ×2 (11:08→17:38)
[2019-01-06] MEDS: Pantoprazole 40 mg EC Tab PO SCH (11:08)
[2019-01-06] MEDS: Dextrose 5%/0.45% NS 1,000 ML IV SCH ×2 (11:16→21:08)
--- NOTE | 2019-01-06 18:16 | CP.PCM.PN ---
Subjective - Date & Time of Evaluation Date of Evaluation: 01/06/19 Time of Evaluation: 12:00 - Subjective Subjective: patient seen and examined Denies hemoptysis but still having cough Started on antifungal Patient is awake and responsive In no distress Objective - Vital Signs/Intake and Output Vital Signs (last 24 hours): Temp Pulse Resp BP Pulse Ox 99 F 96 H 18 100/61 97 01/06/19 16:00 01/06/19 16:00 01/06/19 16:00 01/06/19 16:00 01/06/19 16:00 Intake and Output: 01/06/19 01/06/19 06:59 18:59 Intake Total 600 100 Output Total 250 200 Balance 350 -100 - Medications Medications: Current Medications Acetaminophen (Tylenol 325mg Tab) 650 mg PO Q6 PRN PRN Reason: Pain, moderate (4-7) Last Admin: 01/04/19 21:04 Dose: 650 mg Acetaminophen (Tylenol 325mg Tab) 650 mg PO ONCE PRN PRN Reason: pre med Last Admin: 01/03/19 14:39 Dose: 650 mg Diphenhydramine HCl (Benadryl) 25 mg IVP ONCE PRN PRN Reason: PRIOR TO TRANSFUSION Last Admin: 01/02/19 13:02 Dose: 25 mg Diphenhydramine HCl (Benadryl) 25 mg PO ONCE PRN PRN Reason: pre med Last Admin: 01/03/19 14:39 Dose: 25 mg Docusate Sodium (Colace) 100 mg PO BID [facility] Last Admin: 01/06/19 17:38 Dose: 100 mg Furosemide (Lasix) 20 mg PO DAILY [facility] Last Admin: 01/06/19 11:16 Dose: Not Given Furosemide (Lasix) 20 mg IVP ONCE PRN PRN Reason: post transfusion Last Admin: 01/03/19 19:15 Dose: 20 mg Guaifenesin (Mucinex La) 600 mg PO BID [facility] Last Admin: 01/06/19 17:38 Dose: 600 mg Guaifenesin (Robitussin) 200 mg PO Q4H PRN PRN Reason: Cough and congestion Meropenem 1 gm/ Sodium (Chloride) 100 mls @ 100 mls/hr IVPB Q8H [facility]; Protocol Last Admin: 01/06/19 17:38 Dose: 100 mls/hr Micafungin Sodium 100 mg/ (Sodium Chloride) 100 mls @ 100 mls/hr IV Q24H [facility]; Protocol Last Admin: 01/05/19 23:56 Dose: 100 mls/hr Vancomycin HCl 1 gm/ Sodium (Chloride) 250 mls @ 166.7 mls/hr IVPB Q24H [facility]; Protocol Last Admin: 01/06/19 12:18 Dose: 166.7 mls/hr Dextrose/Sodium Chloride (Dextrose 5%/0.45% Ns 1000 Ml) 1,000 mls @ 100 mls/hr IV .Q10H [facility] Last Admin: 01/06/19 11:16 Dose: 100 mls/hr Lisinopril (Zestril) 5 mg PO DAILY [facility] Last Admin: 01/06/19 11:08 Dose: Not Given Ondansetron HCl (Zofran Inj) 4 mg IVP Q6H PRN PRN Reason: Nausea/Vomiting Pantoprazole Sodium (Protonix Ec Tab) 40 mg PO DAILY [facility] Last Admin: 01/06/19 11:08 Dose: 40 mg Saliva Substitute (First Magic Mouthwash) 5 ml PO Q6 [facility] Last Admin: 01/06/19 12:32 Dose: 5 ml Scopolamine (Transderm-Scop) 1 patch TD Q3D [facility] Last Admin: 01/05/19 10:22 Dose: 1 patch Tamsulosin HCl (Flomax) 0.4 mg PO BID [facility] Last Admin: 01/06/19 17:38 Dose: 0.4 mg - Labs Labs: 01/06/19 07:50 01/06/19 07:50 PT 15.8 SECONDS (9.7-12.2) H 12/29/18 06:30 INR 1.4 12/29/18 06:30 APTT 23 SECONDS (21-34) 12/29/18 06:30 - Head Exam Head Exam: ATRAUMATIC, NORMOCEPHALIC - ENT Exam ENT Exam: Mucous Membranes Moist - Respiratory Exam Respiratory Exam: Rales - Cardiovascular Exam Cardiovascular Exam: REGULAR RHYTHM - GI/Abdominal Exam GI & Abdominal Exam: Soft Assessment and Plan (1) Pneumonia Assessment & Plan: Continue antibiotics including antifungal Follow-up chest x-ray Status: Acute (2) Pleural effusion, left Status: Acute
--- NOTE | 2019-01-06 19:20 | CP.PCM.PN ---
Subjective - Date & Time of Evaluation Date of Evaluation: 01/06/19 Time of Evaluation: 07:00 - Subjective Subjective: afebrile less cough NAD still neutropenic Objective - Vital Signs/Intake and Output Vital Signs (last 24 hours): Temp Pulse Resp BP Pulse Ox 99 F 96 H 18 100/61 97 01/06/19 16:00 01/06/19 16:00 01/06/19 16:00 01/06/19 16:00 01/06/19 16:00 Intake and Output: 01/06/19 01/07/19 18:59 06:59 Intake Total 100 Output Total 200 Balance -100 - Medications Medications: Current Medications Acetaminophen (Tylenol 325mg Tab) 650 mg PO Q6 PRN PRN Reason: Pain, moderate (4-7) Last Admin: 01/04/19 21:04 Dose: 650 mg Acetaminophen (Tylenol 325mg Tab) 650 mg PO ONCE PRN PRN Reason: pre med Last Admin: 01/03/19 14:39 Dose: 650 mg Diphenhydramine HCl (Benadryl) 25 mg IVP ONCE PRN PRN Reason: PRIOR TO TRANSFUSION Last Admin: 01/02/19 13:02 Dose: 25 mg Diphenhydramine HCl (Benadryl) 25 mg PO ONCE PRN PRN Reason: pre med Last Admin: 01/03/19 14:39 Dose: 25 mg Docusate Sodium (Colace) 100 mg PO BID [facility] Last Admin: 01/06/19 17:38 Dose: 100 mg Furosemide (Lasix) 20 mg PO DAILY [facility] Last Admin: 01/06/19 11:16 Dose: Not Given Furosemide (Lasix) 20 mg IVP ONCE PRN PRN Reason: post transfusion Last Admin: 01/03/19 19:15 Dose: 20 mg Guaifenesin (Mucinex La) 600 mg PO BID [facility] Last Admin: 01/06/19 17:38 Dose: 600 mg Guaifenesin (Robitussin) 200 mg PO Q4H PRN PRN Reason: Cough and congestion Meropenem 1 gm/ Sodium (Chloride) 100 mls @ 100 mls/hr IVPB Q8H [facility]; Protocol Last Admin: 01/06/19 17:38 Dose: 100 mls/hr Micafungin Sodium 100 mg/ (Sodium Chloride) 100 mls @ 100 mls/hr IV Q24H [facility]; Protocol Last Admin: 01/05/19 23:56 Dose: 100 mls/hr Vancomycin HCl 1 gm/ Sodium (Chloride) 250 mls @ 166.7 mls/hr IVPB Q24H [facility]; Protocol Last Admin: 01/06/19 12:18 Dose: 166.7 mls/hr Dextrose/Sodium Chloride (Dextrose 5%/0.45% Ns 1000 Ml) 1,000 mls @ 100 mls/hr IV .Q10H [facility] Last Admin: 01/06/19 11:16 Dose: 100 mls/hr Lisinopril (Zestril) 5 mg PO DAILY [facility] Last Admin: 01/06/19 11:08 Dose: Not Given Ondansetron HCl (Zofran Inj) 4 mg IVP Q6H PRN PRN Reason: Nausea/Vomiting Pantoprazole Sodium (Protonix Ec Tab) 40 mg PO DAILY [facility] Last Admin: 01/06/19 11:08 Dose: 40 mg Saliva Substitute (First Magic Mouthwash) 5 ml PO Q6 [facility] Last Admin: 01/06/19 12:32 Dose: 5 ml Scopolamine (Transderm-Scop) 1 patch TD Q3D [facility] Last Admin: 01/05/19 10:22 Dose: 1 patch Tamsulosin HCl (Flomax) 0.4 mg PO BID [facility] Last Admin: 01/06/19 17:38 Dose: 0.4 mg - Labs Labs: 01/06/19 07:50 01/06/19 07:50 PT 15.8 SECONDS (9.7-12.2) H 12/29/18 06:30 INR 1.4 12/29/18 06:30 APTT 23 SECONDS (21-34) 12/29/18 06:30 - Constitutional Appears: No Acute Distress, Cachectic, Chronically Ill - Head Exam Head Exam: ATRAUMATIC, NORMAL INSPECTION, NORMOCEPHALIC - Eye Exam Eye Exam: EOMI, Normal appearance, PERRL Pupil Exam: NORMAL ACCOMODATION, PERRL - ENT Exam ENT Exam: Mucous Membranes Moist, Normal Exam - Neck Exam Neck Exam: Full ROM, Normal Inspection. absent: Lymphadenopathy - Respiratory Exam Respiratory Exam: Clear to Ausculation Bilateral, NORMAL BREATHING PATTERN - Cardiovascular Exam Cardiovascular Exam: REGULAR RHYTHM, +S1, +S2. absent: Murmur - GI/Abdominal Exam GI & Abdominal Exam: Soft, Normal Bowel Sounds. absent: Tenderness - Rectal Exam Rectal Exam: Deferred - Exam Exam: NORMAL INSPECTION - Extremities Exam Extremities Exam: Full ROM, Normal Capillary Refill, Normal Inspection. absent: Joint Swelling, Pedal Edema - Back Exam Back Exam: NORMAL INSPECTION - Neurological Exam Neurological Exam: Alert, Awake, CN II-XII Intact, Normal Gait, Oriented x3 - Psychiatric Exam Psychiatric exam: Normal Affect, Normal Mood - Skin Skin Exam: Dry, Intact, Normal Color, Warm Assessment and Plan (1) Pleural effusion, left Status: Acute (2) Pneumonia Status: Acute (3) Pleural effusion Status: Acute (4) AML (acute myeloblastic leukemia) Status: Chronic (5) Pancytopenia Status: Chronic - Assessment and Plan (Free Text) Assessment: IV rx ordered
[2019-01-07] MEDS: Micafungin 100 MG in Sodium Chloride 0.9% 100 ML IV SCH (00:02)
[2019-01-07] MEDS: Meropenem 1 GM in Sodium Chloride 0.9% 100 ML IVPB SCH ×3 (01:04→16:19)
--- NOTE | 2019-01-07 01:20 | CP.PCM.PN ---
Subjective - Date & Time of Evaluation Date of Evaluation: 01/05/19 Time of Evaluation: 19:00 - Subjective Subjective: Feels weak. Objective - Vital Signs/Intake and Output Vital Signs (last 24 hours): Temp Pulse Resp BP Pulse Ox 98.8 F 102 H 20 95/51 L 96 01/07/19 00:00 01/07/19 00:00 01/07/19 00:00 01/07/19 00:00 01/07/19 00:00 Intake and Output: 01/06/19 01/07/19 18:59 06:59 Intake Total 100 800 Output Total 200 Balance -100 800 - Medications Medications: Current Medications Acetaminophen (Tylenol 325mg Tab) 650 mg PO Q6 PRN PRN Reason: Pain, moderate (4-7) Last Admin: 01/04/19 21:04 Dose: 650 mg Acetaminophen (Tylenol 325mg Tab) 650 mg PO ONCE PRN PRN Reason: pre med Last Admin: 01/03/19 14:39 Dose: 650 mg Diphenhydramine HCl (Benadryl) 25 mg IVP ONCE PRN PRN Reason: PRIOR TO TRANSFUSION Last Admin: 01/02/19 13:02 Dose: 25 mg Diphenhydramine HCl (Benadryl) 25 mg PO ONCE PRN PRN Reason: pre med Last Admin: 01/03/19 14:39 Dose: 25 mg Docusate Sodium (Colace) 100 mg PO BID [facility] Last Admin: 01/06/19 17:38 Dose: 100 mg Furosemide (Lasix) 20 mg PO DAILY [facility] Last Admin: 01/06/19 11:16 Dose: Not Given Furosemide (Lasix) 20 mg IVP ONCE PRN PRN Reason: post transfusion Last Admin: 01/03/19 19:15 Dose: 20 mg Guaifenesin (Mucinex La) 600 mg PO BID [facility] Last Admin: 01/06/19 17:38 Dose: 600 mg Guaifenesin (Robitussin) 200 mg PO Q4H PRN PRN Reason: Cough and congestion Meropenem 1 gm/ Sodium (Chloride) 100 mls @ 100 mls/hr IVPB Q8H [facility]; Protocol Last Admin: 01/07/19 01:04 Dose: 100 mls/hr Micafungin Sodium 100 mg/ (Sodium Chloride) 100 mls @ 100 mls/hr IV Q24H [facility]; Protocol Last Admin: 01/07/19 00:02 Dose: 100 mls/hr Vancomycin HCl 1 gm/ Sodium (Chloride) 250 mls @ 166.7 mls/hr IVPB Q24H [facility]; Protocol Last Admin: 01/06/19 12:18 Dose: 166.7 mls/hr Dextrose/Sodium Chloride (Dextrose 5%/0.45% Ns 1000 Ml) 1,000 mls @ 100 mls/hr IV .Q10H [facility] Last Admin: 01/06/19 21:08 Dose: Not Given Lisinopril (Zestril) 5 mg PO DAILY [facility] Last Admin: 01/06/19 11:08 Dose: Not Given Ondansetron HCl (Zofran Inj) 4 mg IVP Q6H PRN PRN Reason: Nausea/Vomiting Pantoprazole Sodium (Protonix Ec Tab) 40 mg PO DAILY [facility] Last Admin: 01/06/19 11:08 Dose: 40 mg Saliva Substitute (First Magic Mouthwash) 5 ml PO Q6 [facility] Last Admin: 01/07/19 00:00 Dose: 5 ml Scopolamine (Transderm-Scop) 1 patch TD Q3D [facility] Last Admin: 01/05/19 10:22 Dose: 1 patch Tamsulosin HCl (Flomax) 0.4 mg PO BID [facility] Last Admin: 01/06/19 17:38 Dose: 0.4 mg - Labs Labs: 01/06/19 07:50 01/06/19 07:50 PT 15.8 SECONDS (9.7-12.2) H 12/29/18 06:30 INR 1.4 12/29/18 06:30 APTT 23 SECONDS (21-34) 12/29/18 06:30 - Head Exam Head Exam: ATRAUMATIC - Eye Exam Eye Exam: Normal appearance - ENT Exam ENT Exam: Mucous Membranes Dry - Respiratory Exam Respiratory Exam: Decreased Breath Sounds - Cardiovascular Exam Cardiovascular Exam: +S1, +S2 - GI/Abdominal Exam GI & Abdominal Exam: Normal Bowel Sounds Assessment and Plan (1) Pancytopenia Assessment & Plan: secondary to AML transfusion support PRN Status: Chronic (2) 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
--- NOTE | 2019-01-07 01:21 | CP.PCM.PN ---
Subjective - Date & Time of Evaluation Date of Evaluation: 01/06/19 Time of Evaluation: 12:00 - Subjective Subjective: Feels weak Objective - Vital Signs/Intake and Output Vital Signs (last 24 hours): Temp Pulse Resp BP Pulse Ox 98.8 F 102 H 20 95/51 L 96 01/07/19 00:00 01/07/19 00:00 01/07/19 00:00 01/07/19 00:00 01/07/19 00:00 Intake and Output: 01/06/19 01/07/19 18:59 06:59 Intake Total 100 800 Output Total 200 Balance -100 800 - Medications Medications: Current Medications Acetaminophen (Tylenol 325mg Tab) 650 mg PO Q6 PRN PRN Reason: Pain, moderate (4-7) Last Admin: 01/04/19 21:04 Dose: 650 mg Acetaminophen (Tylenol 325mg Tab) 650 mg PO ONCE PRN PRN Reason: pre med Last Admin: 01/03/19 14:39 Dose: 650 mg Diphenhydramine HCl (Benadryl) 25 mg IVP ONCE PRN PRN Reason: PRIOR TO TRANSFUSION Last Admin: 01/02/19 13:02 Dose: 25 mg Diphenhydramine HCl (Benadryl) 25 mg PO ONCE PRN PRN Reason: pre med Last Admin: 01/03/19 14:39 Dose: 25 mg Docusate Sodium (Colace) 100 mg PO BID [facility] Last Admin: 01/06/19 17:38 Dose: 100 mg Furosemide (Lasix) 20 mg PO DAILY [facility] Last Admin: 01/06/19 11:16 Dose: Not Given Furosemide (Lasix) 20 mg IVP ONCE PRN PRN Reason: post transfusion Last Admin: 01/03/19 19:15 Dose: 20 mg Guaifenesin (Mucinex La) 600 mg PO BID [facility] Last Admin: 01/06/19 17:38 Dose: 600 mg Guaifenesin (Robitussin) 200 mg PO Q4H PRN PRN Reason: Cough and congestion Meropenem 1 gm/ Sodium (Chloride) 100 mls @ 100 mls/hr IVPB Q8H [facility]; Protocol Last Admin: 01/07/19 01:04 Dose: 100 mls/hr Micafungin Sodium 100 mg/ (Sodium Chloride) 100 mls @ 100 mls/hr IV Q24H [facility]; Protocol Last Admin: 01/07/19 00:02 Dose: 100 mls/hr Vancomycin HCl 1 gm/ Sodium (Chloride) 250 mls @ 166.7 mls/hr IVPB Q24H [facility]; Protocol Last Admin: 01/06/19 12:18 Dose: 166.7 mls/hr Dextrose/Sodium Chloride (Dextrose 5%/0.45% Ns 1000 Ml) 1,000 mls @ 100 mls/hr IV .Q10H [facility] Last Admin: 01/06/19 21:08 Dose: Not Given Lisinopril (Zestril) 5 mg PO DAILY [facility] Last Admin: 01/06/19 11:08 Dose: Not Given Ondansetron HCl (Zofran Inj) 4 mg IVP Q6H PRN PRN Reason: Nausea/Vomiting Pantoprazole Sodium (Protonix Ec Tab) 40 mg PO DAILY [facility] Last Admin: 01/06/19 11:08 Dose: 40 mg Saliva Substitute (First Magic Mouthwash) 5 ml PO Q6 [facility] Last Admin: 01/07/19 00:00 Dose: 5 ml Scopolamine (Transderm-Scop) 1 patch TD Q3D [facility] Last Admin: 01/05/19 10:22 Dose: 1 patch Tamsulosin HCl (Flomax) 0.4 mg PO BID [facility] Last Admin: 01/06/19 17:38 Dose: 0.4 mg - Labs Labs: 01/06/19 07:50 01/06/19 07:50 PT 15.8 SECONDS (9.7-12.2) H 12/29/18 06:30 INR 1.4 12/29/18 06:30 APTT 23 SECONDS (21-34) 12/29/18 06:30 - Head Exam Head Exam: ATRAUMATIC - Eye Exam Eye Exam: Normal appearance - ENT Exam ENT Exam: Mucous Membranes Dry - Respiratory Exam Respiratory Exam: Decreased Breath Sounds - Cardiovascular Exam Cardiovascular Exam: +S1, +S2 - GI/Abdominal Exam GI & Abdominal Exam: Normal Bowel Sounds Assessment and Plan (1) Pancytopenia Assessment & Plan: secondary to AML transfusion support PRN Status: Chronic (2) AML (acute myeloblastic leukemia) Assessment & Plan: outpatient decitabine Status: Chronic
[2019-01-07] MEDS: Dextrose 5%/0.45% NS 1,000 ML IV SCH ×3 (03:30→16:18)
[2019-01-07] MEDS: Mag&Al/Simet/Diphen/Lido 237 ML KIT PO SCH ×5 (06:18→18:58)
[2019-01-07 07:56] LABS: HEMOGLOBIN 7.9 g/dL (12.0-18.0); MEAN CELL VOLUME 92.6 fL (80.0-94.0); MEAN CORPUSCULAR HEMOGLOBIN 30.4 pg (27.0-31.0); MEAN CORPUSCULAR HGB CONC 32.8 g/dL (33.0-37.0); MEAN PLATELET VOLUME 8.5 fL (7.2-11.7); RBC 2.6 Mil/uL (4.40-5.90); RED CELL DISTRIBUTION WIDTH 13.1 % (11.5-14.5)
[2019-01-07 08:06] LABS: WHITE BLOOD COUNT 0.2 K/uL (4.8-10.8)
[2019-01-07 08:09] LABS: NEUT % 3.6 % (50.0-75.0)
[2019-01-07 08:10] LABS: EOS # 1.3 K/uL (0.0-0.7); EOS % 1.2 % (0.0-4.0); MONO % 15.6 % (0.0-10.0)
[2019-01-07 08:11] LABS: LYMPH # 0.2 K/uL (1.0-4.3); LYMPH % 79.6 % (20.0-40.0); NRBC % 1.3 % (0.0-2.0)
[2019-01-07 08:17] LABS: ALB/GLOB RATIO 0.6 (1.0-2.1); ALBUMIN 1.6 g/dL (3.5-5.0); ALT/SGPT 24 U/L (21-72); AST/SGOT 29 U/L (17-59); BLOOD UREA NITROGEN 31 mg/dL (9-20); CALCIUM 7.6 mg/dl (8.6-10.4); GFR NON-AFRICAN AMERICAN > 60
--- NOTE | 2019-01-07 08:50 | CP.PCM.PN ---
<Radha Masterson - Last Filed: 01/07/19 13:22> Subjective - Date & Time of Evaluation Date of Evaluation: 01/07/19 Time of Evaluation: 08:47 - Subjective Subjective: Radha Masterson PGY1 Progress Note for Dr. Montoya Pt was examined at bedside this morning. He reports continuation of his cough overnight. He complains of abdominal pain that is intermittent, achy but not severe. As per daughter at bedside, pt did not eat dinner due to throat pain. Objective - Vital Signs/Intake and Output Vital Signs (last 24 hours): Temp Pulse Resp BP Pulse Ox 98.8 F 102 H 20 95/51 L 96 01/07/19 00:00 01/07/19 00:00 01/07/19 00:00 01/07/19 00:00 01/07/19 00:00 Intake and Output: 01/07/19 01/07/19 06:59 18:59 Intake Total 1720 Balance 1720 - Medications Medications: Current Medications Acetaminophen (Tylenol 325mg Tab) 650 mg PO Q6 PRN PRN Reason: Pain, moderate (4-7) Last Admin: 01/04/19 21:04 Dose: 650 mg Acetaminophen (Tylenol 325mg Tab) 650 mg PO ONCE PRN PRN Reason: pre med Last Admin: 01/03/19 14:39 Dose: 650 mg Diphenhydramine HCl (Benadryl) 25 mg IVP ONCE PRN PRN Reason: PRIOR TO TRANSFUSION Last Admin: 01/02/19 13:02 Dose: 25 mg Diphenhydramine HCl (Benadryl) 25 mg PO ONCE PRN PRN Reason: pre med Last Admin: 01/03/19 14:39 Dose: 25 mg Docusate Sodium (Colace) 100 mg PO BID [facility] Last Admin: 01/06/19 17:38 Dose: 100 mg Furosemide (Lasix) 20 mg PO DAILY [facility] Last Admin: 01/06/19 11:16 Dose: Not Given Furosemide (Lasix) 20 mg IVP ONCE PRN PRN Reason: post transfusion Last Admin: 01/03/19 19:15 Dose: 20 mg Guaifenesin (Mucinex La) 600 mg PO BID [facility] Last Admin: 01/06/19 17:38 Dose: 600 mg Guaifenesin (Robitussin) 200 mg PO Q4H PRN PRN Reason: Cough and congestion Meropenem 1 gm/ Sodium (Chloride) 100 mls @ 100 mls/hr IVPB Q8H [facility]; Protocol Last Admin: 01/07/19 01:04 Dose: 100 mls/hr Micafungin Sodium 100 mg/ (Sodium Chloride) 100 mls @ 100 mls/hr IV Q24H [facility]; Protocol Last Admin: 01/07/19 00:02 Dose: 100 mls/hr Vancomycin HCl 1 gm/ Sodium (Chloride) 250 mls @ 166.7 mls/hr IVPB Q24H [facility]; Protocol Last Admin: 01/06/19 12:18 Dose: 166.7 mls/hr Dextrose/Sodium Chloride (Dextrose 5%/0.45% Ns 1000 Ml) 1,000 mls @ 100 mls/hr IV .Q10H [facility] Last Admin: 01/07/19 03:30 Dose: 100 mls/hr Lisinopril (Zestril) 5 mg PO DAILY [facility] Last Admin: 01/06/19 11:08 Dose: Not Given Ondansetron HCl (Zofran Inj) 4 mg IVP Q6H PRN PRN Reason: Nausea/Vomiting Pantoprazole Sodium (Protonix Ec Tab) 40 mg PO DAILY [facility] Last Admin: 01/06/19 11:08 Dose: 40 mg Saliva Substitute (First Magic Mouthwash) 5 ml PO Q6 [facility] Last Admin: 01/07/19 06:19 Dose: 5 ml Scopolamine (Transderm-Scop) 1 patch TD Q3D [facility] Last Admin: 01/05/19 10:22 Dose: 1 patch Tamsulosin HCl (Flomax) 0.4 mg PO BID [facility] Last Admin: 01/06/19 17:38 Dose: 0.4 mg - Labs Labs: 01/07/19 07:43 01/07/19 07:43 PT 15.8 SECONDS (9.7-12.2) H 12/29/18 06:30 INR 1.4 12/29/18 06:30 APTT 23 SECONDS (21-34) 12/29/18 06:30 - Additional Findings Additional findings: - Constitutional Appears: Cachectic, Chronically Ill - Head Exam Head Exam: ATRAUMATIC, NORMOCEPHALIC - Eye Exam Eye Exam: Normal appearance Pupil Exam: NORMAL ACCOMODATION - ENT Exam ENT Exam: Mucous Membranes Dry - Respiratory Exam Respiratory Exam: Decreased Breath Sounds, NORMAL BREATHING PATTERN. absent: Rales, Rhonchi, Respiratory Distress - Cardiovascular Exam Cardiovascular Exam: REGULAR RHYTHM, +S1, +S2. absent: Gallop, Rubs, Murmur - GI/Abdominal Exam GI & Abdominal Exam: Soft, Normal Bowel Sounds. absent: Distended, Tenderness - Extremities Exam Extremities Exam: Pedal Edema Additional comments: b/l UE edema in hands - Neurological Exam Neurological Exam: Alert, Awake, Oriented x3 - Psychiatric Exam Psychiatric exam: Normal Affect, Normal Mood - Skin Skin Exam: Normal Color Assessment and Plan - Assessment and Plan (Free Text) Assessment: - Head Exam Head Exam: ATRAUMATIC, NORMAL INSPECTION - Eye Exam Eye Exam: EOMI, Normal appearance, PERRL Pupil Exam: NORMAL ACCOMODATION - ENT Exam ENT Exam: Mucous Membranes Moist, Normal Oropharynx - Respiratory Exam Respiratory Exam: Clear to Ausculation Bilateral, NORMAL BREATHING PATTERN. absent: Prolonged Expiratory Phase, Respiratory Distress - Cardiovascular Exam Cardiovascular Exam: REGULAR RHYTHM, +S1, +S2 - GI/Abdominal Exam GI & Abdominal Exam: Soft, Normal Bowel Sounds. absent: Hyperactive Bowel Sounds - Neurological Exam Neurological Exam: Alert, Awake, Oriented x3 - Psychiatric Exam Psychiatric exam: Normal Affect, Normal Mood. 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 Admitted for pleural effusions. Plan: AML, currently on chemo Oncologist Dr. Bobby consulted, help appreciated Received 3rd dose of Decitabine 12/24/18 Hb/Hct 7.9/24.1 Platelets 17 today 1u PRBC transfusion- 01/03/19 2u platelets transfusion- 01/02/19 2u PRBCs and 2u platelets transfusion received- 12/30/18 Neutropenic precautions Zofran 4mg Q6 PRN Healthcare Associated Pneumonia, with left sided Infiltrates Right sided Pleural effusion Cough Tmax 101.[address] Thurston consulted, help appreciated CXR 01/07: little interval change in large emphysematous bulla in left apex and upper lobe. persistent consodlidation in left lung with sparing of lower lobe. small effusions. CT chest: No CTA evidence for acute pulmonary embolism.Dense consolidation with air bronchogram in the left upper and lower lobes. Moderate right and small left pleural effusions. Multiple variable-sized parenchymal and subpleural nodules in the right lung, the largest in the right middle lobe measures 1.7 x 1.3 cm. These are nonspecific and could be infectious, inflammatory or neoplastic in etiology. Short-term interval follow-up is advised. Enlarged precarinal mediastinal lymph nodes, the largest measures 1.3 cm in transverse diameter. Mild cardiomegaly and small pericardial effusion. Saturating well on NC BCx negative to date UA +RBCs, no leuk est or nitrates UCx negative Sputum Cx: Staph. aureus only resistant to PCN ID Dr. 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 Montoya <Andrzej Montoya Jr. - Last Filed: 01/08/19 13:49> Objective - Vital Signs/Intake and Output Vital Signs (last 24 hours): Temp Pulse Resp BP Pulse Ox 98.6 F 99 H 20 107/68 95 01/08/19 08:28 01/08/19 08:28 01/08/19 08:28 01/08/19 09:24 01/08/19 08:28 Intake and Output: 01/08/19 01/08/19 06:59 18:59 Intake Total 1970 Output Total 241 Balance 1729 - Medications Medications: Current Medications Acetaminophen (Tylenol 325mg Tab) 650 mg PO Q6 PRN PRN Reason: Pain, moderate (4-7) Last Admin: 01/04/19 21:04 Dose: 650 mg Acetaminophen (Tylenol 325mg Tab) 650 mg PO ONCE PRN PRN Reason: pre med Last Admin: 01/03/19 14:39 Dose: 650 mg Diphenhydramine HCl (Benadryl) 25 mg IVP ONCE PRN PRN Reason: PRIOR TO TRANSFUSION Last Admin: 01/02/19 13:02 Dose: 25 mg Diphenhydramine HCl (Benadryl) 25 mg PO ONCE PRN PRN Reason: pre med Last Admin: 01/03/19 14:39 Dose: 25 mg Docusate Sodium (Colace) 100 mg PO BID [facility] Last Admin: 01/08/19 09:30 Dose: Not Given Furosemide (Lasix) 20 mg PO DAILY [facility] Last Admin: 01/08/19 09:24 Dose: 20 mg Furosemide (Lasix) 20 mg IVP ONCE PRN PRN Reason: post transfusion Last Admin: 01/03/19 19:15 Dose: 20 mg Guaifenesin (Mucinex La) 600 mg PO BID [facility] Last Admin: 01/08/19 09:24 Dose: 600 mg Guaifenesin (Robitussin) 200 mg PO Q4H PRN PRN Reason: Cough and congestion Meropenem 1 gm/ Sodium (Chloride) 100 mls @ 100 mls/hr IVPB Q8H [facility]; Protocol Last Admin: 01/08/19 08:24 Dose: 100 mls/hr Micafungin Sodium 100 mg/ (Sodium Chloride) 100 mls @ 100 mls/hr IV Q24H [facility]; Protocol Last Admin: 01/08/19 00:05 Dose: 100 mls/hr Vancomycin HCl 1 gm/ Sodium (Chloride) 250 mls @ 166.7 mls/hr IVPB Q24H [facility]; Protocol Last Admin: 01/08/19 09:23 Dose: 166.7 mls/hr Dextrose/Sodium Chloride (Dextrose 5%/0.45% Ns 1000 Ml) 1,000 mls @ 100 mls/hr IV .Q10H [facility] Last Admin: 01/08/19 13:08 Dose: Not Given Lisinopril (Zestril) 5 mg PO DAILY [facility] Last Admin: 01/08/19 09:25 Dose: 5 mg Morphine Sulfate (Morphine) 1 mg IV Q4H PRN PRN Reason: Pain, severe (8-10) Ondansetron HCl (Zofran Inj) 4 mg IVP Q6H PRN PRN Reason: Nausea/Vomiting Pantoprazole Sodium (Protonix Ec Tab) 40 mg PO DAILY [facility] Last Admin: 01/08/19 09:25 Dose: 40 mg Saliva Substitute (First Magic Mouthwash) 5 ml PO Q6 [facility] Last Admin: 01/08/19 12:30 Dose: 5 ml Scopolamine (Transderm-Scop) 1 patch TD Q3D [facility] Last Admin: 01/08/19 10:23 Dose: 1 patch Tamsulosin HCl (Flomax) 0.4 mg PO BID [facility] Last Admin: 01/08/19 09:24 Dose: 0.4 mg - Labs Labs: 01/08/19 07:20 01/08/19 07:20 PT 15.8 SECONDS (9.7-12.2) H 12/29/18 06:30 INR 1.4 12/29/18 06:30 APTT 23 SECONDS (21-34) 12/29/18 06:30 Attending/Attestation - Attestation I have personally seen and examined this patient.: Yes I have fully participated in the care of the patient.: Yes I have reviewed all pertinent clinical information, including history, physical exam and plan: Yes Notes (Text): 01/08/19 13:49 Reviewed resident note findings and plan of care. Agree with plan of care and findings.
[2019-01-07] MEDS: Pantoprazole 40 mg EC Tab PO SCH (10:09)
[2019-01-07] MEDS: guaiFENesin 600 mg ER Tab PO SCH ×2 (10:10→18:53)
--- NOTE | 2019-01-07 11:06 | CP.PCM.PN ---
Subjective - Date & Time of Evaluation Date of Evaluation: 01/07/19 Time of Evaluation: 09:00 - Subjective Subjective: Patient states his cough has improved though he reports that he does not have much of an appetite and eats very little. Denies dyspnea, chest pain, nausea, vomiting. Afebrile. Physical Exam Gen: AAOx3 Cardio: RRR, no murmur Pulm: Decreased breath sounds, crackles Abd: Soft, non-distended A/P Pneumonia - Cough with copious amounts of sputum - CXR 01/05 shows significant emphysematous changes with large left apical bulla. Significant consolidation with air bronchograms throughout most of the left lower and to a lesser degree the left upper lobe. Small left-sided effusion cannot be excluded. Previous right-sided effusion may have diminished. - Continue meropenem - Continue antifungal medication - Repeat CXR -Patient encouraged to drink supplement Objective - Vital Signs/Intake and Output Vital Signs (last 24 hours): Temp Pulse Resp BP Pulse Ox 99.2 F 98 H 20 95/51 L 98 01/07/19 08:00 01/07/19 08:00 01/07/19 08:00 01/07/19 10:11 01/07/19 08:00 Intake and Output: 01/07/19 01/07/19 06:59 18:59 Intake Total 1720 Balance 1720 - Medications Medications: Current Medications Acetaminophen (Tylenol 325mg Tab) 650 mg PO Q6 PRN PRN Reason: Pain, moderate (4-7) Last Admin: 01/04/19 21:04 Dose: 650 mg Acetaminophen (Tylenol 325mg Tab) 650 mg PO ONCE PRN PRN Reason: pre med Last Admin: 01/03/19 14:39 Dose: 650 mg Diphenhydramine HCl (Benadryl) 25 mg IVP ONCE PRN PRN Reason: PRIOR TO TRANSFUSION Last Admin: 01/02/19 13:02 Dose: 25 mg Diphenhydramine HCl (Benadryl) 25 mg PO ONCE PRN PRN Reason: pre med Last Admin: 01/03/19 14:39 Dose: 25 mg Docusate Sodium (Colace) 100 mg PO BID [facility] Last Admin: 01/07/19 10:11 Dose: 100 mg Furosemide (Lasix) 20 mg PO DAILY [facility] Last Admin: 01/07/19 10:11 Dose: Not Given Furosemide (Lasix) 20 mg IVP ONCE PRN PRN Reason: post transfusion Last Admin: 01/03/19 19:15 Dose: 20 mg Guaifenesin (Mucinex La) 600 mg PO BID [facility] Last Admin: 01/07/19 10:10 Dose: 600 mg Guaifenesin (Robitussin) 200 mg PO Q4H PRN PRN Reason: Cough and congestion Meropenem 1 gm/ Sodium (Chloride) 100 mls @ 100 mls/hr IVPB Q8H [facility]; Protocol Last Admin: 01/07/19 10:09 Dose: 100 mls/hr Micafungin Sodium 100 mg/ (Sodium Chloride) 100 mls @ 100 mls/hr IV Q24H [facility]; Protocol Last Admin: 01/07/19 00:02 Dose: 100 mls/hr Vancomycin HCl 1 gm/ Sodium (Chloride) 250 mls @ 166.7 mls/hr IVPB Q24H [facility]; Protocol Last Admin: 01/06/19 12:18 Dose: 166.7 mls/hr Dextrose/Sodium Chloride (Dextrose 5%/0.45% Ns 1000 Ml) 1,000 mls @ 100 mls/hr IV .Q10H [facility] Last Admin: 01/07/19 10:17 Dose: Not Given Lisinopril (Zestril) 5 mg PO DAILY [facility] Last Admin: 01/07/19 10:12 Dose: Not Given Ondansetron HCl (Zofran Inj) 4 mg IVP Q6H PRN PRN Reason: Nausea/Vomiting Pantoprazole Sodium (Protonix Ec Tab) 40 mg PO DAILY [facility] Last Admin: 01/07/19 10:09 Dose: 40 mg Saliva Substitute (First Magic Mouthwash) 5 ml PO Q6 [facility] Last Admin: 01/07/19 06:19 Dose: 5 ml Scopolamine (Transderm-Scop) 1 patch TD Q3D [facility] Last Admin: 01/05/19 10:22 Dose: 1 patch Tamsulosin HCl (Flomax) 0.4 mg PO BID [facility] Last Admin: 01/07/19 10:11 Dose: 0.4 mg - Labs Labs: 01/07/19 07:43 01/07/19 07:43 PT 15.8 SECONDS (9.7-12.2) H 12/29/18 06:30 INR 1.4 02/20/19 06:30 APTT 23 SECONDS (21-34) 12/29/18 06:30 Assessment and Plan (1) Pneumonia Status: Acute (2) Pleural effusion, left Status: Acute
--- NOTE | 2019-01-07 11:09 | RAD ---
Date of service: 01/07/2019 HISTORY: pt with pleural effusion COMPARISON: 01/05/2019. FINDINGS: LUNGS: Again seen is a large bulla in the left apex and upper lobe there is significant consolidation with air bronchogram in the left lung with relative sparing of the lower lobe. There is moderate pulmonary venous congestion. There is chronic scarring in the right upper lobe PLEURA: Small effusions. No pneumothorax CARDIOVASCULAR: Persistent mild cardiomegaly. There are aortic atherosclerotic calcifications present. OSSEOUS STRUCTURES: Within normal limits for the patient's age. VISUALIZED UPPER ABDOMEN: Normal. OTHER FINDINGS: None. IMPRESSION: Little interval change in large emphysematous bulla in the left apex and upper lobe. Persistent consolidation in the left lung with relative sparing of the lower lobe. Small effusions.
--- NOTE | 2019-01-07 18:37 | CP.PCM.PN ---
Subjective - Date & Time of Evaluation Date of Evaluation: 01/07/19 Time of Evaluation: 06:00 - Subjective Subjective: remains neutropenic afeb alert less cough no chest pain Objective - Vital Signs/Intake and Output Vital Signs (last 24 hours): Temp Pulse Resp BP Pulse Ox 98.2 F 96 H 20 100/53 L 96 01/07/19 16:00 01/07/19 16:00 01/07/19 16:00 01/07/19 16:00 01/07/19 16:00 Intake and Output: 01/07/19 01/07/19 06:59 18:59 Intake Total 1720 Balance 1720 - Medications Medications: Current Medications Acetaminophen (Tylenol 325mg Tab) 650 mg PO Q6 PRN PRN Reason: Pain, moderate (4-7) Last Admin: 01/04/19 21:04 Dose: 650 mg Acetaminophen (Tylenol 325mg Tab) 650 mg PO ONCE PRN PRN Reason: pre med Last Admin: 01/03/19 14:39 Dose: 650 mg Diphenhydramine HCl (Benadryl) 25 mg IVP ONCE PRN PRN Reason: PRIOR TO TRANSFUSION Last Admin: 01/02/19 13:02 Dose: 25 mg Diphenhydramine HCl (Benadryl) 25 mg PO ONCE PRN PRN Reason: pre med Last Admin: 01/03/19 14:39 Dose: 25 mg Docusate Sodium (Colace) 100 mg PO BID [facility] Last Admin: 01/07/19 10:11 Dose: 100 mg Furosemide (Lasix) 20 mg PO DAILY [facility] Last Admin: 01/07/19 10:11 Dose: Not Given Furosemide (Lasix) 20 mg IVP ONCE PRN PRN Reason: post transfusion Last Admin: 01/03/19 19:15 Dose: 20 mg Guaifenesin (Mucinex La) 600 mg PO BID [facility] Last Admin: 01/07/19 10:10 Dose: 600 mg Guaifenesin (Robitussin) 200 mg PO Q4H PRN PRN Reason: Cough and congestion Meropenem 1 gm/ Sodium (Chloride) 100 mls @ 100 mls/hr IVPB Q8H [facility]; Protocol Last Admin: 01/07/19 16:19 Dose: 100 mls/hr Micafungin Sodium 100 mg/ (Sodium Chloride) 100 mls @ 100 mls/hr IV Q24H [facility]; Protocol Last Admin: 01/07/19 00:02 Dose: 100 mls/hr Vancomycin HCl 1 gm/ Sodium (Chloride) 250 mls @ 166.7 mls/hr IVPB Q24H [facility]; Protocol Last Admin: 01/07/19 12:01 Dose: 166.7 mls/hr Dextrose/Sodium Chloride (Dextrose 5%/0.45% Ns 1000 Ml) 1,000 mls @ 100 mls/hr IV .Q10H [facility] Last Admin: 01/07/19 16:18 Dose: 100 mls/hr Lisinopril (Zestril) 5 mg PO DAILY [facility] Last Admin: 01/07/19 10:12 Dose: Not Given Ondansetron HCl (Zofran Inj) 4 mg IVP Q6H PRN PRN Reason: Nausea/Vomiting Pantoprazole Sodium (Protonix Ec Tab) 40 mg PO DAILY [facility] Last Admin: 01/07/19 10:09 Dose: 40 mg Saliva Substitute (First Magic Mouthwash) 5 ml PO Q6 [facility] Last Admin: 01/07/19 12:02 Dose: 5 ml Scopolamine (Transderm-Scop) 1 patch TD Q3D [facility] Last Admin: 01/05/19 10:22 Dose: 1 patch Tamsulosin HCl (Flomax) 0.4 mg PO BID [facility] Last Admin: 01/07/19 10:11 Dose: 0.4 mg - Labs Labs: 01/07/19 07:43 01/07/19 07:43 PT 15.8 SECONDS (9.7-12.2) H 12/29/18 06:30 INR 1.4 12/29/18 06:30 APTT 23 SECONDS (21-34) 12/29/18 06:30 - Constitutional Appears: Non-toxic, No Acute Distress, Cachectic, Chronically Ill - Head Exam Head Exam: ATRAUMATIC, NORMAL INSPECTION, NORMOCEPHALIC - Eye Exam Eye Exam: EOMI, Normal appearance, PERRL Pupil Exam: NORMAL ACCOMODATION, PERRL - ENT Exam ENT Exam: Mucous Membranes Moist, Normal Exam - Neck Exam Neck Exam: Full ROM, Normal Inspection. absent: Lymphadenopathy - Respiratory Exam Respiratory Exam: Clear to Ausculation Bilateral, NORMAL BREATHING PATTERN - Cardiovascular Exam Cardiovascular Exam: REGULAR RHYTHM, +S1, +S2. absent: Murmur - GI/Abdominal Exam GI & Abdominal Exam: Soft, Normal Bowel Sounds. absent: Tenderness - Rectal Exam Rectal Exam: Deferred - Exam Exam: NORMAL INSPECTION - Extremities Exam Extremities Exam: Full ROM, Normal Capillary Refill, Normal Inspection. absent: Joint Swelling, Pedal Edema - Back Exam Back Exam: NORMAL INSPECTION - Neurological Exam Neurological Exam: Alert, Awake, CN II-XII Intact, Normal Gait, Oriented x3 - Psychiatric Exam Psychiatric exam: Normal Affect, Normal Mood - Skin Skin Exam: Dry, Intact, Normal Color, Warm Assessment and Plan (1) Pleural effusion, left Status: Acute (2) Pneumonia Status: Acute (3) Pleural effusion Status: Acute (4) AML (acute myeloblastic leukemia) Status: Chronic (5) Pancytopenia Status: Chronic - Assessment and Plan (Free Text) Assessment: AML s/p chemo with neutropenic fevers and pneumonia IV rx in progress
[2019-01-08] MEDS: Micafungin 100 MG in Sodium Chloride 0.9% 100 ML IV SCH (00:05)
[2019-01-08] MEDS: Mag&Al/Simet/Diphen/Lido 237 ML KIT PO SCH ×4 (00:05→18:00)
[2019-01-08] MEDS: Meropenem 1 GM in Sodium Chloride 0.9% 100 ML IVPB SCH ×3 (01:16→17:00)
[2019-01-08] MEDS: Dextrose 5%/0.45% NS 1,000 ML IV SCH ×4 (03:03→23:52)
[2019-01-08 07:31] LABS: LYMPH # 0.2 K/uL (1.0-4.3); LYMPH % 72.5 % (20.0-40.0); MEAN CORPUSCULAR HEMOGLOBIN 30.5 pg (27.0-31.0); MEAN CORPUSCULAR HGB CONC 32.8 g/dL (33.0-37.0); MEAN PLATELET VOLUME 8.8 fL (7.2-11.7); MONO # 0.1 K/uL (0.0-0.8); MONO % 25.5 % (0.0-10.0); RBC 2.18 Mil/uL (4.40-5.90); RED CELL DISTRIBUTION WIDTH 12.7 % (11.5-14.5)
[2019-01-08 07:37] LABS: HEMOGLOBIN 6.6 g/dL (12.0-18.0); WHITE BLOOD COUNT 0.2 K/uL (4.8-10.8)
[2019-01-08 07:51] LABS: ALB/GLOB RATIO 0.7 (1.0-2.1); ALBUMIN 1.4 g/dL (3.5-5.0); ALT/SGPT 28 U/L (21-72); AST/SGOT 13 U/L (17-59); BLOOD UREA NITROGEN 25 mg/dL (9-20); CALCIUM 7.2 mg/dl (8.6-10.4); GFR NON-AFRICAN AMERICAN > 60
--- NOTE | 2019-01-08 08:37 | CP.PCM.PN ---
Subjective - Date & Time of Evaluation Date of Evaluation: 01/08/19 Time of Evaluation: 08:36 - Subjective Subjective: Radha Masterson PGY1 Progress Note for Dr. Montoya Pt was examined at bedside this morning. He reports abdominal pain. Pt refused central or peripheral line. He stated that he did not want to be intubated. Objective - Vital Signs/Intake and Output Vital Signs (last 24 hours): Temp Pulse Resp BP Pulse Ox 98.6 F 99 H 20 105/66 95 01/08/19 08:28 01/08/19 08:28 01/08/19 08:28 01/08/19 08:28 01/08/19 08:28 Intake and Output: 01/08/19 01/08/19 06:59 18:59 Intake Total 1970 Output Total 241 Balance 1729 - Medications Medications: Current Medications Acetaminophen (Tylenol 325mg Tab) 650 mg PO Q6 PRN PRN Reason: Pain, moderate (4-7) Last Admin: 01/04/19 21:04 Dose: 650 mg Acetaminophen (Tylenol 325mg Tab) 650 mg PO ONCE PRN PRN Reason: pre med Last Admin: 01/03/19 14:39 Dose: 650 mg Diphenhydramine HCl (Benadryl) 25 mg IVP ONCE PRN PRN Reason: PRIOR TO TRANSFUSION Last Admin: 01/02/19 13:02 Dose: 25 mg Diphenhydramine HCl (Benadryl) 25 mg PO ONCE PRN PRN Reason: pre med Last Admin: 01/03/19 14:39 Dose: 25 mg Docusate Sodium (Colace) 100 mg PO BID [facility] Last Admin: 01/07/19 18:52 Dose: 100 mg Furosemide (Lasix) 20 mg PO DAILY [facility] Last Admin: 01/07/19 10:11 Dose: Not Given Furosemide (Lasix) 20 mg IVP ONCE PRN PRN Reason: post transfusion Last Admin: 01/03/19 19:15 Dose: 20 mg Guaifenesin (Mucinex La) 600 mg PO BID [facility] Last Admin: 01/07/19 18:53 Dose: 600 mg Guaifenesin (Robitussin) 200 mg PO Q4H PRN PRN Reason: Cough and congestion Meropenem 1 gm/ Sodium (Chloride) 100 mls @ 100 mls/hr IVPB Q8H [facility]; Protocol Last Admin: 01/08/19 08:24 Dose: 100 mls/hr Micafungin Sodium 100 mg/ (Sodium Chloride) 100 mls @ 100 mls/hr IV Q24H [facility]; Protocol Last Admin: 01/08/19 00:05 Dose: 100 mls/hr Vancomycin HCl 1 gm/ Sodium (Chloride) 250 mls @ 166.7 mls/hr IVPB Q24H [facility]; Protocol Last Admin: 01/07/19 12:01 Dose: 166.7 mls/hr Dextrose/Sodium Chloride (Dextrose 5%/0.45% Ns 1000 Ml) 1,000 mls @ 100 mls/hr IV .Q10H [facility] Last Admin: 01/08/19 06:03 Dose: 100 mls/hr Lisinopril (Zestril) 5 mg PO DAILY [facility] Last Admin: 01/07/19 10:12 Dose: Not Given Ondansetron HCl (Zofran Inj) 4 mg IVP Q6H PRN PRN Reason: Nausea/Vomiting Pantoprazole Sodium (Protonix Ec Tab) 40 mg PO DAILY [facility] Last Admin: 01/07/19 10:09 Dose: 40 mg Saliva Substitute (First Magic Mouthwash) 5 ml PO Q6 [facility] Last Admin: 01/08/19 06:01 Dose: 5 ml Scopolamine (Transderm-Scop) 1 patch TD Q3D [facility] Last Admin: 01/05/19 10:22 Dose: 1 patch Tamsulosin HCl (Flomax) 0.4 mg PO BID [facility] Last Admin: 01/07/19 18:52 Dose: 0.4 mg - Labs Labs: 01/08/19 07:20 01/08/19 07:20 PT 15.8 SECONDS (9.7-12.2) H 12/29/18 06:30 INR 1.4 12/29/18 06:30 APTT 23 SECONDS (21-34) 12/29/18 06:30 - Additional Findings Additional findings: - Constitutional Appears: Cachectic, Chronically Ill - Head Exam Head Exam: ATRAUMATIC, NORMOCEPHALIC - Eye Exam Eye Exam: Normal appearance Pupil Exam: NORMAL ACCOMODATION - ENT Exam ENT Exam: Mucous Membranes Dry - Respiratory Exam Respiratory Exam: Decreased Breath Sounds, NORMAL BREATHING PATTERN. absent: Ra les, Rhonchi, Respiratory Distress - Cardiovascular Exam Cardiovascular Exam: REGULAR RHYTHM, +S1, +S2. absent: Gallop, Rubs, Murmur - GI/Abdominal Exam GI & Abdominal Exam: Soft, Normal Bowel Sounds. 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 Admitted for pleural effusions. Currently not able to transfuse PRBCs as pt does not want central or further peripheral lines at this time. He states he does not want to be intubated. Plan: AML, currently on chemo Oncologist Dr. Bobby consulted, help appreciated Received 3rd dose of Decitabine 12/24/18 Hb/Hct 76.6/20.3 today Platelets 25 today 1u PRBC transfusion- 01/03/19 2u platelets transfusion- 01/02/19 2u PRBCs and 2u platelets transfusion received- 12/30/18 cannot transfuse as pt currently denies central and peripheral line insertion Neutropenic precautions Zofran 4mg Q6 PRN Healthcare Associated Pneumonia, with left sided Infiltrates Right sided Pleural effusion Cough Chemist Organic Dr. Thurston consulted, help appreciated CXR 01/07: little interval change in large emphysematous bulla in left apex and upper lobe. persistent consodlidation in left lung with sparing of lower lobe. small effusions. CT chest: No CTA evidence for acute pulmonary embolism.Dense consolidation with air bronchogram in the left upper and lower lobes. Moderate right and small left pleural effusions. Multiple variable-sized parenchymal and subpleural nodules in the right lung, the largest in the right middle lobe measures 1.7 x 1.3 cm. These are nonspecific and could be infectious, inflammatory or neoplastic in etiology. Short-term interval follow-up is advised. Enlarged precarinal mediastinal lymph nodes, the largest measures 1.3 cm in transverse diameter. Mild cardiomegaly and small pericardial effusion. Saturating well on NC BCx negative to date UA +RBCs, no leuk est or nitrates UCx negative Sputum Cx: Staph. aureus only resistant to PCN ID Dr. Ferrari consulted, help appreciated Vancomycin 1g IV daily started 12/29/18 Merem 500mg IV Q8 started 12/29/18 Micofungin 100mg IV q24h (12/26/18) Negative legionella, strep pneumonia, mycoplasma, quantiferon, beta glucan, flu D-dimer 2156 D51/2NS @100cc/hr Lasix 20mg PO daily Robitussin Scopolamine patch Mucinex 600mg PO BID Magic mouthwash hep lock changed 01/06 History of BPH Flomax 0.4mg PO BID History of HTN Lisinopril 5mg PO daily Hold for low blood pressure Poor Nutrition encourage PO intake Repair Miller consulted, recs appreciated Low Microbial Diet Ensure Enlive TID B12 842, wnl Prophylaxis: Protonix SCDs PT/OT DNI Case discussed with Dr. Montoya
[2019-01-08] MEDS: guaiFENesin 600 mg ER Tab PO SCH (09:24)
[2019-01-08] MEDS: Pantoprazole 40 mg EC Tab PO SCH (09:25)
[2019-01-08] MEDS ORDERED: Promethazine 6.25 MG/5 ML CUP PO PRN (15:58)
--- NOTE | 2019-01-08 16:03 | CP.PCM.PN ---
Subjective - Date & Time of Evaluation Date of Evaluation: 01/08/19 Time of Evaluation: 15:00 - Subjective Subjective: Patient seen and examined Still complaining of cough but denies any hemoptysis Patient is awake and responsive Objective - Vital Signs/Intake and Output Vital Signs (last 24 hours): Temp Pulse Resp BP Pulse Ox 98.6 F 99 H 20 107/68 95 01/08/19 08:28 01/08/19 08:28 01/08/19 08:28 01/08/19 09:24 01/08/19 08:28 Intake and Output: 01/08/19 01/08/19 06:59 18:59 Intake Total 1970 1100 Output Total 241 202 Balance 1729 898 - Medications Medications: Current Medications Acetaminophen (Tylenol 325mg Tab) 650 mg PO Q6 PRN PRN Reason: Pain, moderate (4-7) Last Admin: 01/04/19 21:04 Dose: 650 mg Acetaminophen (Tylenol 325mg Tab) 650 mg PO ONCE PRN PRN Reason: pre med Last Admin: 01/03/19 14:39 Dose: 650 mg Diphenhydramine HCl (Benadryl) 25 mg IVP ONCE PRN PRN Reason: PRIOR TO TRANSFUSION Last Admin: 01/02/19 13:02 Dose: 25 mg Diphenhydramine HCl (Benadryl) 25 mg PO ONCE PRN PRN Reason: pre med Last Admin: 01/03/19 14:39 Dose: 25 mg Docusate Sodium (Colace) 100 mg PO BID [facility] Last Admin: 01/08/19 09:30 Dose: Not Given Furosemide (Lasix) 20 mg PO DAILY [facility] Last Admin: 01/08/19 09:24 Dose: 20 mg Furosemide (Lasix) 20 mg IVP ONCE PRN PRN Reason: post transfusion Last Admin: 01/03/19 19:15 Dose: 20 mg Guaifenesin (Robitussin) 200 mg PO Q4H PRN PRN Reason: Cough and congestion Meropenem 1 gm/ Sodium (Chloride) 100 mls @ 100 mls/hr IVPB Q8H [facility]; Protocol Last Admin: 01/08/19 08:24 Dose: 100 mls/hr Micafungin Sodium 100 mg/ (Sodium Chloride) 100 mls @ 100 mls/hr IV Q24H [facility]; Protocol Last Admin: 01/08/19 00:05 Dose: 100 mls/hr Vancomycin HCl 1 gm/ Sodium (Chloride) 250 mls @ 166.7 mls/hr IVPB Q24H [facility]; Protocol Last Admin: 01/08/19 09:23 Dose: 166.7 mls/hr Dextrose/Sodium Chloride (Dextrose 5%/0.45% Ns 1000 Ml) 1,000 mls @ 100 mls/hr IV .Q10H [facility] Last Admin: 01/08/19 13:08 Dose: Not Given Lisinopril (Zestril) 5 mg PO DAILY [facility] Last Admin: 01/08/19 09:25 Dose: 5 mg Morphine Sulfate (Morphine) 1 mg IV Q4H PRN PRN Reason: Pain, severe (8-10) Ondansetron HCl (Zofran Inj) 4 mg IVP Q6H PRN PRN Reason: Nausea/Vomiting Pantoprazole Sodium (Protonix Ec Tab) 40 mg PO DAILY [facility] Last Admin: 01/08/19 09:25 Dose: 40 mg Promethazine HCl (Phenergan Syrup) 6.25 mg PO Q6 PRN PRN Reason: Cough Saliva Substitute (First Magic Mouthwash) 5 ml PO Q6 [facility] Last Admin: 01/08/19 12:30 Dose: 5 ml Scopolamine (Transderm-Scop) 1 patch TD Q3D [facility] Last Admin: 01/08/19 10:23 Dose: 1 patch Tamsulosin HCl (Flomax) 0.4 mg PO BID [facility] Last Admin: 01/08/19 09:24 Dose: 0.4 mg - Labs Labs: 01/08/19 07:20 01/08/19 07:20 PT 15.8 SECONDS (9.7-12.2) H 12/29/18 06:30 INR 1.4 12/29/18 06:30 APTT 23 SECONDS (21-34) 12/29/18 06:30 - Head Exam Head Exam: ATRAUMATIC, NORMOCEPHALIC - ENT Exam ENT Exam: Mucous Membranes Moist - Respiratory Exam Respiratory Exam: Decreased Breath Sounds - Cardiovascular Exam Cardiovascular Exam: REGULAR RHYTHM - GI/Abdominal Exam GI & Abdominal Exam: Soft Assessment and Plan (1) Pneumonia Assessment & Plan: Continue antibiotics Start promethazine DC Mucinex Transfuse packed RBCs Consider PICC line Status: Acute (2) Pancytopenia Status: Acute (3) Pleural effusion, left Status: Acute
[2019-01-08] MEDS: DiphenhydrAMINE 50 mg/ml Inj IVP PRN (21:04)
[2019-01-09] MEDS: Mag&Al/Simet/Diphen/Lido 237 ML KIT PO SCH ×6 (00:26→23:50)
[2019-01-09] MEDS: Micafungin 100 MG in Sodium Chloride 0.9% 100 ML IV SCH ×2 (00:27→23:49)
[2019-01-09] MEDS: DiphenhydrAMINE 50 mg/ml Inj IVP PRN (01:49)
[2019-01-09] MEDS: Meropenem 1 GM in Sodium Chloride 0.9% 100 ML IVPB SCH ×3 (02:25→17:00)
[2019-01-09] MEDS: Dextrose 5%/0.45% NS 1,000 ML IV SCH ×2 (05:27→08:29)
[2019-01-09 08:41] LABS: EOS % 0.4 % (0.0-4.0); HEMOGLOBIN 8.2 g/dL (12.0-18.0); LYMPH # 0.2 K/uL (1.0-4.3); LYMPH % 77.4 % (20.0-40.0); MEAN CORPUSCULAR HGB CONC 33.7 g/dL (33.0-37.0); MEAN PLATELET VOLUME 8.9 fL (7.2-11.7); MONO % 18.5 % (0.0-10.0); NEUT % 3.7 % (50.0-75.0); NRBC % 1.5 % (0.0-2.0); RBC 2.66 Mil/uL (4.40-5.90); RED CELL DISTRIBUTION WIDTH 12.5 % (11.5-14.5)
[2019-01-09 08:51] LABS: WHITE BLOOD COUNT 0.2 K/uL (4.8-10.8)
[2019-01-09 09:10] LABS: ALB/GLOB RATIO 0.6 (1.0-2.1); ALBUMIN 1.4 g/dL (3.5-5.0); ALT/SGPT 27 U/L (21-72); AST/SGOT 10 U/L (17-59); BLOOD UREA NITROGEN 26 mg/dL (9-20); CALCIUM 7.6 mg/dl (8.6-10.4); GFR NON-AFRICAN AMERICAN > 60
[2019-01-09] MEDS: Pantoprazole 40 mg EC Tab PO SCH (09:41)
--- NOTE | 2019-01-09 11:10 | CP.PCM.PN ---
Subjective - Date & Time of Evaluation Date of Evaluation: 01/09/19 Time of Evaluation: 11:09 - Subjective Subjective: Radha Masterson PGY1 Progress Note for Dr. Montoya pt was examined at bedside this morning. He is not complaining of abdominal pain at this time. As per overnight team, pt does not wish to discuss resuscitation status. Objective - Vital Signs/Intake and Output Vital Signs (last 24 hours): Temp Pulse Resp BP Pulse Ox 97.8 F 91 H 18 105/65 95 01/09/19 09:04 01/09/19 09:04 01/09/19 09:04 01/09/19 09:42 01/09/19 09:04 Intake and Output: 01/09/19 01/09/19 06:59 18:59 Intake Total 1675 525 Balance 1675 525 - Medications Medications: Current Medications Acetaminophen (Tylenol 325mg Tab) 650 mg PO Q6 PRN PRN Reason: Pain, moderate (4-7) Last Admin: 01/08/19 21:02 Dose: 650 mg Acetaminophen (Tylenol 325mg Tab) 650 mg PO ONCE PRN PRN Reason: pre med Last Admin: 01/09/19 01:35 Dose: 650 mg Diphenhydramine HCl (Benadryl) 25 mg IVP ONCE PRN PRN Reason: PRIOR TO TRANSFUSION Last Admin: 01/09/19 01:49 Dose: 25 mg Diphenhydramine HCl (Benadryl) 25 mg PO ONCE PRN PRN Reason: pre med Last Admin: 01/03/19 14:39 Dose: 25 mg Docusate Sodium (Colace) 100 mg PO BID [facility] Last Admin: 01/09/19 09:44 Dose: Not Given Furosemide (Lasix) 20 mg PO DAILY [facility] Last Admin: 01/09/19 09:42 Dose: 20 mg Furosemide (Lasix) 20 mg IVP ONCE PRN PRN Reason: post transfusion Last Admin: 01/03/19 19:15 Dose: 20 mg Guaifenesin (Robitussin) 200 mg PO Q4H PRN PRN Reason: Cough and congestion Meropenem 1 gm/ Sodium (Chloride) 100 mls @ 100 mls/hr IVPB Q8H [facility]; Protocol Last Admin: 01/09/19 08:34 Dose: 100 mls/hr Micafungin Sodium 100 mg/ (Sodium Chloride) 100 mls @ 100 mls/hr IV Q24H [facility]; Protocol Last Admin: 01/09/19 00:27 Dose: 100 mls/hr Vancomycin HCl 1 gm/ Sodium (Chloride) 250 mls @ 166.7 mls/hr IVPB Q24H [facility]; Protocol Last Admin: 01/09/19 09:44 Dose: 166.7 mls/hr Dextrose/Sodium Chloride (Dextrose 5%/0.45% Ns 1000 Ml) 1,000 mls @ 100 mls/hr IV .Q10H [facility] Last Admin: 01/09/19 08:29 Dose: Not Given Lisinopril (Zestril) 5 mg PO DAILY [facility] Last Admin: 01/09/19 09:42 Dose: 5 mg Morphine Sulfate (Morphine) 1 mg IV Q4H PRN PRN Reason: Pain, severe (8-10) Ondansetron HCl (Zofran Inj) 4 mg IVP Q6H PRN PRN Reason: Nausea/Vomiting Pantoprazole Sodium (Protonix Ec Tab) 40 mg PO DAILY [facility] Last Admin: 01/09/19 09:41 Dose: 40 mg Promethazine HCl (Phenergan Syrup) 6.25 mg PO Q6 PRN PRN Reason: Cough Saliva Substitute (First Magic Mouthwash) 5 ml PO Q6 [facility] Last Admin: 01/09/19 05:26 Dose: 5 ml Scopolamine (Transderm-Scop) 1 patch TD Q3D [facility] Last Admin: 01/08/19 10:23 Dose: 1 patch Tamsulosin HCl (Flomax) 0.4 mg PO BID [facility] Last Admin: 01/09/19 09:42 Dose: 0.4 mg - Labs Labs: 01/09/19 08:15 01/09/19 08:15 PT 15.8 SECONDS (9.7-12.2) H 12/29/18 06:30 INR 1.4 12/29/18 06:30 APTT 23 SECONDS (21-34) 12/29/18 06:30 - Additional Findings Additional findings: - Constitutional Appears: Cachectic, Chronically Ill - Head Exam Head Exam: ATRAUMATIC, NORMOCEPHALIC - Eye Exam Eye Exam: Normal appearance Pupil Exam: NORMAL ACCOMODATION - ENT Exam ENT Exam: Mucous Membranes Dry - Respiratory Exam Respiratory Exam: Decreased Breath Sounds, NORMAL BREATHING PATTERN. absent: Rales, Rhonchi, Respiratory Distress - Cardiovascular Exam Cardiovascular Exam: REGULAR RHYTHM, +S1, +S2. absent: Gallop, Rubs, Murmur - GI/Abdominal Exam GI & Abdominal Exam: Soft, Normal Bowel Sounds. 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 Admitted for pleural effusions. He states he does not want to be intubated. Plan: AML, currently on chemo Oncologist Dr. Bobby consulted, help appreciated Received 3rd dose of Decitabine 12/24/18 Hb/Hct 8.2/24.5 today Platelets 26 today 2u PRBC transfusion- 01/08/19 1u PRBC transfusion- 01/03/19 2u platelets transfusion- 01/02/19 2u PRBCs and 2u platelets transfusion received- 12/30/18 cannot transfuse as pt currently denies central and peripheral line insertion Neutropenic precautions Zofran 4mg Q6 PRN Healthcare Associated Pneumonia, with left sided Infiltrates Right sided Pleural effusion Cough X Ray Nurse Dr. Thurston consulted, help appreciated CXR 01/07: little interval change in large emphysematous bulla in left apex and upper lobe. persistent consodlidation in left lung with sparing of lower lobe. small effusions. CT chest: No CTA evidence for acute pulmonary embolism.Dense consolidation with air bronchogram in the left upper and lower lobes. Moderate right and small left pleural effusions. Multiple variable-sized parenchymal and subpleural nodules in the right lung, the largest in the right middle lobe measures 1.7 x 1.3 cm. These are nonspecific and could be infectious, inflammatory or neoplastic in etiology. Short-term interval follow-up is advised. Enlarged precarinal mediastinal lymph nodes, the largest measures 1.3 cm in transverse diameter. Mild cardiomegaly and small pericardial effusion. Saturating well on NC BCx negative to date UA +RBCs, no leuk est or nitrates UCx negative Sputum Cx: Staph. aureus only resistant to PCN ID Dr. Ferrari consulted, help appreciated Vancomycin 1g IV daily started 12/29/18 Merem 500mg IV Q8 started 12/29/18 Micofungin 100mg IV q24h (12/26/18) Negative legionella, strep pneumonia, mycoplasma, quantiferon, beta glucan, flu D-dimer 2156 D51/2NS @100cc/hr Lasix 20mg PO daily Phenergan PO PRN Scopolamine patch Mucinex 600mg PO BID Magic mouthwash History of BPH Flomax 0.4mg PO BID History of HTN Lisinopril 5mg PO daily Hold for low blood pressure Poor Nutrition encourage PO intake Pollution Control Engineer consulted, recs appreciated Low Microbial Diet Ensure Enlive TID B12 842, wnl Prophylaxis: Protonix SCDs PT/OT DNI Case discussed with Dr. Montoya
--- NOTE | 2019-01-09 11:11 | CP.PCM.PN ---
Subjective - Date & Time of Evaluation Date of Evaluation: 01/09/19 Time of Evaluation: 11:09 - Subjective Subjective: Pulmonary follow up, Covering Dr Thurston The Patient was seen and examined at the bedside, Medical records reviewed, and management issues were discussed and formulated with the house staff. Events reviewed 8-year-old male with history of HTN, recurrent pleural effusion and pneumothorax, AML on chemotherapy Who presented with shortness of breath, cough and hypoxemia. CAT scan of the chest consistent with diffuse left lung infiltrate and small pleural effusion. Started on antibiotics Patient is doing better today cough improved less shortness of breath and denies chest pain No fever or chills On exam he is awake oriented comfortable and does not appear to be in any distress Afebrile appetite improved Patient seen and examined at bedside. He states he still experiences cough but it has improved. Objective - Vital Signs/Intake and Output Vital Signs (last 24 hours): Temp Pulse Resp BP Pulse Ox 97.8 F 91 H 18 105/65 95 01/09/19 09:04 01/09/19 09:04 01/09/19 09:04 01/09/19 09:42 01/09/19 09:04 Intake and Output: 01/09/19 01/09/19 06:59 18:59 Intake Total 1675 525 Balance 1675 525 - Medications Medications: Current Medications Acetaminophen (Tylenol 325mg Tab) 650 mg PO Q6 PRN PRN Reason: Pain, moderate (4-7) Last Admin: 01/08/19 21:02 Dose: 650 mg Acetaminophen (Tylenol 325mg Tab) 650 mg PO ONCE PRN PRN Reason: pre med Last Admin: 01/09/19 01:35 Dose: 650 mg Diphenhydramine HCl (Benadryl) 25 mg IVP ONCE PRN PRN Reason: PRIOR TO TRANSFUSION Last Admin: 01/09/19 01:49 Dose: 25 mg Diphenhydramine HCl (Benadryl) 25 mg PO ONCE PRN PRN Reason: pre med Last Admin: 01/03/19 14:39 Dose: 25 mg Docusate Sodium (Colace) 100 mg PO BID [facility] Last Admin: 01/09/19 09:44 Dose: Not Given Furosemide (Lasix) 20 mg PO DAILY [facility] Last Admin: 01/09/19 09:42 Dose: 20 mg Furosemide (Lasix) 20 mg IVP ONCE PRN PRN Reason: post transfusion Last Admin: 01/03/19 19:15 Dose: 20 mg Guaifenesin (Robitussin) 200 mg PO Q4H PRN PRN Reason: Cough and congestion Meropenem 1 gm/ Sodium (Chloride) 100 mls @ 100 mls/hr IVPB Q8H [facility]; Protocol Last Admin: 01/09/19 08:34 Dose: 100 mls/hr Micafungin Sodium 100 mg/ (Sodium Chloride) 100 mls @ 100 mls/hr IV Q24H [facility]; Protocol Last Admin: 01/09/19 00:27 Dose: 100 mls/hr Vancomycin HCl 1 gm/ Sodium (Chloride) 250 mls @ 166.7 mls/hr IVPB Q24H [facility]; Protocol Last Admin: 01/09/19 09:44 Dose: 166.7 mls/hr Dextrose/Sodium Chloride (Dextrose 5%/0.45% Ns 1000 Ml) 1,000 mls @ 100 mls/hr IV .Q10H [facility] Last Admin: 01/09/19 08:29 Dose: Not Given Lisinopril (Zestril) 5 mg PO DAILY [facility] Last Admin: 01/09/19 09:42 Dose: 5 mg Morphine Sulfate (Morphine) 1 mg IV Q4H PRN PRN Reason: Pain, severe (8-10) Ondansetron HCl (Zofran Inj) 4 mg IVP Q6H PRN PRN Reason: Nausea/Vomiting Pantoprazole Sodium (Protonix Ec Tab) 40 mg PO DAILY [facility] Last Admin: 01/09/19 09:41 Dose: 40 mg Promethazine HCl (Phenergan Syrup) 6.25 mg PO Q6 PRN PRN Reason: Cough Saliva Substitute (First Magic Mouthwash) 5 ml PO Q6 [facility] Last Admin: 01/09/19 05:26 Dose: 5 ml Scopolamine (Transderm-Scop) 1 patch TD Q3D [facility] Last Admin: 01/08/19 10:23 Dose: 1 patch Tamsulosin HCl (Flomax) 0.4 mg PO BID [facility] Last Admin: 01/09/19 09:42 Dose: 0.4 mg - Labs Labs: 01/09/19 08:15 01/09/19 08:15 PT 15.8 SECONDS (9.7-12.2) H 12/29/18 06:30 INR 1.4 12/29/18 06:30 APTT 23 SECONDS (21-34) 12/29/18 06:30 Assessment and Plan (1) Pancytopenia Status: Acute (2) Pleural effusion, left Status: Acute (3) Pneumonia Status: Acute (4) Lung mass Status: Acute (5) Pneumothorax Status: Acute
--- NOTE | 2019-01-09 14:41 | CP.PCM.PN ---
Subjective - Date & Time of Evaluation Date of Evaluation: 01/09/19 Time of Evaluation: 09:00 - Subjective Subjective: afeb not eating NAD Objective - Vital Signs/Intake and Output Vital Signs (last 24 hours): Temp Pulse Resp BP Pulse Ox 97.8 F 91 H 18 105/65 95 01/09/19 09:04 01/09/19 09:04 01/09/19 09:04 01/09/19 09:42 01/09/19 09:04 Intake and Output: 01/09/19 01/09/19 06:59 18:59 Intake Total 1675 1440 Balance 1675 1440 - Medications Medications: Current Medications Acetaminophen (Tylenol 325mg Tab) 650 mg PO Q6 PRN PRN Reason: Pain, moderate (4-7) Last Admin: 01/08/19 21:02 Dose: 650 mg Acetaminophen (Tylenol 325mg Tab) 650 mg PO ONCE PRN PRN Reason: pre med Last Admin: 01/09/19 01:35 Dose: 650 mg Diphenhydramine HCl (Benadryl) 25 mg IVP ONCE PRN PRN Reason: PRIOR TO TRANSFUSION Last Admin: 01/09/19 01:49 Dose: 25 mg Diphenhydramine HCl (Benadryl) 25 mg PO ONCE PRN PRN Reason: pre med Last Admin: 01/03/19 14:39 Dose: 25 mg Docusate Sodium (Colace) 100 mg PO BID [facility] Last Admin: 01/09/19 09:44 Dose: Not Given Furosemide (Lasix) 20 mg PO DAILY [facility] Last Admin: 01/09/19 09:42 Dose: 20 mg Furosemide (Lasix) 20 mg IVP ONCE PRN PRN Reason: post transfusion Last Admin: 01/03/19 19:15 Dose: 20 mg Guaifenesin (Robitussin) 200 mg PO Q4H PRN PRN Reason: Cough and congestion Meropenem 1 gm/ Sodium (Chloride) 100 mls @ 100 mls/hr IVPB Q8H [facility]; Protocol Last Admin: 01/09/19 08:34 Dose: 100 mls/hr Micafungin Sodium 100 mg/ (Sodium Chloride) 100 mls @ 100 mls/hr IV Q24H [facility]; Protocol Last Admin: 01/09/19 00:27 Dose: 100 mls/hr Vancomycin HCl 1 gm/ Sodium (Chloride) 250 mls @ 166.7 mls/hr IVPB Q24H [facility]; Protocol Last Admin: 01/09/19 09:44 Dose: 166.7 mls/hr Lisinopril (Zestril) 5 mg PO DAILY [facility] Last Admin: 01/09/19 09:42 Dose: 5 mg Morphine Sulfate (Morphine) 1 mg IV Q4H PRN PRN Reason: Pain, severe (8-10) Ondansetron HCl (Zofran Inj) 4 mg IVP Q6H PRN PRN Reason: Nausea/Vomiting Pantoprazole Sodium (Protonix Ec Tab) 40 mg PO DAILY [facility] Last Admin: 01/09/19 09:41 Dose: 40 mg Promethazine HCl (Phenergan Syrup) 6.25 mg PO Q6 PRN PRN Reason: Cough Saliva Substitute (First Magic Mouthwash) 5 ml PO Q6 [facility] Last Admin: 01/09/19 12:00 Dose: 5 ml Scopolamine (Transderm-Scop) 1 patch TD Q3D [facility] Last Admin: 01/08/19 10:23 Dose: 1 patch Tamsulosin HCl (Flomax) 0.4 mg PO BID [facility] Last Admin: 01/09/19 09:42 Dose: 0.4 mg - Labs Labs: 01/09/19 08:15 01/09/19 08:15 PT 15.8 SECONDS (9.7-12.2) H 12/29/18 06:30 INR 1.4 12/29/18 06:30 APTT 23 SECONDS (21-34) 12/29/18 06:30 - Constitutional Appears: No Acute Distress, Cachectic, Chronically Ill - Head Exam Head Exam: NORMOCEPHALIC - Eye Exam Eye Exam: absent: Scleral icterus - ENT Exam ENT Exam: Mucous Membranes Dry - Neck Exam Neck Exam: absent: Lymphadenopathy - Respiratory Exam Respiratory Exam: Decreased Breath Sounds, Prolonged Expiratory Phase, Rhonchi - Cardiovascular Exam Cardiovascular Exam: REGULAR RHYTHM, +S1, +S2 - GI/Abdominal Exam GI & Abdominal Exam: Distended, Soft. absent: Tenderness - Rectal Exam Rectal Exam: Deferred - Exam Exam: NORMAL INSPECTION - Extremities Exam Extremities Exam: Pedal Edema - Back Exam Back Exam: absent: CVA tenderness (L), CVA tenderness (R) - Neurological Exam Neurological Exam: Alert, Awake, Oriented x3 - Psychiatric Exam Psychiatric exam: Depressed - Skin Skin Exam: Dry Assessment and Plan (1) Pleural effusion, left Status: Acute (2) Pneumonia Status: Acute (3) Pleural effusion Status: Acute (4) AML (acute myeloblastic leukemia) Status: Chronic (5) Pancytopenia Status: Chronic - Assessment and Plan (Free Text) Assessment: IV antibiotics to cont for febrile neutropenia/ pneumonia
--- NOTE | 2019-01-09 17:41 | US ---
Date of service: 01/09/2019 HISTORY: pt with abdominal pain, edema, pleural effusions COMPARISON: Comparison made with prior abdominal CT scan dated -04/28/2018 and prior CTA chest 12/29/2018 which image the upper abdomen TECHNIQUE: Sonographic evaluation of the abdomen. FINDINGS: LIVER: Measures 15.5 cm. Liver parenchyma is increased echotexture possibly due to fatty infiltration however other infiltrative hepatocellular disease process not excluded. There is a hypoechoic approximately 4.2 times 9 x 4.3 cm lesion left lobe liver of uncertain etiology. Consider follow-up triple phase CT scan of the liver for further evaluation. GALLBLADDER: Several tiny echogenic non shadowing foci seen adherent to the gallbladder wall possibly representing gallbladder polyps. Adherent non calcified gallstones not excluded. Clinical correlation recommended.. The largest of these echogenic foci measure approximately 4.0 mm.. Follow-up gallbladder ultrasound in 4 6 months recommended for polyps greater than 6 mm. Cholecystectomy should be considered a given risk of malignant transformation.. Clinical correlation recommended COMMON BILE DUCT: Measures 5.0 mm. No stones. No dilatation. PANCREAS: Unremarkable as visualized. No mass. No ductal dilatation. RIGHT KIDNEY: Measures 10.5 x 4.0 x 5.1cm. Slight increased echotexture. No calculus, mass, or hydronephrosis. LEFT KIDNEY: Measures 10.6 x 4.3 x 4.6cm. Slight increased echotexture. No calculus, mass, or hydronephrosis. SPLEEN: Enlarged measuring approximately 14 cm. Contour. No mass. AORTA: No aneurysmal dilatation. IVC: Unremarkable. OTHER FINDINGS: Right-sided effusion is felt be present. IMPRESSION: Elliptical shaped low-attenuation lesion left lobe liver. Follow-up triple phase CT scan of the liver could be performed for further evaluation. Liver also exhibits increased echotexture which could be secondary to fatty infiltration however other infiltrative hepatocellular disease process not excluded. Splenomegaly. Several tiny echogenic non shadowing foci seen adherent to the gallbladder wall possibly representing gallbladder polyps. Adherent non calcified gallstones not excluded. Clinical correlation recommended.. The largest of these echogenic foci measure approximately 6.4 x 4.6 mm.. Follow-up gallbladder ultrasound in 4 6 months recommended for polyps greater than 6 mm cholecystectomy should be considered a given risk of malignant transformation.. Clinical correlation recommended Slight increased renal echotexture; rule out underlying medical renal disease.
[2019-01-09] MEDS: Megestrol Acetate 40 mg/ml Cup PO SCH (19:50)
[2019-01-10] MEDS: Megestrol Acetate 40 mg/ml Cup PO SCH ×3 (00:15→18:17)
[2019-01-10] MEDS: Meropenem 1 GM in Sodium Chloride 0.9% 100 ML IVPB SCH ×3 (01:59→18:00)
[2019-01-10] MEDS: Dextrose 5%/0.45% NS 1,000 ML IV SCH ×4 (05:08→21:19)
[2019-01-10] MEDS: Mag&Al/Simet/Diphen/Lido 237 ML KIT PO SCH ×3 (05:32→18:16)
--- NOTE | 2019-01-10 08:24 | CP.PCM.PN ---
Subjective - Date & Time of Evaluation Date of Evaluation: 01/10/19 Time of Evaluation: 08:21 - Subjective Subjective: Radha Masterson PGY1 Progress note for Dr. Montoya Pt was examined at bedside this morning. He reports improvement in his abdominal pain. As per daughter at bedside, appetite has improved and pt ate small amount for breakfast. She reports continuation of cough overnight. Objective - Vital Signs/Intake and Output Vital Signs (last 24 hours): Temp Pulse Resp BP Pulse Ox 97.3 F L 89 20 93/49 L 95 01/10/19 07:00 01/10/19 07:00 01/10/19 07:00 01/10/19 07:00 01/10/19 07:00 Intake and Output: 01/10/19 01/10/19 06:59 18:59 Intake Total 1100 1000 Balance 1100 1000 - Medications Medications: Current Medications Acetaminophen (Tylenol 325mg Tab) 650 mg PO Q6 PRN PRN Reason: Pain, moderate (4-7) Last Admin: 01/08/19 21:02 Dose: 650 mg Acetaminophen (Tylenol 325mg Tab) 650 mg PO ONCE PRN PRN Reason: pre med Last Admin: 01/09/19 01:35 Dose: 650 mg Diphenhydramine HCl (Benadryl) 25 mg IVP ONCE PRN PRN Reason: PRIOR TO TRANSFUSION Last Admin: 01/09/19 01:49 Dose: 25 mg Diphenhydramine HCl (Benadryl) 25 mg PO ONCE PRN PRN Reason: pre med Last Admin: 01/03/19 14:39 Dose: 25 mg Docusate Sodium (Colace) 100 mg PO BID [facility] Last Admin: 01/09/19 17:45 Dose: 100 mg Furosemide (Lasix) 20 mg PO DAILY [facility] Last Admin: 01/09/19 09:42 Dose: 20 mg Furosemide (Lasix) 20 mg IVP ONCE PRN PRN Reason: post transfusion Last Admin: 01/03/19 19:15 Dose: 20 mg Guaifenesin (Robitussin) 200 mg PO Q4H PRN PRN Reason: Cough and congestion Meropenem 1 gm/ Sodium (Chloride) 100 mls @ 100 mls/hr IVPB Q8H [facility]; Protocol Last Admin: 01/10/19 01:59 Dose: 100 mls/hr Micafungin Sodium 100 mg/ (Sodium Chloride) 100 mls @ 100 mls/hr IV Q24H [facility]; Protocol Last Admin: 01/09/19 23:49 Dose: 100 mls/hr Vancomycin HCl 1 gm/ Sodium (Chloride) 250 mls @ 166.7 mls/hr IVPB Q24H [facility]; Protocol Last Admin: 01/09/19 09:44 Dose: 166.7 mls/hr Dextrose/Sodium Chloride (Dextrose 5%/0.45% Ns 1000 Ml) 1,000 mls @ 100 mls/hr IV .Q10H [facility] Last Admin: 01/10/19 05:31 Dose: 100 mls/hr Lisinopril (Zestril) 5 mg PO DAILY [facility] Last Admin: 01/09/19 09:42 Dose: 5 mg Megestrol Acetate (Megace) 400 mg PO BID [facility] Last Admin: 01/10/19 00:15 Dose: 400 mg Morphine Sulfate (Morphine) 1 mg IV Q4H PRN PRN Reason: Pain, severe (8-10) Ondansetron HCl (Zofran Inj) 4 mg IVP Q6H PRN PRN Reason: Nausea/Vomiting Pantoprazole Sodium (Protonix Ec Tab) 40 mg PO DAILY [facility] Last Admin: 01/09/19 09:41 Dose: 40 mg Promethazine HCl (Phenergan Syrup) 6.25 mg PO Q6 PRN PRN Reason: Cough Saliva Substitute (First Magic Mouthwash) 5 ml PO Q6 [facility] Last Admin: 01/10/19 05:32 Dose: Not Given Scopolamine (Transderm-Scop) 1 patch TD Q3D [facility] Last Admin: 01/08/19 10:23 Dose: 1 patch Tamsulosin HCl (Flomax) 0.4 mg PO BID [facility] Last Admin: 01/10/19 00:15 Dose: 0.4 mg - Labs Labs: 01/09/19 08:15 01/09/19 08:15 PT 15.8 SECONDS (9.7-12.2) H 12/29/18 06:30 INR 1.4 12/29/18 06:30 APTT 23 SECONDS (21-34) 12/29/18 06:30 - Additional Findings Additional findings: - Constitutional Appears: Cachectic, Chronically Ill - Head Exam Head Exam: ATRAUMATIC, NORMOCEPHALIC - Eye Exam Eye Exam: Normal appearance Pupil Exam: NORMAL ACCOMODATION - ENT Exam ENT Exam: Mucous Membranes Dry - Respiratory Exam Respiratory Exam: Decreased Breath Sounds, NORMAL BREATHING PATTERN. absent: Rales, Rhonchi, Respiratory Distress - Cardiovascular Exam Cardiovascular Exam: REGULAR RHYTHM, +S1, +S2. absent: Gallop, Rubs, Murmur - GI/Abdominal Exam GI & Abdominal Exam: Soft, Normal Bowel Sounds. 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 Admitted for pleural effusions. He states he does not want to be intubated. Plan: AML, currently on chemo Oncologist Dr. Bobby consulted, help appreciated Received 3rd dose of Decitabine 12/24/18 Hb/Hct 8.1/24.6 today Platelets 30 today 2u PRBC transfusion- 01/08/19 1u PRBC transfusion- 01/03/19 2u platelets transfusion- 01/02/19 2u PRBCs and 2u platelets transfusion received- 12/30/18 cannot transfuse as pt currently denies central and peripheral line insertion Neutropenic precautions Zofran 4mg Q6 PRN Healthcare Associated Pneumonia, with left sided Infiltrates Right sided Pleural effusion Cough Signal Wirer Dr. Thurston consulted, help appreciated CXR 01/07: little interval change in large emphysematous bulla in left apex and upper lobe. persistent consodlidation in left lung with sparing of lower lobe. small effusions. CT chest: No CTA evidence for acute pulmonary embolism.Dense consolidation with air bronchogram in the left upper and lower lobes. Moderate right and small left pleural effusions. Multiple variable-sized parenchymal and subpleural nodules in the right lung, the largest in the right middle lobe measures 1.7 x 1.3 cm. These are nonspecific and could be infectious, inflammatory or neoplastic in etiology. Short-term interval follow-up is advised. Enlarged precarinal mediastinal lymph nodes, the largest measures 1.3 cm in transverse diameter. Mild cardiomegaly and small pericardial effusion. Saturating well on NC BCx negative to date UA +RBCs, no leuk est or nitrates UCx negative Sputum Cx: Staph. aureus only resistant to PCN ID Dr. Ferrari consulted, help appreciated Vancomycin 1g IV daily started 12/29/18 Merem 500mg IV Q8 started 12/29/18 Micofungin 100mg IV q24h (12/26/18) Negative legionella, strep pneumonia, mycoplasma, quantiferon, beta glucan, flu D-dimer 2156 D51/2NS @100cc/hr Lasix 20mg PO daily Phenergan PO PRN Scopolamine patch Mucinex 600mg PO BID Magic mouthwash Abdominal Pain Abd US: low-attenuation lesion L lobe liver. Liver exhibits increased echotexture secondary to fatty infiltration or hepatocellular disease. splenomegaly. several tiny echogenic foci adherent to gallbladder wall possibly representing polyps. slight increased renal echotexture. History of BPH Flomax 0.4mg PO BID History of HTN Lisinopril 5mg PO daily Hold for low blood pressure Poor Nutrition encourage PO intake Stitch Bonding Machine Operator consulted, recs appreciated Low Microbial Diet Ensure Enlive TID B12 842, wnl Megace 400mg PO BID Prophylaxis: Protonix SCDs PT/OT DNI Case discussed with Dr. Montoya
[2019-01-10 08:28] LABS: HEMOGLOBIN 8.1 g/dL (12.0-18.0); LYMPH # 0.2 K/uL (1.0-4.3); LYMPH % 85.3 % (20.0-40.0); MEAN CELL VOLUME 92.7 fL (80.0-94.0); MEAN CORPUSCULAR HEMOGLOBIN 30.4 pg (27.0-31.0); MEAN CORPUSCULAR HGB CONC 32.8 g/dL (33.0-37.0); MEAN PLATELET VOLUME 9.4 fL (7.2-11.7); MONO % 11.1 % (0.0-10.0); NEUT % 3.6 % (50.0-75.0); NRBC % 1.3 % (0.0-2.0); RBC 2.65 Mil/uL (4.40-5.90); RED CELL DISTRIBUTION WIDTH 12.6 % (11.5-14.5)
[2019-01-10 08:33] LABS: WHITE BLOOD COUNT 0.2 K/uL (4.8-10.8)
[2019-01-10 08:35] LABS: ALB/GLOB RATIO 0.6 (1.0-2.1); ALBUMIN 1.4 g/dL (3.5-5.0); ALT/SGPT 22 U/L (21-72); AST/SGOT 11 U/L (17-59); BLOOD UREA NITROGEN 26 mg/dL (9-20); CALCIUM 7.7 mg/dl (8.6-10.4); GFR NON-AFRICAN AMERICAN > 60
[2019-01-10] MEDS: Pantoprazole 40 mg EC Tab PO SCH (10:12)
--- NOTE | 2019-01-10 14:24 | CP.PCM.PN ---
Subjective - Date & Time of Evaluation Date of Evaluation: 01/10/19 Time of Evaluation: 12:00 - Subjective Subjective: Patient seen and examined Status post transfusion of 2 units packed RBCs Patient is alert and oriented Still having cough but much improved No hemoptysis Objective - Vital Signs/Intake and Output Vital Signs (last 24 hours): Temp Pulse Resp BP Pulse Ox 97.3 F L 89 20 93/49 L 95 01/10/19 07:00 01/10/19 07:00 01/10/19 07:00 01/10/19 10:13 01/10/19 07:00 Intake and Output: 01/10/19 01/10/19 06:59 18:59 Intake Total 1100 1000 Balance 1100 1000 - Medications Medications: Current Medications Acetaminophen (Tylenol 325mg Tab) 650 mg PO Q6 PRN PRN Reason: Pain, moderate (4-7) Last Admin: 01/08/19 21:02 Dose: 650 mg Acetaminophen (Tylenol 325mg Tab) 650 mg PO ONCE PRN PRN Reason: pre med Last Admin: 01/09/19 01:35 Dose: 650 mg Diphenhydramine HCl (Benadryl) 25 mg IVP ONCE PRN PRN Reason: PRIOR TO TRANSFUSION Last Admin: 01/09/19 01:49 Dose: 25 mg Diphenhydramine HCl (Benadryl) 25 mg PO ONCE PRN PRN Reason: pre med Last Admin: 01/03/19 14:39 Dose: 25 mg Docusate Sodium (Colace) 100 mg PO BID [facility] Last Admin: 01/10/19 10:12 Dose: 100 mg Furosemide (Lasix) 20 mg PO DAILY [facility] Last Admin: 01/10/19 10:13 Dose: Not Given Furosemide (Lasix) 20 mg IVP ONCE PRN PRN Reason: post transfusion Last Admin: 01/03/19 19:15 Dose: 20 mg Guaifenesin (Robitussin) 200 mg PO Q4H PRN PRN Reason: Cough and congestion Meropenem 1 gm/ Sodium (Chloride) 100 mls @ 100 mls/hr IVPB Q8H [facility]; Protocol Last Admin: 01/10/19 08:31 Dose: 100 mls/hr Micafungin Sodium 100 mg/ (Sodium Chloride) 100 mls @ 100 mls/hr IV Q24H [facility]; Protocol Last Admin: 01/09/19 23:49 Dose: 100 mls/hr Vancomycin HCl 1 gm/ Sodium (Chloride) 250 mls @ 166.7 mls/hr IVPB Q24H [facility]; Protocol Last Admin: 01/10/19 10:14 Dose: 166.7 mls/hr Dextrose/Sodium Chloride (Dextrose 5%/0.45% Ns 1000 Ml) 1,000 mls @ 100 mls/hr IV .Q10H [facility] Last Admin: 01/10/19 12:28 Dose: Not Given Lisinopril (Zestril) 5 mg PO DAILY [facility] Last Admin: 01/10/19 10:13 Dose: Not Given Megestrol Acetate (Megace) 400 mg PO BID [facility] Last Admin: 01/10/19 10:11 Dose: 400 mg Morphine Sulfate (Morphine) 1 mg IV Q4H PRN PRN Reason: Pain, severe (8-10) Ondansetron HCl (Zofran Inj) 4 mg IVP Q6H PRN PRN Reason: Nausea/Vomiting Pantoprazole Sodium (Protonix Ec Tab) 40 mg PO DAILY [facility] Last Admin: 01/10/19 10:12 Dose: 40 mg Promethazine HCl (Phenergan Syrup) 6.25 mg PO Q6 PRN PRN Reason: Cough Saliva Substitute (First Magic Mouthwash) 5 ml PO Q6 [facility] Last Admin: 01/10/19 12:25 Dose: 5 ml Scopolamine (Transderm-Scop) 1 patch TD Q3D [facility] Last Admin: 01/08/19 10:23 Dose: 1 patch Tamsulosin HCl (Flomax) 0.4 mg PO BID [facility] Last Admin: 01/10/19 10:12 Dose: 0.4 mg - Labs Labs: 01/10/19 08:05 01/10/19 08:05 PT 15.8 SECONDS (9.7-12.2) H 12/29/18 06:30 INR 1.4 12/29/18 06:30 APTT 23 SECONDS (21-34) 12/29/18 06:30 - Head Exam Head Exam: ATRAUMATIC, NORMOCEPHALIC - ENT Exam ENT Exam: Mucous Membranes Moist - Neck Exam Neck Exam: Normal Inspection - Respiratory Exam Respiratory Exam: Rales - Cardiovascular Exam Cardiovascular Exam: REGULAR RHYTHM - GI/Abdominal Exam GI & Abdominal Exam: Soft Assessment and Plan (1) Pneumonia Assessment & Plan: Continue antibiotics Clinically improving Follow-up chest x-ray Status: Acute (2) Pancytopenia Status: Acute (3) Pleural effusion, left Status: Acute
[2019-01-11] MEDS: Micafungin 100 MG in Sodium Chloride 0.9% 100 ML IV SCH ×2 (00:10→23:43)
[2019-01-11] MEDS: Mag&Al/Simet/Diphen/Lido 237 ML KIT PO SCH ×3 (00:11→17:21)
--- NOTE | 2019-01-11 00:32 | CP.PCM.PN ---
Subjective - Date & Time of Evaluation Date of Evaluation: 01/07/19 Time of Evaluation: 12:00 - Subjective Subjective: Weak, not eating. Objective - Vital Signs/Intake and Output Vital Signs (last 24 hours): Temp Pulse Resp BP Pulse Ox 98.1 F 89 20 112/66 96 01/10/19 15:47 01/10/19 15:47 01/10/19 15:47 01/10/19 15:47 01/10/19 15:47 Intake and Output: 01/10/19 01/11/19 18:59 06:59 Intake Total 1000 Balance 1000 - Medications Medications: Current Medications Acetaminophen (Tylenol 325mg Tab) 650 mg PO Q6 PRN PRN Reason: Pain, moderate (4-7) Last Admin: 01/08/19 21:02 Dose: 650 mg Acetaminophen (Tylenol 325mg Tab) 650 mg PO ONCE PRN PRN Reason: pre med Last Admin: 01/09/19 01:35 Dose: 650 mg Diphenhydramine HCl (Benadryl) 25 mg IVP ONCE PRN PRN Reason: PRIOR TO TRANSFUSION Last Admin: 01/09/19 01:49 Dose: 25 mg Diphenhydramine HCl (Benadryl) 25 mg PO ONCE PRN PRN Reason: pre med Last Admin: 01/03/19 14:39 Dose: 25 mg Docusate Sodium (Colace) 100 mg PO BID [facility] Last Admin: 01/10/19 18:17 Dose: 100 mg Furosemide (Lasix) 20 mg PO DAILY [facility] Last Admin: 01/10/19 10:13 Dose: Not Given Furosemide (Lasix) 20 mg IVP ONCE PRN PRN Reason: post transfusion Last Admin: 01/03/19 19:15 Dose: 20 mg Guaifenesin (Robitussin) 200 mg PO Q4H PRN PRN Reason: Cough and congestion Meropenem 1 gm/ Sodium (Chloride) 100 mls @ 100 mls/hr IVPB Q8H [facility]; Protocol Last Admin: 01/10/19 18:00 Dose: 100 mls/hr Micafungin Sodium 100 mg/ (Sodium Chloride) 100 mls @ 100 mls/hr IV Q24H [facility]; Protocol Last Admin: 01/11/19 00:10 Dose: 100 mls/hr Vancomycin HCl 1 gm/ Sodium (Chloride) 250 mls @ 166.7 mls/hr IVPB Q24H [facility]; Protocol Last Admin: 01/10/19 10:14 Dose: 166.7 mls/hr Dextrose/Sodium Chloride (Dextrose 5%/0.45% Ns 1000 Ml) 1,000 mls @ 100 mls/hr IV .Q10H [facility] Last Admin: 01/10/19 21:19 Dose: Not Given Lisinopril (Zestril) 5 mg PO DAILY [facility] Last Admin: 01/10/19 10:13 Dose: Not Given Megestrol Acetate (Megace) 400 mg PO BID [facility] Last Admin: 01/10/19 18:17 Dose: 400 mg Morphine Sulfate (Morphine) 1 mg IV Q4H PRN PRN Reason: Pain, severe (8-10) Ondansetron HCl (Zofran Inj) 4 mg IVP Q6H PRN PRN Reason: Nausea/Vomiting Pantoprazole Sodium (Protonix Ec Tab) 40 mg PO DAILY [facility] Last Admin: 01/10/19 10:12 Dose: 40 mg Promethazine HCl (Phenergan Syrup) 6.25 mg PO Q6 PRN PRN Reason: Cough Saliva Substitute (First Magic Mouthwash) 5 ml PO Q6 [facility] Last Admin: 01/11/19 00:11 Dose: 5 ml Scopolamine (Transderm-Scop) 1 patch TD Q3D [facility] Last Admin: 01/08/19 10:23 Dose: 1 patch Tamsulosin HCl (Flomax) 0.4 mg PO BID [facility] Last Admin: 01/10/19 18:17 Dose: 0.4 mg - Labs Labs: 01/10/19 08:05 01/10/19 08:05 PT 15.8 SECONDS (9.7-12.2) H 12/29/18 06:30 INR 1.4 12/29/18 06:30 APTT 23 SECONDS (21-34) 12/29/18 06:30 - Constitutional Appears: Cachectic - ENT Exam ENT Exam: Mucous Membranes Dry - Respiratory Exam Respiratory Exam: Decreased Breath Sounds - Cardiovascular Exam Cardiovascular Exam: +S1, +S2 - GI/Abdominal Exam GI & Abdominal Exam: Normal Bowel Sounds Assessment and Plan (1) Pancytopenia Assessment & Plan: secondary to AML transfusion support PRN Status: Chronic (2) AML (acute myeloblastic leukemia) Assessment & Plan: on outpatient octitabine Status: Chronic
--- NOTE | 2019-01-11 00:33 | CP.PCM.PN ---
Subjective - Date & Time of Evaluation Date of Evaluation: 01/08/19 Time of Evaluation: 18:00 - Subjective Subjective: Weak, not tolerating much PO. Objective - Vital Signs/Intake and Output Vital Signs (last 24 hours): Temp Pulse Resp BP Pulse Ox 98.1 F 89 20 112/66 96 01/10/19 15:47 01/10/19 15:47 01/10/19 15:47 01/10/19 15:47 01/10/19 15:47 Intake and Output: 01/10/19 01/11/19 18:59 06:59 Intake Total 1000 Balance 1000 - Medications Medications: Current Medications Acetaminophen (Tylenol 325mg Tab) 650 mg PO Q6 PRN PRN Reason: Pain, moderate (4-7) Last Admin: 01/08/19 21:02 Dose: 650 mg Acetaminophen (Tylenol 325mg Tab) 650 mg PO ONCE PRN PRN Reason: pre med Last Admin: 01/09/19 01:35 Dose: 650 mg Diphenhydramine HCl (Benadryl) 25 mg IVP ONCE PRN PRN Reason: PRIOR TO TRANSFUSION Last Admin: 01/09/19 01:49 Dose: 25 mg Diphenhydramine HCl (Benadryl) 25 mg PO ONCE PRN PRN Reason: pre med Last Admin: 01/03/19 14:39 Dose: 25 mg Docusate Sodium (Colace) 100 mg PO BID [facility] Last Admin: 01/10/19 18:17 Dose: 100 mg Furosemide (Lasix) 20 mg PO DAILY [facility] Last Admin: 01/10/19 10:13 Dose: Not Given Furosemide (Lasix) 20 mg IVP ONCE PRN PRN Reason: post transfusion Last Admin: 01/03/19 19:15 Dose: 20 mg Guaifenesin (Robitussin) 200 mg PO Q4H PRN PRN Reason: Cough and congestion Meropenem 1 gm/ Sodium (Chloride) 100 mls @ 100 mls/hr IVPB Q8H [facility]; Protocol Last Admin: 01/10/19 18:00 Dose: 100 mls/hr Micafungin Sodium 100 mg/ (Sodium Chloride) 100 mls @ 100 mls/hr IV Q24H [facility]; Protocol Last Admin: 01/11/19 00:10 Dose: 100 mls/hr Vancomycin HCl 1 gm/ Sodium (Chloride) 250 mls @ 166.7 mls/hr IVPB Q24H [facility]; Protocol Last Admin: 01/10/19 10:14 Dose: 166.7 mls/hr Dextrose/Sodium Chloride (Dextrose 5%/0.45% Ns 1000 Ml) 1,000 mls @ 100 mls/hr IV .Q10H [facility] Last Admin: 01/10/19 21:19 Dose: Not Given Lisinopril (Zestril) 5 mg PO DAILY [facility] Last Admin: 01/10/19 10:13 Dose: Not Given Megestrol Acetate (Megace) 400 mg PO BID [facility] Last Admin: 01/10/19 18:17 Dose: 400 mg Morphine Sulfate (Morphine) 1 mg IV Q4H PRN PRN Reason: Pain, severe (8-10) Ondansetron HCl (Zofran Inj) 4 mg IVP Q6H PRN PRN Reason: Nausea/Vomiting Pantoprazole Sodium (Protonix Ec Tab) 40 mg PO DAILY [facility] Last Admin: 01/10/19 10:12 Dose: 40 mg Promethazine HCl (Phenergan Syrup) 6.25 mg PO Q6 PRN PRN Reason: Cough Saliva Substitute (First Magic Mouthwash) 5 ml PO Q6 [facility] Last Admin: 01/11/19 00:11 Dose: 5 ml Scopolamine (Transderm-Scop) 1 patch TD Q3D [facility] Last Admin: 01/08/19 10:23 Dose: 1 patch Tamsulosin HCl (Flomax) 0.4 mg PO BID [facility] Last Admin: 01/10/19 18:17 Dose: 0.4 mg - Labs Labs: 01/10/19 08:05 01/10/19 08:05 PT 15.8 SECONDS (9.7-12.2) H 12/29/18 06:30 INR 1.4 12/29/18 06:30 APTT 23 SECONDS (21-34) 12/29/18 06:30 - Head Exam Head Exam: ATRAUMATIC - Eye Exam Eye Exam: Normal appearance - ENT Exam ENT Exam: Mucous Membranes Dry - Respiratory Exam Respiratory Exam: Decreased Breath Sounds - Cardiovascular Exam Cardiovascular Exam: +S1, +S2 - GI/Abdominal Exam GI & Abdominal Exam: Normal Bowel Sounds Assessment and Plan (1) Pancytopenia Assessment & Plan: secondary to AML and decitabine treatment transfusion support PRN Status: Chronic (2) 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
--- NOTE | 2019-01-11 00:36 | CP.PCM.PN ---
Subjective - Date & Time of Evaluation Date of Evaluation: 01/10/19 Time of Evaluation: 19:00 - Subjective Subjective: Weak, family report he ate much better today. I had an at length discussion with the patient and his . We discussed home hospice and they wish to discuss further with his daughters. He reported he was not ready to discuss code status today but will think about it for tomorrow. Objective - Vital Signs/Intake and Output Vital Signs (last 24 hours): Temp Pulse Resp BP Pulse Ox 98.1 F 89 20 112/66 96 01/10/19 15:47 01/10/19 15:47 01/10/19 15:47 01/10/19 15:47 01/10/19 15:47 Intake and Output: 01/10/19 01/11/19 18:59 06:59 Intake Total 1000 Balance 1000 - Medications Medications: Current Medications Acetaminophen (Tylenol 325mg Tab) 650 mg PO Q6 PRN PRN Reason: Pain, moderate (4-7) Last Admin: 01/08/19 21:02 Dose: 650 mg Acetaminophen (Tylenol 325mg Tab) 650 mg PO ONCE PRN PRN Reason: pre med Last Admin: 01/09/19 01:35 Dose: 650 mg Diphenhydramine HCl (Benadryl) 25 mg IVP ONCE PRN PRN Reason: PRIOR TO TRANSFUSION Last Admin: 01/09/19 01:49 Dose: 25 mg Diphenhydramine HCl (Benadryl) 25 mg PO ONCE PRN PRN Reason: pre med Last Admin: 01/03/19 14:39 Dose: 25 mg Docusate Sodium (Colace) 100 mg PO BID [facility] Last Admin: 01/10/19 18:17 Dose: 100 mg Furosemide (Lasix) 20 mg PO DAILY [facility] Last Admin: 01/10/19 10:13 Dose: Not Given Furosemide (Lasix) 20 mg IVP ONCE PRN PRN Reason: post transfusion Last Admin: 01/03/19 19:15 Dose: 20 mg Guaifenesin (Robitussin) 200 mg PO Q4H PRN PRN Reason: Cough and congestion Meropenem 1 gm/ Sodium (Chloride) 100 mls @ 100 mls/hr IVPB Q8H [facility]; Protocol Last Admin: 01/10/19 18:00 Dose: 100 mls/hr Micafungin Sodium 100 mg/ (Sodium Chloride) 100 mls @ 100 mls/hr IV Q24H [facility]; Protocol Last Admin: 01/11/19 00:10 Dose: 100 mls/hr Vancomycin HCl 1 gm/ Sodium (Chloride) 250 mls @ 166.7 mls/hr IVPB Q24H [facility]; Protocol Last Admin: 01/10/19 10:14 Dose: 166.7 mls/hr Dextrose/Sodium Chloride (Dextrose 5%/0.45% Ns 1000 Ml) 1,000 mls @ 100 mls/hr IV .Q10H [facility] Last Admin: 01/10/19 21:19 Dose: Not Given Lisinopril (Zestril) 5 mg PO DAILY [facility] Last Admin: 01/10/19 10:13 Dose: Not Given Megestrol Acetate (Megace) 400 mg PO BID [facility] Last Admin: 01/10/19 18:17 Dose: 400 mg Morphine Sulfate (Morphine) 1 mg IV Q4H PRN PRN Reason: Pain, severe (8-10) Ondansetron HCl (Zofran Inj) 4 mg IVP Q6H PRN PRN Reason: Nausea/Vomiting Pantoprazole Sodium (Protonix Ec Tab) 40 mg PO DAILY [facility] Last Admin: 01/10/19 10:12 Dose: 40 mg Promethazine HCl (Phenergan Syrup) 6.25 mg PO Q6 PRN PRN Reason: Cough Saliva Substitute (First Magic Mouthwash) 5 ml PO Q6 [facility] Last Admin: 01/11/19 00:11 Dose: 5 ml Scopolamine (Transderm-Scop) 1 patch TD Q3D [facility] Last Admin: 01/08/19 10:23 Dose: 1 patch Tamsulosin HCl (Flomax) 0.4 mg PO BID [facility] Last Admin: 01/10/19 18:17 Dose: 0.4 mg - Labs Labs: 01/10/19 08:05 01/10/19 08:05 PT 15.8 SECONDS (9.7-12.2) H 12/29/18 06:30 INR 1.4 12/29/18 06:30 APTT 23 SECONDS (21-34) 12/29/18 06:30 - Head Exam Head Exam: ATRAUMATIC - Eye Exam Eye Exam: Normal appearance - ENT Exam ENT Exam: Mucous Membranes Dry - Respiratory Exam Respiratory Exam: Decreased Breath Sounds - Cardiovascular Exam Cardiovascular Exam: +S1, +S2 - GI/Abdominal Exam GI & Abdominal Exam: Normal Bowel Sounds Assessment and Plan (1) Pancytopenia Assessment & Plan: secondary to AML and decitabine transfusion support PRN Status: Chronic (2) AML (acute myeloblastic leukemia) Assessment & Plan: on outpatient decitabine clinically declining family considering home hospice code status discussion in progress Status: Chronic
[2019-01-11] MEDS: Meropenem 1 GM in Sodium Chloride 0.9% 100 ML IVPB SCH ×3 (01:46→17:19)
[2019-01-11] MEDS: Dextrose 5%/0.45% NS 1,000 ML IV SCH ×2 (07:47→18:20)
--- NOTE | 2019-01-11 07:50 | CP.PCM.PN ---
Subjective - Date & Time of Evaluation Date of Evaluation: 01/11/19 Time of Evaluation: 07:48 - Subjective Subjective: Radha Masterson PGY1 Progress Note for Dr. Montoya Pt was examined at bedside this morning. As per , pt coughed last night but not as much as previous nights. He has been eating, appetite improved. Objective - Vital Signs/Intake and Output Vital Signs (last 24 hours): Temp Pulse Resp BP Pulse Ox 97.7 F 92 H 20 107/65 98 01/11/19 01:00 01/11/19 01:00 01/11/19 01:00 01/11/19 01:00 01/11/19 01:00 - Medications Medications: Current Medications Acetaminophen (Tylenol 325mg Tab) 650 mg PO Q6 PRN PRN Reason: Pain, moderate (4-7) Last Admin: 01/08/19 21:02 Dose: 650 mg Acetaminophen (Tylenol 325mg Tab) 650 mg PO ONCE PRN PRN Reason: pre med Last Admin: 01/09/19 01:35 Dose: 650 mg Diphenhydramine HCl (Benadryl) 25 mg IVP ONCE PRN PRN Reason: PRIOR TO TRANSFUSION Last Admin: 01/09/19 01:49 Dose: 25 mg Diphenhydramine HCl (Benadryl) 25 mg PO ONCE PRN PRN Reason: pre med Last Admin: 01/03/19 14:39 Dose: 25 mg Docusate Sodium (Colace) 100 mg PO BID [facility] Last Admin: 01/10/19 18:17 Dose: 100 mg Furosemide (Lasix) 20 mg PO DAILY [facility] Last Admin: 01/10/19 10:13 Dose: Not Given Furosemide (Lasix) 20 mg IVP ONCE PRN PRN Reason: post transfusion Last Admin: 01/03/19 19:15 Dose: 20 mg Guaifenesin (Robitussin) 200 mg PO Q4H PRN PRN Reason: Cough and congestion Meropenem 1 gm/ Sodium (Chloride) 100 mls @ 100 mls/hr IVPB Q8H [facility]; Protocol Last Admin: 01/11/19 01:46 Dose: 100 mls/hr Micafungin Sodium 100 mg/ (Sodium Chloride) 100 mls @ 100 mls/hr IV Q24H [facility]; Protocol Last Admin: 01/11/19 00:10 Dose: 100 mls/hr Vancomycin HCl 1 gm/ Sodium (Chloride) 250 mls @ 166.7 mls/hr IVPB Q24H [facility]; Protocol Last Admin: 01/10/19 10:14 Dose: 166.7 mls/hr Dextrose/Sodium Chloride (Dextrose 5%/0.45% Ns 1000 Ml) 1,000 mls @ 100 mls/hr IV .Q10H [facility] Last Admin: 01/11/19 07:47 Dose: 100 mls/hr Lisinopril (Zestril) 5 mg PO DAILY [facility] Last Admin: 01/10/19 10:13 Dose: Not Given Megestrol Acetate (Megace) 400 mg PO BID [facility] Last Admin: 01/10/19 18:17 Dose: 400 mg Morphine Sulfate (Morphine) 1 mg IV Q4H PRN PRN Reason: Pain, severe (8-10) Ondansetron HCl (Zofran Inj) 4 mg IVP Q6H PRN PRN Reason: Nausea/Vomiting Pantoprazole Sodium (Protonix Ec Tab) 40 mg PO DAILY [facility] Last Admin: 01/10/19 10:12 Dose: 40 mg Promethazine HCl (Phenergan Syrup) 6.25 mg PO Q6 PRN PRN Reason: Cough Saliva Substitute (First Magic Mouthwash) 5 ml PO Q6 [facility] Last Admin: 01/11/19 00:11 Dose: 5 ml Scopolamine (Transderm-Scop) 1 patch TD Q3D [facility] Last Admin: 01/08/19 10:23 Dose: 1 patch Tamsulosin HCl (Flomax) 0.4 mg PO BID [facility] Last Admin: 01/10/19 18:17 Dose: 0.4 mg - Labs Labs: 01/10/19 08:05 01/10/19 08:05 PT 15.8 SECONDS (9.7-12.2) H 12/29/18 06:30 INR 1.4 12/29/18 06:30 APTT 23 SECONDS (21-34) 12/29/18 06:30 - Additional Findings Additional findings: - Constitutional Appears: Cachectic, Chronically Ill - Head Exam Head Exam: ATRAUMATIC, NORMOCEPHALIC - Eye Exam Eye Exam: Normal appearance Pupil Exam: NORMAL ACCOMODATION - ENT Exam ENT Exam: Mucous Membranes Dry - Respiratory Exam Respiratory Exam: Decreased Breath Sounds, NORMAL BREATHING PATTERN. absent: Rales, Rhonchi, Respiratory Distress - Cardiovascular Exam Cardiovascular Exam: REGULAR RHYTHM, +S1, +S2. absent: Gallop, Rubs, Murmur - GI/Abdominal Exam GI & Abdominal Exam: Soft, Normal Bowel Sounds. 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 Admitted for pleural effusions. He states he does not want to be intubated. Plan: AML, currently on chemo Oncologist Dr. Bobby consulted, help appreciated Received 3rd dose of Decitabine 12/24/18 Hb/Hct 6.9/20.8 today Platelets 23 today to transfuse 2u PRBC 01/11/19 2u PRBC transfusion- 01/08/19 1u PRBC transfusion- 01/03/19 2u platelets transfusion- 01/02/19 2u PRBCs and 2u platelets transfusion received- 12/30/18 cannot transfuse as pt currently denies central and peripheral line insertion Neutropenic precautions Zofran 4mg Q6 PRN Healthcare Associated Pneumonia, with left sided Infiltrates Right sided Pleural effusion Cough [employer] Leader Dr. Thurston consulted, help appreciated CXR 01/11: interval decrease R pleural effusion. L pleural effusion is similar, in part loculated. contiguous left consolidation atelectasis and bronchiectasis. appearance is similar. bibasilar coaslexcent airspace opacities. coalescent patch infiltrate with or without concomitant pulmonary edema. biapical blebs bulla with parenchymal lung scarring similar. CT chest: No CTA evidence for acute pulmonary embolism.Dense consolidation with air bronchogram in the left upper and lower lobes. Moderate right and small left pleural effusions. Multiple variable-sized parenchymal and subpleural nodules in the right lung, the largest in the right middle lobe measures 1.7 x 1.3 cm. These are nonspecific and could be infectious, inflammatory or neoplastic in etiology. Short-term interval follow-up is advised. Enlarged precarinal mediastinal lymph nodes, the largest measures 1.3 cm in transverse diameter. Mild cardiomegaly and small pericardial effusion. Saturating well on NC BCx negative to date UA +RBCs, no leuk est or nitrates UCx negative Sputum Cx: Staph. aureus only resistant to PCN ID Dr. Ferrari consulted, help appreciated Vancomycin 1g IV daily started 12/29/18 Merem 500mg IV Q8 started 12/29/18 Micofungin 100mg IV q24h (12/26/18) Negative legionella, strep pneumonia, mycoplasma, quantiferon, beta glucan, flu D-dimer 2156 D51/2NS @100cc/hr Lasix 20mg PO daily Phenergan PO PRN Scopolamine patch Mucinex 600mg PO BID Magic mouthwash Abdominal Pain Abd US: low-attenuation lesion L lobe liver. Liver exhibits increased echotexture secondary to fatty infiltration or hepatocellular disease. spleno megaly. several tiny echogenic foci adherent to gallbladder wall possibly representing polyps. slight increased renal echotexture. History of BPH Flomax 0.4mg PO BID History of HTN Lisinopril 5mg PO daily Hold for low blood pressure Poor Nutrition encourage PO intake [employer] consulted, recs appreciated Low Microbial Diet Ensure Enlive TID B12 842, wnl Megace 400mg PO BID Prophylaxis: Protonix SCDs PT/OT DNI Dispo: Ordered hospice consult for patient. Discussed with and daughter as they would like more information for hospice options. Case discussed with Dr. Montoya
[2019-01-11 08:31] LABS: HEMOGLOBIN 6.9 g/dL (12.0-18.0); LYMPH # 0.2 K/uL (1.0-4.3); LYMPH % 90.2 % (20.0-40.0); MEAN CELL VOLUME 93.2 fL (80.0-94.0); MEAN CORPUSCULAR HEMOGLOBIN 30.9 pg (27.0-31.0); MEAN CORPUSCULAR HGB CONC 33.1 g/dL (33.0-37.0); MEAN PLATELET VOLUME 9.4 fL (7.2-11.7); MONO % 6.9 % (0.0-10.0); NEUT % 2.9 % (50.0-75.0); NRBC % 0.6 % (0.0-2.0); RBC 2.23 Mil/uL (4.40-5.90); RED CELL DISTRIBUTION WIDTH 12.7 % (11.5-14.5)
[2019-01-11 08:43] LABS: WHITE BLOOD COUNT 0.2 K/uL (4.8-10.8)
[2019-01-11 09:07] LABS: ALB/GLOB RATIO 0.6 (1.0-2.1); ALBUMIN 1.3 g/dL (3.5-5.0); ALT/SGPT 25 U/L (21-72); AST/SGOT 8 U/L (17-59); BLOOD UREA NITROGEN 21 mg/dL (9-20); CALCIUM 7.7 mg/dl (8.6-10.4); GFR NON-AFRICAN AMERICAN > 60
[2019-01-11] MEDS: Pantoprazole 40 mg EC Tab PO SCH (09:53)
[2019-01-11] MEDS: Megestrol Acetate 40 mg/ml Cup PO SCH ×2 (09:53→17:19)
--- NOTE | 2019-01-11 11:22 | CP.PCM.PN ---
Subjective - Date & Time of Evaluation Date of Evaluation: 01/11/19 Time of Evaluation: 10:00 - Subjective Subjective: weak afebrile no new positive cultures Objective - Vital Signs/Intake and Output Vital Signs (last 24 hours): Temp Pulse Resp BP Pulse Ox 97.6 F 87 20 95/63 L 98 01/11/19 07:00 01/11/19 07:00 01/11/19 07:00 01/11/19 09:54 01/11/19 07:00 - Medications Medications: Current Medications Acetaminophen (Tylenol 325mg Tab) 650 mg PO Q6 PRN PRN Reason: Pain, moderate (4-7) Last Admin: 01/08/19 21:02 Dose: 650 mg Acetaminophen (Tylenol 325mg Tab) 650 mg PO ONCE PRN PRN Reason: pre med Last Admin: 01/09/19 01:35 Dose: 650 mg Diphenhydramine HCl (Benadryl) 25 mg IVP ONCE PRN PRN Reason: PRIOR TO TRANSFUSION Last Admin: 01/09/19 01:49 Dose: 25 mg Diphenhydramine HCl (Benadryl) 25 mg PO ONCE PRN PRN Reason: pre med Last Admin: 01/03/19 14:39 Dose: 25 mg Docusate Sodium (Colace) 100 mg PO BID [facility] Last Admin: 01/11/19 09:55 Dose: Not Given Furosemide (Lasix) [address] [facility] Last Admin: 01/11/19 09:54 Dose: Not Given Furosemide (Lasix) 20 mg IVP ONCE PRN PRN Reason: post transfusion Last Admin: 01/03/19 19:15 Dose: 20 mg Guaifenesin (Robitussin) 200 mg PO Q4H PRN PRN Reason: Cough and congestion Meropenem 1 gm/ Sodium (Chloride) 100 mls @ 100 mls/hr IVPB Q8H [facility]; Protocol Last Admin: 01/11/19 08:39 Dose: 100 mls/hr Micafungin Sodium 100 mg/ (Sodium Chloride) 100 mls @ 100 mls/hr IV Q24H [facility]; Protocol Last Admin: 01/11/19 00:10 Dose: 100 mls/hr Vancomycin HCl 1 gm/ Sodium (Chloride) 250 mls @ 166.7 mls/hr IVPB Q24H [facility]; Protocol Last Admin: 01/11/19 09:54 Dose: 166.7 mls/hr Dextrose/Sodium Chloride (Dextrose 5%/0.45% Ns 1000 Ml) 1,000 mls @ 100 mls/hr IV .Q10H [facility] Last Admin: 01/11/19 07:47 Dose: 100 mls/hr Lisinopril (Zestril) [address] [facility] Last Admin: 01/11/19 09:53 Dose: 5 mg Megestrol Acetate (Megace) [address] [facility] Last Admin: 01/11/19 09:53 Dose: 400 mg Morphine Sulfate (Morphine) 1 mg IV Q4H PRN PRN Reason: Pain, severe (8-10) Ondansetron HCl (Zofran Inj) 4 mg IVP Q6H PRN PRN Reason: Nausea/Vomiting Pantoprazole Sodium (Protonix Ec Tab) [address] [facility] Last Admin: 01/11/19 09:53 Dose: 40 mg Promethazine HCl (Phenergan Syrup) 6.25 mg PO Q6 PRN PRN Reason: Cough Saliva Substitute (First Magic Mouthwash) [address] [facility] Last Admin: 01/11/19 00:11 Dose: 5 ml Scopolamine (Transderm-Scop) [address] [facility] Last Admin: 01/11/19 10:20 Dose: 1 patch Tamsulosin HCl (Flomax) 0.[address] [facility] Last Admin: 01/11/19 09:53 Dose: 0.4 mg - Labs Labs: 01/11/19 08:20 01/11/19 08:20 PT 15.8 SECONDS (9.7-12.2) H 12/29/18 06:30 INR 1.4 12/29/18 06:30 APTT 23 SECONDS (21-34) 12/29/18 06:30 - Constitutional Appears: Non-toxic, Cachectic - Head Exam Head Exam: NORMOCEPHALIC - Eye Exam Eye Exam: absent: Scleral icterus - ENT Exam ENT Exam: Mucous Membranes Dry - Neck Exam Neck Exam: absent: Lymphadenopathy - Respiratory Exam Respiratory Exam: Decreased Breath Sounds, Clear to Ausculation Bilateral - Cardiovascular Exam Cardiovascular Exam: REGULAR RHYTHM, +S1, +S2 - GI/Abdominal Exam GI & Abdominal Exam: Soft - Rectal Exam Rectal Exam: Deferred - Exam Exam: NORMAL INSPECTION - Extremities Exam Extremities Exam: absent: Pedal Edema - Back Exam Back Exam: absent: CVA tenderness (L), CVA tenderness (R) - Neurological Exam Neurological Exam: Alert, Awake, CN II-XII Intact - Psychiatric Exam Psychiatric exam: Depressed - Skin Skin Exam: Dry Assessment and Plan (1) Pleural effusion, left Status: Acute (2) Pneumonia Status: Acute (3) Pleural effusion Status: Acute (4) AML (acute myeloblastic leukemia) Status: Chronic (5) Pancytopenia Status: Chronic - Assessment and Plan (Free Text) Assessment: for possible hospice care DNI in effect IV rx renewed
--- NOTE | 2019-01-11 13:45 | RAD ---
Date of service: 01/11/2019 HISTORY: pt with consolidations COMPARISON: 01/07/2019 FINDINGS: LUNGS: The left pleural based opacity and contiguous patchy airspace opacities are are similar here here scarring, left pleural thickening-on potential left loculated pleural effusion and contiguous left subpleural consolidations/a bronchiectatic changes are suspect. Concomitant underlying neoplastic processes not excluded. Lung volumes are increased compatible with background COPD. Biapical blebs and bulla present left greater than right. Biapical scar on pulmonary parenchymal scarring also suggested. Coalescent per right basal airspace opacities. PLEURA: Bilateral pleural effusions left greater than right; the left appears loculated, right pleural effusion is smaller now than before. Concomitant pleural thickening with bilateral areas of parenchymal scarring and consolidation and bronchiectasis suspect. Biapical bulla blebs left greater than right. No interval complicating pneumothorax seen. CARDIOVASCULAR: There is presence of aortic atherosclerotic calcification on x-ray. Mild cardiomegaly concomitant mild pulmonary venous congestion suspect. Relative prominence to the left hilum-this could be technical. OSSEOUS STRUCTURES: Thoraco lumbar spondylosis and bilateral shoulder arthrosis. VISUALIZED UPPER ABDOMEN: Normal. OTHER FINDINGS: None. IMPRESSION: Interval decrease right pleural effusion. The left pleural effusion is similar. The other findings listed below are similar: Chronic left pleural effusion -in part loculated. Contiguous left consolidation atelectasis and bronchiectasis. Appearance is similar. Bibasilar coalescent airspace opacities-coalescent patchy infiltrate with or without concomitant pulmonary edema here are inferred. Concomitant left basal compressive atelectasis inferred. Biapical blebs bulla with parenchymal lung scarring similar in appearance no complicating pneumothorax appreciated. The below appears larger on the left as before
--- NOTE | 2019-01-11 15:18 | CP.PCM.PN ---
Subjective - Date & Time of Evaluation Date of Evaluation: 01/11/19 Time of Evaluation: 13:15 - Subjective Subjective: Patient seen and examined at bedside. He states he still experiences cough but it has improved. Afebrile. Physical Exam General: AAOx3 Cardio: RRR, no murmur Pulm: Rales Abd: Soft, non-distended A/P? Pneumonia - Continue antibiotics - Clinically improving - Follow-up CXR ?Pancytopenia Pleural effusion, left Objective - Vital Signs/Intake and Output Vital Signs (last 24 hours): Temp Pulse Resp BP Pulse Ox 97.6 F 87 20 95/63 L 98 01/11/19 07:00 01/11/19 07:00 01/11/19 07:00 01/11/19 09:54 01/11/19 07:00 Intake and Output: 01/11/19 01/11/19 06:59 18:59 Intake Total 1250 Balance 1250 - Medications Medications: Current Medications Acetaminophen (Tylenol 325mg Tab) 650 mg PO Q6 PRN PRN Reason: Pain, moderate (4-7) Last Admin: 01/08/19 21:02 Dose: 650 mg Acetaminophen (Tylenol 325mg Tab) 650 mg PO ONCE PRN PRN Reason: pre med Last Admin: 01/09/19 01:35 Dose: 650 mg Diphenhydramine HCl (Benadryl) 25 mg IVP ONCE PRN PRN Reason: PRIOR TO TRANSFUSION Last Admin: 01/09/19 01:49 Dose: 25 mg Diphenhydramine HCl (Benadryl) 25 mg PO ONCE PRN PRN Reason: pre med Last Admin: 01/03/19 14:39 Dose: 25 mg Docusate Sodium (Colace) 100 mg PO BID [facility] Last Admin: 01/11/19 09:55 Dose: Not Given Furosemide (Lasix) 20 mg PO DAILY [facility] Last Admin: 01/11/19 09:54 Dose: Not Given Furosemide (Lasix) 20 mg IVP ONCE PRN PRN Reason: post transfusion Last Admin: 01/03/19 19:15 Dose: 20 mg Guaifenesin (Robitussin) 200 mg PO Q4H PRN PRN Reason: Cough and congestion Meropenem 1 gm/ Sodium (Chloride) 100 mls @ 100 mls/hr IVPB Q8H [facility]; Protocol Last Admin: 01/11/19 08:39 Dose: 100 mls/hr Micafungin Sodium 100 mg/ (Sodium Chloride) 100 mls @ 100 mls/hr IV Q24H [facility], [facility]; Protocol Last Admin: 01/11/19 00:10 Dose: 100 mls/hr Vancomycin HCl 1 gm/ Sodium (Chloride) 250 mls @ 166.7 mls/hr IVPB Q24H [facility], [facility]; Protocol Last Admin: 01/11/19 09:54 Dose: 166.7 mls/hr Dextrose/Sodium Chloride (Dextrose 5%/0.45% Ns 1000 Ml) 1,000 mls @ 100 mls/hr IV .Q10H [facility] Last Admin: 01/11/19 07:47 Dose: 100 mls/hr Lisinopril (Zestril) 5 mg PO DAILY [facility] Last Admin: 01/11/19 09:53 Dose: 5 mg Megestrol Acetate (Megace) 400 mg PO BID [facility] Last Admin: 01/11/19 09:53 Dose: 400 mg Morphine Sulfate (Morphine) 1 mg IV Q4H PRN PRN Reason: Pain, severe (8-10) Ondansetron HCl (Zofran Inj) 4 mg IVP Q6H PRN PRN Reason: Nausea/Vomiting Pantoprazole Sodium (Protonix Ec Tab) 40 mg PO DAILY [facility] Last Admin: 01/11/19 09:53 Dose: 40 mg Promethazine HCl (Phenergan Syrup) 6.25 mg PO Q6 PRN PRN Reason: Cough Saliva Substitute (First Magic Mouthwash) 5 ml PO Q6 [facility] Last Admin: 01/11/19 00:11 Dose: 5 ml Scopolamine (Transderm-Scop) 1 patch TD Q3D [facility] Last Admin: 01/11/19 10:20 Dose: 1 patch Tamsulosin HCl (Flomax) 0.4 mg PO BID [facility] Last Admin: 01/11/19 09:53 Dose: 0.4 mg - Labs Labs: 01/11/19 08:20 01/11/19 08:20 PT 15.8 SECONDS (9.7-12.2) H 12/29/18 06:30 INR 1.4 12/29/18 06:30 APTT 23 SECONDS (21-34) 12/29/18 06:30 Assessment and Plan (1) Pneumonia Status: Acute (2) Pancytopenia Status: Acute (3) Pleural effusion, left Status: Acute
--- NOTE | 2019-01-11 22:23 | CP.PCM.PN ---
Subjective - Date & Time of Evaluation Date of Evaluation: 01/11/19 Time of Evaluation: 17:00 - Subjective Subjective: Trying to eat more. Family considering hospice Discussed code status with the patient and his family - patient agreed to DNR/DNI Objective - Vital Signs/Intake and Output Vital Signs (last 24 hours): Temp Pulse Resp BP Pulse Ox 98 F 92 H 20 99/61 L 98 01/11/19 21:25 01/11/19 21:25 01/11/19 21:25 01/11/19 21:25 01/11/19 16:47 Intake and Output: 01/11/19 01/12/19 18:59 06:59 Intake Total 1250 0 Balance 1250 0 - Medications Medications: Current Medications Acetaminophen (Tylenol 325mg Tab) 650 mg PO Q6 PRN PRN Reason: Pain, moderate (4-7) Last Admin: 01/11/19 19:32 Dose: 650 mg Acetaminophen (Tylenol 325mg Tab) 650 mg PO ONCE PRN PRN Reason: pre med Last Admin: 01/09/19 01:35 Dose: 650 mg Diphenhydramine HCl (Benadryl) 25 mg IVP ONCE PRN PRN Reason: PRIOR TO TRANSFUSION Last Admin: 01/09/19 01:49 Dose: 25 mg Diphenhydramine HCl (Benadryl) 25 mg PO ONCE PRN PRN Reason: pre med Last Admin: 01/03/19 14:39 Dose: 25 mg Docusate Sodium (Colace) 100 mg PO BID [facility] Last Admin: 01/11/19 17:19 Dose: 100 mg Furosemide (Lasix) 20 mg PO DAILY [facility] Last Admin: 01/11/19 09:54 Dose: Not Given Furosemide (Lasix) 20 mg IVP ONCE PRN PRN Reason: post transfusion Last Admin: 01/03/19 19:15 Dose: 20 mg Guaifenesin (Robitussin) 200 mg PO Q4H PRN PRN Reason: Cough and congestion Meropenem 1 gm/ Sodium (Chloride) 100 mls @ 100 mls/hr IVPB Q8H [facility]; Protocol Last Admin: 01/11/19 17:19 Dose: 100 mls/hr Micafungin Sodium 100 mg/ (Sodium Chloride) 100 mls @ 100 mls/hr IV Q24H [facility]; Protocol Last Admin: 01/11/19 00:10 Dose: 100 mls/hr Vancomycin HCl 1 gm/ Sodium (Chloride) 250 mls @ 166.7 mls/hr IVPB Q24H [facility]; Protocol Last Admin: 01/11/19 09:54 Dose: 166.7 mls/hr Dextrose/Sodium Chloride (Dextrose 5%/0.45% Ns 1000 Ml) 1,000 mls @ 100 mls/hr IV .Q10H [facility] Last Admin: 01/11/19 18:20 Dose: 100 mls/hr Lisinopril (Zestril) 5 mg PO DAILY [facility] Last Admin: 01/11/19 09:53 Dose: 5 mg Megestrol Acetate (Megace) 400 mg PO BID [facility] Last Admin: 01/11/19 17:19 Dose: 400 mg Morphine Sulfate (Morphine) 1 mg IV Q4H PRN PRN Reason: Pain, severe (8-10) Ondansetron HCl (Zofran Inj) 4 mg IVP Q6H PRN PRN Reason: Nausea/Vomiting Pantoprazole Sodium (Protonix Ec Tab) 40 mg PO DAILY [facility] Last Admin: 01/11/19 09:53 Dose: 40 mg Promethazine HCl (Phenergan Syrup) 6.25 mg PO Q6 PRN PRN Reason: Cough Saliva Substitute (First Magic Mouthwash) 5 ml PO Q6 [facility] Last Admin: 01/11/19 17:21 Dose: 5 ml Scopolamine (Transderm-Scop) 1 patch TD Q3D [facility] Last Admin: 01/11/19 10:20 Dose: 1 patch Tamsulosin HCl (Flomax) 0.4 mg PO BID [facility] Last Admin: 01/11/19 17:20 Dose: 0.4 mg - Labs Labs: 01/11/19 08:20 01/11/19 08:20 PT 15.8 SECONDS (9.7-12.2) H 12/29/18 06:30 INR 1.4 12/29/18 06:30 APTT 23 SECONDS (21-34) 12/29/18 06:30 - Constitutional Appears: Cachectic - Head Exam Head Exam: ATRAUMATIC - ENT Exam ENT Exam: Mucous Membranes Dry - Respiratory Exam Respiratory Exam: Decreased Breath Sounds - Cardiovascular Exam Cardiovascular Exam: +S1, +S2 - GI/Abdominal Exam GI & Abdominal Exam: Normal Bowel Sounds - Extremities Exam Extremities Exam: Pedal Edema Assessment and Plan (1) Pancytopenia Assessment & Plan: secondary to AML and decitabine transfusion support PRN Status: Chronic (2) AML (acute myeloblastic leukemia) Assessment & Plan: on decitabine considering hospice DNR/DNI Status: Chronic
[2019-01-12] MEDS: Meropenem 1 GM in Sodium Chloride 0.9% 100 ML IVPB SCH ×3 (01:03→17:49)
--- NOTE | 2019-01-12 07:48 | CP.PCM.PN ---
Subjective - Date & Time of Evaluation Date of Evaluation: 01/12/19 Time of Evaluation: 07:47 - Subjective Subjective: Radha Masterson PGY1 Progress Note for Dr. Montoya Pt was examined at bedside this morning. He reports improvement in his appetite. He continues to complain of cough. Objective - Vital Signs/Intake and Output Vital Signs (last 24 hours): Temp Pulse Resp BP Pulse Ox 97.5 F L 78 20 101/65 99 01/12/19 06:01 01/12/19 06:01 01/12/19 06:01 01/12/19 06:01 01/11/19 23:43 Intake and Output: 01/12/19 01/12/19 06:59 18:59 Intake Total 1850 Output Total 1 Balance 1849 - Medications Medications: Current Medications Acetaminophen (Tylenol 325mg Tab) 650 mg PO Q6 PRN PRN Reason: Pain, moderate (4-7) Last Admin: 01/11/19 19:32 Dose: 650 mg Acetaminophen (Tylenol 325mg Tab) 650 mg PO ONCE PRN PRN Reason: pre med Last Admin: 01/09/19 01:35 Dose: 650 mg Diphenhydramine HCl (Benadryl) 25 mg IVP ONCE PRN PRN Reason: PRIOR TO TRANSFUSION Last Admin: 01/09/19 01:49 Dose: 25 mg Diphenhydramine HCl (Benadryl) 25 mg PO ONCE PRN PRN Reason: pre med Last Admin: 01/03/19 14:39 Dose: 25 mg Docusate Sodium (Colace) 100 mg PO BID [facility] Last Admin: 01/11/19 17:19 Dose: 100 mg Furosemide (Lasix) 20 mg PO DAILY [facility] Last Admin: 01/11/19 09:54 Dose: Not Given Furosemide (Lasix) 20 mg IVP ONCE PRN PRN Reason: post transfusion Last Admin: 01/03/19 19:15 Dose: 20 mg Guaifenesin (Robitussin) 200 mg PO Q4H PRN PRN Reason: Cough and congestion Meropenem 1 gm/ Sodium (Chloride) 100 mls @ 100 mls/hr IVPB Q8H [facility]; Protocol Last Admin: 01/12/19 01:03 Dose: 100 mls/hr Micafungin Sodium 100 mg/ (Sodium Chloride) 100 mls @ 100 mls/hr IV Q24H [facility]; Protocol Last Admin: 01/11/19 23:43 Dose: 100 mls/hr Vancomycin HCl 1 gm/ Sodium (Chloride) 250 mls @ 166.7 mls/hr IVPB Q24H [facility]; Protocol Last Admin: 01/11/19 09:54 Dose: 166.7 mls/hr Dextrose/Sodium Chloride (Dextrose 5%/0.45% Ns 1000 Ml) 1,000 mls @ 100 mls/hr IV .Q10H [facility] Last Admin: 01/11/19 18:20 Dose: 100 mls/hr Lisinopril (Zestril) 5 mg PO DAILY [facility] Last Admin: 01/11/19 09:53 Dose: 5 mg Megestrol Acetate (Megace) 400 mg PO BID [facility] Last Admin: 01/11/19 17:19 Dose: 400 mg Morphine Sulfate (Morphine) 1 mg IV Q4H PRN PRN Reason: Pain, severe (8-10) Ondansetron HCl (Zofran Inj) 4 mg IVP Q6H PRN PRN Reason: Nausea/Vomiting Pantoprazole Sodium (Protonix Ec Tab) 40 mg PO DAILY [facility] Last Admin: 01/11/19 09:53 Dose: 40 mg Promethazine HCl (Phenergan Syrup) 6.25 mg PO Q6 PRN PRN Reason: Cough Saliva Substitute (First Magic Mouthwash) 5 ml PO Q6 [facility] Last Admin: 01/11/19 17:21 Dose: 5 ml Scopolamine (Transderm-Scop) 1 patch TD Q3D [facility] Last Admin: 01/11/19 10:20 Dose: 1 patch Tamsulosin HCl (Flomax) 0.4 mg PO BID [facility] Last Admin: 01/11/19 17:20 Dose: 0.4 mg - Labs Labs: 01/11/19 08:20 01/11/19 08:20 PT 15.8 SECONDS (9.7-12.2) H 12/29/18 06:30 INR 1.4 12/29/18 06:30 APTT 23 SECONDS (21-34) 12/29/18 06:30 - Additional Findings Additional findings: - Constitutional Appears: Cachectic, Chronically Ill - Head Exam Head Exam: ATRAUMATIC, NORMOCEPHALIC - Eye Exam Eye Exam: Normal appearance Pupil Exam: NORMAL ACCOMODATION - ENT Exam ENT Exam: Mucous Membranes Dry - Respiratory Exam Respiratory Exam: Decreased Breath Sounds, NORMAL BREATHING PATTERN. absent: Rales, Rhonchi, Respiratory Distress - Cardiovascular Exam Cardiovascular Exam: REGULAR RHYTHM, +S1, +S2. absent: Gallop, Rubs, Murmur - GI/Abdominal Exam GI & Abdominal Exam: Soft, Normal Bowel Sounds. 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 Admitted for pleural effusions. He states he does not want to be intubated. Plan: AML, currently on chemo Oncologist Dr. Bobby consulted, help appreciated Received 3rd dose of Decitabine 12/24/18 Hb/Hct 9.2/27.2 today Platelets 26 today to transfuse 2u PRBC 01/11/19 2u PRBC transfusion- 01/08/19 1u PRBC transfusion- 01/03/19 2u platelets transfusion- 01/02/19 2u PRBCs and 2u platelets transfusion received- 12/30/18 cannot transfuse as pt currently denies central and peripheral line insertion Neutropenic precautions Zofran 4mg Q6 PRN Healthcare Associated Pneumonia, with left sided Infiltrates Right sided Pleural effusion Cough Chemistry Manager Dr. Thurston consulted, help appreciated CXR 01/11: interval decrease R pleural effusion. L pleural effusion is similar, in part loculated. contiguous left consolidation atelectasis and bronchiectasis. appearance is similar. bibasilar coaslexcent airspace opacities. coalescent patch infiltrate with or without concomitant pulmonary edema. biapical blebs bulla with parenchymal lung scarring similar. CT chest: No CTA evidence for acute pulmonary embolism.Dense consolidation with air bronchogram in the left upper and lower lobes. Moderate right and small left pleural effusions. Multiple variable-sized parenchymal and subpleural nodules in the right lung, the largest in the right middle lobe measures 1.7 x 1.3 cm. These are nonspecific and could be infectious, inflammatory or neoplastic in etiology. Short-term interval follow-up is advised. Enlarged precarinal mediastinal lymph nodes, the largest measures 1.3 cm in transverse diameter. Mild cardiomegaly and small pericardial effusion. Saturating well on NC BCx negative to date UA +RBCs, no leuk est or nitrates UCx negative Sputum Cx: Staph. aureus only resistant to PCN ID Dr. Ferrari consulted, help appreciated Vancomycin 1g IV daily started 12/29/18 Merem 500mg IV Q8 started 12/29/18 Micofungin 100mg IV q24h (12/26/18) Negative legionella, strep pneumonia, mycoplasma, quantiferon, beta glucan, flu D-dimer 2156 D51/2NS @100cc/hr Lasix 20mg PO daily Phenergan PO PRN Scopolamine patch Mucinex 600mg PO BID Magic mouthwash Abdominal Pain Abd US: low-attenuation lesion L lobe liver. Liver exhibits increased echotexture secondary to fatty infiltration or hepatocellular disease. splen omegaly. several tiny echogenic foci adherent to gallbladder wall possibly representing polyps. slight increased renal echotexture. History of BPH Flomax 0.4mg PO BID History of HTN Lisinopril 5mg PO daily Hold for low blood pressure Poor Nutrition encourage PO intake Chemistry Manager consulted, recs appreciated Low Microbial Diet Ensure Enlive TID B12 842, wnl Megace 400mg PO BID Prophylaxis: Protonix SCDs PT/OT DNI Dispo: Ordered hospice consult for patient. Discussed with and daughter as they would like more information for hospice options. Case discussed with Dr. Montoya
[2019-01-12] MEDS: Pantoprazole 40 mg EC Tab PO SCH (09:18)
[2019-01-12] MEDS: Megestrol Acetate 40 mg/ml Cup PO SCH ×2 (09:18→17:48)
[2019-01-12] MEDS: Dextrose 5%/0.45% NS 1,000 ML IV SCH (09:20)
[2019-01-12] MEDS: Mag&Al/Simet/Diphen/Lido 237 ML KIT PO SCH ×2 (11:55→17:49)
[2019-01-12 12:02] LABS: LYMPH # 0.2 K/uL (1.0-4.3); LYMPH % 85.8 % (20.0-40.0); MEAN CORPUSCULAR HEMOGLOBIN 31.6 pg (27.0-31.0); MEAN PLATELET VOLUME 9.4 fL (7.2-11.7); MONO % 10.1 % (0.0-10.0); NEUT % 4.1 % (50.0-75.0); RBC 2.93 Mil/uL (4.40-5.90); RED CELL DISTRIBUTION WIDTH 12.5 % (11.5-14.5)
[2019-01-12 12:08] LABS: WHITE BLOOD COUNT 0.3 K/uL (4.8-10.8)
[2019-01-12 12:09] LABS: HEMOGLOBIN 9.2 g/dL (12.0-18.0)
[2019-01-12 12:47] LABS: ALB/GLOB RATIO 0.6 (1.0-2.1); ALBUMIN 1.4 g/dL (3.5-5.0); ALT/SGPT 23 U/L (21-72); AST/SGOT 8 U/L (17-59); BLOOD UREA NITROGEN 24 mg/dL (9-20); CALCIUM 7.9 mg/dl (8.6-10.4); GFR NON-AFRICAN AMERICAN > 60
--- NOTE | 2019-01-12 15:58 | CP.PCM.PN ---
Subjective - Date & Time of Evaluation Date of Evaluation: 01/12/19 Time of Evaluation: 15:57 - Subjective Subjective: Pulmonary follow up, Covering Dr Thurston The Patient was seen and examined at the bedside, Medical records reviewed, and management issues were discussed and formulated with the house staff. Events reviewed Patient is 78 years old former smoker male (quit >20 years ago) with past medical history of hypertension, BPH, AML on chemotherapy and chronic obstructive pulmonary disease Who initially presented to the emergency room with worsening shortness of breath, cough and hypoxemia Chest x-ray and CT scan of the chest was consistent with diffuse lung infiltrate and a small pleural effusion Started on antibiotics Patient is doing better today cough improved less shortness of breath and denies chest pain No fever or chills On exam he is awake oriented comfortable and does not appear to be in any distress Afebrile appetite improved Patient seen and examined at bedside. He states he still experiences cough but it has improved. Objective - Vital Signs/Intake and Output Vital Signs (last 24 hours): Temp Pulse Resp BP Pulse Ox 97.4 F L 89 20 105/63 99 01/12/19 07:00 01/12/19 07:00 01/12/19 07:00 01/12/19 09:18 01/12/19 07:00 Intake and Output: 01/12/19 01/12/19 06:59 18:59 Intake Total 1850 1350 Output Total 1 Balance 1849 1350 - Medications Medications: Current Medications Acetaminophen (Tylenol 325mg Tab) 650 mg PO Q6 PRN PRN Reason: Pain, moderate (4-7) Last Admin: 01/11/19 19:32 Dose: 650 mg Acetaminophen (Tylenol 325mg Tab) 650 mg PO ONCE PRN PRN Reason: pre med Last Admin: 01/09/19 01:35 Dose: 650 mg Diphenhydramine HCl (Benadryl) 25 mg IVP ONCE PRN PRN Reason: PRIOR TO TRANSFUSION Last Admin: 01/09/19 01:49 Dose: 25 mg Diphenhydramine HCl (Benadryl) 25 mg PO ONCE PRN PRN Reason: pre med Last Admin: 01/03/19 14:39 Dose: 25 mg Docusate Sodium (Colace) 100 mg PO BID [facility] Last Admin: 01/12/19 09:29 Dose: Not Given Furosemide (Lasix) 20 mg PO DAILY [facility] Last Admin: 01/12/19 09:18 Dose: 20 mg Furosemide (Lasix) 20 mg IVP ONCE PRN PRN Reason: post transfusion Last Admin: 01/03/19 19:15 Dose: 20 mg Guaifenesin (Robitussin) 200 mg PO Q4H PRN PRN Reason: Cough and congestion Meropenem 1 gm/ Sodium (Chloride) 100 mls @ 100 mls/hr IVPB Q8H [facility]; Protocol Last Admin: 01/12/19 09:18 Dose: 100 mls/hr Micafungin Sodium 100 mg/ (Sodium Chloride) 100 mls @ 100 mls/hr IV Q24H [facility]; Protocol Last Admin: 01/11/19 23:43 Dose: 100 mls/hr Vancomycin HCl 1 gm/ Sodium (Chloride) 250 mls @ 166.7 mls/hr IVPB Q24H [facility]; Protocol Last Admin: 01/12/19 10:19 Dose: 166.7 mls/hr Dextrose/Sodium Chloride (Dextrose 5%/0.45% Ns 1000 Ml) 1,000 mls @ 100 mls/hr IV .Q10H [facility] Last Admin: 01/12/19 09:20 Dose: 100 mls/hr Lisinopril (Zestril) 5 mg PO DAILY [facility] Last Admin: 01/12/19 09:17 Dose: 5 mg Megestrol Acetate (Megace) 400 mg PO BID [facility] Last Admin: 01/12/19 09:18 Dose: 400 mg Morphine Sulfate (Morphine) 1 mg IV Q4H PRN PRN Reason: Pain, severe (8-10) Ondansetron HCl (Zofran Inj) 4 mg IVP Q6H PRN PRN Reason: Nausea/Vomiting Pantoprazole Sodium (Protonix Ec Tab) 40 mg PO DAILY [facility] Last Admin: 01/12/19 09:18 Dose: 40 mg Promethazine HCl (Phenergan Syrup) 6.25 mg PO Q6 PRN PRN Reason: Cough Saliva Substitute (First Magic Mouthwash) 5 ml PO Q6 [facility] Last Admin: 01/12/19 11:55 Dose: Not Given Scopolamine (Transderm-Scop) 1 patch TD Q3D [facility] Last Admin: 01/11/19 10:20 Dose: 1 patch Tamsulosin HCl (Flomax) 0.4 mg PO BID [facility] Last Admin: 01/12/19 09:18 Dose: 0.4 mg - Labs Labs: 01/12/19 11:53 01/12/19 11:53 PT 15.8 SECONDS (9.7-12.2) H 12/29/18 06:30 INR 1.4 12/29/18 06:30 APTT 23 SECONDS (21-34) 12/29/18 06:30 - Constitutional Appears: Well, Non-toxic - Head Exam Head Exam: ATRAUMATIC, NORMAL INSPECTION - Eye Exam Eye Exam: Normal appearance. absent: Conjunctival injection - Neck Exam Neck Exam: Full ROM - Respiratory Exam Respiratory Exam: Accessory Muscle Use, NORMAL BREATHING PATTERN. absent: Rales, Rhonchi, Wheezes - Cardiovascular Exam Cardiovascular Exam: REGULAR RHYTHM, RRR. absent: Bradycardia, Tachycardia, Clicks, JVD, Murmur - GI/Abdominal Exam GI & Abdominal Exam: Distended, Soft, Normal Bowel Sounds. absent: Firm, Guarding, Tenderness - Neurological Exam Neurological Exam: Alert, Awake Assessment and Plan (1) Pancytopenia Status: Acute (2) Pleural effusion, left Status: Acute (3) Pneumonia Status: Acute (4) Lung mass Status: Acute - Assessment and Plan (Free Text) Assessment: Pneumonia Pleural effusion, left - Continue antibiotics - Clinically improving - Follow-up CXR - Supplemental Oxygen to keep sat>94%
--- NOTE | 2019-01-12 18:35 | CP.PCM.PN ---
Subjective - Date & Time of Evaluation Date of Evaluation: 01/12/19 Time of Evaluation: 10:00 - Subjective Subjective: afeb less SOB IV rx renewed labs reviewed Objective - Vital Signs/Intake and Output Vital Signs (last 24 hours): Temp Pulse Resp BP Pulse Ox 97.4 F L 93 H 20 102/57 L 99 01/12/19 16:00 01/12/19 16:00 01/12/19 16:00 01/12/19 16:00 01/12/19 16:00 Intake and Output: 01/12/19 01/12/19 06:59 18:59 Intake Total 1850 1350 Output Total 1 Balance 1849 1350 - Medications Medications: Current Medications Acetaminophen (Tylenol 325mg Tab) 650 mg PO Q6 PRN PRN Reason: Pain, moderate (4-7) Last Admin: 01/11/19 19:32 Dose: 650 mg Acetaminophen (Tylenol 325mg Tab) 650 mg PO ONCE PRN PRN Reason: pre med Last Admin: 01/09/19 01:35 Dose: 650 mg Diphenhydramine HCl (Benadryl) 25 mg IVP ONCE PRN PRN Reason: PRIOR TO TRANSFUSION Last Admin: 01/09/19 01:49 Dose: 25 mg Diphenhydramine HCl (Benadryl) 25 mg PO ONCE PRN PRN Reason: pre med Last Admin: 01/03/19 14:39 Dose: 25 mg Docusate Sodium (Colace) 100 mg PO BID [facility] Last Admin: 01/12/19 17:48 Dose: 100 mg Furosemide (Lasix) 20 mg PO DAILY [facility] Last Admin: 01/12/19 09:18 Dose: 20 mg Furosemide (Lasix) 20 mg IVP ONCE PRN PRN Reason: post transfusion Last Admin: 01/03/19 19:15 Dose: 20 mg Guaifenesin (Robitussin) 200 mg PO Q4H PRN PRN Reason: Cough and congestion Meropenem 1 gm/ Sodium (Chloride) 100 mls @ 100 mls/hr IVPB Q8H [facility]; Protocol Last Admin: 01/12/19 17:49 Dose: 100 mls/hr Micafungin Sodium 100 mg/ (Sodium Chloride) 100 mls @ 100 mls/hr IV Q24H [facility]; Protocol Last Admin: 01/11/19 23:43 Dose: 100 mls/hr Vancomycin HCl 1 gm/ Sodium (Chloride) 250 mls @ 166.7 mls/hr IVPB Q24H [facility]; Protocol Last Admin: 01/12/19 10:19 Dose: 166.7 mls/hr Dextrose/Sodium Chloride (Dextrose 5%/0.45% Ns 1000 Ml) 1,000 mls @ 100 mls/hr IV .Q10H [facility] Last Admin: 01/12/19 09:20 Dose: 100 mls/hr Lisinopril (Zestril) 5 mg PO DAILY [facility] Last Admin: 01/12/19 09:17 Dose: 5 mg Megestrol Acetate (Megace) 400 mg PO BID [facility] Last Admin: 01/12/19 17:48 Dose: 400 mg Morphine Sulfate (Morphine) 1 mg IV Q4H PRN PRN Reason: Pain, severe (8-10) Ondansetron HCl (Zofran Inj) 4 mg IVP Q6H PRN PRN Reason: Nausea/Vomiting Pantoprazole Sodium (Protonix Ec Tab) 40 mg PO DAILY [facility] Last Admin: 01/12/19 09:18 Dose: 40 mg Promethazine HCl (Phenergan Syrup) 6.25 mg PO Q6 PRN PRN Reason: Cough Last Admin: 01/12/19 17:49 Dose: 6.25 mg Saliva Substitute (First Magic Mouthwash) 5 ml PO Q6 [facility] Last Admin: 01/12/19 17:49 Dose: 5 ml Scopolamine (Transderm-Scop) 1 patch TD Q3D [facility] Last Admin: 01/11/19 10:20 Dose: 1 patch Tamsulosin HCl (Flomax) 0.4 mg PO BID [facility] Last Admin: 01/12/19 17:48 Dose: 0.4 mg - Labs Labs: 01/12/19 11:53 01/12/19 11:53 PT 15.8 SECONDS (9.7-12.2) H 12/29/18 06:30 INR 1.4 12/29/18 06:30 APTT 23 SECONDS (21-34) 12/29/18 06:30 - Constitutional Appears: No Acute Distress, Cachectic, Chronically Ill - Head Exam Head Exam: ATRAUMATIC, NORMAL INSPECTION, NORMOCEPHALIC - Eye Exam Eye Exam: EOMI, Normal appearance, PERRL Pupil Exam: NORMAL ACCOMODATION, PERRL - ENT Exam ENT Exam: Mucous Membranes Moist, Normal Exam - Neck Exam Neck Exam: Full ROM, Normal Inspection. absent: Lymphadenopathy - Respiratory Exam Respiratory Exam: Clear to Ausculation Bilateral, NORMAL BREATHING PATTERN - Cardiovascular Exam Cardiovascular Exam: REGULAR RHYTHM, +S1, +S2. absent: Murmur - GI/Abdominal Exam GI & Abdominal Exam: Soft, Normal Bowel Sounds. absent: Tenderness - Rectal Exam Rectal Exam: Deferred - Exam Exam: NORMAL INSPECTION - Extremities Exam Extremities Exam: Full ROM, Normal Capillary Refill, Normal Inspection. absent: Joint Swelling, Pedal Edema - Back Exam Back Exam: NORMAL INSPECTION - Neurological Exam Neurological Exam: Alert, Awake, CN II-XII Intact, Normal Gait, Oriented x3 - Psychiatric Exam Psychiatric exam: Normal Affect, Normal Mood - Skin Skin Exam: Dry, Intact, Normal Color, Warm Assessment and Plan (1) Pleural effusion, left Status: Acute (2) Pneumonia Status: Acute (3) Pleural effusion Status: Acute (4) AML (acute myeloblastic leukemia) Status: Chronic (5) Pancytopenia Status: Chronic - Assessment and Plan (Free Text) Assessment: persistent neutropenia s/p chemo cont IV rx reculture PRN
--- NOTE | 2019-01-12 22:18 | CP.PCM.PN ---
Subjective - Date & Time of Evaluation Date of Evaluation: 01/12/19 Time of Evaluation: 17:00 - Subjective Subjective: Breathing better. Objective - Vital Signs/Intake and Output Vital Signs (last 24 hours): Temp Pulse Resp BP Pulse Ox 97.4 F L 93 H 20 102/57 L 99 01/12/19 16:00 01/12/19 16:00 01/12/19 16:00 01/12/19 16:00 01/12/19 16:00 Intake and Output: 01/12/19 01/13/19 18:59 06:59 Intake Total 1350 Balance 1350 - Medications Medications: Current Medications Acetaminophen (Tylenol 325mg Tab) 650 mg PO Q6 PRN PRN Reason: Pain, moderate (4-7) Last Admin: 01/11/19 19:32 Dose: 650 mg Acetaminophen (Tylenol 325mg Tab) 650 mg PO ONCE PRN PRN Reason: pre med Last Admin: 01/09/19 01:35 Dose: 650 mg Diphenhydramine HCl (Benadryl) 25 mg IVP ONCE PRN PRN Reason: PRIOR TO TRANSFUSION Last Admin: 01/09/19 01:49 Dose: 25 mg Diphenhydramine HCl (Benadryl) 25 mg PO ONCE PRN PRN Reason: pre med Last Admin: 01/03/19 14:39 Dose: 25 mg Docusate Sodium (Colace) 100 mg PO BID [facility] Last Admin: 01/12/19 17:48 Dose: 100 mg Furosemide (Lasix) 20 mg PO DAILY [facility] Last Admin: 01/12/19 09:18 Dose: 20 mg Furosemide (Lasix) 20 mg IVP ONCE PRN PRN Reason: post transfusion Last Admin: 01/03/19 19:15 Dose: 20 mg Guaifenesin (Robitussin) 200 mg PO Q4H PRN PRN Reason: Cough and congestion Meropenem 1 gm/ Sodium (Chloride) 100 mls @ 100 mls/hr IVPB Q8H [facility]; Protocol Last Admin: 01/12/19 17:49 Dose: 100 mls/hr Micafungin Sodium 100 mg/ (Sodium Chloride) 100 mls @ 100 mls/hr IV Q24H [facility]; Protocol Last Admin: 01/11/19 23:43 Dose: 100 mls/hr Vancomycin HCl 1 gm/ Sodium (Chloride) 250 mls @ 166.7 mls/hr IVPB Q24H [facility]; Protocol Last Admin: 01/12/19 10:19 Dose: 166.7 mls/hr Dextrose/Sodium Chloride (Dextrose 5%/0.45% Ns 1000 Ml) 1,000 mls @ 100 mls/hr IV .Q10H [facility] Last Admin: 01/12/19 09:20 Dose: 100 mls/hr Lisinopril (Zestril) 5 mg PO DAILY [facility] Last Admin: 01/12/19 09:17 Dose: 5 mg Megestrol Acetate (Megace) 400 mg PO BID [facility] Last Admin: 01/12/19 17:48 Dose: 400 mg Morphine Sulfate (Morphine) 1 mg IV Q4H PRN PRN Reason: Pain, severe (8-10) Ondansetron HCl (Zofran Inj) 4 mg IVP Q6H PRN PRN Reason: Nausea/Vomiting Pantoprazole Sodium (Protonix Ec Tab) 40 mg PO DAILY [facility] Last Admin: 01/12/19 09:18 Dose: 40 mg Promethazine HCl (Phenergan Syrup) 6.25 mg PO Q6 PRN PRN Reason: Cough Last Admin: 01/12/19 17:49 Dose: 6.25 mg Saliva Substitute (First Magic Mouthwash) 5 ml PO Q6 [facility] Last Admin: 01/12/19 17:49 Dose: 5 ml Scopolamine (Transderm-Scop) 1 patch TD Q3D [facility] Last Admin: 01/11/19 10:20 Dose: 1 patch Tamsulosin HCl (Flomax) 0.4 mg PO BID [facility] Last Admin: 01/12/19 17:48 Dose: 0.4 mg - Labs Labs: 01/12/19 11:53 01/12/19 11:53 PT 15.8 SECONDS (9.7-12.2) H 12/29/18 06:30 INR 1.4 12/29/18 06:30 APTT 23 SECONDS (21-34) 12/29/18 06:30 - Constitutional Appears: Cachectic - Head Exam Head Exam: ATRAUMATIC - Eye Exam Eye Exam: Normal appearance - ENT Exam ENT Exam: Mucous Membranes Dry - Respiratory Exam Respiratory Exam: Decreased Breath Sounds - Cardiovascular Exam Cardiovascular Exam: +S1, +S2 - GI/Abdominal Exam GI & Abdominal Exam: Normal Bowel Sounds Assessment and Plan (1) Pancytopenia Assessment & Plan: secondary to AML and decitabine transfusion support PRN Status: Chronic (2) AML (acute myeloblastic leukemia) Assessment & Plan: on decitabine considering hospice DNR/DNI Status: Chronic
[2019-01-13] MEDS: Mag&Al/Simet/Diphen/Lido 237 ML KIT PO SCH ×3 (00:15→17:23)
[2019-01-13] MEDS: Micafungin 100 MG in Sodium Chloride 0.9% 100 ML IV SCH (00:29)
[2019-01-13] MEDS: Dextrose 5%/0.45% NS 1,000 ML IV SCH ×3 (00:42→21:48)
[2019-01-13] MEDS: Meropenem 1 GM in Sodium Chloride 0.9% 100 ML IVPB SCH ×3 (01:45→17:23)
--- NOTE | 2019-01-13 07:37 | CP.PCM.PN ---
Subjective - Date & Time of Evaluation Date of Evaluation: 01/13/19 Time of Evaluation: 07:35 - Subjective Subjective: Radha Masterson PGY1 Progress Note for Dr. Montoya Pt was examined at bedside this morning. As per at bedside, pt has difficulty urinating. He continues to cough overnight. His appetite has improved. Objective - Vital Signs/Intake and Output Vital Signs (last 24 hours): Temp Pulse Resp BP Pulse Ox 98.0 F 86 20 113/68 99 01/12/19 23:48 01/12/19 23:48 01/12/19 23:48 01/12/19 23:48 01/12/19 23:48 Intake and Output: 01/13/19 01/13/19 06:59 18:59 Intake Total 940 Balance 940 - Medications Medications: Current Medications Acetaminophen (Tylenol 325mg Tab) 650 mg PO Q6 PRN PRN Reason: Pain, moderate (4-7) Last Admin: 01/11/19 19:32 Dose: 650 mg Acetaminophen (Tylenol 325mg Tab) 650 mg PO ONCE PRN PRN Reason: pre med Last Admin: 01/09/19 01:35 Dose: 650 mg Diphenhydramine HCl (Benadryl) 25 mg IVP ONCE PRN PRN Reason: PRIOR TO TRANSFUSION Last Admin: 01/09/19 01:49 Dose: 25 mg Diphenhydramine HCl (Benadryl) 25 mg PO ONCE PRN PRN Reason: pre med Last Admin: 01/03/19 14:39 Dose: 25 mg Docusate Sodium (Colace) 100 mg PO BID [facility] Last Admin: 01/12/19 17:48 Dose: 100 mg Furosemide (Lasix) 20 mg PO DAILY [facility] Last Admin: 01/12/19 09:18 Dose: 20 mg Furosemide (Lasix) 20 mg IVP ONCE PRN PRN Reason: post transfusion Last Admin: 01/03/19 19:15 Dose: 20 mg Guaifenesin (Robitussin) 200 mg PO Q4H PRN PRN Reason: Cough and congestion Meropenem 1 gm/ Sodium (Chloride) 100 mls @ 100 mls/hr IVPB Q8H [facility]; Protocol Last Admin: 01/13/19 01:45 Dose: 100 mls/hr Micafungin Sodium 100 mg/ (Sodium Chloride) 100 mls @ 100 mls/hr IV Q24H [facility]; Protocol Last Admin: 01/13/19 00:29 Dose: 100 mls/hr Vancomycin HCl 1 gm/ Sodium (Chloride) 250 mls @ 166.7 mls/hr IVPB Q24H [facility]; Protocol Last Admin: 01/12/19 10:19 Dose: 166.7 mls/hr Dextrose/Sodium Chloride (Dextrose 5%/0.45% Ns 1000 Ml) 1,000 mls @ 100 mls/hr IV .Q10H [facility] Last Admin: 01/13/19 05:43 Dose: 100 mls/hr Lisinopril (Zestril) 5 mg PO DAILY [facility] Last Admin: 01/12/19 09:17 Dose: 5 mg Megestrol Acetate (Megace) 400 mg PO BID [facility] Last Admin: 01/12/19 17:48 Dose: 400 mg Morphine Sulfate (Morphine) 1 mg IV Q4H PRN PRN Reason: Pain, severe (8-10) Ondansetron HCl (Zofran Inj) 4 mg IVP Q6H PRN PRN Reason: Nausea/Vomiting Pantoprazole Sodium (Protonix Ec Tab) 40 mg PO DAILY [facility] Last Admin: 01/12/19 09:18 Dose: 40 mg Promethazine HCl (Phenergan Syrup) 6.25 mg PO Q6 PRN PRN Reason: Cough Last Admin: 01/12/19 17:49 Dose: 6.25 mg Saliva Substitute (First Magic Mouthwash) 5 ml PO Q6 [facility] Last Admin: 01/13/19 05:42 Dose: 5 ml Scopolamine (Transderm-Scop) 1 patch TD Q3D [facility] Last Admin: 01/11/19 10:20 Dose: 1 patch Tamsulosin HCl (Flomax) 0.4 mg PO BID [facility] Last Admin: 01/12/19 17:48 Dose: 0.4 mg - Labs Labs: 01/12/19 11:53 01/12/19 11:53 PT 15.8 SECONDS (9.7-12.2) H 12/29/18 06:30 INR 1.4 12/29/18 06:30 APTT 23 SECONDS (21-34) 12/29/18 06:30 - Additional Findings Additional findings: - Constitutional Appears: Cachectic, Chronically Ill - Head Exam Head Exam: ATRAUMATIC, NORMOCEPHALIC - Eye Exam Eye Exam: Normal appearance Pupil Exam: NORMAL ACCOMODATION - ENT Exam ENT Exam: Mucous Membranes Dry - Respiratory Exam Respiratory Exam: Decreased Breath Sounds, NORMAL BREATHING PATTERN. absent: Rales, Rhonchi, Respiratory Distress - Cardiovascular Exam Cardiovascular Exam: REGULAR RHYTHM, +S1, +S2. absent: Gallop, Rubs, Murmur - GI/Abdominal Exam GI & Abdominal Exam: Soft, Normal Bowel Sounds. 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 Admitted for pleural effusions. Pt is DNR/DNI, consider hospice. Plan: AML, currently on chemo Oncologist Dr. Bobby consulted, help appreciated Received 3rd dose of Decitabine 12/24/18 Hb/Hct 8.9/26.5 today Platelets 20 today 2u PRBC transfusion- 01/11/19 2u PRBC transfusion- 01/08/19 1u PRBC transfusion- 01/03/19 2u platelets transfusion- 01/02/19 2u PRBCs and 2u platelets transfusion received- 12/30/18 Neutropenic precautions Zofran 4mg Q6 PRN Healthcare Associated Pneumonia, with left sided Infiltrates Right sided Pleural effusion Cough Bending Shed Worker Dr. Thurston consulted, help appreciated CXR 01/11: interval decrease R pleural effusion. L pleural effusion is similar, in part loculated. contiguous left consolidation atelectasis and bronchiectasis. appearance is similar. bibasilar coaslexcent airspace opacities. coalescent patch infiltrate with or without concomitant pulmonary edema. biapical blebs bulla with parenchymal lung scarring similar. CT chest: No CTA evidence for acute pulmonary embolism.Dense consolidation with air bronchogram in the left upper and lower lobes. Moderate right and small left pleural effusions. Multiple variable-sized parenchymal and subpleural nodules in the right lung, the largest in the right middle lobe measures 1.7 x 1.3 cm. The se are nonspecific and could be infectious, inflammatory or neoplastic in etiology. Short-term interval follow-up is advised. Enlarged precarinal mediastinal lymph nodes, the largest measures 1.3 cm in transverse diameter. Mild cardiomegaly and small pericardial effusion. Saturating well on NC BCx negative to date UA +RBCs, no leuk est or nitrates UCx negative Sputum Cx: Staph. aureus only resistant to PCN ID Dr. Ferrari consulted, help appreciated Vancomycin 1g IV daily started 12/29/18 Merem 500mg IV Q8 started 12/29/18 Micofungin 100mg IV q24h (12/26/18) Negative legionella, strep pneumonia, mycoplasma, quantiferon, beta glucan, flu D-dimer 2156 D51/2NS @100cc/hr Lasix 20mg PO daily Phenergan PO PRN Scopolamine patch Mucinex 600mg PO BID Magic mouthwash Abdominal Pain Abd US: low-attenuation lesion L lobe liver. Liver exhibits increased echotexture secondary to fatty infiltration or hepatocellular disease. splenomegaly. several tiny echogenic foci adherent to gallbladder wall possibly representing polyps. slight increased renal echotexture. History of BPH Flomax 0.4mg PO BID History of HTN Lisinopril 5mg PO daily Hold for low blood pressure Poor Nutrition encourage PO intake Astronomy Professor consulted, recs appreciated Low Microbial Diet Ensure Enlive TID B12 842, wnl Megace 400mg PO BID Prophylaxis: Protonix SCDs PT/OT DNR/DNI Dispo: Family discussing hospice options with hospice retail account representative Case discussed with Dr. Montoya
[2019-01-13 08:03] LABS: EOS % 0.3 % (0.0-4.0); HEMOGLOBIN 8.9 g/dL (12.0-18.0); LYMPH # 0.2 K/uL (1.0-4.3); LYMPH % 85.9 % (20.0-40.0); MEAN CELL VOLUME 93.9 fL (80.0-94.0); MEAN CORPUSCULAR HEMOGLOBIN 31.5 pg (27.0-31.0); MEAN CORPUSCULAR HGB CONC 33.5 g/dL (33.0-37.0); MEAN PLATELET VOLUME 8.6 fL (7.2-11.7); MONO % 10.7 % (0.0-10.0); NEUT % 3.1 % (50.0-75.0); NRBC % 2.1 % (0.0-2.0); RBC 2.83 Mil/uL (4.40-5.90); RED CELL DISTRIBUTION WIDTH 12.7 % (11.5-14.5)
[2019-01-13 08:09] LABS: WHITE BLOOD COUNT 0.3 K/uL (4.8-10.8)
[2019-01-13 08:41] LABS: ALB/GLOB RATIO 0.6 (1.0-2.1); ALBUMIN 1.4 g/dL (3.5-5.0); ALT/SGPT 23 U/L (21-72); AST/SGOT 7 U/L (17-59); BLOOD UREA NITROGEN 21 mg/dL (9-20); CALCIUM 7.8 mg/dl (8.6-10.4); GFR NON-AFRICAN AMERICAN > 60
[2019-01-13] MEDS: Pantoprazole 40 mg EC Tab PO SCH (10:16)
[2019-01-13] MEDS: Megestrol Acetate 40 mg/ml Cup PO SCH ×2 (10:17→17:23)
--- NOTE | 2019-01-13 15:45 | RAD ---
HISTORY: pt with infiltrates COMPARISON: Chest x-ray performed 01/11/19, CTA chest performed 12/29/18 TECHNIQUE: Chest, one view. FINDINGS: LUNGS: Large left upper lobe bulla. Small right upper lobe bulla. Extensive consolidation/edema involving bilateral lung martines with layering pleural effusions. No definite pneumothorax. CARDIOVASCULAR: Obscured cardiomegaly. Dense atherosclerotic calcifications of the aortic knob. OSSEOUS STRUCTURES: Osseous demineralization. Degenerative changes. VISUALIZED UPPER ABDOMEN: Unremarkable. OTHER FINDINGS: None. IMPRESSION: Large left upper lobe bulla. Small right upper lobe bulla. Extensive consolidation/edema involving bilateral lung martines with layering pleural effusions.
--- NOTE | 2019-01-13 18:59 | CP.PCM.PN ---
Subjective - Date & Time of Evaluation Date of Evaluation: 01/13/19 Time of Evaluation: 18:57 - Subjective Subjective: Pulmonary follow up, Covering Dr Thurston The Patient was seen and examined at the bedside, Medical records reviewed, and management issues were discussed and formulated with the house staff. Events reviewed Patient is 78 years old former smoker male (quit >20 years ago) with past medical history of hypertension, BPH, AML on chemotherapy and chronic obstructive pulmonary disease Who initially presented to the emergency room with worsening shortness of breath, cough and hypoxemia Chest x-ray and CT scan of the chest was consistent with diffuse lung infiltrate and a small pleural effusion Started on antibiotics Patient is doing better today cough improved less shortness of breath and denies chest pain No fever or chills On exam he is awake oriented comfortable and does not appear to be in any distress Afebrile appetite improved Patient seen and examined at bedside. He states he still experiences cough but it has improved. Objective - Vital Signs/Intake and Output Vital Signs (last 24 hours): Temp Pulse Resp BP Pulse Ox 98.0 F 86 20 89/55 L 96 01/13/19 15:28 01/13/19 15:28 01/13/19 15:28 01/13/19 15:28 01/13/19 15:28 Intake and Output: 01/13/19 01/13/19 06:59 18:59 Intake Total 940 1400 Balance 940 1400 - Medications Medications: Current Medications Acetaminophen (Tylenol 325mg Tab) 650 mg PO Q6 PRN PRN Reason: Pain, moderate (4-7) Last Admin: 01/11/19 19:32 Dose: 650 mg Acetaminophen (Tylenol 325mg Tab) 650 mg PO ONCE PRN PRN Reason: pre med Last Admin: 01/09/19 01:35 Dose: 650 mg Diphenhydramine HCl (Benadryl) 25 mg IVP ONCE PRN PRN Reason: PRIOR TO TRANSFUSION Last Admin: 01/09/19 01:49 Dose: 25 mg Diphenhydramine HCl (Benadryl) 25 mg PO ONCE PRN PRN Reason: pre med Last Admin: 01/03/19 14:39 Dose: 25 mg Docusate Sodium (Colace) 100 mg PO BID [facility] Last Admin: 01/13/19 10:16 Dose: 100 mg Furosemide (Lasix) 20 mg PO DAILY [facility] Last Admin: 01/13/19 10:16 Dose: 20 mg Furosemide (Lasix) 20 mg IVP ONCE PRN PRN Reason: post transfusion Last Admin: 01/03/19 19:15 Dose: 20 mg Guaifenesin (Robitussin) 200 mg PO Q4H PRN PRN Reason: Cough and congestion Meropenem 1 gm/ Sodium (Chloride) 100 mls @ 100 mls/hr IVPB Q8H [facility]; Protocol Last Admin: 01/13/19 17:23 Dose: 100 mls/hr Micafungin Sodium 100 mg/ (Sodium Chloride) 100 mls @ 100 mls/hr IV Q24H [facility]; Protocol Last Admin: 01/13/19 00:29 Dose: 100 mls/hr Vancomycin HCl 1 gm/ Sodium (Chloride) 250 mls @ 166.7 mls/hr IVPB Q24H [facility]; Protocol Last Admin: 01/13/19 10:15 Dose: 166.7 mls/hr Dextrose/Sodium Chloride (Dextrose 5%/0.45% Ns 1000 Ml) 1,000 mls @ 100 mls/hr IV .Q10H [facility] Last Admin: 01/13/19 05:43 Dose: 100 mls/hr Lisinopril (Zestril) 5 mg PO DAILY [facility] Last Admin: 01/13/19 10:16 Dose: 5 mg Megestrol Acetate (Megace) 400 mg PO BID [facility] Last Admin: 01/13/19 17:23 Dose: 400 mg Morphine Sulfate (Morphine) 1 mg IV Q4H PRN PRN Reason: Pain, severe (8-10) Ondansetron HCl (Zofran Inj) 4 mg IVP Q6H PRN PRN Reason: Nausea/Vomiting Pantoprazole Sodium (Protonix Ec Tab) 40 mg PO DAILY [facility] Last Admin: 01/13/19 10:16 Dose: 40 mg Promethazine HCl (Phenergan Syrup) 6.25 mg PO Q6 PRN PRN Reason: Cough Last Admin: 01/12/19 17:49 Dose: 6.25 mg Saliva Substitute (First Magic Mouthwash) 5 ml PO Q6 [facility] Last Admin: 01/13/19 17:23 Dose: 5 ml Scopolamine (Transderm-Scop) 1 patch TD Q3D [facility] Last Admin: 01/11/19 10:20 Dose: 1 patch Tamsulosin HCl (Flomax) 0.4 mg PO BID [facility] Last Admin: 01/13/19 17:22 Dose: 0.4 mg - Labs Labs: 01/13/19 07:48 01/13/19 07:48 PT 15.8 SECONDS (9.7-12.2) H 12/29/18 06:30 INR 1.4 12/29/18 06:30 APTT 23 SECONDS (21-34) 12/29/18 06:30 - Constitutional Appears: Well, Non-toxic - Head Exam Head Exam: ATRAUMATIC, NORMAL INSPECTION - Eye Exam Eye Exam: EOMI, Normal appearance Pupil Exam: NORMAL ACCOMODATION - ENT Exam ENT Exam: Mucous Membranes Moist, Normal Exam - Respiratory Exam Respiratory Exam: Chest Wall Tenderness, Decreased Breath Sounds, Rhonchi, NORMAL BREATHING PATTERN. absent: Rales, Wheezes - GI/Abdominal Exam GI & Abdominal Exam: Soft, Normal Bowel Sounds. absent: Tenderness Assessment and Plan (1) Pancytopenia Status: Acute (2) Pleural effusion, left Status: Acute (3) Pneumonia Status: Acute (4) Lung mass Status: Acute (5) Pneumothorax Status: Acute - Assessment and Plan (Free Text) Assessment: Pneumonia Pleural effusion, left - Continue antibiotics - Clinically improving - Follow-up CXR - Supplemental Oxygen to keep sat>94%
[2019-01-14] MEDS: Mag&Al/Simet/Diphen/Lido 237 ML KIT PO SCH ×4 (00:26→18:00)
[2019-01-14] MEDS: Micafungin 100 MG in Sodium Chloride 0.9% 100 ML IV SCH ×2 (00:26→23:59)
[2019-01-14] MEDS: Meropenem 1 GM in Sodium Chloride 0.9% 100 ML IVPB SCH ×3 (01:02→17:12)
[2019-01-14] MEDS: Dextrose 5%/0.45% NS 1,000 ML IV SCH ×2 (05:20→17:10)
[2019-01-14] MEDS: Pantoprazole 40 mg EC Tab PO SCH (10:18)
[2019-01-14] MEDS: Megestrol Acetate 40 mg/ml Cup PO SCH ×2 (10:19→17:11)
[2019-01-14 11:24] LABS: HEMOGLOBIN 7.7 g/dL (12.0-18.0); LYMPH # 0.2 K/uL (1.0-4.3)
[2019-01-14 11:34] LABS: EOS % 0.4 % (0.0-4.0); LYMPH % 89.4 % (20.0-40.0); MEAN CELL VOLUME 93.9 fL (80.0-94.0); MEAN CORPUSCULAR HEMOGLOBIN 31.6 pg (27.0-31.0); MEAN CORPUSCULAR HGB CONC 33.7 g/dL (33.0-37.0); MEAN PLATELET VOLUME 9.6 fL (7.2-11.7); MONO % 7.4 % (0.0-10.0); NEUT % 2.8 % (50.0-75.0); NRBC % 1.4 % (0.0-2.0); RBC 2.45 Mil/uL (4.40-5.90); RED CELL DISTRIBUTION WIDTH 12.7 % (11.5-14.5)
[2019-01-14 11:38] LABS: WHITE BLOOD COUNT 0.3 K/uL (4.8-10.8)
[2019-01-14 12:03] LABS: ALB/GLOB RATIO 0.6 (1.0-2.1); ALBUMIN 1.3 g/dL (3.5-5.0); ALT/SGPT 18 U/L (21-72); AST/SGOT 7 U/L (17-59); BLOOD UREA NITROGEN 18 mg/dL (9-20); CALCIUM 7.8 mg/dl (8.6-10.4); GFR NON-AFRICAN AMERICAN > 60
--- NOTE | 2019-01-14 14:01 | CP.PCM.PN ---
Subjective - Date & Time of Evaluation Date of Evaluation: 01/14/19 Time of Evaluation: 13:57 - Subjective Subjective: Radha Masterson PGY1 Progress note for Dr. Montoya Pt was examined at bedside this morning. As per RN, he urinated before sleep last night. As per at bedside, pt did not urinate after that. Objective - Vital Signs/Intake and Output Vital Signs (last 24 hours): Temp Pulse Resp BP Pulse Ox 97.9 F 91 H 18 99/59 L 98 01/14/19 08:00 01/14/19 08:00 01/14/19 08:00 01/14/19 10:21 01/14/19 08:00 - Medications Medications: Current Medications Acetaminophen (Tylenol 325mg Tab) 650 mg PO Q6 PRN PRN Reason: Pain, moderate (4-7) Last Admin: 01/11/19 19:32 Dose: 650 mg Acetaminophen (Tylenol 325mg Tab) 650 mg PO ONCE PRN PRN Reason: pre med Last Admin: 01/09/19 01:35 Dose: 650 mg Diphenhydramine HCl (Benadryl) 25 mg IVP ONCE PRN PRN Reason: PRIOR TO TRANSFUSION Last Admin: 01/09/19 01:49 Dose: 25 mg Diphenhydramine HCl (Benadryl) 25 mg PO ONCE PRN PRN Reason: pre med Last Admin: 01/03/19 14:39 Dose: 25 mg Docusate Sodium (Colace) 100 mg PO BID [facility] Last Admin: 01/14/19 10:19 Dose: Not Given Furosemide (Lasix) 20 mg PO DAILY [facility] Last Admin: 01/14/19 10:21 Dose: Not Given Furosemide (Lasix) 20 mg IVP ONCE PRN PRN Reason: post transfusion Last Admin: 01/03/19 19:15 Dose: 20 mg Guaifenesin (Robitussin) 200 mg PO Q4H PRN PRN Reason: Cough and congestion Meropenem 1 gm/ Sodium (Chloride) 100 mls @ 100 mls/hr IVPB Q8H [facility]; Protocol Last Admin: 01/14/19 08:50 Dose: 100 mls/hr Micafungin Sodium 100 mg/ (Sodium Chloride) 100 mls @ 100 mls/hr IV Q24H [facility]; Protocol Last Admin: 01/14/19 00:26 Dose: 100 mls/hr Vancomycin HCl 1 gm/ Sodium (Chloride) 250 mls @ 166.7 mls/hr IVPB Q24H [facility]; Protocol Last Admin: 01/14/19 10:17 Dose: 166.7 mls/hr Dextrose/Sodium Chloride (Dextrose 5%/0.45% Ns 1000 Ml) 1,000 mls @ 100 mls/hr IV .Q10H [facility] Last Admin: 01/14/19 05:20 Dose: 100 mls/hr Lisinopril (Zestril) 5 mg PO DAILY [facility] Last Admin: 01/14/19 10:22 Dose: Not Given Megestrol Acetate (Megace) 400 mg PO BID [facility] Last Admin: 01/14/19 10:19 Dose: 400 mg Morphine Sulfate (Morphine) 1 mg IV Q4H PRN PRN Reason: Pain, severe (8-10) Ondansetron HCl (Zofran Inj) 4 mg IVP Q6H PRN PRN Reason: Nausea/Vomiting Pantoprazole Sodium (Protonix Ec Tab) 40 mg PO DAILY [facility] Last Admin: 01/14/19 10:18 Dose: 40 mg Promethazine HCl (Phenergan Syrup) 6.25 mg PO Q6 PRN PRN Reason: Cough Last Admin: 01/12/19 17:49 Dose: 6.25 mg Saliva Substitute (First Magic Mouthwash) 5 ml PO Q6 [facility] Last Admin: 01/14/19 13:30 Dose: Not Given Scopolamine (Transderm-Scop) 1 patch TD Q3D [facility] Last Admin: 01/14/19 10:22 Dose: 1 patch Tamsulosin HCl (Flomax) 0.4 mg PO BID [facility] Last Admin: 01/14/19 10:19 Dose: 0.4 mg - Labs Labs: 01/14/19 11:19 01/14/19 11:19 PT 15.8 SECONDS (9.7-12.2) H 12/29/18 06:30 INR 1.4 12/29/18 06:30 APTT 23 SECONDS (21-34) 12/29/18 06:30 - Additional Findings Additional findings: - Constitutional Appears: Cachectic, Chronically Ill - Head Exam Head Exam: ATRAUMATIC, NORMOCEPHALIC - Eye Exam Eye Exam: Normal appearance Pupil Exam: NORMAL ACCOMODATION - ENT Exam ENT Exam: Mucous Membranes Dry - Respiratory Exam Respiratory Exam: Decreased Breath Sounds, NORMAL BREATHING PATTERN. absent: Rales, Rhonchi, Respiratory Distress - Cardiovascular Exam Cardiovascular Exam: REGULAR RHYTHM, +S1, +S2. absent: Gallop, Rubs, Murmur - GI/Abdominal Exam GI & Abdominal Exam: Soft, Normal Bowel Sounds. 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 Admitted for pleural effusions. Pt is DNR/DNI, consider hospice. Plan: AML, currently on chemo Oncologist Dr. Bobby consulted, help appreciated Received 3rd dose of Decitabine 12/24/18 Hb/Hct 7.7/23.0 today Platelets 22 today 2u PRBC transfusion- 01/11/19 2u PRBC transfusion- 01/08/19 1u PRBC transfusion- 01/03/19 2u platelets transfusion- 01/02/19 2u PRBCs and 2u platelets transfusion received- 12/30/18 Neutropenic precautions Zofran 4mg Q6 PRN Transfuse PRN Healthcare Associated Pneumonia, with left sided Infiltrates Right sided Pleural effusion Cough Oil Drilling Engineer Dr. Thurston consulted, help appreciated CXR 01/11: interval decrease R pleural effusion. L pleural effusion is similar, in part loculated. contiguous left consolidation atelectasis and bronchiectasis. appearance is similar. bibasilar coaslexcent airspace opacities. coalescent patch infiltrate with or without concomitant pulmonary edema. biapical blebs bulla with parenchymal lung scarring similar. CT chest: No CTA evidence for acute pulmonary embolism.Dense consolidation with air bronchogram in the left upper and lower lobes. Moderate right and small left pleural effusions. Multiple variable-sized parenchymal and subpleural nodules in the right lung, the largest in the right middle lobe measures 1.7 x 1.3 cm. T hese are nonspecific and could be infectious, inflammatory or neoplastic in etiology. Short-term interval follow-up is advised. Enlarged precarinal mediastinal lymph nodes, the largest measures 1.3 cm in transverse diameter. Mild cardiomegaly and small pericardial effusion. Saturating well on NC BCx negative to date UA +RBCs, no leuk est or nitrates UCx negative Sputum Cx: Staph. aureus only resistant to PCN ID Dr. Ferrari consulted, help appreciated Vancomycin 1g IV daily started 12/29/18 Merem 500mg IV Q8 started 12/29/18 Micofungin 100mg IV q24h (12/26/18) Negative legionella, strep pneumonia, mycoplasma, quantiferon, beta glucan, flu D-dimer 2156 D51/2NS @100cc/hr Lasix 20mg PO daily Phenergan PO PRN Scopolamine patch Mucinex 600mg PO BID Magic mouthwash Abdominal Pain Abd US: low-attenuation lesion L lobe liver. Liver exhibits increased echotextu re secondary to fatty infiltration or hepatocellular disease. splenomegaly. several tiny echogenic foci adherent to gallbladder wall possibly representing polyps. slight increased renal echotexture. Bladder scans PRN History of BPH Flomax 0.4mg PO BID History of HTN Lisinopril 5mg PO daily Hold for low blood pressure Poor Nutrition encourage PO intake Mounting Inspector consulted, recs appreciated Low Microbial Diet Ensure Enlive TID B12 842, wnl Megace 400mg PO BID Prophylaxis: Protonix SCDs PT/OT DNR/DNI Dispo: Family discussing hospice options with hospice sales representative door to door Case discussed with Dr. Montoya
--- NOTE | 2019-01-14 18:27 | CP.PCM.PN ---
Subjective - Date & Time of Evaluation Date of Evaluation: 01/14/19 Time of Evaluation: 09:00 - Subjective Subjective: afebrile alert NAD Objective - Vital Signs/Intake and Output Vital Signs (last 24 hours): Temp Pulse Resp BP Pulse Ox 98.0 F 86 20 94/60 L 100 01/14/19 15:00 01/14/19 15:00 01/14/19 15:00 01/14/19 15:00 01/14/19 15:00 - Medications Medications: Current Medications Acetaminophen (Tylenol 325mg Tab) 650 mg PO Q6 PRN PRN Reason: Pain, moderate (4-7) Last Admin: 01/11/19 19:32 Dose: 650 mg Acetaminophen (Tylenol 325mg Tab) 650 mg PO ONCE PRN PRN Reason: pre med Last Admin: 01/09/19 01:35 Dose: 650 mg Diphenhydramine HCl (Benadryl) 25 mg IVP ONCE PRN PRN Reason: PRIOR TO TRANSFUSION Last Admin: 01/09/19 01:49 Dose: 25 mg Diphenhydramine HCl (Benadryl) 25 mg PO ONCE PRN PRN Reason: pre med Last Admin: 01/03/19 14:39 Dose: 25 mg Docusate Sodium (Colace) 100 mg PO BID [facility] Last Admin: 01/14/19 17:11 Dose: 100 mg Furosemide (Lasix) 20 mg PO DAILY [facility] Last Admin: 01/14/19 10:21 Dose: Not Given Furosemide (Lasix) 20 mg IVP ONCE PRN PRN Reason: post transfusion Last Admin: 01/03/19 19:15 Dose: 20 mg Guaifenesin (Robitussin) 200 mg PO Q4H PRN PRN Reason: Cough and congestion Meropenem 1 gm/ Sodium (Chloride) 100 mls @ 100 mls/hr IVPB Q8H [facility]; Protocol Last Admin: 01/14/19 17:12 Dose: 100 mls/hr Micafungin Sodium 100 mg/ (Sodium Chloride) 100 mls @ 100 mls/hr IV Q24H [facility]; Protocol Last Admin: 01/14/19 00:26 Dose: 100 mls/hr Vancomycin HCl 1 gm/ Sodium (Chloride) 250 mls @ 166.7 mls/hr IVPB Q24H [facility]; Protocol Last Admin: 01/14/19 10:17 Dose: 166.7 mls/hr Dextrose/Sodium Chloride (Dextrose 5%/0.45% Ns 1000 Ml) 1,000 mls @ 100 mls/hr IV .Q10H [facility] Last Admin: 01/14/19 05:20 Dose: 100 mls/hr Lisinopril (Zestril) 5 mg PO DAILY [facility] Last Admin: 01/14/19 10:22 Dose: Not Given Megestrol Acetate (Megace) 400 mg PO BID [facility] Last Admin: 01/14/19 17:11 Dose: 400 mg Morphine Sulfate (Morphine) 1 mg IV Q4H PRN PRN Reason: Pain, severe (8-10) Ondansetron HCl (Zofran Inj) 4 mg IVP Q6H PRN PRN Reason: Nausea/Vomiting Pantoprazole Sodium (Protonix Ec Tab) 40 mg PO DAILY [facility] Last Admin: 01/14/19 10:18 Dose: 40 mg Promethazine HCl (Phenergan Syrup) 6.25 mg PO Q6 PRN PRN Reason: Cough Last Admin: 01/12/19 17:49 Dose: 6.25 mg Saliva Substitute (First Magic Mouthwash) 5 ml PO Q6 [facility] Last Admin: 01/14/19 13:30 Dose: Not Given Scopolamine (Transderm-Scop) 1 patch TD Q3D [facility] Last Admin: 01/14/19 10:22 Dose: 1 patch Tamsulosin HCl (Flomax) 0.4 mg PO BID [facility] Last Admin: 01/14/19 17:11 Dose: 0.4 mg - Labs Labs: 01/14/19 11:19 01/14/19 11:19 PT 15.8 SECONDS (9.7-12.2) H 12/29/18 06:30 INR 1.4 12/29/18 06:30 APTT 23 SECONDS (21-34) 12/29/18 06:30 - Constitutional Appears: No Acute Distress, Cachectic, Chronically Ill - Head Exam Head Exam: NORMOCEPHALIC - Eye Exam Eye Exam: EOMI, Normal appearance, PERRL Pupil Exam: absent: NORMAL ACCOMODATION - ENT Exam ENT Exam: Mucous Membranes Moist, Normal Exam - Neck Exam Neck Exam: Full ROM, Normal Inspection. absent: Lymphadenopathy - Respiratory Exam Respiratory Exam: Clear to Ausculation Bilateral, NORMAL BREATHING PATTERN - Cardiovascular Exam Cardiovascular Exam: REGULAR RHYTHM, +S1, +S2. absent: Murmur - GI/Abdominal Exam GI & Abdominal Exam: Soft, Normal Bowel Sounds. absent: Tenderness - Rectal Exam Rectal Exam: Deferred - Exam Exam: NORMAL INSPECTION - Extremities Exam Extremities Exam: Full ROM, Normal Capillary Refill, Normal Inspection. absent: Joint Swelling, Pedal Edema - Back Exam Back Exam: NORMAL INSPECTION - Neurological Exam Neurological Exam: Alert, Awake, CN II-XII Intact, Normal Gait, Oriented x3 - Psychiatric Exam Psychiatric exam: Normal Affect, Normal Mood - Skin Skin Exam: Dry, Intact, Normal Color, Warm Assessment and Plan (1) Pleural effusion, left Status: Acute (2) Pneumonia Status: Acute (3) Pleural effusion Status: Acute (4) AML (acute myeloblastic leukemia) Status: Chronic (5) Pancytopenia Status: Chronic - Assessment and Plan (Free Text) Assessment: remains neutropenic but afebrile IV antibiotics renewed
[2019-01-15] MEDS: Mag&Al/Simet/Diphen/Lido 237 ML KIT PO SCH ×5 (00:09→23:48)
[2019-01-15] MEDS: Meropenem 1 GM in Sodium Chloride 0.9% 100 ML IVPB SCH ×3 (01:03→17:51)
[2019-01-15] MEDS: Dextrose 5%/0.45% NS 1,000 ML IV SCH ×2 (03:10→23:56)
[2019-01-15 07:37] LABS: EOS % 0.2 % (0.0-4.0); HEMOGLOBIN 6.7 g/dL (12.0-18.0); LYMPH # 0.2 K/uL (1.0-4.3); LYMPH % 88.7 % (20.0-40.0); MEAN CELL VOLUME 94.8 fL (80.0-94.0); MEAN CORPUSCULAR HGB CONC 32.8 g/dL (33.0-37.0); MEAN PLATELET VOLUME 8.6 fL (7.2-11.7); NEUT % 3.1 % (50.0-75.0); NRBC % 0.6 % (0.0-2.0); RBC 2.16 Mil/uL (4.40-5.90); RED CELL DISTRIBUTION WIDTH 12.3 % (11.5-14.5)
[2019-01-15 07:46] LABS: WHITE BLOOD COUNT 0.3 K/uL (4.8-10.8)
[2019-01-15 08:06] LABS: ALB/GLOB RATIO 0.5 (1.0-2.1); ALBUMIN 1.2 g/dL (3.5-5.0); ALT/SGPT 17 U/L (21-72); AST/SGOT 8 U/L (17-59); BLOOD UREA NITROGEN 16 mg/dL (9-20); CALCIUM 7.8 mg/dl (8.6-10.4); GFR NON-AFRICAN AMERICAN > 60
[2019-01-15] MEDS: Megestrol Acetate 40 mg/ml Cup PO SCH ×2 (09:40→17:50)
[2019-01-15] MEDS: Pantoprazole 40 mg EC Tab PO SCH (09:41)
[2019-01-15] MEDS ORDERED: Vancomycin 750mg/NS 150 ml 150 ML IV SCH (10:30)
--- NOTE | 2019-01-15 15:45 | CP.PCM.PN ---
Subjective - Date & Time of Evaluation Date of Evaluation: 01/15/19 Time of Evaluation: 15:38 - Subjective Subjective: Pulmonary follow up, Covering Dr Thurston The Patient was seen and examined at the bedside, Medical records reviewed, and management issues were discussed and formulated with the house staff. 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 Patient is doing better today cough improved less shortness of breath and denies chest pain No fever or chills On exam he is awake oriented comfortable and does not appear to be in any distress He states he still experiences cough but it has improved. Afebrile 97.4 BP borderline 90-100/55-60 on D5 1/2 NS at 100 cc/H, no signs of fluid overload on exam appetite slightly improved O2 saturation 98-100 on 2L nasal cannula Objective - Vital Signs/Intake and Output Vital Signs (last 24 hours): Temp Pulse Resp BP Pulse Ox 97.3 F L 80 20 96/60 L 100 01/15/19 07:45 01/15/19 07:45 01/15/19 07:45 01/15/19 09:44 01/15/19 07:45 Intake and Output: 01/15/19 01/15/19 06:59 18:59 Intake Total 1959 1150 Output Total 1 Balance 195 1150 - Medications Medications: Current Medications Acetaminophen (Tylenol 325mg Tab) 650 mg PO Q6 PRN PRN Reason: Pain, moderate (4-7) Last Admin: 01/11/19 19:32 Dose: 650 mg Acetaminophen (Tylenol 325mg Tab) 650 mg PO ONCE PRN PRN Reason: pre med Last Admin: 01/09/19 01:35 Dose: 650 mg Diphenhydramine HCl (Benadryl) 25 mg IVP ONCE PRN PRN Reason: PRIOR TO TRANSFUSION Last Admin: 01/09/19 01:49 Dose: 25 mg Diphenhydramine HCl (Benadryl) 25 mg PO ONCE PRN PRN Reason: pre med Last Admin: 01/03/19 14:39 Dose: 25 mg Docusate Sodium (Colace) 100 mg PO BID [facility] Last Admin: 01/15/19 09:41 Dose: 100 mg Furosemide (Lasix) 20 mg PO DAILY [facility] Last Admin: 01/15/19 09:44 Dose: Not Given Furosemide (Lasix) 20 mg IVP ONCE PRN PRN Reason: post transfusion Last Admin: 01/03/19 19:15 Dose: 20 mg Guaifenesin (Robitussin) 200 mg PO Q4H PRN PRN Reason: Cough and congestion Meropenem 1 gm/ Sodium (Chloride) 100 mls @ 100 mls/hr IVPB Q8H [facility]; Protocol Last Admin: 01/15/19 08:18 Dose: 100 mls/hr Micafungin Sodium 100 mg/ (Sodium Chloride) 100 mls @ 100 mls/hr IV Q24H [facility]; Protocol Last Admin: 01/14/19 23:59 Dose: 100 mls/hr Dextrose/Sodium Chloride (Dextrose 5%/0.45% Ns 1000 Ml) 1,000 mls @ 100 mls/hr IV .Q10H [facility] Last Admin: 01/15/19 03:10 Dose: 100 mls/hr Vancomycin HCl 750 mg/ Sodium (Chloride) 250 mls @ 166.7 mls/hr IVPB Q24H [facility]; Protocol Stop: 01/20/19 10:31 Last Admin: 01/15/19 10:26 Dose: 166.7 mls/hr Lisinopril (Zestril) 5 mg PO DAILY [facility] Last Admin: 01/15/19 09:42 Dose: 5 mg Megestrol Acetate (Megace) 400 mg PO BID [facility] Last Admin: 01/15/19 09:40 Dose: 400 mg Morphine Sulfate (Morphine) 1 mg IV Q4H PRN PRN Reason: Pain, severe (8-10) Last Admin: 01/15/19 11:32 Dose: 1 mg Ondansetron HCl (Zofran Inj) 4 mg IVP Q6H PRN PRN Reason: Nausea/Vomiting Pantoprazole Sodium (Protonix Ec Tab) 40 mg PO DAILY [facility] Last Admin: 01/15/19 09:41 Dose: 40 mg Promethazine HCl (Phenergan Syrup) 6.25 mg PO Q6 PRN PRN Reason: Cough Last Admin: 01/12/19 17:49 Dose: 6.25 mg Saliva Substitute (First Magic Mouthwash) 5 ml PO Q6 [facility] Last Admin: 01/15/19 12:11 Dose: 5 ml Scopolamine (Transderm-Scop) 1 patch TD Q3D [facility] Last Admin: 01/14/19 10:22 Dose: 1 patch Tamsulosin HCl (Flomax) 0.4 mg PO BID [facility] Last Admin: 01/15/19 09:41 Dose: 0.4 mg - Labs Labs: 01/15/19 07:23 01/15/19 07:23 PT 15.8 SECONDS (9.7-12.2) H 12/29/18 06:30 INR 1.4 12/29/18 06:30 APTT 23 SECONDS (21-34) 12/29/18 06:30 - Constitutional Appears: Older Than Stated Age, Cachectic - Head Exam Head Exam: ATRAUMATIC, NORMAL INSPECTION - Eye Exam Eye Exam: EOMI, PERRL - ENT Exam ENT Exam: Mucous Membranes Moist - Neck Exam Neck Exam: Normal Inspection - Respiratory Exam Respiratory Exam: Decreased Breath Sounds, Rhonchi, NORMAL BREATHING PATTERN. absent: Clear to Ausculation Bilateral, Rales, Wheezes - GI/Abdominal Exam GI & Abdominal Exam: Soft, Normal Bowel Sounds. absent: Tenderness - Rectal Exam Rectal Exam: NORMAL INSPECTION - Neurological Exam Neurological Exam: Alert, Awake Assessment and Plan (1) Pancytopenia Status: Acute (2) Pleural effusion, left Status: Acute (3) Pneumonia Status: Acute (4) Lung mass Status: Acute (5) Pneumothorax Status: Acute - Assessment and Plan (Free Text) Assessment: Pneumonia Pleural effusion, left - Continue antibiotics - Clinically improving - Follow-up repeat CXR on Thursday - Supplemental Oxygen to keep sat>94%
--- NOTE | 2019-01-15 18:41 | CP.PCM.PN ---
Subjective - Date & Time of Evaluation Date of Evaluation: 01/15/19 Time of Evaluation: 10:15 - Subjective Subjective: Patient seen and examined at beside. ROS unable to be obtained due to poor speech. He did not that he was having lower extremity pain. at bedside and noted that the swelling all over his body has increased. Overall, he was said he was "okay" by using a head nod. Objective - Vital Signs/Intake and Output Vital Signs (last 24 hours): Temp Pulse Resp BP Pulse Ox 97.4 F L 91 H 20 96/58 L 100 01/15/19 15:52 01/15/19 15:52 01/15/19 15:52 01/15/19 15:52 01/15/19 15:52 Intake and Output: 01/15/19 01/15/19 06:59 18:59 Intake Total 1959 1150 Output Total Balance 1958 1150 - Medications Medications: Current Medications Acetaminophen (Tylenol 325mg Tab) 650 mg PO Q6 PRN PRN Reason: Pain, moderate (4-7) Last Admin: 01/11/19 19:32 Dose: 650 mg Acetaminophen (Tylenol 325mg Tab) 650 mg PO ONCE PRN PRN Reason: pre med Last Admin: 01/09/19 01:35 Dose: 650 mg Diphenhydramine HCl (Benadryl) 25 mg IVP ONCE PRN PRN Reason: PRIOR TO TRANSFUSION Last Admin: 01/09/19 01:49 Dose: 25 mg Diphenhydramine HCl (Benadryl) 25 mg PO ONCE PRN PRN Reason: pre med Last Admin: 01/03/19 14:39 Dose: 25 mg Docusate Sodium (Colace) 100 mg PO BID [facility] Last Admin: 01/15/19 17:51 Dose: 100 mg Furosemide (Lasix) 20 mg PO DAILY [facility] Last Admin: 01/15/19 09:44 Dose: Not Given Furosemide (Lasix) 20 mg IVP ONCE PRN PRN Reason: post transfusion Last Admin: 01/03/19 19:15 Dose: 20 mg Guaifenesin (Robitussin) 200 mg PO Q4H PRN PRN Reason: Cough and congestion Meropenem 1 gm/ Sodium (Chloride) 100 mls @ 100 mls/hr IVPB Q8H [facility]; Protocol Last Admin: 01/15/19 17:51 Dose: 100 mls/hr Micafungin Sodium 100 mg/ (Sodium Chloride) 100 mls @ 100 mls/hr IV Q24H [facility]; Protocol Last Admin: 01/14/19 23:59 Dose: 100 mls/hr Dextrose/Sodium Chloride (Dextrose 5%/0.45% Ns 1000 Ml) 1,000 mls @ 100 mls/hr IV .Q10H [facility] Last Admin: 01/15/19 03:10 Dose: 100 mls/hr Vancomycin HCl 750 mg/ Sodium (Chloride) 250 mls @ 166.7 mls/hr IVPB Q24H [facility]; Protocol Stop: 01/20/19 10:31 Last Admin: 01/15/19 10:26 Dose: 166.7 mls/hr Lisinopril (Zestril) 5 mg PO DAILY [facility] Last Admin: 01/15/19 09:42 Dose: 5 mg Megestrol Acetate (Megace) 400 mg PO BID [facility] Last Admin: 01/15/19 17:50 Dose: 400 mg Morphine Sulfate (Morphine) 1 mg IV Q4H PRN PRN Reason: Pain, severe (8-10) Last Admin: 01/15/19 11:32 Dose: 1 mg Ondansetron HCl (Zofran Inj) 4 mg IVP Q6H PRN PRN Reason: Nausea/Vomiting Pantoprazole Sodium (Protonix Ec Tab) 40 mg PO DAILY [facility] Last Admin: 01/15/19 09:41 Dose: 40 mg Promethazine HCl (Phenergan Syrup) 6.25 mg PO Q6 PRN PRN Reason: Cough Last Admin: 01/12/19 17:49 Dose: 6.25 mg Saliva Substitute (First Magic Mouthwash) 5 ml PO Q6 [facility] Last Admin: 01/15/19 17:50 Dose: 5 ml Scopolamine (Transderm-Scop) 1 patch TD Q3D [facility] Last Admin: 01/14/19 10:22 Dose: 1 patch Tamsulosin HCl (Flomax) 0.4 mg PO BID [facility] Last Admin: 01/15/19 17:51 Dose: 0.4 mg - Labs Labs: 01/15/19 07:23 01/15/19 07:23 PT 15.8 SECONDS (9.7-12.2) H 12/29/18 06:30 INR 1.4 12/29/18 06:30 APTT 23 SECONDS (21-34) 12/29/18 06:30 - Additional Findings Additional findings: - Constitutional Appears: Cachectic, Chronically Ill - Head Exam Head Exam: ATRAUMATIC, NORMOCEPHALIC - Eye Exam Eye Exam: Normal appearance Pupil Exam: NORMAL ACCOMODATION - ENT Exam ENT Exam: Mucous Membranes Dry - Respiratory Exam Respiratory Exam: Decreased Breath Sounds, NORMAL BREATHING PATTERN. absent: Rales, Rhonchi, Respiratory Distress - Cardiovascular Exam Cardiovascular Exam: REGULAR RHYTHM, +S1, +S2. absent: Gallop, Rubs, Murmur - GI/Abdominal Exam GI & Abdominal Exam: Soft, Normal Bowel Sounds. absent: Distended, Tenderness - Extremities Exam Extremities Exam: Pedal Edema, Upper Extremity Edema - Neurological Exam Neurological Exam: Alert, Awake, Oriented x3 - Psychiatric Exam Psychiatric exam: Restricted Affect, Normal Mood - Skin Skin Exam: Normal Color Assessment and Plan - Assessment and Plan (Free Text) Assessment: 78 year old male with history of COPD, AML on chemo, BPH, HTN who presents for shortness of breath. Admitted for pleural effusions. Pt is DNR/DNI, consider hospice. Plan: AML, currently on chemo Oncologist Dr. Bobby consulted, help appreciated Received 3rd dose of Decitabine 12/24/18 Hb/Hct 7.7/23.0 today Platelets 24 today 1u PRBC transfusion - 01/15/19 2u PRBC transfusion- 01/11/19 2u PRBC transfusion- 01/08/19 1u PRBC transfusion- 01/03/19 2u platelets transfusion- 01/02/19 2u PRBCs and 2u platelets transfusion received- 12/30/18 Neutropenic precautions Zofran 4mg Q6 PRN Transfuse PRN Healthcare Associated Pneumonia, with left sided Infiltrates Right sided Pleural effusion Cough Inspector Tool Dr. Thurston consulted, help appreciated CXR 01/11: interval decrease R pleural effusion. L pleural effusion is similar, in part loculated. contiguous left consolidation atelectasis and bronchiectasis. appearance is similar. bibasilar coaslexcent airspace opacities. coalescent patch infiltrate with or without concomitant pulmonary edema. biapical blebs bulla with parenchymal lung scarring similar. CT chest: No CTA evidence for acute pulmonary embolism.Dense consolidation with air bronchogram in the left upper and lower lobes. Moderate right and small left pleural effusions. Multiple variable-sized parenchymal and subpleural nodules in the right lung, the largest in the right middle lobe measures 1.7 x 1.3 cm. These are nonspecific and could be infectious, inflammatory or neoplastic in etiology. Short-term interval follow-up is advised. Enlarged precarinal mediastinal lymph nodes, the largest measures 1.3 cm in transverse diameter. Mild cardiomegaly and small pericardial effusion. Saturating well on NC BCx negative to date UA +RBCs, no leuk est or nitrates UCx negative Sputum Cx: Staph. aureus only resistant to PCN ID Dr. Ferrari consulted, help appreciated Vancomycin 750grams IV Daily, decreased from started 12/29/18 Merem 500mg IV Q8 started 12/29/18 Micofungin 100mg IV q24h (12/26/18) Negative legionella, strep pneumonia, mycoplasma, quantiferon, beta glucan, flu D-dimer 2156 D51/2NS @100cc/hr Lasix 20mg PO daily Phenergan PO PRN Scopolamine patch Mucinex 600mg PO BID Magic mouthwash Abdominal Pain Abd US: low-attenuation lesion L lobe liver. Liver exhibits increased echotexture secondary to fatty infiltration or hepatocellular disease. splenomegaly. several tiny echogenic foci adherent to gallbladder wall possibly representing polyps. slight increased renal echotexture. Bladder scans PRN History of BPH Flomax 0.4mg PO BID History of HTN Lisinopril 5mg PO daily Hold for low blood pressure Poor Nutrition encourage PO intake Signal Inspector consulted, recs appreciated Low Microbial Diet Ensure Enlive TID B12 842, wnl Megace 400mg PO BID Prophylaxis: Protonix SCDs PT/OT DNR/DNI Dispo: Family discussing hospice options with hospice lead generation representative Case discussed with Dr. Lindsay Greenberg, PGY-2
[2019-01-15] MEDS: DiphenhydrAMINE 50 mg/ml Inj IVP PRN (19:40)
[2019-01-15] MEDS: Micafungin 100 MG in Sodium Chloride 0.9% 100 ML IV SCH (23:46)
[2019-01-16] MEDS: Meropenem 1 GM in Sodium Chloride 0.9% 100 ML IVPB SCH ×3 (00:45→17:30)
[2019-01-16] MEDS: Mag&Al/Simet/Diphen/Lido 237 ML KIT PO SCH ×3 (05:17→17:32)
[2019-01-16] MEDS ORDERED: Vancomycin 750mg/NS 150 ml 150 ML IVPB SCH (06:15)
[2019-01-16 08:23] LABS: EOS % 0.3 % (0.0-4.0); HEMOGLOBIN 7.6 g/dL (12.0-18.0); LYMPH # 0.3 K/uL (1.0-4.3); LYMPH % 91.7 % (20.0-40.0); MEAN CELL VOLUME 94.5 fL (80.0-94.0); MEAN CORPUSCULAR HEMOGLOBIN 31.7 pg (27.0-31.0); MEAN CORPUSCULAR HGB CONC 33.5 g/dL (33.0-37.0); MEAN PLATELET VOLUME 8.7 fL (7.2-11.7); MONO % 5.2 % (0.0-10.0); NEUT % 2.8 % (50.0-75.0); NRBC % 0.2 % (0.0-2.0); RBC 2.41 Mil/uL (4.40-5.90); RED CELL DISTRIBUTION WIDTH 12.8 % (11.5-14.5)
[2019-01-16 08:26] LABS: WHITE BLOOD COUNT 0.3 K/uL (4.8-10.8)
[2019-01-16 08:47] LABS: ALB/GLOB RATIO 0.5 (1.0-2.1); ALBUMIN 1.2 g/dL (3.5-5.0); ALT/SGPT 13 U/L (21-72); AST/SGOT 7 U/L (17-59); BLOOD UREA NITROGEN 18 mg/dL (9-20); CALCIUM 7.8 mg/dl (8.6-10.4); GFR NON-AFRICAN AMERICAN > 60
[2019-01-16] MEDS: Dextrose 5%/0.45% NS 1,000 ML IV SCH (09:45)
[2019-01-16] MEDS: Pantoprazole 40 mg EC Tab PO SCH (09:54)
[2019-01-16] MEDS: Megestrol Acetate 40 mg/ml Cup PO SCH ×2 (09:54→17:31)
--- NOTE | 2019-01-16 11:53 | CP.PCM.PN ---
Subjective - Date & Time of Evaluation Date of Evaluation: 01/16/19 Time of Evaluation: 10:00 - Subjective Subjective: Patient seen and examined at [facility] with daughter in the room. Patient denies any fever, chills, chest pain, abdominal pain, changes in bowel habits or urinary symptoms. SOB has improved from yesterday. Lower Extremity pain has improved from yesterday. Patient would like Colace to no longer be scheduled but as needed. Daughter asked about the plan of care the patient. Objective - Vital Signs/Intake and Output Vital Signs (last 24 hours): Temp Pulse Resp BP Pulse Ox 98 F 81 20 104/58 L 96 01/16/19 08:00 01/16/19 08:00 01/16/19 08:00 01/16/19 10:03 01/16/19 08:00 Intake and Output: 01/16/19 01/16/19 06:59 18:59 Intake Total 470 Output Total 2 Balance 468 - Medications Medications: Current Medications Acetaminophen (Tylenol 325mg Tab) 650 mg PO Q6 PRN PRN Reason: Pain, moderate (4-7) Last Admin: 01/11/19 19:32 Dose: 650 mg Acetaminophen (Tylenol 325mg Tab) 650 mg PO ONCE PRN PRN Reason: pre med Last Admin: 01/15/19 19:40 Dose: 650 mg Diphenhydramine HCl (Benadryl) 25 mg IVP ONCE PRN PRN Reason: PRIOR TO TRANSFUSION Last Admin: 01/15/19 19:40 Dose: 25 mg Diphenhydramine HCl (Benadryl) 25 mg PO ONCE PRN PRN Reason: pre med Last Admin: 01/03/19 14:39 Dose: 25 mg Docusate Sodium (Colace) 100 mg PO BID PRN PRN Reason: Constipation Furosemide (Lasix) 20 mg PO DAILY [facility] Last Admin: 01/16/19 10:03 Dose: 20 mg Furosemide (Lasix) 20 mg IVP ONCE PRN PRN Reason: post transfusion Last Admin: 01/15/19 22:49 Dose: 20 mg Guaifenesin (Robitussin) 200 mg PO Q4H PRN PRN Reason: Cough and congestion Meropenem 1 gm/ Sodium (Chloride) 100 mls @ 100 mls/hr IVPB Q8H [facility]; Protocol Last Admin: 01/16/19 09:55 Dose: 100 mls/hr Micafungin Sodium 100 mg/ (Sodium Chloride) 100 mls @ 100 mls/hr IV Q24H [facility]; Protocol Last Admin: 01/15/19 23:46 Dose: 100 mls/hr Dextrose/Sodium Chloride (Dextrose 5%/0.45% Ns 1000 Ml) 1,000 mls @ 100 mls/hr IV .Q10H [facility] Last Admin: 01/16/19 09:45 Dose: Not Given Vancomycin HCl 750 mg/ Sodium (Chloride) 250 mls @ 166.667 mls/hr IVPB Q24H [facility]; Protocol Last Admin: 01/16/19 06:41 Dose: 166.667 mls/hr Lisinopril (Zestril) 5 mg PO DAILY [facility] Last Admin: 01/16/19 10:03 Dose: 5 mg Megestrol Acetate (Megace) 400 mg PO BID [facility] Last Admin: 01/16/19 09:54 Dose: 400 mg Morphine Sulfate (Morphine) 1 mg IV Q4H PRN PRN Reason: Pain, severe (8-10) Last Admin: 01/15/19 11:32 Dose: 1 mg Ondansetron HCl (Zofran Inj) 4 mg IVP Q6H PRN PRN Reason: Nausea/Vomiting Pantoprazole Sodium (Protonix Ec Tab) 40 mg PO DAILY [facility] Last Admin: 01/16/19 09:54 Dose: 40 mg Promethazine HCl (Phenergan Syrup) 6.25 mg PO Q6 PRN PRN Reason: Cough Last Admin: 01/12/19 17:49 Dose: 6.25 mg Saliva Substitute (First Magic Mouthwash) 5 ml PO Q6 [facility] Last Admin: 01/16/19 05:17 Dose: 5 ml Scopolamine (Transderm-Scop) 1 patch TD Q3D [facility] Last Admin: 01/14/19 10:22 Dose: 1 patch Tamsulosin HCl (Flomax) 0.4 mg PO BID [facility] Last Admin: 01/16/19 09:54 Dose: 0.4 mg - Labs Labs: 01/16/19 08:13 01/16/19 08:13 PT 15.8 SECONDS (9.7-12.2) H 12/29/18 06:30 INR 1.4 12/29/18 06:30 APTT 23 SECONDS (21-34) 12/29/18 06:30 - Additional Findings Additional findings: - Constitutional Appears: Cachectic, Chronically Ill - Head Exam Head Exam: ATRAUMATIC, NORMOCEPHALIC - Eye Exam Eye Exam: Normal appearance Pupil Exam: NORMAL ACCOMODATION - ENT Exam ENT Exam: Mucous Membranes Dry - Respiratory Exam Respiratory Exam: Decreased Breath Sounds, NORMAL BREATHING PATTERN. absent: Rales, Rhonchi, Respiratory Distress - Cardiovascular Exam Cardiovascular Exam: REGULAR RHYTHM, +S1, +S2. absent: Gallop, Rubs, Murmur - GI/Abdominal Exam GI & Abdominal Exam: Soft, Normal Bowel Sounds. absent: Distended, Tenderness - Extremities Exam Extremities Exam: Pedal Edema (Improved from yesterday), Upper Extremity Edema (improved from yesterday) - Neurological Exam Neurological Exam: Alert, Awake, Oriented x3 - Psychiatric Exam Psychiatric exam: Restricted Affect, Normal Mood - Skin Skin Exam: Normal Color Assessment and Plan - Assessment and Plan (Free Text) Assessment: 78 year old male with history of COPD, AML on chemo, BPH, HTN who presents for shortness of breath. Admitted for pleural effusions. Pt is DNR/DNI, consider hospice. Plan: Oncologist Dr. Bobby consulted, help appreciated Received 3rd dose of Decitabine 12/24/18 HgB 7.6 today s/p 1 unit yesterday Platelets 24 today 1u PRBC transfusion - 01/15/19 2u PRBC transfusion- 01/11/19 2u PRBC transfusion- 01/08/19 1u PRBC transfusion- 01/03/19 2u platelets transfusion- 01/02/19 2u PRBCs and 2u platelets transfusion received- 12/30/18 Neutropenic precautions Zofran 4mg Q6 PRN Transfuse PRN Healthcare Associated Pneumonia, with left sided Infiltrates Right sided Pleural effusion Cough Labor Relations Representative Dr. Thurston consulted, help appreciated CXR 01/11: interval decrease R pleural effusion. L pleural effusion is similar, in part loculated. contiguous left consolidation atelectasis and bronchiectasis. appearance is similar. bibasilar coaslexcent airspace opacities. coalescent patch infiltrate with or without concomitant pulmonary edema. biapical blebs bulla with parenchymal lung scarring similar. CT chest: No CTA evidence for acute pulmonary embolism.Dense consolidation with air bronchogram in the left upper and lower lobes. Moderate right and small left pleural effusions. Multiple variable-sized parenchymal and subpleural nodules in the right lung, the largest in the right middle lobe measures 1.7 x 1.3 cm. These are nonspecific and could be infectious, inflammatory or neoplastic in etiology. Short-term interval follow-up is advised. Enlarged precarinal mediastinal lymph nodes, the largest measures 1.3 cm in transverse diameter. Mild cardiomegaly and small pericardial effusion. Saturating well on NC BCx negative to date UA +RBCs, no leuk est or nitrates UCx negative Sputum Cx: Staph. aureus only resistant to PCN ID Dr. Ferrari consulted, help appreciated Vancomycin 750grams IV Daily Merem 500mg IV Q8 started 12/29/18 Micofungin 100mg IV q24h (12/26/18) Negative legionella, strep pneumonia, mycoplasma, quantiferon, beta glucan, flu D-dimer 2156 D51/2NS @100cc/hr Lasix 20mg PO daily Phenergan PO PRN Scopolamine patch Mucinex 600mg PO BID Magic mouthwash Abdominal Pain Abd US: low-attenuation lesion L lobe liver. Liver exhibits increased echotexture secondary to fatty infiltration or hepatocellular disease. splenomegaly. several tiny echogenic foci adherent to gallbladder wall possibly representing polyps. slight increased renal echotexture. Bladder scans PRN Colace PRN for Constipation History of BPH Flomax 0.4mg PO BID History of HTN Lisinopril 5mg PO daily Hold for low blood pressure Poor Nutrition encourage PO intake Flat Breakdown Processor consulted, recs appreciated Low Microbial Diet Ensure Enlive TID B12 842, wnl Megace 400mg PO BID Prophylaxis: Protonix SCDs PT/OT DNR/DNI Dispo: Family discussing hospice options with hospice pharmacy sales representative Case discussed with Dr. Lindsay Greenberg, PGY-2
--- NOTE | 2019-01-16 14:59 | CP.PCM.PN ---
Subjective - Date & Time of Evaluation Date of Evaluation: 01/16/19 Time of Evaluation: 08:00 - Subjective Subjective: afebrile alert IN Nad IV rx renewed Vanco on hold- no MRSA isolated Objective - Vital Signs/Intake and Output Vital Signs (last 24 hours): Temp Pulse Resp BP Pulse Ox 98 F 81 20 104/58 L 96 01/16/19 08:00 01/16/19 08:00 01/16/19 08:00 01/16/19 10:03 01/16/19 08:00 Intake and Output: 01/16/19 01/16/19 06:59 18:59 Intake Total 1390 Output Total 2 Balance 1388 - Medications Medications: Current Medications Acetaminophen (Tylenol 325mg Tab) 650 mg PO Q6 PRN PRN Reason: Pain, moderate (4-7) Last Admin: 01/11/19 19:32 Dose: 650 mg Acetaminophen (Tylenol 325mg Tab) 650 mg PO ONCE PRN PRN Reason: pre med Last Admin: 01/15/19 19:40 Dose: 650 mg Diphenhydramine HCl (Benadryl) 25 mg IVP ONCE PRN PRN Reason: PRIOR TO TRANSFUSION Last Admin: 01/15/19 19:40 Dose: 25 mg Diphenhydramine HCl (Benadryl) 25 mg PO ONCE PRN PRN Reason: pre med Last Admin: 01/03/19 14:39 Dose: 25 mg Docusate Sodium (Colace) 100 mg PO BID PRN PRN Reason: Constipation Furosemide (Lasix) 20 mg PO DAILY [facility] Last Admin: 01/16/19 10:03 Dose: 20 mg Furosemide (Lasix) 20 mg IVP ONCE PRN PRN Reason: post transfusion Last Admin: 01/15/19 22:49 Dose: 20 mg Guaifenesin (Robitussin) 200 mg PO Q4H PRN PRN Reason: Cough and congestion Meropenem 1 gm/ Sodium (Chloride) 100 mls @ 100 mls/hr IVPB Q8H [facility]; Protocol Last Admin: 01/16/19 09:55 Dose: 100 mls/hr Micafungin Sodium 100 mg/ (Sodium Chloride) 100 mls @ 100 mls/hr IV Q24H [facility]; Protocol Last Admin: 01/15/19 23:46 Dose: 100 mls/hr Dextrose/Sodium Chloride (Dextrose 5%/0.45% Ns 1000 Ml) 1,000 mls @ 100 mls/hr IV .Q10H [facility] Last Admin: 01/16/19 09:45 Dose: Not Given Lisinopril (Zestril) 5 mg PO DAILY [facility] Last Admin: 01/16/19 10:03 Dose: 5 mg Megestrol Acetate (Megace) 400 mg PO BID [facility] Last Admin: 01/16/19 09:54 Dose: 400 mg Morphine Sulfate (Morphine) 1 mg IV Q4H PRN PRN Reason: Pain, severe (8-10) Last Admin: 01/15/19 11:32 Dose: 1 mg Ondansetron HCl (Zofran Inj) 4 mg IVP Q6H PRN PRN Reason: Nausea/Vomiting Pantoprazole Sodium (Protonix Ec Tab) 40 mg PO DAILY [facility] Last Admin: 01/16/19 09:54 Dose: 40 mg Promethazine HCl (Phenergan Syrup) 6.25 mg PO Q6 PRN PRN Reason: Cough Last Admin: 01/12/19 17:49 Dose: 6.25 mg Saliva Substitute (First Magic Mouthwash) 5 ml PO Q6 [facility] Last Admin: 01/16/19 13:00 Dose: Not Given Scopolamine (Transderm-Scop) 1 patch TD Q3D [facility] Last Admin: 01/14/19 10:22 Dose: 1 patch Tamsulosin HCl (Flomax) 0.4 mg PO BID [facility] Last Admin: 01/16/19 09:54 Dose: 0.4 mg - Labs Labs: 01/16/19 08:13 01/16/19 08:13 PT 15.8 SECONDS (9.7-12.2) H 12/29/18 06:30 INR 1.4 12/29/18 06:30 APTT 23 SECONDS (21-34) 12/29/18 06:30 - Constitutional Appears: Non-toxic, Cachectic, Chronically Ill - Head Exam Head Exam: ATRAUMATIC, NORMAL INSPECTION, NORMOCEPHALIC - Eye Exam Eye Exam: EOMI, Normal appearance, PERRL Pupil Exam: NORMAL ACCOMODATION, PERRL - ENT Exam ENT Exam: Mucous Membranes Moist, Normal Exam - Neck Exam Neck Exam: Full ROM, Normal Inspection. absent: Lymphadenopathy - Respiratory Exam Respiratory Exam: Clear to Ausculation Bilateral, NORMAL BREATHING PATTERN - Cardiovascular Exam Cardiovascular Exam: REGULAR RHYTHM, +S1, +S2. absent: Murmur - GI/Abdominal Exam GI & Abdominal Exam: Soft, Normal Bowel Sounds. absent: Tenderness - Rectal Exam Rectal Exam: Deferred - Exam Exam: NORMAL INSPECTION - Extremities Exam Extremities Exam: Full ROM, Normal Capillary Refill, Normal Inspection. absent: Joint Swelling, Pedal Edema - Back Exam Back Exam: NORMAL INSPECTION - Neurological Exam Neurological Exam: Alert, Awake, CN II-XII Intact, Normal Gait, Oriented x3 - Psychiatric Exam Psychiatric exam: Normal Affect, Normal Mood - Skin Skin Exam: Dry, Intact, Normal Color, Warm Assessment and Plan (1) Pleural effusion, left Status: Acute (2) Pneumonia Status: Acute (3) Pleural effusion Status: Acute (4) AML (acute myeloblastic leukemia) Status: Chronic (5) Pancytopenia Status: Chronic - Assessment and Plan (Free Text) Assessment: afebrile alert IN Nad IV rx renewed Vanco on hold- no MRSA isolated
--- NOTE | 2019-01-16 17:08 | CP.PCM.PN ---
Subjective - Date & Time of Evaluation Date of Evaluation: 01/16/19 Time of Evaluation: 16:57 - Subjective Subjective: Patient seen and examined at bedside. Patient is doing better today cough improved less shortness of breath and denies chest pain No fever or chills On exam he is awake oriented comfortable and does not appear to be in any distress He states he still experiences cough but it has improved. Afebrile Tmx 98F BP borderline 90-100/55-60 on D5 1/2 NS at 100 cc/H, no signs of fluid overload on exam appetite slightly improved O2 saturation 98-100 on 2L nasal cannula CXR 01/13: Large left upper lobe bulla. Small right upper lobe bulla. Extensive consolidation/edema involving bilateral lung martines with layering pleural effusions. Most recent chest x-ray consistent with mild pulmonary edema and pleural effusion (R>L) but the patient looks fine with no sign of fluid overload on exam for now we will discontinue the IV fluids tghat is running at 100 cc/H, continue patient on PO Lasix 20 mg daily, we will repeat chest x-ray tomorrow morning Possible consideration for pigtail versus Thoracoocentesis drainage if there is persistent pleural effusion Objective - Vital Signs/Intake and Output Vital Signs (last 24 hours): Temp Pulse Resp BP Pulse Ox 97.7 F 97 H 20 90/55 L 99 01/16/19 15:47 01/16/19 15:47 01/16/19 15:47 01/16/19 15:47 01/16/19 15:47 Intake and Output: 01/16/19 01/16/19 06:59 18:59 Intake Total 1390 Output Total 2 Balance 1388 - Medications Medications: Current Medications Acetaminophen (Tylenol 325mg Tab) 650 mg PO Q6 PRN PRN Reason: Pain, moderate (4-7) Last Admin: 01/11/19 19:32 Dose: 650 mg Acetaminophen (Tylenol 325mg Tab) 650 mg PO ONCE PRN PRN Reason: pre med Last Admin: 01/15/19 19:40 Dose: 650 mg Diphenhydramine HCl (Benadryl) 25 mg IVP ONCE PRN PRN Reason: PRIOR TO TRANSFUSION Last Admin: 01/15/19 19:40 Dose: 25 mg Diphenhydramine HCl (Benadryl) 25 mg PO ONCE PRN PRN Reason: pre med Last Admin: 01/03/19 14:39 Dose: 25 mg Docusate Sodium (Colace) 100 mg PO BID PRN PRN Reason: Constipation Furosemide (Lasix) 20 mg PO DAILY [facility] Last Admin: 01/16/19 10:03 Dose: 20 mg Furosemide (Lasix) 20 mg IVP ONCE PRN PRN Reason: post transfusion Last Admin: 01/15/19 22:49 Dose: 20 mg Guaifenesin (Robitussin) 200 mg PO Q4H PRN PRN Reason: Cough and congestion Meropenem 1 gm/ Sodium (Chloride) 100 mls @ 100 mls/hr IVPB Q8H [facility]; Protocol Last Admin: 01/16/19 09:55 Dose: 100 mls/hr Micafungin Sodium 100 mg/ (Sodium Chloride) 100 mls @ 100 mls/hr IV Q24H [facility]; Protocol Last Admin: 01/15/19 23:46 Dose: 100 mls/hr Dextrose/Sodium Chloride (Dextrose 5%/0.45% Ns 1000 Ml) 1,000 mls @ 100 mls/hr IV .Q10H [facility] Last Admin: 01/16/19 09:45 Dose: Not Given Lisinopril (Zestril) 5 mg PO DAILY [facility] Last Admin: 01/16/19 10:03 Dose: 5 mg Megestrol Acetate (Megace) 400 mg PO BID [facility] Last Admin: 01/16/19 09:54 Dose: 400 mg Ondansetron HCl (Zofran Inj) 4 mg IVP Q6H PRN PRN Reason: Nausea/Vomiting Pantoprazole Sodium (Protonix Ec Tab) 40 mg PO DAILY [facility] Last Admin: 01/16/19 09:54 Dose: 40 mg Promethazine HCl (Phenergan Syrup) 6.25 mg PO Q6 PRN PRN Reason: Cough Last Admin: 01/12/19 17:49 Dose: 6.25 mg Saliva Substitute (First Magic Mouthwash) 5 ml PO Q6 [facility] Last Admin: 01/16/19 13:00 Dose: Not Given Scopolamine (Transderm-Scop) 1 patch TD Q3D [facility] Last Admin: 01/14/19 10:22 Dose: 1 patch Tamsulosin HCl (Flomax) 0.4 mg PO BID [facility] Last Admin: 01/16/19 09:54 Dose: 0.4 mg - Labs Labs: 01/16/19 08:13 01/16/19 08:13 PT 15.8 SECONDS (9.7-12.2) H 12/29/18 06:30 INR 1.4 12/29/18 06:30 APTT 23 SECONDS (21-34) 12/29/18 06:30 - Constitutional Appears: Well, Non-toxic - Head Exam Head Exam: ATRAUMATIC, NORMAL INSPECTION - Eye Exam Eye Exam: EOMI, Normal appearance Pupil Exam: NORMAL ACCOMODATION - ENT Exam ENT Exam: Mucous Membranes Moist, Normal Exam - Neck Exam Neck Exam: Normal Inspection - Respiratory Exam Respiratory Exam: Decreased Breath Sounds, Rhonchi. absent: Accessory Muscle Use, Chest Wall Tenderness, Rales, Wheezes - Cardiovascular Exam Cardiovascular Exam: REGULAR RHYTHM, RRR, +S1, +S2. absent: Bradycardia, Tachycardia, JVD - GI/Abdominal Exam GI & Abdominal Exam: Distended, Soft, Normal Bowel Sounds. absent: Firm, Guarding, Rigid, Tenderness - Extremities Exam Extremities Exam: Full ROM, Normal Capillary Refill, Normal Inspection. absent: Joint Swelling, Pedal Edema - Back Exam Back Exam: absent: CVA tenderness (L), CVA tenderness (R) - Neurological Exam Neurological Exam: Alert, Awake Assessment and Plan (1) Pancytopenia Status: Acute (2) Pleural effusion, left Status: Acute (3) Pneumonia Status: Acute (4) Lung mass Status: Acute (5) Pneumothorax Status: Acute - Assessment and Plan (Free Text) Assessment: Pneumonia, Clinically improving Pleural effusion, Bilateral - Continue antibiotics - Continue nebulizer treatment - Discontinue IV fluids - Continue p.o. diuresis with Lasix 20 mg daily - Strict I's and O's - Follow-up repeat CXR on Thursday - Possible need for drainage of the Pleural effusion - Supplemental Oxygen to keep sat>94%
[2019-01-16] MEDS: guaiFENesin 200 mg/10 ml Syrup UD PO PRN (17:36)
--- NOTE | 2019-01-16 23:40 | CP.PCM.PN ---
Subjective - Date & Time of Evaluation Date of Evaluation: 01/13/19 Time of Evaluation: 13:00 - Subjective Subjective: Fatigued, eating more Objective - Vital Signs/Intake and Output Vital Signs (last 24 hours): Temp Pulse Resp BP Pulse Ox 97.7 F 97 H 20 90/55 L 99 01/16/19 15:47 01/16/19 15:47 01/16/19 15:47 01/16/19 15:47 01/16/19 15:47 Intake and Output: 01/16/19 01/17/19 18:59 06:59 Intake Total 1390 300 Output Total 2 Balance 1388 300 - Medications Medications: Current Medications Acetaminophen (Tylenol 325mg Tab) 650 mg PO Q6 PRN PRN Reason: Pain, moderate (4-7) Last Admin: 01/11/19 19:32 Dose: 650 mg Acetaminophen (Tylenol 325mg Tab) 650 mg PO ONCE PRN PRN Reason: pre med Last Admin: 01/15/19 19:40 Dose: 650 mg Diphenhydramine HCl (Benadryl) 25 mg IVP ONCE PRN PRN Reason: PRIOR TO TRANSFUSION Last Admin: 01/15/19 19:40 Dose: 25 mg Diphenhydramine HCl (Benadryl) 25 mg PO ONCE PRN PRN Reason: pre med Last Admin: 01/03/19 14:39 Dose: 25 mg Docusate Sodium (Colace) 100 mg PO BID PRN PRN Reason: Constipation Last Admin: 01/16/19 17:31 Dose: 100 mg Furosemide (Lasix) 20 mg PO DAILY [facility] Last Admin: 01/16/19 10:03 Dose: 20 mg Furosemide (Lasix) 20 mg IVP ONCE PRN PRN Reason: post transfusion Last Admin: 01/15/19 22:49 Dose: 20 mg Guaifenesin (Robitussin) 200 mg PO Q4H PRN PRN Reason: Cough and congestion Last Admin: 01/16/19 17:36 Dose: 200 mg Meropenem 1 gm/ Sodium (Chloride) 100 mls @ 100 mls/hr IVPB Q8H [facility]; Protocol Last Admin: 01/16/19 17:30 Dose: 100 mls/hr Micafungin Sodium 100 mg/ (Sodium Chloride) 100 mls @ 100 mls/hr IV Q24H [facility]; Protocol Last Admin: 01/15/19 23:46 Dose: 100 mls/hr Lisinopril (Zestril) 5 mg PO DAILY [facility] Last Admin: 01/16/19 10:03 Dose: 5 mg Megestrol Acetate (Megace) 400 mg PO BID [facility] Last Admin: 01/16/19 17:31 Dose: 400 mg Ondansetron HCl (Zofran Inj) 4 mg IVP Q6H PRN PRN Reason: Nausea/Vomiting Pantoprazole Sodium (Protonix Ec Tab) 40 mg PO DAILY [facility] Last Admin: 01/16/19 09:54 Dose: 40 mg Promethazine HCl (Phenergan Syrup) 6.25 mg PO Q6 PRN PRN Reason: Cough Last Admin: 01/12/19 17:49 Dose: 6.25 mg Saliva Substitute (First Magic Mouthwash) 5 ml PO Q6 [facility] Last Admin: 01/16/19 17:32 Dose: 5 ml Scopolamine (Transderm-Scop) 1 patch TD Q3D [facility] Last Admin: 01/14/19 10:22 Dose: 1 patch Tamsulosin HCl (Flomax) 0.4 mg PO BID [facility] Last Admin: 01/16/19 17:31 Dose: 0.4 mg - Labs Labs: 01/16/19 08:13 01/16/19 08:13 PT 15.8 SECONDS (9.7-12.2) H 12/29/18 06:30 INR 1.4 12/29/18 06:30 APTT 23 SECONDS (21-34) 12/29/18 06:30 - Head Exam Head Exam: ATRAUMATIC - Eye Exam Eye Exam: Normal appearance - ENT Exam ENT Exam: Mucous Membranes Dry - Respiratory Exam Respiratory Exam: NORMAL BREATHING PATTERN - Cardiovascular Exam Cardiovascular Exam: +S1, +S2 - GI/Abdominal Exam GI & Abdominal Exam: Normal Bowel Sounds Assessment and Plan (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
--- NOTE | 2019-01-16 23:41 | CP.PCM.PN ---
Subjective - Date & Time of Evaluation Date of Evaluation: 01/14/19 Time of Evaluation: 17:00 - Subjective Subjective: Feels weak Objective - Vital Signs/Intake and Output Vital Signs (last 24 hours): Temp Pulse Resp BP Pulse Ox 97.7 F 97 H 20 90/55 L 99 01/16/19 15:47 01/16/19 15:47 01/16/19 15:47 01/16/19 15:47 01/16/19 15:47 Intake and Output: 01/16/19 01/17/19 18:59 06:59 Intake Total 1390 300 Output Total 2 Balance 1388 300 - Medications Medications: Current Medications Acetaminophen (Tylenol 325mg Tab) 650 mg PO Q6 PRN PRN Reason: Pain, moderate (4-7) Last Admin: 01/11/19 19:32 Dose: 650 mg Acetaminophen (Tylenol 325mg Tab) 650 mg PO ONCE PRN PRN Reason: pre med Last Admin: 01/15/19 19:40 Dose: 650 mg Diphenhydramine HCl (Benadryl) 25 mg IVP ONCE PRN PRN Reason: PRIOR TO TRANSFUSION Last Admin: 01/15/19 19:40 Dose: 25 mg Diphenhydramine HCl (Benadryl) 25 mg PO ONCE PRN PRN Reason: pre med Last Admin: 01/03/19 14:39 Dose: 25 mg Docusate Sodium (Colace) 100 mg PO BID PRN PRN Reason: Constipation Last Admin: 01/16/19 17:31 Dose: 100 mg Furosemide (Lasix) 20 mg PO DAILY [facility] Last Admin: 01/16/19 10:03 Dose: 20 mg Furosemide (Lasix) 20 mg IVP ONCE PRN PRN Reason: post transfusion Last Admin: 01/15/19 22:49 Dose: 20 mg Guaifenesin (Robitussin) 200 mg PO Q4H PRN PRN Reason: Cough and congestion Last Admin: 01/16/19 17:36 Dose: 200 mg Meropenem 1 gm/ Sodium (Chloride) 100 mls @ 100 mls/hr IVPB Q8H [facility]; Protocol Last Admin: 01/16/19 17:30 Dose: 100 mls/hr Micafungin Sodium 100 mg/ (Sodium Chloride) 100 mls @ 100 mls/hr IV Q24H [facility]; Protocol Last Admin: 01/15/19 23:46 Dose: 100 mls/hr Lisinopril (Zestril) 5 mg PO DAILY [facility] Last Admin: 01/16/19 10:03 Dose: 5 mg Megestrol Acetate (Megace) 400 mg PO BID [facility] Last Admin: 01/16/19 17:31 Dose: 400 mg Ondansetron HCl (Zofran Inj) 4 mg IVP Q6H PRN PRN Reason: Nausea/Vomiting Pantoprazole Sodium (Protonix Ec Tab) 40 mg PO DAILY [facility] Last Admin: 01/16/19 09:54 Dose: 40 mg Promethazine HCl (Phenergan Syrup) 6.25 mg PO Q6 PRN PRN Reason: Cough Last Admin: 01/12/19 17:49 Dose: 6.25 mg Saliva Substitute (First Magic Mouthwash) 5 ml PO Q6 [facility] Last Admin: 01/16/19 17:32 Dose: 5 ml Scopolamine (Transderm-Scop) 1 patch TD Q3D [facility] Last Admin: 01/14/19 10:22 Dose: 1 patch Tamsulosin HCl (Flomax) 0.4 mg PO BID [facility] Last Admin: 01/16/19 17:31 Dose: 0.4 mg - Labs Labs: 01/16/19 08:13 01/16/19 08:13 PT 15.8 SECONDS (9.7-12.2) H 12/29/18 06:30 INR 1.4 12/29/18 06:30 APTT 23 SECONDS (21-34) 12/29/18 06:30 - Head Exam Head Exam: ATRAUMATIC - Eye Exam Eye Exam: Normal appearance - ENT Exam ENT Exam: Mucous Membranes Dry - Respiratory Exam Respiratory Exam: NORMAL BREATHING PATTERN - Cardiovascular Exam Cardiovascular Exam: +S1, +S2 - GI/Abdominal Exam GI & Abdominal Exam: Normal Bowel Sounds Assessment and Plan (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
--- NOTE | 2019-01-16 23:42 | CP.PCM.PN ---
Subjective - Date & Time of Evaluation Date of Evaluation: 01/15/19 Time of Evaluation: 15:00 - Subjective Subjective: Feels weak. Objective - Vital Signs/Intake and Output Vital Signs (last 24 hours): Temp Pulse Resp BP Pulse Ox 97.7 F 97 H 20 90/55 L 99 01/16/19 15:47 01/16/19 15:47 01/16/19 15:47 01/16/19 15:47 01/16/19 15:47 Intake and Output: 01/16/19 01/17/19 18:59 06:59 Intake Total 1390 300 Output Total 2 Balance 1388 300 - Medications Medications: Current Medications Acetaminophen (Tylenol 325mg Tab) 650 mg PO Q6 PRN PRN Reason: Pain, moderate (4-7) Last Admin: 01/11/19 19:32 Dose: 650 mg Acetaminophen (Tylenol 325mg Tab) 650 mg PO ONCE PRN PRN Reason: pre med Last Admin: 01/15/19 19:40 Dose: 650 mg Diphenhydramine HCl (Benadryl) 25 mg IVP ONCE PRN PRN Reason: PRIOR TO TRANSFUSION Last Admin: 01/15/19 19:40 Dose: 25 mg Diphenhydramine HCl (Benadryl) 25 mg PO ONCE PRN PRN Reason: pre med Last Admin: 01/03/19 14:39 Dose: 25 mg Docusate Sodium (Colace) 100 mg PO BID PRN PRN Reason: Constipation Last Admin: 01/16/19 17:31 Dose: 100 mg Furosemide (Lasix) 20 mg PO DAILY [facility] Last Admin: 01/16/19 10:03 Dose: 20 mg Furosemide (Lasix) 20 mg IVP ONCE PRN PRN Reason: post transfusion Last Admin: 01/15/19 22:49 Dose: 20 mg Guaifenesin (Robitussin) 200 mg PO Q4H PRN PRN Reason: Cough and congestion Last Admin: 01/16/19 17:36 Dose: 200 mg Meropenem 1 gm/ Sodium (Chloride) 100 mls @ 100 mls/hr IVPB Q8H [facility]; Protocol Last Admin: 01/16/19 17:30 Dose: 100 mls/hr Micafungin Sodium 100 mg/ (Sodium Chloride) 100 mls @ 100 mls/hr IV Q24H [facility]; Protocol Last Admin: 01/15/19 23:46 Dose: 100 mls/hr Lisinopril (Zestril) 5 mg PO DAILY [facility] Last Admin: 01/16/19 10:03 Dose: 5 mg Megestrol Acetate (Megace) 400 mg PO BID [facility] Last Admin: 01/16/19 17:31 Dose: 400 mg Ondansetron HCl (Zofran Inj) 4 mg IVP Q6H PRN PRN Reason: Nausea/Vomiting Pantoprazole Sodium (Protonix Ec Tab) 40 mg PO DAILY [facility] Last Admin: 01/16/19 09:54 Dose: 40 mg Promethazine HCl (Phenergan Syrup) 6.25 mg PO Q6 PRN PRN Reason: Cough Last Admin: 01/12/19 17:49 Dose: 6.25 mg Saliva Substitute (First Magic Mouthwash) 5 ml PO Q6 [facility] Last Admin: 01/16/19 17:32 Dose: 5 ml Scopolamine (Transderm-Scop) 1 patch TD Q3D [facility] Last Admin: 01/14/19 10:22 Dose: 1 patch Tamsulosin HCl (Flomax) 0.4 mg PO BID [facility] Last Admin: 01/16/19 17:31 Dose: 0.4 mg - Labs Labs: 01/16/19 08:13 01/16/19 08:13 PT 15.8 SECONDS (9.7-12.2) H 12/29/18 06:30 INR 1.4 12/29/18 06:30 APTT 23 SECONDS (21-34) 12/29/18 06:30 - Head Exam Head Exam: ATRAUMATIC - Eye Exam Eye Exam: Normal appearance - ENT Exam ENT Exam: Mucous Membranes Dry - Respiratory Exam Respiratory Exam: NORMAL BREATHING PATTERN - Cardiovascular Exam Cardiovascular Exam: +S1, +S2 - GI/Abdominal Exam GI & Abdominal Exam: Normal Bowel Sounds Assessment and Plan (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
[2019-01-17] MEDS: Micafungin 100 MG in Sodium Chloride 0.9% 100 ML IV SCH ×2 (00:15→23:48)
[2019-01-17] MEDS: Mag&Al/Simet/Diphen/Lido 237 ML KIT PO SCH ×6 (00:16→23:48)
[2019-01-17] MEDS: guaiFENesin 200 mg/10 ml Syrup UD PO PRN ×2 (00:24→11:44)
[2019-01-17] MEDS: Meropenem 1 GM in Sodium Chloride 0.9% 100 ML IVPB SCH ×3 (01:27→17:11)
--- NOTE | 2019-01-17 07:32 | CP.PCM.PN ---
Subjective - Date & Time of Evaluation Date of Evaluation: 01/17/19 Time of Evaluation: 09:50 - Subjective Subjective: Patient examined at bedside with family in room. Patient reports he would like to have the line taken out from his left neck as a new one was just inserted. Patient's family reports worsening cough, and slight improvement in LE edema. Patient in somnolent and denies complaint. Objective - Vital Signs/Intake and Output Vital Signs (last 24 hours): Temp Pulse Resp BP Pulse Ox 97.4 F L 98 H 20 97/56 L 98 01/17/19 00:14 01/17/19 00:14 01/17/19 00:14 01/17/19 00:14 01/17/19 00:14 Intake and Output: 01/17/19 01/17/19 06:59 18:59 Intake Total 300 400 Balance 300 400 - Medications Medications: Current Medications Acetaminophen (Tylenol 325mg Tab) 650 mg PO Q6 PRN PRN Reason: Pain, moderate (4-7) Last Admin: 01/11/19 19:32 Dose: 650 mg Acetaminophen (Tylenol 325mg Tab) 650 mg PO ONCE PRN PRN Reason: pre med Last Admin: 01/15/19 19:40 Dose: 650 mg Diphenhydramine HCl (Benadryl) 25 mg IVP ONCE PRN PRN Reason: PRIOR TO TRANSFUSION Last Admin: 01/15/19 19:40 Dose: 25 mg Diphenhydramine HCl (Benadryl) 25 mg PO ONCE PRN PRN Reason: pre med Last Admin: 01/03/19 14:39 Dose: 25 mg Docusate Sodium (Colace) 100 mg PO BID PRN PRN Reason: Constipation Last Admin: 01/16/19 17:31 Dose: 100 mg Furosemide (Lasix) 20 mg PO DAILY [facility] Last Admin: 01/16/19 10:03 Dose: 20 mg Furosemide (Lasix) 20 mg IVP ONCE PRN PRN Reason: post transfusion Last Admin: 01/15/19 22:49 Dose: 20 mg Guaifenesin (Robitussin) 200 mg PO Q4H PRN PRN Reason: Cough and congestion Last Admin: 01/17/19 00:24 Dose: 200 mg Meropenem 1 gm/ Sodium (Chloride) 100 mls @ 100 mls/hr IVPB Q8H [facility]; Protocol Last Admin: 01/17/19 01:27 Dose: 100 mls/hr Micafungin Sodium 100 mg/ (Sodium Chloride) 100 mls @ 100 mls/hr IV Q24H [facility]; Protocol Last Admin: 01/17/19 00:15 Dose: 100 mls/hr Lisinopril (Zestril) 5 mg PO DAILY [facility] Last Admin: 01/16/19 10:03 Dose: 5 mg Megestrol Acetate (Megace) 400 mg PO BID [facility] Last Admin: 01/16/19 17:31 Dose: 400 mg Ondansetron HCl (Zofran Inj) 4 mg IVP Q6H PRN PRN Reason: Nausea/Vomiting Pantoprazole Sodium (Protonix Ec Tab) 40 mg PO DAILY [facility] Last Admin: 01/16/19 09:54 Dose: 40 mg Promethazine HCl (Phenergan Syrup) 6.25 mg PO Q6 PRN PRN Reason: Cough Last Admin: 01/12/19 17:49 Dose: 6.25 mg Saliva Substitute (First Magic Mouthwash) 5 ml PO Q6 [facility] Last Admin: 01/17/19 00:16 Dose: 5 ml Scopolamine (Transderm-Scop) 1 patch TD Q3D [facility] Last Admin: 01/14/19 10:22 Dose: 1 patch Tamsulosin HCl (Flomax) 0.4 mg PO BID [facility] Last Admin: 01/16/19 17:31 Dose: 0.4 mg - Labs Labs: 01/16/19 08:13 01/16/19 08:13 PT 15.8 SECONDS (9.7-12.2) H 12/29/18 06:30 INR 1.4 12/29/18 06:30 APTT 23 SECONDS (21-34) 12/29/18 06:30 - Constitutional Appears: Non-toxic, No Acute Distress, Chronically Ill - Head Exam Head Exam: ATRAUMATIC, NORMAL INSPECTION, NORMOCEPHALIC - Eye Exam Eye Exam: EOMI, Normal appearance - ENT Exam ENT Exam: Mucous Membranes Moist, Normal Exam - Neck Exam Neck Exam: Normal Inspection - Respiratory Exam Respiratory Exam: Decreased Breath Sounds, Rales, NORMAL BREATHING PATTERN - Cardiovascular Exam Cardiovascular Exam: REGULAR RHYTHM, +S1, +S2. absent: Tachycardia - GI/Abdominal Exam GI & Abdominal Exam: Soft, Normal Bowel Sounds. absent: Distended, Tenderness - Exam Exam: Scrotal Swelling - Extremities Exam Extremities Exam: Pedal Edema (2+). absent: Calf Tenderness, Normal Inspection Additional comments: Upper extremity 2+ edema - Neurological Exam Neurological Exam: Alert - Psychiatric Exam Psychiatric exam: Flat Affect - Skin Skin Exam: Dry, Intact, Pallor, Warm Assessment and Plan - Assessment and Plan (Free Text) Plan: AML Oncologist Dr. Bobby consulted, help appreciated Received 3rd dose of Decitabine 12/24/18 HgB 7.6 today s/p 1 unit yesterday Platelets 24 today 1u PRBC transfusion - 01/15/19 2u PRBC transfusion- 01/11/19 2u PRBC transfusion- 01/08/19 1u PRBC transfusion- 01/03/19 2u platelets transfusion- 01/02/19 2u PRBCs and 2u platelets transfusion received- 12/30/18 Neutropenic precautions Zofran 4mg Q6 PRN Transfuse PRN Healthcare Associated Pneumonia, with left sided Infiltrates Right sided Pleural effusion Cough Supervisor Cab Dr. Thurston consulted, help appreciated CXR 01/17: no interval change from prior imaging CXR 01/13: Large left upper lobe bulla. Small right upper lobe bulla. Extensive consolidation/edema involving b/l lung martines with layering pleural effusions. CT chest: No CTA evidence for acute pulmonary embolism.Dense consolidation with air bronchogram in the left upper and lower lobes. Moderate right and small left pleural effusions. Multiple variable-sized parenchymal and subpleural nodules in the right lung, the largest in the right middle lobe measures 1.7 x 1.3 cm. These are nonspecific and could be infectious, inflammatory or neoplastic in etiology. Short-term interval follow-up is advised. Enlarged precarinal mediastinal lymph nodes, the largest measures 1.3 cm in transverse diameter. Mild cardiomegaly and small pericardial effusion. Saturating well on NC Sputum Cx: Staph. aureus only resistant to PCN Negative legionella, strep pneumonia, mycoplasma, quantiferon, beta glucan, flu ID Dr. Ferrari consulted, help appreciated Vancomycin stopped per ID Merem 1g q8h Micofungin 100mg IV q24h (12/26/18) Duonebs q4 prn Lasix 20mg PO daily Robitussin 200mg q4h Phenergan 6.25mg po q6 prn Scopolamine patch Mucinex 600mg PO BID Magic mouthwash Abdominal Pain Abd US: low-attenuation lesion L lobe liver. Liver exhibits increased echotexture secondary to fatty infiltration or hepatocellular disease. splenomegaly. several tiny echogenic foci adherent to gallbladder wall possibly representing polyps. slight increased renal echotexture. Bladder scans PRN Colace PRN for Constipation Zofran prn History of BPH Flomax 0.4mg PO BID History of HTN Lisinopril 5mg PO daily Holding parameters Poor Nutrition encourage PO intake Aircraft Dispatcher consulted, recs appreciated Low Microbial Diet Ensure Enlive TID B12 [id number], wnl Megace 400mg PO BID Prophylaxis: Protonix SCDs PT/OT DNR/DNI PICC inserted right arm, left EJ midline pulled Discussed with Dr. Lindsay Amato, PGY-1
[2019-01-17 07:41] LABS: HEMOGLOBIN 8.5 g/dL (12.0-18.0); LYMPH # 0.3 K/uL (1.0-4.3); LYMPH % 92.3 % (20.0-40.0); MEAN CELL VOLUME 93.4 fL (80.0-94.0); MEAN CORPUSCULAR HEMOGLOBIN 30.7 pg (27.0-31.0); MEAN CORPUSCULAR HGB CONC 32.8 g/dL (33.0-37.0); MEAN PLATELET VOLUME 8.6 fL (7.2-11.7); MONO % 5.8 % (0.0-10.0); NEUT % 1.9 % (50.0-75.0); NRBC % 1.6 % (0.0-2.0); RBC 2.77 Mil/uL (4.40-5.90); RED CELL DISTRIBUTION WIDTH 12.7 % (11.5-14.5)
[2019-01-17 07:55] LABS: WHITE BLOOD COUNT 0.4 K/uL (4.8-10.8)
[2019-01-17 08:01] LABS: ALB/GLOB RATIO 0.6 (1.0-2.1); ALBUMIN 1.5 g/dL (3.5-5.0); ALT/SGPT 22 U/L (21-72); AST/SGOT 13 U/L (17-59); BLOOD UREA NITROGEN 18 mg/dL (9-20); CALCIUM 7.8 mg/dl (8.6-10.4); GFR NON-AFRICAN AMERICAN > 60
--- NOTE | 2019-01-17 09:34 | RAD ---
Chest x-ray single frontal view HISTORY: Pleural effusion. COMPARISON: 01/13/2019 FINDINGS: Persistent moderate to large loculated left pleural effusion. Small right pleural effusion. Dense ill-defined consolidative opacification seen throughout the left lung including the left mid to lower lung zone. Bilateral hilar prominence. Scattered nodular densities in both lung martines. Patchy airspace opacification in the mid to lower lung zones bilaterally. Biapical pleural thickening with dense scarring and opacification. Cardiomegaly. Atherosclerotic calcification at the aortic knob. Degenerative changes in the spine and shoulders. IMPRESSION: No significant interval change.
[2019-01-17] MEDS: Megestrol Acetate 40 mg/ml Cup PO SCH ×2 (09:41→17:10)
[2019-01-17] MEDS: Pantoprazole 40 mg EC Tab PO SCH (09:41)
[2019-01-17] MEDS ORDERED: Albuterol-Ipratrop 3 mg / 0.5 (3 ml) UD INH PRN (10:01)
--- NOTE | 2019-01-17 10:44 | CP.PCM.PN ---
Subjective - Date & Time of Evaluation Date of Evaluation: 01/17/19 Time of Evaluation: 07:00 - Subjective Subjective: afeb off VANCO Objective - Vital Signs/Intake and Output Vital Signs (last 24 hours): Temp Pulse Resp BP Pulse Ox 97.5 F L 89 20 87/50 L 99 01/17/19 08:00 01/17/19 08:00 01/17/19 08:00 01/17/19 10:16 01/17/19 08:00 Intake and Output: 01/17/19 01/17/19 06:59 18:59 Intake Total 300 400 Balance 300 400 - Medications Medications: Current Medications Acetaminophen (Tylenol 325mg Tab) 650 mg PO Q6 PRN PRN Reason: Pain, moderate (4-7) Last Admin: 01/11/19 19:32 Dose: 650 mg Acetaminophen (Tylenol 325mg Tab) 650 mg PO ONCE PRN PRN Reason: pre med Last Admin: 01/15/19 19:40 Dose: 650 mg Albuterol/Ipratropium (Duoneb 3 Mg/0.5 Mg (3 Ml) Ud) 3 ml INH RQ4 PRN PRN Reason: Shortness of Breath Diphenhydramine HCl (Benadryl) 25 mg IVP ONCE PRN PRN Reason: PRIOR TO TRANSFUSION Last Admin: 01/15/19 19:40 Dose: 25 mg Diphenhydramine HCl (Benadryl) 25 mg PO ONCE PRN PRN Reason: pre med Last Admin: 01/03/19 14:39 Dose: 25 mg Docusate Sodium (Colace) 100 mg PO BID PRN PRN Reason: Constipation Last Admin: 01/16/19 17:31 Dose: 100 mg Furosemide (Lasix) 20 mg PO DAILY [facility] Last Admin: 01/17/19 10:16 Dose: Not Given Furosemide (Lasix) 20 mg IVP ONCE PRN PRN Reason: post transfusion Last Admin: 01/15/19 22:49 Dose: 20 mg Guaifenesin (Robitussin) 200 mg PO Q4H PRN PRN Reason: Cough and congestion Last Admin: 01/17/19 00:24 Dose: 200 mg Meropenem 1 gm/ Sodium (Chloride) 100 mls @ 100 mls/hr IVPB Q8H [facility]; Protocol Last Admin: 01/17/19 09:26 Dose: 100 mls/hr Micafungin Sodium 100 mg/ (Sodium Chloride) 100 mls @ 100 mls/hr IV Q24H [facility]; Protocol Last Admin: 01/17/19 00:15 Dose: 100 mls/hr Lisinopril (Zestril) 5 mg PO DAILY [facility] Last Admin: 01/17/19 10:17 Dose: Not Given Megestrol Acetate (Megace) 400 mg PO BID [facility] Last Admin: 01/17/19 09:41 Dose: 400 mg Ondansetron HCl (Zofran Inj) 4 mg IVP Q6H PRN PRN Reason: Nausea/Vomiting Pantoprazole Sodium (Protonix Ec Tab) 40 mg PO DAILY [facility] Last Admin: 01/17/19 09:41 Dose: 40 mg Promethazine HCl (Phenergan Syrup) 6.25 mg PO Q6 PRN PRN Reason: Cough Last Admin: 01/12/19 17:49 Dose: 6.25 mg Saliva Substitute (First Magic Mouthwash) 5 ml PO Q6 [facility] Last Admin: 01/17/19 06:00 Dose: Not Given Scopolamine (Transderm-Scop) 1 patch TD Q3D [facility] Last Admin: 01/14/19 10:22 Dose: 1 patch Tamsulosin HCl (Flomax) 0.4 mg PO BID [facility] Last Admin: 01/17/19 09:41 Dose: 0.4 mg - Labs Labs: 01/17/19 07:24 01/17/19 07:24 PT 15.8 SECONDS (9.7-12.2) H 12/29/18 06:30 INR 1.4 12/29/18 06:30 APTT 23 SECONDS (21-34) 12/29/18 06:30 - Constitutional Appears: Non-toxic, Cachectic, Chronically Ill - Head Exam Head Exam: ATRAUMATIC, NORMAL INSPECTION, NORMOCEPHALIC - Eye Exam Eye Exam: EOMI, Normal appearance, PERRL Pupil Exam: NORMAL ACCOMODATION, PERRL - ENT Exam ENT Exam: Mucous Membranes Moist, Normal Exam - Neck Exam Neck Exam: Full ROM, Normal Inspection. absent: Lymphadenopathy - Respiratory Exam Respiratory Exam: Clear to Ausculation Bilateral, NORMAL BREATHING PATTERN - Cardiovascular Exam Cardiovascular Exam: REGULAR RHYTHM, +S1, +S2. absent: Murmur - GI/Abdominal Exam GI & Abdominal Exam: Soft, Normal Bowel Sounds. absent: Tenderness - Rectal Exam Rectal Exam: Deferred - Exam Exam: NORMAL INSPECTION - Extremities Exam Extremities Exam: Full ROM, Normal Capillary Refill, Normal Inspection. absent: Joint Swelling, Pedal Edema - Back Exam Back Exam: NORMAL INSPECTION - Neurological Exam Neurological Exam: Alert, Awake, CN II-XII Intact, Oriented x3 - Psychiatric Exam Psychiatric exam: Normal Affect, Normal Mood - Skin Skin Exam: Dry, Intact, Normal Color, Warm Assessment and Plan (1) Pleural effusion, left Status: Acute (2) Pneumonia Status: Acute (3) Pleural effusion Status: Acute (4) AML (acute myeloblastic leukemia) Status: Chronic (5) Pancytopenia Status: Chronic - Assessment and Plan (Free Text) Assessment: neutropenia persists vanco d/c'd
[2019-01-17] MEDS: guaiFENesin 200 mg/10 ml Syrup UD PO SCH ×3 (17:11→23:47)
--- NOTE | 2019-01-17 17:12 | CP.PCM.PN ---
Subjective - Date & Time of Evaluation Date of Evaluation: 01/17/19 Time of Evaluation: 19:00 - Subjective Subjective: Patient seen and examined at bedside. Comfortable, NAD Patient is doing better today cough improved less shortness of breath and denies chest pain No fever or chills Will order Ct scan chest no contrast for tomorrow to R/O loculated pleural effusion/Empyema Chest x-ray single frontal view: 01/17/2019 Persistent moderate to large loculated left pleural effusion. Small right pleural effusion. Dense ill-defined consolidative opacification seen throughout the left lung including the left mid to lower lung zone. Bilateral hilar prominence. Scattered nodular densities in both lung martines. Patchy airspace opacification in the mid to lower lung zones bilaterally. Biapical pleural thickening with dense scarring and opacification. Cardiomegaly. Atherosclerotic calcification at the aortic knob. Degenerative changes in the spine and shoulders. IMPRESSION: No significant interval change. Objective - Vital Signs/Intake and Output Vital Signs (last 24 hours): Temp Pulse Resp BP Pulse Ox 98 F 78 18 90/52 L 20 L 01/17/19 16:00 01/17/19 16:00 01/17/19 16:00 01/17/19 16:00 01/17/19 16:00 Intake and Output: 01/17/19 01/17/19 06:59 18:59 Intake Total 300 700 Balance 300 700 - Medications Medications: Current Medications Acetaminophen (Tylenol 325mg Tab) 650 mg PO Q6 PRN PRN Reason: Pain, moderate (4-7) Last Admin: 01/11/19 19:32 Dose: 650 mg Acetaminophen (Tylenol 325mg Tab) 650 mg PO ONCE PRN PRN Reason: pre med Last Admin: 01/15/19 19:40 Dose: 650 mg Albuterol/Ipratropium (Duoneb 3 Mg/0.5 Mg (3 Ml) Ud) 3 ml INH RQ4 PRN PRN Reason: Shortness of Breath Diphenhydramine HCl (Benadryl) 25 mg IVP ONCE PRN PRN Reason: PRIOR TO TRANSFUSION Last Admin: 01/15/19 19:40 Dose: 25 mg Diphenhydramine HCl (Benadryl) 25 mg PO ONCE PRN PRN Reason: pre med Last Admin: 01/03/19 14:39 Dose: 25 mg Docusate Sodium (Colace) 100 mg PO BID PRN PRN Reason: Constipation Last Admin: 01/16/19 17:31 Dose: 100 mg Furosemide (Lasix) 20 mg PO DAILY [facility] Last Admin: 01/17/19 10:16 Dose: Not Given Furosemide (Lasix) 20 mg IVP ONCE PRN PRN Reason: post transfusion Last Admin: 01/15/19 22:49 Dose: 20 mg Guaifenesin (Robitussin) 200 mg PO Q4H [facility] Meropenem 1 gm/ Sodium (Chloride) 100 mls @ 100 mls/hr IVPB Q8H [facility]; Protocol Last Admin: 01/17/19 09:26 Dose: 100 mls/hr Micafungin Sodium 100 mg/ (Sodium Chloride) 100 mls @ 100 mls/hr IV Q24H [facility]; Protocol Last Admin: 01/17/19 00:15 Dose: 100 mls/hr Lisinopril (Zestril) 5 mg PO DAILY [facility] Last Admin: 01/17/19 10:17 Dose: Not Given Megestrol Acetate (Megace) 400 mg PO BID [facility] Last Admin: 01/17/19 09:41 Dose: 400 mg Ondansetron HCl (Zofran Inj) 4 mg IVP Q6H PRN PRN Reason: Nausea/Vomiting Pantoprazole Sodium (Protonix Ec Tab) 40 mg PO DAILY [facility] Last Admin: 01/17/19 09:41 Dose: 40 mg Promethazine HCl (Phenergan Syrup) 6.25 mg PO Q6 PRN PRN Reason: Cough Last Admin: 01/12/19 17:49 Dose: 6.25 mg Saliva Substitute (First Magic Mouthwash) 5 ml PO Q6 [facility] Last Admin: 01/17/19 06:00 Dose: Not Given Scopolamine (Transderm-Scop) 1 patch TD Q3D [facility] Last Admin: 01/17/19 11:36 Dose: 1 patch Tamsulosin HCl (Flomax) 0.4 mg PO BID [facility] Last Admin: 01/17/19 09:41 Dose: 0.4 mg - Labs Labs: 01/17/19 07:24 01/17/19 07:24 PT 15.8 SECONDS (9.7-12.2) H 12/29/18 06:30 INR 1.4 12/29/18 06:30 APTT 23 SECONDS (21-34) 12/29/18 06:30 - Head Exam Head Exam: ATRAUMATIC, NORMAL INSPECTION, NORMOCEPHALIC - ENT Exam ENT Exam: Mucous Membranes Moist, Normal Exam - Neck Exam Neck Exam: Full ROM, Normal Inspection. absent: Lymphadenopathy - Respiratory Exam Respiratory Exam: Clear to Ausculation Bilateral, NORMAL BREATHING PATTERN - Cardiovascular Exam Cardiovascular Exam: REGULAR RHYTHM, +S1, +S2. absent: Murmur - GI/Abdominal Exam GI & Abdominal Exam: Soft, Normal Bowel Sounds. absent: Tenderness Assessment and Plan (1) Pancytopenia Status: Acute (2) Pleural effusion, left Status: Acute (3) Pneumonia Status: Acute (4) Lung mass Status: Acute (5) Pneumothorax Status: Acute
[2019-01-18] MEDS: Meropenem 1 GM in Sodium Chloride 0.9% 100 ML IVPB SCH ×3 (01:03→17:05)
[2019-01-18] MEDS: guaiFENesin 200 mg/10 ml Syrup UD PO SCH ×5 (04:46→21:07)
[2019-01-18] MEDS: Mag&Al/Simet/Diphen/Lido 237 ML KIT PO SCH ×4 (06:06→17:04)
--- NOTE | 2019-01-18 07:35 | CP.PCM.PN ---
Subjective - Date & Time of Evaluation Date of Evaluation: 01/18/19 Time of Evaluation: 07:35 - Subjective Subjective: Medicine progress note for Dr. Montoya Patient examined at bedside with in room. Pt has no complaints at this time. reports continued cough and worsening of swelling in the extremities. Pt denies fever, chills, dyspnea. Objective - Vital Signs/Intake and Output Vital Signs (last 24 hours): Temp Pulse Resp BP Pulse Ox 97.9 F 82 20 92/49 L 100 01/17/19 23:40 01/17/19 23:40 01/17/19 23:40 01/17/19 23:40 01/17/19 23:40 Intake and Output: 01/18/19 01/18/19 06:59 18:59 Intake Total 480 Balance 480 - Medications Medications: Current Medications Acetaminophen (Tylenol 325mg Tab) 650 mg PO Q6 PRN PRN Reason: Pain, moderate (4-7) Last Admin: 01/11/19 19:32 Dose: 650 mg Acetaminophen (Tylenol 325mg Tab) 650 mg PO ONCE PRN PRN Reason: pre med Last Admin: 01/15/19 19:40 Dose: 650 mg Albuterol/Ipratropium (Duoneb 3 Mg/0.5 Mg (3 Ml) Ud) 3 ml INH RQ4 PRN PRN Reason: Shortness of Breath Diphenhydramine HCl (Benadryl) 25 mg IVP ONCE PRN PRN Reason: PRIOR TO TRANSFUSION Last Admin: 01/15/19 19:40 Dose: 25 mg Diphenhydramine HCl (Benadryl) 25 mg PO ONCE PRN PRN Reason: pre med Last Admin: 01/03/19 14:39 Dose: 25 mg Docusate Sodium (Colace) 100 mg PO BID PRN PRN Reason: Constipation Last Admin: 01/16/19 17:31 Dose: 100 mg Furosemide (Lasix) 20 mg PO DAILY [facility] Last Admin: 01/17/19 10:16 Dose: Not Given Furosemide (Lasix) 20 mg IVP ONCE PRN PRN Reason: post transfusion Last Admin: 01/15/19 22:49 Dose: 20 mg Guaifenesin (Robitussin) 200 mg PO Q4H [facility] Last Admin: 01/18/19 04:46 Dose: Not Given Meropenem 1 gm/ Sodium (Chloride) 100 mls @ 100 mls/hr IVPB Q8H [facility]; Protocol Last Admin: 01/18/19 01:03 Dose: 100 mls/hr Micafungin Sodium 100 mg/ (Sodium Chloride) 100 mls @ 100 mls/hr IV Q24H [facility]; Protocol Last Admin: 01/17/19 23:48 Dose: 100 mls/hr Lisinopril (Zestril) 5 mg PO DAILY [facility] Last Admin: 01/17/19 10:17 Dose: Not Given Megestrol Acetate (Megace) 400 mg PO BID [facility] Last Admin: 01/17/19 17:10 Dose: 400 mg Ondansetron HCl (Zofran Inj) 4 mg IVP Q6H PRN PRN Reason: Nausea/Vomiting Pantoprazole Sodium (Protonix Ec Tab) 40 mg PO DAILY [facility] Last Admin: 01/17/19 09:41 Dose: 40 mg Promethazine HCl (Phenergan Syrup) 6.25 mg PO Q6 PRN PRN Reason: Cough Last Admin: 01/12/19 17:49 Dose: 6.25 mg Saliva Substitute (First Magic Mouthwash) 5 ml PO Q6 [facility] Last Admin: 01/18/19 06:06 Dose: Not Given Scopolamine (Transderm-Scop) 1 patch TD Q3D [facility] Last Admin: 01/17/19 11:36 Dose: 1 patch Tamsulosin HCl (Flomax) 0.4 mg PO BID [facility] Last Admin: 01/17/19 17:10 Dose: 0.4 mg - Labs Labs: 01/17/19 07:24 01/17/19 07:24 PT 15.8 SECONDS (9.7-12.2) H 12/29/18 06:30 INR 1.4 12/29/18 06:30 APTT 23 SECONDS (21-34) 12/29/18 06:30 - Additional Findings Additional findings: - Constitutional Appears: Non-toxic, No Acute Distress, Chronically Ill - Head Exam Head Exam: ATRAUMATIC, NORMAL INSPECTION, NORMOCEPHALIC - Eye Exam Eye Exam: EOMI, Normal appearance - ENT Exam ENT Exam: Mucous Membranes dry - Neck Exam Neck Exam: Normal Inspection - Respiratory Exam Respiratory Exam: Decreased Breath Sounds, Rales, rhonchi, NORMAL BREATHING PATTERN - Cardiovascular Exam Cardiovascular Exam: REGULAR RHYTHM, +S1, +S2. absent: Tachycardia - GI/Abdominal Exam GI & Abdominal Exam: Soft, Normal Bowel Sounds. absent: Distended, Tenderness - Extremities Exam Extremities Exam: Pedal Edema (2+). absent: Calf Tenderness, Normal Inspection Additional comments: Upper extremity 2+ edema - Neurological Exam Neurological Exam: Alert - Psychiatric Exam Psychiatric exam: Flat Affect, Depressed mood - Skin Skin Exam: Dry, Intact, Pallor, Warm. large area of ecchymosis on the left forearm, nontender. Right sided midline nontender, no active bleeding (c/d/i) Assessment and Plan - Assessment and Plan (Free Text) Assessment: 78 year old male with history of COPD, AML on chemo, BPH, HTN who presents for shortness of breath. Admitted for pleural effusions. Pt is DNR/DNI, consider hospice. Plan: AML Oncologist Dr. Bobby consulted, help appreciated Received 3rd dose of Decitabine 12/24/18 Platelets 24 today 1u PRBC transfusion - 01/15/19 2u PRBC transfusion- 01/11/19 2u PRBC transfusion- 01/08/19 1u PRBC transfusion- 01/03/19 2u platelets transfusion- 01/02/19 2u PRBCs and 2u platelets transfusion received- 12/30/18 Neutropenic precautions Zofran 4mg Q6 PRN Transfuse PRN CBC unable to be drawn today, will try again in the pm Right midline inserted 01/17/[address] Mcclelland Pt needs picc line, anup picc line nurse will be contacted Hypotension Secondary to hypoalbuminemia Continue to monitor Healthcare Associated Pneumonia, with left sided Infiltrates Right sided Pleural effusion Right sided hydropneumothorax Cough Water Supervisor Dr. Thurston consulted, help appreciated CXR 01/17: no interval change from prior imaging CXR 01/13: Large left upper lobe bulla. Small right upper lobe bulla. Extensive consolidation/edema involving b/l lung martines with layering pleural effusions. CT chest: No CTA evidence for acute pulmonary embolism.Dense consolidation with air bronchogram in the left upper and lower lobes. Moderate right and small left pleural effusions. Multiple variable-sized parenchymal and subpleural nodules in the right lung, the largest in the right middle lobe measures 1.7 x 1.3 cm. These are nonspecific and could be infectious, inflammatory or neoplastic in etiology. Short-term interval follow-up is advised. Enlarged precarinal mediast inal lymph nodes, the largest measures 1.3 cm in transverse diameter. Mild cardiomegaly and small pericardial effusion. Saturating well on NC Sputum Cx: Staph. aureus only resistant to PCN Negative legionella, strep pneumonia, mycoplasma, quantiferon, beta glucan, flu ID Dr. Ferrari consulted, help appreciated Vancomycin stopped per ID 01/18/19 vanc trough is 6.7 Merem 1g q8h Micofungin 100mg IV q24h (12/26/18) Duonebs q4 prn Lasix 20mg PO daily Robitussin 200mg q4h Phenergan 6.25mg po q6 prn Scopolamine patch Mucinex 600mg PO BID Magic mouthwash Chest CT (01/18/19) shows There has been marked increase in size right-sided effusion which is now so sedated with a anteriorly located moderate-sized pneumothorax (hydropneumothorax). Note the right-sided effusion exhibits a somewhat lobular configuration which could be secondary to chronic scarring and fibrosis with tethering of the lung to the pleural surface rather than loculated components. Associated mild atelectasis right lower as well as right upper lobes. Vague ground-glass opacities seen in the aerated portions of the upper right upper lobe although significant underlying centrilobular. 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 There is a small to medium size left-sided effusion with significant atelectatic changes of the left entire left lung. Abdominal ascites. Redemonstrated are multiple low-attenuation hepatic lesions. Abdominal Pain Abd US: low-attenuation lesion L lobe liver. Liver exhibits increased echotexture secondary to fatty infiltration or hepatocellular disease. splenomegaly. several tiny echogenic foci adherent to gallbladder wall possibly representing polyps. slight increased renal echotexture. Bladder scans PRN Colace PRN for Constipation Zofran prn History of BPH Flomax 0.4mg PO BID History of HTN Lisinopril 5mg PO daily Holding parameters Poor Nutrition encourage PO intake Seed Laboratory Assistant consulted, recs appreciated Low Microbial Diet Ensure Enlive TID B12 842, wnl Megace 400mg PO BID Prophylaxis: Protonix SCDs PT/OT DNR/DNI Dispo: Prognosis is very poor. Family discussing hospice options with hospice disability representative. F/u in am
[2019-01-18] MEDS ORDERED: Iodixanol 320 MG/ML 100 ML BOTTLE IV ONE ×2 (08:03→08:25)
[2019-01-18 08:11] LABS: ALB/GLOB RATIO 0.6 (1.0-2.1); ALBUMIN 1.4 g/dL (3.5-5.0); ALT/SGPT 18 U/L (21-72); AST/SGOT 13 U/L (17-59); BLOOD UREA NITROGEN 20 mg/dL (9-20); CALCIUM 7.9 mg/dl (8.6-10.4); GFR NON-AFRICAN AMERICAN > 60
[2019-01-18] MEDS: Pantoprazole 40 mg EC Tab PO SCH (09:58)
[2019-01-18] MEDS: Megestrol Acetate 40 mg/ml Cup PO SCH ×2 (09:58→17:05)
--- NOTE | 2019-01-18 11:23 | CP.PCM.PN ---
Subjective - Date & Time of Evaluation Date of Evaluation: 01/18/19 Time of Evaluation: 08:00 - Subjective Subjective: events noted afeb wbc still low Objective - Vital Signs/Intake and Output Vital Signs (last 24 hours): Temp Pulse Resp BP Pulse Ox 98.2 F 84 20 85/48 L 100 01/18/19 08:32 01/18/19 08:32 01/18/19 08:32 01/18/19 08:32 01/18/19 08:32 Intake and Output: 01/18/19 01/18/19 06:59 18:59 Intake Total 480 Balance 480 - Medications Medications: Current Medications Acetaminophen (Tylenol 325mg Tab) 650 mg PO Q6 PRN PRN Reason: Pain, moderate (4-7) Last Admin: 01/11/19 19:32 Dose: 650 mg Acetaminophen (Tylenol 325mg Tab) 650 mg PO ONCE PRN PRN Reason: pre med Last Admin: 01/15/19 19:40 Dose: 650 mg Albuterol/Ipratropium (Duoneb 3 Mg/0.5 Mg (3 Ml) Ud) 3 ml INH RQ4 PRN PRN Reason: Shortness of Breath Diphenhydramine HCl (Benadryl) 25 mg IVP ONCE PRN PRN Reason: PRIOR TO TRANSFUSION Last Admin: 01/15/19 19:40 Dose: 25 mg Diphenhydramine HCl (Benadryl) 25 mg PO ONCE PRN PRN Reason: pre med Last Admin: 01/03/19 14:39 Dose: 25 mg Docusate Sodium (Colace) 100 mg PO BID PRN PRN Reason: Constipation Last Admin: 01/16/19 17:31 Dose: 100 mg Furosemide (Lasix) 20 mg PO DAILY [facility] Last Admin: 01/18/19 09:59 Dose: Not Given Furosemide (Lasix) 20 mg IVP ONCE PRN PRN Reason: post transfusion Last Admin: 01/15/19 22:49 Dose: 20 mg Guaifenesin (Robitussin) 200 mg PO Q4H [facility] Last Admin: 01/18/19 08:00 Dose: 200 mg Meropenem 1 gm/ Sodium (Chloride) 100 mls @ 100 mls/hr IVPB Q8H [facility]; Protocol Last Admin: 01/18/19 09:57 Dose: 100 mls/hr Micafungin Sodium 100 mg/ (Sodium Chloride) 100 mls @ 100 mls/hr IV Q24H [facility]; Protocol Last Admin: 01/17/19 23:48 Dose: 100 mls/hr Lisinopril (Zestril) 5 mg PO DAILY [facility] Last Admin: 01/18/19 10:00 Dose: Not Given Megestrol Acetate (Megace) 400 mg PO BID [facility] Last Admin: 01/18/19 09:58 Dose: 400 mg Ondansetron HCl (Zofran Inj) 4 mg IVP Q6H PRN PRN Reason: Nausea/Vomiting Pantoprazole Sodium (Protonix Ec Tab) 40 mg PO DAILY [facility] Last Admin: 01/18/19 09:58 Dose: 40 mg Promethazine HCl (Phenergan Syrup) 6.25 mg PO Q6 PRN PRN Reason: Cough Last Admin: 01/12/19 17:49 Dose: 6.25 mg Saliva Substitute (First Magic Mouthwash) 5 ml PO Q6 [facility] Last Admin: 01/18/19 06:06 Dose: Not Given Scopolamine (Transderm-Scop) 1 patch TD Q3D [facility] Last Admin: 01/17/19 11:36 Dose: 1 patch Tamsulosin HCl (Flomax) 0.4 mg PO BID [facility] Last Admin: 01/18/19 09:58 Dose: 0.4 mg - Labs Labs: 01/17/19 07:24 01/18/19 07:27 PT 15.8 SECONDS (9.7-12.2) H 12/29/18 06:30 INR 1.4 12/29/18 06:30 APTT 23 SECONDS (21-34) 12/29/18 06:30 - Constitutional Appears: Cachectic, Chronically Ill - Head Exam Head Exam: NORMOCEPHALIC - Eye Exam Eye Exam: absent: Scleral icterus Pupil Exam: NORMAL ACCOMODATION - ENT Exam ENT Exam: Mucous Membranes Dry - Respiratory Exam Respiratory Exam: Decreased Breath Sounds - Cardiovascular Exam Cardiovascular Exam: REGULAR RHYTHM, +S1, +S2 - GI/Abdominal Exam GI & Abdominal Exam: Distended, Soft - Rectal Exam Rectal Exam: Deferred - Exam Exam: NORMAL INSPECTION - Extremities Exam Extremities Exam: Normal Inspection - Back Exam Back Exam: absent: CVA tenderness (L), CVA tenderness (R) - Neurological Exam Neurological Exam: Alert, Awake, CN II-XII Intact - Psychiatric Exam Psychiatric exam: Normal Mood - Skin Skin Exam: Dry Assessment and Plan (1) Pleural effusion, left Status: Acute (2) Pneumonia Status: Acute (3) Pleural effusion Status: Acute (4) AML (acute myeloblastic leukemia) Status: Chronic (5) Pancytopenia Status: Chronic - Assessment and Plan (Free Text) Assessment: cont supportive rx
--- NOTE | 2019-01-18 15:43 | CT ---
Date of service: 01/18/2019 PROCEDURE: CT Chest with contrast HISTORY: Loculated pleural effusion COMPARISON: Comparison made with prior chest radiograph dated 01/17/2019. Comparison also made with prior CTA of the chest 12/29/2018. TECHNIQUE: Contiguous axial images were obtained through the chest with intravenous contrast enhancement. Sagittal and coronal reconstructions were performed. IV contrast: 100 cc Visipaque 320 Radiation dose: Total exam DLP = 273.04 mGy-cm. This CT exam was performed using one or more of the following dose reduction techniques: Automated exposure control, adjustment of the mA and/or kV according to patient size, and/or use of iterative reconstruction technique. FINDINGS: LUNGS: There has been marked increase in size right-sided effusion which is now so sedated with a anteriorly located moderate-sized pneumothorax (hydropneumothorax).. Note the right-sided effusion exhibits a somewhat lobular configuration which could be secondary to chronic scarring and fibrosis with tethering of the lung to the pleural surface rather than loculated components... Associated mild atelectasis right lower as well as right upper lobes. Vague ground-glass opacities seen in the aerated portions of the upper right upper lobe although significant underlying centrilobular. 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 There is a small to medium size left-sided effusion with significant atelectatic changes of the left entire left lung. MEDIASTINUM: Heart size is within range of normal. No significant pericardial effusion. Ascending thoracic aorta measures approximately 2.9 cm and descending thoracic aorta measures approximately 2.3 cm. Mild aortic atherosclerotic calcification or mural plaque present. Pulmonary trunk measures approximately 1.9 cm. Trachea midline and patent with no large central endoluminal lesions. There is a small hiatal hernia. PLEURA: No pleural fluid. No pneumothorax. BONES: Minor multilevel degenerative spondylosis of the thoracic spine. UPPER ABDOMEN: Abdominal ascites. Redemonstrated is a relatively large elliptical shaped low-attenuation lesion in the anterior aspect left lobe liver with what may represent some artifact or peripheral enhancement suggesting an underlying hemangioma. There appears to be a smaller rounded low-attenuation lesion more posteriorly located left lobe;. An additional low-attenuation lesions seen inferior aspect right lobe with a peripheral enhancing lesion posterior inferior aspect right lobe liver. OTHER FINDINGS: There also appears to be mild diffuse anasarca. IMPRESSION: There has been marked increase in size right-sided effusion which is now so sedated with a anteriorly located moderate-sized pneumothorax (hydropneumothorax).. Note the right-sided effusion exhibits a somewhat lobular configuration which could be secondary to chronic scarring and fibrosis with tethering of the lung to the pleural surface rather than loculated components... Associated mild atelectasis right lower as well as right upper lobes. Vague ground-glass opacities seen in the aerated portions of the upper right upper lobe although significant underlying centrilobular. 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 There is a small to medium size left-sided effusion with significant atelectatic changes of the left entire left lung. Abdominal ascites. Redemonstrated are multiple low-attenuation hepatic lesions...
--- NOTE | 2019-01-18 16:41 | CP.PCM.PN ---
Subjective - Date & Time of Evaluation Date of Evaluation: 01/18/19 Time of Evaluation: 16:40 - Subjective Subjective: Pulmonary follow up, Covering Dr Thurston The Patient was seen and examined at the bedside, Medical records reviewed, and management issues were discussed and formulated with the house staff. Events reviewed Objective - Vital Signs/Intake and Output Vital Signs (last 24 hours): Temp Pulse Resp BP Pulse Ox 98.6 F 90 20 96/61 L 99 01/18/19 15:49 01/18/19 15:49 01/18/19 15:49 01/18/19 15:49 01/18/19 15:49 Intake and Output: 01/18/19 01/18/19 06:59 18:59 Intake Total 480 340 Balance 480 340 - Medications Medications: Current Medications Acetaminophen (Tylenol 325mg Tab) 650 mg PO Q6 PRN PRN Reason: Pain, moderate (4-7) Last Admin: 01/11/19 19:32 Dose: 650 mg Acetaminophen (Tylenol 325mg Tab) 650 mg PO ONCE PRN PRN Reason: pre med Last Admin: 01/15/19 19:40 Dose: 650 mg Albuterol/Ipratropium (Duoneb 3 Mg/0.5 Mg (3 Ml) Ud) 3 ml INH RQ4 PRN PRN Reason: Shortness of Breath Diphenhydramine HCl (Benadryl) 25 mg IVP ONCE PRN PRN Reason: PRIOR TO TRANSFUSION Last Admin: 01/15/19 19:40 Dose: 25 mg Diphenhydramine HCl (Benadryl) 25 mg PO ONCE PRN PRN Reason: pre med Last Admin: 01/03/19 14:39 Dose: 25 mg Docusate Sodium (Colace) 100 mg PO BID PRN PRN Reason: Constipation Last Admin: 01/16/19 17:31 Dose: 100 mg Furosemide (Lasix) 20 mg PO DAILY [facility] Last Admin: 01/18/19 09:59 Dose: Not Given Furosemide (Lasix) 20 mg IVP ONCE PRN PRN Reason: post transfusion Last Admin: 01/15/19 22:49 Dose: 20 mg Guaifenesin (Robitussin) 200 mg PO Q4H [facility] Last Admin: 01/18/19 12:22 Dose: 200 mg Meropenem 1 gm/ Sodium (Chloride) 100 mls @ 100 mls/hr IVPB Q8H [facility]; Protocol Last Admin: 01/18/19 09:57 Dose: 100 mls/hr Micafungin Sodium 100 mg/ (Sodium Chloride) 100 mls @ 100 mls/hr IV Q24H [facility]; Protocol Last Admin: 01/17/19 23:48 Dose: 100 mls/hr Lisinopril (Zestril) 5 mg PO DAILY [facility] Last Admin: 01/18/19 10:00 Dose: Not Given Megestrol Acetate (Megace) 400 mg PO BID [facility] Last Admin: 01/18/19 09:58 Dose: 400 mg Ondansetron HCl (Zofran Inj) 4 mg IVP Q6H PRN PRN Reason: Nausea/Vomiting Pantoprazole Sodium (Protonix Ec Tab) 40 mg PO DAILY [facility] Last Admin: 01/18/19 09:58 Dose: 40 mg Promethazine HCl (Phenergan Syrup) 6.25 mg PO Q6 PRN PRN Reason: Cough Last Admin: 01/12/19 17:49 Dose: 6.25 mg Saliva Substitute (First Magic Mouthwash) 5 ml PO Q6 [facility] Last Admin: 01/18/19 13:12 Dose: Not Given Scopolamine (Transderm-Scop) 1 patch TD Q3D [facility] Last Admin: 01/17/19 11:36 Dose: 1 patch Tamsulosin HCl (Flomax) 0.4 mg PO BID [facility] Last Admin: 01/18/19 09:58 Dose: 0.4 mg - Labs Labs: 01/17/19 07:24 01/18/19 07:27 PT 15.8 SECONDS (9.7-12.2) H 12/29/18 06:30 INR 1.4 12/29/18 06:30 APTT 23 SECONDS (21-34) 12/29/18 06:30 Assessment and Plan (1) Pancytopenia Status: Acute (2) Pleural effusion, left Status: Acute (3) Pneumonia Status: Acute (4) Lung mass Status: Acute (5) Pneumothorax Status: Acute
--- NOTE | 2019-01-18 22:35 | CP.PCM.PN ---
Subjective - Date & Time of Evaluation Date of Evaluation: 01/17/19 Time of Evaluation: 19:00 - Subjective Subjective: Feels weak. Objective - Vital Signs/Intake and Output Vital Signs (last 24 hours): Temp Pulse Resp BP Pulse Ox 98.6 F 90 20 96/61 L 99 01/18/19 15:49 01/18/19 15:49 01/18/19 15:49 01/18/19 15:49 01/18/19 15:49 Intake and Output: 01/18/19 01/19/19 18:59 06:59 Intake Total 340 220 Balance 340 220 - Medications Medications: Current Medications Acetaminophen (Tylenol 325mg Tab) 650 mg PO Q6 PRN PRN Reason: Pain, moderate (4-7) Last Admin: 01/11/19 19:32 Dose: 650 mg Acetaminophen (Tylenol 325mg Tab) 650 mg PO ONCE PRN PRN Reason: pre med Last Admin: 01/15/19 19:40 Dose: 650 mg Albuterol/Ipratropium (Duoneb 3 Mg/0.5 Mg (3 Ml) Ud) 3 ml INH RQ4 PRN PRN Reason: Shortness of Breath Diphenhydramine HCl (Benadryl) 25 mg IVP ONCE PRN PRN Reason: PRIOR TO TRANSFUSION Last Admin: 01/15/19 19:40 Dose: 25 mg Diphenhydramine HCl (Benadryl) 25 mg PO ONCE PRN PRN Reason: pre med Last Admin: 01/03/19 14:39 Dose: 25 mg Docusate Sodium (Colace) 100 mg PO BID PRN PRN Reason: Constipation Last Admin: 01/16/19 17:31 Dose: 100 mg Furosemide (Lasix) 20 mg PO DAILY [facility] Last Admin: 01/18/19 09:59 Dose: Not Given Furosemide (Lasix) 20 mg IVP ONCE PRN PRN Reason: post transfusion Last Admin: 01/15/19 22:49 Dose: 20 mg Guaifenesin (Robitussin) 200 mg PO Q4H [facility] Last Admin: 01/18/19 21:07 Dose: Not Given Meropenem 1 gm/ Sodium (Chloride) 100 mls @ 100 mls/hr IVPB Q8H [facility]; Protocol Last Admin: 01/18/19 17:05 Dose: 100 mls/hr Micafungin Sodium 100 mg/ (Sodium Chloride) 100 mls @ 100 mls/hr IV Q24H [facility]; Protocol Last Admin: 01/17/19 23:48 Dose: 100 mls/hr Lisinopril (Zestril) 5 mg PO DAILY [facility] Last Admin: 01/18/19 10:00 Dose: Not Given Megestrol Acetate (Megace) 400 mg PO BID [facility] Last Admin: 01/18/19 17:05 Dose: 400 mg Ondansetron HCl (Zofran Inj) 4 mg IVP Q6H PRN PRN Reason: Nausea/Vomiting Pantoprazole Sodium (Protonix Ec Tab) 40 mg PO DAILY [facility] Last Admin: 01/18/19 09:58 Dose: 40 mg Promethazine HCl (Phenergan Syrup) 6.25 mg PO Q6 PRN PRN Reason: Cough Last Admin: 01/12/19 17:49 Dose: 6.25 mg Saliva Substitute (First Magic Mouthwash) 5 ml PO Q6 [facility] Last Admin: 01/18/19 17:04 Dose: Not Given Scopolamine (Transderm-Scop) 1 patch TD Q3D [facility] Last Admin: 01/17/19 11:36 Dose: 1 patch Tamsulosin HCl (Flomax) 0.4 mg PO BID [facility] Last Admin: 01/18/19 17:05 Dose: 0.4 mg - Labs Labs: 01/17/19 07:24 01/18/19 07:27 PT 15.8 SECONDS (9.7-12.2) H 12/29/18 06:30 INR 1.4 12/29/18 06:30 APTT 23 SECONDS (21-34) 12/29/18 06:30 - Head Exam Head Exam: ATRAUMATIC - Eye Exam Eye Exam: Normal appearance - ENT Exam ENT Exam: Mucous Membranes Dry - Respiratory Exam Respiratory Exam: NORMAL BREATHING PATTERN - Cardiovascular Exam Cardiovascular Exam: +S1, +S2 - GI/Abdominal Exam GI & Abdominal Exam: Normal Bowel Sounds Assessment and Plan (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
--- NOTE | 2019-01-18 22:37 | CP.PCM.PN ---
Subjective - Date & Time of Evaluation Date of Evaluation: 01/18/19 Time of Evaluation: 13:00 - Subjective Subjective: Feels weak, daughter at bedside. Objective - Vital Signs/Intake and Output Vital Signs (last 24 hours): Temp Pulse Resp BP Pulse Ox 98.6 F 90 20 96/61 L 99 01/18/19 15:49 01/18/19 15:49 01/18/19 15:49 01/18/19 15:49 01/18/19 15:49 Intake and Output: 01/18/19 01/19/19 18:59 06:59 Intake Total 340 220 Balance 340 220 - Medications Medications: Current Medications Acetaminophen (Tylenol 325mg Tab) 650 mg PO Q6 PRN PRN Reason: Pain, moderate (4-7) Last Admin: 01/11/19 19:32 Dose: 650 mg Acetaminophen (Tylenol 325mg Tab) 650 mg PO ONCE PRN PRN Reason: pre med Last Admin: 01/15/19 19:40 Dose: 650 mg Albuterol/Ipratropium (Duoneb 3 Mg/0.5 Mg (3 Ml) Ud) 3 ml INH RQ4 PRN PRN Reason: Shortness of Breath Diphenhydramine HCl (Benadryl) 25 mg IVP ONCE PRN PRN Reason: PRIOR TO TRANSFUSION Last Admin: 01/15/19 19:40 Dose: 25 mg Diphenhydramine HCl (Benadryl) 25 mg PO ONCE PRN PRN Reason: pre med Last Admin: 01/03/19 14:39 Dose: 25 mg Docusate Sodium (Colace) 100 mg PO BID PRN PRN Reason: Constipation Last Admin: 01/16/19 17:31 Dose: 100 mg Furosemide (Lasix) 20 mg PO DAILY [facility] Last Admin: 01/18/19 09:59 Dose: Not Given Furosemide (Lasix) 20 mg IVP ONCE PRN PRN Reason: post transfusion Last Admin: 01/15/19 22:49 Dose: 20 mg Guaifenesin (Robitussin) 200 mg PO Q4H [facility] Last Admin: 01/18/19 21:07 Dose: Not Given Meropenem 1 gm/ Sodium (Chloride) 100 mls @ 100 mls/hr IVPB Q8H [facility]; Protocol Last Admin: 01/18/19 17:05 Dose: 100 mls/hr Micafungin Sodium 100 mg/ (Sodium Chloride) 100 mls @ 100 mls/hr IV Q24H [facility]; Protocol Last Admin: 01/17/19 23:48 Dose: 100 mls/hr Lisinopril (Zestril) 5 mg PO DAILY [facility] Last Admin: 01/18/19 10:00 Dose: Not Given Megestrol Acetate (Megace) 400 mg PO BID [facility] Last Admin: 01/18/19 17:05 Dose: 400 mg Ondansetron HCl (Zofran Inj) 4 mg IVP Q6H PRN PRN Reason: Nausea/Vomiting Pantoprazole Sodium (Protonix Ec Tab) 40 mg PO DAILY [facility] Last Admin: 01/18/19 09:58 Dose: 40 mg Promethazine HCl (Phenergan Syrup) 6.25 mg PO Q6 PRN PRN Reason: Cough Last Admin: 01/12/19 17:49 Dose: 6.25 mg Saliva Substitute (First Magic Mouthwash) 5 ml PO Q6 [facility] Last Admin: 01/18/19 17:04 Dose: Not Given Scopolamine (Transderm-Scop) 1 patch TD Q3D [facility] Last Admin: 01/17/19 11:36 Dose: 1 patch Tamsulosin HCl (Flomax) 0.4 mg PO BID [facility] Last Admin: 01/18/19 17:05 Dose: 0.4 mg - Labs Labs: 01/17/19 07:24 01/18/19 07:27 PT 15.8 SECONDS (9.7-12.2) H 12/29/18 06:30 INR 1.4 12/29/18 06:30 APTT 23 SECONDS (21-34) 12/29/18 06:30 - Head Exam Head Exam: ATRAUMATIC - Eye Exam Eye Exam: Normal appearance - ENT Exam ENT Exam: Mucous Membranes Dry - Respiratory Exam Respiratory Exam: Decreased Breath Sounds - Cardiovascular Exam Cardiovascular Exam: +S1, +S2 - GI/Abdominal Exam GI & Abdominal Exam: Normal Bowel Sounds - Extremities Exam Extremities Exam: Pedal Edema Assessment and Plan (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
[2019-01-19] MEDS: Micafungin 100 MG in Sodium Chloride 0.9% 100 ML IV SCH (00:03)
[2019-01-19] MEDS: Mag&Al/Simet/Diphen/Lido 237 ML KIT PO SCH ×4 (00:52→17:30)
[2019-01-19] MEDS: guaiFENesin 200 mg/10 ml Syrup UD PO SCH ×6 (00:52→20:26)
[2019-01-19] MEDS: Meropenem 1 GM in Sodium Chloride 0.9% 100 ML IVPB SCH ×3 (01:14→17:28)
[2019-01-19 09:03] LABS: HEMOGLOBIN 7.3 g/dL (12.0-18.0); LYMPH # 0.3 K/uL (1.0-4.3); LYMPH % 90.7 % (20.0-40.0); MEAN CELL VOLUME 95.3 fL (80.0-94.0); MEAN CORPUSCULAR HEMOGLOBIN 30.7 pg (27.0-31.0); MEAN CORPUSCULAR HGB CONC 32.3 g/dL (33.0-37.0); MEAN PLATELET VOLUME 8.7 fL (7.2-11.7); NEUT % 4.3 % (50.0-75.0); NRBC % 0.5 % (0.0-2.0); RBC 2.36 Mil/uL (4.40-5.90); RED CELL DISTRIBUTION WIDTH 12.8 % (11.5-14.5)
[2019-01-19 09:18] LABS: ALB/GLOB RATIO 0.6 (1.0-2.1); ALBUMIN 1.5 g/dL (3.5-5.0); ALT/SGPT 13 U/L (21-72); AST/SGOT 8 U/L (17-59); BLOOD UREA NITROGEN 20 mg/dL (9-20); CALCIUM 8.1 mg/dl (8.6-10.4); GFR NON-AFRICAN AMERICAN > 60; WHITE BLOOD COUNT 0.3 K/uL (4.8-10.8)
[2019-01-19] MEDS: Megestrol Acetate 40 mg/ml Cup PO SCH ×2 (09:29→17:29)
[2019-01-19] MEDS: Pantoprazole 40 mg EC Tab PO SCH (09:30)
--- NOTE | 2019-01-19 13:38 | CP.PCM.PN ---
Subjective - Date & Time of Evaluation Date of Evaluation: 01/19/19 Time of Evaluation: 10:00 - Subjective Subjective: Patient examined at bedside with family in room. No acute events overnight. Patient was unable to get PICC placed 2/2 pancytopenia. Patient reporting LE edema worsening. Pt reports LE pain associated with edema, worst at feet. Pt r eceptive to receiving low dose morphine for pain management. Discussion held with pt and family regarding pulmonary status and hydropneumothorax and options to undergo further treatment with chest tube/pigtail/thoracentesis as recommended by Pulmonology. Family reports they will discuss options and decisions regarding ongoing treatment. Objective - Vital Signs/Intake and Output Vital Signs (last 24 hours): Temp Pulse Resp BP Pulse Ox 97.4 F L 82 20 96/57 L 98 01/19/19 07:35 01/19/19 07:35 01/19/19 07:35 01/19/19 09:30 01/19/19 07:35 Intake and Output: 01/19/19 01/19/19 06:59 18:59 Intake Total 420 Balance 420 - Medications Medications: Current Medications Acetaminophen (Tylenol 325mg Tab) 650 mg PO Q6 PRN PRN Reason: Pain, moderate (4-7) Last Admin: 01/11/19 19:32 Dose: 650 mg Acetaminophen (Tylenol 325mg Tab) 650 mg PO ONCE PRN PRN Reason: pre med Last Admin: 01/15/19 19:40 Dose: 650 mg Albuterol/Ipratropium (Duoneb 3 Mg/0.5 Mg (3 Ml) Ud) 3 ml INH RQ4 PRN PRN Reason: Shortness of Breath Diphenhydramine HCl (Benadryl) 25 mg IVP ONCE PRN PRN Reason: PRIOR TO TRANSFUSION Last Admin: 01/15/19 19:40 Dose: 25 mg Diphenhydramine HCl (Benadryl) 25 mg PO ONCE PRN PRN Reason: pre med Last Admin: 01/03/19 14:39 Dose: 25 mg Docusate Sodium (Colace) 100 mg PO BID PRN PRN Reason: Constipation Last Admin: 01/16/19 17:31 Dose: 100 mg Furosemide (Lasix) 20 mg PO DAILY [facility] Last Admin: 01/19/19 09:30 Dose: Not Given Furosemide (Lasix) 20 mg IVP ONCE PRN PRN Reason: post transfusion Last Admin: 01/15/19 22:49 Dose: 20 mg Guaifenesin (Robitussin) 200 mg PO Q4H [facility] Last Admin: 01/19/19 12:20 Dose: Not Given Meropenem 1 gm/ Sodium (Chloride) 100 mls @ 100 mls/hr IVPB Q8H [facility]; Protocol Last Admin: 01/19/19 09:31 Dose: 100 mls/hr Micafungin Sodium 100 mg/ (Sodium Chloride) 100 mls @ 100 mls/hr IV Q24H [facility]; Protocol Last Admin: 01/19/19 00:03 Dose: 100 mls/hr Lisinopril (Zestril) 5 mg PO DAILY [facility] Last Admin: 01/19/19 09:29 Dose: 5 mg Megestrol Acetate (Megace) 400 mg PO BID [facility] Last Admin: 01/19/19 09:29 Dose: 400 mg Ondansetron HCl (Zofran Inj) 4 mg IVP Q6H PRN PRN Reason: Nausea/Vomiting Pantoprazole Sodium (Protonix Ec Tab) 40 mg PO DAILY [facility] Last Admin: 01/19/19 09:30 Dose: 40 mg Promethazine HCl (Phenergan Syrup) 6.25 mg PO Q6 PRN PRN Reason: Cough Last Admin: 01/12/19 17:49 Dose: 6.25 mg Saliva Substitute (First Magic Mouthwash) 5 ml PO Q6 [facility] Last Admin: 01/19/19 05:53 Dose: Not Given Scopolamine (Transderm-Scop) 1 patch TD Q3D [facility] Last Admin: 01/17/19 11:36 Dose: 1 patch Tamsulosin HCl (Flomax) 0.4 mg PO BID [facility] Last Admin: 01/19/19 09:29 Dose: 0.4 mg - Labs Labs: 01/19/19 08:55 01/19/19 08:55 PT 15.8 SECONDS (9.7-12.2) H 12/29/18 06:30 INR 1.4 12/29/18 06:30 APTT 23 SECONDS (21-34) 12/29/18 06:30 - Constitutional Appears: Non-toxic, No Acute Distress, Cachectic, Chronically Ill - Head Exam Head Exam: ATRAUMATIC, NORMAL INSPECTION, NORMOCEPHALIC - Eye Exam Eye Exam: EOMI, Normal appearance - ENT Exam ENT Exam: Mucous Membranes Moist, Normal Exam - Neck Exam Additional comments: left tracheal deviation - Respiratory Exam Respiratory Exam: Decreased Breath Sounds, Rales, NORMAL BREATHING PATTERN - Cardiovascular Exam Cardiovascular Exam: REGULAR RHYTHM, +S1, +S2 - GI/Abdominal Exam GI & Abdominal Exam: Soft, Normal Bowel Sounds. absent: Tenderness - Extremities Exam Extremities Exam: Pedal Edema, Tenderness Additional comments: LE edema 3+ bilaterally - Neurological Exam Neurological Exam: Alert, Awake - Psychiatric Exam Psychiatric exam: Flat Affect - Skin Skin Exam: Dry, Intact, Pallor, Warm Assessment and Plan - Assessment and Plan (Free Text) Assessment: 78 year old male with history of COPD, AML on chemo, pancytopenia 2/2 AML, BPH, HTN admitted for treatment of pancytopenia with new right sided hydropneumothorax Plan: Pancytopenia 2/[address] Bobby consulted Zofran 4mg Q6 PRN Transfuse PRN Right midline inserted 01/17/19 PICC not inserted 2/2 pancytopenia Healthcare Associated Pneumonia, with left sided Infiltrates Right sided Pleural effusion Right sided hydropneumothorax Cough Transportation Officer Dr. Thurston consulted ID Dr. Ferrari consulted Vancomycin d/c-ed per ID Merem 1g q8h Micofungin 100mg IV q24h (12/26/18) Duonebs q4 prn Lasix 20mg PO daily Robitussin 200mg q4h Phenergan 6.25mg po q6 prn Scopolamine patch Mucinex 600mg PO BID Magic mouthwash Chest CT (01/18/19) shows There has been marked increase in size right-sided effusion which is now so sedated with a anteriorly located moderate-sized pneumothorax (hydropneumothorax). Note the right-sided effusion exhibits a somewhat lobular configuration which could be secondary to chronic scarring and fibrosis with tethering of the lung to the pleural surface rather than loculated components. Associated mild atelectasis right lower as well as right upper lobes. Vague ground-glass opacities seen in the aerated portions of the upper right upper lobe although significant underlying centrilobular. 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 There is a small to medium size left-sided effusion with significant atelectatic changes of the left entire left lung. Abdominal ascites. Redemonstrated are multiple low-attenuation hepatic lesions. awaiting family decision regarding chest tube or further intervention as recommended by Pulm Edema worsening albumin 1.5 today, repletion not indicated 2/2 poor status and worsening hydropneumothorax morphine 1mg q6 prn pain in LE 2/2 edema Hypotension Secondary to hypoalbuminemia Continue to monitor Abdominal Pain Abd US: low-attenuation lesion L lobe liver. Liver exhibits increased echotexture secondary to fatty infiltration or hepatocellular disease. sp lenomegaly. several tiny echogenic foci adherent to gallbladder wall possibly representing polyps. slight increased renal echotexture. Bladder scans PRN Colace PRN for Constipation Zofran prn History of BPH Flomax 0.4mg PO BID History of HTN Lisinopril 5mg PO daily Holding parameters Poor Nutrition encourage PO intake Hand Engraver consulted Low Microbial Diet Ensure Enlive TID B12 842, wnl Megace 400mg PO BID Prophylaxis: Protonix SCDs contraindicated 2/2 edema; AC contraindicated 2/2 pancytopenia PT/OT DNR/DNI Dispo: Prognosis is very poor. Family discussing hospice options with hospice technical service representative, no decision thus far Discussed with Dr. Lindsay Amato, PGY-1
--- NOTE | 2019-01-19 15:09 | CP.PCM.PN ---
Subjective - Date & Time of Evaluation Date of Evaluation: 01/19/19 Time of Evaluation: 20:00 - Subjective Subjective: Pulmonary follow up, Covering Dr Thurston The Patient was seen and examined at the bedside, Medical records reviewed, and management issues were discussed and formulated with the house staff. Events reviewed Objective - Vital Signs/Intake and Output Vital Signs (last 24 hours): Temp Pulse Resp BP Pulse Ox 97.4 F L 82 20 96/57 L 98 01/19/19 07:35 01/19/19 07:35 01/19/19 07:35 01/19/19 09:30 01/19/19 07:35 Intake and Output: 01/19/19 01/19/19 06:59 18:59 Intake Total 420 300 Balance 420 300 - Medications Medications: Current Medications Acetaminophen (Tylenol 325mg Tab) 650 mg PO Q6 PRN PRN Reason: Pain, moderate (4-7) Last Admin: 01/11/19 19:32 Dose: 650 mg Acetaminophen (Tylenol 325mg Tab) 650 mg PO ONCE PRN PRN Reason: pre med Last Admin: 01/15/19 19:40 Dose: 650 mg Albuterol/Ipratropium (Duoneb 3 Mg/0.5 Mg (3 Ml) Ud) 3 ml INH RQ4 PRN PRN Reason: Shortness of Breath Diphenhydramine HCl (Benadryl) 25 mg IVP ONCE PRN PRN Reason: PRIOR TO TRANSFUSION Last Admin: 01/15/19 19:40 Dose: 25 mg Diphenhydramine HCl (Benadryl) 25 mg PO ONCE PRN PRN Reason: pre med Last Admin: 01/03/19 14:39 Dose: 25 mg Docusate Sodium (Colace) 100 mg PO BID PRN PRN Reason: Constipation Last Admin: 01/16/19 17:31 Dose: 100 mg Furosemide (Lasix) 20 mg PO DAILY [facility] Last Admin: 01/19/19 09:30 Dose: Not Given Furosemide (Lasix) 20 mg IVP ONCE PRN PRN Reason: post transfusion Last Admin: 01/15/19 22:49 Dose: 20 mg Guaifenesin (Robitussin) 200 mg PO Q4H [facility] Last Admin: 01/19/19 12:20 Dose: Not Given Meropenem 1 gm/ Sodium (Chloride) 100 mls @ 100 mls/hr IVPB Q8H [facility]; Protocol Last Admin: 01/19/19 09:31 Dose: 100 mls/hr Micafungin Sodium 100 mg/ (Sodium Chloride) 100 mls @ 100 mls/hr IV Q24H [facility]; Protocol Last Admin: 01/19/19 00:03 Dose: 100 mls/hr Lisinopril (Zestril) 5 mg PO DAILY [facility] Last Admin: 01/19/19 09:29 Dose: 5 mg Megestrol Acetate (Megace) 400 mg PO BID [facility] Last Admin: 01/19/19 09:29 Dose: 400 mg Ondansetron HCl (Zofran Inj) 4 mg IVP Q6H PRN PRN Reason: Nausea/Vomiting Pantoprazole Sodium (Protonix Ec Tab) 40 mg PO DAILY [facility] Last Admin: 01/19/19 09:30 Dose: 40 mg Promethazine HCl (Phenergan Syrup) 6.25 mg PO Q6 PRN PRN Reason: Cough Last Admin: 01/12/19 17:49 Dose: 6.25 mg Saliva Substitute (First Magic Mouthwash) 5 ml PO Q6 [facility] Last Admin: 01/19/19 14:16 Dose: Not Given Scopolamine (Transderm-Scop) 1 patch TD Q3D [facility] Last Admin: 01/17/19 11:36 Dose: 1 patch Tamsulosin HCl (Flomax) 0.4 mg PO BID [facility] Last Admin: 01/19/19 09:29 Dose: 0.4 mg - Labs Labs: 01/19/19 08:55 01/19/19 08:55 PT 15.8 SECONDS (9.7-12.2) H 12/29/18 06:30 INR 1.4 12/29/18 06:30 APTT 23 SECONDS (21-34) 12/29/18 06:30 Assessment and Plan (1) Pancytopenia Status: Acute (2) Pleural effusion, left Status: Acute (3) Pneumonia Status: Acute (4) Lung mass Status: Acute (5) Pneumothorax Status: Acute
--- NOTE | 2019-01-19 17:59 | CP.PCM.PN ---
Subjective - Date & Time of Evaluation Date of Evaluation: 01/19/19 Time of Evaluation: 08:00 - Subjective Subjective: afebrile alert nad denies chest pain less cough no hemoptysis Objective - Vital Signs/Intake and Output Vital Signs (last 24 hours): Temp Pulse Resp BP Pulse Ox 97.8 F 86 20 91/51 L 98 01/19/19 16:12 01/19/19 16:12 01/19/19 16:12 01/19/19 16:12 01/19/19 16:12 Intake and Output: 01/19/19 01/19/19 06:59 18:59 Intake Total 420 300 Balance 420 300 - Medications Medications: Current Medications Acetaminophen (Tylenol 325mg Tab) 650 mg PO Q6 PRN PRN Reason: Pain, moderate (4-7) Last Admin: 01/11/19 19:32 Dose: 650 mg Acetaminophen (Tylenol 325mg Tab) 650 mg PO ONCE PRN PRN Reason: pre med Last Admin: 01/15/19 19:40 Dose: 650 mg Albuterol/Ipratropium (Duoneb 3 Mg/0.5 Mg (3 Ml) Ud) 3 ml INH RQ4 PRN PRN Reason: Shortness of Breath Diphenhydramine HCl (Benadryl) 25 mg IVP ONCE PRN PRN Reason: PRIOR TO TRANSFUSION Last Admin: 01/15/19 19:40 Dose: 25 mg Diphenhydramine HCl (Benadryl) 25 mg PO ONCE PRN PRN Reason: pre med Last Admin: 01/03/19 14:39 Dose: 25 mg Docusate Sodium (Colace) 100 mg PO BID PRN PRN Reason: Constipation Last Admin: 01/16/19 17:31 Dose: 100 mg Furosemide (Lasix) 20 mg PO DAILY [facility] Last Admin: 01/19/19 09:30 Dose: Not Given Furosemide (Lasix) 20 mg IVP ONCE PRN PRN Reason: post transfusion Last Admin: 01/15/19 22:49 Dose: 20 mg Guaifenesin (Robitussin) 200 mg PO Q4H [facility] Last Admin: 01/19/19 16:45 Dose: Not Given Meropenem 1 gm/ Sodium (Chloride) 100 mls @ 100 mls/hr IVPB Q8H [facility]; Protocol Last Admin: 01/19/19 17:28 Dose: 100 mls/hr Micafungin Sodium 100 mg/ (Sodium Chloride) 100 mls @ 100 mls/hr IV Q24H [facility]; Protocol Last Admin: 01/19/19 00:03 Dose: 100 mls/hr Lisinopril (Zestril) 5 mg PO DAILY [facility] Last Admin: 01/19/19 09:29 Dose: 5 mg Megestrol Acetate (Megace) 400 mg PO BID [facility] Last Admin: 01/19/19 17:29 Dose: 400 mg Morphine Sulfate (Morphine) 1 mg IVP Q6H PRN PRN Reason: Pain, severe (8-10) Ondansetron HCl (Zofran Inj) 4 mg IVP Q6H PRN PRN Reason: Nausea/Vomiting Pantoprazole Sodium (Protonix Ec Tab) 40 mg PO DAILY [facility] Last Admin: 01/19/19 09:30 Dose: 40 mg Promethazine HCl (Phenergan Syrup) 6.25 mg PO Q6 PRN PRN Reason: Cough Last Admin: 01/12/19 17:49 Dose: 6.25 mg Saliva Substitute (First Magic Mouthwash) 5 ml PO Q6 [facility] Last Admin: 01/19/19 17:30 Dose: Not Given Scopolamine (Transderm-Scop) 1 patch TD Q3D [facility] Last Admin: 01/17/19 11:36 Dose: 1 patch Tamsulosin HCl (Flomax) 0.4 mg PO BID [facility] Last Admin: 01/19/19 17:29 Dose: 0.4 mg - Labs Labs: 01/19/19 08:55 01/19/19 08:55 PT 15.8 SECONDS (9.7-12.2) H 12/29/18 06:30 INR 1.4 12/29/18 06:30 APTT 23 SECONDS (21-34) 12/29/18 06:30 - Constitutional Appears: Confused, Cachectic, Chronically Ill - Head Exam Head Exam: NORMOCEPHALIC - Eye Exam Eye Exam: absent: Scleral icterus - ENT Exam ENT Exam: Mucous Membranes Dry - Neck Exam Neck Exam: absent: Lymphadenopathy - Respiratory Exam Respiratory Exam: Decreased Breath Sounds, Prolonged Expiratory Phase, Rhonchi - Cardiovascular Exam Cardiovascular Exam: REGULAR RHYTHM, +S1, +S2 - GI/Abdominal Exam GI & Abdominal Exam: Distended - Rectal Exam Rectal Exam: Deferred - Exam Exam: NORMAL INSPECTION - Extremities Exam Extremities Exam: absent: Pedal Edema - Back Exam Back Exam: absent: CVA tenderness (L), CVA tenderness (R) - Neurological Exam Neurological Exam: Alert, Awake Assessment and Plan (1) Pleural effusion, left Status: Acute (2) Pneumonia Status: Acute (3) Pleural effusion Status: Acute (4) AML (acute myeloblastic leukemia) Status: Chronic (5) Pancytopenia Status: Chronic - Assessment and Plan (Free Text) Assessment: CT shows large effusion right side Pulm on board IV antibiotics in progress
--- NOTE | 2019-01-19 22:08 | CP.PCM.PN ---
Subjective - Date & Time of Evaluation Date of Evaluation: 01/19/19 Time of Evaluation: 20:00 - Subjective Subjective: Fatigued Objective - Vital Signs/Intake and Output Vital Signs (last 24 hours): Temp Pulse Resp BP Pulse Ox 97.8 F 86 20 91/51 L 98 01/19/19 16:12 01/19/19 16:12 01/19/19 16:12 01/19/19 16:12 01/19/19 16:12 Intake and Output: 01/19/19 01/20/19 18:59 06:59 Intake Total 300 Balance 300 - Medications Medications: Current Medications Acetaminophen (Tylenol 325mg Tab) 650 mg PO Q6 PRN PRN Reason: Pain, moderate (4-7) Last Admin: 01/11/19 19:32 Dose: 650 mg Acetaminophen (Tylenol 325mg Tab) 650 mg PO ONCE PRN PRN Reason: pre med Last Admin: 01/15/19 19:40 Dose: 650 mg Albuterol/Ipratropium (Duoneb 3 Mg/0.5 Mg (3 Ml) Ud) 3 ml INH RQ4 PRN PRN Reason: Shortness of Breath Diphenhydramine HCl (Benadryl) 25 mg IVP ONCE PRN PRN Reason: PRIOR TO TRANSFUSION Last Admin: 01/15/19 19:40 Dose: 25 mg Diphenhydramine HCl (Benadryl) 25 mg PO ONCE PRN PRN Reason: pre med Last Admin: 01/03/19 14:39 Dose: 25 mg Docusate Sodium (Colace) 100 mg PO BID PRN PRN Reason: Constipation Last Admin: 01/16/19 17:31 Dose: 100 mg Furosemide (Lasix) 20 mg PO DAILY [facility] Last Admin: 01/19/19 09:30 Dose: Not Given Furosemide (Lasix) 20 mg IVP ONCE PRN PRN Reason: post transfusion Last Admin: 01/15/19 22:49 Dose: 20 mg Guaifenesin (Robitussin) 200 mg PO Q4H [facility] Last Admin: 01/19/19 20:26 Dose: Not Given Micafungin Sodium 100 mg/ (Sodium Chloride) 100 mls @ 100 mls/hr IV Q24H [facility]; Protocol Last Admin: 01/19/19 00:03 Dose: 100 mls/hr Cefazolin Sodium/Dextrose (Ancef Iv 1 Gm Duplex) 1 gm in 50 mls @ 100 mls/hr IVPB Q8H [facility]; Protocol Lisinopril (Zestril) 5 mg PO DAILY [facility] Last Admin: 01/19/19 09:29 Dose: 5 mg Megestrol Acetate (Megace) 400 mg PO BID [facility] Last Admin: 01/19/19 17:29 Dose: 400 mg Morphine Sulfate (Morphine) 1 mg IVP Q6H PRN PRN Reason: Pain, severe (8-10) Ondansetron HCl (Zofran Inj) 4 mg IVP Q6H PRN PRN Reason: Nausea/Vomiting Pantoprazole Sodium (Protonix Ec Tab) 40 mg PO DAILY [facility] Last Admin: 01/19/19 09:30 Dose: 40 mg Promethazine HCl (Phenergan Syrup) 6.25 mg PO Q6 PRN PRN Reason: Cough Last Admin: 01/12/19 17:49 Dose: 6.25 mg Saliva Substitute (First Magic Mouthwash) 5 ml PO Q6 [facility] Last Admin: 01/19/19 17:30 Dose: Not Given Scopolamine (Transderm-Scop) 1 patch TD Q3D [facility] Last Admin: 01/17/19 11:36 Dose: 1 patch Tamsulosin HCl (Flomax) 0.4 mg PO BID [facility] Last Admin: 01/19/19 17:29 Dose: 0.4 mg - Labs Labs: 01/19/19 08:55 01/19/19 08:55 PT 15.8 SECONDS (9.7-12.2) H 12/29/18 06:30 INR 1.4 12/29/18 06:30 APTT 23 SECONDS (21-34) 12/29/18 06:30 - Head Exam Head Exam: ATRAUMATIC - Eye Exam Eye Exam: Normal appearance - ENT Exam ENT Exam: Mucous Membranes Dry - Respiratory Exam Respiratory Exam: Decreased Breath Sounds - Cardiovascular Exam Cardiovascular Exam: +S1, +S2 - GI/Abdominal Exam GI & Abdominal Exam: Normal Bowel Sounds Assessment and Plan (1) Pancytopenia Assessment & Plan: secondary to AML transfusion support PRN Status: Chronic (2) AML (acute myeloblastic leukemia) Assessment & Plan: on outpatient decitabine family unsure about hospice DNR/DNI Status: Chronic
[2019-01-19] MEDS: ceFAZolin IV 1 gm in Dextrose 1 GM/50 ML BAG IVPB SCH (22:11)
[2019-01-20] MEDS: Micafungin 100 MG in Sodium Chloride 0.9% 100 ML IV SCH (00:11)
[2019-01-20] MEDS: guaiFENesin 200 mg/10 ml Syrup UD PO SCH ×6 (00:17→20:54)
[2019-01-20] MEDS: Mag&Al/Simet/Diphen/Lido 237 ML KIT PO SCH ×4 (00:17→17:12)
[2019-01-20] MEDS: ceFAZolin IV 1 gm in Dextrose 1 GM/50 ML BAG IVPB SCH ×3 (05:19→21:35)
--- NOTE | 2019-01-20 09:33 | CP.PCM.PN ---
Subjective - Date & Time of Evaluation Date of Evaluation: 01/20/19 Time of Evaluation: 09:00 - Subjective Subjective: Patient examined at bedside with family in room. Pt reports increasing edema, worst in b/l LE and left arm with persistent pain. Pt reports he refused morphine yesterday. Patient reports he has been eating and drinking well. Reports persistent SOB, unchanged from yesterday. Denies further complaints. DESIZING MACHINE BACK TENDER called by nurse for spO2 of 71%. Refer to DESIZING MACHINE BACK TENDER note for further details. Pt confirmed DNR/DNI status. Morphine prn Objective - Vital Signs/Intake and Output Vital Signs (last 24 hours): Temp Pulse Resp BP Pulse Ox 97.9 F 87 20 97/62 L 96 01/20/19 08:06 01/20/19 08:06 01/20/19 08:06 01/20/19 08:06 01/20/19 08:06 Intake and Output: 01/20/19 01/20/19 06:59 18:59 Intake Total 420 Balance 420 - Medications Medications: Current Medications Acetaminophen (Tylenol 325mg Tab) 650 mg PO Q6 PRN PRN Reason: Pain, moderate (4-7) Last Admin: 01/11/19 19:32 Dose: 650 mg Acetaminophen (Tylenol 325mg Tab) 650 mg PO ONCE PRN PRN Reason: pre med Last Admin: 01/15/19 19:40 Dose: 650 mg Albuterol/Ipratropium (Duoneb 3 Mg/0.5 Mg (3 Ml) Ud) 3 ml INH RQ4 PRN PRN Reason: Shortness of Breath Diphenhydramine HCl (Benadryl) 25 mg IVP ONCE PRN PRN Reason: PRIOR TO TRANSFUSION Last Admin: 01/15/19 19:40 Dose: 25 mg Diphenhydramine HCl (Benadryl) 25 mg PO ONCE PRN PRN Reason: pre med Last Admin: 01/03/19 14:39 Dose: 25 mg Docusate Sodium (Colace) 100 mg PO BID PRN PRN Reason: Constipation Last Admin: 01/16/19 17:31 Dose: 100 mg Furosemide (Lasix) 20 mg PO DAILY [facility] Last Admin: 01/19/19 09:30 Dose: Not Given Furosemide (Lasix) 20 mg IVP ONCE PRN PRN Reason: post transfusion Last Admin: 01/15/19 22:49 Dose: 20 mg Guaifenesin (Robitussin) 200 mg PO Q4H [facility] Last Admin: 01/20/19 08:05 Dose: Not Given Micafungin Sodium 100 mg/ (Sodium Chloride) 100 mls @ 100 mls/hr IV Q24H [facility]; Protocol Last Admin: 01/20/19 00:11 Dose: 100 mls/hr Cefazolin Sodium/Dextrose (Ancef Iv 1 Gm Duplex) 1 gm in 50 mls @ 100 mls/hr IVPB Q8H [facility]; Protocol Last Admin: 01/20/19 05:19 Dose: 100 mls/hr Lisinopril (Zestril) 5 mg PO DAILY [facility] Last Admin: 01/19/19 09:29 Dose: 5 mg Megestrol Acetate (Megace) 400 mg PO BID [facility] Last Admin: 01/19/19 17:29 Dose: 400 mg Morphine Sulfate (Morphine) 1 mg IVP Q6H PRN PRN Reason: Pain, severe (8-10) Ondansetron HCl (Zofran Inj) 4 mg IVP Q6H PRN PRN Reason: Nausea/Vomiting Pantoprazole Sodium (Protonix Ec Tab) 40 mg PO DAILY [facility] Last Admin: 01/19/19 09:30 Dose: 40 mg Promethazine HCl (Phenergan Syrup) 6.25 mg PO Q6 PRN PRN Reason: Cough Last Admin: 01/12/19 17:49 Dose: 6.25 mg Saliva Substitute (First Magic Mouthwash) 5 ml PO Q6 [facility] Last Admin: 01/20/19 05:17 Dose: Not Given Scopolamine (Transderm-Scop) 1 patch TD Q3D [facility] Last Admin: 01/17/19 11:36 Dose: 1 patch Tamsulosin HCl (Flomax) 0.4 mg PO BID [facility] Last Admin: 01/19/19 17:29 Dose: 0.4 mg - Labs Labs: 01/19/19 08:55 01/19/19 08:55 PT 15.8 SECONDS (9.7-12.2) H 12/29/18 06:30 INR 1.4 12/29/18 06:30 APTT 23 SECONDS (21-34) 12/29/18 06:30 - Constitutional Appears: Non-toxic, No Acute Distress, Cachectic, Chronically Ill - Head Exam Head Exam: ATRAUMATIC, NORMAL INSPECTION, NORMOCEPHALIC - Eye Exam Eye Exam: EOMI, Normal appearance - ENT Exam ENT Exam: Mucous Membranes Dry, Normal Exam - Neck Exam Neck Exam: Normal Inspection - Respiratory Exam Respiratory Exam: Accessory Muscle Use, Decreased Breath Sounds, Rales - Cardiovascular Exam Cardiovascular Exam: REGULAR RHYTHM, +S1, +S2 - GI/Abdominal Exam GI & Abdominal Exam: Soft, Normal Bowel Sounds. absent: Tenderness - Extremities Exam Extremities Exam: Pedal Edema (3+ bilateral), Tenderness - Neurological Exam Neurological Exam: Alert, Awake - Psychiatric Exam Psychiatric exam: Depressed - Skin Skin Exam: Dry, Intact, Pallor, Warm Assessment and Plan - Assessment and Plan (Free Text) Assessment: 78 year old male with history of COPD, AML on chemo, pancytopenia 2/2 AML, BPH, HTN admitted for treatment of pancytopenia with new right sided hydropneumothorax Plan: Pancytopenia 2/[address] Bobby consulted Zofran 4mg Q6 PRN Transfuse PRN Right midline inserted 01/17/19 PICC not inserted 2/2 pancytopenia Patient refusing blood draw this morning Healthcare Associated Pneumonia, with left sided Infiltrates Right sided Pleural effusion Right sided hydropneumothorax Cough Direct Support Professional Caregiver Dr. Thurston consulted ID Dr. Ferrari consulted Vancomycin d/c-ed per ID Merem 1g q8h Micofungin 100mg IV q24h (12/26/18) Duonebs q4 prn Lasix 20mg PO daily Robitussin 200mg q4h Phenergan 6.25mg po q6 prn Scopolamine patch Mucinex 600mg PO BID Magic mouthwash Chest CT (01/18/19) shows There has been marked increase in size right-sided effusion which is now so sedated with a anteriorly located moderate-sized pneumothorax (hydropneumothorax). Note the right-sided effusion exhibits a somewhat lobular configuration which could be secondary to chronic scarring and fibrosis with tethering of the lung to the pleural surface rather than loculated components. Associated mild atelectasis right lower as well as right upper lobes. Vague ground-glass opacities seen in the aerated portions of the upper right upper lobe although significant underlying centrilobular. 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 There is a small to medium size left-sided effusion with significant atelectatic changes of the left entire left lung. Abdominal ascites. Red emonstrated are multiple low-attenuation hepatic lesions. awaiting family decision regarding chest tube or further intervention as recommended by Pulm Edema worsening albumin 1.5 yesterday, repletion not indicated 2/2 poor status and worsening hydropneumothorax morphine 1mg q6 prn pain in LE 2/2 edema Hypotension Secondary to hypoalbuminemia Continue to monitor Abdominal Pain Abd US: low-attenuation lesion L lobe liver. Liver exhibits increased echotexture secondary to fatty infiltration or hepatocellular disease. splenomegaly. several tiny echogenic foci adherent to gallbladder wall possibly representing polyps. slight increased renal echotexture. Bladder scans PRN Colace PRN for Constipation Zofran prn History of BPH Flomax 0.4mg PO BID History of HTN Lisinopril 5mg PO daily Holding parameters Poor Nutrition encourage PO intake Camp Housekeeper consulted Low Microbial Diet Ensure Enlive TID B12 842, wnl Megace 400mg PO BID Prophylaxis: Protonix SCDs contraindicated 2/2 edema; AC contraindicated 2/2 pancytopenia PT/OT DNR/DNI Dispo: Prognosis is very poor. Family discussing hospice options with hospice special service representative, no decision thus far Discussed with Dr. Lindsay Amato, PGY-1
--- NOTE | 2019-01-20 10:49 | PCM.RRT ---
LODGING HOUSE KEEPER Nurses Assessment - Situation Date: 01/20/19 Time LODGING HOUSE KEEPER was called: 10:48 LODGING HOUSE KEEPER Responder Arrival Time:: 10:48 LODGING HOUSE KEEPER Location:: 3T Med/Oncology [employer]ODGING HOUSE KEEPER Reason for Call: O2 Saturation below 90% LODGING HOUSE KEEPER Called By: RN - Respiratory LODGING HOUSE KEEPER Delivery Method: Venturi Mask @% (55% sattin at 90%) - Ventilator Settings FIO2 (% Oxygen): 40 Plan - Assessment of Findings&Treatment Plan O2 sat was high 70s on NC, pt put on venti mask @ 55% Pt given Solumedrol 125 IVP stat Pt improved, satting in 90s Pt still DNR DNI
[2019-01-20] MEDS: Megestrol Acetate 40 mg/ml Cup PO SCH ×2 (11:00→17:11)
[2019-01-20] MEDS: Pantoprazole 40 mg EC Tab PO SCH (11:00)
--- NOTE | 2019-01-20 14:09 | PCM.RRT ---
ENVIRONMENTAL MARKETING REPRESENTATIVE Nurses Assessment - Situation Date: 01/20/19 Time ENVIRONMENTAL MARKETING REPRESENTATIVE was called: 10:43 ENVIRONMENTAL MARKETING REPRESENTATIVE Responder Arrival Time:: 10:44 ENVIRONMENTAL MARKETING REPRESENTATIVE Location:: Med/Oncology Room Number: 367 ENVIRONMENTAL MARKETING REPRESENTATIVE Reason for Call: O2 Saturation below 90%, Looks Sicker ENVIRONMENTAL MARKETING REPRESENTATIVE Called By: RN - IV IV Inserted during ENVIRONMENTAL MARKETING REPRESENTATIVE?: No - Respiratory ENVIRONMENTAL MARKETING REPRESENTATIVE Delivery Method: Non Rebreather @% Oxygen Flow Rate: 15 Received Nebulizer Treatments: No Was the Patient Ventilated with Bag/Mask 100% O2?: No Secretions Suctioned?: No Was the Patient Intubated?: No Was the Patient Placed on a Ventilator?: No - Ventilator Settings FIO2 (% Oxygen): 40 - Medication Medications Administered During ENVIRONMENTAL MARKETING REPRESENTATIVE: solumedrol 125 mg IVP. Morphine 1 mg IVP - Diagnostic Test Ordered EKG: No Chest X-Ray: No CT Scan: No CPR started during ENVIRONMENTAL MARKETING REPRESENTATIVE?: No - Vital Signs Vital Signs: Rapid Response Vital Sign Blood Pressure 77/45 Pulse Rate 112 Respiratory Rate 32 Temperature 98.2 F Oxygen Saturation 71 - Sepsis Screen Part 1 Sepsis Screen Part 1: Hypotensive - Time ENVIRONMENTAL MARKETING REPRESENTATIVE Ended Time ENVIRONMENTAL MARKETING REPRESENTATIVE Ended: 11:10 - Vital Signs at end of ENVIRONMENTAL MARKETING REPRESENTATIVE Vital Signs at end of ENVIRONMENTAL MARKETING REPRESENTATIVE: Rapid Response End Vital Sign Blood Pressure 74/43 Pulse Rate 114 Respiratory Rate 30 Temperature 98.2 F O2 Sat by Pulse Oximetry 100 - Recommendations 5) ENVIRONMENTAL MARKETING REPRESENTATIVE Level of Care Recommendations: Remain in current setting Notifications: Attending Physician, Consultations, Family or Designated Caregiver I.Reason for ENVIRONMENTAL MARKETING REPRESENTATIVE - A) Acute Change in Patient: (Select all that apply): Acute change in SpO2 less - Neurological Status (Select all that apply): Lethargic - Respiratory Oxygen Delivery Method: Non Rebreather @% Oxygen Flow Rate: 15 - Constitutional Appears: In Acute Distress, Chronically Ill - Head Head Exam: ATRAUMATIC, NORMAL INSPECTION, NORMOCEPHALIC - Eyes Eye Exam: EOMI, Normal appearance - Respiratory Exam Respiratory Exam: Accessory Muscle Use, Decreased Breath Sounds, Respiratory Distress - Cardiovascular Exam Cardiovascular Exam: Tachycardia, +S1, +S2 - GI/Abdominal Exam GI & Abdominal Exam: Soft, Normal Bowel Sounds. absent: Tenderness - Neurological Exam Neurological Exam: Awake - Extremities Exam Extremities Exam: Pedal Edema, Tenderness Plan - Assessment of Findings&Treatment Plan ENVIRONMENTAL MARKETING REPRESENTATIVE called by nurse after noticed patient in respiratory distress and vitals taken revealed a BP of 77/45 and O2 of 71% on 2L NC. Patient was placed on non-rebreather and given 125mg ivp solumedrol with improvement in O2 saturation into the 90s. Discussion held with pt in regards to wishes for DNR/DNI. Pt confirmed status. Discussion with daughters on phone confirm same. Patient agreeable to morphine PRN for comfort DNR/DNI Morphine 1mg q6h PRN Discussed w/ Dr. Lindsay Amato, PGY-1
[2019-01-20 14:21] LABS: EOS % 0.6 % (0.0-4.0); HEMOGLOBIN 7.2 g/dL (12.0-18.0); LYMPH # 0.1 K/uL (1.0-4.3); LYMPH % 72.3 % (20.0-40.0); MEAN CELL VOLUME 95.6 fL (80.0-94.0); MEAN CORPUSCULAR HEMOGLOBIN 30.3 pg (27.0-31.0); MEAN CORPUSCULAR HGB CONC 31.7 g/dL (33.0-37.0); MEAN PLATELET VOLUME 8.8 fL (7.2-11.7); NEUT % 16.1 % (50.0-75.0); NRBC % 1.1 % (0.0-2.0); RBC 2.38 Mil/uL (4.40-5.90); RED CELL DISTRIBUTION WIDTH 13.1 % (11.5-14.5)
[2019-01-20 14:30] LABS: ALB/GLOB RATIO 0.6 (1.0-2.1); ALBUMIN 1.6 g/dL (3.5-5.0); ALT/SGPT 16 U/L (21-72); AST/SGOT 10 U/L (17-59); BLOOD UREA NITROGEN 22 mg/dL (9-20); GFR NON-AFRICAN AMERICAN > 60
[2019-01-20 14:44] LABS: WHITE BLOOD COUNT 0.1 K/uL (4.8-10.8)
--- NOTE | 2019-01-20 16:39 | CP.PCM.PN ---
Subjective - Date & Time of Evaluation Date of Evaluation: 01/20/19 Time of Evaluation: 11:30 - Subjective Subjective: Patient seen and examined at bedside. Rapid response called for patient because he was complaining of SOB with O2 sat high 70s. Non-rebreather mask placed. Patient does not want any aggressive intervention and started on morphine Patient DNR/DNI Prognosis poor Objective - Vital Signs/Intake and Output Vital Signs (last 24 hours): Temp Pulse Resp BP Pulse Ox 98 F 98 H 20 107/61 100 01/20/19 16:00 01/20/19 16:00 01/20/19 16:00 01/20/19 16:00 01/20/19 16:00 Intake and Output: 01/20/19 01/20/19 06:59 18:59 Intake Total 420 120 Balance 420 120 - Medications Medications: Current Medications Acetaminophen (Tylenol 325mg Tab) 650 mg PO Q6 PRN PRN Reason: Pain, moderate (4-7) Last Admin: 01/11/19 19:32 Dose: 650 mg Acetaminophen (Tylenol 325mg Tab) 650 mg PO ONCE PRN PRN Reason: pre med Last Admin: 01/15/19 19:40 Dose: 650 mg Albuterol/Ipratropium (Duoneb 3 Mg/0.5 Mg (3 Ml) Ud) 3 ml INH RQ4 PRN PRN Reason: Shortness of Breath Diphenhydramine HCl (Benadryl) 25 mg IVP ONCE PRN PRN Reason: PRIOR TO TRANSFUSION Last Admin: 01/15/19 19:40 Dose: 25 mg Diphenhydramine HCl (Benadryl) 25 mg PO ONCE PRN PRN Reason: pre med Last Admin: 01/03/19 14:39 Dose: 25 mg Docusate Sodium (Colace) 100 mg PO BID PRN PRN Reason: Constipation Last Admin: 01/16/19 17:31 Dose: 100 mg Furosemide (Lasix) 20 mg PO DAILY [facility] Last Admin: 01/20/19 11:00 Dose: Not Given Furosemide (Lasix) 20 mg IVP ONCE PRN PRN Reason: post transfusion Last Admin: 01/15/19 22:49 Dose: 20 mg Guaifenesin (Robitussin) 200 mg PO Q4H [facility] Last Admin: 01/20/19 11:43 Dose: Not Given Micafungin Sodium 100 mg/ (Sodium Chloride) 100 mls @ 100 mls/hr IV Q24H [facility]; Protocol Last Admin: 01/20/19 00:11 Dose: 100 mls/hr Cefazolin Sodium/Dextrose (Ancef Iv 1 Gm Duplex) 1 gm in 50 mls @ 100 mls/hr IVPB Q8H [facility]; Protocol Last Admin: 01/20/19 14:42 Dose: 100 mls/hr Lisinopril (Zestril) 5 mg PO DAILY [facility] Last Admin: 01/20/19 11:00 Dose: Not Given Megestrol Acetate (Megace) 400 mg PO BID [facility] Last Admin: 01/20/19 11:00 Dose: Not Given Morphine Sulfate (Morphine) 1 mg IVP Q6H PRN PRN Reason: Pain, severe (8-10) Last Admin: 01/20/19 11:06 Dose: 1 mg Ondansetron HCl (Zofran Inj) 4 mg IVP Q6H PRN PRN Reason: Nausea/Vomiting Pantoprazole Sodium (Protonix Ec Tab) 40 mg PO DAILY [facility] Last Admin: 01/20/19 11:00 Dose: Not Given Promethazine HCl (Phenergan Syrup) 6.25 mg PO Q6 PRN PRN Reason: Cough Last Admin: 01/12/19 17:49 Dose: 6.25 mg Saliva Substitute (First Magic Mouthwash) 5 ml PO Q6 [facility] Last Admin: 01/20/19 11:40 Dose: Not Given Scopolamine (Transderm-Scop) 1 patch TD Q3D [facility] Last Admin: 01/20/19 11:57 Dose: 1 patch Tamsulosin HCl (Flomax) 0.4 mg PO BID [facility] Last Admin: 01/20/19 11:00 Dose: Not Given - Labs Labs: 01/20/19 14:06 01/20/19 14:06 PT 15.8 SECONDS (9.7-12.2) H 12/29/18 06:30 INR 1.4 12/29/18 06:30 APTT 23 SECONDS (21-34) 12/29/18 06:30 Assessment and Plan (1) Pneumonia Status: Acute (2) Pancytopenia Status: Acute (3) Pleural effusion, left Status: Acute
--- NOTE | 2019-01-20 18:29 | CP.PCM.PN ---
Subjective - Date & Time of Evaluation Date of Evaluation: 01/20/19 Time of Evaluation: 15:00 - Subjective Subjective: Events noted, more comfortable on non rebreather daughter at bedside Objective - Vital Signs/Intake and Output Vital Signs (last 24 hours): Temp Pulse Resp BP Pulse Ox 98 F 98 H 20 107/61 100 01/20/19 16:00 01/20/19 16:00 01/20/19 16:00 01/20/19 16:00 01/20/19 16:00 Intake and Output: 01/20/19 01/20/19 06:59 18:59 Intake Total 420 120 Balance 420 120 - Medications Medications: Current Medications Acetaminophen (Tylenol 325mg Tab) 650 mg PO Q6 PRN PRN Reason: Pain, moderate (4-7) Last Admin: 01/11/19 19:32 Dose: 650 mg Acetaminophen (Tylenol 325mg Tab) 650 mg PO ONCE PRN PRN Reason: pre med Last Admin: 01/15/19 19:40 Dose: 650 mg Albuterol/Ipratropium (Duoneb 3 Mg/0.5 Mg (3 Ml) Ud) 3 ml INH RQ4 PRN PRN Reason: Shortness of Breath Diphenhydramine HCl (Benadryl) 25 mg IVP ONCE PRN PRN Reason: PRIOR TO TRANSFUSION Last Admin: 01/15/19 19:40 Dose: 25 mg Diphenhydramine HCl (Benadryl) 25 mg PO ONCE PRN PRN Reason: pre med Last Admin: 01/03/19 14:39 Dose: 25 mg Docusate Sodium (Colace) 100 mg PO BID PRN PRN Reason: Constipation Last Admin: 01/16/19 17:31 Dose: 100 mg Furosemide (Lasix) 20 mg PO DAILY [facility] Last Admin: 01/20/19 11:00 Dose: Not Given Furosemide (Lasix) 20 mg IVP ONCE PRN PRN Reason: post transfusion Last Admin: 01/15/19 22:49 Dose: 20 mg Guaifenesin (Robitussin) 200 mg PO Q4H [facility] Last Admin: 01/20/19 16:55 Dose: Not Given Micafungin Sodium 100 mg/ (Sodium Chloride) 100 mls @ 100 mls/hr IV Q24H [facility]; Protocol Last Admin: 01/20/19 00:11 Dose: 100 mls/hr Cefazolin Sodium/Dextrose (Ancef Iv 1 Gm Duplex) 1 gm in 50 mls @ 100 mls/hr IVPB Q8H [facility]; Protocol Last Admin: 01/20/19 14:42 Dose: 100 mls/hr Lisinopril (Zestril) 5 mg PO DAILY [facility] Last Admin: 01/20/19 11:00 Dose: Not Given Megestrol Acetate (Megace) 400 mg PO BID [facility] Last Admin: 01/20/19 17:11 Dose: 400 mg Morphine Sulfate (Morphine) 1 mg IVP Q6H PRN PRN Reason: Pain, severe (8-10) Last Admin: 01/20/19 11:06 Dose: 1 mg Ondansetron HCl (Zofran Inj) 4 mg IVP Q6H PRN PRN Reason: Nausea/Vomiting Pantoprazole Sodium (Protonix Ec Tab) 40 mg PO DAILY [facility] Last Admin: 01/20/19 11:00 Dose: Not Given Promethazine HCl (Phenergan Syrup) 6.25 mg PO Q6 PRN PRN Reason: Cough Last Admin: 01/12/19 17:49 Dose: 6.25 mg Saliva Substitute (First Magic Mouthwash) 5 ml PO Q6 [facility] Last Admin: 01/20/19 17:12 Dose: Not Given Scopolamine (Transderm-Scop) 1 patch TD Q3D [facility] Last Admin: 01/20/19 11:57 Dose: 1 patch Tamsulosin HCl (Flomax) 0.4 mg PO BID [facility] Last Admin: 01/20/19 17:11 Dose: 0.4 mg - Labs Labs: 01/20/19 14:06 01/20/19 14:06 PT 15.8 SECONDS (9.7-12.2) H 12/29/18 06:30 INR 1.4 12/29/18 06:30 APTT 23 SECONDS (21-34) 12/29/18 06:30 - Constitutional Appears: Cachectic - Head Exam Head Exam: ATRAUMATIC - Eye Exam Eye Exam: Normal appearance - ENT Exam ENT Exam: Mucous Membranes Dry - Respiratory Exam Respiratory Exam: NORMAL BREATHING PATTERN - Cardiovascular Exam Cardiovascular Exam: +S1, +S2 - GI/Abdominal Exam GI & Abdominal Exam: Normal Bowel Sounds Assessment and Plan (1) Pancytopenia Assessment & Plan: secondary to AML transfusion support PRN Status: Chronic (2) AML (acute myeloblastic leukemia) Assessment & Plan: supportive care, transfusion support DNR/DNI Status: Chronic
[2019-01-21] MEDS: Micafungin 100 MG in Sodium Chloride 0.9% 100 ML IV SCH (00:09)
[2019-01-21] MEDS: guaiFENesin 200 mg/10 ml Syrup UD PO SCH ×6 (00:10→20:21)
[2019-01-21] MEDS: Mag&Al/Simet/Diphen/Lido 237 ML KIT PO SCH ×4 (00:10→18:03)
[2019-01-21] MEDS: ceFAZolin IV 1 gm in Dextrose 1 GM/50 ML BAG IVPB SCH ×2 (05:11→13:45)
[2019-01-21] MEDS: Megestrol Acetate 40 mg/ml Cup PO SCH ×2 (09:41→18:03)
[2019-01-21] MEDS: Pantoprazole 40 mg EC Tab PO SCH (09:41)
--- NOTE | 2019-01-21 10:09 | CP.PCM.PN ---
Subjective - Date & Time of Evaluation Date of Evaluation: 01/21/19 Time of Evaluation: 09:00 - Subjective Subjective: Patient seen and examined On 100% nonrebreather mask In no respiratory distress Objective - Vital Signs/Intake and Output Vital Signs (last 24 hours): Temp Pulse Resp BP Pulse Ox 97.2 F L 99 H 20 112/76 100 01/21/19 08:00 01/21/19 08:00 01/21/19 08:00 01/21/19 09:41 01/21/19 08:00 Intake and Output: 01/21/19 01/21/19 06:59 18:59 Intake Total 300 Output Total 2 Balance 298 - Medications Medications: Current Medications Acetaminophen (Tylenol 325mg Tab) 650 mg PO Q6 PRN PRN Reason: Pain, moderate (4-7) Last Admin: 01/11/19 19:32 Dose: 650 mg Acetaminophen (Tylenol 325mg Tab) 650 mg PO ONCE PRN PRN Reason: pre med Last Admin: 01/15/19 19:40 Dose: 650 mg Albuterol/Ipratropium (Duoneb 3 Mg/0.5 Mg (3 Ml) Ud) 3 ml INH RQ4 PRN PRN Reason: Shortness of Breath Diphenhydramine HCl (Benadryl) 25 mg IVP ONCE PRN PRN Reason: PRIOR TO TRANSFUSION Last Admin: 01/15/19 19:40 Dose: 25 mg Diphenhydramine HCl (Benadryl) 25 mg PO ONCE PRN PRN Reason: pre med Last Admin: 01/03/19 14:39 Dose: 25 mg Docusate Sodium (Colace) 100 mg PO BID PRN PRN Reason: Constipation Last Admin: 01/16/19 17:31 Dose: 100 mg Furosemide (Lasix) 20 mg PO DAILY [facility] Last Admin: 01/21/19 09:41 Dose: 20 mg Furosemide (Lasix) 20 mg IVP ONCE PRN PRN Reason: post transfusion Last Admin: 01/15/19 22:49 Dose: 20 mg Guaifenesin (Robitussin) 200 mg PO Q4H [facility] Last Admin: 01/21/19 08:37 Dose: Not Given Micafungin Sodium 100 mg/ (Sodium Chloride) 100 mls @ 100 mls/hr IV Q24H [facility]; Protocol Last Admin: 01/21/19 00:09 Dose: 100 mls/hr Cefazolin Sodium/Dextrose (Ancef Iv 1 Gm Duplex) 1 gm in 50 mls @ 100 mls/hr IVPB Q8H [facility]; Protocol Last Admin: 01/21/19 05:11 Dose: 100 mls/hr Lisinopril (Zestril) 5 mg PO DAILY [facility] Last Admin: 01/21/19 09:41 Dose: 5 mg Megestrol Acetate (Megace) 400 mg PO BID [facility] Last Admin: 01/21/19 09:41 Dose: Not Given Morphine Sulfate (Morphine) 1 mg IVP Q6H PRN PRN Reason: Pain, severe (8-10) Last Admin: 01/20/19 11:06 Dose: 1 mg Ondansetron HCl (Zofran Inj) 4 mg IVP Q6H PRN PRN Reason: Nausea/Vomiting Pantoprazole Sodium (Protonix Ec Tab) 40 mg PO DAILY [facility] Last Admin: 01/21/19 09:41 Dose: 40 mg Promethazine HCl (Phenergan Syrup) 6.25 mg PO Q6 PRN PRN Reason: Cough Last Admin: 01/12/19 17:49 Dose: 6.25 mg Saliva Substitute (First Magic Mouthwash) 5 ml PO Q6 [facility] Last Admin: 01/21/19 05:12 Dose: Not Given Scopolamine (Transderm-Scop) 1 patch TD Q3D [facility] Last Admin: 01/20/19 11:57 Dose: 1 patch Tamsulosin HCl (Flomax) 0.4 mg PO BID [facility] Last Admin: 01/21/19 09:43 Dose: 0.4 mg - Labs Labs: 01/20/19 14:06 01/20/19 14:06 PT 15.8 SECONDS (9.7-12.2) H 12/29/18 06:30 INR 1.4 12/29/18 06:30 APTT 23 SECONDS (21-34) 12/29/18 06:30 - Head Exam Head Exam: ATRAUMATIC, NORMOCEPHALIC - ENT Exam ENT Exam: Mucous Membranes Dry - Respiratory Exam Respiratory Exam: Decreased Breath Sounds - Cardiovascular Exam Cardiovascular Exam: REGULAR RHYTHM Assessment and Plan (1) Pancytopenia Assessment & Plan: Comfort measures On morphine Continue 100% nonrebreather mask Prognosis poor Patient DNR/DNI Status: Acute (2) Pneumonia Status: Acute (3) Pleural effusion, left Assessment & Plan: pigtail cath by IR Status: Acute
[2019-01-21 11:52] LABS: EOS % 0.9 % (0.0-4.0); HEMOGLOBIN 7.2 g/dL (12.0-18.0); LYMPH # 0.2 K/uL (1.0-4.3); LYMPH % 77.2 % (20.0-40.0); MEAN CELL VOLUME 94.9 fL (80.0-94.0); MEAN CORPUSCULAR HGB CONC 32.7 g/dL (33.0-37.0); MONO % 5.4 % (0.0-10.0); NEUT % 16.5 % (50.0-75.0); NRBC % 1.2 % (0.0-2.0); RBC 2.32 Mil/uL (4.40-5.90); RED CELL DISTRIBUTION WIDTH 12.9 % (11.5-14.5)
[2019-01-21 11:59] LABS: INR 1.4; PROTHROMBIN TIME 14.8 SECONDS (9.7-12.2)
[2019-01-21 12:00] LABS: WHITE BLOOD COUNT 0.3 K/uL (4.8-10.8)
[2019-01-21 12:01] LABS: BLOOD UREA NITROGEN 28 mg/dL (9-20); CALCIUM 8.3 mg/dl (8.6-10.4); GFR NON-AFRICAN AMERICAN > 60
[2019-01-21 12:02] LABS: ALB/GLOB RATIO 0.7 (1.0-2.1); ALBUMIN 1.7 g/dL (3.5-5.0); ALT/SGPT 12 U/L (21-72); AST/SGOT 10 U/L (17-59)
--- NOTE | 2019-01-21 12:33 | PCM.SURG1 ---
Surgeon's Initial Post Op Note - Surgeon's Notes Surgeon: Mark Garrison MD Corporate Accountant: NONE Type of Anesthesia: Local Pre-Operative Diagnosis: Right hydropneumothorax Operative Findings: US showed right pleural effusion Post-Operative Diagnosis: Right hydropneumothorax Operation Performed: US guided right pleural drainage catheter placement Specimen/Specimens Removed: NONE Estimated Blood Loss: EBL {In ML}: 0 Blood Products Given: N/A Drains Used: Chest Tubes Post-Op Condition: Fair Date of Surgery/Procedure: 01/21/19 Time of Surgery/Procedure: 12:30
--- NOTE | 2019-01-21 12:59 | CP.PCM.PN ---
Subjective - Date & Time of Evaluation Date of Evaluation: 01/21/19 Time of Evaluation: 12:00 - Subjective Subjective: Breathing better s/p pigtail catheter Objective - Vital Signs/Intake and Output Vital Signs (last 24 hours): Temp Pulse Resp BP Pulse Ox 97.2 F L 99 H 20 112/76 100 01/21/19 08:00 01/21/19 08:00 01/21/19 08:00 01/21/19 09:41 01/21/19 08:00 Intake and Output: 01/21/19 01/21/19 06:59 18:59 Intake Total 300 Output Total 2 900 Balance 298 -900 - Medications Medications: Current Medications Acetaminophen (Tylenol 325mg Tab) 650 mg PO Q6 PRN PRN Reason: Pain, moderate (4-7) Last Admin: 01/11/19 19:32 Dose: 650 mg Acetaminophen (Tylenol 325mg Tab) 650 mg PO ONCE PRN PRN Reason: pre med Last Admin: 01/15/19 19:40 Dose: 650 mg Albuterol/Ipratropium (Duoneb 3 Mg/0.5 Mg (3 Ml) Ud) 3 ml INH RQ4 PRN PRN Reason: Shortness of Breath Diphenhydramine HCl (Benadryl) 25 mg IVP ONCE PRN PRN Reason: PRIOR TO TRANSFUSION Last Admin: 01/15/19 19:40 Dose: 25 mg Diphenhydramine HCl (Benadryl) 25 mg PO ONCE PRN PRN Reason: pre med Last Admin: 01/03/19 14:39 Dose: 25 mg Docusate Sodium (Colace) 100 mg PO BID PRN PRN Reason: Constipation Last Admin: 01/16/19 17:31 Dose: 100 mg Furosemide (Lasix) 20 mg PO DAILY [facility] Last Admin: 01/21/19 09:41 Dose: 20 mg Furosemide (Lasix) 20 mg IVP ONCE PRN PRN Reason: post transfusion Last Admin: 01/15/19 22:49 Dose: 20 mg Guaifenesin (Robitussin) 200 mg PO Q4H [facility] Last Admin: 01/21/19 08:37 Dose: Not Given Micafungin Sodium 100 mg/ (Sodium Chloride) 100 mls @ 100 mls/hr IV Q24H [facility]; Protocol Last Admin: 01/21/19 00:09 Dose: 100 mls/hr Cefazolin Sodium/Dextrose (Ancef Iv 1 Gm Duplex) 1 gm in 50 mls @ 100 mls/hr IVPB Q8H [facility]; Protocol Last Admin: 01/21/19 05:11 Dose: 100 mls/hr Lisinopril (Zestril) 5 mg PO DAILY [facility] Last Admin: 01/21/19 09:41 Dose: 5 mg Megestrol Acetate (Megace) 400 mg PO BID [facility] Last Admin: 01/21/19 09:41 Dose: Not Given Morphine Sulfate (Morphine) 1 mg IVP Q6H PRN PRN Reason: Pain, severe (8-10) Last Admin: 01/20/19 11:06 Dose: 1 mg Ondansetron HCl (Zofran Inj) 4 mg IVP Q6H PRN PRN Reason: Nausea/Vomiting Pantoprazole Sodium (Protonix Ec Tab) 40 mg PO DAILY [facility] Last Admin: 01/21/19 09:41 Dose: 40 mg Promethazine HCl (Phenergan Syrup) 6.25 mg PO Q6 PRN PRN Reason: Cough Last Admin: 01/12/19 17:49 Dose: 6.25 mg Saliva Substitute (First Magic Mouthwash) 5 ml PO Q6 [facility] Last Admin: 01/21/19 05:12 Dose: Not Given Scopolamine (Transderm-Scop) 1 patch TD Q3D [facility] Last Admin: 01/20/19 11:57 Dose: 1 patch Tamsulosin HCl (Flomax) 0.4 mg PO BID [facility] Last Admin: 01/21/19 09:43 Dose: 0.4 mg - Labs Labs: 01/21/19 11:03 01/21/19 11:03 PT 14.8 SECONDS (9.7-12.2) H 01/21/19 11:03 INR 1.4 01/21/19 11:03 APTT 28 SECONDS (21-34) 01/21/19 11:03 - Head Exam Head Exam: ATRAUMATIC - Eye Exam Eye Exam: Normal appearance - ENT Exam ENT Exam: Mucous Membranes Dry - Respiratory Exam Respiratory Exam: NORMAL BREATHING PATTERN - Cardiovascular Exam Cardiovascular Exam: +S1, +S2 - GI/Abdominal Exam GI & Abdominal Exam: Normal Bowel Sounds Assessment and Plan (1) Pancytopenia Assessment & Plan: secondary to AML transfusion support Status: Chronic (2) AML (acute myeloblastic leukemia) Assessment & Plan: supportive care transfusion support Status: Chronic
--- NOTE | 2019-01-21 14:44 | RAD ---
Date of service: 01/21/2019 HISTORY: s/p pigtail insertion (right) COMPARISON: CT chest without contrast from 01/18/2019. FINDINGS: LUNGS: There is compressive atelectasis of the right lung. There is redemonstration of chronic scarring and fibrosis in both lungs. There is low lung volume on the left and shift of mediastinum and trachea to the left. PLEURA: Status post right pigtail catheter placement, there is persistent moderate right pneumothorax. CARDIOVASCULAR: The heart is normal in size. No aortic atherosclerotic calcifications present. OSSEOUS STRUCTURES: Within normal limits for the patient's age. VISUALIZED UPPER ABDOMEN: Normal. OTHER FINDINGS: None. IMPRESSION: Status post right pigtail catheter placement, persistent moderate pneumothorax. No other significant interval change. These findings were discussed with nurse Jennifer Chun on 01/21/2019 at 2:15 p.m.
--- NOTE | 2019-01-21 15:13 | CP.PCM.PN ---
Subjective - Date & Time of Evaluation Date of Evaluation: 01/21/19 Time of Evaluation: 15:09 - Subjective Subjective: Medicine Note for Dr. Montoya's Service Patient was seen and examined at bedside. Patient was clearly in respiratory distress. I spoke extensively with and daughter Sameera. I reviewed the CT Scan with them and showed the extent of the bilateral effusions. Family agreed, IR was consulted for pigtail insertion. Objective - Vital Signs/Intake and Output Vital Signs (last 24 hours): Temp Pulse Resp BP Pulse Ox 97.2 F L 99 H 20 112/76 100 01/21/19 08:00 01/21/19 08:00 01/21/19 08:00 01/21/19 09:41 01/21/19 08:00 Intake and Output: 01/21/19 01/21/19 06:59 18:59 Intake Total 300 Output Total 2 900 Balance 298 -900 - Medications Medications: Current Medications Acetaminophen (Tylenol 325mg Tab) 650 mg PO Q6 PRN PRN Reason: Pain, moderate (4-7) Last Admin: 01/11/19 19:32 Dose: 650 mg Acetaminophen (Tylenol 325mg Tab) 650 mg PO ONCE PRN PRN Reason: pre med Last Admin: 01/15/19 19:40 Dose: 650 mg Albuterol/Ipratropium (Duoneb 3 Mg/0.5 Mg (3 Ml) Ud) 3 ml INH RQ4 PRN PRN Reason: Shortness of Breath Diphenhydramine HCl (Benadryl) 25 mg IVP ONCE PRN PRN Reason: PRIOR TO TRANSFUSION Last Admin: 01/15/19 19:40 Dose: 25 mg Diphenhydramine HCl (Benadryl) 25 mg PO ONCE PRN PRN Reason: pre med Last Admin: 01/03/19 14:39 Dose: 25 mg Docusate Sodium (Colace) 100 mg PO BID PRN PRN Reason: Constipation Last Admin: 01/16/19 17:31 Dose: 100 mg Furosemide (Lasix) 20 mg PO DAILY [facility] Last Admin: 01/21/19 09:41 Dose: 20 mg Furosemide (Lasix) 20 mg IVP ONCE PRN PRN Reason: post transfusion Last Admin: 01/15/19 22:49 Dose: 20 mg Guaifenesin (Robitussin) 200 mg PO Q4H [facility] Last Admin: 01/21/19 13:49 Dose: Not Given Micafungin Sodium 100 mg/ (Sodium Chloride) 100 mls @ 100 mls/hr IV Q24H [facility]; Protocol Last Admin: 01/21/19 00:09 Dose: 100 mls/hr Cefazolin Sodium/Dextrose (Ancef Iv 1 Gm Duplex) 1 gm in 50 mls @ 100 mls/hr IVPB Q8H [facility]; Protocol Last Admin: 01/21/19 13:45 Dose: 100 mls/hr Lisinopril (Zestril) 5 mg PO DAILY [facility] Last Admin: 01/21/19 09:41 Dose: 5 mg Megestrol Acetate (Megace) 400 mg PO BID [facility] Last Admin: 01/21/19 09:41 Dose: Not Given Morphine Sulfate (Morphine) 1 mg IVP Q6H PRN PRN Reason: Pain, severe (8-10) Last Admin: 01/20/19 11:06 Dose: 1 mg Ondansetron HCl (Zofran Inj) 4 mg IVP Q6H PRN PRN Reason: Nausea/Vomiting Pantoprazole Sodium (Protonix Ec Tab) 40 mg PO DAILY [facility] Last Admin: 01/21/19 09:41 Dose: 40 mg Promethazine HCl (Phenergan Syrup) 6.25 mg PO Q6 PRN PRN Reason: Cough Last Admin: 01/12/19 17:49 Dose: 6.25 mg Saliva Substitute (First Magic Mouthwash) 5 ml PO Q6 [facility] Last Admin: 01/21/19 13:49 Dose: Not Given Scopolamine (Transderm-Scop) 1 patch TD Q3D [facility] Last Admin: 01/20/19 11:57 Dose: 1 patch Tamsulosin HCl (Flomax) 0.4 mg PO BID [facility] Last Admin: 01/21/19 09:43 Dose: 0.4 mg - Labs Labs: 01/21/19 11:03 01/21/19 11:03 PT 14.8 SECONDS (9.7-12.2) H 01/21/19 11:03 INR 1.4 01/21/19 11:03 APTT 28 SECONDS (21-34) 01/21/19 11:03 - Constitutional Appears: In Acute Distress, Cachectic, Chronically Ill - Head Exam Head Exam: NORMAL INSPECTION, NORMOCEPHALIC - Eye Exam Eye Exam: EOMI, Normal appearance, PERRL - ENT Exam ENT Exam: Mucous Membranes Dry - Respiratory Exam Respiratory Exam: Decreased Breath Sounds, Rales - Cardiovascular Exam Cardiovascular Exam: Tachycardia - GI/Abdominal Exam GI & Abdominal Exam: Soft, Normal Bowel Sounds. absent: Distended, Tenderness - Extremities Exam Extremities Exam: Pedal Edema - Neurological Exam Neurological Exam: Alert, Awake, Oriented x3 - Psychiatric Exam Psychiatric exam: Normal Affect, Normal Mood - Skin Skin Exam: Dry, Intact, Normal Color, Warm - Additional Findings Additional findings: anasarca Assessment and Plan - Assessment and Plan (Free Text) Plan: Healthcare Associated Pneumonia, with left sided Infiltrates Right sided Pleural effusion Right sided hydropneumothorax Cough Telecommunicator Dr. Thurston consulted ID Dr. Ferrari consulted Management: - PIGTAIL IN PLACE 01/21/19 Vancomycin d/c-ed per ID Merem 1g q8h Micofungin 100mg IV q24h (12/26/18) Duonebs q4 prn Lasix 20mg PO daily Robitussin 200mg q4h Phenergan 6.25mg po q6 prn Scopolamine patch Mucinex 600mg PO BID Magic mouthwash Imaging: - Chest CT (01/18/19) shows There has been marked increase in size right-sided effusion which is now so sedated with a anteriorly located moderate-sized pneumothorax (hydropneumothorax). Note the right-sided effusion exhibits a somewhat lobular configuration which could be secondary to chronic scarring and fibrosis with tethering of the lung to the pleural surface rather than loculated components. Associated mild atelectasis right lower as well as right upper lobes. Vague ground-glass opacities seen in the aerated portions of the upper right upper lobe although significant underlying centrilobular. 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 There is a small to medium size left-sided effusion with significant atelectatic changes of the left entire left lung. Abdominal ascites. Redemonstrated are multiple low-attenuation hepatic lesions. awaiting family decision regarding chest tube or further intervention as recommended by Pulm Pancytopenia 2/[address] Bobby consulted Zofran 4mg Q6 PRN Transfuse PRN Right midline inserted 01/17/19 PICC not inserted 2/2 pancytopenia Patient refusing blood draw this morning Anasarca worsening albumin 1.5 yesterday, repletion not indicated 2/2 poor status and worsening hydropneumothorax morphine 1mg q6 prn pain in LE 2/2 edema Hypotension Secondary to hypoalbuminemia Continue to monitor Abdominal Pain, resolved Abd US: low-attenuation lesion L lobe liver. Liver exhibits increased echotexture secondary to fatty infiltration or hepatocellular disease. splenomegaly. several tiny echogenic foci adherent to gallbladder wall possibly representing polyps. slight increased renal echotexture. Bladder scans PRN Colace PRN for Constipation Zofran prn History of BPH Flomax 0.4mg PO BID History of HTN Lisinopril 5mg PO daily Holding parameters Poor Nutrition encourage PO intake Hot Knife Cutter consulted Low Microbial Diet Ensure Enlive TID B12 842, wnl Megace 400mg PO BID Prophylaxis: Protonix SCDs contraindicated 2/2 edema; AC contraindicated 2/2 pancytopenia PT/OT DNR/DNI Dispo: Prognosis is very poor. Family discussing hospice options with hospice re presentative, no decision thus far. Pigtail in place for palliative measures. Discussed with Dr. Montoya, Vonda Thomas DO, PGY2
[2019-01-21] MEDS ORDERED: Meropenem 1 GM in Sodium Chloride 0.9% 100 ML IVPB SCH (18:00)
--- NOTE | 2019-01-21 18:18 | CP.PCM.PN ---
Subjective - Date & Time of Evaluation Date of Evaluation: 01/21/19 Time of Evaluation: 08:00 - Subjective Subjective: events noted\seen on rounds chart reviewed orders signed Objective - Vital Signs/Intake and Output Vital Signs (last 24 hours): Temp Pulse Resp BP Pulse Ox 97.8 F 82 20 91/49 L 100 01/21/19 16:02 01/21/19 16:02 01/21/19 16:02 01/21/19 16:02 01/21/19 16:02 Intake and Output: 01/21/19 01/21/19 06:59 18:59 Intake Total 300 Output Total 2 1925 Balance 298 -1925 - Medications Medications: Current Medications Acetaminophen (Tylenol 325mg Tab) 650 mg PO Q6 PRN PRN Reason: Pain, moderate (4-7) Last Admin: 01/11/19 19:32 Dose: 650 mg Acetaminophen (Tylenol 325mg Tab) 650 mg PO ONCE PRN PRN Reason: pre med Last Admin: 01/15/19 19:40 Dose: 650 mg Albuterol/Ipratropium (Duoneb 3 Mg/0.5 Mg (3 Ml) Ud) 3 ml INH RQ4 PRN PRN Reason: Shortness of Breath Diphenhydramine HCl (Benadryl) 25 mg IVP ONCE PRN PRN Reason: PRIOR TO TRANSFUSION Last Admin: 01/15/19 19:40 Dose: 25 mg Diphenhydramine HCl (Benadryl) 25 mg PO ONCE PRN PRN Reason: pre med Last Admin: 01/03/19 14:39 Dose: 25 mg Docusate Sodium (Colace) 100 mg PO BID PRN PRN Reason: Constipation Last Admin: 01/16/19 17:31 Dose: 100 mg Furosemide (Lasix) 20 mg PO DAILY [facility] Last Admin: 01/21/19 09:41 Dose: 20 mg Furosemide (Lasix) 20 mg IVP ONCE PRN PRN Reason: post transfusion Last Admin: 01/15/19 22:49 Dose: 20 mg Guaifenesin (Robitussin) 200 mg PO Q4H [facility] Last Admin: 01/21/19 16:55 Dose: 200 mg Micafungin Sodium 100 mg/ (Sodium Chloride) 100 mls @ 100 mls/hr IV Q24H [facility]; Protocol Last Admin: 01/21/19 00:09 Dose: 100 mls/hr Meropenem 1 gm/ Sodium (Chloride) 100 mls @ 100 mls/hr IVPB Q8H [facility]; Protocol Last Admin: 01/21/19 18:17 Dose: 100 mls/hr Lisinopril (Zestril) 5 mg PO DAILY [facility] Last Admin: 01/21/19 09:41 Dose: 5 mg Megestrol Acetate (Megace) 400 mg PO BID [facility] Last Admin: 01/21/19 18:03 Dose: 400 mg Morphine Sulfate (Morphine) 1 mg IVP Q6H PRN PRN Reason: Pain, severe (8-10) Last Admin: 01/20/19 11:06 Dose: 1 mg Ondansetron HCl (Zofran Inj) 4 mg IVP Q6H PRN PRN Reason: Nausea/Vomiting Pantoprazole Sodium (Protonix Ec Tab) 40 mg PO DAILY [facility] Last Admin: 01/21/19 09:41 Dose: 40 mg Promethazine HCl (Phenergan Syrup) 6.25 mg PO Q6 PRN PRN Reason: Cough Last Admin: 01/12/19 17:49 Dose: 6.25 mg Saliva Substitute (First Magic Mouthwash) 5 ml PO Q6 [facility] Last Admin: 01/21/19 18:03 Dose: 5 ml Scopolamine (Transderm-Scop) 1 patch TD Q3D [facility] Last Admin: 01/20/19 11:57 Dose: 1 patch Tamsulosin HCl (Flomax) 0.4 mg PO BID [facility] Last Admin: 01/21/19 18:03 Dose: 0.4 mg - Labs Labs: 01/21/19 11:03 01/21/19 11:03 PT 14.8 SECONDS (9.7-12.2) H 01/21/19 11:03 INR 1.4 01/21/19 11:03 APTT 28 SECONDS (21-34) 01/21/19 11:03 - Constitutional Appears: No Acute Distress, Cachectic, Chronically Ill - Head Exam Head Exam: NORMOCEPHALIC - Eye Exam Eye Exam: absent: Scleral icterus - ENT Exam ENT Exam: Mucous Membranes Dry - Neck Exam Neck Exam: absent: Lymphadenopathy - Respiratory Exam Respiratory Exam: Decreased Breath Sounds - Cardiovascular Exam Cardiovascular Exam: REGULAR RHYTHM - GI/Abdominal Exam GI & Abdominal Exam: Distended, Soft - Rectal Exam Rectal Exam: Deferred - Exam Exam: NORMAL INSPECTION - Extremities Exam Extremities Exam: Pedal Edema - Back Exam Back Exam: absent: CVA tenderness (L), CVA tenderness (R) - Neurological Exam Neurological Exam: Alert, Awake, Oriented x3 - Psychiatric Exam Psychiatric exam: Depressed - Skin Skin Exam: Dry Assessment and Plan (1) Pleural effusion, left Status: Acute (2) Pneumonia Status: Acute (3) Pleural effusion Status: Acute (4) AML (acute myeloblastic leukemia) Status: Chronic (5) Pancytopenia Status: Chronic - Assessment and Plan (Free Text) Assessment: cont iv rx poor prognosis
[2019-01-22] MEDS: Mag&Al/Simet/Diphen/Lido 237 ML KIT PO SCH ×4 (00:34→18:07)
[2019-01-22] MEDS: guaiFENesin 200 mg/10 ml Syrup UD PO SCH ×5 (00:35→20:16)
--- NOTE | 2019-01-22 06:53 | CP.PCM.PN ---
Subjective - Date & Time of Evaluation Date of Evaluation: 01/22/19 Time of Evaluation: 06:51 - Subjective Subjective: Medicine Note for Dr. Montoya's Service Patient was seen and examined at bedside. Patient's breathing has much improved since insertion of pigtail. Patient lost IV access overnight, all meds changed to PO. ROS unremarkable. Objective - Vital Signs/Intake and Output Vital Signs (last 24 hours): Temp Pulse Resp BP Pulse Ox 97.4 F L 81 20 108/57 L 99 01/21/19 23:49 01/21/19 23:49 01/21/19 23:49 01/21/19 23:49 01/21/19 23:49 Intake and Output: 01/21/19 01/22/19 18:59 06:59 Intake Total 200 Output Total 1925 20 Balance -1925 180 - Medications Medications: Current Medications Acetaminophen (Tylenol 325mg Tab) 650 mg PO Q6 PRN PRN Reason: Pain, moderate (4-7) Last Admin: 01/11/19 19:32 Dose: 650 mg Acetaminophen (Tylenol 325mg Tab) 650 mg PO ONCE PRN PRN Reason: pre med Last Admin: 01/15/19 19:40 Dose: 650 mg Albuterol/Ipratropium (Duoneb 3 Mg/0.5 Mg (3 Ml) Ud) 3 ml INH RQ4 PRN PRN Reason: Shortness of Breath Diphenhydramine HCl (Benadryl) 25 mg PO ONCE PRN PRN Reason: pre med Last Admin: 01/03/19 14:39 Dose: 25 mg Docusate Sodium (Colace) 100 mg PO BID PRN PRN Reason: Constipation Last Admin: 01/16/19 17:31 Dose: 100 mg Furosemide (Lasix) 20 mg PO DAILY [facility] Last Admin: 01/21/19 09:41 Dose: 20 mg Guaifenesin (Robitussin) 200 mg PO Q4H [facility] Last Admin: 01/22/19 04:57 Dose: Not Given Linezolid (Zyvox) 600 mg PO BID [facility]; Protocol Last Admin: 01/21/19 21:55 Dose: 600 mg Lisinopril (Zestril) 5 mg PO DAILY [facility] Last Admin: 01/21/19 09:41 Dose: 5 mg Megestrol Acetate (Megace) 400 mg PO BID [facility] Last Admin: 01/21/19 18:03 Dose: 400 mg Ondansetron HCl (Zofran Odt) 4 mg PO Q6H PRN PRN Reason: Nausea/Vomiting Pantoprazole Sodium (Protonix Ec Tab) 40 mg PO DAILY [facility] Last Admin: 01/21/19 09:41 Dose: 40 mg Promethazine HCl (Phenergan Syrup) 6.25 mg PO Q6 PRN PRN Reason: Cough Last Admin: 01/12/19 17:49 Dose: 6.25 mg Saliva Substitute (First Magic Mouthwash) 5 ml PO Q6 [facility] Last Admin: 01/22/19 00:34 Dose: Not Given Scopolamine (Transderm-Scop) 1 patch TD Q3D [facility] Last Admin: 01/20/19 11:57 Dose: 1 patch Tamsulosin HCl (Flomax) 0.4 mg PO BID [facility] Last Admin: 01/21/19 18:03 Dose: 0.4 mg Tramadol HCl (Ultram) 25 mg PO TID PRN PRN Reason: Pain, Mild (1-3) - Labs Labs: 01/21/19 11:03 01/21/19 11:03 PT 14.8 SECONDS (9.7-12.2) H 01/21/19 11:03 INR 1.4 01/21/19 11:03 APTT 28 SECONDS (21-34) 01/21/19 11:03 - Constitutional Appears: No Acute Distress, Cachectic, Chronically Ill - Head Exam Head Exam: NORMAL INSPECTION, NORMOCEPHALIC - Eye Exam Eye Exam: EOMI, Normal appearance, PERRL Pupil Exam: NORMAL ACCOMODATION - ENT Exam ENT Exam: Mucous Membranes Dry - Respiratory Exam Respiratory Exam: Decreased Breath Sounds, Rales, Rhonchi. absent: Wheezes - Cardiovascular Exam Cardiovascular Exam: +S1, +S2 - GI/Abdominal Exam GI & Abdominal Exam: Soft, Normal Bowel Sounds. absent: Distended, Tenderness - Extremities Exam Extremities Exam: Pedal Edema. absent: Tenderness - Neurological Exam Neurological Exam: Alert, Awake, Oriented x3 - Psychiatric Exam Psychiatric exam: Normal Affect, Normal Mood - Skin Skin Exam: Dry, Intact, Normal Color, Warm Assessment and Plan - Assessment and Plan (Free Text) Plan: Healthcare Associated Pneumonia, with left sided Infiltrates Right sided Pleural effusion Right sided hydropneumothorax Cough Log Scaler Dr. Thurston consulted ID Dr. Ferrari consulted Management: - PIGTAIL IN PLACE 01/21/19 Vancomycin d/c-ed per ID Merem 1g q8h Micofungin 100mg IV q24h (12/26/18) Duonebs q4 prn Lasix 20mg PO daily Robitussin 200mg q4h Phenergan 6.25mg po q6 prn Scopolamine patch Mucinex 600mg PO BID Magic mouthwash Imaging: - Chest CT (01/18/19) shows There has been marked increase in size right-sided effusion which is now so sedated with a anteriorly located moderate-sized pneumothorax (hydropneumothorax). Note the right-sided effusion exhibits a somewhat lobular configuration which could be secondary to chronic scarring and fibrosis with tethering of the lung to the pleural surface rather than loculated components. Associated mild atelectasis right lower as well as right upper lobes. Vague ground-glass opacities seen in the aerated portions of the upper right upper lobe although significant underlying centrilobular. 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 There is a small to medium size left-sided effusion with significant atelectatic changes of the left entire left lung. Abdominal ascites. Redemonstrated are multiple low-attenuation hepatic lesions. awaiting family decision regarding chest tube or further intervention as rec ommended by Pulm Pancytopenia 2/[address] Bobby consulted Zofran 4mg Q6 PRN Transfuse PRN Right midline inserted 01/17/19 PICC not inserted 2/2 pancytopenia Patient refusing blood draw this morning Anasarca worsening albumin 1.5 yesterday, repletion not indicated 2/2 poor status and worsening hydropneumothorax morphine 1mg q6 prn pain in LE 2/2 edema Hypotension Secondary to hypoalbuminemia Continue to monitor Abdominal Pain, resolved Abd US: low-attenuation lesion L lobe liver. Liver exhibits increased echotexture secondary to fatty infiltration or hepatocellular disease. splenomegaly. several tiny echogenic foci adherent to gallbladder wall possibly representing polyps. slight increased renal echotexture. Bladder scans PRN Colace PRN for Constipation Zofran prn History of BPH Flomax 0.4mg PO BID History of HTN Lisinopril 5mg PO daily Holding parameters Poor Nutrition encourage PO intake Adhesive Bandage Machine Operator consulted Low Microbial Diet Ensure Enlive TID B12 842, wnl Megace 400mg PO BID Prophylaxis: Protonix SCDs contraindicated 2/2 edema; AC contraindicated 2/2 pancytopenia PT/OT DNR/DNI Dispo: Prognosis is very poor. Family discussing hospice options with hospice insurance claims representative, no decision thus far. Pigtail in place for palliative measures. Discussed with Vonda Torres DO, PGY2
[2019-01-22] MEDS ORDERED: Tramadol 25 mg PO PRN (06:58)
[2019-01-22] MEDS: Megestrol Acetate 40 mg/ml Cup PO SCH ×2 (10:28→18:12)
[2019-01-22] MEDS: Pantoprazole 40 mg EC Tab PO SCH (10:29)
--- NOTE | 2019-01-22 19:02 | CP.PCM.PN ---
Subjective - Date & Time of Evaluation Date of Evaluation: 01/22/19 Time of Evaluation: 15:00 - Subjective Subjective: Patient seen and examined Breathing better but chest x-ray showed persistent right pneumothorax with pigtail catheter in place Still draining fluid Afebrile Awake and responsive Objective - Vital Signs/Intake and Output Vital Signs (last 24 hours): Temp Pulse Resp BP Pulse Ox 97.2 F L 88 20 94/56 L 99 01/22/19 15:52 01/22/19 15:52 01/22/19 15:52 01/22/19 15:52 01/22/19 15:52 Intake and Output: 01/22/19 01/22/19 06:59 18:59 Intake Total 200 120 Output Total 20 Balance 180 120 - Medications Medications: Current Medications Acetaminophen (Tylenol 325mg Tab) 650 mg PO Q6 PRN PRN Reason: Pain, moderate (4-7) Last Admin: 01/11/19 19:32 Dose: 650 mg Acetaminophen (Tylenol 325mg Tab) 650 mg PO ONCE PRN PRN Reason: pre med Last Admin: 01/15/19 19:40 Dose: 650 mg Albuterol/Ipratropium (Duoneb 3 Mg/0.5 Mg (3 Ml) Ud) 3 ml INH RQ6 [facility] Diphenhydramine HCl (Benadryl) 25 mg PO ONCE PRN PRN Reason: pre med Last Admin: 01/03/19 14:39 Dose: 25 mg Docusate Sodium (Colace) 100 mg PO BID PRN PRN Reason: Constipation Last Admin: 01/16/19 17:31 Dose: 100 mg Furosemide (Lasix) 20 mg PO DAILY [facility] Last Admin: 01/22/19 10:32 Dose: Not Given Guaifenesin (Robitussin) 200 mg PO Q4H [facility] Last Admin: 01/22/19 16:33 Dose: Not Given Linezolid (Zyvox) 600 mg PO BID [facility]; Protocol Last Admin: 01/22/19 18:12 Dose: 600 mg Lisinopril (Zestril) 5 mg PO DAILY [facility] Last Admin: 01/22/19 10:41 Dose: Not Given Megestrol Acetate (Megace) 400 mg PO BID [facility] Last Admin: 01/22/19 18:12 Dose: 400 mg Morphine Sulfate (Morphine) 1 mg IVP Q4 PRN PRN Reason: Pain, moderate (4-7) Ondansetron HCl (Zofran Odt) 4 mg PO Q6H PRN PRN Reason: Nausea/Vomiting Pantoprazole Sodium (Protonix Ec Tab) 40 mg PO DAILY [facility] Last Admin: 01/22/19 10:29 Dose: 40 mg Promethazine HCl (Phenergan Syrup) 6.25 mg PO Q6 PRN PRN Reason: Cough Last Admin: 01/12/19 17:49 Dose: 6.25 mg Saliva Substitute (First Magic Mouthwash) 5 ml PO Q6 [facility] Last Admin: 01/22/19 18:07 Dose: Not Given Scopolamine (Transderm-Scop) 1 patch TD Q3D [facility] Last Admin: 01/20/19 11:57 Dose: 1 patch Tamsulosin HCl (Flomax) 0.4 mg PO BID [facility] Last Admin: 01/22/19 18:12 Dose: 0.4 mg - Labs Labs: 01/21/19 11:03 01/21/19 11:03 PT 14.8 SECONDS (9.7-12.2) H 01/21/19 11:03 INR 1.4 01/21/19 11:03 APTT 28 SECONDS (21-34) 01/21/19 11:03 - Head Exam Head Exam: ATRAUMATIC - ENT Exam ENT Exam: Mucous Membranes Moist - Respiratory Exam Respiratory Exam: Decreased Breath Sounds - GI/Abdominal Exam GI & Abdominal Exam: Soft - Extremities Exam Extremities Exam: Pedal Edema Assessment and Plan (1) Pleural effusion, left Assessment & Plan: Status post pigtail catheter insertion Persistent right pneumothorax Continue pigtail catheter on suction Continue present treatment Prognosis poor Status: Acute (2) Pancytopenia Status: Acute (3) Pneumonia Status: Acute
[2019-01-22] MEDS: Albuterol-Ipratrop 3 mg / 0.5 (3 ml) UD INH SCH (19:22)
--- NOTE | 2019-01-22 22:35 | CP.PCM.PN ---
Subjective - Date & Time of Evaluation Date of Evaluation: 01/22/19 Time of Evaluation: 17:00 - Subjective Subjective: Reports to breathing better at bedside. Objective - Vital Signs/Intake and Output Vital Signs (last 24 hours): Temp Pulse Resp BP Pulse Ox 97.2 F L 84 20 94/56 L 99 01/22/19 15:52 01/22/19 19:22 01/22/19 15:52 01/22/19 15:52 01/22/19 15:52 Intake and Output: 01/22/19 01/23/19 18:59 06:59 Intake Total 120 Balance 120 - Medications Medications: Current Medications Acetaminophen (Tylenol 325mg Tab) 650 mg PO Q6 PRN PRN Reason: Pain, moderate (4-7) Last Admin: 01/11/19 19:32 Dose: 650 mg Acetaminophen (Tylenol 325mg Tab) 650 mg PO ONCE PRN PRN Reason: pre med Last Admin: 01/15/19 19:40 Dose: 650 mg Albuterol/Ipratropium (Duoneb 3 Mg/0.5 Mg (3 Ml) Ud) 3 ml INH RQ6 [facility] Last Admin: 01/22/19 19:22 Dose: 3 ml Diphenhydramine HCl (Benadryl) 25 mg PO ONCE PRN PRN Reason: pre med Last Admin: 01/03/19 14:39 Dose: 25 mg Docusate Sodium (Colace) 100 mg PO BID PRN PRN Reason: Constipation Last Admin: 01/16/19 17:31 Dose: 100 mg Furosemide (Lasix) 20 mg PO DAILY [facility] Last Admin: 01/22/19 10:32 Dose: Not Given Guaifenesin (Robitussin) 200 mg PO Q4H [facility] Last Admin: 01/22/19 20:16 Dose: 200 mg Linezolid (Zyvox) 600 mg PO BID [facility]; Protocol Last Admin: 01/22/19 18:12 Dose: 600 mg Lisinopril (Zestril) 5 mg PO DAILY [facility] Last Admin: 01/22/19 10:41 Dose: Not Given Megestrol Acetate (Megace) 400 mg PO BID [facility] Last Admin: 01/22/19 18:12 Dose: 400 mg Morphine Sulfate (Morphine) 1 mg IVP Q4 PRN PRN Reason: Pain, moderate (4-7) Ondansetron HCl (Zofran Odt) 4 mg PO Q6H PRN PRN Reason: Nausea/Vomiting Pantoprazole Sodium (Protonix Ec Tab) 40 mg PO DAILY [facility] Last Admin: 01/22/19 10:29 Dose: 40 mg Promethazine HCl (Phenergan Syrup) 6.25 mg PO Q6 PRN PRN Reason: Cough Last Admin: 01/12/19 17:49 Dose: 6.25 mg Saliva Substitute (First Magic Mouthwash) 5 ml PO Q6 [facility] Last Admin: 01/22/19 18:07 Dose: Not Given Scopolamine (Transderm-Scop) 1 patch TD Q3D [facility] Last Admin: 01/20/19 11:57 Dose: 1 patch Tamsulosin HCl (Flomax) 0.4 mg PO BID [facility] Last Admin: 01/22/19 18:12 Dose: 0.4 mg - Labs Labs: 01/21/19 11:03 01/21/19 11:03 PT 14.8 SECONDS (9.7-12.2) H 01/21/19 11:03 INR 1.4 01/21/19 11:03 APTT 28 SECONDS (21-34) 01/21/19 11:03 - Constitutional Appears: Cachectic - Head Exam Head Exam: ATRAUMATIC - Eye Exam Eye Exam: Normal appearance - ENT Exam ENT Exam: Mucous Membranes Dry - Respiratory Exam Respiratory Exam: Decreased Breath Sounds - Cardiovascular Exam Cardiovascular Exam: +S1, +S2 - GI/Abdominal Exam GI & Abdominal Exam: Normal Bowel Sounds Assessment and Plan (1) Pancytopenia Assessment & Plan: secondary to AML transfusion support PRN Status: Chronic (2) AML (acute myeloblastic leukemia) Assessment & Plan: supportive care transfusion support DNR/DNI Status: Chronic
[2019-01-23] MEDS: Mag&Al/Simet/Diphen/Lido 237 ML KIT PO SCH ×4 (00:03→17:44)
[2019-01-23] MEDS: guaiFENesin 200 mg/10 ml Syrup UD PO SCH ×6 (00:04→20:55)
[2019-01-23] MEDS: Albuterol-Ipratrop 3 mg / 0.5 (3 ml) UD INH SCH ×2 (02:02→19:57)
--- NOTE | 2019-01-23 07:34 | CP.PCM.PN ---
Subjective - Date & Time of Evaluation Date of Evaluation: 01/23/19 Time of Evaluation: 07:32 - Subjective Subjective: Medicine Note for Dr. Montoya's Service Patient was seen and examined at bedside. Patient's breathing has much improved since insertion of pigtail. Midline is functional now. Objective - Vital Signs/Intake and Output Vital Signs (last 24 hours): Temp Pulse Resp BP Pulse Ox 97.7 F 89 20 107/65 100 01/22/19 23:40 01/22/19 23:40 01/22/19 23:40 01/22/19 23:40 01/22/19 23:40 Intake and Output: 01/23/19 01/23/19 06:59 18:59 Intake Total 260 Output Total 350 Balance -90 - Medications Medications: Current Medications Acetaminophen (Tylenol 325mg Tab) 650 mg PO Q6 PRN PRN Reason: Pain, moderate (4-7) Last Admin: 01/11/19 19:32 Dose: 650 mg Acetaminophen (Tylenol 325mg Tab) 650 mg PO ONCE PRN PRN Reason: pre med Last Admin: 01/15/19 19:40 Dose: 650 mg Albuterol/Ipratropium (Duoneb 3 Mg/0.5 Mg (3 Ml) Ud) 3 ml INH RQ6 [facility] Last Admin: 01/23/19 02:02 Dose: Not Given Diphenhydramine HCl (Benadryl) 25 mg PO ONCE PRN PRN Reason: pre med Last Admin: 01/03/19 14:39 Dose: 25 mg Docusate Sodium (Colace) 100 mg PO BID PRN PRN Reason: Constipation Last Admin: 01/16/19 17:31 Dose: 100 mg Furosemide (Lasix) 20 mg PO DAILY [facility] Last Admin: 01/22/19 10:32 Dose: Not Given Guaifenesin (Robitussin) 200 mg PO Q4H [facility] Last Admin: 01/23/19 04:17 Dose: Not Given Linezolid (Zyvox) 600 mg PO BID [facility]; Protocol Last Admin: 01/22/19 18:12 Dose: 600 mg Lisinopril (Zestril) 5 mg PO DAILY [facility] Last Admin: 01/22/19 10:41 Dose: Not Given Megestrol Acetate (Megace) 400 mg PO BID [facility] Last Admin: 01/22/19 18:12 Dose: 400 mg Morphine Sulfate (Morphine) 1 mg IVP Q4 PRN PRN Reason: Pain, moderate (4-7) Ondansetron HCl (Zofran Odt) 4 mg PO Q6H PRN PRN Reason: Nausea/Vomiting Pantoprazole Sodium (Protonix Ec Tab) 40 mg PO DAILY [facility] Last Admin: 01/22/19 10:29 Dose: 40 mg Promethazine HCl (Phenergan Syrup) 6.25 mg PO Q6 PRN PRN Reason: Cough Last Admin: 01/12/19 17:49 Dose: 6.25 mg Saliva Substitute (First Magic Mouthwash) 5 ml PO Q6 [facility] Last Admin: 01/23/19 05:39 Dose: Not Given Scopolamine (Transderm-Scop) 1 patch TD Q3D [facility] Last Admin: 01/20/19 11:57 Dose: 1 patch Tamsulosin HCl (Flomax) 0.4 mg PO BID [facility] Last Admin: 01/22/19 18:12 Dose: 0.4 mg - Labs Labs: 01/21/19 11:03 01/21/19 11:03 PT 14.8 SECONDS (9.7-12.2) H 01/21/19 11:03 INR 1.4 01/21/19 11:03 APTT 28 SECONDS (21-34) 01/21/19 11:03 - Additional Findings Additional findings: - Constitutional Appears: No Acute Distress, Cachectic, Chronically Ill - Head Exam Head Exam: NORMAL INSPECTION, NORMOCEPHALIC - Eye Exam Eye Exam: EOMI, Normal appearance, PERRL Pupil Exam: NORMAL ACCOMODATION - ENT Exam ENT Exam: Mucous Membranes Dry - Respiratory Exam Respiratory Exam: Decreased Breath Sounds, Rales, pigtail noted on right, dress ing clean /dry/ intact. absent: Wheezes - Cardiovascular Exam Cardiovascular Exam: +S1, +S2 - GI/Abdominal Exam GI & Abdominal Exam: Soft, Normal Bowel Sounds. absent: Distended, Tenderness - Extremities Exam Extremities Exam: Pedal Edema. absent: Tenderness - Neurological Exam Neurological Exam: Alert, Awake, Oriented x3 - Psychiatric Exam Psychiatric exam: Normal Affect, Normal Mood - Skin Skin Exam: Dry, Intact, Normal Color, Warm Assessment and Plan - Assessment and Plan (Free Text) Plan: Healthcare Associated Pneumonia, with left sided Infiltrates Bilateral Pleural Effusions R> L Right sided Pneumothorax Outdoor Education Teacher Dr. Thurston consulted ID Dr. Ferrari consulted Management: - PIGTAIL IN PLACE 01/21/19 Vancomycin d/c-ed per ID Merem 1g q8h Micofungin 100mg IV q24h (12/26/18) Duonebs q4 prn Lasix 20mg PO daily Robitussin 200mg q4h Phenergan 6.25mg po q6 prn Scopolamine patch Mucinex 600mg PO BID Magic mouthwash Imaging: - Chest CT (01/18/19) shows There has been marked increase in size right-sided e ffusion which is now so sedated with a anteriorly located moderate-sized pneumothorax (hydropneumothorax). Note the right-sided effusion exhibits a somewhat lobular configuration which could be secondary to chronic scarring and fibrosis with tethering of the lung to the pleural surface rather than loculated components. Associated mild atelectasis right lower as well as right upper lobes. Vague ground-glass opacities seen in the aerated portions of the upper right upper lobe although significant underlying centrilobular. 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 There is a small to medium size left-sided effusion with significant atelectatic changes of the left entire left lung. Abdominal ascites. Redemonstrated are multiple low-attenuation hepatic lesions. awaiting family decision regarding chest tube or further intervention as recommended by Pulm Pancytopenia 2/[address] Bobby consulted Zofran 4mg Q6 PRN Transfuse PRN Right midline inserted 01/17/19 PICC not inserted 2/2 pancytopenia Patient refusing blood draw this morning Anasarca worsening albumin 1.5 yesterday, repletion not indicated 2/2 poor status and worsening hydropneumothorax morphine 1mg q6 prn pain in LE 2/2 edema Hypotension Secondary to hypoalbuminemia Continue to monitor Abdominal Pain, resolved Abd US: low-attenuation lesion L lobe liver. Liver exhibits increased echotexture secondary to fatty infiltration or hepatocellular disease. splenomegaly. several tiny echogenic foci adherent to gallbladder wall possibly representing polyps. slight increased renal echotexture. Bladder scans PRN Colace PRN for Constipation Zofran prn History of BPH Flomax 0.4mg PO BID History of HTN Lisinopril 5mg PO daily Holding parameters Poor Nutrition encourage PO intake Head Pastry Chef consulted Low Microbial Diet Ensure Enlive TID B12 842, wnl Megace 400mg PO BID Prophylaxis: Protonix SCDs contraindicated 2/2 edema; AC contraindicated 2/2 pancytopenia PT/OT DNR/DNI Dispo: Prognosis is very poor. Family discussing hospice options with hospice agency sales representative, no decision thus far. Pigtail in place for palliative measures. Discussed with Vonda Torres DO, PGY2
[2019-01-23] MEDS: Megestrol Acetate 40 mg/ml Cup PO SCH ×2 (10:50→17:43)
[2019-01-23] MEDS: Pantoprazole 40 mg EC Tab PO SCH (10:50)
--- NOTE | 2019-01-23 16:13 | CP.PCM.PN ---
Subjective - Date & Time of Evaluation Date of Evaluation: 01/23/19 Time of Evaluation: 09:00 - Subjective Subjective: weak lethargic on NRBM afebrile family at bedside Objective - Vital Signs/Intake and Output Vital Signs (last 24 hours): Temp Pulse Resp BP Pulse Ox 97.8 F 80 20 108/68 99 01/23/19 07:44 01/23/19 07:44 01/23/19 07:44 01/23/19 10:50 01/23/19 07:44 Intake and Output: 01/23/19 01/23/19 06:59 18:59 Intake Total 260 360 Output Total 350 210 Balance -90 150 - Medications Medications: Current Medications Acetaminophen (Tylenol 325mg Tab) 650 mg PO Q6 PRN PRN Reason: Pain, moderate (4-7) Last Admin: 01/11/19 19:32 Dose: 650 mg Acetaminophen (Tylenol 325mg Tab) 650 mg PO ONCE PRN PRN Reason: pre med Last Admin: 01/15/19 19:40 Dose: 650 mg Albuterol/Ipratropium (Duoneb 3 Mg/0.5 Mg (3 Ml) Ud) 3 ml INH RQ6 [facility] Last Admin: 01/23/19 02:02 Dose: Not Given Diphenhydramine HCl (Benadryl) 25 mg PO ONCE PRN PRN Reason: pre med Last Admin: 01/03/19 14:39 Dose: 25 mg Docusate Sodium (Colace) 100 mg PO BID PRN PRN Reason: Constipation Last Admin: 01/16/19 17:31 Dose: 100 mg Furosemide (Lasix) 20 mg PO DAILY [facility] Last Admin: 01/23/19 10:50 Dose: 20 mg Guaifenesin (Robitussin) 200 mg PO Q4H [facility] Last Admin: 01/23/19 11:10 Dose: Not Given Linezolid (Zyvox) 600 mg PO BID [facility]; Protocol Last Admin: 01/23/19 10:50 Dose: 600 mg Lisinopril (Zestril) 5 mg PO DAILY [facility] Last Admin: 01/23/19 10:51 Dose: Not Given Megestrol Acetate (Megace) 400 mg PO BID [facility] Last Admin: 01/23/19 10:50 Dose: Not Given Morphine Sulfate (Morphine) 1 mg IVP Q4 PRN PRN Reason: Pain, moderate (4-7) Ondansetron HCl (Zofran Odt) 4 mg PO Q6H PRN PRN Reason: Nausea/Vomiting Pantoprazole Sodium (Protonix Ec Tab) 40 mg PO DAILY [facility] Last Admin: 01/23/19 10:50 Dose: 40 mg Promethazine HCl (Phenergan Syrup) 6.25 mg PO Q6 PRN PRN Reason: Cough Last Admin: 01/12/19 17:49 Dose: 6.25 mg Saliva Substitute (First Magic Mouthwash) 5 ml PO Q6 [facility] Last Admin: 01/23/19 12:00 Dose: 5 ml Scopolamine (Transderm-Scop) 1 patch TD Q3D [facility] Last Admin: 01/23/19 10:51 Dose: 1 patch Tamsulosin HCl (Flomax) 0.4 mg PO BID [facility] Last Admin: 01/23/19 10:50 Dose: 0.4 mg - Labs Labs: 01/21/19 11:03 01/21/19 11:03 PT 14.8 SECONDS (9.7-12.2) H 01/21/19 11:03 INR 1.4 01/21/19 11:03 APTT 28 SECONDS (21-34) 01/21/19 11:03 - Constitutional Appears: No Acute Distress, Cachectic, Chronically Ill - Head Exam Head Exam: NORMOCEPHALIC - Eye Exam Eye Exam: absent: Scleral icterus - ENT Exam ENT Exam: Mucous Membranes Dry - Neck Exam Neck Exam: absent: Lymphadenopathy - Respiratory Exam Respiratory Exam: Decreased Breath Sounds - Cardiovascular Exam Cardiovascular Exam: REGULAR RHYTHM - GI/Abdominal Exam GI & Abdominal Exam: Distended, Soft - Rectal Exam Rectal Exam: Deferred - Exam Exam: NORMAL INSPECTION Assessment and Plan (1) Pleural effusion, left Status: Acute (2) Pneumonia Status: Acute (3) Pleural effusion Status: Acute (4) AML (acute myeloblastic leukemia) Status: Chronic (5) Pancytopenia Status: Chronic - Assessment and Plan (Free Text) Assessment: switched to po meds poor prognosis
[2019-01-24] MEDS: Albuterol-Ipratrop 3 mg / 0.5 (3 ml) UD INH SCH ×4 (02:00→19:02)
[2019-01-24] MEDS: Mag&Al/Simet/Diphen/Lido 237 ML KIT PO SCH ×4 (05:11→18:00)
[2019-01-24] MEDS: guaiFENesin 200 mg/10 ml Syrup UD PO SCH ×6 (05:12→20:51)
[2019-01-24 07:00] LABS: BASO % 0.1 % (0.0-2.0); EOS % 0.9 % (0.0-4.0); HEMOGLOBIN 6.9 g/dL (12.0-18.0); LYMPH # 0.2 K/uL (1.0-4.3); LYMPH % 73.5 % (20.0-40.0); MEAN CORPUSCULAR HEMOGLOBIN 31.1 pg (27.0-31.0); MEAN CORPUSCULAR HGB CONC 33.1 g/dL (33.0-37.0); MEAN PLATELET VOLUME 8.7 fL (7.2-11.7); MONO % 4.9 % (0.0-10.0); NEUT # 0.1 K/uL (1.8-7.0); NRBC % 1.8 % (0.0-2.0); RBC 2.22 Mil/uL (4.40-5.90); RED CELL DISTRIBUTION WIDTH 12.8 % (11.5-14.5)
[2019-01-24 07:11] LABS: NEUT % 20.6 % (50.0-75.0); WHITE BLOOD COUNT 0.3 K/uL (4.8-10.8)
--- NOTE | 2019-01-24 07:20 | CP.PCM.PN ---
Subjective - Date & Time of Evaluation Date of Evaluation: 01/24/19 Time of Evaluation: 08:30 - Subjective Subjective: Patient examined at bedside w/ in room. reports some leaking at site of midline on right arm. Reports pt has been eating well at breakfast and dinner, but does not have too much appetite at lunchtime. Reports pt has been urinating and having BMs without issue. Pt reports improvement in LE pain. Denies chest pain and SOB, cough. Objective - Vital Signs/Intake and Output Vital Signs (last 24 hours): Temp Pulse Resp BP Pulse Ox 97.4 F L 82 20 94/63 L 100 01/24/19 00:01 01/24/19 00:01 01/24/19 00:01 01/24/19 00:01 01/24/19 00:01 Intake and Output: 01/24/19 01/24/19 06:59 18:59 Intake Total 420 Output Total 100 Balance 320 - Medications Medications: Current Medications Acetaminophen (Tylenol 325mg Tab) 650 mg PO Q6 PRN PRN Reason: Pain, moderate (4-7) Last Admin: 01/11/19 19:32 Dose: 650 mg Acetaminophen (Tylenol 325mg Tab) 650 mg PO ONCE PRN PRN Reason: pre med Last Admin: 01/15/19 19:40 Dose: 650 mg Albuterol/Ipratropium (Duoneb 3 Mg/0.5 Mg (3 Ml) Ud) 3 ml INH RQ6 [facility] Last Admin: 01/24/19 02:00 Dose: Not Given Diphenhydramine HCl (Benadryl) 25 mg PO ONCE PRN PRN Reason: pre med Last Admin: 01/03/19 14:39 Dose: 25 mg Docusate Sodium (Colace) 100 mg PO BID PRN PRN Reason: Constipation Last Admin: 01/16/19 17:31 Dose: 100 mg Furosemide (Lasix) 20 mg PO DAILY [facility] Last Admin: 01/23/19 10:50 Dose: 20 mg Guaifenesin (Robitussin) 200 mg PO Q4H [facility] Last Admin: 01/24/19 05:12 Dose: Not Given Linezolid (Zyvox) 600 mg PO BID [facility]; Protocol Last Admin: 01/23/19 17:34 Dose: 600 mg Lisinopril (Zestril) 5 mg PO DAILY [facility] Last Admin: 01/23/19 10:51 Dose: Not Given Megestrol Acetate (Megace) 400 mg PO BID [facility] Last Admin: 01/23/19 17:43 Dose: 400 mg Morphine Sulfate (Morphine) 1 mg IVP Q4 PRN PRN Reason: Pain, moderate (4-7) Ondansetron HCl (Zofran Odt) 4 mg PO Q6H PRN PRN Reason: Nausea/Vomiting Pantoprazole Sodium (Protonix Ec Tab) 40 mg PO DAILY [facility] Last Admin: 01/23/19 10:50 Dose: 40 mg Promethazine HCl (Phenergan Syrup) 6.25 mg PO Q6 PRN PRN Reason: Cough Last Admin: 01/12/19 17:49 Dose: 6.25 mg Saliva Substitute (First Magic Mouthwash) 5 ml PO Q6 [facility] Last Admin: 01/24/19 05:11 Dose: Not Given Scopolamine (Transderm-Scop) 1 patch TD Q3D [facility] Last Admin: 01/23/19 10:51 Dose: 1 patch Tamsulosin HCl (Flomax) 0.4 mg PO BID [facility] Last Admin: 01/23/19 17:34 Dose: 0.4 mg - Labs Labs: 01/24/19 06:51 01/21/19 11:03 PT 14.8 SECONDS (9.7-12.2) H 01/21/19 11:03 INR 1.4 01/21/19 11:03 APTT 28 SECONDS (21-34) 01/21/19 11:03 - Constitutional Appears: Non-toxic, No Acute Distress, Cachectic, Chronically Ill - Head Exam Head Exam: ATRAUMATIC, NORMAL INSPECTION, NORMOCEPHALIC - Eye Exam Eye Exam: EOMI, Normal appearance - ENT Exam ENT Exam: Mucous Membranes Moist, Normal Exam - Neck Exam Neck Exam: Normal Inspection - Respiratory Exam Respiratory Exam: Decreased Breath Sounds, Rales (left), Rhonchi (right). absent: Wheezes, Respiratory Distress Additional comments: right pigtail in place, to suction; ss output now more serous - Cardiovascular Exam Cardiovascular Exam: REGULAR RHYTHM, +S1, +S2. absent: Tachycardia - GI/Abdominal Exam GI & Abdominal Exam: Soft, Normal Bowel Sounds. absent: Distended, Tenderness - Extremities Exam Extremities Exam: Pedal Edema (2+, improving), Tenderness - Neurological Exam Neurological Exam: Awake - Psychiatric Exam Psychiatric exam: Flat Affect - Skin Skin Exam: Dry, Pallor, Warm. absent: Cyanosis - Additional Findings Additional findings: large right UE ecchymosis Assessment and Plan - Assessment and Plan (Free Text) Assessment: 78 year old male with history of COPD, AML on chemo, pancytopenia 2/2 AML, BPH, HTN admitted for treatment of pancytopenia, s/p right pigtail for newly developed hyropneumothorax Plan: Right sided hydropneumonthorax Business Manager Dr. Thurston consulted ID Dr. Ferrari consulted Management: - PIGTAIL IN PLACE 01/21/19, to suction Zyvox 600mg po BID, PO abx per ID 2/2 intermittently non-functioning midline Duonebs q6 Lasix 20mg PO daily Robitussin 200mg q4h Phenergan 6.25mg po q6 prn Scopolamine patch Imaging: - Chest CT (01/18/19) shows There has been marked increase in size right-sided effusion which is now so sedated with a anteriorly located moderate-sized pneumothorax (hydropneumothorax). Note the right-sided effusion exhibits a sherman ewhat lobular configuration which could be secondary to chronic scarring and fibrosis with tethering of the lung to the pleural surface rather than loculated components. Associated mild atelectasis right lower as well as right upper lobes. Vague ground-glass opacities seen in the aerated portions of the upper right upper lobe although significant underlying centrilobular. 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 There is a small to medium size left-sided effusion with significant atelectatic changes of the left entire left lung. Abdominal ascites. Redemonstrated are multiple low-attenuation hepatic lesions. -f/u repeat CXR today for evolution of hydropneumothorax s/p pigtail Pancytopenia 2/[address] Bobby consulted hgb 6.9, plts 58 Zofran 4mg Q6 PRN Transfuse PRN Right midline inserted 01/17/19 PICC not inserted 2/2 pancytopenia Anasarca improving lasix 20mg po qd albumin 1.3 today, repletion not indicated 2/2 poor status and worsening hydropneumothorax morphine 1mg q6 prn pain in LE 2/2 edema Hypotension Secondary to hypoalbuminemia Continue to monitor lisinopril 5mg po qd, holding parameters Abdominal Pain, resolved Abd US: low-attenuation lesion L lobe liver. Liver exhibits increased echotexture secondary to fatty infiltration or hepatocellular disease. splenomegaly. several tiny echogenic foci adherent to gallbladder wall possibly representing polyps. slight increased renal echotexture. Colace PRN for Constipation Zofran prn History of BPH Flomax 0.4mg PO BID Bladder scans PRN History of HTN Lisinopril 5mg PO daily Holding parameters Poor Nutrition encourage PO intake Low Microbial Diet Ensure Enlive TID Megace 400mg PO BID Prophylaxis: Protonix SCDs contraindicated 2/2 edema; AC contraindicated 2/2 pancytopenia PT/OT DNR/DNI Dispo: Prognosis is very poor. Family discussing hospice options with hospice it sales representative, no decision thus far. Pigtail in place for palliative measures. Discussed with Dr. Lindsay Amato, PGY-1
[2019-01-24 08:18] LABS: ALB/GLOB RATIO 0.6 (1.0-2.1); ALBUMIN 1.3 g/dL (3.5-5.0); ALT/SGPT 16 U/L (21-72); AST/SGOT 9 U/L (17-59); BLOOD UREA NITROGEN 23 mg/dL (9-20); CALCIUM 7.9 mg/dl (8.6-10.4); GFR NON-AFRICAN AMERICAN > 60
--- NOTE | 2019-01-24 10:15 | US ---
PROCEDURE: Date of procedure: 01/21/2019 Procedure: 1. Placement of a right chest tube with ultrasound guidance, CPT 26090 2. Ultrasound guidance for procedure, CPT 50544 Medications: 6cc 1 percent lidocaine HISTORY: Large right pleural effusion and pneumothorax. TECHNIQUE: Following informed consent and procedure time-out, the patient's right chest was marked, prepped and draped in the usual sterile fashion. Ultrasound showed a large loculated right pleural effusion. After the skin was anesthetized with 1% lidocaine and the pt was sedated by the anesthesiologist, a [place] catheter was advanced under ultrasound guidance into the pleural space. The catheter was exchanged over an 035 guidewire and tract was dilated to accommodate a 8 [place] pigtail catheter formed within the pleural space. There is return of slight serosanguinous fluid. The catheter was secured to patient's skin. A xeroform dressing was applied. The catheter was then attached to a pleurovac. Postprocedure x-ray showed a right chest tube. IMPRESSION: Placement of an 8 [place] right chest tube. There were no immediate complications.
[2019-01-24] MEDS: Pantoprazole 40 mg EC Tab PO SCH (11:15)
[2019-01-24] MEDS: Megestrol Acetate 40 mg/ml Cup PO SCH ×2 (11:16→18:00)
--- NOTE | 2019-01-24 13:41 | RAD ---
Chest x-ray single frontal view History: Pneumothorax. Comparison: 01/21/2019 Findings: Right pleural drain at the right costophrenic angle. Persistent moderate right hydropneumothorax. Persistent moderate to large loculated left-sided pleural thickening and or effusion. Persistent prominent ill-defined consolidative and pleural parenchymal opacities seen throughout the left lung as well as within the right upper to mid lung zone. Persistent scattered nodular densities and opacities throughout both lungs. Volume loss in the left hemithorax. Atherosclerotic calcification at the aortic knob. Cardiomegaly. Degenerative changes in the spine and shoulders. Impression: Right pleural drain at the right costophrenic angle. Persistent moderate right hydropneumothorax. Persistent moderate to large loculated left-sided pleural thickening and or effusion. Persistent prominent ill-defined consolidative and pleural parenchymal opacities seen throughout the left lung as well as within the right upper to mid lung zone. Persistent scattered nodular densities and opacities throughout both lungs. Volume loss in the left hemithorax. Atherosclerotic calcification at the aortic knob. Cardiomegaly. Degenerative changes in the spine and shoulders.
--- NOTE | 2019-01-24 17:51 | CP.PCM.PN ---
Subjective - Date & Time of Evaluation Date of Evaluation: 01/24/19 Time of Evaluation: 10:00 - Subjective Subjective: Patient seen and examined at bedside. CXR shows persistent right pneumothorax with pigtail catheter in place. Shortness of breath improved. Afebrile. Physical Exam: General: Awake, alert, oriented; comfortable; not in any distress Cardio: Regular rhythm and rate; +S1 +S2 Pulm: Decreased breath sounds Abd: Soft, non-distended Assessment & Plan: Pleural Effusion, Persistent Right Pneumothorax - Status post pigtail catheter insertion - Continue present treatment - Prognosis poor Pancytopenia Objective - Vital Signs/Intake and Output Vital Signs (last 24 hours): Temp Pulse Resp BP Pulse Ox 97.4 F L 78 20 93/58 L 98 01/24/19 15:50 01/24/19 15:50 01/24/19 15:50 01/24/19 15:50 01/24/19 15:50 Intake and Output: 01/24/19 01/24/19 06:59 18:59 Intake Total 420 240 Output Total 100 20 Balance 320 220 - Medications Medications: Current Medications Acetaminophen (Tylenol 325mg Tab) 650 mg PO Q6 PRN PRN Reason: Pain, moderate (4-7) Last Admin: 01/11/19 19:32 Dose: 650 mg Acetaminophen (Tylenol 325mg Tab) 650 mg PO ONCE PRN PRN Reason: pre med Last Admin: 01/15/19 19:40 Dose: 650 mg Albuterol/Ipratropium (Duoneb 3 Mg/0.5 Mg (3 Ml) Ud) 3 ml INH RQ6 [facility] Last Admin: 01/24/19 13:35 Dose: 3 ml Diphenhydramine HCl (Benadryl) 25 mg PO ONCE PRN PRN Reason: pre med Last Admin: 01/03/19 14:39 Dose: 25 mg Docusate Sodium (Colace) 100 mg PO BID PRN PRN Reason: Constipation Last Admin: 01/16/19 17:31 Dose: 100 mg Furosemide (Lasix) 20 mg PO DAILY [facility] Last Admin: 01/24/19 11:15 Dose: 20 mg Guaifenesin (Robitussin) 200 mg PO Q4H [facility] Last Admin: 01/24/19 16:44 Dose: Not Given Linezolid (Zyvox) 600 mg PO BID [facility]; Protocol Last Admin: 01/24/19 11:14 Dose: 600 mg Lisinopril (Zestril) 5 mg PO DAILY [facility] Last Admin: 01/24/19 11:15 Dose: Not Given Megestrol Acetate (Megace) 400 mg PO BID [facility] Last Admin: 01/24/19 11:16 Dose: 400 mg Morphine Sulfate (Morphine) 1 mg IVP Q4 PRN PRN Reason: Pain, moderate (4-7) Ondansetron HCl (Zofran Odt) 4 mg PO Q6H PRN PRN Reason: Nausea/Vomiting Pantoprazole Sodium (Protonix Ec Tab) 40 mg PO DAILY [facility] Last Admin: 01/24/19 11:15 Dose: 40 mg Promethazine HCl (Phenergan Syrup) 6.25 mg PO Q6 PRN PRN Reason: Cough Last Admin: 01/12/19 17:49 Dose: 6.25 mg Saliva Substitute (First Magic Mouthwash) 5 ml PO Q6 [facility] Last Admin: 01/24/19 11:20 Dose: 5 ml Scopolamine (Transderm-Scop) 1 patch TD Q3D [facility] Last Admin: 01/23/19 10:51 Dose: 1 patch Tamsulosin HCl (Flomax) 0.4 mg PO BID [facility] Last Admin: 01/24/19 11:15 Dose: 0.4 mg - Labs Labs: 01/24/19 06:51 01/24/19 06:51 PT 14.8 SECONDS (9.7-12.2) H 01/21/19 11:03 INR 1.4 01/21/19 11:03 APTT 28 SECONDS (21-34) 01/21/19 11:03 Assessment and Plan (1) Pleural effusion, left Status: Acute (2) Pancytopenia Status: Acute (3) Pneumonia Status: Acute
[2019-01-25] MEDS: guaiFENesin 200 mg/10 ml Syrup UD PO SCH ×6 (00:10→20:35)
[2019-01-25] MEDS: Mag&Al/Simet/Diphen/Lido 237 ML KIT PO SCH ×4 (00:15→17:21)
[2019-01-25] MEDS: Albuterol-Ipratrop 3 mg / 0.5 (3 ml) UD INH SCH ×4 (01:32→20:27)
--- NOTE | 2019-01-25 07:14 | CP.PCM.PN ---
Subjective - Date & Time of Evaluation Date of Evaluation: 01/25/19 Time of Evaluation: 11:00 - Subjective Subjective: Medicine progress note for Dr. Montoya Pt seen and examined at bedside. Pt did not receive transfusion of 1 unit pRBC overnight as midline access was lost. Pt denies fever, chills, chest pain, sob, abdominal pain, n/v/d, hematochezia, melena, hematuria. Pt is eating well, and having urinary and bowel movements without problems. Objective - Vital Signs/Intake and Output Vital Signs (last 24 hours): Temp Pulse Resp BP Pulse Ox 97.6 F 79 20 109/60 98 01/25/19 00:00 01/25/19 00:00 01/25/19 00:00 01/25/19 00:00 01/25/19 00:00 Intake and Output: 01/25/19 01/25/19 06:59 18:59 Intake Total 170 Output Total 51 Balance 119 - Medications Medications: Current Medications Acetaminophen (Tylenol 325mg Tab) 650 mg PO Q6 PRN PRN Reason: Pain, moderate (4-7) Last Admin: 01/11/19 19:32 Dose: 650 mg Acetaminophen (Tylenol 325mg Tab) 650 mg PO ONCE PRN PRN Reason: pre med Last Admin: 01/15/19 19:40 Dose: 650 mg Albuterol/Ipratropium (Duoneb 3 Mg/0.5 Mg (3 Ml) Ud) 3 ml INH RQ6 [facility] Last Admin: 01/25/19 01:32 Dose: Not Given Diphenhydramine HCl (Benadryl) 25 mg PO ONCE PRN PRN Reason: pre med Last Admin: 01/03/19 14:39 Dose: 25 mg Docusate Sodium (Colace) 100 mg PO BID PRN PRN Reason: Constipation Last Admin: 01/16/19 17:31 Dose: 100 mg Furosemide (Lasix) 20 mg PO DAILY [facility] Last Admin: 01/24/19 11:15 Dose: 20 mg Guaifenesin (Robitussin) 200 mg PO Q4H [facility] Last Admin: 01/25/19 05:49 Dose: Not Given Linezolid (Zyvox) 600 mg PO BID [facility]; Protocol Last Admin: 01/24/19 18:00 Dose: 600 mg Lisinopril (Zestril) 5 mg PO DAILY [facility] Last Admin: 01/24/19 11:15 Dose: Not Given Megestrol Acetate (Megace) 400 mg PO BID [facility] Last Admin: 01/24/19 18:00 Dose: 400 mg Morphine Sulfate (Morphine) 1 mg IVP Q4 PRN PRN Reason: Pain, moderate (4-7) Ondansetron HCl (Zofran Odt) 4 mg PO Q6H PRN PRN Reason: Nausea/Vomiting Pantoprazole Sodium (Protonix Ec Tab) 40 mg PO DAILY [facility] Last Admin: 01/24/19 11:15 Dose: 40 mg Promethazine HCl (Phenergan Syrup) 6.25 mg PO Q6 PRN PRN Reason: Cough Last Admin: 01/12/19 17:49 Dose: 6.25 mg Saliva Substitute (First Magic Mouthwash) 5 ml PO Q6 [facility] Last Admin: 01/25/19 06:17 Dose: 5 ml Scopolamine (Transderm-Scop) 1 patch TD Q3D [facility] Last Admin: 01/23/19 10:51 Dose: 1 patch Tamsulosin HCl (Flomax) 0.4 mg PO BID [facility] Last Admin: 01/24/19 18:00 Dose: 0.4 mg - Labs Labs: 01/24/19 06:51 01/24/19 06:51 PT 14.8 SECONDS (9.7-12.2) H 01/21/19 11:03 INR 1.4 01/21/19 11:03 APTT 28 SECONDS (21-34) 01/21/19 11:03 - Additional Findings Additional findings: - Constitutional Appears: Non-toxic, No Acute Distress, Cachectic, Chronically Ill - Head Exam Head Exam: ATRAUMATIC, NORMAL INSPECTION, NORMOCEPHALIC - Eye Exam Eye Exam: EOMI, Normal appearance - ENT Exam ENT Exam: Mucous Membranes Moist, Normal Exam - Neck Exam Neck Exam: Normal Inspection - Respiratory Exam Respiratory Exam: Decreased Breath Sounds, Rales (left), Rhonchi (right). absent: Wheezes, Respiratory Distress Additional comments: right pigtail in place, with minimal serous output - Cardiovascular Exam Cardiovascular Exam: REGULAR RHYTHM, +S1, +S2. absent: Tachycardia - GI/Abdominal Exam GI & Abdominal Exam: Soft, Normal Bowel Sounds. absent: Distended, Tenderness - Extremities Exam Extremities Exam: Anasarca, with 3+ pitting edema to the bilateral upper (to the forearms) and lower extremities (to the knees), - Neurological Exam Neurological Exam: Awake - Psychiatric Exam Psychiatric exam: Flat Affect. Depressed mood. - Skin Skin Exam: Dry, Pallor, Warm. 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 Plan: Right sided hydropneumonthorax Deputy [facility] Dr. Thurston consulted ID Dr. Ferrari consulted Management: - PIGTAIL IN PLACE 01/21/19, with minimal serous drainage overnight. Plan to discontinue as per pulm. Zyvox 600mg po BID, PO abx per ID 2/2 intermittently non-functioning midline Duonebs q6 Lasix 20mg PO daily Robitussin 200mg q4h Phenergan 6.25mg po q6 prn Scopolamine patch Imaging: - Chest CT (01/18/19) shows There has been marked increase in size right-sided effusion which is now so sedated with a anteriorly located moderate-sized pneumothorax (hydropneumothorax). Note the right-sided effusion exhibits a somewhat lobular configuration which could be secondary to chronic scarring and fibrosis with tethering of the lung to the pleural surface rather than loculated components. Associated mild atelectasis right lower as well as right upper lobes. Vague ground-glass opacities seen in the aerated portions of the upper right upper lobe although significant underlying centrilobular. 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 There is a small to medium size left-sided effusion with significant atelectatic changes of the left entire left lung. Abdominal ascites. Redemonstrated are multiple low-attenuation hepatic lesions. -CXR (01/24) shows right pleural drain at the right costophrenic angle. Presistent mod right hydropneumothorax, mod to large loculated left-sided pleural thickening and/or effusion, prominent ill-defined consolidative and pleural parenchymal opacities seen throughout the left lung as well as within the right upper to mid lung zone, scattered nodular densities and opacities throughout both lungs. Volume loss in the left hemithorax. Atherosclerotic calcification at aoritic knob. Cardiomegaly. Pancytopenia 2/2 AML No blood draw was able to be done today as pt without midline and with anasarca. Oncologist Dr. Bobby consulted Hgb 6.9, plts 58 Zofran 4mg Q6 PRN Transfuse PRN Right midline inserted 01/17/19, access lost night of 01/24. PICC not inserted 2/2 pancytopenia Multiple attempts to place EJ PIV by myself and senior resident, but unsuccessful. Pt informed of plan to insert femoral TLC for daily labs and transfusion of 1 unit of pRBCs, but pt ultimately decided to have PICC line nurse insert midline tomorrow. I informed the pt that his Hgb is below 7.0, and that if he develops symptomatic anemia he may need an emergency transfusion. He is okay with this and would like the midline to placed tomorrow. Anasarca Lasix 20mg po qd Albumin 1.3 yesterday, repletion not indicated 2/2 poor status and worsening hydropneumothorax Morphine 1mg q6 prn pain in LE 2/2 edema Hypotension Secondary to hypoalbuminemia Continue to monitor Lisinopril 5mg po qd, holding parameters Abdominal Pain, resolved Abd US: low-attenuation lesion L lobe liver. Liver exhibits increased echotexture secondary to fatty infiltration or hepatocellular disease. splenomegaly. several tiny echogenic foci adherent to gallbladder wall possibly representing polyps. slight increased renal echotexture. Colace PRN for Constipation Zofran prn History of BPH Flomax 0.4mg PO BID Bladder scans PRN History of HTN Lisinopril 5mg PO daily Holding parameters Poor Nutrition encourage PO intake Low Microbial Diet Ensure Enlive TID Megace 400mg PO BID Prophylaxis: Protonix SCDs contraindicated 2/2 edema; AC contraindicated 2/2 pancytopenia PT/OT DNR/DNI Palliative care, Cailin, re-consulted. See note. Dispo: Prognosis is very poor. Palliative care nurse reconsulted and spoke with family. Pt is in the process of being evaluated for home hospice, no decision thus far. Pigtail to be removed as per pulmonology. Plan to have midline placed tomorrow by PICC line RN with subsequent lab draw and blood transfusion.
[2019-01-25] MEDS: Pantoprazole 40 mg EC Tab PO SCH (09:57)
[2019-01-25] MEDS: Megestrol Acetate 40 mg/ml Cup PO SCH ×2 (09:57→17:22)
--- NOTE | 2019-01-25 13:21 | CP.PCM.CON ---
History of Present Illness - History of Present Illness History of Present Illness: Palliative consult requested by Doctor Therese for goals of care discussion, possible comfort care only Patient is a 78 yo male known to me from previous admissions. Patient was admitted from home with SOB, yellow sputum production, O2 Sat < 80 % and decreased appetite. These symptoms began after the chemo Tx. Patient also complained of sore throat and difficulties swallowing. Daughter called 911. CXR revealed left lung density, no PE, and large right pleural effusion. Right pig tale catheter inserted with some relief with breathing. Patient received multiple blood transfusions on this admission. Hb 6.9 this morning. Comfort care at home was suggested due to very poor prognosis and Palliative Care was called to assist in the process. PMH: newly diagnosed leukemia, on chemo Soc. Hx: quit smoking 20 years ago, was going to gym daily Fam. Hx: No Hx of cancer Review of Systems - Constitutional Constitutional: Lethargy, Malaise, Weight Loss, Weakness - EENT Eyes: absent: As Per HPI, Blind Spots, Blurred Vision, Change in Vision, Decreased Night Vision, Diplopia, Discharge, Dry Eye, Exophthalmos, Floaters, Irritation, Itchy Eyes, Loss of Peripheral Vision, Pain, Photophobia, Requires Corrective Lenses, Sees Flashes, Spots in Vision, Tunnel Vision, Other Visual Disturbances, Loss of Vision, Other Ears: absent: As Per HPI, Decreased Hearing, Ear Discharge, Ear Pain, Tinnitus, Abnormal Hearing, Disequilibrium, Dizziness, Other Nose/Mouth/Throat: absent: As Per HPI, Epistaxis, Nasal Congestion, Nasal Discharge, Nasal Obstruction, Nasal Trauma, Nose Pain, Post Nasal Drip, Sinus Pain, Sinus Pressure, Bleeding Gums, Change in Voice, Dental Pain, Dry Mouth, Dysphagia, Halitosis, Hoarsness, Lip Swelling, Mouth Lesions, Mouth Pain, Odynophagia, Sore Throat, Throat Swelling, Tongue Swelling, Facial Pain, Neck Pain, Neck Mass, Other - Cardiovascular Cardiovascular: Dyspnea on Exertion, Pedal Edema - Respiratory Respiratory: Cough, Dyspnea, Dyspnea on Exertion - Gastrointestinal Gastrointestinal: Nausea - Genitourinary Genitourinary: absent: As Per HPI, Change in Urinary Stream, Difficulty Urinating, Dysuria, Flank Pain, Hematuria, Pyuria, Nocturia, Urinary Incontinence, Urinary Frequency, Urinary Hesitance, Urinary Urgency, Voiding Freq/Small Amts, Freq UTI, Hx Renal/Bladder Calculi, Hx /Renal Surgery, Bladder Distension, Other - Musculoskeletal Musculoskeletal: Limited Range of Motion, Muscle Weakness, Stiffness - Integumentary Integumentary: absent: As Per HPI, Acne, Alopecia, Bleeding Lesions, Change in Hair, Change in Nails, Change in Pigmentation, Changing Lesions, Dry Skin, Erythema, Furuncle, Hirsutism, Lesions, New Lesions, Non-Healing Lesions, Photosensitivity, Pruritus, Rash, Skin Pain, Skin Ulcer, Sores, Striae, Swelling, Unusual Bruising, Wounds, Jaundice, Other - Neurological Neurological: absent: As Per HPI, Abnormal Gait, Abnormal Hearing, Abnormal Mo vements, Abnormal Speech, Behavioral Changes, Burning Sensations, Confusion, Convulsions, Disequilibrium, Dizziness, Numbness, Focal Weakness, Frequent Falls, Headaches, Lack of Coordination, Loss of Vision, Memory Loss, Paresthesias, Radicular Pain, Restless Legs, Sensory Deficit, Syncope, Tingling, Tremor, Vertigo, Weakness, Other Visual Disturbances, Other - Psychiatric Psychiatric: absent: As Per HPI, Abnormal Sleep Pattern, Anhedonia, Anxiety, Auditory Hallucinations, Behavioral Changes, Change in Appetite, Change in Libido, Confusion, Depression, Difficulty Concentrating, Hallucinations, Homicidal Ideation, Hopelessness, Irritability, Memory Loss, Mood Swings, Panic Attacks, Paranoia, Suicidal Ideation, Visual Hallucinations, Tactile Hallucinati ons, Other - Endocrine Endocrine: absent: As Per HPI, Change in Body Appearance, Change in Libido, Cold Intolorance, Deepening of Voice, Excessive Sweating, Fatigue, Flushing, Heat Intolorance, Increase in Ring/Shoe/Hat Size, Palpitations, Polydipsia, Polyphagi a, Polyuria, Other - Hematologic/Lymphatic Hematologic: absent: As Per HPI, Easy Bleeding, Easy Bruising, Lymphadenopathy, Other Past Patient History - Infectious Disease Hx of Infectious Diseases: None - Tetanus Immunizations Tetanus Immunization: Unknown - Past Medical History & Family History Past Medical History?: Yes - Past Social History Smoking Status: Former Smoker - CARDIAC Hx Pacemaker: No - PULMONARY Hx Chronic Obstructive Pulmonary Disease (COPD): Yes Hx Pneumonia: Yes - NEUROLOGICAL Hx Neurological Disorder: No - HEENT Hx HEENT Problems: Yes Hx Cataracts: Yes - RENAL Hx Chronic Kidney Disease: No - ENDOCRINE/METABOLIC Hx Endocrine Disorders: No - HEMATOLOGICAL/ONCOLOGICAL Hx Cancer: Yes - INTEGUMENTARY Hx Dermatological Problems: No - MUSCULOSKELETAL/RHEUMATOLOGICAL Hx Musculoskeletal Disorders: No Hx Falls: No - GASTROINTESTINAL Hx Gastrointestinal Disorders: Yes Hx Constipation: Yes - GENITOURINARY/GYNECOLOGICAL Hx Genitourinary Disorders: Yes Hx Prostate Problems: Yes (enlarge prostate) - PSYCHIATRIC Hx Substance Use: No - SURGICAL HISTORY Hx Mastectomy: No - ANESTHESIA Hx Anesthesia: No Meds Allergies/Adverse Reactions: Allergies Allergy/AdvReac Type Severity Reaction Status Date / Time No Known Allergies Allergy Verified 12/29/18 06:08 - Medications Medications: Current Medications Acetaminophen (Tylenol 325mg Tab) 650 mg PO Q6 PRN PRN Reason: Pain, moderate (4-7) Last Admin: 01/11/19 19:32 Dose: 650 mg Acetaminophen (Tylenol 325mg Tab) 650 mg PO ONCE PRN PRN Reason: pre med Last Admin: 01/15/19 19:40 Dose: 650 mg Albuterol/Ipratropium (Duoneb 3 Mg/0.5 Mg (3 Ml) Ud) 3 ml INH RQ6 [facility] Last Admin: 01/25/19 08:05 Dose: 3 ml Diphenhydramine HCl (Benadryl) 25 mg PO ONCE PRN PRN Reason: pre med Last Admin: 01/03/19 14:39 Dose: 25 mg Docusate Sodium (Colace) 100 mg PO BID PRN PRN Reason: Constipation Last Admin: 01/16/19 17:31 Dose: 100 mg Furosemide (Lasix) 20 mg PO DAILY [facility] Last Admin: 01/25/19 09:56 Dose: 20 mg Guaifenesin (Robitussin) 200 mg PO Q4H [facility] Last Admin: 01/25/19 09:58 Dose: Not Given Linezolid (Zyvox) 600 mg PO BID [facility]; Protocol Last Admin: 01/25/19 10:03 Dose: 600 mg Lisinopril (Zestril) 5 mg PO DAILY [facility] Last Admin: 01/25/19 09:58 Dose: Not Given Megestrol Acetate (Megace) 400 mg PO BID [facility] Last Admin: 01/25/19 09:57 Dose: 400 mg Morphine Sulfate (Morphine) 1 mg IVP Q4 PRN PRN Reason: Pain, moderate (4-7) Ondansetron HCl (Zofran Odt) 4 mg PO Q6H PRN PRN Reason: Nausea/Vomiting Pantoprazole Sodium (Protonix Ec Tab) 40 mg PO DAILY [facility] Last Admin: 01/25/19 09:57 Dose: 40 mg Promethazine HCl (Phenergan Syrup) 6.25 mg PO Q6 PRN PRN Reason: Cough Last Admin: 01/12/19 17:49 Dose: 6.25 mg Saliva Substitute (First Magic Mouthwash) 5 ml PO Q6 [facility] Last Admin: 01/25/19 06:17 Dose: 5 ml Scopolamine (Transderm-Scop) 1 patch TD Q3D [facility] Last Admin: 01/23/19 10:51 Dose: 1 patch Tamsulosin HCl (Flomax) 0.4 mg PO BID [facility] Last Admin: 01/25/19 09:58 Dose: 0.4 mg Physical Exam - Constitutional Appears: Chronically Ill - Head Exam Head Exam: ATRAUMATIC, NORMAL INSPECTION, NORMOCEPHALIC - Eye Exam Eye Exam: EOMI, Normal appearance, PERRL Pupil Exam: NORMAL ACCOMODATION, PERRL - ENT Exam ENT Exam: Mucous Membranes Dry, Normal Exam - Neck Exam Neck exam: Positive for: Normal Inspection - Respiratory Exam Respiratory Exam: Decreased Breath Sounds, Rhonchi, NORMAL BREATHING PATTERN - Cardiovascular Exam Cardiovascular Exam: Tachycardia, Irregular Rhythm - GI/Abdominal Exam GI & Abdominal Exam: Normal Bowel Sounds, Soft - Rectal Exam Rectal Exam: Deferred - Exam Additional comments: Traylor cath - Extremities Exam Additional comments: significant pitting edema to upper arms - Back Exam Back exam: NORMAL INSPECTION - Neurological Exam Neurological exam: Alert, Oriented x3 - Psychiatric Exam Psychiatric exam: Flat Affect - Skin Skin Exam: Dry, Pallor, Pallor Results - Vital Signs Recent Vital Signs: Last Vital Signs Temp 97.7 F 01/25/19 07:00 Pulse 93 H 01/25/19 07:00 Resp 20 01/25/19 07:00 BP 108/61 01/25/19 09:56 Pulse Ox 99 01/25/19 07:00 - Labs Result Diagrams: 01/24/19 06:51 01/24/19 06:51 Labs: Laboratory Results - last 24 hr 01/24/19 14:18 Blood Type B POSITIVE Antibody Screen Negative Crossmatch See Detail Assessment & Plan - Assessment and Plan (Free Text) Assessment: Palliative consult DNR/DNI, POLST on chart, PPS 20% I reviewed all medical records, diagnostic studies, examined and interviewed patient in the bed Patient is alert, oriented X 3 with affect that is flat, looking very sick. Patient is verbal and answers questions appropriately. Skin pale, Hb 6.9, due for blood transfusion. Significant pitting edema to upper extremities. Breath sounds diminished, right chest tube, drainage minimal, denies SOB. O2sat 99 % 3 L O2. HR 89, BP 89/49, denies chest pain. Abdomen soft, poor appetite, complains of nausea, denies constipation. Whipping edema to upper arms, limited ROM, patient is bed ridden at great risk of pressure sores. WBC 0.3 on reversible isolation. Hb 6.9, afebrile. BP 89/49, Hr 89, afebrile. Goals of care discussed with patient and his . [facility] medical inpatient services informed me that Doctor therese spoke with patient this morning about comfort care at home. I reinforced the idea with more information about it especially given patient's pancytopenia and high risks for hospital accrued infection. Patient stated that he would want to go home and he was very appreciative for all care he was given here. later around 2 pm I spoke to patient's daughter over the phone, to make sure the comfort care was well understood across the family and she supported the idea. I made sure patient and his family understood that Chemo Tx is not option any more due to condition . I shared this with r[facility] medical inpatient services. Suggested patient is given blood transfusion before discharge. Spoke to Doctor Thurston who will discuss the Pig tail tube care or removal of it. Impression * Severe debility due to Leukemia * Weight loss * bed ridden * Whipping edema * Pancytopenia * Very poor prognosis, meaningful recovery is not expected. I feel that patient will in month or so. Suggestion * Comfort care at home at end of this patient's life would be the most beneficial for patient. * Pleasure food * promote skin integrity and comfort in bed * Blood transfusion before discharge * Pig tail catheter care per Doctor Thurston Palliative care will sign off at this time. Advance care planing 60 min
--- NOTE | 2019-01-25 14:00 | CP.PCM.PN ---
Subjective - Date & Time of Evaluation Date of Evaluation: 01/25/19 Time of Evaluation: 09:00 - Subjective Subjective: Patient seen and examined Pigtail catheter in place draining minimal fluid Patient not eating with anasarca Afebrile As per palliative care family agreed for hospice Objective - Vital Signs/Intake and Output Vital Signs (last 24 hours): Temp Pulse Resp BP Pulse Ox 97.7 F 93 H 20 108/61 99 01/25/19 07:00 01/25/19 07:00 01/25/19 07:00 01/25/19 09:56 01/25/19 07:00 Intake and Output: 01/25/19 01/25/19 06:59 18:59 Intake Total 170 Output Total 51 Balance 119 - Medications Medications: Current Medications Acetaminophen (Tylenol 325mg Tab) 650 mg PO Q6 PRN PRN Reason: Pain, moderate (4-7) Last Admin: 01/11/19 19:32 Dose: 650 mg Acetaminophen (Tylenol 325mg Tab) 650 mg PO ONCE PRN PRN Reason: pre med Last Admin: 01/15/19 19:40 Dose: 650 mg Albuterol/Ipratropium (Duoneb 3 Mg/0.5 Mg (3 Ml) Ud) 3 ml INH RQ6 [facility] Last Admin: 01/25/19 08:05 Dose: 3 ml Diphenhydramine HCl (Benadryl) 25 mg PO ONCE PRN PRN Reason: pre med Last Admin: 01/03/19 14:39 Dose: 25 mg Docusate Sodium (Colace) 100 mg PO BID PRN PRN Reason: Constipation Last Admin: 01/16/19 17:31 Dose: 100 mg Furosemide (Lasix) 20 mg PO DAILY [facility] Last Admin: 01/25/19 09:56 Dose: 20 mg Guaifenesin (Robitussin) 200 mg PO Q4H [facility] Last Admin: 01/25/19 09:58 Dose: Not Given Linezolid (Zyvox) 600 mg PO BID [facility]; Protocol Last Admin: 01/25/19 10:03 Dose: 600 mg Lisinopril (Zestril) 5 mg PO DAILY [facility] Last Admin: 01/25/19 09:58 Dose: Not Given Megestrol Acetate (Megace) 400 mg PO BID [facility] Last Admin: 03/19/19 09:57 Dose: 400 mg Morphine Sulfate (Morphine) 1 mg IVP Q4 PRN PRN Reason: Pain, moderate (4-7) Ondansetron HCl (Zofran Odt) 4 mg PO Q6H PRN PRN Reason: Nausea/Vomiting Pantoprazole Sodium (Protonix Ec Tab) 40 mg PO DAILY [facility] Last Admin: 01/25/19 09:57 Dose: 40 mg Promethazine HCl (Phenergan Syrup) 6.25 mg PO Q6 PRN PRN Reason: Cough Last Admin: 01/12/19 17:49 Dose: 6.25 mg Saliva Substitute (First Magic Mouthwash) 5 ml PO Q6 [facility] Last Admin: 01/25/19 06:17 Dose: 5 ml Scopolamine (Transderm-Scop) 1 patch TD Q3D [facility] Last Admin: 01/23/19 10:51 Dose: 1 patch Tamsulosin HCl (Flomax) 0.4 mg PO BID [facility] Last Admin: 01/25/19 09:58 Dose: 0.4 mg - Labs Labs: 01/24/19 06:51 01/24/19 06:51 PT 14.8 SECONDS (9.7-12.2) H 01/21/19 11:03 INR 1.4 01/21/19 11:03 APTT 28 SECONDS (21-34) 01/21/19 11:03 - Head Exam Head Exam: ATRAUMATIC, NORMOCEPHALIC - Neck Exam Neck Exam: Normal Inspection - Respiratory Exam Respiratory Exam: Decreased Breath Sounds - Cardiovascular Exam Cardiovascular Exam: REGULAR RHYTHM - GI/Abdominal Exam GI & Abdominal Exam: Soft, Normal Bowel Sounds Assessment and Plan (1) Pleural effusion, left Assessment & Plan: Remove pigtail catheter Hospice care Prognosis poor Status: Acute (2) Pancytopenia Status: Acute (3) Pneumonia Status: Acute
[2019-01-26] MEDS: guaiFENesin 200 mg/10 ml Syrup UD PO SCH ×6 (00:35→20:22)
[2019-01-26] MEDS: Mag&Al/Simet/Diphen/Lido 237 ML KIT PO SCH ×5 (00:35→23:56)
--- NOTE | 2019-01-26 01:58 | CP.PCM.PN ---
Subjective - Date & Time of Evaluation Date of Evaluation: 01/24/19 Time of Evaluation: 10:00 - Subjective Subjective: Fatigued. Objective - Vital Signs/Intake and Output Vital Signs (last 24 hours): Temp Pulse Resp BP Pulse Ox 97.9 F 109 H 20 86/45 L 98 01/26/19 00:00 01/26/19 00:00 01/26/19 00:00 01/26/19 00:00 01/26/19 00:00 Intake and Output: 01/25/19 01/26/19 18:59 06:59 Intake Total 150 120 Output Total 0 50 Balance 150 70 - Medications Medications: Current Medications Acetaminophen (Tylenol 325mg Tab) 650 mg PO Q6 PRN PRN Reason: Pain, moderate (4-7) Last Admin: 01/11/19 19:32 Dose: 650 mg Acetaminophen (Tylenol 325mg Tab) 650 mg PO ONCE PRN PRN Reason: pre med Last Admin: 01/15/19 19:40 Dose: 650 mg Albuterol/Ipratropium (Duoneb 3 Mg/0.5 Mg (3 Ml) Ud) 3 ml INH RQ6 [facility] Last Admin: 01/25/19 20:27 Dose: 3 ml Diphenhydramine HCl (Benadryl) 25 mg PO ONCE PRN PRN Reason: pre med Last Admin: 01/03/19 14:39 Dose: 25 mg Docusate Sodium (Colace) 100 mg PO BID PRN PRN Reason: Constipation Last Admin: 01/25/19 14:34 Dose: 100 mg Furosemide (Lasix) 20 mg PO DAILY [facility] Last Admin: 01/25/19 09:56 Dose: 20 mg Guaifenesin (Robitussin) 200 mg PO Q4H [facility] Last Admin: 01/26/19 00:35 Dose: Not Given Linezolid (Zyvox) 600 mg PO BID [facility]; Protocol Last Admin: 01/25/19 17:22 Dose: 600 mg Lisinopril (Zestril) 5 mg PO DAILY [facility] Last Admin: 01/25/19 09:58 Dose: Not Given Megestrol Acetate (Megace) 400 mg PO BID [facility] Last Admin: 01/25/19 17:22 Dose: 400 mg Morphine Sulfate (Morphine) 1 mg IVP Q4 PRN PRN Reason: Pain, moderate (4-7) Ondansetron HCl (Zofran Odt) 4 mg PO Q6H PRN PRN Reason: Nausea/Vomiting Pantoprazole Sodium (Protonix Ec Tab) 40 mg PO DAILY [facility] Last Admin: 01/25/19 09:57 Dose: 40 mg Promethazine HCl (Phenergan Syrup) 6.25 mg PO Q6 PRN PRN Reason: Cough Last Admin: 01/12/19 17:49 Dose: 6.25 mg Saliva Substitute (First Magic Mouthwash) 5 ml PO Q6 [facility] Last Admin: 01/26/19 00:35 Dose: Not Given Scopolamine (Transderm-Scop) 1 patch TD Q3D [facility] Last Admin: 01/23/19 10:51 Dose: 1 patch Tamsulosin HCl (Flomax) 0.4 mg PO BID [facility] Last Admin: 01/25/19 17:22 Dose: 0.4 mg - Labs Labs: 01/24/19 06:51 01/24/19 06:51 PT 14.8 SECONDS (9.7-12.2) H 01/21/19 11:03 INR 1.4 01/21/19 11:03 APTT 28 SECONDS (21-34) 01/21/19 11:03 - Constitutional Appears: Cachectic - Head Exam Head Exam: ATRAUMATIC - Eye Exam Eye Exam: Normal appearance - ENT Exam ENT Exam: Mucous Membranes Dry - Respiratory Exam Respiratory Exam: Decreased Breath Sounds - Cardiovascular Exam Cardiovascular Exam: +S1, +S2 - GI/Abdominal Exam GI & Abdominal Exam: Normal Bowel Sounds - Extremities Exam Extremities Exam: Pedal Edema Assessment and Plan (1) 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
--- NOTE | 2019-01-26 02:03 | CP.PCM.PN ---
Subjective - Date & Time of Evaluation Date of Evaluation: 01/25/19 Time of Evaluation: 16:00 - Subjective Subjective: Fatigued. Wants to go home, explained the patient is no longer a candidate for chemotherapy. considering home hospice. Objective - Vital Signs/Intake and Output Vital Signs (last 24 hours): Temp Pulse Resp BP Pulse Ox 97.9 F 109 H 20 86/45 L 98 01/26/19 00:00 01/26/19 00:00 01/26/19 00:00 01/26/19 00:00 01/26/19 00:00 Intake and Output: 01/25/19 01/26/19 18:59 06:59 Intake Total 150 120 Output Total 0 50 Balance 150 70 - Medications Medications: Current Medications Acetaminophen (Tylenol 325mg Tab) 650 mg PO Q6 PRN PRN Reason: Pain, moderate (4-7) Last Admin: 01/11/19 19:32 Dose: 650 mg Acetaminophen (Tylenol 325mg Tab) 650 mg PO ONCE PRN PRN Reason: pre med Last Admin: 01/15/19 19:40 Dose: 650 mg Albuterol/Ipratropium (Duoneb 3 Mg/0.5 Mg (3 Ml) Ud) 3 ml INH RQ6 [facility] Last Admin: 01/25/19 20:27 Dose: 3 ml Diphenhydramine HCl (Benadryl) 25 mg PO ONCE PRN PRN Reason: pre med Last Admin: 01/03/19 14:39 Dose: 25 mg Docusate Sodium (Colace) 100 mg PO BID PRN PRN Reason: Constipation Last Admin: 01/25/19 14:34 Dose: 100 mg Furosemide (Lasix) 20 mg PO DAILY [facility] Last Admin: 01/25/19 09:56 Dose: 20 mg Guaifenesin (Robitussin) 200 mg PO Q4H [facility] Last Admin: 01/26/19 00:35 Dose: Not Given Linezolid (Zyvox) 600 mg PO BID [facility]; Protocol Last Admin: 01/25/19 17:22 Dose: 600 mg Lisinopril (Zestril) 5 mg PO DAILY [facility] Last Admin: 01/25/19 09:58 Dose: Not Given Megestrol Acetate (Megace) 400 mg PO BID [facility] Last Admin: 01/25/19 17:22 Dose: 400 mg Morphine Sulfate (Morphine) 1 mg IVP Q4 PRN PRN Reason: Pain, moderate (4-7) Ondansetron HCl (Zofran Odt) 4 mg PO Q6H PRN PRN Reason: Nausea/Vomiting Pantoprazole Sodium (Protonix Ec Tab) 40 mg PO DAILY [facility] Last Admin: 01/25/19 09:57 Dose: 40 mg Promethazine HCl (Phenergan Syrup) 6.25 mg PO Q6 PRN PRN Reason: Cough Last Admin: 01/12/19 17:49 Dose: 6.25 mg Saliva Substitute (First Magic Mouthwash) 5 ml PO Q6 [facility] Last Admin: 01/26/19 00:35 Dose: Not Given Scopolamine (Transderm-Scop) 1 patch TD Q3D [facility] Last Admin: 01/23/19 10:51 Dose: 1 patch Tamsulosin HCl (Flomax) 0.4 mg PO BID [facility] Last Admin: 01/25/19 17:22 Dose: 0.4 mg - Labs Labs: 01/24/19 06:51 01/24/19 06:51 PT 14.8 SECONDS (9.7-12.2) H 01/21/19 11:03 INR 1.4 01/21/19 11:03 APTT 28 SECONDS (21-34) 01/21/19 11:03 - Constitutional Appears: Cachectic - Head Exam Head Exam: ATRAUMATIC - Eye Exam Eye Exam: Normal appearance - ENT Exam ENT Exam: Mucous Membranes Dry - Respiratory Exam Respiratory Exam: NORMAL BREATHING PATTERN - Cardiovascular Exam Cardiovascular Exam: +S1, +S2 - GI/Abdominal Exam GI & Abdominal Exam: Normal Bowel Sounds Assessment and Plan (1) Pancytopenia Assessment & Plan: transfusion support Status: Chronic (2) AML (acute myeloblastic leukemia) Assessment & Plan: supportive care Status: Chronic
[2019-01-26] MEDS: Albuterol-Ipratrop 3 mg / 0.5 (3 ml) UD INH SCH ×4 (03:12→19:05)
--- NOTE | 2019-01-26 07:14 | CP.PCM.PN ---
Subjective - Date & Time of Evaluation Date of Evaluation: 01/26/19 Time of Evaluation: 07:00 - Subjective Subjective: Patient examined at bedside with in room. Reports from nursing are that patient has been increasing agitated and demanding to leave. He reports he is tired of being in the hospital and wants to go home. He is agreeable to getting the PICC line, getting transfused 1 unit, and getting straight cathed 2/2 urinary retention. Pt reports worsening SOB, denies chest pain, abdominal pain. At later visit, discussion held with patient's daughter and hospice. Pt agrees he does not want to stay inpatient, and is receptive to inpatient hospice at another facility. Daughter will tour the facility this evening so that pt can be transferred there for symptomatic relief. Objective - Vital Signs/Intake and Output Vital Signs (last 24 hours): Temp Pulse Resp BP Pulse Ox 97.9 F 109 H 20 86/45 L 98 01/26/19 00:00 01/26/19 00:00 01/26/19 00:00 01/26/19 00:00 01/26/19 00:00 Intake and Output: 01/26/19 01/26/19 06:59 18:59 Intake Total 120 Output Total 50 Balance 70 - Medications Medications: Current Medications Acetaminophen (Tylenol 325mg Tab) 650 mg PO Q6 PRN PRN Reason: Pain, moderate (4-7) Last Admin: 01/11/19 19:32 Dose: 650 mg Acetaminophen (Tylenol 325mg Tab) 650 mg PO ONCE PRN PRN Reason: pre med Last Admin: 01/15/19 19:40 Dose: 650 mg Albuterol/Ipratropium (Duoneb 3 Mg/0.5 Mg (3 Ml) Ud) 3 ml INH RQ6 [facility] Last Admin: 01/26/19 03:12 Dose: Not Given Diphenhydramine HCl (Benadryl) 25 mg PO ONCE PRN PRN Reason: pre med Last Admin: 01/03/19 14:39 Dose: 25 mg Docusate Sodium (Colace) 100 mg PO BID PRN PRN Reason: Constipation Last Admin: 01/25/19 14:34 Dose: 100 mg Furosemide (Lasix) 20 mg PO DAILY [facility] Last Admin: 01/25/19 09:56 Dose: 20 mg Guaifenesin (Robitussin) 200 mg PO Q4H [facility] Last Admin: 01/26/19 05:13 Dose: Not Given Linezolid (Zyvox) 600 mg PO BID [facility]; Protocol Last Admin: 01/25/19 17:22 Dose: 600 mg Lisinopril (Zestril) 5 mg PO DAILY [facility] Last Admin: 01/25/19 09:58 Dose: Not Given Megestrol Acetate (Megace) 400 mg PO BID [facility] Last Admin: 01/25/19 17:22 Dose: 400 mg Morphine Sulfate (Morphine) 1 mg IVP Q4 PRN PRN Reason: Pain, moderate (4-7) Ondansetron HCl (Zofran Odt) 4 mg PO Q6H PRN PRN Reason: Nausea/Vomiting Pantoprazole Sodium (Protonix Ec Tab) 40 mg PO DAILY [facility] Last Admin: 01/25/19 09:57 Dose: 40 mg Promethazine HCl (Phenergan Syrup) 6.25 mg PO Q6 PRN PRN Reason: Cough Last Admin: 01/12/19 17:49 Dose: 6.25 mg Saliva Substitute (First Magic Mouthwash) 5 ml PO Q6 [facility] Last Admin: 01/26/19 07:13 Dose: Not Given Scopolamine (Transderm-Scop) 1 patch TD Q3D [facility] Last Admin: 01/23/19 10:51 Dose: 1 patch Tamsulosin HCl (Flomax) 0.4 mg PO BID [facility] Last Admin: 01/25/19 17:22 Dose: 0.4 mg - Labs Labs: 01/24/19 06:51 01/24/19 06:51 PT 14.8 SECONDS (9.7-12.2) H 01/21/19 11:03 INR 1.4 01/21/19 11:03 APTT 28 SECONDS (21-34) 01/21/19 11:03 - Constitutional Appears: Non-toxic, Agitated, Cachectic, Chronically Ill - Head Exam Head Exam: ATRAUMATIC, NORMAL INSPECTION, NORMOCEPHALIC - Eye Exam Eye Exam: EOMI, Normal appearance - ENT Exam ENT Exam: Mucous Membranes Dry, Normal Exam - Respiratory Exam Respiratory Exam: Accessory Muscle Use, Decreased Breath Sounds (right), Respiratory Distress (tachypneic, working to breathe). absent: NORMAL BREATHING PATTERN - Cardiovascular Exam Cardiovascular Exam: Tachycardia, REGULAR RHYTHM - GI/Abdominal Exam GI & Abdominal Exam: Soft, Normal Bowel Sounds. absent: Tenderness - Exam Exam: Bladder Distension - Extremities Exam Extremities Exam: Pedal Edema (2+), Tenderness. absent: Normal Inspection - Neurological Exam Neurological Exam: Alert, Awake - Psychiatric Exam Psychiatric exam: Agitated - Skin Skin Exam: Dry, Intact, Pallor, Warm Assessment and Plan - Assessment and Plan (Free Text) Assessment: 78 year old male with history of COPD, AML on chemo, pancytopenia 2/2 AML, BPH, HTN admitted for treatment of pancytopenia, s/p right pigtail for newly developed hyropneumothorax. Plan: Right sided hydropneumothorax Actuarial Manager Dr. Thurston consulted ID Dr. Ferrari consulted Management: - PIGTAIL IN PLACE 01/21/19, to suction Zyvox 600mg po BID, PO abx per ID 12/11 intermittently non-functioning midline Duonebs q6 Lasix 20mg PO daily Robitussin 200mg q4h Phenergan 6.25mg po q6 prn Scopolamine patch Pigtail will be replaced by Dr. Thurston, no improvement in function with flushing Imaging: - Chest CT (01/18/19) shows There has been marked increase in size right-sided effusion which is now so sedated with a anteriorly located moderate-sized pneumothorax (hydropneumothorax). Note the right-sided effusion exhibits a s omewhat lobular configuration which could be secondary to chronic scarring and fibrosis with tethering of the lung to the pleural surface rather than loculated components. Associated mild atelectasis right lower as well as right upper lobes. Vague ground-glass opacities seen in the aerated portions of the upper right upper lobe although significant underlying centrilobular. 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 There is a small to medium size left-sided effusion with significant atelectatic changes of the left entire left lung. Abdominal ascites. Redemonstrated are multiple low-attenuation hepatic lesions. -f/u repeat CXR today for evolution of hydropneumothorax s/p pigtail Pancytopenia 2/[address] Bobby consulted hgb 6.9, plts 58 on 01/24 Zofran 4mg Q6 PRN Transfuse PRN PICC inserted (3/20) transfused 1U PRBC today Anasarca improving lasix 20mg po qd albumin 1.3 today, repletion not indicated 2/2 poor status and worsening hydropneumothorax morphine 1mg q6 prn pain in LE 2/2 edema Hypotension Secondary to hypoalbuminemia Continue to monitor lisinopril 5mg po qd, holding parameters Abdominal Pain, resolved Abd US: low-attenuation lesion L lobe liver. Liver exhibits increased echotexture secondary to fatty infiltration or hepatocellular disease. splenomegaly. several tiny echogenic foci adherent to gallbladder wall possibly representing polyps. slight increased renal echotexture. Colace PRN for Constipation Zofran prn History of BPH Flomax 0.4mg PO BID Bladder scans PRN Straight cathed >500cc this morning History of HTN Lisinopril 5mg PO daily Holding parameters Poor Nutrition encourage PO intake Low Microbial Diet Ensure Enlive TID Megace 400mg PO BID Prophylaxis: Protonix SCDs contraindicated 2/2 edema; AC contraindicated 2/2 pancytopenia PT/OT DNR/DNI Dispo: To go to inpatient hospice once daughter tours facility. Poor prognosis. Symptomatic treatment Discussed with Dr. Lindsay Amato, PGY-1
--- NOTE | 2019-01-26 10:37 | RAD ---
Date of service: 01/26/2019 HISTORY: verify right PICC COMPARISON: 01/24/2019. FINDINGS: The right PICC line terminates at the cavoatrial junction. LUNGS: There is pulmonary hyperinflation. There is redemonstration of chronic fibrotic changes in the right upper lobe. There is loss of lung volume on the left with shift of trachea and mediastinum to the left. PLEURA: The right pigtail catheter terminates in the right lower pleural cavity. There is interval significant increase in the size of the no pneumothorax now large with compressive atelectasis of the right lung. There is persistent moderate left effusion loculated along the lateral chest wall. CARDIOVASCULAR: Shift of mediastinum to the left. There are atherosclerotic aortic calcifications. OSSEOUS STRUCTURES: Within normal limits for the patient's age. VISUALIZED UPPER ABDOMEN: Normal. OTHER FINDINGS: None. IMPRESSION: Right PICC line terminates at the cavoatrial junction. Interval significant increase in size of known right pneumothorax now large with compressive atelectasis of the right lung. Stable chronic fibrotic changes in the right upper lobe, persistent low lung volume on the left and stable moderate loculated left pleural effusion.
[2019-01-26] MEDS: Pantoprazole 40 mg EC Tab PO SCH (10:48)
[2019-01-26] MEDS: Megestrol Acetate 40 mg/ml Cup PO SCH ×2 (10:48→17:43)
--- NOTE | 2019-01-26 14:59 | CP.PCM.PN ---
Subjective - Date & Time of Evaluation Date of Evaluation: 01/26/19 Time of Evaluation: 14:00 - Subjective Subjective: Patient seen and examined at bedside. Per palliative care, family agreed for hospice. Awaiting transfusion. States he is having difficulty breathing. Afebrile. Physical Exam: General: Awake, alert, oriented; comfortable; not in any distress Cardio: Regular rhythm and rate; +S1 +S2 Pulm: Decreased breath sounds Abd: Soft, non-distended Assessment & Plan: Pleural Effusion, and worsening pneumothora - Flush pigtail cath and cont suction - Hospice care - Prognosis poor Pancytopenia Objective - Vital Signs/Intake and Output Vital Signs (last 24 hours): Temp Pulse Resp BP Pulse Ox 97.3 F L 122 H 20 93/60 L 96 01/26/19 14:24 01/26/19 14:24 01/26/19 14:24 01/26/19 14:24 01/26/19 07:59 Intake and Output: 01/26/19 01/26/19 06:59 18:59 Intake Total 120 20 Output Total 50 0 Balance 70 20 - Medications Medications: Current Medications Acetaminophen (Tylenol 325mg Tab) 650 mg PO Q6 PRN PRN Reason: Pain, moderate (4-7) Last Admin: 01/11/19 19:32 Dose: 650 mg Acetaminophen (Tylenol 325mg Tab) 650 mg PO ONCE PRN PRN Reason: pre med Last Admin: 01/15/19 19:40 Dose: 650 mg Albuterol/Ipratropium (Duoneb 3 Mg/0.5 Mg (3 Ml) Ud) 3 ml INH RQ6 [facility] Last Admin: 01/26/19 13:40 Dose: 3 ml Diphenhydramine HCl (Benadryl) 25 mg PO ONCE PRN PRN Reason: pre med Last Admin: 01/03/19 14:39 Dose: 25 mg Docusate Sodium (Colace) 100 mg PO BID PRN PRN Reason: Constipation Last Admin: 01/25/19 14:34 Dose: 100 mg Furosemide (Lasix) 20 mg PO DAILY [facility] Last Admin: 01/26/19 10:49 Dose: 20 mg Guaifenesin (Robitussin) 200 mg PO Q4H [facility] Last Admin: 01/26/19 12:45 Dose: Not Given Linezolid (Zyvox) 600 mg PO BID [facility]; Protocol Last Admin: 01/26/19 10:48 Dose: 600 mg Lisinopril (Zestril) 5 mg PO DAILY [facility] Last Admin: 01/26/19 10:50 Dose: Not Given Megestrol Acetate (Megace) 400 mg PO BID [facility] Last Admin: 01/26/19 10:48 Dose: 400 mg Morphine Sulfate (Morphine) 1 mg IVP Q4 PRN PRN Reason: Pain, moderate (4-7) Ondansetron HCl (Zofran Odt) 4 mg PO Q6H PRN PRN Reason: Nausea/Vomiting Pantoprazole Sodium (Protonix Ec Tab) 40 mg PO DAILY [facility] Last Admin: 01/26/19 10:48 Dose: 40 mg Promethazine HCl (Phenergan Syrup) 6.25 mg PO Q6 PRN PRN Reason: Cough Last Admin: 01/12/19 17:49 Dose: 6.25 mg Saliva Substitute (First Magic Mouthwash) 5 ml PO Q6 [facility] Last Admin: 01/26/19 12:45 Dose: Not Given Scopolamine (Transderm-Scop) 1 patch TD Q3D [facility] Last Admin: 01/26/19 10:48 Dose: 1 patch Tamsulosin HCl (Flomax) 0.4 mg PO BID [facility] Last Admin: 01/26/19 10:48 Dose: 0.4 mg - Labs Labs: 01/24/19 06:51 01/24/19 06:51 PT 14.8 SECONDS (9.7-12.2) H 01/21/19 11:03 INR 1.4 01/21/19 11:03 APTT 28 SECONDS (21-34) 01/21/19 11:03 Assessment and Plan (1) Pleural effusion, left Status: Acute (2) Pancytopenia Status: Acute (3) Pneumonia Status: Acute
--- NOTE | 2019-01-26 15:40 | RAD ---
Date of service: 01/26/2019 HISTORY: evaluate pneumothorax COMPARISON: 01/26/2019 at 0911 hr the 01/24/2019 study at 1019 hr FINDINGS: LUNGS: The left lung volume loss/40 mediastinal shift has further increased since the 01/24/2019 study a without significant change since 01/26/2019 at 0911 hr. Prominent left lung volume loss from atelectasis is inferred. Known if patient has had any prior concomitant left lung surgery. For this correlate clinically The inferred bronchiectatic changes with or without atelectasis in the right upper lung zone is similar. The nodular appearance in the right infrahilar partially collapsed right lung is similar in probably relates to atelectatic changes. PLEURA: The pigtail catheter in the right costophrenic base is similar. The slight interval increased pleural effusion inferred given the interval blunting here. The left pleural effusion with probable loculation along the left upper lateral hemithorax is similar to same-day study at 0911 hr.. Although the size of the right pneumothorax is not significantly changed since the study on the same day at 0911 hr it has increased since the 01/24/2019 study. The leftward mediastinal shift has also increased since 01/24/2019 study. Right pneumothorax under tension is a consideration. A left pneumothorax with interval progressive atelectatic changes in the left hemithorax is another consideration. CARDIOVASCULAR: There is presence of aortic atherosclerotic calcification on x-ray. Evaluation of the heart size is limited due to mediastinal shift. Element of left pulmonary vascular congestion due to crowding and volume loss is suspect. The right PICC line tip in the superior vena cava is similar OSSEOUS STRUCTURES: Bilateral shoulder arthrosis. VISUALIZED UPPER ABDOMEN: Normal. OTHER FINDINGS: None. IMPRESSION: The size of the right pneumothorax is similar with the 01/26/2019 study at 0911 hr but has increased since the 01/24/2019 study. The interval increased left lung volume loss and leftward mediastinal shift since 01/24/2019 is also concerning for a tension pneumothorax. The pigtail catheter in the right inferolateral pleural spaces similar position interval increased small right pleural effusion inferred. Comments: The findings of the right pneumothorax with leftward mediastinal shift concerning for a tension pneumothorax since 01/24/2019 but not significantly changed since 01/26/2019 at 0913 hr was called up to 310 hr and directly discussed with the nurseGretel taking care this patient at approximately 3:30 p.m. on 01/26/2019. The nurse requested that I speak with another physician at the time which I did, the right pneumothorax concern for tension changes since 01/24/2019 were then directly discussed with the physician ordering the chest x-ray Dr. Amato.
--- NOTE | 2019-01-26 21:20 | CP.PCM.PN ---
Subjective - Date & Time of Evaluation Date of Evaluation: 01/26/19 Time of Evaluation: 19:00 - Subjective Subjective: Wants to leave hospital, family to evaluate hospice facility Objective - Vital Signs/Intake and Output Vital Signs (last 24 hours): Temp Pulse Resp BP Pulse Ox 97.6 F 103 H 20 91/52 L 99 01/26/19 16:46 01/26/19 16:46 01/26/19 16:46 01/26/19 16:46 01/26/19 15:56 Intake and Output: 01/26/19 01/27/19 18:59 06:59 Intake Total 760 Output Total 670 Balance 90 - Medications Medications: Current Medications Acetaminophen (Tylenol 325mg Tab) 650 mg PO Q6 PRN PRN Reason: Pain, moderate (4-7) Last Admin: 01/11/19 19:32 Dose: 650 mg Acetaminophen (Tylenol 325mg Tab) 650 mg PO ONCE PRN PRN Reason: pre med Last Admin: 01/15/19 19:40 Dose: 650 mg Albuterol/Ipratropium (Duoneb 3 Mg/0.5 Mg (3 Ml) Ud) 3 ml INH RQ6 [facility] Last Admin: 01/26/19 19:05 Dose: 3 ml Diphenhydramine HCl (Benadryl) 25 mg PO ONCE PRN PRN Reason: pre med Last Admin: 01/03/19 14:39 Dose: 25 mg Docusate Sodium (Colace) 100 mg PO BID PRN PRN Reason: Constipation Last Admin: 01/25/19 14:34 Dose: 100 mg Furosemide (Lasix) 20 mg PO DAILY [facility] Last Admin: 01/26/19 10:49 Dose: 20 mg Guaifenesin (Robitussin) 200 mg PO Q4H [facility] Last Admin: 01/26/19 20:22 Dose: Not Given Linezolid (Zyvox) 600 mg PO BID [facility]; Protocol Last Admin: 01/26/19 17:44 Dose: 600 mg Lisinopril (Zestril) 5 mg PO DAILY [facility] Last Admin: 01/26/19 10:50 Dose: Not Given Megestrol Acetate (Megace) 400 mg PO BID [facility] Last Admin: 01/26/19 17:43 Dose: Not Given Morphine Sulfate (Morphine) 1 mg IVP Q4 PRN PRN Reason: Pain, moderate (4-7) Ondansetron HCl (Zofran Odt) 4 mg PO Q6H PRN PRN Reason: Nausea/Vomiting Pantoprazole Sodium (Protonix Ec Tab) 40 mg PO DAILY [facility] Last Admin: 01/26/19 10:48 Dose: 40 mg Promethazine HCl (Phenergan Syrup) 6.25 mg PO Q6 PRN PRN Reason: Cough Last Admin: 01/12/19 17:49 Dose: 6.25 mg Saliva Substitute (First Magic Mouthwash) 5 ml PO Q6 [facility] Last Admin: 01/26/19 17:43 Dose: 5 ml Scopolamine (Transderm-Scop) 1 patch TD Q3D [facility] Last Admin: 01/26/19 10:48 Dose: 1 patch Tamsulosin HCl (Flomax) 0.4 mg PO BID [facility] Last Admin: 01/26/19 17:44 Dose: 0.4 mg - Labs Labs: 01/24/19 06:51 01/24/19 06:51 PT 14.8 SECONDS (9.7-12.2) H 01/21/19 11:03 INR 1.4 01/21/19 11:03 APTT 28 SECONDS (21-34) 01/21/19 11:03 - Head Exam Head Exam: ATRAUMATIC - Eye Exam Eye Exam: Normal appearance - ENT Exam ENT Exam: Mucous Membranes Dry - Respiratory Exam Respiratory Exam: Decreased Breath Sounds - Cardiovascular Exam Cardiovascular Exam: +S1, +S2 - GI/Abdominal Exam GI & Abdominal Exam: Normal Bowel Sounds Assessment and Plan (1) 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
[2019-01-27] MEDS: guaiFENesin 200 mg/10 ml Syrup UD PO SCH ×5 (01:02→20:05)
[2019-01-27] MEDS: Albuterol-Ipratrop 3 mg / 0.5 (3 ml) UD INH SCH ×4 (01:31→20:05)
[2019-01-27] MEDS: Mag&Al/Simet/Diphen/Lido 237 ML KIT PO SCH ×3 (05:41→17:50)
[2019-01-27 08:01] LABS: BASO % 0.3 % (0.0-2.0); EOS % 1.9 % (0.0-4.0); HEMOGLOBIN 7.5 g/dL (12.0-18.0); LYMPH # 0.2 K/uL (1.0-4.3); LYMPH % 68.1 % (20.0-40.0); MEAN CELL VOLUME 92.4 fL (80.0-94.0); MEAN CORPUSCULAR HEMOGLOBIN 30.9 pg (27.0-31.0); MEAN CORPUSCULAR HGB CONC 33.5 g/dL (33.0-37.0); MEAN PLATELET VOLUME 7.8 fL (7.2-11.7); MONO % 2.8 % (0.0-10.0); NEUT # 0.1 K/uL (1.8-7.0); NEUT % 26.9 % (50.0-75.0); RBC 2.43 Mil/uL (4.40-5.90); RED CELL DISTRIBUTION WIDTH 13.8 % (11.5-14.5)
[2019-01-27 08:08] LABS: WHITE BLOOD COUNT 0.2 K/uL (4.8-10.8)
[2019-01-27 08:49] LABS: ALB/GLOB RATIO 0.7 (1.0-2.1); ALBUMIN 1.4 g/dL (3.5-5.0); ALT/SGPT 11 U/L (21-72); AST/SGOT 8 U/L (17-59); BLOOD UREA NITROGEN 30 mg/dL (9-20); CALCIUM 7.8 mg/dl (8.6-10.4); GFR NON-AFRICAN AMERICAN > 60
--- NOTE | 2019-01-27 11:03 | RAD ---
Date of service: 01/27/2019 HISTORY: eval pneumothorax COMPARISON: 01/26/2019 FINDINGS: LUNGS: Abnormal opacity in right upper lobe unchanged from previous. No definite left-sided infiltrate. There is left-sided volume loss. PLEURA: Large right pneumothorax unchanged in extent. Small to moderate left pleural effusion with pleural fluid capping the left lung apex. Alternatively, this could represent left apical pleural thickening. CARDIOVASCULAR: There is atherosclerotic calcification of the thoracic aorta. Heart size grossly normal. No pulmonary vascular congestion. Right PICC catheter grossly unchanged. OSSEOUS STRUCTURES: No significant abnormalities. VISUALIZED UPPER ABDOMEN: Normal. OTHER FINDINGS: None. IMPRESSION: Large right pneumothorax persists. Possible right upper lobe infiltrate. Left-sided volume loss. Probable small moderate left pleural effusion. Right PICC catheter.
[2019-01-27] MEDS: Pantoprazole 40 mg EC Tab PO SCH (11:18)
[2019-01-27] MEDS: Megestrol Acetate 40 mg/ml Cup PO SCH ×2 (11:20→17:50)
--- NOTE | 2019-01-27 16:06 | CP.PCM.PN ---
Subjective - Date & Time of Evaluation Date of Evaluation: 01/27/19 Time of Evaluation: 06:50 - Subjective Subjective: Patient examined at bedside with in room. He reports he did not want the chest tube changed out yesterday evening as offered by Dr. Thurston. Pt reports breathing minimally improved. Pt reports his daughter is visiting another [facility] facility this morning, and does not know the plan as of yet. Denies chest pain, nausea, diarrhea. Subsequent discussion with daughter revealed that the facilities she visited cannot accommodate a pigtail cath, she has plans to see another facility tomorrow. Daughter reminded that her father is eager to leave the hospital and to discuss options with him. Objective - Vital Signs/Intake and Output Vital Signs (last 24 hours): Temp Pulse Resp BP Pulse Ox 97.8 F 64 20 100/63 97 01/27/19 07:57 01/27/19 07:57 01/27/19 07:57 01/27/19 11:21 01/27/19 07:57 Intake and Output: 01/27/19 01/27/19 06:59 18:59 Intake Total 160 275 Output Total 170 130 Balance -10 145 - Medications Medications: Current Medications Acetaminophen (Tylenol 325mg Tab) 650 mg PO Q6 PRN PRN Reason: Pain, moderate (4-7) Last Admin: 01/11/19 19:32 Dose: 650 mg Acetaminophen (Tylenol 325mg Tab) 650 mg PO ONCE PRN PRN Reason: pre med Last Admin: 01/15/19 19:40 Dose: 650 mg Albuterol/Ipratropium (Duoneb 3 Mg/0.5 Mg (3 Ml) Ud) 3 ml INH RQ6 [facility] Last Admin: 01/27/19 13:25 Dose: 3 ml Diphenhydramine HCl (Benadryl) 25 mg PO ONCE PRN PRN Reason: pre med Last Admin: 01/03/19 14:39 Dose: 25 mg Docusate Sodium (Colace) 100 mg PO BID PRN PRN Reason: Constipation Last Admin: 01/25/19 14:34 Dose: 100 mg Furosemide (Lasix) 20 mg PO DAILY [facility] Last Admin: 01/27/19 11:21 Dose: Not Given Guaifenesin (Robitussin) 200 mg PO Q4H [facility] Last Admin: 01/27/19 12:30 Dose: Not Given Linezolid (Zyvox) 600 mg PO BID [facility]; Protocol Last Admin: 01/27/19 11:18 Dose: Not Given Lisinopril (Zestril) 5 mg PO DAILY [facility] Last Admin: 01/27/19 11:20 Dose: Not Given Megestrol Acetate (Megace) 400 mg PO BID [facility] Last Admin: 01/27/19 11:20 Dose: Not Given Morphine Sulfate (Morphine) 1 mg IVP Q4 PRN PRN Reason: Pain, moderate (4-7) Ondansetron HCl (Zofran Odt) 4 mg PO Q6H PRN PRN Reason: Nausea/Vomiting Pantoprazole Sodium (Protonix Ec Tab) 40 mg PO DAILY [facility] Last Admin: 01/27/19 11:18 Dose: Not Given Promethazine HCl (Phenergan Syrup) 6.25 mg PO Q6 PRN PRN Reason: Cough Last Admin: 01/12/19 17:49 Dose: 6.25 mg Saliva Substitute (First Magic Mouthwash) 5 ml PO Q6 [facility] Last Admin: 01/27/19 12:30 Dose: Not Given Scopolamine (Transderm-Scop) 1 patch TD Q3D [facility] Last Admin: 01/26/19 10:48 Dose: 1 patch Tamsulosin HCl (Flomax) 0.4 mg PO BID [facility] Last Admin: 01/27/19 11:18 Dose: Not Given - Labs Labs: 01/27/19 07:50 01/27/19 07:50 PT 14.8 SECONDS (9.7-12.2) H 01/21/19 11:03 INR 1.4 01/21/19 11:03 APTT 28 SECONDS (21-34) 01/21/19 11:03 - Additional Findings Additional findings: - Constitutional Appears: Non-toxic, Agitated, Cachectic, Chronically Ill - Head Exam Head Exam: ATRAUMATIC, NORMAL INSPECTION, NORMOCEPHALIC - Eye Exam Eye Exam: EOMI, Normal appearance - ENT Exam ENT Exam: Mucous Membranes Dry, Normal Exam - Respiratory Exam Respiratory Exam: Accessory Muscle Use, Decreased Breath Sounds (right), Respiratory Distress (tachypneic, working to breathe). absent: NORMAL BREATHING PATTERN Right pigtail catheter to suction - Cardiovascular Exam Cardiovascular Exam: Tachycardia, REGULAR RHYTHM - GI/Abdominal Exam GI & Abdominal Exam: Soft, Normal Bowel Sounds. absent: Tenderness - Exam Exam: Bladder Distension - Extremities Exam Extremities Exam: Pedal Edema (2+), Tenderness. absent: Normal Inspection - Neurological Exam Neurological Exam: Alert, Awake - Psychiatric Exam Psychiatric exam: Agitated - Skin Skin Exam: Dry, Intact, Pallor, Warm Assessment and Plan - Assessment and Plan (Free Text) Assessment: 78 year old male with history of COPD, AML on chemo, pancytopenia 2/2 AML, BPH, HTN admitted for treatment of pancytopenia, s/p right pigtail for newly develope d hyropneumothorax. Plan: Right sided hydropneumothorax Space Planner Dr. Thurston consulted ID Dr. Ferrari consulted Management: - PIGTAIL IN PLACE 01/21/19, to suction Zyvox 600mg po BID, PO abx per ID Duonebs q6 Lasix 20mg PO daily Robitussin 200mg q4h Phenergan 6.25mg po q6 prn Scopolamine patch Pt refused pigtail replacement as current one has minimal output Imaging: - Chest CT (01/18/19) shows There has been marked increase in size right-sided effusion which is now so sedated with a anteriorly located moderate-sized pneumothorax (hydropneumothorax). Note the right-sided effusion exhibits a somewhat lobular configuration which could be secondary to chronic scarring and fibrosis with tethering of the lung to the pleural surface rather than loculated components. Associated mild atelectasis right lower as well as right upper lobes. Vague ground-glass opacities seen in the aerated portions of the upper right upper lobe although significant underlying centrilobular. Bullous emphys ematous changes are also present left-sided which is larger than the right. There is a small to medium size left-sided effusion with significant atelectatic changes of the left entire left lung. Abdominal ascites. Redemonstrated are multiple low-attenuation hepatic lesions. -f/u repeat CXR today for evolution of hydropneumothorax, consistent findings Pancytopenia 2/[address] Bobby consulted, no further chemotherapy tx as pt is not responding hgb 7.5, plts 58, s/p 1U PRBC (01/26) Zofran 4mg Q6 PRN Transfuse PRN PICC inserted (01/26) Anasarca improving lasix 20mg po qd albumin 1.4 today, repletion not indicated 2/2 poor status and worsening hydropneumothorax morphine 1mg q6 prn pain in LE 2/2 edema Hypotension Secondary to hypoalbuminemia Continue to monitor lisinopril 5mg po qd, holding parameters Abdominal Pain, resolved Abd US: low-attenuation lesion L lobe liver. Liver exhibits increased echotexture secondary to fatty infiltration or hepatocellular disease. splenomegaly. several tiny echogenic foci adherent to gallbladder wall possibly representing polyps. slight increased renal echotexture. Colace PRN for Constipation Zofran prn History of BPH Flomax 0.4mg PO BID Bladder scans PRN Straight cath prn History of HTN Lisinopril 5mg PO daily Holding parameters Poor Nutrition encourage PO intake Low Microbial Diet Ensure Enlive TID Megace 400mg PO BID Prophylaxis: Protonix 40mg po qd SCDs contraindicated 2/2 edema; AC contraindicated 2/2 pancytopenia PT/OT DNR/DNI Dispo: Awaiting family decision regarding hospice Discussed with Dr. Lindsay Amato, PGY-1
--- NOTE | 2019-01-27 17:46 | CP.PCM.PN ---
Subjective - Date & Time of Evaluation Date of Evaluation: 01/27/19 Time of Evaluation: 09:00 - Subjective Subjective: Patient seen and examined at bedside. Per palliative care, family agreed for hospice. Awaits transfusion. States he is breathing okay. Patient refused chest tube and does not want any aggressive intervention following discussion of pros and cons of which patient expressed understanding. Afebrile. Physical Exam: General: Awake, alert, oriented; comfortable; not in any distress Cardio: Regular rhythm and rate; +S1 +S2 Pulm: Decreased breath sounds Abd: Soft, non-distended CXR 01/26: Right PICC line terminates at the cavoatrial junction. Interval significant increase in size of known right pneumothorax now large with compressive atelectasis of the right lung. Stable chronic fibrotic changes in the right upper lobe, persistent low lung volume on the left and stable moderate loculated left pleural effusion. CXR 01/26: Size of right pneumothorax similar with 01/26/19 study at 0911 (see above) but has increased since 02/03/19 study. The interval increased left lung volume loss and leftward mediastinal shift since 01/24/19 is also concerning for a tension pneumothorax. Pigtail catheter in right inferolateral pleural spaces similar position interval increased small right pleural effusion inferred. Assessment & Plan: Pleural Effusion, Left - Hospice care - Prognosis poor Pancytopenia Objective - Vital Signs/Intake and Output Vital Signs (last 24 hours): Temp Pulse Resp BP Pulse Ox 98.2 F 104 H 20 84/42 L 100 01/27/19 16:16 01/27/19 16:16 01/27/19 16:16 01/27/19 16:16 01/27/19 16:16 Intake and Output: 01/27/19 01/27/19 06:59 18:59 Intake Total 160 275 Output Total 170 130 Balance -10 145 - Medications Medications: Current Medications Acetaminophen (Tylenol 325mg Tab) 650 mg PO Q6 PRN PRN Reason: Pain, moderate (4-7) Last Admin: 01/11/19 19:32 Dose: 650 mg Acetaminophen (Tylenol 325mg Tab) 650 mg PO ONCE PRN PRN Reason: pre med Last Admin: 01/15/19 19:40 Dose: 650 mg Albuterol/Ipratropium (Duoneb 3 Mg/0.5 Mg (3 Ml) Ud) 3 ml INH RQ6 [facility] Last Admin: 01/27/19 13:25 Dose: 3 ml Diphenhydramine HCl (Benadryl) 25 mg PO ONCE PRN PRN Reason: pre med Last Admin: 01/03/19 14:39 Dose: 25 mg Docusate Sodium (Colace) 100 mg PO BID PRN PRN Reason: Constipation Last Admin: 01/25/19 14:34 Dose: 100 mg Furosemide (Lasix) 20 mg PO DAILY [facility] Last Admin: 01/27/19 11:21 Dose: Not Given Guaifenesin (Robitussin) 200 mg PO Q4H [facility] Last Admin: 01/27/19 17:07 Dose: Not Given Linezolid (Zyvox) 600 mg PO BID [facility]; Protocol Last Admin: 01/27/19 11:18 Dose: Not Given Lisinopril (Zestril) 5 mg PO DAILY [facility] Last Admin: 01/27/19 11:20 Dose: Not Given Megestrol Acetate (Megace) 400 mg PO BID [facility] Last Admin: 01/27/19 11:20 Dose: Not Given Morphine Sulfate (Morphine) 1 mg IVP Q4 PRN PRN Reason: Pain, moderate (4-7) Ondansetron HCl (Zofran Odt) 4 mg PO Q6H PRN PRN Reason: Nausea/Vomiting Pantoprazole Sodium (Protonix Ec Tab) 40 mg PO DAILY [facility] Last Admin: 01/27/19 11:18 Dose: Not Given Promethazine HCl (Phenergan Syrup) 6.25 mg PO Q6 PRN PRN Reason: Cough Last Admin: 01/12/19 17:49 Dose: 6.25 mg Saliva Substitute (First Magic Mouthwash) 5 ml PO Q6 [facility] Last Admin: 01/27/19 12:30 Dose: Not Given Scopolamine (Transderm-Scop) 1 patch TD Q3D [facility] Last Admin: 01/26/19 10:48 Dose: 1 patch Tamsulosin HCl (Flomax) 0.4 mg PO BID [facility] Last Admin: 01/27/19 11:18 Dose: Not Given - Labs Labs: 01/27/19 07:50 01/27/19 07:50 PT 14.8 SECONDS (9.7-12.2) H 01/21/19 11:03 INR 1.4 01/21/19 11:03 APTT 28 SECONDS (21-34) 01/21/19 11:03 Assessment and Plan (1) Pneumonia Status: Acute (2) Pancytopenia Status: Acute (3) Pleural effusion, left Status: Acute
[2019-01-28] MEDS: Mag&Al/Simet/Diphen/Lido 237 ML KIT PO SCH ×4 (00:26→17:36)
[2019-01-28] MEDS: guaiFENesin 200 mg/10 ml Syrup UD PO SCH ×4 (00:26→22:00)
--- NOTE | 2019-01-28 01:07 | CP.PCM.PN ---
Subjective - Date & Time of Evaluation Date of Evaluation: 01/27/19 Time of Evaluation: 15:00 - Subjective Subjective: Pt slightly more short of breath declined chest tube as he confused this with portacath placement thinking about chest tube Objective - Vital Signs/Intake and Output Vital Signs (last 24 hours): Temp Pulse Resp BP Pulse Ox 97.9 F 104 H 20 125/69 100 01/28/19 00:00 01/28/19 00:00 01/28/19 00:00 01/28/19 00:00 01/28/19 00:00 Intake and Output: 01/27/19 01/28/19 18:59 06:59 Intake Total 275 20 Output Total 130 20 Balance 145 0 - Medications Medications: Current Medications Acetaminophen (Tylenol 325mg Tab) 650 mg PO Q6 PRN PRN Reason: Pain, moderate (4-7) Last Admin: 01/11/19 19:32 Dose: 650 mg Acetaminophen (Tylenol 325mg Tab) 650 mg PO ONCE PRN PRN Reason: pre med Last Admin: 01/15/19 19:40 Dose: 650 mg Albuterol/Ipratropium (Duoneb 3 Mg/0.5 Mg (3 Ml) Ud) 3 ml INH RQ6 [facility] Last Admin: 01/27/19 20:05 Dose: 3 ml Diphenhydramine HCl (Benadryl) 25 mg PO ONCE PRN PRN Reason: pre med Last Admin: 01/03/19 14:39 Dose: 25 mg Docusate Sodium (Colace) 100 mg PO BID PRN PRN Reason: Constipation Last Admin: 01/25/19 14:34 Dose: 100 mg Furosemide (Lasix) 20 mg PO DAILY [facility] Last Admin: 01/27/19 11:21 Dose: Not Given Guaifenesin (Robitussin) 200 mg PO Q4H [facility] Last Admin: 01/28/19 00:26 Dose: Not Given Cefazolin Sodium (Ancef) 1 gm in 50 mls @ 100 mls/hr IVPB Q8H [facility]; Protocol Lisinopril (Zestril) 5 mg PO DAILY [facility] Last Admin: 01/27/19 11:20 Dose: Not Given Megestrol Acetate (Megace) 400 mg PO BID [facility] Last Admin: 01/27/19 17:50 Dose: Not Given Morphine Sulfate (Morphine) 1 mg IVP Q4 PRN PRN Reason: Pain, moderate (4-7) Ondansetron HCl (Zofran Odt) 4 mg PO Q6H PRN PRN Reason: Nausea/Vomiting Pantoprazole Sodium (Protonix Ec Tab) 40 mg PO DAILY [facility] Last Admin: 01/27/19 11:18 Dose: Not Given Promethazine HCl (Phenergan Syrup) 6.25 mg PO Q6 PRN PRN Reason: Cough Last Admin: 01/12/19 17:49 Dose: 6.25 mg Saliva Substitute (First Magic Mouthwash) 5 ml PO Q6 [facility] Last Admin: 01/28/19 00:26 Dose: Not Given Scopolamine (Transderm-Scop) 1 patch TD Q3D [facility] Last Admin: 01/26/19 10:48 Dose: 1 patch Tamsulosin HCl (Flomax) 0.4 mg PO BID [facility] Last Admin: 01/27/19 17:50 Dose: Not Given - Labs Labs: 01/27/19 07:50 01/27/19 07:50 PT 14.8 SECONDS (9.7-12.2) H 01/21/19 11:03 INR 1.4 01/21/19 11:03 APTT 28 SECONDS (21-34) 01/21/19 11:03 - Head Exam Head Exam: ATRAUMATIC - Eye Exam Eye Exam: Normal appearance - ENT Exam ENT Exam: Mucous Membranes Dry - Respiratory Exam Respiratory Exam: Decreased Breath Sounds - Cardiovascular Exam Cardiovascular Exam: +S1, +S2 - GI/Abdominal Exam GI & Abdominal Exam: Normal Bowel Sounds Assessment and Plan (1) 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
[2019-01-28] MEDS: Albuterol-Ipratrop 3 mg / 0.5 (3 ml) UD INH SCH ×4 (01:14→19:21)
[2019-01-28] MEDS: ceFAZolin 1 gm FROZEN Premix 1 GM/50 ML ML IVPB SCH ×3 (01:32→17:35)
[2019-01-28 08:10] LABS: BASO % 1.2 % (0.0-2.0); EOS % 0.8 % (0.0-4.0); HEMOGLOBIN 7.2 g/dL (12.0-18.0); LYMPH # 0.1 K/uL (1.0-4.3); LYMPH % 57.8 % (20.0-40.0); MEAN CELL VOLUME 91.8 fL (80.0-94.0); MEAN CORPUSCULAR HEMOGLOBIN 30.9 pg (27.0-31.0); MEAN CORPUSCULAR HGB CONC 33.7 g/dL (33.0-37.0); MEAN PLATELET VOLUME 7.8 fL (7.2-11.7); MONO % 4.2 % (0.0-10.0); NEUT # 0.1 K/uL (1.8-7.0); NRBC % 0.6 % (0.0-2.0); RBC 2.34 Mil/uL (4.40-5.90); RED CELL DISTRIBUTION WIDTH 13.5 % (11.5-14.5)
[2019-01-28 08:13] LABS: WHITE BLOOD COUNT 0.2 K/uL (4.8-10.8)
[2019-01-28 08:18] LABS: ALB/GLOB RATIO 0.7 (1.0-2.1); ALBUMIN 1.4 g/dL (3.5-5.0); ALT/SGPT < 6 U/L (21-72); AST/SGOT 9 U/L (17-59); BLOOD UREA NITROGEN 31 mg/dL (9-20); CALCIUM 7.7 mg/dl (8.6-10.4); GFR NON-AFRICAN AMERICAN > 60
[2019-01-28] MEDS: Megestrol Acetate 40 mg/ml Cup PO SCH ×2 (10:21→17:36)
[2019-01-28] MEDS: Pantoprazole 40 mg EC Tab PO SCH (10:21)
--- NOTE | 2019-01-28 11:27 | CP.PCM.PN ---
Subjective - Date & Time of Evaluation Date of Evaluation: 01/28/19 Time of Evaluation: 09:30 - Subjective Subjective: Patient examined at bedside with family in room. reports daughter is going to visit another facility this morning. Patient reports improvement in breathing. Patient adamantly stating he wants to go home. Denies further complaints of chest pain, abdominal pain, nausea, diarrhea. At subsequent visit, patient received one way valve chest tube by Dr. Thurston; reports improvement in breathing. Daughter report plans to tour facility postponed until tomorrow. Discussion had reminding them of their father's poor prognosis and his wishes to go home. Objective - Vital Signs/Intake and Output Vital Signs (last 24 hours): Temp Pulse Resp BP Pulse Ox 97.6 F 108 H 20 107/63 90 L 01/28/19 08:48 01/28/19 08:48 01/28/19 08:48 01/28/19 10:21 01/28/19 08:48 Intake and Output: 01/28/19 01/28/19 06:59 18:59 Intake Total 130 Output Total 20 Balance 110 - Medications Medications: Current Medications Acetaminophen (Tylenol 325mg Tab) 650 mg PO Q6 PRN PRN Reason: Pain, moderate (4-7) Last Admin: 01/11/19 19:32 Dose: 650 mg Acetaminophen (Tylenol 325mg Tab) 650 mg PO ONCE PRN PRN Reason: pre med Last Admin: 01/15/19 19:40 Dose: 650 mg Albuterol/Ipratropium (Duoneb 3 Mg/0.5 Mg (3 Ml) Ud) 3 ml INH RQ6 [facility] Last Admin: 01/28/19 01:14 Dose: Not Given Diphenhydramine HCl (Benadryl) 25 mg PO ONCE PRN PRN Reason: pre med Last Admin: 01/03/19 14:39 Dose: 25 mg Docusate Sodium (Colace) 100 mg PO BID PRN PRN Reason: Constipation Last Admin: 01/25/19 14:34 Dose: 100 mg Furosemide (Lasix) 20 mg PO DAILY [facility] Last Admin: 01/28/19 10:21 Dose: 20 mg Guaifenesin (Robitussin) 200 mg PO Q4H [facility] Last Admin: 01/28/19 04:31 Dose: Not Given Cefazolin Sodium (Ancef) 1 gm in 50 mls @ 100 mls/hr IVPB Q8H [facility]; Protocol Last Admin: 01/28/19 08:41 Dose: 100 mls/hr Lisinopril (Zestril) 5 mg PO DAILY [facility] Last Admin: 01/28/19 10:21 Dose: 5 mg Megestrol Acetate (Megace) 400 mg PO BID [facility] Last Admin: 01/28/19 10:21 Dose: 400 mg Morphine Sulfate (Morphine) 1 mg IVP Q4 PRN PRN Reason: Pain, moderate (4-7) Ondansetron HCl (Zofran Odt) 4 mg PO Q6H PRN PRN Reason: Nausea/Vomiting Pantoprazole Sodium (Protonix Ec Tab) 40 mg PO DAILY [facility] Last Admin: 01/28/19 10:21 Dose: 40 mg Promethazine HCl (Phenergan Syrup) 6.25 mg PO Q6 PRN PRN Reason: Cough Last Admin: 01/12/19 17:49 Dose: 6.25 mg Saliva Substitute (First Magic Mouthwash) 5 ml PO Q6 [facility] Last Admin: 01/28/19 05:56 Dose: Not Given Scopolamine (Transderm-Scop) 1 patch TD Q3D [facility] Last Admin: 01/26/19 10:48 Dose: 1 patch Tamsulosin HCl (Flomax) 0.4 mg PO BID [facility] Last Admin: 01/28/19 10:21 Dose: 0.4 mg - Labs Labs: 01/28/19 07:47 01/28/19 07:47 PT 14.8 SECONDS (9.7-12.2) H 01/21/19 11:03 INR 1.4 01/21/19 11:03 APTT 28 SECONDS (21-34) 01/21/19 11:03 - Constitutional Appears: Non-toxic, Cachectic, Chronically Ill - Head Exam Head Exam: ATRAUMATIC, NORMAL INSPECTION, NORMOCEPHALIC - Eye Exam Eye Exam: EOMI, Normal appearance - ENT Exam ENT Exam: Mucous Membranes Moist, Normal Exam - Respiratory Exam Respiratory Exam: Accessory Muscle Use, Decreased Breath Sounds, Rales Additional comments: right anterior chest tube right axillary pigtail to suction - Cardiovascular Exam Cardiovascular Exam: Tachycardia, REGULAR RHYTHM - GI/Abdominal Exam GI & Abdominal Exam: Soft. absent: Distended, Tenderness - Extremities Exam Extremities Exam: Pedal Edema. 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 Plan: Right sided hydropneumothorax Zone Maintenance Technician Dr. Thurston consulted ID Dr. Ferrari consulted Management: - PIGTAIL IN PLACE 01/21/19, to suction - One way valve chest tube in place 01/28/19 Zyvox 600mg po BID, PO abx per ID Duonebs q6 Lasix 20mg PO daily Robitussin 200mg q4h Phenergan 6.25mg po q6 prn Scopolamine patch Imaging: - Chest CT (01/18/19) shows There has been marked increase in size right-sided effusion which is now so sedated with a anteriorly located moderate-sized pneumothorax (hydropneumothorax). Note the right-sided effusion exhibits a somewhat lobular configuration which could be secondary to chronic scarring and fibrosis with tethering of the lung to the pleural surface rather than loculated components. Associated mild atelectasis right lower as well as right upper lobes. Vague ground-glass opacities seen in the aerated portions of the upper right upper lobe although significant underlying centrilobular. 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 There is a small to medium size left-sided effusion with significant atelectatic changes of the left entire left lung. Abdominal ascites. Redemonstrated are multiple low-attenuation hepatic lesions. -f/u repeat CXR today for evolution of hydropneumothorax, consistent findings Pancytopenia 2/[address] Bobyb consulted, no further chemotherapy tx as pt is not responding hgb 7.2, plts 55, s/p 1U PRBC (01/26) Zofran 4mg Q6 PRN Transfuse PRN PICC inserted (01/26) Anasarca improving lasix 20mg po qd albumin 1.4 today, repletion not indicated 2/2 poor status and worsening hydropneumothorax morphine 1mg q6 prn pain in LE 2/2 edema Hypotension Secondary to hypoalbuminemia Continue to monitor lisinopril 5mg po qd, holding parameters Abdominal Pain, resolved Abd US: low-attenuation lesion L lobe liver. Liver exhibits increased echotexture secondary to fatty infiltration or hepatocellular disease. splenomegaly. several tiny echogenic foci adherent to gallbladder wall possibly representing polyps. slight increased renal echotexture. Colace PRN for Constipation Zofran prn History of BPH Flomax 0.4mg PO BID Bladder scans PRN Straight cath prn History of HTN Lisinopril 5mg PO daily Holding parameters Poor Nutrition encourage PO intake Low Microbial Diet Ensure Enlive TID Megace 400mg PO BID Prophylaxis: Protonix 40mg po qd SCDs contraindicated 2/2 edema; AC contraindicated 2/2 pancytopenia PT/OT DNR/DNI Dispo: Awaiting family decision regarding hospice Discussed with Dr. Lindsay Amato, PGY-1
--- NOTE | 2019-01-28 14:11 | CP.PCM.PN ---
Subjective - Date & Time of Evaluation Date of Evaluation: 01/28/19 Time of Evaluation: 09:00 - Subjective Subjective: Patient seen and examined at bedside. Per palliative care, family agreed for hospice. Awaits transfusion. States he is having some difficulty breathing. Agrees to chest tube placement. Afebrile. Physical Exam: General: Awake, alert, oriented; comfortable; not in any distress Cardio: Regular rhythm and rate; +S1 +S2 Pulm: Decreased breath sounds Abd: Soft, non-distended CXR 01/27: Large right pneumothorax persists. Possible right upper lobe infiltrate. Left-sided volume mass. Probable small moderate left pleural effusion. Right PICC catheter. Assessment & Plan: Pleural Effusion, Left - Chest tube placement - Hospice care - Prognosis poor Pancytopenia Objective - Vital Signs/Intake and Output Vital Signs (last 24 hours): Temp Pulse Resp BP Pulse Ox 97.6 F 108 H 20 107/63 90 L 01/28/19 08:48 01/28/19 08:48 01/28/19 08:48 01/28/19 10:21 01/28/19 08:48 Intake and Output: 01/28/19 01/28/19 06:59 18:59 Intake Total 130 150 Output Total 20 Balance 110 150 - Medications Medications: Current Medications Acetaminophen (Tylenol 325mg Tab) 650 mg PO Q6 PRN PRN Reason: Pain, moderate (4-7) Last Admin: 01/11/19 19:32 Dose: 650 mg Acetaminophen (Tylenol 325mg Tab) 650 mg PO ONCE PRN PRN Reason: pre med Last Admin: 01/15/19 19:40 Dose: 650 mg Albuterol/Ipratropium (Duoneb 3 Mg/0.5 Mg (3 Ml) Ud) 3 ml INH RQ6 [facility] Last Admin: 01/28/19 01:14 Dose: Not Given Diphenhydramine HCl (Benadryl) 25 mg PO ONCE PRN PRN Reason: pre med Last Admin: 01/03/19 14:39 Dose: 25 mg Docusate Sodium (Colace) 100 mg PO BID PRN PRN Reason: Constipation Last Admin: 01/25/19 14:34 Dose: 100 mg Furosemide (Lasix) 20 mg PO DAILY [facility] Last Admin: 01/28/19 10:21 Dose: 20 mg Guaifenesin (Robitussin) 200 mg PO Q4H [facility] Last Admin: 01/28/19 04:31 Dose: Not Given Cefazolin Sodium (Ancef) 1 gm in 50 mls @ 100 mls/hr IVPB Q8H [facility]; Protocol Last Admin: 01/28/19 08:41 Dose: 100 mls/hr Lisinopril (Zestril) 5 mg PO DAILY [facility] Last Admin: 01/28/19 10:21 Dose: 5 mg Megestrol Acetate (Megace) 400 mg PO BID [facility] Last Admin: 01/28/19 10:21 Dose: 400 mg Morphine Sulfate (Morphine) 1 mg IVP Q4 PRN PRN Reason: Pain, moderate (4-7) Ondansetron HCl (Zofran Odt) 4 mg PO Q6H PRN PRN Reason: Nausea/Vomiting Pantoprazole Sodium (Protonix Ec Tab) 40 mg PO DAILY [facility] Last Admin: 01/28/19 10:21 Dose: 40 mg Promethazine HCl (Phenergan Syrup) 6.25 mg PO Q6 PRN PRN Reason: Cough Last Admin: 01/12/19 17:49 Dose: 6.25 mg Saliva Substitute (First Magic Mouthwash) 5 ml PO Q6 [facility] Last Admin: 01/28/19 11:33 Dose: Not Given Scopolamine (Transderm-Scop) 1 patch TD Q3D [facility] Last Admin: 01/26/19 10:48 Dose: 1 patch Tamsulosin HCl (Flomax) 0.4 mg PO BID [facility] Last Admin: 01/28/19 10:21 Dose: 0.4 mg - Labs Labs: 01/28/19 07:47 01/28/19 07:47 PT 14.8 SECONDS (9.7-12.2) H 01/21/19 11:03 INR 1.4 01/21/19 11:03 APTT 28 SECONDS (21-34) 01/21/19 11:03 Assessment and Plan (1) Pleural effusion, left Status: Acute (2) Pancytopenia Status: Acute (3) Pneumonia Status: Acute
--- NOTE | 2019-01-28 15:16 | PCM.PROC ---
Procedures Attestation:: I certify that I have explained the specified Operation(s) or Procedure(s), risks, benefits and reasonable alternatives to the Patient and/or other person responsible. The opportunity was given to ask questions and all questions answered - Chest Tube Chest Tube Location: Anterior Chest Right Size of Tube (cm): 10 Chest Tube Procedure: Chlorhexidine Tube Sutured to Skin: Yes Sterile Dressing Applied: Yes Anesthesia: Lidocaine 1% Volume Anesthetic (mls): 3 Incision Made With: #10 blade Post Procedure: sutured to skin, sterile dressing applied [place] of Air [place]: Yes Tube Drainage: none Post Procedure CXR?: Yes Patient Tolerated Procedure: Yes
--- NOTE | 2019-01-28 15:56 | RAD ---
Date of service: 01/28/2019 HISTORY: r/o PNEUMOTHORAX COMPARISON: 01/27/2019 FINDINGS: LUNGS: Opacity again identified in right upper lobe. Possible pneumonia. Possible atelectasis. PLEURA: Bilateral pleural effusion. Moderate right pneumothorax essentially unchanged. Pigtail pleural catheter at right base with 2nd pigtail pleural catheter now seen in upper right coral thorax. Pleural-based density mid and upper left lung capping the apex. Possible pleural fluid. Cannot rule out left-sided infiltrate. CARDIOVASCULAR: There is atherosclerotic calcification of the thoracic aorta. Normal cardiac size. No pulmonary vascular congestion. OSSEOUS STRUCTURES: No significant abnormalities. VISUALIZED UPPER ABDOMEN: Normal. OTHER FINDINGS: None. IMPRESSION: Moderate right pneumothorax. Two right chest tubes. Bilateral pleural effusion. Pleural-based density mid and upper left lung, nonspecific. Persistent opacity right upper lobe.
[2019-01-29] MEDS: guaiFENesin 200 mg/10 ml Syrup UD PO SCH ×6 (00:01→19:37)
[2019-01-29] MEDS: ceFAZolin 1 gm FROZEN Premix 1 GM/50 ML ML IVPB SCH ×3 (00:08→17:59)
[2019-01-29] MEDS: Mag&Al/Simet/Diphen/Lido 237 ML KIT PO SCH ×4 (00:38→17:59)
[2019-01-29] MEDS: Albuterol-Ipratrop 3 mg / 0.5 (3 ml) UD INH SCH ×4 (01:10→20:03)
[2019-01-29] MEDS: Pantoprazole 40 mg EC Tab PO SCH (10:32)
[2019-01-29] MEDS: Megestrol Acetate 40 mg/ml Cup PO SCH ×2 (10:33→17:59)
--- NOTE | 2019-01-29 16:00 | RAD ---
Date of service: 01/29/2019 HISTORY: R Ptx S/P CHEST TUBE COMPARISON: 01/28/2019 TECHNIQUE: 1 view obtained. FINDINGS: LUNGS: Persistent right upper lobe opacity. PLEURA: Decreasing size of right pneumothorax. Two right chest tubes are unchanged. Small right pleural effusion. Small left pleural effusion. Pleural-based density again identified along left lateral chest wall and left apex. CARDIOVASCULAR: Normal heart size. There is shift of the heart mediastinum towards the left side indicative of left-sided volume loss. There is atherosclerotic calcification of the thoracic aorta. A right PICC catheter is unchanged in position. No pulmonary vascular congestion. OSSEOUS STRUCTURES: No significant abnormalities. VISUALIZED UPPER ABDOMEN: Normal. OTHER FINDINGS: None. IMPRESSION: Decreasing size right pneumothorax. Bilateral pleural effusion. Persistent pleural-based density in left hemithorax. Two right chest tubes unchanged. Right apical opacity, possible pneumonia.
--- NOTE | 2019-01-29 16:57 | CP.PCM.PN ---
Subjective - Date & Time of Evaluation Date of Evaluation: 01/29/19 Time of Evaluation: 14:00 - Subjective Subjective: Patient seen and examined Status post Heimlich valve insertion for pneumothorax Breathing better No drainage from pigtail catheter Patient is awake and responsive Afebrile Objective - Vital Signs/Intake and Output Vital Signs (last 24 hours): Temp Pulse Resp BP Pulse Ox 98.3 F 86 18 70/42 L 96 01/29/19 16:00 01/29/19 16:00 01/29/19 16:00 01/29/19 16:00 01/29/19 16:00 Intake and Output: 01/29/19 01/29/19 06:59 18:59 Intake Total 270 300 Output Total 1 0 Balance 269 300 - Medications Medications: Current Medications Acetaminophen (Tylenol 325mg Tab) 650 mg PO Q6 PRN PRN Reason: Pain, moderate (4-7) Last Admin: 01/11/19 19:32 Dose: 650 mg Acetaminophen (Tylenol 325mg Tab) 650 mg PO ONCE PRN PRN Reason: pre med Last Admin: 01/15/19 19:40 Dose: 650 mg Albuterol/Ipratropium (Duoneb 3 Mg/0.5 Mg (3 Ml) Ud) 3 ml INH RQ6 [facility] Last Admin: 01/29/19 13:20 Dose: 3 ml Diphenhydramine HCl (Benadryl) 25 mg PO ONCE PRN PRN Reason: pre med Last Admin: 01/03/19 14:39 Dose: 25 mg Docusate Sodium (Colace) 100 mg PO BID PRN PRN Reason: Constipation Last Admin: 01/25/19 14:34 Dose: 100 mg Furosemide (Lasix) 20 mg PO DAILY [facility] Last Admin: 01/29/19 10:37 Dose: 20 mg Guaifenesin (Robitussin) 200 mg PO Q4H [facility] Last Admin: 01/29/19 12:57 Dose: Not Given Cefazolin Sodium (Ancef) 1 gm in 50 mls @ 100 mls/hr IVPB Q8H [facility]; Protocol Last Admin: 01/29/19 10:00 Dose: 100 mls/hr Lisinopril (Zestril) 5 mg PO DAILY [facility] Last Admin: 01/29/19 10:35 Dose: Not Given Megestrol Acetate (Megace) 400 mg PO BID [facility] Last Admin: 01/29/19 10:33 Dose: 400 mg Morphine Sulfate (Morphine) 1 mg IVP Q4 PRN PRN Reason: Pain, moderate (4-7) Ondansetron HCl (Zofran Odt) 4 mg PO Q6H PRN PRN Reason: Nausea/Vomiting Pantoprazole Sodium (Protonix Ec Tab) 40 mg PO DAILY [facility] Last Admin: 01/29/19 10:32 Dose: 40 mg Promethazine HCl (Phenergan Syrup) 6.25 mg PO Q6 PRN PRN Reason: Cough Last Admin: 01/12/19 17:49 Dose: 6.25 mg Saliva Substitute (First Magic Mouthwash) 5 ml PO Q6 [facility] Last Admin: 01/29/19 12:57 Dose: Not Given Scopolamine (Transderm-Scop) 1 patch TD Q3D [facility] Last Admin: 01/29/19 10:34 Dose: 1 patch Tamsulosin HCl (Flomax) 0.4 mg PO BID [facility] Last Admin: 01/29/19 10:32 Dose: 0.4 mg - Labs Labs: 01/28/19 07:47 01/28/19 07:47 PT 14.8 SECONDS (9.7-12.2) H 01/21/19 11:03 INR 1.4 01/21/19 11:03 APTT 28 SECONDS (21-34) 01/21/19 11:03 - Head Exam Head Exam: ATRAUMATIC, NORMOCEPHALIC - ENT Exam ENT Exam: Mucous Membranes Moist - Neck Exam Neck Exam: Normal Inspection - Respiratory Exam Respiratory Exam: Decreased Breath Sounds - Cardiovascular Exam Cardiovascular Exam: REGULAR RHYTHM - GI/Abdominal Exam GI & Abdominal Exam: Soft Assessment and Plan (1) Pleural effusion, left Status: Acute (2) Pancytopenia Status: Acute (3) Pneumonia Status: Acute
--- NOTE | 2019-01-29 18:22 | CP.PCM.PN ---
Subjective - Date & Time of Evaluation Date of Evaluation: 01/29/19 Time of Evaluation: 18:20 - Subjective Subjective: Medicine Progress Note - Dr Montoya's service Patient seen and examined at bedside. Per nursing, no acute events overnight. Patient is s/p Heimlich valve insertion yesterday. States that he is breathing better today. Appetitie is still poor. Offers no other complaints at this time. Objective - Vital Signs/Intake and Output Vital Signs (last 24 hours): Temp Pulse Resp BP Pulse Ox 98.3 F 86 18 70/42 L 96 01/29/19 16:00 01/29/19 16:00 01/29/19 16:00 01/29/19 16:00 01/29/19 16:00 Intake and Output: 01/29/19 01/29/19 06:59 18:59 Intake Total 270 300 Output Total 1 0 Balance 269 300 - Medications Medications: Current Medications Acetaminophen (Tylenol 325mg Tab) 650 mg PO Q6 PRN PRN Reason: Pain, moderate (4-7) Last Admin: 01/11/19 19:32 Dose: 650 mg Acetaminophen (Tylenol 325mg Tab) 650 mg PO ONCE PRN PRN Reason: pre med Last Admin: 01/15/19 19:40 Dose: 650 mg Albuterol/Ipratropium (Duoneb 3 Mg/0.5 Mg (3 Ml) Ud) 3 ml INH RQ6 [facility] Last Admin: 01/29/19 13:20 Dose: 3 ml Diphenhydramine HCl (Benadryl) 25 mg PO ONCE PRN PRN Reason: pre med Last Admin: 01/03/19 14:39 Dose: 25 mg Docusate Sodium (Colace) 100 mg PO BID PRN PRN Reason: Constipation Last Admin: 01/25/19 14:34 Dose: 100 mg Furosemide (Lasix) 20 mg PO DAILY [facility] Last Admin: 01/29/19 10:37 Dose: 20 mg Guaifenesin (Robitussin) 200 mg PO Q4H [facility] Last Admin: 01/29/19 17:16 Dose: Not Given Cefazolin Sodium (Ancef) 1 gm in 50 mls @ 100 mls/hr IVPB Q8H [facility]; Protocol Last Admin: 01/29/19 17:59 Dose: 100 mls/hr Lisinopril (Zestril) 5 mg PO DAILY [facility] Last Admin: 01/29/19 10:35 Dose: Not Given Megestrol Acetate (Megace) 400 mg PO BID [facility] Last Admin: 01/29/19 17:59 Dose: 400 mg Morphine Sulfate (Morphine) 1 mg IVP Q4 PRN PRN Reason: Pain, moderate (4-7) Ondansetron HCl (Zofran Odt) 4 mg PO Q6H PRN PRN Reason: Nausea/Vomiting Pantoprazole Sodium (Protonix Ec Tab) 40 mg PO DAILY [facility] Last Admin: 01/29/19 10:32 Dose: 40 mg Promethazine HCl (Phenergan Syrup) 6.25 mg PO Q6 PRN PRN Reason: Cough Last Admin: 01/12/19 17:49 Dose: 6.25 mg Saliva Substitute (First Magic Mouthwash) 5 ml PO Q6 [facility] Last Admin: 01/29/19 17:59 Dose: 5 ml Scopolamine (Transderm-Scop) 1 patch TD Q3D [facility] Last Admin: 01/29/19 10:34 Dose: 1 patch Tamsulosin HCl (Flomax) 0.4 mg PO BID [facility] Last Admin: 01/29/19 17:59 Dose: 0.4 mg - Labs Labs: 01/28/19 07:47 01/28/19 07:47 PT 14.8 SECONDS (9.7-12.2) H 01/21/19 11:03 INR 1.4 01/21/19 11:03 APTT 28 SECONDS (21-34) 01/21/19 11:03 - Additional Findings Additional findings: - Constitutional Appears: Non-toxic, Cachectic, Chronically Ill - Head Exam Head Exam: ATRAUMATIC, NORMAL INSPECTION, NORMOCEPHALIC - Eye Exam Eye Exam: EOMI, Normal appearance - ENT Exam ENT Exam: Mucous Membranes Moist, Normal Exam - Respiratory Exam Respiratory Exam: Accessory Muscle Use, Decreased Breath Sounds, Rales Additional comments: right anterior chest tube right axillary pigtail to suction - Cardiovascular Exam Cardiovascular Exam: Tachycardia, REGULAR RHYTHM - GI/Abdominal Exam GI & Abdominal Exam: Soft. absent: Distended, Tenderness - Extremities Exam Extremities Exam: Pedal Edema. 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 Plan: Right sided hydropneumothorax Saturator Operator Dr. Thurston consulted ID Dr. Ferrari consulted Management: -PIGTAIL IN PLACE 01/21/19, to suction -One way valve chest tube in place 01/28/19 -Antibiotics: Ancef 1 gm Q8H -Duonebs q6 -Lasix 20mg PO daily -Robitussin 200mg q4h, Phenergan 6.25mg po q6 prn, Scopolamine patch Imaging: -CXR 01/29/19 - Decreasing size right pneumothorax. Bilateral pleural effusion. Persistent pleural-based density in left hemithorax. Two right chest tubes unchanged. Right apical opacity, possible pneumonia - Chest CT (01/18/19) shows There has been marked increase in size right-sided effusion which is now so sedated with a anteriorly located moderate-sized pneumothorax (hydropneumothorax). Note the right-sided effusion exhibits a somewhat lobular configuration which could be secondary to chronic scarring and fibrosis with tethering of the lung to the pleural surface rather than loculated components. Associated mild atelectasis right lower as well as right upper lobes. Vague ground-glass opacities seen in the aerated portions of the upper right upper lobe although significant underlying centrilobular. 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 There is a small to medium size left-sided effusion with significant atelectatic changes of the left entire left lung. Abdominal ascites. Redemonstrated are multiple low-attenuation hepatic lesions. Pancytopenia 2/[address] Bobby consulted, no further chemotherapy tx as pt is not responding hgb 7.2, plts 55, s/p 1U PRBC (01/26) Zofran 4mg Q6 PRN Transfuse PRN PICC inserted (01/26) Anasarca improving lasix 20mg po qd morphine 1mg q6 prn pain in LE 2/2 edema Hypotension Secondary to hypoalbuminemia Continue to monitor lisinopril 5mg po qd, holding parameters Abdominal Pain, resolved Abd US: low-attenuation lesion L lobe liver. Liver exhibits increased echotexture secondary to fatty infiltration or hepatocellular disease. splenomegaly. several tiny echogenic foci adherent to gallbladder wall possibly representing polyps. slight increased renal echotexture. Colace PRN for Constipation Zofran prn History of BPH Flomax 0.4mg PO BID Bladder scans PRN Straight cath prn History of HTN Lisinopril 5mg PO daily Holding parameters Poor Nutrition encourage PO intake Low Microbial Diet Ensure Enlive TID Megace 400mg PO BID Prophylaxis: Protonix 40mg po qd SCDs contraindicated 2/2 edema; AC contraindicated 2/2 pancytopenia PT/OT DNR/DNI Dispo: Awaiting family decision regarding hospice Plan discussed with Dr Lindsay Coreas DO PGY-2
[2019-01-30] MEDS: Mag&Al/Simet/Diphen/Lido 237 ML KIT PO SCH ×4 (00:34→17:47)
[2019-01-30] MEDS: guaiFENesin 200 mg/10 ml Syrup UD PO SCH ×6 (00:34→20:04)
[2019-01-30] MEDS: ceFAZolin 1 gm FROZEN Premix 1 GM/50 ML ML IVPB SCH ×3 (01:01→17:49)
[2019-01-30] MEDS: Albuterol-Ipratrop 3 mg / 0.5 (3 ml) UD INH SCH ×4 (01:30→20:39)
--- NOTE | 2019-01-30 04:20 | CP.PCM.PN ---
Subjective - Date & Time of Evaluation Date of Evaluation: 01/30/19 Time of Evaluation: 06:45 - Subjective Subjective: PGY-1 Medicine Progress Note for Dr. Montoya Patient was seen and examined in no acute distress with family at bedside feeding him a banana. Patient has no new complaints. Denies CP, SOB, n/v/c/d. Objective - Vital Signs/Intake and Output Vital Signs (last 24 hours): Temp Pulse Resp BP Pulse Ox 97.8 F 84 20 118/66 100 01/30/19 00:00 01/30/19 00:00 01/30/19 00:00 01/30/19 00:00 01/30/19 00:00 Intake and Output: 01/29/19 01/30/19 18:59 06:59 Intake Total 300 100 Output Total 0 20 Balance 300 80 - Medications Medications: Current Medications Acetaminophen (Tylenol 325mg Tab) 650 mg PO Q6 PRN PRN Reason: Pain, moderate (4-7) Last Admin: 01/11/19 19:32 Dose: 650 mg Acetaminophen (Tylenol 325mg Tab) 650 mg PO ONCE PRN PRN Reason: pre med Last Admin: 01/15/19 19:40 Dose: 650 mg Albuterol/Ipratropium (Duoneb 3 Mg/0.5 Mg (3 Ml) Ud) 3 ml INH RQ6 [facility] Last Admin: 01/30/19 01:30 Dose: Not Given Diphenhydramine HCl (Benadryl) 25 mg PO ONCE PRN PRN Reason: pre med Last Admin: 01/03/19 14:39 Dose: 25 mg Docusate Sodium (Colace) 100 mg PO BID PRN PRN Reason: Constipation Last Admin: 01/25/19 14:34 Dose: 100 mg Furosemide (Lasix) 20 mg PO DAILY [facility] Last Admin: 01/29/19 10:37 Dose: 20 mg Guaifenesin (Robitussin) 200 mg PO Q4H [facility] Last Admin: 01/29/19 19:37 Dose: Not Given Cefazolin Sodium (Ancef) 1 gm in 50 mls @ 100 mls/hr IVPB Q8H [facility]; Protocol Last Admin: 01/30/19 01:01 Dose: 100 mls/hr Lisinopril (Zestril) 5 mg PO DAILY [facility] Last Admin: 01/29/19 10:35 Dose: Not Given Megestrol Acetate (Megace) 400 mg PO BID [facility] Last Admin: 01/29/19 17:59 Dose: 400 mg Morphine Sulfate (Morphine) 1 mg IVP Q4 PRN PRN Reason: Pain, moderate (4-7) Ondansetron HCl (Zofran Odt) 4 mg PO Q6H PRN PRN Reason: Nausea/Vomiting Pantoprazole Sodium (Protonix Ec Tab) 40 mg PO DAILY [facility] Last Admin: 01/29/19 10:32 Dose: 40 mg Promethazine HCl (Phenergan Syrup) 6.25 mg PO Q6 PRN PRN Reason: Cough Last Admin: 01/12/19 17:49 Dose: 6.25 mg Saliva Substitute (First Magic Mouthwash) 5 ml PO Q6 [facility] Last Admin: 01/29/19 17:59 Dose: 5 ml Scopolamine (Transderm-Scop) 1 patch TD Q3D [facility] Last Admin: 01/29/19 10:34 Dose: 1 patch Tamsulosin HCl (Flomax) 0.4 mg PO BID [facility] Last Admin: 01/29/19 17:59 Dose: 0.4 mg - Labs Labs: 01/28/19 07:47 01/28/19 07:47 PT 14.8 SECONDS (9.7-12.2) H 01/21/19 11:03 INR 1.4 01/21/19 11:03 APTT 28 SECONDS (21-34) 01/21/19 11:03 - Constitutional Appears: Non-toxic, Cachectic, Chronically Ill - Head Exam Head Exam: ATRAUMATIC, NORMOCEPHALIC - Eye Exam Eye Exam: EOMI, Normal appearance - ENT Exam ENT Exam: Mucous Membranes Moist, Normal Exam - Respiratory Exam Respiratory Exam: Accessory Muscle Use, Decreased Breath Sounds, Rales Additional comments: right anterior chest tube right axillary pigtail to suction - Cardiovascular Exam Cardiovascular Exam: Tachycardia, REGULAR RHYTHM - GI/Abdominal Exam GI & Abdominal Exam: Soft. absent: Guarding, Tenderness - Extremities Exam Extremities Exam: Pedal Edema. 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 Plan: Right sided hydropneumothorax Administrative Technician Dr. Thurston consulted ID Dr. Ferrari consulted Management: -PIGTAIL IN PLACE 01/21/19, to suction -One way valve chest tube in place 01/28/19 -Antibiotics: Ancef 1 gm Q8H -Duonebs q6 -Lasix 20mg PO daily -Robitussin 200mg q4h, Phenergan 6.25mg po q6 prn, Scopolamine patch Imaging: -CXR 01/29/19 - Decreasing size right pneumothorax. Bilateral pleural effusion. Persistent pleural-based density in left hemithorax. Two right chest tubes unchanged. Right apical opacity, possible pneumonia - Chest CT (01/18/19) shows There has been marked increase in size right-sided effusion which is now so sedated with a anteriorly located moderate-sized pneumothorax (hydropneumothorax). Note the right-sided effusion exhibits a somewhat lobular configuration which could be secondary to chronic scarring and fibrosis with tethering of the lung to the pleural surface rather than loculated components. Associated mild atelectasis right lower as well as right upper lobes. Vague ground-glass opacities seen in the aerated portions of the upper right upper lobe although significant underlying centrilobular. 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 There is a small to medium size left-sided effusion with significant atelectatic changes of the left entire left lung. Abdominal ascites. Redemonstrated are multiple low-attenuation hepatic lesions. Pancytopenia 2/[address] Bobby consulted, no further chemotherapy tx as pt is not respond ing hgb 7.2, plts 55, s/p 1U PRBC (01/26) Zofran 4mg Q6 PRN Transfuse PRN PICC inserted (01/26) Anasarca improving lasix 20mg po qd morphine 1mg q6 prn pain in LE 2/2 edema Hypotension Secondary to hypoalbuminemia Continue to monitor lisinopril 5mg po qd, holding parameters Abdominal Pain, resolved Abd US: low-attenuation lesion L lobe liver. Liver exhibits increased echotexture secondary to fatty infiltration or hepatocellular disease. splenomegaly. several tiny echogenic foci adherent to gallbladder wall possibly representing polyps. slight increased renal echotexture. Colace PRN for Constipation Zofran prn History of BPH Flomax 0.4mg PO BID Bladder scans PRN Straight cath prn History of HTN Lisinopril 5mg PO daily Holding parameters Poor Nutrition encourage PO intake Low Microbial Diet Ensure Enlive TID Megace 400mg PO BID Prophylaxis: Protonix 40mg po qd SCDs contraindicated 2/2 edema; AC contraindicated 2/2 pancytopenia PT/OT DNR/DNI Dispo: Awaiting family decision regarding hospice
[2019-01-30 08:01] LABS: BASO % 0.4 % (0.0-2.0); EOS % 0.4 % (0.0-4.0); LYMPH # 0.1 K/uL (1.0-4.3); LYMPH % 58.6 % (20.0-40.0); MEAN CELL VOLUME 91.7 fL (80.0-94.0); MEAN CORPUSCULAR HEMOGLOBIN 31.1 pg (27.0-31.0); MEAN CORPUSCULAR HGB CONC 33.9 g/dL (33.0-37.0); MEAN PLATELET VOLUME 7.7 fL (7.2-11.7); MONO % 3.6 % (0.0-10.0); NEUT # 0.1 K/uL (1.8-7.0); NRBC % 1.1 % (0.0-2.0); RBC 2.03 Mil/uL (4.40-5.90); RED CELL DISTRIBUTION WIDTH 13.2 % (11.5-14.5)
[2019-01-30 08:27] LABS: HEMOGLOBIN 6.3 g/dL (12.0-18.0); WHITE BLOOD COUNT 0.2 K/uL (4.8-10.8)
[2019-01-30 08:28] LABS: ALB/GLOB RATIO 0.5 (1.0-2.1); ALBUMIN 1.2 g/dL (3.5-5.0); ALT/SGPT 12 U/L (21-72); AST/SGOT 6 U/L (17-59); BLOOD UREA NITROGEN 30 mg/dL (9-20); CALCIUM 7.6 mg/dl (8.6-10.4); GFR NON-AFRICAN AMERICAN > 60
[2019-01-30] MEDS: Megestrol Acetate 40 mg/ml Cup PO SCH ×2 (10:40→17:49)
[2019-01-30] MEDS: Pantoprazole 40 mg EC Tab PO SCH (10:40)
--- NOTE | 2019-01-30 13:15 | CP.PCM.PN ---
Subjective - Date & Time of Evaluation Date of Evaluation: 01/30/19 Time of Evaluation: 13:15 - Subjective Subjective: Pulmonary follow up, Covering Dr Thurston The Patient was seen and examined at the bedside, Medical records reviewed, and management issues were discussed and formulated with the house staff. Events reviewed Patient comfortable, in no apperent distress 01/30/2019 CXR reviewed: Two right chest tubes on the Right Increased size right pneumothorax. Bilateral pleural effusion more on the Right. Persistent pleural-based density in left hemithorax. Right apical opacity, possible pneumonia. Objective - Vital Signs/Intake and Output Vital Signs (last 24 hours): Temp Pulse Resp BP Pulse Ox 97.9 F 88 20 108/64 96 01/30/19 08:01 01/30/19 08:01 01/30/19 08:01 01/30/19 10:41 01/30/19 08:01 Intake and Output: 01/30/19 01/30/19 06:59 18:59 Intake Total 100 75 Output Total 20 1 Balance 80 74 - Medications Medications: Current Medications Acetaminophen (Tylenol 325mg Tab) 650 mg PO Q6 PRN PRN Reason: Pain, moderate (4-7) Last Admin: 01/11/19 19:32 Dose: 650 mg Acetaminophen (Tylenol 325mg Tab) 650 mg PO ONCE PRN PRN Reason: pre med Last Admin: 01/15/19 19:40 Dose: 650 mg Albuterol/Ipratropium (Duoneb 3 Mg/0.5 Mg (3 Ml) Ud) 3 ml INH RQ6 [facility] Last Admin: 01/30/19 08:15 Dose: 3 ml Diphenhydramine HCl (Benadryl) 25 mg PO ONCE PRN PRN Reason: pre med Last Admin: 01/03/19 14:39 Dose: 25 mg Docusate Sodium (Colace) 100 mg PO BID PRN PRN Reason: Constipation Last Admin: 01/25/19 14:34 Dose: 100 mg Furosemide (Lasix) 20 mg PO DAILY [facility] Last Admin: 01/30/19 10:41 Dose: 20 mg Guaifenesin (Robitussin) 200 mg PO Q4H [facility] Last Admin: 01/30/19 13:06 Dose: Not Given Cefazolin Sodium (Ancef) 1 gm in 50 mls @ 100 mls/hr IVPB Q8H [facility]; Protocol Last Admin: 01/30/19 10:00 Dose: 100 mls/hr Lisinopril (Zestril) 5 mg PO DAILY [facility] Last Admin: 01/30/19 10:51 Dose: Not Given Megestrol Acetate (Megace) 400 mg PO BID [facility] Last Admin: 01/30/19 10:40 Dose: 400 mg Morphine Sulfate (Morphine) 1 mg IVP Q4 PRN PRN Reason: Pain, moderate (4-7) Ondansetron HCl (Zofran Odt) 4 mg PO Q6H PRN PRN Reason: Nausea/Vomiting Pantoprazole Sodium (Protonix Ec Tab) 40 mg PO DAILY [facility] Last Admin: 01/30/19 10:40 Dose: 40 mg Promethazine HCl (Phenergan Syrup) 6.25 mg PO Q6 PRN PRN Reason: Cough Last Admin: 01/12/19 17:49 Dose: 6.25 mg Saliva Substitute (First Magic Mouthwash) 5 ml PO Q6 [facility] Last Admin: 01/30/19 13:05 Dose: 5 ml Scopolamine (Transderm-Scop) 1 patch TD Q3D [facility] Last Admin: 01/29/19 10:34 Dose: 1 patch Tamsulosin HCl (Flomax) 0.4 mg PO BID [facility] Last Admin: 01/30/19 10:40 Dose: 0.4 mg - Labs Labs: 01/30/19 07:50 01/30/19 07:50 PT 14.8 SECONDS (9.7-12.2) H 01/21/19 11:03 INR 1.4 01/21/19 11:03 APTT 28 SECONDS (21-34) 01/21/19 11:03 Assessment and Plan (1) Pancytopenia Status: Acute (2) Pleural effusion, left Status: Acute (3) Pneumonia Status: Acute (4) Lung mass Status: Acute (5) Pneumothorax Status: Acute
--- NOTE | 2019-01-30 15:51 | RAD ---
Date of service: 01/30/2019 HISTORY: evaluation of right pneumothorax, s/p chest pain COMPARISON: 01/29/2019 TECHNIQUE: 1 view obtained. FINDINGS: LUNGS: Heterogeneous opacity in right lung. Rule out pneumonia. Opacity at right base has increased slightly compared to prior. Right pneumothorax mildly increased from prior examination. Two small caliber right chest tubes are again noted unchanged in position. No left pneumothorax. Bilateral small pleural effusions. Extensive pleural-based soft tissue density along left lateral chest wall and in the left apex, unchanged. PLEURA: As above CARDIOVASCULAR: There is atherosclerotic calcification of the thoracic aorta. Normal cardiac size. No pulmonary vascular congestion. OSSEOUS STRUCTURES: No significant abnormalities. VISUALIZED UPPER ABDOMEN: Normal. OTHER FINDINGS: None. IMPRESSION: Mild increase in size of right pneumothorax. Two right chest tubes unchanged in position. No other interval change.
[2019-01-31] MEDS: Mag&Al/Simet/Diphen/Lido 237 ML KIT PO SCH ×4 (00:19→18:06)
[2019-01-31] MEDS: guaiFENesin 200 mg/10 ml Syrup UD PO SCH ×6 (00:20→19:05)
--- NOTE | 2019-01-31 00:58 | CP.PCM.PN ---
Subjective - Date & Time of Evaluation Date of Evaluation: 01/28/19 Time of Evaluation: 19:00 - Subjective Subjective: Breathing better s/p chest tube Objective - Vital Signs/Intake and Output Vital Signs (last 24 hours): Temp Pulse Resp BP Pulse Ox 98.3 F 98 H 20 113/57 L 97 01/31/19 00:48 01/31/19 00:48 01/31/19 00:48 01/31/19 00:48 01/31/19 00:25 Intake and Output: 01/30/19 01/31/19 18:59 06:59 Intake Total 245 800 Output Total 111 40 Balance 134 760 - Medications Medications: Current Medications Acetaminophen (Tylenol 325mg Tab) 650 mg PO Q6 PRN PRN Reason: Pain, moderate (4-7) Last Admin: 01/11/19 19:32 Dose: 650 mg Acetaminophen (Tylenol 325mg Tab) 650 mg PO ONCE PRN PRN Reason: pre med Last Admin: 01/15/19 19:40 Dose: 650 mg Albuterol/Ipratropium (Duoneb 3 Mg/0.5 Mg (3 Ml) Ud) 3 ml INH RQ6 [facility] Last Admin: 01/30/19 20:39 Dose: 3 ml Diphenhydramine HCl (Benadryl) 25 mg PO ONCE PRN PRN Reason: pre med Last Admin: 01/03/19 14:39 Dose: 25 mg Docusate Sodium (Colace) 100 mg PO BID PRN PRN Reason: Constipation Last Admin: 01/25/19 14:34 Dose: 100 mg Furosemide (Lasix) 20 mg PO DAILY [facility] Last Admin: 01/30/19 10:41 Dose: 20 mg Guaifenesin (Robitussin) 200 mg PO Q4H [facility] Last Admin: 01/30/19 20:04 Dose: Not Given Cefazolin Sodium (Ancef) 1 gm in 50 mls @ 100 mls/hr IVPB Q8H [facility]; Protocol Last Admin: 01/30/19 17:49 Dose: 100 mls/hr Lisinopril (Zestril) 5 mg PO DAILY [facility] Last Admin: 01/30/19 10:51 Dose: Not Given Megestrol Acetate (Megace) 400 mg PO BID [facility] Last Admin: 01/30/19 17:49 Dose: 400 mg Morphine Sulfate (Morphine) 1 mg IVP Q4 PRN PRN Reason: Pain, moderate (4-7) Ondansetron HCl (Zofran Odt) 4 mg PO Q6H PRN PRN Reason: Nausea/Vomiting Pantoprazole Sodium (Protonix Ec Tab) 40 mg PO DAILY [facility] Last Admin: 01/30/19 10:40 Dose: 40 mg Promethazine HCl (Phenergan Syrup) 6.25 mg PO Q6 PRN PRN Reason: Cough Last Admin: 01/12/19 17:49 Dose: 6.25 mg Saliva Substitute (First Magic Mouthwash) 5 ml PO Q6 [facility] Last Admin: 01/30/19 17:47 Dose: Not Given Scopolamine (Transderm-Scop) 1 patch TD Q3D [facility] Last Admin: 01/29/19 10:34 Dose: 1 patch Tamsulosin HCl (Flomax) 0.4 mg PO BID [facility] Last Admin: 01/30/19 17:49 Dose: 0.4 mg - Labs Labs: 01/30/19 07:50 01/30/19 07:50 PT 14.8 SECONDS (9.7-12.2) H 01/21/19 11:03 INR 1.4 01/21/19 11:03 APTT 28 SECONDS (21-34) 01/21/19 11:03 - Constitutional Appears: Cachectic - Head Exam Head Exam: ATRAUMATIC - Eye Exam Eye Exam: Normal appearance - ENT Exam ENT Exam: Mucous Membranes Dry - Respiratory Exam Respiratory Exam: NORMAL BREATHING PATTERN - Cardiovascular Exam Cardiovascular Exam: +S1, +S2 - GI/Abdominal Exam GI & Abdominal Exam: Normal Bowel Sounds Assessment and Plan (1) Pancytopenia Assessment & Plan: secondary to AML transfusion support PRN Status: Chronic (2) AML (acute myeloblastic leukemia) Assessment & Plan: supportive care DNR/DNI possible hospice Status: Chronic
--- NOTE | 2019-01-31 00:59 | CP.PCM.PN ---
Subjective - Date & Time of Evaluation Date of Evaluation: 01/29/19 Time of Evaluation: 17:00 - Subjective Subjective: Breathing better s/p chest tube. Objective - Vital Signs/Intake and Output Vital Signs (last 24 hours): Temp Pulse Resp BP Pulse Ox 98.3 F 98 H 20 113/57 L 97 01/31/19 00:48 01/31/19 00:48 01/31/19 00:48 01/31/19 00:48 01/31/19 00:25 Intake and Output: 01/30/19 01/31/19 18:59 06:59 Intake Total 245 800 Output Total 111 40 Balance 134 760 - Medications Medications: Current Medications Acetaminophen (Tylenol 325mg Tab) 650 mg PO Q6 PRN PRN Reason: Pain, moderate (4-7) Last Admin: 01/11/19 19:32 Dose: 650 mg Acetaminophen (Tylenol 325mg Tab) 650 mg PO ONCE PRN PRN Reason: pre med Last Admin: 01/15/19 19:40 Dose: 650 mg Albuterol/Ipratropium (Duoneb 3 Mg/0.5 Mg (3 Ml) Ud) 3 ml INH RQ6 [facility] Last Admin: 01/30/19 20:39 Dose: 3 ml Diphenhydramine HCl (Benadryl) 25 mg PO ONCE PRN PRN Reason: pre med Last Admin: 01/03/19 14:39 Dose: 25 mg Docusate Sodium (Colace) 100 mg PO BID PRN PRN Reason: Constipation Last Admin: 01/25/19 14:34 Dose: 100 mg Furosemide (Lasix) 20 mg PO DAILY [facility] Last Admin: 01/30/19 10:41 Dose: 20 mg Guaifenesin (Robitussin) 200 mg PO Q4H [facility] Last Admin: 01/30/19 20:04 Dose: Not Given Cefazolin Sodium (Ancef) 1 gm in 50 mls @ 100 mls/hr IVPB Q8H [facility]; Protocol Last Admin: 01/30/19 17:49 Dose: 100 mls/hr Lisinopril (Zestril) 5 mg PO DAILY [facility] Last Admin: 01/30/19 10:51 Dose: Not Given Megestrol Acetate (Megace) 400 mg PO BID [facility] Last Admin: 01/30/19 17:49 Dose: 400 mg Morphine Sulfate (Morphine) 1 mg IVP Q4 PRN PRN Reason: Pain, moderate (4-7) Ondansetron HCl (Zofran Odt) 4 mg PO Q6H PRN PRN Reason: Nausea/Vomiting Pantoprazole Sodium (Protonix Ec Tab) 40 mg PO DAILY [facility] Last Admin: 01/30/19 10:40 Dose: 40 mg Promethazine HCl (Phenergan Syrup) 6.25 mg PO Q6 PRN PRN Reason: Cough Last Admin: 01/12/19 17:49 Dose: 6.25 mg Saliva Substitute (First Magic Mouthwash) 5 ml PO Q6 [facility] Last Admin: 01/30/19 17:47 Dose: Not Given Scopolamine (Transderm-Scop) 1 patch TD Q3D [facility] Last Admin: 01/29/19 10:34 Dose: 1 patch Tamsulosin HCl (Flomax) 0.4 mg PO BID [facility] Last Admin: 01/30/19 17:49 Dose: 0.4 mg - Labs Labs: 01/30/19 07:50 01/30/19 07:50 PT 14.8 SECONDS (9.7-12.2) H 01/21/19 11:03 INR 1.4 01/21/19 11:03 APTT 28 SECONDS (21-34) 01/21/19 11:03 - Head Exam Head Exam: ATRAUMATIC - Eye Exam Eye Exam: Normal appearance - ENT Exam ENT Exam: Mucous Membranes Dry - Respiratory Exam Respiratory Exam: NORMAL BREATHING PATTERN - Cardiovascular Exam Cardiovascular Exam: +S1, +S2 - GI/Abdominal Exam GI & Abdominal Exam: Normal Bowel Sounds Assessment and Plan (1) Pancytopenia Assessment & Plan: secondary to AML transfusion support PRN Status: Chronic (2) AML (acute myeloblastic leukemia) Assessment & Plan: supportive care DNR/DNI hospice consideration Status: Chronic
[2019-01-31] MEDS: Albuterol-Ipratrop 3 mg / 0.5 (3 ml) UD INH SCH ×3 (07:21→19:37)
[2019-01-31 08:57] LABS: BASO % 0.7 % (0.0-2.0); EOS % 0.6 % (0.0-4.0); LYMPH # 0.2 K/uL (1.0-4.3); LYMPH % 57.7 % (20.0-40.0); MEAN CORPUSCULAR HGB CONC 33.5 g/dL (33.0-37.0); MEAN PLATELET VOLUME 7.7 fL (7.2-11.7); MONO % 2.4 % (0.0-10.0); NEUT # 0.1 K/uL (1.8-7.0); NEUT % 38.6 % (50.0-75.0); NRBC % 0.2 % (0.0-2.0); RBC 2.92 Mil/uL (4.40-5.90); RED CELL DISTRIBUTION WIDTH 14.1 % (11.5-14.5)
[2019-01-31 09:03] LABS: HEMOGLOBIN 8.8 g/dL (12.0-18.0); MEAN CELL VOLUME 89.5 fL (80.0-94.0); WHITE BLOOD COUNT 0.3 K/uL (4.8-10.8)
--- NOTE | 2019-01-31 09:07 | CP.PCM.PN ---
Subjective - Date & Time of Evaluation Date of Evaluation: 01/31/19 Time of Evaluation: 08:30 - Subjective Subjective: Patient examined at bedside with in room. Patient reports he feels well s/p 2U PRBCs. Discussion held with pt and regarding decision of inpatient hospice; they report no decision made, daughters will come later in day to dis cuss. Patient reports improvement in lower extremity edema and associated pain; pt reports improvement in range of motion. Pt denies further complaints of chest pain, SOB, cough, urinary retention. Objective - Vital Signs/Intake and Output Vital Signs (last 24 hours): Temp Pulse Resp BP Pulse Ox 98.2 F 86 20 103/55 L 97 01/31/19 04:10 01/31/19 04:10 01/31/19 04:10 01/31/19 04:10 01/31/19 00:25 Intake and Output: 01/31/19 01/31/19 06:59 18:59 Intake Total 1595 Output Total 120 Balance 1475 - Medications Medications: Current Medications Acetaminophen (Tylenol 325mg Tab) 650 mg PO Q6 PRN PRN Reason: Pain, moderate (4-7) Last Admin: 01/11/19 19:32 Dose: 650 mg Acetaminophen (Tylenol 325mg Tab) 650 mg PO ONCE PRN PRN Reason: pre med Last Admin: 01/15/19 19:40 Dose: 650 mg Albuterol/Ipratropium (Duoneb 3 Mg/0.5 Mg (3 Ml) Ud) 3 ml INH RQ6 [facility] Last Admin: 01/30/19 20:39 Dose: 3 ml Diphenhydramine HCl (Benadryl) 25 mg PO ONCE PRN PRN Reason: pre med Last Admin: 01/03/19 14:39 Dose: 25 mg Docusate Sodium (Colace) 100 mg PO BID PRN PRN Reason: Constipation Last Admin: 01/25/19 14:34 Dose: 100 mg Furosemide (Lasix) 20 mg PO DAILY [facility] Last Admin: 01/30/19 10:41 Dose: 20 mg Guaifenesin (Robitussin) 200 mg PO Q4H [facility] Last Admin: 01/31/19 04:20 Dose: Not Given Cefazolin Sodium (Ancef) 1 gm in 50 mls @ 100 mls/hr IVPB Q8H [facility]; Protocol Last Admin: 01/31/19 00:00 Dose: 100 mls/hr Lisinopril (Zestril) 5 mg PO DAILY [facility] Last Admin: 01/30/19 10:51 Dose: Not Given Megestrol Acetate (Megace) 400 mg PO BID [facility] Last Admin: 01/30/19 17:49 Dose: 400 mg Morphine Sulfate (Morphine) 1 mg IVP Q4 PRN PRN Reason: Pain, moderate (4-7) Ondansetron HCl (Zofran Odt) 4 mg PO Q6H PRN PRN Reason: Nausea/Vomiting Pantoprazole Sodium (Protonix Ec Tab) 40 mg PO DAILY [facility] Last Admin: 01/30/19 10:40 Dose: 40 mg Promethazine HCl (Phenergan Syrup) 6.25 mg PO Q6 PRN PRN Reason: Cough Last Admin: 01/12/19 17:49 Dose: 6.25 mg Saliva Substitute (First Magic Mouthwash) 5 ml PO Q6 [facility] Last Admin: 01/31/19 06:33 Dose: Not Given Scopolamine (Transderm-Scop) 1 patch TD Q3D [facility] Last Admin: 01/29/19 10:34 Dose: 1 patch Tamsulosin HCl (Flomax) 0.4 mg PO BID [facility] Last Admin: 01/30/19 17:49 Dose: 0.4 mg - Labs Labs: 01/30/19 07:50 01/30/19 07:50 PT 14.8 SECONDS (9.7-12.2) H 01/21/19 11:03 INR 1.4 01/21/19 11:03 APTT 28 SECONDS (21-34) 01/21/19 11:03 - Constitutional Appears: Non-toxic, Cachectic, Chronically Ill - Head Exam Head Exam: ATRAUMATIC, NORMAL INSPECTION, NORMOCEPHALIC - Eye Exam Eye Exam: EOMI, Normal appearance - ENT Exam ENT Exam: Normal Exam - Respiratory Exam Respiratory Exam: Accessory Muscle Use, Decreased Breath Sounds, Rales. absent: Respiratory Distress Additional comments: right anterior chest tube right axillary chest tube minimal ss output - Cardiovascular Exam Cardiovascular Exam: REGULAR RHYTHM, +S1, +S2. absent: Tachycardia - GI/Abdominal Exam GI & Abdominal Exam: Soft, Normal Bowel Sounds. absent: Distended, Tenderness - Extremities Exam Extremities Exam: Pedal Edema (3+), Tenderness (dorsal feet). absent: Calf Tenderness - Neurological Exam Neurological Exam: Alert, Awake - Psychiatric Exam Psychiatric exam: Flat Affect - Skin Skin Exam: Dry, Pallor, Warm Assessment and Plan - Assessment and Plan (Free Text) Assessment: 78 year old male with history of COPD, 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 Plan: Right sided hydropneumothorax School Cleaner Dr. Thurston consulted ID Dr. Ferrari consulted Management: - PIGTAIL IN PLACE 01/21/19, to suction - One way valve chest tube in place 01/28/19 Zyvox 600mg po BID, PO abx per ID Duonebs q6 Lasix 20mg PO daily Robitussin 200mg q4h Phenergan 6.25mg po q6 prn Scopolamine patch Imaging: - CXR(01/31): Mild increase in size of right pneumothorax Pancytopenia 2/[address] Bobby consulted, no further chemotherapy tx as pt is not responding hgb 8.8, plts 39, s/p 2U PRBC (01/30) Zofran 4mg Q6 PRN Transfuse PRN PICC inserted (01/26) Anasarca improving lasix 20mg po qd albumin 1.2 today, repletion not indicated 2/2 poor status and worsening hydropneumothorax morphine 1mg q6 prn pain in LE 2/2 edema Hypotension 2/2 hypoalbuminemia Continue to monitor lisinopril 5mg po qd, holding parameters Abdominal Pain, resolved Abd US: low-attenuation lesion L lobe liver. Liver exhibits increased echotexture secondary to fatty infiltration or hepatocellular disease. splenomegaly. several tiny echogenic foci adherent to gallbladder wall possibly representing polyps. slight increased renal echotexture. Colace PRN for Constipation Zofran prn History of BPH Flomax 0.4mg PO BID Bladder scans PRN Straight cath prn History of HTN Lisinopril 5mg PO daily Holding parameters Poor Nutrition encourage PO intake Low Microbial Diet Ensure Enlive TID Megace 400mg PO BID Prophylaxis: Protonix 40mg po qd SCDs contraindicated 2/2 edema; AC contraindicated 2/2 pancytopenia PT/OT DNR/DNI Dispo: Awaiting family decision regarding hospice, they remain undecided despite patient's wishes to leave Discussed with Dr. Lindsay Amato, PGY-1
[2019-01-31] MEDS: ceFAZolin 1 gm FROZEN Premix 1 GM/50 ML ML IVPB SCH ×3 (09:33→18:02)
[2019-01-31] MEDS: Megestrol Acetate 40 mg/ml Cup PO SCH ×2 (09:33→18:15)
[2019-01-31] MEDS: Pantoprazole 40 mg EC Tab PO SCH (09:36)
--- NOTE | 2019-01-31 12:55 | CP.PCM.PN ---
Subjective - Date & Time of Evaluation Date of Evaluation: 01/31/19 Time of Evaluation: 09:00 - Subjective Subjective: Patient seen and examined Breathing much improved Complaining of back and buttocks pain Afebrile Heimlich valve in place Objective - Vital Signs/Intake and Output Vital Signs (last 24 hours): Temp Pulse Resp BP Pulse Ox 98.6 F 87 20 129/67 100 01/31/19 10:54 01/31/19 10:54 01/31/19 10:54 01/31/19 10:54 01/31/19 10:54 Intake and Output: 01/31/19 01/31/19 06:59 18:59 Intake Total 1595 Output Total 120 Balance 1475 - Medications Medications: Current Medications Acetaminophen (Tylenol 325mg Tab) 650 mg PO Q6 PRN PRN Reason: Pain, moderate (4-7) Last Admin: 01/11/19 19:32 Dose: 650 mg Acetaminophen (Tylenol 325mg Tab) 650 mg PO ONCE PRN PRN Reason: pre med Last Admin: 01/15/19 19:40 Dose: 650 mg Albuterol/Ipratropium (Duoneb 3 Mg/0.5 Mg (3 Ml) Ud) 3 ml INH RQ6 [facility] Last Admin: 01/30/19 20:39 Dose: 3 ml Diphenhydramine HCl (Benadryl) 25 mg PO ONCE PRN PRN Reason: pre med Last Admin: 01/03/19 14:39 Dose: 25 mg Docusate Sodium (Colace) 100 mg PO BID PRN PRN Reason: Constipation Last Admin: 01/25/19 14:34 Dose: 100 mg Furosemide (Lasix) 20 mg PO DAILY [facility] Last Admin: 01/31/19 09:35 Dose: 20 mg Guaifenesin (Robitussin) 200 mg PO Q4H [facility] Last Admin: 01/31/19 09:36 Dose: Not Given Cefazolin Sodium (Ancef) 1 gm in 50 mls @ 100 mls/hr IVPB Q8H [facility]; Protocol Last Admin: 01/31/19 09:33 Dose: 100 mls/hr Lisinopril (Zestril) 5 mg PO DAILY [facility] Last Admin: 01/31/19 09:36 Dose: 5 mg Megestrol Acetate (Megace) 400 mg PO BID [facility] Last Admin: 01/31/19 09:33 Dose: 400 mg Morphine Sulfate (Morphine) 1 mg IVP Q4 PRN PRN Reason: Pain, moderate (4-7) Ondansetron HCl (Zofran Odt) 4 mg PO Q6H PRN PRN Reason: Nausea/Vomiting Pantoprazole Sodium (Protonix Ec Tab) 40 mg PO DAILY [facility] Last Admin: 01/31/19 09:36 Dose: 40 mg Promethazine HCl (Phenergan Syrup) 6.25 mg PO Q6 PRN PRN Reason: Cough Last Admin: 01/12/19 17:49 Dose: 6.25 mg Saliva Substitute (First Magic Mouthwash) 5 ml PO Q6 [facility] Last Admin: 01/31/19 06:33 Dose: Not Given Scopolamine (Transderm-Scop) 1 patch TD Q3D [facility] Last Admin: 01/29/19 10:34 Dose: 1 patch Tamsulosin HCl (Flomax) 0.4 mg PO BID [facility] Last Admin: 01/31/19 09:36 Dose: 0.4 mg - Labs Labs: 01/31/19 08:44 01/30/19 07:50 PT 14.8 SECONDS (9.7-12.2) H 01/21/19 11:03 INR 1.4 01/21/19 11:03 APTT 28 SECONDS (21-34) 01/21/19 11:03 - Head Exam Head Exam: ATRAUMATIC, NORMOCEPHALIC - ENT Exam ENT Exam: Mucous Membranes Moist - Neck Exam Neck Exam: Normal Inspection - Respiratory Exam Respiratory Exam: Clear to Ausculation Bilateral - Cardiovascular Exam Cardiovascular Exam: REGULAR RHYTHM - GI/Abdominal Exam GI & Abdominal Exam: Soft, Normal Bowel Sounds Assessment and Plan (1) Pneumothorax Assessment & Plan: Status post Heimlich valve insertion Not much drainage from the pigtail catheter Continue present treatment Status: Acute (2) Pneumonia Status: Acute (3) Pancytopenia Status: Acute (4) Pleural effusion, left Status: Acute (5) Pneumothorax Status: Acute
--- NOTE | 2019-01-31 22:54 | CP.PCM.PN ---
Subjective - Date & Time of Evaluation Date of Evaluation: 01/31/19 Time of Evaluation: 19:00 - Subjective Subjective: Feels better s/p PRBC transfusion. Objective - Vital Signs/Intake and Output Vital Signs (last 24 hours): Temp Pulse Resp BP Pulse Ox 98.8 F 86 20 92/59 L 100 01/31/19 15:56 01/31/19 15:56 01/31/19 15:56 01/31/19 15:56 01/31/19 15:56 Intake and Output: 01/31/19 02/01/19 18:59 06:59 Intake Total 200 100 Output Total 15 Balance 200 85 - Medications Medications: Current Medications Acetaminophen (Tylenol 325mg Tab) 650 mg PO Q6 PRN PRN Reason: Pain, moderate (4-7) Last Admin: 01/11/19 19:32 Dose: 650 mg Acetaminophen (Tylenol 325mg Tab) 650 mg PO ONCE PRN PRN Reason: pre med Last Admin: 01/15/19 19:40 Dose: 650 mg Albuterol/Ipratropium (Duoneb 3 Mg/0.5 Mg (3 Ml) Ud) 3 ml INH RQ6 [facility] Last Admin: 01/31/19 19:37 Dose: 3 ml Diphenhydramine HCl (Benadryl) 25 mg PO ONCE PRN PRN Reason: pre med Last Admin: 01/03/19 14:39 Dose: 25 mg Docusate Sodium (Colace) 100 mg PO BID PRN PRN Reason: Constipation Last Admin: 01/25/19 14:34 Dose: 100 mg Furosemide (Lasix) 20 mg PO DAILY [facility] Last Admin: 01/31/19 09:35 Dose: 20 mg Guaifenesin (Robitussin) 200 mg PO Q4H [facility] Last Admin: 01/31/19 19:05 Dose: Not Given Cefazolin Sodium (Ancef) 1 gm in 50 mls @ 100 mls/hr IVPB Q8H [facility]; Protocol Last Admin: 01/31/19 18:02 Dose: 100 mls/hr Lisinopril (Zestril) 5 mg PO DAILY [facility] Last Admin: 01/31/19 09:36 Dose: 5 mg Megestrol Acetate (Megace) 400 mg PO BID [facility] Last Admin: 01/31/19 18:15 Dose: Not Given Morphine Sulfate (Morphine) 1 mg IVP Q4 PRN PRN Reason: Pain, moderate (4-7) Ondansetron HCl (Zofran Odt) 4 mg PO Q6H PRN PRN Reason: Nausea/Vomiting Pantoprazole Sodium (Protonix Ec Tab) 40 mg PO DAILY [facility] Last Admin: 01/31/19 09:36 Dose: 40 mg Promethazine HCl (Phenergan Syrup) 6.25 mg PO Q6 PRN PRN Reason: Cough Last Admin: 01/12/19 17:49 Dose: 6.25 mg Saliva Substitute (First Magic Mouthwash) 5 ml PO Q6 [facility] Last Admin: 01/31/19 18:06 Dose: 5 ml Scopolamine (Transderm-Scop) 1 patch TD Q3D [facility] Last Admin: 01/29/19 10:34 Dose: 1 patch Tamsulosin HCl (Flomax) 0.4 mg PO BID [facility] Last Admin: 01/31/19 18:25 Dose: 0.4 mg - Labs Labs: 01/31/19 08:44 01/30/19 07:50 PT 14.8 SECONDS (9.7-12.2) H 01/21/19 11:03 INR 1.4 01/21/19 11:03 APTT 28 SECONDS (21-34) 01/21/19 11:03 - Constitutional Appears: Cachectic - Head Exam Head Exam: ATRAUMATIC - Eye Exam Eye Exam: Normal appearance - ENT Exam ENT Exam: Mucous Membranes Dry - Respiratory Exam Respiratory Exam: Decreased Breath Sounds - Cardiovascular Exam Cardiovascular Exam: +S1, +S2 - GI/Abdominal Exam GI & Abdominal Exam: Normal Bowel Sounds Assessment and Plan (1) Pancytopenia Assessment & Plan: secondary to AML transfusion support PRN Status: Chronic (2) AML (acute myeloblastic leukemia) Assessment & Plan: supportive care DNR/DNI hospice consideration Status: Chronic
[2019-02-01] MEDS: guaiFENesin 200 mg/10 ml Syrup UD PO SCH ×7 (00:01→20:02)
[2019-02-01] MEDS: ceFAZolin 1 gm FROZEN Premix 1 GM/50 ML ML IVPB SCH ×3 (00:58→17:52)
[2019-02-01] MEDS: Albuterol-Ipratrop 3 mg / 0.5 (3 ml) UD INH SCH ×4 (01:55→20:37)
[2019-02-01] MEDS: Mag&Al/Simet/Diphen/Lido 237 ML KIT PO SCH ×4 (06:00→18:05)
[2019-02-01 06:18] LABS: EOS % 0.4 % (0.0-4.0); HEMOGLOBIN 9.8 g/dL (12.0-18.0); LYMPH # 0.2 K/uL (1.0-4.3); LYMPH % 67.6 % (20.0-40.0); MEAN CORPUSCULAR HEMOGLOBIN 29.9 pg (27.0-31.0); MEAN CORPUSCULAR HGB CONC 33.6 g/dL (33.0-37.0); MEAN PLATELET VOLUME 8.4 fL (7.2-11.7); MONO % 7.9 % (0.0-10.0); NEUT # 0.1 K/uL (1.8-7.0); NEUT % 24.1 % (50.0-75.0); NRBC % 0.5 % (0.0-2.0); RBC 3.28 Mil/uL (4.40-5.90)
[2019-02-01 06:34] LABS: ALB/GLOB RATIO 0.7 (1.0-2.1); ALBUMIN 1.4 g/dL (3.5-5.0); ALT/SGPT 19 U/L (21-72); AST/SGOT 7 U/L (17-59); BLOOD UREA NITROGEN 28 mg/dL (9-20); CALCIUM 7.7 mg/dl (8.6-10.4); GFR NON-AFRICAN AMERICAN > 60
[2019-02-01 07:03] LABS: WHITE BLOOD COUNT 0.4 K/uL (4.8-10.8)
[2019-02-01 07:36] VITALS: RESP 20
[2019-02-01] MEDS: Megestrol Acetate 40 mg/ml Cup PO SCH ×2 (09:44→20:05)
[2019-02-01] MEDS: Pantoprazole 40 mg EC Tab PO SCH (09:46)
--- NOTE | 2019-02-01 13:45 | CP.PCM.PN ---
Subjective - Date & Time of Evaluation Date of Evaluation: 02/01/19 Time of Evaluation: 13:39 - Subjective Subjective: Medicine Progress Note for Dr. Montoya's service S/E at bedside. at bedside patient unable to move extremities due to weakness. Denies fevers, cp, sob, n/v, diarrhea, and dysuria. Objective - Vital Signs/Intake and Output Vital Signs (last 24 hours): Temp Pulse Resp BP Pulse Ox 97.9 F 75 20 127/67 100 02/01/19 07:35 02/01/19 07:35 02/01/19 07:35 02/01/19 09:45 02/01/19 07:35 Intake and Output: 02/01/19 02/01/19 06:59 18:59 Intake Total 100 Output Total 40 Balance 60 - Medications Medications: Current Medications Acetaminophen (Tylenol 325mg Tab) 650 mg PO Q6 PRN PRN Reason: Pain, moderate (4-7) Last Admin: 01/11/19 19:32 Dose: 650 mg Albuterol/Ipratropium (Duoneb 3 Mg/0.5 Mg (3 Ml) Ud) 3 ml INH RQ6 [facility] Last Admin: 02/01/19 08:25 Dose: 3 ml Diphenhydramine HCl (Benadryl) 25 mg PO ONCE PRN PRN Reason: pre med Last Admin: 01/03/19 14:39 Dose: 25 mg Docusate Sodium (Colace) 100 mg PO BID PRN PRN Reason: Constipation Last Admin: 01/25/19 14:34 Dose: 100 mg Furosemide (Lasix) 20 mg PO DAILY [facility] Last Admin: 02/01/19 09:45 Dose: 20 mg Guaifenesin (Robitussin) 200 mg PO Q4H [facility] Last Admin: 02/01/19 12:45 Dose: Not Given Cefazolin Sodium (Ancef) 1 gm in 50 mls @ 100 mls/hr IVPB Q8H [facility]; Protocol Last Admin: 02/01/19 08:55 Dose: 100 mls/hr Lisinopril (Zestril) 5 mg PO DAILY [facility] Last Admin: 02/01/19 09:46 Dose: 5 mg Megestrol Acetate (Megace) 400 mg PO BID [facility] Last Admin: 02/01/19 09:44 Dose: 400 mg Morphine Sulfate (Morphine) 1 mg IVP Q4 PRN PRN Reason: Pain, moderate (4-7) Ondansetron HCl (Zofran Odt) 4 mg PO Q6H PRN PRN Reason: Nausea/Vomiting Pantoprazole Sodium (Protonix Ec Tab) 40 mg PO DAILY [facility] Last Admin: 02/01/19 09:46 Dose: 40 mg Promethazine HCl (Phenergan Syrup) 6.25 mg PO Q6 PRN PRN Reason: Cough Last Admin: 01/12/19 17:49 Dose: 6.25 mg Saliva Substitute (First Magic Mouthwash) 5 ml PO Q6 [facility] Last Admin: 02/01/19 12:45 Dose: Not Given Scopolamine (Transderm-Scop) 1 patch TD Q3D [facility] Last Admin: 02/01/19 10:57 Dose: 1 patch Tamsulosin HCl (Flomax) 0.4 mg PO BID [facility] Last Admin: 02/01/19 09:45 Dose: 0.4 mg - Labs Labs: 02/01/19 06:08 02/01/19 06:08 PT 14.8 SECONDS (9.7-12.2) H 01/21/19 11:03 INR 1.4 01/21/19 11:03 APTT 28 SECONDS (21-34) 01/21/19 11:03 - Constitutional Appears: Cachectic, Chronically Ill - Head Exam Head Exam: ATRAUMATIC - Eye Exam Eye Exam: EOMI - ENT Exam ENT Exam: Mucous Membranes Dry - Respiratory Exam Respiratory Exam: Decreased Breath Sounds, NORMAL BREATHING PATTERN - Cardiovascular Exam Cardiovascular Exam: +S1, +S2 - GI/Abdominal Exam GI & Abdominal Exam: Normal Bowel Sounds - Neurological Exam Neurological Exam: Alert, Awake - Psychiatric Exam Psychiatric exam: Normal Affect, Normal Mood - Skin Skin Exam: Dry, Intact, Normal Color Additional comments: 2 chest tube with pigtails on right superior back Assessment and Plan - Assessment and Plan (Free Text) Assessment: 78 year old male with history of COPD, 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 Plan: Right sided hydropneumothorax [employer] Developing Machine Operator Dr. Thurston consulted ID Dr. Ferrari consulted Management: - PIGTAIL IN PLACE 01/21/19, to suction - One way valve chest tube in place 01/28/19 Zyvox 600mg po BID, PO abx per ID Duonebs q6 Lasix 20mg PO daily Robitussin 200mg q4h Phenergan 6.25mg po q6 prn Scopolamine patch Imaging: - CXR(01/31): Mild increase in size of right pneumothorax Pancytopenia 2/[address] Bobby consulted, no further chemotherapy tx as pt is not responding Hgb improve s/p transfusion Zofran 4mg Q6 PRN Transfuse PRN PICC inserted (01/26) Anasarca improving lasix 20mg po qd albumin 1.2 today, repletion not indicated 2/2 poor status and worsening hydrop neumothorax morphine 1mg q6 prn pain in LE 2/2 edema Hypotension 2/2 hypoalbuminemia Continue to monitor lisinopril 5mg po qd, holding parameters Abdominal Pain, resolved Abd US: low-attenuation lesion L lobe liver. Liver exhibits increased echote xture secondary to fatty infiltration or hepatocellular disease. splenomegaly. several tiny echogenic foci adherent to gallbladder wall possibly representing polyps. slight increased renal echotexture. Colace PRN for Constipation Zofran prn History of BPH Flomax 0.4mg PO BID Bladder scans PRN Straight cath prn History of HTN Lisinopril 5mg PO daily Holding parameters Poor Nutrition encourage PO intake Low Microbial Diet Ensure Enlive TID Megace 400mg PO BID Prophylaxis: Protonix 40mg po qd SCDs contraindicated 2/2 edema; AC contraindicated 2/2 pancytopenia PT/OT DNR/DNI Dispo: Awaiting family decision regarding hospice, they remain undecided despite patient's wishes to leave Discussed with Dr. Lindsay Garcia PGY-1
--- NOTE | 2019-02-01 14:12 | CP.PCM.PN ---
Subjective - Date & Time of Evaluation Date of Evaluation: 02/01/19 Time of Evaluation: 11:00 - Subjective Subjective: Patient seen and examined No shortness of breath noted Heimlich valve in place Pigtail catheter draining serosanguineous fluid Chest x-ray noted Afebrile Objective - Vital Signs/Intake and Output Vital Signs (last 24 hours): Temp Pulse Resp BP Pulse Ox 97.9 F 75 20 127/67 100 02/01/19 07:35 02/01/19 07:35 02/01/19 07:35 02/01/19 09:45 02/01/19 07:35 Intake and Output: 02/01/19 02/01/19 06:59 18:59 Intake Total 100 Output Total 40 Balance 60 - Medications Medications: Current Medications Acetaminophen (Tylenol 325mg Tab) 650 mg PO Q6 PRN PRN Reason: Pain, moderate (4-7) Last Admin: 01/11/19 19:32 Dose: 650 mg Albuterol/Ipratropium (Duoneb 3 Mg/0.5 Mg (3 Ml) Ud) 3 ml INH RQ6 [facility] Last Admin: 02/01/19 08:25 Dose: 3 ml Diphenhydramine HCl (Benadryl) 25 mg PO ONCE PRN PRN Reason: pre med Last Admin: 01/03/19 14:39 Dose: 25 mg Docusate Sodium (Colace) 100 mg PO BID PRN PRN Reason: Constipation Last Admin: 01/25/19 14:34 Dose: 100 mg Furosemide (Lasix) 20 mg PO DAILY [facility] Last Admin: 02/01/19 09:45 Dose: 20 mg Guaifenesin (Robitussin) 200 mg PO Q4H [facility] Last Admin: 02/01/19 12:45 Dose: Not Given Cefazolin Sodium (Ancef) 1 gm in 50 mls @ 100 mls/hr IVPB Q8H [facility]; Protocol Last Admin: 02/01/19 08:55 Dose: 100 mls/hr Lisinopril (Zestril) 5 mg PO DAILY [facility] Last Admin: 02/01/19 09:46 Dose: 5 mg Megestrol Acetate (Megace) 400 mg PO BID [facility] Last Admin: 02/01/19 09:44 Dose: 400 mg Morphine Sulfate (Morphine) 1 mg IVP Q4 PRN PRN Reason: Pain, moderate (4-7) Ondansetron HCl (Zofran Odt) 4 mg PO Q6H PRN PRN Reason: Nausea/Vomiting Pantoprazole Sodium (Protonix Ec Tab) 40 mg PO DAILY [facility] Last Admin: 02/01/19 09:46 Dose: 40 mg Promethazine HCl (Phenergan Syrup) 6.25 mg PO Q6 PRN PRN Reason: Cough Last Admin: 01/12/19 17:49 Dose: 6.25 mg Saliva Substitute (First Magic Mouthwash) 5 ml PO Q6 [facility] Last Admin: 02/01/19 12:45 Dose: Not Given Scopolamine (Transderm-Scop) 1 patch TD Q3D [facility] Last Admin: 02/01/19 10:57 Dose: 1 patch Tamsulosin HCl (Flomax) 0.4 mg PO BID [facility] Last Admin: 02/01/19 09:45 Dose: 0.4 mg - Labs Labs: 02/01/19 06:08 02/01/19 06:08 PT 14.8 SECONDS (9.7-12.2) H 01/21/19 11:03 INR 1.4 01/21/19 11:03 APTT 28 SECONDS (21-34) 01/21/19 11:03 - Head Exam Head Exam: ATRAUMATIC, NORMOCEPHALIC - ENT Exam ENT Exam: Mucous Membranes Moist - Neck Exam Neck Exam: Normal Inspection - Respiratory Exam Respiratory Exam: Decreased Breath Sounds - Cardiovascular Exam Cardiovascular Exam: REGULAR RHYTHM - GI/Abdominal Exam GI & Abdominal Exam: Soft, Normal Bowel Sounds - Extremities Exam Extremities Exam: Normal Inspection Assessment and Plan (1) Pneumothorax Assessment & Plan: Status post Heimlich valve insertion Chest x-ray with persistent right pneumothorax secondary to trapped lung Status: Acute (2) Pneumonia Status: Acute (3) Pancytopenia Status: Acute (4) Pleural effusion, left Status: Acute (5) Pneumothorax Status: Acute
--- NOTE | 2019-02-01 20:15 | CP.PCM.PN ---
Subjective - Date & Time of Evaluation Date of Evaluation: 02/01/19 Time of Evaluation: 18:00 - Subjective Subjective: Weak, daughters at bedside. Objective - Vital Signs/Intake and Output Vital Signs (last 24 hours): Temp Pulse Resp BP Pulse Ox 98.1 F 81 20 107/71 100 02/01/19 17:08 02/01/19 17:08 02/01/19 17:08 02/01/19 17:08 02/01/19 07:35 Intake and Output: 02/01/19 02/02/19 18:59 06:59 Intake Total 150 Output Total 10 Balance 140 - Medications Medications: Current Medications Acetaminophen (Tylenol 325mg Tab) 650 mg PO Q6 PRN PRN Reason: Pain, moderate (4-7) Last Admin: 01/11/19 19:32 Dose: 650 mg Albuterol/Ipratropium (Duoneb 3 Mg/0.5 Mg (3 Ml) Ud) 3 ml INH RQ6 [facility] Last Admin: 02/01/19 13:20 Dose: 3 ml Diphenhydramine HCl (Benadryl) 25 mg PO ONCE PRN PRN Reason: pre med Last Admin: 01/03/19 14:39 Dose: 25 mg Docusate Sodium (Colace) 100 mg PO BID PRN PRN Reason: Constipation Last Admin: 01/25/19 14:34 Dose: 100 mg Furosemide (Lasix) 20 mg PO DAILY [facility] Last Admin: 02/01/19 09:45 Dose: 20 mg Guaifenesin (Robitussin) 200 mg PO Q4H [facility] Last Admin: 02/01/19 17:56 Dose: Not Given Cefazolin Sodium (Ancef) 1 gm in 50 mls @ 100 mls/hr IVPB Q8H [facility]; Protocol Last Admin: 02/01/19 17:52 Dose: 100 mls/hr Lisinopril (Zestril) 5 mg PO DAILY [facility] Last Admin: 02/01/19 09:46 Dose: 5 mg Megestrol Acetate (Megace) 400 mg PO BID [facility] Last Admin: 02/01/19 20:05 Dose: 400 mg Morphine Sulfate (Morphine) 1 mg IVP Q4 PRN PRN Reason: Pain, moderate (4-7) Ondansetron HCl (Zofran Odt) 4 mg PO Q6H PRN PRN Reason: Nausea/Vomiting Pantoprazole Sodium (Protonix Ec Tab) 40 mg PO DAILY [facility] Last Admin: 02/01/19 09:46 Dose: 40 mg Promethazine HCl (Phenergan Syrup) 6.25 mg PO Q6 PRN PRN Reason: Cough Last Admin: 01/12/19 17:49 Dose: 6.25 mg Saliva Substitute (First Magic Mouthwash) 5 ml PO Q6 [facility] Last Admin: 02/01/19 18:05 Dose: Not Given Scopolamine (Transderm-Scop) 1 patch TD Q3D [facility] Last Admin: 02/01/19 10:57 Dose: 1 patch Tamsulosin HCl (Flomax) 0.4 mg PO BID [facility] Last Admin: 02/01/19 20:05 Dose: 0.4 mg - Labs Labs: 02/01/19 06:08 02/01/19 06:08 PT 14.8 SECONDS (9.7-12.2) H 01/21/19 11:03 INR 1.4 01/21/19 11:03 APTT 28 SECONDS (21-34) 01/21/19 11:03 - Constitutional Appears: Cachectic - Head Exam Head Exam: ATRAUMATIC - Eye Exam Eye Exam: Normal appearance - ENT Exam ENT Exam: Mucous Membranes Dry - Respiratory Exam Respiratory Exam: Decreased Breath Sounds - Cardiovascular Exam Cardiovascular Exam: +S1, +S2 - GI/Abdominal Exam GI & Abdominal Exam: Normal Bowel Sounds - Extremities Exam Extremities Exam: Pedal Edema Assessment and Plan (1) Pancytopenia Assessment & Plan: secondary to AML transfusion support PRN Status: Chronic (2) AML (acute myeloblastic leukemia) Assessment & Plan: supportive care patient and family undecided on hospice Status: Chronic
[2019-02-02] MEDS: Mag&Al/Simet/Diphen/Lido 237 ML KIT PO SCH ×4 (00:15→18:22)
[2019-02-02] MEDS: guaiFENesin 200 mg/10 ml Syrup UD PO SCH ×2 (00:16→17:26)
[2019-02-02] MEDS: ceFAZolin 1 gm FROZEN Premix 1 GM/50 ML ML IVPB SCH ×3 (01:05→17:26)
[2019-02-02] MEDS: Albuterol-Ipratrop 3 mg / 0.5 (3 ml) UD INH SCH ×4 (03:12→19:12)
--- NOTE | 2019-02-02 06:56 | CP.PCM.PN ---
Subjective - Date & Time of Evaluation Date of Evaluation: 02/02/19 Time of Evaluation: 07:50 - Subjective Subjective: Patient examined at bedside with in room. No acute overnight events. Patient reports increased energy today. Reports improvement in breathing and lower extremity swelling and pain. Patient reports good appetite and has been eating and drinking well. Denies chest pain, urinary retention, constipation. Patient requests newspaper Objective - Vital Signs/Intake and Output Vital Signs (last 24 hours): Temp Pulse Resp BP Pulse Ox 98.1 F 76 20 134/67 99 02/02/19 00:00 02/02/19 00:00 02/02/19 00:00 02/02/19 00:00 02/02/19 00:00 Intake and Output: 02/01/19 02/02/19 18:59 06:59 Intake Total 150 250 Output Total 10 160 Balance 140 90 - Medications Medications: Current Medications Acetaminophen (Tylenol 325mg Tab) 650 mg PO Q6 PRN PRN Reason: Pain, moderate (4-7) Last Admin: 01/11/19 19:32 Dose: 650 mg Albuterol/Ipratropium (Duoneb 3 Mg/0.5 Mg (3 Ml) Ud) 3 ml INH RQ6 [facility] Last Admin: 02/02/19 03:12 Dose: Not Given Diphenhydramine HCl (Benadryl) 25 mg PO ONCE PRN PRN Reason: pre med Last Admin: 01/03/19 14:39 Dose: 25 mg Docusate Sodium (Colace) 100 mg PO BID PRN PRN Reason: Constipation Last Admin: 01/25/19 14:34 Dose: 100 mg Furosemide (Lasix) 20 mg PO DAILY [facility] Last Admin: 02/01/19 09:45 Dose: 20 mg Guaifenesin (Robitussin) 200 mg PO Q4H [facility] Last Admin: 02/02/19 00:16 Dose: Not Given Cefazolin Sodium (Ancef) 1 gm in 50 mls @ 100 mls/hr IVPB Q8H [facility]; Protocol Last Admin: 02/02/19 01:05 Dose: 100 mls/hr Lisinopril (Zestril) 5 mg PO DAILY [facility] Last Admin: 02/01/19 09:46 Dose: 5 mg Megestrol Acetate (Megace) 400 mg PO BID [facility] Last Admin: 02/01/19 20:05 Dose: 400 mg Morphine Sulfate (Morphine) 1 mg IVP Q4 PRN PRN Reason: Pain, moderate (4-7) Ondansetron HCl (Zofran Odt) 4 mg PO Q6H PRN PRN Reason: Nausea/Vomiting Pantoprazole Sodium (Protonix Ec Tab) 40 mg PO DAILY [facility] Last Admin: 02/01/19 09:46 Dose: 40 mg Promethazine HCl (Phenergan Syrup) 6.25 mg PO Q6 PRN PRN Reason: Cough Last Admin: 01/12/19 17:49 Dose: 6.25 mg Saliva Substitute (First Magic Mouthwash) 5 ml PO Q6 [facility] Last Admin: 02/02/19 00:15 Dose: Not Given Scopolamine (Transderm-Scop) 1 patch TD Q3D [facility] Last Admin: 02/01/19 10:57 Dose: 1 patch Tamsulosin HCl (Flomax) 0.4 mg PO BID [facility] Last Admin: 02/01/19 20:05 Dose: 0.4 mg - Labs Labs: 02/01/19 06:08 02/01/19 06:08 PT 14.8 SECONDS (9.7-12.2) H 01/21/19 11:03 INR 1.4 01/21/19 11:03 APTT 28 SECONDS (21-34) 01/21/19 11:03 - Constitutional Appears: Non-toxic, No Acute Distress, Cachectic, Chronically Ill - Head Exam Head Exam: ATRAUMATIC, NORMAL INSPECTION, NORMOCEPHALIC - Eye Exam Eye Exam: EOMI, Normal appearance - ENT Exam ENT Exam: Mucous Membranes Moist, Normal Exam - Neck Exam Additional comments: no tracheal deviation - Respiratory Exam Respiratory Exam: Accessory Muscle Use, Decreased Breath Sounds, Rales, NORMAL BREATHING PATTERN. absent: Respiratory Distress Additional comments: right anterior heimlich right axillary pigtail ss drainage - Cardiovascular Exam Cardiovascular Exam: REGULAR RHYTHM, +S1, +S2 - GI/Abdominal Exam GI & Abdominal Exam: Soft, Normal Bowel Sounds. 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 Plan: Right sided hydropneumothorax Buttonhole Maker Dr. Thurston consulted ID Dr. Ferrari consulted Management: - PIGTAIL IN PLACE 01/21/19, to suction - One way valve chest tube in place 01/28/19 Cefazolin 1g q8h for URI(01/28) Duonebs q6 Lasix 20mg PO daily Robitussin 200mg q4h Phenergan 6.25mg po q6 prn Scopolamine patch Imaging: - CXR(01/31): Mild increase in size of right pneumothorax Pancytopenia 2/[address] Bobby consulted, no further chemotherapy tx as pt is not responding hgb 9.8, plts 41, s/p 2U PRBC (01/30) Zofran 4mg Q6 PRN Transfuse PRN PICC inserted (01/26) COPD duonebs q6h Anasarca improving lasix 20mg po qd albumin 1.4 today, repletion not indicated 2/2 poor status and worsening hydropneumothorax morphine 1mg q6 prn pain in LE 2/2 edema Hypotension 2/2 hypoalbuminemia Continue to monitor lisinopril 5mg po qd, holding parameters Abdominal Pain, resolved Abd US: low-attenuation lesion L lobe liver. Liver exhibits increased echotexture secondary to fatty infiltration or hepatocellular disease. splenomegaly. several tiny echogenic foci adherent to gallbladder wall possibly representing polyps. slight increased renal echotexture. Colace PRN for Constipation Zofran prn History of BPH Flomax 0.4mg PO BID Bladder scans PRN Straight cath prn History of HTN Lisinopril 5mg PO daily Holding parameters Poor Nutrition encourage PO intake Low Microbial Diet Ensure Enlive TID Megace 400mg PO BID Prophylaxis: Protonix 40mg po qd SCDs contraindicated 2/2 edema; AC contraindicated 2/2 pancytopenia PT/OT DNR/DNI Dispo: Awaiting family decision regarding hospice, they remain undecided despite patient's wishes to leave Discussed with Dr. Lindsay Amato, PGY-1
[2019-02-02] MEDS: Megestrol Acetate 40 mg/ml Cup PO SCH ×2 (10:04→17:26)
[2019-02-02] MEDS: Pantoprazole 40 mg EC Tab PO SCH (10:06)
--- NOTE | 2019-02-02 15:05 | CP.PCM.DIS ---
Provider - Provider Date of Admission: 12/29/18 10:33 Attending physician: Andrzej Montoya Jr, MD Consults: 12/29/18 12:15 Physician Consult Routine Comment: Consulting Provider: Narendra Thurston Consulting Physician: Narendra Thurston Reason for Consult: pleural effusions, nodules Physician Consult Routine Comment: Consulting Provider: Kartik Bobby Consulting Physician: Kartik Bobby Reason for Consult: hx of AML, neutropenic, thrombocytopenic 12/29/18 12:23 Case Management Referral Routine Comment: Physician Instructions: Reason For Exam: Reason for Referral: Discharge Planning Nursing Referral for Palliative Care Routine Comment: Physician Instructions: Reason For Exam: recurrent hospitalization 12/30/18 09:10 Physician Consult Routine Comment: Consulting Provider: Ronald Ferrari Consulting Physician: Ronald Ferrari Reason for Consult: Infiltrates 01/21/19 11:58 Radiology Consult Routine Comment: Consulting Provider: Mark Garrison Consulting Physician: Mark Garrison Reason for Consult: pleurx catheter 01/25/19 06:22 Wound Care [Nursing Referral for Wound Care] Routine Comment: Physician Instructions: Reason For Exam: for eval of sacral redness 01/25/19 10:06 Palliative Care Consult Routine Comment: Consulting Provider: Cailin Rockwell Physician Instructions: Reason For Exam: AML with pancytopenia, poor prognosis Time Spent in preparation of Discharge (in minutes): 30 Diagnosis - Discharge Diagnosis (1) Pancytopenia Status: Chronic (2) Pneumothorax Status: Acute Priority: High Hospital Course - Lab Results Lab Results: Micro Results 01/01/19 21:53 Unknown - Lung Mycobacterial Culture - Preliminary 12/31/18 14:18 Sputum Legionella Culture - Preliminary 12/31/18 14:18 Sputum Legionella Culture - Final 12/31/18 14:18 Sputum Legionella Culture - Final TEST NOT PERFORMED 12/31/18 14:18 Sputum Legionella Culture - Final TEST NOT PERFORMED 12/31/18 14:18 Sputum Legionella Culture - Final TEST NOT PERFORMED 12/31/18 14:18 Sputum Legionella Culture - Final TEST NOT PERFORMED 12/31/18 14:18 Sputum Legionella Culture - Final TEST NOT PERFORMED 12/31/18 14:18 Sputum Legionella Culture - Final TEST NOT PERFORMED 12/31/18 14:18 Sputum Legionella Culture - Final TEST NOT PERFORMED 01/04/19 13:24 Blood Blood Culture - Final NO GROWTH AFTER 5 DAYS 01/04/19 13:24 Blood Gram Stain - Final TEST NOT PERFORMED 01/04/19 11:26 Blood Blood Culture - Final NO GROWTH AFTER 5 DAYS 01/04/19 11:26 Blood Gram Stain - Final TEST NOT PERFORMED 01/04/19 13:24 Urine,Clean Catch Urine Culture - Final No Growth (<1,000 CFU/ML) 12/29/18 07:13 Blood Blood Culture - Final NO GROWTH AFTER 5 DAYS 12/29/18 07:13 Blood Gram Stain - Final TEST NOT PERFORMED 12/29/18 07:13 Blood Blood Culture - Final NO GROWTH AFTER 5 DAYS 12/29/18 07:13 Blood Gram Stain - Final TEST NOT PERFORMED 12/29/18 07:35 Sputum Gram Stain - Final 12/29/18 07:35 Sputum Sputum Culture - Final Staphylococcus Aureus Most Recent Lab Values WBC 0.4 K/uL (4.8-10.8) L* 02/01/19 06:08 RBC 3.28 Mil/uL (4.40-5.90) L 02/01/19 06:08 Hgb 9.8 g/dL (12.0-18.0) L 02/01/19 06:08 Hct 29.2 % (35.0-51.0) L 02/01/19 06:08 MCV 89.0 fL (80.0-94.0) 02/01/19 06:08 MCH 29.9 pg (27.0-31.0) 02/01/19 06:08 MCHC 33.6 g/dL (33.0-37.0) 02/01/19 06:08 RDW 14.0 % (11.5-14.5) 02/01/19 06:08 Plt Count 41 K/uL (130-400) L 02/01/19 06:08 MPV 8.4 fL (7.2-11.7) 02/01/19 06:08 Neut % (Auto) 24.1 % (50.0-75.0) L 02/01/19 06:08 Lymph % (Auto) 67.6 % (20.0-40.0) H 02/01/19 06:08 Bradley % (Auto) 7.9 % (0.0-10.0) 02/01/19 06:08 Eos % (Auto) 0.4 % (0.0-4.0) 02/01/19 06:08 Baso % (Auto) 0.0 % (0.0-2.0) 02/01/19 06:08 Neut # (Auto) 0.1 K/uL (1.8-7.0) L 02/01/19 06:08 Lymph # (Auto) 0.2 K/uL (1.0-4.3) L 02/01/19 06:08 Bradley # (Auto) 0.0 K/uL (0.0-0.8) 02/01/19 06:08 Eos # (Auto) 0.0 K/uL (0.0-0.7) 02/01/19 06:08 Baso # (Auto) 0.0 K/uL (0.0-0.2) 02/01/19 06:08 Total Counted Cancelled 12/29/18 06:30 Neutrophils % (Manual) TEST NOT PERFORMED 01/01/19 04:08 Band Neutrophils % Cancelled 12/29/18 06:30 Lymphocytes % (Manual) TEST NOT PERFORMED 01/01/19 04:08 Reactive Lymphs % Cancelled 12/29/18 06:30 Monocytes % (Manual) TEST NOT PERFORMED 01/01/19 04:08 Eosinophils % (Manual) Cancelled 12/29/18 06:30 Basophils % (Manual) Cancelled 12/29/18 06:30 Metamyelocytes % Cancelled 12/29/18 06:30 Myelocytes % Cancelled 12/29/18 06:30 Promyelocytes % Cancelled 12/29/18 06:30 Blast Cells % Cancelled 12/29/18 06:30 Plasma Cell % (Manual) Cancelled 12/29/18 06:30 Nucleated RBC % Cancelled 12/29/18 06:30 Differential Comment 01/21/19 11:03 Hypersegmented Polys Cancelled 12/29/18 06:30 Smudge Cells Cancelled 12/29/18 06:30 Toxic Granulation Cancelled 12/29/18 06:30 Dohle Bodies Cancelled 12/29/18 06:30 Nazanin Rods Cancelled 12/29/18 06:30 Platelet Estimate Markedly decreased (NORMAL) L 01/01/19 04:08 Plt Clumps, EDTA Cancelled 12/29/18 06:30 Large Platelets Cancelled 12/29/18 06:30 Giant Platelets Cancelled 12/29/18 06:30 RBC Morphology Cancelled 12/29/18 06:30 Polychromasia Cancelled 12/29/18 06:30 Hypochromasia (manual) Cancelled 12/29/18 06:30 Poikilocytosis (manual Cancelled 12/29/18 06:30 Basophilic Stippling Cancelled 12/29/18 06:30 Anisocytosis (manual) Cancelled 12/29/18 06:30 Microcytosis (manual) Cancelled 12/29/18 06:30 Macrocytosis (manual) Cancelled 12/29/18 06:30 Spherocytes Cancelled 12/29/18 06:30 Sickle Cells Cancelled 12/29/18 06:30 Target Cells Cancelled 12/29/18 06:30 Tear Drop Cells Cancelled 12/29/18 06:30 Ovalocytes Cancelled 12/29/18 06:30 Stomatocytes Cancelled 12/29/18 06:30 Helmet Cells Cancelled 12/29/18 06:30 Gunderson-Brownton Bodies Cancelled 12/29/18 06:30 Terry Cells Cancelled 12/29/18 06:30 Acanthocytes (Spur) Cancelled 12/29/18 06:30 Rouleaux Cancelled 12/29/18 06:30 Schistocytes Cancelled 12/29/18 06:30 PT 14.8 SECONDS (9.7-12.2) H 01/21/19 11:03 INR 1.4 01/21/19 11:03 APTT 28 SECONDS (21-34) 01/21/19 11:03 D-Dimer, Quantitative 2156 ng/mlDDU (0-243) H 12/29/18 06:30 Sodium 130 mmol/L (132-148) L 02/01/19 06:08 Potassium 4.2 mmol/L (3.6-5.2) 02/01/19 06:08 Chloride 98 mmol/L (98-107) 02/01/19 06:08 Carbon Dioxide 35 mmol/L (22-30) H 02/01/19 06:08 Anion Gap 2 (10-20) L 02/01/19 06:08 BUN 28 mg/dL (9-20) H 02/01/19 06:08 Creatinine 0.5 mg/dL (0.8-1.5) L 02/01/19 06:08 Est GFR ( Amer) > 60 02/01/19 06:08 Est GFR (Non-Af Amer) > 60 02/01/19 06:08 POC Glucose (mg/dL) 192 mg/dL (65-110) H 01/20/19 10:49 Random Glucose 92 mg/dL (75-110) 02/01/19 06:08 Calcium 7.7 mg/dl (8.6-10.4) L 02/01/19 06:08 Phosphorus 3.4 mg/dL (2.5-4.5) 02/01/19 06:08 Magnesium 1.8 mg/dL (1.6-2.3) 02/01/19 06:08 Total Bilirubin 0.8 mg/dL (0.2-1.3) 02/01/19 06:08 AST 7 U/L (17-59) L 02/01/19 06:08 ALT 19 U/L (21-72) L D 02/01/19 06:08 Alkaline Phosphatase 44 U/L (38-126) 02/01/19 06:08 Lactate Dehydrogenase 242 U/L (313-618) L 12/31/18 08:02 Troponin I 0.0170 ng/mL (0.00-0.120) 01/01/19 12:38 NT-Pro-B Natriuret Pep 8170 pg/mL (0-900) H 12/29/18 06:30 Total Protein 3.4 g/dL (6.3-8.3) L 02/01/19 06:08 Albumin 1.4 g/dL (3.5-5.0) L 02/01/19 06:08 Globulin 2.0 gm/dL (2.2-3.9) L 02/01/19 06:08 Albumin/Globulin Ratio 0.7 (1.0-2.1) L 02/01/19 06:08 Vitamin B12 852 pg/mL (239-931) 01/06/19 07:50 Procalcitonin 5.99 NG/ML (0.19-0.49) H 12/31/18 08:02 Urine Color Radha (YELLOW) 01/04/19 13:24 Urine Clarity Hazy (Clear) 01/04/19 13:24 Urine pH 5.0 (5.0-8.0) 01/04/19 13:24 Ur Specific [place] 1.019 (1.003-1.030) 01/04/19 13:24 Urine Protein 1+ mg/dL (NEGATIVE) H 01/04/19 13:24 Urine Glucose (UA) Normal mg/dL (Normal) 01/04/19 13:24 Urine Ketones Negative mg/dL (NEGATIVE) 01/04/19 13:24 Urine Blood 1+ (NEGATIVE) H 01/04/19 13:24 Urine Nitrate Negative (NEGATIVE) 01/04/19 13:24 Urine Bilirubin Negative (NEGATIVE) 01/04/19 13:24 Urine Urobilinogen Normal mg/dL (0.2-1.0) 01/04/19 13:24 Ur Leukocyte Esterase Neg Michael/uL (Negative) 01/04/19 13:24 Urine WBC (Auto) 3 /hpf (0-5) 01/04/19 13:24 Urine RBC (Auto) 5 /hpf (0-3) H 01/04/19 13:24 Urine Bacteria Rare (<OCC) 01/04/19 13:24 Vancomycin Trough 6.7 ug/mL (5.0-10.0) 01/18/19 11:36 Random Vancomycin 17.1 ug/mL 01/01/19 04:08 Influenza Typ A,B (EIA) Negative for flu a/b (NEGATIVE) 12/29/18 07:35 Legionella Source TNP 12/31/18 14:18 Legionella Culture Cancelled 12/31/18 14:18 Legionella Culture Cancelled 12/31/18 14:18 Legionella Culture Cancelled 12/31/18 14:18 Legionella Culture Cancelled 12/31/18 14:18 Legionella Culture Cancelled 12/31/18 14:18 L. pneumophila DFA TNP 12/31/18 14:18 Ur L.pneumophila Ag Negative (NEGATIVE) 12/30/18 22:24 Mycoplasma pneumon IgM Negative (NEGATIVE) 12/31/18 08:02 S. pneumoniae Antigen Negative (NEGATIVE) 12/31/18 Unknown TB Test (QFT) Nil 0.03 IU/mL 01/01/19 12:38 TB Test Mitogen - Nil 2.38 IU/mL 01/01/19 12:38 TB Test Antigen - Nil 0.00 IU/mL 01/01/19 12:38 TB Test TB - Nil 0.00 IU/mL 01/01/19 12:38 TB Test (QFT) Negative (Negative) 01/01/19 12:38 Beta-(1,3)-D-Glucan <31 pg/mL (<60) 12/31/18 08:02 B-(1,3)-D-Glucan Intrp Negative 12/31/18 08:02 Blood Type B POSITIVE 01/30/19 12:26 Antibody Screen Negative 01/30/19 12:26 Crossmatch See Detail 01/24/19 14:18 - Hospital Course Hospital Course: Patient presented to ED for evaluation of worsening SOB. Labs revealed patient was pancytopenic; consistent with findings from previous admissions 2/2 AML. Vitals revealed O2 saturation of 93% and low grade temp of 100.1. WBC 0.2, Hgb 8.8, platelets of 26. D-dimer elevated at 2156, CTA performed was negative for evidence of PE. Patient treated with antipyretics, and transfused blood products accordingly. Dr. Thurston, pulmonology and Dr. Ferrari, ID, and Dr. Bobby, Heme/Onc consulted. Patient started on IV abx. Patient given breathing treatments as needed for SOB Patient stay complicated by hydropneumothorax. Pigtail catheter inserted, and fluid drained to suction. Heimlich valve subsequently inserted, as patient's pneumothorax failed to improve with pigtail alone, as evidenced on multiple repeat chest xrays. Palliative care consulted, plans for hospice arranged. Family undecided, refusing home hospice and several inpatient hospice facilities. Patient discharged home in stable condition with heimlich in place. Patient has home hospital bed, [place], [place], portable O2 tank, commode given on prior admission, with home nursing care in place. Patient instructed to follow up with PMD, Pulm, Heme/onc upon discharge. Patient and family aware of pt's poor prognosis. 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 Patient's daughter reportedly states she checked his O2 sat and found that it was in the low 80s. Patient received chemo last Thursday, and received 2 units PRBCs and 2 units platelets earlier this week prior to admission here. Daughter states patient has had decreased appetite since starting chemo. He is able to get to the bathroom with assistance. Patient denies headache, dizzines, chest pain, palpitations, shortnes of breath, nausea, vomiting, diarrhea, constipation, urinary symptoms, leg pain." For further details, refer to EMR Discharge Exam - Additional Findings Additional findings: - Constitutional Appears: Non-toxic, No Acute Distress, Cachectic, Chronically Ill - Head Exam Head Exam: ATRAUMATIC, NORMAL INSPECTION, NORMOCEPHALIC - Eye Exam Eye Exam: EOMI, Normal appearance - ENT Exam ENT Exam: Mucous Membranes Moist, Normal Exam - Neck Exam Additional comments: no tracheal deviation - Respiratory Exam Respiratory Exam: Accessory Muscle Use, Decreased Breath Sounds, Rales, NORMAL BREATHING PATTERN. absent: Respiratory Distress Additional comments: right anterior heimlich ss drainage - Cardiovascular Exam Cardiovascular Exam: REGULAR RHYTHM, +S1, +S2 - GI/Abdominal Exam GI & Abdominal Exam: Soft, Normal Bowel Sounds. absent: Distended, Tenderness - Exam Exam: absent: Bladder Distension - Extremities Exam Extremities Exam: Pedal Edema (2+), Tenderness (minimal) - Neurological Exam Neurological Exam: Alert, Awake, Oriented x3 - Psychiatric Exam Psychiatric exam: Normal Affect, Normal Mood - Skin Skin Exam: Dry, Pallor, Warm Discharge Plan - Discharge Medications Prescriptions: Cephalexin [cephalexin] 500 mg PO QID #20 cap - Follow Up Plan Condition: STABLE Disposition: HOME/ ROUTINE Instructions: Pneumonia, Adult (DC), Pneumothorax (Collapsed Lung) (DC), Pleural Effusion (DC) Additional Instructions: Patient stable for discharge home. Patient is to resume all home medications as previously prescribed with the exception of Lisinopril which should no longer be taken. Patient will be given a prescription for an antibiotic, Keflex, to be taken 4 times daily; for a total of 5 days. Patient instructed to take all antibiotics until completion. Patient will be discharged with heimlich chest tube in place Patient instructed to follow up with Dr. Bobby upon discharge to monitor for need of blood products/transfusions Patient instructed to follow up with PMD, Dr. Montoya upon discharge Patient instructed to follow up with psychosocial rehabilitation counselor, Dr. Thurston upon discharge Patient instructed to return to nearest ED with any worsening of symptoms Referrals: Narendra Thurston MD [Staff Provider] - Kartik Bobby MD [Staff Provider] -
--- NOTE | 2019-02-02 15:35 | CP.PCM.PN ---
Subjective - Date & Time of Evaluation Date of Evaluation: 02/02/19 Time of Evaluation: 12:00 - Subjective Subjective: Patient seen and examined No shortness of breath noted Heimlich valve in place Patient awake responsive Discontinue pigtail catheter Okay to discharge Objective - Vital Signs/Intake and Output Vital Signs (last 24 hours): Temp Pulse Resp BP Pulse Ox 98.7 F 68 20 110/69 96 02/02/19 07:00 02/02/19 07:00 02/02/19 07:00 02/02/19 10:04 02/02/19 07:00 Intake and Output: 02/02/19 02/02/19 06:59 18:59 Intake Total 420 250 Output Total 301 22 Balance 119 228 - Medications Medications: Current Medications Acetaminophen (Tylenol 325mg Tab) 650 mg PO Q6 PRN PRN Reason: Pain, moderate (4-7) Last Admin: 01/11/19 19:32 Dose: 650 mg Albuterol/Ipratropium (Duoneb 3 Mg/0.5 Mg (3 Ml) Ud) 3 ml INH RQ6 [facility] Last Admin: 02/02/19 13:10 Dose: 3 ml Diphenhydramine HCl (Benadryl) 25 mg PO ONCE PRN PRN Reason: pre med Last Admin: 01/03/19 14:39 Dose: 25 mg Docusate Sodium (Colace) 100 mg PO BID PRN PRN Reason: Constipation Last Admin: 01/25/19 14:34 Dose: 100 mg Furosemide (Lasix) 20 mg PO DAILY [facility] Last Admin: 02/02/19 10:04 Dose: 20 mg Guaifenesin (Robitussin) 200 mg PO Q4H [facility] Last Admin: 02/02/19 00:16 Dose: Not Given Cefazolin Sodium (Ancef) 1 gm in 50 mls @ 100 mls/hr IVPB Q8H [facility]; Protocol Last Admin: 02/02/19 10:06 Dose: 100 mls/hr Lisinopril (Zestril) 5 mg PO DAILY [facility] Last Admin: 02/02/19 10:06 Dose: 5 mg Megestrol Acetate (Megace) 400 mg PO BID [facility] Last Admin: 02/02/19 10:04 Dose: 400 mg Morphine Sulfate (Morphine) 1 mg IVP Q4 PRN PRN Reason: Pain, moderate (4-7) Ondansetron HCl (Zofran Odt) 4 mg PO Q6H PRN PRN Reason: Nausea/Vomiting Pantoprazole Sodium (Protonix Ec Tab) 40 mg PO DAILY [facility] Last Admin: 02/02/19 10:06 Dose: 40 mg Promethazine HCl (Phenergan Syrup) 6.25 mg PO Q6 PRN PRN Reason: Cough Last Admin: 01/12/19 17:49 Dose: 6.25 mg Saliva Substitute (First Magic Mouthwash) 5 ml PO Q6 [facility] Last Admin: 02/02/19 12:47 Dose: 5 ml Scopolamine (Transderm-Scop) 1 patch TD Q3D [facility] Last Admin: 02/01/19 10:57 Dose: 1 patch Tamsulosin HCl (Flomax) 0.4 mg PO BID [facility] Last Admin: 02/02/19 10:05 Dose: 0.4 mg - Labs Labs: 02/01/19 06:08 02/01/19 06:08 PT 14.8 SECONDS (9.7-12.2) H 01/21/19 11:03 INR 1.4 01/21/19 11:03 APTT 28 SECONDS (21-34) 01/21/19 11:03 Assessment and Plan (1) Pneumothorax Status: Acute (2) Pneumonia Status: Acute (3) Pancytopenia Status: Chronic (4) Pleural effusion, left Status: Acute (5) Pneumothorax Status: Acute
[2019-02-02 16:53] VITALS: BP 104/56; PULSE 84; TEMP 98.1; O2SAT 99
--- NOTE | 2019-02-02 22:49 | CP.PCM.PN ---
Subjective - Date & Time of Evaluation Date of Evaluation: 02/02/19 Time of Evaluation: 18:00 - Subjective Subjective: No complaints, for D/C. Objective - Vital Signs/Intake and Output Vital Signs (last 24 hours): Temp Pulse Resp BP Pulse Ox 98.1 F 84 20 104/56 L 99 02/02/19 16:52 02/02/19 16:52 02/02/19 16:52 02/02/19 16:52 02/02/19 16:52 Intake and Output: 02/02/19 02/03/19 18:59 06:59 Intake Total 250 Output Total 22 Balance 228 - Labs Labs: 02/01/19 06:08 02/01/19 06:08 PT 14.8 SECONDS (9.7-12.2) H 01/21/19 11:03 INR 1.4 01/21/19 11:03 APTT 28 SECONDS (21-34) 01/21/19 11:03 - Constitutional Appears: Cachectic - Head Exam Head Exam: ATRAUMATIC - Eye Exam Eye Exam: Normal appearance - ENT Exam ENT Exam: Mucous Membranes Dry - Respiratory Exam Respiratory Exam: Decreased Breath Sounds - Cardiovascular Exam Cardiovascular Exam: +S1, +S2 - GI/Abdominal Exam GI & Abdominal Exam: Normal Bowel Sounds Assessment and Plan (1) 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
== END 2019-02-02 20:50 | disposition home or self-care (01) | DRG 186 ==
LOC: C.ER 05:48 → C.3T 10:33
PROVIDERS: ADMIT Internal Medicine; ATTEND Internal Medicine
PROC: 6A551Z2 Pheresis of Platelets, Multiple (ICD-10-PCS; 2018-12-30)
PROC: 30233N1 Transfusion of Nonautologous Red Blood Cells into Peripheral Vein, Percutaneous Approach (ICD-10-PCS; 2018-12-30)
PROC: 0W9930Z Drainage of Right Pleural Cavity with Drainage Device, Percutaneous Approach (ICD-10-PCS; principal; 2019-01-21)
PROC: BB4BZZZ Ultrasonography of Pleura (ICD-10-PCS; 2019-01-21)
PROC: 0W9930Z Drainage of Right Pleural Cavity with Drainage Device, Percutaneous Approach (ICD-10-PCS; 2019-01-28)
DX: J94.8 Other specified pleural conditions (principal); J18.9 Pneumonia, unspecified organism; C92.00 Acute myeloblastic leukemia, not having achieved remission; D61.818 Other pancytopenia; J44.0 Chronic obstructive pulmonary disease with (acute) lower respiratory infection; J90 Pleural effusion, not elsewhere classified; I11.9 Hypertensive heart disease without heart failure; I51.7 Cardiomegaly; N40.1 Benign prostatic hyperplasia with lower urinary tract symptoms; R33.8 Other retention of urine; R09.02 Hypoxemia; R13.10 Dysphagia, unspecified; R50.81 Fever presenting with conditions classified elsewhere; T45.1X5A Adverse effect of antineoplastic and immunosuppressive drugs, initial encounter; Z66 Do not resuscitate; Z51.5 Encounter for palliative care; Z79.899 Other long term (current) drug therapy; Z74.01 Bed confinement status; Z87.01 Personal history of pneumonia (recurrent); Z87.891 Personal history of nicotine dependence

== ENCOUNTER 2019-02-15 14:34 | Inpatient (IN) | payer MEDICARE, MEDICAID ==
[2019-02-15 14:34] VITALS: BMI 15.4
[2019-02-15] MEDS ORDERED: Sodium Chloride 0.9% 1,000 ML IV ONE ×2 (14:50→18:00)
--- NOTE | 2019-02-15 15:06 | CP.PCM.HP ---
History of Present Illness - History of Present Illness History of Present Illness: H&P for Dr. Montoya 78 M w/ PMHx COPD, AML currently on chemo, BPH and HTN, recurrent pleural effusions presens to ED for tiredness. Patient states he was supposed to go for a blood transfusion today; however, felt extremetly tired today so came to the Ed. Patient denies recent illness and travel history. Patient has no further complaints. Denies headaches, vision changes, chest pain, SOB, abdominal pain, fevers, chills, nausea, vomiting. PMD: Dr. Montoya Onc: Dr. Bobby Pulm: Dr. 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 absent: Fever, Frequent Falls, Headache, Lethargy, Weight Loss - EENT Eyes: absent: Blurred Vision, Change in Vision Ears: absent: Decreased Hearing Nose/Mouth/Throat: absent: Nasal Congestion - Cardiovascular Cardiovascular: absent: Chest Pain, Chest Pain at Rest, Dyspnea - Respiratory Respiratory: absent: Cough, Dyspnea, Dyspnea on Exertion, Excessive Mucous Production - Gastrointestinal Gastrointestinal: absent: Abdominal Pain, Constipation, Dysphagia - Genitourinary Genitourinary: absent: Change in Urinary Stream, Difficulty Urinating - Musculoskeletal Musculoskeletal: absent: Abnormal Gait, Arthralgias - Integumentary Integumentary: absent: Alopecia - Neurological Neurological: absent: Dizziness, Headaches - Psychiatric Psychiatric: absent: Confusion, Hallucinations Past Patient History - Infectious Disease Hx of Infectious Diseases: None - Tetanus Immunizations Tetanus Immunization: Unknown - Past Medical History & Family History Past Medical History?: Yes - Past Social History Smoking Status: Former Smoker - CARDIAC Hx Hypertension: Yes Hx Peripheral Edema: Yes - PULMONARY Hx Chronic Obstructive Pulmonary Disease (COPD): Yes Hx Pneumonia: Yes - NEUROLOGICAL Hx Neurological Disorder: No - HEENT Hx HEENT Problems: Yes - RENAL Hx Chronic Kidney Disease: No - ENDOCRINE/METABOLIC Hx Endocrine Disorders: No - HEMATOLOGICAL/ONCOLOGICAL Hx Blood Disorders: Yes Hx Leukemia: Yes (Recieves Chemo last chemo tx was Thursday) - INTEGUMENTARY Hx Dermatological Problems: No - MUSCULOSKELETAL/RHEUMATOLOGICAL Hx Falls: No - GASTROINTESTINAL Hx Gastrointestinal Disorders: Yes Hx Constipation: Yes - GENITOURINARY/GYNECOLOGICAL Hx Genitourinary Disorders: Yes - PSYCHIATRIC Hx Psychophysiologic Disorder: No Hx Substance Use: No - SURGICAL HISTORY Hx Surgeries: Yes Other/Comment: chest tube. - ANESTHESIA Hx Anesthesia: No Meds Allergies/Adverse Reactions: Allergies Allergy/AdvReac Type Severity Reaction Status Date / Time No Known Allergies Allergy Verified 02/15/19 14:42 Physical Exam - Constitutional Appears: No Acute Distress - Head Exam Head Exam: ATRAUMATIC, NORMAL INSPECTION, NORMOCEPHALIC - Eye Exam Eye Exam: EOMI, Normal appearance Additional comments: pale sclera - ENT Exam ENT Exam: Mucous Membranes Moist - Respiratory Exam Respiratory Exam: Clear to Auscultation Bilateral, NORMAL BREATHING PATTERN. absent: Wheezes - Cardiovascular Exam Cardiovascular Exam: +S1, +S2. absent: Systolic Murmur Additional comments: R anterior chest tube in place - GI/Abdominal Exam GI & Abdominal Exam: Normal Bowel Sounds, Soft. absent: Tenderness - Extremities Exam Additional comments: ansarcharia - Back Exam Back exam: absent: CVA tenderness (L), CVA tenderness (R) - Neurological Exam Neurological exam: Alert, Oriented x3 - Psychiatric Exam Psychiatric exam: Normal Affect, Normal Mood - Skin Skin Exam: Dry, Normal Color, Warm Results - Vital Signs Recent Vital Signs: Last Vital Signs Temp 99.2 F 02/15/19 14:40 Pulse 97 H 02/15/19 14:40 Resp 20 02/15/19 14:40 BP 96/49 L 02/15/19 14:40 Pulse Ox 100 02/15/19 14:40 - Labs Result Diagrams: 02/15/19 18:27 02/15/19 18:27 Assessment & Plan - Assessment and Plan (Free Text) Assessment: 78 M w/ PMhx of AML, HTN, BPH presents to ED for fatigue, Hgb 5.1 on admission Plan: Pancytopenia 2/2 AML - hgb 5.1, WBC 0.3, platelts 77 - transfuse 2 X PRBC - lasix 40 in between transfusion - f/u Dr. Bobby recs - pervious admission WBC 0.2, hgb 9.8. platlets 40s Anasarca Hypoalbuminemia - albumin 1.4 - may need albumin - will consider post transfusion to concerns of fluid overload - lasix 20 mg daily History of BPH - c/w home medications flomax 0.4 mg BID History constipation - c/w home medications colace 100 mg PO BID History of GERD - c/w home medication protonix 40 mg PO daily PPx - DVT: VTE contrainducated due to low platelets - regular diet - F/u PT/OT recs
--- NOTE | 2019-02-15 15:42 | C.PDOC ---
History Of Present Illness 78 y/o male,w/PMhx of AML Leukemia and pleural effusions brought to ER by ambulance for evaluation of weakness. of patient states that patient was going to have his blood checked and possible blood transfusion however she noticed that he was weak. So, she decided to bring him to the ER. notes that he has history of transfusions for anemia. Patient is complaining of abdominal pain. Denies having fever,chills, nausea, vomiting, dysuria, and hematuria. Of note, states that patient has DNR. Time Seen by Provider: 02/15/19 14:44 Chief Complaint (Nursing): Abdominal Pain History Per: Patient History/Exam Limitations: no limitations Onset/Duration Of Symptoms: Days Current Symptoms Are (Timing): Still Present Severity: Moderate Past Medical History Reviewed: Historical Data, Nursing Documentation, Vital Signs Vital Signs: Last Vital Signs Temp 99.2 F 02/15/19 14:40 Pulse 88 02/15/19 15:15 Resp 16 02/15/19 15:15 BP 101/38 L 02/15/19 15:15 Pulse Ox 100 02/15/19 15:15 - Medical History PMH: Anemia, COPD, HTN, Peripheral Edema, Pneumonia, Pneumothorax Denies: Chronic Kidney Disease Other Surgeries: Hx of surgeries - [facility] Procedures ASSISTANCE WITH RESPIRATORY VENTILATION, >96 HRS, CPAP (11/29/18) DRAINAGE OF L PLEURAL CAV WITH DRAIN DEV, PERC APPROACH (11/29/18) DRAINAGE OF LEFT PLEURAL CAVITY, PERCUTANEOUS APPROACH (12/17/18) DRAINAGE OF R PLEURAL CAV WITH DRAIN DEV, PERC APPROACH (12/29/18) EXTRACTION OF ILIAC BONE MARROW, PERC APPROACH, DIAGN (09/28/18) PHERESIS OF PLATELETS, MULTIPLE (12/29/18) PHERESIS OF PLATELETS, SINGLE (12/17/18) TRANSFUSE NONAUT PLATELETS IN PERIPH VEIN, PERC (12/17/18) TRANSFUSE NONAUT RED BLOOD CELLS IN PERIPH VEIN, PERC (12/29/18) ULTRASONOGRAPHY OF PLEURA (12/29/18) Family History: States: No Known Family Hx - Social History Hx Alcohol Use: No Hx Substance Use: No - Immunization History Hx Tetanus Toxoid Vaccination: No Hx Influenza Vaccination: No Hx Pneumococcal Vaccination: No Review Of Systems Except As Marked, All Systems Reviewed And Found Negative. Constitutional: Negative for: Fever, Chills Gastrointestinal: Positive for: Abdominal Pain. Negative for: Nausea, Vomiting, Diarrhea Genitourinary: Negative for: Dysuria, Hematuria Physical Exam - Physical Exam Appears: Non-toxic, No Acute Distress Skin: Warm, Dry, Other (multiple bruises to body) Head: Atraumatic, Normacephalic Eye(s): bilateral: Normal Inspection Nose: Normal Oral Mucosa: Moist Neck: Supple Chest: Symmetrical, Other (pleur evac tube in right upper chest) Cardiovascular: Rhythm Regular Respiratory: Normal Breath Sounds, No Rales, No Rhonchi, No Wheezing Gastrointestinal/Abdominal: Soft, No Tenderness, Distention, No Guarding, No Rebound Extremity: Normal ROM, Other (edema of lower extremities) Neurological/Psych: Oriented x3, Normal Speech ED Course And Treatment ECG: Interpreted By Me ECG Rhythm: Sinus Rhythm, Nonspecific Changes ECG Interpretation: Normal Rate From EC O2 Sat by Pulse Oximetry: 100 (RA) Pulse Ox Interpretation: Normal Progress Note: Case discussed with who agrees to admit Reassessment Condition: Unchanged - Physician Consult Information Physician Contacted: Andrzej Montoya Jr. Outcome Of Conversation: admit Medical Decision Making Medical Decision Making: Plan: --Labs --UA --CXR --X-Ray-Abd. --IV Fluids Disposition Discussed With Dr.: Andrzej Montoya Jr. Doctor Will See Patient In The: Hospital - Disposition Disposition: HOSPITALIZED Disposition Time: 16:00 Condition: STABLE - POA Present On Arrival: None - Clinical Impression Clinical Impression: AML (acute myeloblastic leukemia), Pleural effusion, Abdominal pain - PA / PHLEBOTOMY SPECIALIST / Resident Statement MD/DO has reviewed & agrees with the documentation as recorded. - Scribe Statement The provider has reviewed the documentation as recorded by the Scribe [facility] Provider Attestation All medical record entries made by the Scribe were at my direction and personally dictated by me. I have reviewed the chart and agree that the record accurately reflects my personal performance of the history, physical exam, medical decision making, and the department course for this patient. I have also personally directed, reviewed, and agree with the discharge instructions and disposition. Decision To Admit - Pt Status Changed To: Hospital Disposition Of: Inpatient - Admit Certification Admit to Inpatient:: After my assessment, the patient will require hospitalization for at least two midnights. This is because of the severity of symptoms shown, intensity of services needed, and/or the medical risk in this patient being treated as an outpatient. - InPatient: Physician Admission Certification:: AML. Anemia - . Bed Request Type: Regular Admitting Physician: Andrzej Montoya Jr. Patient Diagnosis: AML (acute myeloblastic leukemia), Pleural effusion
--- NOTE | 2019-02-15 17:29 | RAD ---
Date of service: 02/15/2019 PROCEDURE: CHEST RADIOGRAPH, 1 VIEW HISTORY: SOB COMPARISON: 01/30/2019. FINDINGS: LUNGS: Consolidative changes affecting right upper lobe and left lower lobe. PLEURA: Re-expansion of the right lung. Chest tube remains partially uncoiled in the right pleural space. Additional pleural findings primarily a fusions and pleural thickening unchanged. CARDIOVASCULAR: Atherosclerotic calcifications identified primarily aortic arch. No radiographic findings to suggest acute or significant cardiovascular disease. OSSEOUS STRUCTURES: No significant abnormalities. VISUALIZED UPPER ABDOMEN: Normal. OTHER FINDINGS: None. IMPRESSION: Re-expansion of the right lung. No visible right pneumothorax.
--- NOTE | 2019-02-15 17:36 | RAD ---
Date of service: 02/15/2019 HISTORY: pain COMPARISON: None available. TECHNIQUE: 1 view obtained. FINDINGS: Prominent air-filled small bowel loops in the mid abdomen. Moderate constipation. Osseous demineralization. No acute osseous abnormality is detected. IMPRESSION: Prominent air-filled small bowel loops in the mid abdomen; ileus or obstruction may be considered in the proper clinical setting. Moderate constipation.
[2019-02-15 18:32] LABS: MEAN CORPUSCULAR HEMOGLOBIN 30.4 pg (27.0-31.0); MEAN CORPUSCULAR HGB CONC 32.7 g/dL (33.0-37.0); MEAN PLATELET VOLUME 7.2 fL (7.2-11.7); PLATELET COUNT 76 K/uL (130-400); RBC 1.68 Mil/uL (4.40-5.90); RED CELL DISTRIBUTION WIDTH 15.8 % (11.5-14.5)
[2019-02-15 18:48] LABS: INR 1.5; PROTHROMBIN TIME 16.6 SECONDS (9.7-12.2)
[2019-02-15 18:49] LABS: ALB/GLOB RATIO 0.8 (1.0-2.1); ALBUMIN 1.4 g/dL (3.5-5.0); ALT/SGPT 17 U/L (21-72); AST/SGOT 5 U/L (17-59); BLOOD UREA NITROGEN 16 mg/dL (9-20); GFR NON-AFRICAN AMERICAN > 60; LIPASE 36 U/L (23-300)
[2019-02-15 19:11] LABS: HEMOGLOBIN 5.1 g/dL (12.0-18.0); WHITE BLOOD COUNT 0.3 K/uL (4.8-10.8)
[2019-02-15] MEDS ORDERED: Potassium Chloride 20 mEq/15 ml LIQ UD PO ONE (23:15)
--- NOTE | 2019-02-16 07:22 | CP.PCM.PN ---
Subjective - Date & Time of Evaluation Date of Evaluation: 02/16/19 Time of Evaluation: 09:00 - Subjective Subjective: Medicine progress note for Dr. Montoya. Patient seen and examined at bedside. Patient received 2 units PRBC overnight. States he feels much better. Lying in bedcomfortably. No complaints. Denies chest pain, headaches, vision changes, SOB, fevers, chills, nausea, vomiting, abdominal pain, dysuria, hematuria. Objective - Vital Signs/Intake and Output Vital Signs (last 24 hours): Temp Pulse Resp BP Pulse Ox 97.8 F 88 20 106/63 96 02/16/19 06:31 02/16/19 06:31 02/16/19 06:31 02/16/19 06:31 02/15/19 19:37 Intake and Output: 02/16/19 02/16/19 06:59 18:59 Intake Total 800 Balance 800 - Medications Medications: Current Medications Docusate Sodium (Colace) 100 mg PO BID [facility] Furosemide (Lasix) 20 mg PO DAILY [facility] Pantoprazole Sodium (Protonix Ec Tab) 40 mg PO DAILY [facility] Tamsulosin HCl (Flomax) 0.4 mg PO BID [facility] - Labs Labs: 02/15/19 18:27 02/15/19 18:27 PT 16.6 SECONDS (9.7-12.2) H 02/15/19 18:27 INR 1.5 02/15/19 18:27 APTT 34 SECONDS (21-34) 02/15/19 18:27 - Constitutional Appears: Non-toxic, No Acute Distress - Head Exam Head Exam: NORMAL INSPECTION - Eye Exam Eye Exam: EOMI - ENT Exam ENT Exam: Mucous Membranes Moist - Respiratory Exam Respiratory Exam: Clear to Ausculation Bilateral, NORMAL BREATHING PATTERN. absent: Rhonchi, Wheezes, Stridor Additional comments: R anterior chest tube in place - Cardiovascular Exam Cardiovascular Exam: +S1, +S2 - GI/Abdominal Exam GI & Abdominal Exam: Soft, Normal Bowel Sounds - Extremities Exam Extremities Exam: Full ROM Additional comments: anasarca entire body - Back Exam Back Exam: absent: CVA tenderness (L), CVA tenderness (R) - Neurological Exam Neurological Exam: Alert, Awake, Oriented x3 - Skin Skin Exam: Normal Color, Warm Additional comments: multiple bruises through body Assessment and Plan - Assessment and Plan (Free Text) Assessment: 78 M w/ PMhx of AML, HTN, BPH presents to ED for fatigue, Hgb 5.1 on admission Plan: Pancytopenia 2/2 AML - hgb 5.1, WBC 0.3, platelets 77 initially - s/p transfuse 2 X PRBC, hgb 9.8 - f/u Dr. Diamante jo - pervious admission WBC 0.2, hgb 9.8. platlets 40s Anasarca Hypoalbuminemia - albumin 1.4 - may need albumin - will consider post transfusion to concerns of fluid overload - lasix 20 mg daily History of BPH - c/w home medications flomax 0.4 mg BID History constipation - c/w home medications colace 100 mg PO BID History of GERD - c/w home medication protonix 40 mg PO daily PPx - DVT: VTE contrainducated due to low platelets - regular diet - F/u PT/OT recs
[2019-02-16] MEDS: Pantoprazole 40 mg EC Tab PO SCH (10:30)
[2019-02-16 11:13] LABS: BASO % 0.9 % (0.0-2.0); EOS % 0.6 % (0.0-4.0); LYMPH # 0.2 K/uL (1.0-4.3); LYMPH % 30.2 % (20.0-40.0); MEAN CELL VOLUME 91.6 fL (80.0-94.0); MEAN CORPUSCULAR HEMOGLOBIN 31.2 pg (27.0-31.0); MEAN PLATELET VOLUME 7.4 fL (7.2-11.7); MONO % 1.6 % (0.0-10.0); NEUT # 0.4 K/uL (1.8-7.0); NEUT % 66.7 % (50.0-75.0); NRBC % 1.1 % (0.0-2.0); RBC 3.01 Mil/uL (4.40-5.90); RED CELL DISTRIBUTION WIDTH 14.1 % (11.5-14.5)
[2019-02-16 11:22] LABS: WHITE BLOOD COUNT 0.7 K/uL (4.8-10.8)
[2019-02-16 11:23] LABS: HEMOGLOBIN 9.4 g/dL (12.0-18.0)
[2019-02-16 11:31] LABS: ALB/GLOB RATIO 0.8 (1.0-2.1); ALBUMIN 1.6 g/dL (3.5-5.0); ALT/SGPT 7 U/L (21-72); AST/SGOT 7 U/L (17-59); BLOOD UREA NITROGEN 17 mg/dL (9-20); CALCIUM 7.3 mg/dl (8.6-10.4); GFR NON-AFRICAN AMERICAN > 60
--- NOTE | 2019-02-16 17:00 | CARD ---
APPROVED REPORT Date of service: 02/15/2019 EKG Measurement Heart [id number] <Conclusion> Normal sinus rhythm Nonspecific intraventricular block Nonspecific T wave abnormality Abnormal ECG
--- NOTE | 2019-02-16 22:08 | CP.PCM.CON ---
History of Present Illness - History of Present Illness History of Present Illness: 78 year old male with a history of AML diagnosed 09/2018 on decitabine, not dosed for over a month, lung mass, pneumothorax, presenting with abdominal pain, found to be neutropenic, anemic, and thrombocytopenic. The patient notes to p rogressive weakness and lower abdominal pain. His became concerned and brought him to the hospital. He was found to have a hgb of 5.1 and is s/p PRBC transfusion. He notes to feeling much better. Past medical history: COPD, AML, lung mass, pneumothorax Past surgical history: Denies Family history: Denies hematologic and oncologic problems Social history: Former tobacco abuse Allergies: NKA Review of systems: All remaining review of systems including HEENT, cardiovascular, respiratory, gastrointestinal, genitourinary, musculoskeletal, dermatologic, neurologic, and psychiatric are negative unless mentioned in the HPI. Past Patient History - Infectious Disease Hx of Infectious Diseases: None - Tetanus Immunizations Tetanus Immunization: Unknown - Past Medical History & Family History Past Medical History?: Yes - Past Social History Smoking Status: Former Smoker - CARDIAC Hx Hypertension: Yes Hx Peripheral Edema: Yes - PULMONARY Hx Chronic Obstructive Pulmonary Disease (COPD): Yes Hx Pneumonia: Yes - NEUROLOGICAL Hx Neurological Disorder: No - HEENT Hx HEENT Problems: Yes - RENAL Hx Chronic Kidney Disease: No - ENDOCRINE/METABOLIC Hx Endocrine Disorders: No - HEMATOLOGICAL/ONCOLOGICAL Hx Blood Disorders: Yes Hx Leukemia: Yes (Recieves Chemo last chemo tx was Thursday) - INTEGUMENTARY Hx Dermatological Problems: No - MUSCULOSKELETAL/RHEUMATOLOGICAL Hx Falls: No - GASTROINTESTINAL Hx Gastrointestinal Disorders: Yes Hx Constipation: Yes - GENITOURINARY/GYNECOLOGICAL Hx Genitourinary Disorders: Yes - PSYCHIATRIC Hx Psychophysiologic Disorder: No Hx Substance Use: No - SURGICAL HISTORY Hx Surgeries: Yes Other/Comment: chest tube. - ANESTHESIA Hx Anesthesia: No Meds Allergies/Adverse Reactions: Allergies Allergy/AdvReac Type Severity Reaction Status Date / Time No Known Allergies Allergy Verified 02/15/19 14:42 - Medications Medications: Current Medications Docusate Sodium (Colace) 100 mg PO BID [facility] Last Admin: 02/16/19 18:00 Dose: 100 mg Furosemide (Lasix) 20 mg PO DAILY [facility] Last Admin: 02/16/19 10:30 Dose: Not Given Pantoprazole Sodium (Protonix Ec Tab) 40 mg PO DAILY [facility] Last Admin: 02/16/19 10:30 Dose: 40 mg Tamsulosin HCl (Flomax) 0.4 mg PO BID [facility] Last Admin: 02/16/19 18:00 Dose: 0.4 mg Physical Exam - Head Exam Head Exam: ATRAUMATIC - Eye Exam Eye Exam: Normal appearance - ENT Exam ENT Exam: Mucous Membranes Dry - Respiratory Exam Respiratory Exam: NORMAL BREATHING PATTERN - Cardiovascular Exam Cardiovascular Exam: +S1, +S2 - GI/Abdominal Exam GI & Abdominal Exam: Normal Bowel Sounds - Extremities Exam Extremities exam: Positive for: pedal edema Results - Vital Signs Recent Vital Signs: Last Vital Signs Temp 98.1 F 02/16/19 16:00 Pulse 94 H 02/16/19 16:00 Resp 20 02/16/19 16:00 BP 105/63 02/16/19 16:00 Pulse Ox 97 02/16/19 16:00 - Labs Result Diagrams: 02/16/19 11:01 02/16/19 11:01 Labs: Laboratory Results - last 24 hr 02/15/19 02/16/19 02/16/19 18:27 11:01 11:01 WBC 0.7 L* D RBC 3.01 L Hgb 9.4 L D Hct 27.5 L MCV 91.6 MCH 31.2 H MCHC 34.0 RDW 14.1 Plt Count 84 L MPV 7.4 Neut % (Auto) 66.7 Lymph % (Auto) 30.2 [place] % (Auto) 1.6 Eos % (Auto) 0.6 Baso % (Auto) 0.9 Neut # (Auto) 0.4 L Lymph # (Auto) 0.2 L [place] # (Auto) 0.0 Eos # (Auto) 0.0 Baso # (Auto) 0.0 Differential Comment Sodium 133 Potassium 4.0 Chloride 104 Carbon Dioxide 32 H Anion Gap 1 L BUN 17 Creatinine 0.6 L Est GFR ( Amer) > 60 Est GFR (Non-Af Amer) > 60 Random Glucose 111 H Calcium 7.3 L Phosphorus 3.1 Magnesium 1.6 Total Bilirubin 0.8 AST 7 L D ALT 7 L D Alkaline Phosphatase 54 Total Protein 3.6 L Albumin 1.6 L Globulin 2.0 L Albumin/Globulin Ratio 0.8 L Blood Type B POSITIVE Antibody Screen Negative Assessment & Plan (1) Pancytopenia Assessment and Plan: secondary to AML transfusion support PRN neutropenic precautions Status: Chronic Priority: High (2) AML (acute myeloblastic leukemia) Assessment and Plan: was on decitabine; not treated in over a month supportive care. declined hospice DNR/DNI Thank you for this interesting consult. Status: Chronic Priority: High
[2019-02-17 07:03] LABS: BASO % 0.4 % (0.0-2.0); EOS % 0.6 % (0.0-4.0); HEMOGLOBIN 10.2 g/dL (12.0-18.0); LYMPH # 0.1 K/uL (1.0-4.3); LYMPH % 23.7 % (20.0-40.0); MEAN CELL VOLUME 92.5 fL (80.0-94.0); MEAN CORPUSCULAR HEMOGLOBIN 31.8 pg (27.0-31.0); MEAN CORPUSCULAR HGB CONC 34.4 g/dL (33.0-37.0); MEAN PLATELET VOLUME 8.2 fL (7.2-11.7); MONO % 3.5 % (0.0-10.0); NEUT # 0.3 K/uL (1.8-7.0); NEUT % 71.8 % (50.0-75.0); NRBC % 0.7 % (0.0-2.0); RBC 3.21 Mil/uL (4.40-5.90); RED CELL DISTRIBUTION WIDTH 14.7 % (11.5-14.5)
[2019-02-17 07:11] LABS: WHITE BLOOD COUNT 0.5 K/uL (4.8-10.8)
[2019-02-17 07:24] LABS: ALB/GLOB RATIO 0.8 (1.0-2.1); ALBUMIN 1.7 g/dL (3.5-5.0); ALT/SGPT 10 U/L (21-72); AST/SGOT 8 U/L (17-59); BLOOD UREA NITROGEN 19 mg/dL (9-20); CALCIUM 7.1 mg/dl (8.6-10.4); GFR NON-AFRICAN AMERICAN > 60
[2019-02-17] MEDS: Pantoprazole 40 mg EC Tab PO SCH (09:31)
--- NOTE | 2019-02-17 13:46 | CP.PCM.PN ---
Subjective - Date & Time of Evaluation Date of Evaluation: 02/17/19 Time of Evaluation: 08:00 - Subjective Subjective: PGY-[address] Montoya Patient is seen and examined at bedside. Patient states having mild shortness of breath, denies chest pain. Patient denies fever, chills, dizziness, abdominal pain, n/v/d/c or urinary complaints. Right chest tube pigtail not draining as per nurse. Pulm to assess catheter this morning. Patient is tolerating diet. No other complaints at this time. Objective - Vital Signs/Intake and Output Vital Signs (last 24 hours): Temp Pulse Resp BP Pulse Ox 98.3 F 103 H 20 99/64 L 96 02/17/19 07:05 02/17/19 07:05 02/17/19 07:05 02/17/19 07:05 02/17/19 07:05 Intake and Output: 02/17/19 02/17/19 06:59 18:59 Intake Total 420 Output Total 300 Balance 120 - Medications Medications: Current Medications Docusate Sodium (Colace) 100 mg PO BID [facility] Last Admin: 02/17/19 09:31 Dose: 100 mg Furosemide (Lasix) 20 mg PO DAILY [facility] Last Admin: 02/17/19 09:31 Dose: Not Given Pantoprazole Sodium (Protonix Ec Tab) 40 mg PO DAILY [facility] Last Admin: 02/17/19 09:31 Dose: 40 mg Tamsulosin HCl (Flomax) 0.4 mg PO BID [facility] Last Admin: 02/17/19 09:30 Dose: 0.4 mg - Labs Labs: 02/17/19 06:44 02/17/19 06:44 PT 16.6 SECONDS (9.7-12.2) H 02/15/19 18:27 INR 1.5 02/15/19 18:27 APTT 34 SECONDS (21-34) 02/15/19 18:27 - Constitutional Appears: No Acute Distress, Cachectic, Chronically Ill - Head Exam Head Exam: ATRAUMATIC, NORMOCEPHALIC - Eye Exam Eye Exam: EOMI - ENT Exam ENT Exam: Mucous Membranes Moist - Respiratory Exam Respiratory Exam: Clear to Ausculation Bilateral, NORMAL BREATHING PATTERN Additional comments: right chest tube insertion at superior frontal chest area at leavel of RT second rib, covered with dressing. one way valve with no drainage observed. - Cardiovascular Exam Cardiovascular Exam: REGULAR RHYTHM, +S1, +S2 - GI/Abdominal Exam GI & Abdominal Exam: Soft, Normal Bowel Sounds Assessment and Plan - Assessment and Plan (Free Text) Assessment: 78 M w/ PMhx of AML, HTN, BPH presents to ED for fatigue, pancytopenia, Hgb 5.1, s/p PRBC 2 units, improving Hgb, poor drainage on RT chest tube, pulm on board. Onc on board. Plan: Pancytopenia 2/2 AML - on admission hgb 5.1, WBC 0.3, platelets 77 - s/p transfuse 2 X PRBC, hgb 9.8 - this morning Hb 10.2, platelets 67, WBC 0.5 - Dr Bobby - Heme/Onc - f/u recs poor drainage Right chest tube - Dr Thurston - pulm - consulted - switched one way valve to correct side - Chest xray on admission - no pneumothorax, re-expansion of right lung - will follow up output from chest tube Anasarca Hypoalbuminemia - albumin 1.7 from 1.4 - cont lasix 20 mg daily History of BPH - cont flomax 0.4 mg BID History constipation - cont colace 100 mg PO BID History of GERD - cont protonix 40 mg PO daily PPx - DVT: VTE contrainducated due to low platelets - regular diet - F/u PT/OT recs Plan discussed with Dr Lindsay Lauren, PGY-1
--- NOTE | 2019-02-17 14:32 | CP.PCM.CON ---
<Zoe Garcia - Last Filed: 02/17/19 14:32> History of Present Illness - History of Present Illness History of Present Illness: 78 M w/ PMHx COPD, AML currently on chemo, BPH and HTN, recurrent pleural effusions presens to ED for tiredness. Patient states he was supposed to go for a blood transfusion today; however, felt extremetly tired today so came to the Ed. Patient denies recent illness and travel history. Patient has no further complaints. Denies headaches, vision changes, chest pain, SOB, abdominal pain, fevers, chills, nausea, vomiting. Patient is well known to Dr. Thurston. Pulm consulted for poor drainage of right chest tube. Patient is chornically ill with poor reserve. Dr. Bobby is managing patient for his AML diagnosis. PMD: Dr. Montoya Onc: Dr. Bobby Pulm: Dr. 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 Family hx: no history of cancer DNR/DNI Review of Systems - Review of Systems All systems: reviewed and no additional remarkable complaints except Review of Systems: see HPI Past Patient History - Infectious Disease Hx of Infectious Diseases: None - Tetanus Immunizations Tetanus Immunization: Unknown - Past Medical History & Family History Past Medical History?: Yes - Past Social History Smoking Status: Former Smoker - CARDIAC Hx Hypertension: Yes Hx Peripheral Edema: Yes - PULMONARY Hx Chronic Obstructive Pulmonary Disease (COPD): Yes Hx Pneumonia: Yes - NEUROLOGICAL Hx Neurological Disorder: No - HEENT Hx HEENT Problems: Yes - RENAL Hx Chronic Kidney Disease: No - ENDOCRINE/METABOLIC Hx Endocrine Disorders: No - HEMATOLOGICAL/ONCOLOGICAL Hx Blood Disorders: Yes Hx Leukemia: Yes (Recieves Chemo last chemo tx was Thursday) - INTEGUMENTARY Hx Dermatological Problems: No - MUSCULOSKELETAL/RHEUMATOLOGICAL Hx Falls: No - GASTROINTESTINAL Hx Gastrointestinal Disorders: Yes Hx Constipation: Yes - GENITOURINARY/GYNECOLOGICAL Hx Genitourinary Disorders: Yes - PSYCHIATRIC Hx Psychophysiologic Disorder: No Hx Substance Use: No - SURGICAL HISTORY Hx Surgeries: Yes Other/Comment: chest tube. - ANESTHESIA Hx Anesthesia: No Meds Allergies/Adverse Reactions: Allergies Allergy/AdvReac Type Severity Reaction Status Date / Time No Known Allergies Allergy Verified 02/15/19 14:42 - Medications Medications: Current Medications Docusate Sodium (Colace) 100 mg PO BID [facility] Last Admin: 02/17/19 09:31 Dose: 100 mg Furosemide (Lasix) 20 mg PO DAILY [facility] Last Admin: 02/17/19 09:31 Dose: Not Given Pantoprazole Sodium (Protonix Ec Tab) 40 mg PO DAILY [facility] Last Admin: 02/17/19 09:31 Dose: 40 mg Tamsulosin HCl (Flomax) 0.4 mg PO BID [facility] Last Admin: 02/17/19 09:30 Dose: 0.4 mg Physical Exam - Constitutional Appears: Cachectic, Chronically Ill - Head Exam Head Exam: NORMAL INSPECTION - Eye Exam Eye Exam: EOMI - ENT Exam ENT Exam: Mucous Membranes Dry - Respiratory Exam Respiratory Exam: Clear to Auscultation Bilateral, NORMAL BREATHING PATTERN Additional comments: right chest tube with one-way valve attached in opposite direction limiting drainage. - Cardiovascular Exam Cardiovascular Exam: REGULAR RHYTHM, +S1, +S2 - GI/Abdominal Exam GI & Abdominal Exam: Normal Bowel Sounds, Soft - Extremities Exam Extremities exam: Positive for: normal inspection - Neurological Exam Neurological exam: Alert, Oriented x3 - Psychiatric Exam Psychiatric exam: Normal Affect, Normal Mood - Skin Skin Exam: Dry, Intact, Normal Color Results - Vital Signs Recent Vital Signs: Last Vital Signs Temp 98.3 F 02/17/19 07:05 Pulse 103 H 02/17/19 07:05 Resp 20 02/17/19 07:05 BP 99/64 L 02/17/19 07:05 Pulse Ox 96 02/17/19 07:05 - Labs Result Diagrams: 02/17/19 06:44 02/17/19 06:44 Labs: Laboratory Results - last 24 hr 02/17/19 02/17/19 06:44 06:44 WBC 0.5 L* RBC 3.21 L Hgb 10.2 L Hct 29.7 L MCV 92.5 MCH 31.8 H MCHC 34.4 RDW 14.7 H Plt Count 67 L MPV 8.2 Neut % (Auto) 71.8 Lymph % (Auto) 23.7 [place] % (Auto) 3.5 Eos % (Auto) 0.6 Baso % (Auto) 0.4 Neut # (Auto) 0.3 L Lymph # (Auto) 0.1 L [place] # (Auto) 0.0 Eos # (Auto) 0.0 Baso # (Auto) 0.0 Sodium 132 Potassium 4.0 Chloride 103 Carbon Dioxide 28 Anion Gap 6 L BUN 19 Creatinine 0.5 L Est GFR ( Amer) > 60 Est GFR (Non-Af Amer) > 60 Random Glucose 98 Calcium 7.1 L Phosphorus 3.0 Magnesium 1.7 Total Bilirubin 0.8 AST 8 L ALT 10 L D Alkaline Phosphatase 50 Total Protein 3.7 L Albumin 1.7 L Globulin 2.0 L Albumin/Globulin Ratio 0.8 L Assessment & Plan - Assessment and Plan (Free Text) Assessment: Poor pig-tail catheter drainage on right side Switched one-way valve to correct side Most recent CXR with no pneumothorax Hx of AML Continue management as per heme/onc and primary Blood transfusions PRN neutropenic precuations PGY-1 Zoe Michaud d/w Dr. Thurston <Narendra Thurston S - Last Filed: 02/18/19 15:40> Meds - Medications Medications: Current Medications Docusate Sodium (Colace) 100 mg PO BID [facility] Last Admin: 02/17/19 17:14 Dose: 100 mg Furosemide (Lasix) 20 mg PO DAILY [facility] Last Admin: 02/17/19 09:31 Dose: Not Given Pantoprazole Sodium (Protonix Ec Tab) 40 mg PO DAILY [facility] Last Admin: 02/17/19 09:31 Dose: 40 mg Tamsulosin HCl (Flomax) 0.4 mg PO BID [facility] Last Admin: 02/17/19 17:14 Dose: 0.4 mg Results - Vital Signs Recent Vital Signs: Last Vital Signs Temp 98 F 02/17/19 16:12 Pulse 96 H 02/17/19 16:12 Resp 20 02/17/19 16:12 BP 110/69 02/17/19 16:12 Pulse Ox 100 02/17/19 16:12 - Labs Result Diagrams: 02/18/19 06:55 02/18/19 06:55 Labs: Laboratory Results - last 24 hr 02/17/19 02/17/19 06:44 06:44 WBC 0.5 L* RBC 3.21 L Hgb 10.2 L Hct 29.7 L MCV 92.5 MCH 31.8 H MCHC 34.4 RDW 14.7 H Plt Count 67 L MPV 8.2 Neut % (Auto) 71.8 Lymph % (Auto) 23.7 [place] % (Auto) 3.5 Eos % (Auto) 0.6 Baso % (Auto) 0.4 Neut # (Auto) 0.3 L Lymph # (Auto) 0.1 L [place] # (Auto) 0.0 Eos # (Auto) 0.0 Baso # (Auto) 0.0 Sodium 132 Potassium 4.0 Chloride 103 Carbon Dioxide 28 Anion Gap 6 L BUN 19 Creatinine 0.5 L Est GFR ( Amer) > 60 Est GFR (Non-Af Amer) > 60 Random Glucose 98 Calcium 7.1 L Phosphorus 3.0 Magnesium 1.7 Total Bilirubin 0.8 AST 8 L ALT 10 L D Alkaline Phosphatase 50 Total Protein 3.7 L Albumin 1.7 L Globulin 2.0 L Albumin/Globulin Ratio 0.8 L Attending/Attestation - Attestation I have personally seen and examined this patient.: Yes I have fully participated in the care of the patient.: Yes I have reviewed all pertinent clinical information: Yes Notes (Text): Patient seen and examined Chest x-ray with full expansion of right lung and Heimlich valve in place patient in no respiratory distress Continue present treatment for now
--- NOTE | 2019-02-17 19:50 | CP.PCM.PN ---
Subjective - Date & Time of Evaluation Date of Evaluation: 02/17/19 Time of Evaluation: 18:00 - Subjective Subjective: Appears fatigued, no complaints. Objective - Vital Signs/Intake and Output Vital Signs (last 24 hours): Temp Pulse Resp BP Pulse Ox 98 F 96 H 20 110/69 100 02/17/19 16:12 02/17/19 16:12 02/17/19 16:12 02/17/19 16:12 02/17/19 16:12 Intake and Output: 02/17/19 02/18/19 18:59 06:59 Intake Total 360 Balance 360 - Medications Medications: Current Medications Docusate Sodium (Colace) 100 mg PO BID [facility] Last Admin: 02/17/19 17:14 Dose: 100 mg Furosemide (Lasix) 20 mg PO DAILY [facility] Last Admin: 02/17/19 09:31 Dose: Not Given Pantoprazole Sodium (Protonix Ec Tab) 40 mg PO DAILY [facility] Last Admin: 02/17/19 09:31 Dose: 40 mg Tamsulosin HCl (Flomax) 0.4 mg PO BID [facility] Last Admin: 02/17/19 17:14 Dose: 0.4 mg - Labs Labs: 02/17/19 06:44 02/17/19 06:44 PT 16.6 SECONDS (9.7-12.2) H 02/15/19 18:27 INR 1.5 02/15/19 18:27 APTT 34 SECONDS (21-34) 02/15/19 18:27 - Constitutional Appears: Cachectic - Head Exam Head Exam: ATRAUMATIC - Eye Exam Eye Exam: Normal appearance - ENT Exam ENT Exam: Mucous Membranes Dry - Respiratory Exam Respiratory Exam: Decreased Breath Sounds - Cardiovascular Exam Cardiovascular Exam: +S1, +S2 - GI/Abdominal Exam GI & Abdominal Exam: Normal Bowel Sounds - Extremities Exam Extremities Exam: Pedal Edema Assessment and Plan (1) Pancytopenia 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
[2019-02-18 07:18] LABS: BASO % 0.7 % (0.0-2.0); EOS % 0.9 % (0.0-4.0); HEMOGLOBIN 9.7 g/dL (12.0-18.0); LYMPH # 0.1 K/uL (1.0-4.3); LYMPH % 19.8 % (20.0-40.0); MEAN CELL VOLUME 93.4 fL (80.0-94.0); MEAN CORPUSCULAR HEMOGLOBIN 31.4 pg (27.0-31.0); MEAN CORPUSCULAR HGB CONC 33.7 g/dL (33.0-37.0); MEAN PLATELET VOLUME 7.9 fL (7.2-11.7); MONO % 3.6 % (0.0-10.0); NEUT # 0.5 K/uL (1.8-7.0); NRBC % 0.8 % (0.0-2.0); RBC 3.1 Mil/uL (4.40-5.90)
[2019-02-18 07:23] LABS: WHITE BLOOD COUNT 0.6 K/uL (4.8-10.8)
--- NOTE | 2019-02-18 07:31 | CP.PCM.PN ---
Objective - Vital Signs/Intake and Output Vital Signs (last 24 hours): Temp Pulse Resp BP Pulse Ox 97.8 F 112 H 20 111/64 96 02/18/19 00:00 02/18/19 00:00 02/18/19 00:00 02/18/19 00:00 02/18/19 00:00 Intake and Output: 02/18/19 02/18/19 06:59 18:59 Intake Total 300 Balance 300 - Medications Medications: Current Medications Docusate Sodium (Colace) 100 mg PO BID [facility] Last Admin: 02/17/19 17:14 Dose: 100 mg Furosemide (Lasix) 20 mg PO DAILY [facility] Last Admin: 02/17/19 09:31 Dose: Not Given Pantoprazole Sodium (Protonix Ec Tab) 40 mg PO DAILY [facility] Last Admin: 02/17/19 09:31 Dose: 40 mg Tamsulosin HCl (Flomax) 0.4 mg PO BID [facility] Last Admin: 02/17/19 17:14 Dose: 0.4 mg - Labs Labs: 02/18/19 06:55 02/17/19 06:44 PT 16.6 SECONDS (9.7-12.2) H 02/15/19 18:27 INR 1.5 02/15/19 18:27 APTT 34 SECONDS (21-34) 02/15/19 18:27
[2019-02-18 07:38] LABS: ALB/GLOB RATIO 0.8 (1.0-2.1); ALBUMIN 1.6 g/dL (3.5-5.0); ALT/SGPT 7 U/L (21-72); AST/SGOT 6 U/L (17-59); BLOOD UREA NITROGEN 19 mg/dL (9-20); CALCIUM 7.5 mg/dl (8.6-10.4); GFR NON-AFRICAN AMERICAN > 60
[2019-02-18 08:08] VITALS: BP 115/76; PULSE 108; RESP 18; TEMP 97.7; O2SAT 94
[2019-02-18] MEDS: Pantoprazole 40 mg EC Tab PO SCH (09:53)
--- NOTE | 2019-02-18 10:08 | CP.PCM.PN ---
<Zoe Garcia - Last Filed: 02/18/19 11:49> Subjective - Date & Time of Evaluation Date of Evaluation: 02/18/19 Time of Evaluation: 09:53 - Subjective Subjective: Pulm Consult note for Dr. Thurston Patient seen and examined at bedside with . Afebrile. Reports continued mild fatigue but denies shortness of breath or cough Chest tube on right side appears to be functioning properly after alterations made yesterday Dressings appear clean. Objective - Vital Signs/Intake and Output Vital Signs (last 24 hours): Temp Pulse Resp BP Pulse Ox 97.7 F 108 H 18 115/76 94 L 02/18/19 08:07 02/18/19 08:07 02/18/19 08:07 02/18/19 08:07 02/18/19 08:07 Intake and Output: 02/18/19 02/18/19 06:59 18:59 Intake Total 300 Balance 300 - Medications Medications: Current Medications Docusate Sodium (Colace) 100 mg PO BID [facility] Last Admin: 02/17/19 17:14 Dose: 100 mg Furosemide (Lasix) 20 mg PO DAILY [facility] Last Admin: 02/17/19 09:31 Dose: Not Given Pantoprazole Sodium (Protonix Ec Tab) 40 mg PO DAILY [facility] Last Admin: 02/17/19 09:31 Dose: 40 mg Tamsulosin HCl (Flomax) 0.4 mg PO BID [facility] Last Admin: 02/17/19 17:14 Dose: 0.4 mg - Labs Labs: 02/18/19 06:55 02/18/19 06:55 PT 16.6 SECONDS (9.7-12.2) H 02/15/19 18:27 INR 1.5 02/15/19 18:27 APTT 34 SECONDS (21-34) 02/15/19 18:27 - Constitutional Appears: Well, No Acute Distress, Chronically Ill - Head Exam Head Exam: ATRAUMATIC, NORMOCEPHALIC - Eye Exam Eye Exam: Normal appearance - ENT Exam ENT Exam: Mucous Membranes Moist - Respiratory Exam Respiratory Exam: Clear to Ausculation Bilateral, NORMAL BREATHING PATTERN. absent: Rales (Chest tube on right side with one way valve in correct position), Rhonchi, Wheezes - Cardiovascular Exam Cardiovascular Exam: REGULAR RHYTHM, +S1, +S2 - GI/Abdominal Exam GI & Abdominal Exam: Soft, Normal Bowel Sounds - Extremities Exam Extremities Exam: Pedal Edema (2+ bilateral lower extremities). absent: Calf Tenderness - Skin Skin Exam: Warm Assessment and Plan - Assessment and Plan (Free Text) Assessment: Chest Tube Management educated patient on correct placement on valve minimal drainage appreciated patient in no sob dc as per primary prognosis is poor <Narendra Thurston - Last Filed: 02/18/19 15:40> Objective - Vital Signs/Intake and Output Vital Signs (last 24 hours): Temp Pulse Resp BP Pulse Ox 97.7 F 108 H 18 115/76 94 L 02/18/19 08:07 02/18/19 08:07 02/18/19 08:07 02/18/19 09:52 02/18/19 08:07 Intake and Output: 02/18/19 02/18/19 06:59 18:59 Intake Total 300 400 Balance 300 400 - Labs Labs: 02/18/19 06:55 02/18/19 06:55 PT 16.6 SECONDS (9.7-12.2) H 02/15/19 18:27 INR 1.5 02/15/19 18:27 APTT 34 SECONDS (21-34) 02/15/19 18:27 Attending/Attestation - Attestation I have personally seen and examined this patient.: Yes I have fully participated in the care of the patient.: Yes I have reviewed all pertinent clinical information, including history, physical exam and plan: Yes Notes (Text): 02/18/19 15:40 Patient seen and examined Stable from pulmonary standpoint
--- NOTE | 2019-02-18 11:05 | CP.PCM.DIS ---
Provider - Provider Date of Admission: 02/15/19 15:27 Attending physician: Andrzej Montoya Jr, MD Primary care physician: Dr. Montoya Consults: 02/15/19 20:11 Nursing Referral for Palliative Care Routine Comment: Physician Instructions: on DNR/ DNI status Reason For Exam: 2nd admission in less than a month Nursing Referral for Wound Care Routine Comment: Physician Instructions: Reason For Exam: Stage 1 sacral redness and small excoriation 02/15/19 22:57 Hematology Oncology Consult Routine Comment: Consulting Provider: Kartik Bobby Consulting Physician: Kartik Bobby Reason for Consult: anemia, thrombocytopenia 02/17/19 11:50 Pulmonology Consult Routine Comment: Consulting Provider: Narendra Thurston Consulting Physician: Narendra Thurston Reason for Consult: Right chest tube assessment Time Spent in preparation of Discharge (in minutes): 40 Diagnosis - Discharge Diagnosis (1) Acute anemia Status: Acute Comment: Transfused 1 prbc, improved hgb from 5s to 9s. Likely drop 2/2 to AML Hospital Course - Lab Results Lab Results: Most Recent Lab Values WBC 0.6 K/uL (4.8-10.8) L* 02/18/19 06:55 RBC 3.10 Mil/uL (4.40-5.90) L 02/18/19 06:55 Hgb 9.7 g/dL (12.0-18.0) L 02/18/19 06:55 Hct 28.9 % (35.0-51.0) L 02/18/19 06:55 MCV 93.4 fL (80.0-94.0) 02/18/19 06:55 MCH 31.4 pg (27.0-31.0) H 02/18/19 06:55 MCHC 33.7 g/dL (33.0-37.0) 02/18/19 06:55 RDW 15.0 % (11.5-14.5) H 02/18/19 06:55 Plt Count 53 K/uL (130-400) L 02/18/19 06:55 MPV 7.9 fL (7.2-11.7) 02/18/19 06:55 Neut % (Auto) 75.0 % (50.0-75.0) 02/18/19 06:55 Lymph % (Auto) 19.8 % (20.0-40.0) L 02/18/19 06:55 Peach % (Auto) 3.6 % (0.0-10.0) 02/18/19 06:55 Eos % (Auto) 0.9 % (0.0-4.0) 02/18/19 06:55 Baso % (Auto) 0.7 % (0.0-2.0) 02/18/19 06:55 Neut # (Auto) 0.5 K/uL (1.8-7.0) L 02/18/19 06:55 Lymph # (Auto) 0.1 K/uL (1.0-4.3) L 02/18/19 06:55 Peach # (Auto) 0.0 K/uL (0.0-0.8) 02/18/19 06:55 Eos # (Auto) 0.0 K/uL (0.0-0.7) 02/18/19 06:55 Baso # (Auto) 0.0 K/uL (0.0-0.2) 02/18/19 06:55 Differential Comment 02/16/19 11:01 PT 16.6 SECONDS (9.7-12.2) H 02/15/19 18:27 INR 1.5 02/15/19 18:27 APTT 34 SECONDS (21-34) 02/15/19 18:27 Sodium 133 mmol/L (132-148) 02/18/19 06:55 Potassium 4.0 mmol/L (3.6-5.2) 02/18/19 06:55 Chloride 102 mmol/L (98-107) 02/18/19 06:55 Carbon Dioxide 32 mmol/L (22-30) H 02/18/19 06:55 Anion Gap 3 (10-20) L 02/18/19 06:55 BUN 19 mg/dL (9-20) 02/18/19 06:55 Creatinine 0.5 mg/dL (0.8-1.5) L 02/18/19 06:55 Est GFR ( Amer) > 60 02/18/19 06:55 Est GFR (Non-Af Amer) > 60 02/18/19 06:55 Random Glucose 117 mg/dL (75-110) H 02/18/19 06:55 Lactic Acid < 0.5 mmol/L (0.7-2.1) L 02/15/19 19:22 Calcium 7.5 mg/dl (8.6-10.4) L 02/18/19 06:55 Phosphorus 3.0 mg/dL (2.5-4.5) 02/18/19 06:55 Magnesium 1.7 mg/dL (1.6-2.3) 02/18/19 06:55 Total Bilirubin 0.5 mg/dL (0.2-1.3) 02/18/19 06:55 AST 6 U/L (17-59) L D 02/18/19 06:55 ALT 7 U/L (21-72) L D 02/18/19 06:55 Alkaline Phosphatase 47 U/L (38-126) 02/18/19 06:55 Total Protein 3.5 g/dL (6.3-8.3) L 02/18/19 06:55 Albumin 1.6 g/dL (3.5-5.0) L 02/18/19 06:55 Globulin 1.9 gm/dL (2.2-3.9) L 02/18/19 06:55 Albumin/Globulin Ratio 0.8 (1.0-2.1) L 02/18/19 06:55 Lipase 36 U/L (23-300) 02/15/19 18:27 Blood Type B POSITIVE 02/15/19 18:27 Antibody Screen Negative 02/15/19 18:27 - Hospital Course Hospital Course: HPI: 78 M w/ PMHx COPD, AML currently on chemo, BPH and HTN, recurrent pleural effusions presens to ED for tiredness. Patient states he was supposed to go for a blood transfusion today; however, felt extremetly tired today so came to the Ed. Patient denies recent illness and travel history. Patient has no further complaints. Denies headaches, vision changes, chest pain, SOB, abdominal pain, fevers, chills, nausea, vomiting. Hospital course; CBC indicated acute anemia, hgb of 5s. Pt was trasnfused 1 unit of PRBC. Hemoglobin increased from 5s to 9s. Pulm was consulted due to concerns of chest tube not functioning; adjusted valve. Patient stated he felt much better. Above is only a summary of patients stay during hospitalization. For full details see EMR. Below are instructions provided to patient upon discharge. Patient is stable for discharge per Dr. Montoya Patient should continue home medications as prescribed by his primary doctor. Patient should follow up with Dr. Montoya in 1 week. Patient should follow up with Dr. Thurston, coining press operator in 2 weeks. Patient should follow up with Dr. Bobby, hemolgoist/oncologist in 2 weeks. If any of the symptoms return or worsen, please return to nearest emergency facility. Discharge Exam - Head Exam Head Exam: ATRAUMATIC, NORMOCEPHALIC Additional comments: chronically ill - Eye Exam Eye Exam: EOMI, Normal appearance - ENT Exam ENT Exam: Mucous Membranes Moist - Respiratory Exam Respiratory Exam: Clear to PA & Lateral, UNREMARKABLE. absent: Rales, Rhonchi, Wheezes - Cardiovascular Exam Cardiovascular Exam: +S1, +S2 - GI/Abdominal Exam GI & Abdominal Exam: Normal Bowel Sounds, Soft - Extremities Exam Additional comments: anasarca - Back Exam Back exam: absent: CVA tenderness (L), CVA tenderness (R) - Neurological Exam Neurological exam: Alert, Oriented x3 - Psychiatric Exam Psychiatric exam: Normal Affect, Normal Mood - Skin Skin Exam: Dry, Intact, Normal Color, Warm Discharge Plan - Follow Up Plan Condition: STABLE Disposition: HOME/ ROUTINE Additional Instructions: Patient is stable for discharge per Dr. Montoya Patient should continue home medications as prescribed by his primary doctor. Patient should follow up with Dr. Montoya in 1 week. Patient should follow up with Dr. Thurston, coining press operator in 2 weeks. Patient should follow up with Dr. Bobby, hemolgoist/oncologist in 2 weeks. If any of the symptoms return or worsen, please return to nearest emergency facility.
--- NOTE | 2019-02-18 12:46 | CP.PCM.PCO ---
Physician Communication Note - Physician Communication Note Physician Communication Note: Midline removed pressure dressing applied
--- NOTE | 2019-02-18 19:48 | CP.PCM.PN ---
Subjective - Date & Time of Evaluation Date of Evaluation: 02/18/19 Time of Evaluation: 13:00 - Subjective Subjective: Feeling better Objective - Vital Signs/Intake and Output Vital Signs (last 24 hours): Temp Pulse Resp BP Pulse Ox 97.7 F 108 H 18 115/76 94 L 02/18/19 08:07 02/18/19 08:07 02/18/19 08:07 02/18/19 09:52 02/18/19 08:07 Intake and Output: 02/18/19 02/19/19 18:59 06:59 Intake Total 400 Balance 400 - Labs Labs: 02/18/19 06:55 02/18/19 06:55 PT 16.6 SECONDS (9.7-12.2) H 02/15/19 18:27 INR 1.5 02/15/19 18:27 APTT 34 SECONDS (21-34) 02/15/19 18:27 - Head Exam Head Exam: ATRAUMATIC - Eye Exam Eye Exam: Normal appearance - ENT Exam ENT Exam: Mucous Membranes Dry - Respiratory Exam Respiratory Exam: NORMAL BREATHING PATTERN - Cardiovascular Exam Cardiovascular Exam: +S1, +S2 - GI/Abdominal Exam GI & Abdominal Exam: Normal Bowel Sounds Assessment and Plan (1) Pancytopenia 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
== END 2019-02-18 15:20 | disposition home or self-care (01) | DRG 835 ==
LOC: C.ER 14:34 → C.3T 15:27
PROVIDERS: ADMIT Internal Medicine; ATTEND Internal Medicine
DX: C92.00 Acute myeloblastic leukemia, not having achieved remission (principal); J90 Pleural effusion, not elsewhere classified; R64 Cachexia; Z68.1 Body mass index [BMI] 19.9 or less, adult; D61.818 Other pancytopenia; I10 Essential (primary) hypertension; J44.9 Chronic obstructive pulmonary disease, unspecified; N40.0 Benign prostatic hyperplasia without lower urinary tract symptoms; Z66 Do not resuscitate; Z87.891 Personal history of nicotine dependence; Z46.9 Encounter for fitting and adjustment of unspecified device; L89.151 Pressure ulcer of sacral region, stage 1

== ENCOUNTER 2019-04-08 18:09 | Observation (INO) | payer MEDICARE, OTHER ==
[2019-04-08 18:10] VITALS: BMI 15.4
[2019-04-08] MEDS ORDERED: Dextrose 50% SYRINGE Inj (50 ml) ONE (18:54)
[2019-04-08] MEDS ORDERED: Dextrose 50% SYRINGE Inj (50 ml) IV STA (19:02)
[2019-04-08 19:18] LABS: VENOUS BLOOD GAS BASE EXCESS 8.4 mmol/L (0.0-2.0); VENOUS BLOOD GAS PCO2 55 mmHg (40-60); VENOUS BLOOD GAS PO2 37 mm/Hg (30-55); VENOUS BLOOD PH 7.41 (7.32-7.43)
--- NOTE | 2019-04-08 19:21 | C.PDOC ---
History Of Present Illness PGY-[address] Melton Patient is 78 year old male pmhx of AML was brought by ambulance from home for abdominal pain and weakness since yesterday. at bedside contributes to history, states this morning was more weak, was not able to do physical therapy and was complaining of headaches. Patient states having diffuse pain, mostly on lower abdomen area. Denies fevers, chills, chest pain, sob, n/v/d/c or urinary symptoms, no bloody stools. Time Seen by Provider: 04/08/19 18:30 Chief Complaint (Nursing): Abdominal Pain History Per: Patient, Family () History/Exam Limitations: no limitations Onset/Duration Of Symptoms: Days Current Symptoms Are (Timing): Still Present Severity: Moderate Pain Scale Rating Of: 6 Location Of Pain/Discomfort: Diffuse Radiation Of Pain To:: None Quality Of Discomfort: Unable To Describe Associated Symptoms: denies: Fever, Chills, Nausea, Vomiting, Diarrhea, Loss Of Appetite, Back Pain, Chest Pain, Constipation, Urinary Symptoms Exacerbating Factors: None Alleviating Factors: None Recent travel outside of the [place]: No Additional History Per: Family Past Medical History Vital Signs: Last Vital Signs Temp Pulse 82 04/08/19 19:13 Resp 19 04/08/19 19:13 BP 93/41 L 04/08/19 19:13 Pulse Ox 97 04/08/19 19:13 Primary Care Provider: Andrzej Montoya Jr. - Medical History PMH: Anemia, COPD, HTN, Peripheral Edema, Pneumonia, Pneumothorax Denies: Deep Vein Thrombosis, Chronic Kidney Disease Surgical History: Denies: Pacemaker - [facility] Procedures ASSISTANCE WITH RESPIRATORY VENTILATION, >96 HRS, CPAP (11/29/18) DRAINAGE OF L PLEURAL CAV WITH DRAIN DEV, PERC APPROACH (11/29/18) DRAINAGE OF LEFT PLEURAL CAVITY, PERCUTANEOUS APPROACH (12/17/18) DRAINAGE OF R PLEURAL CAV WITH DRAIN DEV, PERC APPROACH (12/29/18) EXTRACTION OF ILIAC BONE MARROW, PERC APPROACH, DIAGN (09/28/18) INSERTION OF INFUSION DEV INTO R BRACH VEIN, PERC APPROACH (02/15/19) PHERESIS OF PLATELETS, MULTIPLE (12/29/18) PHERESIS OF PLATELETS, SINGLE (12/17/18) TRANSFUSE NONAUT PLATELETS IN PERIPH VEIN, PERC (12/17/18) TRANSFUSE NONAUT RED BLOOD CELLS IN PERIPH VEIN, PERC (12/29/18) ULTRASONOGRAPHY OF PLEURA (12/29/18) ULTRASONOGRAPHY OF RIGHT UPPER EXTREMITY VEINS, GUIDANCE (02/15/19) Family History: States: Unknown Family Hx - Social History Hx Alcohol Use: No Hx Substance Use: No - Immunization History Hx Tetanus Toxoid Vaccination: No Hx Influenza Vaccination: No Hx Pneumococcal Vaccination: No Review Of Systems Constitutional: Negative for: Fever, Chills, Weakness Cardiovascular: Negative for: Chest Pain Respiratory: Negative for: Shortness of Breath Gastrointestinal: Positive for: Abdominal Pain. Negative for: Nausea, Vomiting, Diarrhea, Constipation, Melena, Hematochezia, Hematemesis Genitourinary: Negative for: Dysuria, Frequency Skin: Positive for: Bruising (right arm), Other (blister) Neurological: Positive for: Weakness, Headache. Negative for: Dizziness Psych: Negative for: Anxiety, Depression Physical Exam - Physical Exam Appears: No Acute Distress, Chronically Ill, Other (cachetic ) Skin: Other (right distal upper extremity bruising ) Head: Atraumatic, Normacephalic Eye(s): bilateral: Normal Inspection, EOMI Cardiovascular: Rhythm Regular Respiratory: Rhonchi (bilaterally ), No Wheezing Gastrointestinal/Abdominal: Bowel Sounds, No Soft, No Tenderness, No Distention, No Ascites Extremity: No Tenderness, Swelling (pitting edema +1 ) Neurological/Psych: Oriented x3, Normal Speech, Normal Cognition, Normal Cranial Nerves, Normal Motor, Normal Sensation ED Course And Treatment - Laboratory Results Result Diagrams: 04/08/19 18:45 04/08/19 18:45 ECG: Viewed By Me Interpretation Of EC, Normal sinus rhythm, LBBB, no STEMI Rate From EC O2 Sat by Pulse Oximetry: 97 - Radiology CXR: Viewed By Me CXR Interpretation: Yes: Other (probable small to mod pleural effusion, no significant changes from previous study ) Medical Decision Making Medical Decision Makin yo male with pmhx of AML comes to ED for abdominal pain x 1 day and weakness, no fever, chills, n/v/d or bloody stools. Discussed resusitation status with patient's at bedside, as per patient is DNR/DNI. - CBC, CMP, Mg, Phosp, Coags, Lipase, MARK - EKG - Chest Xray - Blood culture - ABG 20:30 - Cxray possible right side small to mod pleural effusion, unchanged from previous study, pending official report. lab work shows pancytopenia, Platelets 25 from 47 (yesterday), levels unchanged from last visit. blood pressure 60s/45, 1L NS @ 50 cc given. 21:22 - awaiting admission confirmation from Dr Montoya 21:50 - Dr Montoya accepts patient for admission, Heme Onc consult placed Plan d/w Dr Geronimo Lauren, PGY-1 Disposition Discussed With .: Andrzej Montoya Jr. Doctor Will See Patient In The: Hospital - Disposition Disposition: HOSPITALIZED Disposition Time: 21:50 Condition: GUARDED - Clinical Impression Clinical Impression: Weakness, Pancytopenia, Abdominal pain
[2019-04-08 19:42] LABS: BASO % 0.3 % (0.0-2.0); HEMOGLOBIN 9.6 g/dL (12.0-18.0); LYMPH # 0.1 K/uL (1.0-4.3); LYMPH % 39.9 % (20.0-40.0); MEAN CELL VOLUME 91.5 fL (80.0-94.0); MEAN CORPUSCULAR HEMOGLOBIN 31.2 pg (27.0-31.0); MEAN CORPUSCULAR HGB CONC 34.1 g/dL (33.0-37.0); MEAN PLATELET VOLUME 8.3 fL (7.2-11.7); MONO # 0.1 K/uL (0.0-0.8); MONO % 15.9 % (0.0-10.0); NEUT # 0.1 K/uL (1.8-7.0); NEUT % 43.9 % (50.0-75.0); NRBC % 0.5 % (0.0-2.0); RBC 3.07 Mil/uL (4.40-5.90); RED CELL DISTRIBUTION WIDTH 16.5 % (11.5-14.5)
[2019-04-08 19:46] LABS: WHITE BLOOD COUNT 0.3 K/uL (4.8-10.8)
[2019-04-08 19:48] LABS: BLOOD UREA NITROGEN 45 mg/dL (9-20); GFR NON-AFRICAN AMERICAN > 60
[2019-04-08 19:49] LABS: ALB/GLOB RATIO 0.7 (1.0-2.1); ALBUMIN 1.5 g/dL (3.5-5.0); ALT/SGPT 46 U/L (21-72); AST/SGOT 42 U/L (17-59); INR 2.1; LIPASE 234 U/L (23-300); PARTIAL THROMBOPLASTIN TIME 39.3 SECONDS (21-34); PROTHROMBIN TIME 22.5 SECONDS (9.7-12.2)
[2019-04-08 19:58] LABS: CK-MB 2.05 ng/mL (0.0-3.38)
[2019-04-08] MEDS ORDERED: Sodium Chloride 0.9% 1,000 ML IV SCH (21:00)
[2019-04-08] MEDS ORDERED: Sodium Chloride 0.9% 1,000 ML ONE (21:10)
--- NOTE | 2019-04-08 22:41 | CP.PCM.HP ---
History of Present Illness - History of Present Illness History of Present Illness: History and Physical for Dr. Montoay 78 y o male PMhx AML, pancytopenia was BiBEMS for abd pain and weakness since yesterday. at bedside provided most of history, states that pt went to Physical Therapy appt this am, initially was able to participate, but then started c/o headaches and reported having diffuse abdominal pain mostly in the lower abdomen b/l. Also states that pt has rash on b/l forearms that is the worst it has been, states the rash in the past has looked petechial-like when it flares up. Denied fevers, chills, chest pain, sob, n/v/d/c, urinary complaints, or other symptoms. PMD: Dr. Montoya Onc: Dr. Bobby Pulm: Dr. 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 Present on Admission - Present on Admission Any Indicators Present on Admission: No Review of Systems - Constitutional Constitutional: Fatigue, Lethargy, Malaise - Cardiovascular Cardiovascular: absent: Chest Pain, Dyspnea on Exertion, Pedal Edema - Gastrointestinal Gastrointestinal: Abdominal Pain. absent: Constipation, Diarrhea, Nausea, Vomiting - Genitourinary Genitourinary: absent: Change in Urinary Stream, Difficulty Urinating, Dysuria - Neurological Neurological: Weakness Past Patient History - Infectious Disease Hx of Infectious Diseases: None - Tetanus Immunizations Tetanus Immunization: Unknown - Past Medical History & Family History Past Medical History?: Yes - Past Social History Smoking Status: Former Smoker - CARDIAC Hx Hypertension: Yes Hx Pacemaker: No Hx Peripheral Edema: Yes - PULMONARY Hx Chronic Obstructive Pulmonary Disease (COPD): Yes Hx Pneumonia: Yes - NEUROLOGICAL Hx Neurological Disorder: No - HEENT Hx HEENT Problems: Yes - RENAL Hx Chronic Kidney Disease: No - ENDOCRINE/METABOLIC Hx Endocrine Disorders: No - HEMATOLOGICAL/ONCOLOGICAL Hx Anemia: Yes - INTEGUMENTARY Hx Dermatological Problems: No - MUSCULOSKELETAL/RHEUMATOLOGICAL Hx Falls: No - GASTROINTESTINAL Hx Gastrointestinal Disorders: Yes Hx Constipation: Yes - GENITOURINARY/GYNECOLOGICAL Hx Genitourinary Disorders: Yes - PSYCHIATRIC Hx Substance Use: No - SURGICAL HISTORY Hx Mastectomy: No - ANESTHESIA Hx Anesthesia: No Meds Allergies/Adverse Reactions: Allergies Allergy/AdvReac Type Severity Reaction Status Date / Time No Known Allergies Allergy Verified 04/08/19 18:24 Physical Exam - Constitutional Appears: Non-toxic, No Acute Distress, Chronically Ill - Head Exam Head Exam: ATRAUMATIC, NORMOCEPHALIC - Eye Exam Eye Exam: EOMI, Normal appearance, PERRL - ENT Exam ENT Exam: Mucous Membranes Moist - Respiratory Exam Respiratory Exam: Clear to Auscultation Bilateral, NORMAL BREATHING PATTERN. absent: Rales, Rhonchi, Wheezes - Cardiovascular Exam Cardiovascular Exam: REGULAR RHYTHM, +S1, +S2. absent: Gallop, Rubs, Systolic Murmur - GI/Abdominal Exam GI & Abdominal Exam: Normal Bowel Sounds, Rigid, Soft. absent: Distended, Guarding, Organomegaly, Tenderness - Extremities Exam Extremities exam: Positive for: normal capillary refill, pedal pulses present Additional comments: Blistering and weeping noted on b/l forearms - Neurological Exam Neurological exam: Alert, CN II-XII Intact, Oriented x3 Results - Vital Signs Recent Vital Signs: Last Vital Signs Temp 95.5 F L 04/08/19 20:33 Pulse 89 04/08/19 21:53 Resp 16 04/08/19 21:53 BP 96/46 L 04/08/19 21:53 Pulse Ox 97 04/08/19 22:14 - Labs Result Diagrams: 04/09/19 01:59 04/08/19 18:45 Labs: Laboratory Results - last 24 hr 04/08/19 04/08/19 04/08/19 18:45 18:45 18:45 WBC 0.3 L* D RBC 3.07 L Hgb 9.6 L Hct 28.1 L MCV 91.5 MCH 31.2 H MCHC 34.1 RDW 16.5 H Plt Count 25 L* D MPV 8.3 Neut % (Auto) 43.9 L Lymph % (Auto) 39.9 [place] % (Auto) 15.9 H Eos % (Auto) 0.0 Baso % (Auto) 0.3 Neut # (Auto) 0.1 L Lymph # (Auto) 0.1 L [place] # (Auto) 0.1 Eos # (Auto) 0.0 Baso # (Auto) 0.0 PT INR APTT pO2 VBG pH VBG pCO2 VBG HCO3 VBG Total CO2 VBG O2 Sat (Calc) VBG Base Excess VBG Potassium Glucose Lactate Sodium 130 L Potassium 3.9 Chloride 93 L Carbon Dioxide 33 H Anion Gap 8 L BUN 45 H Creatinine 0.8 Est GFR ( Amer) > 60 Est GFR (Non-Af Amer) > 60 POC Glucose (mg/dL) 54 L Random Glucose 65 L Calcium 7.0 L Phosphorus 4.7 H Magnesium 1.8 Total Bilirubin 0.8 AST 42 ALT 46 Alkaline Phosphatase 68 Total Creatine Kinase < 20 L CK-MB (Mass) 2.05 Troponin I < 0.0120 Total Protein 3.7 L Albumin 1.5 L Globulin 2.2 Albumin/Globulin Ratio 0.7 L Lipase 234 Venous Blood Potassium 04/08/19 04/08/19 04/08/19 18:45 18:48 19:15 WBC RBC Hgb Hct MCV MCH MCHC RDW Plt Count MPV Neut % (Auto) Lymph % (Auto) [place] % (Auto) Eos % (Auto) Baso % (Auto) Neut # (Auto) Lymph # (Auto) [place] # (Auto) Eos # (Auto) Baso # (Auto) PT 22.5 H INR 2.1 APTT 39.3 H pO2 37 VBG pH 7.41 VBG pCO2 55 VBG HCO3 30.8 VBG Total CO2 36.6 H VBG O2 Sat (Calc) 75.9 H VBG Base Excess 8.4 H VBG Potassium 3.8 Glucose 65 L Lactate 1.3 Sodium 131.0 L Potassium Chloride 97.0 L Carbon Dioxide Anion Gap BUN Creatinine Est GFR ( Amer) Est GFR (Non-Af Amer) POC Glucose (mg/dL) 33 L* Random Glucose Calcium Phosphorus Magnesium Total Bilirubin AST ALT Alkaline Phosphatase Total Creatine Kinase CK-MB (Mass) Troponin I Total Protein Albumin Globulin Albumin/Globulin Ratio Lipase Venous Blood Potassium 3.8 04/08/19 04/08/19 19:21 20:23 WBC RBC Hgb Hct MCV MCH MCHC RDW Plt Count MPV Neut % (Auto) Lymph % (Auto) [place] % (Auto) Eos % (Auto) Baso % (Auto) Neut # (Auto) Lymph # (Auto) [place]zie # (Auto) Eos # (Auto) Baso # (Auto) PT INR APTT pO2 VBG pH VBG pCO2 VBG HCO3 VBG Total CO2 VBG O2 Sat (Calc) VBG Base Excess VBG Potassium Glucose Lactate Sodium Potassium Chloride Carbon Dioxide Anion Gap BUN Creatinine Est GFR ( Amer) Est GFR (Non-Af Amer) POC Glucose (mg/dL) 173 H 140 H Random Glucose Calcium Phosphorus Magnesium Total Bilirubin AST ALT Alkaline Phosphatase Total Creatine Kinase CK-MB (Mass) Troponin I Total Protein Albumin Globulin Albumin/Globulin Ratio Lipase Venous Blood Potassium Assessment & Plan - Assessment and Plan (Free Text) Assessment: 78 y o male PMhx AML, pancytopenia was BiBEMS for abd pain and weakness since yesterday. Hypothermic and neutropenic on presentation. Plan: Abdominal pain/generalized weakness/neutropenic fever -Admit to med/surg -Broad-spectrum antibiotics -Lety hugger -Hypothermic, cont to monitor -Neutropenic precautions -NS @ 50 cc/hr -Blood cx pending -CXR read by me demonstrates hazy infiltrates b/l Thrombocytopenia -Plts 25,000 on admission -Transfuse platelets prn -Dr. Bobby consulted, recs appreciated Hx AML -Heme/onc, Dr. Bobby consulted, recs appreciated -S/p chemo Hx BPH -Home med Flomax held on admission Hx HTN -Home Lasix held on admission for low bp -Cont to trend DVT ppx CI'd 2/2 low platelets GI ppx: Protonix daily Code status: DNR/DNI Further recommendations as per Dr. Montoya, attending physician. Yosef Valladares DO PGY-1, Social Science Manager Pager #[phone]
[2019-04-09] MEDS ORDERED: Piperacillin/Tazobact 3.375 GM in Sodium Chloride 100 ML IVPB SCH (01:30)
[2019-04-09] MEDS ORDERED: Albumin Human 25% (12.5 gm/50 ml) IV ONE (01:32)
[2019-04-09 02:06] LABS: HEMOGLOBIN 9.2 g/dL (12.0-18.0); MEAN CELL VOLUME 90.3 fL (80.0-94.0); MEAN CORPUSCULAR HEMOGLOBIN 30.7 pg (27.0-31.0); MEAN PLATELET VOLUME 8.3 fL (7.2-11.7); RED CELL DISTRIBUTION WIDTH 17.4 % (11.5-14.5)
[2019-04-09 02:13] LABS: PLATELET COUNT 21 K/uL (130-400); WHITE BLOOD COUNT 0.1 K/uL (4.8-10.8)
[2019-04-09 02:41] LABS: ABG ALLEN TEST POS; ARTERIAL BLOOD GAS HCO3 32.1 mmol/L (21-28); ARTERIAL BLOOD GAS O2 SAT 95.7 % (95-98); ARTERIAL BLOOD GAS PCO2 52 mm/Hg (35-45); ARTERIAL BLOOD GAS PH 7.44 (7.35-7.45); ARTERIAL BLOOD GAS PO2 59 mm/Hg (80-100); ARTERIAL BLOOD GAS TCO2 36.9 mmol/L (22-28)
[2019-04-09 04:28] VITALS: BP 85/54; RESP 14; O2SAT 90
[2019-04-09 04:47] VITALS: PULSE 122
--- NOTE | 2019-04-09 06:01 | CP.PCM.PRO ---
Pronouncement of Note - Clinical Findings Physical Exam: No Response Verbal/Painful Stimuli, Absent Peripheral Puls es{Carotid & Femoral}, Absent Heart & Breath Sounds, No Pupillary Light Reflex, No Corneal Reflex, Pupils Fixed & Dilated, Absence of Vital Signs - Pronouncement Time Time of Pronouncement of : 05:56 - Notifications Pronouncement Notifications: Family Notified, Atending Notified (Dr. Montoya was left message that patient . ) - [place] [id number]
--- NOTE | 2019-04-09 06:16 | CP.PCM.DIS ---
Provider - Provider Date of Admission: 04/08/19 22:02 Attending physician: Andrzej Montoya Jr, MD Primary care physician: Dr. Montoya Consults: 04/08/19 21:53 Hematology Oncology Consult Routine Comment: Consulting Provider: Kartik Bobby Consulting Physician: Kartik Bobby Reason for Consult: hx of AML, pancytopenia Time Spent in preparation of Discharge (in minutes): 35 Diagnosis - Discharge Diagnosis (1) Hypotension Status: Acute (2) Thrombocytopenia Status: Acute (3) Abdominal pain Status: Acute (4) Weakness Status: Acute (5) Pancytopenia Status: Chronic (6) AML (acute myeloblastic leukemia) Status: Chronic Priority: High Hospital Course - Lab Results Lab Results: Most Recent Lab Values WBC 0.1 K/uL (4.8-10.8) L* D 04/09/19 01:59 RBC 3.00 Mil/uL (4.40-5.90) L 04/09/19 01:59 Hgb 9.2 g/dL (12.0-18.0) L 04/09/19 01:59 Hct 27.1 % (35.0-51.0) L 04/09/19 01:59 MCV 90.3 fL (80.0-94.0) 04/09/19 01:59 MCH 30.7 pg (27.0-31.0) 04/09/19 01:59 MCHC 34.0 g/dL (33.0-37.0) 04/09/19 01:59 RDW 17.4 % (11.5-14.5) H 04/09/19 01:59 Plt Count 21 K/uL (130-400) L* 04/09/19 01:59 MPV 8.3 fL (7.2-11.7) 04/09/19 01:59 Neut % (Auto) 43.9 % (50.0-75.0) L 04/08/19 18:45 Lymph % (Auto) 39.9 % (20.0-40.0) 04/08/19 18:45 [place] % (Auto) 15.9 % (0.0-10.0) H 04/08/19 18:45 Eos % (Auto) 0.0 % (0.0-4.0) 04/08/19 18:45 Baso % (Auto) 0.3 % (0.0-2.0) 04/08/19 18:45 Neut # (Auto) 0.1 K/uL (1.8-7.0) L 04/08/19 18:45 Lymph # (Auto) 0.1 K/uL (1.0-4.3) L 04/08/19 18:45 [place] # (Auto) 0.1 K/uL (0.0-0.8) 04/08/19 18:45 Eos # (Auto) 0.0 K/uL (0.0-0.7) 04/08/19 18:45 Baso # (Auto) 0.0 K/uL (0.0-0.2) 04/08/19 18:45 Total Counted Cancelled 04/09/19 01:59 Neutrophils % (Manual) Cancelled 04/09/19 01:59 Band Neutrophils % Cancelled 04/09/19 01:59 Lymphocytes % (Manual) Cancelled 04/09/19 01:59 Reactive Lymphs % Cancelled 04/09/19 01:59 Monocytes % (Manual) Cancelled 04/09/19 01:59 Eosinophils % (Manual) Cancelled 04/09/19 01:59 Basophils % (Manual) Cancelled 04/09/19 01:59 Metamyelocytes % Cancelled 04/09/19 01:59 Myelocytes % Cancelled 04/09/19 01:59 Promyelocytes % Cancelled 04/09/19 01:59 Blast Cells % Cancelled 04/09/19 01:59 Plasma Cell % (Manual) Cancelled 04/09/19 01:59 Nucleated RBC % Cancelled 04/09/19 01:59 Hypersegmented Polys Cancelled 04/09/19 01:59 Smudge Cells Cancelled 04/09/19 01:59 Toxic Granulation Cancelled 04/09/19 01:59 Dohle Bodies Cancelled 04/09/19 01:59 Nazanin Rods Cancelled 04/09/19 01:59 Platelet Estimate Cancelled 04/09/19 01:59 Plt Clumps, EDTA Cancelled 04/09/19 01:59 Large Platelets Cancelled 04/09/19 01:59 Giant Platelets Cancelled 04/09/19 01:59 RBC Morphology Cancelled 04/09/19 01:59 Polychromasia Cancelled 04/09/19 01:59 Hypochromasia (manual) Cancelled 04/09/19 01:59 Poikilocytosis (manual Cancelled 04/09/19 01:59 Basophilic Stippling Cancelled 04/09/19 01:59 Anisocytosis (manual) Cancelled 04/09/19 01:59 Microcytosis (manual) Cancelled 04/09/19 01:59 Macrocytosis (manual) Cancelled 04/09/19 01:59 Spherocytes Cancelled 04/09/19 01:59 Sickle Cells Cancelled 04/09/19 01:59 Target Cells Cancelled 04/09/19 01:59 Tear Drop Cells Cancelled 04/09/19 01:59 Ovalocytes Cancelled 04/09/19 01:59 Stomatocytes Cancelled 04/09/19 01:59 Helmet Cells Cancelled 04/09/19 01:59 [place] Bodies Cancelled 04/09/19 01:59 [place] Cells Cancelled 04/09/19 01:59 Acanthocytes (Spur) Cancelled 04/09/19 01:59 Rouleaux Cancelled 04/09/19 01:59 Schistocytes Cancelled 04/09/19 01:59 PT 22.5 SECONDS (9.7-12.2) H 04/08/19 18:45 INR 2.1 04/08/19 18:45 APTT 39.3 SECONDS (21-34) H 04/08/19 18:45 Puncture Site R rad 04/09/19 01:57 pCO2 52 mm/Hg (35-45) H 04/09/19 01:57 pO2 59 mm/Hg (80-100) L 04/09/19 01:57 HCO3 32.1 mmol/L (21-28) H 04/09/19 01:57 ABG pH 7.44 (7.35-7.45) 04/09/19 01:57 ABG Total CO2 36.9 mmol/L (22-28) H 04/09/19 01:57 ABG O2 Saturation 95.7 % (95-98) 04/09/19 01:57 ABG Base Excess 9.4 mmol/L (-2.0-3.0) H 04/09/19 01:57 Eyal Test Pos 04/09/19 01:57 ABG Potassium 3.5 mmol/L (3.6-5.2) L 04/09/19 01:57 VBG pH 7.41 (7.32-7.43) 04/08/19 19:15 VBG pCO2 55 mmHg (40-60) 04/08/19 19:15 VBG HCO3 30.8 mmol/L 04/08/19 19:15 VBG Total CO2 36.6 mmol/L (22-28) H 04/08/19 19:15 VBG O2 Sat (Calc) 75.9 % (40-65) H 04/08/19 19:15 VBG Base Excess 8.4 mmol/L (0.0-2.0) H 04/08/19 19:15 VBG Potassium 3.8 mmol/L (3.6-5.2) 04/08/19 19:15 Sodium 132.0 mmol/l (132-148) 04/09/19 01:57 Chloride 100.0 mmol/L (98-107) 04/09/19 01:57 Glucose 47 mg/dl (75-110) L 04/09/19 01:57 Lactate 1.4 mmol/L (0.7-2.1) 04/09/19 01:57 Liter Flow 4.0 04/09/19 01:57 Sodium 130 mmol/L (132-148) L 04/08/19 18:45 Potassium 3.9 mmol/L (3.6-5.2) 04/08/19 18:45 Chloride 93 mmol/L (98-107) L 04/08/19 18:45 Carbon Dioxide 33 mmol/L (22-30) H 04/08/19 18:45 Anion Gap 8 (10-20) L 04/08/19 18:45 BUN 45 mg/dL (9-20) H 04/08/19 18:45 Creatinine 0.8 mg/dL (0.8-1.5) 04/08/19 18:45 Est GFR ( Amer) > 60 04/08/19 18:45 Est GFR (Non-Af Amer) > 60 04/08/19 18:45 POC Glucose (mg/dL) 140 mg/dL (65-110) H 04/08/19 20:23 Random Glucose 65 mg/dL (75-110) L 04/08/19 18:45 Calcium 7.0 mg/dl (8.6-10.4) L 04/08/19 18:45 Phosphorus 4.7 mg/dL (2.5-4.5) H 04/08/19 18:45 Magnesium 1.8 mg/dL (1.6-2.3) 04/08/19 18:45 Total Bilirubin 0.8 mg/dL (0.2-1.3) 04/08/19 18:45 AST 42 U/L (17-59) 04/08/19 18:45 ALT 46 U/L (21-72) 04/08/19 18:45 Alkaline Phosphatase 68 U/L (38-126) 04/08/19 18:45 Total Creatine Kinase < 20 U/L (55-170) L 04/08/19 18:45 CK-MB (Mass) 2.05 ng/mL (0.0-3.38) 04/08/19 18:45 Troponin I < 0.0120 ng/mL (0.00-0.120) 04/08/19 18:45 Total Protein 3.7 g/dL (6.3-8.3) L 04/08/19 18:45 Albumin 1.5 g/dL (3.5-5.0) L 04/08/19 18:45 Globulin 2.2 gm/dL (2.2-3.9) 04/08/19 18:45 Albumin/Globulin Ratio 0.7 (1.0-2.1) L 04/08/19 18:45 Lipase 234 U/L (23-300) 04/08/19 18:45 Arterial Blood Potassium 3.5 mmol/L (3.6-5.2) L 04/09/19 01:57 Venous Blood Potassium 3.8 mmol/L (3.6-5.2) 04/08/19 19:15 - Hospital Course Hospital Course: HPI at time of admission: "78 y o male PMhx AML, pancytopenia was BiBEMS for abd pain and weakness since yesterday. at bedside provided most of history, states that pt went to Physical Therapy appt this am, initially was able to participate, but then started c/o headaches and reported having diffuse abdominal pain mostly in the lower abdomen b/l. Also states that pt has rash on b/l forearms that is the worst it has been, states the rash in the past has looked petechial-like when it flares up. Denied fevers, chills, chest pain, sob, n/v/d/c, urinary complaints, or other symptoms." Hospital Course: Pertinent imaging: CXR demonstrated hazy infiltrates b/l. Pt was placed on broad-spectrum antibiotics, placed on neutropenic precautions, given light fluid hydration. Dr Bobby was consulted for thrombocytopenia of 25,000 and hx AML. Home meds Lasix and Flomax were held on admission 2/2 hypotension. Pt was DNR/DNI status as per POLST form provided by on admission. Pt was pronounced at 5:56 am on 04/09/19. Condolences provided to family at bedside with RN present. Dr. Montoya notified and aware of expiration. This is a summary of the hospital course. For further details, please refer to the hospital EMR. Discharge Exam - Head Exam Head Exam: NORMOCEPHALIC Additional comments: Please see Pronouncement of note for details of final physical exam. Discharge Plan - Follow Up Plan Condition: Disposition: WITH WITHOUT AUTOPSY
[2019-04-09 06:39] VITALS: TEMP 96.6
--- NOTE | 2019-04-09 07:44 | RAD ---
Chest x-ray single frontal view HISTORY: Abdominal pain. Comparison 02/15/2019 FINDINGS: Persistent moderate to large right pleural effusion. Persistent small left pleural effusion. Confluent airspace consolidation and opacifications seen within the right mid to lower lung zone. Prominent diffuse increased interstitial lung markings bilaterally. Dense pleural parenchymal thickening and opacification seen throughout both lungs. Scattered nodular densities in both lung martines. Biapical pleural thickening with upper lobe granulomatous changes. Atherosclerotic calcification at the aortic knob. Cardiomegaly. Degenerative changes in the spine and shoulders. Impression: Persistent moderate to large right pleural effusion. Persistent small left pleural effusion. Confluent airspace consolidation and opacifications seen within the right mid to lower lung zone. Prominent diffuse increased interstitial lung markings bilaterally. Dense pleural parenchymal thickening and opacification seen throughout both lungs. Scattered nodular densities in both lung martines. Biapical pleural thickening with upper lobe granulomatous changes. Atherosclerotic calcification at the aortic knob. Cardiomegaly.
== END 2019-04-09 06:00 ==
LOC: C.ER 18:09 → C.9E 22:02 → C.5S 22:54
PROVIDERS: ADMIT Internal Medicine; ATTEND Internal Medicine
DX: I95.9 Hypotension, unspecified (principal); D61.818 Other pancytopenia; R53.1 Weakness; R10.84 Generalized abdominal pain; C92.00 Acute myeloblastic leukemia, not having achieved remission; R51 Headache; R21 Rash and other nonspecific skin eruption; N40.0 Benign prostatic hyperplasia without lower urinary tract symptoms; J44.9 Chronic obstructive pulmonary disease, unspecified; I10 Essential (primary) hypertension; Z79.899 Other long term (current) drug therapy; Z87.891 Personal history of nicotine dependence; Z66 Do not resuscitate
CPT/HCPCS: 36415; 71045; 80053; 82803; 82948; 83690; 83735; 84100; 84484; 85025; 85610; 85730; 87040; 99285; G0378; J2543; J7030; J7050; P9047